=== PATIENT | male | born 1950 | race Caucasian/White ===

== ENCOUNTER 2019-09-15 09:39 | Inpatient (IN) | payer MEDICARE, OTHER, SELFPAY ==
[2019-05-25 14:38] VITALS: BMI 44.9
[2019-09-15 09:40] VITALS: BP 132/75; PULSE 90; RESP 16; TEMP 36.4; BMI 46.6
--- NOTE | 2019-09-15 10:01 | ED.DCSUM_ITS ---
History of Present Illness Chief Complaint: Lower Extremity Injury Informant: Patient Narrative: Reportedly the patient was sent from podiatry to be admitted into the hospital. Accompanying him is a note from the security specialist. The notes that he is a diabetic with coronary artery disease but no known peripheral vascular disease. He has a history of peripheral neuropathy. In May he was put on amoxicillin for infection of the second and third right toe. states it would form a ca llus get better get worse and due to COVID has not been wanting to be in the doctor's office. They were seen by primary care on Saturday and set up with an appointment today. Reportedly had x-rays in the office and the concern was for osteomyelitis of the second and third toe. Patient has not had any fevers. Past Medical History - Allergies and Home Meds Allergies/Adverse Reactions: Allergies acetaminophen [From Vicodin] Adverse Reaction (Severe, Verified 09/15/19 09:43) Hives hydrocodone [From Vicodin] Adverse Reaction (Severe, Verified 09/15/19 09:43) Hives ramipril [From Altace] Adverse Reaction (Severe, Verified 09/15/19 09:43) Fast HR valsartan [From Diovan] Adverse Reaction (Severe, Verified 09/15/19 09:43) Fast HR Jhrwxip-Qut-Zgh Reductase Inhibitor Adverse Reaction (Intermediate, Verified 09/15/19 09:43) Muscle aches Primary Care Physician: Krishna Reynolds MD [Primary Care Provider] - Smoking Status: Current every day smoker Review of Systems General: Denies: Chills, Fever, Sweats Eyes: Denies: Visual changes - bilaterally, Diplopia ENT: Denies: Rhinorrhea, Sore throat Cardiovascular: Denies: Chest pain, Palpitations Respiratory: Denies: Dyspnea, Cough, Dyspnea on exertion Gastrointestinal: Denies: Abdominal pain, Nausea, Vomiting, Diarrhea, Melena, Hematochezia Genitourinary: Denies: Dysuria, Hematuria, Frequency Musculoskeletal: Reports: Extremity Pain. Denies: Back pain Skin: Reports: Wounds. Denies: Rash Neurological: Denies: Headache, Weakness, Numbness Physical Exam Vital Signs/Narrative: Vital Signs Temp Pulse Resp BP 09/15/19 09:40 97.5 F L 90 16 132/75 H Inital Vital Signs reviewed: Yes General: Well nourished, Well developed, Obese, No Acute Distress Head: Normocephalic, Atraumatic Eyes: Perrl, EOMI ENT: Moist mucous membranes, No rhinorrhea Neck: Supple, Nontender Cardiovascular: Regular rate, No murmurs, Irregular Respiratory: No distress, CTA bilaterally, Chest nontender Abdomen: Soft, Nontender, Nondistended, Normal bowel sounds Back: Nontender, Normal Inspection Extremities: - - There is sparse leg hair of the lower extremities. The right second and third distal tips of the toes show recent debridement. (Betadine soaked gauze was reapplied) Skin: Normal color, No rash Neurological: Alert, Oriented x3, Cranial nerves II-XII grossly intact, Normal Strength, Normal Sensation Psychological: Normal affect, Normal Mood Diagnostic/Tx/Re-eval Laboratory Last Values WBC 5.1 K/mm3 (4.4-11.0) 09/15/19 10:13 RBC 4.75 M/mm3 (4.6-6.2) 09/15/19 10:13 Hgb 13.7 g/dL (13.0-16.5) 09/15/19 10:13 Hct 43.3 % (40-54) 09/15/19 10:13 MCV 91.2 fL (80-94) 09/15/19 10:13 MCH 28.8 pg (27.0-32.0) 09/15/19 10:13 MCHC 31.6 g/dL (32-36) L 09/15/19 10:13 RDW Std Deviation 44.2 fl (35.1-43.9) H 09/15/19 10:13 RDW Coeff of Rene 13.1 % (11.6-14.6) 09/15/19 10:13 Plt Count 264 K/mm3 (150-450) 09/15/19 10:13 MPV 9.4 fl (6.2-12.0) 09/15/19 10:13 Immature Gran % (Auto) 0.600 % (0.0-0.9) 09/15/19 10:13 Neut % (Auto) 60.3 % (47-70) 09/15/19 10:13 Lymph % (Auto) 26.4 % (19-41) 09/15/19 10:13 [place] % (Auto) 10.1 % (0-10) H 09/15/19 10:13 Eos % (Auto) 2.0 % (0-5) 09/15/19 10:13 Baso % (Auto) 0.6 % (0-1) 09/15/19 10:13 Absolute Neuts (auto) 3.1 X10^3/uL (2.0-7.7) 09/15/19 10:13 Absolute Lymphs (auto) 1.34 X10^3/uL (0.83-4.51) 09/15/19 10:13 Nucleated RBC % 0 % (0-5) 09/15/19 10:13 ESR 11 mm/hr (0-20) 09/15/19 10:13 PT 14.8 SECONDS (11.7-14.9) 09/15/19 10:13 INR 1.2 09/15/19 10:13 APTT 28.9 Seconds (24.1-36.2) 09/15/19 10:13 Sodium 139 mmol/L (136-145) 09/15/19 10:13 Potassium 4.1 mmol/L (3.5-5.1) 09/15/19 10:13 Chloride 102 mmol/L (98-107) 09/15/19 10:13 Carbon Dioxide 30.0 mmol/L (21.0-32.0) 09/15/19 10:13 Anion Gap 7 (5-15) 09/15/19 10:13 BUN 16 mg/dL (7-18) 09/15/19 10:13 Creatinine 0.85 mg/dL (0.70-1.30) 09/15/19 10:13 Estim Creat Clear Calc 74.02 ml/min 09/15/19 10:13 Est GFR (MDRD) Af Amer 114 mL/min (>60) 09/15/19 10:13 Est GFR (MDRD) Non-Af 95 mL/min (>60) 09/15/19 10:13 BUN/Creatinine Ratio 18.8 RATIO (10-20) 09/15/19 10:13 Glucose 74 mg/dL (74-106) 09/15/19 10:13 Hemoglobin A1c 6.0 % (3.8-5.6) H 09/15/19 10:13 Lactic Acid 1.7 mmol/L (0.4-1.9) 09/15/19 10:13 Calcium 9.7 mg/dL (8.5-10.1) 09/15/19 10:13 Total Bilirubin 0.50 mg/dL (0.20-1.00) 09/15/19 10:13 AST 23 U/L (15-37) 09/15/19 10:13 ALT 35 U/L (16-61) 09/15/19 10:13 Alkaline Phosphatase 62 U/L (45-117) 09/15/19 10:13 C-React Prot Ext Range 4.69 mg/L (0.0-3.0) H 09/15/19 10:13 Total Protein 7.6 g/dL (6.4-8.2) 09/15/19 10:13 Albumin 3.5 g/dL (3.2-5.0) 09/15/19 10:13 Globulin 4.1 g/dL (2.2-4.2) 09/15/19 10:13 Albumin/Globulin Ratio 0.9 RATIO (0.9-2.4) 09/15/19 10:13 Clinical Impression(s) from Imaging Studies Lower Extremity MRI 09/15/19 11:01 IMPRESSION: Bone edema of the second distal phalanx with corresponding decreased T1 bone marrow signal suggestive of osteomyelitis. Bone edema of the third distal phalanx without corresponding decreased T1 bone marrow signal, possibly representing early osteomyelitis. Muscle atrophy consistent with peripheral neuropathy. Electronically Signed: Tae Chavez MD at 13:27 EDT Tel , Service support , ED Disposition - Plan for ED Patient: Disposition: Acute Care Hospital [facility] Diagnosis: Osteomyelitis of third toe of right foot, Osteomyelitis of second toe of right foot, Type 2 diabetes mellitus Referrals: Krishna Reynolds MD [Primary Care Provider] -
[2019-09-15 10:29] LABS: Erythrocyte Sedimentation Rate 11 mm/hr (0-20)
[2019-09-15 10:31] LABS: Absolute Lymphocyte Count 1.34 X10^3/uL (0.83-4.51); Absolute Neutrophil Count 3.1 X10^3/uL (2.0-7.7); Basophil# 0.03 X10^3/uL; Basophil% 0.6 % (0-1); Hematocrit 43.3 % (40-54); Hemoglobin 13.7 g/dL (13.0-16.5); Lymphocyte # 1.34 X10^3/ul (4.0); Lymphocyte % 26.4 % (19-41); Mean Corp Hgb Conc 31.6 g/dL (32-36); Mean Corpuscular Hgb 28.8 pg (27.0-32.0); Mean Corpuscular Volume 91.2 fL (80-94); Mean Platelet Vol. 9.4 fl (6.2-12.0); Monocyte# 0.51 X10^3/uL; Monocyte% 10.1 % (0-10); NRBC Flagged by Analyzer 0 % (0-5); Neutrophil # 3.06 X10^3/uL (2.7-7.7); Neutrophil % 60.3 % (47-70); Platelet Count 264 K/mm3 (150-450); RBC Distribution Width CV 13.1 % (11.6-14.6); RBC Distribution Width SD 44.2 fl (35.1-43.9); Red Blood Count 4.75 M/mm3 (4.6-6.2); White Blood Count 5.1 K/mm3 (4.4-11.0)
[2019-09-15 10:37] LABS: International Normalized Ratio 1.2; Partial Thromboplast Time 28.9 Seconds (24.1-36.2); Prothrombin Time (Protime)PT. 14.8 SECONDS (11.7-14.9)
[2019-09-15 10:45] LABS: ALB/GLOB Ratio 0.9 RATIO (0.9-2.4); AST(SGOT) 23 U/L (15-37); Alanine Aminotransfer ALT/SGPT 35 U/L (16-61); Albumin, Serum 3.5 g/dL (3.2-5.0); Alkaline Phosphatase 62 U/L (45-117); Anion Gap 7 (5-15); BUN 16 mg/dL (7-18); BUN/Creat Ratio 18.8 RATIO (10-20); CRP 4.69 mg/L (0.0-3.0); Calcium,Total 9.7 mg/dL (8.5-10.1); Chloride 102 mmol/L (98-107); Creatinine, Serum 0.85 mg/dL (0.70-1.30); EST Glomerular Filtration Rate 95 mL/min (>60); Est Glom Filt Rate - Afr Amer 114 mL/min (>60); Estimated Creatinine Clearance 74.02 ml/min; Globulin 4.1 g/dL (2.2-4.2); Glucose 74 mg/dL (74-106); Lactic Acid 1.7 mmol/L (0.4-1.9); Potassium 4.1 mmol/L (3.5-5.1); Protein, Total 7.6 g/dL (6.4-8.2); Sodium Level 139 mmol/L (136-145)
--- NOTE | 2019-09-15 10:54 | NURSING ---
DR CROOKS FOR DR GUAMAN
--- NOTE | 2019-09-15 11:01 | MRI_ITS ---
STUDY: MRI RIGHT FOREFOOT WITHOUT CONTRAST REASON FOR EXAM: Open wounds for 3-4 months, evaluate for osteomyelitis of the second and third toes. TECHNIQUE: Standardized fat and water weighted pulse sequences were obtained in all 3 orthogonal planes. COMPARISON: None. FINDINGS: Normal metatarsophalangeal joint of the hallux. Normal tibial and fibular sesamoids, with normal sesamoids-first metatarsal articulations. Normal interphalangeal joint of the hallux. Normal proximal and distal phalanges of the great toe. Normal medial and lateral heads of the flexor hallucis brevis tendons. Normal flexor and extensor hallucis longus tendons. Normal second through fifth metatarsophalangeal (MTP) joints. Normal interphalangeal joints of the second through fifth toes. There is bone edema of the second distal phalanx (inversion recovery sagittal image 13) with decreased bone marrow signal (T1 sagittal image 13) suggestive of osteomyelitis. There is bone edema of the third distal phalanx (inversion recovery sagittal image 9) without decreased T1 bone marrow signal (T1 sagittal image 13), possibly representing early osteomyelitis. Normal phalanges of the fourth and fifth digits. There are hammertoe deformities of the lesser toes. Normal first through fourth intermetatarsal spaces. Normal flexor and extensor tendons of the second through fifth toes. Normal visualized metatarsi. There is fat replacement of the intrinsic muscles of the forefoot consistent with peripheral arthropathy. There is edema in the dorsal subcutis adipose space of the forefoot. There is no focal fluid collection to suggest soft tissue abscess. MRI/Lower Ext/No Jt/w/o IMPRESSION: Bone edema of the second distal phalanx with corresponding decreased T1 bone marrow signal suggestive of osteomyelitis. Bone edema of the third distal phalanx without corresponding decreased T1 bone marrow signal, possibly representing early osteomyelitis. Muscle atrophy consistent with peripheral neuropathy. Electronically Signed: Tae Chavez MD at 13:27 EDT Tel , Service support ,
[2019-09-15 11:23] VITALS: BP 123/82; PULSE 77; RESP 16; TEMP 37.1; O2SAT 97
--- NOTE | 2019-09-15 14:05 | NURSING ---
321 TERELETESKY OSTEOMYELITIS OF RT 2ND AND 3RD TOES
[2019-09-15 14:11] VITALS: BP 123/82; PULSE 77; RESP 16; TEMP 37.1; O2SAT 97
[2019-09-15 14:26] VITALS: BP 131/78; PULSE 92; RESP 18; TEMP 36.9; O2SAT 98; BMI 46.6
--- NOTE | 2019-09-15 15:47 | ART_ITS ---
Reason For Study: PVD Procedure A bilateral lower extremity continuous wave Doppler with analog waveform analysis,segmental pressures,and ankle brachial indexes without exercise. Left Segmental Pressures BOTTLE CLEANER and DPA are both noncompressible. Left brachial= 133mmHg. Left digit = 148 mmHg. The left dorsalis pedis waveforms are triphasic. The left posterior tibial artery waveforms are triphasic. Right Segmental Pressures BOTTLE CLEANER and DPA are both noncompressible. Right digit = 85. mmHg. The right dorsalis pedis waveforms are triphasic. The right posterior tibial artery waveforms are triphasic. Indices The right digital-brachial index is .64. The left digital-brachial index is 1.11. Interpretation Summary Non compressible bilateral posterior tibial and dorsalis pedis vessels making non-invasive interpretation less accurate. Doppler waveforms are triphasic bilaterally Volume pulse recordings are maintained bilaterally suggesting a more mild degree of large vessel occlusive disease Right digital waveforms are depressed consistent with small vessel disease--clinical correlation would be appropriate. Ordering Physician: Mikhail Hernandez Performed By: TOI GALEANA Radha
--- NOTE | 2019-09-15 15:58 | HP.PCM_ITS ---
Problem List (1) Osteomyelitis of third toe of right foot Status: Acute (2) Osteomyelitis of second toe of right foot Status: Acute (3) Pure hypercholesterolemia Status: Chronic (4) GERD (gastroesophageal reflux disease) Status: Chronic (5) Type 2 diabetes mellitus Status: Chronic (6) Essential hypertension Status: Chronic (7) Atherosclerotic heart disease of [place] coronary artery without angina pectoris Status: Chronic Qualifiers: [place] vs. 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 The patient is a 69 year old M who presents emergency room due to right second and third distal toe wounds. Patient states he initially noticed distal d iscoloration in April. He was referred to podiatry however due to COVID he was unable to have office visit with podiatry. His primary care provider placed him on oral antibiotics. He was seen today for his first podiatry appointment with Dr. Gary Chandler. Patient reports his toe wounds were debrided and he was then referred to the emergency room for further evaluation due to suspected osteomyelitis. He denies fever, chills. He has a history of neuropathy and denies any pain. He has a past medical history of CAD with history of PCI, hypertension, hyperlipidemia, paroxysmal atrial fibrillation, type 2 diabetes mellitus with peripheral neuropathy. Past Medical History Past Medical History (Chronic Problems): Chronic Problems (Last Reviewed 05/25/19 @ 14:43 by Brea Castañeda) Pure hypercholesterolemia (Chronic) GERD (gastroesophageal reflux disease) (Chronic) Type 2 diabetes mellitus (Chronic) Essential hypertension (Chronic) Atherosclerotic heart disease of [place] coronary artery without angina pectoris (Chronic) Presence of coronary angioplasty implant and graft (Chronic ~06/2007) PTCA with DILIA to CFX 2nd marginal 06/30 Presence of stent in coronary artery (Chronic ~06/2007) PTCA with DILIA to CFX 2nd marginal 06/30 Paroxysmal atrial fibrillation (Chronic) Left atrial enlargement (Chronic) Tachycardia (Chronic) 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) Medical History: Medical History (Last Reviewed 05/25/19 @ 14:43 by Brea Castañeda) Pure hypercholesterolemia (Chronic) E78.00 GERD (gastroesophageal reflux disease) (Chronic) K21.9 Type 2 diabetes mellitus (Chronic) E11.9 Essential hypertension (Chronic) I10 Atherosclerotic heart disease of [place] coronary artery without angina pectoris (Chronic) I25.10 Presence of stent in coronary artery (Chronic) Onset Date: ~06/2007 Z95.5 PTCA with DILIA to CFX 2nd marginal 06/30 Paroxysmal atrial fibrillation (Chronic) I48.0 Diabetes mellitus (Inactive) E11.9 Allergies acetaminophen [From Vicodin] Adverse Reaction (Severe, Verified 09/15/19 09:43) Hives hydrocodone [From Vicodin] Adverse Reaction (Severe, Verified 09/15/19 09:43) Hives ramipril [From Altace] Adverse Reaction (Severe, Verified 09/15/19 09:43) Fast HR valsartan [From Diovan] Adverse Reaction (Severe, Verified 09/15/19 09:43) Fast HR Jpeilfp-Gpa-Esq Reductase Inhibitor Adverse Reaction (Intermediate, Verified 09/15/19 09:43) Muscle aches Home Medications: Ambulatory Orders Medication Instructions Recorded ascorbic acid (vitamin C) 1,000 mg 1,000 mg PO DAILY tab 05/30/17 tablet aspirin 325 mg tablet 325 mg PO DAILY tab 05/30/17 glimepiride 4 mg tablet 4 mg PO BID tab 05/30/17 metformin 500 mg tablet 1,000 mg PO DAILY 05/30/17 nitroglycerin 0.4 mg sublingual 0.4 mg SUBLINGUAL Q5M PRN 05/30/17 tablet biotin 1 mg tablet 1 mg PO DAILY 05/25/19 insulin glargine 100 unit/mL (3 56 unit SC QHS ml 05/25/19 mL) subcutaneous pen omega-3 fatty acids 1,000 mg 3,000 mg PO DAILY cap 05/25/19 capsule Amlodipine Besylate [Norvasc] 5 mg PO DAILY 09/15/19 Doxazosin Mesylate 1 mg PO QHS 09/15/19 Lisinopril/Hydrochlorothiazide 1 tab PO BID 09/15/19 [Lisinopril-Hctz 20-12.5 mg Tab] Metformin HCl 1,500 mg PO DAILY 09/15/19 Metoprolol Tartrate [Lopressor 50 mg PO BID 09/15/19 (beta veronique)] Multivitamin with Minerals 1 tab PO DAILY 09/15/19 [Multiple Vitamin] Surgical History: Surgical History (Last Reviewed 09/15/19 @ 16:14 by DELANO Sterling) Presence of coronary angioplasty implant and graft (Chronic) Onset Date: ~06/2007 Z95.5 PTCA with DILIA to CFX 2nd marginal 06/30 History of tonsillectomy and adenoidectomy Z98.890 History of vasectomy Z98.52 Coronary angioplasty status (Inactive) Z98.61 PTCA with DILIA to CFX 2nd marginal paroxysmal atrial fib 06/30 Surgical History: - - Bilateral elbow surgery Psychiatric History: No pertinent psych hx Lives: Spouse/ Significant Other Smoking Status: Never smoker Tobacco Use: Chew Alcohol: Occasional Drugs: None - *Family History Maternal Family History: Family History (Last Reviewed 05/25/19 @ 14:43 by Brea Castañeda) Other Family history of CVA Family history of hyperlipidemia Family history of hypertension History Items: Heart Disease, Stroke Paternal Family History: Family History (Last Reviewed 05/25/19 @ 14:43 by Brea Castañeda) Other Family history of CVA Family history of hyperlipidemia Family history of hypertension History Items: Heart Disease Review of Systems Constitutional: Denies: Chills, Fever, Weight Change HEENT: Denies: Head Aches, Sinus Congestion, Sinus Drainage Cardiovascular: Denies: Chest Pain, Palpitations Respiratory: Denies: Cough, Shortness of breath at rest, Sputum production Gastrointestinal: Denies: Abdominal Pain, Nausea, Vomiting Genitourinary: Denies: Dysuria Musculoskeletal: Denies: Joint Pain, Joint Tenderness Skin: Reports: Wounds - Right second and third distal toes. Denies: Rash Neurological: Denies: Numbness, Tingling, Focal weakness Psychiatric: Denies: Anxiety, Depression, Homicidal Ideations, Suicidal Ideations Hematologic/ Lymphatic: Denies: Easy Bruising, Easy Bleeding VTE Information - Inpt Only VTE Present on Admission: No VTE Mechan Device Prophylaxis: None VTE Pharm Prophylaxis ordered?: Yes Patient Problems: Active and Suspected Problems (Last Reviewed 05/25/19 @ 14:43 by Brea Castañeda) Osteomyelitis of third toe of right foot (Acute) Osteomyelitis of second toe of right foot (Acute) - Physical Exam Vitals/I&O's: Vital Signs Temp Pulse Resp BP Pulse Ox 98.5 F 92 18 131/78 H 98 09/15/19 14:26 09/15/19 14:26 09/15/19 14:26 09/15/19 14:26 09/15/19 14:26 Oxygen Delivery Method Room Air Weight: 289 lb Body Mass Index (BMI) 46.6 Intake and Output for Last 24 Hours 09/13/19 09/14/19 09/15/19 23:59 23:59 23:59 Intake Total 640 / 640 Balance 640 / 640 General: Alert, Oriented x3, Cooperative HEENT: Atraumatic, PERRLA, EOMI, Normocephalic Neck: Supple, No JVD, Negative Carotid Bruits Lungs: Clear to auscultation, Diminished Cardiovascular: Regular rate, No murmurs Abdomen: Bowel Sounds Present, Soft, Non Tender, Non-Distended, Obese Extremities: No clubbing, No cyanosis, No edema, Capillary Refill Less than 3 Seconds Skin: No rashes, No breakdown, - - Right second and third toe wounds. Musculoskeletal: No Tenderness to Palpation of Joints or Extremities Neurological: Cranial nerves II-XII grossly intact, Neuro grossly intact Psych/Mental Status: Normal Affect, Appropriate Laboratory Results 09/15/19 10:13: WBC 5.1, RBC 4.75, Hgb 13.7, Hct 43.3, MCV 91.2, MCH 28.8, MCHC 31.6 L, RDW Std Deviation 44.2 H, RDW Coeff of Rene 13.1, Plt Count 264, MPV 9.4, Immature Gran % (Auto) 0.600, Neut % (Auto) 60.3, Lymph % (Auto) 26.4, [place] % (Auto) 10.1 H, Eos % (Auto) 2.0, Baso % (Auto) 0.6, Absolute Neuts (auto) 3.1, Absolute Lymphs (auto) 1.34, Nucleated RBC % 0, ESR 11 09/15/19 10:13: PT 14.8, INR 1.2, APTT 28.9 09/15/19 10:13: Sodium 139, Potassium 4.1, Chloride 102, Carbon Dioxide 30.0, Anion Gap 7, BUN 16, Creatinine 0.85, Estim Creat Clear Calc 74.02, Est GFR (MDRD) Af Amer 114, Est GFR (MDRD) Non-Af 95, BUN/Creatinine Ratio 18.8, Glucose 74, Calcium 9.7, Total Bilirubin 0.50, AST 23, ALT 35, Alkaline Phosphatase 62, C-React Prot Ext Range 4.69 H, Total Protein 7.6, Albumin 3.5, Globulin 4.1, Albumin/Globulin Ratio 0.9 09/15/19 10:13: Lactic Acid 1.7 09/15/19 10:13: Hemoglobin A1c 6.0 H Current Medications Acetaminophen (Tylenol) 650 mg PO Q6H PRN PRN PRN Reason: Pain Score 1-10/Temp > 100.7 F Amlodipine Besylate (Norvasc) 5 mg PO DAILY [facility] Ascorbic Acid (Vitamin C) 1,000 mg PO DAILY [facility] Aspirin (Aspirin) 325 mg PO DAILYCM [facility] Dextrose (D50w Syringe) 0 gm IV X1 PRN; Protocol PRN Reason: Hypoglycemia Doxazosin Mesylate (Cardura) 1 mg PO QHS [facility] Glimepiride (Amaryl) 4 mg PO BIDCM [facility] Glucagon () 1 mg IM .X1 PRN PRN Reason: Hypoglycemia Heparin Sodium (Porcine) (Heparin Na) 5,000 unit SC Q12 [facility] Hydrochlorothiazide () 12.5 mg PO DAILY [facility] Piperacillin Sod/Tazobactam (Sod 3.375 gm/ Sodium Chloride) 50 mls @ 12.5 mls/hr IV Q8 [facility] Vancomycin IV Pharmacy to Dose (1 ea/ Sodium Chloride) 500 mls @ 250 mls/hr IV X1 PRN; Protocol PRN Reason: Rx to Dose Insulin Human Lispro (Humalog Kwikpen (Bkc)) 0 unit SC ACHS [facility]; Protocol Lisinopril (Zestril) 20 mg PO DAILY [facility] Metformin HCl (Glucophage) 1,000 mg PO DAILYCM [facility] Metformin HCl (Glucophage) 1,500 mg PO DINNER [facility] Metoprolol Tartrate (Lopressor (Beta Veronique)) 50 mg PO BID [facility] Assessment/Plan All Active Problems (Last Reviewed 05/25/19 @ 14:43 by Brea Castañeda) Osteomyelitis of third toe of right foot (Acute) Osteomyelitis of second toe of right foot (Acute) 1. Osteomyelitis of second and third toe, right foot-Dr. Gary Chandler consulted with plan for partial amputation. Continue IV vancomycin and IV Zosyn. Wound and blood cultures pending. Afebrile, no leukocytosis. FELTON/lower extremity arterial exam ordered. ID consulted. Obtain pre-op EKG. 2. CAD with history of PCI-follows with Dr. Deluna. Continue aspirin. Refuses statin. Continue beta-veronique. Patient underwent echo and stress test 2016 which were unremarkable. EF per echo 60%. 3. Hypertension-stable, continue amlodipine, lisinopril, HCTZ, metoprolol regimen. 4. Hyperlipidemia-refuses statin. 5. Paroxysmal atrial fibrillation-has refused anticoagulation in the past. Continue aspirin 325 mg daily. Continue metoprolol. 6. Type 2 diabetes mellitus with peripheral neuropathy-hold oral regimen. Accu- Cheks with sliding scale insulin. 7. Suspected JAMES-patient reports he has refused sleep study in the past as he will not wear a mask. Encouraged sleep study as outpatient. 8. Obesity-encouraged diet lifestyle modifications. DVT prophylaxis- Heparin sc This patient was seen by DELANO Sterling under the supervision of Dr. Hernandez.
--- NOTE | 2019-09-15 16:08 | PCM.RX.CS ---
Consult Pharmacy has been consulted to manage selected antiobiotic: Vancomycin Type of Consult: New start Suspected Infection: Osteomyelitis Labs: Sodium 139 mmol/L (136-145) 09/15/19 10:13 Potassium 4.1 mmol/L (3.5-5.1) 09/15/19 10:13 Chloride 102 mmol/L (98-107) 09/15/19 10:13 Carbon Dioxide 30.0 mmol/L (21.0-32.0) 09/15/19 10:13 Anion Gap 7 (5-15) 09/15/19 10:13 BUN 16 mg/dL (7-18) 09/15/19 10:13 Creatinine 0.85 mg/dL (0.70-1.30) 09/15/19 10:13 Est GFR (MDRD) Af Amer 114 mL/min (>60) 09/15/19 10:13 Est GFR (MDRD) Non-Af 95 mL/min (>60) 09/15/19 10:13 BUN/Creatinine Ratio 18.8 RATIO (10-20) 09/15/19 10:13 Glucose 74 mg/dL (74-106) 09/15/19 10:13 Goal Trough: 15-20 mcg/mL Pharmacy Plan for Drug Dosing: NEW START IV VANCOMYCIN Consulting Physician: Mary Indication: Rule out osteomyelitis of the 2nd/3rd right toe Goal Trough: 15-20 SrCr: 0.85 CrCl: 105 mL/min (using AdjBW = 90.7kg) Comments: Vacnomycin 2g IV x1 dose administered in the ED 09/15/19 @1316 Vancomcyin Dose: 1500mg IV Q8hr to start 09/15/19 @2100 Pending Level: prior to 4th dose per protocol 09/16/19 @1230 Pharmacy Service will continue to monitor and adjust dosing as required.
--- NOTE | 2019-09-15 16:15 | PCM.CONS.GEN ---
Reason for Consult Date of Consultation: 09/15/19 Reason for Consultation: 1. Diabetes mellitus type 2 with polyneuropathy. 2. Diabetes mellitus type 2 with foot ulcer. 3. Nonpressure ulcer right second toe down to including level of bone with necrosis of bone. 4. Nonpressure ulcer right third toe toe down to including level of bone with necrosis of bone. 5. Peripheral neuropathy History of Present Illness: The patient is a 69 year old M with a past medical history significant of diabetes mellitus type 2 polyneuropathy, peripheral vascular disease, atrial fibrillation, and other comorbidities who presented to my office today, September 15, 2019 with complaints of pain and swelling of his right foot second and third toes. Patient presented with his , who was present at bedside during entire office visit. After verbal questioning, patient and patient's stated that the patient is a diabetic, and began to experience pain in his second and third toes of his right foot approximately 1 month ago. According to the patient's , there are wounds present on the second and third toe. There was drainage over this past month, and patient presented to his primary care physician, who prescribed him oral antibiotics. Patient's states that she has been performing local wound care. Due to the increased swelling and increased pain, they came in today for further evaluation. According to the patient, he did not want to come to the office any earlier because of coronavirus. Patient states that his right foot second and third toes are painful. After seeing the patient in the office and performing a debridement of the right foot second and third toe, the distal phalanx of each of the toes appeared exposed with evidence of necrosis. I discussed with them at that time that due to the wounds that are present and the suspicion of acute osteomyelitis, I recommended that they be sent to the emergency department for admission and work-up of osteomyelitis. They were agreeable at that time, and reported to the emergency department after the office visit. A wound culture was taken in the office, which they brought with them for evaluation. Laboratory analysis was performed while in the emergency department, revealing no signs of systemic infection. A MRI was performed of the right foot while at the emergency department, revealing osteomyelitis of the distal phalanges of the second and third toe of the right foot. Due to these findings, the patient was admitted for further evaluation. After verbal questioning, patient admits to improved pain of his right foot. Patient denies any other acute complaints at this time. Currently, patient denies fever, chills, nausea, vomiting, shortness of breath, chest pain. Patient denies right calf pain. [] Past Medical History Past Medical History (Chronic Problems): Chronic Problems (Last Reviewed 05/25/19 @ 14:43 by Brea Castañeda) Pure hypercholesterolemia (Chronic) GERD (gastroesophageal reflux disease) (Chronic) Type 2 diabetes mellitus (Chronic) Essential hypertension (Chronic) Atherosclerotic heart disease of [place] coronary artery without angina pectoris (Chronic) Presence of coronary angioplasty implant and graft (Chronic ~06/2007) PTCA with DILIA to CFX 2nd marginal 06/30 Presence of stent in coronary artery (Chronic ~06/2007) PTCA with DILIA to CFX marginal 06/30 Paroxysmal atrial fibrillation (Chronic) Left atrial enlargement (Chronic) Tachycardia (Chronic) Other long term acute care registered nurse (current) drug therapy (Chronic) Medical History: Medical History (Last Reviewed 05/25/19 @ 14:43 by Brea Castañeda) Pure hypercholesterolemia (Chronic) E78.00 GERD (gastroesophageal reflux disease) (Chronic) K21.9 Type 2 diabetes mellitus (Chronic) E11.9 Essential hypertension (Chronic) I10 Atherosclerotic heart disease of [place] coronary artery without angina pectoris (Chronic) I25.10 Presence of stent in coronary artery (Chronic) Onset Date: ~06/2007 Z95.5 PTCA with DILIA to CFX marginal 06/30 Paroxysmal atrial fibrillation (Chronic) I48.0 Diabetes mellitus (Inactive) E11.9 Allergies hydrocodone [From Vicodin] Adverse Reaction (Severe, Verified 09/15/19 09:43) Hives ramipril [From Altace] Adverse Reaction (Severe, Verified 09/15/19 09:43) Fast HR valsartan [From Diovan] Adverse Reaction (Severe, Verified 09/15/19 09:43) Fast HR Jnvpvfe-Umb-Rom Reductase Inhibitor Adverse Reaction (Intermediate, Verified 09/15/19 09:43) Muscle aches Home Medications: Ambulatory Orders Medication Instructions Recorded ascorbic acid (vitamin C) 1,000 mg 1,000 mg PO DAILY tab 05/30/17 tablet aspirin 325 mg tablet 325 mg PO DAILY tab 05/30/17 glimepiride 4 mg tablet 4 mg PO BID tab 05/30/17 metformin 500 mg tablet 1,000 mg PO DAILY 05/30/17 nitroglycerin 0.4 mg sublingual 0.4 mg SUBLINGUAL Q5M PRN 05/30/17 tablet biotin 1 mg tablet 1 mg PO DAILY 05/25/19 insulin glargine 100 unit/mL (3 56 unit SC QHS ml 05/25/19 mL) subcutaneous pen omega-3 fatty acids 1,000 mg 3,000 mg PO DAILY cap 05/25/19 capsule Amlodipine Besylate [Norvasc] 5 mg PO DAILY 09/15/19 Doxazosin Mesylate 1 mg PO QHS 09/15/19 Lisinopril/Hydrochlorothiazide 1 tab PO BID 09/15/19 [Lisinopril-Hctz 20-12.5 mg Tab] Metformin HCl 1,500 mg PO DAILY 09/15/19 Metoprolol Tartrate [Lopressor 50 mg PO BID 09/15/19 (beta veronique)] Multivitamin with Minerals 1 tab PO DAILY 09/15/19 [Multiple Vitamin] Surgical History: Surgical History (Last Reviewed 09/15/19 @ 16:14 by DELANO Sterling) Presence of coronary angioplasty implant and graft (Chronic) Onset Date: ~06/2007 Z95.5 PTCA with DILIA to CFX 2nd marginal 06/30 History of tonsillectomy and adenoidectomy Z98.890 History of vasectomy Z98.52 Coronary angioplasty status (Inactive) Z98.61 PTCA with DILIA to CFX 2nd marginal paroxysmal atrial fib 06/30 Surgical History: - - cardiac stent placement Psychiatric History: No pertinent psych hx Lives: Spouse/ Significant Other Smoking Status: Never smoker Tobacco Use: Chew Alcohol: Occasional Drugs: None Review of Systems Constitutional: Denies: Anorexia, Chills, Fever, Night Sweats Eyes: Denies: Blurred vision, Cataracts HEENT: Denies: Difficulty Hearing, Difficulty Swallowing, Dysphasia, Ear Pain, Eye Pain, Head Aches Cardiovascular: Denies: Chest Pain, Claudication, Chest Pressure, Chest Tightness, Edema Respiratory: Reports: Cough, Shortness of breath upon exertion Gastrointestinal: Denies: Abdominal Pain, Constipation, Diarrhea, Dyspepsia Genitourinary: Denies: Dysuria, Frequency Musculoskeletal: Reports: Foot Pain - right foot second and third toes Skin: Reports: Lesions - right foot second and third toe, Wounds - right foot second and third toe Neurological: Reports: Balance problems, Numbness - B/L peripheral neuropathy Psychiatric: Denies: Anxiety, Depression Endocrine: Reports: Polydipsia, Polyuria Patient Problems: Active and Suspected Problems (Last Reviewed 05/25/19 @ 14:43 by Brea Castañeda) Osteomyelitis of third toe of right foot (Acute) Osteomyelitis of second toe of right foot (Acute) Subjective: Patient seen at bedside resting comfortably. Patient presents with his , who is present at bedside. Patient denies any pain to his right second and third toes at this time. Patient states that since being admitted, has been started on IV antibiotics. Patient denies any other acute complaints at this time. Currently, patient denies fever, chills, nausea, vomiting, shortness of breath, chest pain. Patient denies right calf pain. Objective: Lower extremity physical exam: Vascular: Nonpalpable dorsalis pedis and posterior tibial pulse bilaterally. Capillary fill time is less than 5 seconds to all digits. Temperature gradient is within normal limits bilaterally. Minimal nonpitting edema surrounding the second and third digit of the right foot. No other areas of edema noted. Neurological: Gross and protective sensation are absent from the digits up to the ankle bilaterally and diminished from the ankle to the tibial tuberosity bilaterally. Musculoskeletal: Muscle strength is 5 out of 5 bilaterally of all crural compartments. 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 Right second toe: Ulceration noted on the plantar distal aspect of the second digit of the right foot. Ulceration has hyperkeratotic edges with a fibro-granular base. Of the ulceration, there is no fluctuance, no crepitus, but positive malodor. There is positive serosanguineous drainage. There is no purulence. There is edema and periwound erythema. There is positive probing to the distal phalanx. There is tunneling to the plantar aspect of the distal phalanx. There is no undermining and no tracking. Right third toe: Ulceration noted on the plantar distal aspect of the third digit of the right foot. Ulceration has hyperkeratotic edges with a fibro-granular base. Of the ulceration, there is no fluctuance, no crepitus, but positive malodor. There is positive serosanguineous drainage. There is no purulence. There is edema and periwound erythema. There is positive probing to the distal phalanx. There is tunneling to the plantar aspect of the distal phalanx. There is no undermining and no tracking. - Physical Exam Vitals/I&O's: Vital Signs Temp Pulse Resp BP Pulse Ox 98.5 F 92 18 131/78 H 98 09/15/19 14:26 09/15/19 14:26 09/15/19 14:26 09/15/19 14:26 09/15/19 14:26 Oxygen Delivery Method Room Air Weight: 131.088 kg Body Mass Index (BMI) 46.6 Intake and Output for Last 24 Hours 09/13/19 09/14/19 09/15/19 23:59 23:59 23:59 Intake Total 640 / 640 Balance 640 / 640 General: Alert, Oriented x3, Cooperative, No apparent distress HEENT: Atraumatic, PERRLA Oral: Moist Mucosa Neck: Supple Lungs: Clear to auscultation, Normal air movement, Rhonchi Cardiovascular: Irregular Rate Abdomen: Bowel Sounds Present, Soft, Obese Extremities: No Calf Tenderness, Diminished Peripheral Pulses Skin: Ulcer/ Wound - as described above Musculoskeletal: No Tenderness to Palpation of Joints or Extremities Neurological: Motor Exam 5/5 strength throughout, - - Sensation to B/L lower extremities absent to light touch and pain Psych/Mental Status: Alert and oriented to time, place, person, mood and affect Laboratory Results 09/15/19 10:13: WBC 5.1, RBC 4.75, Hgb 13.7, Hct 43.3, MCV 91.2, MCH 28.8, MCHC 31.6 L, RDW Std Deviation 44.2 H, RDW Coeff of Rene 13.1, Plt Count 264, MPV 9.4, Immature Gran % (Auto) 0.600, Neut % (Auto) 60.3, Lymph % (Auto) 26.4, [place] % (Auto) 10.1 H, Eos % (Auto) 2.0, Baso % (Auto) 0.6, Absolute Neuts (auto) 3.1, Absolute Lymphs (auto) 1.34, Nucleated RBC % 0, ESR 11 09/15/19 10:13: PT 14.8, INR 1.2, APTT 28.9 09/15/19 10:13: Sodium 139, Potassium 4.1, Chloride 102, Carbon Dioxide 30.0, Anion Gap 7, BUN 16, Creatinine 0.85, Estim Creat Clear Calc 74.02, Est GFR (MDRD) Af Amer 114, Est GFR (MDRD) Non-Af 95, BUN/Creatinine Ratio 18.8, Glucose 74, Calcium 9.7, Total Bilirubin 0.50, AST 23, ALT 35, Alkaline Phosphatase 62, C-React Prot Ext Range 4.69 H, Total Protein 7.6, Albumin 3.5, Globulin 4.1, Albumin/Globulin Ratio 0.9 09/15/19 10:13: Lactic Acid 1.7 09/15/19 10:13: Hemoglobin A1c 6.0 H STUDY: MRI RIGHT FOREFOOT WITHOUT CONTRAST taken on 09/15/2019 REASON FOR EXAM: Open wounds for 3-4 months, evaluate for osteomyelitis of the second and third toes. TECHNIQUE: Standardized fat and water weighted pulse sequences were obtained in all 3 orthogonal planes. COMPARISON: None. FINDINGS: Normal metatarsophalangeal joint of the hallux. Normal tibial and fibular sesamoids, with normal sesamoids-first metatarsal articulations. Normal interphalangeal joint of the hallux. Normal proximal and distal phalanges of the great toe. Normal medial and lateral heads of the flexor hallucis brevis tendons. Normal flexor and extensor hallucis longus tendons. Normal second through fifth metatarsophalangeal (MTP) joints. Normal interphalangeal joints of the second through fifth toes. There is bone edema of the second distal phalanx (inversion recovery sagittal image 13) with decreased bone marrow signal (T1 sagittal image 13) suggestive of osteomyelitis. There is bone edema of the third distal phalanx (inversion recovery sagittal image 9) without decreased T1 bone marrow signal (T1 sagittal image 13), possibly representing early osteomyelitis. Normal phalanges of the fourth and fifth digits. There are hammertoe deformities of the lesser toes. Normal first through fourth intermetatarsal spaces. Normal flexor and extensor tendons of the second through fifth toes. Normal visualized metatarsi. There is fat replacement of the intrinsic muscles of the forefoot consistent with peripheral arthropathy. There is edema in the dorsal subcutis adipose space of the forefoot. There is no focal fluid collection to suggest soft tissue abscess. MRI/Lower Ext/No Jt/w/o IMPRESSION: Bone edema of the second distal phalanx with corresponding decreased T1 bone marrow signal suggestive of osteomyelitis. Bone edema of the third distal phalanx without corresponding decreased T1 bone marrow signal, possibly representing early osteomyelitis. Muscle atrophy consistent with peripheral neuropathy. Electronically Signed: Tae Chavez MD at 13:27 EDT Tel , Service support , Current Medications Acetaminophen (Tylenol) 650 mg PO Q6H PRN PRN PRN Reason: Pain Score 1-10/Temp > 100.7 F Amlodipine Besylate (Norvasc) 5 mg PO DAILY [facility] Ascorbic Acid (Vitamin C) 1,000 mg PO DAILY [facility] Aspirin (Aspirin) 325 mg PO DAILYCM [facility] Dextrose (D50w Syringe) 0 gm IV X1 PRN; Protocol PRN Reason: Hypoglycemia Doxazosin Mesylate (Cardura) 1 mg PO QHS [facility] Glimepiride (Amaryl) 4 mg PO BIDCM [facility] Glucagon () 1 mg IM .X1 PRN PRN Reason: Hypoglycemia Heparin Sodium (Porcine) (Heparin Na) 5,000 unit SC Q12 [facility] Hydrochlorothiazide () 12.5 mg PO DAILY [facility] Piperacillin Sod/Tazobactam (Sod 3.375 gm/ Sodium Chloride) 50 mls @ 12.5 mls/hr IV Q8 [facility] Vancomycin IV Pharmacy to Dose (1 ea/ Sodium Chloride) 500 mls @ 250 mls/hr IV PRN PRN; Protocol PRN Reason: Rx to Dose Vancomycin HCl 1,500 mg/ (Sodium Chloride) 530 mls @ 250 mls/hr IV Q8H [facility] Insulin Human Lispro (Humalog Kwikpen (Bkc)) 0 unit SC ACHS [facility]; Protocol Lisinopril (Zestril) 20 mg PO DAILY [facility] Metformin HCl (Glucophage) 1,000 mg PO DAILYCM [facility] Metformin HCl (Glucophage) 1,500 mg PO DINNER [facility] Metoprolol Tartrate (Lopressor (Beta Veronique)) 50 mg PO BID [facility] Assessment/Plan All Active Problems (Last Reviewed 05/25/19 @ 14:43 by Brea Castañeda) Osteomyelitis of third toe of right foot (Acute) Osteomyelitis of second toe of right foot (Acute) This is a 69-year-old male with a past medical history significant of diabetes mellitus type 2 with polyneuropathy who was admitted to [facility] for acute osteomyelitis of the second and third toe of his right foot. Plan: Patient chart reviewed and patient evaluated. Full discussion had with the patient and the patient's about the patient's current clinical condition. MRI was reviewed with them in detail. I discussed with him that along with my clinical findings of evidence of bone present, MRI does show that there is osteomyelitis of the distal phalanx of the second and third digit of the right foot. I discussed with the patient and his the etiology of this along with the nature of the disease. I discussed with the patient and the that there are 2 options for this. #1 would be a long-term antibiotics and to treat his condition conservatively with local wound care. I discussed with them that this may not fully eradicate the bacteria that is present. Option #2 would be surgical intervention for a partial amputation of the second and third digits of the right foot. I discussed with both of them that the surgery, in essence, would remove the infected bone and decrease change of reoccurrence. I discussed the risks and benefits of both conservative and surgical interventions for the patient's condition. Due to the infection that is present, I recommended surgical intervention. Patient and patient's are agreeable to surgical intervention. Prior to surgical intervention, I would like noninvasive vascular studies performed of the bilateral lower extremities to assess potential healing postoperatively. I recommend the continuation of broad-spectrum IV antibiotics. A consultation was placed to Dr. Manning for further antibiotic management. At this time, we will likely perform surgery on September 16, pending noninvasive vascular evaluation. At this time, a dressing was placed on the right foot. Dressing is to be kept clean, dry, intact until further evaluation. At this time, I recommend the patient weight-bear as tolerated in the postoperative shoe at this time. Patient does have a postoperative shoe at bedside. We will await the laboratory as well as from the wound culture that was taken in the office as well. Patient and patient's displayed verbal understanding to all written and oral instructions at this time. They are agreeable to the current treatment plan at this time. All their questions were answered to their satisfaction and all their concerns were addressed. I will continue to follow patient closely and update accordingly, and will likely place preoperative orders tomorrow, September 15. Thank you very much for the consultation and allowing me to take part in the care of your patient. Office Visits / Consults: [id number] IP Consult L3
[2019-09-15 16:16] LABS: Bedside Glucose 107 mg/dL (70-110)
--- NOTE | 2019-09-15 17:43 | EKG12_ITS ---
Test Reason : PRE-OP Blood Pressure : / mmHG Vent. Rate : 082 BPM Atrial Rate : 055 BPM P-R Int : 000 ms QRS Dur : 100 ms QT Int : 344 ms P-R-T Axes : 000 034 014 degrees QTc Int : 401 ms Atrial fibrillation Abnormal ECG When compared with ECG of 26-NOV-2002 11:36, Atrial fibrillation has replaced Sinus rhythm Confirmed by MAGGI CORCORAN ([id number]), book editor MENA SCHMITZ ([id number]) on 09/22/2019 11:31:22 AM Referred By: VALERIY Confirmed By:MAGGI CORCORAN
[2019-09-15 17:50] VITALS: PULSE 92
[2019-09-15] MEDS: Glimepiride 4 MG Tablet PO (17:50)
[2019-09-15] MEDS: metFORMIN HCl 500 MG Tablet 1500 MG PO (17:50)
[2019-09-15] MEDS: Metoprolol Tartrate 50 MG Tablet PO (17:50)
[2019-09-15 19:55] VITALS: BP 121/71; PULSE 81; RESP 18; TEMP 36.8; O2SAT 96
[2019-09-15] MEDS: Acetaminophen 325 MG Tablet 650 MG PO (19:57)
[2019-09-15] MEDS: Doxazosin 1 MG Tablet PO (21:18)
[2019-09-15] MEDS: Heparin Injection (Vial) 5,000 UNIT/ML VIAL 5000 UNIT SC (21:24)
[2019-09-15 21:25] LABS: Bedside Glucose 99 mg/dL (70-110)
[2019-09-16] MEDS: Acetaminophen 325 MG Tablet 650 MG PO (02:16)
[2019-09-16 02:20] VITALS: BP 153/97; PULSE 97; RESP 16; TEMP 36.6; O2SAT 96
[2019-09-16 06:55] LABS: Bedside Glucose 114 mg/dL (70-110)
[2019-09-16] MEDS: Aspirin 325 MG Tablet PO (07:47)
[2019-09-16] MEDS: Glimepiride 4 MG Tablet PO ×2 (07:47→16:52)
[2019-09-16 07:48] VITALS: PULSE 100
[2019-09-16] MEDS: amLODIPine 5 MG Tablet PO (07:48)
[2019-09-16] MEDS: Heparin Injection (Vial) 5,000 UNIT/ML VIAL 5000 UNIT SC ×2 (07:48→22:43)
[2019-09-16] MEDS: Metoprolol Tartrate 50 MG Tablet PO ×2 (07:48→22:48)
[2019-09-16] MEDS: hydroCHLOROthiazide 12.5mg 12.5 MG PO (07:48)
[2019-09-16] MEDS: Ascorbic Acid 500 MG Tablet 1000 MG PO (07:49)
[2019-09-16] MEDS: Lisinopril 20 MG Tablet PO (07:49)
[2019-09-16 08:20] VITALS: BP 150/87; PULSE 100; RESP 18; TEMP 36.4; O2SAT 98
--- NOTE | 2019-09-16 11:05 | CASEMGMT ---
[facility] Face to Face with patient for initial transition planning/care coordination assessment. RN CM introduced self and role at [facility]. Patient sitting in chair, alert and oriented, at bedside. Patient willing to participate in assessment and is able to answer all questions appropriately. Care providers, pharmacy, and demographics verified. Patient wishes to discharge home, with possible HHC or SNF pending course of treatment. Patient states he has no further needs or concerns at this time. CM to follow for discharge planning needs that may arise. PCP: Rodolfo Specialists: Aruna Chanlder maple products maker; Regi dolly driver [facility]: yes Living Will/HPOA: yes, HPOA Jessica Uribe LNOK: Living Arrangements: Patient lives with in a condo with no steps to enter the home. Patient is independent at home Transportation: self/ DME/HHC: Patient has walker, cane, raised toilet, shower chair, lift chair, and grab bars. Patient denies previous HHC. Disposition Plan: TBD by course of treatment. HHC vs SNF Lindy OCHOA, RN, CM
[2019-09-16 11:30] LABS: Bedside Glucose 175 mg/dL (70-110)
[2019-09-16] MEDS: Insulin Lispro 100 UNIT/ML INSULN.PEN SC (11:32)
--- NOTE | 2019-09-16 12:47 | PCM.PROGNOTE ---
<Demi Leon - Last Filed: 09/16/19 12:47> Patient Problems: Active and Suspected Problems (Last Reviewed 05/25/19 @ 14:43 by Brea Castañeda) Osteomyelitis of third toe of right foot (Acute) Osteomyelitis of second toe of right foot (Acute) Subjective: Patient seen and examined. Complains of 2 episodes of diarrhea. States he is not getting his medications as he takes them at home. Discussed which medications he is concerned about and he states we are messing with his insulin. - Physical Exam Vitals/I&O's: Vital Signs Temp Pulse Resp BP Pulse Ox 97.5 F L 100 18 150/87 H 98 09/16/19 08:20 09/16/19 08:20 09/16/19 08:20 09/16/19 08:20 09/16/19 08:20 Oxygen Delivery Method Room Air Weight: 289 lb Body Mass Index (BMI) 46.6 Intake and Output for Last 24 Hours 09/14/19 09/15/19 09/16/19 23:59 23:59 23:59 Intake Total 1170 / 1490 1407.25 / 1407.25 Balance 1170 / 1490 1407.25 / 1407.25 General: Alert, Oriented x3, Cooperative HEENT: Atraumatic, PERRLA, EOMI, Normocephalic Neck: Supple, No JVD, Negative Carotid Bruits Lungs: Clear to auscultation, Normal air movement Cardiovascular: Regular rate, No murmurs Abdomen: Bowel Sounds Present, Soft, Non Tender, Non-Distended, Obese Extremities: No clubbing, No cyanosis, No edema, Capillary Refill Less than 3 Seconds Skin: No rashes, No breakdown, - - Right second and third toe wounds. Musculoskeletal: No Tenderness to Palpation of Joints or Extremities Neurological: Cranial nerves II-XII grossly intact, Neuro grossly intact Psych/Mental Status: Normal Affect, Appropriate Microbiology Past 72 Hours 09/15/19 09:00 Wound - Toe Gram Stain - Final 09/15/19 09:00 Wound - Toe Wound Culture - Preliminary Staphylococcus aureus Gram positive organism 09/15/19 10:20 Blood Culture (Wb) - Anticubital Left Blood Culture - Preliminary No growth in 48 hours. 09/15/19 10:13 Blood Culture (Wb) - Anticubital Right Blood Culture - Preliminary No growth in 48 hours. Laboratory Results 09/15/19 16:07: POC Glucose 107 09/15/19 21:12: POC Glucose 99 09/16/19 06:40: POC Glucose 114 H 09/16/19 11:21: POC Glucose 175 H Current Medications Acetaminophen (Tylenol) 650 mg PO Q6H PRN PRN PRN Reason: Pain Score 1-10/Temp > 100.7 F Last Admin: 09/16/19 02:16 Dose: 650 mg Documented by: Amlodipine Besylate (Norvasc) 5 mg PO DAILY [facility] Last Admin: 09/16/19 07:48 Dose: 5 mg Documented by: Ascorbic Acid (Vitamin C) 1,000 mg PO DAILY [facility] Last Admin: 09/16/19 07:49 Dose: 1,000 mg Documented by: [facility]) [facility] Last Admin: 09/16/19 07:47 Dose: 325 mg Documented by: Dextrose (D50w Syringe) 0 gm IV X1 PRN; Protocol PRN Reason: Hypoglycemia Doxazosin Mesylate (Cardura) 1 mg PO QHS [facility] Last Admin: 09/15/19 21:18 Dose: 1 mg Documented by: Glimepiride (Amaryl) [facility] Last Admin: 09/16/19 07:47 Dose: 4 mg Documented by: Glucagon () 1 mg IM .X1 PRN PRN Reason: Hypoglycemia Heparin Sodium (Porcine) (Heparin Na) 5,000 unit SC Q12 [facility] Last Admin: 09/16/19 07:48 Dose: 5,000 unit Documented by: Hydrochlorothiazide () 12.5 mg PO DAILY [facility] Last Admin: 09/16/19 07:48 Dose: 12.5 mg Documented by: Piperacillin Sod/Tazobactam (Sod 3.375 gm/ Sodium Chloride) 50 mls @ 12.5 mls/hr IV Q8 [facility] Last Infusion: 09/16/19 11:17 Dose: Infused Documented by: Vancomycin IV Pharmacy to Dose (1 ea/ Sodium Chloride) 500 mls @ 250 mls/hr IV PRN PRN; Protocol PRN Reason: Rx to Dose Vancomycin HCl 1,500 mg/ (Sodium Chloride) 530 mls @ 250 mls/hr IV Q8H [facility] Last Infusion: 09/16/19 06:39 Dose: Infused Documented by: Sodium Chloride () 250 mls @ 15 mls/hr IV .[id number] PRN PRN Reason: Saline Flush Sodium Chloride () 250 mls @ 15 mls/hr IV .[id number] PRN PRN Reason: Additional IVPB Infusion Last Infusion: 09/16/19 11:17 Dose: 15 mls/hr Documented by: Insulin Human Lispro (Humalog Kwikpen (Bkc)) 0 unit SC ACHS [facility]; Protocol Last Admin: 09/16/19 11:32 Dose: 2 u Documented by: Lisinopril (Zestril) 20 mg PO DAILY [facility] Last Admin: 09/16/19 07:49 Dose: 20 mg Documented by: Metformin HCl (Glucophage) 1,500 mg PO DINNER [facility] Last Admin: 09/15/19 17:50 Dose: 1,500 mg Documented by: Metoprolol Tartrate (Lopressor (Beta Veronique)) 50 mg PO BID [facility] Last Admin: 09/16/19 07:48 Dose: 50 mg Documented by: Medical Necessity - Tobacco Use Smoking Status: Never smoker Tobacco Use: Chew Assessment/Plan All Active Problems (Last Reviewed 05/25/19 @ 14:43 by Brea Castañeda) Osteomyelitis of third toe of right foot (Acute) Osteomyelitis of second toe of right foot (Acute) 1. Osteomyelitis of second and third toe, right foot-Dr. Gary Chandler consulted with plan for partial amputation. Continue IV vancomycin and IV Zosyn. Blood culture showing no growth. Wound culture pulmonary growing staph aureus and gram-positive organism. Afebrile, no leukocytosis. FELTON/lower extremity arterial exam ordered. ID consulted. Plan for surgery tomorrow. 2. CAD with history of PCI-follows with Dr. Deluna. Continue aspirin. Refuses statin. Continue beta-veronique. Patient underwent echo and stress test 2016 which were unremarkable. EF per echo 60%. 3. Hypertension-stable, continue amlodipine, lisinopril, HCTZ, metoprolol regimen. 4. Hyperlipidemia-refuses statin. 5. Paroxysmal atrial fibrillation-has refused anticoagulation in the past. Continue aspirin 325 mg daily. Continue metoprolol. 6. Type 2 diabetes mellitus with peripheral neuropathy-hold oral regimen. Accu-Cheks with sliding scale insulin. Continue home long-acting regimen. 7. Suspected JAMES-patient reports he has refused sleep study in the past as he will not wear a mask. Encouraged sleep study as outpatient. 8. Obesity-encouraged diet lifestyle modifications. DVT prophylaxis- Heparin sc This patient was seen by DELANO Sterling under the supervision of Dr. Moran. <Gucci Moran - Last Filed: 09/16/19 14:35> - Physical Exam Vitals/I&O's: Vital Signs Temp Pulse Resp BP Pulse Ox 36.4 C L 100 18 150/87 H 98 09/16/19 08:20 09/16/19 08:20 09/16/19 08:20 09/16/19 08:20 09/16/19 08:20 Oxygen Delivery Method Room Air Weight: 131.088 kg Body Mass Index (BMI) 46.6 Intake and Output for Last 24 Hours 09/14/19 09/15/19 09/16/19 23:59 23:59 23:59 Intake Total 1170 / 1490 1407.25 / 1407.25 Balance 1170 / 1490 1407.25 / 1407.25 General: Alert, Cooperative HEENT: Atraumatic, Normocephalic Lungs: Clear to auscultation, Normal air movement, No rhonchi, No wheeze Cardiovascular: Regular rate, No murmurs Abdomen: Bowel Sounds Present, Soft, Non Tender, Non-Distended, Obese Skin: - Microbiology Past 72 Hours 09/15/19 09:00 Wound - Toe Gram Stain - Final 09/15/19 09:00 Wound - Toe Wound Culture - Preliminary Staphylococcus aureus Gram positive organism 09/15/19 10:20 Blood Culture (Wb) - Anticubital Left Blood Culture - Preliminary No growth in 48 hours. 09/15/19 10:13 Blood Culture (Wb) - Anticubital Right Blood Culture - Preliminary No growth in 48 hours. Laboratory Results 09/15/19 16:07: POC Glucose 107 09/15/19 21:12: POC Glucose 99 09/16/19 06:40: POC Glucose 114 H 09/16/19 11:21: POC Glucose 175 H 09/16/19 12:45: Vancomycin Trough 17.0 H Current Medications Acetaminophen (Tylenol) 650 mg PO Q6H PRN PRN PRN Reason: Pain Score 1-10/Temp > 100.7 F Last Admin: 09/16/19 02:16 Dose: 650 mg Documented by: Amlodipine Besylate (Norvasc) 5 mg PO DAILY [facility] Last Admin: 09/16/19 07:48 Dose: 5 mg Documented by: Ascorbic Acid (Vitamin C) 1,000 mg PO DAILY [facility] Last Admin: 09/16/19 07:49 Dose: 1,000 mg Documented by: Aspirin ([facility]spirin) [facility] Last Admin: 09/16/19 07:47 Dose: 325 mg Documented by: Dextrose (D50w Syringe) 0 gm IV X1 PRN; Protocol PRN Reason: Hypoglycemia Doxazosin Mesylate (Cardura) 1 mg PO QHS [facility] Last Admin: 09/15/19 21:18 Dose: 1 mg Documented by: Glimepiride (Amaryl) [facility] Last Admin: 09/16/19 07:47 Dose: 4 mg Documented by: Glucagon () 1 mg IM .X1 PRN PRN Reason: Hypoglycemia Heparin Sodium (Porcine) (Heparin Na) 5,000 unit SC Q12 [facility] Last Admin: 09/16/19 07:48 Dose: 5,000 unit Documented by: Hydrochlorothiazide () 12.5 mg PO DAILY [facility] Last Admin: 09/16/19 07:48 Dose: 12.5 mg Documented by: Piperacillin Sod/Tazobactam (Sod 3.375 gm/ Sodium Chloride) 50 mls @ 12.5 mls/hr IV Q8 [facility] Last Infusion: 09/16/19 11:17 Dose: Infused Documented by: Vancomycin IV Pharmacy to Dose (1 ea/ Sodium Chloride) 500 mls @ 250 mls/hr IV PRN PRN; Protocol PRN Reason: Rx to Dose Vancomycin HCl 1,500 mg/ (Sodium Chloride) 530 mls @ 250 mls/hr IV Q8H [facility] Last Admin: 09/16/19 14:27 Dose: 250 mls/hr Documented by: Sodium Chloride () 250 mls @ 15 mls/hr IV .[id number] PRN PRN Reason: Saline Flush Sodium Chloride () 250 mls @ 15 mls/hr IV .[id number] PRN PRN Reason: Additional IVPB Infusion Last Infusion: 09/16/19 11:17 Dose: 15 mls/hr Documented by: Insulin Glargine (Lantus (Bkc)) 56 units SC QHS [facility] Insulin Human Lispro (Humalog Kwikpen ([facility])) 0 unit SC ACHS [facility]; Protocol Last Admin: 09/16/19 11:32 Dose: 2 u Documented by: Lisinopril (Zestril) 20 mg PO DAILY [facility] Last Admin: 09/16/19 07:49 Dose: 20 mg Documented by: Metformin HCl (Glucophage) 1,500 mg PO DINNER [facility] Last Admin: 09/15/19 17:50 Dose: 1,500 mg Documented by: Metoprolol Tartrate (Lopressor (Beta Veronique)) 50 mg PO BID [facility] Last Admin: 09/16/19 07:48 Dose: 50 mg Documented by: Assessment/Plan Patient seen and examined independently. Data reviewed. I agree with the above note by the nurse practitioner. 1. Osteomyelitis of the right second and third toe: Plan for amputation on 625. Continue with Pipracil and/tazobactam and vancomycin. Follow-up cultures. Inpatient E&M: 13519 Subs Hosp L2
--- NOTE | 2019-09-16 13:39 | PN.ORTHO_ITS ---
Patient Problems: Active and Suspected Problems (Last Reviewed 05/25/19 @ 14:43 by Brea Castañeda) Osteomyelitis of third toe of right foot (Acute) Osteomyelitis of second toe of right foot (Acute) Subjective: Patient seen at bedside resting comfortably. Patient's present at bedside. Patient admits to improved pain of right foot. Patient denies any acute overnight events. No acute overnight events reported by nursing staff. Patient denies any other acute complaints at this time. Currently, patient denies fever, chills, nausea, vomiting, shortness of breath, chest pain. Patient denies right calf pain. Objective: Lower extremity physical exam: Vascular: Nonpalpable dorsalis pedis and posterior tibial pulse bilaterally. Capillary fill time is less than 5 seconds to all digits. Temperature gradient is within normal limits bilaterally. Minimal nonpitting edema surrounding the second and third digit of the right foot. No other areas of edema noted. Neurological: Gross and protective sensation are absent from the digits up to the ankle bilaterally and diminished from the ankle to the tibial tuberosity bilaterally. Musculoskeletal: Muscle strength is 5 out of 5 bilaterally of all crural compartments. 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 Right second toe: Ulceration noted on the plantar distal aspect of the second digit of the right foot. Ulceration has hyperkeratotic edges with a fibro- granular base. Of the ulceration, there is no fluctuance, no crepitus, but positive malodor. There is positive serosanguineous drainage. There is no purulence. There is edema and periwound erythema. There is positive probing to the distal phalanx. There is tunneling to the plantar aspect of the distal phalanx. There is no undermining and no tracking. Right third toe: Ulceration noted on the plantar distal aspect of the third digit of the right foot. Ulceration has hyperkeratotic edges with a fibro- granular base. Of the ulceration, there is no fluctuance, no crepitus, but positive malodor. There is positive serosanguineous drainage. There is no purulence. There is edema and periwound erythema. There is positive probing to the distal phalanx. There is tunneling to the plantar aspect of the distal phalanx. There is no undermining and no tracking. - Physical Exam Vitals/I&O's: Vital Signs Temp Pulse Resp BP Pulse Ox 97.5 F L 100 18 150/87 H 98 09/16/19 08:20 09/16/19 08:20 09/16/19 08:20 09/16/19 08:20 09/16/19 08:20 Oxygen Delivery Method Room Air Weight: 131.088 kg Body Mass Index (BMI) 46.6 Intake and Output for Last 24 Hours 09/14/19 09/15/19 09/16/19 23:59 23:59 23:59 Intake Total 1170 / 1490 1407.25 / 1407.25 Balance 1170 / 1490 1407.25 / 1407.25 General: Alert, Oriented x3, Cooperative HEENT: Atraumatic Oral: Moist Mucosa Neck: Supple, No JVD Lungs: Normal air movement Cardiovascular: Irregular Rate Abdomen: Bowel Sounds Present, Soft, Non Tender, Obese Extremities: Diminished Peripheral Pulses Skin: Ulcer/ Wound - as described above Psych/Mental Status: Alert and oriented to time, place, person, mood and affect Microbiology Past 72 Hours 09/15/19 09:00 Wound - Toe Gram Stain - Final 09/15/19 09:00 Wound - Toe Wound Culture - Preliminary Staphylococcus aureus Gram positive organism 09/15/19 10:20 Blood Culture (Wb) - Anticubital Left Blood Culture - Preliminary No growth in 48 hours. 09/15/19 10:13 Blood Culture (Wb) - Anticubital Right Blood Culture - Preliminary No growth in 48 hours. Laboratory Results 09/15/19 16:07: POC Glucose 107 09/15/19 21:12: POC Glucose 99 09/16/19 06:40: POC Glucose 114 H 09/16/19 11:21: POC Glucose 175 H 09/16/19 12:45: Vancomycin Trough Pending Lower extremity FELTON/PVR: Pending Current Medications Acetaminophen (Tylenol) 650 mg PO Q6H PRN PRN PRN Reason: Pain Score 1-10/Temp > 100.7 F Last Admin: 09/16/19 02:16 Dose: 650 mg Documented by: Amlodipine Besylate (Norvasc) 5 mg PO DAILY [facility] Last Admin: 09/16/19 07:48 Dose: 5 mg Documented by: Ascorbic Acid (Vitamin C) 1,000 mg PO DAILY [facility] Last Admin: 09/16/19 07:49 Dose: 1,000 mg Documented by: [facility] Last Admin: 09/16/19 07:47 Dose: 325 mg Documented by: Dextrose (D50w Syringe) 0 gm IV X1 PRN; Protocol PRN Reason: Hypoglycemia Doxazosin Mesylate (Cardura) 1 mg PO QHS [facility] Last Admin: 09/15/19 21:18 Dose: 1 mg Documented by: Glimepir[facility] (Amaryl) [facility] Last Admin: 09/16/19 07:47 Dose: 4 mg Documented by: Glucagon () 1 mg IM .X1 PRN PRN Reason: Hypoglycemia Heparin Sodium (Porcine) (Heparin Na) 5,000 unit SC Q12 [facility] Last Admin: 09/16/19 07:48 Dose: 5,000 unit Documented by: Hydrochlorothiazide () 12.5 mg PO DAILY [facility] Last Admin: 09/16/19 07:48 Dose: 12.5 mg Documented by: Piperacillin Sod/Tazobactam (Sod 3.375 gm/ Sodium Chloride) 50 mls @ 12.5 mls/hr IV Q8 [facility] Last Infusion: 09/16/19 11:17 Dose: Infused Documented by: Vancomycin IV Pharmacy to Dose (1 ea/ Sodium Chloride) 500 mls @ 250 mls/hr IV PRN PRN; Protocol PRN Reason: Rx to Dose Vancomycin HCl 1,500 mg/ (Sodium Chloride) 530 mls @ 250 mls/hr IV Q8H [facility] Last Infusion: 09/16/19 06:39 Dose: Infused Documented by: Sodium Chloride () 250 mls @ 15 mls/hr IV .[id number] PRN PRN Reason: Saline Flush Sodium Chloride () 250 mls @ 15 mls/hr IV .[id number] PRN PRN Reason: Additional IVPB Infusion Last Infusion: 09/16/19 11:17 Dose: 15 mls/hr Documented by: Insulin Glargine (Lantus (Bk)) 56 units SC QHS [facility] Insulin Human Lispro (Humalog Kwikpen (Bk)) 0 unit SC ACHS [facility]; Protocol Last Admin: 09/16/19 11:32 Dose: 2 u Documented by: Lisinopril (Zestril) 20 mg PO DAILY [facility] Last Admin: 09/16/19 07:49 Dose: 20 mg Documented by: Metformin HCl (Glucophage) 1,500 mg PO DINNER [facility] Last Admin: 09/15/19 17:50 Dose: 1,500 mg Documented by: Metoprolol Tartrate (Lopressor (Beta Veronique)) 50 mg PO BID [facility] Last Admin: 09/16/19 07:48 Dose: 50 mg Documented by: Medical Necessity - Tobacco Use Smoking Status: Never smoker Tobacco Use: Chew Assessment/Plan All Active Problems (Last Reviewed 05/25/19 @ 14:43 by Brea Castañeda) Osteomyelitis of third toe of right foot (Acute) Osteomyelitis of second toe of right foot (Acute) Assessment: This is a 69-year-old male with nonhealing ulceration of his right foot second and third toes and osteomyelitis Plan: Patient chart reviewed and patient evaluated. Full discussion had with the patient and the patient's about the patient's current clinical condition. Wound culture results discussed with them in detail. I discussed with him that along with my clinical findings of evidence of bone present, MRI does show that there is osteomyelitis of the distal phalanx of the second and third digit of the right foot. I discussed with the patient and his the etiology of this along with the nature of the disease. I discussed the risks and benefits of both conservative and surgical interventions for the patient's condition once again. Due to the infection that is present, I recommended surgical intervention. Patient and patient's are agreeable to surgical intervention. I discussed with the patient that we are waiting for blood flow studies of the bilateral lower extremity. Pending these results, surgery may have to be delayed until vascular flow can be reestablished. Patient and patient's displayed verbal understanding. As of now, I have the patient scheduled for surgery tomorrow, September 17, 2019 at 1:15 PM for partial amputation of the second and third toe of the right foot. Once again, patient is agreeable to surgical intervention. I recommend the continuation of broad-spectrum IV antibiotics. A consultation was placed to Dr. Manning for further antibiotic management Dressing to right foot is to be kept clean, dry, intact until further evaluation. At this time, I recommend the patient weight-bear as tolerated in the postoperative shoe at this time. Patient does have a postoperative shoe at bedside. We will await the laboratory as well as from the wound culture that was taken in the office as well. Patient and patient's displayed verbal understanding to all written and oral instructions at this time. They are agreeable to the current treatment plan at this time. All their questions were answered to their satisfaction and all their concerns were addressed. I will continue to follow patient closely and update accordingly. Thank you very much for the consultation and allowing me to take part in the care of your patient. Inpatient E&M: 68987 Subs Hosp L2
--- NOTE | 2019-09-16 14:14 | PCM.RX.CS ---
Consult Pharmacy has been consulted to manage selected antiobiotic: Vancomycin Type of Consult: Follow-up Suspected Infection: Osteomyelitis Prior Doses of Antibiotics Received/Current Regimen: current dose is 1500mg IV q8h Labs: Sodium 139 mmol/L (136-145) 09/15/19 10:13 Potassium 4.1 mmol/L (3.5-5.1) 09/15/19 10:13 Chloride 102 mmol/L (98-107) 09/15/19 10:13 Carbon Dioxide 30.0 mmol/L (21.0-32.0) 09/15/19 10:13 Anion Gap 7 (5-15) 09/15/19 10:13 BUN 16 mg/dL (7-18) 09/15/19 10:13 Creatinine 0.85 mg/dL (0.70-1.30) 09/15/19 10:13 Est GFR (MDRD) Af Amer 114 mL/min (>60) 09/15/19 10:13 Est GFR (MDRD) Non-Af 95 mL/min (>60) 09/15/19 10:13 BUN/Creatinine Ratio 18.8 RATIO (10-20) 09/15/19 10:13 Glucose 74 mg/dL (74-106) 09/15/19 10:13 Vancomycin Trough 17.0 ug/mL (5.0-15.0) H 09/16/19 12:45 Microbiology: Microbiology 09/15/19 09:00 Wound - Toe Gram Stain - Final 09/15/19 09:00 Wound - Toe Wound Culture - Preliminary Staphylococcus aureus Gram positive organism 09/15/19 10:20 Blood Culture (Wb) - Anticubital Left Blood Culture - Preliminary No growth in 48 hours. 09/15/19 10:13 Blood Culture (Wb) - Anticubital Right Blood Culture - Preliminary No growth in 48 hours. Weight used for dosin kg Estimated Creatinine Clearance: >100ml/min Goal Trough: 15-20 mcg/mL Pharmacy Plan for Drug Dosing: The vancomycin trough level drawn before this afternoon's dose was 17.0 mg/L (drawn approx 8 hours after the previous dose). This is within goal range of 15-20 so will leave dosing the same. Will recheck the trough in just 2 days though since it may keep going up as the patient has not reached steady state yet. Pharmacy Service will continue to monitor and adjust dosing as required. Follow-Up Labs: Trough Vancomycin Labs to be done on [date and time ordered]: 09/17 12:30
[2019-09-16 14:20] VITALS: BP 119/76; PULSE 84; RESP 18; TEMP 36.9; O2SAT 98
--- NOTE | 2019-09-16 15:48 | CON.PCM_ITS ---
Problem List (1) Osteomyelitis of second toe of right foot Status: Acute Reason for Consult: osteo Consulted by: Dr. Hernandez History of Present Illness: The patient is a 69 year old M with well controlled DM, presented with 3 months of R 2nd and 3rd toe pain, swelling, drainage, mild odor. Sx started in May, saw PCP, given course of po abx (he thinks amoxicillin) with some improvement. Since then, monitoring his toes, slowly worsening. No fever, no redness. Referred to podiatry, saw Dr. Chandler, sent to hospital. On vanc.zainacharbel, MRI done, plan is for OR tomorrow. No sick contacts, no change in taste/smell. Full ROS performed and neg except as noted above. - Medical History Past Medical History (Chronic Problems): Chronic Problems (Last Reviewed 05/25/19 @ 14:43 by Brea Castañeda) Pure hypercholesterolemia (Chronic) GERD (gastroesophageal reflux disease) (Chronic) Type 2 diabetes mellitus (Chronic) Essential hypertension (Chronic) Atherosclerotic heart disease of [place] coronary artery without angina pectoris (Chronic) Presence of coronary angioplasty implant and graft (Chronic ~06/2007) PTCA with DILIA to CFX 2nd marginal 06/30 Presence of stent in coronary artery (Chronic ~06/2007) PTCA with DILIA to CFX 2nd marginal 06/30 Paroxysmal atrial fibrillation (Chronic) Left atrial enlargement (Chronic) Tachycardia (Chronic) Other mcfp (current) drug therapy (Chronic) Allergies/Adverse Reactions: Allergies hydrocodone [From Vicodin] Adverse Reaction (Severe, Verified 09/15/19 09:43) Hives ramipril [From Altace] Adverse Reaction (Severe, Verified 09/15/19 09:43) Fast HR valsartan [From Diovan] Adverse Reaction (Severe, Verified 09/15/19 09:43) Fast HR Tegjrya-Twb-Lda Reductase Inhibitor Adverse Reaction (Intermediate, Verified 09/15/19 09:43) Muscle aches Home Medications: Ambulatory Orders Medication Instructions Recorded ascorbic acid (vitamin C) 1,000 mg 1,000 mg PO DAILY tab 05/30/17 tablet aspirin 325 mg tablet 325 mg PO DAILY tab 05/30/17 glimepiride 4 mg tablet 4 mg PO BID tab 05/30/17 metformin 500 mg tablet 1,000 mg PO DAILY 05/30/17 nitroglycerin 0.4 mg sublingual 0.4 mg SUBLINGUAL Q5M PRN 05/30/17 tablet biotin 1 mg tablet 1 mg PO DAILY 05/25/19 insulin glargine 100 unit/mL (3 56 unit SC QHS ml 05/25/19 mL) subcutaneous pen omega-3 fatty acids 1,000 mg 3,000 mg PO DAILY cap 05/25/19 capsule Amlodipine Besylate [Norvasc] 5 mg PO DAILY 09/15/19 Doxazosin Mesylate 1 mg PO QHS 09/15/19 Lisinopril/Hydrochlorothiazide 1 tab PO BID 09/15/19 [Lisinopril-Hctz 20-12.5 mg Tab] Metformin HCl 1,500 mg PO DAILY 09/15/19 Metoprolol Tartrate [Lopressor 50 mg PO BID 09/15/19 (beta jones)] Multivitamin with Minerals 1 tab PO DAILY 09/15/19 [Multiple Vitamin] - Social History Tobacco Use: non-smoker Vital Signs Temp Pulse Resp BP Pulse Ox 98.4 F 84 18 119/76 98 09/16/19 14:20 09/16/19 14:20 09/16/19 14:20 09/16/19 14:20 09/16/19 14:20 Oxygen Delivery Method Room Air Weight: 131.088 kg Body Mass Index (BMI) 46.6 Microbiology Past 72 Hours 09/15/19 09:00 Gram Stain - Final Wound - Toe Wound Culture - Preliminary Staphylococcus aureus Gram positive organism 09/15/19 10:20 Blood Culture - Preliminary Blood Culture (Wb) - Anticubital Left No growth in 48 hours. 09/15/19 10:13 Blood Culture - Preliminary Blood Culture (Wb) - Anticubital Right No growth in 48 hours. Laboratory Tests Past 24 Hrs 09/16/19 12:45 Vancomycin Trough 17.0 H - Other Studies Radiology: [] reviewed Other Studies: [] Route of nutrition/ use of supplements: [] Nutritional Intake: [] IV Site: [] Taylor Catheter: [] - Physical Exam General: Alert, Oriented x3, Cooperative, No apparent distress HEENT: Atraumatic, PERRLA, EOMI Neck: Supple, No Nodes Lungs: Clear to auscultation, Normal air movement Cardiovascular: Regular rate, Regular Rhythm Abdomen: Soft, Non Tender, Non-Distended Extremities: No edema Skin: Ulcer/ Wound - R foot wrapped IV Site: Peripheral, without redness Musculoskeletal: No Tenderness to Palpation of Joints or Extremities Neurological: Cranial nerves II-XII grossly intact - Assessment/Plan Antibiotics: [] Assessment/Plan: [] Active and Suspected Problems (Last Reviewed 05/25/19 @ 14:43 by Brea Castañeda) Osteomyelitis of third toe of right foot (Acute) Osteomyelitis of second toe of right foot (Acute) OR planned for tomorrow with Dr. Chandler. Wound cx pending, so far showing staph aureus and gram pos org. No fever, normal wbc. Cont empiric vanc/zosyn for now. If surg margins are clear, plan for discharge will be short course of po abx. Will follow, thank you.
[2019-09-16] MEDS: metFORMIN HCl 500 MG Tablet 1500 MG PO (16:52)
[2019-09-16 17:00] LABS: Bedside Glucose 80 mg/dL (70-110)
[2019-09-16 17:27] LABS: Probe Check PASS; Specimen Processing Control PASS
[2019-09-16] MEDS: 0.9% Saline Lock 10 ML Syringe IV ×2 (19:40→20:48)
[2019-09-16 20:43] VITALS: BP 122/81; PULSE 83; RESP 20; TEMP 36.9; O2SAT 96
[2019-09-16 22:48] VITALS: BP 144/90; PULSE 80
[2019-09-16] MEDS: Doxazosin 1 MG Tablet PO (22:49)
[2019-09-16 22:56] LABS: Bedside Glucose 144 mg/dL (70-110)
[2019-09-17] VITALS (13 sets, daily range): BP systolic 113–155; BP diastolic 74–108; PULSE 70–98; RESP 16–20; TEMP 36.2–37.3; O2SAT 89–100; BMI 46.6
[2019-09-17 06:03] LABS: Hematocrit 39.9 % (40-54); Hemoglobin 12.6 g/dL (13.0-16.5); Mean Corp Hgb Conc 31.6 g/dL (32-36); Mean Corpuscular Hgb 28.7 pg (27.0-32.0); Mean Corpuscular Volume 90.9 fL (80-94); Mean Platelet Vol. 9.4 fl (6.2-12.0); Platelet Count 229 K/mm3 (150-450); RBC Distribution Width CV 13.3 % (11.6-14.6); RBC Distribution Width SD 44.6 fl (35.1-43.9); Red Blood Count 4.39 M/mm3 (4.6-6.2); White Blood Count 4.8 K/mm3 (4.4-11.0)
[2019-09-17 06:14] LABS: Partial Thromboplast Time 28.1 Seconds (24.1-36.2)
[2019-09-17 06:32] LABS: Anion Gap 7 (5-15); BUN 15 mg/dL (7-18); BUN/Creat Ratio 17.8 RATIO (10-20); Calcium,Total 8.9 mg/dL (8.5-10.1); Chloride 105 mmol/L (98-107); Creatinine, Serum 0.84 mg/dL (0.70-1.30); EST Glomerular Filtration Rate 96 mL/min (>60); Est Glom Filt Rate - Afr Amer 116 mL/min (>60); Glucose 127 mg/dL (74-106); Sodium Level 140 mmol/L (136-145)
[2019-09-17 06:51] LABS: Bedside Glucose 164 mg/dL (70-110)
--- NOTE | 2019-09-17 10:07 | PN.ID_ITS ---
Patient Problems: Active and Suspected Problems (Last Reviewed 05/25/19 @ 14:43 by Brea Castañeda) Osteomyelitis of third toe of right foot (Acute) Osteomyelitis of second toe of right foot (Acute) Subjective: Feeling ok, OR today, no fever, no n/v/d. - Physical Exam Vitals/I&O's: Vital Signs Temp Pulse Resp BP Pulse Ox 97.2 F L 95 20 H 150/89 H 93 09/17/19 08:15 09/17/19 08:15 09/17/19 08:15 09/17/19 08:15 09/17/19 08:15 Oxygen Delivery Method Room Air Weight: 131.088 kg Body Mass Index (BMI) 46.6 Intake and Output for Last 24 Hours 09/15/19 09/16/19 09/17/19 23:59 23:59 23:59 Intake Total 1170 / 1490 2925.00 / 2925.00 216.75 / 216.75 Balance 1170 / 1490 2925.00 / 2925.00 216.75 / 216.75 General: Alert, Cooperative, No apparent distress Lungs: Clear to auscultation, Normal air movement Cardiovascular: Regular rate, Regular Rhythm Abdomen: Soft, Non Tender, Non-Distended Skin: Ulcer/ Wound - foot wrapped Microbiology Past 72 Hours 09/15/19 09:00 Wound - Toe Gram Stain - Final 09/15/19 09:00 Wound - Toe Wound Culture - Preliminary Staphylococcus aureus Gram positive organism 09/15/19 10:20 Blood Culture (Wb) - Anticubital Left Blood Culture - Preliminary No growth in 48 hours. 09/15/19 10:13 Blood Culture (Wb) - Anticubital Right Blood Culture - Preliminary No growth in 48 hours. Laboratory Results 09/16/19 11:21: POC Glucose 175 H 09/16/19 12:45: Vancomycin Trough 17.0 H 09/16/19 16:00: COVID-19 (LILLI) Negative 09/16/19 16:50: POC Glucose 80 09/16/19 22:39: POC Glucose 144 H 09/17/19 05:25: WBC 4.8, RBC 4.39 L, Hgb 12.6 L, Hct 39.9 L, MCV 90.9, MCH 28.7, MCHC 31.6 L, RDW Std Deviation 44.6 H, RDW Coeff of Rene 13.3, Plt Count 229, MPV 9.4 09/17/19 05:25: Sodium 140, Potassium 4.0, Chloride 105, Carbon Dioxide 28.0, Anion Gap 7, BUN 15, Creatinine 0.84, Estim Creat Clear Calc 74.90, Est GFR (MDRD) Af Amer 116, Est GFR (MDRD) Non-Af 96, BUN/Creatinine Ratio 17.8, Glucose 127 H, Calcium 8.9 09/17/19 05:25: APTT 28.1 09/17/19 06:40: POC Glucose 164 H Current Medications Acetaminophen (Tylenol) 650 mg PO Q6H PRN PRN PRN Reason: Pain Score 1-10/Temp > 100.7 F Last Admin: 09/16/19 02:16 Dose: 650 mg Documented by: Amlodipine Besylate (Norvasc) 5 mg PO DAILY [facility] Last Admin: 09/16/19 07:48 Dose: 5 mg Documented by: Ascorbic Acid (Vitamin C) 1,000 mg PO DAILY [facility] Last Admin: 09/16/19 07:49 Dose: 1,000 mg Documented by: [facility]) [facility] Last Admin: 09/17/19 08:33 Dose: Not Given Documented by: Dextrose (D50w Syringe) 0 gm IV X1 PRN; Protocol PRN Reason: Hypoglycemia Doxazosin Mesylate (Cardura) 1 mg PO QHS [facility] Last Admin: 09/16/19 22:49 Dose: 1 mg Documented by: Glimepiride (Amaryl) [facility] Last Admin: 09/17/19 08:33 Dose: Not Given Documented by: Glucagon () 1 mg IM .X1 PRN PRN Reason: Hypoglycemia Heparin Sodium (Porcine) (Heparin Na) 5,000 unit SC Q12 [facility] Last Admin: 09/17/19 08:33 Dose: Not Given Documented by: Hydrochlorothiazide () 12.5 mg PO DAILY [facility] Last Admin: 09/16/19 07:48 Dose: 12.5 mg Documented by: Piperacillin Sod/Tazobactam (Sod 3.375 gm/ Sodium Chloride) 50 mls @ 12.5 mls/hr IV Q8 [facility] Last Admin: 09/17/19 06:25 Dose: 12.5 mls/hr Documented by: Vancomycin IV Pharmacy to Dose (1 ea/ Sodium Chloride) 500 mls @ 250 mls/hr IV PRN PRN; Protocol PRN Reason: Rx to Dose Vancomycin HCl 1,500 mg/ (Sodium Chloride) 530 mls @ 250 mls/hr IV Q8H [facility] Last Admin: 09/17/19 06:22 Dose: 250 mls/hr Documented by: Sodium Chloride () 250 mls @ 15 mls/hr IV .[id number] PRN PRN Reason: Saline Flush Last Infusion: 09/17/19 06:46 Dose: 0 mls/hr Documented by: Sodium Chloride () 250 mls @ 15 mls/hr IV .[id number] PRN PRN Reason: Additional IVPB Infusion Last Infusion: 09/17/19 06:46 Dose: 0 mls/hr Documented by: Insulin Glargine (Lantus ([facility])) 56 units SC QHS [facility] Last Admin: 09/16/19 22:47 Dose: Not Given Documented by: Insulin Human Lispro (Humalog Kwikpen ([facility])) 0 unit SC ACHS [facility]; Protocol Last Admin: 09/17/19 06:43 Dose: Not Given Documented by: Lisinopril (Zestril) 20 mg PO DAILY [facility] Last Admin: 09/16/19 07:49 Dose: 20 mg Documented by: Metformin HCl (Glucophage) 1,500 mg PO DINNER [facility] Last Admin: 09/16/19 16:52 Dose: 1,500 mg Documented by: Metoprolol Tartrate (Lopressor (Beta Veronique)) 50 mg PO BID [facility] Last Admin: 09/16/19 22:48 Dose: 50 mg Documented by: Sodium Chloride () 10 - 40 ml IV UD PRN PRN Reason: SALINE FLUSH Last Admin: 09/16/19 20:48 Dose: 10 ml Documented by: Medical Necessity - Tobacco Use Smoking Status: Never smoker Tobacco Use: Chew Route of nutrition/ use of supplements: [] Nutritional Intake: [] IV Site: [] Taylor Catheter: [] - Assessment/Plan Antibiotics: [] Assessment/Plan: [] Active and Suspected Problems (Last Reviewed 05/25/19 @ 14:43 by Brea Castañeda) Osteomyelitis of third toe of right foot (Acute) Osteomyelitis of second toe of right foot (Acute) OR planned for today with Dr. Chandler. Wound cx pending, so far showing staph aureus and gram pos org. No fever, normal wbc. Cont empiric vanc/zosyn for now. If surg margins are clear, plan for discharge will be short course of po abx. Will follow
[2019-09-17] MEDS: Metoprolol Tartrate 50 MG Tablet PO ×2 (10:53→22:16)
[2019-09-17 11:46] LABS: Bedside Glucose 113 mg/dL (70-110)
--- NOTE | 2019-09-17 11:59 | PCM.PN.HOSP ---
Patient Problems: Active and Suspected Problems (Last Reviewed 05/25/19 @ 14:43 by Brea Castañeda) Osteomyelitis of third toe of right foot (Acute) Osteomyelitis of second toe of right foot (Acute) Reason for Visit: OM Subjective: No new complaints. Awaiting on surgery. Vitals/I&O's: Vital Signs Temp Pulse Resp BP Pulse Ox 36.2 C L 95 20 H 150/89 H 93 09/17/19 08:15 09/17/19 10:53 09/17/19 08:15 09/17/19 10:53 09/17/19 08:15 Oxygen Delivery Method Room Air Weight: 131.088 kg Body Mass Index (BMI) 46.6 Intake and Output for Last 24 Hours 09/15/19 09/16/19 09/17/19 23:59 23:59 23:59 Intake Total 1170 / 1490 2925.00 / 2925.00 216.75 / 216.75 Balance 1170 / 1490 2925.00 / 2925.00 216.75 / 216.75 General: Alert, No apparent distress HEENT: Atraumatic, Normocephalic Abdomen: Obese Extremities: No edema, No Calf Tenderness Skin: No rashes, No breakdown Psych/Mental Status: Normal Affect, Appropriate Microbiology Past 72 Hours 09/15/19 09:00 Wound - Toe Gram Stain - Final 09/15/19 09:00 Wound - Toe Wound Culture - Preliminary Staphylococcus aureus Coag Negative Staph 09/15/19 10:20 Blood Culture (Wb) - Anticubital Left Blood Culture - Preliminary No growth in 48 hours. 09/15/19 10:13 Blood Culture (Wb) - Anticubital Right Blood Culture - Preliminary No growth in 48 hours. Laboratory Results 09/16/19 12:45: Vancomycin Trough 17.0 H 09/16/19 16:00: COVID-19 (LILLI) Negative 09/16/19 16:50: POC Glucose 80 09/16/19 22:39: POC Glucose 144 H 09/17/19 05:25: WBC 4.8, RBC 4.39 L, Hgb 12.6 L, Hct 39.9 L, MCV 90.9, MCH 28.7, MCHC 31.6 L, RDW Std Deviation 44.6 H, RDW Coeff of Rene 13.3, Plt Count 229, MPV 9.4 09/17/19 05:25: Sodium 140, Potassium 4.0, Chloride 105, Carbon Dioxide 28.0, Anion Gap 7, BUN 15, Creatinine 0.84, Estim Creat Clear Calc 74.90, Est GFR (MDRD) Af Amer 116, Est GFR (MDRD) Non-Af 96, BUN/Creatinine Ratio 17.8, Glucose 127 H, Calcium 8.9 09/17/19 05:25: APTT 28.1 09/17/19 06:40: POC Glucose 164 H 09/17/19 11:38: POC Glucose 113 H Current Medications Acetaminophen (Tylenol) 650 mg PO Q6H PRN PRN PRN Reason: Pain Score 1-10/Temp > 100.7 F Last Admin: 09/16/19 02:16 Dose: 650 mg Documented by: Amlodipine Besylate (Norvasc) 5 mg PO DAILY [facility] Last Admin: 09/17/19 10:54 Dose: Not Given Documented by: Ascorbic Acid (Vitamin C) 1,000 mg PO DAILY [facility] Last Admin: 09/17/19 10:54 Dose: Not Given Documented by: [facility] Last Admin: 09/17/19 08:33 Dose: Not Given Documented by: Dextrose (D50w Syringe) 0 gm IV X1 PRN; Protocol PRN Reason: Hypoglycemia Doxazosin Mesylate (Cardura) 1 mg PO QHS [facility] Last Admin: 09/16/19 22:49 Dose: 1 mg Documented by: Glimepir[facility] (Amaryl) [facility] Last Admin: 09/17/19 08:33 Dose: Not Given Documented by: Glucagon () 1 mg IM .X1 PRN PRN Reason: Hypoglycemia Heparin Sodium (Porcine) (Heparin Na) 5,000 unit SC Q12 [facility] Last Admin: 09/17/19 08:33 Dose: Not Given Documented by: Hydrochlorothiazide () 12.5 mg PO DAILY [facility] Last Admin: 09/17/19 10:54 Dose: Not Given Documented by: Piperacillin Sod/Tazobactam (Sod 3.375 gm/ Sodium Chloride) 50 mls @ 12.5 mls/hr IV Q8 [facility] Last Admin: 09/17/19 06:25 Dose: 12.5 mls/hr Documented by: Vancomycin IV Pharmacy to Dose (1 ea/ Sodium Chloride) 500 mls @ 250 mls/hr IV PRN PRN; Protocol PRN Reason: Rx to Dose Vancomycin HCl 1,500 mg/ (Sodium Chloride) 530 mls @ 250 mls/hr IV Q8H [facility] Last Admin: 09/17/19 06:22 Dose: 250 mls/hr Documented by: Sodium Chloride () 250 mls @ 15 mls/hr IV .[id number] PRN PRN Reason: Saline Flush Last Infusion: 09/17/19 06:46 Dose: 0 mls/hr Documented by: Sodium Chloride () 250 mls @ 15 mls/hr IV .[id number] PRN PRN Reason: Additional IVPB Infusion Last Infusion: 09/17/19 06:46 Dose: 0 mls/hr Documented by: Insulin Glargine (Lantus ([facility])) 56 units SC QHS [facility] Last Admin: 09/16/19 22:47 Dose: Not Given Documented by: Insulin Human Lispro (Humalog Kwikpen ([facility])) 0 unit SC ACHS [facility]; Protocol Last Admin: 09/17/19 06:43 Dose: Not Given Documented by: Lisinopril (Zestril) 20 mg PO DAILY [facility] Last Admin: 09/17/19 10:54 Dose: Not Given Documented by: Metformin HCl (Glucophage) 1,500 mg PO DINNER [facility] Last Admin: 09/16/19 16:52 Dose: 1,500 mg Documented by: Metoprolol Tartrate (Lopressor (Beta Veronique)) 50 mg PO BID [facility] Last Admin: 09/17/19 10:53 Dose: 50 mg Documented by: Sodium Chloride () 10 - 40 ml IV UD PRN PRN Reason: SALINE FLUSH Last Admin: 09/16/19 20:48 Dose: 10 ml Documented by: STROKE Vital Signs/Narrative: Vital Signs Temp Pulse Resp BP Pulse Ox 09/17/19 10:53 95 150/89 H 09/17/19 08:15 36.2 C L 95 20 H 150/89 H 93 Medical Necessity - Tobacco Use Smoking Status: Never smoker Tobacco Use: Chew Assessment/Plan All Active Problems (Last Reviewed 05/25/19 @ 14:43 by Brea Castañeda) Osteomyelitis of third toe of right foot (Acute) Osteomyelitis of second toe of right foot (Acute) 1. Osteomyelitis of the right second and third toe: Plan for amputation on 09/16. Continue with Pipracil and/tazobactam and vancomycin. Follow-up cultures. ID following. Cultures showing S. aureus and ANALOG IC DESIGN ARCHITECT 2. DM2 fair control continue Basal insulin, SSI, metformin, glyburide 3. pafib has not tolerated warfarin in past due to hematuria continue metoprolol resume ASA post operative 4. VTE prophylaxis: resume chemical prophylaxis post operative. Inpatient E&M: 98859 Subs Hosp L2
--- NOTE | 2019-09-17 13:15 | BON_PTH ---
PATIENT: MIGUELANGEL MOYA LOC: [facility] U#:[id number] AGE/SX: 69/M ROOM: NH321 RE09/15/[address]: Dr. Gucci Moran DO : 1950 BED: 1 DIS: 09/19/2019 SPEC #: [id number] RECD: 09/17/19 16:03 STATUS: PRIYA IJEOMA #: [id number] PATTY: 09/17/19 13:[address]: Gary Chandler DEPT: SURGICAL PATHOLOGY RECD BY: Arnav Monique ENTERED: 09/18/19 08:04 SP TYPE: Bone OTHR DR: DO Dr. Mikhail Grace DO Dr. Robert Leininger, MD Dr. Victor Velasquez, MD Tissues: A - Bone of foot, NOS B - Bone of foot, NOS Procedures: Decalcification bone/plaque Surgery Specimen Level IV HEADER OPERATION: Amputation second and third toes right foot PRE-OP DIAGNOSIS: Osteomyelitis right second and third toes TISSUE SUBMITTED: A - Right second toe, B - Right third toe MICROSCOPIC DIAGNOSIS A. Right second toe, amputation: Skin and soft tissue with ulceration, associated acute chronic inflammation and granulation. Hyperkeratosis. Bone with no evidence of osteomyelitis. B. Right third toe, amputation: Skin and soft tissue with ulceration, associated acute chronic inflammation and granulation. Hyperkeratosis. Bone with no evidence of osteomyelitis. AM:arina 09/24/19 MICROSCOPIC DESCRIPTION Slides are reviewed. GROSS DESCRIPTION A - Received in fixative is one container labeled with the patient's name and designated second toe right foot. The specimen consists of a portion of toe measuring 2.5 x 2 x 1 cm. The toe shows a focal area of ulceration measuring 1.5 X 1.2 cm. Flavor Room Worker sections are submitted in two cassettes as follows: 1??ulcerated area, 2??bone after decalcification. B - Received in fixative is one container labeled with the patient's name and designated third toe right foot. The specimen consists of a portion of toe measuring 2 x 2 x 1.5 cm. The toe shows a focal area of ulceration measuring 1.8 x 1.5 cm. Flavor Room Worker sections are submitted in two cassettes as follows: 1?- ulcerated area, 2??bone after decalcification. / SJ:arina 09/18/19 TC:2 CPT: 53283 x2, 77689 x2
--- NOTE | 2019-09-17 15:02 | PCM.OPRPT ---
Problem List (1) Osteomyelitis of third toe of right foot Status: Acute (2) Osteomyelitis of second toe of right foot Status: Acute Report of Operation Date of Procedure: 09/17/19 Pre-Operative Diagnosis: 1. Osteomyelitis, second toe right foot. 2. Osteomyelitis, third toe right foot. 3. Diabetes mellitus type 2 with polyneuropathy. 4. Diabetes mellitus type 2 with foot ulcer. 5. Nonpressure ulcer, right second toe, with necrosis of bone. 6. Nonpressure ulcer, right third toe, with necrosis of bone. Post-Operative Diagnosis: Same as preoperative Surgery/Procedure Performed:: 1. Right foot second digit partial amputation. 2. Right foot third digit partial amputation. 3. Right foot second and third toe washout Description of Surgical Findings:: Consistent with diagnosis. Remaining bone appeared hard, healthy, with active medullary bleeding and no evidence of osteonecrosis. Remaining soft tissue appeared healthy with no signs of necrosis. manager of creative services: Roxy Farrar Type of Anesthesia:: General/Regional - With 12 mL of 0.5% Marcaine plain distributed in a digital block fashion to the second and third digits of the right foot Anesthesiologist: Gucci Haney Specimen's removed: 1. Right foot second toe for pathology. 2. Foot third toe for pathology. 3. Right foot second toe bone, proximal clear margin. 4. Right foot third toe bone, proximal clear margin. 5. Right foot second digit wound culture status post washout. 6. Right foot third digit wound culture status post washout. Drains: none Estimated Blood Loss (mL): 10 Description of Procedure: Pathology: 1. Right foot second toe for pathology. 2. Foot third toe for pathology. 3. Right foot second toe bone, proximal clear margin. 4. Right foot third toe bone, proximal clear margin. 5. Right foot second digit wound culture status post washout Anesthesia: General with a digital block given to the right foot second and third digits consisting of total of 12 mL of 0.5% Marcaine plain. Hemostasis: Anatomic dissection estimated blood loss: 10mL Materials: #1. 3-0 Vicryl. 2. 3-0 nylon. Injectables: 10 mL of 0.5 the Marcaine plain Complications: None Condition: Stable Indications: Patient is a 69-year-old male with multiple medical problems who presented to my office on September 14, for evaluation of right foot second and third toe pain. Patient presented with his , who was present at bedside at that time. After verbal questioning, patient relates that he had sores on his second and third toe for approximately 3 months. There was increased pain, drainage, swelling. Due to the coronavirus, patient did not seek medical attention until his appointment with me. After debridement in the office, there was evidence of exposed distal phalanx of the second and third digit. At that time, I urged the patient to present to the emergency department at [facility] for further evaluation. Patient presented after the appointment with me, where an MRI was performed. MRI revealed osteomyelitis of the distal phalanx of the second and third toe of the right foot. Patient was started on broad-spectrum IV antibiotics and was admitted for further evaluation. After multiple discussions were had with the patient and the patient's , I discussed with him conservative and surgical intervention. Due to the infection that was present, I recommended surgical intervention for partial amputation of the second and third digit. Patient and patient's are agreeable to the procedure. Noninvasive vascular studies were performed, revealing mild large and small occlusive vessel disease of the right lower extremity. Results were then discussed with the patient. Due to the severity of the infection present, surgical intervention was opted to be performed, with a possible vascular evaluation at a later date. Operative report: Before the patient was brought to the operating room, the risks, benefits, possible outcomes, possible complications of the procedure were discussed with the patient. This included but not limited to delayed or nonhealing wounds, infection, DVT, decreased function of limb, loss of limb, loss of life. All the patient questions were answered to his satisfaction and all of his concerns were addressed. No guarantees were made as to the outcome of the procedure. Patient understood all aspects of the procedure, and consent was then signed by the patient. Patient was then brought to the operating room and placed on the operating table in a supine position. After timeout, under general anesthesia, a total of 12 mL of 0.5% Marcaine plain was distributed in a digital block fashion to the second third digits of the right foot. The right foot, ankle, leg were then scrubbed, prepped, draped in the usual sterile manner. Attention was then directed the distal aspect of the second toe of the right foot, with the ulceration was noted on the plantar distal aspect. At this time, a #15 blade was used to perform a fishmouth incision over the dorsal and plantar aspects of the midportion of the middle phalanx. This incision was made full-thickness. Sharp dissection was continued down deep to the level of the bone. Healthy active bleeding was noted of the digit at this time. At this time, the distal interphalangeal joint of the second digit of the right foot was identified. This was sharply disarticulated. The distal aspect of the second digit was then sharply freed of its soft tissue attachments and passed from the operative site to be sent for pathology. At this time, any remaining tendinous structures and necrotic tissue was sharply excised and removed from the operative site. Visual inspection was then performed of the remaining soft tissue and the remaining middle phalanx. The soft tissue was deemed healthy with no signs of necrosis. The middle phalanx was deemed hard, healthy, pearly white with no signs of osteonecrosis. Next, a bone rongeur was used to resect the head of the middle phalanx. This was sent for microbiology labeled clear margins, second toe of right foot. Any sharp edges were removed and resected via the bone rongeur. Attention was then directed the distal aspect of the third toe of the right foot, with the ulceration was noted on the plantar distal aspect. At this time, a #15 blade was used to perform a fishmouth incision over the dorsal and plantar aspects of the midportion of the middle phalanx. This incision was made full-thickness. Sharp dissection was continued down deep to the level of the bone. Healthy active bleeding was noted of the digit at this time. At this time, the distal interphalangeal joint of the third digit of the right foot was identified. This was sharply disarticulated. At the distal aspect of the third digit was then sharply freed of its soft tissue attachments and passed from the operative site to be sent for pathology. At this time, any remaining tendinous structures and necrotic tissue was sharply excised and removed from the operative site. Visual inspection was then performed of the remaining soft tissue and the remaining middle phalanx. The soft tissue was deemed healthy with no signs of necrosis. The middle phalanx was deemed hard, healthy, pearly white with no signs of osteonecrosis. Next, a bone rongeur was used to resect the head of the middle phalanx. This was sent for microbiology labeled clear margins, third toe of right foot. Any sharp edges were removed and resected via the bone rongeur. Next, 3 L of normal sterile saline was irrigated and a pulse lavage fashion into the second and third digits respectively, totaling 6 L. At this time, the gloves were changed, and the right foot and ankle were then reprepped and draped. At this time, a wound culture was taken of both the second and third toe for aerobic, anaerobic, acid-fast, and fungal organisms. Visual inspection was then performed of the remaining bone and soft tissue of the second and third toes. The remaining bones appeared hard, healthy, pearly white with active medullary canal bleeding and no signs of osteonecrosis. There were signs of necrosis noted within the remaining soft tissues. The subcutaneous tissues of each and surgical site were reapproximated and coapted utilizing 3-0 Vicryl. The skin of each surgical site was reapproximated coapted utilizing 3-0 nylon in a simple interrupted and horizontal mattress fashion. Neurovascular status was assessed at the end of the operation and deemed intact to the right lower extremity. Each surgical site was then dressed Betadine soaked gauze, and a dry sterile dressing consisting of 4 x 4 gauze wrapped with Kerlix. The right foot and ankle were then wrapped with an Samir bandage. Neurovascular status was assessed once again and deemed intact to the right lower extremity. The patient tolerated the anesthesia and the procedure well and was transported to the PACU with vital signs stable and neurovascular status intact to the right lower extremity. After period of postoperative monitoring, patient will be transferred back to the general medical floor. At this time, I recommend continuation of broad-spectrum IV antibiotics. I recommend to keep the dressing clean, dry, intact to the right lower extremity with reinforcement as needed. Patient is to remain nonweightbearing to the right foot at this time with bathroom privileges. I will continue to follow patient closely and update accordingly. - Complications None - Admit VTE Documentation VTE Present on Admission: No VTE Mechan Device Prophylaxis: SCD's VTE Pharm Prophylaxis ordered?: Yes
[2019-09-17] MEDS: Bupivacaine Mpf 0.5% 30 ML VIAL (15:08)
[2019-09-17 16:01] LABS: Bedside Glucose 118 mg/dL (70-110)
--- NOTE | 2019-09-17 16:02 | RAD_ITS ---
STUDY: X-RAY - RIGHT FOOT CLINICAL: Male, 69 years old. POST OP RIGHT FOOT 2ND AND 3RD TOES PARTIAL AMPUTATION TECHNIQUE: 3 view(s) of the foot. COMPARISON: None. FINDINGS: Normal talus, calcaneus, and tarsal bones. Normal visualized subtalar, talonavicular, calcaneocuboid, tarsal and tarsometatarsal articulations. Normal metatarsi. Normal metatarsophalangeal joint of the great toe. Normal tibial and fibular sesamoid bones. Normal interphalangeal joint of the great toe. Normal phalanges of the great toe. Normal second through fifth metatarsophalangeal joints. Normal interphalangeal joints. Postsurgical changes status post amputation of the second and third toes through the distal phalanges.. There is soft tissue swelling seen at the sites.. RAD/Foot min 3 Views IMPRESSION: Postsurgical changes status post amputation of the second and third toes through the distal phalanges Electronically Signed: Mitchel Castillo MD at 21:08 EDT , Service support ,
[2019-09-17] MEDS: metFORMIN HCl 500 MG Tablet 1500 MG PO (17:35)
[2019-09-17] MEDS: Glimepiride 4 MG Tablet PO (17:35)
[2019-09-17 17:41] LABS: Bedside Glucose 111 mg/dL (70-110)
[2019-09-17] MEDS: 0.9% Saline Lock 10 ML Syringe IV (21:30)
[2019-09-17] MEDS: Heparin Injection (Vial) 5,000 UNIT/ML VIAL 5000 UNIT SC (22:17)
[2019-09-17] MEDS: Doxazosin 1 MG Tablet PO (22:17)
[2019-09-17 23:21] LABS: Bedside Glucose 128 mg/dL (70-110)
[2019-09-18] VITALS (7 sets, daily range): BP systolic 129–152; BP diastolic 70–93; PULSE 75–92; RESP 18; TEMP 36.6–36.9; O2SAT 97–100; BMI 46.6
[2019-09-18 06:56] LABS: Bedside Glucose 157 mg/dL (70-110)
--- NOTE | 2019-09-18 07:33 | PCM.PN.ORT ---
Patient Problems: Active and Suspected Problems (Last Reviewed 05/25/19 @ 14:43 by Brea Castañeda) Osteomyelitis of third toe of right foot (Acute) Osteomyelitis of second toe of right foot (Acute) Subjective: Patient seen at bedside resting comfortably. Patient denies pain to right foot at this time. Patient admits that after the surgery he felt like he was in a dream state, and according to the nursing staff, was combative. Security was called. After time and observation, patient returned to his normal mental state. Patient states that he feels fine at this time, and denies any other complaints. No other acute events reported overnight by nursing staff since the incident postsurgical. Currently, patient denies fever, chills, nausea, vomiting, shortness of breath, chest pain. Patient denies right calf pain. Objective: Lower extremity physical exam: Dressing is clean, dry, intact to the right lower extremity. No evidence of strikethrough noted. No evidence of dishevelment noted. Capillary fill time is delayed to digits 1, 4, 5 of the right foot, but is intact. Gross and protective sensation are absent to the digits of the right foot. Toes are warm to the touch at this time and comparable to the contralateral lower extremity. Foot and ankle appear in a rectus position at this time. Patient was seen at bedside. Foot was not elevated at this time. - Physical Exam Vitals/I&O's: Vital Signs Temp Pulse Resp BP Pulse Ox 98.4 F 79 18 149/80 H 97 09/18/19 04:00 09/18/19 04:00 09/18/19 04:00 09/18/19 04:00 09/18/19 04:00 Oxygen Flow Rate (L/min) 2 Oxygen Delivery Method Room Air Weight: 131.065 kg Body Mass Index (BMI) 46.6 Finger Stick Blood Glucose 118 Intake and Output for Last 24 Hours 09/16/19 09/17/19 09/18/19 23:59 23:59 23:59 Intake Total 2925.00 / 2925.00 2880.00 / 2880.00 594 / 594 Balance 2925.00 / 2925.00 2880.00 / 2880.00 594 / 594 General: Alert, Oriented x3, Cooperative, No apparent distress HEENT: Atraumatic, PERRLA Oral: Moist Mucosa Neck: Supple, No JVD Lungs: Clear to auscultation Cardiovascular: Irregular Rate Abdomen: Bowel Sounds Present, Soft, Non Tender, Obese Extremities: Diminished Peripheral Pulses Musculoskeletal: No Tenderness to Palpation of Joints or Extremities Neurological: Motor Exam 5/5 strength throughout Psych/Mental Status: Alert and oriented to time, place, person, mood and affect Microbiology Past 72 Hours 09/15/19 09:00 Wound - Toe Gram Stain - Final 09/15/19 09:00 Wound - Toe Wound Culture - Preliminary Staphylococcus aureus Coag Negative Staph 09/15/19 10:20 Blood Culture (Wb) - Anticubital Left Blood Culture - Preliminary No growth in 48 hours. 09/15/19 10:13 Blood Culture (Wb) - Anticubital Right Blood Culture - Preliminary No growth in 48 hours. WOUND CULTURES/PATHOLOGY taken in operating room on 09/17/2019: PENDING Lower extremity arterial studies: Official report is in chart. Official report reviewed with the patient and in detail. Laboratory Results 09/17/19 11:38: POC Glucose 113 H 09/17/19 15:55: POC Glucose 118 H 09/17/19 16:41: POC Glucose 111 H 09/17/19 21:40: POC Glucose 128 H 09/18/19 06:45: POC Glucose 157 H STUDY: X-RAY - RIGHT FOOT CLINICAL: Male, 69 years old. POST OP RIGHT FOOT 2ND AND 3RD TOES PARTIAL AMPUTATION TECHNIQUE: 3 view(s) of the foot. COMPARISON: None. FINDINGS: Normal talus, calcaneus, and tarsal bones. Normal visualized subtalar, talonavicular, calcaneocuboid, tarsal and tarsometatarsal articulations. Normal metatarsi. Normal metatarsophalangeal joint of the great toe. Normal tibial and fibular sesamoid bones. Normal interphalangeal joint of the great toe. Normal phalanges of the great toe. Normal second through fifth metatarsophalangeal joints. Normal interphalangeal joints. Postsurgical changes status post amputation of the second and third toes through the distal phalanges.. There is soft tissue swelling seen at the sites.. RAD/Foot min 3 Views IMPRESSION: Postsurgical changes status post amputation of the second and third toes through the distal phalanges Electronically Signed: Mitchel Castillo MD at 21:08 EDT , Service support , Current Medications Acetaminophen (Tylenol) 650 mg PO Q6H PRN PRN PRN Reason: Pain Score 1-10/Temp > 100.7 F Last Admin: 09/16/19 02:16 Dose: 650 mg Documented by: Amlodipine Besylate (Norvasc) 5 mg PO DAILY [facility] Last Admin: 09/17/19 10:54 Dose: Not Given Documented by: Ascorbic Acid (Vitamin C) 1,000 mg PO DAILY [facility] Last Admin: 09/17/19 10:54 Dose: Not Given Documented by[facility] Last Admin: 09/17/19 08:33 Dose: Not Given Documented by: Dextrose (D50w Syringe) 0 gm IV X1 PRN; Protocol PRN Reason: Hypoglycemia Doxazosin Mesylate (Cardura) 1 mg PO QHS [facility] Last Admin: 09/17/19 22:17 Dose: 1 mg Documented by: Glimepiride (Amaryl) 4 mg PO BIDCM [facility] Last Admin: 09/17/19 17:35 Dose: 4 mg Documented by: Glucagon () 1 mg IM .X1 PRN PRN Reason: Hypoglycemia Haloperidol Lactate (Haldol) 2 mg IM Q3H PRN PRN PRN Reason: AGITATION Heparin Sodium (Porcine) (Heparin Na) 5,000 unit SC Q12 [facility] Last Admin: 09/17/19 22:17 Dose: 5,000 unit Documented by: Hydrochlorothiazide () 12.5 mg PO DAILY [facility] Last Admin: 09/17/19 10:54 Dose: Not Given Documented by: Piperacillin Sod/Tazobactam (Sod 3.375 gm/ Sodium Chloride) 50 mls @ 12.5 mls/hr IV Q8 [facility] Last Admin: 09/18/19 06:06 Dose: 12.5 mls/hr Documented by: Vancomycin IV Pharmacy to Dose (1 ea/ Sodium Chloride) 500 mls @ 250 mls/hr IV PRN PRN; Protocol PRN Reason: Rx to Dose Vancomycin HCl 1,500 mg/ (Sodium Chloride) 530 mls @ 250 mls/hr IV Q8H [facility]I Last Admin: 09/18/19 04:37 Dose: 250 mls/hr Documented by: Sodium Chloride () 250 mls @ 15 mls/hr IV .[id number] PRN PRN Reason: Saline Flush Last Infusion: 09/18/19 04:37 Dose: 0 mls/hr Documented by: Sodium Chloride () 250 mls @ 15 mls/hr IV .[id number] PRN PRN Reason: Additional IVPB Infusion Last Infusion: 09/18/19 06:07 Dose: 0 mls/hr Documented by: Insulin Glargine (Lantus ([facility])) 56 units SC QHS [facility]I Last Admin: 09/17/19 22:18 Dose: 50 u Documented by: Insulin Human Lispro (Humalog Kwikpen ([facility])) 0 unit SC ACHS [facility]I; Protocol Last Admin: 09/18/19 06:50 Dose: Not Given Documented by: Lisinopril (Zestril) 20 mg PO DAILY [facility] Last Admin: 09/17/19 10:54 Dose: Not Given Documented by: Metformin HCl (Glucophage) 1,500 mg PO DINNER [facility] Last Admin: 09/17/19 17:35 Dose: 1,500 mg Documented by: Metoprolol Tartrate (Lopressor (Beta Veronique)) 50 mg PO BID [facility] Last Admin: 09/17/19 22:16 Dose: 50 mg Documented by: Sodium Chloride () 10 - 40 ml IV UD PRN PRN Reason: SALINE FLUSH Last Admin: 09/17/19 21:30 Dose: 20 ml Documented by: Medical Necessity - Tobacco Use Smoking Status: Never smoker Tobacco Use: Chew Assessment/Plan All Active Problems (Last Reviewed 05/25/19 @ 14:43 by Brea Castañeda) Osteomyelitis of third toe of right foot (Acute) Osteomyelitis of second toe of right foot (Acute) Assessment: This is a 69-year-old male who is 1 day status post partial amputation of the second and third digits of the right foot secondary to osteomyelitis Plan: Patient chart reviewed and patient evaluated. Full discussion had with the patient about the patient's current clinical condition. At this time, I discussed with the patient that the remaining bone and soft tissue in the operating room appeared healthy with no signs of infection or necrosis. Furthermore, there was adequate bleeding noted. I did discuss with the patient the results of the arterial studies. He does have disease present. I discussed with the patient that he may need a vascular evaluation at a later date pending healing. Patient displayed verbal understanding to this. I discussed with the patient that we are still awaiting the cultures and pathology from the operating room. This may take some time. I discussed with the patient that would like him to keep the dressing clean, dry, intact to the right foot. He is to not get the dressing wet or remove dressing. Dressing is to be reinforced PRN. I discussed with the patient that would like him to elevate his right foot above the level of heart as often as possible. Him sitting with his foot down will increase in swelling, and can decrease the chances of healing. I discussed with the patient that would like him to remain nonweightbearing to the right foot at this time. I discussed with him that the more weight he put on his right foot, he may disturb the sutures that are in place and lead to nonhealing of the surgical sites. At this time, I recommend continuation of broad-spectrum IV antibiotics per Dr. Manning. Patient will follow up with either myself or the nurse practitioner in my office after discharge, likely Saturday or Saturday of next week. I will have my office contact the patient to schedule the appointment. At this time, there is no further intervention from my point of view. We will next to the patient on an outpatient basis. Follow up instructions in chart. Please do not hesitate to reach out to me if there are any questions or concerns. Thank you very much for allowing me to take part in the care of your patient.
--- NOTE | 2019-09-18 07:44 | DCINST_ITS ---
Discharge Activity: May Not Drive, May Not Shower, Use Walker, Use Crutches Weight Bearing Status: No weight bearing Keep extremity elevated above heart level: Right Leg Additional Activity Instructions:: 1. Keep dressing clean, dry, intact to the right foot. Do not get dressing wet. Do not remove dressing. If get dressing wet, call office for further instruction. 2. Elevate right foot above level of heart as often as possible. 3. Do not walk or stand on right foot. Use cru tches or walker for assistance. 4. Patient may perform movement of right ankle joint during periods of rest. Call your doctor if your incision/area has: Sudden Increased Bleeding, Increased Pain/ Swelling Call your doctor if you observe: Fever of 101 or Higher, Shortness of breath, Chest pain, Prolonged hiccoughing, Increased palpitations (irregular heartbeat), Calf discomfort Suture Line Care: Avoid Pulling/Pushing, Avoid Pinching/Bending Cleanse incision/area with: Keep Dressing Clean & Dry Allergies/Adverse Reactions: Allergies hydrocodone [From Vicodin] Adverse Reaction (Severe, Verified 09/15/19 09:43) Hives ramipril [From Altace] Adverse Reaction (Severe, Verified 09/15/19 09:43) Fast HR valsartan [From Diovan] Adverse Reaction (Severe, Verified 09/15/19 09:43) Fast HR Dzoqdtw-Our-Tde Reductase Inhibitor Adverse Reaction (Intermediate, Verified 09/15/19 09:43) Muscle aches Medications to take at Discharge ascorbic acid (vitamin C) 1,000 mg tablet 1,000 mg PO DAILY tab 05/30/17 aspirin 325 mg tablet 325 mg PO DAILY tab 05/30/17 glimepiride 4 mg tablet 4 mg PO BID tab 05/30/17 metformin 500 mg tablet 1,000 mg PO DAILY 05/30/17 nitroglycerin 0.4 mg sublingual tablet 0.4 mg SUBLINGUAL Q5M PRN 05/30/17 biotin 1 mg tablet 1 mg PO DAILY 05/25/19 insulin glargine 100 unit/mL (3 mL) subcutaneous pen 56 unit SC QHS ml 05/25/19 omega-3 fatty acids 1,000 mg capsule 3,000 mg PO DAILY cap 05/25/19 Amlodipine Besylate [Norvasc] 5 mg PO DAILY 09/15/19 Doxazosin Mesylate 1 mg PO QHS 09/15/19 Lisinopril/Hydrochlorothiazide [Lisinopril-Hctz 20-12.5 mg Tab] 1 tab PO BID 09/15/19 Metformin HCl 1,500 mg PO DAILY 09/15/19 Metoprolol Tartrate [Lopressor (beta jones)] 50 mg PO BID 09/15/19 Multivitamin with Minerals [Multiple Vitamin] 1 tab PO DAILY 09/15/19 Primary Care Physician: Krishna Reynolds MD [Primary Care Provider] - Test Results: Test results from this visit will be discussed in further detail at your follow- up appointment, if applicable. Please Follow Up With: Gary Chandler DPM When: During week of 09/20
[2019-09-18] MEDS: Glimepiride 4 MG Tablet PO ×2 (07:57→16:57)
[2019-09-18] MEDS: Ascorbic Acid 500 MG Tablet 1000 MG PO (07:57)
[2019-09-18] MEDS: Aspirin 325 MG Tablet PO (07:57)
[2019-09-18] MEDS: hydroCHLOROthiazide 12.5mg 12.5 MG PO (07:58)
[2019-09-18] MEDS: Lisinopril 20 MG Tablet PO (07:58)
[2019-09-18] MEDS: amLODIPine 5 MG Tablet PO (07:58)
[2019-09-18] MEDS: Metoprolol Tartrate 50 MG Tablet PO ×2 (07:58→21:29)
[2019-09-18] MEDS: Heparin Injection (Vial) 5,000 UNIT/ML VIAL 5000 UNIT SC ×2 (10:36→21:29)
[2019-09-18 11:45] LABS: Bedside Glucose 123 mg/dL (70-110)
--- NOTE | 2019-09-18 11:45 | PCM.PN.HOSP ---
Patient Problems: Active and Suspected Problems (Last Reviewed 05/25/19 @ 14:43 by Brea Castañeda) Osteomyelitis of third toe of right foot (Acute) Osteomyelitis of second toe of right foot (Acute) Reason for Visit: osteomyelitis Vitals/I&O's: Vital Signs Temp Pulse Resp BP Pulse Ox 36.7 C 88 18 152/93 H 100 09/18/19 07:56 09/18/19 07:58 09/18/19 07:56 09/18/19 07:56 09/18/19 07:56 Oxygen Flow Rate (L/min) 2 Oxygen Delivery Method Room Air Weight: 131.065 kg Body Mass Index (BMI) 46.6 Finger Stick Blood Glucose 118 Intake and Output for Last 24 Hours 09/16/19 09/17/19 09/18/19 23:59 23:59 23:59 Intake Total 2925.00 / 2925.00 2880.00 / 2880.00 1174 / 1174 Balance 2925.00 / 2925.00 2880.00 / 2880.00 1174 / 1174 General: Alert, No apparent distress HEENT: Atraumatic, Normocephalic Oral: Moist Mucosa, No Gingival or Mucosal Lesions/ Ulcerations Neck: No Nodes, Thyroid Normal Size and Texture Lungs: Clear to auscultation, Normal air movement, No rhonchi, No wheeze, No rales Cardiovascular: Regular rate, Regular Rhythm, Normal S1, Normal S2, No murmurs Abdomen: Bowel Sounds Present, Soft, Non Tender, Non-Distended, No Hepato-splenomegaly Extremities: No edema, No Calf Tenderness Psych/Mental Status: Normal Affect, Appropriate Microbiology Past 72 Hours 09/17/19 14:55 Wound - Toe Wound Culture - Preliminary No growth-Final to follow 09/17/19 14:51 Wound - Toe Wound Culture - Preliminary No growth-Final to follow 09/17/19 14:46 Tissue - Toe Wound Culture - Preliminary No growth-Final to follow 09/17/19 14:42 Tissue - Toe Wound Culture - Preliminary No growth-Final to follow 09/15/19 09:00 Wound - Toe Gram Stain - Final 09/15/19 09:00 Wound - Toe Wound Culture - Final Staphylococcus aureus Coag Negative Staph 09/15/19 10:20 Blood Culture (Wb) - Anticubital Left Blood Culture - Preliminary No growth in 48 hours. 09/15/19 10:13 Blood Culture (Wb) - Anticubital Right Blood Culture - Preliminary No growth in 48 hours. Laboratory Results 09/17/19 11:38: POC Glucose 113 H 09/17/19 15:55: POC Glucose 118 H 09/17/19 16:41: POC Glucose 111 H 09/17/19 21:40: POC Glucose 128 H 09/18/19 06:45: POC Glucose 157 H Current Medications Acetaminophen (Tylenol) 650 mg PO Q6H PRN PRN PRN Reason: Pain Score 1-10/Temp > 100.7 F Last Admin: 09/16/19 02:16 Dose: 650 mg Documented by: Amlodipine Besylate (Norvasc) 5 mg PO DAILY [facility] Last Admin: 09/18/19 07:58 Dose: 5 mg Documented by: Ascorbic Acid (Vitamin C) 1,000 mg PO DAILY [facility] Last Admin: 09/18/19 07:57 Dose: 1,000 mg Documented by: [facility] Admin: 09/18/19 07:57 Dose: 325 mg Documented by: Dextrose (D50w Syringe) 0 gm IV X1 PRN; Protocol PRN Reason: Hypoglycemia Doxazosin Mesylate (Cardura) 1 mg PO QHS [facility] Last Admin: 09/17/19 22:17 Dose: 1 mg Documented by: Glimepiride (Amaryl) 4 mg PO BIDCM [facility] Last Admin: 09/18/19 07:57 Dose: 4 mg Documented by: Glucagon () 1 mg IM .X1 PRN PRN Reason: Hypoglycemia Haloperidol Lactate (Haldol) 2 mg IM Q3H PRN PRN PRN Reason: AGITATION Heparin Sodium (Porcine) (Heparin Na) 5,000 unit SC Q12 [facility] Last Admin: 09/18/19 10:36 Dose: 5,000 unit Documented by: Hydrochlorothiazide () 12.5 mg PO DAILY [facility] Last Admin: 09/18/19 07:58 Dose: 12.5 mg Documented by: Piperacillin Sod/Tazobactam (Sod 3.375 gm/ Sodium Chloride) 50 mls @ 12.5 mls/hr IV Q8 [facility] Last Infusion: 09/18/19 10:06 Dose: Infused Documented by: Vancomycin IV Pharmacy to Dose (1 ea/ Sodium Chloride) 500 mls @ 250 mls/hr IV PRN PRN; Protocol PRN Reason: Rx to Dose Vancomycin HCl 1,500 mg/ (Sodium Chloride) 530 mls @ 250 mls/hr IV Q8H [facility] Last Infusion: 09/18/19 07:37 Dose: Infused Documented by: Sodium Chloride () 250 mls @ 15 mls/hr IV .[id number] PRN PRN Reason: Saline Flush Last Infusion: 09/18/19 07:37 Dose: 0 mls/hr Documented by: Sodium Chloride () 250 mls @ 15 mls/hr IV .[id number] PRN PRN Reason: Additional IVPB Infusion Last Infusion: 09/18/19 10:06 Dose: 15 mls/hr Documented by: Insulin Glargine (Lantus ([facility])) 56 units SC QHS [facility] Last Admin: 09/17/19 22:18 Dose: 50 u Documented by: Insulin Human Lispro (Humalog Kwikpen ([facility])) 0 unit SC ACHS [facility]; Protocol Last Admin: 09/18/19 06:50 Dose: Not Given Documented by: Lisinopril (Zestril) 20 mg PO DAILY [facility] Last Admin: 09/18/19 07:58 Dose: 20 mg Documented by: Metformin HCl (Glucophage) 1,500 mg PO DINNER [facility] Last Admin: 09/17/19 17:35 Dose: 1,500 mg Documented by: Metoprolol Tartrate (Lopressor (Beta Veronique)) 50 mg PO BID [facility] Last Admin: 09/18/19 07:58 Dose: 50 mg Documented by: Sodium Chloride () 10 - 40 ml IV UD PRN PRN Reason: SALINE FLUSH Last Admin: 09/17/19 21:30 Dose: 20 ml Documented by: STROKE Vital Signs/Narrative: Vital Signs Temp Pulse Resp BP Pulse Ox 09/18/19 07:58 88 09/18/19 07:56 36.7 C 88 18 152/93 H 100 Medical Necessity - Tobacco Use Smoking Status: Never smoker Tobacco Use: Chew Assessment/Plan All Active Problems (Last Reviewed 05/25/19 @ 14:43 by Brea Castañeda) Osteomyelitis of third toe of right foot (Acute) Osteomyelitis of second toe of right foot (Acute) 1. Osteomyelitis of the right second and third toe: Plan for amputation on 09/16. Continue with Pipracil and/tazobactam and vancomycin. Follow-up cultures. ID following. Cultures showing S. aureus and BARREL STRAIGHTENER 2. DM2 fair control continue Basal insulin, SSI, metformin, glyburide 3. pafib has not tolerated warfarin in past due to hematuria continue metoprolol resume ASA post operative 4. VTE prophylaxis: resume chemical prophylaxis post operative. Inpatient E&M: 86850 Subs Hosp L2
[2019-09-18 13:55] LABS: Vancomycin, Trough Level 43.6 ug/mL (5.0-15.0)
--- NOTE | 2019-09-18 14:45 | NURSING ---
1300 dose of Vanc stopped at this time after Luís from pharmacy called and made this RN aware of high vanc trough level from lab.
--- NOTE | 2019-09-18 14:54 | PCM.PN.ID ---
Patient Problems: Active and Suspected Problems (Last Reviewed 05/25/19 @ 14:43 by Brea Castañeda) Osteomyelitis of third toe of right foot (Acute) Osteomyelitis of second toe of right foot (Acute) Subjective: Feeling well, no fever, no n/v/d. - Physical Exam Vitals/I&O's: Vital Signs Temp Pulse Resp BP Pulse Ox 97.8 F 75 18 146/88 H 97 09/18/19 14:00 09/18/19 14:00 09/18/19 14:00 09/18/19 14:00 09/18/19 14:00 Oxygen Flow Rate (L/min) 2 Oxygen Delivery Method Room Air Weight: 131.065 kg Body Mass Index (BMI) 46.6 Finger Stick Blood Glucose 118 Intake and Output for Last 24 Hours 09/16/19 09/17/19 09/18/19 23:59 23:59 23:59 Intake Total 2925.00 / 2925.00 2880.00 / 2880.00 2067.67 / 2067.67 Balance 2925.00 / 2925.00 2880.00 / 2880.00 2067.67 / 2066.67 General: Alert, Cooperative, No apparent distress Lungs: Clear to auscultation, Normal air movement Cardiovascular: Regular rate, Regular Rhythm Abdomen: Soft, Non Tender, Non-Distended Skin: Ulcer/ Wound - foot wrapped Microbiology Past 72 Hours 09/17/19 14:55 Wound - Toe Gram Stain - Final 09/17/19 14:55 Wound - Toe Wound Culture - Preliminary No growth-Final to follow 09/17/19 14:51 Wound - Toe Gram Stain - Final 09/17/19 14:51 Wound - Toe Wound Culture - Preliminary No growth-Final to follow 09/17/19 14:46 Tissue - Toe Gram Stain - Final 09/17/19 14:46 Tissue - Toe Wound Culture - Preliminary No growth-Final to follow 09/17/19 14:42 Tissue - Toe Gram Stain - Final 09/17/19 14:42 Tissue - Toe Wound Culture - Preliminary No growth-Final to follow 09/15/19 09:00 Wound - Toe Gram Stain - Final 09/15/19 09:00 Wound - Toe Wound Culture - Final Staphylococcus aureus Coag Negative Staph 09/15/19 10:20 Blood Culture (Wb) - Anticubital Left Blood Culture - Preliminary No growth in 48 hours. 09/15/19 10:13 Blood Culture (Wb) - Anticubital Right Blood Culture - Preliminary No growth in 48 hours. Laboratory Results 09/17/19 15:55: POC Glucose 118 H 09/17/19 16:41: POC Glucose 111 H 09/17/19 21:40: POC Glucose 128 H 09/18/19 06:45: POC Glucose 157 H 09/18/19 11:37: POC Glucose 123 H 09/18/19 12:45: Vancomycin Trough 43.6 H Current Medications Acetaminophen (Tylenol) 650 mg PO Q6H PRN PRN PRN Reason: Pain Score 1-10/Temp > 100.7 F Last Admin: 09/16/19 02:16 Dose: 650 mg Documented by: Amlodipine Besylate (Norvasc) 5 mg PO DAILY [facility] Last Admin: 09/18/19 07:58 Dose: 5 mg Documented by: Ascorbic Acid (Vitamin C) 1,000 mg PO DAILY [facility] Last Admin: 09/18/19 07:57 Dose: 1,000 mg Documented by: [facility] Last Admin: 09/18/19 07:57 Dose: 325 mg Documented by: Dextrose (D50w Syringe) 0 gm IV X1 PRN; Protocol PRN Reason: Hypoglycemia Doxazosin Mesylate (Cardura) 1 mg PO QHS [facility] Last Admin: 09/17/19 22:17 Dose: 1 mg Documented by: [facility] ([facility]l) [facility] Last Admin: 09/18/19 07:57 Dose: 4 mg Documented by: Glucagon () 1 mg IM .X1 PRN PRN Reason: Hypoglycemia Haloperidol Lactate (Haldol) 2 mg IM Q3H PRN PRN PRN Reason: AGITATION Heparin Sodium (Porcine) (Heparin Na) 5,000 unit SC Q12 [facility] Last Admin: 09/18/19 10:36 Dose: 5,000 unit Documented by: Hydrochlorothiazide () 12.5 mg PO DAILY [facility] Last Admin: 09/18/19 07:58 Dose: 12.5 mg Documented by: Piperacillin Sod/Tazobactam (Sod 3.375 gm/ Sodium Chloride) 50 mls @ 12.5 mls/hr IV Q8 [facility] Last Admin: 09/18/19 14:24 Dose: 12.5 mls/hr Documented by: Vancomycin IV Pharmacy to Dose (1 ea/ Sodium Chloride) 500 mls @ 250 mls/hr IV PRN PRN; Protocol PRN Reason: Rx to Dose Vancomycin HCl 1,500 mg/ (Sodium Chloride) 530 mls @ 250 mls/hr IV Q8H [facility] Last Infusion: 09/18/19 14:44 Dose: Infused Documented by: Sodium Chloride () 250 mls @ 15 mls/hr IV .[id number] PRN PRN Reason: Saline Flush Last Infusion: 09/18/19 07:37 Dose: 0 mls/hr Documented by: Sodium Chloride () 250 mls @ 15 mls/hr IV .[id number] PRN PRN Reason: Additional IVPB Infusion Last Infusion: 09/18/19 14:24 Dose: 0 mls/hr Documented by: Insulin Glargine (Lantus (Bk)) 56 units SC QHS [facility] Last Admin: 09/17/19 22:18 Dose: 50 u Documented by: Insulin Human Lispro (Humalog Kwikpen ([facility])) 0 unit SC ACHS [facility]; Protocol Last Admin: 09/18/19 12:26 Dose: Not Given Documented by: Lisinopril (Zestril) 20 mg PO DAILY [facility] Last Admin: 09/18/19 07:58 Dose: 20 mg Documented by: Metformin HCl (Glucophage) 1,500 mg PO DINNER [facility] Last Admin: 09/17/19 17:35 Dose: 1,500 mg Documented by: Metoprolol Tartrate (Lopressor (Beta Veronique)) 50 mg PO BID [facility] Last Admin: 09/18/19 07:58 Dose: 50 mg Documented by: Sodium Chloride () 10 - 40 ml IV UD PRN PRN Reason: SALINE FLUSH Last Admin: 09/17/19 21:30 Dose: 20 ml Documented by: Medical Necessity - Tobacco Use Smoking Status: Never smoker Tobacco Use: Chew Route of nutrition/ use of supplements: [] Nutritional Intake: [] IV Site: [] Taylor Catheter: [] - Assessment/Plan Antibiotics: [] Assessment/Plan: [] Active and Suspected Problems (Last Reviewed 05/25/19 @ 14:43 by Brea Castañeda) Osteomyelitis of third toe of right foot (Acute) Osteomyelitis of second toe of right foot (Acute) OR 09/16 for amputation of 2nd and 3rd toes with Dr. Chandler. Wound cx showing MSSA and CoNS. No fever, normal wbc. Cont empiric vanc/zosyn for now. If surg margins are clear, plan for discharge tomorrow with short course of po abx. Will follow
--- NOTE | 2019-09-18 15:11 | PCM.RX.CS ---
Consult Pharmacy has been consulted to manage selected antiobiotic: Vancomycin Type of Consult: Follow-up Suspected Infection: Osteomyelitis Prior Doses of Antibiotics Received/Current Regimen: Vancomycin 1500mg IV Q8H - 09/17 @ 6017, @ 7812 Labs: Sodium 140 mmol/L (136-145) 09/17/19 05:25 Potassium 4.0 mmol/L (3.5-5.1) 09/17/19 05:25 Chloride 105 mmol/L (98-107) 09/17/19 05:25 Carbon Dioxide 28.0 mmol/L (21.0-32.0) 09/17/19 05:25 Anion Gap 7 (5-15) 09/17/19 05:25 BUN 15 mg/dL (7-18) 09/17/19 05:25 Creatinine 0.84 mg/dL (0.70-1.30) 09/17/19 05:25 Est GFR (MDRD) Af Amer 116 mL/min (>60) 09/17/19 05:25 Est GFR (MDRD) Non-Af 96 mL/min (>60) 09/17/19 05:25 BUN/Creatinine Ratio 17.8 RATIO (10-20) 09/17/19 05:25 Glucose 127 mg/dL (74-106) H 09/17/19 05:25 Vancomycin Trough 43.6 ug/mL (5.0-15.0) H 09/18/19 12:45 Microbiology: Microbiology 09/17/19 14:55 Wound - Toe Gram Stain - Final 09/17/19 14:55 Wound - Toe Wound Culture - Preliminary No growth-Final to follow 09/17/19 14:51 Wound - Toe Gram Stain - Final 09/17/19 14:51 Wound - Toe Wound Culture - Preliminary No growth-Final to follow 09/17/19 14:46 Tissue - Toe Gram Stain - Final 09/17/19 14:46 Tissue - Toe Wound Culture - Preliminary No growth-Final to follow 09/17/19 14:42 Tissue - Toe Gram Stain - Final 09/17/19 14:42 Tissue - Toe Wound Culture - Preliminary No growth-Final to follow 09/15/19 09:00 Wound - Toe Gram Stain - Final 09/15/19 09:00 Wound - Toe Wound Culture - Final Staphylococcus aureus Coag Negative Staph 09/15/19 10:20 Blood Culture (Wb) - Anticubital Left Blood Culture - Preliminary No growth in 48 hours. 09/15/19 10:13 Blood Culture (Wb) - Anticubital Right Blood Culture - Preliminary No growth in 48 hours. Weight used for dosin kg Estimated Creatinine Clearance: 75 Goal Trough: 15-20 mcg/mL Pharmacy Plan for Drug Dosin. 8 hour trough came back supratherapeutic at 43.6 mg/dL 2. Nurse has already hung bag (about 1/2 of the bag has infused). Another pharmacist called to ask nurse to stop infusion. 3. Vancomycin on hold. Will get a random level in 24 hours. Last SCr from 09/16. SCr ordered for tomorrow (at the same time as random level) to see if it has increased. 4. Pharmacy Service will continue to monitor and adjust dosing as required. Labs to be done on [date and time ordered]: 09/19/2019 @ 1973
[2019-09-18] MEDS: metFORMIN HCl 500 MG Tablet 1500 MG PO (16:57)
[2019-09-18 17:01] LABS: Bedside Glucose 78 mg/dL (70-110)
[2019-09-18] MEDS: Doxazosin 1 MG Tablet PO (21:28)
[2019-09-18 23:21] LABS: Bedside Glucose 85 mg/dL (70-110)
[2019-09-18 23:21] LABS: Bedside Glucose 57 mg/dL (70-110)
[2019-09-19] VITALS: PULSE 92; O2SAT 100; BMI 46.6
[2019-09-19 02:00] VITALS: BP 142/72; PULSE 83; RESP 16; TEMP 36.6; O2SAT 100
[2019-09-19 02:36] LABS: Bedside Glucose 70 mg/dL (70-110)
[2019-09-19 04:00] VITALS: BMI 46.6
[2019-09-19 06:41] LABS: Bedside Glucose 115 mg/dL (70-110)
[2019-09-19 08:00] VITALS: BMI 46.6
[2019-09-19 11:02] VITALS: BP 144/90; PULSE 68; RESP 18; TEMP 36.7; O2SAT 98
[2019-09-19] MEDS: Heparin Injection (Vial) 5,000 UNIT/ML VIAL 5000 UNIT SC (11:04)
[2019-09-19] MEDS: Aspirin 325 MG Tablet PO (11:04)
[2019-09-19] MEDS: Glimepiride 4 MG Tablet PO (11:04)
[2019-09-19 11:05] VITALS: PULSE 68
[2019-09-19] MEDS: Ascorbic Acid 500 MG Tablet 1000 MG PO (11:05)
[2019-09-19] MEDS: hydroCHLOROthiazide 12.5mg 12.5 MG PO (11:05)
[2019-09-19] MEDS: amLODIPine 5 MG Tablet PO (11:05)
[2019-09-19] MEDS: Lisinopril 20 MG Tablet PO (11:05)
[2019-09-19] MEDS: Metoprolol Tartrate 50 MG Tablet PO (11:05)
--- NOTE | 2019-09-19 11:27 | DCINST_ITS ---
- Discharge Diagnoses Current Active Problems: Current Active and Chronic Problems (Last Reviewed 05/25/19 @ 14:43 by Brea Castañeda) Osteomyelitis of third toe of right foot (Acute) Osteomyelitis of second toe of right foot (Acute) Type 2 diabetes mellitus (Chronic) You will use the following diet at home:: Calorie/Carbohydrate Controlled (specify 1200, 1400, etc) - 1800 Your food should be the consistency of: Regular Your liquids should be the consistency of: Regular/Thin Discharge Activity: May Not Drive, May Not Shower, Use Walker, Use Crutches Weight Bearing Status: No weight bearing Keep extremity elevated above heart level: Right Leg Additional Activity Instructions:: 1. Keep dressing clean, dry, intact to the right foot. Do not get dressing wet. Do not remove dressing. If get dressing wet, call office for further instruction. 2. Elevate right foot above level of heart as often as possible. 3. Do not walk or stand on right foot. Use crut ches or walker for assistance. 4. Patient may perform movement of right ankle joint during periods of rest. Call your doctor if your incision/area has: Sudden Increased Bleeding, Increased Pain/ Swelling Call your doctor if you observe: Fever of 101 or Higher, Shortness of breath, Chest pain, Prolonged hiccoughing, Increased palpitations (irregular heartbeat), Calf discomfort Suture Line Care: Avoid Pulling/Pushing, Avoid Pinching/Bending Cleanse incision/area with: Keep Dressing Clean & Dry Allergies/Adverse Reactions: Allergies hydrocodone [From Vicodin] Adverse Reaction (Severe, Verified 09/15/19 09:43) Hives ramipril [From Altace] Adverse Reaction (Severe, Verified 09/15/19 09:43) Fast HR valsartan [From Diovan] Adverse Reaction (Severe, Verified 09/15/19 09:43) Fast HR Szkkkfg-[id number]-Epd Reductase Inhibitor Adverse Reaction (Intermediate, Verified 09/15/19 09:43) Muscle aches Medications to take at Discharge ascorbic acid (vitamin C) 1,000 mg tablet 1,000 mg PO DAILY tab 05/30/17 aspirin 325 mg tablet 325 mg PO DAILY tab 05/30/17 glimepiride 4 mg tablet 4 mg PO BID tab 05/30/17 metformin 500 mg tablet 1,000 mg PO DAILY 05/30/17 nitroglycerin 0.4 mg sublingual tablet 0.4 mg SUBLINGUAL Q5M PRN 05/30/17 biotin 1 mg tablet 1 mg PO DAILY 05/25/19 insulin glargine 100 unit/mL (3 mL) subcutaneous pen 56 unit SC QHS ml 05/25/19 omega-3 fatty acids 1,000 mg capsule 3,000 mg PO DAILY cap 05/25/19 Amlodipine Besylate [Norvasc] 5 mg PO DAILY 09/15/19 Doxazosin Mesylate 1 mg PO QHS 09/15/19 Lisinopril/Hydrochlorothiazide [Lisinopril-Hctz 20-12.5 mg Tab] 1 tab PO BID 09/15/19 Metformin HCl 1,500 mg PO DAILY 09/15/19 Metoprolol Tartrate [Lopressor (beta jones)] 50 mg PO BID 09/15/19 Multivitamin with Minerals [Multiple Vitamin] 1 tab PO DAILY 09/15/19 Acetaminophen [Tylenol Tablet] 500 mg PO Q4H PRN tablet 09/19/19 Amoxicillin/Potassium Clav [Augmentin 875-125 Tablet] 1 ea PO BID #10 tab 09/19/19 Doxycycline 100 mg PO BID #10 cap 09/19/19 The following prescriptions were given: Amoxicillin/Potassium Clav [Augmentin 875-125 Tablet] 1 ea PO BID #10 tab Transmission Status: Pending to [facility] Doxycycline 100 mg PO BID #10 cap Transmission Status: Pending to [facility] Primary Care Physician: Krishna Reynolds MD [Primary Care Provider] - Within 2 Weeks Test Results: Test results from this visit will be discussed in further detail at your follow- up appointment, if applicable. Please Follow Up With: Gary Chandler DPM When: During week of 09/20 Please Follow Up With: Son Deluna MD When: 11/25/2019, already scheduled Proposed Discharge Date: 09/19/19
--- NOTE | 2019-09-19 11:30 | DS.PCM_ITS ---
Discharge Date and Diagnosis - Problem List Patient Problems: Active and Suspected Problems (Last Reviewed 05/25/19 @ 14:43 by Brea Castañeda) Osteomyelitis of third toe of right foot (Acute) Osteomyelitis of second toe of right foot (Acute) Date of Admission: 09/15/19 Date of Discharge: 09/19/19 - Primary Discharge Diagnosis Acute Problems: Active Problems (Last Reviewed 05/25/19 @ 14:43 by Brea Castañeda) Osteomyelitis of third toe of right foot (Acute) Osteomyelitis of second toe of right foot (Acute) - Secondary Discharge Diagnosis Chronic Problems: Chronic Problems (Last Reviewed 05/25/19 @ 14:43 by rBea Castañeda) Pure hypercholesterolemia (Chronic) GERD (gastroesophageal reflux disease) (Chronic) Type 2 diabetes mellitus (Chronic) Essential hypertension (Chronic) Atherosclerotic heart disease of [place] coronary artery without angina pectoris (Chronic) Presence of coronary angioplasty implant and graft (Chronic ~06/2007) PTCA with DILIA to CFX 2nd marginal 06/30 Presence of stent in coronary artery (Chronic ~06/2007) PTCA with DILIA to CFX 2nd marginal 06/30 Paroxysmal atrial fibrillation (Chronic) Left atrial enlargement (Chronic) Tachycardia (Chronic) 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 Bone edema of the third distal phalanx without corresponding decreased T1 bone marrow signal, possibly representing early osteomyelitis. Muscle atrophy consistent with peripheral neuropathy. Electronically Signed: Tae Chavez MD at 13:27 EDT Tel , Service support , Foot X-Ray 09/17/19 16:02 IMPRESSION: Postsurgical changes status post amputation of the second and third toes through the distal phalanges Electronically Signed: Mitchel Castillo MD at 21:08 EDT , Service support , [facility] Operations: - - 1. Right foot second digit partial amputation. 2. Right foot third digit partial amputation. 3. Right foot second and third toe washout Summary of Care Provided: The patient is a 69 year old M presents with right toe wounds of the right second and third toes. Has noted discoloration since April. Patient was unable to follow-up podiatry probably due to the COVID pandemic. Patient had tried antibiotics but did not respond with that. Patient was admitted and underwent an MRI that showed osteomyelitis involving the second and third toes. Dr. Cahndler a podiatry was consulted and patient underwent right foot second digit partial amputation, right foot third digit partial amputation and washout. Margins were clean. Cultures came back as staph aureus from the initial cultures on the but subsequent cultures were all negative. Patient was seen by infectious disease who advised to 5 more days of doxycycline and Augmentin. Patient be nonweightbearing. Patient has no skilled needs and will be discharged home in stable condition. Patient will follow-up with Dr. Chandler this week. Patient did have one episode after surgery where he was very confused. Patient came to shortly afterwards and felt that he was in a dreamlike state. No harm came of anyone though he did push 1 of the nurses but no injury was sustained. [] Patient Problems: Active and Suspected Problems (Last Reviewed 05/25/19 @ 14:43 by Brea Castañeda) Osteomyelitis of third toe of right foot (Acute) Osteomyelitis of second toe of right foot (Acute) - Physical Exam Vitals/I&O's: Vital Signs Temp Pulse Resp BP Pulse Ox 36.7 C 68 18 144/90 H 98 09/19/19 11:02 09/19/19 11:05 09/19/19 11:02 09/19/19 11:02 09/19/19 11:02 Oxygen Flow Rate (L/min) 2 Oxygen Delivery Method Room Air Weight: 131.065 kg Body Mass Index (BMI) 46.6 Finger Stick Blood Glucose 118 Intake and Output for Last 24 Hours 09/17/19 09/18/19 09/19/19 23:59 23:59 23:59 Intake Total 2880.00 / 2880.00 2117.67 / 2697.67 1240 / 1240 Balance 2880.00 / 2880.00 2117.67 / 2697.67 1240 / 1240 General: Alert, No apparent distress HEENT: Atraumatic, Normocephalic Oral: Moist Mucosa, No Gingival or Mucosal Lesions/ Ulcerations Neck: No Nodes, Thyroid Normal Size and Texture Lungs: Clear to auscultation, Normal air movement, No rhonchi, No wheeze, No rales Cardiovascular: Regular rate, Regular Rhythm, Normal S1, Normal S2, No murmurs Abdomen: Bowel Sounds Present, Soft, Non Tender, Non-Distended, No Hepato- splenomegaly Extremities: - - right foot bandaged--did not remove. Microbiology Past 72 Hours 09/17/19 14:55 Wound - Toe Gram Stain - Final 09/17/19 14:55 Wound - Toe Wound Culture - Preliminary No growth-Final to follow 09/17/19 14:51 Wound - Toe Gram Stain - Final 09/17/19 14:51 Wound - Toe Wound Culture - Preliminary No growth-Final to follow 09/17/19 14:46 Tissue - Toe Gram Stain - Final 09/17/19 14:46 Tissue - Toe Wound Culture - Preliminary No growth-Final to follow 09/17/19 14:42 Tissue - Toe Gram Stain - Final 09/17/19 14:42 Tissue - Toe Wound Culture - Preliminary No growth-Final to follow 09/15/19 09:00 Wound - Toe Gram Stain - Final 09/15/19 09:00 Wound - Toe Wound Culture - Final Staphylococcus aureus Coag Negative Staph Laboratory Results 09/18/19 11:37: POC Glucose 123 H 09/18/19 12:45: Vancomycin Trough 43.6 H 09/18/19 16:54: POC Glucose 78 09/18/19 21:23: POC Glucose 57 L 09/18/19 22:05: POC Glucose 85 09/19/19 02:25: POC Glucose 70 09/19/19 06:35: POC Glucose 115 H Current Medications Acetaminophen (Tylenol) 650 mg PO Q6H PRN PRN PRN Reason: Pain Score 1-10/Temp > 100.7 F Last Admin: 09/16/19 02:16 Dose: 650 mg Documented by: Amlodipine Besylate (Norvasc) 5 mg PO DAILY [facility] Last Admin: 09/19/19 11:05 Dose: 5 mg Documented by: Ascorbic Acid (Vitamin C) 1,000 mg PO DAILY [facility] Last Admin: 09/19/19 11:05 Dose: 1,000 mg Documented by: [facility] Admin: 09/19/19 11:04 Dose: 325 mg Documented by: Dextrose (D50w Syringe) 0 gm IV X1 PRN; Protocol PRN Reason: Hypoglycemia Doxazosin Mesylate (Cardura) 1 mg PO QHS [facility] Last Admin: 09/18/19 21:28 Dose: 1 mg Documented by: Glimepiride (Amaryl) 4 mg PO BIDCM [facility] Last Admin: 09/19/19 11:04 Dose: 4 mg Documented by: Glucagon () 1 mg IM .X1 PRN PRN Reason: Hypoglycemia Haloperidol Lactate (Haldol) 2 mg IM Q3H PRN PRN PRN Reason: AGITATION Heparin Sodium (Porcine) (Heparin Na) 5,000 unit SC Q12 [facility] Last Admin: 09/19/19 11:04 Dose: 5,000 unit Documented by: Hydrochlorothiazide () 12.5 mg PO DAILY [facility] Last Admin: 09/19/19 11:05 Dose: 12.5 mg Documented by: Piperacillin Sod/Tazobactam (Sod 3.375 gm/ Sodium Chloride) 50 mls @ 12.5 mls/hr IV Q8 [facility] Last Infusion: 09/19/19 10:00 Dose: Infused Documented by: Vancomycin IV Pharmacy to Dose (1 ea/ Sodium Chloride) 500 mls @ 250 mls/hr IV PRN PRN; Protocol PRN Reason: Rx to Dose Sodium Chloride () 250 mls @ 15 mls/hr IV .[id number] PRN PRN Reason: Saline Flush Last Infusion: 09/18/19 07:37 Dose: 0 mls/hr Documented by: Sodium Chloride () 250 mls @ 15 mls/hr IV .[id number] PRN PRN Reason: Additional IVPB Infusion Last Infusion: 09/18/19 18:24 Dose: 15 mls/hr Documented by: Insulin Glargine (Lantus (Bkc)) 56 units SC QHS [facility] Last Admin: 09/18/19 23:46 Dose: Not Given Documented by: Insulin Human Lispro (Humalog Kwikpen (Bkc)) 0 unit SC ACHS [facility]; Protocol Last Admin: 09/19/19 08:23 Dose: Not Given Documented by: Lisinopril (Zestril) 20 mg PO DAILY [facility] Last Admin: 09/19/19 11:05 Dose: 20 mg Documented by: Metformin HCl (Glucophage) 1,500 mg PO DINNER [facility] Last Admin: 09/18/19 16:57 Dose: 1,500 mg Documented by: Metoprolol Tartrate (Lopressor (Beta Veronique)) 50 mg PO BID [facility] Last Admin: 09/19/19 11:05 Dose: 50 mg Documented by: Sodium Chloride () 10 - 40 ml IV UD PRN PRN Reason: SALINE FLUSH Last Admin: 09/17/19 21:30 Dose: 20 ml Documented by: Discharge Diet: 1800 Calorie Control Diet Discharge Activity: May Not Drive, May Not Shower, Use Walker, Use Crutches Weight Bearing Status: No weight bearing Keep extremity elevated above heart level: Right Leg Additional Activity Instructions:: 1. Keep dressing clean, dry, intact to the right foot. Do not get dressing wet. Do not remove dressing. If get dressing wet, call office for further instruction. 2. Elevate right foot above level of heart as often as possible. 3. Do not walk or stand on right foot. Use crutches or walker for assistance. 4. Patient may perform movement of right ankle joint during periods of rest. Call your doctor if your incision/area has: Sudden Increased Bleeding, Increased Pain/ Swelling Call your doctor if you observe: Fever of 101 or Higher, Shortness of breath, Chest pain, Prolonged hiccoughing, Increased palpitations (irregular heartbeat), Calf discomfort Suture Line Care: Avoid Pulling/Pushing, Avoid Pinching/Bending Cleanse incision/area with: Keep Dressing Clean & Dry Home Medications: Medications to take at Discharge ascorbic acid (vitamin C) 1,000 mg tablet 1,000 mg PO DAILY tab 05/30/17 aspirin 325 mg tablet 325 mg PO DAILY tab 05/30/17 glimepiride 4 mg tablet 4 mg PO BID tab 05/30/17 metformin 500 mg tablet 1,000 mg PO DAILY 05/30/17 nitroglycerin 0.4 mg sublingual tablet 0.4 mg SUBLINGUAL Q5M PRN 05/30/17 biotin 1 mg tablet 1 mg PO DAILY 05/25/19 insulin glargine 100 unit/mL (3 mL) subcutaneous pen 56 unit SC QHS ml 05/25/19 omega-3 fatty acids 1,000 mg capsule 3,000 mg PO DAILY cap 05/25/19 Amlodipine Besylate [Norvasc] 5 mg PO DAILY 09/15/19 Doxazosin Mesylate 1 mg PO QHS 09/15/19 Lisinopril/Hydrochlorothiazide [Lisinopril-Hctz 20-12.5 mg Tab] 1 tab PO BID 09/15/19 Metformin HCl 1,500 mg PO DAILY 09/15/19 Metoprolol Tartrate [Lopressor (beta veronique)] 50 mg PO BID 09/15/19 Multivitamin with Minerals [Multiple Vitamin] 1 tab PO DAILY 09/15/19 Acetaminophen [Tylenol Tablet] 500 mg PO Q4H PRN tablet 09/19/19 Amoxicillin/Potassium Clav [Augmentin 875-125 Tablet] 1 ea PO BID #10 tab 09/19/19 Doxycycline 100 mg PO BID #10 cap 09/19/19 Following Prescrptions Were Given to Patient: Amoxicillin/Potassium Clav [Augmentin 875-125 Tablet] 1 ea PO BID #10 tab Transmission Status: Pending to [id number] Doxycycline 100 mg PO BID #10 cap Transmission Status: Pending to [id number] Primary Care Physician: Krishna Reynolds MD [Primary Care Provider] - Within 2 Weeks Please Follow Up With: Gary Chandler DPM When: During week of 09/20 Please Follow Up With: Son Deluna MD When: 11/25/2019, already scheduled Disposition: Home Minutes spent on discharge:: 35 Patient Condition:: Good Medical Necessity - Tobacco Use Smoking Status: Never smoker Tobacco Use: Chew Meaningful Use Info Meaningful Use Diagnoses (Choose all that apply): None applicable Inpatient E&M: 00309 Disch Hosp
[2019-09-19 11:35] LABS: Bedside Glucose 104 mg/dL (70-110)
== END 2019-09-19 13:09 | disposition home or self-care (01) | DRG 617 ==
LOC: ED 10:14 → MS3 14:16
PROVIDERS: Anesthesiology; Nurse Practitioner Family; Podiatrist Foot & Ankle Surgery; Admitting Provider Internal Medicine; Emergency Provider Emergency Medicine; PCP Internal Medicine
DX: E11.69 Type 2 diabetes mellitus with other specified complication (principal); M86.171 Other acute osteomyelitis, right ankle and foot; Z68.42 Body mass index [BMI] 45.0-49.9, adult; E11.621 Type 2 diabetes mellitus with foot ulcer; E11.42 Type 2 diabetes mellitus with diabetic polyneuropathy; E78.5 Hyperlipidemia, unspecified; K21.9 Gastro-esophageal reflux disease without esophagitis; I25.10 Atherosclerotic heart disease of native coronary artery without angina pectoris; I10 Essential (primary) hypertension; I48.0 Paroxysmal atrial fibrillation; F17.220 Nicotine dependence, chewing tobacco, uncomplicated; L97.514 Non-pressure chronic ulcer of other part of right foot with necrosis of bone; E66.9 Obesity, unspecified; B95.61 Methicillin susceptible Staphylococcus aureus infection as the cause of diseases classified elsewhere
CPT/HCPCS: 36415; 73630; 73718; 80048; 80053; 80202; 82962; 83036; 83605; 85025; 85027; 85610; 85652; 85730; 86140; 87015; 87040; 87070; 87075; 87077; 87102; 87116; 87186; 87205; 87206; 87635; 88304; 88305; 88311; 93005; 93923; 97162; 97166; 99284; G2023; J7040; J7050; A4216; U0003

== ENCOUNTER 2019-10-01 17:05 | Inpatient (IN) | payer MEDICARE, OTHER, SELFPAY ==
[2019-09-17 01:10] VITALS: BMI 46.6
[2019-10-01] VITALS (9 sets, daily range): BP systolic 137–148; BP diastolic 80–105; PULSE 81–104; RESP 16–20; TEMP 36.6–36.9; O2SAT 95–98; BMI 48.1; BMI 47.1
--- NOTE | 2019-10-01 17:27 | ED.DCSUM_ITS ---
History of Present Illness Chief Complaint: Abn Labs Detail of Chief Complaint: BLE edema, dyspnea on exertion Informant: Patient Onset: Today Context: Gradual Onset Timing: Continuous Current Severity: Moderate Maximum Severity: Moderate Worsened by: exertion (breathing) Relieved by: rest (breathing) Associated Symptoms: watery diarrhea, malaise Narrative: Patient was discharged from the hospital about 2 weeks ago after having had 2 toes amputated for osteomyelitis in his right foot. He finished antibiotics about 5 days after being discharged. He had edema in the hospital in both legs, that is gradually gotten worse, he has had dyspnea with exertion for longer than this, and it has gradually worsened although today is not as bad. Denies any chest pain. Labs 2 weeks ago looked pretty good, he had some repeated today at [facility] as an outpatient and they showed acute renal failure with hyperkalemia so he was sent to the ER emergently. He denies any palpitations or chest pain. He has a history of A. fib but is not anticoagulated due to urinary bleeding in the past with it. - Past Medical History (1) Atherosclerotic heart disease of [place] coronary artery without angina pectoris Status: Chronic (2) Essential hypertension Status: Chronic (3) GERD (gastroesophageal reflux disease) Status: Chronic (4) Paroxysmal atrial fibrillation Status: Chronic (5) Pure hypercholesterolemia Status: Chronic (6) Type 2 diabetes mellitus Status: Chronic Past Medical History - Allergies and Home Meds Allergies/Adverse Reactions: Allergies hydrocodone [From Vicodin] Adverse Reaction (Severe, Verified 10/01/19 17:10) Hives ramipril [From Altace] Adverse Reaction (Severe, Verified 10/01/19 17:10) Fast HR valsartan [From Diovan] Adverse Reaction (Severe, Verified 10/01/19 17:10) Fast HR Rpwvwav-Kdv-Gbh Reductase Inhibitor Adverse Reaction (Intermediate, Verified 10/01/19 17:10) Muscle aches Primary Care Physician: Krishna Reynolds MD [Primary Care Provider] - Surgical History: - - cardiac stent placement Lives: Spouse/ Significant Other Smoking Status: Never smoker - Family History Maternal Family History: Family History (Last Reviewed 05/25/19 @ 14:43 by Brea Castañeda) Other Family history of CVA Family history of hyperlipidemia Family history of hypertension Family History: Reports: Heart Disease, Stroke Paternal Family History: Family History (Last Reviewed 05/25/19 @ 14:43 by Brea Castañeda) Other Family history of CVA Family history of hyperlipidemia Family history of hypertension Family History: Reports: Heart Disease Review of Systems General: Reports: Malaise. Denies: Chills, Fever, Sweats Eyes: Denies: Visual changes - bilaterally, Diplopia ENT: Denies: Bilateral ear pain, Rhinorrhea, Sore throat Cardiovascular: Denies: Chest pain, Palpitations, Heart racing Respiratory: Reports: Dyspnea on exertion. Denies: Cough Gastrointestinal: Reports: Diarrhea. Denies: Abdominal pain, Nausea, Vomiting, Melena, Hematochezia Genitourinary: Denies: Dysuria, Hematuria, Frequency Musculoskeletal: Reports: Swelling. Denies: Neck pain, Back pain, Extremity Pain - Patient just had podiatry evaluate his postoperative right foot and said that it looked great, wrapped it up and I was told not to take it off. Skin: Reports: Wounds - Postoperative right foot. Denies: Rash Neurological: Denies: Headache, Weakness Physical Exam Vital Signs/Narrative: Vital Signs Temp Pulse Resp BP Pulse Ox 10/01/19 17:06 98 F 104 H 20 H 148/105 H 96 Inital Vital Signs reviewed: Yes General: Well nourished, Well developed, Obese, No Acute Distress Head: Normocephalic, Atraumatic Eyes: Perrl, EOMI ENT: Moist mucous membranes, No rhinorrhea Neck: Supple, Nontender, No lymphadenopathy, No JVD Cardiovascular: Regular rate, Regular rhythm, No murmurs Respiratory: No distress, CTA bilaterally, Chest nontender Abdomen: Soft, Nontender, Nondistended, Normal bowel sounds Back: Nontender, Normal Inspection Extremities: Nontender, Edema - 2-3+ BLE symmetric, no cellulitis, - - R foot wrapped in dry dressing, postop shoe Skin: Normal color, No rash, No Trauma Neurological: Alert, Oriented x3, Cranial nerves II-XII grossly intact, Normal Strength, Normal Sensation Psychological: Normal affect, Normal Mood Diagnostic/Tx/Re-eval Impressions Chest X-Ray 10/01/19 17:38 IMPRESSION: Normal x-ray examination of the chest. Electronically Signed: Zack Haile MD at 17:55 EDT , Service support , 10/01/19 17:38 Chest 1 View (Portable) [RAD] Stat Laboratory Results 10/01/19 10/01/19 10/01/19 17:31 18:00 18:00 WBC 7.1 RBC 4.01 L Hgb 11.4 L Hct 37.4 L MCV 93.3 MCH 28.4 MCHC 30.5 L RDW Std Deviation 47.2 H RDW Coeff of Rene 13.8 Plt Count 366 MPV 9.0 Immature Gran % (Auto) 1.300 H Neut % (Auto) 74.1 H Lymph % (Auto) 12.5 L Dillon % (Auto) 8.4 Eos % (Auto) 3.1 Baso % (Auto) 0.6 Absolute Neuts (auto) 5.3 Absolute Lymphs (auto) 0.89 Nucleated RBC % 0 Specimen Type pH Bicarbonate Actual POC Total CO2 Base Excess O2 Saturation ABG pCO2 ABG pO2 Sodium 141 Potassium 6.8 H* Chloride 111 H Carbon Dioxide 24.0 Anion Gap 6 BUN 63 H Creatinine 5.62 H Estim Creat Clear Calc 10.79 Est GFR (MDRD) Af Amer 13 L Est GFR (MDRD) Non-Af 11 L BUN/Creatinine Ratio 11.2 Glucose 81 Calcium 8.8 Troponin I < 0.015 B-Natriuretic Peptide POC Glucose 101 10/01/19 10/01/19 18:00 18:13 WBC RBC Hgb Hct MCV MCH MCHC RDW Std Deviation RDW Coeff of Rene Plt Count MPV Immature Gran % (Auto) Neut % (Auto) Lymph % (Auto) Dillon % (Auto) Eos % (Auto) Baso % (Auto) Absolute Neuts (auto) Absolute Lymphs (auto) Nucleated RBC % Specimen Type DEWAYNE pH 7.30 L Bicarbonate Actual 22.3 POC Total CO2 24 Base Excess -4 L O2 Saturation 40 L ABG pCO2 45.5 H ABG pO2 25 L* Sodium Potassium Chloride Carbon Dioxide Anion Gap BUN Creatinine Estim Creat Clear Calc Est GFR (MDRD) Af Amer Est GFR (MDRD) Non-Af BUN/Creatinine Ratio Glucose Calcium Troponin I B-Natriuretic Peptide 168.0 H POC Glucose - Rhythm Strip Rhythm Strip: A-fib Rate: 90 Ectopy: None - EKG Initial EKG Interpretation: No Acute Injury Pattern, Atrial Fibrillation Prior: Unchanged - Medical Decision Making Paperwork faxed from [facility] [place] shows a creatinine of 5.43, BUN 64, potassium 7.2. I repeated these to verify, which took some time, but prior to that after receiving a blood sugar of 101, the hyperkalemia treatment order set was placed, and he was treated. His EKG was obtained prior to that, and it does not show any peaked T waves, LA interval was not able to be measured since he is in A. fib, and his QRS is narrow as it was in August. His last BUN and creatinine were 2 weeks ago and they were normal. Chest x-ray shows no edema or other acute abnormality, he was treated with albuterol as part of the hyperkalemia treatment protocol, and is breathing well with stable vital signs. Patient is stable, and admitted to PCU. ED Disposition - Plan for ED Patient: Disposition: [facility] Diagnosis: Acute renal failure, Hyperkalemia, diminished renal excretion Referrals: Krishna Reynolds MD [Primary Care Provider] -
--- NOTE | 2019-10-01 17:36 | EKG12_ITS ---
Test Reason : AB LABS Blood Pressure : / mmHG Vent. Rate : 092 BPM Atrial Rate : 085 BPM P-R Int : 000 ms QRS Dur : 082 ms QT Int : 314 ms P-R-T Axes : 000 042 037 degrees QTc Int : 388 ms Atrial fibrillation Abnormal ECG Confirmed by KAIDEN KRUEGER, ALVARADO ([id number]), assignment desk editor MENA SCHMITZ ([id number]) on 10/05/2019 8:14:15 AM Referred By: Confirmed By:ALVARADO RICHEY MD
--- NOTE | 2019-10-01 17:38 | RAD_ITS ---
STUDY: X-RAY CHEST REASON FOR EXAM: Male, 69 years old. Renal failure. TECHNIQUE: Single AP portable view of the chest. COMPARISON: 02/06/2017. FINDINGS: The lungs are clear and expanded. There is no demonstrated pleural abnormality. Normal size heart. Normal mediastinum and sukh. Normal visualized pulmonary arteries. Normal visualized aortic arch and descending thoracic aorta. Normal visualized thoracic spine. Normal visualized ribs, clavicles, and shoulders. There is no demonstrated abnormality of the visualized soft tissue structures of the upper abdomen. RAD/Chest 1 View (Portable) IMPRESSION: Normal x-ray examination of the chest. Electronically Signed: Zack Haile MD at 17:55 EDT , Service support ,
[2019-10-01 17:41] LABS: Bedside Glucose 101 mg/dL (70-110)
[2019-10-01] MEDS: Albuterol 2.5 MG/3 ML VIAL.NEB. INHALATION (18:04)
[2019-10-01 18:09] LABS: Absolute Lymphocyte Count 0.89 X10^3/uL (0.83-4.51); Absolute Neutrophil Count 5.3 X10^3/uL (2.0-7.7); Basophil# 0.04 X10^3/uL; Basophil% 0.6 % (0-1); Eosinophil# 0.22 X10^3/uL; Eosinophils% 3.1 % (0-5); Hematocrit 37.4 % (40-54); Hemoglobin 11.4 g/dL (13.0-16.5); Lymphocyte # 0.89 X10^3/ul (4.0); Lymphocyte % 12.5 % (19-41); Mean Corp Hgb Conc 30.5 g/dL (32-36); Mean Corpuscular Hgb 28.4 pg (27.0-32.0); Mean Corpuscular Volume 93.3 fL (80-94); Monocyte% 8.4 % (0-10); NRBC Flagged by Analyzer 0 % (0-5); Neutrophil # 5.29 X10^3/uL (2.7-7.7); Neutrophil % 74.1 % (47-70); Platelet Count 366 K/mm3 (150-450); RBC Distribution Width CV 13.8 % (11.6-14.6); RBC Distribution Width SD 47.2 fl (35.1-43.9); Red Blood Count 4.01 M/mm3 (4.6-6.2); White Blood Count 7.1 K/mm3 (4.4-11.0)
[2019-10-01] MEDS: Dextrose 50%-Water 25 GM/50 ML DISP.SYRIN IV (18:09)
[2019-10-01] MEDS: Insulin Lispro 5 UNIT in Syringe 0 ML 3 UNIT IV (18:12)
[2019-10-01] MEDS: Calcium Gluconate 1 GM/10 ML Vial IV (18:13)
[2019-10-01 18:20] LABS: Base Excess -4 mmol/L (-2 to +2); Bicarbonate 22.3 mmol/L (22-26); PO2 25 mmHG (75-100); SO2 40 % (95-99); Total Carbon Dioxide 24 mmol/L; pCO2 45.5 mmHg (35-45)
[2019-10-01 18:25] LABS: Blood Gas Specimen Type VEN
[2019-10-01 18:49] LABS: Anion Gap 6 (5-15); BUN 63 mg/dL (7-18); BUN/Creat Ratio 11.2 RATIO (10-20); Calcium,Total 8.8 mg/dL (8.5-10.1); Chloride 111 mmol/L (98-107); Creatinine, Serum 5.62 mg/dL (0.70-1.30); EST Glomerular Filtration Rate 11 mL/min (>60); Est Glom Filt Rate - Afr Amer 13 mL/min (>60); Estimated Creatinine Clearance 10.79 ml/min; Glucose 81 mg/dL (74-106); Potassium 6.8 mmol/L (3.5-5.1); Sodium Level 141 mmol/L (136-145)
--- NOTE | 2019-10-01 18:49 | ED.RN ---
NOTIFIED OF K+ LEVEL OF 6.8.
--- NOTE | 2019-10-01 19:58 | HP.PCM_ITS ---
Problem List (1) DANIELA (acute kidney injury) Status: Acute (2) Osteomyelitis of third toe of right foot Status: Resolved (3) Osteomyelitis of second toe of right foot Status: Resolved (4) Hyperkalemia, diminished renal excretion Status: Acute (5) Pure hypercholesterolemia Status: Chronic (6) GERD (gastroesophageal reflux disease) Status: Chronic (7) Type 2 diabetes mellitus Status: Chronic (8) Essential hypertension Status: Chronic (9) Atherosclerotic heart disease of [place] coronary artery without angina pectoris Status: Chronic Qualifiers: [place] vs. 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 Patient underwent partial amputation of his foot. Since being at home, patient has been having diarrhea which has improved recently where he is having more solid stools. He has just been more short of breath and having increasing lower extremity edema. Patient was on antibiotics and completed the course. There was some concern that patient should have been on antibiotics longer according to the patient's the podiatry was concerned about. They conferred with infectious disease and stated that he had completed his course since there was a clean margin from the amputation. No sick contacts that he is aware of. Patient saw his primary care physician who ordered some labs and saw that his creatinine was elevated and patient was sent to the emergency room. Lab work in the emergency room conferred that the acute kidney injury. [] Past Medical History Past Medical History (Chronic Problems): Chronic Problems (Last Reviewed 10/01/19 @ 20:[address] 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 Gucci Moran, DO) Pure hypercholesterolemia (Chronic) E78.00 GERD (gastroesophageal reflux disease) (Chronic) K21.9 Type 2 diabetes mellitus (Chronic) E11.9 Essential hypertension (Chronic) I10 Atherosclerotic heart disease of [place] coronary artery without angina pectoris (Chronic) I25.10 Presence of stent in coronary artery (Chronic) Onset Date: ~06/2007 Z95.5 PTCA with DILIA to CFX 06/30 Paroxysmal atrial fibrillation (Chronic) I48.0 Diabetes mellitus (Inactive) E11.9 Allergies hydrocodone [From Vicodin] Adverse Reaction (Severe, Verified 10/01/19 17:10) Hives ramipril [From Altace] Adverse Reaction (Severe, Verified 10/01/19 17:10) Fast HR valsartan [From Diovan] Adverse Reaction (Severe, Verified 10/01/19 17:10) Fast HR Didmwhx-Ovy-Zzz Reductase Inhibitor Adverse Reaction (Intermediate, Verified 10/01/19 17:10) Muscle aches Home Medications: Ambulatory Orders Medication Instructions Recorded ascorbic acid (vitamin C) 1,000 mg 1,000 mg PO DAILY tab 05/30/17 tablet aspirin 325 mg tablet 325 mg PO DAILY tab 05/30/17 glimepiride 4 mg tablet 4 mg PO BID tab 05/30/17 metformin 500 mg tablet 1,000 mg PO DAILY 05/30/17 nitroglycerin 0.4 mg sublingual 0.4 mg SUBLINGUAL Q5M PRN 05/30/17 tablet biotin 1 mg tablet 1 mg PO DAILY 05/25/19 insulin glargine 100 unit/mL (3 56 unit SC QHS ml 05/25/19 mL) subcutaneous pen omega-3 fatty acids 1,000 mg 3,000 mg PO DAILY cap 05/25/19 capsule Amlodipine Besylate [Norvasc] 5 mg PO DAILY 09/15/19 Doxazosin Mesylate 1 mg PO QHS 09/15/19 Lisinopril/Hydrochlorothiazide 1 tab PO BID 09/15/19 [Lisinopril-Hctz 20-12.5 mg Tab] Metoprolol Tartrate [Lopressor 50 mg PO BID 09/15/19 (beta jones)] Multivitamin with Minerals 1 tab PO DAILY 09/15/19 [Multiple Vitamin] Acetaminophen [Tylenol Tablet] 500 mg PO Q4H PRN tab 09/19/19 Surgical History: Surgical History (Last Reviewed 10/01/19 @ 20:[address] Gucci Moran DO) Presence of coronary angioplasty implant and graft (Chronic) Onset Date: ~06/2007 Z95.5 PTCA with DILIA to CFX 2nd marginal 04 History of tonsillectomy and adenoidectomy Z98.890 History of vasectomy Z98.52 Coronary angioplasty status (Inactive) Z98.61 PTCA with DILIA to CFX 2nd marginal paroxysmal atrial fib 06/30 Surgical History: - - cardiac stent placement Psychiatric History: No pertinent psych hx Lives: Spouse/ Significant Other Smoking Status: Never smoker - *Family History Maternal Family History: Family History (Last Reviewed 10/01/19 @ 20:[address] Gucci Moran DO) Other Family history of CVA Family history of hyperlipidemia Family history of hypertension History Items: Heart Disease, Stroke Paternal Family History: Family History (Last Reviewed 10/01/19 @ 20:[address] Gucci Moran DO) Other Family history of CVA Family history of hyperlipidemia Family history of hypertension History Items: Heart Disease Review of Systems Constitutional: Denies: Anorexia, Chills, Fever Eyes: Denies: Blurred vision, Double vision HEENT: Denies: Head Aches, Sinus Congestion, Sinus Drainage Cardiovascular: Denies: Chest Pain, Palpitations Respiratory: Reports: Shortness of breath upon exertion. Denies: Cough Gastrointestinal: Reports: Diarrhea - Now resolved. Denies: Abdominal Pain, Nausea, Vomiting Genitourinary: Denies: Dysuria Skin: Denies: Rash, Wounds Psychiatric: Denies: Anxiety, Depression Hematologic/ Lymphatic: Reports: Easy Bleeding. Denies: Easy Bruising, Hx of blood clot Comment: All review of systems were negative except as mentioned above in the history of present illness and the other review of systems. VTE Information - Inpt Only VTE Present on Admission: No VTE Mechan Device Prophylaxis: None VTE Pharm Prophylaxis ordered?: Yes Patient Problems: Active and Suspected Problems (Last Reviewed 10/01/19 @ 20:[address] Gucci Moran, DO) Hyperkalemia, diminished renal excretion (Acute) DANIELA (acute kidney injury) (Acute) - Physical Exam Vitals/I&O's: Vital Signs Temp Pulse Resp BP Pulse Ox 36.9 C 97 20 H 148/95 H 95 10/01/19 19:37 10/01/19 19:37 10/01/19 19:37 10/01/19 19:37 10/01/19 19:37 Oxygen Delivery Method Room Air Weight: 131.088 kg Body Mass Index (BMI) 48.1 Finger Stick Blood Glucose 101 Intake and Output for Last 24 Hours 09/29/19 09/30/19 10/01/19 23:59 23:59 23:59 Intake Total 0.05 / 0.05 Balance 0.05 / 0.05 General: Alert, Cooperative, No apparent distress, - - Hard of hearing HEENT: Atraumatic, Normocephalic Oral: Moist Mucosa, No Gingival or Mucosal Lesions/ Ulcerations Neck: No Nodes, Thyroid Normal Size and Texture Lungs: Clear to auscultation, Normal air movement, No rhonchi, No wheeze, No ral es Cardiovascular: Regular rate, Regular Rhythm, Normal S1, Normal S2, No murmurs Abdomen: Bowel Sounds Present, Soft, Non Tender, Non-Distended, No Hepato- splenomegaly Extremities: No Calf Tenderness, Edema Skin: No rashes, No breakdown Musculoskeletal: No Tenderness to Palpation of Joints or Extremities, No Muscle Wasting, - - right foot wrapped--did not remove Neurological: Sensory exam intact to light touch and pain, Coordination normal Psych/Mental Status: Normal Affect, Appropriate Laboratory Results 10/01/19 17:31: POC Glucose 101 10/01/19 18:00: WBC 7.1, RBC 4.01 L, Hgb 11.4 L, Hct 37.4 L, MCV 93.3, MCH 28.4, MCHC 30.5 L, RDW Std Deviation 47.2 H, RDW Coeff of Rene 13.8, Plt Count 366, MPV 9.0, Immature Gran % (Auto) 1.300 H, Neut % (Auto) 74.1 H, Lymph % (Auto) 12.5 L , [place] % (Auto) 8.4, Eos % (Auto) 3.1, Baso % (Auto) 0.6, Absolute Neuts (auto) 5.3, Absolute Lymphs (auto) 0.89, Nucleated RBC % 0 10/01/19 18:00: Sodium 141, Potassium 6.8 H*, Chloride 111 H, Carbon Dioxide 24.0, Anion Gap 6, BUN 63 H, Creatinine 5.62 H, Estim Creat Clear Calc 10.79, Est GFR (MDRD) Af Amer 13 L, Est GFR (MDRD) Non-Af 11 L, BUN/Creatinine Ratio 11.2, Glucose 81, Calcium 8.8, Troponin I < 0.015 10/01/19 18:00: B-Natriuretic Peptide 168.0 H 10/01/19 18:13: Specimen Type DEWAYNE, pH 7.30 L, Bicarbonate Actual 22.3, POC Total CO2 24, Base Excess -4 L, O2 Saturation 40 L, ABG pCO2 45.5 H, ABG pO2 25 L* Chest x-ray personally reviewed and showed no acute process. Assessment/Plan All Active Problems (Last Reviewed 10/01/19 @ 20:[address] Gucci Moran, DO) Osteomyelitis of third toe of right foot (Resolved) Osteomyelitis of second toe of right foot (Resolved) Hyperkalemia, diminished renal excretion (Acute) DANIELA (acute kidney injury) (Acute) 1. Acute kidney injury: If anything, patient appears more volume overloaded at this time. Creatinine 5.62 and baseline was 0.84 from September 16. Hold nephrotoxic agents, including his lisinopril/HCTZ, metformin. We will give the patient a liter of IV fluids. Check urine studies including urinalysis, urine eosinophils, urine creatinine. If worsens, consider consultation to nephrology. Will check a renal ultrasound. 2. Edema: No clinical heart failure other than the lower extremity edema that he has. Patient is also having symptoms of shortness of breath. Patient appears volume overloaded but his weight really has not significantly changed from 2 weeks ago. Hold off on any diuretics at this time given the acute kidney injury. 3. Osteomyelitis of the's right second and third toes: Completed antibiotics. Wound care and nonweightbearing to the right lower extremity. 4. Diabetes mellitus type 2: Continue with insulin glargine and add sliding scale insulin. Hold metformin as well as glimepiride for now. A1c from September 14 was 6. 5. VTE prophylaxis: High risk. Subcu heparin. 6. Advanced care planning: Discussed with the patient. Patient wishes to be DNR Comfort Care arrest. Discussed with the patient's at bedside. Inpatient E&M: [id number] Init Hosp L3
--- NOTE | 2019-10-01 21:12 | US_ITS ---
STUDY: RENAL ULTRASOUND - COMPLETE REASON FOR EXAM: Male, 69 years old. DANIELA TECHNIQUE: Ultrasound evaluation of the kidneys was performed with real-time and static cantu-scale imaging. COMPARISON: None. FINDINGS: Limited by patient''s size and patient condition. RIGHT KIDNEY: Normal location of the right kidney, which is normal in size. The right kidney measures 13.1 x 6.8 x 7.3 cm. There is a normal cortex of the right kidney. The renal cortex measures 2.0 cm. There is no right renal mass or cyst. There are no right renal calculi. There is no right hydronephrosis. DISTAL RIGHT URETER: There is non-visualization of the distal right ureter. There is no demonstrated right ureterovesical junction calculus. There is no demonstrated right ureteral jet. LEFT KIDNEY: Normal location of the left kidney, which is normal in size. The left kidney measures 14.6 x 6.1 x 7.5 cm. There is a normal cortex of the left kidney. The renal cortex measures 2.9 cm. There is no left renal mass or cyst. There are no left renal calculi. There is no left hydronephrosis. DISTAL LEFT URETER: There is non-visualization of the distal left ureter. There is no demonstrated left ureterovesical junction calculus. There is no demonstrated left ureteral jet. BLADDER: The distended urinary bladder has a volume of 105 ml. There is a normal wall thickness of the distended urinary bladder. There is no demonstrated mass within the urinary bladder. There are no demonstrated bladder calculi. US/Kidney and Bladder IMPRESSION: No definite acute or significant abnormality seen. Electronically Signed: Zack Haile MD at 22:47 EDT , Service support ,
[2019-10-01] MEDS: 0.9% Normal Saline 1,000 ML 150 ML IV (22:56)
[2019-10-01] MEDS: Sodium Polystyrene Sulfonate 15 GM/60 ML UDC 30 GM PO (23:13)
[2019-10-01] MEDS: Heparin Injection (Vial) 5,000 UNIT/ML VIAL 5000 UNIT SC (23:16)
[2019-10-01] MEDS: Doxazosin 1 MG Tablet PO (23:16)
[2019-10-01 23:30] LABS: Bedside Glucose 54 mg/dL (70-110)
[2019-10-02] VITALS (11 sets, daily range): BP systolic 112–143; BP diastolic 53–78; PULSE 72–107; RESP 16–20; TEMP 36.6–37.2; O2SAT 94–95
[2019-10-02 00:10] LABS: Bedside Glucose 116 mg/dL (70-110)
[2019-10-02 01:15] LABS: Bacteria 0 SEEN /hpf (None Seen); Mucous, Urine 0 SEEN /hpf (<or=2+); Red Blood Cells-Urine 0 SEEN /hpf (0-5); Squamous Epithelial Cells - UA 0 SEEN /hpf (0-5); White Blood Cells 0 SEEN /hpf (0-5)
[2019-10-02 01:19] LABS: Color, Urine Yellow (Yellow); Glucose, Dipstick Normal (Normal); Ketone-Dipstick Negative (Negative); Leukocyte Esterase-Dipstick Negative /ul (Negative); Nitrite-Dipstick Negative (Negative); Occult Blood-Urine Negative /ul (Negative); Protein-Dipstick Negative (Negative); Urine Bilirubin Dipstick Negative (Negative); Urine Clarity Clear (Clear); Urine Urobilinogen Normal (Normal); Urine pH 6.5 (5.0 - 8.0)
[2019-10-02 01:27] LABS: Urea Nitrogen, Urine 246 mg/dL (NO RANGE EST.)
[2019-10-02 02:25] LABS: Anion Gap 6 (5-15); BUN 59 mg/dL (7-18); BUN/Creat Ratio 10.9 RATIO (10-20); Calcium,Total 8.6 mg/dL (8.5-10.1); Chloride 113 mmol/L (98-107); Creatinine, Serum 5.42 mg/dL (0.70-1.30); EST Glomerular Filtration Rate 11 mL/min (>60); Est Glom Filt Rate - Afr Amer 14 mL/min (>60); Estimated Creatinine Clearance 11.61 ml/min; Glucose 99 mg/dL (74-106); Sodium Level 138 mmol/L (136-145)
[2019-10-02 06:45] LABS: Absolute Lymphocyte Count 0.76 X10^3/uL (0.83-4.51); Absolute Neutrophil Count 4.2 X10^3/uL (2.0-7.7); Basophil# 0.06 X10^3/uL; Eosinophil# 0.18 X10^3/uL; Eosinophils% 3.1 % (0-5); Hematocrit 34.1 % (40-54); Hemoglobin 10.4 g/dL (13.0-16.5); Lymphocyte # 0.76 X10^3/ul (4.0); Lymphocyte % 12.9 % (19-41); Mean Corp Hgb Conc 30.5 g/dL (32-36); Mean Corpuscular Hgb 28.6 pg (27.0-32.0); Mean Corpuscular Volume 93.7 fL (80-94); Mean Platelet Vol. 9.2 fl (6.2-12.0); Monocyte# 0.64 X10^3/uL; Monocyte% 10.9 % (0-10); NRBC Flagged by Analyzer 0 % (0-5); Neutrophil % 71.3 % (47-70); Platelet Count 331 K/mm3 (150-450); RBC Distribution Width CV 14.1 % (11.6-14.6); RBC Distribution Width SD 47.8 fl (35.1-43.9); Red Blood Count 3.64 M/mm3 (4.6-6.2); White Blood Count 5.9 K/mm3 (4.4-11.0)
[2019-10-02 06:46] LABS: Bedside Glucose 68 mg/dL (70-110)
[2019-10-02 07:10] LABS: Anion Gap 9 (5-15); BUN 57 mg/dL (7-18); BUN/Creat Ratio 10.8 RATIO (10-20); Calcium,Total 8.3 mg/dL (8.5-10.1); Chloride 110 mmol/L (98-107); Creatinine, Serum 5.29 mg/dL (0.70-1.30); EST Glomerular Filtration Rate 12 mL/min (>60); Est Glom Filt Rate - Afr Amer 14 mL/min (>60); Estimated Creatinine Clearance 11.89 ml/min; Glucose 70 mg/dL (74-106); Potassium 6.2 mmol/L (3.5-5.1); Sodium Level 140 mmol/L (136-145)
[2019-10-02] MEDS: Ascorbic Acid 500 MG Tablet 1000 MG PO (10:01)
[2019-10-02] MEDS: Aspirin 325 MG Tablet PO (10:01)
[2019-10-02] MEDS: Multivitamins,Ther W-Minerals Tablet 1 TABLET PO (10:01)
[2019-10-02] MEDS: Omega-3 Acid Ethyl Esters 1 GM Capsule 3 GM PO (10:02)
[2019-10-02] MEDS: Heparin Injection (Vial) 5,000 UNIT/ML VIAL 5000 UNIT SC ×2 (10:03→21:31)
[2019-10-02] MEDS: amLODIPine 5 MG Tablet PO (10:03)
[2019-10-02] MEDS: Metoprolol Tartrate 50 MG Tablet PO ×2 (10:03→21:30)
[2019-10-02 12:05] LABS: Bedside Glucose 125 mg/dL (70-110)
--- NOTE | 2019-10-02 13:36 | CON.PCM_ITS ---
Problem List (1) DANIELA (acute kidney injury) Status: Acute Consultation - Renal 10/02/19 PCP/ Referring MD: Requesting physician: [] Primary care physician: Dr. Krishna Reynolds MD Reason for Consultation:: DANIELA - History of Present Illness History of Present Illness: The patient is a 69 year old M recently admitted with toe osteomyelitis. s/p amputation of 2 toes. was discharged home 10 days ago. routine blood work showed DANIELA and hence referred to hospital. asymptomatic. has moderate LE edema which has been present for a while. no breathing issues. - Allergies Allergies: Allergies hydrocodone [From Vicodin] Adverse Reaction (Severe, Verified 10/01/19 17:10) Hives ramipril [From Altace] Adverse Reaction (Severe, Verified 10/01/19 17:10) Fast HR valsartan [From Diovan] Adverse Reaction (Severe, Verified 10/01/19 17:10) Fast HR Rbyjfgl-Ewz-Xxk Reductase Inhibitor Adverse Reaction (Intermediate, Verified 10/01/19 17:10) Muscle aches - Current Medications Current Medications: Current Medications Acetaminophen (Tylenol) 500 mg PO Q4H PRN PRN PRN Reason: Pain Score 1-10/Temp > 100.7 F Ascorbic Acid (Vitamin C) 1,000 mg PO DAILY [facility] Last Admin: 10/02/19 10:01 Dose: 1,000 mg Documented by: Aspirin (Aspirin) 325 mg PO DAILYCM [facility] Last Admin: 10/02/19 10:01 Dose: 325 mg Documented by: Dextrose (D50w Syringe) 0 gm IV X1 PRN; Protocol PRN Reason: Hypoglycemia Doxazosin Mesylate (Cardura) 1 mg PO QHS [facility] Last Admin: 10/01/19 23:16 Dose: 1 mg Documented by: Glucagon () 1 mg IM .X1 PRN PRN Reason: Hypoglycemia Heparin Sodium (Porcine) (Heparin Na) 5,000 unit SC Q12 [facility] Last Admin: 10/02/19 10:03 Dose: 5,000 unit Documented by: Insulin Glargine (Lantus (Bkc)) 56 units SC QHS [facility] Last Admin: 10/01/19 23:24 Dose: Not Given Documented by: Insulin Human Lispro (Humalog Kwikpen (Bkc)) 0 unit SC TIDAC [facility]; Protocol Last Admin: 10/02/19 12:03 Dose: Not Given Documented by: Metoprolol Tartrate (Lopressor (Beta Veronique)) 50 mg PO BID [facility] Last Admin: 10/02/19 10:03 Dose: 50 mg Documented by: Multivitamins/Minerals (Multivitamin With Minerals (Bkc)) [facility] Last Admin: 10/02/19 10:01 Dose: 1 tablet Documented by: Nitroglycerin (Nitrostat) 0.4 mg SUBLINGUAL Q5M PRN PRN Reason: chest pain Vevwe-1-Ptfj Ethyl Esters (Lovaza) 3 gm PO DAILY [facility] Last Admin: 10/02/19 10:02 Dose: 3 gm Documented by: Oxycodone HCl (Oxyir) 5 mg PO Q4H PRN PRN PRN Reason: Pain Score 6-10/10 - Past Medical History Past Medical History (Chronic Problems): Chronic Problems (Last Reviewed 10/01/19 @ 20:[address] Gucci Moran DO) Pure hypercholesterolemia (Chronic) GERD (gastroesophageal reflux disease) (Chronic) Type 2 diabetes mellitus (Chronic) Essential hypertension (Chronic) Atherosclerotic heart disease of [place] coronary artery without angina pectoris (Chronic) Presence of coronary angioplasty implant and graft (Chronic ~06/2007) PTCA with DILIA to CFX 2nd marginal 06/30 Presence of stent in coronary artery (Chronic ~06/2007) PTCA with DILIA to CFX 2nd marginal 06/30 Paroxysmal atrial fibrillation (Chronic) Left atrial enlargement (Chronic) Tachycardia (Chronic) Other longterm (current) drug therapy (Chronic) - Past Surgical History Surgical History: - - cardiac stent placement - Social History Smoking Status: Never smoker - Family History Maternal Family History: Family History (Last Reviewed 10/01/19 @ 20:[address] Gucci Moran DO) Other Family history of CVA Family history of hyperlipidemia Family history of hypertension History Items: Heart Disease, Stroke Paternal Family History: Family History (Last Reviewed 10/01/19 @ 20:[address] Gucci Moran DO) Other Family history of CVA Family history of hyperlipidemia Family history of hypertension History Items: Heart Disease Review of Systems Constitutional: Denies: Chills, Fever, Weight Change HEENT: Denies: Head Aches, Sinus Congestion, Sinus Drainage Cardiovascular: Denies: Chest Pain, Palpitations Respiratory: Denies: Cough, Shortness of breath at rest, Sputum production Gastrointestinal: Denies: Abdominal Pain, Nausea, Vomiting Genitourinary: Denies: Dysuria Musculoskeletal: Denies: Joint Pain, Joint Tenderness Skin: Denies: Rash, Wounds Neurological: Denies: Numbness, Tingling, Focal weakness Psychiatric: Denies: Anxiety, Depression, Homicidal Ideations, Suicidal Ideations Hematologic/ Lymphatic: Denies: Easy Bruising, Easy Bleeding Patient Problems: Active and Suspected Problems (Last Reviewed 10/01/19 @ 20:[address] Gucci Moran, DO) Hyperkalemia, diminished renal excretion (Acute) DANIELA (acute kidney injury) (Acute) Acute renal failure (Acute) - Physical Exam Vitals/I&O's: Vital Signs Temp Pulse Resp BP Pulse Ox 99.0 F 107 H 16 126/78 H 94 10/02/19 08:43 10/02/19 10:03 10/02/19 08:43 10/02/19 08:43 10/02/19 08:43 Oxygen Delivery Method Room Air Weight: 132.5 kg Body Mass Index (BMI) 47.1 Finger Stick Blood Glucose 101 Intake and Output for Last 24 Hours 09/30/19 10/01/19 10/02/19 23:59 23:59 23:59 Intake Total 0.05 / 300.05 1300 / 1300 Output Total 200 / 200 Balance 0.05 / 100.05 1100 / 1100 General: Alert, Oriented x3, Cooperative HEENT: Atraumatic, PERRLA, EOMI, Normocephalic Neck: Supple, No JVD, Negative Carotid Bruits Lungs: Clear to auscultation, Normal air movement Cardiovascular: Regular rate, No murmurs Abdomen: Bowel Sounds Present, Soft, Non Tender Extremities: Capillary Refill Less than 3 Seconds, Edema Skin: No rashes, No breakdown Musculoskeletal: No Tenderness to Palpation of Joints or Extremities Neurological: Cranial nerves II-XII grossly intact Psych/Mental Status: Normal Affect, Appropriate Laboratory Results 10/01/19 17:31: POC Glucose 101 10/01/19 18:00: WBC 7.1, RBC 4.01 L, Hgb 11.4 L, Hct 37.4 L, MCV 93.3, MCH 28.4, MCHC 30.5 L, RDW Std Deviation 47.2 H, RDW Coeff of Rene 13.8, Plt Count 366, MPV 9.0, Immature Gran % (Auto) 1.300 H, Neut % (Auto) 74.1 H, Lymph % (Auto) 12.5 L , [place] % (Auto) 8.4, Eos % (Auto) 3.1, Baso % (Auto) 0.6, Absolute Neuts (auto) 5.3, Absolute Lymphs (auto) 0.89, Nucleated RBC % 0 10/01/19 18:00: Sodium 141, Potassium 6.8 H*, Chloride 111 H, Carbon Dioxide 24. 0, Anion Gap 6, BUN 63 H, Creatinine 5.62 H, Estim Creat Clear Calc 10.79, Est GFR (MDRD) Af Amer 13 L, Est GFR (MDRD) Non-Af 11 L, BUN/Creatinine Ratio 11.2, Glucose 81, Calcium 8.8, Troponin I < 0.015 10/01/19 18:00: B-Natriuretic Peptide 168.0 H 10/01/19 18:13: Specimen Type DEWAYNE, pH 7.30 L, Bicarbonate Actual 22.3, POC Total CO2 24, Base Excess -4 L, O2 Saturation 40 L, ABG pCO2 45.5 H, ABG pO2 25 L* 10/01/19 23:21: POC Glucose 54 L 10/01/19 23:35: Eos Smear Total Cells Pending 10/01/19 23:35: Urine Creatinine 39.00 10/01/19 23:35: Urine Urea Nitrogen 246 10/01/19 23:35: Urine Color Yellow, Urine Clarity Clear, Urine pH 6.5, Ur Specific [place] 1.010, Urine Protein Negative, Urine Glucose (UA) Normal, Urine Ketones Negative, Urine Occult Blood Negative, Urine Nitrite Negative, Urine Bilirubin Negative, Urine Urobilinogen Normal, Ur Leukocyte Esterase Negative, Urine RBC 0 SEEN, Urine WBC 0 SEEN, Ur Squamous Epith Cells 0 SEEN, Urine Bacteria 0 SEEN, Urine Mucus 0 SEEN 10/02/19 00:06: POC Glucose 116 H 10/02/19 01:30: Sodium 138, Potassium 6.0 H*, Chloride 113 H, Carbon Dioxide 19.0 L, Anion Gap 6, BUN 59 H, Creatinine 5.42 H, Estim Creat Clear Calc 11.61, Est GFR (MDRD) Af Amer 14 L, Est GFR (MDRD) Non-Af 11 L, BUN/Creatinine Ratio 10.9, Glucose 99, Calcium 8.6 10/02/19 06:05: POC Glucose 68 L 10/02/19 06:21: WBC 5.9, RBC 3.64 L, Hgb 10.4 L, Hct 34.1 L, MCV 93.7, MCH 28.6, MCHC 30.5 L, RDW Std Deviation 47.8 H, RDW Coeff of Rene 14.1, Plt Count 331, MPV 9.2, Immature Gran % (Auto) 0.800, Neut % (Auto) 71.3 H, Lymph % (Auto) 12.9 L, [place] % (Auto) 10.9 H, Eos % (Auto) 3.1, Baso % (Auto) 1.0, Absolute Neuts (auto) 4.2, Absolute Lymphs (auto) 0.76 L, Nucleated RBC % 0 10/02/19 06:21: Sodium 140, Potassium 6.2 H*, Chloride 110 H, Carbon Dioxide 21.0, Anion Gap 9, BUN 57 H, Creatinine 5.29 H, Estim Creat Clear Calc 11.89, Est GFR (MDRD) Af Amer 14 L, Est GFR (MDRD) Non-Af 12 L, BUN/Creatinine Ratio 10.8, Glucose 70 L, Calcium 8.3 L 10/02/19 12:00: POC Glucose 125 H Current Medications Acetaminophen (Tylenol) 500 mg PO Q4H PRN PRN PRN Reason: Pain Score 1-10/Temp > 100.7 F Ascorbic Acid (Vitamin C) 1,000 mg PO DAILY [facility] Last Admin: 10/02/19 10:01 Dose: 1,000 mg Documented by: Aspirin (Aspirin) 325 mg PO DAILYCM [facility] Last Admin: 10/02/19 10:01 Dose: 325 mg Documented by: Dextrose (D50w Syringe) 0 gm IV X1 PRN; Protocol PRN Reason: Hypoglycemia Doxazosin Mesylate (Cardura) 1 mg PO QHS [facility] Last Admin: 10/01/19 23:16 Dose: 1 mg Documented by: Glucagon () 1 mg IM .X1 PRN PRN Reason: Hypoglycemia Heparin Sodium (Porcine) (Heparin Na) 5,000 unit SC Q12 [facility] Last Admin: 10/02/19 10:03 Dose: 5,000 unit Documented by: Insulin Glargine (Lantus ([facility])) 56 units SC QHS [facility] Last Admin: 10/01/19 23:24 Dose: Not Given Documented by: Insulin Human Lispro (Humalog Kwikpen ([facility])) 0 unit SC TIDAC [facility]; Protocol Last Admin: 10/02/19 12:03 Dose: Not Given Documented by: Metoprolol Tartrate (Lopressor (Beta Veronique)) 50 mg PO BID [facility] Last Admin: 10/02/19 10:03 Dose: 50 mg Documented by: Multivitamins/Minerals (Multivitamin With Minerals ([facility])) [facility] Last Admin: 10/02/19 10:01 Dose: 1 tablet Documented by: Nitroglycerin (Nitrostat) 0.4 mg SUBLINGUAL Q5M PRN PRN Reason: chest pain Tqeyb-2-Zodb Ethyl Esters (Lovaza) 3 gm PO DAILY [facility] Last Admin: 10/02/19 10:02 Dose: 3 gm Documented by: Oxycodone HCl (Oxyir) 5 mg PO Q4H PRN PRN PRN Reason: Pain Score 6-10/10 Assessment/Plan All Active Problems (Last Reviewed 10/01/19 @ 20:[address] Gucci Moran, DO) Osteomyelitis of third toe of right foot (Resolved) Osteomyelitis of second toe of right foot (Resolved) Hyperkalemia, diminished renal excretion (Acute) DANIELA (acute kidney injury) (Acute) Acute renal failure (Acute) DANIELA. normal baseline as of last week of August. now 5.2, 5.6 yesterday. renal US is ok UA is completely benign urine eos pending but there is no serum eosinophilia abx - vanc zosyn while in hospital and augmentin at discharge. he is completed with abx now no new meds no NSAIDs no contrast studies DANIELA is likely ATN given benign findings otherwise clinically has 3+ edema. if cr stable or better tomorrow will add lasix dc amlodipine for now, BP is ok. plan to diurese him from tomorrow hyperkalemia. K is 6.2. repeat kayexalate today all questions answered
[2019-10-02 14:01] LABS: Urine Chloride 101 mmol/L (Not Establ.); Urine Sodium 92 mmol/L (Not Establ.)
--- NOTE | 2019-10-02 14:38 | CASEMGMT ---
[facility] CM Readmission Note Previous Admission: 09/14-09/19/2019 Diagnosis: osteomylitis R foot DC Disposition: Home with po antibiotics Patient's states she called for f/u appointment on dc, but appointment was a few weeks away. Pt did see surgeon, and called ID physician to discuss oral antibiotics. Patient had diarrhea on dc, and low blood sugars. Treated @ home with Immodium and Pepto Bismol with some relief. Metformin and glargine was dc'd. PCP ordered labs, and when results returned PCP had patient come to ER. Current Admission Presentation: DANIELA, BUN/Creat: 63/5.62, K 6.8. PCP had patient come to ER. IV NS @ 150 ml/hr, Kayexalate 30 gm po -Nephrology consult. 3+ edema, if creatinine stable, unger is to add lasix in am. Patient DC goals: Plan is to return home. DC PLAN: anticipate home on discharge. and patient do not feel they will have dc needs and is able to assist. CM will continue to follow and assist with dc planning for any needs that arise. Can ENRIQUEZN RN ACM
[2019-10-02] MEDS: Sodium Polystyrene Sulfonate 15 GM/60 ML UDC PO (14:40)
--- NOTE | 2019-10-02 14:58 | PCM.PN.HOSP ---
Patient Problems: Active and Suspected Problems (Last Reviewed 10/01/19 @ 20:[address] Gucci Moran, DO) Hyperkalemia, diminished renal excretion (Acute) DANIELA (acute kidney injury) (Acute) Acute renal failure (Acute) Subjective: States he feels fine, and if he did have his abnormal labs he would not of come into the hospital. He says that he is also been drinking very well and does not feel dehydrated despite the episodes of diarrhea. Vitals/I&O's: Vital Signs Temp Pulse Resp BP Pulse Ox 99.0 F 89 18 112/70 95 10/02/19 14:38 10/02/19 14:38 10/02/19 14:38 10/02/19 14:38 10/02/19 14:38 Oxygen Delivery Method Room Air Weight: 292 lb 1.8 oz Body Mass Index (BMI) 47.1 Finger Stick Blood Glucose 101 Intake and Output for Last 24 Hours 09/30/19 10/01/19 10/02/19 23:59 23:59 23:59 Intake Total 0.05 / 300.05 1300 / 1300 Output Total 200 / 200 Balance 0.05 / 100.05 1100 / 1100 General: Alert, Oriented x3, Cooperative, No apparent distress HEENT: Atraumatic, PERRLA, EOMI, Normocephalic Oral: Moist Mucosa Neck: Supple, No JVD Lungs: Clear to auscultation, Normal air movement, No rhonchi, No wheeze, No rales, Diminished Cardiovascular: Regular rate, Regular Rhythm, Normal S1, Normal S2, No murmurs Abdomen: Soft, Non Tender, Non-Distended, No Hepato-splenomegaly Extremities: Capillary Refill Less than 3 Seconds, Edema - 2-3+ pitting edema bilateral lower extremities Skin: No rashes, No breakdown, Incision - Dressing in the right lower extremity is wrapped, dressing intact Neurological: Neuro grossly intact, Sensory exam intact to light touch and pain Psych/Mental Status: Normal Affect, Appropriate Laboratory Results 10/01/19 17:31: POC Glucose 101 10/01/19 18:00: WBC 7.1, RBC 4.01 L, Hgb 11.4 L, Hct 37.4 L, MCV 93.3, MCH 28.4, MCHC 30.5 L, RDW Std Deviation 47.2 H, RDW Coeff of Rene 13.8, Plt Count 366, MPV 9.0, Immature Gran % (Auto) 1.300 H, Neut % (Auto) 74.1 H, Lymph % (Auto) 12.5 L, Towner % (Auto) 8.4, Eos % (Auto) 3.1, Baso % (Auto) 0.6, Absolute Neuts (auto) 5.3, Absolute Lymphs (auto) 0.89, Nucleated RBC % 0 10/01/19 18:00: Sodium 141, Potassium 6.8 H*, Chloride 111 H, Carbon Dioxide 24.0, Anion Gap 6, BUN 63 H, Creatinine 5.62 H, Estim Creat Clear Calc 10.79, Est GFR (MDRD) Af Amer 13 L, Est GFR (MDRD) Non-Af 11 L, BUN/Creatinine Ratio 11.2, Glucose 81, Calcium 8.8, Troponin I < 0.015 10/01/19 18:00: B-Natriuretic Peptide 168.0 H 10/01/19 18:13: Specimen Type DEWAYNE, pH 7.30 L, Bicarbonate Actual 22.3, POC Total CO2 24, Base Excess -4 L, O2 Saturation 40 L, ABG pCO2 45.5 H, ABG pO2 25 L* 10/01/19 23:21: POC Glucose 54 L 10/01/19 23:35: Eos Smear Total Cells Pending 10/01/19 23:35: Urine Creatinine 39.00 10/01/19 23:35: Urine Urea Nitrogen 246 10/01/19 23:35: Urine Color Yellow, Urine Clarity Clear, Urine pH 6.5, Ur Specific Bernice 1.010, Urine Protein Negative, Urine Glucose (UA) Normal, Urine Ketones Negative, Urine Occult Blood Negative, Urine Nitrite Negative, Urine Bilirubin Negative, Urine Urobilinogen Normal, Ur Leukocyte Esterase Negative, Urine RBC 0 SEEN, Urine WBC 0 SEEN, Ur Squamous Epith Cells 0 SEEN, Urine Bacteria 0 SEEN, Urine Mucus 0 SEEN 10/02/19 00:06: POC Glucose 116 H 10/02/19 01:30: Sodium 138, Potassium 6.0 H*, Chloride 113 H, Carbon Dioxide 19.0 L, Anion Gap 6, BUN 59 H, Creatinine 5.42 H, Estim Creat Clear Calc 11.61, Est GFR (MDRD) Af Amer 14 L, Est GFR (MDRD) Non-Af 11 L, BUN/Creatinine Ratio 10.9, Glucose 99, Calcium 8.6 10/02/19 06:05: POC Glucose 68 L 10/02/19 06:21: WBC 5.9, RBC 3.64 L, Hgb 10.4 L, Hct 34.1 L, MCV 93.7, MCH 28.6, MCHC 30.5 L, RDW Std Deviation 47.8 H, RDW Coeff of Rene 14.1, Plt Count 331, MPV 9.2, Immature Gran % (Auto) 0.800, Neut % (Auto) 71.3 H, Lymph % (Auto) 12.9 L, Towner % (Auto) 10.9 H, Eos % (Auto) 3.1, Baso % (Auto) 1.0, Absolute Neuts (auto) 4.2, Absolute Lymphs (auto) 0.76 L, Nucleated RBC % 0 10/02/19 06:21: Sodium 140, Potassium 6.2 H*, Chloride 110 H, Carbon Dioxide 21.0, Anion Gap 9, BUN 57 H, Creatinine 5.29 H, Estim Creat Clear Calc 11.89, Est GFR (MDRD) Af Amer 14 L, Est GFR (MDRD) Non-Af 12 L, BUN/Creatinine Ratio 10.8, Glucose 70 L, Calcium 8.3 L 10/02/19 12:00: POC Glucose 125 H 10/02/19 13:33: Ur Random Sodium 92, Urine Potassium 46.0, Urine Chloride 101 Current Medications Acetaminophen (Tylenol) 500 mg PO Q4H PRN PRN PRN Reason: Pain Score 1-10/Temp > 100.7 F Ascorbic Acid (Vitamin C) 1,000 mg PO DAILY [facility] Last Admin: 10/02/19 10:01 Dose: 1,000 mg Documented by: Aspirin (Aspirin) 325 mg PO DAILYCM [facility] Last Admin: 10/02/19 10:01 Dose: 325 mg Documented by: Dextrose (D50w Syringe) 0 gm IV X1 PRN; Protocol PRN Reason: Hypoglycemia Doxazosin Mesylate (Cardura) 1 mg PO QHS [facility] Last Admin: 10/01/19 23:16 Dose: 1 mg Documented by: Glucagon () 1 mg IM .X1 PRN PRN Reason: Hypoglycemia Heparin Sodium (Porcine) (Heparin Na) 5,000 unit SC Q12 [facility] Last Admin: 10/02/19 10:03 Dose: 5,000 unit Documented by: Insulin Glargine (Lantus ([facility])) 56 units SC QHS [facility] Last Admin: 10/01/19 23:24 Dose: Not Given Documented by: Insulin Human Lispro (Humalog Kwikpen ([facility])) 0 unit SC TIDAC [facility]; Protocol Last Admin: 10/02/19 12:03 Dose: Not Given Documented by: Metoprolol Tartrate (Lopressor (Beta Veronique)) 50 mg PO BID [facility] Last Admin: 10/02/19 10:03 Dose: 50 mg Documented by: Multivitamins/Minerals (Multivitamin With Minerals ([facility])) [facility] Last Admin: 10/02/19 10:01 Dose: 1 tablet Documented by: Nitroglycerin (Nitrostat) 0.4 mg SUBLINGUAL Q5M PRN PRN Reason: chest pain Papoz-0-Akrs Ethyl Esters (Lovaza) 3 gm PO DAILY [facility] Last Admin: 10/02/19 10:02 Dose: 3 gm Documented by: Oxycodone HCl (Oxyir) 5 mg PO Q4H PRN PRN PRN Reason: Pain Score 6-10/10 STROKE Vital Signs/Narrative: Vital Signs Temp Pulse Resp BP Pulse Ox 10/02/19 14:38 99.0 F 89 18 112/70 95 Medical Necessity - Tobacco Use Smoking Status: Never smoker Assessment/Plan All Active Problems (Last Reviewed 10/01/19 @ 20:[address] Gucci Moran, DO) Osteomyelitis of third toe of right foot (Resolved) Osteomyelitis of second toe of right foot (Resolved) Hyperkalemia, diminished renal excretion (Acute) DANIELA (acute kidney injury) (Acute) Acute renal failure (Acute) 1. DANIELA likely secondary to ATN with lower extremity edema with hyperkalemia -No systemic eosinophilia, appreciate nephrology's input -We will discontinue Norvasc and likely start Lasix in the morning -Repeat Kayexalate today -We will hold IV fluids -Renal ultrasound was unremarkable -No signs of CHF, despite the elevated creatinine will start diuresis in the morning as directed by nephrology 2. Osteomyelitis of right lower extremity -He had osteomyelitis of his second and third toes on the right, he has completed his course of antibiotics -Wound care is to not remove the dressing as it is specific to Dr. Chandler and he change the dressing once a week 3. DM 2 -We will hold his oral medication and continue with Lantus as well as sliding scale insulin -Accu-Cheks AC at bedtime 4. CAD status post stents/HTN/HLD/paroxysmal A. fib -We will continue with his metoprolol at his home dosing, blood pressure is stable -We will hold his lisinopril and hydrochlorothiazide secondary to his DANIELA -Hold Norvasc given the swelling DVT: Heparin Inpatient E&M: 77703 Subs Hosp L2
[2019-10-02 16:50] LABS: Bedside Glucose 121 mg/dL (70-110)
[2019-10-02] MEDS: Doxazosin 1 MG Tablet PO (21:30)
[2019-10-02 21:45] LABS: Bedside Glucose 155 mg/dL (70-110)
[2019-10-03] VITALS (11 sets, daily range): BP systolic 128–156; BP diastolic 77–91; PULSE 82–99; RESP 18–20; TEMP 36.2–37; O2SAT 95–99
[2019-10-03 06:41] LABS: Bedside Glucose 119 mg/dL (70-110)
[2019-10-03 06:44] LABS: Absolute Lymphocyte Count 0.87 X10^3/uL (0.83-4.51); Basophil# 0.05 X10^3/uL; Basophil% 0.9 % (0-1); Eosinophils% 3.5 % (0-5); Hematocrit 34.6 % (40-54); Hemoglobin 10.8 g/dL (13.0-16.5); Lymphocyte # 0.87 X10^3/ul (4.0); Lymphocyte % 15.1 % (19-41); Mean Corp Hgb Conc 31.2 g/dL (32-36); Mean Corpuscular Volume 92.8 fL (80-94); Mean Platelet Vol. 9.1 fl (6.2-12.0); Monocyte# 0.65 X10^3/uL; Monocyte% 11.2 % (0-10); NRBC Flagged by Analyzer 0 % (0-5); Neutrophil # 3.97 X10^3/uL (2.7-7.7); Neutrophil % 68.6 % (47-70); Platelet Count 320 K/mm3 (150-450); RBC Distribution Width SD 47.1 fl (35.1-43.9); Red Blood Count 3.73 M/mm3 (4.6-6.2); White Blood Count 5.8 K/mm3 (4.4-11.0)
[2019-10-03 08:13] LABS: Anion Gap 12 (5-15); BUN 53 mg/dL (7-18); BUN/Creat Ratio 10.1 RATIO (10-20); Calcium,Total 8.3 mg/dL (8.5-10.1); Chloride 105 mmol/L (98-107); Creatinine, Serum 5.27 mg/dL (0.70-1.30); EST Glomerular Filtration Rate 12 mL/min (>60); Est Glom Filt Rate - Afr Amer 14 mL/min (>60); Estimated Creatinine Clearance 11.94 ml/min; Glucose 124 mg/dL (74-106); Potassium 5.4 mmol/L (3.5-5.1); Sodium Level 139 mmol/L (136-145)
[2019-10-03] MEDS: Multivitamins,Ther W-Minerals Tablet 1 TABLET PO (08:33)
[2019-10-03] MEDS: Aspirin 325 MG Tablet PO (08:33)
--- NOTE | 2019-10-03 08:54 | PCM.PN.REN ---
Patient Problems: Active and Suspected Problems (Last Reviewed 10/01/19 @ 20:[address] Gucci Moran, DO) Hyperkalemia, diminished renal excretion (Acute) DANIELA (acute kidney injury) (Acute) Acute renal failure (Acute) Subjective: Following for DANIELA. Pt denies CP, nausea. Making urine. Has edema of LE. - Physical Exam Vitals/I&O's: Vital Signs Temp Pulse Resp BP Pulse Ox 97.2 F L 86 18 153/91 H 98 10/03/19 08:30 10/03/19 08:30 10/03/19 08:30 10/03/19 08:30 10/03/19 08:30 Oxygen Delivery Method Room Air Weight: 132.5 kg Body Mass Index (BMI) 47.1 Finger Stick Blood Glucose 101 Intake and Output for Last 24 Hours 10/01/19 10/02/19 10/03/19 23:59 23:59 23:59 Intake Total 0.05 / 300.05 1300 / 1300 Output Total 200 / 200 Balance 0.05 / 100.05 1100 / 1100 General: Alert, Oriented x3 HEENT: Atraumatic, EOMI Oral: Moist Mucosa Neck: Supple Lungs: Clear to auscultation - anteriorly Cardiovascular: Normal S1, Normal S2, No murmurs Abdomen: Bowel Sounds Present, Soft, Non Tender Extremities: Edema - 2+ Laboratory Results 10/02/19 12:00: POC Glucose 125 H 10/02/19 13:33: Ur Random Sodium 92, Urine Potassium 46.0, Urine Chloride 101 10/02/19 16:48: POC Glucose 121 H 10/02/19 21:29: POC Glucose 155 H 10/03/19 06:30: WBC 5.8, RBC 3.73 L, Hgb 10.8 L, Hct 34.6 L, MCV 92.8, MCH 29.0, MCHC 31.2 L, RDW Std Deviation 47.1 H, RDW Coeff of Rene 14.0, Plt Count 320, MPV 9.1, Immature Gran % (Auto) 0.700, Neut % (Auto) 68.6, Lymph % (Auto) 15.1 L, Braxton % (Auto) 11.2 H, Eos % (Auto) 3.5, Baso % (Auto) 0.9, Absolute Neuts (auto) 4.0, Absolute Lymphs (auto) 0.87, Nucleated RBC % 0 10/03/19 06:30: Sodium 139, Potassium 5.4 H, Chloride 105, Carbon Dioxide 22.0, Anion Gap 12, BUN 53 H, Creatinine 5.27 H, Estim Creat Clear Calc 11.94, Est GFR (MDRD) Af Amer 14 L, Est GFR (MDRD) Non-Af 12 L, BUN/Creatinine Ratio 10.1, Glucose 124 H, Calcium 8.3 L 10/03/19 06:33: POC Glucose 119 H Current Medications Acetaminophen (Tylenol) 500 mg PO Q4H PRN PRN PRN Reason: Pain Score 1-10/Temp > 100.7 F Ascorbic Acid (Vitamin C) 1,000 mg PO DAILY [facility] Last Admin: 10/02/19 10:01 Dose: 1,000 mg Documented by: Aspirin (Aspirin) 325 mg PO DAILYCM [facility] Last Admin: 10/03/19 08:33 Dose: 325 mg Documented by: Dextrose (D50w Syringe) 0 gm IV X1 PRN; Protocol PRN Reason: Hypoglycemia Doxazosin Mesylate (Cardura) 1 mg PO QHS [facility] Last Admin: 10/02/19 21:30 Dose: 1 mg Documented by: Glucagon () 1 mg IM .X1 PRN PRN Reason: Hypoglycemia Heparin Sodium (Porcine) (Heparin Na) 5,000 unit SC Q12 [facility] Last Admin: 10/02/19 21:31 Dose: 5,000 unit Documented by: Insulin Glargine (Lantus (Bk)) 56 units SC QHS [facility] Last Admin: 10/02/19 21:31 Dose: 56 units Documented by: Insulin Human Lispro (Humalog Kwikpen ([facility])) 0 unit SC TIDAC [facility]; Protocol Last Admin: 10/03/19 06:53 Dose: Not Given Documented by: Metoprolol Tartrate (Lopressor (Beta Veronique)) 50 mg PO BID [facility] Last Admin: 10/02/19 21:30 Dose: 50 mg Documented by: Multivitamins/Minerals (Multivitamin With Minerals (Bk)) 1 tablet PO DAILYCM [facility] Last Admin: 10/03/19 08:33 Dose: 1 tablet Documented by: Nitroglycerin (Nitrostat) 0.4 mg SUBLINGUAL Q5M PRN PRN Reason: chest pain Zaziv-4-Pxjo Ethyl Esters (Lovaza) 3 gm PO DAILY [facility] Last Admin: 10/02/19 10:02 Dose: 3 gm Documented by: Oxycodone HCl (Oxyir) 5 mg PO Q4H PRN PRN PRN Reason: Pain Score 6-10/10 Medical Necessity - Tobacco Use Smoking Status: Never smoker Assessment/Plan All Active Problems (Last Reviewed 10/01/19 @ 20:[address] Gucci Moran, DO) Osteomyelitis of third toe of right foot (Resolved) Osteomyelitis of second toe of right foot (Resolved) Hyperkalemia, diminished renal excretion (Acute) DANIELA (acute kidney injury) (Acute) Acute renal failure (Acute) 1. DANIELA. normal baseline as of last week of August. SCr 5.27 today which is stable. Nonoliguric. Renal US is ok, no obstruction. UA is completely benign. Urine eos pending but there is no serum eosinophilia, so doubt AIN. Suspect DANIELA is due to ATN which is likely due to vancomycin (pt has finished abx). Renal function is stable. No need for dialysis. Still hopeful that renal function will improve further. Recheck renal function in am. 2. Edema. Will give one dose of lasix today. Recheck renal function and electrolytes in am. 3. HTN. Amlodipine held by Dr. Kraus. Pt is still on doxazosin. Diuresis today should help with BP as well. If BP is still high tomorrow, can restart amlodipine. 4. Hyperkalemia. K is 5.4. Lasix should also help. Recheck K in am.
[2019-10-03] MEDS: Omega-3 Acid Ethyl Esters 1 GM Capsule 3 GM PO (10:31)
[2019-10-03] MEDS: Ascorbic Acid 500 MG Tablet 1000 MG PO (10:31)
[2019-10-03] MEDS: Metoprolol Tartrate 50 MG Tablet PO ×2 (10:32→21:49)
[2019-10-03] MEDS: Heparin Injection (Vial) 5,000 UNIT/ML VIAL 5000 UNIT SC ×2 (10:34→21:47)
[2019-10-03] MEDS: Furosemide 40 MG/4 ML Vial IV (10:37)
[2019-10-03] MEDS: 0.9% Saline Lock 10 ML Syringe IV (10:40)
[2019-10-03 11:55] LABS: Bedside Glucose 156 mg/dL (70-110)
[2019-10-03] MEDS: Insulin Lispro 100 UNIT/ML INSULN.PEN SC ×2 (11:56→16:34)
--- NOTE | 2019-10-03 12:51 | PN_ITS ---
Patient Problems: Active and Suspected Problems (Last Reviewed 10/01/19 @ 20:[address] Gucci Moran, DO) Hyperkalemia, diminished renal excretion (Acute) DANIELA (acute kidney injury) (Acute) Acute renal failure (Acute) Subjective: Doing well, no issues overnight. Swelling seems a little bit better. Vitals/I&O's: Vital Signs Temp Pulse Resp BP Pulse Ox 97.2 F L 83 18 153/91 H 98 10/03/19 08:30 10/03/19 11:00 10/03/19 08:30 10/03/19 10:32 10/03/19 08:30 Oxygen Delivery Method Room Air Weight: 292 lb 1.8 oz Body Mass Index (BMI) 47.1 Finger Stick Blood Glucose 101 Intake and Output for Last 24 Hours 10/01/19 10/02/19 10/03/19 23:59 23:59 23:59 Intake Total 0.05 / 300.05 1300 / 1300 Output Total 200 / 200 Balance 0.05 / 100.05 1100 / 1100 General: Alert, Oriented x3, Cooperative, No apparent distress HEENT: Atraumatic, PERRLA, EOMI, Normocephalic Oral: Moist Mucosa Neck: Supple, No JVD Lungs: Clear to auscultation, Normal air movement, No rhonchi, No wheeze, No rales, Diminished Cardiovascular: Regular rate, Regular Rhythm, Normal S1, Normal S2, No murmurs Abdomen: Soft, Non Tender, Non-Distended, No Hepato-splenomegaly Extremities: Capillary Refill Less than 3 Seconds, Edema - 2+ pitting edema bilateral lower extremities Skin: No rashes, No breakdown, Incision - Dressing in the right lower extremity is wrapped, dressing intact Neurological: Neuro grossly intact, Sensory exam intact to light touch and pain Psych/Mental Status: Normal Affect, Appropriate Laboratory Results 10/02/19 13:33: Ur Random Sodium 92, Urine Potassium 46.0, Urine Chloride 101 10/02/19 16:48: POC Glucose 121 H 10/02/19 21:29: POC Glucose 155 H 10/03/19 06:30: WBC 5.8, RBC 3.73 L, Hgb 10.8 L, Hct 34.6 L, MCV 92.8, MCH 29.0, MCHC 31.2 L, RDW Std Deviation 47.1 H, RDW Coeff of Rene 14.0, Plt Count 320, MPV 9.1, Immature Gran % (Auto) 0.700, Neut % (Auto) 68.6, Lymph % (Auto) 15.1 L, Elmore % (Auto) 11.2 H, Eos % (Auto) 3.5, Baso % (Auto) 0.9, Absolute Neuts (auto) 4.0, Absolute Lymphs (auto) 0.87, Nucleated RBC % 0 10/03/19 06:30: Sodium 139, Potassium 5.4 H, Chloride 105, Carbon Dioxide 22.0, Anion Gap 12, BUN 53 H, Creatinine 5.27 H, Estim Creat Clear Calc 11.94, Est GFR (MDRD) Af Amer 14 L, Est GFR (MDRD) Non-Af 12 L, BUN/Creatinine Ratio 10.1, Glucose 124 H, Calcium 8.3 L 10/03/19 06:33: POC Glucose 119 H 10/03/19 11:51: POC Glucose 156 H Current Medications Acetaminophen (Tylenol) 500 mg PO Q4H PRN PRN PRN Reason: Pain Score 1-10/Temp > 100.7 F Ascorbic Acid (Vitamin C) 1,000 mg PO DAILY [facility] Last Admin: 10/03/19 10:31 Dose: 1,000 mg Documented by: Aspirin (Aspirin) 325 mg PO DAILYCM [facility] Last Admin: 10/03/19 08:33 Dose: 325 mg Documented by: Dextrose (D50w Syringe) 0 gm IV X1 PRN; Protocol PRN Reason: Hypoglycemia Doxazosin Mesylate (Cardura) 1 mg PO QHS [facility] Last Admin: 10/02/19 21:30 Dose: 1 mg Documented by: Glucagon () 1 mg IM .X1 PRN PRN Reason: Hypoglycemia Heparin Sodium (Porcine) (Heparin Na) 5,000 unit SC Q12 [facility] Last Admin: 10/03/19 10:34 Dose: 5,000 unit Documented by: Insulin Glargine (Lantus (Bkc)) 56 units SC QHS [facility] Last Admin: 10/02/19 21:31 Dose: 56 units Documented by: Insulin Human Lispro (Humalog Kwikpen (Bk)) 0 unit SC TIDAC [facility]; Protocol Last Admin: 10/03/19 11:56 Dose: 1 u Documented by: Metoprolol Tartrate (Lopressor (Beta Veronique)) 50 mg PO BID [facility] Last Admin: 10/03/19 10:32 Dose: 50 mg Documented by: Multivitamins/Minerals ([facility]ivitamin With Minerals ([facility])) [facility] Last Admin: 10/03/19 08:33 Dose: 1 tablet Documented by: Nitroglycerin (Nitrostat) 0.4 mg SUBLINGUAL Q5M PRN PRN Reason: chest pain Ruqht-4-Ngkc Ethyl Esters (Lovaza) 3 gm PO DAILY [facility] Last Admin: 10/03/19 10:31 Dose: 3 gm Documented by: Oxycodone HCl (Oxyir) 5 mg PO Q4H PRN PRN PRN Reason: Pain Score 6-10/10 Sodium Chloride () 10 - 40 ml IV UD PRN PRN Reason: SALINE FLUSH Last Admin: 10/03/19 10:40 Dose: 10 ml Documented by: STROKE Vital Signs/Narrative: Vital Signs Pulse BP 10/03/19 11:00 83 10/03/19 10:32 86 153/91 H Medical Necessity - Tobacco Use Smoking Status: Never smoker Assessment/Plan All Active Problems (Last Reviewed 10/01/19 @ 20:[address] Gucci Moran, DO) Osteomyelitis of third toe of right foot (Resolved) Osteomyelitis of second toe of right foot (Resolved) Hyperkalemia, diminished renal excretion (Acute) DANIELA (acute kidney injury) (Acute) Acute renal failure (Acute) 1. DANIELA likely secondary to ATN with lower extremity edema with hyperkalemia -No systemic eosinophilia, appreciate nephrology's input -Continue with Lasix, and repeat BMP in the morning -Potassium is improving to 5.4 and kidney function is stable -We will hold IV fluids -Renal ultrasound was unremarkable -No signs of CHF 2. Osteomyelitis of right lower extremity -He had osteomyelitis of his second and third toes on the right, he has completed his course of antibiotics -Wound care is to not remove the dressing as it is specific to Dr. Chandler and he change the dressing once a week 3. DM 2 -We will hold his oral medication and continue with Lantus as well as sliding scale insulin -Accu-Cheks AC at bedtime 4. CAD status post stents/HTN/HLD/paroxysmal A. fib -We will continue with his metoprolol at his home dosing, blood pressure is stable -We will hold his lisinopril and hydrochlorothiazide secondary to his DANIELA -Hold Norvasc given the swelling DVT: Heparin Inpatient E&M: 76912 Subs Hosp L2
[2019-10-03 16:41] LABS: Bedside Glucose 194 mg/dL (70-110)
[2019-10-03] MEDS: Doxazosin 1 MG Tablet PO (21:47)
[2019-10-04] VITALS (13 sets, daily range): BP systolic 112–135; BP diastolic 68–81; PULSE 61–98; RESP 16–20; TEMP 36.4–37.1; O2SAT 95–97
[2019-10-04 00:01] LABS: Bedside Glucose 125 mg/dL (70-110)
[2019-10-04 06:36] LABS: Bedside Glucose 110 mg/dL (70-110)
[2019-10-04 07:13] LABS: Albumin, Serum 2.5 g/dL (3.2-5.0); BUN 54 mg/dL (7-18); BUN/Creat Ratio 10.3 RATIO (10-20); Calcium,Total 8.6 mg/dL (8.5-10.1); Chloride 105 mmol/L (98-107); Creatinine, Serum 5.23 mg/dL (0.70-1.30); EST Glomerular Filtration Rate 12 mL/min (>60); Est Glom Filt Rate - Afr Amer 14 mL/min (>60); Estimated Creatinine Clearance 12.03 ml/min; Glucose 115 mg/dL (74-106); Potassium 5.2 mmol/L (3.5-5.1); Sodium Level 138 mmol/L (136-145)
[2019-10-04] MEDS: Multivitamins,Ther W-Minerals Tablet 1 TABLET PO (07:28)
[2019-10-04] MEDS: Aspirin 325 MG Tablet PO (07:28)
[2019-10-04 08:36] LABS: Eosinophil Ct. Urine No Eosinophils Seen % (.)
--- NOTE | 2019-10-04 10:16 | PCM.PN.HOSP ---
Patient Problems: Active and Suspected Problems (Last Reviewed 10/01/19 @ 20:[address] Gucci Moran, DO) Hyperkalemia, diminished renal excretion (Acute) DANIELA (acute kidney injury) (Acute) Acute renal failure (Acute) Subjective: Feels okay, no change since admission. He does have some lower extremity edema but denies any shortness of breath and thinks it may have gotten a little bit better Vitals/I&O's: Vital Signs Temp Pulse Resp BP Pulse Ox 98.1 F 75 18 135/74 H 97 10/04/19 09:12 10/04/19 09:12 10/04/19 09:12 10/04/19 09:12 10/04/19 09:12 Oxygen Delivery Method Room Air Weight: 292 lb 1.8 oz Body Mass Index (BMI) 47.1 Finger Stick Blood Glucose 101 Intake and Output for Last 24 Hours 10/02/19 10/03/19 10/04/19 23:59 23:59 23:59 Intake Total 1300 / 1300 680 / 1180 700 / 700 Output Total 200 / 200 Balance 1100 / 1100 680 / 1180 700 / 700 General: Alert, Oriented x3, Cooperative, No apparent distress HEENT: Atraumatic, PERRLA, EOMI, Normocephalic Oral: Moist Mucosa Neck: Supple, No JVD Lungs: Clear to auscultation, Normal air movement, No rhonchi, No wheeze, No rales, Diminished Cardiovascular: Regular rate, Regular Rhythm, Normal S1, Normal S2, No murmurs Abdomen: Soft, Non Tender, Non-Distended, No Hepato-splenomegaly Extremities: Capillary Refill Less than 3 Seconds, Edema - 2+ pitting edema bilateral lower extremities Skin: No rashes, No breakdown, Incision - Dressing in the right lower extremity is wrapped, dressing intact Neurological: Neuro grossly intact, Sensory exam intact to light touch and pain Psych/Mental Status: Normal Affect, Appropriate Laboratory Results 10/01/19 23:35: Eos Smear Total Cells No Eosinophils Seen 10/03/19 11:51: POC Glucose 156 H 10/03/19 16:32: POC Glucose 194 H 10/03/19 21:45: POC Glucose 125 H 10/04/19 06:08: Sodium 138, Potassium 5.2 H, Chloride 105, Carbon Dioxide 23.0, BUN 54 H, Creatinine 5.23 H, Estim Creat Clear Calc 12.03, Est GFR (MDRD) Af Amer 14 L, Est GFR (MDRD) Non-Af 12 L, BUN/Creatinine Ratio 10.3, Glucose 115 H, Calcium 8.6, Phosphorus 6.0 H, Albumin 2.5 L 10/04/19 06:11: POC Glucose 110 Current Medications Acetaminophen (Tylenol) 500 mg PO Q4H PRN PRN PRN Reason: Pain Score 1-10/Temp > 100.7 F Ascorbic Acid (Vitamin C) 1,000 mg PO DAILY [facility] Last Admin: 10/03/19 10:31 Dose: 1,000 mg Documented by: [facility]) [facility] Admin: 10/04/19 07:28 Dose: 325 mg Documented by: Dextrose (D50w Syringe) 0 gm IV X1 PRN; Protocol PRN Reason: Hypoglycemia Doxazosin Mesylate (Cardura) 1 mg PO QHS [facility] Last Admin: 10/03/19 21:47 Dose: 1 mg Documented by: Glucagon () 1 mg IM .X1 PRN PRN Reason: Hypoglycemia Heparin Sodium (Porcine) (Heparin Na) 5,000 unit SC Q12 [facility] Last Admin: 10/03/19 21:47 Dose: 5,000 unit Documented by: Insulin Glargine (Lantus ([facility])) 56 units SC QHS [facility] Last Admin: 10/03/19 21:48 Dose: 56 units Documented by: Insulin Human Lispro (Humalog Kwikpen ([facility])) 0 unit SC TIDAC [facility]; Protocol Last Admin: 10/04/19 06:12 Dose: Not Given Documented by: Metoprolol Tartrate (Lopressor (Beta Veronique)) 50 mg PO BID [facility] Last Admin: 10/03/19 21:49 Dose: 50 mg Documented by: Multivitamins/Minerals (Multivitamin With Minerals ([facility])) [facility] Last Admin: 10/04/19 07:28 Dose: 1 tablet Documented by: Nitroglycerin (Nitrostat) 0.4 mg SUBLINGUAL Q5M PRN PRN Reason: chest pain [id number] Ethyl Esters (Lovaza) 3 gm PO DAILY [facility] Last Admin: 10/03/19 10:31 Dose: 3 gm Documented by: Oxycodone HCl (Oxyir) 5 mg PO Q4H PRN PRN PRN Reason: Pain Score 6-10/10 Sevelamer Carbonate (Renvela) 800 mg PO TIDCM DESI Sodium Chloride () 10 - 40 ml IV UD PRN PRN Reason: SALINE FLUSH Last Admin: 10/03/19 10:40 Dose: 10 ml Documented by: STROKE Vital Signs/Narrative: Vital Signs Temp Pulse Resp BP Pulse Ox 10/04/19 09:12 98.1 F 75 18 135/74 H 97 Medical Necessity - Tobacco Use Smoking Status: Never smoker Assessment/Plan All Active Problems (Last Reviewed 10/01/19 @ 20:[address] Gucci Moran, DO) Osteomyelitis of third toe of right foot (Resolved) Osteomyelitis of second toe of right foot (Resolved) Hyperkalemia, diminished renal excretion (Acute) DANIELA (acute kidney injury) (Acute) Acute renal failure (Acute) 1. DANIELA likely secondary to ATN with lower extremity edema with hyperkalemia -No systemic eosinophilia, appreciate nephrology's input -He received a dose of Lasix yesterday, his creatinine did improve a little bit -Potassium is improving to 5.2 -We will reevaluate his creatinine tomorrow, if still elevated may need to proceed with a renal biopsy per nephrology -We will hold IV fluids -Renal ultrasound was unremarkable -No signs of CHF 2. Osteomyelitis of right lower extremity-resolved -He had osteomyelitis of his second and third toes on the right, he has completed his course of antibiotics -Wound care is to not remove the dressing as it is specific to Dr. Chandler and he change the dressing once a week, he will have to be notified to come into the hospital to do the dressing tomorrow 3. DM 2 -We will hold his oral medication and continue with Lantus as well as sliding scale insulin -Accu-Cheks AC at bedtime 4. CAD status post stents/HTN/HLD/paroxysmal A. fib -We will continue with his metoprolol at his home dosing, blood pressure is stable -We will hold his lisinopril and hydrochlorothiazide secondary to his DANIELA -Hold Norvasc given the swelling DVT: Heparin Inpatient E&M: 38945 Subs Hosp L2
[2019-10-04] MEDS: Heparin Injection (Vial) 5,000 UNIT/ML VIAL 5000 UNIT SC ×2 (10:19→21:40)
[2019-10-04] MEDS: SEVELAMER CARBONATE 800 MG TABLET PO ×3 (10:19→16:15)
[2019-10-04] MEDS: Omega-3 Acid Ethyl Esters 1 GM Capsule 3 GM PO (10:19)
[2019-10-04] MEDS: Metoprolol Tartrate 50 MG Tablet PO ×2 (10:19→21:40)
[2019-10-04] MEDS: Ascorbic Acid 500 MG Tablet 1000 MG PO (10:19)
[2019-10-04] MEDS: Insulin Lispro 100 UNIT/ML INSULN.PEN SC (12:15)
[2019-10-04 13:15] LABS: Bedside Glucose 151 mg/dL (70-110)
[2019-10-04 16:21] LABS: Bedside Glucose 138 mg/dL (70-110)
[2019-10-04] MEDS: Doxazosin 1 MG Tablet PO (21:40)
[2019-10-04 22:05] LABS: Bedside Glucose 150 mg/dL (70-110)
[2019-10-05 03:00] VITALS: PULSE 83
[2019-10-05 03:30] VITALS: BP 103/66; PULSE 79; RESP 18; TEMP 36.9; O2SAT 94
[2019-10-05 06:50] LABS: Bedside Glucose 96 mg/dL (70-110)
[2019-10-05 07:00] VITALS: PULSE 78
[2019-10-05 07:03] LABS: Anion Gap 9 (5-15); BUN 51 mg/dL (7-18); Calcium,Total 8.6 mg/dL (8.5-10.1); Chloride 104 mmol/L (98-107); Creatinine, Serum 5.12 mg/dL (0.70-1.30); EST Glomerular Filtration Rate 12 mL/min (>60); Est Glom Filt Rate - Afr Amer 15 mL/min (>60); Estimated Creatinine Clearance 12.29 ml/min; Glucose 107 mg/dL (74-106); Potassium 4.9 mmol/L (3.5-5.1); Sodium Level 137 mmol/L (136-145)
--- NOTE | 2019-10-05 07:13 | PN.RENAL_ITS ---
Patient Problems: Active and Suspected Problems (Last Reviewed 10/01/19 @ 20:[address] Gucci Moran, DO) Hyperkalemia, diminished renal excretion (Acute) DANIELA (acute kidney injury) (Acute) Acute renal failure (Acute) Subjective: Following for DANIELA. Pt - Physical Exam Vitals/I&O's: Vital Signs Temp Pulse Resp BP Pulse Ox 98.5 F 79 18 103/66 94 10/05/19 03:30 10/05/19 03:30 10/05/19 03:30 10/05/19 03:30 10/05/19 03:30 Oxygen Delivery Method Room Air Weight: 132.5 kg Body Mass Index (BMI) 47.1 Finger Stick Blood Glucose 101 Intake and Output for Last 24 Hours 10/03/19 10/04/19 10/05/19 23:59 23:59 23:59 Intake Total 680 / 1180 1620 / 1620 450 / 450 Balance 680 / 1180 1620 / 1620 450 / 450 General: Alert, Oriented x3 HEENT: Atraumatic Oral: Moist Mucosa Neck: Supple Lungs: Clear to auscultation Cardiovascular: Normal S1, Normal S2, No murmurs Abdomen: Soft, Non Tender, Obese Extremities: Edema - 1+ Laboratory Results 10/01/19 23:35: Eos Smear Total Cells No Eosinophils Seen 10/04/19 06:08: Sodium 138, Potassium 5.2 H, Chloride 105, Carbon Dioxide 23.0, BUN 54 H, Creatinine 5.23 H, Estim Creat Clear Calc 12.03, Est GFR (MDRD) Af Amer 14 L, Est GFR (MDRD) Non-Af 12 L, BUN/Creatinine Ratio 10.3, Glucose 115 H, Calcium 8.6, Phosphorus 6.0 H, Albumin 2.5 L 10/04/19 12:13: POC Glucose 151 H 10/04/19 16:14: POC Glucose 138 H 10/04/19 21:36: POC Glucose 150 H 10/05/19 06:20: Sodium 137, Potassium 4.9, Chloride 104, Carbon Dioxide 24.0, Anion Gap 9, BUN 51 H, Creatinine 5.12 H, Estim Creat Clear Calc 12.29, Est GFR (MDRD) Af Amer 15 L, Est GFR (MDRD) Non-Af 12 L, BUN/Creatinine Ratio 10.0, Glucose 107 H, Calcium 8.6 10/05/19 06:43: POC Glucose 96 Current Medications Acetaminophen (Tylenol) 500 mg PO Q4H PRN PRN PRN Reason: Pain Score 1-10/Temp > 100.7 F Ascorbic Acid (Vitamin C) 1,000 mg PO DAILY [facility] Last Admin: 10/04/19 10:19 Dose: 1,000 mg Documented by: [facility] Admin: 10/04/19 07:28 Dose: 325 mg Documented by: Dextrose (D50w Syringe) 0 gm IV X1 PRN; Protocol PRN Reason: Hypoglycemia Doxazosin Mesylate (Cardura) 1 mg PO QHS [facility] Last Admin: 10/04/19 21:40 Dose: 1 mg Documented by: Glucagon () 1 mg IM .X1 PRN PRN Reason: Hypoglycemia Heparin Sodium (Porcine) (Heparin Na) 5,000 unit SC Q12 [facility] Last Admin: 10/04/19 21:40 Dose: 5,000 unit Documented by: Insulin Glargine (Lantus (Bk)) 56 units SC QHS [facility] Last Admin: 10/04/19 21:40 Dose: 56 units Documented by: Insulin Human Lispro (Humalog Kwikpen ([facility])) 0 unit SC TIDAC [facility]; Protocol Last Admin: 10/05/19 06:46 Dose: Not Given Documented by: Metoprolol Tartrate (Lopressor (Beta Veronique)) 50 mg PO BID [facility] Last Admin: 10/04/19 21:40 Dose: 50 mg Documented by: Multivitamins/Minerals (Multivitamin With Minerals ([facility])) [facility] Last Admin: 10/04/19 07:28 Dose: 1 tablet Documented by: Nitroglycerin (Nitrostat) 0.4 mg SUBLINGUAL Q5M PRN PRN Reason: chest pain Yyevl-2-Hvec Ethyl Esters (Lovaza) 3 gm PO DAILY [facility] Last Admin: 10/04/19 10:19 Dose: 3 gm Documented by: Oxycodone HCl (Oxyir) 5 mg PO Q4H PRN PRN PRN Reason: Pain Score 6-10/10 Sevelamer Carbonate (Renvela) 800 mg PO TIDCM [facility] Last Admin: 10/04/19 16:15 Dose: 800 mg Documented by: Sodium Chloride () 10 - 40 ml IV UD PRN PRN Reason: SALINE FLUSH Last Admin: 10/03/19 10:40 Dose: 10 ml Documented by: Medical Necessity - Tobacco Use Smoking Status: Never smoker Assessment/Plan All Active Problems (Last Reviewed 10/01/19 @ 20:[address] Gucci Moran, DO) Osteomyelitis of third toe of right foot (Resolved) Osteomyelitis of second toe of right foot (Resolved) Hyperkalemia, diminished renal excretion (Acute) DANIELA (acute kidney injury) (Acute) Acute renal failure (Acute) 1. DANIELA. normal baseline as of last week of August. SCr 5.12 today which is stable. Nonoliguric. Renal US is ok, no obstruction. UA is completely benign. Urine eos pending but there is no serum eosinophilia, so doubt AIN. Still suspect DANIELA is due to ATN which is likely due to vancomycin (pt has finished abx). Renal function is slightly better and hyperkalemia has resolved. No need for dialysis. Pt really wants to go home. Since there is no plan to change treatment at this time, I am OK with discharge. Recheck renal function as outpatient in 2 days. I will arrange for outpatient follow up for him within the week (my office will contact him). If renal function fails to improve further over the next week, I will arrange for a kidney biopsy. 2. Edema. Will give one dose of Lasix on 10/03/19. Edema is better. Pt tells me he is urinating. So, hold further diuresis. 3. HTN. Amlodipine held by Dr. Kraus, most likely due to LE edema. Pt is still on doxazosin. Diuresis on 10/03/19 helped with BP as well. BP is acceptable today. Will continue these medications. 4. Hyperkalemia. Resolved. K is 4.9. Recheck K as outpt.
[2019-10-05 08:01] VITALS: BP 150/86; PULSE 85; RESP 16; TEMP 36.7; O2SAT 96
[2019-10-05 08:05] VITALS: PULSE 85
[2019-10-05] MEDS: Ascorbic Acid 500 MG Tablet 1000 MG PO (08:05)
[2019-10-05] MEDS: Aspirin 325 MG Tablet PO (08:05)
[2019-10-05] MEDS: Metoprolol Tartrate 50 MG Tablet PO (08:05)
[2019-10-05] MEDS: Omega-3 Acid Ethyl Esters 1 GM Capsule 3 GM PO (08:05)
[2019-10-05] MEDS: SEVELAMER CARBONATE 800 MG TABLET PO (08:05)
[2019-10-05] MEDS: Multivitamins,Ther W-Minerals Tablet 1 TABLET PO (08:05)
[2019-10-05] MEDS: Heparin Injection (Vial) 5,000 UNIT/ML VIAL 5000 UNIT SC (08:06)
--- NOTE | 2019-10-05 11:10 | DCINST_ITS ---
- Discharge Diagnoses Current Active Problems: Current Active and Chronic Problems (Last Reviewed 10/01/19 @ 20:[address] Gucci Moran, DO) Hyperkalemia, diminished renal excretion (Acute) DANIELA (acute kidney injury) (Acute) Acute renal failure (Acute) You will use the following diet at home:: Calorie/Carbohydrate Controlled (specify 1200, 1400, etc) - 1800 corrine Your food should be the consistency of: Regular Your liquids should be the consistency of: Regular/Thin Discharge Activity: Return to Normal Activity Allergies/Adverse Reactions: Allergies hydrocodone [From Vicodin] Adverse Reaction (Severe, Verified 10/01/19 17:10) Hives ramipril [From Altace] Adverse Reaction (Severe, Verified 10/01/19 17:10) Fast HR valsartan [From Diovan] Adverse Reaction (Severe, Verified 10/01/19 17:10) Fast HR Mvrygqx-Eww-Vsu Reductase Inhibitor Adverse Reaction (Intermediate, Verified 10/01/19 17:10) Muscle aches Medications to take at Discharge ascorbic acid (vitamin C) 1,000 mg tablet 1,000 mg PO DAILY tab 05/30/17 aspirin 325 mg tablet 325 mg PO DAILY tab 05/30/17 nitroglycerin 0.4 mg sublingual tablet 0.4 mg SUBLINGUAL Q5M PRN 05/30/17 biotin 1 mg tablet 1 mg PO DAILY 05/25/19 insulin glargine 100 unit/mL (3 mL) subcutaneous pen 56 unit SC QHS ml 05/25/19 omega-3 fatty acids 1,000 mg capsule 3,000 mg PO DAILY cap 05/25/19 Doxazosin Mesylate 1 mg PO QHS 09/15/19 Metoprolol Tartrate [Lopressor (beta jones)] 50 mg PO BID 09/15/19 Multivitamin with Minerals [Multiple Vitamin] 1 tab PO DAILY 09/15/19 Acetaminophen [Tylenol Tablet] 500 mg PO Q4H PRN tab 09/19/19 Amlodipine Besylate [Norvasc] 5 mg PO DAILY #1 tab 10/05/19 The following prescriptions were given: Amlodipine Besylate [Norvasc] 5 mg PO DAILY #1 tab Primary Care Physician: Krishna Reynolds MD [Primary Care Provider] - Please follow up with your Primary Care Physician in: this week Test Results: Test results from this visit will be discussed in further detail at your follow- up appointment, if applicable. Please Follow Up With: Wood Kraus MD When: 7-10 days
--- NOTE | 2019-10-05 12:45 | PHA.DC.MR ---
Pharmacy Service has performed discharge medication reconciliation for this patient. The patient's discharge medication list was reviewed for discrepancies and discrepancies were resolved. Home Medications ascorbic acid (vitamin C) 1,000 mg tablet 1,000 mg PO DAILY tab 05/30/17 aspirin 325 mg tablet 325 mg PO DAILY tab 05/30/17 nitroglycerin 0.4 mg sublingual tablet 0.4 mg SUBLINGUAL Q5M PRN 05/30/17 biotin 1 mg tablet 1 mg PO DAILY 05/25/19 insulin glargine 100 unit/mL (3 mL) subcutaneous pen 56 unit SC QHS ml 05/25/19 omega-3 fatty acids 1,000 mg capsule 3,000 mg PO DAILY cap 05/25/19 Doxazosin Mesylate 1 mg PO QHS 09/15/19 Metoprolol Tartrate [Lopressor (beta jones)] 50 mg PO BID 09/15/19 Multivitamin with Minerals [Multiple Vitamin] 1 tab PO DAILY 09/15/19 Acetaminophen [Tylenol Tablet] 500 mg PO Q4H PRN tab 09/19/19 Amlodipine Besylate [Norvasc] 5 mg PO DAILY #1 tab 10/05/19
--- NOTE | 2019-10-05 17:56 | DS.PCM_ITS ---
Discharge Date and Diagnosis Date of Admission: 10/01/19 Date of Discharge: 10/05/19 - Primary Discharge Diagnosis Acute Problems: #1 acute kidney injury secondary to acute tubular necrosis #2 acute tubular necrosis #3 chronic atrial fibrillation #4 type 2 diabetes #5 hyperkalemia secondary to acute kidney injury #6 class III obesity - Secondary Discharge Diagnosis Chronic Problems: Chronic Problems (Last Reviewed 10/01/19 @ 20:[address] 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) Presence of coronary angioplasty implant and graft (Chronic ~06/2007) PTCA with DILIA to CFX 2nd marginal 06/30 Presence of stent in coronary artery (Chronic ~06/2007) PTCA with DILIA to CFX 2nd marginal 06/30 Paroxysmal atrial fibrillation (Chronic) Left atrial enlargement (Chronic) Tachycardia (Chronic) Other nursing home (current) drug therapy (Chronic) Hospital Course and Treatment Procedures: None Summary of Care Provided: The patient is a 69 year old M who was seen in the emergency room at [facility] after being instructed to go to the ER due to abnormal lab work obtained as an outpatient. Patient had finished a course of antibiotics for osteomyelitis in his right foot, labs were repeated which showed an elevated creatinine, BUN, and potassium. Labs obtained in the emergency room showed a normal white blood cell count, potassium was elevated at 6.8, BUN was elevated at 63, creatinine was elevated at 5.62. Patient was admitted to PCU, he was seen in consultation by nephrology who felt that the patient had acute kidney injury secondary to ATN. Patient's labs were monitored, his creatinine improved slightly during his hospitalization. On 10/05/2019, patient was seen and examined: On examination he appeared in good health and spirits. Vital signs as documented. Skin warm and dry and without overt rashes. Neck without JVD, neck was supple, trachea midline, thyroid was normal. Lungs clear bilaterally, normal air movement was noted. Heart exam notable for irregular rhythm, normal sounds and absence of murmurs, rubs or gallops. Abdomen unremarkable and without evidence of organomegaly, masses, or abdominal aortic enlargement. Bowel sounds are present, abdomen is not distended. Extremities-generalized edema was noted over both lower legs, no cyanosis was noted, no clubbing was noted. Neuro: Cranial nerves II through XII are grossly intact, no focal motor deficits were noted, sensation to light touch and pinprick intact, motor exam 5/5 throughout. Psych: Patient is alert and oriented x3, he does not appear anxious or depressed, he does not appear agitated. I talked at length with the patient and the patient's on 10/05/2019, I explained that several of his medications would have to be discontinued for now, he was instructed to follow-up with nephrology as an outpatient and his family physician this week for repeat labs and office visit. Patient appeared stable for discharge on 10/05/2019. - Physical Exam Vitals/I&O's: Vital Signs Temp Pulse Resp BP Pulse Ox 98.0 F 85 16 150/86 H 96 10/05/19 08:01 10/05/19 08:05 10/05/19 08:01 10/05/19 08:01 10/05/19 08:01 Oxygen Delivery Method Room Air Weight: 132.5 kg Body Mass Index (BMI) 47.1 Finger Stick Blood Glucose 101 Intake and Output for Last 24 Hours 10/03/19 10/04/19 10/05/19 23:59 23:59 23:59 Intake Total 680 / 1180 1620 / 1620 450 / 450 Balance 680 / 1180 1620 / 1620 450 / 450 Laboratory Results 10/04/19 21:36: POC Glucose 150 H 10/05/19 06:20: Sodium 137, Potassium 4.9, Chloride 104, Carbon Dioxide 24.0, Anion Gap 9, BUN 51 H, Creatinine 5.12 H, Estim Creat Clear Calc 12.29, Est GFR (MDRD) Af Amer 15 L, Est GFR (MDRD) Non-Af 12 L, BUN/Creatinine Ratio 10.0, Glucose 107 H, Calcium 8.6 10/05/19 06:43: POC Glucose 96 Discharge Activity: Return to Normal Activity Home Medications: Medications to take at Discharge ascorbic acid (vitamin C) 1,000 mg tablet 1,000 mg PO DAILY tab 05/30/17 aspirin 325 mg tablet 325 mg PO DAILY tab 05/30/17 nitroglycerin 0.4 mg sublingual tablet 0.4 mg SUBLINGUAL Q5M PRN 05/30/17 biotin 1 mg tablet 1 mg PO DAILY 05/25/19 insulin glargine 100 unit/mL (3 mL) subcutaneous pen 56 unit SC QHS ml 05/25/19 omega-3 fatty acids 1,000 mg capsule 3,000 mg PO DAILY cap 05/25/19 Doxazosin Mesylate 1 mg PO QHS 09/15/19 Metoprolol Tartrate [Lopressor (beta jones)] 50 mg PO BID 09/15/19 Multivitamin with Minerals [Multiple Vitamin] 1 tab PO DAILY 09/15/19 Acetaminophen [Tylenol Tablet] 500 mg PO Q4H PRN tab 09/19/19 Amlodipine Besylate [Norvasc] 5 mg PO DAILY #1 tab 10/05/19 Following Prescrptions Were Given to Patient: Amlodipine Besylate [Norvasc] 5 mg PO DAILY #1 tab Primary Care Physician: Krishna Reynolds MD [Primary Care Provider] - Please follow up with your Primary Care Physician in: this week Please Follow Up With: Wood Kraus MD When: 7-10 days Disposition: Home Minutes spent on discharge:: 32 Patient Condition:: Stable Medical Necessity - Tobacco Use Smoking Status: Never smoker Meaningful Use Info Meaningful Use Diagnoses (Choose all that apply): None applicable Inpatient E&M: 21340 Disch Hosp
== END 2019-10-05 11:56 | disposition home or self-care (01) | DRG 640 ==
LOC: ED 18:45 → PCU 20:45
PROVIDERS: Family Medicine; Internal Medicine Nephrology; Emergency Provider Emergency Medicine; PCP Internal Medicine; Visit Provider Internal Medicine
DX: E87.5 Hyperkalemia (principal); N17.0 Acute kidney failure with tubular necrosis; Z68.42 Body mass index [BMI] 45.0-49.9, adult; M86.9 Osteomyelitis, unspecified; E66.01 Morbid (severe) obesity due to excess calories; I48.0 Paroxysmal atrial fibrillation; K21.9 Gastro-esophageal reflux disease without esophagitis; I10 Essential (primary) hypertension; I25.10 Atherosclerotic heart disease of native coronary artery without angina pectoris; Z95.5 Presence of coronary angioplasty implant and graft; Z79.4 Long term (current) use of insulin; Z79.899 Other long term (current) drug therapy; Z79.82 Long term (current) use of aspirin; R60.0 Localized edema; Z66 Do not resuscitate; E11.69 Type 2 diabetes mellitus with other specified complication; N14.1 Nephropathy induced by other drugs, medicaments and biological substances; T36.8X5A Adverse effect of other systemic antibiotics, initial encounter
CPT/HCPCS: 36415; 71045; 76770; 80048; 80069; 81001; 82436; 82570; 82803; 82962; 83880; 84133; 84300; 84484; 84540; 85025; 87205; 93005; 94640; 97116; 97162; 97166; 97535; 97802; 99285; J7030; A4216; J0610; J1940

== ENCOUNTER → 2019-12-10 06:07 | Outpatient (CLI) | payer MEDICARE, OTHER, SELFPAY ==
[2019-11-25 11:11] VITALS: BMI 44.2
--- NOTE | 2019-12-10 06:09 | ECHOCS_ITS ---
Version 2 Reason For Study: CAD Procedure This was a 2D Doppler, Color Flow transthoracic echocardiogram. The study was technically difficult. Contrast injection was performed. Exam performed in department. Left Ventricle Based upon the 2D echocardiographic and contrast enhanced images obtained there appears to be grossly normal left ventricular size, wall motion, and systolic function. The estimated ejection fraction is 65 %. Unable to assess diastolic dysfunction. Right Ventricle Based upon the 2D echocardiographic and contrast enhanced images obtained there appears to be grossly normal right ventricular size and systolic function. Atria The left atrium is severely enlarged. Normal right atrium. No doppler evidence for ASD. Mitral Valve There is mild mitral annular calcification. Mitral valve not well visualized. Trivial mitral valve insufficiency. Tricuspid Valve The tricuspid valve is not well visualized. Trivial tricuspid valve insufficiency. Right ventricular systolic pressure estimated to be 40 mmHg. Aortic Valve Trisinus/trileaflet aortic valve. Mild diffuse aortic valve calcification. Mild aortic stenosis. Pulmonic Valve The pulmonic valve is not well visualized. Great Vessels The aortic root is not well visualized. Pericardium/Pleural No pericardial effusion. Medication Diluted definity 4.0ml given slow IV push to enhance endocardial definition. MMode/2D Measurements & Calculations LVIDd: 6.1 cm IVSd: 1.3 cm LVOT diam: 2.0 cm LVIDs: 4.9 cm LVPWd: 1.4 cm RVDd: 4.7 cm FS: 19.2 % LVOT area: 3.1 cm2 LAV(MOD-bp): 120.1 ml LVAd ap4: 29.9 cm2 SV(MOD-sp4): 47.4 ml LAV(MOD-bp) Indexed: 50.1 ml/m2 EDV(MOD-sp4): 88.9 ml LAV(MOD-sp2): 118.3 ml EDV(sp4-el): 92.3 ml LAV(MOD-sp4): 128.2 ml LVAs ap4: 18.7 cm2 ESV(MOD-sp4): 41.5 ml ESV(sp4-el): 41.4 ml EF(MOD-sp4): 53.3 % EF(sp4-el): 55.1 % SV(sp4-el): 50.9 ml LA A4 area: 34.3 cm2 LA dimension(2D): 5.7 cm RA A4 area: 21.5 cm2 Time Measurements MV dec time: 0.22 sec Doppler Measurements & Calculations MV E max dea: 98.7 cm/sec Ao V2 max: 223.0 cm/sec LV V1 max: 97.3 cm/sec Ao max P.0 mmHg LV V1 max P.8 mmHg Ao V2 mean: 175.5 cm/sec LV V1 mean P.2 mmHg Ao mean P.3 mmHg LV V1 mean: 71.8 cm/sec Ao V2 VTI: 43.1 cm LV V1 VTI: 18.4 cm JONI(I,D): 1.3 cm2 JONI(V,D): 1.4 cm2 SV(LVOT): 56.9 ml TR max dea: 302.5 cm/sec TR max P.8 mmHg Interpretation Summary The study was technically difficult. Contrast injection was performed. Based upon the 2D echocardiographic and contrast enhanced images obtained there appears to be grossly normal left ventricular size, wall motion, and systolic function. The estimated ejection fraction is 65 %. The left atrium is severely enlarged. There is mild mitral annular calcification. Trivial mitral valve insufficiency. Trivial tricuspid valve insufficiency. Mild aortic stenosis. Right ventricular systolic pressure estimated to be 40 mmHg. Unable to assess diastolic dysfunction. Ordering Physician: Son Deluna Referring Physician: SONIA JIMÉNEZ Performed By: Karla Mendoza, RDCS, RVT
--- NOTE | 2019-12-10 08:30 | STRESSREP ---
Stress Test Report Date: 12-10-2019 Procedure: Pharmacologic stress nuclear imaging study Indications: Shortness of breath/dyspnea on exertion; CAD; PCI Consent: Per the patient Procedure: The patient underwent pharmacologic (Regadenoson) evaluation with a peak heart rate of 127 beats per minute (84%predicted maximal heart rate) and a peak blood pressure of 154/84 mmHg. The baseline ECG demonstrated atrial fibrillation; nonspecific ST segment abnormality. The peak pharmacologic ECG demonstrated no obvious ECG changes. There was a rare PVC during recovery. There was no complaint of chest discomfort during pharmacologic infusion or recovery. The examination was discontinued secondary to completion of protocol. Impression: 1. Pharmacologic (Regadenoson) evaluation 2. Peak pharmacologic ECG with continued nonspecific ST segment changes. 3. There was a rare PVC during recovery. 4. Nuclear images pending Myocardial perfusion imaging study: Technique: The patient was injected with 14.7 millicuries of technetium 99m Cardiolite and subsequently rest SPECT Cardiolite nuclear imaging was obtained in the horizontal long, vertical long, and short axis views. The patient underwent pharmacologic (Regadenoson) evaluation with a peak heart rate of 127 beats per minute (84% percent predicted maximal heart rate) and a peak blood pressure of 154/84 mmHg. The patient was injected with 44.8 millicuries of technetium 99m Cardiolite and subsequently stress SPECT Cardiolite nuclear imaging was obtained in the horizontal long, vertical long, and short axis views. A gated Cardiolite study at peak stress was obtained. Interpretation: Rest and stress SPECT Cardiolite nuclear imaging status post realignment, normalization, and attenuation correction demonstrate the appearance of relative uniform tracer uptake at rest and status post stress an area of diminished tracer uptake in the distal inferior/inferoapical segments. There are similar type findings on the resting and stress polar map images. There is end systolic thickening and brightening. The gated Cardiolite study demonstrates myocardial thickening and inward wall motion. The reported LVEF is 59%. Impression: 1. Rest and stress SPECT her nuclear imaging demonstrate myocardial perfusion changes appearing compatible with an area of stress-induced myocardial ischemia in portions of the distal inferior/inferior apical segments. 2. The gated Cardiolite study reports an LVEF of 59%. This note was generated with [employer] software. It may contain incorrect words, spelling, and punctuation that were not noted in checking the note before signing.
== END ==
PROVIDERS: PCP Internal Medicine; Referring Provider Internal Medicine Cardiovascular Disease; Visit Provider Internal Medicine Cardiovascular Disease
DX: I25.10 Atherosclerotic heart disease of native coronary artery without angina pectoris (principal); R06.00 Dyspnea, unspecified; Z95.5 Presence of coronary angioplasty implant and graft
CPT/HCPCS: 78452; 93017; 93306; A9500; Q9957; A4216; C8929; J2785

== ENCOUNTER → 2019-12-15 06:16 | Outpatient (CLI) | payer MEDICARE, OTHER, SELFPAY ==
[2019-11-25 11:11] VITALS: BMI 44.2
[2019-12-15 07:33] LABS: Anion Gap 6 (5-15); BUN 14 mg/dL (7-18); BUN/Creat Ratio 13.3 RATIO (10-20); Calcium,Total 8.9 mg/dL (8.5-10.1); Chloride 106 mmol/L (98-107); Creatinine, Serum 1.05 mg/dL (0.70-1.30); EST Glomerular Filtration Rate 74 mL/min (>60); Est Glom Filt Rate - Afr Amer 90 mL/min (>60); Glucose 141 mg/dL (74-106); Potassium 4.1 mmol/L (3.5-5.1); Sodium Level 139 mmol/L (136-145)
== END ==
PROVIDERS: PCP Internal Medicine; Referring Provider Internal Medicine Cardiovascular Disease; Visit Provider Internal Medicine Cardiovascular Disease
DX: I25.10 Atherosclerotic heart disease of native coronary artery without angina pectoris (principal); I10 Essential (primary) hypertension; I48.0 Paroxysmal atrial fibrillation; Z95.5 Presence of coronary angioplasty implant and graft
CPT/HCPCS: 36415; 80048

== ENCOUNTER 2019-12-29 07:02 | Day surgery (SDC) | payer MEDICARE, OTHER, SELFPAY ==
[2019-11-25 11:11] VITALS: BMI 44.2
[2019-12-22 06:53] LABS: Hematocrit 38.1 % (40-54); Hemoglobin 11.7 g/dL (13.0-16.5); Mean Corp Hgb Conc 30.7 g/dL (32-36); Mean Corpuscular Hgb 27.9 pg (27.0-32.0); Mean Corpuscular Volume 90.9 fL (80-94); Mean Platelet Vol. 9.4 fl (6.2-12.0); Platelet Count 247 K/mm3 (150-450); RBC Distribution Width CV 13.6 % (11.6-14.6); RBC Distribution Width SD 45.2 fl (35.1-43.9); Red Blood Count 4.19 M/mm3 (4.6-6.2); White Blood Count 4.8 K/mm3 (4.4-11.0)
[2019-12-22 07:02] LABS: International Normalized Ratio 1.3; Partial Thromboplast Time 29.1 Seconds (24.1-36.2); Prothrombin Time (Protime)PT. 15.4 SECONDS (11.7-14.9)
[2019-12-22 07:14] LABS: Anion Gap 4 (5-15); BUN 14 mg/dL (7-18); BUN/Creat Ratio 12.2 RATIO (10-20); Calcium,Total 9.2 mg/dL (8.5-10.1); Chloride 108 mmol/L (98-107); Creatinine, Serum 1.15 mg/dL (0.70-1.30); EST Glomerular Filtration Rate 67 mL/min (>60); Est Glom Filt Rate - Afr Amer 81 mL/min (>60); Glucose 121 mg/dL (74-106); Sodium Level 141 mmol/L (136-145)
[2019-12-24 09:35] VITALS: BMI 44.2
[2019-12-28 10:15] VITALS: BMI 44.2
--- NOTE | 2019-12-29 07:58 | PCM.HP.BLA ---
Problem List (1) Abnormal stress test Status: Acute (2) CAD (coronary artery disease) Status: Chronic Qualifiers: Coronary Disease-Associated Artery/Lesion type: [place] artery [place] vs. transplanted heart: [place] heart (3) Presence of stent in coronary artery Status: Chronic Comment: PTCA with DILIA to CFX 2nd marginal 06/30 (4) Paroxysmal atrial fibrillation Status: Chronic (5) HLD (hyperlipidemia) Status: Chronic (6) Essential hypertension Status: Chronic (7) Type 2 diabetes mellitus Status: Chronic History and Physical Date of Admission: 12/29/19 [facility] [address] [place] [address] OFFICE VISIT Date of Service: 11/25/19 MR#: [id number] Acct: [id number] Name: MIGUELANGEL MOYA Rep #: [id number] : 1950 Provider: Dr. Son Deluna MD Age/Sex: 69/M Location: [facility] Status: Signed HPI HPI History of Present Illness Details: MIGUELANGEL MOYA, is a 69 year old white male who presents to the office today for cardiovascular follow up of his history of underlying atrial dysrhythmia, CAD, PCI, hyperlipidemia, hypertension. From a cardiac standpoint his main concerns are his shortness of breath and dyspnea. He has not had classic angina pectoris with respect to chest discomfort. He denies orthopnea or PND. Has chronic lower extremity peripheral pitting edema which is worsened. He was evaluated at [facility] in September 2019 for a variety of concerns which included acute renal insufficiency. He states his medications had to be readjusted. Over time his renal function is improving as noted by laboratory studies his brings with her today from 11-05-2019 stating his BUN is now down to 21 and his creatinine is down to 1.39 (from greater than 5) and his potassium was 4.4. He states there is still concerns about his renal function. He has future follow-up planned with nephrology next month. Intake Vital Signs 11/25/19 Height 5 ft 8 in 11/25/19 Weight: 291 lb 4 oz 11/25/19 BP 128/80 H 11/25/19 Blood Pressure Location Rt brachial 11/25/19 Position Sitting 11/25/19 Respiration 18 11/25/19 Pulse 76 11/25/19 Pulse Source Auscultation Intake Visit Reasons: 6 m fu Clinical Data Analyst Required: No Accompanied by: Allergies hydrocodone [From Vicodin] Adverse Reaction (Severe, Verified 11/25/19 11:15) Hives ramipril [From Altace] Adverse Reaction (Severe, Verified 11/25/19 11:15) Fast HR valsartan [From Diovan] Adverse Reaction (Severe, Verified 11/25/19 11:15) Fast HR Ludnwqc-Rst-Yxn Reductase Inhibitor Adverse Reaction (Intermediate, Verified 11/25/19 11:15) Muscle aches Medications ascorbic acid (vitamin C) 1,000 mg tablet 1,000 mg PO DAILY tab 05/30/17 [History Confirmed 11/25/19] aspirin 325 mg tablet 325 mg PO DAILY tab 05/30/17 [History Confirmed 11/25/19] nitroglycerin 0.4 mg sublingual tablet 0.4 mg SUBLINGUAL Q5M PRN 05/30/17 [History Confirmed 11/25/19] biotin 1 mg tablet 1 mg PO DAILY 05/25/19 [History Confirmed 11/25/19] insulin glargine 100 unit/mL (3 mL) subcutaneous pen 56 unit SC QHS ml 05/25/19 [History Confirmed 11/25/19] omega-3 fatty acids 1,000 mg capsule 3,000 mg PO DAILY cap 05/25/19 [History Confirmed 11/25/19] Doxazosin Mesylate 1 mg PO QHS 09/15/19 [History Confirmed 11/25/19] Metoprolol Tartrate [Lopressor (beta jones)] 50 mg PO BID 09/15/19 [History Confirmed 11/25/19] Multivitamin with Minerals [Multiple Vitamin] 1 tab PO DAILY 09/15/19 [History Confirmed 11/25/19] Acetaminophen [Tylenol Tablet] 500 mg PO Q4H PRN tab 09/19/19 [Rx Confirmed 11/25/19] amlodipine 10 mg tablet 10 mg PO DAILY #30 tab 11/16/19 [Rx Confirmed 11/25/19] glimepiride 4 mg tablet 2 mg PO DAILY tab 11/25/19 [History Confirmed 11/25/19] cuwuyfhve-mysfqahzg-biyvhtrl-scop 16.2 mg-0.1037 mg-0.0194 mg tablet 1 tab PO TID PRN 11/25/19 [History Confirmed 11/25/19] PFSH Family History Other Family history of CVA Family history of hyperlipidemia Family history of hypertension Social History (Updated 11/25/19 @ 14:[address] Son Deluna MD) Smoking Status: Never smoker alcohol intake: current details: whiskey,daily substance use type: does not use ROS Const Const: Positive for fatigue; negative for weakness, frequent falls, excessive sweating, weight gain or weight loss Eyes Eyes: Negative for transient loss of vision, blurry vision or change in vision ENT ENT: Positive for balance problems (ambulates with a cane); negative for dizziness Cardio Chest Pain: No Palpitations: No Edema: Right (LE +1-2), Left (LE +1) Muscle aches with walking: None Resp Respiratory: Positive for SOB with activity (increased); negative for SOB at rest GI GI: Negative vomiting or vomiting blood/hematemesis : Negative for hematuria Musc Musc: Positive for balance problems (ambulates with a cane); negative for muscle aches/ myalgia, muscle weakness or joint pain Skin Skin: Negative non-healing lesions or rash Neuro Neuro: Negative for dizziness, lightheadedness, orthostatic symptoms, frequent falls, weakness or blurry vision Ariel Hematologic/Lymphatic: Negative for easy bleeding Endo Endo: Positive for fatigue; negative for excessive sweating Psych Psych: Negative for anxiety or depression Allergy Allergy/Immunology: Negative for hives, Negative for rash Cardiology Exam Const Appearance: cooperative, healthy appearing, comfortable, no acute distress, well developed and well groomed Nutritional Appearance: obese Orientation: alert, awake and oriented x3 Head Head: normal to inspection, normocephalic and atraumatic Ears: hearing grossly normal bilaterally Nose: external nose normal Face and Sinus: face symmetric Eyes Eyelids: eyelids normal Conjunctivae: conjunctivae normal Pupils: PERRL EOM: EOM intact bilaterally Neck Neck: normal visual inspection, full ROM and no JVD Carotids: Negative bruit Neck Mass: Negative Neck mass Chest Chest inspection: normal inspection of the chest, symmetric chest movement and normal respiratory effort Auscultation: Bilateral: Clear to Auscultation Cardio Palpation: normal PMI Rate: regular rate Rhythm: irregular rhythm Heart sounds: S1 normal and S2 normal; negative rub, gallop or murmur GI GI: normal to inspection, soft, bowel sounds present and obese Neuro General: alert, awake, oriented x3 and moves all extremities Skin Skin: no rashes or lesions noted Extremities Pulses: Normal: Right Posterior Tibial Pulse, Left Posterior Tibial Pulse, Right Radial Pulse, Left Radial Pulse Lower Extremity Edema: +2: Bilateral Psych Psychological: normal affect Assessment & Plan 1. Atherosclerosis of [place] coronary artery of [place] heart without angina pectoris I25.10 Plan At the present time he is continuing medical management with adjustment based upon his clinical status, his renal function, etc. It is unclear whether his shortness of breath and dyspnea is related to a combination of his age, body habitus, diminished functional status, or any component of changing underlying cardiovascular disease. Thus he will undergo further evaluation with a follow-up transthoracic echocardiogram to reassess his left ventricular wall motion and systolic function and a pharmacologic stress nuclear imaging study to look for any obvious progression of myocardial ischemia that would warrant further evaluation with cardiac catheterization. It is noted with cardiac catheterization the patient states he would have to consider whether he would want to proceed with that type of procedure, even if his renal function allowed, versus continued conservative medical management. Orders Orders: Echo Complete Today 2. Presence of stent in coronary artery Z95.5 PTCA with DILIA to CFX 2nd marginal 06/30 Plan He will continue evaluation care as noted above Orders Orders: Nuclear Stress Test - Chemical Today 3. PAF (paroxysmal atrial fibrillation) I48.0 Plan He remains in atrial fibrillation. As before he has declined any reattempted anticoagulant therapy based on previous hemorrhagic issues, etc. 4. Pure hypercholesterolemia E78.00 Plan He has declined medical management for hyperlipidemia the past based on concerns of gastrointestinal side effects. 5. Essential hypertension I10 Plan His blood pressure is waxed and waned. However his states overall, based upon the number she presents, it is come under much better control since his amlodipine was adjusted. She states at the same time she does not believe he has had any adverse events from being on amlodipine therapy. Plan Detail Additional Comments Thank you for allowing me to participate in the care of your patient. Please don't hesitate to call if any issues arise. This note was generated using a voice recognition system and there may be incorrect words, spelling or punctuation that were not noted when reviewing the office note prior to saving. Follow Up 6 Months (with PFM) Coding Level of Care Code Off vis,est,level 4 Diagnoses Atherosclerosis of [place] coronary artery of [place] heart without angina pectoris I25.10 ??[place] vs. transplanted heart: [place] heart Presence of stent in coronary artery Z95.5 PAF (paroxysmal atrial fibrillation) I48.0 Pure hypercholesterolemia E78.00 Essential hypertension I10 Coding Level of Care Code Off vis,est,level 4 Diagnoses Atherosclerosis of [place] coronary artery of [place] heart without angina pectoris I25.10 ??[place] vs. transplanted heart: [place] heart Presence of stent in coronary artery Z95.5 PAF (paroxysmal atrial fibrillation) I48.0 Pure hypercholesterolemia E78.00 Essential hypertension I10 Supplemental Info Supplemental Information Transthoracic echocardiogram: 02/21/2017 The study was technically difficult. Contrast injection was performed. Left ventricular systolic function is normal. The estimated ejection fraction is 60 %. The left atrium is moderately enlarged. There is mild to moderate mitral annular calcification. Extension of the mitral annular calcification onto the posterior mitral valve leaflet. Trivial mitral valve insufficiency. Trivial tricuspid valve insufficiency. Mild aortic stenosis. Calcified aortic root. Right ventricular systolic pressure estimated to be 21 mmHg. Stress test: 02/21/2017 Procedure: Pharmacologic stress nuclear imaging study Indications: Shortness of breath/dyspnea; atrial fibrillation; CAD; PCI Consent: Per the patient Procedure: The patient underwent pharmacologic (Regadenoson) evaluation with a peak heart rate of 109 bpm (70% predicted maximal heart rate (with a peak blood pressure 122/86 mmHg. The baseline ECG demonstrated atrial fibrillation. The peak pharmacologic ECG demonstrated no obvious ECG changes. There was occasional PVC pretest, during infusion, and recovery. There was no report of chest discomfort during pharmacologic infusion or recovery. The examination was discontinued secondary to completion of protocol. Impression: 1. Pharmacologic (Regadenoson) evaluation 2. Peak pharmacologic ECG with no obvious ECG changes 3. Occasional PVC pretest, during infusion, and recovery 4. Nuclear images pending Myocardial perfusion imaging study: Technique: The patient was injected with 14.4 mCi of technetium 99m Cardiolite and subsequently rest SPECT cardiac nuclear imaging was obtained in the horizontal long, vertical long, and short axis views. The patient underwent pharmacologic (Regadenoson) evaluation with a peak heart rate of 109 bpm (70% predicted maximal heart rate (with a peak blood pressure 122/86 mmHg with the patient was injected with 44.9 mCi of technetium 99m Cardiolite and subsequently stress SPECT Cardiolite nuclear imaging was obtained in the horizontal long, vertical long, and short axis views. A gated Cardiolite study at peak stress was obtained. Interpretation: Rest and stress SPECT cardiac nuclear imaging status post realignment, normalization, and attenuation correction, demonstrates the appearance of cardiac/gastrointestinal tracer uptake near the inferior segments and otherwise relative uniform tracer uptake. There is end systolic thickening and brightening. The gated Cardiolite study demonstrates myocardial thickening and inward wall motion. The reported LVEF is 64%. Impression: 1. Rest and stress SPECT current nuclear imaging demonstrates the appearance of extracardiac/gastrointestinal tracer uptake and otherwise relative uniform tracer uptake with no myocardial perfusion changes consider diagnostic for associated stress-induced myocardial ischemia or previous myocardial injury/infarction. 2. The gated Cardiolite study reports an LVEF of 64%. Labs LDL Cholesterol 171 mg/dL (0-130) H 08/06/13 HDL Cholesterol 36 mg/dL (40-) L 08/06/13 Triglycerides 204 mg/dL (0-199) H 08/06/13 VLDL Cholesterol 41 mg/dL (5-40) H 08/06/13 Diagnostics Electrocardiogram 10/01/19 Stress Test Nuclear Medicine 02/21/17 Stress Test 02/21/17 Chest X-Ray 10/01/19 11/25/19 0637 <Electronically signed by Son Deluna MD> Date Son Deluna MD Cosigner Signature: Date (if applicable) CC: Dr. Krishna Reynolds MD ~ I have examined the patient the following changes are noted: The patient has undergone evaluation with transthoracic echocardiogram. The results are noted below. Interpretation Summary The study was technically difficult. Contrast injection was performed. Based upon the 2D echocardiographic and contrast enhanced images obtained there appears to be grossly normal left ventricular size, wall motion, and systolic function. The estimated ejection fraction is 65 %. The left atrium is severely enlarged. There is mild mitral annular calcification. Trivial mitral valve insufficiency. Trivial tricuspid valve insufficiency. Mild aortic stenosis. Right ventricular systolic pressure estimated to be 40 mmHg. Unable to assess diastolic dysfunction. The patient underwent evaluation with a pharmacologic stress nuclear imaging study. The results are noted below. Stress Test Report Date: 12-10-2019 Procedure: Pharmacologic stress nuclear imaging study Indications: Shortness of breath/dyspnea on exertion; CAD; PCI Consent: Per the patient Procedure: The patient underwent pharmacologic (Regadenoson) evaluation with a peak heart rate of 127 beats per minute (84%predicted maximal heart rate) and a peak blood pressure of 154/84 mmHg. The baseline ECG demonstrated atrial fibrillation; nonspecific ST segment abnormality. The peak pharmacologic ECG demonstrated no obvious ECG changes. There was a rare PVC during recovery. There was no complaint of chest discomfort during pharmacologic infusion or recovery. The examination was discontinued secondary to completion of protocol. Impression: 1. Pharmacologic (Regadenoson) evaluation 2. Peak pharmacologic ECG with continued nonspecific ST segment changes. 3. There was a rare PVC during recovery. 4. Nuclear images pending Myocardial perfusion imaging study: Technique: The patient was injected with 14.7 millicuries of technetium 99m Cardiolite and subsequently rest SPECT Cardiolite nuclear imaging was obtained in the horizontal long, vertical long, and short axis views. The patient underwent pharmacologic (Regadenoson) evaluation with a peak heart rate of 127 beats per minute (84% percent predicted maximal heart rate) and a peak blood pressure of 154/84 mmHg. The patient was injected with 44.8 millicuries of technetium 99m Cardiolite and subsequently stress SPECT Cardiolite nuclear imaging was obtained in the horizontal long, vertical long, and short axis views. A gated Cardiolite study at peak stress was obtained. Interpretation: Rest and stress SPECT Cardiolite nuclear imaging status post realignment, normalization, and attenuation correction demonstrate the appearance of relative uniform tracer uptake at rest and status post stress an area of diminished tracer uptake in the distal inferior/inferoapical segments. There are similar type findings on the resting and stress polar map images. There is end systolic thickening and brightening. The gated Cardiolite study demonstrates myocardial thickening and inward wall motion. The reported LVEF is 59%. Impression: 1. Rest and stress SPECT her nuclear imaging demonstrate myocardial perfusion changes appearing compatible with an area of stress-induced myocardial ischemia in portions of the distal inferior/inferior apical segments. 2. The gated Cardiolite study reports an LVEF of 59%. The recommendation was made for further evaluation with diagnostic cardiac catheterization. The procedure and risks were discussed with the patient. He was agreeable to this approach. Procedure Criteria Procedure Type: Elective COVID Risk Discussion: The surgeon/proceduralist and patient have discussed in detail the risk of exposure to and/or potential harm posed by the COVID-19 virus with having a surgery/procedure at this time versus the risk of delaying the surgery/procedure. It is not possible to know either the risk of delaying the surgery or procedure or chance of getting an infection with perfect accuracy, but a joint decision was made between the patient and the surgeon/proceduralist to proceed at this time with the scheduled surgery/procedure as indicated on the consent form.
--- NOTE | 2019-12-29 08:15 | PCM.HP.BLA ---
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 He has a history of underlying atrial dysrhythmia, CAD, PCI, hyperlipidemia, hypertension. From a cardiac standpoint his main concerns are his shortness of breath and dyspnea, which continues today. He has not had classic angina pectoris with respect to chest discomfort. He denies orthopnea or PND. Has chronic lower extremity peripheral pitting edema which is worsened. He was evaluated at [facility] in September 2019 for a variety of concerns which included acute renal insufficiency. He states his medications had to be readjusted. Over time his renal function is improving as noted by laboratory studies his brings with her today from 11-05-2019 stating his BUN is now down to 21 and his creatinine is down to 1.39 (from greater than 5) and his potassium was 4.4. He states there is still concerns about his renal function. He has future follow-up planned with nephrology later this month. Intake Vital Signs: See EMR Intake Visit Reasons: [facility] Sql Report Analyst Required: No Accompanied by: Allergies hydrocodone [From Vicodin] Adverse Reaction (Severe, Verified 11/25/19 11:15) Hives ramipril [From Altace] Adverse Reaction (Severe, Verified 11/25/19 11:15) Fast HR valsartan [From Diovan] Adverse Reaction (Severe, Verified 11/25/19 11:15) Fast HR Xjtxqlr-Nfa-Rbm Reductase Inhibitor Adverse Reaction (Intermediate, Verified 11/25/19 11:15) Muscle aches Medications See EMR [facility] Family History Other Family history of CVA Family history of hyperlipidemia Family history of hypertension Social History (Updated 11/25/19 @ 14:[address] Son Deluna MD) Smoking Status: Never smoker alcohol intake: current details: whiskey,daily substance use type: does not use ROS Const Const: Positive for fatigue; negative for weakness, frequent falls, excessive sweating, weight gain or weight loss Eyes Eyes: Negative for transient loss of vision, blurry vision or change in vision ENT ENT: Positive for balance problems (ambulates with a cane); negative for dizziness Cardio Chest Pain: No Palpitations: No Edema: Right (LE +2), Left (LE +2) Muscle aches with walking: None Resp Respiratory: Positive for SOB with activity (increased); negative for SOB at rest GI GI: Negative vomiting or vomiting blood/hematemesis : Negative for hematuria Musc Musc: Positive for balance problems (ambulates with a cane); negative for muscle aches/ myalgia, muscle weakness or joint pain Skin Skin: Negative non-healing lesions or rash Neuro Neuro: Negative for dizziness, lightheadedness, orthostatic symptoms, frequent falls, weakness or blurry vision Ariel Hematologic/Lymphatic: Negative for easy bleeding Endo Endo: Positive for fatigue; negative for excessive sweating Psych Psych: Negative for anxiety or depression Allergy Allergy/Immunology: Negative for hives, Negative for rash Cardiology Exam Const Appearance: cooperative, healthy appearing, comfortable, no acute distress, well developed and well groomed Nutritional Appearance: obese Orientation: alert, awake and oriented x3 Head Head: normal to inspection, normocephalic and atraumatic Ears: hearing grossly normal bilaterally Nose: external nose normal Face and Sinus: face symmetric Eyes Eyelids: eyelids normal Conjunctivae: conjunctivae normal Pupils: PERRL EOM: EOM intact bilaterally Neck Neck: normal visual inspection, full ROM and no JVD Carotids: Negative bruit Neck Mass: Negative Neck mass Chest Chest inspection: normal inspection of the chest, symmetric chest movement and normal respiratory effort Auscultation: Bilateral: Clear to Auscultation Cardio Palpation: normal PMI Rate: regular rate Rhythm: irregular rhythm Heart sounds: S1 normal and S2 normal; negative rub, gallop or murmur GI GI: normal to inspection, soft, bowel sounds present and obese Neuro General: alert, awake, oriented x3 and moves all extremities Skin Skin: no rashes or lesions noted Extremities Pulses: Normal: Right Posterior Tibial Pulse, Left Posterior Tibial Pulse, Right Radial Pulse, Left Radial Pulse Lower Extremity Edema: +2: Bilateral Psych Psychological: normal affect Assessment & Plan 1. Atherosclerosis of douglas coronary artery of douglas heart without angina pectoris I25.10 Plan Patient went a stress test on 12/10/2019 that was considered to be abnormal in which it showed an area of stress-induced myocardial ischemia in portions of the distal inferior/inferior apical segments. Due to abnormal stress test and ongoing symptoms, he will proceed with left heart catheterization. Based on results, further recommendation be made. His echocardiogram on 12/10/2019 showed an ejection fraction of 65%. 2. Presence of stent in coronary artery Z95.5 PTCA with DILIA to CFX 2nd marginal 06/30 Plan He will continue evaluation care as noted above 3. PAF (paroxysmal atrial fibrillation) I48.0 Plan He remains in atrial fibrillation. As before he has declined any reattempted anticoagulant therapy based on previous hemorrhagic issues, etc. 4. Pure hypercholesterolemia E78.00 Plan He has declined medical management for hyperlipidemia the past based on concerns of gastrointestinal side effects. 5. Essential hypertension I10 Plan His blood pressure is waxed and waned. However his states overall, based upon the number she presents, it is come under much better control since his amlodipine was adjusted. She states at the same time she does not believe he has had any adverse events from being on amlodipine therapy. Plan Detail Additional Comments Thank you for allowing me to participate in the care of your patient. Please don't hesitate to call if any issues arise. This note was generated using a voice recognition system and there may be incorrect words, spelling or punctuation that were not noted when reviewing the office note prior to saving. Supplemental Info Supplemental Information Transthoracic echocardiogram: 12/10/2019 Interpretation Summary The study was technically difficult. Contrast injection was performed. Based upon the 2D echocardiographic and contrast enhanced images obtained there appears to be grossly normal left ventricular size, wall motion, and systolic function. The estimated ejection fraction is 65 %. The left atrium is severely enlarged. There is mild mitral annular calcification. Trivial mitral valve insufficiency. Trivial tricuspid valve insufficiency. Mild aortic stenosis. Right ventricular systolic pressure estimated to be 40 mmHg. Unable to assess diastolic dysfunction. Stress Test Report Date: 12-10-2019 Procedure: Pharmacologic stress nuclear imaging study Indications: Shortness of breath/dyspnea on exertion; CAD; PCI Consent: Per the patient Procedure: The patient underwent pharmacologic (Regadenoson) evaluation with a peak heart rate of 127 beats per minute (84%predicted maximal heart rate) and a peak blood pressure of 154/84 mmHg. The baseline ECG demonstrated atrial fibrillation; nonspecific ST segment abnormality. The peak pharmacologic ECG demonstrated no obvious ECG changes. There was a rare PVC during recovery. There was no complaint of chest discomfort during pharmacologic infusion or recovery. The examination was discontinued secondary to completion of protocol. Impression: 1. Pharmacologic (Regadenoson) evaluation 2. Peak pharmacologic ECG with continued nonspecific ST segment changes. 3. There was a rare PVC during recovery. 4. Nuclear images pending Myocardial perfusion imaging study: Technique: The patient was injected with 14.7 millicuries of technetium 99m Cardiolite and subsequently rest SPECT Cardiolite nuclear imaging was obtained in the horizontal long, vertical long, and short axis views. The patient underwent pharmacologic (Regadenoson) evaluation with a peak heart rate of 127 beats per minute (84% percent predicted maximal heart rate) and a peak blood pressure of 154/84 mmHg. The patient was injected with 44.8 millicuries of technetium 99m Cardiolite and subsequently stress SPECT Cardiolite nuclear imaging was obtained in the horizontal long, vertical long, and short axis views. A gated Cardiolite study at peak stress was obtained. Interpretation: Rest and stress SPECT Cardiolite nuclear imaging status post realignment, normalization, and attenuation correction demonstrate the appearance of relative uniform tracer uptake at rest and status post stress an area of diminished tracer uptake in the distal inferior/inferoapical segments. There are similar type findings on the resting and stress polar map images. There is end systolic thickening and brightening. The gated Cardiolite study demonstrates myocardial thickening and inward wall motion. The reported LVEF is 59%. Impression: 1. Rest and stress SPECT her nuclear imaging demonstrate myocardial perfusion changes appearing compatible with an area of stress-induced myocardial ischemia in portions of the distal inferior/inferior apical segments. 2. The gated Cardiolite study reports an LVEF of 59%. Procedure Criteria Procedure Type: Elective COVID Risk Discussion: The surgeon/proceduralist and patient have discussed in detail the risk of exposure to and/or potential harm posed by the COVID-19 virus with having a surgery/procedure at this time versus the risk of delaying the surgery/procedure. It is not possible to know either the risk of delaying the surgery or procedure or chance of getting an infection with perfect accuracy, but a joint decision was made between the patient and the surgeon/proceduralist to proceed at this time with the scheduled surgery/procedure as indicated on the consent form.
[2019-12-29 10:16] LABS: ACT Activated Clotting Time 147 sec (74-137)
--- NOTE | 2019-12-29 11:34 | CL.D_ITS ---
Patient Name: MIGUELANGEL MOYA Study Date: 12/29/2019 Performing: Son Deluna MD Ht: 68.11 inches 173 cm : 1950 Wt: 291.01 lbs 132 kg Age: 69 Gender: male BSA: 2.4 PROCEDURE(S) PERFORMED [id number], CORONARY OR GRAFT, INITIAL VESSEL CLINICAL PROFILE AND INDICATIONS Indications: Suspected CAD, Other Heart Failure: None Stress/Imaging Date: 11/25/2019Stress Test with SPECT MPI: Positive Angina Classification Anginal Classification w/in 2 Weeks: Anginal Equivalent Dyspnea CAD Presentations: Other: dyspnea on exertion CONCLUSIONS Crow Multivessel CAD RECOMMENDATIONS Risk factor modification Medical therapy Staged for IVUS Surgery consult for coronary revascularization DESCRIPTION OF PROCEDURE The patient arrived to the procedure lab. The risks and benefits of the procedure as well as a full d escription of our services here and current unavailability of surgical backup were fully explained to the patient and/or their significant other prior to the catheterization. The Timeout was completed, verifying the correct patient and procedure. The patient's procedural site was prepped and draped in the usual fashion. Local anesthetic was given subcutaneously to right radial region with Lidocaine 2% . Using a modified Seldinger technique, arterial access was obtained via the right radial artery, a 6 Fr sheath was inserted. Right Coronary Artery selective angiography was then performed in multiple v iews using a 5 Fr. 4.0 [place] catheter. Left Coronary Artery selective angiography was performed in mu ltiple views using a 5 Fr. 4.0 [place] catheter.The arterial sheath was pulled and a TR Band was applie d for hemostasis w/ 13ml air CORONARY ANGIOGRAPHY DOMINANCE: Right Dominant LEFT HEART ASSESSMENT Left Ventricular Ejection Fraction: Not assessed LEFT MAIN: proximal: eccentric: 50 % Stenosis LEFT ANTERIOR DESCENDING ARTERY: Mild calcification PROX LAD: eccentric: 85 % Stenosis CIRCUMFLEX ARTERY: PROX CIRC: Mild calcification, 25 % Stenosis MID CIRC: Previously placed stent is patent DISTAL CIRC: eccentric: 25 % Stenosis OM 1: Proximal - Mild luminal irregularities RIGHT CORONARY ARTERY: Severe calcification OSTIAL RCA: is occluded COLLATERAL FLOW: Collateral flow from Left to Right COMPLICATIONS No Complications PROCEDURE MEDICATIONS Versed 1 mg IV Fentanyl 50 mcg IV Versed 1 mg IV Fentanyl 50 mcg IV Oxygen: 100 % FiO2 via nasal cannula-pt states my nose is stuffed up, I can't breathe. NRB placed f or comfort Heparin diluted in 23cc Heparinized saline. Patient given 10cc IA of this solution. 12/29/2019 08:59: 24 Heparin 5000 unit(s) IV 12/29/2019 09:27:19 Verapamil 2.5mg, Ntg 100mcgs, 2000 units of Heparin diluted in 23cc Heparinized saline. Patient give n 10cc IA of this solution. 12/29/2019 08:59:24 IV Fluids: .9 NaCl IV started @ 75 ml/hr 12/29/2019 09:40:57 SUMMARY OF HEMODYNAMIC DATA Time AIR REST ECG 07:22:03 AO 92/63 (77) SA 09:02:22 AO 136/72 (94) 09:19:47 Signed By Son Deluna MD On 12/29/2019 11:33:14 AM Son Deluna MD
--- NOTE | 2019-12-29 12:35 | CL.I_ITS ---
Patient Name: MIGUELANGEL MOYA Study Date: 12/29/2019 Performing: Amie Ames MD Ht: 68 inches 173 cm : 1950 Wt: 291.4 lbs 132 kg Age: 69 Gender: male BSA: 2.4 PROCEDURE(S) PERFORMED [id number], CORONARY OR GRAFT, INITIAL VESSEL CLINICAL PROFILE AND CO-MORBIDITIES Indications: Suspected CAD, Other Heart Failure: None Stress/Imaging Date: 11/25/2019 Stress Test with SPECT MPI: Positive Angina Classification Anginal Classification w/in 2 Weeks: Anginal Equivalent Dyspnea CAD Presentations: Other: dyspnea on exertion CONCLUSIONS Patient has significant stenosis of the mid LAD, patent OM 1 stent, FILE 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 IVUS significant for ostial left main/proximal RECOMMENDATIONS Evaluation by CV surgeon and viability study for the RCA. DESCRIPTION OF PROCEDURE The patient arrived to the procedure lab. The risks and benefits of the procedure as well as a full d escription of our services here and current unavailability of surgical backup were fully explained to the patient and/or their significant other prior to the catheterization. The Timeout was completed, verifying the correct patient and procedure. The patient's procedural site was prepped and draped in the usual fashion. Local anesthetic was given subcutaneously to right radial region with Lidocaine 2% Using a modified Seldinger technique,arterial access was obtained via the right radial artery, a 6Fr sheath was inserted. Right Coronary Artery selective angiography was then performed in multiple view s using a 5 Fr. 4.0 [place] catheter. Left Coronary Artery selective angiography was performed in multi ple views using a 5 Fr. 4.0 [place] catheter. EBU 3.5 Guide catheter was inserted and engaged into the LCA. 6fr JL 4 Guide catheter was inserte d and engaged into the LCA. Runthrough Guide wire was advanced to the Left main. IVUS pullback record ing was performed on the Left Main for pre- intervention / lesion assessment. The arterial sheath w as pulled and a TR Band was applied for hemostasis w/ 13ml air INTERVENTION INFORMATION LESION SITE: Left Main (Ostial) PROCEDURE: IVUS for pre PCI assessment of vessel Intermediate ostial/proximal Left Main lesion evaluated by IVUS revealed significant stenosis. MLA m easuring 4.7-5.0 mm2. Lesion Devices: IGT Devices ( Former[place]) Coronary IVUS Catheter Terumo .014 Runthrough Extra Floppy 180cm straight Medtronic 6 Fr JL4.0 100cm Guide Catheter COMPLICATIONS No Complications PROCEDURE MEDICATIONS Versed 1 mg IV Fentanyl 50 mcg IV Versed 1 mg IV Fentanyl 50 mcg IV Oxygen: 100 % FiO2 via nasal cannula-pt states my nose is stuffed up, I can't breathe. NRB placed f or comfort Heparin diluted in 23cc Heparinized saline. Patient given 10cc IA of this solution. 12/29/2019 08:59: 24 Heparin 5000 unit(s) IV 12/29/2019 09:27:19 Verapamil 2.5mg, Ntg 100mcgs, 2000 units of Heparin diluted in 23cc Heparinized saline. Patient give n 10cc IA of this solution. 12/29/2019 08:59:24 IV Fluids: .9 NaCl IV started @ 75 ml/hr 12/29/2019 09:40:57 SUMMARY OF HEMODYNAMIC DATA Time AIR REST ECG 07:22:03 AO 92/63 (77) SA 09:02:22 AO 136/72 (94) 09:19:47 RM AIR REST 11:33:16 Signed By Amie Ames MD On 12/29/2019 12:34:19 PM Amie Ames MD
== END 2019-12-29 12:05 | disposition home or self-care (01) ==
LOC: CLSP 07:04
PROVIDERS: PCP Internal Medicine; Referring Provider Internal Medicine Cardiovascular Disease; Visit Provider Internal Medicine Cardiovascular Disease
DX: R94.39 Abnormal result of other cardiovascular function study (principal); I25.10 Atherosclerotic heart disease of native coronary artery without angina pectoris; E78.5 Hyperlipidemia, unspecified; I10 Essential (primary) hypertension; E11.9 Type 2 diabetes mellitus without complications; I48.0 Paroxysmal atrial fibrillation; Z95.5 Presence of coronary angioplasty implant and graft; Z79.899 Other long term (current) drug therapy; Z79.4 Long term (current) use of insulin; Z79.82 Long term (current) use of aspirin; Z79.02 Long term (current) use of antithrombotics/antiplatelets
CPT/HCPCS: 36415; 80048; 85027; 85347; 85610; 85730; 92978; 93454; 99152; 99153; J7040; Q9967; C1753; C1769; C1887; C1894

== ENCOUNTER → 2020-01-01 06:17 | Outpatient (CLI) | payer MEDICARE, OTHER, SELFPAY ==
[2019-12-28 10:15] VITALS: BMI 44.2
[2020-01-01 07:08] LABS: Color, Urine Yellow (Yellow); Glucose, Dipstick Normal (Normal); Ketone-Dipstick Negative (Negative); Leukocyte Esterase-Dipstick Negative /ul (Negative); Nitrite-Dipstick Negative (Negative); Occult Blood-Urine Negative /ul (Negative); Protein-Dipstick Negative (Negative); Specific Gravity, Urine 1.015 (1.002-1.030); Urine Bilirubin Dipstick Negative (Negative); Urine Clarity Clear (Clear); Urine Urobilinogen Normal (Normal)
[2020-01-01 07:20] LABS: Protein, Urine (Random) 8.3 mg/dL (<11.9); Protein:Creat Ratio 114 mg/g CRE (0-200)
[2020-01-01 07:34] LABS: Anion Gap 5 (5-15); BUN 17 mg/dL (7-18); BUN/Creat Ratio 14.7 RATIO (10-20); Calcium,Total 9.1 mg/dL (8.5-10.1); Chloride 104 mmol/L (98-107); Creatinine, Serum 1.16 mg/dL (0.70-1.30); EST Glomerular Filtration Rate 66 mL/min (>60); Est Glom Filt Rate - Afr Amer 80 mL/min (>60); Glucose 142 mg/dL (74-106); Potassium 4.2 mmol/L (3.5-5.1); Sodium Level 137 mmol/L (136-145)
== END ==
PROVIDERS: PCP Internal Medicine; Referring Provider Internal Medicine; Visit Provider Internal Medicine
DX: I10 Essential (primary) hypertension (principal); E87.5 Hyperkalemia
CPT/HCPCS: 80048; 81002; 82570; 84156

== ENCOUNTER → 2020-01-14 06:03 | Outpatient (CLI) | payer MEDICARE, OTHER, SELFPAY ==
[2019-12-28 10:15] VITALS: BMI 44.2
[2020-01-14 06:10] LABS: Bacteria 0 SEEN /hpf (None Seen); Mucous, Urine 0 SEEN /hpf (<or=2+); Red Blood Cells-Urine 0 SEEN /hpf (0-5); Squamous Epithelial Cells - UA 0 SEEN /hpf (0-5)
[2020-01-14 07:29] LABS: Color, Urine Yellow (Yellow); Glucose, Dipstick Normal (Normal); Ketone-Dipstick Negative (Negative); Leukocyte Esterase-Dipstick Negative /ul (Negative); Nitrite-Dipstick Negative (Negative); Occult Blood-Urine Negative /ul (Negative); Protein-Dipstick 30 mg/dl (Negative); Specific Gravity, Urine 1.025 (1.002-1.030); Urine Bilirubin Dipstick Negative (Negative); Urine Clarity Clear (Clear); Urine Urobilinogen Normal (Normal)
[2020-01-14 07:38] LABS: Protein, Urine (Random) 33.5 mg/dL (<11.9); Protein:Creat Ratio 167 mg/g CRE (0-200)
[2020-01-14 07:39] LABS: Anion Gap 7 (5-15); BUN 19 mg/dL (7-18); BUN/Creat Ratio 13.9 RATIO (10-20); Calcium,Total 8.8 mg/dL (8.5-10.1); Chloride 100 mmol/L (98-107); Creatinine, Serum 1.37 mg/dL (0.70-1.30); EST Glomerular Filtration Rate 55 mL/min (>60); Est Glom Filt Rate - Afr Amer 66 mL/min (>60); Glucose 184 mg/dL (74-106); Phosphorus 3.6 mg/dL (2.5-4.9); Potassium 3.7 mmol/L (3.5-5.1); Sodium Level 138 mmol/L (136-145)
[2020-01-14 07:40] LABS: Hyaline Cast 0-5 SEEN /lpf (0-5); White Blood Cells 0-5 SEEN /hpf (0-5)
[2020-01-14 08:01] LABS: PTHIN 171.3 pg/mL (18.4-80.1)
[2020-01-14 08:10] LABS: Vitamin D,25 Hydroxy 28.7 ng/mL
== END ==
PROVIDERS: Internal Medicine Cardiovascular Disease; PCP Internal Medicine; Referring Provider Internal Medicine; Visit Provider Internal Medicine
DX: N17.9 Acute kidney failure, unspecified (principal); E21.3 Hyperparathyroidism, unspecified; I10 Essential (primary) hypertension; I25.10 Atherosclerotic heart disease of native coronary artery without angina pectoris; I48.0 Paroxysmal atrial fibrillation; Z95.5 Presence of coronary angioplasty implant and graft
CPT/HCPCS: 36415; 80048; 81001; 82306; 82570; 83970; 84100; 84156

== ENCOUNTER → 2020-01-29 06:46 | Outpatient (CLI) | payer MEDICARE, OTHER, SELFPAY ==
[2019-12-28 10:15] VITALS: BMI 44.2
[2020-01-29 08:16] LABS: Anion Gap 8 (5-15); BUN 16 mg/dL (7-18); BUN/Creat Ratio 13.3 RATIO (10-20); Calcium,Total 9.3 mg/dL (8.5-10.1); Chloride 101 mmol/L (98-107); EST Glomerular Filtration Rate 64 mL/min (>60); Est Glom Filt Rate - Afr Amer 77 mL/min (>60); Glucose 133 mg/dL (74-106); Potassium 3.6 mmol/L (3.5-5.1); Sodium Level 138 mmol/L (136-145)
== END ==
PROVIDERS: PCP Internal Medicine; Referring Provider Internal Medicine Cardiovascular Disease; Visit Provider Internal Medicine Cardiovascular Disease
DX: E78.5 Hyperlipidemia, unspecified (principal); I10 Essential (primary) hypertension; E11.9 Type 2 diabetes mellitus without complications; N17.9 Acute kidney failure, unspecified
CPT/HCPCS: 36415; 80048

== ENCOUNTER → 2020-03-22 20:13 | Outpatient (CLI) | payer MEDICARE, OTHER, SELFPAY ==
[2020-03-10 12:48] VITALS: BMI 45.8
== END ==
PROVIDERS: PCP Internal Medicine; Referring Provider Internal Medicine Critical Care Medicine; Visit Provider Internal Medicine Critical Care Medicine
DX: G47.33 Obstructive sleep apnea (adult) (pediatric) (principal)
CPT/HCPCS: 95810

== ENCOUNTER → 2020-04-06 07:31 | Outpatient (CLI) | payer MEDICARE, OTHER, SELFPAY ==
[2020-03-10 12:48] VITALS: BMI 45.8
[2020-04-06 08:38] LABS: Protein:Creat Ratio 289 mg/g CRE (0-200)
[2020-04-06 08:39] LABS: Color, Urine Yellow (Yellow); Glucose, Dipstick Normal (Normal); Ketone-Dipstick 5 mg/dl (Negative); Leukocyte Esterase-Dipstick Negative /ul (Negative); Nitrite-Dipstick Negative (Negative); Occult Blood-Urine Negative /ul (Negative); Protein-Dipstick 100 mg/dl (Negative); Specific Gravity, Urine 1.025 (1.002-1.030); Urine Bilirubin Dipstick Negative (Negative); Urine Clarity Sl. Cloudy (Clear); Urine Urobilinogen Normal (Normal)
[2020-04-06 09:03] LABS: Anion Gap 5 (5-15); BUN 15 mg/dL (7-18); BUN/Creat Ratio 13.8 RATIO (10-20); Calcium,Total 9.1 mg/dL (8.5-10.1); Chloride 104 mmol/L (98-107); Creatinine, Serum 1.09 mg/dL (0.70-1.30); EST Glomerular Filtration Rate 71 mL/min (>60); Est Glom Filt Rate - Afr Amer 86 mL/min (>60); Glucose 218 mg/dL (74-106); Sodium Level 137 mmol/L (136-145)
[2020-04-06 09:04] LABS: PTHIN 167.4 pg/mL (18.4-80.1)
== END ==
PROVIDERS: PCP Internal Medicine; Referring Provider Internal Medicine; Visit Provider Internal Medicine
DX: I10 Essential (primary) hypertension (principal); E78.5 Hyperlipidemia, unspecified; E21.3 Hyperparathyroidism, unspecified
CPT/HCPCS: 36415; 80048; 81002; 82570; 83970; 84156

== ENCOUNTER 2020-05-25 09:02 | Emergency (ER) | payer MEDICARE, OTHER, SELFPAY ==
[2020-04-21 08:12] VITALS: BMI 46.5
[2020-05-25 09:03] VITALS: BP 140/75; PULSE 94; RESP 18; TEMP 36.7; O2SAT 96; BMI 46.5
[2020-05-25 09:26] VITALS: BP 140/75; PULSE 94; RESP 18; TEMP 36.7; O2SAT 96
--- NOTE | 2020-05-25 09:33 | ED.VIS.GEN ---
History of Present Illness Chief Complaint: Wound Informant: Patient, Family Narrative: Patient is a 69-year-old male with a past medical history of diabetes who presents to the emergency department for left second toe wound. He has a history of osteomyelitis requiring amputation of toes on the right side. He did strike his toe at the beginning of April. He had this evaluated by his orthopedic doctor at that time. The toe was healing until yesterday the noticed that there was a wound starting with fluid underneath the skin. She tried to push this fluid out and thought it was serosanguineous in appearance. Patient has neuropathy and denies any significant pain. He denies any fevers or chills. No nausea/vomiting. The feels like the toe has started to improve in its appearance but was concerned about infection. There has not been streaking up the foot or leg. They state his blood sugars have been in the high 100s to low 200s lately. Past Medical History - Allergies and Home Meds Allergies/Adverse Reactions: Allergies propofol Allergy (Verified 05/25/20 09:06) Other i went crazy hydrocodone [From Vicodin] Adverse Reaction (Severe, Verified 03/10/20 12:49) Hives ramipril [From Altace] Adverse Reaction (Severe, Verified 03/10/20 12:49) Fast HR valsartan [From Diovan] Adverse Reaction (Severe, Verified 03/10/20 12:49) Fast HR Iyhcgba-Btb-Xjf Reductase Inhibitor Adverse Reaction (Intermediate, Verified 03/10/20 12:49) Muscle aches Primary Care Physician: Krishna Reynolds MD [Primary Care Provider] - 2 Days for wound check Prior records reviewed: Yes Surgical History: - - cardiac stent placement Smoking Status: Former smoker - Family History Maternal Family History: Family History (Last Reviewed 04/21/20 @ 08:19 by Judith Lo NP, [employer] MANAGER-C) Other Family history of CVA Family history of hyperlipidemia Family history of hypertension Family History: Reports: Heart Disease, Stroke Paternal Family History: Family History (Last Reviewed 04/21/20 @ 08:19 by Judith Lo NP, [employer] MANAGER-C) Other Family history of CVA Family history of hyperlipidemia Family history of hypertension Family History: Reports: Heart Disease Review of Systems All systems negative except as indicated General: Denies: Chills, Fever, Sweats Eyes: Denies: Visual changes - bilaterally, Diplopia ENT: Denies: Rhinorrhea, Sore throat Cardiovascular: Denies: Chest pain, Palpitations Respiratory: Denies: Dyspnea, Cough, Dyspnea on exertion Gastrointestinal: Denies: Abdominal pain, Nausea, Vomiting, Diarrhea Genitourinary: Denies: Dysuria, Hematuria, Frequency Musculoskeletal: Denies: Back pain, Extremity Pain Skin: Reports: Wounds. Denies: Rash Neurological: Denies: Headache, Weakness, Numbness Physical Exam Vital Signs/Narrative: Vital Signs Temp Pulse Resp BP Pulse Ox 05/25/20 09:26 98.1 F 94 18 140/75 H 96 05/25/20 09:03 98.1 F 94 18 140/75 H 96 Inital Vital Signs reviewed: Yes - Afebrile General: Well nourished, Obese, No Acute Distress Head: Normocephalic, Atraumatic Eyes: Perrl, EOMI ENT: Moist mucous membranes, No rhinorrhea Neck: Supple, Nontender Cardiovascular: Regular rate, Regular rhythm, No murmurs Respiratory: No distress, CTA bilaterally, Chest nontender Abdomen: Soft, Nontender, Nondistended, Umbilical hernia Back: Nontender Extremities: Nontender, No edema Skin: Normal color, No rash, - - Wound at the tip of left second toe. There is bruising with a serosanguineous discharge coming from around the nail base. The toe is mildly warm. Good range of motion. There is some erythema surrounding the toe but does not extend up the foot. Neurological: Alert, Oriented x3, Normal Strength, Normal Sensation Psychological: Normal affect, Normal Mood Diagnostic/Tx/Re-eval X-ray of the toes interpreted by myself. It does not reveal any obvious bony destruction. There is soft tissue swelling present. No gas present. - Medical Decision Making Patient presents to the emergency department for suspected toe infection. They are concerned as he has had osteomyelitis before in the past requiring toe amputation with his history of diabetes. Upon arrival to the emergency department his vital signs within normal limits and he is in no apparent distress. There does appear to be a superficial infection. Will evaluate for osteomyelitis with x-ray and inflammatory markers. Basic lab work obtained. Patient CRP is mildly elevated but he does not have a white blood cell count elevation. X-ray does not show any obvious evidence of osteomyelitis. The understand the MRI would be the best test of choice this can be done as an outpatient if he continues to have any persistent symptoms. He is in no distress. I believe he is a candidate for oral antibiotics. Given first dose here of Keflex and Bactrim. We will write a prescription for outpatient management. He is going to follow-up with his orthopedic doctor this week. Return precautions are reviewed including any streaking up the leg, worsening of the wound or develop any systemic symptoms. They are agreeable with this plan. Discharged home in stable condition. All questions were answered. ED Disposition - Plan for ED Patient: Disposition: Home or Assisted Living Diagnosis: Toe infection Instructions: ED Wound Check (Infection) Prescriptions: Smz/Tmp Ds [Bactrim Ds] 2 tab PO BID #28 tab Transmission Status: Received by [id number] Cephalexin [Keflex] 500 mg PO Q6 7 Days #28 cap Transmission Status: Received by [id number] Referrals: Krishna Reynolds MD [Primary Care Provider] - 2 Days for wound check
[2020-05-25 10:08] LABS: Anion Gap 6 (5-15); BUN 16 mg/dL (7-18); BUN/Creat Ratio 13.6 RATIO (10-20); Calcium,Total 9.1 mg/dL (8.5-10.1); Chloride 101 mmol/L (98-107); Creatinine, Serum 1.18 mg/dL (0.70-1.30); EST Glomerular Filtration Rate 65 mL/min (>60); Est Glom Filt Rate - Afr Amer 79 mL/min (>60); Estimated Creatinine Clearance 55.24 ml/min; Glucose 213 mg/dL (74-106); Potassium 4.2 mmol/L (3.5-5.1); Sodium Level 137 mmol/L (136-145)
--- NOTE | 2020-05-25 10:10 | RAD_ITS ---
STUDY: X-RAY LEFT FOOT, GREAT TOE REASON FOR EXAM: Male, 69 years old. Eval for osteomyelitis -- Toe wound, diabetic hx TECHNIQUE: 3 view(s) of the toe were obtained. COMPARISON: None. FINDINGS: Normal visualized metatarsus. Normal metatarsophalangeal (M.T.P) joint. Normal interphalangeal joints. Normal phalanges and interphalangeal joints. Soft tissue swelling. RAD/Toe(s) Min 2 Views IMPRESSION: Soft tissue swelling. No bony abnormalities seen. Electronically Signed: Shmuel Abdalla MD at 10:36 EST , Service support ,
[2020-05-25 10:14] LABS: Absolute Lymphocyte Count 0.88 X10^3/uL (0.83-4.51); Absolute Neutrophil Count 2.9 X10^3/uL (2.0-7.7); Basophil# 0.04 X10^3/uL; Basophil% 0.9 % (0-1); Eosinophil# 0.11 X10^3/uL; Eosinophils% 2.5 % (0-5); Hematocrit 42.4 % (40-54); Hemoglobin 13.2 g/dL (13.0-16.5); Lymphocyte # 0.88 X10^3/ul (4.0); Lymphocyte % 19.7 % (19-41); Mean Corp Hgb Conc 31.1 g/dL (32-36); Mean Corpuscular Hgb 28.1 pg (27.0-32.0); Mean Corpuscular Volume 90.2 fL (80-94); Mean Platelet Vol. 9.7 fl (6.2-12.0); Monocyte# 0.52 X10^3/uL; Monocyte% 11.7 % (0-10); NRBC Flagged by Analyzer 0 % (0-5); Neutrophil # 2.88 X10^3/uL (2.7-7.7); Neutrophil % 64.5 % (47-70); Platelet Count 241 K/mm3 (150-450); RBC Distribution Width CV 14.1 % (11.6-14.6); RBC Distribution Width SD 46.2 fl (35.1-43.9); White Blood Count 4.5 K/mm3 (4.4-11.0)
[2020-05-25 10:24] LABS: Erythrocyte Sedimentation Rate 21 mm/hr (0-20)
[2020-05-25] MEDS: Cephalexin 250 MG Capsule 500 MG PO (10:57)
[2020-05-25] MEDS: Smz/Tmp Ds Tablet 1 TABLET PO (10:57)
== END 2020-05-25 10:57 | disposition home or self-care (01) ==
PROVIDERS: Emergency Provider Emergency Medicine; PCP Internal Medicine
DX: L08.9 Local infection of the skin and subcutaneous tissue, unspecified (principal); E66.9 Obesity, unspecified; E11.9 Type 2 diabetes mellitus without complications; Z87.891 Personal history of nicotine dependence; Z95.5 Presence of coronary angioplasty implant and graft; Z79.4 Long term (current) use of insulin; Z79.82 Long term (current) use of aspirin
CPT/HCPCS: 73660; 80048; 85025; 85652; 86140; 99284; A4216

== ENCOUNTER 2020-05-26 14:47 | Outpatient (RCR) | payer MEDICARE, OTHER, SELFPAY ==
[2020-04-21 08:12] VITALS: BMI 46.5
[2020-05-25 09:03] VITALS: BMI 46.5
[2020-05-26] MEDS: COVID-19 VACC, MRNA(PFIZER)/PF 30 MCG/0.3 ML SYRINGE IM (07:22)
[2020-06-16] MEDS: COVID-19 VACC, MRNA(PFIZER)/PF 30 MCG/0.3 ML SYRINGE IM (07:13)
== END 2020-05-26 23:59 ==
LOC: IMMUN 14:47
PROVIDERS: PCP Internal Medicine; Visit Provider Family Medicine
DX: Z23 Encounter for immunization (principal)
CPT/HCPCS: 0001A; 0002A

== ENCOUNTER → 2020-06-27 13:25 | Outpatient (CLI) | payer MEDICARE, OTHER, SELFPAY ==
[2020-06-27 08:09] LABS: Absolute Lymphocyte Count 0.97 X10^3/uL (0.83-4.51); Absolute Neutrophil Count 2.7 X10^3/uL (2.0-7.7); Basophil# 0.05 X10^3/uL; Basophil% 1.1 % (0-1); Eosinophil# 0.14 X10^3/uL; Eosinophils% 3.2 % (0-5); Hematocrit 40.2 % (40-54); Hemoglobin 13.1 g/dL (13.0-16.5); Lymphocyte # 0.97 X10^3/ul (4.0); Lymphocyte % 22.2 % (19-41); Mean Corp Hgb Conc 32.6 g/dL (32-36); Mean Corpuscular Hgb 29.5 pg (27.0-32.0); Mean Corpuscular Volume 90.5 fL (80-94); Mean Platelet Vol. 8.9 fl (6.2-12.0); Monocyte# 0.51 X10^3/uL; Monocyte% 11.7 % (0-10); NRBC Flagged by Analyzer 0 % (0-5); Neutrophil # 2.65 X10^3/uL (2.7-7.7); Neutrophil % 60.9 % (47-70); Platelet Count 255 K/mm3 (150-450); RBC Distribution Width CV 13.9 % (11.6-14.6); RBC Distribution Width SD 44.7 fl (35.1-43.9); Red Blood Count 4.44 M/mm3 (4.6-6.2); White Blood Count 4.4 K/mm3 (4.4-11.0)
[2020-06-27 08:27] LABS: Hemoglobin A1c 8.3 % (3.8-5.6)
[2020-06-27 08:31] LABS: International Normalized Ratio 1.3; Prothrombin Time (Protime)PT. 15.5 SECONDS (11.7-14.9)
[2020-06-27 08:32] LABS: Partial Thromboplast Time 27.5 Seconds (24.1-36.2)
[2020-06-27 08:42] LABS: Anion Gap 8 (5-15); BUN 19 mg/dL (7-18); BUN/Creat Ratio 12.8 RATIO (10-20); Calcium,Total 9.3 mg/dL (8.5-10.1); Chloride 97 mmol/L (98-107); Creatinine, Serum 1.48 mg/dL (0.70-1.30); EST Glomerular Filtration Rate 50 mL/min (>60); Est Glom Filt Rate - Afr Amer 60 mL/min (>60); Glucose 134 mg/dL (74-106); Potassium 4.5 mmol/L (3.5-5.1); Sodium Level 133 mmol/L (136-145)
== END ==
PROVIDERS: PCP Internal Medicine; Referring Provider Podiatrist Foot & Ankle Surgery; Visit Provider Podiatrist Foot & Ankle Surgery
DX: Z01.812 Encounter for preprocedural laboratory examination (principal); Z20.828 Contact with and (suspected) exposure to other viral communicable diseases; R52 Pain, unspecified; Z01.818 Encounter for other preprocedural examination
CPT/HCPCS: 36415; 80048; 83036; 85025; 85610; 85730; 87426; C9803

== ENCOUNTER → 2020-07-21 06:43 | Outpatient (CLI) | payer MEDICARE, OTHER, SELFPAY ==
[2020-07-21 07:15] LABS: Color, Urine Yellow (Yellow); Glucose, Dipstick Normal (Normal); Ketone-Dipstick Negative (Negative); Leukocyte Esterase-Dipstick Negative /ul (Negative); Nitrite-Dipstick Negative (Negative); Occult Blood-Urine Negative /ul (Negative); Protein-Dipstick Negative (Negative); Specific Gravity, Urine 1.015 (1.002-1.030); Urine Bilirubin Dipstick Negative (Negative); Urine Clarity Clear (Clear); Urine Urobilinogen Normal (Normal)
[2020-07-21 07:28] LABS: Protein:Creat Ratio 111 mg/g CRE (0-200)
[2020-07-21 07:36] LABS: Anion Gap 6 (5-15); BUN 19 mg/dL (7-18); BUN/Creat Ratio 15.6 RATIO (10-20); Chloride 100 mmol/L (98-107); Creatinine, Serum 1.22 mg/dL (0.70-1.30); EST Glomerular Filtration Rate 62 mL/min (>60); Est Glom Filt Rate - Afr Amer 76 mL/min (>60); Glucose 236 mg/dL (74-106); Phosphorus 4.1 mg/dL (2.5-4.9); Potassium 3.7 mmol/L (3.5-5.1); Sodium Level 136 mmol/L (136-145)
[2020-07-21 08:10] LABS: PTHIN 158.4 pg/mL (18.4-80.1)
[2020-07-21 08:12] LABS: Vitamin D,25 Hydroxy 23.3 ng/mL
== END ==
PROVIDERS: PCP Internal Medicine; Referring Provider Internal Medicine; Visit Provider Internal Medicine
DX: N17.9 Acute kidney failure, unspecified (principal); I10 Essential (primary) hypertension; E55.9 Vitamin D deficiency, unspecified
CPT/HCPCS: 36415; 80048; 81002; 82306; 82570; 83970; 84100; 84156

== ENCOUNTER → 2020-08-04 09:29 | Outpatient (CLI) | payer MEDICARE, OTHER, SELFPAY ==
--- NOTE | 2020-08-04 09:38 | PCM.CR.ITP ---
Diagnosis - General Information Admitting Diagnosis: PCI w/coronary stenting, PTCA Personal Learning Style:: Audio/Visual, Written Barriers to Learning: Vision Impairment Stage of change r/t lifestyle modifications:: Action Gave educational material for:: Treating Heart Disease, Emotions & Heart Disease, Stress Management & Relaxation, Sleep Disorders & Heart Disease, How The Heart Works, What it means to have Heart Disease, How Coronary Artery Disease is Diagnosed, Heart Procedures, What Heart Medications Do, Risk Factors & Modifications, Living an Active Life, Nutrition - Education/Goals Individual Counseling: Initial Assessment: Abnormal Cholesterol Levels, High Blood Pressure, Overweight/Obesity, Diabetes, A. Fasting Blood Sugar >100 - 236, C. High Triglycerides >150 - 204, Hypertension, Low HDL <40/Males or <50/Females - 36, Sedentary Lifestyle Cardiac Rehabilitation Goals: 1. Maintain the individual as the primary focus of care. 2. To improve the patient's quality of life. 3. Identification of cardiac risk factors and provide cardiac risk factor management. 4. Enhance the psychosocial status of the patient. 5. Reconditioning enough to allow the patient to resume customary activities. 6. Control symptoms of cardiac disease Personal Goals: Initial Assessment: Improve energy level, Get back to work, or to resume activities faster, Improve knowledge of cardiac disease, Improve muscle strength and endurance, Improve diet and eating habits (eat healthier), Control risk factors (learn risk factor modification) Scale for measuring improvement of personal goals: Enter appropriate number in Comments. 2 = Unchanged. 3 = Slightly Better. 4 = Moderate Improvement. 5 = Met my Goal - Diagnosis & Disease Process Outcomes/Goals: Pt IDs own risk factors & lifestyle modifications by Session 10, Verbalizes symptoms of angina & response by session 3., Pt independently manages Plan/Interventions: Assist Pt to ID & engage in lifestyle modification to reduce CVD risk, Instruct on individual risk factors, Review symptoms of angina & emergency actions, Review secondary diagnosis & identify educational needs. - Safety Referral to Physical Therapy: No Referral to [facility] Case Management: No Fall Risk Assessed:: Yes Assistive Devices:: Cane Exercise - Initial Assessment - Visit Date of Eval: 08/04/20 Session #:: 0 - pre-cardiac rehab Mets: Pre-: >5 METS for 30 minutes by discharge - Physician Prescribed Exercise Modalities: Treadmill - Questionable due to ambulating with cane., Airdyne, NuStep, SciFit Frequency: 3x/week for 12 weeks [36 sessions] Intensity: 60-80% of age predicted maximum heart rate reserve Current METSs:: 3.0 Target Heart Rate:: 98-128 Resting Blood Pressure: 92/61 EKG Type: Atrial fibrillation w/rapid ventricular response - Outcomes & Goals Goals:: Verbalizes understanding of THR, RPE & goal METS by session 6, Documents in home exercise log/reports 30 min aerobic 5 day/wk by DC, Demonstrates accurate pulse taking by DC - Intervention & Plan Exercise Program Goals: Instruct on personal THR & RPE, Instruct on MET level & personal MET goal, Show patient to take own pulse /validate performance until accurate, Instruct on home exercise - Physical Activity Home Exercise Physical Activity - Home Exercise: Safe Exercise, Warm-up, Self-monitoring, Cool-Down, Home Exercise > 30 min Daily, Sitting Time <3 hours/daily - Outcomes & Goals Outcomes/Goals: Demonstrates correct Warm-up/exercise Cool-Down (S3) if = 2.5 METs, Verbalizes symptoms of exercise intolerance by Session 3 (S3), Demonstrate safe equipment use (S3) & follows exercise prescrition (6) - Intervention & Plan Plan/Intervention: Instruct warm-up & cool-down if exercising at > 2 METs, Instruct on symptoms of exercise intolerance & actions to take, Instruct & monitor on saf, Assess intial functional capacity & safety risk Nutrition - Initial Assessment - Program Goals Nutrition Program Goals: LDL <100 optimal. 100 - 129 Near optimal. 130 - 159 Borderline High. 160 - 189 High. Total Cholesterol <200 desirable. 200 - 239 Borderline High. >/= 240 High. HDL < 40 Low >/=60 High. Triglycerides <150 desirable. <199 optimal. VlDL 5 - 40. HgbA1C <7%. BMI <25 Patient has diagnosis of Hyperlipidemia (ICD E78)?: Yes - Visit Date of Assessment:: 08/04/20 Session #:: 0 - pre-cardiac rehab - Cholesterol/Lipids Triglycerides (mg/dL): 204 - 08/05/2013 Total Cholesterol (mg/dL): 248 LDL Cholesterol (mg/dL): 171 HDL Cholesterol (mg/dL): 36 Determine presence & major risk factors that modify LDL goal: Hypertension or hypertensive medication, Low HDL cholesterol <40 mg/dL*, Family history of premature CHD in Male < 55 years: female <65 yearsFa, Age men > 45 years; women >/= 55 years Outcomes/Goals: Pt IDs own risk factors & lifestyle modifications by Session 10, Verbalizes symptoms of angina & response by session 3., Pt independently manages Intervention/Plan: Instruct on personal lipid levels & lipid goals/NCEP guidelines, Instruct on cholesterol Referral to dietitian:: Yes - Diabetes (Other Core Measures) Diabetes Type: Diagnosis Type II ICD-10 E11 Fasting blood glucose:: 236 Hgb A1C (4.2 - 6.3): 8.3 Insulin dependent injection/pump?: Yes Non-Insulin Dependent?: Yes Do you monitor your blood sugar at home?: Yes Referral to Diabetic Clinic:: Yes Outcomes/Goals:: Able to state symptoms of, Able to state, Able to state Intervention/Plan:: Instruct on, Refer to, Instruct on - Weight Mgt (Other Care) Not Applicable: No Height: 5 ft 7 in Weight:: 297 lb BMI: 46.5 Diagnosis Overweight/Obesity BMI> 30% ICD-10 E66: Yes Diagnosis High BMI/Morbid Obesity BMI> 35% ICD-10 Z68: Yes Outcomes/Goals: Pt sets, maintains & shows weight loss goal & trend during rehab Intervention/Plan: Instruct on ideal BMI & set weight loss goal w/patient, Assist pt to ID & incorporate diet changes for weight loss by S9, Refer to Structured Weight Loss program as appropriate, Encourage goal of using 250-300dcal per session for weight loss - Healthy Eating Habits Will attend diet classes:: Yes Outcomes/Goals:: Consume diet rich in vegs,fruits,whole grain/high fiber,fish,lean meat, Limit sat/trans fats,cholesterol & added salts & sugars Intervention/Plan:: Assess current eating habits - Education Gave educational materials for:: Signs & symptoms of hypoglycemia, Signs & symptoms of hyperglycemia, Relate diabetes to coronary artery disease, Healthy eating Nutrition - 30-Day Assessment Nutrition - 60-Day Assessment Nutrition - 90-Day Assessment Nutrition - Final Assessment Medical - Initial Assessment - Visit Date of Eval: 08/04/20 Session #:: 0 - pre-cardiac rehab - Medication Compliance Preventative Medication(s):: Aspirin, Clopidogrel/P2Y12 inhibit, Statin/lipid, Beta jones H/O mental health issues: depression, anxiety, or addiction?: No Doesn?t believe in the benefits of treatment?: No Believes medications are unnecessary or harmful?: No Has a concern about medication side effects?: No Expresses concern over the cost of medications?: No Outcomes/Goals: Verbalizes medications,desired effect & common side effects @ DC, Pt self-reports following medication regimen, Keeps card in wallet w/medications listed by DC Interventions/plans: Instruct on medication effects & side effects, Review medication list w/patient every two weeks, Instruct importance of taking meds as ordered & assist problem solving - Tobacco Use Tobacco Use: Non-smoker - Hypertension Hypertension Diagnosis:: Hypertension ICD-10 I10 Resting Blood Pressure:: 92/61 [place] [employer] Hypertension Guidelines: [place] [employer] Hypertension Guidelines. Normal BP Less than 120/80. Elevated BP 120/80. Hypertension Stage 1: BP 130-139/80-89. Hypertesnion Stage 2: BP 140 or higher/90 or higher. Hypertension Crisis: BP higher than 180/120 Outcomes/Goals: Able to verbalize/achieve optimal blood pressure <130/80, Incorporates diet changes & exercise for blood pressure control by DC Interventions/plan: Instruct on optimal blood pressure, hypertension & medications, Instruct on effects of sodium, alcohol, stress, exercise &hypertension - Tobacco Cessation Referral Smoking Cessation Referral:: No Individual Education/Counseling:: No Education Schedule Given:: Yes Medical- 30-Day Assessment Medical- 60-Day Assessment Medical- 90-Day Assessment Medical - Final Assessment Psychosocial - Initial Assess - VIsit Date of Eval: 08/04/20 Session #:: 0 - pre-cardiac rehab Not Applicable: Yes History of previous Mental disease:: No - Psychosocial Test Tool Used:: [employer] Expan QOL Cardiac, PHQ-9 Questionnaire phq-9 Severity: Severity. 1-4 Minimal Depression. 5-9 Mild Depression. 10-14 Moderate Depression. 15-19 Moderately Sever Depression. 20-27 Severe Depression. Rule: - Referral to Behavioral Health PS - Interventions: Yes Referral to Physician if PHQ-9 if score is 5-9: - Reference to PCP PHQ-9 score , Yes Attend Stress Management Classes, No Referral to Behavioral Health if PHQ-9 score >9: - Outcomes/Goals: See list Psychosocial Outcomes/Goals:: ID's personal stressors & 2 strategies to manage stress by discharge - Intervention/Plan: See List Interventions/Plan:: Assess stressors,coping strategies & signs of derpression on admission, Instruct/assist pt to develop coping & personal stress Mgt strategies, Instruct patient to recognize signs & symptoms of depression, Instruct patient to recog Psychosocial - 30-Day Assess Psychosocial - 60-Day Assess Psychosocial - 90-Day Assess Psychosocial - Final Assessmen Patient Health Questionnaire Initial Assessment 1. Little interest or pleasure in doing things: Not at all 2. Feeling down, depressed, or hopeless: Not at all 3. Trouble falling or staying asleep, or sleeping too much: Not at all 4. Feeling tired or having little energy: Nearly every day 5. Poor appetite or overeating: Not at all 6. Feeling bad about yourself -- or that you are a failure or have let yourself or your family down: Not at all 7. Trouble concentrating on things, such as reading the newspaper or watching television: Not at all 8. Moving or speaking so slowly that other people could have noticed. Or the opposite - being so fidgety or restless that you have been moving around a lot more than usual: Nearly every day 9. Thoughts that you would be better off , or of hurting yourself in some way: Not at all How difficult have these problems made it for you to do your work, take care of things at home, or get along with other people?: Somewhat difficult Total Score: 6 TED-Q SV Test - Statements CAD is a disease of the arteries in the heart: False Examples of risk factors for heart disease: True Angina is chest pain or discomfort: True The benefits of resistance training include: True Eating more meat and dairy products: False Anti-platelet medications such as aspirin are important: True The only effective way to manage stress: False An exercise warm-up slowly increases heart rate: True Prepared, processed foods usually have high sodium: True Depression is common after a heart attack: True The statin medications lower cholesterol: True To control blood pressure, lower the amount of sodium: True If someone gets chest discomfort during walking: False Transfats are partially hydrogenated vegetable oils: True Sleep apnea that is not treated increases the risk: False To control cholesterol, one should become a vegetarian: False Someone knows if he/she is exercising at the right level: True Diabetes cannot be prevented with exercise & health eating: False Stress is a large risk for heart attack: True A diet that can help lower blood pressure is rich in: True - Total Score Total Correct Responses: 20 Self-Efficacy Initial Assessment We would like to know how confident you are in doing certain activities. Please select your confidence level for:: Select your confidence level for the following using the scale 1-10 where 1 is not at all confident and 10 is totally confident. Your score is the average of all 6 responses. Fatigue: How confident are you that you can keep the fatigue caused by your disease from interfering with the things you want to do? Select Number: 1 Physical Discomfort or Pain: How confident are you that you can keep the physical discomfort or pain of your disease from interfering with the things you want to do? Select Number: 1 Emotional Distress: How confident are you that you can keep the emotional distress caused by your disease from interfering with the things you want to do? Select Number: 9 Other Symptoms or Health Problems: How confident are you that you can keep other symptoms or health problems from interfering with the things you want to do? Select Number: 3 Different Tasks and Activities: How confident are you that you can do the different tasks and activities needed to manage your health condition so as to reduce your need to see a doctor? Select Number: 3 Medication: How confident are you that you can do things other than just taking medication to reduce how much your illness affects your everyday life? Select Number: 5 Total Score:: 3 Nutrition Survey - Nutrition Survey Initial Have you lost >10 lbs over the past 2 months without trying?: No Are you following a special diet at home for diabetes, low fat, or low salt?: Yes Are you interested in meeting with a dietitian for help understanding your diet?: Yes Do you eat less than 3 meals a day?: No Do you eat fatty meats (schulte, sausage, ribs, etc), fried foods, desserts, large amounts of salad dressings, margarine, butter, or cheese most days?: Yes Do you have food allergies? [Enter types in comment field]: No Do you eat in restaurants more than 3 times a week?: No Do you season food with salt, seasoning salt, or garlic salt?: No Do you used canned, boxed, frozen meals, or soups, seasoning packets?: Yes - DM Type II, Obesity w/ BMI 46.52 Total Score:: 4
--- NOTE | 2020-08-04 09:39 | CR.HP_ITS ---
CR - History & Physical - General Arrival date:: 08/04/20 Arrival time:: 09:39 Date of Referral:: 07/20/20 Date of CR Evaluation:: 08/04/20 Referring Physician: Dr. Gabriel Gupta Primary Diagnosis: PTCA PCI W/coronary stenting - History of Present Cardiac Event Onset Date: Enter Onset Date of cardiac illnesses in Comment field below PTCA or coronary stenting:: Yes - 07/01/20202007 Type of Symptoms:: very short of breath Interventions with present event:: heart cath then intervention PTCA and Coronary stenting @ [facility] Were there any complications?: none - Sleep Disorder Evaluation Hx of Sleep Apnea: Yes Do you snore loudly (louder than talking or can be heard through closed doors)?: Yes - Patient has diagnosis of JAMES w/home CPAP Do you often feel tired/ fatigued/ sleepy during daytime?: No Has anyone observed you stop breathing during sleep?: Yes History of Hypertension (for STOP score): Yes STOP Results: Positive - Medications Home Medications: Ambulatory Orders Medication Instructions Recorded ascorbic acid (vitamin C) 1,000 mg 1,000 mg PO DAILY tab 05/30/17 tablet aspirin 325 mg tablet 325 mg PO DAILY tab 05/30/17 nitroglycerin 0.4 mg sublingual 0.4 mg SUBLINGUAL Q5M PRN 05/30/17 tablet biotin 1 mg tablet 1 mg PO DAILY 05/25/19 insulin glargine 100 unit/mL (3 56 unit SC QHS ml 05/25/19 mL) subcutaneous pen omega-3 fatty acids 1,000 mg 3,000 mg PO BID cap 05/25/19 capsule doxazosin 1 mg PO QHS 09/15/19 metoprolol tartrate 50 mg PO BID 09/15/19 multivitamin with minerals 1 tab PO BID 09/15/19 acetaminophen 500 mg PO Q4H PRN tab 09/19/19 glimepiride 4 mg tablet 4 mg PO BID tab 11/25/19 jyzypkvbw-usicsiljc-fiwspdzt-scop 1 tab PO TID PRN 11/25/19 16.2 mg-0.1037 mg-0.0194 mg tablet clopidogrel 75 mg tablet 75 mg PO DAILY #90 tab 12/29/19 furosemide 40 mg tablet 40 mg PO BID #180 tab 01/15/20 sulfamethoxazole-trimethoprim 2 tab PO BID #28 tab 05/25/20 amlodipine 5 mg PO DAILY 06/24/20 cephalexin 500 mg PO Q6 06/24/20 cholecalciferol (vitamin D3) 2,000 unit PO DAILY 06/24/20 elderberry fruit and flower 1 each PO DAILY 06/24/20 cephalexin [Keflex] 500 mg PO Q8H 08/04/20 clopidogrel [Plavix] 75 mg PO DAILY 08/04/20 - Allergies Allergies/Adverse Reactions: Allergies propofol Allergy (Verified 06/24/20 08:12) Other i went crazy hydrocodone [From Vicodin] Adverse Reaction (Severe, Verified 06/24/20 08:12) Hives ramipril [From Altace] Adverse Reaction (Severe, Verified 06/24/20 08:12) Fast HR valsartan [From Diovan] Adverse Reaction (Severe, Verified 06/24/20 08:12) Fast HR Umpnzcb-Bsw-Wvp Reductase Inhibitor Adverse Reaction (Intermediate, Verified 06/24/20 08:12) Muscle aches Advanced Directives - Advanced Directives 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 Living Will: Yes Advance Directives Information Provided: No Advance Directives on File: Yes DNR Order?:: No - MOLST See MOLST form: No Past Medical History - Covid-19 Screening Fever: No Unexplained muscle aches: No Current respiratory symptoms: No Upper respiratory infections symptoms: Yes - GERD history Gastro-intestinal symptoms: Yes - GERD history Has tested positive for COVID-19 in last 30 days: No Date of testin06/16/20 - PFIZER two step vaccination received Had contact w/person w/symptoms or Covid-19 (+) last 14 days: No Has High Risk Exposures ID'd by Health dept/Inf Control team: No 65 years or older:: Yes Lives in Assisted Living facility:: No Has a chronic lung disease or moderate to severe asthma:: No Has a serious heart condition:: Yes Immunocompromised:: No Severely obese (Body Mass Index of 40 or higher):: Yes Diabetic:: Yes Has chronic kidney disease undergoing dialysis:: Yes Has liver disease:: No - Past Medical Illness Medical History: Past Medical History (Last Updated 07/01/20 @ 15:59 by Brea Castañeda) Atherosclerotic heart disease of [place] coronary artery without angina pectoris I25.10 Chronic diastolic heart failure I50.32 Diabetes mellitus E11.9 Essential hypertension I10 GERD (gastroesophageal reflux disease) K21.9 Paroxysmal atrial fibrillation I48.0 Presence of stent in coronary artery Onset Date: ~07/01/20 Z95.5 PCI/stent to the LM and LAD per Dr. Gupta @[facility] 07/01/20; PTCA with DILIA to CFX 2nd marginal 06/30 Pure hypercholesterolemia E78.00 Type 2 diabetes mellitus E11.9 - Past Surgical History Surgical History: Past Surgical History (Last Reviewed 04/21/20 @ 08:19 by Judith Lo ACCOUNTING/FINANCE TUTOR, ACCOUNTING/FINANCE TUTOR-C) Coronary angioplasty status Z98.61 PTCA with DILIA to CFX 2nd marginal paroxysmal atrial fib 06/30 History of left heart catheterization (LHC) Onset Date: ~12/29/19 Z98.890 LEFT MAIN: proximal: eccentric: 50 % Stenosis; LEFT ANTERIOR DESCENDING ARTERY: Mild calcification PROX LAD: eccentric: 85 % Stenosis; CIRCUMFLEX ARTERY:PROX CIRC: Mild calcification, 25 % Stenosis, MID CIRC: Previously placed stent is patent, DISTAL CIRC: eccentric: 25 % Stenosis, OM 1: Proximal - Mild luminal irregularities; RIGHT CORONARY ARTERY: Severe calcification, OSTIAL RCA: is occluded, COLLATERAL FLOW: Collateral flow from Left to Right;RECOMMENDATIONS: Risk factor modification; Medical therapy; Staged for IVUS; Surgery consult for coronary revascularization per cath 12/29/19 History of tonsillectomy and adenoidectomy Z98.890 History of vasectomy Z98.52 Presence of coronary angioplasty implant and graft Onset Date: ~06/2007 Z95.5 PTCA with DILIA to CFX 2nd marginal 06/30 Surgical History: - - cardiac stent placement - Family History Summary Family History: Family History (Last Reviewed 04/21/20 @ 08:19 by Judith Lo ACCOUNTING/FINANCE TUTOR, ACCOUNTING/FINANCE TUTOR-C) Other Family history of CVA Family history of hyperlipidemia Family history of hypertension Social History - Smoking History Smoking Status: Never smoker Hx Tobacco Use: No Hx Smoking Exposure: No - Alcohol Use Alcohol Usage: No - Substance Abuse Hx Substance Use: No - Occupation Occupation (List type of work in comments):: Retired - Hobbies, Recreation, Social Activities Hobbies: Other - like eating, Hot Wheel legal collector. Social Environment - Status Marital Status: - Current Living Arrangements Living Environment:: Spouse - Children How many children do you have?: 2 - 2 Do any of your children live nearby?: Yes - [place] - Safety Do you feel safe in your surroundings?: Yes - Assistance Do you need any assistance at home?: helps wash lower part of body in showe r. Review of Systems - Review of Systems Hints: Right click = Denies ([place]). Left click = Reports ([place]) Review of Present Symptoms: Reports: Shortness of Breath with Exertion, Dizziness/Lightheadedness - some instability when walking, just not wuite stable on my feet so use either a cane or walker as needed., Heart Arrhythmia/Irregularities - atrial fibrillation with rapid ventricular response, Appetite - Normal, Appetite - Special Diet - Low Fat low sodium diet. Denies: Angina, Sleep - Normal, Sexual Changes - no change, just not important anymore - Pain Is Patient Pain Free?: Yes Pain Location: none, back, upper extremity, lower extremity - severe arthritis, when weather bad really flare-up hurt all over, legs are the worst. Risk Factor Assessment - Vital Signs Temperature: 97.5 F Respiratory Rate: 18 Pulse Ox: 96 Blood Pressure: 92/61 - Pulse Pulse Rate: 89 Pulse Rhythm: Regular - Hypertension Blood Pressure Sitting - Left Arm: 92/61 - Stress Stress: Long-standing - Blood Cholesterol/Lipids Total Cholesterol (mg/dL) Goal = less than 200 mg/dL: 248 HDL Cholesterol (mg/dL) Goal = less than 40 mg/dL: 36 LDL Cholesterol (mg/dL) Goal = less than 70 mg/dL: 171 Triglycerides (mg/dL) Goal = less than 150 mg/dL: 204 - Diabetes Diabetic History: Type II, Medication Dependent, Insulin Dependent Nutrition Referral for Diabetes: Yes - Obesity Height: 5 ft 7 in Weight:: 297 lb Weight in Pounds: 297.0 lbs Weight Source: Standing Scale Body Mass Index (BMI): 46.5 Nutritional Referral for Obesity: Yes - Physical Inactivity Physical Inactivity: None - Risk Stratification Risk Guidelines: Lowest Risk: Risk Factor for Hypertension - 92/61, Moderate Risk: Risk Factor for Dyslipidemia, Risk Factor for Diabetes - 236, 8.3, Risk Factor for Depression - 6 on PHQ-9 score, Highest Risk: Risk Factor for Obesity, Risk Factor for Sedentary Lifestyle - Family History Family History: Family History (Last Reviewed 04/21/20 @ 08:19 by Judith Lo ACCOUNTING/FINANCE TUTOR, ACCOUNTING/FINANCE TUTOR-C) Other Family history of CVA Family history of hyperlipidemia Family history of hypertension Motivation - Motivation to Participate On a scale of 1 to 10, how prepared are you to commit to attending program?: 6 - will give it a try What do you see as barriers to successfully being able to complete the program?: shortness of breath What do you see as the benefits of succesfully completing the program? In other words, what do you hope to get out of participating in the program?: minimize shortnes of breath, dizziness, stability Are there issues you are dealing with that will interfere with completing the program?: none Do you have a spouse or signficant other, family or friends who will help support you to complete the program?: yes
[2020-08-04 10:04] VITALS: BP 92/61; BMI 46.5
[2020-08-04 10:33] VITALS: BP 92/61; PULSE 89; RESP 18; TEMP 36.4; O2SAT 96; BMI 46.5
== END ==
PROVIDERS: PCP Internal Medicine; Referring Provider Internal Medicine Interventional Cardiology; Visit Provider Internal Medicine Interventional Cardiology
DX: Z95.5 Presence of coronary angioplasty implant and graft (principal)

== ENCOUNTER 2020-08-10 08:00 | Outpatient (RCR) | payer MEDICARE, OTHER, SELFPAY ==
[2020-08-04 10:04] VITALS: BMI 46.5
[2020-08-04 10:33] VITALS: BMI 46.5
== END 2020-08-22 23:59 ==
LOC: CR 08:00
PROVIDERS: PCP Internal Medicine; Referring Provider Internal Medicine Interventional Cardiology; Visit Provider Internal Medicine Interventional Cardiology
DX: Z95.5 Presence of coronary angioplasty implant and graft (principal)
CPT/HCPCS: 93798

== ENCOUNTER 2020-09-21 09:53 | Outpatient (RCR) | payer MEDICARE, OTHER, SELFPAY ==
[2020-08-04 10:04] VITALS: BMI 46.5
[2020-08-04 10:33] VITALS: BMI 46.5
--- NOTE | 2020-09-05 07:08 | PCM.CR.ITP ---
Diagnosis Exercise - 30-day Assessment - Visit Date of Eval: 09/05/20 Session #:: 2 Comments:: Patient has only attended 2 sessions of cardiac rehab. His last scheduled visit was on 08/10/2020. Patient required further toe amputations and has not been released by his surgeon to return to cardiac rehab. Nutrition - Initial Assessment Nutrition - 30-Day Assessment Nutrition - 60-Day Assessment Nutrition - 90-Day Assessment Nutrition - Final Assessment Medical - Initial Assessment Medical- 30-Day Assessment Medical- 60-Day Assessment Medical- 90-Day Assessment Medical - Final Assessment Psychosocial - Initial Assess Psychosocial - 30-Day Assess Psychosocial - 60-Day Assess Psychosocial - 90-Day Assess Psychosocial - Final Assessmen Nutrition Survey
== END 2020-09-21 23:59 ==
LOC: CR 09:53
PROVIDERS: PCP Internal Medicine; Referring Provider Internal Medicine Interventional Cardiology; Visit Provider Internal Medicine Interventional Cardiology
DX: Z95.5 Presence of coronary angioplasty implant and graft (principal)
CPT/HCPCS: 93798

== ENCOUNTER → 2020-10-12 07:16 | Outpatient (CLI) | payer MEDICARE, OTHER, SELFPAY ==
[2020-08-04 10:33] VITALS: BMI 46.5
[2020-10-03 07:29] VITALS: BMI 47.1
[2020-10-12 08:04] LABS: Color, Urine Yellow (Yellow); Glucose, Dipstick Normal (Normal); Ketone-Dipstick Negative (Negative); Leukocyte Esterase-Dipstick Negative /ul (Negative); Nitrite-Dipstick Negative (Negative); Occult Blood-Urine Negative /ul (Negative); Protein-Dipstick Negative (Negative); Urine Bilirubin Dipstick Negative (Negative); Urine Clarity Clear (Clear); Urine Urobilinogen Normal (Normal)
[2020-10-12 08:12] LABS: Protein, Urine (Random) 9.1 mg/dL (<11.9); Protein:Creat Ratio 132 mg/g CRE (0-200)
[2020-10-12 08:20] LABS: Anion Gap 8 (5-15); BUN 19 mg/dL (7-18); BUN/Creat Ratio 17.6 RATIO (10-20); Calcium,Total 8.7 mg/dL (8.5-10.1); Chloride 99 mmol/L (98-107); Creatinine, Serum 1.08 mg/dL (0.70-1.30); EST Glomerular Filtration Rate 72 mL/min (>60); Est Glom Filt Rate - Afr Amer 87 mL/min (>60); Glucose 169 mg/dL (74-106); Phosphorus 3.6 mg/dL (2.5-4.9); Potassium 3.6 mmol/L (3.5-5.1); Sodium Level 138 mmol/L (136-145)
[2020-10-12 08:29] LABS: PTHIN 130.3 pg/mL (18.4-80.1)
== END ==
PROVIDERS: PCP Internal Medicine; Referring Provider Internal Medicine; Visit Provider Internal Medicine
DX: E55.9 Vitamin D deficiency, unspecified (principal); N17.9 Acute kidney failure, unspecified; I10 Essential (primary) hypertension
CPT/HCPCS: 36415; 80048; 81002; 82306; 82570; 83970; 84100; 84156

== ENCOUNTER 2020-10-12 09:15 | Outpatient (RCR) | payer MEDICARE, OTHER, SELFPAY ==
[2020-08-04 10:04] VITALS: BMI 46.5
[2020-08-04 10:33] VITALS: BMI 46.5
== END 2020-10-22 23:59 ==
LOC: DC 09:15
PROVIDERS: PCP Internal Medicine
DX: E11.9 Type 2 diabetes mellitus without complications (principal); K21.9 Gastro-esophageal reflux disease without esophagitis; E66.01 Morbid (severe) obesity due to excess calories; E78.00 Pure hypercholesterolemia, unspecified; N17.9 Acute kidney failure, unspecified; I11.0 Hypertensive heart disease with heart failure; I50.32 Chronic diastolic (congestive) heart failure
CPT/HCPCS: 97802; G0108

== ENCOUNTER 2020-10-21 08:00 | Outpatient (RCR) | payer MEDICARE, OTHER, SELFPAY ==
[2020-08-04 10:04] VITALS: BMI 46.5
[2020-08-04 10:33] VITALS: BMI 46.5
--- NOTE | 2020-10-03 07:19 | CR.ITP_ITS ---
Diagnosis Exercise - 30-day Assessment - Visit Date of Eval: 10/03/20 Session #:: 6 Comments:: Patient started CR on 08/08/2020 then required amputation of toes and was on medical hold until 09/21/2020. He has resumed CR at this time. - Physician Prescribed Exercise Modalities: NuStep, SciFit Frequency: 3x/week for 12 weeks [36 sessions] Intensity: 60-80% of age predicted maximum heart rate reserve Current METSs:: 2.0 Target Heart Rate:: 98-128 Current RPE:: 13 Maximum Excercise HR:: 105 Resting Blood Pressure: 128/80 Maximum Exercise Blood Pressure: 140/72 EKG Type: Persistent atrial fibrillation with occasional rapid ventricular response. - Outcomes & Goals Goals:: Verbalizes understanding of THR, RPE & goal METS by session 6, Documents in home exercise log/reports 30 min aerobic 5 day/wk by DC, Demonstrates accurate pulse taking by DC - Intervention & Plan Exercise Program Goals: Instruct on personal THR & RPE, Instruct on MET level & personal MET goal, Show patient to take own pulse /validate performance until accurate, Instruct on home exercise - 30-day Reassessments 30 day Reassessments:: Progressing - Physical Activity Home Exercise Physical Activity - Home Exercise: Safe Exercise, Warm-up, Self-monitoring, Cool-Down, Home Exercise > 30 min Daily, Sitting Time <3 hours/daily - Outcomes & Goals Outcomes/Goals: Demonstrates correct Warm-up/exercise Cool-Down (S3) if = 2.5 METs, Verbalizes symptoms of exercise intolerance by Session 3 (S3), Demonstrate safe equipment use (S3) & follows exercise prescrition (6) - Intervention & Plan Plan/Intervention: Instruct warm-up & cool-down if exercising at > 2 METs, Instruct on symptoms of exercise intolerance & actions to take, Instruct & monitor on saf, Assess intial functional capacity & safety risk - 30-day Reassessments 30 day Reassessments:: Progressing Nutrition - Initial Assessment Nutrition - 30-Day Assessment - Program Goals Nutrition Program Goals: LDL <100 optimal. 100 - 129 Near optimal. 130 - 159 Borderline High. 160 - 189 High. Total Cholesterol <200 desirable. 200 - 239 Borderline High. >/= 240 High. HDL < 40 Low >/=60 High. Triglycerides <150 desirable. <199 optimal. VlDL 5 - 40. HgbA1C <7%. BMI <25 Patient has diagnosis of Hyperlipidemia (ICD E78)?: Yes - Visit Date of Assessment:: 10/03/20 Session #:: 6 - Cholesterol/Lipids Triglycerides (mg/dL): 204 Total Cholesterol (mg/dL): 248 LDL Cholesterol (mg/dL): 171 HDL Cholesterol (mg/dL): 36 Determine presence & major risk factors that modify LDL goal: Hypertension or hypertensive medication, Low HDL cholesterol <40 mg/dL*, Family history of premature CHD in Male < 55 years: female <65 yearsFa, Age men > 45 years; women >/= 55 years Outcomes/Goals: Pt IDs own risk factors & lifestyle modifications by Session 10, Verbalizes symptoms of angina & response by session 3., Pt independently manages Intervention/Plan: Instruct on personal lipid levels & lipid goals/NCEP guidelines, Instruct on cholesterol Referral to dietitian:: Yes 30-day Reassessments:: Progressing - Diabetes (Other Core Measures) Diabetes Type: Diagnosis Type II ICD-10 E11 Fasting blood glucose:: 236 Hgb A1C (4.2 -6.3): 8.3 Insulin dependent injection/pump?: Yes Non-Insulin Dependent?: Yes Do you monitor your blood sugar at home?: Yes Referral to Diabetic Clinic:: Yes Outcomes/Goals:: Able to state symptoms of, Able to state, Able to state Intervention/Plan:: Instruct on, Refer to, Instruct on 30-day Reassessments:: Progressing - Weight Mgt (Other Care) Not Applicable: No Height: 5 ft 7 in Weight:: 301 lb BMI: 47.1 Diagnosis Overweight/Obesity BMI> 30% ICD-10 E66: Yes Diagnosis High BMI/Morbid Obesity BMI> 35% ICD-10 Z68: Yes Outcomes/Goals: Pt sets, maintains & shows weight loss goal & trend during rehab Intervention/Plan: Instruct on ideal BMI & set weight loss goal w/patient, Assist pt to ID & incorporate diet changes for weight loss by S9, Refer to Structured Weight Loss program as appropriate, Encourage goal of using 250- 300dcal per session for weight loss 30 day Reassessments:: Progressing - Healthy Eating Habits Will attend diet classes:: Yes Outcomes/Goals:: Consume diet rich in vegs,fruits,whole grain/high fiber,fish,lean meat, Limit sat/trans fats,cholesterol & added salts & sugars Intervention/Plan:: Assess current eating habits 30-day Reassessments:: Progressing - Education Gave educational materials for:: Signs & symptoms of hypoglycemia, Signs & sym ptoms of hyperglycemia, Relate diabetes to coronary artery disease, Healthy eating Nutrition - 60-Day Assessment Nutrition - 90-Day Assessment Nutrition - Final Assessment Medical - Initial Assessment Medical- 30-Day Assessment - Visit Date of Eval: 10/03/20 Session #:: 6 - Medication Compliance Preventative Medication(s):: Aspirin, Clopidogrel/P2Y12 inhibit, Statin/lipid, Beta jones H/O mental health issues: depression, anxiety, or addiction?: No Doesn?t believe in the benefits of treatment?: No Believes medications are unnecessary or harmful?: No Has a concern about medication side effects?: No Expresses concern over the cost of medications?: No Outcomes/Goals: Verbalizes medications,desired effect & common side effects @ DC, Pt self-reports following medication regimen, Keeps card in wallet w/med ications listed by DC Interventions/plans: Instruct on medication effects & side effects, Review medication list w/patient every two weeks, Instruct importance of taking meds as ordered & assist problem solving 30-day Reassessments:: Progressing - Tobacco Use Tobacco Use: Chew Do you use smokeless tobacco?: Yes Outcomes/Goals: Smoking cessation achieved or maintained by discharge, Identify aids/strategies for achieving smoking cessation by session 6 Interventions/plan: Instruct on effects of smoking & provide smoking cessation resource, Assist pt to set quit date & provide encouragement, Assist pt to develop strategies to achieve/maintain quit date, Assist pt w/nicotine replacement & medication for cessation success 30-day Reassessments:: Progressing - Hypertension Hypertension Diagnosis:: Hypertension ICD-10 I10 Resting Blood Pressure:: 128/80 [place] [employer] Hypertension Guidelines: [place] [employer] Hypertension Guidelines. Normal BP Less than 120/80 Peak Exercise Blood Pressure:: 140/72 Outcomes/Goals: Able to verbalize/achieve optimal blood pressure <130/80, Incorporates diet changes & exercise for blood pressure control by DC Interventions/plan: Instruct on optimal blood pressure, hypertension & medic ations, Instruct on effects of sodium, alcohol, stress, exercise &hypertension 30 day Reassessments:: Progressing - Tobacco Cessation Referral Smoking Cessation Referral:: Yes Individual Education/Counseling:: No Education Schedule Given:: Yes Medical- 60-Day Assessment Medical- 90-Day Assessment Medical - Final Assessment Psychosocial - Initial Assess Psychosocial - 30-Day Assess - VIsit Date of Eval: 10/03/20 Session #:: 6 Not Applicable: Yes History of previous Mental disease:: No - Psychosocial Test Tool Used:: PHQ-9 Questionnaire phq-9 Severity: Severity. 1-4 Minimal Depression. 5-9 Mild Depression. 10-14 Moderate Depression. 15-19 Moderately Sever Depression. 20-27 Severe Depression. Rule: - Referral to Behavioral Health PS - Interventions: Yes Attend Stress Management Classes, No Referral to Behavioral Health if PHQ-9 score >9:, No Referral to [facility], No Referral to Physician if PHQ-9 if score is 5-9: - Outcomes/Goals: See list Psychosocial Outcomes/Goals:: ID's personal stressors & 2 strategies to manage stress by discharge - Intervention/Plan: See List Interventions/Plan:: Assess stressors,coping strategies & signs of derpression on admission, Instruct/assist pt to develop coping & personal stress Mgt strategies, Instruct patient to recognize signs & symptoms of depression, Instruct patient to recog - 30-day Reassessments: 30 day Reassessments:: Progressing Psychosocial - 60-Day Assess Psychosocial - 90-Day Assess Psychosocial - Final Assessmen Patient Health Questionnaire 30-Day Re-eval Assessment 1. Little interest or pleasure in doing things: Not at all 2. Feeling down, depressed, or hopeless: Not at all 3. Trouble falling or staying asleep, or sleeping too much: Not at all 4. Feeling tired or having little energy: Nearly every day 5. Poor appetite or overeating: Not at all 6. Feeling bad about yourself -- or that you are a failure or have let yourself or your family down: Not at all 7. Trouble concentrating on things, such as reading the newspaper or watching television: Not at all 8. Moving or speaking so slowly that other people could have noticed. Or the opposite - being so fidgety or restless that you have been moving around a lot more than usual: Nearly every day 9. Thoughts that you would be better off , or of hurting yourself in some way: Not at all How difficult have these problems made it for you to do your work, take care of things at home, or get along with other people?: Somewhat difficult Total Score: 6 Self-Efficacy 30-Day Re-eval Assessment We would like to know how confident you are in doing certain activities. Please select your confidence level for:: Select your confidence level for the following using the scale 1-10 where 1 is not at all confident and 10 is totally confident. Your score is the average of all 6 responses. Fatigue: How confident are you that you can keep the fatigue caused by your disease from interfering with the things you want to do? Select Number: 1 Physical Discomfort or Pain: How confident are you that you can keep the physical discomfort or pain of your disease from interfering with the things you want to do? Select Number: 1 Emotional Distress: How confident are you that you can keep the emotional distre ss caused by your disease from interfering with the things you want to do? Select Number: 9 Other Symptoms or Health Problems: How confident are you that you can keep other symptoms or health problems from interfering with the things you want to do? Select Number: 3 Different Tasks and Activities: How confident are you that you can do the different tasks and activities needed to manage your health condition so as to reduce your need to see a doctor? Select Number: 4 Medication: How confident are you that you can do things other than just taking medication to reduce how much your illness affects your everyday life? Select Number: 5 Total Score:: 3 Nutrition Survey
[2020-10-03 07:29] VITALS: BP 128/80; BP 140/72; BMI 47.1
== END 2020-10-22 23:59 ==
LOC: CR 08:00
PROVIDERS: PCP Internal Medicine; Referring Provider Internal Medicine Interventional Cardiology; Visit Provider Internal Medicine Interventional Cardiology
DX: Z95.5 Presence of coronary angioplasty implant and graft (principal)
CPT/HCPCS: 93798

== ENCOUNTER 2020-11-16 10:23 | Outpatient (RCR) | payer MEDICARE, OTHER, SELFPAY ==
[2020-08-04 10:33] VITALS: BMI 46.5
[2020-10-03 07:29] VITALS: BMI 47.1
[2020-11-02 09:24] VITALS: BMI 47.1
== END 2020-11-22 23:59 ==
LOC: DC 10:23
PROVIDERS: PCP Internal Medicine
DX: E11.9 Type 2 diabetes mellitus without complications (principal); K21.9 Gastro-esophageal reflux disease without esophagitis; E66.01 Morbid (severe) obesity due to excess calories; E78.00 Pure hypercholesterolemia, unspecified; N17.9 Acute kidney failure, unspecified; I11.0 Hypertensive heart disease with heart failure; I50.32 Chronic diastolic (congestive) heart failure
CPT/HCPCS: 97803

== ENCOUNTER 2020-11-21 08:00 | Outpatient (RCR) | payer MEDICARE, OTHER, SELFPAY ==
[2020-08-04 10:33] VITALS: BMI 46.5
[2020-10-03 07:29] VITALS: BMI 47.1
[2020-10-23 00:30] VITALS: BP 128/80; BP 140/72
--- NOTE | 2020-11-02 09:12 | PCM.CR.ITP ---
Diagnosis - General Information Admitting Diagnosis: PCI with coronary stent Exercise - 90-day Assessment - Visit Date of Eval: 11/02/20 Session #:: 18 - Physician Prescribed Exercise Modalities: SciFit Frequency: 3x/week for 12 weeks [36 sessions] Intensity: 60-80% of age predicted maximum heart rate reserve Current METSs:: 2.5 Target Heart Rate:: 98-128 Current RPE:: 14 Maximum Excercise HR:: 103 Resting Blood Pressure: 128/82 Maximum Exercise Blood Pressure: 140/78 EKG Type: A-fib with rare PVC - Outcomes & Goals Goals:: Verbalizes understanding of THR, RPE & goal METS by session 6, Documents in home exercise log/reports 30 min aerobic 5 day/wk by DC, Demonstrates accurate pulse taking by DC, Other additional outcome/goals: see below - Intervention & Plan Exercise Program Goals: Instruct on personal THR & RPE, Instruct on MET level & personal MET goal, Show patient to take own pulse /validate performance until accurate, Instruct on home exercise, Other additional plan/int - 30-day Reassessments 30 day Reassessments:: Progressing - Physical Activity Home Exercise Physical Activity - Home Exercise: Safe Exercise, Warm-up, Self-monitoring, Cool-Down, Home Exercise > 30 min Daily, Sitting Time <3 hours/daily - Outcomes & Goals Outcomes/Goals: Demonstrates correct Warm-up/exercise Cool-Down (S3) if = 2.5 METs, Verbalizes symptoms of exercise intolerance by Session 3 (S3), Demonstrate safe equipment use (S3) & follows exercise prescrition (6), Other: See below - Intervention & Plan Plan/Intervention: Instruct warm-up & cool-down if exercising at > 2 METs, Instruct on symptoms of exercise intolerance & actions to take, Instruct & monitor on saf, Assess intial functional capacity & safety risk, Other See below Nutrition - Initial Assessment Nutrition - 30-Day Assessment Nutrition - 60-Day Assessment Nutrition - 90-Day Assessment - Program Goals Nutrition Program Goals: LDL <100 optimal. 100 - 129 Near optimal. 130 - 159 Borderline High. 160 - 189 High. Total Cholesterol <200 desirable. 200 - 239 Borderline High. >/= 240 High. HDL < 40 Low >/=60 High. Triglycerides <150 desirable. <199 optimal. VlDL 5 - 40. HgbA1C <7%. BMI <25 Patient has diagnosis of Hyperlipidemia (ICD E78)?: Yes - Visit Date of Assessment:: 11/02/20 Session #:: 18 - Cholesterol/Lipids Determine presence & major risk factors that modify LDL goal: Hypertension or hypertensive medication, Low HDL cholesterol <40 mg/dL*, Family history of premature CHD in Male < 55 years: female <65 yearsFa, Age men > 45 years; women >/= 55 years Outcomes/Goals: Pt IDs own risk factors & lifestyle modifications by Session 10, Verbalizes symptoms of angina & response by session 3., Pt independently manages, Other Additional Outcomes/Goals: Intervention/Plan: Advocate for lipid panel cholesterol medication if applicable, Instruct on personal lipid levels & lipid goals/NCEP guidelines, Instruct on cholesterol, Other additional plan/int Referral to dietitian:: Yes 30-day Reassessments:: Progressing - Diabetes (Other Core Measures) Diabetes Type: Diagnosis Type II ICD-10 E11 Fasting blood glucose:: 154 Insulin dependent injection/pump?: Yes Non-Insulin Dependent?: Yes Do you monitor your blood sugar at home?: Yes Referral to Diabetic Clinic:: Yes Outcomes/Goals:: Able to state symptoms of, Able to state, Able to state, Other additional Intervention/Plan:: Instruct on, Refer to, Instruct on, Other 30-day Reassessments:: Progressing - Weight Mgt (Other Care) Height: 5 ft 7 in Weight:: 136.531 kg BMI: 47.1 Diagnosis High BMI/Morbid Obesity BMI> 35% ICD-10 Z68: Yes Outcomes/Goals: Pt sets, maintains & shows weight loss goal & trend during rehab, Other additional outcomes/goals Intervention/Plan: Instruct on ideal BMI & set weight loss goal w/patient, Assist pt to ID & incorporate diet changes for weight loss by S9, Refer to Structured Weight Loss program as appropriate, Encourage goal of using 250-300dcal per session for weight loss, Other additional plan/interventions 30 day Reassessments:: Progressing - Healthy Eating Habits Will attend diet classes:: Yes 30-day Reassessments:: Progressing - Education Gave educational materials for:: Signs & symptoms of hypoglycemia, Signs & symptoms of hyperglycemia, Relate diabetes to coronary artery disease, Healthy eating Nutrition - Final Assessment Medical - Initial Assessment Medical- 30-Day Assessment Medical- 60-Day Assessment Medical- 90-Day Assessment - Visit Date of Eval: 11/02/20 Session #:: 18 - Medication Compliance Preventative Medication(s):: Clopidogrel/P2Y12 inhibit, Ticagrelor/P2Y12 inhibitor, Statin/lipid, Beta jones H/O mental health issues: depression, anxiety, or addiction?: No Doesn?t believe in the benefits of treatment?: No Believes medications are unnecessary or harmful?: No Has a concern about medication side effects?: No Expresses concern over the cost of medications?: No Outcomes/Goals: Verbalizes medications,desired effect & common side effects @ DC, Pt self-reports following medication regimen, Keeps card in wallet w/medications listed by DC, Other additional outcome/goals: Interventions/plans: Instruct on medication effects & side effects, Review medication list w/patient every two weeks, Instruct importance of taking meds as ordered & assist problem solving, Other additional 30-day Reassessments:: Progressing - Tobacco Use Tobacco Use: Chew Do you use smokeless tobacco?: Yes Outcomes/Goals: Smoking cessation achieved or maintained by discharge, Identify aids/strategies for achieving smoking cessation by session 6, Other additional outcome/goals Interventions/plan: Instruct on effects of smoking & provide smoking cessation resource, Assist pt to set quit date & provide encouragement, Assist pt to develop strategies to achieve/maintain quit date, Assist pt w/nicotine replacement & medication for cessation success, Other additional plan/interventions 30-day Reassessments:: Progressing - Hypertension Hypertension Diagnosis:: Hypertension ICD-10 I10 Resting Blood Pressure:: 128/82 [place] [employer] Hypertension Guidelines: [place] [employer] Hypertension Guidelines. Normal BP Less than 120/80. Elevated BP 120/80. Hypertension Stage 1: BP 130-139/80-89. Hypertesnion Stage 2: BP 140 or higher/90 or higher. Hypertension Crisis: BP higher than 180/120 Peak Exercise Blood Pressure:: 140/78 Outcomes/Goals: Able to verbalize/achieve optimal blood pressure <130/80, Incorporates diet changes & exercise for blood pressure control by DC, Other additional outcomes/goals Interventions/plan: Instruct on optimal blood pressure, hypertension & medications, Instruct on effects of sodium, alcohol, stress, exercise &hypertension, Other additional plan/interventions 30 day Reassessments:: Progressing - Tobacco Cessation Referral Smoking Cessation Referral:: Yes Individual Education/Counseling:: No Education Schedule Given:: Yes Medical - Final Assessment Psychosocial - Initial Assess Psychosocial - 30-Day Assess Psychosocial - 60-Day Assess Psychosocial - 90-Day Assess - VIsit Date of Eval: 11/02/20 Session #:: 18 Not Applicable: Yes History of previous Mental disease:: No - Outcomes/Goals: See list Psychosocial Outcomes/Goals:: ID's personal stressors & 2 strategies to manage stress by discharge, Other Additional outcome/goals: - Intervention/Plan: See List Interventions/Plan:: Assess stressors,coping strategies & signs of derpression on admission, Instruct/assist pt to develop coping & personal stress Mgt strategies, Refer to Behavioral Health if appropriate, Refer to Physician if appropriate, Instruct patient to recognize signs & symptoms of depression, Instruct patient to recog, Other additional plan/intervention - 30-day Reassessments: 30 day Reassessments:: Progressing Psychosocial - Final Assessmen Patient Health Questionnaire 90-Day Re-eval Assessment 1. Little interest or pleasure in doing things: Not at all 2. Feeling down, depressed, or hopeless: Not at all 3. Trouble falling or staying asleep, or sleeping too much: Not at all 4. Feeling tired or having little energy: Nearly every day 5. Poor appetite or overeating: Not at all 6. Feeling bad about yourself -- or that you are a failure or have let yourself or your family down: Not at all 7. Trouble concentrating on things, such as reading the newspaper or watching television: Not at all 8. Moving or speaking so slowly that other people could have noticed. Or the opposite - being so fidgety or restless that you have been moving around a lot more than usual: Nearly every day 9. Thoughts that you would be better off , or of hurting yourself in some way: Not at all How difficult have these problems made it for you to do your work, take care of things at home, or get along with other people?: Somewhat difficult Total Score: 6 Self-Efficacy 90-Day Re-eval Assessment We would like to know how confident you are in doing certain activities. Please select your confidence level for:: Select your confidence level for the following using the scale 1-10 where 1 is not at all confident and 10 is totally confident. Your score is the average of all 6 responses. Fatigue: How confident are you that you can keep the fatigue caused by your disease from interfering with the things you want to do? Select Number: 1 Physical Discomfort or Pain: How confident are you that you can keep the physical discomfort or pain of your disease from interfering with the things you want to do? Select Number: 1 Emotional Distress: How confident are you that you can keep the emotional distress caused by your disease from interfering with the things you want to do? Select Number: 9 Other Symptoms or Health Problems: How confident are you that you can keep other symptoms or health problems from interfering with the things you want to do? Select Number: 3 Different Tasks and Activities: How confident are you that you can do the different tasks and activities needed to manage your health condition so as to reduce your need to see a doctor? Select Number: 4 Medication: How confident are you that you can do things other than just taking medication to reduce how much your illness affects your everyday life? Select Number: 5 Total Score:: 3 Nutrition Survey
[2020-11-02 09:24] VITALS: BP 128/82; BP 140/78; BMI 47.1
== END 2020-11-22 23:59 ==
LOC: CR 08:00
PROVIDERS: PCP Internal Medicine; Referring Provider Internal Medicine Interventional Cardiology; Visit Provider Internal Medicine Interventional Cardiology
DX: Z95.5 Presence of coronary angioplasty implant and graft (principal); E11.9 Type 2 diabetes mellitus without complications; K21.9 Gastro-esophageal reflux disease without esophagitis; E66.01 Morbid (severe) obesity due to excess calories; E78.00 Pure hypercholesterolemia, unspecified; N17.9 Acute kidney failure, unspecified; I11.0 Hypertensive heart disease with heart failure; I50.32 Chronic diastolic (congestive) heart failure
CPT/HCPCS: 93798; 97803

== ENCOUNTER 2020-12-14 09:19 | Outpatient (RCR) | payer MEDICARE, OTHER, SELFPAY ==
[2020-11-02 09:24] VITALS: BMI 47.1
[2020-11-23 00:19] VITALS: BMI 46.5
[2020-12-01 05:55] VITALS: BMI 45.8
== END 2020-12-22 23:59 ==
LOC: DC 09:19
PROVIDERS: PCP Internal Medicine
DX: E11.9 Type 2 diabetes mellitus without complications (principal); I11.0 Hypertensive heart disease with heart failure; I50.32 Chronic diastolic (congestive) heart failure; N17.9 Acute kidney failure, unspecified; E78.00 Pure hypercholesterolemia, unspecified; K21.9 Gastro-esophageal reflux disease without esophagitis; E66.01 Morbid (severe) obesity due to excess calories
CPT/HCPCS: 97803

== ENCOUNTER 2020-12-16 08:00 | Outpatient (RCR) | payer MEDICARE, OTHER, SELFPAY ==
[2020-11-02 09:24] VITALS: BMI 47.1
[2020-11-23 00:34] VITALS: BP 128/82; BP 140/78; BMI 46.5
--- NOTE | 2020-12-01 05:45 | CR.ITP_ITS ---
Diagnosis Exercise - 90-day Assessment - Visit Date of Eval: 12/01/20 Session #:: 29 - patient has missed 5 scheduled sessions to date. # were due to a surgical procedure done in July 2020. - Physician Prescribed Exercise Modalities: NuStep, SciFit Frequency: 3x/week for 12 weeks [36 sessions] Intensity: 60-80% of age predicted maximum heart rate reserve Current METSs:: 2.5 limited by his knees Target Heart Rate:: 98-128 Current RPE:: 12-13 Maximum Excercise HR:: 104 Resting Blood Pressure: 112/78 Maximum Exercise Blood Pressure: 124/76 EKG Type: Persistent atrial fib with rare PVC. - Outcomes & Goals Goals:: Verbalizes understanding of THR, RPE & goal METS by session 6, Documents in home exercise log/reports 30 min aerobic 5 day/wk by DC, Demonstrates ac curate pulse taking by DC - Intervention & Plan Exercise Program Goals: Instruct on personal THR & RPE, Instruct on MET level & personal MET goal, Show patient to take own pulse /validate performance until accurate, Instruct on home exercise - 30-day Reassessments 30 day Reassessments:: Progressing - Physical Activity Home Exercise Physical Activity - Home Exercise: Safe Exercise, Warm-up, Self-monitoring, Cool-Down, Home Exercise > 30 min Daily, Sitting Time <3 hours/daily - Outcomes & Goals Outcomes/Goals: Demonstrates correct Warm-up/exercise Cool-Down (S3) if = 2.5 METs, Verbalizes symptoms of exercise intolerance by Session 3 (S3), Demonstrate safe equipment use (S3) & follows exercise prescrition (6) - Intervention & Plan Plan/Intervention: Instruct warm-up & cool-down if exercising at > 2 METs, Instruct on symptoms of exercise intolerance & actions to take, Instruct & monitor on saf, Assess intial functional capacity & safety risk - 30-day Reassessments 30 day Reassessments:: Progressing Nutrition - Initial Assessment Nutrition - 30-Day Assessment Nutrition - 60-Day Assessment Nutrition - 90-Day Assessment - Program Goals Nutrition Program Goals: LDL <100 optimal. 100 - 129 Near optimal. 130 - 159 Borderline High. 160 - 189 High. Total Cholesterol <200 desirable. 200 - 239 Borderline High. >/= 240 High. HDL < 40 Low >/=60 High. Triglycerides <150 desirable. <199 optimal. VlDL 5 - 40. HgbA1C <7%. BMI <25 Patient has diagnosis of Hyperlipidemia (ICD E78)?: Yes - Visit Date of Assessment:: 12/01/20 Session #:: 24 - Cholesterol/Lipids Triglycerides (mg/dL): 204 - 08/06/2013 Total Cholesterol (mg/dL): 248 LDL Cholesterol (mg/dL): 171 HDL Cholesterol (mg/dL): 36 Determine presence & major risk factors that modify LDL goal: Hypertension or hypertensive medication, Low HDL cholesterol <40 mg/dL*, Family history of premature CHD in Male < 55 years: female <65 yearsFa, Age men > 45 years; women >/= 55 years Outcomes/Goals: Pt IDs own risk factors & lifestyle modifications by Session 10, Verbalizes symptoms of angina & response by session 3., Pt independently manages Intervention/Plan: Instruct on personal lipid levels & lipid goals/NCEP guidelines, Instruct on cholesterol Referral to dietitian:: Yes - Medical Nutrition Therapy - Diabetes (Other Core Measures) Diabetes Type: Diagnosis Type II ICD-10 E11 Fasting blood glucose:: 236 Hgb A1C (4.2 - 6.3): 8.3 Insulin dependent injection/pump?: Yes Non-Insulin Dependent?: Yes Do you monitor your blood sugar at home?: Yes Referral to Diabetic Clinic:: Yes - Initial DSMT & MNT Outcomes/Goals:: Able to state symptoms of, Able to state, Able to state Intervention/Plan:: Instruct on, Refer to, Instruct on 30-day Reassessments:: Progressing - Weight Mgt (Other Care) Not Applicable: No Height: 5 ft 7 in Weight:: 293 lb BMI: 45.8 Diagnosis Overweight/Obesity BMI> 30% ICD-10 E66: Yes Diagnosis High BMI/Morbid Obesity BMI> 35% ICD-10 Z68: Yes Outcomes/Goals: Pt sets, maintains & shows weight loss goal & trend during rehab Intervention/Plan: Instruct on ideal BMI & set weight loss goal w/patient, Assist pt to ID & incorporate diet changes for weight loss by S9, Refer to Structured Weight Loss program as appropriate, Encourage goal of using 250- 300dcal per session for weight loss 30 day Reassessments:: Not Met - 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 - Healthy Eating Habits Will attend diet classes:: Yes Outcomes/Goals:: Consume diet rich in vegs,fruits,whole grain/high fiber,fish,lean meat, Limit sat/trans fats,cholesterol & added salts & sugars Intervention/Plan:: Assess current eating habits 30-day Reassessments:: Progressing - Education Gave educational materials for:: Signs & symptoms of hypoglycemia, Signs & symptoms of hyperglycemia, Relate diabetes to coronary artery disease, Healthy eating Nutrition - Final Assessment Medical - Initial Assessment Medical- 30-Day Assessment Medical- 60-Day Assessment Medical- 90-Day Assessment - Visit Date of Eval: 12/01/20 Session #:: 24 - Medication Compliance Preventative Medication(s):: Aspirin, Clopidogrel/P2Y12 inhibit, Statin/lipid, Beta jones H/O mental health issues: depression, anxiety, or addiction?: Yes Doesn?t believe in the benefits of treatment?: No Believes medications are unnecessary or harmful?: No Has a concern about medication side effects?: No Expresses concern over the cost of medications?: No Outcomes/Goals: Verbalizes medications,desired effect & common side effects @ DC, Pt self-reports following medication regimen, Keeps card in wallet w/medications listed by DC Interventions/plans: Instruct on medication effects & side effects, Review medication list w/patient every two weeks, Instruct importance of taking meds as ordered & assist problem solving 30-day Reassessments:: Progressing - Tobacco Use Tobacco Use: Non-smoker - Hypertension Hypertension Diagnosis:: Hypertension ICD-10 I10 Resting Blood Pressure:: 112/78 [place] [employer] Hypertension Guidelines: [place] [employer] Hypertension Guidelines. Normal BP Less than 120/80. Elevated BP 120/80. Hypertension Stage 1: BP 130-139/80-89. Hypertesnion Stage 2: BP 140 or higher/90 or higher. Hypertension Crisis: BP higher than 180/120 Peak Exercise Blood Pressure:: 124/76 Outcomes/Goals: Able to verbalize/achieve optimal blood pressure <130/80, Incorporates diet changes & exercise for blood pressure control by DC Interventions/plan: Instruct on optimal blood pressure, hypertension & medications, Instruct on effects of sodium, alcohol, stress, exercise &hypertension 30 day Reassessments:: Progressing - Tobacco Cessation Referral Smoking Cessation Referral:: No Individual Education/Counseling:: No Education Schedule Given:: Yes - [employer] & [employer] education - workbook Medical - Final Assessment Psychosocial - Initial Assess Psychosocial - 30-Day Assess Psychosocial - 60-Day Assess Psychosocial - 90-Day Assess - VIsit Date of Eval: 12/01/20 Session #:: 24 Not Applicable: No History of previous Mental disease:: Yes History of Emotional Disorders: Depression - Psychosocial Test Tool Used:: PHQ-9 Questionnaire phq-9 Severity: Severity. 1-4 Minimal Depression. 5-9 Mild Depression. 10-14 Moderate Depression. 15-19 Moderately Sever Depression. 20-27 Severe Depression. Rule: - Referral to Behavioral Health PS - Interventions: Yes Attend Stress Management Classes, No Referral to Behavioral Health if PHQ-9 score >9:, No Referral to [facility], No Referral to Physician if PHQ-9 if score is 5-9: - Outcomes/Goals: See list Psychosocial Outcomes/Goals:: ID's personal stressors & 2 strategies to manage stress by discharge - Intervention/Plan: See List Interventions/Plan:: Assess stressors,coping strategies & signs of derpression on admission, Instruct/assist pt to develop coping & personal stress Mgt strategies, Instruct patient to recognize signs & symptoms of depression, Instruct patient to recog - 30-day Reassessments: 30 day Reassessments:: Progressing Psychosocial - Final Assessmen Patient Health Questionnaire 60-Day Re-eval Assessment 1. Little interest or pleasure in doing things: Not at all 2. Feeling down, depressed, or hopeless: Not at all 3. Trouble falling or staying asleep, or sleeping too much: Not at all 4. Feeling tired or having little energy: Several days 5. Poor appetite or overeating: Not at all 6. Feeling bad about yourself -- or that you are a failure or have let yourself or your family down: Not at all 7. Trouble concentrating on things, such as reading the newspaper or watching television: Not at all 8. Moving or speaking so slowly that other people could have noticed. Or the opposite - being so fidgety or restless that you have been moving around a lot more than usual: Several days 9. Thoughts that you would be better off , or of hurting yourself in some way: Not at all How difficult have these problems made it for you to do your work, take care of things at home, or get along with other people?: Somewhat difficult Total Score: 2 Self-Efficacy 60-Day Re-eval Assessment We would like to know how confident you are in doing certain activities. Please select your confidence level for:: Select your confidence level for the following using the scale 1-10 where 1 is not at all confident and 10 is totally confident. Your score is the average of all 6 responses. Fatigue: How confident are you that you can keep the fatigue caused by your disease from interfering with the things you want to do? Select Number: 3 Physical Discomfort or Pain: How confident are you that you can keep the physical discomfort or pain of your disease from interfering with the things you want to do? Select Number: 3 Emotional Distress: How confident are you that you can keep the emotional distress caused by your disease from interfering with the things you want to do? Select Number: 4 Other Symptoms or Health Problems: How confident are you that you can keep other symptoms or health problems from interfering with the things you want to do? Select Number: 5 Different Tasks and Activities: How confident are you that you can do the different tasks and activities needed to manage your health condition so as to reduce your need to see a doctor? Select Number: 4 Medication: How confident are you that you can do things other than just taking medication to reduce how much your illness affects your everyday life? Select Number: 5 Total Score:: 4 Nutrition Survey
[2020-12-01 05:55] VITALS: BP 112/78; BP 124/76; BMI 45.8
== END 2020-12-22 23:59 ==
LOC: CR 08:00
PROVIDERS: PCP Internal Medicine; Referring Provider Internal Medicine Interventional Cardiology; Visit Provider Internal Medicine Interventional Cardiology
DX: Z95.5 Presence of coronary angioplasty implant and graft (principal)
CPT/HCPCS: 93798

== ENCOUNTER 2021-01-19 08:00 | Outpatient (RCR) | payer SELFPAY ==
[2020-12-01 05:55] VITALS: BMI 45.8
[2020-12-23 00:14] VITALS: BMI 46.5
== END 2021-01-22 23:59 ==
LOC: CR 08:00
PROVIDERS: PCP Internal Medicine
DX: Z00.00 Encounter for general adult medical examination without abnormal findings (principal)

== ENCOUNTER → 2021-02-14 07:40 | Outpatient (CLI) | payer MEDICARE, OTHER, SELFPAY ==
[2020-12-01 05:55] VITALS: BMI 45.8
[2021-02-14 08:39] LABS: Hematocrit 41.5 % (40-54); Mean Corp Hgb Conc 33.7 g/dL (32-36); Mean Corpuscular Hgb 30.4 pg (27.0-32.0); Mean Platelet Vol. 9.5 fl (6.2-12.0); Platelet Count 234 K/mm3 (150-450); RBC Distribution Width CV 13.2 % (11.6-14.6); RBC Distribution Width SD 43.1 fl (35.1-43.9); Red Blood Count 4.61 M/mm3 (4.6-6.2); White Blood Count 3.8 K/mm3 (4.4-11.0)
[2021-02-14 08:51] LABS: Protein, Urine (Random) 41.5 mg/dL (<11.9); Protein:Creat Ratio 247 mg/g CRE (0-200)
[2021-02-14 09:00] LABS: BUN 18 mg/dL (7-18); BUN/Creat Ratio 15.8 RATIO (10-20); Chloride 100 mmol/L (98-107); Creatinine, Serum 1.14 mg/dL (0.70-1.30); EST Glomerular Filtration Rate 67 mL/min (>60); Est Glom Filt Rate - Afr Amer 82 mL/min (>60); Glucose 168 mg/dL (74-106); Phosphorus 3.3 mg/dL (2.5-4.9); Potassium 3.9 mmol/L (3.5-5.1); Sodium Level 136 mmol/L (136-145)
[2021-02-14 09:01] LABS: PTHIN 116.7 pg/mL (18.4-80.1)
[2021-02-14 09:05] LABS: Vitamin D,25 Hydroxy 27.3 ng/mL
== END ==
PROVIDERS: PCP Internal Medicine; Referring Provider Internal Medicine Nephrology; Visit Provider Internal Medicine Nephrology
DX: E87.5 Hyperkalemia (principal); E21.3 Hyperparathyroidism, unspecified; I10 Essential (primary) hypertension
CPT/HCPCS: 36415; 80069; 82306; 82570; 83970; 84156; 85027

== ENCOUNTER 2021-02-21 08:00 | Outpatient (RCR) | payer SELFPAY ==
[2020-12-01 05:55] VITALS: BMI 45.8
[2021-01-23 00:10] VITALS: BMI 46.5
== END 2021-02-21 23:59 ==
LOC: CR 08:00
PROVIDERS: PCP Internal Medicine
DX: I11.0 Hypertensive heart disease with heart failure (principal); E11.9 Type 2 diabetes mellitus without complications; K21.9 Gastro-esophageal reflux disease without esophagitis; E66.01 Morbid (severe) obesity due to excess calories; E78.00 Pure hypercholesterolemia, unspecified; N17.9 Acute kidney failure, unspecified; I50.32 Chronic diastolic (congestive) heart failure

== ENCOUNTER 2021-03-23 08:00 | Outpatient (RCR) | payer SELFPAY ==
[2020-12-01 05:55] VITALS: BMI 45.8
[2021-02-22 00:16] VITALS: BMI 46.5
== END 2021-03-24 23:59 ==
LOC: CR 08:00
PROVIDERS: PCP Internal Medicine; Referring Provider Internal Medicine; Visit Provider Internal Medicine
DX: E11.9 Type 2 diabetes mellitus without complications (principal); K21.9 Gastro-esophageal reflux disease without esophagitis; E66.01 Morbid (severe) obesity due to excess calories; E78.00 Pure hypercholesterolemia, unspecified; N17.9 Acute kidney failure, unspecified; I11.0 Hypertensive heart disease with heart failure; I50.32 Chronic diastolic (congestive) heart failure

== ENCOUNTER 2021-04-20 08:00 | Outpatient (RCR) | payer SELFPAY ==
[2020-12-01 05:55] VITALS: BMI 45.8
== END 2021-04-24 23:59 ==
LOC: CR 08:00
PROVIDERS: PCP Internal Medicine; Referring Provider Internal Medicine; Visit Provider Internal Medicine
DX: Z00.00 Encounter for general adult medical examination without abnormal findings (principal)

== ENCOUNTER 2021-05-16 08:00 | Outpatient (RCR) | payer SELFPAY ==
[2020-12-01 05:55] VITALS: BMI 45.8
== END 2021-05-22 23:59 ==
LOC: CR 08:00
PROVIDERS: PCP Internal Medicine; Referring Provider Internal Medicine; Visit Provider Internal Medicine
DX: Z00.00 Encounter for general adult medical examination without abnormal findings (principal)

== ENCOUNTER 2021-05-18 06:02 | Outpatient (CLI) | payer MEDICARE, OTHER, SELFPAY ==
[2020-12-01 05:55] VITALS: BMI 45.8
[2021-05-18 07:59] LABS: Cholesterol 264 mg/dL (200); High Density Lipoprotein 43 mg/dL; Triglycerides 275 mg/dL; Very Low Density Lipoprotein 55 mg/dL (5-40)
[2021-05-18 08:06] LABS: Hemoglobin A1c 8.1 % (3.8-5.6)
== END 2021-05-18 23:59 | disposition home or self-care (01) ==
PROVIDERS: PCP Internal Medicine; Referring Provider Internal Medicine Interventional Cardiology; Visit Provider Internal Medicine Interventional Cardiology
DX: E78.49 Other hyperlipidemia (principal); Z79.4 Long term (current) use of insulin
CPT/HCPCS: 36415; 80061; 83036

== ENCOUNTER 2021-06-22 08:00 | Outpatient (RCR) | payer SELFPAY ==
[2020-12-01 05:55] VITALS: BMI 45.8
== END 2021-06-22 23:59 | disposition home or self-care (01) ==
LOC: CR 08:00
PROVIDERS: PCP Internal Medicine; Referring Provider Internal Medicine; Visit Provider Internal Medicine
DX: Z00.00 Encounter for general adult medical examination without abnormal findings (principal)

== ENCOUNTER 2021-07-20 08:00 | Outpatient (RCR) | payer SELFPAY ==
[2020-12-01 05:55] VITALS: BMI 45.8
== END 2021-07-22 23:59 ==
LOC: CR 08:00
PROVIDERS: PCP Internal Medicine; Referring Provider Internal Medicine; Visit Provider Internal Medicine
DX: Z00.00 Encounter for general adult medical examination without abnormal findings (principal)

== ENCOUNTER 2021-08-22 08:00 | Outpatient (RCR) | payer SELFPAY ==
[2020-12-01 05:55] VITALS: BMI 45.8
== END 2021-08-22 23:59 ==
LOC: CR 08:00
PROVIDERS: PCP Internal Medicine; Referring Provider Internal Medicine; Visit Provider Internal Medicine
DX: Z00.00 Encounter for general adult medical examination without abnormal findings (principal)

== ENCOUNTER → 2021-08-22 | Outpatient (CLI) | payer MEDICARE, OTHER, SELFPAY ==
[2020-12-01 05:55] VITALS: BMI 45.8
[2021-08-22 08:37] LABS: Protein, Urine (Random) < 6.0 mg/dL (<11.9)
[2021-08-22 08:42] LABS: Anion Gap 7 (5-15); BUN 30 mg/dL (7-18); BUN/Creat Ratio 22.7 RATIO (10-20); Chloride 101 mmol/L (98-107); Creatinine, Serum 1.32 mg/dL (0.70-1.30); EST Glomerular Filtration Rate 57 mL/min (>60); Est Glom Filt Rate - Afr Amer 69 mL/min (>60); Glucose 174 mg/dL (74-106); Potassium 4.6 mmol/L (3.5-5.1); Sodium Level 135 mmol/L (136-145)
== END | disposition home or self-care (01) ==
PROVIDERS: PCP Internal Medicine; Referring Provider Internal Medicine Nephrology; Visit Provider Internal Medicine Nephrology
DX: I10 Essential (primary) hypertension (principal)
CPT/HCPCS: 36415; 80048; 82570; 84156

== ENCOUNTER → 2021-08-23 | Outpatient (CLI) | payer MEDICARE, OTHER, SELFPAY ==
[2020-12-01 05:55] VITALS: BMI 45.8
[2021-08-23 08:51] LABS: Anion Gap 7 (5-15); BUN 31 mg/dL (7-18); BUN/Creat Ratio 26.3 RATIO (10-20); Calcium,Total 9.3 mg/dL (8.5-10.1); Chloride 102 mmol/L (98-107); Cholesterol 282 mg/dL (200); Creatinine, Serum 1.18 mg/dL (0.70-1.30); EST Glomerular Filtration Rate 65 mL/min (>60); Est Glom Filt Rate - Afr Amer 78 mL/min (>60); Glucose 145 mg/dL (74-106); High Density Lipoprotein 43 mg/dL; Potassium 4.3 mmol/L (3.5-5.1); Sodium Level 137 mmol/L (136-145); Triglycerides 181 mg/dL; Very Low Density Lipoprotein 36 mg/dL (5-40)
[2021-08-23 10:57] LABS: Hemoglobin A1c 6.5 % (3.8-5.6)
== END | disposition home or self-care (01) ==
PROVIDERS: PCP Internal Medicine; Referring Provider Internal Medicine; Visit Provider Internal Medicine
DX: E11.40 Type 2 diabetes mellitus with diabetic neuropathy, unspecified (principal); Z79.4 Long term (current) use of insulin
CPT/HCPCS: 36415; 80048; 80061; 83036

== ENCOUNTER 2021-09-21 08:00 | Outpatient (RCR) | payer SELFPAY ==
[2020-12-01 05:55] VITALS: BMI 45.8
== END 2021-09-21 23:59 ==
LOC: CR 08:00
PROVIDERS: PCP Internal Medicine; Referring Provider Internal Medicine; Visit Provider Internal Medicine
DX: Z00.00 Encounter for general adult medical examination without abnormal findings (principal)

== ENCOUNTER 2021-10-19 08:00 | Outpatient (RCR) | payer SELFPAY ==
[2020-12-01 05:55] VITALS: BMI 45.8
== END 2021-10-22 23:59 ==
LOC: CR 08:00
PROVIDERS: PCP Internal Medicine; Referring Provider Internal Medicine; Visit Provider Internal Medicine
DX: Z00.00 Encounter for general adult medical examination without abnormal findings (principal)

== ENCOUNTER 2021-11-21 08:00 | Outpatient (RCR) | payer SELFPAY ==
[2020-12-01 05:55] VITALS: BMI 45.8
== END 2021-11-22 23:59 ==
LOC: CR 08:00
PROVIDERS: PCP Internal Medicine; Referring Provider Internal Medicine; Visit Provider Internal Medicine
DX: Z00.00 Encounter for general adult medical examination without abnormal findings (principal)

== ENCOUNTER 2021-12-21 08:00 | Outpatient (RCR) | payer SELFPAY ==
[2020-12-01 05:55] VITALS: BMI 45.8
== END 2021-12-22 23:59 ==
LOC: CR 08:00
PROVIDERS: PCP Internal Medicine; Referring Provider Internal Medicine; Visit Provider Internal Medicine
DX: Z00.00 Encounter for general adult medical examination without abnormal findings (principal)

== ENCOUNTER → 2022-01-12 | Outpatient (CLI) | payer MEDICARE, OTHER, SELFPAY ==
[2020-12-01 05:55] VITALS: BMI 45.8
[2022-01-12 08:05] LABS: Hemoglobin A1c 6.3 % (3.8-5.6)
[2022-01-12 08:10] LABS: Anion Gap 4 (5-15); BUN 21 mg/dL (7-18); BUN/Creat Ratio 17.5 RATIO (10-20); Calcium,Total 9.2 mg/dL (8.5-10.1); Chloride 102 mmol/L (98-107); EST Glomerular Filtration Rate 63 mL/min (>60); Est Glom Filt Rate - Afr Amer 77 mL/min (>60); Glucose 81 mg/dL (74-106); Potassium 4.3 mmol/L (3.5-5.1); Sodium Level 138 mmol/L (136-145)
== END | disposition home or self-care (01) ==
PROVIDERS: PCP Internal Medicine; Referring Provider Internal Medicine; Visit Provider Internal Medicine
DX: E11.40 Type 2 diabetes mellitus with diabetic neuropathy, unspecified (principal); Z79.4 Long term (current) use of insulin
CPT/HCPCS: 36415; 80048; 83036

== ENCOUNTER 2022-01-18 08:00 | Outpatient (RCR) | payer SELFPAY ==
[2020-12-01 05:55] VITALS: BMI 45.8
== END 2022-01-22 23:59 ==
LOC: CR 08:00
PROVIDERS: PCP Internal Medicine; Referring Provider Internal Medicine; Visit Provider Internal Medicine
DX: Z00.00 Encounter for general adult medical examination without abnormal findings (principal)

== ENCOUNTER 2022-02-20 08:00 | Outpatient (RCR) | payer SELFPAY ==
[2020-12-01 05:55] VITALS: BMI 45.8
== END 2022-02-21 23:59 | disposition home or self-care (01) ==
LOC: CR 08:00
PROVIDERS: PCP Internal Medicine; Referring Provider Internal Medicine; Visit Provider Internal Medicine
DX: Z00.00 Encounter for general adult medical examination without abnormal findings (principal)

== ENCOUNTER → 2022-02-20 | Outpatient (CLI) | payer MEDICARE, OTHER, SELFPAY ==
[2020-12-01 05:55] VITALS: BMI 45.8
[2022-02-20 08:29] LABS: Protein, Urine (Random) 8.5 mg/dL (<11.9); Protein:Creat Ratio 125 mg/g CRE (0-200)
[2022-02-20 08:58] LABS: Anion Gap 7 (5-15); BUN 19 mg/dL (7-18); BUN/Creat Ratio 16.5 RATIO (10-20); Calcium,Total 8.6 mg/dL (8.5-10.1); Chloride 100 mmol/L (98-107); Creatinine, Serum 1.15 mg/dL (0.70-1.30); EST Glomerular Filtration Rate 67 mL/min (>60); Est Glom Filt Rate - Afr Amer 81 mL/min (>60); Glucose 78 mg/dL (74-106); Potassium 4.1 mmol/L (3.5-5.1); Sodium Level 138 mmol/L (136-145)
== END | disposition home or self-care (01) ==
LOC: LAB 07:20
PROVIDERS: PCP Internal Medicine; Referring Provider Internal Medicine Nephrology; Visit Provider Internal Medicine Nephrology
DX: N17.9 Acute kidney failure, unspecified (principal)
CPT/HCPCS: 36415; 80048; 82570; 84156

== ENCOUNTER 2022-03-22 08:00 | Outpatient (RCR) | payer SELFPAY ==
[2020-12-01 05:55] VITALS: BMI 45.8
== END 2022-03-24 23:59 ==
LOC: CR 08:00
PROVIDERS: PCP Internal Medicine; Referring Provider Internal Medicine; Visit Provider Internal Medicine
DX: Z00.00 Encounter for general adult medical examination without abnormal findings (principal)

== ENCOUNTER 2022-04-24 08:00 | Outpatient (RCR) | payer SELFPAY ==
[2020-12-01 05:55] VITALS: BMI 45.8
== END 2022-04-24 23:59 ==
LOC: CR 08:00
PROVIDERS: PCP Internal Medicine; Visit Provider Internal Medicine
DX: Z00.00 Encounter for general adult medical examination without abnormal findings (principal)

== ENCOUNTER 2022-05-22 08:00 | Outpatient (RCR) | payer SELFPAY ==
[2020-12-01 05:55] VITALS: BMI 45.8
== END 2022-05-22 23:59 ==
LOC: CR 08:00
PROVIDERS: PCP Internal Medicine; Referring Provider Internal Medicine; Visit Provider Internal Medicine
DX: Z00.00 Encounter for general adult medical examination without abnormal findings (principal)

== ENCOUNTER → 2022-05-25 | Outpatient (CLI) | payer MEDICARE, OTHER, SELFPAY ==
[2020-12-01 05:55] VITALS: BMI 45.8
[2022-05-25 06:57] LABS: Hemoglobin 14.7 g/dL (13.0-16.5); Mean Corp Hgb Conc 32.7 g/dL (32-36); Mean Corpuscular Hgb 29.9 pg (27.0-32.0); Mean Corpuscular Volume 91.6 fL (80-94); Mean Platelet Vol. 9.2 fl (6.2-12.0); Platelet Count 235 K/mm3 (150-450); RBC Distribution Width CV 13.1 % (11.6-14.6); RBC Distribution Width SD 43.6 fl (35.1-43.9); Red Blood Count 4.91 M/mm3 (4.6-6.2); White Blood Count 5.2 K/mm3 (4.4-11.0)
[2022-05-25 07:34] LABS: ALB/GLOB Ratio 0.9 RATIO (0.9-2.4); AST(SGOT) 37 U/L (15-37); Alanine Aminotransfer ALT/SGPT 24 U/L (16-61); Albumin, Serum 3.4 g/dL (3.2-5.0); Alkaline Phosphatase 74 U/L (45-117); Anion Gap 7 (5-15); BUN 17 mg/dL (7-18); BUN/Creat Ratio 15.2 RATIO (10-20); Calcium,Total 9.6 mg/dL (8.5-10.1); Chloride 100 mmol/L (98-107); Cholesterol 251 mg/dL (200); Creatinine, Serum 1.12 mg/dL (0.70-1.30); EST Glomerular Filtration Rate 69 mL/min (>60); Est Glom Filt Rate - Afr Amer 83 mL/min (>60); Globulin 3.9 g/dL (2.2-4.2); Glucose 82 mg/dL (74-106); High Density Lipoprotein 42 mg/dL; Potassium 4.3 mmol/L (3.5-5.1); Protein, Total 7.3 g/dL (6.4-8.2); Sodium Level 138 mmol/L (136-145); Triglycerides 145 mg/dL; Very Low Density Lipoprotein 29 mg/dL (5-40)
[2022-05-25 08:01] LABS: Hemoglobin A1c 5.8 % (3.8-5.6)
[2022-05-25 08:08] LABS: Microalbumin:Creatinine Ratio 21.5 mg/g CRE (<30 mg/g CRE)
== END | disposition home or self-care (01) ==
PROVIDERS: PCP Internal Medicine; Referring Provider Nurse Practitioner; Visit Provider Nurse Practitioner
DX: E11.40 Type 2 diabetes mellitus with diabetic neuropathy, unspecified (principal); Z79.4 Long term (current) use of insulin; I10 Essential (primary) hypertension; E78.49 Other hyperlipidemia
CPT/HCPCS: 36415; 80053; 80061; 82043; 82570; 83036; 85027

== ENCOUNTER 2022-06-21 08:00 | Outpatient (RCR) | payer SELFPAY ==
[2020-12-01 05:55] VITALS: BMI 45.8
== END 2022-06-22 23:59 ==
LOC: CR 08:00
PROVIDERS: PCP Internal Medicine; Referring Provider Internal Medicine; Visit Provider Internal Medicine
DX: Z00.00 Encounter for general adult medical examination without abnormal findings (principal)

== ENCOUNTER 2022-07-19 08:00 | Outpatient (RCR) | payer SELFPAY ==
[2020-12-01 05:55] VITALS: BMI 45.8
== END 2022-07-22 23:59 ==
LOC: CR 08:00
PROVIDERS: PCP Internal Medicine; Referring Provider Internal Medicine; Visit Provider Internal Medicine
DX: Z00.00 Encounter for general adult medical examination without abnormal findings (principal)

== ENCOUNTER → 2022-08-17 | Outpatient (CLI) | payer MEDICARE, OTHER, SELFPAY ==
[2020-12-01 05:55] VITALS: BMI 45.8
[2022-08-17 07:14] LABS: Hematocrit 46.9 % (40-54); Hemoglobin 15.2 g/dL (13.0-16.5); Mean Corp Hgb Conc 32.4 g/dL (32-36); Mean Corpuscular Hgb 29.9 pg (27.0-32.0); Mean Corpuscular Volume 92.1 fL (80-94); Mean Platelet Vol. 9.3 fl (6.2-12.0); Platelet Count 250 K/mm3 (150-450); RBC Distribution Width CV 13.4 % (11.6-14.6); RBC Distribution Width SD 45.6 fl (35.1-43.9); Red Blood Count 5.09 M/mm3 (4.6-6.2); White Blood Count 5.5 K/mm3 (4.4-11.0)
[2022-08-17 07:20] LABS: Protein, Urine (Random) 8.1 mg/dL (<11.9); Protein:Creat Ratio 148 mg/g CRE (0-200)
[2022-08-17 07:27] LABS: Albumin, Serum 3.3 g/dL (3.2-5.0); BUN 20 mg/dL (7-18); BUN/Creat Ratio 15.3 RATIO (10-20); Calcium,Total 8.9 mg/dL (8.5-10.1); Chloride 103 mmol/L (98-107); Creatinine, Serum 1.31 mg/dL (0.70-1.30); EST Glomerular Filtration Rate 57 mL/min (>60); Est Glom Filt Rate - Afr Amer 69 mL/min (>60); Glucose 97 mg/dL (74-106); Phosphorus 3.8 mg/dL (2.5-4.9); Potassium 4.1 mmol/L (3.5-5.1); Sodium Level 139 mmol/L (136-145)
[2022-08-17 07:45] LABS: PTHIN 206.5 pg/mL (18.4-80.1)
[2022-08-17 07:47] LABS: Vitamin D,25 Hydroxy 39.2 ng/mL
== END | disposition home or self-care (01) ==
LOC: LAB 06:22
PROVIDERS: PCP Internal Medicine; Visit Provider Internal Medicine Nephrology
DX: N18.31 Chronic kidney disease, stage 3a (principal); E21.3 Hyperparathyroidism, unspecified
CPT/HCPCS: 36415; 80069; 82306; 82570; 83970; 84156; 85027

== ENCOUNTER 2022-08-21 08:00 | Outpatient (RCR) | payer SELFPAY ==
[2020-12-01 05:55] VITALS: BMI 45.8
== END 2022-08-22 23:59 ==
LOC: CR 08:00
PROVIDERS: PCP Internal Medicine; Referring Provider Internal Medicine; Visit Provider Internal Medicine
DX: Z00.00 Encounter for general adult medical examination without abnormal findings (principal)

== ENCOUNTER 2022-09-20 08:00 | Outpatient (RCR) | payer SELFPAY ==
[2020-12-01 05:55] VITALS: BMI 45.8
== END 2022-09-21 23:59 ==
LOC: CR 08:00
PROVIDERS: PCP Internal Medicine; Referring Provider Internal Medicine; Visit Provider Internal Medicine
DX: Z00.00 Encounter for general adult medical examination without abnormal findings (principal)

== ENCOUNTER 2022-10-18 08:00 | Outpatient (RCR) | payer SELFPAY ==
[2020-12-01 05:55] VITALS: BMI 45.8
== END 2022-10-22 23:59 ==
LOC: CR 08:00
PROVIDERS: PCP Internal Medicine; Referring Provider Internal Medicine; Visit Provider Internal Medicine
DX: Z00.00 Encounter for general adult medical examination without abnormal findings (principal)

== ENCOUNTER 2022-11-22 08:00 | Outpatient (RCR) | payer SELFPAY ==
[2020-12-01 05:55] VITALS: BMI 45.8
[2022-11-15 13:28] VITALS: BP 127/75; PULSE 78; RESP 16; TEMP 36.1
== END 2022-11-22 23:59 ==
LOC: CR 08:00
PROVIDERS: PCP Internal Medicine; Referring Provider Internal Medicine; Visit Provider Internal Medicine
DX: Z00.00 Encounter for general adult medical examination without abnormal findings (principal)

== ENCOUNTER 2022-11-22 13:45 | Outpatient (RCR) | payer MEDICARE, OTHER, SELFPAY ==
[2020-12-01 05:55] VITALS: BMI 45.8
[2022-11-02 10:00] VITALS: BP 129/85; PULSE 81; RESP 16; TEMP 35.6; BMI 46.0
--- NOTE | 2022-11-02 16:11 | PCM.WC.HP ---
History of Present Illness Date of Service: 11/02/22 Chief Complaint: RLE wound History of Wound: Patient presents today for evaluation of RLE wound. He is accompanied to this appt by his who is a retired nurse. This wound has been present for 4-5 weeks, no obvious provocation/trauma to the area. It started as a blister. His states she has been doing her best to care for it at home with wet to dry dressings, but she reports he does not tolerate dressing changes very well. He has taken doxycycline and keflex in the past few weeks to address possible infection. Currently, no significant redness, focal swelling, foul odor, N/V, F/C. She notes there is mild-moderate serous drainage. He has had multiple recurrent wounds which similarly started as blisters on his bilateral shins/calves. They tend to heal up with care at home in a couple weeks but this one seems more persistent. 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 He had arterial studies performed in 2019 which showed only small vessel disease. He has not had any venous studies. He does have bilateral lower extremity edema, he wears nonmeasured compression stockings. He has diabetes, reportedly under decent control at this time (A1c in May 5.8). [facility] Medical History (Updated 11/06/22 @ 17:22 by ULISES Cui) Atherosclerotic heart disease of [place] coronary artery without angina pectoris Chronic diastolic heart failure Diabetes mellitus Essential hypertension GERD (gastroesophageal reflux disease) Paroxysmal atrial fibrillation Presence of stent in coronary artery (~07/01/20) Pure hypercholesterolemia Type 2 diabetes mellitus Home Medications ascorbic acid (vitamin C) 1,000 mg tablet 1,000 mg PO DAILY SUPPLEMENT 05/30/17 [History Last Taken 09/15/19] aspirin 325 mg tablet 325 mg PO DAILY HEART HEALTH 05/30/17 [History Last Taken 12/29/19] nitroglycerin 0.4 mg sublingual tablet (Nitrostat) 0.4 mg SUBLINGUAL Q5M PRN chest pain 05/30/17 [History Last Taken Unknown] biotin 1 mg tablet 1 mg PO DAILY SUPPLEMENT 05/25/19 [History Last Taken 09/15/19] insulin glargine 100 unit/mL (3 mL) subcutaneous pen (Basaglar KwikPen U-100 Insulin) 56 unit subcut QHS DM 05/25/19 [History Last Taken 09/14/19] omega-3 fatty acids 1,000 mg capsule (Fish Oil Concentrate) 3,000 mg PO BID SUPPLEMENT 05/25/19 [History Last Taken 09/15/19] metoprolol tartrate 50 mg tablet 50 mg PO BID HEART 09/15/19 [History Last Taken 12/29/19] multivitamin with minerals 1 tab PO BID SUPPLEMENT 09/15/19 [History Last Taken 09/15/19] acetaminophen 325 mg tablet 500 mg (1.5385 x 325 mg) PO Q4H PRN Pain Score 1-10/Temp > 100.7 F 09/19/19 [Rx Last Taken Unknown] amlodipine 10 mg tablet 5 mg PO DAILY 06/24/20 [History Last Taken Unknown] cholecalciferol (vitamin D3) 50 mcg (2,000 unit) capsule 2,000 unit PO DAILY 06/24/20 [History Last Taken Unknown] clopidogrel 75 mg tablet (Plavix) 75 mg PO DAILY 08/04/20 [History Last Taken Unknown] doxazosin 1 mg tablet (Cardura) 1 mg PO QHS 11/02/22 [History Last Taken Unknown] furosemide 80 mg tablet 80 mg PO BID 11/02/22 [History Last Taken Unknown] insulin aspart U-100 100 unit/mL subcutaneous cartridge 25 unit subcut TID 11/02/22 [History Last Taken Unknown] metolazone 2.5 mg tablet 2.5 mg PO DAILY 11/02/22 [History Last Taken Unknown] metoprolol tartrate 50 mg tablet (Lopressor) 50 mg PO BID 11/02/22 [History Last Taken Unknown] Allergy/AdvReac Type Severity Reaction Status Date / Time propofol Allergy Other Verified 06/24/20 08:12 hydrocodone [From Vicodin] AdvReac Severe Hives Verified 06/24/20 08:12 ramipril [From Altace] AdvReac Severe Fast HR Verified 06/24/20 08:12 valsartan [From Diovan] AdvReac Severe Fast HR Verified 06/24/20 08:12 Mlgiktj-IKF-GdL Reductase AdvReac Intermediate Muscle Verified 06/24/20 08:12 Inhibitor aches [Nlbzkeh-Fmd-Poc Reductase Inhibitor] Family History (Reviewed 04/21/20 @ 08:19 by Judith Lo TECHNICAL HEALTHCARE CONSULTANT, TECHNICAL HEALTHCARE CONSULTANT-C) Other Family history of CVA Family history of hyperlipidemia Family history of hypertension Surgical History (Updated 05/25/20 @ 09:[address] Curt Barton DO) Coronary angioplasty status History of left heart catheterization (LHC) (~12/29/19) History of tonsillectomy and adenoidectomy History of vasectomy Presence of coronary angioplasty implant and graft (~06/2007) Social History (Updated 04/21/20 @ 09:24 by Judith Lo TECHNICAL HEALTHCARE CONSULTANT, TECHNICAL HEALTHCARE CONSULTANT-C) Smoking Status: Never smoker alcohol intake: current details: whiskey,daily substance use type: does not use Vital Signs Vital Signs Vital Signs: 11/02/22 10:00 Temperature 96.0 F L Temperature Source Temporal Pulse Rate 81 Respiratory Rate 16 Blood Pressure 129/85 H Blood Pressure Mean 99 Blood Pressure Source Manual Blood Pressure Position Semi-Fowlers Blood Pressure Location Left Arm Weight Weight: 294 lb Body Mass Index (BMI) 46.0 Physical Exam Const alert, oriented x3 and no apparent distress General Appearance: cooperative Nutritional Appearance: obese centrally obese HEENT normocephalic, head/scalp atraumatic, hearing grossly normal bilaterally, external ears normal and external nose normal Head and Scalp: normal to inspection, normocephalic and atraumatic Eyes EOMs intact bilaterally General Eye: normal appearance of both eyes Neck General: normal visual inspection and trachea midline Resp normal respiratory effort, normal air movement, no retractions and no use of accessory muscles Cardio regular rate and regular rhythm Extremity Extremity Narrative: Bilateral lower extremity edema; appropriate warmth, DP/PT pulses diminished to palpation bilaterally Skin Wounds: wounds noted Wound Narrative: R medial mckee/calf wound with significant adherent slough and devitalized tissue. No significant erythema, focal swelling, purulent drainage, warmth. Scattered scars from prior wounds visible bilateral lower legs. Hemosiderin deposition/lipodermatosclerosis noted bilateral lower legs. Scattered, small fluid blisters noted bilaterally. Neuro oriented x3, CN's II-XII intact bilaterally, moves all extremities and no sensory deficits noted Speech: speech normal Psych mental status grossly normal Appearance: grossly normal Attitude: calm Activity / Motor Behavior: appropriate eye contact Debridement Note Debridement Note Wound debrided: R lower leg Laterality: Right Type of Debridement: Excisional debridement Anesthesia Used: 5% Lidocaine Gel Depth: Down to and including healthy tissue Percentage of wound debrided: 100 Instrument Used: 5mm curette Tissue Removed: slough, devitalized tissue Amount of bleeding with debridement: Mild Bleeding Controlled with: Pressure Patient tolerated procedure: Patient tolerated procedure well Post-Debridement Measurements and Additional Note: Post-Debridement Measurements/Treatment - Nurse 1 - General Ulcer Assessment Start: 11/02/22 10:00 Freq: Status: Active Protocol: VERONICA.LOWEXRadha Activity Type Activity Date Activity User E-sign Co-sign Detail Recorded Client Recorded Date Recorded By Document 11/02/22 10:00 APOLLO [id number] 11/02/22 10:11 APOLLO 11/02/22 10:00 - Today's Visit Information Type of service Initial Visit Arrival Mode Ambulatory,Cane Patient Identification Verified (Name & Yes ) Patient Requires Transmission-Based No Precautions Height and Weight Height 5 ft 7 in Weight 294 lb Weight in Pounds 294.0 lbs Weight Measurement Method Estimated by Patient Body Mass Index (BMI) 46.0 BMI Classification Obese BSA - Gladis 2.38 Vital Signs Temperature (97.8 F-99.1 F) 96.0 F L Temperature Source Temporal Pulse Rate (60-100) 81 Pulse Location Monitor Respiratory Rate (12-18) 16 Respiratory rate source Observation Blood Pressure (90/60-120/80) 129/85 H Blood Pressure Mean 99 Source Manual Position Semi-Fowlers Blood Pressure Location Left Arm History Since Last Visit- (Skip if this is Patient's initial visit) Left Footwear Regular Shoe Right Footwear Regular Shoe Pain Scale: 0-10 Numeric Is Patient Pain Free? Yes Lower Extremity Assessment/ Foot Assessment/ Toe Nail Assessment Right -Posterior Tibial Palpable Yes -Posterior Tibial Doppler Monophasic -Dorsalis Pedis Palpable Yes -Dorsalis Pedis Doppler Monophasic -Extremity Color Hyperpigmented -Hair Growth on Legs Yes -Hair Growth on Toes No -Temperature of Extremity Warm -Capillary Refill Less than 3 Seconds -Dependent Rubor Yes -Other Deformity No -Prior Foot Ulcer No -Charcot Joint No -Prior Amputation No -Thick Yes -Discolored Yes -Deformed Yes -Improper Length & Hygeine No Left -Posterior Tibial Palpable Yes -Posterior Tibial Doppler Monophasic -Dorsalis Pedis Palpable Yes -Dorsalis Pedis Doppler Monophasic -Other Deformity No -Prior Foot Ulcer No -Charcot Joint No -Prior Amputation No -Thick No -Discolored Yes -Deformed Yes -Improper Length & Hygeine No Neuropathy Assessment Feet - Top Side and Bottom <Entered> (a) Communication Assessment Preferred language Czech Bead Stringer Required No Able to Read Yes Able to Write Yes Communication Tools None Caregiver Communication Skills No Impairment Impairment Right Hearing Abillity Normal Left Hearing Abillity Normal Visual Assistive Devices Glasses Teaching Assessment Preferences Verbal,Written, Audio/Visual, Demonstration Barriers to Learning None Readiness To Learn Good Willingness to Engage in Self Management Med Activies Readiness to Engage in Self Management Med Activities Anxiety Level Calm Cooperation Cooperative Perception Coherent Interest in Health Problem Asks Questions Education Importance Acknowledges Need Does Patient Smoke tobacco or other No substances Is Patient Diabetic Yes Functional Assessment Recent Decline in Ability to Perform Ambulation Assistive Device With Patient Yes List Device(s) with Patient cane Culture/Confucianist/Program Supervisor Cultural/Confucianist Needs that may affect No Treatment Plan Would you allow our [facility] wheat inspector to No meet you for the purpose of spiritual/ emotional support? Program Supervisor to contact place of uatsdin No Teaching: Wound Center [facility] Orientation/ Contacting Physician -Person Taught Patient,Family -Teaching Method Discussion, Demonstration -Response to teaching Return demonstration, Verbalize understanding (a) 1 - positive 2 - positive 3 - positive 4 - positive - Nurse 1 - General Ulcer Measurement Start: 11/02/22 10:00 Freq: Status: Active Protocol: Activity Type Activity Date Activity User E-sign Co-sign Detail Recorded Client Recorded Date Recorded By Document 11/02/22 10:00 APOLLO [id number] 11/02/22 10:11 APOLLO 11/02/22 10:00 Wound Center Nurse 1 1-right medial leg -Combined with other wound No -Current Size (cm) - Length 2.5 -Current Size (cm) - Width 1.0 -Current Size (cm) - Depth 0.1 -Total Square Cm 2.50 -Photo Taken Yes -Epithelialization Small 1-33% -Tunneling No -Undermining/Tunneling No -Circular Undermining No -Classification - Jackson Grading ( Grade 2 Diabetic Ulcer) -Exudate Amt None Present -Wound Margin Flat & Intact -Granulation Amt None Present (0 %) -Slough/Fibrin Yes -Necrosis Amt Large (67-100%) -Necrotic Tissue Type Adherent Slough -Structure Exposed N/A -Texture (Aileen-wound Skin Appearance) Assessed, Localized Edema -Moisture (Aileen-wound Skin Appearance) Assessed -Color (Aileen-wound Skin Appearance) Assessed, Hemosiderin Staining -Temperature (Aileen-wound Skin No Abnormality Appearance) (Pt Warm) -Tenderness on Palpation (Aileen-wound No Skin Appearance) -Ulcer Cleansing Wound Cleanser -Foul Odor after Cleansing No -Anesthetic Used 5% Lidocaine Gel Lower Limb Edema Present Yes Right Calf (cm) 44.6 Right Ankle (cm) 25.0 Left Calf (cm) 45.0 Left Ankle (cm) 24.2 - Nurse 3 - General Ulcer D/C NN Start: 11/02/22 10:00 Freq: Status: Active Protocol: Activity Type Activity Date Activity User E-sign Co-sign Detail Recorded Client Recorded Date Recorded By Document 11/02/22 10:57 MW [id number] 11/02/22 10:59 MW Edit Result 11/02/22 10:57 MW (1) [id number] 11/02/22 11:01 MW (1) 1-right medial leg - Mepilex Border 1 => 2 11/02/22 10:57 Wound Care Center Nurse 3 1-right medial leg -Ulcer Cleansing Rinsed/ Irrigated with Saline -Foul Odor after Cleansing No -Negative Pressure Wound Therapy N/A -Primary Dressing Applied Mepilex Border, NonAdherent Contact Layer, Promogran -Mepilex Border 2 -Promogran 1 Right -Tubular Bandage Single Layer -Size of Tubigrip Used Size E -Size E ($) 2 Left -Lotion applied to leg before No compression wrap -Tubular Bandage Single Layer -Size of Tubigrip Used Size E -Size E ($) 2 Treatment Response Procedure Tolerated Well Pain Scale: 0-10 Numeric Is Patient Pain Free? Yes WC - Visit Discharge Discharge Condition Stable Ambulatory Status Ambulatory,Cane Transportation Private Auto Accompanied by Medication Reconcilliation completed & Yes provided to patient/care provider Clinical Summary of Care Provided Yes Charges/Coding Visit Charges Office Visits / Consults: 57985 OV L3 New Procedures Integumentary 111xxx-113xx: [id number] Lenore subq tissue 20 sq cm/< Assessment/Plan Assessment/Plan (1) Ulcer of right lower extremity: CODE(S): L97.919 - Non-pressure chronic ulcer of unspecified part of right lower leg with unspecified severity (2) Type 2 diabetes mellitus: CODE(S): E11.9 - Type 2 diabetes mellitus without complications (3) Lower extremity edema: CODE(S): R60.0 - Localized edema PLAN: Plan Patient has chronic right lower extremity ulceration complicated by lower extremity edema and diabetes. Will apply slightly moistened pomogran to the wound bed, cover with adaptic, then foam dressing. Change dressings daily or more often as needed to keep clean and dry. With dressing changes, gently wash the area with antibacterial soap, rinse with water/sterile saline, and pat to dry. Will utilize tubigrips for compression. Patient was instructed to elevate his legs when resting/sleeping and avoid prolonged idle sitting/standing with legs dependent. Will obtain venous and arterial studies. More likely venous disease contributing to his presentation. We discussed the importance of good glycemic control to support wound healing. He will return to clinic in 2 weeks as I am out next week.
--- NOTE | 2022-11-15 12:23 | PN.PCM_ITS ---
History of Present Illness Date of Service: 11/15/22 Chief Complaint: RLE wound History of Wound: Patient presents today for evaluation of RLE wound. He is accompanied to this appt by his who is a retired nurse. This wound has been present for 4-5 weeks, no obvious provocation/trauma to the area. It started as a blister. His states she has been doing her best to care for it at home with wet to dry dressings, but she reports he does not tolerate dressing changes very well. He has taken doxycycline and keflex in the past few weeks to address possible infection. Currently, no significant redness, focal swelling, foul odor, N/V, F/C. She notes there is mild-moderate serous drainage. He has had multiple recurrent wounds which similarly started as blisters on his bilateral shins/calves. They tend to heal up with care at home in a couple weeks but this one seems more persistent. 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 He had arterial studies performed in 2019 which showed only small vessel disease. He has not had any venous studies. He does have bilateral lower extremity edema, he wears nonmeasured compression stockings. He has diabetes, reportedly under decent control at this time (A1c in May 5.8). Subjective Subjective Wound is improving. His is doing his dressings changes and reports no difficulties. She does note a new blister formed at the lateral aspect of R calf, she states there has been some drainage from that and wonders what to do if it fully ruptures. No new or worsening pain, redness, drainage, swelling. No N/V, F/C. He initially wore the tubigrips provided, but found that they rolled up under his foot which was very uncomfortable so stopped wearing them. He is scheduled for vascular studies 11/16. Objective Data Objective Data Vital Signs: Vital Signs Temp Pulse Resp BP 96.0 F L 81 16 129/85 H 11/02/22 10:00 11/02/22 10:00 11/02/22 10:11/02/22 10:00 Weight: 294 lb Body Mass Index (BMI) 46.0 Charges/Coding Procedures Integumentary 111xxx-113xx: 15922 Lenore subq tissue 20 sq cm/< Physical Exam Const alert, oriented x3 and no apparent distress General Appearance: cooperative Nutritional Appearance: obese centrally obese Resp normal respiratory effort, no retractions and no use of accessory muscles Extremity Extremity Narrative: Bilateral lower extremity edema; appropriate warmth, DP/PT pulses diminished to palpation bilaterally Skin Wounds: wounds noted Wound Narrative: R medial mckee/calf wound with significant adherent slough and devitalized tissue. No significant erythema, focal swelling, purulent drainage, warmth. Scattered scars from prior wounds visible bilateral lower legs. Hemosiderin deposition/lipodermatosclerosis noted bilateral lower legs. Scattered, small fluid blisters noted bilaterally. Psych mental status grossly normal Appearance: grossly normal Attitude: calm Activity / Motor Behavior: appropriate eye contact Debridement Note Debridement Note Wound debrided: R lower leg Laterality: Right Type of Debridement: Excisional debridement Anesthesia Used: 5% Lidocaine Gel Depth: Down to and including healthy tissue Percentage of wound debrided: 100 Instrument Used: 5mm curette Tissue Removed: slough, devitalized tissue Amount of bleeding with debridement: Mild Bleeding Controlled with: Pressure Patient tolerated procedure: Patient tolerated procedure well Post-Debridement Measurements and Additional Note: Post-Debridement Measurements/Treatment - Nurse 1 - General Ulcer Assessment Start: 11/02/22 10:00 Freq: Status: Active Protocol: VERONICA.REID Activity Type Activity Date Activity User E-sign Co-sign Detail Recorded Client Recorded Date Recorded By Document 11/02/22 10:00 APOLLO [id number] 11/02/22 10:11 APOLLO 11/02/22 10:00 - Today's Visit Information Type of service Initial Visit Arrival Mode Ambulatory,Cane Patient Identification Verified (Name & Yes ) Patient Requires Transmission-Based No Precautions Height and Weight Height 5 ft 7 in Weight 294 lb Weight in Pounds 294.0 lbs Weight Measurement Method Estimated by Patient Body Mass Index (BMI) 46.0 BMI Classification Obese BSA - Gladis 2.38 Vital Signs Temperature (97.8 F-99.1 F) 96.0 F L Temperature Source Temporal Pulse Rate (60-100) 81 Pulse Location Monitor Respiratory Rate (12-18) 16 Respiratory rate source Observation Blood Pressure (90/60-120/80) 129/85 H Blood Pressure Mean (mm Hg) 99 Source Manual Position Semi-Fowlers Blood Pressure Location Left Arm History Since Last Visit- (Skip if this is Patient's initial visit) Left Footwear Regular Shoe Right Footwear Regular Shoe Pain Scale: 0-10 Numeric Is Patient Pain Free? Yes Lower Extremity Assessment/ Foot Assessment/ Toe Nail Assessment Right -Posterior Tibial Palpable Yes -Posterior Tibial Doppler Monophasic -Dorsalis Pedis Palpable Yes -Dorsalis Pedis Doppler Monophasic -Extremity Color Hyperpigmented -Hair Growth on Legs Yes -Hair Growth on Toes No -Temperature of Extremity Warm -Capillary Refill Less than 3 Seconds -Dependent Rubor Yes -Other Deformity No -Prior Foot Ulcer No -Charcot Joint No -Prior Amputation No -Thick Yes -Discolored Yes -Deformed Yes -Improper Length & Hygeine No Left -Posterior Tibial Palpable Yes -Posterior Tibial Doppler Monophasic -Dorsalis Pedis Palpable Yes -Dorsalis Pedis Doppler Monophasic -Other Deformity No -Prior Foot Ulcer No -Charcot Joint No -Prior Amputation No -Thick No -Discolored Yes -Deformed Yes -Improper Length & Hygeine No Neuropathy Assessment Feet - Top Side and Bottom <Entered> (a) Communication Assessment Preferred language Kyr[place]z Special Needs Nanny Required No Able to Read Yes Able to Write Yes Communication Tools None Caregiver Communication Skills No Impairment Impairment Right Hearing Abillity Normal Left Hearing Abillity Normal Visual Assistive Devices Glasses Teaching Assessment Preferences Verbal,Written, Audio/Visual, Demonstration Barriers to Learning None Readiness To Learn Good Willingness to Engage in Self Management Med Activies Readiness to Engage in Self Management Med Activities Anxiety Level Calm Cooperation Cooperative Perception Coherent Interest in Health Problem Asks Questions Education Importance Acknowledges Need Does Patient Smoke tobacco or other No substances Is Patient Diabetic Yes Functional Assessment Recent Decline in Ability to Perform Ambulation Assistive Device With Patient Yes List Device(s) with Patient cane Culture/Temple/Classroom Technology Technician Cultural/Temple Needs that may affect No Treatment Plan Would you allow our hospital graphics artist to No meet you for the purpose of spiritual/ emotional support? Classroom Technology Technician to contact place of bahai No Teaching: Wound Center [facility] Orientation/ Contacting Physician -Person Taught Patient,Family -Teaching Method Discussion, Demonstration -Response to teaching Return demonstration, Verbalize understanding (a) 1 - positive 2 - positive 3 - positive 4 - positive - Nurse 1 - General Ulcer Measurement Start: 11/02/22 10:00 Freq: Status: Active Protocol: Activity Type Activity Date Activity User E-sign Co-sign Detail Recorded Client Recorded Date Recorded By Document 11/02/22 10:00 APOLLO [id number] 11/02/22 10:11 APOLLO 11/02/22 10:00 Wound Center Nurse 1 1-right medial leg -Combined with other wound No -Current Size (cm) - Length 2.5 -Current Size (cm) - Width 1.0 -Current Size (cm) - Depth 0.1 -Total Square Cm 2.50 -Photo Taken Yes -Epithelialization Small 1-33% -Tunneling No -Undermining/Tunneling No -Circular Undermining No -Classification - Jackson Grading ( Grade 2 Diabetic Ulcer) -Exudate Amt None Present -Wound Margin Flat & Intact -Granulation Amt None Present (0 %) -Slough/Fibrin Yes -Necrosis Amt Large (67-100%) -Necrotic Tissue Type Adherent Slough -Structure Exposed N/A -Texture (Aileen-wound Skin Appearance) Assessed, Localized Edema -Moisture (Aileen-wound Skin Appearance) Assessed -Color (Aileen-wound Skin Appearance) Assessed, Hemosiderin Staining -Temperature (Aileen-wound Skin No Abnormality Appearance) (Pt Warm) -Tenderness on Palpation (Aileen-wound No Skin Appearance) -Ulcer Cleansing Wound Cleanser -Foul Odor after Cleansing No -Anesthetic Used 5% Lidocaine Gel Lower Limb Edema Present Yes Right Calf (cm) 44.6 Right Ankle (cm) 25.0 Left Calf (cm) 45.0 Left Ankle (cm) 24.2 WC - Nurse 2 - General Ulcer CM Notes Start: 11/02/22 10:00 Freq: Status: Active Protocol: Activity Type Activity Date Activity User E-sign Co-sign Detail Recorded Client Recorded Date Recorded By Document 11/02/22 16:28 ANTOINETTE [id number] 11/02/22 16:29 ANTOINETTE 11/02/22 16:28 Wound Center Nurse 2 1-right medial leg -Time 10:30 -Correct Patient Yes -Correct Side, Site, Position Yes -Correct Procedure Yes -Procedure Performed Yes -Type of Procedure Debridement -Clinical Debridement Subcutaneous -Tissue Removed Subcutaneous -Post Debridement (cm) - Length 1.2 -Post Debridement (cm) - Width 1.1 -Post Debridement (cm) - Depth 0.2 -Total Square (Post) (cm) 1.32 -Area of Debridement (cm) - Length 1.2 -Area of Debridement (cm) - Width 1.1 -Total Square (Area) (cm) 1.32 -Tunneling No -Undermining/Tunneling No -Circular Undermining No -Wound/Ulcer Outcome Not Healed -Ulcer Cleansing Rinsed/ Irrigated with Saline -Foul Odor after Cleansing No -Bioengineered Tissue No -Bleeding Controlled with Pressure -Treatment Response Procedure Tolerated Well -Debridement - Subq, 1st 20sq cm Yes Pain Scale: 0-10 Numeric Is Patient Pain Free? Yes WC - Nurse 3 - General Ulcer D/C NN Start: 11/02/22 10:00 Freq: Status: Active Protocol: Activity Type Activity Date Activity User E-sign Co-sign Detail Recorded Client Recorded Date Recorded By Document 11/02/22 10:57 MW [id number] 11/02/22 10:59 MW Edit Result 11/02/22 10:57 MW (1) [id number] 11/02/22 11:01 MW (1) 1-right medial leg - Mepilex Border 1 => 2 11/02/22 10:57 Wound Care Center Nurse 3 1-right medial leg -Ulcer Cleansing Rinsed/ Irrigated with Saline -Foul Odor after Cleansing No -Negative Pressure Wound Therapy N/A -Primary Dressing Applied Mepilex Border, NonAdherent Contact Layer, Promogran -Mepilex Border 2 -Promogran 1 Right -Tubular Bandage Single Layer -Size of Tubigrip Used Size E -Size E ($) 2 Left -Lotion applied to leg before No compression wrap -Tubular Bandage Single Layer -Size of Tubigrip Used Size E -Size E ($) 2 Treatment Response Procedure Tolerated Well Pain Scale: 0-10 Numeric Is Patient Pain Free? Yes - Visit Discharge Discharge Condition Stable Ambulatory Status Ambulatory,Cane Transportation Private Auto Accompanied by Medication Reconcilliation completed & Yes provided to patient/care provider Clinical Summary of Care Provided Yes Assessment/Plan Assessment/Plan (1) Ulcer of right lower extremity: CODE(S): L97.919 - Non-pressure chronic ulcer of unspecified part of right lower leg with unspecified severity (2) Type 2 diabetes mellitus: CODE(S): E11.9 - Type 2 diabetes mellitus without complications (3) Lower extremity edema: CODE(S): R60.0 - Localized edema PLAN: Plan Patient has chronic right lower extremity ulceration complicated by lower extremity edema and diabetes. Continue to apply slightly moistened pomogran to the wound bed, cover with adaptic, then foam dressing. Change dressings daily or more often as needed to keep clean and dry. With dressing changes, gently wash the area with antibacterial soap, rinse with water/sterile saline, and pat to dry. Regarding the unruptured blister, provided with some fibracol to apply in case it does rupture. Dry dressing while unruptured. Will switch to measured compression stockings instead, prescription provided. Tubigrips as tolerated until stockings are obtained. Continue to elevate legs at all resting times. Arterial and venous studies scheduled for 11/16/22, will discuss results next week. Emphasized the importance of good glycemic control to support wound healing. He will return to clinic in 1 week.
--- NOTE | 2022-11-16 09:41 | ART_ITS ---
Reason For Study: Wound Procedure A bilateral lower extremity continuous wave Doppler with analog waveform analysis,segmental pressures,and ankle brachial indexes without exercise. Took arm BP's multiple times; >15mmHg difference. Left Segmental Pressures Left brachial= 114mmHg. Left posterior tibial artery = 171mmHg. Left dorsalis pedis artery = 195mmHg. Left digit = 110 mmHg. Right Segmental Pressures Right brachial= 141mmHg. Right posterior tibial artery = 157mmHg. Right dorsalis pedis artery = 158mmHg. Right digit = 87 mmHg. Indices The right ankle brachial index by the posterior tibial artery is 1.11. The right ankle brachial index by the dorsalis pedis is 1.12. The right digital-brachial index is 0.62. The left ankle brachial index by the posterior tibial artery is 1.21. The left ankle brachial index by the dorsalis pedis is 1.38. The left digital-brachial index is 0.78. VL/Lower Ext Art Exam w/o Exercis Interpretation Summary Right FELTON 1.12, normal. Doppler/PVR waveforms of the right leg normal at rest. TBI diminished, pedal/digit disease vs spasm Left FELTON 1.38, normal. TBI and Doppler/PVR waveforms of the left leg normal at rest. Ordering Physician: Dalia Lazo Referring Physician: Krishna Reynolds Performed By: Alyson Jacobsen RDCS/RVT
--- NOTE | 2022-11-16 09:41 | VDLE_ITS ---
Reason For Study: Wound, Pain RIGHT LEFT CFV is compressible, spontaneous, phasic, GSV is normal. competent and demonstrates normal CFV is compressible, spontaneous, phasic, augmentation. competent, and demonstrates normal FV is compressible, spontaneous, phasic, augmentation. competent and demonstrates normal FV is compressible, spontaneous, phasic, augmentation. competent and demonstrates normal POP V is compressible, spontaneous, phasic, augmentation. competent and demonstrates normal POP V is compressible, spontaneous, phasic, augmentation. competent and demonstrates normal T/P Trunk is compressible. augmentation. PTV is compressible. T/P Trunk is compressible. RT PerV is compressible. PTV is compressible. SFJ is competent and measures 0.88cm x 0.82 LT PerV is compressible. cm. SFJ is competent and measures 0.60cm x 0.62 GSV proximal thigh measures 0.55cm x 0.63 cm. cm. GSV at knee measures 0.39cm x 0.37 cm. GSV proximal thigh measures 0.44cm x 0.41 cm. GSV INCOMPETENT throughout for greater than GSV at knee measures 0.35cm x 0.37 cm. 0.5 seconds. GSV is competent throughout. SSV proximal calf is INCOMPETENT for greater SSV at junction is competent and measures than 0.5 seconds and measures 0.19cm x 0.17 0.19cm x 0.19 cm. cm. Procedure This is a venous duplex using B-mode, color flow and spectral Doppler. Exam performed in department. A preliminary report was called and/or faxed to Dalia MONTGOMERY. VL/Venous Duplex US - Marquez Extrem Interpretation Summary Deep veins of the bilateral lower extremities are patent and compressible segme ntally. There is no evidence of bilateral lower extremity deep vein thrombosis. The bilateral great saphenous veins appear patent and compressible segmentally. Positive for reflux in the right great saphenous vein throughout, right small s aphenous vein Ordering Physician: Dalia Lazo Referring Physician: Krishna Reynolds Performed By: Alyson Jacobsen, SHIRLEY, RVT
[2022-11-22 13:44] VITALS: BP 111/69; PULSE 79; RESP 22; TEMP 36.4; BMI 46.0
--- NOTE | 2022-11-23 00:19 | PCM.WC.PN ---
History of Present Illness Date of Service: 11/23/22 Chief Complaint: RLE wound History of Wound: Patient presents today for evaluation of RLE wound. He is accompanied to this appt by his who is a retired nurse. This wound has been present for 4-5 weeks, no obvious provocation/trauma to the area. It started as a blister. His states she has been doing her best to care for it at home with wet to dry dressings, but she reports he does not tolerate dressing changes very well. He has taken doxycycline and keflex in the past few weeks to address possible infection. Currently, no significant redness, focal swelling, foul odor, N/V, F/C. She notes there is mild-moderate serous drainage. He has had multiple recurrent wounds which similarly started as blisters on his bilateral shins/calves. They tend to heal up with care at home in a couple weeks but this one seems more persistent. 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 He had arterial studies performed in 2019 which showed only small vessel disease. He has not had any venous studies. He does have bilateral lower extremity edema, he wears nonmeasured compression stockings. He has diabetes, reportedly under decent control at this time (A1c in May 5.8). Subjective Subjective Wound is significantly improved, very nearly healed this week. Lower extremity edema is also significantly improved with compression. No new wounds, new or worsening drainage, erythema, N/V, F/C. Objective Data Objective Data Vital Signs: Vital Signs Temp Pulse Resp BP 97.5 F L 79 22 H 111/69 11/22/22 13:44 11/22/22 13:44 11/22/22 13:44 11/22/22 13:44 Weight: 294 lb Body Mass Index (BMI) 46.0 Charges/Coding Visit Charges Office Visits / Consults: 33311 OV L3 New Physical Exam Const alert, oriented x3 and no apparent distress General Appearance: cooperative Nutritional Appearance: obese centrally obese Resp normal respiratory effort, no retractions and no use of accessory muscles Extremity Extremity Narrative: Bilateral lower extremity edema significantly improved from last week, trace edema at most this week Skin Wounds: wounds noted Wound Narrative: R medial mckee/calf wound is very small today, nearly healed. Scattered scars from prior wounds visible bilateral lower legs. Hemosiderin deposition/lipodermatosclerosis noted bilateral lower legs. Only 1 remaining fluid-filled blister and this is resolving. Psych mental status grossly normal Appearance: grossly normal Attitude: calm Activity / Motor Behavior: appropriate eye contact Debridement Note Debridement Note No debridement was completed: No debridement was completed today Post-Debridement Measurements and Additional Note: Post-Debridement Measurements/Treatment VERONICA - Nurse 1 - General Ulcer Assessment Start: 11/02/22 10:00 Freq: Status: Active Protocol: KAYLEIGH Activity Type Activity Date Activity User E-sign Co-sign Detail Recorded Client Recorded Date Recorded By Document 11/02/22 10:00 JF [id number] 11/02/22 10:11 JF Document 11/22/22 13:44 DL [id number] 11/22/22 13:48 DL 11/02/22 11/22/22 10:00 13:44 - Today's Visit Information Type of service Initial Visit Follow-up Visit (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/DIRECTOR MED[employer] SCIENCE ) Arrival Mode Ambulatory,Cane Ambulatory, Walker Transfer Assistance None Patient Identification Verified (Name & Yes Yes ) Patient Requires Transmission-Based No No Precautions Finger Stick Blood Sugar(mg/dl) (if 103 indicated): Blood Sugar Stated by Patient Height and Weight Height 5 ft 7 in Weight 294 lb Weight in Pounds 294.0 lbs Weight Measurement Method Estimated by Patient Body Mass Index (BMI) 46.0 46.0 BMI Classification Obese Obese BSA - Gladis 2.38 Vital Signs Temperature (97.8 F-99.1 F) 96.0 F L 97.5 F L Temperature Source Temporal Temporal Pulse Rate (60-100) 81 79 Pulse Location Monitor Monitor Respiratory Rate (12-18) 16 22 H Respiratory rate source Observation Observation Blood Pressure (90/60-120/80) 129/85 H 111/69 Blood Pressure Mean (mm Hg) 99 83 Source Manual Position Semi-Fowlers Blood Pressure Location Left Arm History Since Last Visit- (Skip if this is Patient's initial visit) Have you changed medications since your No last visit? Any new allergies or adverse reactions No Had a fall/change in ADL's that may No increase risk of falls Signs or symptoms of abuse and/or No neglect since last visit Have you been in the hospital since your No last visit? Has dressing in place as prescribed Yes Has compression in place as prescribed Yes Has offloadiing in place as prescribed N/A Experienced any changes in pain level or No management Left Footwear Regular Shoe Right Footwear Regular Shoe Pain Scale: 0-10 Numeric Is Patient Pain Free? Yes Yes Lower Extremity Assessment/ Foot Assessment/ Toe Nail Assessment Right -Posterior Tibial Palpable Yes -Posterior Tibial Doppler Monophasic -Dorsalis Pedis Palpable Yes -Dorsalis Pedis Doppler Monophasic -Extremity Color Hyperpigmented -Hair Growth on Legs Yes -Hair Growth on Toes No -Temperature of Extremity Warm -Capillary Refill Less than 3 Seconds -Dependent Rubor Yes -Other Deformity No -Prior Foot Ulcer No -Charcot Joint No -Prior Amputation No -Thick Yes -Discolored Yes -Deformed Yes -Improper Length & Hygeine No Left -Posterior Tibial Palpable Yes -Posterior Tibial Doppler Monophasic -Dorsalis Pedis Palpable Yes -Dorsalis Pedis Doppler Monophasic -Other Deformity No -Prior Foot Ulcer No -Charcot Joint No -Prior Amputation No -Thick No -Discolored Yes -Deformed Yes -Improper Length & Hygeine No Neuropathy Assessment Feet - Top Side and Bottom <Entered> (a) Communication Assessment Preferred language [place] Application Development Liaison Required No Able to Read Yes Able to Write Yes Communication Tools None Caregiver Communication Skills No Impairment Impairment Right Hearing Abillity Normal Left Hearing Abillity Normal Visual Assistive Devices Glasses Teaching Assessment Preferences Verbal,Written, Audio/Visual, Demonstration Barriers to Learning None Readiness To Learn Good Willingness to Engage in Self Management Med Activies Readiness to Engage in Self Management Med Activities Anxiety Level Calm Cooperation Cooperative Perception Coherent Interest in Health Problem Asks Questions Education Importance Acknowledges Need Does Patient Smoke tobacco or other No substances Is Patient Diabetic Yes Functional Assessment Recent Decline in Ability to Perform Ambulation Assistive Device With Patient Yes List Device(s) with Patient cane Culture/Jewish/Visual Basic Developer Cultural/Jewish Needs that may affect No Treatment Plan Would you allow our hospital guest services to No meet you for the purpose of spiritual/ emotional support? Visual Basic Developer to contact place of protestant No Teaching: Wound Center [facility] Orientation/ Contacting Physician -Person Taught Patient,Family -Teaching Method Discussion, Demonstration -Response to teaching Return demonstration, Verbalize understanding (a) 1 - positive 2 - positive 3 - positive 4 - positive - Nurse 1 - General Ulcer Measurement Start: 11/02/22 10:00 Freq: Status: Active Protocol: Activity Type Activity Date Activity User E-sign Co-sign Detail Recorded Client Recorded Date Recorded By Document 11/02/22 10:00 JF [id number] 11/02/22 10:11 JF Document 11/22/22 13:44 DL [id number] 11/22/22 13:48 DL 11/02/22 11/22/22 10:00 13:44 Wound Center Nurse 1 1-right medial leg -Combined with other wound No -Current Size (cm) - Length 2.5 0.1 -Current Size (cm) - Width 1.0 0.1 -Current Size (cm) - Depth 0.1 0.1 -Total Square Cm 2.50 0.01 -Photo Taken Yes -Epithelialization Small 1-33% -Tunneling No -Undermining/Tunneling No -Circular Undermining No -Classification - Jackson Grading ( Grade 2 Diabetic Ulcer) -Exudate Amt None Present Small -Exudate Type Serosanguineous -Wound Margin Flat & Intact Flat & Intact -Granulation Amt None Present (0 Large (67-100%) %) -Granulation Quality [place] -Slough/Fibrin Yes -Necrosis Amt Large (67-100%) None Present (0 %) -Necrotic Tissue Type Adherent Slough -Structure Exposed N/A N/A -Texture (Aileen-wound Skin Appearance) Assessed, Scarring Localized Edema -Moisture (Aileen-wound Skin Appearance) Assessed No Abnormality -Color (Aileen-wound Skin Appearance) Assessed, Hemosiderin Hemosiderin Staining Staining -Temperature (Aileen-wound Skin No Abnormality No Abnormality Appearance) (Pt Warm) (Pt Warm) -Tenderness on Palpation (Aileen-wound No No Skin Appearance) -Ulcer Cleansing Wound Cleanser Rinsed/ Irrigated with Saline -Foul Odor after Cleansing No No -Anesthetic Used 5% Lidocaine Gel Lower Limb Edema Present Yes Right Calf (cm) 44.6 43 Right Ankle (cm) 25.0 24.3 Left Calf (cm) 45.0 43 Left Ankle (cm) 24.2 23.9 WC - Nurse 2 - General Ulcer CM Notes Start: 11/02/22 10:00 Freq: Status: Active Protocol: Activity Type Activity Date Activity User E-sign Co-sign Detail Recorded Client Recorded Date Recorded By Document 11/02/22 16:28 PL [id number] 08/11/23 16:29 PL Document 11/15/22 17:27 PL [id number] 11/15/22 17:28 PL 11/02/22 11/15/22 16:28 17:27 Wound Center Nurse 2 1-right medial leg -Time 10:30 13:56 -Correct Patient Yes Yes -Correct Side, Site, Position Yes Yes -Correct Procedure Yes Yes -Procedure Performed Yes Yes -Type of Procedure Debridement Debridement -Clinical Debridement Subcutaneous Subcutaneous -Tissue Removed Subcutaneous Subcutaneous -Post Debridement (cm) - Length 1.2 0.9 -Post Debridement (cm) - Width 1.1 0.5 -Post Debridement (cm) - Depth 0.2 0.1 -Total Square (Post) (cm) 1.32 0.45 -Area of Debridement (cm) - Length 1.2 0.9 -Area of Debridement (cm) - Width 1.1 0.5 -Total Square (Area) (cm) 1.32 0.45 -Tunneling No No -Undermining/Tunneling No No -Circular Undermining No No -Wound/Ulcer Outcome Not Healed Not Healed -Ulcer Cleansing Rinsed/ Rinsed/ Irrigated with Irrigated with Saline Saline -Foul Odor after Cleansing No No -Bioengineered Tissue No No -Bleeding Controlled with Pressure Pressure -Treatment Response Procedure Procedure Tolerated Well Tolerated Well -Debridement - Subq, 1st 20sq cm Yes Yes Pain Scale: 0-10 Numeric Is Patient Pain Free? Yes Yes WC - Nurse 3 - General Ulcer D/C NN Start: 11/02/22 10:00 Freq: Status: Active Protocol: Activity Type Activity Date Activity User E-sign Co-sign Detail Recorded Client Recorded Date Recorded By Document 11/02/22 10:57 MW [id number] 11/02/22 10:59 MW Edit Result 11/02/22 10:57 MW (1) [id number] 11/02/22 11:01 MW Document 11/15/22 14:14 MW [id number] 11/15/22 14:16 MW Document 11/22/22 14:14 BMF [id number] 11/22/22 14:15 BMF (1) 1-right medial leg - Mepilex Border 1 => 2 11/02/22 11/15/22 11/22/22 10:57 14:14 14:14 Wound Care Center Nurse 3 1-right medial leg -Ulcer Cleansing Rinsed/ Rinsed/ Rinsed/ Irrigated with Irrigated with Irrigated with Saline Saline Saline -Foul Odor after Cleansing No No No -Negative Pressure Wound Therapy N/A -Primary Dressing Applied Mepilex Border, Mepilex Border, C Hydrogel ($), NonAdherent Promogran Mepilex Border Contact Layer, Promogran -Other Covering FIBRICOL TO OTHER AREAS -Mepilex Border 2 1 1 -Promogran 1 1 BLE -Tubular Bandage Single Layer -Size of Tubigrip Used Size D -Size D ($) 2 Right -Tubular Bandage Single Layer Single Layer -Size of Tubigrip Used Size E Size D -Size D ($) 1 -Size E ($) 2 Left -Lotion applied to leg before No compression wrap -Tubular Bandage Single Layer Single Layer -Size of Tubigrip Used Size E Size D -Size D ($) 1 -Size E ($) 2 Treatment Response Procedure Procedure Procedure Tolerated Well Tolerated Well Tolerated Well Pain Scale: 0-10 Numeric Is Patient Pain Free? Yes Yes Yes WC - Visit Discharge Discharge Condition Stable Stable Stable Ambulatory Status Ambulatory,Cane Wheelchair Ambulatory, Walker Transportation Private Auto Private Auto Private Auto Accompanied by Medication Reconcilliation completed & Yes provided to patient/care provider Clinical Summary of Care Provided Yes Assessment/Plan Assessment/Plan (1) Ulcer of right lower extremity: CODE(S): L97.919 - Non-pressure chronic ulcer of unspecified part of right lower leg with unspecified severity (2) Type 2 diabetes mellitus: CODE(S): E11.9 - Type 2 diabetes mellitus without complications (3) Lower extremity edema: CODE(S): R60.0 - Localized edema PLAN: Plan Wound is nearly healed. No debridement was performed today. Apply collagen hydrogel to the area of the wound and continue to cover to pad/protect for another week. The blister is resolving, may continue to apply fibracol if preferred or may continue to cover with dry gauze to pad/protect. Continue with tubigrips for compression. I encourage them to get measured for compression stockings as prescribed. We discussed the results of the arterial and venous studies. Arterial studies were essentially normal, mildly decreased R TBI secondary to his history of diabetes. 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 I recommend continued conservative treatment with compression, should wound recur then may consider ablation. He will return to clinic in 1 week, I anticipate wound will be healed at that time if this trajectory continues.
== END 2022-11-22 23:59 | disposition home or self-care (01) ==
LOC: WC 13:45
PROVIDERS: PCP Internal Medicine; Referring Provider Internal Medicine; Visit Provider Physician Assistant
DX: E11.622 Type 2 diabetes mellitus with other skin ulcer (principal); Z89.421 Acquired absence of other right toe(s); Z89.422 Acquired absence of other left toe(s); L97.919 Non-pressure chronic ulcer of unspecified part of right lower leg with unspecified severity; I11.0 Hypertensive heart disease with heart failure; I50.32 Chronic diastolic (congestive) heart failure; I48.0 Paroxysmal atrial fibrillation; Z79.4 Long term (current) use of insulin; Z79.82 Long term (current) use of aspirin; E78.00 Pure hypercholesterolemia, unspecified; I25.10 Atherosclerotic heart disease of native coronary artery without angina pectoris; Z79.02 Long term (current) use of antithrombotics/antiplatelets; K21.9 Gastro-esophageal reflux disease without esophagitis; Z79.899 Other long term (current) drug therapy; R60.0 Localized edema; S80.821A Blister (nonthermal), right lower leg, initial encounter; X58.XXXA Exposure to other specified factors, initial encounter; R93.89 Abnormal findings on diagnostic imaging of other specified body structures; M79.661 Pain in right lower leg; M79.662 Pain in left lower leg; R09.89 Other specified symptoms and signs involving the circulatory and respiratory systems
CPT/HCPCS: 11042; 93923; 93970; 99213; G0463

== ENCOUNTER 2022-11-29 13:25 | Outpatient (RCR) | payer MEDICARE, OTHER, SELFPAY ==
[2020-12-01 05:55] VITALS: BMI 45.8
[2022-11-23 00:21] VITALS: BP 111/69; PULSE 79; RESP 22; TEMP 36.4; BMI 46.0
--- NOTE | 2022-11-29 08:43 | PCM.WC.PN ---
History of Present Illness Date of Service: 11/29/22 Chief Complaint: RLE wound History of Wound: Patient presents today for evaluation of RLE wound. He is accompanied to this appt by his who is a retired nurse. This wound has been present for 4-5 weeks, no obvious provocation/trauma to the area. It started as a blister. His states she has been doing her best to care for it at home with wet to dry dressings, but she reports he does not tolerate dressing changes very well. He has taken doxycycline and keflex in the past few weeks to address possible infection. Currently, no significant redness, focal swelling, foul odor, N/V, F/C. She notes there is mild-moderate serous drainage. He has had multiple recurrent wounds which similarly started as blisters on his bilateral shins/calves. They tend to heal up with care at home in a couple weeks but this one seems more persistent. 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 He had arterial studies performed in 2019 which showed only small vessel disease. He has not had any venous studies. He does have bilateral lower extremity edema, he wears nonmeasured compression stockings. He has diabetes, reportedly under decent control at this time (A1c in May 5.8). Subjective Subjective His wound is healed this week. Lower extremity edema remains resolved with adequate compression. No new wounds or areas of skin breakdown/blistering. Objective Data Objective Data Vital Signs: Vital Signs Temp Pulse Resp BP 97.5 F L 79 22 H 111/69 11/23/22 00:21 11/23/22 00:21 11/23/22 00:21 11/23/22 00:21 Weight: 294 lb Body Mass Index (BMI) 46.0 Charges/Coding Visit Charges Office Visits / Consults: 30827 OV L3 Est Physical Exam Const alert, oriented x3 and no apparent distress General Appearance: cooperative Nutritional Appearance: obese centrally obese Resp normal respiratory effort, no retractions and no use of accessory muscles Extremity Extremity Narrative: Bilateral lower extremity edema resolved with compression. Skin Wounds: wounds noted Wound Narrative: R medial mckee/calf wound is healed today. Scattered scars from prior wounds visible bilateral lower legs. Hemosiderin deposition/lipodermatosclerosis noted bilateral lower legs. Psych mental status grossly normal Appearance: grossly normal Attitude: calm Activity / Motor Behavior: appropriate eye contact Debridement Note Debridement Note No debridement was completed: No debridement was completed today Assessment/Plan Assessment/Plan (1) Ulcer of right lower extremity: CODE(S): L97.919 - Non-pressure chronic ulcer of unspecified part of right lower leg with unspecified severity (2) Type 2 diabetes mellitus: CODE(S): E11.9 - Type 2 diabetes mellitus without complications (3) Lower extremity edema: CODE(S): R60.0 - Localized edema PLAN: Plan RLE wound is healed today. He has been measured for compression stockings and they are on order, but do not anticipate receiving them for possibly 2 more weeks. We will provide extra tubigrips today for him to wear until he receives the stockings. I strongly encourage continued daily compression to manage his edema and prevent wound recurrence. He will follow-up with me regarding his venous insufficiency in the vascular office in 2 months to ensure continued adequate resolution of symptoms with compression. He will return to the wound clinic as needed.
[2022-11-29 13:29] VITALS: BP 128/70; PULSE 77; RESP 16; TEMP 35.8; BMI 46.0
== END 2022-11-29 16:54 | disposition home or self-care (01) ==
LOC: WC 13:25
PROVIDERS: PCP Internal Medicine; Referring Provider Internal Medicine; Visit Provider Physician Assistant
DX: Z09 Encounter for follow-up examination after completed treatment for conditions other than malignant neoplasm (principal); E11.9 Type 2 diabetes mellitus without complications; R60.0 Localized edema
CPT/HCPCS: 99213; G0463

== ENCOUNTER → 2022-11-30 | Outpatient (CLI) | payer MEDICARE, OTHER, SELFPAY ==
[2020-12-01 05:55] VITALS: BMI 45.8
[2022-11-30 08:46] LABS: Anion Gap 5 (5-15); BUN 17 mg/dL (7-18); BUN/Creat Ratio 15.2 RATIO (10-20); Chloride 104 mmol/L (98-107); Cholesterol 225 mg/dL (200); Creatinine, Serum 1.12 mg/dL (0.70-1.30); EST Glomerular Filtration Rate 68 mL/min (>60); Est Glom Filt Rate - Afr Amer 83 mL/min (>60); Glucose 107 mg/dL (74-106); High Density Lipoprotein 42 mg/dL; Potassium 4.4 mmol/L (3.5-5.1); Sodium Level 138 mmol/L (136-145); Triglycerides 144 mg/dL; Very Low Density Lipoprotein 29 mg/dL (5-40)
[2022-11-30 09:10] LABS: Hemoglobin A1c 5.9 % (3.8-5.6)
== END | disposition home or self-care (01) ==
PROVIDERS: PCP Internal Medicine; Referring Provider Internal Medicine; Visit Provider Internal Medicine
DX: E78.49 Other hyperlipidemia (principal); E11.40 Type 2 diabetes mellitus with diabetic neuropathy, unspecified; Z79.4 Long term (current) use of insulin
CPT/HCPCS: 36415; 80048; 80061; 83036

== ENCOUNTER 2022-12-20 08:00 | Outpatient (RCR) | payer SELFPAY ==
[2020-12-01 05:55] VITALS: BMI 45.8
[2022-11-23 00:28] VITALS: BP 127/75; PULSE 78; RESP 16; TEMP 36.1
== END 2022-12-22 23:59 ==
LOC: CR 08:00
PROVIDERS: PCP Internal Medicine; Referring Provider Internal Medicine; Visit Provider Internal Medicine
DX: Z00.00 Encounter for general adult medical examination without abnormal findings (principal)

== ENCOUNTER 2023-01-22 08:00 | Outpatient (RCR) | payer SELFPAY ==
[2020-12-01 05:55] VITALS: BMI 45.8
[2022-12-23 00:20] VITALS: BP 127/75; PULSE 78; RESP 16; TEMP 36.1
== END 2023-01-22 23:59 ==
LOC: CR 08:00
PROVIDERS: PCP Internal Medicine; Referring Provider Internal Medicine; Visit Provider Internal Medicine
DX: Z00.00 Encounter for general adult medical examination without abnormal findings (principal)

== ENCOUNTER → 2023-02-15 | Outpatient (CLI) | payer MEDICARE, OTHER, SELFPAY ==
[2020-12-01 05:55] VITALS: BMI 45.8
[2023-02-15 08:07] LABS: Hematocrit 47.7 % (40-54); Hemoglobin 15.6 g/dL (13.0-16.5); Mean Corp Hgb Conc 32.7 g/dL (32-36); Mean Corpuscular Hgb 30.2 pg (27.0-32.0); Mean Corpuscular Volume 92.3 fL (80-94); Mean Platelet Vol. 8.6 fl (6.2-12.0); Platelet Count 245 K/mm3 (150-450); RBC Distribution Width CV 13.5 % (11.6-14.6); RBC Distribution Width SD 46.6 fl (35.1-43.9); Red Blood Count 5.17 M/mm3 (4.6-6.2); White Blood Count 5.8 K/mm3 (4.4-11.0)
[2023-02-15 08:40] LABS: Albumin, Serum 3.2 g/dL (3.2-5.0); BUN 17 mg/dL (7-18); BUN/Creat Ratio 14.4 RATIO (10-20); Calcium,Total 8.9 mg/dL (8.5-10.1); Chloride 105 mmol/L (98-107); Creatinine, Serum 1.18 mg/dL (0.70-1.30); EST Glomerular Filtration Rate 64 mL/min (>60); Est Glom Filt Rate - Afr Amer 78 mL/min (>60); Glucose 75 mg/dL (74-106); Phosphorus 3.6 mg/dL (2.5-4.9); Potassium 4.2 mmol/L (3.5-5.1); Sodium Level 138 mmol/L (136-145)
[2023-02-15 09:16] LABS: PTHIN 152.6 pg/mL (18.4-80.1)
[2023-02-15 09:21] LABS: Vitamin D,25 Hydroxy 42.6 ng/mL
[2023-02-15 10:33] LABS: Protein, Urine (Random) < 6.0 mg/dL (<11.9)
== END | disposition home or self-care (01) ==
LOC: LAB 07:12
PROVIDERS: PCP Internal Medicine; Referring Provider Internal Medicine Nephrology; Visit Provider Internal Medicine Nephrology
DX: E21.3 Hyperparathyroidism, unspecified (principal); N18.31 Chronic kidney disease, stage 3a
CPT/HCPCS: 36415; 80069; 82306; 82570; 83970; 84156; 85027

== ENCOUNTER 2023-02-21 08:00 | Outpatient (RCR) | payer SELFPAY ==
[2020-12-01 05:55] VITALS: BMI 45.8
[2023-01-23 00:15] VITALS: BP 127/75; PULSE 78; RESP 16; TEMP 36.1
== END 2023-02-21 23:59 ==
LOC: CR 08:00
PROVIDERS: PCP Internal Medicine; Referring Provider Internal Medicine; Visit Provider Internal Medicine
DX: Z00.00 Encounter for general adult medical examination without abnormal findings (principal)

== ENCOUNTER 2023-03-19 09:54 | Outpatient (RCR) | payer MEDICARE, OTHER, SELFPAY ==
[2020-12-01 05:55] VITALS: BMI 45.8
[2023-03-19 10:04] VITALS: BP 123/69; PULSE 79; TEMP 35.8; BMI 46.2
--- NOTE | 2023-03-19 10:47 | HP.PCM_ITS ---
History of Present Illness Date of Service: 03/19/23 Chief Complaint: Right lower extremity venous stasis ulceration History of Wound: The patient appears today for evaluation relative to the ulceration on the right medial calf. [facility], having previously been treated several months ago for another wound in his right leg. He has a history of multiple recurrent ulcerations in both lower extremities, which occur spontaneously. His current ulceration has been present since . He is accompanied by his , who is a retired nurse. He has been applying Promogran and gauze topically on a daily basis. The patient is an active. He sits a great deal of each day. Ambulatory capacity is limited, due to balance disturbance. He uses a walker for assistance. He sleeps in a recliner, due to multiple episodes of nocturia. He has recently finished a 7?day course of doxycycline, as prescribed by his primary care physician. He experiences swelling in his lower extremities, which is present virtually all the time . He denies a history of thrombophlebitis. He has graduated compression stockings of 15 to 20 mmHg compression in his possession, and has been wearing on a daily basis. Vascular studies were performed on November 16, 2022. A noninvasive lower extremity arterial study revealed ankle-brachial indices bilaterally. A venous duplex examination revealed incompetence of the right great and small saphenous veins. The patient has multiple pre-existing medical problems, which include coronary artery disease, congestive heart failure, diabetes mellitus, hypertension, atrial fibrillation, gastroesophageal reflux disease, hypercholesterolemia, and obesity. [facility] Medical History (Updated 03/19/23 @ 11:[address] Ronak Lucio MD) Atherosclerotic heart disease of [place] coronary artery without angina pectoris Balance disorder Chronic diastolic heart failure Chronic venous insufficiency Diabetes mellitus Edema of right lower leg Essential hypertension GERD (gastroesophageal reflux disease) Paroxysmal atrial fibrillation Presence of stent in coronary artery (~07/01/20) Pure hypercholesterolemia Right leg swelling Tobacco abuse Tobacco abuse counseling Type 2 diabetes mellitus Varicose veins of both lower extremities with inflammation Varicose veins of right lower extremity with inflammation, with ulcer of ankle with fat layer exposed Varicose veins of right lower extremity with inflammation, with ulcer of calf with fat layer exposed Venous stasis ulcer of right lower leg with edema of right lower leg Home Medications ascorbic acid (vitamin C) 1,000 mg tablet 1,000 mg PO DAILY SUPPLEMENT 05/30/17 [History Last Taken 09/15/19] aspirin 325 mg tablet 325 mg PO DAILY HEART HEALTH 05/30/17 [History Last Taken 12/29/19] nitroglycerin 0.4 mg sublingual tablet (Nitrostat) 0.4 mg sublingual Q5M PRN chest pain 05/30/17 [History Last Taken Unknown] biotin 1 mg tablet 1 mg PO DAILY SUPPLEMENT 05/25/19 [History Last Taken 09/15/19] omega-3 fatty acids 1,000 mg capsule (Fish Oil Concentrate) 3,000 mg PO BID SUPPLEMENT 05/25/19 [History Last Taken 09/15/19] metoprolol tartrate 50 mg tablet 50 mg PO BID HEART 09/15/19 [History Last Taken 12/29/19] multivitamin with minerals 1 tablet PO BID SUPPLEMENT 09/15/19 [History Last Taken 09/15/19] acetaminophen 325 mg tablet 500 mg (1.5385 x 325 mg) PO Q4H PRN Pain Score 1-10 /Temp > 100.7 F 09/19/19 [Rx Last Taken Unknown] cholecalciferol (vitamin D3) 50 mcg (2,000 unit) capsule 2,000 unit PO DAILY 06/24/20 [History Last Taken Unknown] clopidogrel 75 mg tablet (Plavix) 75 mg PO DAILY 08/04/20 [History Last Taken Unknown] furosemide 80 mg tablet 80 mg PO BID 11/02/22 [History Last Taken Unknown] insulin aspart U-100 100 unit/mL subcutaneous cartridge 25 unit subcut TID 11/02/22 [History Last Taken Unknown] metoprolol tartrate 50 mg tablet (Lopressor) 50 mg PO BID 11/02/22 [History Last Taken Unknown] amlodipine 10 mg tablet 5 mg PO DAILY 01/29/23 [History Last Taken Unknown] insulin degludec 100 unit/mL (3 mL) subcutaneous pen (Tresiba FlexTouch U-100 insulin) 114 unit subcut QHS 01/29/23 [History Last Taken Unknown] Allergy/AdvReac Type Severity Reaction Status Date / Time propofol Allergy Other Verified 01/29/23 09:22 hydrocodone [From Vicodin] AdvReac Severe Hives Verified 01/29/23 09:22 ramipril [From Altace] AdvReac Severe Fast HR Verified 01/29/23 09:22 valsartan [From Diovan] AdvReac Severe Fast HR Verified 01/29/23 09:22 Hbnzokg-[id number]-KfQ Reductase AdvReac Intermediate Muscle Verified 01/29/23 09:22 Inhibitor aches [Tpchjfa-Dsf-Wgw Reductase Inhibitor] Family History Other Family history of CVA Family history of hyperlipidemia Family history of hypertension Surgical History Coronary angioplasty status History of coronary artery stent placement History of decompression of ulnar nerve History of left heart catheterization (LHC) (~12/29/19) History of tonsillectomy History of tonsillectomy and adenoidectomy History of vasectomy Presence of coronary angioplasty implant and graft (~06/2007) Social History Smoking Status: Never smoker alcohol intake: current details: whiskey,daily substance use type: does not use Vital Signs Vital Signs Vital Signs: 03/19/23 10:04 Temperature 96.5 F L Temperature Source Temporal Pulse Rate 79 Blood Pressure 123/69 H Blood Pressure Mean 87 Blood Pressure Source Monitor Blood Pressure Position Semi-Fowlers Blood Pressure Location Left Arm Oxygen Delivery Method Room Air Weight Weight: 295 lb Body Mass Index (BMI) 46.2 Physical Exam Const alert, oriented x3, no apparent distress and well nourished Constitutional Narrative: The patient is morbidly obese with a BMI of 46.2. General Appearance: cooperative, comfortable, well kempt and well developed Orientation / Consciousness: awake, oriented to person, oriented to place and oriented to time Exam Limitations: no limitations HEENT normocephalic, head/scalp atraumatic and hearing grossly normal bilaterally Head and Scalp: normal to inspection, normocephalic and atraumatic External Ear: external ears normal Eyes PERRL and EOMs intact bilaterally General Eye: normal appearance of both eyes Resp normal respiratory effort, normal air movement, no retractions and no use of accessory muscles Effort and Inspection: able to speak in complete sentences and symmetric chest movement Extremity no calf tenderness General Extremity: Negative for clubbing or cyanosis Skin Wound Narrative: Mild swelling and edema are noted in the patient's right lower extremity. Membreno phlebectatica is noted near the right medial malleolus. Scattered varicosities are noted in the right lower extremity. A small ulceration is noted on the distal right medial calf. Dimensions are documented elsewhere. There is no sign of infection or cellulitis. Mild hyperpigmentation is noted in the right gaiter area. Neuro oriented x3, CN's II-XII intact bilaterally and moves all extremities Sensorium / Orientation: awake, alert, oriented to person, oriented to place and oriented to time Psych Appearance: grossly normal and appropriate Attitude: calm Activity / Motor Behavior: appropriate eye contact Speech: normal speech Mood & Affect: euthymic mood Thought Process: normal thought process Thought Content: normal thought content Attention / Concentration: attention grossly intact Debridement Note Debridement Note No debridement was completed: No debridement was completed today Post-Debridement Measurements and Additional Note: Post-Debridement Measurements/Treatment - Nurse 1 - General Ulcer Assessment Start: 03/19/23 10:04 Freq: Status: Active Protocol: .LOWESTEFANI Activity Type Activity Date Activity User E-sign Co-sign Detail Recorded Client Recorded Date Recorded By Document 03/19/23 10:04 Desktop 03/19/23 10:14 03/19/23 10:04 - Today's Visit Information Type of service Initial Visit Arrival Mode Ambulatory, Walker Transfer Assistance None Accompanied by Patient Identification Verified (Name & Yes ) Patient Requires Transmission-Based No Precautions Height and Weight Height 5 ft 7 in Weight 295 lb Weight in Pounds 295.0 lbs Weight Measurement Method Estimated by Patient Body Mass Index (BMI) 46.2 BMI Classification Obese BSA - Gladis 2.39 Vital Signs Temperature (97.8 F-99.1 F) 96.5 F L Temperature Source Temporal Pulse Rate (60-100) 79 Pulse Location Monitor Oxygen Delivery Method Room Air Blood Pressure (90/60-120/80) 123/69 H Blood Pressure Mean 87 Source Monitor Position Semi-Fowlers Blood Pressure Location Left Arm History Since Last Visit- (Skip if this is Patient's initial visit) Left Footwear Regular Shoe Right Footwear Regular Shoe Pain Scale: 0-10 Numeric Is Patient Pain Free? Yes Lower Extremity Assessment/ Foot Assessment/ Toe Nail Assessment Right -Claudication Assessment Intermittent -Extremity Color Hemosiderin -Hair Growth on Legs No -Hair Growth on Toes No -Temperature of Extremity Warm -Capillary Refill Less than 3 Seconds -Dependent Rubor Yes -Other Deformity No -Prior Foot Ulcer No -Charcot Joint No -Prior Amputation No -Thick Yes -Discolored No -Deformed Yes -Improper Length & Hygeine Yes Communication Assessment Preferred language Colombian Guitar Teacher Required No Right Hearing Abillity Normal Left Hearing Abillity Normal Visual Assistive Devices Glasses Teaching Assessment Preferences Verbal,Written Barriers to Learning None Readiness To Learn Excellent Willingness to Engage in Self Management High Activies Readiness to Engage in Self Management High Activities Anxiety Level Calm Cooperation Cooperative Perception Coherent Interest in Health Problem Asks Questions Education Importance Acknowledges Need Functional Assessment Recent Decline in Ability to Perform Denies Any Declines Assistive Device With Patient Yes List Device(s) with Patient walker Culture/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 instructional support technician to No meet you for the purpose of spiritual/ emotional support? Feather Curling Machine Operator to contact place of nondenominational No WC - Nurse 1 - General Ulcer Measurement Start: 03/19/23 10:04 Freq: Status: Active Protocol: Activity Type Activity Date Activity User E-sign Co-sign Detail Recorded Client Recorded Date Recorded By Document 03/19/23 10:04 Desktop 03/19/23 10:14 03/19/23 10:04 [facility] Nurse 1 #1- RLE -Current Size (cm) - Length 0.2 -Current Size (cm) - Width 0.3 -Current Size (cm) - Depth 0.1 -Total Square Cm 0.06 -Epithelialization Small 1-33% -Tunneling No -Undermining/Tunneling No -Circular Undermining No -Exudate Amt Small -Exudate Type Serosanguineous -Wound Margin Distinct, Outline Attached -Granulation Amt Small (1-33%) -Granulation Quality Red -Necrosis Amt Small (1-33%) -Necrotic Tissue Type Adherent Slough -Texture (Aileen-wound Skin Appearance) Assessed -Moisture (Aileen-wound Skin Appearance) Maceration -Color (Aileen-wound Skin Appearance) Assessed -Temperature (Aileen-wound Skin No Abnormality Appearance) (Pt Warm) -Tenderness on Palpation (Aileen-wound No Skin Appearance) -Ulcer Cleansing Soap and Water -Foul Odor after Cleansing No -Anesthetic Used 5% Lidocaine Gel Right Calf (cm) 41 Right Ankle (cm) 24 WC - Nurse 3 - General Ulcer D/C NN Start: 03/19/23 10:04 Freq: Status: Active Protocol: Activity Type Activity Date Activity User E-sign Co-sign Detail Recorded Client Recorded Date Recorded By Document 03/19/23 10:42 KW Desktop 03/19/23 10:43 KW 03/19/23 10:42 [facility] Nurse 3 #1- RLE -Ulcer Cleansing Rinsed/ Irrigated with Saline -Primary Dressing Applied C Hydrogel ($) -Primary Dressing Covered/Secured with Dry Gauze & Roll Gauze, Secured with Tape Right -Tubular Bandage Double Layer -Size of Tubigrip Used Size E -Size E ($) 2 Pain Scale: 0-10 Numeric Is Patient Pain Free? Yes WC - Visit Discharge Discharge Condition Stable Ambulatory Status Walker Transportation Private Auto Medication Reconcilliation completed & No provided to patient/care provider Clinical Summary of Care Provided Yes Assessment/Plan Assessment/Plan (1) Venous stasis ulcer of right lower leg with edema of right lower leg: CODE(S): I83.019 - Varicose veins of right lower extremity with ulcer of unspecified site; I83.891 - Varicose veins of right lower extremity with other complications; L97.919 - Non-pressure chronic ulcer of unspecified part of right lower leg with unspecified severity; R60.0 - Localized edema (2) Varicose veins of right lower extremity with inflammation, with ulcer of calf with fat layer exposed: CODE(S): I83.212 - Varicose veins of right lower extremity with both ulcer of calf and inflammation; L97.212 - Non-pressure chronic ulcer of right calf with fat layer exposed (3) Chronic venous insufficiency: CODE(S): I87.2 - Venous insufficiency (chronic) (peripheral) (4) Varicose veins of both lower extremities with inflammation: CODE(S): I83.11 - Varicose veins of right lower extremity with inflammation; I83.12 - Varicose veins of left lower extremity with inflammation (5) Right leg swelling: CODE(S): M79.89 - Other specified soft tissue disorders (6) Edema of right lower leg: CODE(S): R60.0 - Localized edema (7) Morbid obesity due to excess calories: CODE(S): E66.01 - Morbid (severe) obesity due to excess calories (8) Balance disorder: CODE(S): R26.89 - Other abnormalities of gait and mobility (9) JAMES (obstructive sleep apnea): CODE(S): G47.33 - Obstructive sleep apnea (adult) (pediatric) (10) CAD (coronary artery disease): CODE(S): I25.10 - Atherosclerotic heart disease of [place] coronary artery without angina pectoris QUALIFIERS: Coronary Disease-Associated Artery/Lesion type: [place] artery [place] vs. transplanted heart: [place] heart (11) HLD (hyperlipidemia): CODE(S): E78.5 - Hyperlipidemia, unspecified (12) GERD (gastroesophageal reflux disease): CODE(S): K21.9 - Gastro-esophageal reflux disease without esophagitis (13) Type 2 diabetes mellitus: CODE(S): E11.9 - Type 2 diabetes mellitus without complications (14) Essential hypertension: CODE(S): I10 - Essential (primary) hypertension (15) Atherosclerotic heart disease of [place] coronary artery without angina pectoris: CODE(S): I25.10 - Atherosclerotic heart disease of [place] coronary artery without angina pectoris QUALIFIERS: [place] vs. transplanted heart: [place] heart Qualified Code(s): I25.10 - Atherosclerotic heart disease of [place] coronary artery without angina pectoris (16) Paroxysmal atrial fibrillation: CODE(S): I48.0 - Paroxysmal atrial fibrillation (17) Left atrial enlargement: CODE(S): I51.7 - Cardiomegaly (18) Presence of stent in coronary artery: CODE(S): Z95.5 - Presence of coronary angioplasty implant and graft (19) Pure hypercholesterolemia: CODE(S): E78.00 - Pure hypercholesterolemia, unspecified (20) History of coronary artery stent placement: CODE(S): Z95.5 - Presence of coronary angioplasty implant and graft (21) History of tonsillectomy: CODE(S): Z90.89 - Acquired absence of other organs (22) History of decompression of ulnar nerve: CODE(S): Z98.890 - Other specified postprocedural states (23) Tobacco abuse: CODE(S): Z72.0 - Tobacco use (24) Tobacco abuse counseling: CODE(S): Z71.6 - Tobacco abuse counseling PLAN: Plan This is a 72-year-old morbidly obese male with multiple pre-existing medical problems. He presented with a small ulceration on the right distal medial calf, which has been present for approximately 1 month. He has a history of known chronic venous insufficiency, and has been treated in the past for venous stasis ulcerations in the right lower extremity. Venous duplex examination performed on November 16, 2022, revealed incompetence of the right great and small saphenous veins. A lengthy discussion has been undertaken with the patient and his , who is at the bedside, and is a retired nurse. Patient has been advised to sleep on a flat surface at night, with his legs level with or higher than his heart. Leg elevation has been encouraged during daytime hours as well. Prolonged idle sitting has been discouraged. Activity has been encouraged. However, the patient's balance disturbance will likely preclude him from e nhancing his activity to any significant degree. Weight loss has also been recommended. The patient is currently wearing graduated compression stockings of 15 to 20 mmHg compression. We are to increase this to 20 to 30 mmHg compression. A prior noninvasive lower extremity arterial study revealed no evidence of significant arterial occlusive disease at ankle level bilaterally. To facilitate the increased degree of compression, the patient has been advised to obtain graduated compression stockings of 10 to 15 mmHg compression, and to wear 2 pairs on each lower extremity. The patient has been provided a prescription for such. The patient's , who is a nurse, appears to be well aware of the measures needed to manage and prevent issues related to the patient's chronic venous disease. However, it appears evident that the patient is noncompliant. The patient is to return in 1 week for reevaluation. He may also benefit from a superficial venous ablation procedure in the right lower extremity at a future date. Total time: 50 minutes
== END 2023-03-24 23:59 | disposition home or self-care (01) ==
LOC: WC 09:54
PROVIDERS: PCP Internal Medicine; Referring Provider Internal Medicine; Visit Provider Surgery
DX: E11.51 Type 2 diabetes mellitus with diabetic peripheral angiopathy without gangrene (principal); L97.212 Non-pressure chronic ulcer of right calf with fat layer exposed; I11.0 Hypertensive heart disease with heart failure; I50.32 Chronic diastolic (congestive) heart failure; I48.0 Paroxysmal atrial fibrillation; E66.01 Morbid (severe) obesity due to excess calories; Z68.42 Body mass index [BMI] 45.0-49.9, adult; Z79.4 Long term (current) use of insulin; Z79.82 Long term (current) use of aspirin; E78.00 Pure hypercholesterolemia, unspecified; Z79.02 Long term (current) use of antithrombotics/antiplatelets; I25.10 Atherosclerotic heart disease of native coronary artery without angina pectoris; K21.9 Gastro-esophageal reflux disease without esophagitis; Z79.899 Other long term (current) drug therapy
CPT/HCPCS: 99213; G0463

== ENCOUNTER 2023-03-21 08:00 | Outpatient (RCR) | payer SELFPAY ==
[2020-12-01 05:55] VITALS: BMI 45.8
[2023-02-22 00:11] VITALS: BP 127/75; PULSE 78; RESP 16; TEMP 36.1
== END 2023-03-24 23:59 ==
LOC: CR 08:00
PROVIDERS: PCP Internal Medicine; Referring Provider Internal Medicine; Visit Provider Internal Medicine
DX: Z00.00 Encounter for general adult medical examination without abnormal findings (principal)

== ENCOUNTER 2023-03-26 09:55 | Outpatient (RCR) | payer MEDICARE, OTHER, SELFPAY ==
[2020-12-01 05:55] VITALS: BMI 45.8
[2023-03-25 00:27] VITALS: BP 123/69; PULSE 79; TEMP 35.8; BMI 46.2
[2023-03-26 10:07] VITALS: BP 137/77; PULSE 96; RESP 18; TEMP 35.4; BMI 46.2
--- NOTE | 2023-03-26 10:37 | HP.PCM_ITS ---
History of Present Illness Date of Service: 03/26/23 Chief Complaint: Right lower extremity venous stasis ulceration History of Wound: The patient appears today for evaluation relative to the ulceration on the right medial calf. [facility], having previously been treated several months ago for another wound in his right leg. He has a history of multiple recurrent ulcerations in both lower extremities, which occur spontaneously. His current ulceration has been present since . He is accompanied by his , who is a retired nurse. He has been applying Promogran and gauze topically on a daily basis. The patient is an active. He sits a great deal of each day. Ambulatory capacity is limited, due to balance disturbance. He uses a walker for assistance. He sleeps in a recliner, due to multiple episodes of nocturia. He has recently finished a 7?day course of doxycycline, as prescribed by his primary care physician. He experiences swelling in his lower extremities, which is present virtually all the time . He denies a history of thrombophlebitis. He has graduated compression stockings of 15 to 20 mmHg compression in his possession, and has been wearing on a daily basis. Vascular studies were performed on November 16, 2022. A noninvasive lower extremity arterial study revealed ankle-brachial indices bilaterally. A venous duplex examination revealed incompetence of the right great and small saphenous veins. The patient has multiple pre-existing medical problems, which include coronary artery disease, congestive heart failure, diabetes mellitus, hypertension, atrial fibrillation, gastroesophageal reflux disease, hypercholesterolemia, and obesity. [facility] Medical History Atherosclerotic heart disease of [place] coronary artery without angina pectoris Balance disorder Chronic diastolic heart failure Chronic venous insufficiency Diabetes mellitus Edema of right lower leg Essential hypertension GERD (gastroesophageal reflux disease) Paroxysmal atrial fibrillation Presence of stent in coronary artery (~07/01/20) Pure hypercholesterolemia Right leg swelling Tobacco abuse Tobacco abuse counseling Type 2 diabetes mellitus Varicose veins of both lower extremities with inflammation Varicose veins of right lower extremity with inflammation, with ulcer of ankle with fat layer exposed Varicose veins of right lower extremity with inflammation, with ulcer of calf with fat layer exposed Venous stasis ulcer of right lower leg with edema of right lower leg Home Medications ascorbic acid (vitamin C) 1,000 mg tablet 1,000 mg PO DAILY SUPPLEMENT 05/30/17 [History Last Taken 09/15/19] aspirin 325 mg tablet 325 mg PO DAILY HEART HEALTH 05/30/17 [History Last Taken 12/29/19] nitroglycerin 0.4 mg sublingual tablet (Nitrostat) 0.4 mg sublingual Q5M PRN chest pain 05/30/17 [History Last Taken Unknown] biotin 1 mg tablet 1 mg PO DAILY SUPPLEMENT 05/25/19 [History Last Taken 09/15/19] omega-3 fatty acids 1,000 mg capsule (Fish Oil Concentrate) 3,000 mg PO BID SUPPLEMENT 05/25/19 [History Last Taken 09/15/19] metoprolol tartrate 50 mg tablet 50 mg PO BID HEART 09/15/19 [History Last Taken 12/29/19] multivitamin with minerals 1 tablet PO BID SUPPLEMENT 09/15/19 [History Last Taken 09/15/19] acetaminophen 325 mg tablet 500 mg (1.5385 x 325 mg) PO Q4H PRN Pain Score 1-1 0/Temp > 100.7 F 09/19/19 [Rx Last Taken Unknown] cholecalciferol (vitamin D3) 50 mcg (2,000 unit) capsule 2,000 unit PO DAILY 06/24/20 [History Last Taken Unknown] clopidogrel 75 mg tablet (Plavix) 75 mg PO DAILY 08/04/20 [History Last Taken Unknown] furosemide 80 mg tablet 80 mg PO BID 11/02/22 [History Last Taken Unknown] insulin aspart U-100 100 unit/mL subcutaneous cartridge 25 unit subcut TID 11/02/22 [History Last Taken Unknown] metoprolol tartrate 50 mg tablet (Lopressor) 50 mg PO BID 11/02/22 [History Last Taken Unknown] amlodipine 10 mg tablet 5 mg PO DAILY 01/29/23 [History Last Taken Unknown] insulin degludec 100 unit/mL (3 mL) subcutaneous pen (Tresiba FlexTouch U-100 insulin) 114 unit subcut QHS 01/29/23 [History Last Taken Unknown] Allergy/AdvReac Type Severity Reaction Status Date / Time propofol Allergy Other Verified 01/29/23 09:22 hydrocodone [From Vicodin] AdvReac Severe Hives Verified 01/29/23 09:22 ramipril [From Altace] AdvReac Severe Fast HR Verified 01/29/23 09:22 valsartan [From Diovan] AdvReac Severe Fast HR Verified 01/29/23 09:22 Lejagrl-KKH-CrJ Reductase AdvReac Intermediate Muscle Verified 01/29/23 09:22 Inhibitor aches [Iyqjurr-Wor-Qjh Reductase Inhibitor] Family History Other Family history of CVA Family history of hyperlipidemia Family history of hypertension Surgical History Coronary angioplasty status History of coronary artery stent placement History of decompression of ulnar nerve History of left heart catheterization (LHC) (~12/29/19) History of tonsillectomy History of tonsillectomy and adenoidectomy History of vasectomy Presence of coronary angioplasty implant and graft (~06/2007) Social History Smoking Status: Never smoker alcohol intake: current details: whiskey,daily substance use type: does not use Vital Signs Vital Signs Vital Signs: 03/26/23 10:07 Temperature 95.8 F L Temperature Source Temporal Pulse Rate 96 Respiratory Rate 18 Blood Pressure 137/77 H Blood Pressure Mean 97 Blood Pressure Source Monitor Blood Pressure Position Semi-Fowlers Blood Pressure Location Left Arm Oxygen Delivery Method Room Air Weight Weight: 295 lb Body Mass Index (BMI) 46.2 Physical Exam Const alert, oriented x3, no apparent distress and well nourished Constitutional Narrative: The patient is morbidly obese with a BMI of 46.2. General Appearance: cooperative, comfortable, well kempt and well developed Orientation / Consciousness: awake, oriented to person, oriented to place and oriented to time Exam Limitations: no limitations HEENT normocephalic, head/scalp atraumatic and hearing grossly normal bilaterally Head and Scalp: normal to inspection, normocephalic and atraumatic External Ear: external ears normal Eyes PERRL and EOMs intact bilaterally General Eye: normal appearance of both eyes Resp normal respiratory effort, normal air movement, no retractions and no use of accessory muscles Effort and Inspection: able to speak in complete sentences and symmetric chest movement Extremity no calf tenderness General Extremity: Negative for clubbing or cyanosis Skin Wound Narrative: Mild swelling and edema are noted in the patient's right lower extremity. Membreno phlebectatica is noted near the right medial malleolus. Scattered varicosities are noted in the right lower extremity. The ulceration on the right medial calf is now completely healed and epithelialized. There is no sign of infection or cellulitis. Mild to moderate lipodermatosclerosis and hyperpigmentation are noted in the right gaiter area. Neuro oriented x3, CN's II-XII intact bilaterally, moves all extremities and no focal motor deficits Sensorium / Orientation: awake, alert, oriented to person, oriented to place and oriented to time Psych Appearance: grossly normal and appropriate Attitude: calm Activity / Motor Behavior: appropriate eye contact Speech: normal speech Mood & Affect: euthymic mood Thought Process: normal thought process Thought Content: normal thought content Attention / Concentration: attention grossly intact Debridement Note Debridement Note No debridement was completed: No debridement was completed today (There are no open wounds or ulcerations.) Post-Debridement Measurements and Additional Note: Post-Debridement Measurements/Treatment VERONICA - Nurse 1 - General Ulcer Assessment Start: 03/26/23 10:07 Freq: Status: Active Protocol: KAYLEIGH Activity Type Activity Date Activity User E-sign Co-sign Detail Recorded Client Recorded Date Recorded By Document 03/26/23 10:07 KW Desktop 03/26/23 10:17 KW 03/26/23 10:07 - Today's Visit Information Type of service Follow-up Visit (Physician/[employer]CHO[employer]INCIPAL ) Arrival Mode Ambulatory, Walker Patient Identification Verified (Name & Yes ) Finger Stick Blood Sugar(mg/dl) (if 117 indicated): Blood Sugar Stated by Patient Height and Weight Body Mass Index (BMI) 46.2 BMI Classification Obese Vital Signs Temperature (97.8 F-99.1 F) 95.8 F L Temperature Source Temporal Pulse Rate (60-100) 96 Pulse Location Monitor Respiratory Rate (12-18) 18 Respiratory rate source Observation Oxygen Delivery Method Room Air Blood Pressure (90/60-120/80) 137/77 H Blood Pressure Mean 97 Source Monitor Position Semi-Fowlers Blood Pressure Location Left Arm History Since Last Visit- (Skip if this is Patient's initial visit) Have you changed medications since your No last visit? Any new allergies or adverse reactions No Had a fall/change in ADL's that may No increase risk of falls Signs or symptoms of abuse and/or No neglect since last visit Have you been in the hospital since your No last visit? Has dressing in place as prescribed No Has compression in place as prescribed Yes Has offloadiing in place as prescribed No Experienced any changes in pain level or No management Left Footwear Diabetic Shoe Right Footwear Diabetic Shoe Pain Scale: 0-10 Numeric Is Patient Pain Free? Yes - Nurse 1 - General Ulcer Measurement Start: 03/26/23 10:07 Freq: Status: Active Protocol: Activity Type Activity Date Activity User E-sign Co-sign Detail Recorded Client Recorded Date Recorded By Document 03/26/23 10:07 [employer] 03/26/23 10:17 KW 03/26/23 10:07 [facility] Nurse 1 #1- RLE -Current Size (cm) - Length 0 -Current Size (cm) - Width 0 -Current Size (cm) - Depth 0 -Total Square Cm 0 1-right medial leg -Current Size (cm) - Length 0 -Current Size (cm) - Width 0 -Current Size (cm) - Depth 0 -Total Square Cm 0 Right Calf (cm) 41 Right Ankle (cm) 24 - Nurse 3 - General Ulcer D/C NN Start: 03/26/23 10:07 Freq: Status: Active Protocol: Activity Type Activity Date Activity User E-sign Co-sign Detail Recorded Client Recorded Date Recorded By Document 03/26/23 10:31 [employer] 03/26/23 10:32 KW 03/26/23 10:31 [facility] Nurse 3 #1- RLE -Primary Dressing Covered/Secured with Dry Gauze & Roll Gauze, Secured with Tape 1-right medial leg -Primary Dressing Covered/Secured with Dry Gauze & Roll Gauze, Secured with Tape Pain Scale: 0-10 Numeric Is Patient Pain Free? Yes WC - Visit Discharge Discharge Condition Stable Ambulatory Status Ambulatory Transportation Private Auto Medication Reconcilliation completed & No provided to patient/care provider Clinical Summary of Care Provided Yes Assessment/Plan Assessment/Plan (1) Venous stasis ulcer of right lower leg with edema of right lower leg: CODE(S): I83.019 - Varicose veins of right lower extremity with ulcer of unspecified site; I83.891 - Varicose veins of right lower extremity with other complications; L97.919 - Non-pressure chronic ulcer of unspecified part of right lower leg with unspecified severity; R60.0 - Localized edema (2) Varicose veins of right lower extremity with inflammation, with ulcer of calf with fat layer exposed: CODE(S): I83.212 - Varicose veins of right lower extremity with both ulcer of calf and inflammation; L97.212 - Non-pressure chronic ulcer of right calf with fat layer exposed (3) Chronic venous insufficiency: CODE(S): I87.2 - Venous insufficiency (chronic) (peripheral) (4) Varicose veins of both lower extremities with inflammation: CODE(S): I83.11 - Varicose veins of right lower extremity with inflammation; I83.12 - Varicose veins of left lower extremity with inflammation (5) Right leg swelling: CODE(S): M79.89 - Other specified soft tissue disorders (6) Edema of right lower leg: CODE(S): R60.0 - Localized edema (7) Morbid obesity due to excess calories: CODE(S): E66.01 - Morbid (severe) obesity due to excess calories (8) Balance disorder: CODE(S): R26.89 - Other abnormalities of gait and mobility (9) JAMES (obstructive sleep apnea): CODE(S): G47.33 - Obstructive sleep apnea (adult) (pediatric) (10) CAD (coronary artery disease): CODE(S): I25.10 - Atherosclerotic heart disease of [place] coronary artery without angina pectoris QUALIFIERS: Coronary Disease-Associated Artery/Lesion type: [place] artery [place] vs. transplanted heart: [place] heart (11) HLD (hyperlipidemia): CODE(S): E78.5 - Hyperlipidemia, unspecified (12) GERD (gastroesophageal reflux disease): CODE(S): K21.9 - Gastro-esophageal reflux disease without esophagitis (13) Type 2 diabetes mellitus: CODE(S): E11.9 - Type 2 diabetes mellitus without complications (14) Essential hypertension: CODE(S): I10 - Essential (primary) hypertension (15) Atherosclerotic heart disease of [place] coronary artery without angina pectoris: CODE(S): I25.10 - Atherosclerotic heart disease of [place] coronary artery without angina pectoris QUALIFIERS: [place] vs. transplanted heart: [place] heart Qualified Code(s): I25.10 - Atherosclerotic heart disease of [place] coronary artery without angina pectoris (16) Paroxysmal atrial fibrillation: CODE(S): I48.0 - Paroxysmal atrial fibrillation (17) Left atrial enlargement: CODE(S): I51.7 - Cardiomegaly (18) Presence of stent in coronary artery: CODE(S): Z95.5 - Presence of coronary angioplasty implant and graft (19) Pure hypercholesterolemia: CODE(S): E78.00 - Pure hypercholesterolemia, unspecified (20) History of coronary artery stent placement: CODE(S): Z95.5 - Presence of coronary angioplasty implant and graft (21) History of tonsillectomy: CODE(S): Z90.89 - Acquired absence of other organs (22) History of decompression of ulnar nerve: CODE(S): Z98.890 - Other specified postprocedural states (23) Tobacco abuse: CODE(S): Z72.0 - Tobacco use (24) Tobacco abuse counseling: CODE(S): Z71.6 - Tobacco abuse counseling PLAN: Plan This is a 72-year-old morbidly obese male with multiple pre-existing medical problems. He presented with a small ulceration on the right distal medial calf, which had been present for approximately 1 month. He has a history of known chronic venous insufficiency, and has been treated in the past for venous stasis ulcerations in the right lower extremity. Venous duplex examination performed on November 16, 2022, revealed incompetence of the right great and small saphenous veins. A lengthy discussion has been undertaken with the patient at the bedside. Patient has been advised to sleep on a flat surface at night, with his legs level with or higher than his heart. Leg elevation has been encouraged during daytime hours as well. Prolonged idle sitting has been discouraged. Activity has been encouraged. However, the patient's balance disturbance will likely preclude him from enhancing his activity to any significant degree. Weight loss has also been recommended. The patient had been wearing graduated compression stockings of 15 to 20 mmHg compression. We are to increase this to 20 to 30 mmHg compression. A prescription for graduated compression stockings of 20 to 30 mmHg compression has been provided. A prior noninvasive lower extremity arterial study revealed no evidence of significant arterial occlusive disease at ankle level bilaterally. The patient is now healed and completely epithelialized. He has been encouraged to continue with the conservative treatment measures which have been implemented, and will follow-up henceforth on an as-needed basis. Total time: 26 minutes
== END 2023-03-26 16:00 | disposition home or self-care (01) ==
LOC: WC 09:55
PROVIDERS: PCP Internal Medicine; Referring Provider Internal Medicine; Visit Provider Surgery
DX: E11.59 Type 2 diabetes mellitus with other circulatory complications (principal); I11.0 Hypertensive heart disease with heart failure; I50.32 Chronic diastolic (congestive) heart failure; I48.0 Paroxysmal atrial fibrillation; Z68.42 Body mass index [BMI] 45.0-49.9, adult; E66.01 Morbid (severe) obesity due to excess calories; I83.93 Asymptomatic varicose veins of bilateral lower extremities; Z79.02 Long term (current) use of antithrombotics/antiplatelets; K21.9 Gastro-esophageal reflux disease without esophagitis; Z79.82 Long term (current) use of aspirin; E78.00 Pure hypercholesterolemia, unspecified; Z95.5 Presence of coronary angioplasty implant and graft; G47.33 Obstructive sleep apnea (adult) (pediatric); I25.10 Atherosclerotic heart disease of native coronary artery without angina pectoris; R26.9 Unspecified abnormalities of gait and mobility; I87.2 Venous insufficiency (chronic) (peripheral)
CPT/HCPCS: 99213; G0463

== ENCOUNTER 2023-04-23 08:00 | Outpatient (RCR) | payer SELFPAY ==
[2020-12-01 05:55] VITALS: BMI 45.8
== END 2023-04-24 23:59 ==
LOC: CR 08:00
PROVIDERS: PCP Internal Medicine; Referring Provider Internal Medicine; Visit Provider Internal Medicine
DX: Z00.00 Encounter for general adult medical examination without abnormal findings (principal)

== ENCOUNTER 2023-05-23 08:00 | Outpatient (RCR) | payer SELFPAY ==
[2020-12-01 05:55] VITALS: BMI 45.8
== END 2023-05-23 23:59 ==
LOC: CR 08:00
PROVIDERS: PCP Internal Medicine; Referring Provider Internal Medicine; Visit Provider Internal Medicine
DX: Z00.00 Encounter for general adult medical examination without abnormal findings (principal)

== ENCOUNTER → 2023-05-31 | Outpatient (CLI) | payer MEDICARE, OTHER, SELFPAY ==
[2020-12-01 05:55] VITALS: BMI 45.8
--- OUTSIDE RECORDS SUMMARY | 2023-05-31 06:02 | XMS RPT_ITS | CCD ---
Author Name Unknown Address [address] [place] [address] Organization [facility] Care Team Providers Care Science Liaison Name Role Phone Maddy LAST, Brea Romero Unavailable Regi KRUEGER, Son Lomax Unavailable Marva Rodriguez Unavailable Unavailable Marva Rodriguez Unavailable Unavailable Mojgan Obando RN Unavailable Unavailable [facility] Nurse Unavailable Unavailable Krishna Reynolds MD Primary Care Provider Son Deluna Unavailable Fabrice Wadsworth MD Unavailable Mitchel Aleman Unavailable Ramesh INFANTE, Gary Estrada Unavailable Krishna Reynolds MD Primary Care Provider Son Deluna F Unavailable Fabrice Wadsworth MD Unavailable Mitchel Aleman Unavailable Ramesh INFANTE, Gary J Unavailable Son Deluna F Unavailable Fabrice Wadsworth MD Unavailable Mitchel Aleman Unavailable Ramesh INFANTE, Gary Estrada Unavailable Krishna Reynolds MD Primary Care Provider Regi Son F Unavailable Fabrice Wadsworth MD Unavailable Mitchel Aleman Unavailable Ramesh INFANTE, Gary Estrada Unavailable Mitchel Aleman MD Unavailable [phone] Son Deluna MD Unavailable [phone] REGULO STOVER Referring Unavailable REYNOLDS, SOPHIE Primary Care Unavailable REGULO STOVER Attending Unavailable REGULO STOVER Referring Unavailable REYNOLDS, SOPHIE Primary Care Unavailable REYNOLDS, SOPHIE Primary Care Unavailable REYNOLDS, SOPHIE Attending Unavailable CHIUNDA, ARABELLA Attending Unavailable CHIUNDA, ARABELLA Referring Unavailable REYNOLDS, SOPHIE Primary Care Unavailable REGULO STOVER Referring Unavailable REYNOLDS, SOPHIE Primary Care Unavailable REGULO STOVER Attending Unavailable JOLANTAREGULO Referring Unavailable REYNOLDS, SOPHIE Primary Care Unavailable ROSAURA, LEILA M Attending Unavailable REYNOLDS, SOPHIE Primary Care Unavailable ROSAURA LEILA M Attending Unavailable CHIUNDA, ARABELLA Attending Unavailable CHIUNDA, ARABELLA Referring Unavailable REYNOLDS, SOPHIE Primary Care Unavailable REYNOLDS, SOPHIE Primary Care Unavailable REYNOLDS, SOPHIE Attending Unavailable Allergies Allergy Classification Reported Allergen(s) Allergy Type Date of Onset Reaction(s) Facility (6 sources) acetaminophen / HYDROcodone Drug Allergy 12-20-19 13 Hives [facility] Work Phone: [phone] (18 sources) Contrast media; Translations: [RED DYE] food allergy 12-26-19 13 [facility] Work Phone: [phone] (6 sources) Hmg-Coa Reductase Inhibitors (Statins) drug allergy 12-20-19 13 muscle aches [facility] Work Phone: [phone] (12 sources) ramipril Drug Allergy 12-20-19 13 [facility] Work Phone: [phone] (12 sources) valsartan Drug Allergy 12-20-19 13 [facility] Work Phone: [phone] (7 sources) HMG-CoA reductase inhibitor; Translations: [SGSREWP-NTD-UEU REDUCTASE INHIBITORS] Drug Intolerance 06-18-19 12 Other: See Comments [facility] Work Phone: (20 sources) Propofol; Translations: [PROPOFOL] Drug Allergy 02-10-20 20 Other: See Comments [facility] (20 sources) Ramipril; Translations: [RAMIPRIL] Drug Allergy 12-30-19 05 Intolerance [facility] Work Phone: (20 sources) Seasonal allergy; Translations: [SEASONAL ALLERGIES] Allergy to substance 08-05-19 13 Other: See Comments [facility] (20 sources) Sulfamethoxazole / Trimethoprim; Translations: [SULFAMETHOXAZOLE-T RIMETHOPRIM] Drug Allergy 08-16-19 21 Hives [facility] (20 sources) valsartan; Translations: [VALSARTAN] Drug Allergy 12-30-19 05 [facility] Work Phone: (20 sources) HMG-CoA reductase inhibitor Drug Intolerance 06-18-19 12 Other: See Comments [facility] Work Phone: (20 sources) metOLazone; Translations: [METOLAZONE] Drug Allergy 01-16-20 22 Rash [facility] Medications Current Medications Medication Drug Class(es) Dates Sig (Normalized) Sig (Original) bempedoic acid 180 mg / ezetimibe 10 mg oral tablet (14 sources) Dietary Cholesterol Absorption Inhibitor Start: 06-01-2022 End: 12-07-2022 take 1 tablet by mouth once daily bempedoic acid-ezetimibe (NEXLIZET) 180-10 mg tablet Indications: Other hyperlipidemia Take 1 tablet by mouth once daily. 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 6 mL 3 03/14/2023 Active Problems Active Problems Problem Classification Problem Date Documented Date Episodic/Chronic Cardiac and circulatory congenital anomalies (6 sources) Left atrial abnormality; Translations: [Cardiomegaly] Onset: 01-06-2013 01-06-2013 Chronic Cardiac dysrhythmias (20 sources) Atrial fibrillation; Translations: [Paroxysmal atrial fibrillation] Onset: 10-07-2007 Resolved: 05-25-2015 09-21-2013 Chronic Chronic ulcer of skin (2 sources) Superficial skin ulcer of lower limb; Translations: [Non-pressure chronic ulcer of unspecified part of right lower leg limited to breakdown of skin] 10-01-2022 Chronic Congestive heart failure; nonhypertensive (20 sources) Chronic diastolic heart failure; Translations: [Chronic diastolic (congestive) heart failure] Onset: 03-31-2020 07-02-2020 Chronic Coronary atherosclerosis and other heart disease (20 sources) Coronary atherosclerosis; Translations: [Atherosclerotic heart disease of alutiiq coronary artery with other forms of angina pectoris] Onset: 10-07-2007 07-02-2020 Chronic Diabetes mellitus with complications (20 sources) Type 2 diabetes mellitus; Translations: [Type 2 diabetes mellitus with diabetic neuropathy, unspecified] Chronic Diabetes mellitus without complication (20 sources) Diabetes mellitus; Translations: [Uncontrolled diabetes mellitus] Onset: 12-19-2012 12-19-2012 Chronic Disorders of lipid metabolism (20 sources) Hyperlipidemia; Translations: [Other hyperlipidemia] Onset: 12-19-2012 12-19-2012 Chronic Esophageal disorders (20 sources) Gastroesophageal reflux disease; Translations: [Gastro-esophageal reflux disease without esophagitis] 08-18-2020 Chronic Essential hypertension (20 sources) Hypertensive disorder; Translations: [Essential hypertension] Onset: 12-19-2012 12-19-2012 Chronic Hyperplasia of prostate (20 sources) Benign prostatic hyperplasia; Translations: [Benign prostatic hyperplasia without lower urinary tract symptoms] Onset: 05-31-2014 05-31-2014 Chronic Hypertension with complications and secondary hypertension (18 sources) Hypertensive heart disease with congestive heart failure; Translations: [Hypertensive heart disease with heart failure] Onset: 05-30-2022 05-30-2022 Chronic Immunizations and screening for infectious disease (3 sources) Vaccination needed; Translations: [Encounter for immunization] Episodic Osteoarthritis (20 sources) Degenerative joint disease involving multiple joints; Translations: [Polyosteoarthritis, unspecified] 01-23-2010 Chronic Other diseases of veins and lymphatics (20 sources) Peripheral venous insufficiency; Translations: [Venous insufficiency (chronic) (peripheral)] 10-17-2016 Episodic Other nervous system disorders (1 source) Impairment of balance; Translations: [Other abnormalities of gait and mobility] Episodic Other nervous system disorders (1 source) Abnormal gait; Translations: [Unspecified abnormalities of gait and mobility] Episodic Other nutritional; endocrine; and metabolic disorders (20 sources) Severe obesity; Translations: [Morbid (severe) obesity due to excess calories] 03-15-2021 Chronic Other screening for suspected conditions (not mental disorders or infectious disease) (2 sources) Patient encounter status; Translations: [Encounter for screening for cardiovascular disorders] Episodic Other skin disorders (2 sources) Callosity; Translations: [Corns and callosities] Episodic Other upper respiratory disease (20 sources) Allergic rhinitis; Translations: [Other allergic rhinitis] Onset: 11-30-2020 11-30-2020 Chronic Aileen-; endo-; and myocarditis; cardiomyopathy (except that caused by tuberculosis or sexually transmitted disease) (20 sources) Heart valve disorder; Translations: [Endocarditis, valve unspecified] Onset: 08-18-2020 08-18-2020 Chronic Peripheral and visceral atherosclerosis (3 sources) Atherosclerosis of aorta; Translations: [Atherosclerosis of aorta] Onset: 03-11-2023 03-13-2023 Chronic Unclassified (20 sources) Body mass index (BMI) 37.0-37.9, adult; Translations: [Body mass index (BMI) 40.0-44.9, adult] Onset: 12-25-2012 11-16-2014 Chronic Unclassified (6 sources) Long-term drug therapy; Translations: [Other residential (current) drug therapy] Onset: 05-25-2015 05-25-2015 Unclassified (6 sources) Percutaneous transluminal coronary angioplasty ; Translations: [Coronary angioplasty status] Onset: 12-19-2012 12-19-2012 Unclassified (1 source) Other persistent atrial fibrillation; Translations: [Persistent atrial fibrillation (HCC)] Onset: 03-31-2020 Past or Other Problems Problem Classification Problem Date Documented Da te Episodic/Chronic Cardiac dysrhythmias (6 sources) Tachycardia; Translations: [Tachycardia, unspecified] Onset: 05-27-2013 05-27-2013 Episodic Other bone disease and musculoskeletal deformities (15 sources) History of partial amputation of right toe; Translations: [Acquired absence of other right toe(s)] Onset: 09-17-2019 09-29-2019 Episodic Other circulatory disease (12 sources) Elevated blood-pressure reading without diagnosis of hypertension; Translations: [Elevated blood-pressure reading, without diagnosis of hypertension] Onset: 05-27-2013 Resolved: 11-16-2014 05-27-2013 Episodic Other lower respiratory disease (6 sources) Dyspnea; Translations: [Shortness of breath] Onset: 02-06-2017 02-06-2017 Episodic Other lower respiratory disease (20 sources) Dyspnea on exertion; Translations: [Dyspnea, unspecified] Onset: 11-06-2019 11-06-2019 Episodic Other lower respiratory disease (1 source) Other forms of dyspnea; Translations: [ROBIN (dyspnea on exertion)] Onset: 08-13-2022 Episodic Residual codes; unclassified (20 sources) Memory impairment; Translations: [Other amnesia] Onset: 08-13-2013 08-13-2013 Episodic Residual codes; unclassified (20 sources) Other specified health status; Translations: [Other drug allergy] Onset: 03-31-2020 03-31-2020 Episodic Unclassified (20 sources) Body mass index (BMI) 27.0-27.9, adult; Translations: [Family history of stroke] Onset: 12-25-2012 Resolved: 11-16-2014 11-16-2014 Episodic Results Test Name Value Interpretation Reference Range Facil ity Vital Signs Date Time Vital Sign Value Performing Clinician Jasmin escalera 12-07-2022 07:01-0400 Body weight 131.09 kg Leila Older [employer] Work Phone: [facility] 12-07-2022 07:01-0400 Diastolic blood pressure 68 mm[Hg] Leila Older [employer] Work Phone: [facility] 12-07-2022 07:01-0400 Heart rate 87 /min Leila Older [employer] Work Phone: [facility] 12-07-2022 07:01-0400 Respiratory rate 20 /min Leila Older [employer]INS[employer] Work Phone: [facility] 12-07-2022 07:01-0400 SaO2% (BldA) [Mass fraction] 97 % Leila Older [employer]INS[employer] Work Phone: [facility] 12-07-2022 07:01-0400 Systolic blood pressure 112 mm[Hg] Leila Older [employer] Work Phone: [facility] 10-01-2022 14:47-0400 Body weight 133.36 kg Krishna Reynolds MD Work Phone: [facility] 10-01-2022 14:47-0400 Diastolic blood pressure 68 mm[Hg] Krishna Reynolds MD Work Phone: [facility] 10-01-2022 14:47-0400 Heart rate 72 /min Krishna Reynolds MD Work Phone: [facility] 10-01-2022 14:47-0400 Respiratory rate 18 /min Krishna Reynolds MD Work Phone: [facility] 10-01-2022 14:47-0400 Systolic blood pressure 130 mm[Hg] Krishna Reynolds MD Work Phone: [facility] 01-26-2022 08:07-0400 Body height 169.5 cm Leila Older [employer] Work Phone: [facility] 01-26-2022 08:07-0400 Body weight 134.72 kg Leila Older [employer] Work Phone: [facility] 01-26-2022 08:07-0400 Diastolic blood pressure 62 mm[Hg] Leila Older [employer] Work Phone: [facility] 01-26-2022 08:07-0400 Heart rate 76 /min Leila Older [employer] Work Phone: [facility] 01-26-2022 08:07-0400 Respiratory rate 20 /min Leila Older [employer].INS[employer] Work Phone: [facility] 01-26-2022 08:07-0400 Systolic blood pressure 103 mm[Hg] Leila Older [employer]INS[employer] Work Phone: [facility] 01-15-2022 15:27-0400 Body weight 134.72 kg Regulo Stover MD Work Phone: [facility] 01-15-2022 15:27-0400 Diastolic blood pressure 68 mm[Hg] Regulo Stover MD Work Phone: [facility] 01-15-2022 15:27-0400 Heart rate 91 /min Regulo Stover MD Work Phone: [facility] 01-15-2022 15:27-0400 SaO2% (BldA) [Mass fraction] 96 % Regulo Stover MD Work Phone: [facility] 01-15-2022 15:27-0400 Systolic blood pressure 118 mm[Hg] Regulo Stover MD Work Phone: [facility] 09-08-2021 10:12-0400 Diastolic blood pressure 68 mm[Hg] Krishna Reynolds MD Work Phone: [facility] 09-08-2021 10:12-0400 Systolic blood pressure 110 mm[Hg] Krishna Reynolds MD Work Phone: [facility] 09-08-2021 09:39-0400 Body height 170.2 cm Krishna Reynolds MD Work Phone: [facility] 09-08-2021 09:39-0400 Body temperature 96.1 [degF] Krishna Reynolds MD Work Phone: [facility] 09-08-2021 09:39-0400 Body weight 135.63 kg Krishna Reyonlds MD Work Phone: [facility] 09-08-2021 09:39-0400 Heart rate 79 /min Krishna Reynolds MD Work Phone: [facility] 09-08-2021 09:39-0400 Respiratory rate 18 /min Krishna Reynolds MD Work Phone: [facility] 09-08-2021 09:39-0400 SaO2% (BldA) [Mass fraction] 96 % Krishna Reynolds MD Work Phone: [facility] 02-06-2017 10:34-0500 BMI (Body Mass Index) 41.96 kg/m2 Marva [facility] [employer] Work Phone: 02-06-2017 10:34-0500 BP Diastolic 62 mm[Hg] [facility] Work Phone: 02-06-2017 10:34-0500 BP Systolic 134 mm[Hg] [facility] Work Phone: 02-06-2017 10:34-0500 Height 172.72 cm Marva [facility] Work Phone: 02-06-2017 10:34-0500 Pulse (Heart Rate) 100 /min [facility] Work Phone: 02-06-2017 10:34-0500 Respiratory Rate 16 /min [facility] Work Phone: 02-06-2017 10:34-0500 Weight 125.19 kg Marva [facility] Work Phone: 12-03-2016 09:28-0400 BMI (Body Mass Index) 41.2 kg/m2 Mojgan Sher[facility] [employer] [facility] Work Phone: 12-03-2016 09:28-0400 BP Diastolic 80 mm[Hg] Mojgan [facility] Work Phone: 12-03-2016 09:28-0400 BP Systolic 164 mm[Hg] Mojgan [facility] Work Phone: 12-03-2016 09:28-0400 Height 172.72 cm Mojgan [facility] Work Phone: 12-03-2016 09:28-0400 Pulse (Heart Rate) 84 /min Mojgan [facility] Work Phone: 12-03-2016 09:28-0400 Respiratory Rate 18 /min Mojgan [facility] Work Phone: 12-03-2016 09:28-0400 Weight 122.93 kg Mojgan Obando RN [facility] Work Phone: 12-03-2016 09:28-0400 Weight 122.92 kg Mojgan Obando RN [facility] Work Phone: 02-03-2016 09:18-0500 BSA (Body Surface Area) 2.35 m2 Mojgan Obando RN [facility] Work Phone: 12-25-2012 13:18-0400 Height 172.72 cm Mojgan Obando RN [facility] Work Phone: Encounters Encounter Date Encounter Type Care Provider Facility Start: 05-22-2023 Telephone encounter Krishna abernathy MD Work Phone: [facility] Start: 03-13-2023 Refill Regulo ríos MD Work Phone: [facility] Home Delivery Procedures Date Procedure Procedure Detail Performing Clinician Start: 12-07-2022 INFLUENZA VACCINE, PRSV FREE, AGE 65+ YR, HIGH DOSE, QUADRIVALENT (FLUZONE HIGH-DOSE) Leila Older [employer].INSPECTOR [employer] Work Phone: Start: 11-30-2022 Hemoglobin A1c/Hemoglobin.total in Blood [facility] Provider Start: 10-01-2022 [employer] COVID-19 BIVALENT VACCINE, AGE 12+ YR Krishna Reynolds MD Work Phone: Start: 08-27-2022 Echo tthrc r-t 2d w/wom-mode compl spec&colr d Regulo Stover MD Work Phone: Start: 08-27-2022 LVEF TRANSTHORACIC ECHO Regulo pierce MD Work Phone: Start: 11-30-2020 Adult depression screening assessment Krishna Reynolds MD Work Phone: Start: 09-17-2019 History of amputation of foot History of partial amputation of toe Regulo Lamas RN Work Phone: Start: 02-06-2017 End: 02-07-2017 *CBC with Differential Son Deluna MD Start: 02-06-2017 End: 02-06-2017 Ecg routine ecg w/least 12 lds w/i&r Son Deluna MD Start: 02-06-2017 End: 02-07-2017 Thyrotropin [Units/volume] in Serum or Plasma Son Deluna MD Start: 02-06-2017 End: 02-07-2017 Thyroxine (T4) [Mass/volume] in Serum or Plasma Son Deluna MD Start: 12-03-2016 End: 12-24-2016 *BMP Son Deluna MD Start: 12-03-2016 End: 12-03-2016 Follow Up Appt 6 months Son Deluna MD Start: 12-03-2016 End: 12-03-2016 MMM Son Deluna MD Start: 02-03-2016 End: 02-03-2016 Follow Up Appt 9 months Son Deluna MD Start: 02-03-2016 End: 02-03-2016 PFM Son Deluna MD Start: 05-25-2015 End: 06-15-2016 *Hepatic Function Panel Son Deluna MD Start: 05-25-2015 End: 06-15-2016 Lipid 1996 panel - Serum or Plasma Son Deluna MD Start: 05-23-2015 End: 02-06-2017 Follow Up Appt 6 months Son Deluna MD Start: 05-23-2015 End: 02-06-2017 Follow Up Appt Other Son Deluna MD Start: 05-23-2015 End: 02-06-2017 MMM Son Deluna MD Start: 11-16-2014 End: 11-17-2014 Documentation of current medications Brea Sanders PA-C Work Phone: Start: 11-16-2014 End: 02-06-2017 Follow Up Appt 6 months Brea gorman PA-C Work Phone: Start: 11-16-2014 End: 05-23-2015 Follow Up Appt Other Brea romero PA-C Work Phone: Start: 11-16-2014 End: 02-06-2017 PFM Brea Sanders PA-C Work Phone: Start: 08-25-2014 End: 08-26-2014 Documentation of current medications Son Deluna MD Start: 08-25-2014 End: 11-09-2014 Follow Up Appt Other Son Deluna MD Start: 05-21-2014 End: 05-22-2014 Documentation of current medications Son Deluna MD Start: 05-21-2014 End: 05-21-2014 Ecg routine ecg w/least 12 lds w/i&r Son Deluna MD Start: 05-21-2014 End: 05-21-2014 Follow Up Appt 6 months Son Deluna MD Start: 05-21-2014 End: 05-21-2014 MMM Son Deluna MD Start: 01-06-2014 End: 02-22-2014 INR in Platelet poor plasma by Coagulation assay Son Deluna MD Start: 09-21-2013 End: 02-22-2014 *Hepatic Function Panel Brea gorman PA-C Work Phone: Start: 09-21-2013 End: 09-21-2013 Follow Up Appt 6 months Brea gorman PA-C Work Phone: Start: 09-21-2013 End: 02-22-2014 Lipid 1996 panel - Serum or Plasma Brea Sanders PA-C Work Phone: Start: 09-21-2013 End: 09-21-2013 PFM rBea Sanders PA-C Work Phone: Start: 05-28-2013 End: 05-28-2013 Ecg routine ecg w/least 12 lds w/i&r Son Deluna MD Start: 05-27-2013 End: 09-01-2013 Ambulatory BP Monitor 24 HR Son fowler MD Start: 05-11-2013 End: 05-11-2013 Ecg routine ecg w/least 12 lds w/i&r Son Deluna MD Start: 05-11-2013 End: 05-11-2013 Follow Up Appt Other Son Deluna MD Start: 02-27-2013 End: 02-27-2013 Ecg routine ecg w/least 12 lds w/i&r Brea Sanders PA-C Work Phone: Start: 02-27-2013 End: 11-09-2014 Follow Up Appt Other Brea romero PA-C Work Phone: Start: 02-13-2013 End: 08-06-2013 *Hepatic Function Panel Son Deluna MD Start: 02-13-2013 End: 02-13-2013 Follow Up Appt 6 months Son Deluna MD Start: 02-13-2013 End: 08-06-2013 Lipid 1996 panel - Serum or Plasma Son Deluna MD Start: 02-13-2013 End: 02-13-2013 MMM Son Deluna MD Start: 01-07-2013 End: 09-01-2013 INR in Platelet poor plasma by Coagulation assay Son Deluna MD Start: 12-25-2012 End: 01-07-2013 Chest x-ray Son Deluna MD Start: 12-25-2012 End: 01-07-2013 Ecg routine ecg w/least 12 lds w/i&r Son Deluna MD Start: 12-25-2012 End: 01-07-2013 Echocardiography Son Deluna MD Start: 12-25-2012 End: 02-27-2013 Follow Up Appt 6 weeks Son Deluna MD Start: 12-25-2012 End: 11-09-2014 Follow Up Appt Other Son Deluna MD Start: 12-25-2012 End: 01-07-2013 INR in Platelet poor plasma by Coagulation assay Son Deluna MD Start: 12-25-2012 End: 02-27-2013 PFM Son Deluna MD Plan of Treatment Date Care Activity Detail Author Start: 12-18-2025 Cologuard (FIT-DNA) Cologuard (FIT-DNA) [facility] Start: 12-18-2025 Colorectal Cancer Screening Colorectal Cancer Screening [facility] Start: 12-18-2025 Screening for malignant neoplasm of colon [facility] Start: 05-07-2024 Glaucoma screening Dilated Retinal Exam [facility] Start: 03-11-2024 Annual PCP Team Chronic Disease Visit Annual PCP Team Chronic Disease Visit [facility] Start: 03-11-2024 BP Controlled (<130/80) BP Controlled (<130/80) [facility] Start: 02-16-2024 Hepatitis B screening Urine Albumin:Creatinine Ratio [facility] Start: 02-16-2024 Urine microalbumin profile [facility] Start: 12-08-2023 Annual PCP Team Chronic Disease Visit Annual PCP Team Chronic Disease Visit [facility] Start: 12-08-2023 BP Controlled (<130/80) BP Controlled (<130/80) [facility] Start: 10-02-2023 ANNUAL PCP TEAM CHRONIC DISEASE VISIT ANNUAL PCP TEAM CHRONIC DISEASE VISIT [facility] Start: 08-14-2023 BP CONTROLLED (<130/80) BP CONTROLLED (<130/80) [facility] in Start: 06-02-2023 3 comp foot exam completed DIABETIC FOOT EXAM [facility] Start: 06-02-2023 ANNUAL PCP TEAM CHRONIC DISEASE VISIT ANNUAL PCP TEAM CHRONIC DISEASE VISIT [facility] Start: 06-02-2023 BP CONTROLLED (<130/80) BP CONTROLLED (<130/80) [facility] in Start: 06-02-2023 Diabetic foot examination Diabetic Foot Exam [facility] Start: 05-31-2023 Hemoglobin A1c measurement HbA1C [facility] Start: 05-31-2023 Hemoglobin A1c/Hemoglobin.total in Blood HbA1C [facility] Start: 05-26-2023 Hepatitis B screening URINE ALBUMIN:CREATININE RATIO [facility] Start: 05-26-2023 Hepatitis B surface antibody level LDL CHOLESTEROL [facility] Start: 05-24-2023 End: 08-23-2023 Comprehensive metabolic 2000 panel - Serum or Plasma COMP METABOLIC PANEL Lab Routine Type 2 diabetes mellitus with diabetic neuropathy, with long-term current use of insulin (HCC) Expected: 05/24/2023, Expires: 08/23/2023 [facility] Work Phone: Immunizations Immunization Date Immunization Notes Care Provider Kimmy castañeda 01-13-2023 COVID-19 vaccine, ag e 12+ yr, season (MODERNA) Nhung Hou MA [facility] 12-07-2022 influenza (HD-IIV4) vaccine, age 65+ yr, high dose, quadrivalent, PF (FLUZONE HIGH-DOSE) Leila Older [employer].INSPECTOR [employer] Work Phone: [facility] 12-06-2022 respiratory syncytia l virus (RSV) vaccine, bivalent (ABRYSVO) Leila Older [employer].INSPECTOR [employer] Work Phone: [facility] 10-01-2022 COVID-19 vaccine, ag e 12+ yr, bivalent (PFIZER-BIONTMister Spex) Krishna Reynolds MD Work Phone: [facility] Work Phone: 12-06-2021 COVID-19 booster vaccine, age 12+ yr, bivalent (PFIZER-BIONTECH) Regulo Stover MD Work Phone: [facility] Work Phone: 11-10-2021 influenza (aIIV4) vaccine, age 65+ yr, quadrivalent, PF (FLUAD QUAD) Krishna Reynolds MD Work Phone: [facility] Work Phone: 11-10-2021 influenza virus vaccine, unspecified formulation Krishna Reynolds MD Work Phone: [facility] 09-08-2021 pneumococcal (PCV20) vaccine, 20 valent (PREVNAR 20) Krishna Reynolds MD Work Phone: [facility] Work Phone: 09-08-2021 pneumococcal Conjuga te, unspecified formulation Krishna Reynolds MD Work Phone: [facility] Work Phone: 11-08-2020 COVID-19 vaccine, ag e 12+ yr (PFIZER-BIONTECH - PURPLE TOP) Krishna Reynolds MD Work Phone: [facility] Work Phone: 11-08-2020 influenza, high dose seasonal, preservative-free Krishna Reynolds MD Work Phone: [facility] Work Phone: 06-16-2020 COVID-19 vaccine, ag e 12+ yr (PFIZER-BIONTECH - PURPLE TOP) Krishna Reynolds MD Work Phone: [facility] Work Phone: 05-26-2020 COVID-19 vaccine, ag e 12+ yr (PFIZER-BIONTECH - PURPLE TOP) Krishna Reynolds MD Work Phone: [facility] Work Phone: 02-08-2020 zoster vaccine recombinant Krishna Reynolds MD Work Phone: [facility] Work Phone: 12-08-2019 influenza, high dose seasonal, preservative-free Krishna Reynolds MD Work Phone: [facility] Work Phone: 12-08-2019 zoster vaccine recombinant Krishna Reynolds MD Work Phone: [facility] Work Phone: 11-03-2018 influenza, high dose seasonal, preservative-free Krishna Reynolds MD Work Phone: [facility] Work Phone: 12-26-2016 influenza, seasonal, injectable Krishna Reynolds MD Work Phone: [facility] Work Phone: 10-17-2016 pneumococcal polysaccharide vaccine, 23 valent Krishna Reynolds MD Work Phone: [facility] 11-16-2015 influenza, high dose seasonal, preservative-free Krishna Reynolds MD Work Phone: [facility] 09-06-2015 pneumococcal conjuga te vaccine, 13 valent Krishna Reynolds MD Work Phone: [facility] 12-14-2014 influenza, seasonal, injectable Krishna Reynolds MD Work Phone: [facility] 02-15-2014 tetanus toxoid, redu glenroy diphtheria toxoid, and acellular pertussis vaccine, adsorbed Krishna Reynolds MD Work Phone: [facility] 12-14-2013 influenza virus vaccine, whole virus Krishna Reynolds MD Work Phone: [facility] Work Phone: 11-17-2012 influenza virus vaccine, unspecified formulation Krishna Reynolds MD Work Phone: [facility] 01-30-2012 zoster vaccine, live Krishna Reynolds MD Work Phone: [facility] Work Phone: 11-27-2011 influenza virus vaccine, whole virus Krishna Reynolds MD Work Phone: [facility] Work Phone: 02-23-2004 pneumococcal polysaccharide vaccine, 23 valent Krishna Reynolds MD Work Phone: [facility] Work Phone: 02-23-2004 tetanus and diphther ia toxoids, not adsorbed, for adult use Krishna Reynolds MD Work Phone: [facility] Work Phone: NEGATED: Highlighted row has not occurred!01-30-2012 influenza virus vaccine, unspecified formulation Krishna Reynolds MD Work Phone: [facility] Work Phone: Payers Date Payer Category Payer [facility] Insurance [facility] AARP SUPPLEMENT [id number] 2015-Present [phone] [address] [place] [address] Indemnity [id number] 2015 [facility] Insurance [facility] AARP SUPPLEMENT [id number] 2015-Present [phone] [address] [place] [address] Indemnity [id number] 2015 Unknown [id number] 2011 Medicare MEDICARE MEDICAR E A AND B [id number] 2011-Present [phone] [place] [address] Medicare [id number] 2011 Medicare MEDICARE MEDICAR E A AND B [id number] 2011-Present [phone] [place] [address] Medicare [id number] 2011 Medicare [id number] Social History Date Type Detail Facility Start: 03-31-2020 End: 01-26-2022 Tobacco smoking status NHIS Never smoked tobacco [facility] Start: 03-31-2020 End: 01-26-2022 Tobacco use and exposure User of smokeless tobacco [facility] Start: 05-26-2021 End: 03-11-2023 Alcohol intake Current drinker of alcohol (finding) [facility] Start: 02-27-2010 History SDOH Alcohol Comment Rare [facility] Start: 1950 Sex Assigned At Not on file [facility] Start: 08-29-2021 End: 01-15-2022 Exposure to SARS-CoV-2 (event) Not sure [facility] Work Phone: History of tobacco use Cigarette Smoker [facility] Start: 08-13-2022 End: 10-01-2022 History of Social function [facility] Work Phone: Start: 08-13-2022 End: 10-01-2022 Tobacco use panel [facility] Work Phone: Adult Depression Screening Assessment 1 [facility] Work Phone: Medical Equipment Procedure Code Equipment Code Equipment Origin al Text Equipment Identifier Dates Start: 07-03-2011 End: 06-01-2022 Clinical Notes 02-10-2020 to 05-22-2023 Telephone Encounter - Roxanna Dennis LPN - 05/22/2023 2:49 PM ESTTelephone Encounter - Krishna Reynolds MD - 05/22/2023 1:15 PM Nhung Schwartz MA - 01/14/2023 11:44 AM EDT Note Date & Type Note Facility 05-22-2023 Miscellaneous Notes Orders faxed to [facility] Lab, notified. Roxanna Dennis LPN Fasting CMP, Lipids, A1C orders printed. Pt reports his appt with pcp is 06-07-23 and he would like pcp to order labs and send orders to [facility] lab for him to complete. He plans to get them done on 05-29 or . Reports he needs pcp to order cholesterol lab because Dr. Stover has him on a cholesterol injection, Praluent. Asking pcp to send order for that and whatever else you think he needs. Please notify pt when these are sent to [facility] lab. documented in this encounter [facility] 03-13-2023 Miscellaneous Notes Please resend Praluent order to [facility]. We originally received an order from you on 03/11/23. Then PCP provider d/c'd the order and resent to [facility] on 03/12/23 which they then called to discontinue. So We spoke to patient and patient is requesting to fill with [facility] as we have a adelina on file to help pay for medication. Thank you kindly, Natalie Mena, Pharmacist [facility] [phone] (phone) [phone] (fax) documented in this encounter [facility] 03-11-2023 Note HNO ID: [id number] Author: Regulo Stover MD Service: ? Author Type: Physician Type: Progress Notes Filed: 03/11/2023 11:20 AM Note Text: [facility]IOLOGY [facility] [address] [facility] [address] OUTPATIENT VISIT DATE 03/11/2023 PRIMARY CARE PHYSICIAN: Krishna Reynolds [address] [place] [address] HISTORY OF PRESENT ILLNESS: Mr. Moya is a 72 year old morbidly obese gentleman with a history of coronary artery disease and prior high risk coronary intervention, diabetes (insulin requiring), chronic diastolic congestive heart failure, hypertension, obstructive sleep apnea (noncompliant with CPAP) and dyslipidemia who presents for routine follow-up. Patient has baseline shortness of breath on exertion. He still continues to exercise on a daily basis. He has not had symptoms concerning for CHF including PND, orthopnea,. He has had some lower extremity edema and is recently been seen for possible venous stasis ulcer. He has not had symptoms of palpitations, heart racing, lightheadedness, or dizziness. PAST MEDICAL HISTORY Diagnosis Date Acute kidney injury (DANIELA) with acute tubular necrosis (ATN) (HCC) 11/06/2019 CAD (coronary artery disease) 10/07/2007 70% stenosis circumflex 2nd marginal branch. Drug eluting stent done. Diabetic ulcer of toe of left foot associated with type 2 diabetes mellitus (HCC) 06/21/2020 Esophageal reflux Generalized osteoarthrosis, unspecified site Nephrolithiasis 10/17/2016 NEUROPATHY IN DIABETES 01/30/2006 Nonspecific abnormal results of liver function study Obesity, unspecified JAMES (obstructive sleep apnea) 08/13/2013 declined tx Osteomyelitis of second toe of right foot (HCC) 09/17/2019 Osteomyelitis of third toe of right foot (HCC) 09/17/2019 Other and unspecified hyperlipidemia Paroxysmal atrial fibrillation (HCC) 10/07/2007 Personal history of contact with and (suspected) exposure to asbestos Type II or unspecified type diabetes mellitus without mention of complication, not stated as uncontrolled Unspecified essential hypertension Unspecified venous (peripheral) insufficiency PAST SURGICAL HISTORY Procedure Laterality Date ADENOIDECTOMY PRIMARY Adenoidectomy AMPUTATION TOE INTERPHALANGEAL JOINT Right 09/17/2019 2nd, 3rd toes, right foot AMPUTATION TOE,MT-P JT Left 08/19/2020 distal Symes 2nd AND 3rd toe, Left CC CORONARY STENT 07/01/2020 left main, proximal to mild LAD CYSTOSCOPY 06/23/2014 LEFT HEART CATH,PERCUTANEOUS 10/07/2007 Cardiac cath, L heart LEFT HEART CATH,PERCUTANEOUS 12/29/2019 [facility] TONSILLECTOMY PRIMARY/SECONDARY Tonsillectomy TRANSCATH STENT INIT VESSEL,PERCUT 11/10/2007 Transcath stent init vessel percut, DILIA VASECTOMY UNI/BI SPX W/POSTOP SEMEN EXAMS 1977 SOCIAL HISTORY Social History Tobacco Use Smoking status: Never Smokeless tobacco: Current Types: Chew Vaping Use Vaping Use: Never used Substance Use Topics Alcohol use: Yes Comment: Rare Drug use: Never FAMILY HISTORY Problem Relation Age of Onset Heart Father Hypertension Mother Stroke Mother Lipids Mother Thyroid Sister Cancer Brother bladder and kidney ALLERGIES: ALLERGIES Allergen Reactions Metolazone Rash Altace [Ramipril] Intolerance Bactrim [Sulfametho* Hives Diovan [Valsartan] Propofol Other: See Comments agitation Ramipril Seasonal Allergies Other: See Comments Inzxlfy-Dkw-Tqf Red* Other: See Comments Muscle aches MEDICATIONS: doxycycline monohydrate 100 mg tabletTake 1 tablet by mouth two times a day for 7 days.Disp: 14 tabletRfl: 0 spironolactone (ALDACTONE) 25 mg tabletTake 1 tablet by mouth once daily.Disp: 90 tabletRfl: 3 furosemide (LASIX) 80 mg tabletTake 1 tablet by mouth twice daily. Three times per day as directed PRNDisp: 225 tabletRfl: 3 insulin degludec (TRESIBA FLEXTOUCH U-200) 200 unit/mL (3 mL) injectionInject 120 Units subcutaneously daily at bedtime.Disp: 20 EachRfl: 3 amLODIPine (NORVASC) 2.5 mg tabletTake 1 tablet by mouth once daily.Disp: 90 tabletRfl: 3 metoprolol tartrate, short acting, (LOPRESSOR) 50 mg tabletTake 1 tablet by mouth three times daily.Disp: Rfl: nitroglycerin sublingual (NITROQUICK) 0.4 mg SL tabletDissolve 1 tablet under the tongue every 5 minutes as needed for chest pain. IF NO PAIN RELIEF WITH 2ND DOSE, CALL 911Disp: 25 tabletRfl: 2 clopidogrel (PLAVIX) 75 mg tabletTake 1 tablet by mouth once daily.Disp: 90 tabletRfl: 3 insulin aspart U-100 (NOVOLOG FLEXPEN U-100 INSULIN) 100 unit/mL (3 mL)Inject 25 units 3 times a day with meals PLUS Sliding scale as based on pre meal blood sugar as directed (~ 68 units daily)Disp: 25 EachRfl: 3 pen needle, diabetic (UNIFINE PENTIPS PLUS) 33 gauge x 5/32 ndleUse with insulin four times daily. E11.40, Z79.4Disp: 400 Ea (more content not included)... [facility] 03-11-2023 Note HNO ID: [id number] Author: Leila Suárez, PEREZ.INSPECTOR FIBROUS WALLBOARD Service: ? Author Type: Nurse Practitioner Type: Progress Notes Filed: 03/11/2023 8:48 AM Note Text: CC: Patient presents with: right leg infection HPI Miguelangel Moya is a 72 year old male who presents today for above. Patient reports small open wound on the left inner calf that developed purulent drainage, redness and swelling this a few days ago. Area is painful. Denies red streaking or fever. has been dressing the wound. He has frequent ulcers on his legs, treated previously at [facility] wound center. Review of Systems See HPI PAST MEDICAL HISTORY Diagnosis Date Acute kidney injury (DANIELA) with acute tubular necrosis (ATN) (HCC) 11/06/2019 CAD (coronary artery disease) 10/07/2007 70% stenosis circumflex 2nd marginal branch. Drug eluting stent done. Diabetic ulcer of toe of left foot associated with type 2 diabetes mellitus (HCC) 06/21/2020 Esophageal reflux Generalized osteoarthrosis, unspecified site Nephrolithiasis 10/17/2016 NEUROPATHY IN DIABETES 01/30/2006 Nonspecific abnormal results of liver function study Obesity, unspecified JAMES (obstructive sleep apnea) 08/13/2013 declined tx Osteomyelitis of second toe of right foot (HCC) 09/17/2019 Osteomyelitis of third toe of right foot (HCC) 09/17/2019 Other and unspecified hyperlipidemia Paroxysmal atrial fibrillation (HCC) 10/07/2007 Personal history of contact with and (suspected) exposure to asbestos Type II or unspecified type diabetes mellitus without mention of complication, not stated as uncontrolled Unspecified essential hypertension Unspecified venous (peripheral) insufficiency PAST SURGICAL HISTORY Procedure Laterality Date ADENOIDECTOMY PRIMARY Adenoidectomy AMPUTATION TOE INTERPHALANGEAL JOINT Right 09/17/2019 2nd, 3rd toes, right foot AMPUTATION TOE,MT-P JT Left 08/19/2020 distal Symes 2nd AND 3rd toe, Left CC CORONARY STENT 07/01/2020 left main, proximal to mild LAD CYSTOSCOPY 06/23/2014 LEFT HEART CATH,PERCUTANEOUS 10/07/2007 Cardiac cath, L heart LEFT HEART CATH,PERCUTANEOUS 12/29/2019 [facility] TONSILLECTOMY PRIMARY/SECONDARY Tonsillectomy TRANSCATH STENT INIT VESSEL,PERCUT 11/10/2007 Transcath stent init vessel percut, DILIA VASECTOMY UNI/BI SPX W/POSTOP SEMEN EXAMS 1977 ALLERGIES Metolazone, Altace [Ramipril], Bactrim [Sulfamethoxazole-Trimethoprim] , Diovan [Valsartan], Propofol, Ramipril, Seasonal Allergies, and Sspdryx-Kla-Zoo Reductase Inhibitors MEDICATIONS spironolactone (ALDACTONE) 25 mg tabletTake 1 tablet by mouth once daily.Disp: 90 tabletRfl: 3 furosemide (LASIX) 80 mg tabletTake 1 tablet by mouth twice daily. Three times per day as directed PRNDisp: 225 tabletRfl: 3 insulin degludec (TRESIBA FLEXTOUCH U-200) 200 unit/mL (3 mL) injectionInject 120 Units subcutaneously daily at bedtime.Disp: 20 EachRfl: 3 amLODIPine (NORVASC) 2.5 mg tabletTake 1 tablet by mouth once daily.Disp: 90 tabletRfl: 3 metoprolol tartrate, short acting, (LOPRESSOR) 50 mg tabletTake 1 tablet by mouth three times daily.Disp: Rfl: nitroglycerin sublingual (NITROQUICK) 0.4 mg SL tabletDissolve 1 tablet under the tongue every 5 minutes as needed for chest pain. IF NO PAIN RELIEF WITH 2ND DOSE, CALL 911Disp: 25 tabletRfl: 2 clopidogrel (PLAVIX) 75 mg tabletTake 1 tablet by mouth once daily.Disp: 90 tabletRfl: 3 insulin aspart U-100 (NOVOLOG FLEXPEN U-100 INSULIN) 100 unit/mL (3 mL)Inject 25 units 3 times a day with meals PLUS Sliding scale as based on pre meal blood sugar as directed (~ 68 units daily)Disp: 25 EachRfl: 3 pen needle, diabetic (UNIFINE PENTIPS PLUS) 33 gauge x 5/32 ndleUse with insulin four times daily. E11.40, Z79.4Disp: 400 EachRfl: 2 flash glucose scanning reader (FREESTYLE MERCY 2 READER)Test blood sugar(s) 4-5 times daily Dx: Type 2 DM - Uncontrolled Insulin: YesDisp: 1 EachRfl: 5 flash glucose sensor (FREESTYLE MERCY 2 SENSOR) kitTest blood sugar(s) 4-5 times daily Dx: Type 2 DM - Uncontrolled Insulin: YesDisp: 1 EachRfl: 2 blood sugar diagnostic (BLOOD GLUCOSE TEST) test stripTest blood sugar(s) 4-5 times daily Dx: Type 2 DM - Uncontrolled E11.65 Insulin: YesDisp: 200 StripRfl: 3 BIOTIN ORALTake 1 tablet by mouth once daily.Disp: Rfl: Fish Oil-Ensign-3 Fatty Acids (FISH OIL OMEGA 3-6-9) 300-1,000 mg CpDRTake 3000 mg daily.Disp: Rfl: 0 Lancets (ONE TOUCH ULTRASOFT LANCETS) Misc lancetstwice daily. Use as instructed ( may dispense Deuca brand)Disp: 100 EachRfl: 11 aspirin, enteric coated (ASPIRIN, ENTERIC COATED) 325 mg EC tabletTake 1 tablet by mouth once daily.Disp: Rfl: 0 MULTIVITAMIN TABTake one(1) tablet daily.Disp: Rfl: 0 VITAMIN C 1,000 MG TABTake one(1) tablet daily.Disp: Rfl: 0 FAMILY HISTORY Problem Relation Age of Onset Heart Father Hypertension Mother Stroke Mother Lipids Mother Thyroid Sister Cancer Brother bladder and kidne (more content not included)... [facility] 01-14-2023 Note Patient Outreach (NE TNAV) MIGUELANGEL MOYA ([id number]) 1950 M Date Time Provider Department 01/14/23 [facility] During your visit today, we recorded the following information about you: Nhung Hou MA 01/14/2023 11:52 AM Signed POPULATION HEALTH NAVIGATION OUTREACH Action/FYI Updated HgbA1C 5.9 on 11-30-22 Patient Identified by Name and : NO Outreach Outcome/Action Unable to reach patient: updated HgbA1c Did you use a PCP flex slot to schedule this appointment? No Reason for Outreach Care Gap or Scheduling/Wellness visits Payer: Payor: MEDICARE / Plan: MEDICARE A AND B / Product Type: Medicare / Care Gap Reviewed:: N/A Reminder: Reminder note to check Health Maintenance for items below Health Maintenance items due: Hepatitis B Vaccine(1 of 3 - Risk 3-dose series) Never done HbA1C due on 11/15/2021 Navigation Signature: Nhung Hou MA January 14, 2023 11:44 AM Allergies As of Date: 01/14/2023 Noted Allergy Reaction METOLAZONE 01/15/2022 2 - Rash ALTACE (RAMIPRIL) 12/29/2004 5 - Intolerance BACTRIM (SULFAMETHOXAZOLE-TRIMETH*08/15 4 - Hives DIOVAN (VALSARTAN) 12/29/2004 PROPOFOL 02/10/2020 14 - Other: See Comments Comments: agitation RAMIPRIL 11/05/2007 SEASONAL ALLERGIES 08/04/2012 14 - Other: See Comments [id number] REDUCTASE INHIBIT*06/18/2011 14 - Other: See Comments Comments: Muscle aches Date Reviewed: 12/07/2022 Reviewed by: Leila Russell APRN.INSPECTOR FIBROUS WALLBOARD - Fully Assessed Reason for Visit: Population Health Navigation Outreach [3910] Cmt: ACO CARE GAP Order(s):HGB A1C [LETFJ6N] Order #: [id number] Prescriptions as of 01/14/2023 - spironolactone (ALDACTONE) 25 mg tablet Take 1 tablet by mouth once daily. - furosemide (LASIX) 80 mg tablet Take 1 tablet by mouth twice daily. Three times per day as directed PRN - insulin degludec (TRESIBA FLEXTOUCH U-200) 200 unit/mL (3 mL) injection Inject 120 Units subcutaneously daily at bedtime. - amLODIPine (NORVASC) 2.5 mg tablet Take 1 tablet by mouth once daily. - metoprolol tartrate, short acting, (LOPRESSOR) 50 mg tablet Take 1 tablet by mouth three times daily. - nitroglycerin sublingual (NITROQUICK) 0.4 mg SL tablet Dissolve 1 tablet under the tongue every 5 minutes as needed for chest pain. IF NO PAIN RELIEF WITH 2ND DOSE, CALL 911 - clopidogrel (PLAVIX) 75 mg tablet Take 1 tablet by mouth once daily. - insulin aspart U-100 (NOVOLOG FLEXPEN U-100 INSULIN) 100 unit/mL (3 mL) Inject 25 units 3 times a day with meals PLUS Sliding scale as based on pre meal blood sugar as directed (~ 68 units daily) - pen needle, diabetic (UNIFINE PENTIPS PLUS) 33 gauge x 5/32 ndle Use with insulin four times daily. E11.40, Z79.4 - flash glucose scanning reader (FREESTYLE MERCY 2 READER) Test blood sugar(s) 4-5 times daily Dx: Type 2 DM - Uncontrolled Insulin: Yes - flash glucose sensor (FREESTYLE MERCY 2 SENSOR) kit Test blood sugar(s) 4-5 times daily Dx: Type 2 DM - Uncontrolled Insulin: Yes - blood sugar diagnostic (BLOOD GLUCOSE TEST) test strip Test blood sugar(s) 4-5 times daily Dx: Type 2 DM - Uncontrolled Insulin: Yes - BIOTIN ORAL Take 1 tablet by mouth once daily. - Fish Oil-Ensign-3 Fatty Acids (FISH OIL OMEGA 3-6-9) 300-1,000 mg CpDR Take 3000 mg daily. - Lancets (ONE TOUCH ULTRASOFT LANCETS) Misc lancets twice daily. Use as instructed ( may dispense Deuca brand) - aspirin, enteric coated (ASPIRIN, ENTERIC COATED) 325 mg EC tablet Take 1 tablet by mouth once daily. - MULTIVITAMIN TAB Take one(1) tablet daily. - VITAMIN C 1,000 MG TAB Take one(1) tablet daily. Facility-Administered Medications as of 01/14/2023 - perflutren lipid microspheres 1.3 mL in NaCl (PF) 0.9% 10 mL injection (DEFINITY) - sodium chloride 0.9 % (flush) 10 mL (BD POSIFLUSH) Problem List As Of Date 01/14/2023 Noted Resolved GENERAL OSTEOARTHROSIS [M15.9] ESOPHAGEAL REFLUX [K21.9] Venous (peripheral) insufficiency [I87.2] Personal history of contact with and (suspected* 08/19/2014 Type 2 diabetes mellitus with diabetic neuropat* Class 3 severe obesity with body mass index (BM* Nonspecific abnormal results of liver function * 08/19/2014 Other hyperlipidemia [E78.49] Essential hypertension [I10] Diabetic polyneuropathy (HCC) [E11.42] 01/30/2006 04/24/2018 Coronary artery disease of alutiiq artery of thai*10/07/2007 Persistent atrial fibrillation (HCC) [I48.19] 10/07/2007 JAMES (obstructive sleep apnea) [G47.33] 08/13/2013 08/19/2014 Memory disturbance [R41.3] 08/13/2013 Hematuria [R31.9] 05/31/2014 08/19/2014 BPH (benign prostatic hyperplasia) [N40.0] 05/31/2014 Chronic anticoagulation [Z79.01] 05/31/2014 08/19/2014 History of smoking [Z87.891] 05/31/2014 08/19/2014 Nephrolithiasis [N20.0] 10/17/2016 04/24/2018 Skin ulcer of toe of right foot, limite (more content not included)... [facility] 01-14-2023 Note HNO ID: [id number] Author: Nhung Hou MA Service: ? Author Type: Pie Topper Type: Progress Notes Filed: 01/14/2023 11:52 AM Note Text: POPULATION HEALTH NAVIGATION OUTREACH Action/FYI Updated HgbA1C 5.9 on 11-30-22 Patient Identified by Name and : NO Outreach Outcome/Action Unable to reach patient: updated HgbA1c Did you use a PCP flex slot to schedule this appointment? No Reason for Outreach Care Gap or Scheduling/Wellness visits Payer: Payor: MEDICARE / Plan: MEDICARE A AND B / Product Type: Medicare / Care Gap Reviewed:: N/A Reminder: Reminder note to check Health Maintenance for items below Health Maintenance items due: Hepatitis B Vaccine(1 of 3 - Risk 3-dose series) Never done HbA1C due on 11/15/2021 Navigation Signature: Nhung Hou MA January 14, 2023 11:44 AM [facility] 01-14-2023 History of Presen t illness Narrative POPULATION HEALTH NAVIGATION OUTREACH Action/FYI Updated HgbA1C 5.9 on 11-30-22 Patient Identified by Name and : NO Outreach Outcome/Action Unable to reach patient: updated HgbA1c Did you use a PCP flex slot to schedule this appointment? No Reason for Outreach Care Gap or Scheduling/Wellness visits Payer: Payor: MEDICARE / Plan: MEDICARE A AND B / Product Type: Medicare / Care Gap Reviewed:: N/A Reminder: Reminder note to check Health Maintenance for items below Health Maintenance items due: Hepatitis B Vaccine(1 of 3 - Risk 3-dose series) Never done HbA1C due on 11/15/2021 Navigation Signature: Nhung Hou MA January 14, 2023 11:44 AM documented in this encounter [facility] 01-14-2023 Miscellaneous Notes called to see if we received results for the Cologuard test . Results given negative. Josefina Qureshi LPN documented in this encounter [facility] 12-07-2022 Note HNO ID: [id number] Author: Leila Russell APRN.INSPECTOR FIBROUS WALLBOARD Service: ? Author Type: Nurse Practitioner Type: Progress Notes Filed: 12/07/2022 8:29 AM Note Text: CC: Patient presents with: F/U 6 months HPI Miguelangel Moya is a 72 year old male who presents today for above. Denies any concerns or issues today. Feeling well overall. Taking all medications as prescribed, denies side effects. BLE venous insufficiency wounds and edema managed by [facility] wound center, wounds are healed and edema controlled with compression socks. Blood sugars have been averaging around 100 and weight is decreasing, he is watching portion sizes and carb intake. REVIEW OF SYSTEMS GENERAL: Negative for malaise, significant weight loss and fever RESPIRATORY: Negative for cough, wheezing and shortness of breath CARDIOVASCULAR: Negative for chest pain, leg swelling and palpitations PAST MEDICAL HISTORY Diagnosis Date Acute kidney injury (DANIELA) with acute tubular necrosis (ATN) (HCC) 11/06/2019 CAD (coronary artery disease) 10/07/2007 70% stenosis circumflex 2nd marginal branch. Drug eluting stent done. Diabetic ulcer of toe of left foot associated with type 2 diabetes mellitus (HCC) 06/21/2020 Esophageal reflux Generalized osteoarthrosis, unspecified site Nephrolithiasis 10/17/2016 NEUROPATHY IN DIABETES 01/30/2006 Nonspecific abnormal results of liver function study Obesity, unspecified JAMES (obstructive sleep apnea) 08/13/2013 declined tx Osteomyelitis of second toe of right foot (HCC) 09/17/2019 Osteomyelitis of third toe of right foot (HCC) 09/17/2019 Other and unspecified hyperlipidemia Paroxysmal atrial fibrillation (HCC) 10/07/2007 Personal history of contact with and (suspected) exposure to asbestos Type II or unspecified type diabetes mellitus without mention of complication, not stated as uncontrolled Unspecified essential hypertension Unspecified venous (peripheral) insufficiency PAST SURGICAL HISTORY Procedure Laterality Date ADENOIDECTOMY PRIMARY Adenoidectomy AMPUTATION TOE INTERPHALANGEAL JOINT Right 09/17/2019 2nd, 3rd toes, right foot AMPUTATION TOE,MT-P JT Left 08/19/2020 distal Symes 2nd AND 3rd toe, Left CC CORONARY STENT 07/01/2020 left main, proximal to mild LAD CYSTOSCOPY 06/23/2014 LEFT HEART CATH,PERCUTANEOUS 10/07/2007 Cardiac cath, L heart LEFT HEART CATH,PERCUTANEOUS 12/29/2019 [facility] TONSILLECTOMY PRIMARY/SECONDARY Tonsillectomy TRANSCATH STENT INIT VESSEL,PERCUT 11/10/2007 Transcath stent init vessel percut, DILIA VASECTOMY UNI/BI SPX W/POSTOP SEMEN EXAMS 1978 ALLERGIES Metolazone, Altace [Ramipril], Bactrim [Sulfamethoxazole-Trimethoprim] , Diovan [Valsartan], Propofol, Ramipril, Seasonal Allergies, and [place]axfyth-Nsm-Mkg Reductase Inhibitors MEDICATIONS insulin degludec (TRESIBA FLEXTOUCH U-200) 200 unit/mL (3 mL) injectionInject 120 Units subcutaneously daily at bedtime.Disp: 20 EachRfl: 3 amLODIPine (NORVASC) 2.5 mg tabletTake 1 tablet by mouth once daily.Disp: 90 tabletRfl: 3 metoprolol tartrate, short acting, (LOPRESSOR) 50 mg tabletTake 1 tablet by mouth three times daily.Disp: Rfl: nitroglycerin sublingual (NITROQUICK) 0.4 mg SL tabletDissolve 1 tablet under the tongue every 5 minutes as needed for chest pain. IF NO PAIN RELIEF WITH 2ND DOSE, CALL 911Disp: 25 tabletRfl: 2 clopidogrel (PLAVIX) 75 mg tabletTake 1 tablet by mouth once daily.Disp: 90 tabletRfl: 3 spironolactone (ALDACTONE) 25 mg tabletTake 1 tablet by mouth once daily.Disp: 90 tabletRfl: 3 insulin aspart U-100 (NOVOLOG FLEXPEN U-100 INSULIN) 100 unit/mL (3 mL)Inject 25 units 3 times a day with meals PLUS Sliding scale as based on pre meal blood sugar as directed (~ 68 units daily)Disp: 25 EachRfl: 3 pen needle, diabetic (UNIFINE PENTIPS PLUS) 33 gauge x 5/32 ndleUse with insulin four times daily. E11.40, Z79.4Disp: 400 EachRfl: 2 bempedoic acid-ezetimibe (NEXLIZET) 180-10 mg tabletTake 1 tablet by mouth once daily.Disp: 30 tabletRfl: 5 (Patient not taking: Reported on 11/19/2022) flash glucose scanning reader (FREESTYLE MERCY 2 READER)Test blood sugar(s) 4-5 times daily Dx: Type 2 DM - Uncontrolled Insulin: YesDisp: 1 EachRfl: 5 flash glucose sensor (FREESTYLE MERCY 2 SENSOR) kitTest blood sugar(s) 4-5 times daily Dx: Type 2 DM - Uncontrolled Insulin: YesDisp: 1 EachRfl: 2 furosemide (LASIX) 80 mg tabletTake 1 tablet by mouth twice daily. Three times per day as directed PRNDisp: 225 tabletRfl: 3 blood sugar diagnostic (BLOOD GLUCOSE TEST) test stripTest blood sugar(s) 4-5 times daily Dx: Type 2 DM - Uncontrolled Insulin: YesDisp: 200 StripRfl: 3 BIOTIN ORALTake 1 tablet by mouth once daily.Disp: Rfl: Fish Oil-Ensign-3 Fatty Acids (FISH OIL OMEGA 3-6-9) 300-1,000 mg CpDRTake 3000 mg daily.Disp: Rfl: 0 Lancets (ONE TOUCH ULTRASOFT LANCETS) [facility] lancetstwice daily. Use as instructed ( may dispense Deuca brand)Disp: 100 EachRfl: 11 (more content not included)... [facility] 12-07-2022 History of Presen t illness Narrative CC: Patient presents with: F/U 6 months HPI Miguelangel Moya is a 72 year old male who presents today for above. Denies any concerns or issues today. Feeling well overall. Taking all medications as prescribed, denies side effects. BLE venous insufficiency wounds and edema managed by [facility] wound center, wounds are healed and edema controlled with compression socks. Blood sugars have been averaging around 100 and weight is decreasing, he is watching portion sizes and carb intake. REVIEW OF SYSTEMS GENERAL: Negative for malaise, significant weight loss and fever RESPIRATORY: Negative for cough, wheezing and shortness of breath CARDIOVASCULAR: Negative for chest pain, leg swelling and palpitations PAST MEDICAL HISTORY Diagnosis Date Acute kidney injury (DANIELA) with acute tubular necrosis (ATN) ([facility]) 11/06/2019 CAD (coronary artery disease) 10/07/2007 70% stenosis circumflex 2nd marginal branch. Drug eluting stent done. Diabetic ulcer of toe of left foot associated with type 2 diabetes mellitus (HCC) 06/21/2020 Esophageal reflux Generalized osteoarthrosis, unspecified site Nephrolithiasis 10/17/2016 NEUROPATHY IN DIABETES 01/30/2006 Nonspecific abnormal results of liver function study Obesity, unspecified JAMES (obstructive sleep apnea) 08/13/2013 declined tx Osteomyelitis of second toe of right foot (HCC) 09/17/2019 Osteomyelitis of third toe of right foot (HCC) 09/17/2019 Other and unspecified hyperlipidemia Paroxysmal atrial fibrillation (HCC) 10/07/2007 Personal history of contact with and (suspected) exposure to asbestos Type II or unspecified type diabetes mellitus without mention of complication, not stated as uncontrolled Unspecified essential hypertension Unspecified venous (peripheral) insufficiency PAST SURGICAL HISTORY Procedure Laterality Date ADENOIDECTOMY PRIMARY <AGE 12 1961 Adenoidectomy AMPUTATION TOE INTERPHALANGEAL JOINT Right 09/17/2019 2nd, 3rd toes, right foot AMPUTATION TOE,MT-P JT Left 08/19/2020 distal Symes 2nd & 3rd toe, Left CC CORONARY STENT 07/01/2020 left main, proximal to mild LAD CYSTOSCOPY 06/23/2014 LEFT HEART CATH,PERCUTANEOUS 10/07/2007 Cardiac cath, L heart LEFT HEART CATH,PERCUTANEOUS 12/29/2019 [facility] TONSILLECTOMY PRIMARY/SECONDARY <AGE [age] Tonsillectomy TRANSCATH STENT INIT VESSEL,PERCUT 11/10/2007 Transcath stent init vessel korin, DILIA VASECTOMY UNI/BI SPX W/POSTOP SEMEN EXAMS 1977 ALLERGIES Metolazone, Altace [Ramipril], Bactrim [Sulfamethoxazole-Trimethoprim] , Diovan [Valsartan], Propofol, Ramipril, Seasonal Allergies, and Fbveqlr-Equ-Cfo Reductase Inhibitors MEDICATIONS insulin degludec (TRESIBA FLEXTOUCH U-200) 200 unit/mL (3 mL) injection^Inject 120 Units subcutaneously daily at bedtime.^Disp: 20 Each^Rfl: 3 amLODIPine (NORVASC) 2.5 mg tablet^Take 1 tablet by mouth once daily.^Disp: 90 tablet^Rfl: 3 metoprolol tartrate, short acting, (LOPRESSOR) 50 mg tablet^Take 1 tablet by mouth three times daily.^Disp: ^Rfl: nitroglycerin sublingual (NITROQUICK) 0.4 mg SL tablet^Dissolve 1 tablet under the tongue every 5 minutes as needed for chest pain. IF NO PAIN RELIEF WITH 2ND DOSE, CALL 911^Disp: 25 tablet^Rfl: 2 clopidogrel (PLAVIX) 75 mg tablet^Take 1 tablet by mouth once daily.^Disp: 90 tablet^Rfl: 3 spironolactone (ALDACTONE) 25 mg tablet^Take 1 tablet by mouth once daily.^Disp: 90 tablet^Rfl: 3 insulin aspart U-100 (NOVOLOG FLEXPEN U-100 INSULIN) 100 unit/mL (3 mL)^Inject 25 units 3 times a day with meals PLUS Sliding scale as based on pre meal blood sugar as directed (~ 68 units daily)^Disp: 25 Each^Rfl: 3 pen needle, diabetic (UNIFINE PENTIPS PLUS) 33 gauge x 5/32 ndle^Use with insulin four times daily. E11.40, Z79.4^Disp: 400 Each^Rfl: 2 bempedoic acid-ezetimibe (NEXLIZET) 180-10 mg tablet^Take 1 tablet by mouth once daily.^Disp: 30 tablet^Rfl: 5 (Patient not taking: Reported on 11/19/2022) flash glucose scanning reader (FREESTYLE MERCY 2 READER)^Test blood sugar(s) 4-5 times daily Dx: Type 2 DM - Uncontrolled E11 Insulin: Yes^Disp: 1 Each^Rfl: 5 flash glucose sensor (FREESTYLE MERCY 2 SENSOR) kit^Test blood sugar(s) 4-5 times daily Dx: Type 2 DM - Uncontrolled E11.65 Insulin: Yes^Disp: 1 Each^Rfl: 2 furosemide (LASIX) 80 mg tablet^Take 1 tablet by mouth twice daily. Three times per day as directed PRN^Disp: 225 tablet^Rfl: 3 blood sugar diagnostic (BLOOD GLUCOSE TEST) test strip^Test blood sugar(s) 4-5 times daily Dx: Type 2 DM - Uncontrolled E11.65 Insulin: Yes^Disp: 200 Strip^Rfl: 3 BIOTIN ORAL^Take 1 tablet by mouth once daily.^Disp: ^Rfl: Fish Oil-Ensign-3 Fatty Acids (FISH OIL OMEGA 3-6-9) 300-1,000 mg CpDR^Take 3000 mg daily.^Disp: ^Rfl: 0 Lancets (ONE TOUCH ULTRASOFT LANCETS) Misc lancets^twice daily. Use as instructed ( may dispense Deuca brand)^Disp: 100 Each^Rfl: 11 aspirin, enteric coated (ASPIRIN, ENTERIC COATED) 325 mg EC tablet^Take 1 tablet by mouth once daily.^Disp: ^Rfl: 0 MULTIVITAMIN TAB^Take one(1) tablet daily.^Disp: ^Rfl: 0 VITAMIN C 1,000 MG TAB^Take one(1) tablet daily.^Disp: ^Rfl: 0 FAMILY HISTORY Problem Relation Age of Onset Heart Father Hypertension Mother Stroke Mother Lipids Mother Thyroid Sister Cancer Brother bladder and kidney Social History Tobacco Use Smoking status: Never Smokeless tobacco: Current Types: Chew Vaping Use Vaping Use: Never used Substance Use Topics Alcohol use: Yes Comment: Rare Drug use: Never PHYSICAL EXAM BP 112/68 Pulse 87 Resp 20 Wt 131.1 kg (289 lb) SpO2 97% BMI 45.60 kg/m General Appearance: well appearing, in no acute distress, alert Pysch: mood and affect broad and appropriate Health maintenance reviewed with patient: HbA1C due on 11/15/2021 Advance Directive Discussion due on 03/25/2022 Colorectal Cancer Screening due on 11/15/2022 Influenza Vaccine(1) due on 11/23/2022 Dilated Retinal Exam due on 04/23/2023 Urine Albumin:Creatinine Ratio due on 05/26/2023 LDL Cholesterol due on 05/26/2023 Diabetic Foot Exam due on 06/02/2023 Annual PCP Team Chronic Disease Visit due on 12/08/2023 BP Controlled (<130/80) due on 12/08/2023 DTaP,Tdap,Td Vaccine(2 - Td or Tdap) due on 02/16/2024 Abdominal Aortic Aneurysm Screening Completed Depression Assessment Completed Hepatitis C Screening Completed Shingrix Vaccine Completed Covid-19 Vaccine Completed Pneumococcal Vaccine: 65+ Completed DATA REVIEWED: Most recent labs done at [facility] ASSESSMENT/PLAN: 1. Type 2 diabetes mellitus with diabetic neuropathy, with long-term current use of insulin (HCC) - ICD9: 250.60, 357.2, V58.67, ICD10: E11.40, Z79.4 (primary diagnosis) - Controlled - Continue current medications 2. Essential hypertension - ICD9: 401.9, ICD10: I10 - Controlled - Continue current medications - Recommend home blood pressure monitoring, to bring results to next visit - Encouraged sodium restriction, DASH or Mediterranean diet 3. Other hyperlipidemia - ICD9: 272.4, ICD10: E78.49 Controlled 4. Venous (peripheral) insufficiency - ICD9: 459.81, ICD10: I87.2 Stable 5. Chronic diastolic congestive heart failure (HCC) - ICD9: 428.32, 428.0, ICD10: I50.32 Stable - SPIRONOLACTONE 25 MG TABLET - FUROSEMIDE 80 MG TABLET 6. Class 3 severe obesity due to excess calories with serious comorbidity and body mass index (BMI) of 45.0 to 49.9 in adult (HCC) - ICD9: 278.01, V85.42, ICD10: E66.01, Z68.42 Weight decreasing 7. Screening for colon cancer - ICD9: V76.51, ICD10: Z12.11 - COLOGUARD 8. Encounter for immunization - ICD9: V03.89, ICD10: Z23 - INFLUENZA VACCINE, PRSV FREE, AGE 65+ YR, HIGH DOSE, QUADRIVALENT (FLUZONE HIGH-DOSE) Prescription instructions reviewed with patient as applicable. Potential red flag symptoms discussed with the patient. Reviewed appropriate action plan to take if red flag symptoms occur. Patient agreeable to treatment plan. 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 No need to notify patient. Patient phones requesting refills as follows: Requested Prescriptions Pending Prescriptions Disp Refills insulin degludec (TRESIBA FLEXTOUCH U-200) 200 unit/mL (3 mL) injection 20 Each 3 Sig: Inject 120 Units subcutaneously daily at bedtime. Please review and advise. Ivy Allen documented in this encounter [facility] 11-19-2022 Note HNO ID: [id number] Author: Arabella Heredia DPM Service: ? Author Type: Physician Type: Progress Notes Filed: 11/19/2022 3:50 PM Note Text: This 71 year old male presents for painful calluses bilateral feet. SMBGs are better. no other pedal complaints PAIN EVALUATION 11/19/2022 1012 Pain Level: -- 1-10 Pain Location: -- bilateral feet Description: Sharp Duration Units: Years Frequency: Intermittent PAST MEDICAL HISTORY Diagnosis Date Acute kidney injury (DANIELA) with acute tubular necrosis (ATN) (HCC) 11/06/2019 CAD (coronary artery disease) 10/07/2007 70% stenosis circumflex 2nd marginal branch. Drug eluting stent done. Diabetic ulcer of toe of left foot associated with type 2 diabetes mellitus (HCC) 06/21/2020 Esophageal reflux Generalized osteoarthrosis, unspecified site Nephrolithiasis 10/17/2016 NEUROPATHY IN DIABETES 01/30/2006 Nonspecific abnormal results of liver function study Obesity, unspecified JAMES (obstructive sleep apnea) 08/13/2013 declined tx Osteomyelitis of second toe of right foot (HCC) 09/17/2019 Osteomyelitis of third toe of right foot (HCC) 09/17/2019 Other and unspecified hyperlipidemia Paroxysmal atrial fibrillation (HCC) 10/07/2007 Personal history of contact with and (suspected) exposure to asbestos Type II or unspecified type diabetes mellitus without mention of complication, not stated as uncontrolled Unspecified essential hypertension Unspecified venous (peripheral) insufficiency Current Outpatient Medications Medication Sig amLODIPine (NORVASC) 2.5 mg tablet Take 1 tablet by mouth once daily. metoprolol tartrate, short acting, (LOPRESSOR) 50 mg tablet Take 1 tablet by mouth three times daily. nitroglycerin sublingual (NITROQUICK) 0.4 mg SL tablet Dissolve 1 tablet under the tongue every 5 minutes as needed for chest pain. IF NO PAIN RELIEF WITH 2ND DOSE, CALL 911 clopidogrel (PLAVIX) 75 mg tablet Take 1 tablet by mouth once daily. spironolactone (ALDACTONE) 25 mg tablet Take 1 tablet by mouth once daily. insulin aspart U-100 (NOVOLOG FLEXPEN U-100 INSULIN) 100 unit/mL (3 mL) Inject 25 units 3 times a day with meals PLUS Sliding scale as based on pre meal blood sugar as directed (~ 68 units daily) insulin degludec (TRESIBA FLEXTOUCH U-200) 200 unit/mL (3 mL) injection Inject 120 Units subcutaneously daily at bedtime. pen needle, diabetic (UNIFINE PENTIPS PLUS) 33 gauge x ndle Use with insulin four times daily. E11.40, Z79.4 furosemide (LASIX) 80 mg tablet Take 1 tablet by mouth twice daily. Three times per day as directed PRN blood sugar diagnostic (BLOOD GLUCOSE TEST) test strip Test blood sugar(s) 4-5 times daily Dx: Type 2 DM - Uncontrolled E11.65 Insulin: Yes BIOTIN ORAL Take 1 tablet by mouth once daily. Fish Oil-Ensign-3 Fatty Acids (FISH OIL OMEGA 3-6-9) 300-1,000 mg CpDR Take 3000 mg daily. Lancets (ONE TOUCH ULTRASOFT LANCETS) Misc lancets twice daily. Use as instructed ( may dispense Deuca brand) aspirin, enteric coated (ASPIRIN, ENTERIC COATED) 325 mg EC tablet Take 1 tablet by mouth once daily. MULTIVITAMIN TAB Take one(1) tablet daily. VITAMIN C 1,000 MG TAB Take one(1) tablet daily. bempedoic acid-ezetimibe (NEXLIZET) 180-10 mg tablet Take 1 tablet by mouth once daily. (Patient not taking: Reported on 11/19/2022) flash glucose scanning reader (FREESTYLE MERCY 2 READER) Test blood sugar(s) 4-5 times daily Dx: Type 2 DM - Uncontrolled E11.65 Insulin: Yes flash glucose sensor (FREESTYLE MERCY 2 SENSOR) kit Test blood sugar(s) 4-5 times daily Dx: Type 2 DM - Uncontrolled E11.65 Insulin: Yes Current Facility-Administered Medications Medication Dose Route Frequency perflutren lipid microspheres 1.3 mL in NaCl (PF) 0.9% 10 mL injection (DEFINITY) INTRAVENOUS DIRECTED PRN sodium chloride 0.9 % (flush) 10 mL (BD POSIFLUSH) 10 mL INTRAVENOUS DIRECTED PRN ALLERGIES Allergen Reactions Metolazone Rash Altace [Ramipril] Intolerance Bactrim [Sulfametho* Hives Diovan [Valsartan] Propofol Other: See Comments agitation Ramipril Seasonal Allergies Other: See Comments Cxodmzm-Zcy-Yfo Red* Other: See Comments Muscle aches OBJECTIVE: Patient presents WB with regular shoe gear Neurovascular status is grossly unchanged. Absent vibratory sensation at the hallux IPJ. Intact protective sensation hyperkeratotic tissue noted subfifth MTP joint left. Hyperkeratotic tissue also noted to the medial aspect of the left distal 3rd toe Hemoglobin A1C (%) Date Value 11/26/2020 9.1 08/15/2020 8.6 02/13/2020 7.6 10/01/2019 6.1 04/08/2019 6.0 HGBA1C (%) Date Value 01/12/2022 6.3 Assessment: B/L callosities (3 total) Better controlled type 2 diabetes with multiple tylomas PLAN: Treatment today consisted of -Exam -Debrided calluses x 3 Continue follow up with endo Continue with diabetic shoes Follow-up in 3 months or sooner prcharbel Heredia DPM [facility] 11-19-2022 History of Presen t illness Narrative Images from the original note were not included. This 71 year old male presents for painful calluses bilateral feet. SMBGs are better. no other pedal complaints PAIN EVALUATION 11/19/2022 1012 Pain Level: -- 1-10 Pain Location: -- bilateral feet Description: Sharp Duration Units: Years Frequency: Intermittent PAST MEDICAL HISTORY Diagnosis Date Acute kidney injury (DANIELA) with acute tubular necrosis (ATN) (HCC) 11/06/2019 CAD (coronary artery disease) 10/07/2007 70% stenosis circumflex 2nd marginal branch. Drug eluting stent done. Diabetic ulcer of toe of left foot associated with type 2 diabetes mellitus (HCC) 06/21/2020 Esophageal reflux Generalized osteoarthrosis, unspecified site Nephrolithiasis 10/17/2016 NEUROPATHY IN DIABETES 01/30/2006 Nonspecific abnormal results of liver function study Obesity, unspecified JAMES (obstructive sleep apnea) 08/13/2013 declined tx Osteomyelitis of second toe of right foot (HCC) 09/17/2019 Osteomyelitis of third toe of right foot (HCC) 09/17/2019 Other and unspecified hyperlipidemia Paroxysmal atrial fibrillation (HCC) 10/07/2007 Personal history of contact with and (suspected) exposure to asbestos Type II or unspecified type diabetes mellitus without mention of complication, not stated as uncontrolled Unspecified essential hypertension Unspecified venous (peripheral) insufficiency Current Outpatient Medications Medication Sig amLODIPine (NORVASC) 2.5 mg tablet Take 1 tablet by mouth once daily. metoprolol tartrate, short acting, (LOPRESSOR) 50 mg tablet Take 1 tablet by mouth three times daily. nitroglycerin sublingual (NITROQUICK) 0.4 mg SL tablet Dissolve 1 tablet under the tongue every 5 minutes as needed for chest pain. IF NO PAIN RELIEF WITH 2ND DOSE, CALL 911 clopidogrel (PLAVIX) 75 mg tablet Take 1 tablet by mouth once daily. spironolactone (ALDACTONE) 25 mg tablet Take 1 tablet by mouth once daily. insulin aspart U-100 (NOVOLOG FLEXPEN U-100 INSULIN) 100 unit/mL (3 mL) Inject 25 units 3 times a day with meals PLUS Sliding scale as based on pre meal blood sugar as directed (~ 68 units daily) insulin degludec (TRESIBA FLEXTOUCH U-200) 200 unit/mL (3 mL) injection Inject 120 Units subcutaneously daily at bedtime. pen needle, diabetic (UNIFINE PENTIPS PLUS) 33 gauge x 5/32 ndle Use with insulin four times daily. E11.40, Z79.4 furosemide (LASIX) 80 mg tablet Take 1 tablet by mouth twice daily. Three times per day as directed PRN blood sugar diagnostic (BLOOD GLUCOSE TEST) test strip Test blood sugar(s) 4-5 times daily Dx: Type 2 DM - Uncontrolled E11.65 Insulin: Yes BIOTIN ORAL Take 1 tablet by mouth once daily. Fish Oil-Ensign-3 Fatty Acids (FISH OIL OMEGA 3-6-9) 300-1,000 mg CpDR Take 3000 mg daily. Lancets (ONE TOUCH ULTRASOFT LANCETS) Misc lancets twice daily. Use as instructed ( may dispense Deuca brand) aspirin, enteric coated (ASPIRIN, ENTERIC COATED) 325 mg EC tablet Take 1 tablet by mouth once daily. MULTIVITAMIN TAB Take one(1) tablet daily. VITAMIN C 1,000 MG TAB Take one(1) tablet daily. bempedoic acid-ezetimibe (NEXLIZET) 180-10 mg tablet Take 1 tablet by mouth once daily. (Patient not taking: Reported on 11/19/2022) flash glucose scanning reader (FREESTYLE MERCY 2 READER) Test blood sugar(s) 4-5 times daily Dx: Type 2 DM - Uncontrolled E11.65 Insulin: Yes flash glucose sensor (FREESTYLE MERCY 2 SENSOR) kit Test blood sugar(s) 4-5 times daily Dx: Type 2 DM - Uncontrolled E11.65 Insulin: Yes Current Facility-Administered Medications Medication Dose Route Frequency perflutren lipid microspheres 1.3 mL in NaCl (PF) 0.9% 10 mL injection (DEFINITY) INTRAVENOUS DIRECTED PRN sodium chloride 0.9 % (flush) 10 mL (BD POSIFLUSH) 10 mL INTRAVENOUS DIRECTED PRN ALLERGIES Allergen Reactions Metolazone Rash Altace [Ramipril] Intolerance Bactrim [Sulfametho* Hives Diovan [Valsartan] Propofol Other: See Comments agitation Ramipril Seasonal Allergies Other: See Comments Ayxjuwp-Ihd-Cle Red* Other: See Comments Muscle aches OBJECTIVE: Patient presents WB with regular shoe gear Neurovascular status is grossly unchanged. Absent vibratory sensation at the hallux IPJ. Intact protective sensation hyperkeratotic tissue noted subfifth MTP joint left. Hyperkeratotic tissue also noted to the medial aspect of the left distal 3rd toe Hemoglobin A1C (%) Date Value 11/26/2020 9.1 08/15/2020 8.6 02/13/2020 7.6 10/01/2019 6.1 04/08/2019 6.0 HGBA1C (%) Date Value 01/12/2022 6.3 Assessment: B/L callosities (3 total) Better controlled type 2 diabetes with multiple tylomas PLAN: Treatment today consisted of -Exam -Debrided calluses x 3 Continue follow up with endo Continue with diabetic shoes Follow-up in 3 months or sooner prn Arabella Heredia DPM documented in this encounter [facility] 10-25-2022 Miscellaneous Notes No signuture needed. This info was faxed to number given and form(wound form completed) Natalie from Wound center calls and states that they received call from patient about wound care without a referral or office note. Natalie asking for referral, office note, and demographics to be sent to [phone]. Faxed office notes and demographics as requested. Please place referral and fax referral. Erika Garcia RN documented in this encounter [facility] 10-25-2022 Miscellaneous Notes Spouse (Jessica) calls and provider recommendation reviewed. Jessica verbalizes understanding. Asked if needed a referral and Jessica reports no. Carlene Goldberg RN I recommend [facility]. reports patient completed 2 AB's: doxycycline first, then keflex was complete on 10-18, for leg wound. Reports wound is looking good, but on Saturday she noted purulent drainage from the wound, and again today. Reports today wound has a scab and is tender to touch. No reddness, no fever, no swelling aside from his usual swelling, pt wears compression socks. states she cleans the wound daily. Asking if pcp thinks patient should take another round of AB's? Please advise . documented in this encounter [facility] 10-19-2022 Miscellaneous Notes Completed and faxed to number on the form. Pt's spouse brought in FMLA for their son to be off work for appt with pt to drive pt to his appts. This was completed last year. To pcp to review. Fax to number on [employer] business card which is [phone] attn Otilia Odonnell. documented in this encounter [facility] 10-11-2022 Miscellaneous Notes Left message on . Roxanna Dennis LPN Patient's request for medication is as follows Requested Prescriptions Signed Prescriptions Disp Refills cephALEXin (KEFLEX) 500 mg capsule 21 capsule 0 Sig: Take 1 capsule by mouth three times daily for 7 days. Authorizing Provider: KRISHNA REYNOLDS Order entered - please phone pharmacy and notify patient. Krishna Reynolds MD reports patient will finish doxycycline bid tomorrow for wound on right leg. Reports leg has improved, but still has some reddness around the wound b/c he has diabetes. No warmth. No fever. Reports she noted some purulent drainage today when pushing around the wound. Reports she is cleaning it daily. thinks patient would benefit from another round of AB or a different AB. Asking pcp to please advise . Leo Sherwood. documented in this encounter [facility] 10-01-2022 Note HNO ID: [id number] Author: Krishna Reynolds MD Service: ? Author Type: Physician Type: Progress Notes Filed: 10/01/2022 3:47 PM Note Text: This note was created using [employer]riter. Subjective Miguelangel Moya is a 72 year old male. Jessica had been doing wound care to a blister of the right calf that stared 3 weeks ago, and she drained this 2 weeks ago. This had delayed healing and was finally forming a scab. They were concerned as this is the 2nd consecutive ulcer, the previous one that was healed with self management was on the left leg. Edema was a factor, despite extra doses of furosemide. Question was does he need Wound Center care. DM was controlled. Review of Systems Constitutional: Negative for chills and fever. Respiratory: Negative for shortness of breath. Cardiovascular: Positive for leg swelling. Negative for chest pain. Gastrointestinal: Negative. ACTIVE PROBLEM LIST Generalized Osteoarthrosis, Unspecified Site Esophageal Reflux Venous (Peripheral) Insufficiency Type 2 Diabetes Mellitus With Diabetic Neuropathy, With Long-Term Current Use of Insulin ([facility]) Class 3 Severe Obesity With Body Mass Index (Bmi) of 45.0 to 49.9 in Adult ([facility]) Other Hyperlipidemia Essential Hypertension Coronary Artery Disease of [place] Artery of [place] Heart With Stable Angina Pectoris ([facility]) Persistent Atrial Fibrillation ([facility]) Memory Disturbance Bph (Benign Prostatic Hyperplasia) History of Partial Amputation of Toe ([facility]) Robin (Dyspnea On Exertion) Statin Intolerance Chronic Diastolic Congestive Heart Failure ([facility]) Valvular Heart Disease Non-Seasonal Allergic Rhinitis Uncontrolled Diabetes Mellitus Hypertensive Heart Disease With Chronic Diastolic Congestive Heart Failure ([facility]) Current Outpatient Medications Medication Sig nitroglycerin sublingual (NITROQUICK) 0.4 mg SL tablet Dissolve 1 tablet under the tongue every 5 minutes as needed for chest pain. IF NO PAIN RELIEF WITH 2ND DOSE, CALL 911 clopidogrel (PLAVIX) 75 mg tablet Take 1 tablet by mouth once daily. spironolactone (ALDACTONE) 25 mg tablet Take 1 tablet by mouth once daily. insulin aspart U-100 (NOVOLOG FLEXPEN U-100 INSULIN) 100 unit/mL (3 mL) Inject 25 units 3 times a day with meals PLUS Sliding scale as based on pre meal blood sugar as directed (~ 68 units daily) insulin degludec (TRESIBA FLEXTOUCH U-200) 200 unit/mL (3 mL) injection Inject 120 Units subcutaneously daily at bedtime. pen needle, diabetic (UNIFINE PENTIPS PLUS) 33 gauge x 5/32 ndle Use with insulin four times daily. E11.40, Z79.4 bempedoic acid-ezetimibe (NEXLIZET) 180-10 mg tablet Take 1 tablet by mouth once daily. flash glucose scanning reader (FREESTYLE MERCY 2 READER) Test blood sugar(s) 4-5 times daily Dx: Type 2 DM - Uncontrolled E11.65 Insulin: Yes flash glucose sensor (FREESTYLE MERCY 2 SENSOR) kit Test blood sugar(s) 4-5 times daily Dx: Type 2 DM - Uncontrolled E11.65 Insulin: Yes furosemide (LASIX) 80 mg tablet Take 1 tablet by mouth twice daily. Three times per day as directed PRN blood sugar diagnostic (BLOOD GLUCOSE TEST) test strip Test blood sugar(s) 4-5 times daily Dx: Type 2 DM - Uncontrolled E11.65 Insulin: Yes BIOTIN ORAL Take 1 tablet by mouth once daily. Fish Oil-Ensign-3 Fatty Acids (FISH OIL OMEGA 3-6-9) 300-1,000 mg CpDR Take 3000 mg daily. Lancets (ONE TOUCH ULTRASOFT LANCETS) Misc lancets twice daily. Use as instructed ( may dispense Deuca brand) aspirin, enteric coated (ASPIRIN, ENTERIC COATED) 325 mg EC tablet Take 1 tablet by mouth once daily. MULTIVITAMIN TAB Take one(1) tablet daily. VITAMIN C 1,000 MG TAB Take one(1) tablet daily. metoprolol tartrate, short acting, (LOPRESSOR) 50 mg tablet Take 1 tablet by mouth three times daily. amLODIPine (NORVASC) 5 mg tablet Take 0.5 tablets by mouth once daily. doxycycline (VIBRA-TABS) 100 mg tablet Take 1 tablet by mouth twice daily for 10 days. Current Facility-Administered Medications Medication Dose Route Frequency perflutren lipid microspheres 1.3 mL in NaCl (PF) 0.9% 10 mL injection (DEFINITY) INTRAVENOUS DIRECTED PRN sodium chloride 0.9 % (flush) 10 mL (BD POSIFLUSH) 10 mL INTRAVENOUS DIRECTED PRN Objective BP 130/68 (BP Site: Left Arm, BP Position: Sitting, BP Cuff Size: Large Adult) Pulse 72 Resp 18 Wt 133.4 kg (294 lb) BMI 46.39 kg/m? Physical Exam Constitutional: General: He is not in acute distress. Cardiovascular: Rate and Rhythm: Normal rate and regular rhythm. Heart sounds: No murmur heard. No gallop. Pulmonary: Breath sounds: Normal breath sounds. Musculoskeletal: Right lower le+ Pitting Edema present. Left lower le+ Pitting Edema present. Skin: Comments: Stasis changes, small blisters in both distal legs. Right calf with 2 cm x 1.5 cm dried stage 2 ulcer with surrounding erythema, scan purulent drainage. No tenderness. Neurological: Mental Status: He is alert. Asses (more content not included)... [facility] 10-01-2022 Miscellaneous Notes called and she tried to cut in half pt's Amlodipine and is not able to. asking for a new rx to be sent to the pharmacy for 2.5 mg. Josefina AUSTIN Patient has been identified by name and date of : Yes, Provider Dr. Reynolds Date 10/01/22 Time 4:32 pm Spouse phones for refill(s): Requested Prescriptions Pending Prescriptions Disp Refills amLODIPine (NORVASC) 2.5 mg tablet 90 tablet 3 Sig: Take 1 tablet by mouth once daily. Date of last office visit in primary care: 10/01/22 next 12/07 Last 2 Encounter Wt Readings: Date: Wt: 10/01/2022 133.4 kg (294 lb) 08/13/2022 133.7 kg (294 lb 12.8 oz) Previous labs/tests for medication: Blood Pressure: BUN (mg/dL) Date Value 11/26/2020 19 Sodium (mmol/L) Date Value 11/26/2020 138 Last 1 Encounter BP Readings: Date: BP: 10/01/2022 130/68 Thank you. Josefina AUSTIN documented in this encounter [facility] 10-01-2022 History of Presen t illness Narrative This note was created using [employer]. Subjective Miguelangel Moya is a 72 year old male. Jessica had been doing wound care to a blister of the right calf that stared 3 weeks ago, and she drained this 2 weeks ago. This had delayed healing and was finally forming a scab. They were concerned as this is the 2nd consecutive ulcer, the previous one that was healed with self management was on the left leg. Edema was a factor, despite extra doses of furosemide. Question was does he need Wound Center care. DM was controlled. Review of Systems Constitutional: Negative for chills and fever. Respiratory: Negative for shortness of breath. Cardiovascular: Positive for leg swelling. Negative for chest pain. Gastrointestinal: Negative. ACTIVE PROBLEM LIST Generalized Osteoarthrosis, Unspecified Site Esophageal Reflux Venous (Peripheral) Insufficiency Type 2 Diabetes Mellitus With Diabetic Neuropathy, With Long-Term Current Use of Insulin ([facility]) Class 3 Severe Obesity With Body Mass Index (Bmi) of 45.0 to 49.9 in Adult ([facility]) Other Hyperlipidemia Essential Hypertension Coronary Artery Disease of [place] Artery of [place] Heart With Stable Angina Pectoris ([facility]) Persistent Atrial Fibrillation ([facility]) Memory Disturbance Bph (Benign Prostatic Hyperplasia) History of Partial Amputation of Toe ([facility]) Robin (Dyspnea On Exertion) Statin Intolerance Chronic Diastolic Congestive Heart Failure ([facility]) Valvular Heart Disease Non-Seasonal Allergic Rhinitis Uncontrolled Diabetes Mellitus Hypertensive Heart Disease With Chronic Diastolic Congestive Heart Failure ([facility]) Current Outpatient Medications Medication Sig nitroglycerin sublingual (NITROQUICK) 0.4 mg SL tablet Dissolve 1 tablet under the tongue every 5 minutes as needed for chest pain. IF NO PAIN RELIEF WITH 2ND DOSE, CALL 911 clopidogrel (PLAVIX) 75 mg tablet Take 1 tablet by mouth once daily. spironolactone (ALDACTONE) 25 mg tablet Take 1 tablet by mouth once daily. insulin aspart U-100 (NOVOLOG FLEXPEN U-100 INSULIN) 100 unit/mL (3 mL) Inject 25 units 3 times a day with meals PLUS Sliding scale as based on pre meal blood sugar as directed (~ 68 units daily) insulin degludec (TRESIBA FLEXTOUCH U-200) 200 unit/mL (3 mL) injection Inject 120 Units subcutaneously daily at bedtime. pen needle, diabetic (UNIFINE PENTIPS PLUS) 33 gauge x 5/32 ndle Use with insulin four times daily. E11.40, Z79.4 bempedoic acid-ezetimibe (NEXLIZET) 180-10 mg tablet Take 1 tablet by mouth once daily. flash glucose scanning reader (i.TVSTYLE MERCY 2 READER) Test blood sugar(s) 4-5 times daily Dx: Type 2 DM - Uncontrolled E11.65 Insulin: Yes flash glucose sensor (FREESTYLE MERCY 2 SENSOR) kit Test blood sugar(s) 4-5 times daily Dx: Type 2 DM - Uncontrolled E11.65 Insulin: Yes furosemide (LASIX) 80 mg tablet Take 1 tablet by mouth twice daily. Three times per day as directed PRN blood sugar diagnostic (BLOOD GLUCOSE TEST) test strip Test blood sugar(s) 4-5 times daily Dx: Type 2 DM - Uncontrolled E11.65 Insulin: Yes BIOTIN ORAL Take 1 tablet by mouth once daily. Fish Oil-Ensign-3 Fatty Acids (FISH OIL OMEGA 3-6-9) 300-1,000 mg CpDR Take 3000 mg daily. Lancets (ONE TOUCH ULTRASOFT LANCETS) Misc lancets twice daily. Use as instructed ( may dispense Deuca brand) aspirin, enteric coated (ASPIRIN, ENTERIC COATED) 325 mg EC tablet Take 1 tablet by mouth once daily. MULTIVITAMIN TAB Take one(1) tablet daily. VITAMIN C 1,000 MG TAB Take one(1) tablet daily. metoprolol tartrate, short acting, (LOPRESSOR) 50 mg tablet Take 1 tablet by mouth three times daily. amLODIPine (NORVASC) 5 mg tablet Take 0.5 tablets by mouth once daily. doxycycline (VIBRA-TABS) 100 mg tablet Take 1 tablet by mouth twice daily for 10 days. Current Facility-Administered Medications Medication Dose Route Frequency perflutren lipid microspheres 1.3 mL in NaCl (PF) 0.9% 10 mL injection (DEFINITY) INTRAVENOUS DIRECTED PRN sodium chloride 0.9 % (flush) 10 mL (BD POSIFLUSH) 10 mL INTRAVENOUS DIRECTED PRN Objective BP 130/68 (BP Site: Left Arm, BP Position: Sitting, BP Cuff Size: Large Adult) Pulse 72 Resp 18 Wt 133.4 kg (294 lb) BMI 46.39 kg/m Physical Exam Constitutional: General: He is not in acute distress. Cardiovascular: Rate and Rhythm: Normal rate and regular rhythm. Heart sounds: No murmur heard. No gallop. Pulmonary: Breath sounds: Normal breath sounds. Musculoskeletal: Right lower le+ Pitting Edema present. Left lower le+ Pitting Edema present. Skin: Comments: Stasis changes, small blisters in both distal legs. Right calf with 2 cm x 1.5 cm dried stage 2 ulcer with surrounding erythema, scan purulent drainage. No tenderness. Neurological: Mental Status: He is alert. Assessment and Plan 1. Ulcer of right leg, limited to breakdown of skin (HCC) - ICD9: 707.10, ICD10: L97.911 (primary diagnosis) - Use compression wrapping. If ulcer does not heal or recurs, call for Wound Center referral. - DOXYCYCLINE HYCLATE 100 MG TABLET 2. Venous (peripheral) insufficiency - ICD9: 459.81, ICD10: I87.2 See below. 3. Chronic diastolic congestive heart failure (HCC) - ICD9: 428.32, 428.0, ICD10: I50.32 Increase dose to 50 mg TID. - METOPROLOL TARTRATE 50 MG TABLET 4. Type 2 diabetes mellitus with diabetic neuropathy, with long-term current use of insulin (HCC) - ICD9: 250.60, 357.2, V58.67, ICD10: E11.40, Z79.4 - Controlled 5. Need for COVID-19 vaccine - ICD9: V04.89, ICD10: Z23 - PFIZER-BIONTMister Spex COVID-19 BIVALENT VACCINE, AGE 12+ YR 6. Essential hypertension - ICD9: 401.9, ICD10: I10 - Controlled - Decrease amlodipine to 1/2 tablet daily due to edema. - METOPROLOL TARTRATE 50 MG TABLET - AMLODIPINE 5 MG TABLET Krishna Reynolds MD documented in this encounter [facility] 10-01-2022 Instructions Krishna Reynolds MD - 10/01/2022 3:09 PM EDT SEE MEDICATION LIST FOR CHANGES. CALL FOR REFILLS WHEN NEEDED. documented in this encounter [facility] 09-12-2022 Miscellaneous Notes [facility], Patient has active RX for Plavix with refills remaining. Pharmacy will get ready for Patient to pickup. Roxanna Dennis LPN Patient has been identified by name and date of : Yes Requested Prescriptions Pending Prescriptions Disp Refills clopidogrel (PLAVIX) 75 mg tablet 90 tablet 3 Sig: Take 1 tablet by mouth once daily. RX INSTRUCTIONS: Patient aware RX will be sent to pharmacy. No need to notify patient. [facility] 08-27-2022 Note HNO ID: [id number] Author: Flavia Tadeo RN Service: ? Author Type: Registered Nurse Type: Progress Notes Filed: 08/27/2022 10:48 AM Note Text: 22 ga angio started to right a/c. Good blood return. Flushed easily with NSS. Dressing applied. Definity (Lot # [id number] exp 07/24/23 ) mixed per protocol. 2 cc administered throughout procedure. 8cc discarded. Pt tolerated procedure well. No C/o's, Hep lock D/c'd and dressing applied. Patient discharged ambulatory with Tie Bucker. Flavia Tadeo RN [facility] 08-27-2022 History of Presen t illness Narrative 22 ga angio started to right a/c. Good blood return. Flushed easily with NSS. Dressing applied. Definity (Lot # [id number] exp 07/24/23 ) mixed per protocol. 2 cc administered throughout procedure. 8cc discarded. Pt tolerated procedure well. No C/o's, Hep lock D/c'd and dressing applied. Patient discharged ambulatory with Tie Bucker. Flavia Tadeo RN documented in this encounter [facility] 08-13-2022 Note HNO ID: [id number] Author: Regulo Stover MD Service: ? Author Type: Physician Type: Progress Notes Filed: 08/13/2022 4:53 PM Note Text: [facility] Cardiology ([address]) [address] [facility] [id number] OUTPATIENT VISIT DATE 08/13/2022 PRIMARY CARE PHYSICIAN: Krishna Reynolds [address] [place] [address] HISTORY OF PRESENT ILLNESS: Mr. Moya is a 72 year old morbidly obese gentleman with a history of coronary artery disease and prior high risk coronary intervention, diabetes (insulin requiring), chronic diastolic congestive heart failure, hypertension, obstructive sleep apnea (noncompliant with CPAP) and dyslipidemia who presents for routine follow-up. Patient reporting worsening shortness of breath on exertion. He is compliant with low-sodium diet and denies symptoms concerning for PND orthopnea. He is also not had any significant lower extremity edema. He has not had palpitations, heart racing, lightheadedness, dizziness, or syncope. PAST MEDICAL HISTORY Diagnosis Date Acute kidney injury (DANIELA) with acute tubular necrosis (ATN) ([facility] 11/06/2019 CAD (coronary artery disease) 10/07/2007 70% stenosis circumflex 2nd marginal branch. Drug eluting stent done. Diabetic ulcer of toe of left foot associated with type 2 diabetes mellitus (HCC) 06/21/2020 Esophageal reflux Generalized osteoarthrosis, unspecified site Nephrolithiasis 10/17/2016 NEUROPATHY IN DIABETES 01/30/2006 Nonspecific abnormal results of liver function study Obesity, unspecified JAMES (obstructive sleep apnea) 08/13/2013 declined tx Osteomyelitis of second toe of right foot (HCC) 09/17/2019 Osteomyelitis of third toe of right foot (HCC) 09/17/2019 Other and unspecified hyperlipidemia Paroxysmal atrial fibrillation (HCC) 10/07/2007 Personal history of contact with and (suspected) exposure to asbestos Type II or unspecified type diabetes mellitus without mention of complication, not stated as uncontrolled Unspecified essential hypertension Unspecified venous (peripheral) insufficiency PAST SURGICAL HISTORY Procedure Laterality Date ADENOIDECTOMY PRIMARY Adenoidectomy AMPUTATION TOE INTERPHALANGEAL JOINT Right 09/17/2019 2nd, 3rd toes, right foot AMPUTATION TOE,MT-P JT Left 08/19/2020 distal Symes 2nd AND 3rd toe, Left CC CORONARY STENT 07/01/2020 left main, proximal to mild LAD CYSTOSCOPY 06/23/2014 LEFT HEART CATH,PERCUTANEOUS 10/07/2007 Cardiac cath, L heart LEFT HEART CATH,PERCUTANEOUS 12/29/2019 [facility] TONSILLECTOMY PRIMARY/SECONDARY Tonsillectomy TRANSCATH STENT INIT VESSEL,PERCUT 11/10/2007 Transcath stent init vessel percut, DILIA VASECTOMY UNI/BI SPX W/POSTOP SEMEN EXAMS 1977 SOCIAL HISTORY Social History Tobacco Use Smoking status: Never Smokeless tobacco: Current Types: Chew Vaping Use Vaping Use: Never used Substance Use Topics Alcohol use: Yes Comment: Rare Drug use: Never FAMILY HISTORY Problem Relation Age of Onset Heart Father Hypertension Mother Stroke Mother Lipids Mother Thyroid Sister Cancer Brother bladder and kidney ALLERGIES: ALLERGIES Allergen Reactions Metolazone Rash Altace [Ramipril] Intolerance Bactrim [Sulfametho* Hives Diovan [Valsartan] Propofol Other: See Comments agitation Ramipril Seasonal Allergies Other: See Comments Asehwwt-Odu-Ijp Red* Other: See Comments Muscle aches MEDICATIONS: nitroglycerin sublingual (NITROQUICK) 0.4 mg SL tablet Dissolve 1 tablet under the tongue every 5 minutes as needed for chest pain. IF NO PAIN RELIEF WITH 2ND DOSE, CALL 911 clopidogrel (PLAVIX) 75 mg tablet Take 1 tablet by mouth once daily. metoprolol tartrate, short acting, (LOPRESSOR) 50 mg tablet Take 1 tablet by mouth twice daily. amLODIPine (NORVASC) 5 mg tablet Take 1 tablet by mouth once daily. spironolactone (ALDACTONE) 25 mg tablet Take 1 tablet by mouth once daily. insulin aspart U-100 (NOVOLOG FLEXPEN U-100 INSULIN) 100 unit/mL (3 mL) Inject 25 units 3 times a day with meals PLUS Sliding scale as based on pre meal blood sugar as directed (~ 68 units daily) insulin degludec (TRESIBA FLEXTOUCH U-200) 200 unit/mL (3 mL) injection Inject 120 Units subcutaneously daily at bedtime. pen needle, diabetic (UNIFINE PENTIPS PLUS) 33 gauge x 5/32 ndle Use with insulin four times daily. E11.40, Z79.4 bempedoic acid-ezetimibe (NEXLIZET) 180-10 mg tablet Take 1 tablet by mouth once daily. flash glucose scanning reader (FREESTYLE MERCY 2 READER) Test blood sugar(s) 4-5 times daily Dx: Type 2 DM - Uncontrolled Insulin: Yes flash glucose sensor (FREESTYLE MERCY 2 SENSOR) kit Test blood sugar(s) 4-5 times daily Dx: Type 2 DM - Uncontrolled Insulin: Yes furosemide (LASIX) 80 mg tablet Take 1 tablet by mouth twice daily. Three times per (more content not included)... [facility] 08-06-2022 Miscellaneous Notes YAMILETH: 06/01/2022 Last refill: 01/12/2021 QTY: 25 Refills: 2 Patient has been identified by name and date of : Yes Last office visit in this department: Visit date not found RX INSTRUCTIONS: Patient aware RX will be sent to pharmacy. No need to notify patient. Patient phones requesting refills as follows: Requested Prescriptions No prescriptions requested or ordered in this encounter Please review and advise. Jess Xavier documented in this encounter [facility] 07-24-2022 Miscellaneous Notes Faxed as requested - detailed messaged left advising patient. Pt called in to get an excuse from Jury duty. Pt reports he has a long list of problems. Pt reports he is DM with neuropathy, not able to sit long periods of time and has to stand up every 20 minutes, has to urinate frequently due to water pills, heart issues and there are more listed on his problem list. Please fax note to: FAX: [phone] Att[address] Kate. Please advise pt when this has been done. Pt asking to have a message left on his phone. Josefina Qureshi LPN documented in this encounter [facility] 06-01-2022 Note HNO ID: [id number] Author: Krishna Reynolds MD Service: ? Author Type: Physician Type: Progress Notes Filed: 06/01/2022 10:01 AM Note Text: This note was created using [employer]. Subjective Miguelangel Moya is a 71 year old male. He was doing well. Doxazosin was held at times due to low blood pressure. Zaroxyln was stopped due to rash. Diabetes was controlled. He was interested in a new medication for statin intolerant patients. Review of Systems Constitutional: Negative. Respiratory: Negative. Cardiovascular: Negative. Gastrointestinal: Negative. Skin: Negative for wound. Neurological: Positive for numbness. Psychiatric/Behavioral: Negative. ACTIVE PROBLEM LIST Generalized Osteoarthrosis, Unspecified Site Esophageal Reflux Venous (Peripheral) Insufficiency Type 2 Diabetes Mellitus With Diabetic Neuropathy, With Long-Term Current Use of Insulin ([facility]) Class 3 Severe Obesity With Body Mass Index (Bmi) of 45.0 to 49.9 in Adult ([facility]) Other Hyperlipidemia Essential Hypertension Coronary Artery Disease of [place] Artery of [place] Heart With Stable Angina Pectoris ([facility]) Persistent Atrial Fibrillation ([facility]) Memory Disturbance Bph (Benign Prostatic Hyperplasia) History of Partial Amputation of Toe ([facility]) Dyspnea On Exertion Statin Intolerance Chronic Diastolic Congestive Heart Failure ([facility]) Valvular Heart Disease Non-Seasonal Allergic Rhinitis Uncontrolled Diabetes Mellitus Hypertensive Heart Disease With Chronic Diastolic Congestive Heart Failure ([facility]) Social History Tobacco Use Smoking status: Never Smokeless tobacco: Current Types: Chew Vaping Use Vaping Use: Never used Substance Use Topics Alcohol use: Yes Comment: Rare Drug use: Never Current Outpatient Medications Medication Sig flash glucose scanning reader (FREESTYLE MERCY 2 READER) Test blood sugar(s) 4-5 times daily Dx: Type 2 DM - Uncontrolled E11. Insulin: Yes flash glucose sensor (FREESTYLE MERCY 2 SENSOR) kit Test blood sugar(s) 4-5 times daily Dx: Type 2 DM - Uncontrolled E11. Insulin: Yes spironolactone (ALDACTONE) 25 mg tablet Take 1 tablet by mouth once daily. furosemide (LASIX) 80 mg tablet Take 1 tablet by mouth twice daily. Three times per day as directed PRN doxazosin (CARDURA) 1 mg tablet TAKE ONE TABLET BY MOUTH EVERY DAY AT BEDTIME metOLazone (ZAROXOLYN) 2.5 mg tablet Take 1 tablet by mouth once daily. insulin degludec (TRESIBA FLEXTOUCH U-200) 200 unit/mL (3 mL) injection Inject 120 Units subcutaneously daily at bedtime. blood sugar diagnostic (BLOOD GLUCOSE TEST) test strip Test blood sugar(s) 4-5 times daily Dx: Type 2 DM - Uncontrolled E11.65 Insulin: Yes metoprolol tartrate, short acting, (LOPRESSOR) 50 mg tablet TAKE ONE TABLET BY MOUTH TWICE A DAY . MAY TAKE ADDITIONAL 25MG (1/2 TABLET) PER DAY FOR FAST HEART RATE DIRECTED clopidogrel (PLAVIX) 75 mg tablet TAKE ONE TABLET BY MOUTH EVERY DAY insulin aspart U-100 (NOVOLOG FLEXPEN U-100 INSULIN) 100 unit/mL (3 mL) Inject 25 units 3 times a day with meals PLUS Sliding scale as based on pre meal blood sugar as directed (~ 68 units daily) amLODIPine (NORVASC) 5 mg tablet Take 1 tablet by mouth once daily. nitroglycerin sublingual (NITROQUICK) 0.4 mg SL tablet Dissolve 1 tablet under the tongue every 5 minutes as needed for chest pain. IF NO PAIN RELIEF WITH 2ND DOSE, CALL 911 pen needle, diabetic (UNIFINE PENTIPS PLUS) 33 gauge x 5/32 ndle Use with insulin four times daily. E11.40, Z79.4 BIOTIN ORAL Take 1 tablet by mouth once daily. Fish Oil-Ensign-3 Fatty Acids (FISH OIL OMEGA 3-6-9) 300-1,000 mg CpDR Take 3000 mg daily. Lancets (ONE TOUCH ULTRASOFT LANCETS) Misc lancets twice daily. Use as instructed ( may dispense Deuca brand) aspirin, enteric coated (ASPIRIN, ENTERIC COATED) 325 mg EC tablet Take 1 tablet by mouth once daily. MULTIVITAMIN TAB Take one(1) tablet daily. VITAMIN C 1,000 MG TAB Take one(1) tablet daily. No current facility-administered medications for this visit. Objective BP (P) 122/72 (BP Site: Left Arm, BP Position: Sitting, BP Cuff Size: Large Adult) Pulse (P) 78 Wt (P) 134.7 kg (297 lb) BMI (P) 46.87 kg/m? Physical Exam Constitutional: General: He is not in acute distress. Cardiovascular: Rate and Rhythm: Normal rate and regular rhythm. Heart sounds: No murmur heard. No gallop. Pulmonary: Breath sounds: Normal breath sounds. Musculoskeletal: Right lower le+ Pitting Edema present. Left lower le+ Pitting Edema present. Neurological: Mental Status: He is alert. Feet:Shoes and socks removed, No deformities, ulcers, calluses, abnormal pulses Decreased bilaterally, and not sensitive to monofilament. Postsurgical toe changes. Test results pertinent to today's visit were reviewed and discussed with the patient. Depression Screening 10/22/2017 11/30/2020 01/26/2022 06/01/2022 PHQ-2 Score 0 0 0 1 PHQ-9 Score - 2 - - LORAINE-2 (more content not included)... [facility] 06-01-2022 History of Presen t illness Narrative This note was created using Sidewalk. Subjective Miguelangel Moya is a 71 year old male. He was doing well. Doxazosin was held at times due to low blood pressure. Zaroxyln was stopped due to rash. Diabetes was controlled. He was interested in a new medication for statin intolerant patients. Review of Systems Constitutional: Negative. Respiratory: Negative. Cardiovascular: Negative. Gastrointestinal: Negative. Skin: Negative for wound. Neurological: Positive for numbness. Psychiatric/Behavioral: Negative. ACTIVE PROBLEM LIST Generalized Osteoarthrosis, Unspecified Site Esophageal Reflux Venous (Peripheral) Insufficiency Type 2 Diabetes Mellitus With Diabetic Neuropathy, With Long-Term Current Use of Insulin ([facility]) Class 3 Severe Obesity With Body Mass Index (Bmi) of 45.0 to 49.9 in Adult ([facility]) Other Hyperlipidemia Essential Hypertension Coronary Artery Disease of [place] Artery of [place] Heart With Stable Angina Pectoris ([facility]) Persistent Atrial Fibrillation ([facility]) Memory Disturbance Bph (Benign Prostatic Hyperplasia) History of Partial Amputation of Toe ([facility]) Dyspnea On Exertion Statin Intolerance Chronic Diastolic Congestive Heart Failure (Hcc) Valvular Heart Disease Non-Seasonal Allergic Rhinitis Uncontrolled Diabetes Mellitus Hypertensive Heart Disease With Chronic Diastolic Congestive Heart Failure ([facility]) Social History Tobacco Use Smoking status: Never Smokeless tobacco: Current Types: Chew Vaping Use Vaping Use: Never used Substance Use Topics Alcohol use: Yes Comment: Rare Drug use: Never Current Outpatient Medications Medication Sig flash glucose scanning reader (FREESTYLE MERCY 2 READER) Test blood sugar(s) 4-5 times daily Dx: Type 2 DM - Uncontrolled E11.65 Insulin: Yes flash glucose sensor (FREESTYLE MERCY 2 SENSOR) kit Test blood sugar(s) 4-5 times daily Dx: Type 2 DM - Uncontrolled E11.65 Insulin: Yes spironolactone (ALDACTONE) 25 mg tablet Take 1 tablet by mouth once daily. furosemide (LASIX) 80 mg tablet Take 1 tablet by mouth twice daily. Three times per day as directed PRN doxazosin (CARDURA) 1 mg tablet TAKE ONE TABLET BY MOUTH EVERY DAY AT BEDTIME metOLazone (ZAROXOLYN) 2.5 mg tablet Take 1 tablet by mouth once daily. insulin degludec (TRESIBA FLEXTOUCH U-200) 200 unit/mL (3 mL) injection Inject 120 Units subcutaneously daily at bedtime. blood sugar diagnostic (BLOOD GLUCOSE TEST) test strip Test blood sugar(s) 4-5 times daily Dx: Type 2 DM - Uncontrolled E11.65 Insulin: Yes metoprolol tartrate, short acting, (LOPRESSOR) 50 mg tablet TAKE ONE TABLET BY MOUTH TWICE A DAY . MAY TAKE ADDITIONAL 25MG (1/2 TABLET) PER DAY FOR FAST HEART RATE DIRECTED clopidogrel (PLAVIX) 75 mg tablet TAKE ONE TABLET BY MOUTH EVERY DAY insulin aspart U-100 (NOVOLOG FLEXPEN U-100 INSULIN) 100 unit/mL (3 mL) Inject 25 units 3 times a day with meals PLUS Sliding scale as based on pre meal blood sugar as directed (~ 68 units daily) amLODIPine (NORVASC) 5 mg tablet Take 1 tablet by mouth once daily. nitroglycerin sublingual (NITROQUICK) 0.4 mg SL tablet Dissolve 1 tablet under the tongue every 5 minutes as needed for chest pain. IF NO PAIN RELIEF WITH 2ND DOSE, CALL 911 pen needle, diabetic (UNIFINE PENTIPS PLUS) 33 gauge x 5/32 ndle Use with insulin four times daily. E11.40, Z79.4 BIOTIN ORAL Take 1 tablet by mouth once daily. Fish Oil-Ensign-3 Fatty Acids (FISH OIL OMEGA 3-6-9) 300-1,000 mg CpDR Take 3000 mg daily. Lancets (ONE TOUCH ULTRASOFT LANCETS) [facility] lancets twice daily. Use as instructed ( may dispense Deuca brand) aspirin, enteric coated (ASPIRIN, ENTERIC COATED) 325 mg EC tablet Take 1 tablet by mouth once daily. MULTIVITAMIN TAB Take one(1) tablet daily. VITAMIN C 1,000 MG TAB Take one(1) tablet daily. No current facility-administered medications for this visit. Objective BP (P) 122/72 (BP Site: Left Arm, BP Position: Sitting, BP Cuff Size: Large Adult) Pulse (P) 78 Wt (P) 134.7 kg (297 lb) BMI (P) 46.87 kg/m Physical Exam Constitutional: General: He is not in acute distress. Cardiovascular: Rate and Rhythm: Normal rate and regular rhythm. Heart sounds: No murmur heard. No gallop. Pulmonary: Breath sounds: Normal breath sounds. Musculoskeletal: Right lower le+ Pitting Edema present. Left lower le+ Pitting Edema present. Neurological: Mental Status: He is alert. Feet:Shoes and socks removed, No deformities, ulcers, calluses, abnormal pulses Decreased bilaterally, and not sensitive to monofilament. Postsurgical toe changes. Test results pertinent to today's visit were reviewed and discussed with the patient. Depression Screening 10/22/2017 11/30/2020 01/26/2022 06/01/2022 PHQ-2 Score 0 0 0 1 PHQ-9 Score - 2 - - LORAINE-2 Total Score - - - - Depression screening tool completed and reviewed. Based on score and interview, patient is not at risk for depression. Screening tool discussed with patient, and I recommended no further intervention at this time. Assessment and Plan 1. Statin intolerance - ICD9: 995.27, ICD10: Z78.9 (primary diagnosis) See below. 2. Type 2 diabetes mellitus with diabetic neuropathy, with long-term current use of insulin (HCC) - ICD9: 250.60, 357.2, V58.67, ICD10: E11.40, Z79.4 - Controlled - Continue current medications - AMLODIPINE 5 MG TABLET - INSULIN ASPART (U-100) 100 UNIT/ML (3 ML) SUBCUTANEOUS PEN - INSULIN DEGLUDEC (U-200) 200 UNIT/ML (3 ML) SUBCUTANEOUS PEN - PEN NEEDLE, DIABETIC 33 GAUGE X - BASIC METABOLIC PNL - HGB A1C 3. Chronic diastolic congestive heart failure (HCC) - ICD9: 428.32, 428.0, ICD10: I50.32 Controlled. - METOPROLOL TARTRATE 50 MG TABLET - SPIRONOLACTONE 25 MG TABLET 4. Essential hypertension - ICD9: 401.9, ICD10: I10 - good control - Discontinue DOXAZOSIN. 5. Coronary artery disease of [place] artery of [place] heart with stable angina pectoris (HCC) - ICD9: 414.01, 413.9, ICD10: I25.118 Stable. - CLOPIDOGREL 75 MG TABLET 6. Other hyperlipidemia - ICD9: 272.4, ICD10: E78.49 Discussed medication dosage, usage, goals of therapy, and side effects. Printed RX. He will check pricing and coverage. - NEXLIZET 180 MG-10 MG TABLET - LIPID PANEL BASIC Krishna Reynolds MD documented in this encounter [facility] 05-14-2022 Note HNO ID: [id number] Author: Arabella Heredia DPM Service: ? Author Type: Physician Type: Progress Notes Filed: 05/14/2022 10:37 AM Note Text: This 71 year old male presents for painful calluses bilateral feet. SMBGs are better. no other pedal complaints PAIN EVALUATION 05/14/2022 0943 Pain Level: -- 2-9 Pain Location: -- bilateral plantar foot Description: Tingling;Numbness;Shooting;Adriano p Duration Units: Years Frequency: Intermittent Comments: callous debridement PAST MEDICAL HISTORY Diagnosis Date Acute kidney injury ([facility]) with acute tubular necrosis (ATN) (HCC) 11/06/2019 CAD (coronary artery disease) 10/07/2007 70% stenosis circumflex 2nd marginal branch. Drug eluting stent done. Diabetic ulcer of toe of left foot associated with type 2 diabetes mellitus (HCC) 06/21/2020 Esophageal reflux Generalized osteoarthrosis, unspecified site Nephrolithiasis 10/17/2016 NEUROPATHY IN DIABETES 01/30/2006 Nonspecific abnormal results of liver function study Obesity, unspecified JAMES (obstructive sleep apnea) 08/13/2013 declined tx Osteomyelitis of second toe of right foot (HCC) 09/17/2019 Osteomyelitis of third toe of right foot (HCC) 09/17/2019 Other and unspecified hyperlipidemia Paroxysmal atrial fibrillation (HCC) 10/07/2007 Personal history of contact with and (suspected) exposure to asbestos Type II or unspecified type diabetes mellitus without mention of complication, not stated as uncontrolled Unspecified essential hypertension Unspecified venous (peripheral) insufficiency Current Outpatient Medications Medication Sig spironolactone (ALDACTONE) 25 mg tablet Take 1 tablet by mouth once daily. furosemide (LASIX) 80 mg tablet Take 1 tablet by mouth twice daily. Three times per day as directed PRN doxazosin (CARDURA) 1 mg tablet TAKE ONE TABLET BY MOUTH EVERY DAY AT BEDTIME insulin degludec (TRESIBA FLEXTOUCH U-200) 200 unit/mL (3 mL) injection Inject 120 Units subcutaneously daily at bedtime. blood sugar diagnostic (BLOOD GLUCOSE TEST) test strip Test blood sugar(s) 4-5 times daily Dx: Type 2 DM - Uncontrolled 65 Insulin: Yes metoprolol tartrate, short acting, (LOPRESSOR) 50 mg tablet TAKE ONE TABLET BY MOUTH TWICE A DAY . MAY TAKE ADDITIONAL 25MG (1/2 TABLET) PER DAY FOR FAST HEART RATE DIRECTED clopidogrel (PLAVIX) 75 mg tablet TAKE ONE TABLET BY MOUTH EVERY DAY insulin aspart U-100 (NOVOLOG FLEXPEN U-100 INSULIN) 100 unit/mL (3 mL) Inject 25 units 3 times a day with meals PLUS Sliding scale as based on pre meal blood sugar as directed (~ 68 units daily) amLODIPine (NORVASC) 5 mg tablet Take 1 tablet by mouth once daily. nitroglycerin sublingual (NITROQUICK) 0.4 mg SL tablet Dissolve 1 tablet under the tongue every 5 minutes as needed for chest pain. IF NO PAIN RELIEF WITH 2ND DOSE, CALL 911 pen needle, diabetic (UNIFINE PENTIPS PLUS) 33 gauge x 5/32 ndle Use with insulin four times daily. E11.40, Z79.4 BIOTIN ORAL Take 1 tablet by mouth once daily. Fish Oil-Ensign-3 Fatty Acids (FISH OIL OMEGA 3-6-9) 300-1,000 mg CpDR Take 3000 mg daily. aspirin, enteric coated (ASPIRIN, ENTERIC COATED) 325 mg EC tablet Take 1 tablet by mouth once daily. MULTIVITAMIN TAB Take one(1) tablet daily. flash glucose scanning reader (FREESTYLE MERCY 2 READER) Test blood sugar(s) 4-5 times daily Dx: Type 2 DM - Uncontrolled Insulin: Yes (Patient not taking: Reported on 05/14/2022) flash glucose sensor (FREESTYLE MERCY 2 SENSOR) kit Test blood sugar(s) 4-5 times daily Dx: Type 2 DM - Uncontrolled .65 Insulin: Yes (Patient not taking: Reported on 05/14/2022) metOLazone (ZAROXOLYN) 2.5 mg tablet Take 1 tablet by mouth once daily. (Patient not taking: Reported on 05/14/2022) Lancets (ONE TOUCH ULTRASOFT LANCETS) Misc lancets twice daily. Use as instructed ( may dispense Deuca brand) VITAMIN C 1,000 MG TAB Take one(1) tablet daily. (Patient not taking: Reported on 05/14/2022) No current facility-administered medications for this visit. ALLERGIES Allergen Reactions Altace [Ramipril] Intolerance Bactrim [Sulfametho* Hives Diovan [Valsartan] Metolazone Rash Propofol Other: See Comments agitation Ramipril Seasonal Allergies Other: See Comments Jehtuew-Afc-Eiw Red* Other: See Comments Muscle aches OBJECTIVE: Patient presents WB with regular shoe gear Neurovascular status is grossly unchanged. Absent vibratory sensation at the hallux IPJ. Intact protective sensation hyperkeratotic tissue noted subfifth MTP joint left. Hyperkeratotic tissue also noted to the medial aspect of the left distal hallux. Hemoglobin A1C (%) Date Value 11/26/2020 9.1 08/15/2020 8.6 02/13/2020 7.6 10/01/2019 6.1 04/08/2019 6.0 HGBA1C (%) Date Value 01/12/2022 6.3 Assessment: B/L callosities (3 total) Better controlled type 2 diabetes with multiple tylomas PLAN: Treatment today consisted of -Exam -Debrided calluses x 3 Continue f (more content not included)... [facility] 04-16-2022 Note HNO ID: [id number] Author: Nhung Hou MA Service: ? Author Type: Pie Topper Type: Progress Notes Filed: 04/16/2022 4:27 PM Note Text: POPULATION HEALTH NAVIGATION OUTREACH Action/FYI Patient need consult at the Diabetic education Navigation Signature: Nhung Hou MA April 16, 2022 4:20 PM [facility] 04-10-2022 Note Patient Outreach (LORETO BRONSONAV) MIGUELANGEL MOYA ([id number]) 1950 M Date Time Provider Department 04/10/22 NHUNG HOUV During your visit today, we recorded the following information about you: Nhung Hou MA 04/10/2022 2:18 PM Signed POPULATION HEALTH NAVIGATION OUTREACH Action/FYI Spoke with Manuel. CHRISTINE is scheduled for the end of this month. HGBA1C was done 01-12-22 6.3 Health Maintenance items due: URINE ALBUMIN:CREATININE RATIO due on 02/14/2022 ADVANCE DIRECTIVE DISCUSSION due on 03/25/2022 DILATED RETINAL EXAM due on 04/14/2022 Pt identified by name and : YES, via phone Outreach Outcome/Action Spoke to patient / parent / legal guardian: No action required (information or reminder only) Did you use a PCP flex slot to schedule this appointment? N/A Reason for Outreach Care Gap or Scheduling/Wellness visits Payer: Payor: MEDICARE / Plan: MEDICARE A AND B / Product Type: Medicare / Care Gap Reviewed:: Diabetic Eye Exam HBA1C Nephropathy (Albumin/Creatinine) Urine Reminder: Reminder note to check Health Maintenance for items below Health Maintenance items due: HBA1C due on 08/15/2021 URINE ALBUMIN:CREATININE RATIO due on 02/14/2022 ADVANCE DIRECTIVE DISCUSSION due on 03/25/2022 DEPRESSION ASSESSMENT due on 03/25/2022 DILATED RETINAL EXAM due on 04/14/2022 DIABETIC FOOT EXAM due on 05/01/2022 Navigation Signature: Nhung Hou MA April 10, 2022 7:35 AM Nhung Hou MA 04/16/2022 4:27 PM Signed POPULATION HEALTH NAVIGATION OUTREACH Action/FYI Patient need consult at the Diabetic education Navigation Signature: Nhung Hou MA April 16, 2022 4:20 PM Nhung oHu MA 04/16/2022 4:28 PM Signed Addended by: NHUNG HOU on: 04/16/2022 04:28 PM Modules accepted: Orders Leila Russell APRN.CNP 04/18/2022 7:35 AM Signed Addended by: LEILA RUSSELL on: 04/18/2022 07:35 AM Modules accepted: Orders Allergies As of Date: 04/10/2022 Noted Allergy Reaction ALTACE (RAMIPRIL) 12/29/2004 5 - Intolerance BACTRIM (SULFAMETHOXAZOLE-TRIMETH*05/24 /2021 4 - Hives DIOVAN (VALSARTAN) 12/29/2004 METOLAZONE 01/15/2022 2 - Rash PROPOFOL 02/10/2020 14 - Other: See Comments Comments: agitation RAMIPRIL 11/05/2007 SEASONAL ALLERGIES 08/04/2012 14 - Other: See Comments [id number] REDUCTASE INHIBIT*06/18/2011 14 - Other: See Comments Comments: Muscle aches Date Reviewed: 01/26/2022 Reviewed by: Leila Russell APRN.INSPECTOR FIBROUS WALLBOARD - Fully Assessed Reason for Visit: Population Health Navigation Outreach [3140] Cmt: SCOUT CARRASCOA Primary Visit Diagnosis:Type 2 diabetes mellitus with diabetic neuropathy, with long-term current use of insulin (HCC) [E11.40, Z79.4] Order(s):CONSULT TO [facility] [[id number]] Order #: [id number]: 1 Prescriptions as of 04/18/2022 - flash glucose scanning reader (i.TVSTYLE MERCY 2 READER) Test blood sugar(s) 4-5 times daily Dx: Type 2 DM - Uncontrolled .65 Insulin: Yes - flash glucose sensor (FREESTYLE MERCY 2 SENSOR) kit Test blood sugar(s) 4-5 times daily Dx: Type 2 DM - Uncontrolled E11.65 Insulin: Yes - spironolactone (ALDACTONE) 25 mg tablet Take 1 tablet by mouth once daily. - furosemide (LASIX) 80 mg tablet Take 1 tablet by mouth twice daily. Three times per day as directed PRN - doxazosin (CARDURA) 1 mg tablet TAKE ONE TABLET BY MOUTH EVERY DAY AT BEDTIME - metOLazone (ZAROXOLYN) 2.5 mg tablet Take 1 tablet by mouth once daily. - insulin degludec (TRESIBA FLEXTOUCH U-200) 200 unit/mL (3 mL) injection Inject 120 Units subcutaneously daily at bedtime. - blood sugar diagnostic (BLOOD GLUCOSE TEST) test strip Test blood sugar(s) 4-5 times daily Dx: Type 2 DM - Uncontrolled .65 Insulin: Yes - metoprolol tartrate, short acting, (LOPRESSOR) 50 mg tablet TAKE ONE TABLET BY MOUTH TWICE A DAY . MAY TAKE ADDITIONAL 25MG (1/2 TABLET) PER DAY FOR FAST HEART RATE DIRECTED - clopidogrel (PLAVIX) 75 mg tablet TAKE ONE TABLET BY MOUTH EVERY DAY - insulin aspart U-100 (NOVOLOG FLEXPEN U-100 INSULIN) 100 unit/mL (3 mL) Inject 25 units 3 times a day with meals PLUS Sliding scale as based on pre meal blood sugar as directed (~ 68 units daily) - amLODIPine (NORVASC) 5 mg tablet Take 1 tablet by mouth once daily. - nitroglycerin sublingual (NITROQUICK) 0.4 mg SL tablet Dissolve 1 tablet under the tongue every 5 minutes as needed for chest pain. IF NO PAIN RELIEF WITH 2ND DOSE, CALL 911 - pen needle, diabetic (UNIFINE PENTIPS PLUS) 33 gauge x 5/32 ndle Use with insulin four times daily. E11.40, Z79.4 - BIOTIN ORAL Take 1 tablet by mouth once daily. - Fish Oil-Ensign-3 Fatty Acids (FISH OIL OMEGA 3-6-9) 300-1,000 mg CpDR Take 3000 mg daily. - Lancets (ONE TOUCH ULTRASOFT LANCETS) Misc lancets twice daily. Use as instructed ( may dispense Deuca brand) - aspirin, enteric coated (ASPIRIN, EN (more content not included)... [facility] 04-10-2022 Note HNO ID: [id number] Author: Nhung Hou MA Service: ? Author Type: Pie Topper Type: Progress Notes Filed: 04/10/2022 2:18 PM Note Text: POPULATION HEALTH NAVIGATION OUTREACH Action/FYI Spoke with Manuel. CHRISTINE is scheduled for the end of this month. HGBA1C was done 01-12-22 6.3 Health Maintenance items due: URINE ALBUMIN:CREATININE RATIO due on 02/14/2022 ADVANCE DIRECTIVE DISCUSSION due on 03/25/2022 DILATED RETINAL EXAM due on 04/14/2022 Pt identified by name and : YES, via phone Outreach Outcome/Action Spoke to patient / parent / legal guardian: No action required (information or reminder only) Did you use a PCP flex slot to schedule this appointment? N/A Reason for Outreach Care Gap or Scheduling/Wellness visits Payer: Payor: MEDICARE / Plan: MEDICARE A AND B / Product Type: Medicare / Care Gap Reviewed:: Diabetic Eye Exam HBA1C Nephropathy (Albumin/Creatinine) Urine Reminder: Reminder note to check Health Maintenance for items below Health Maintenance items due: HBA1C due on 08/15/2021 URINE ALBUMIN:CREATININE RATIO due on 02/14/2022 ADVANCE DIRECTIVE DISCUSSION due on 03/25/2022 DEPRESSION ASSESSMENT due on 03/25/2022 DILATED RETINAL EXAM due on 04/14/2022 DIABETIC FOOT EXAM due on 05/01/2022 Navigation Signature: Nhung Hou MA April 10, 2022 7:35 AM [facility] 04-10-2022 History of Presen t illness Narrative POPULATION HEALTH NAVIGATION OUTREACH Action/FYI Spoke with Manuel. CHRISTINE is scheduled for the end of this month. HGBA1C was done 01-12-22 6.3 Health Maintenance items due: URINE ALBUMIN:CREATININE RATIO due on 02/14/2022 ADVANCE DIRECTIVE DISCUSSION due on 03/25/2022 DILATED RETINAL EXAM due on 04/14/2022 Pt identified by name and : YES, via phone Outreach Outcome/Action Spoke to patient / parent / legal guardian: No action required (information or reminder only) Did you use a PCP flex slot to schedule this appointment? N/A Reason for Outreach Care Gap or Scheduling/Wellness visits Payer: Payor: MEDICARE / Plan: MEDICARE A AND B / Product Type: Medicare / Care Gap Reviewed:: Diabetic Eye Exam HBA1C Nephropathy (Albumin/Creatinine) Urine Reminder: Reminder note to check Health Maintenance for items below Health Maintenance items due: HBA1C due on 08/15/2021 URINE ALBUMIN:CREATININE RATIO due on 02/14/2022 ADVANCE DIRECTIVE DISCUSSION due on 03/25/2022 DEPRESSION ASSESSMENT due on 03/25/2022 DILATED RETINAL EXAM due on 04/14/2022 DIABETIC FOOT EXAM due on 05/01/2022 Navigation Signature: Nhung Hou MA April 10, 2022 7:35 AM documented in this encounter [facility] 03-15-2022 History of Presen t illness Narrative DIABETES SELF-MANAGEMENT EDUCATION AND SUPPORT Location: [place] Type of visit: In person individual Types of DSMES: Initial/Comprehensive (add to or update ADA spreadsheet) PATIENT'S MAIN CONCERN TODAY: Samson Bonds Support person present for education today: spouse Cognitive ability: Alert and oriented Motivation to learn: Interested Learning barriers identified by educator: none Method of instruction: written, verbal, and demonstration INTERVENTIONS/TOPICS COVERED: -Diabetes Pathophysiology: insulin resistance, relationship of glucose and insulin in the body, and hepatic glucose release -Monitoring: BG targets, using a home glucose monitor, CGM type: Freestyle Libre2, CGM basics & daily use, and CGM insertion steps -Healthy Eating: foods with carbs and portion sizes -Medications: medication safety/timing, medication side effects, insulin storage, site selection/rotation, pen injection instruction, and injectable insulin discussed: aspart (Novolog) and degludec (Tresiba) -Physical Activity: benefits of exercise and impact of exercise on BG -Acute Complications: hypoglycemia s/sx/tx, hyperglycemia s/sx/tx, sick day rules, and pattern management -Chronic Complications: importance of annual eye exams, LT complications, and importance of BG control to reduce risks -Healthy Coping and Support: impact of stress on BG DIABETES ASSESSMENT: Referring Physician: Previous Diabetes Education? Yes, if so when? asked/not answered What are you hoping to gain from this visit? Learn this [facility] things In your words, what is diabetes? asked/not answered What concerns you about having diabetes? asked/not answered Diabetes History: Type of Diabetes: Type 2 What year were you diagnosed? 2006 Does anyone in your family have diabetes? no How do you learn best? 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 rarely How often does someone help you read your pill bottles? rarely How often does someone have to help you take care of your diabetes? rarely Major stressors:asked/not answered How do you manage stress? asked/not answered Do any of the following things get in the way of managing your diabetes? Other health problems Health History: Most recent eye exam: several times per year Most recent dental exam: no teeth at this time Most recent foot exam: 11/13/21 How often do you inspect your feet at home? Daily Do you use tobacco? Chewing tobacco only Do you use alcohol? No In the past 12 months have you had any: Hospital Admissions: No ER Visits: No Primary Care Visits: Yes, Number of Times? 4 What are your general feelings about you overall health? Fair Medical Issues/Complications: PAST MEDICAL HISTORY Diagnosis Date Acute kidney injury ([facility]) with acute tubular necrosis (ATN) ([facility]) 11/06/2019 CAD (coronary artery disease) 10/07/2007 70% stenosis circumflex 2nd marginal branch. Drug eluting stent done. Diabetic ulcer of toe of left foot associated with type 2 diabetes mellitus (HCC) 06/21/2020 Esophageal reflux Generalized osteoarthrosis, unspecified site Nephrolithiasis 10/17/2016 NEUROPATHY IN DIABETES 01/30/2006 Nonspecific abnormal results of liver function study Obesity, unspecified JAMES (obstructive sleep apnea) 08/13/2013 declined tx Osteomyelitis of second toe of right foot ([facility]) 09/17/2019 Osteomyelitis of third toe of right foot (HCC) 09/17/2019 Other and unspecified hyperlipidemia Paroxysmal atrial fibrillation ([facility]) 10/07/2007 Personal history of contact with and (suspected) exposure to asbestos Type II or unspecified type diabetes mellitus without mention of complication, not stated as uncontrolled Unspecified essential hypertension Unspecified venous (peripheral) insufficiency Most recent A1C Lab Results Component Value Date HBA1C 9.1 11/26/2020 HBA1C 8.6 08/15/2020 HBA1C 7.6 02/13/2020 Physical Activity: Do you do a regular exercise? Yes; how many days per week 1-2 How long each day? Less than 30 min Type of Exercise: Sick Days: How do you manage your diabetes when you are sick? Asked/not answered Sleep: Do you get at least 7 hrs of sleep most nights? asked/not answered Current Outpatient Medications Medication Sig flash glucose scanning reader (FREESTYLE MERCY 2 READER) Test blood sugar(s) 4-5 times daily Dx: Type 2 DM - Uncontrolled E11.65 Insulin: Yes flash glucose sensor (FREESTYLE MERCY 2 SENSOR) kit Test blood sugar(s) 4-5 times daily Dx: Type 2 DM - Uncontrolled E11.65 Insulin: Yes spironolactone (ALDACTONE) 25 mg tablet Take 1 tablet by mouth once daily. furosemide (LASIX) 80 mg tablet Take 1 tablet by mouth twice daily. Three times per day as directed PRN doxazosin (CARDURA) 1 mg tablet TAKE ONE TABLET BY MOUTH EVERY DAY AT BEDTIME metOLazone (ZAROXOLYN) 2.5 mg tablet Take 1 tablet by mouth once daily. insulin degludec (TRESIBA FLEXTOUCH U-200) 200 unit/mL (3 mL) injection Inject 120 Units subcutaneously daily at bedtime. blood sugar diagnostic (BLOOD GLUCOSE TEST) test strip Test blood sugar(s) 4-5 times daily Dx: Type 2 DM - Uncontrolled E11.65 Insulin: Yes metoprolol tartrate, short acting, (LOPRESSOR) 50 mg tablet TAKE ONE TABLET BY MOUTH TWICE A DAY . MAY TAKE ADDITIONAL 25MG (1/2 TABLET) PER DAY FOR FAST HEART RATE DIRECTED clopidogrel (PLAVIX) 75 mg tablet TAKE ONE TABLET BY MOUTH EVERY DAY insulin aspart U-100 (NOVOLOG FLEXPEN U-100 INSULIN) 100 unit/mL (3 mL) Inject 25 units 3 times a day with meals PLUS Sliding scale as based on pre meal blood sugar as directed (~ 68 units daily) amLODIPine (NORVASC) 5 mg tablet Take 1 tablet by mouth once daily. nitroglycerin sublingual (NITROQUICK) 0.4 mg SL tablet Dissolve 1 tablet under the tongue every 5 minutes as needed for chest pain. IF NO PAIN RELIEF WITH 2ND DOSE, CALL 911 pen needle, diabetic (UNIFINE PENTIPS PLUS) 33 gauge x 5/32 ndle Use with insulin four times daily. E11.40, Z79.4 BIOTIN ORAL Take 1 tablet by mouth once daily. Fish Oil-Ensign-3 Fatty Acids (FISH OIL OMEGA 3-6-9) 300-1,000 mg CpDR Take 3000 mg daily. Lancets (ONE TOUCH ULTRASOFT LANCETS) [facility] lancets twice daily. Use as instructed ( may dispense Deuca brand) aspirin, enteric coated (ASPIRIN, ENTERIC COATED) 325 mg EC tablet Take 1 tablet by mouth once daily. MULTIVITAMIN TAB Take one(1) tablet daily. VITAMIN C 1,000 MG TAB Take one(1) tablet daily. No current facility-administered medications for this visit. Injections Technique: Do you take insulin or a medication you inject for your diabetes? Yes;then if so answer the following questions: How do you inject your medicine Pen Where are your injections done? Thigh and Back of upper arm Who prepares your syringes, pen, or pump infusion set? Other spouse Who gives you injections or changes your pump sites? Me Where do you throw away your needles? Asked/not answered Blood Sugar Monitoring: Do you have a blood sugar monitor? Yes; How often do you check? 2-4x When you check? Before breakfast and Before all/most meals. Do you log your blood sugars? Ask/Not answered. Where do you throw away your lancets? Asked/not answered Management of Low Blood Sugar: What has been your lowest blood sugar in the last month? 53 What are your symptoms of lows?Shaky and Sweaty How do you treat lows? Glucose tabs Do you drive? asked/not answered Management of High Blood Sugar: What has been you highest blood sugar in the last month? asked/not answered What are your symptoms of highs? Thirsty and Tired How do you treat your highs? asked/not answered Meal Planning: Are you currently following any meal plan? None Who does the cooking in your house? Spouse Who does the grocery shopping? Asked/not answered How often do you eat out? asked/not answered How many meals do you eat per day? Three Which meals do you tend to skip? Asked/not answered Beverages: asked/not answered Reproductive Status (Females): Have you reached menopause? N/A (male patient) EDUCATION HANDOUTS: Healthy You: Survival Skills and Healthy You: Planning Healthy Meals LEARNING RESPONSE: Diabetes pathophysiology: Not assessed at the visit Healthy eating: Demonstrated understanding/competency today or at previous visit Being active: Demonstrated understanding/competency today or at previous visit Taking medications: Demonstrated understanding/competency today or at previous visit Monitoring glucose: Demonstrated understanding/competency today or at previous visit Acute complications: Demonstrated understanding/competency today or at previous visit Chronic complications: Not assessed at the visit Healthy coping: Demonstrated understanding/competency today or at previous visit Diabetes distress and support: Not assessed at the visit PATIENT SELECTED THE FOLLOWING GOALS: -Monitoring goal: begin following sugars with Libre2 3: I have a plan to start POSSIBLE FUTURE TOPICS: 1. The following topics were not assessed due to time limitations, but should be assessed at the next visit: . 2. The following topics should be taught or reinforced at the next visit: . DIABETES EDUCATION PLAN: Individual follow-up Time Spent (Minutes): 30 This visit note will be communicated to the healthcare provider via access to shared medical record. SIGNATURE: Regulo Lamas RN PATIENT NAME: Miguelangel Moya DATE: March 15, 2022 TIME: 3:47 PM PAGER: documented in this encounter [facility] 02-05-2022 Miscellaneous Notes Miguelangel Moya is calling Krishna Reynolds MD today to request an order for diabetic foot wear from [employer], in [place]. Please advise patient when order has been faxed. Patient has been identified by name and birthdate. Duration of symptoms: N/A Person calling: self Call patient at: on wifes cell [phone] (cell) Was an appointment scheduled: No Closing statement: Symptom Call: Thank you for calling [facility], your call is very important. A nurse will call in approximately 2-4 hours during business hours. If this is an emergency, please contact 911. Guillermina Love [facility] Electronically signed by Guillermina Love [facility] at 02/05/2022 10:54 AM EST documented in this encounter [facility] 01-29-2022 Miscellaneous Notes Mailed Labs ordered, please print and mail to patient. Also print and mail urine test ordered on 01/26 Leila Russell APRN.CNP Patient is asking for any lab work that would be ordered for his appointment with Dr. Reynolds on 06/01 be mailed to him as he takes them to [facility]. Please advise and mail lab orders. Thank you. documented in this encounter [facility] 01-26-2022 History of Presen t illness Narrative Medicare Yearly Visit Medical B eligibilty date 2010 Date of last exam 11/30/20 PAST MEDICAL HISTORY Diagnosis Date Acute kidney injury (DANIELA) with acute tubular necrosis (ATN) (HCC) 11/06/2019 CAD (coronary artery disease) 10/07/2007 70% stenosis circumflex 2nd marginal branch. Drug eluting stent done. Diabetic ulcer of toe of left foot associated with type 2 diabetes mellitus (HCC) 06/21/2020 Esophageal reflux Generalized osteoarthrosis, unspecified site Nephrolithiasis 10/17/2016 NEUROPATHY IN DIABETES 01/30/2006 Nonspecific abnormal results of liver function study Obesity, unspecified JAMES (obstructive sleep apnea) 08/13/2013 declined tx Osteomyelitis of second toe of right foot (HCC) 09/17/2019 Osteomyelitis of third toe of right foot (HCC) 09/17/2019 Other and unspecified hyperlipidemia Paroxysmal atrial fibrillation (HCC) 10/07/2007 Personal history of contact with and (suspected) exposure to asbestos Type II or unspecified type diabetes mellitus without mention of complication, not stated as uncontrolled Unspecified essential hypertension Unspecified venous (peripheral) insufficiency PAST SURGICAL HISTORY Procedure Laterality Date ADENOIDECTOMY PRIMARY <AGE 12 1961 Adenoidectomy AMPUTATION TOE INTERPHALANGEAL JOINT Right 09/17/2019 2nd, 3rd toes, right foot AMPUTATION TOE,MT-P JT Left 08/19/2020 distal Symes 2nd & 3rd toe, Left CC CORONARY STENT 07/01/2020 left main, proximal to mild LAD CYSTOSCOPY 06/23/2014 LEFT HEART CATH,PERCUTANEOUS 10/07/2007 Cardiac cath, L heart LEFT HEART CATH,PERCUTANEOUS 12/29/2019 [facility] TONSILLECTOMY PRIMARY/SECONDARY <AGE 12 1958 Tonsillectomy TRANSCATH STENT INIT VESSEL,PERCUT 11/10/2007 Transcath stent init vessel percmiquel, DILIA VASECTOMY UNI/BI SPX W/POSTOP SEMEN EXAMS 1977 ALLERGIES: Altace [Ramipril], Bactrim [Sulfamethoxazole-Trimethoprim] , Diovan [Valsartan], Metolazone, Propofol, Ramipril, Seasonal Allergies, and Ejfefgt-Lmr-Mkn Reductase Inhibitors Medications reviewed: Yes FAMILY HISTORY Problem Relation Age of Onset Heart Father Hypertension Mother Stroke Mother Lipids Mother Thyroid Sister Cancer Brother bladder and kidney SOCIAL HISTORY: Social History Tobacco Use Smoking status: Never Smokeless tobacco: Current Types: Chew Vaping Use Vaping Use: Never used Substance Use Topics Alcohol use: Yes Comment: Rare Drug use: Never Miguelangel likes to exercise by going to [employer] two times a week. He watches his diet for sodium, low fat and low cholesterol most of the time. List of current specialists seen: Sorter Pricer- Dr. Stover Pilling Machine Operator- Dr. Aleman Renal- Dr. Hebert Podiatry-[facility] (Dr. Heredia) End of Live Planning discussed including patients advanced directive wishes: Yes I am willing to follow Miguelangel's advanced directives. Evidence of Cognitive Impairment: No What tool was used to assess the patients cognitive status? MiniCog 5/5. PHQ-2 / Depression screen He in the past two weeks denies having felt down, depressed, hopeless, or with little interest or pleasure in doing things. Functional Ability/Safety Screen 1. Was the patient's timed Up and Go test unsteady or longer than 30 seconds? No 2. Does the patient need help with the phone, transportation, shopping,preparing meals, housework, laundry, medications or managing money? No except helps with showers and medications 3. Does your home have rugs in the hallway, lack of grab bars in the bathroom, lack of handrails on the stairs or have poor lighting? No Hearing Evaluation: normal PHYSICAL EXAM BP 103/62 Pulse 76 Resp 20 Ht 169.5 cm (5' 6.75 ) Wt 134.7 kg (297 lb) BMI 46.87 kg/m Alert and oriented X 3: YES Body mass index is 46.87 kg/m . ASSESSMENT/PLAN: 1. Medicare annual wellness visit, subsequent - ICD9: V70.0, ICD10: Z00.00 (primary diagnosis) - Counseled on healthy diet and regular exercise - Discussed need for and benefit of weight loss. BMI 46.87 kg/(m^2) - Depression screening tool completed and reviewed with patient. Based on score and interview, patient is not at risk for depression and recommended no further intervention at this time. 2. Type 2 diabetes mellitus with diabetic neuropathy, with long-term current use of insulin (HCC) - ICD9: 250.60, 357.2, V58.67, ICD10: E11.40, Z79.4 Patient requesting CGM, poking his fingers 4-5 times a day and getting very sore. Orders sent. Schedule with diabetes nurse for CGM education - CONSULT TO DIABETES EDUCATION - ALBUMIN/CREAT RATIO RND UR 3. Balance problem - ICD9: 781.99, ICD10: R26.89 - CONSULT TO PHYSICAL THERAPY 4. Gait abnormality - ICD9: 781.2, ICD10: R26.9 - CONSULT TO PHYSICAL THERAPY 5. Chronic diastolic congestive heart failure (HCC) - ICD9: 428.32, 428.0, ICD10: I50.32 - SPIRONOLACTONE 25 MG TABLET Leila Russell APRN.DANA documented in this encounter [facility] 01-25-2022 Miscellaneous Notes Spoke to Samantha, Pharm D. at [facility] to clarify order. She will fill rx for pt. Flavia Tadeo RN After reviewing office visit notes from 01/15/[address] Stover, it looks like pt. is taking Lasix 80 mg BID, and takes a third pill occasionally PRN for leg swelling. Please advise and send new order to [facility]. Thank you. Flavia Tadeo, RN Marcia with [facility] called regarding order for Lasix. They need clarification on the order: 1 tablet by mouth twice daily. Three times per day as directed PRN. New order can be sent. Brittney Bass LPN documented in this encounter [facility] 01-15-2022 History of Presen t illness Narrative Images from the original note were not included. [facility] Cardiology ([address]) [address] [facility] [id number] OUTPATIENT VISIT DATE 01/15/2022 PRIMARY CARE PHYSICIAN: Krishna Reynolds [address] [place] [address] HISTORY OF PRESENT ILLNESS: Mr. Moya is a 71 year old morbidly obese gentleman with a history of coronary artery disease and prior high risk coronary intervention, diabetes (insulin requiring), chronic diastolic congestive heart failure, hypertension, obstructive sleep apnea (noncompliant with CPAP) and dyslipidemia who presents for routine follow-up. Since his last visit, he tells me he has been doing about the same. He has shortness of breath on exertion and instability secondary to neuropathy. He denies symptoms of chest pain or pressure. He has occasional episodes of lower extremity edema which get worse. His usually increases his Lasix 220 mg a.m. continues 80 mg p.m. for 2 to 3 days until his lower extremity edema improved. Denies symptoms of palpitations, heart racing, lightheadedness, dizziness, or syncope PAST MEDICAL HISTORY Diagnosis Date Acute kidney injury (DANIELA) with acute tubular necrosis (ATN) ([facility] 11/06/2019 CAD (coronary artery disease) 10/07/2007 70% stenosis circumflex 2nd marginal branch. Drug eluting stent done. Diabetic ulcer of toe of left foot associated with type 2 diabetes mellitus (HCC) 06/21/2020 Esophageal reflux Generalized osteoarthrosis, unspecified site Nephrolithiasis 10/17/2016 NEUROPATHY IN DIABETES 01/30/2006 Nonspecific abnormal results of liver function study Obesity, unspecified JAMES (obstructive sleep apnea) 08/13/2013 declined tx Osteomyelitis of second toe of right foot (HCC) 09/17/2019 Osteomyelitis of third toe of right foot (HCC) 09/17/2019 Other and unspecified hyperlipidemia Paroxysmal atrial fibrillation (HCC) 10/07/2007 Personal history of contact with and (suspected) exposure to asbestos Type II or unspecified type diabetes mellitus without mention of complication, not stated as uncontrolled Unspecified essential hypertension Unspecified venous (peripheral) insufficiency PAST SURGICAL HISTORY Procedure Laterality Date ADENOIDECTOMY PRIMARY <AGE 12 [birth year] Adenoidectomy AMPUTATION TOE INTERPHALANGEAL JOINT Right 09/17/2019 2nd, 3rd toes, right foot AMPUTATION TOE,MT-P JT Left 08/19/2020 distal Symes 2nd & 3rd toe, Left CC CORONARY STENT 07/01/2020 left main, proximal to mild LAD CYSTOSCOPY 06/23/2014 LEFT HEART CATH,PERCUTANEOUS 10/07/2007 Cardiac cath, L heart LEFT HEART CATH,PERCUTANEOUS 12/29/2019 [facility] TONSILLECTOMY PRIMARY/SECONDARY <AGE 12 1957 Tonsillectomy TRANSCATH STENT INIT VESSEL,PERCUT 11/10/2007 Transcath stent init vessel percut, DILIA VASECTOMY UNI/BI SPX W/POSTOP SEMEN EXAMS 1977 SOCIAL HISTORY Social History Tobacco Use Smoking status: Never Smokeless tobacco: Current Types: Chew Vaping Use Vaping Use: Never used Substance Use Topics Alcohol use: Yes Comment: Rare Drug use: Never FAMILY HISTORY Problem Relation Age of Onset Heart Father Hypertension Mother Stroke Mother Lipids Mother Thyroid Sister Cancer Brother bladder and kidney ALLERGIES: ALLERGIES Allergen Reactions Altace [Ramipril] Intolerance Bactrim [Sulfametho* Hives Diovan [Valsartan] Metolazone Rash Propofol Other: See Comments agitation Ramipril Seasonal Allergies Other: See Comments Cqimaza-Vfg-Csu Red* Other: See Comments Muscle aches MEDICATIONS: spironolactone (ALDACTONE) 25 mg tablet Take 1 tablet by mouth once daily. doxazosin (CARDURA) 1 mg tablet TAKE ONE TABLET BY MOUTH EVERY DAY AT BEDTIME insulin degludec (TRESIBA FLEXTOUCH U-200) 200 unit/mL (3 mL) injection Inject 120 Units subcutaneously daily at bedtime. metoprolol tartrate, short acting, (LOPRESSOR) 50 mg tablet TAKE ONE TABLET BY MOUTH TWICE A DAY . MAY TAKE ADDITIONAL 25MG (1/2 TABLET) PER DAY FOR FAST HEART RATE DIRECTED clopidogrel (PLAVIX) 75 mg tablet TAKE ONE TABLET BY MOUTH EVERY DAY insulin aspart U-100 (NOVOLOG FLEXPEN U-100 INSULIN) 100 unit/mL (3 mL) Inject 25 units 3 times a day with meals PLUS Sliding scale as based on pre meal blood sugar as directed (~ 68 units daily) amLODIPine (NORVASC) 5 mg tablet Take 1 tablet by mouth once daily. furosemide (LASIX) 80 mg tablet TAKE ONE TABLET BY MOUTH TWICE A DAY nitroglycerin sublingual (NITROQUICK) 0.4 mg SL tablet Dissolve 1 tablet under the tongue every 5 minutes as needed for chest pain. IF NO PAIN RELIEF WITH 2ND DOSE, CALL 911 BIOTIN ORAL Take 1 tablet by mouth once daily. Fish Oil-Ensign-3 Fatty Acids (FISH OIL OMEGA 3-6-9) 300-1,000 mg CpDR Take 3000 mg daily. aspirin, enteric coated (ASPIRIN, ENTERIC COATED) 325 mg EC tablet Take 1 tablet by mouth once daily. MULTIVITAMIN TAB Take one(1) tablet daily. VITAMIN C 1,000 MG TAB Take one(1) tablet daily. metOLazone (ZAROXOLYN) 2.5 mg tablet Take 1 tablet by mouth once daily. (Patient not taking: Reported on 11/13/2021) blood sugar diagnostic (BLOOD GLUCOSE TEST) test strip Test blood sugar(s) 4-5 times daily Dx: Type 2 DM - Uncontrolled E11.65 Insulin: Yes pen needle, diabetic (UNIFINE PENTIPS PLUS) 33 gauge x 5/32 ndle Use with insulin four times daily. E11.40, Z79.4 Lancets (ONE TOUCH ULTRASOFT LANCETS) Misc lancets twice daily. Use as instructed ( may dispense Deuca brand) REVIEW OF SYSTEMS: Review of Systems Constitutional: Negative for chills, fever, malaise/fatigue and weight loss. HENT: Negative for hearing loss and sore throat. Eyes: Negative for blurred vision and double vision. Respiratory: Positive for shortness of breath. Cardiovascular: Positive for leg swelling. Negative for chest pain. Gastrointestinal: Negative. Genitourinary: Negative for dysuria, frequency, hematuria and urgency. Musculoskeletal: Negative. Skin: Negative. Neurological: Negative for dizziness, seizures, loss of consciousness, weakness and headaches. Endo/Heme/Allergies: Negative for environmental allergies. Does not bruise/bleed easily. Psychiatric/Behavioral: Negative for depression. PHYSICAL EXAMINATION: BP 118/68 (BP Site: Right Arm, BP Position: Sitting, BP Cuff Size: Large Adult) Pulse 91 Wt 134.7 kg (297 lb) SpO2 96% BMI 46.52 kg/m General: Obese gentleman sitting comfortable no apparent distress. He is alert and oriented x3. HEENT: Carotid upstrokes are brisk bilaterally. No JVD appreciated although examination difficult due to body habitus. Pulmonary: Lungs are clear no rales, wheezes, rhonchi Cardiovascular: Normal S1, S2 with regular rate and rhythm. No murmurs, rubs, or gallops Extremities: Warm, well-perfused. There is 1-2+ lower extremity pretibial edema. Dorsalis pedis posterior tibial pulses are diminished and difficult to palpate. Skin changes consistent with venous stasis. CARDIOVASCULAR MEDICINE TESTING: ECG in the office January 15, 2022: Atrial fibrillation with controlled ventricular response. Q waves noted in inferior leads. No other significant ST or T wave changes Percutaneous coronary intervention 07/01/20 Left Main: The ostial and proximal left main coronary artery was treated by placement of a 5.0 x 12 mm Synergy stent using intravascular ultrasound guidance. The stent was postdilated to 6 mm with a good angiographic result. Left Anterior Descending: The LAD was heavily calcified from the proximal to mid vessel. Lesions were pretreated with balloon angioplasty and cutting balloon angioplasty. Using intravascular ultrasound guidance a 3.0 by the 48 mm Synergy stent was deployed and postdilated to 4.2 mm proximally and 3.6 mm on the distal edge. The mid to distal and distal LAD have mild diffuse disease. Echocardiogram 12/10/2019 [place]: Technically difficult study Grossly normal LV function and size. Estimated ejection fraction 65%. The left atrium is severely enlarged. There is mild mitral annular calcification Trivial mitral valve insufficiency Trivial tricuspid valve insufficiency Mild aortic stenosis. Right ventricular systolic pressure estimated to be [address] Amaro 12/29/19: RCA: Flush ostial occlusion with severe calcification from the proximal to mid distal vessel. The distal vessel is collateralized from the left system. LM: Large caliber vessel. Ostial 50% stenosis. The mid to mid distal vessel has mild disease. LAD: Large caliber vessel with moderate to severe calcification in the proximal to mid vessel. The ostial to proximal vessel has mild diffuse disease. The vessel has an eccentric 80 to 90% stenosis. The mid to mid distal vessel has mild to moderate diffuse calcified disease. LCx: Large caliber vessel with a patent stent in mid distal AV groove circumflex. 2 obtuse marginal branches with mild to moderate diffuse disease. I have personally reviewed the Cardiac Catheterization/Percutaneous Coronary Intervention (PCI). IMPRESSION: Mr. Moya is a 71 year old morbidly obese gentleman with a history of coronary artery disease prior stenting of left circumflex and high risk coronary intervention with stents to the proximal to mid LAD and ostial to proximal left main coronary arteries July 01, 2020, hypertension, dyslipidemia, diabetes (insulin requiring), and chronic diastolic congestive heart failure who presents for routine follow-up. PLAN AND RECOMMENDATIONS: 1. 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 He is difficult to evaluate for symptoms due to chronic shortness of breath. No significant changes in functional capacity. Continue current medical therapy and risk factor modification 2. Persistent atrial fibrillation (HCC) - ICD9: 427.31, ICD10: I48.19 Heart rates adequately controlled on current regimen. Patient has refused consideration of anticoagulation therapy 3. Chronic diastolic congestive heart failure (HCC) - ICD9: 428.32, 428.0, ICD10: I50.32 Adequate with well-controlled on current regimen. Encourage patients to take his weight daily. Also discussed dietary restrictions. - FUROSEMIDE 80 MG TABLET 4. Essential hypertension - ICD9: 401.9, ICD10: I10 Well-controlled on current regimen 5. Other hyperlipidemia - ICD9: 272.4, ICD10: E78.49 Very difficult to control due to statin intolerance. 6. Statin intolerance - ICD9: 995.27, ICD10: Z78.9 7. Class 3 severe obesity due to excess calories with serious comorbidity and body mass index (BMI) of 45.0 to 49.9 in adult ([facility]) - ICD9: 278.01, V85.42, ICD10: E66.01, Z68.42 8. Dyspnea on exertion - ICD9: 786.09, ICD10: R06.09 9. Screening for ischemic heart disease - ICD9: V81.0, ICD10: Z13.6 - ECG COMPLETE Regulo Stover MD documented in this encounter [facility] 11-13-2021 History of Presen t illness Narrative Images from the original note were not included. This 70 year old male presents for painful calluses bilateral feet. SMBG's are better. no other pedal complaints PAIN EVALUATION 11/13/2021 0905 Pain Level: -- 3-10 Pain Location: -- bilateral foot Description: Sharp Duration Units: Years Frequency: Continuous PAST MEDICAL HISTORY Diagnosis Date Acute kidney injury (DANIELA) with acute tubular necrosis (ATN) ([facility]) 11/06/2019 CAD (coronary artery disease) 10/07/2007 70% stenosis circumflex 2nd marginal branch. Drug eluting stent done. Diabetic ulcer of toe of left foot associated with type 2 diabetes mellitus ([facility]) 06/21/2020 Esophageal reflux Generalized osteoarthrosis, unspecified site Nephrolithiasis 10/17/2016 NEUROPATHY IN DIABETES 01/30/2006 Nonspecific abnormal results of liver function study Obesity, unspecified JAMES (obstructive sleep apnea) 08/13/2013 declined tx Osteomyelitis of second toe of right foot ([facility] 09/17/2019 Osteomyelitis of third toe of right foot ([facility]) 09/17/2019 Other and unspecified hyperlipidemia Paroxysmal atrial fibrillation ([facility]) 10/07/2007 Personal history of contact with and (suspected) exposure to asbestos Type II or unspecified type diabetes mellitus without mention of complication, not stated as uncontrolled Unspecified essential hypertension Unspecified venous (peripheral) insufficiency Current Outpatient Medications Medication Sig doxazosin (CARDURA) 1 mg tablet TAKE ONE TABLET BY MOUTH EVERY DAY AT BEDTIME insulin degludec (TRESIBA FLEXTOUCH U-200) 200 unit/mL (3 mL) injection Inject 120 Units subcutaneously daily at bedtime. blood sugar diagnostic (BLOOD GLUCOSE TEST) test strip Test blood sugar(s) 4-5 times daily Dx: Type 2 DM - Uncontrolled E11.65 Insulin: Yes metoprolol tartrate, short acting, (LOPRESSOR) 50 mg tablet TAKE ONE TABLET BY MOUTH TWICE A DAY . MAY TAKE ADDITIONAL 25MG (1/2 TABLET) PER DAY FOR FAST HEART RATE DIRECTED clopidogrel (PLAVIX) 75 mg tablet TAKE ONE TABLET BY MOUTH EVERY DAY insulin aspart U-100 (NOVOLOG FLEXPEN U-100 INSULIN) 100 unit/mL (3 mL) Inject 25 units 3 times a day with meals PLUS Sliding scale as based on pre meal blood sugar as directed (~ 68 units daily) amLODIPine (NORVASC) 5 mg tablet Take 1 tablet by mouth once daily. furosemide (LASIX) 80 mg tablet TAKE ONE TABLET BY MOUTH TWICE A DAY nitroglycerin sublingual (NITROQUICK) 0.4 mg SL tablet Dissolve 1 tablet under the tongue every 5 minutes as needed for chest pain. IF NO PAIN RELIEF WITH 2ND DOSE, CALL 911 pen needle, diabetic (UNIFINE PENTIPS PLUS) 33 gauge x 5/32 ndle Use with insulin four times daily. E11.40, Z79.4 spironolactone (ALDACTONE) 25 mg tablet Take 1 tablet by mouth once daily. BIOTIN ORAL Take 1 tablet by mouth once daily. Fish Oil-Ensign-3 Fatty Acids (FISH OIL OMEGA 3-6-9) 300-1,000 mg CpDR Take 3000 mg daily. Lancets (ONE TOUCH ULTRASOFT LANCETS) Misc lancets twice daily. Use as instructed ( may dispense Deuca brand) aspirin, enteric coated (ASPIRIN, ENTERIC COATED) 325 mg EC tablet Take 1 tablet by mouth once daily. MULTIVITAMIN TAB Take one(1) tablet daily. VITAMIN C 1,000 MG TAB Take one(1) tablet daily. metOLazone (ZAROXOLYN) 2.5 mg tablet Take 1 tablet by mouth once daily. (Patient not taking: Reported on 11/13/2021) No current facility-administered medications for this visit. ALLERGIES Allergen Reactions Altace [Ramipril] Intolerance Bactrim [Sulfametho* Hives Diovan [Valsartan] Propofol Other: See Comments agitation Ramipril Seasonal Allergies Other: See Comments Imqfttj-Dkg-Tse Red* Other: See Comments Muscle aches OBJECTIVE: Patient presents WB with regular shoe gear Neurovascular status is grossly unchanged. Absent vibratory sensation at the hallux IPJ. Intact protective sensation hyperkeratotic tissue noted subfifth MTP joint left. Hyperkeratotic tissue also noted to the medial aspect of the left distal hallux. Minimal HKT noted right hallux HgA1C 6.5% Assessment: B/L callosities (3 total) Better controlled type 2 diabetes with multiple tylomas PLAN: Treatment today consisted of -Exam -Debrided calluses x 3 Continue follow up with endo Continue with diabetic shoes Follow-up in 3 months or sooner prn Arabella Heredia DPM documented in this encounter [facility] 10-18-2021 Miscellaneous Notes Patient's request for medication is as follows: Pending Prescriptions Disp Refills DOXAZOSIN 1 MG TABLET 90 tablet 3 Sig: TAKE ONE TABLET BY MOUTH EVERY DAY AT BEDTIME TINA: Yes Last seen 02/27/2021. Next visit 01/15/2022. Prescription(s) as above. Please process accordingly. Ivy Morse LPN documented in this encounter [facility] 10-17-2021 Miscellaneous Notes Mailed original and copied for scan documents. (Jessica) calls in to request that original [facility] paperwork be mailed to home address at: [id number] [phone]. Carlene Goldberg RN Faxed to number on the [employer] card that was sent with the form. Fax number is [phone]. Message left to pts spouse. This will be in pts medical records in scanned documents. Done. Pt's spouse brought in [facility] for pts son to be completed. He transports pt to [facility] out of town when needed. This has bee completed previously 09/22/2020. documented in this encounter [facility] 10-11-2021 Miscellaneous Notes Received form [facility] request for Akil Gore, copied last OV and placed in providers in box for review and signature. Once signed will fax to them. Nhung Bradley MA documented in this encounter [facility] 09-08-2021 History of Presen t illness Narrative This note was created using [employer]riter. Subjective Miguelangel Moya is a 71 year old male. Tresiba was up titrated a few weeks ago due to glucose elevation and this past week's readings were better. He felt well, and was here to discuss his lab results. Lipids were still elevated, and pravastatin was again not tolerated due to constipation. Review of Systems Constitutional: Negative. Respiratory: Negative. Cardiovascular: Negative. Gastrointestinal: Negative. Neurological: Negative. ACTIVE PROBLEM LIST Generalized Osteoarthrosis, Unspecified Site Esophageal Reflux Venous (Peripheral) Insufficiency Type 2 Diabetes Mellitus With Diabetic Neuropathy, With Long-Term Current Use of Insulin ([facility]) Class 3 Severe Obesity With Body Mass Index (Bmi) of 45.0 to 49.9 in Adult ([facility]) Other Hyperlipidemia Essential Hypertension Coronary Artery Disease of [place] Artery of [place] Heart With Stable Angina Pectoris ([facility]) Persistent Atrial Fibrillation ([facility]) Memory Disturbance Bph (Benign Prostatic Hyperplasia) 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 metoprolol tartrate, short acting, (LOPRESSOR) 50 mg tablet TAKE ONE TABLET BY MOUTH TWICE A DAY . MAY TAKE ADDITIONAL 25MG (1/2 TABLET) PER DAY FOR FAST HEART RATE DIRECTED clopidogrel (PLAVIX) 75 mg tablet TAKE ONE TABLET BY MOUTH EVERY DAY insulin aspart U-100 (NOVOLOG FLEXPEN U-100 INSULIN) 100 unit/mL (3 mL) Inject 25 units 3 times a day with meals PLUS Sliding scale as based on pre meal blood sugar as directed (~ 68 units daily) insulin degludec (TRESIBA FLEXTOUCH U-200) 200 unit/mL (3 mL) injection Inject 105 Units subcutaneously daily at bedtime. amLODIPine (NORVASC) 5 mg tablet Take 1 tablet by mouth once daily. pravastatin (PRAVACHOL) 20 mg tablet Take 1 tablet by mouth daily at bedtime. furosemide (LASIX) 80 mg tablet TAKE ONE TABLET BY MOUTH TWICE A DAY nitroglycerin sublingual (NITROQUICK) 0.4 mg SL tablet Dissolve 1 tablet under the tongue every 5 minutes as needed for chest pain. IF NO PAIN RELIEF WITH 2ND DOSE, CALL 911 pen needle, diabetic (UNIFINE PENTIPS PLUS) 33 gauge x 5/32 ndle Use with insulin four times daily. E11.40, Z79.4 spironolactone (ALDACTONE) 25 mg tablet Take 1 tablet by mouth once daily. doxazosin (CARDURA) 1 mg tablet Take 1 tablet by mouth daily at bedtime. BIOTIN ORAL Take 1 tablet by mouth once daily. blood sugar diagnostic (ONE TOUCH ULTRA TEST) test strip TEST BLOOD SUGAR 2 TIMES PER DAY. DX: 250.00. INSULIN DEP: NO. (Patient taking differently: TEST BLOOD SUGAR 2 TIMES PER DAY. DX: 250.00. INSULIN DEP: NO. Patient testing blood sugar(s) 4-5x daily ) Fish Oil-Ensign-3 Fatty Acids (FISH OIL OMEGA 3-6-9) 300-1,000 mg CpDR Take 3000 mg daily. Lancets (ONE TOUCH ULTRASOFT LANCETS) Misc lancets twice daily. Use as instructed ( may dispense Deuca brand) aspirin, enteric coated (ECOTRIN) 325 mg ORAL EC tablet Take 1 tablet by mouth once daily. MULTIVITAMIN TAB Take one(1) tablet daily. VITAMIN C 1,000 MG TAB Take one(1) tablet daily. No current facility-administered medications for this visit. Objective BP 110/68 (BP Site: Left Arm, BP Position: Sitting) Pulse 79 Temp (!) 35.6 C (96.1 F) Resp 18 Ht 170.2 cm (5' 7 ) Wt 135.6 kg (299 lb) SpO2 96% BMI 46.83 kg/m Physical Exam Constitutional: Appearance: He is not ill-appearing. Cardiovascular: Rate and Rhythm: Normal rate and regular rhythm. Heart sounds: No murmur heard. No gallop. Pulmonary: Breath sounds: Normal breath sounds. Musculoskeletal: Right lower leg: No edema. Left lower leg: No edema. Neurological: General: No focal deficit present. Mental Status: He is alert. Test results pertinent to today's visit were reviewed and discussed with the patient. Glucose meter data or log was reviewed for the past month. Range: 95-214. Average: n/a. Patient was testing TID to QID. Higher frequency of testing needed: yes. Reason: medication adjustment, uncontrolled DM, labile blood sugars. . Assessment and Plan 1. Type 2 diabetes mellitus with diabetic neuropathy, with long-term current use of insulin (HCC) - ICD9: 250.60, 357.2, V58.67, ICD10: E11.40, Z79.4 (primary diagnosis) improved control - Continue current medications - BLOOD GLUCOSE TEST STRIPS - BASIC METABOLIC PNL - HGB A1C 2. Essential hypertension - ICD9: 401.9, ICD10: I10 - fair control 3. Chronic diastolic congestive heart failure (HCC) - ICD9: 428.32, 428.0, ICD10: I50.32 Stable. - METOLAZONE 2.5 MG TABLET 4. Coronary artery disease of [place] artery of [place] heart with stable angina pectoris (HCC) - ICD9: 414.01, 413.9, ICD10: I25.118 Stable. 5. Persistent atrial fibrillation (HCC) - ICD9: 427.31, ICD10: I48.19 Stable. 6. Need for vaccination - ICD9: V05.9, ICD10: Z23 - PNEUMOCOCCAL VACCINE (PREVNAR 20) Krishna Reynolds MD documented in this encounter [facility] 08-07-2021 Miscellaneous Notes Patient's pharmacy requesting new refill. Pending Prescriptions Disp Refills CLOPIDOGREL 75 MG TABLET 90 tablet 3 Sig: TAKE ONE TABLET BY MOUTH EVERY DAY TINA: Yes He will see Dr Stover on 01-15-2022. Talya Juarez LPN documented in this encounter [facility] 08-07-2021 Miscellaneous Notes Patient's pharmacy requesting new refill. Pending Prescriptions Disp Refills METOPROLOL TARTRATE 50 MG TABLET 200 tablet 3 Sig: TAKE ONE TABLET BY MOUTH TWICE A DAY . MAY TAKE ADDITIONAL 25MG (1/2 TABLET) PER DAY FOR FAST HEART RATE DIRECTED TINA: Yes He will see Dr Stover on 01-13-2022. Talya Juarez LPN documented in this encounter [facility] 07-20-2021 Miscellaneous Notes Patient has been identified by name and date of : Yes Spouse phones for refill(s): Pending Prescriptions Disp Refills INSULIN ASPART (U-100) 100 UNIT/ML (3 ML) SUBCUTANEOUS PEN 25 Pen 3 Sig: Inject 25 units 3 times a day with meals PLUS Sliding scale as based on pre meal blood sugar as directed (~ 68 units daily) TINA: No Date of last office visit in primary care: 05/26/2021, has appt 09/03/2021 Last 2 Encounter Wt Readings: Date: Wt: 05/26/2021 132.9 kg (293 lb) 04/06/2021 133.8 kg (295 lb) Previous labs/tests for medication: Diabetes: Hemoglobin A1C (%) Date Value 11/26/2020 9.1 08/15/2020 8.6 Please advise. Thank you. Elsa Marin LPN Patient dose changed and needs new rx sent to pharmacy. documented in this encounter [facility] 07-10-2021 Miscellaneous Notes Spoke with Marcia and information listed below given. Josefina Qureshi LPN Dose is correct and was being titrated up. Marcia with [facility] calls and states she is calling to clarify the dose on Tresiba to inject 105 units SQ daily at bedtime. Large increase from last refill. Please advise. Josefina Qureshi LPN documented in this encounter [facility] 07-10-2021 Miscellaneous Notes Insulin doses updated. Patient's request for medication is as follows Signed Prescriptions Disp Refills insulin degludec (TRESIBA FLEXTOUCH U-200) 200 unit/mL (3 mL) injection 20 Pen 3 Sig: Inject 105 Units subcutaneously daily at bedtime. TINA: No Authorizing Provider: KRISHNA REYNOLDS insulin aspart U-100 (NOVOLOG FLEXPEN U-100 INSULIN) 100 unit/mL (3 mL) 25 Pen 3 Sig: Inject 25 units 3 times a day with meals PLUS Sliding scale as based on pre meal blood sugar as directed (~ 68 units daily) TINA: No Authorizing Provider: KRISHNA REYNOLDS MD documented in this encounter [facility] documented as of this encounter (statuses as of 07/10/2021) [facility] History of Past illness Narrative* Problem Noted Date Resolved Date Venous stasis ulcer of right calf limited to breakdown of skin without varicose veins 10/06/2020 11/30/[address] percutaneous transluminal coronary angioplasty (PTCA) 07/02/2020 07/02/2020 Diabetic ulcer of toe of lef t foot associated with type 2 diabetes mellitus 06/21/2020 10/06/2020 Acute kidney injury (DANIELA) with acute tubular nec rosis (ATN) 11/06/2019 06/21/2020 Osteomyelitis of second toe of right foot 201906/21/2020 Osteomyelitis of third toe of right foot 020 06/21/2020 Skin ulcer of toe of right f oot, limited to breakdown of skin 04/24/2018 07/24/2018 Nephrolithiasis 10/17/2016 04/24/2018 Hematuria 05/31/2014 08/19/2014 Chronic anticoagulation 05/31/2014 08/20/19 15 History of smoking 05/31/2014 08/19/2014 JAMES (obstructive sleep apnea) 08/13/2013 Diabetic polyneuropathy 01/30/2006 04/24/19 19 Personal history of contact with and (suspected) exposure to asbestos 08/19/2014 Nonspecific abnormal results of liver function s tudy 08/19/2014 documented as of this encounter (statuses as of 07/10/2021) [facility] History of Past illness Narrative* Problem Noted Date Resolved Date Venous stasis ulcer of right calf limited to breakdown of skin without varicose veins 10/06/2020 11/30/[address] percutaneous transluminal coronary angioplasty (PTCA) 07/02/2020 07/02/2020 Diabetic ulcer of toe of lef t foot associated with type 2 diabetes mellitus 06/21/2020 10/06/2020 Acute kidney injury (DANIELA) with acute tubular nec rosis (ATN) 11/06/2019 06/21/2020 Osteomyelitis of second toe of right foot 201906/21/2020 Osteomyelitis of third toe of right foot 020 06/21/2020 Skin ulcer of toe of right f oot, limited to breakdown of skin 04/24/2018 07/24/2018 Nephrolithiasis 10/17/2016 04/24/2018 Hematuria 05/31/2014 08/19/2014 Chronic anticoagulation 05/31/2014 08/20/19 15 History of smoking 05/31/2014 08/19/2014 JAMES (obstructive sleep apnea) 08/13/2013 Diabetic polyneuropathy 01/30/2006 04/24/19 19 Personal history of contact with and (suspected) exposure to asbestos 08/19/2014 Nonspecific abnormal results of liver function s tudy 08/19/2014 documented as of this encounter (statuses as of 07/21/2021) [facility] History of Past illness Narrative* Problem Noted Date Resolved Date Venous stasis ulcer of right calf limited to breakdown of skin without varicose veins 10/06/2020 11/30/[address] percutaneous transluminal coronary angioplasty (PTCA) 07/02/2020 07/02/2020 Diabetic ulcer of toe of lef t foot associated with type 2 diabetes mellitus 06/21/2020 10/06/2020 Acute kidney injury (DANIELA) with acute tubular nec rosis (ATN) 11/06/2019 06/21/2020 Osteomyelitis of second toe of right foot 201906/21/2020 Osteomyelitis of third toe of right foot 020 06/21/2020 Skin ulcer of toe of right f oot, limited to breakdown of skin 04/24/2018 07/24/2018 Nephrolithiasis 10/17/2016 04/24/2018 Hematuria 05/31/2014 08/19/2014 Chronic anticoagulation 05/31/2014 08/20/19 15 History of smoking 05/31/2014 08/19/2014 JAMES (obstructive sleep apnea) 08/13/2013 Diabetic polyneuropathy 01/30/2006 04/24/19 19 Personal history of contact with and (suspected) exposure to asbestos 08/19/2014 Nonspecific abnormal results of liver function s dy 08/19/2014 documented as of this encounter (statuses as of 08/07/2021) [facility] History of Past illness Narrative* Problem Noted Date Resolved Date Venous stasis ulcer of right calf limited to breakdown of skin without varicose veins 10/06/2020 11/30/[address] percutaneous transluminal coronary angioplasty (PTCA) 07/02/2020 07/02/2020 Diabetic ulcer of toe of lef t foot associated with type 2 diabetes mellitus 06/21/2020 10/06/2020 Acute kidney injury (DANIELA) with acute tubular nec rosis (ATN) 11/06/2019 06/21/2020 Osteomyelitis of second toe of right foot 201906/21/2020 Osteomyelitis of third toe of right foot 020 06/21/2020 Skin ulcer of toe of right f oot, limited to breakdown of skin 04/24/2018 07/24/2018 Nephrolithiasis 10/17/2016 04/24/2018 Hematuria 05/31/2014 08/19/2014 Chronic anticoagulation 05/31/2014 08/20/19 15 History of smoking 05/31/2014 08/19/2014 JAMES (obstructive sleep apnea) 08/13/2013 Diabetic polyneuropathy 01/30/2006 04/24/19 19 Personal history of contact with and (suspected) exposure to asbestos 08/19/2014 Nonspecific abnormal results of liver function s markus 08/19/2014 documented as of this encounter (statuses as of 08/07/2021) [facility] History of Past illness Narrative* Problem Noted Date Resolved Date Venous stasis ulcer of right calf limited to breakdown of skin without varicose veins 10/06/2020 11/30/[address] percutaneous transluminal coronary angioplasty (PTCA) 07/02/2020 07/02/2020 Diabetic ulcer of toe of lef t foot associated with type 2 diabetes mellitus 06/21/2020 10/06/2020 Acute kidney injury (DANIELA) with acute tubular nec rosis (ATN) 11/06/2019 06/21/2020 Osteomyelitis of second toe of right foot 201906/21/2020 Osteomyelitis of third toe of right foot 020 06/21/2020 Skin ulcer of toe of right f oot, limited to breakdown of skin 04/24/2018 07/24/2018 Nephrolithiasis 10/17/2016 04/24/2018 Hematuria 05/31/2014 08/19/2014 Chronic anticoagulation 05/31/2014 08/20/19 15 History of smoking 05/31/2014 08/19/2014 JMAES (obstructive sleep apnea) 08/13/2013 Diabetic polyneuropathy 01/30/2006 04/24/19 19 Personal history of contact with and (suspected) exposure to asbestos 08/19/2014 Nonspecific abnormal results of liver function s artur 08/19/2014 documented as of this encounter (statuses as of 09/09/2021) [facility] History of Past illness Narrative* Problem Noted Date Resolved Date Venous stasis ulcer of right calf limited to breakdown of skin without varicose veins 10/06/2020 11/30/[address] percutaneous transluminal coronary angioplasty (PTCA) 07/02/2020 07/02/2020 Diabetic ulcer of toe of lef t foot associated with type 2 diabetes mellitus 06/21/2020 10/06/2020 Acute kidney injury (DANIELA) with acute tubular nec rosis (ATN) 11/06/2019 06/21/2020 Osteomyelitis of second toe of right foot 201906/21/2020 Osteomyelitis of third toe of right foot 020 06/21/2020 Skin ulcer of toe of right f oot, limited to breakdown of skin 04/24/2018 07/24/2018 Nephrolithiasis 10/17/2016 04/24/2018 Hematuria 05/31/2014 08/19/2014 Chronic anticoagulation 05/31/2014 08/20/19 15 History of smoking 05/31/2014 08/19/2014 JAMES (obstructive sleep apnea) 08/13/2013 Diabetic polyneuropathy 01/30/2006 04/24/19 19 Personal history of contact with and (suspected) exposure to asbestos 08/19/2014 Nonspecific abnormal results of liver function s artur 08/19/2014 documented as of this encounter (statuses as of 10/11/2021) [facility] History of Past illness Narrative* Problem Noted Date Resolved Date Venous stasis ulcer of right calf limited to breakdown of skin without varicose veins 10/06/2020 11/30/[address] percutaneous transluminal coronary angioplasty (PTCA) 07/02/2020 07/02/2020 Diabetic ulcer of toe of lef t foot associated with type 2 diabetes mellitus 06/21/2020 10/06/2020 Acute kidney injury (DANIELA) with acute tubular nec rosis (ATN) 11/06/2019 06/21/2020 Osteomyelitis of second toe of right foot 201906/21/2020 Osteomyelitis of third toe of right foot 020 06/21/2020 Skin ulcer of toe of right f oot, limited to breakdown of skin 04/24/2018 07/24/2018 Nephrolithiasis 10/17/2016 04/24/2018 Hematuria 05/31/2014 08/19/2014 Chronic anticoagulation 05/31/2014 08/20/19 15 History of smoking 05/31/2014 08/19/2014 JAMES (obstructive sleep apnea) 08/13/2013 Diabetic polyneuropathy 01/30/2006 04/24/19 19 Personal history of contact with and (suspected) exposure to asbestos 08/19/2014 Nonspecific abnormal results of liver function s markus 08/19/2014 documented as of this encounter (statuses as of 10/17/2021) [facility] of Past illness Narrative* Problem Noted Date Resolved Date Venous stasis ulcer of right calf limited to breakdown of skin without varicose veins 10/06/2020 11/30/[address] percutaneous transluminal coronary angioplasty (PTCA) 07/02/2020 07/02/2020 Diabetic ulcer of toe of lef t foot associated with type 2 diabetes mellitus 06/21/2020 10/06/2020 Acute kidney injury (DANIELA) with acute tubular nec rosis (ATN) 11/06/2019 06/21/2020 Osteomyelitis of second toe of right foot 201906/21/2020 Osteomyelitis of third toe of right foot 020 06/21/2020 Skin ulcer of toe of right f oot, limited to breakdown of skin 04/24/2018 07/24/2018 Nephrolithiasis 10/17/2016 04/24/2018 Hematuria 05/31/2014 08/19/2014 Chronic anticoagulation 05/31/2014 08/20/19 15 History of smoking 05/31/2014 08/19/2014 JAMES (obstructive sleep apnea) 08/13/2013 Diabetic polyneuropathy 01/30/2006 04/24/19 19 Personal history of contact with and (suspected) exposure to asbestos 08/19/2014 Nonspecific abnormal results of liver function s tudy 08/19/2014 documented as of this encounter (statuses as of 10/18/2021) [facility] of Past illness Narrative* Problem Noted Date Resolved Date Venous stasis ulcer of right calf limited to breakdown of skin without varicose veins 10/06/2020 11/30/[address] percutaneous transluminal coronary angioplasty (PTCA) 07/02/2020 07/02/2020 Diabetic ulcer of toe of lef t foot associated with type 2 diabetes mellitus 06/21/2020 10/06/2020 Acute kidney injury (DANIELA) with acute tubular nec rosis (ATN) 11/06/2019 06/21/2020 Osteomyelitis of second toe of right foot 201906/21/2020 Osteomyelitis of third toe of right foot 020 06/21/2020 Skin ulcer of toe of right f oot, limited to breakdown of skin 04/24/2018 07/24/2018 Nephrolithiasis 10/17/2016 04/24/2018 Hematuria 05/31/2014 08/19/2014 Chronic anticoagulation 05/31/2014 08/20/19 15 History of smoking 05/31/2014 08/19/2014 JAMES (obstructive sleep apnea) 08/13/2013 Diabetic polyneuropathy 01/30/2006 04/24/19 19 Personal history of contact with and (suspected) exposure to asbestos 08/19/2014 Nonspecific abnormal results of liver function s artur 08/19/2014 documented as of this encounter (statuses as of 11/13/2021) [facility] History of Past illness Narrative* Problem Noted Date Resolved Date Venous stasis ulcer of right calf limited to breakdown of skin without varicose veins 10/06/2020 11/30/[address] percutaneous transluminal coronary angioplasty (PTCA) 07/02/2020 07/02/2020 Diabetic ulcer of toe of lef t foot associated with type 2 diabetes mellitus 06/21/2020 10/06/2020 Acute kidney injury (DANIELA) with acute tubular nec rosis (ATN) 11/06/2019 06/21/2020 Osteomyelitis of second toe of right foot 201906/21/2020 Osteomyelitis of third toe of right foot 020 06/21/2020 Skin ulcer of toe of right f oot, limited to breakdown of skin 04/24/2018 07/24/2018 Nephrolithiasis 10/17/2016 04/24/2018 Hematuria 05/31/2014 08/19/2014 Chronic anticoagulation 05/31/2014 08/20/19 15 History of smoking 05/31/2014 08/19/2014 JAMES (obstructive sleep apnea) 08/13/2013 Diabetic polyneuropathy 01/30/2006 04/24/19 19 Personal history of contact with and (suspected) exposure to asbestos 08/19/2014 Nonspecific abnormal results of liver function s markus 08/19/2014 documented as of this encounter (statuses as of 01/15/2022) [facility]21 History of Past illness Narrative* Problem Noted Date Resolved Date Venous stasis ulcer of right calf limited to breakdown of skin without varicose veins 10/06/2020 11/30/[address] percutaneous transluminal coronary angioplasty (PTCA) 07/02/2020 07/02/2020 Diabetic ulcer of toe of lef t foot associated with type 2 diabetes mellitus 06/21/2020 10/06/2020 Acute kidney injury (DANIELA) with acute tubular nec rosis (ATN) 11/06/2019 06/21/2020 Osteomyelitis of second toe of right foot 201906/21/2020 Osteomyelitis of third toe of right foot 020 06/21/2020 Skin ulcer of toe of right f oot, limited to breakdown of skin 04/24/2018 07/24/2018 Nephrolithiasis 10/17/2016 04/24/2018 Hematuria 05/31/2014 08/19/2014 Chronic anticoagulation 05/31/2014 08/20/19 15 History of smoking 05/31/2014 08/19/2014 JAMES (obstructive sleep apnea) 08/13/2013 Diabetic polyneuropathy 01/30/2006 04/24/19 19 Personal history of contact with and (suspected) exposure to asbestos 08/19/2014 Nonspecific abnormal results of liver function s artur 08/19/2014 documented as of this encounter (statuses as of 01/25/2022) [facility] History of Past illness Narrative* Problem Noted Date Resolved Date Venous stasis ulcer of right calf limited to breakdown of skin without varicose veins 10/06/2020 11/30/[address] percutaneous transluminal coronary angioplasty (PTCA) 07/02/2020 07/02/2020 Diabetic ulcer of toe of lef t foot associated with type 2 diabetes mellitus 06/21/2020 10/06/2020 Acute kidney injury (DANIELA) with acute tubular nec rosis (ATN) 11/06/2019 06/21/2020 Osteomyelitis of second toe of right foot 201906/21/2020 Osteomyelitis of third toe of right foot 020 06/21/2020 Skin ulcer of toe of right f oot, limited to breakdown of skin 04/24/2018 07/24/2018 Nephrolithiasis 10/17/2016 04/24/2018 Hematuria 05/31/2014 08/19/2014 Chronic anticoagulation 05/31/2014 08/20/19 15 History of smoking 05/31/2014 08/19/2014 JAMES (obstructive sleep apnea) 08/13/2013 Diabetic polyneuropathy 01/30/2006 04/24/19 19 Personal history of contact with and (suspected) exposure to asbestos 08/19/2014 Nonspecific abnormal results of liver function s artur 08/19/2014 documented as of this encounter (statuses as of 01/26/2022) [facility] History of Past illness Narrative* Problem Noted Date Resolved Date Venous stasis ulcer of right calf limited to breakdown of skin without varicose veins 10/06/2020 11/30/[address] percutaneous transluminal coronary angioplasty (PTCA) 07/02/2020 07/02/2020 Diabetic ulcer of toe of lef t foot associated with type 2 diabetes mellitus 06/21/2020 10/06/2020 Acute kidney injury (DANIELA) with acute tubular nec rosis (ATN) 11/06/2019 06/21/2020 Osteomyelitis of second toe of right foot 201906/21/2020 Osteomyelitis of third toe of right foot 020 06/21/2020 Skin ulcer of toe of right f oot, limited to breakdown of skin 04/24/2018 07/24/2018 Nephrolithiasis 10/17/2016 04/24/2018 Hematuria 05/31/2014 08/19/2014 Chronic anticoagulation 05/31/2014 08/20/19 15 History of smoking 05/31/2014 08/19/2014 JAMES (obstructive sleep apnea) 08/13/2013 Diabetic polyneuropathy 01/30/2006 04/24/19 19 Personal history of contact with and (suspected) exposure to asbestos 08/19/2014 Nonspecific abnormal results of liver function s tudy 08/19/2014 documented as of this encounter (statuses as of 01/29/2022) [facility] History of Past illness Narrative* Problem Noted Date Resolved Date Venous stasis ulcer of right calf limited to breakdown of skin without varicose veins 10/06/2020 11/30/[address] percutaneous transluminal coronary angioplasty (PTCA) 07/02/2020 07/02/2020 Diabetic ulcer of toe of lef t foot associated with type 2 diabetes mellitus 06/21/2020 10/06/2020 Acute kidney injury (DANIELA) with acute tubular nec rosis (ATN) 11/06/2019 06/21/2020 Osteomyelitis of second toe of right foot 201906/21/2020 Osteomyelitis of third toe of right foot 020 06/21/2020 Skin ulcer of toe of right f oot, limited to breakdown of skin 04/24/2018 07/24/2018 Nephrolithiasis 10/17/2016 04/24/2018 Hematuria 05/31/2014 08/19/2014 Chronic anticoagulation 05/31/2014 08/20/19 15 History of smoking 05/31/2014 08/19/2014 JAMES (obstructive sleep apnea) 08/13/2013 Diabetic polyneuropathy 01/30/2006 04/24/19 19 Personal history of contact with and (suspected) exposure to asbestos 08/19/2014 Nonspecific abnormal results of liver function s markus 08/19/2014 documented as of this encounter (statuses as of 02/06/2022) [facility] History of Past illness Narrative* Problem Noted Date Resolved Date Venous stasis ulcer of right calf limited to breakdown of skin without varicose veins 10/06/2020 11/30/[address] percutaneous transluminal coronary angioplasty (PTCA) 07/02/2020 07/02/2020 Diabetic ulcer of toe of lef t foot associated with type 2 diabetes mellitus 06/21/2020 10/06/2020 Acute kidney injury (DANIELA) with acute tubular nec rosis (ATN) 11/06/2019 06/21/2020 Osteomyelitis of second toe of right foot 201906/21/2020 Osteomyelitis of third toe of right foot 020 06/21/2020 Skin ulcer of toe of right f oot, limited to breakdown of skin 04/24/2018 07/24/2018 Nephrolithiasis 10/17/2016 04/24/2018 Hematuria 05/31/2014 08/19/2014 Chronic anticoagulation 05/31/2014 08/20/19 15 History of smoking 05/31/2014 08/19/2014 JAMES (obstructive sleep apnea) 08/13/2013 Diabetic polyneuropathy 01/30/2006 04/24/19 19 Personal history of contact with and (suspected) exposure to asbestos 08/19/2014 Nonspecific abnormal results of liver function s markus 08/19/2014 documented as of this encounter (statuses as of 03/16/2022) [facility] History of Past illness Narrative* Problem Noted Date Resolved Date Venous stasis ulcer of right calf limited to breakdown of skin without varicose veins 10/06/2020 11/30/[address] percutaneous transluminal coronary angioplasty (PTCA) 07/02/2020 07/02/2020 Diabetic ulcer of toe of lef t foot associated with type 2 diabetes mellitus 06/21/2020 10/06/2020 Acute kidney injury (DANIELA) with acute tubular nec rosis (ATN) 11/06/2019 06/21/2020 Osteomyelitis of second toe of right foot 201906/21/2020 Osteomyelitis of third toe of right foot 020 06/21/2020 Skin ulcer of toe of right f oot, limited to breakdown of skin 04/24/2018 07/24/2018 Nephrolithiasis 10/17/2016 04/24/2018 Hematuria 05/31/2014 08/19/2014 Chronic anticoagulation 05/31/2014 08/20/19 15 History of smoking 05/31/2014 08/19/2014 JAMES (obstructive sleep apnea) 08/13/2013 Diabetic polyneuropathy 01/30/2006 04/24/19 19 Personal history of contact with and (suspected) exposure to asbestos 08/19/2014 Nonspecific abnormal results of liver function s artur 08/19/2014 documented as of this encounter (statuses as of 04/10/2022) [facility] History of Past illness Narrative* Problem Noted Date Resolved Date Venous stasis ulcer of right calf limited to breakdown of skin without varicose veins 10/06/2020 11/30/[address] percutaneous transluminal coronary angioplasty (PTCA) 07/02/2020 07/02/2020 Diabetic ulcer of toe of lef t foot associated with type 2 diabetes mellitus 06/21/2020 10/06/2020 Acute kidney injury (DANIELA) with acute tubular nec rosis (ATN) 11/06/2019 06/21/2020 Osteomyelitis of second toe of right foot 201906/21/2020 Osteomyelitis of third toe of right foot 020 06/21/2020 Skin ulcer of toe of right f oot, limited to breakdown of skin 04/24/2018 07/24/2018 Nephrolithiasis 10/17/2016 04/24/2018 Hematuria 05/31/2014 08/19/2014 Chronic anticoagulation 05/31/2014 08/20/19 15 History of smoking 05/31/2014 08/19/2014 JAMES (obstructive sleep apnea) 08/13/2013 Diabetic polyneuropathy 01/30/2006 04/24/19 19 Personal history of contact with and (suspected) exposure to asbestos 08/19/2014 Nonspecific abnormal results of liver function s markus 08/19/2014 documented as of this encounter (statuses as of 06/01/2022) [facility] History of Past illness Narrative* Problem Noted Date Resolved Date Venous stasis ulcer of right calf limited to breakdown of skin without varicose veins 10/06/2020 11/30/[address] percutaneous transluminal coronary angioplasty (PTCA) 07/02/2020 07/02/2020 Diabetic ulcer of toe of lef t foot associated with type 2 diabetes mellitus 06/21/2020 10/06/2020 Acute kidney injury (DANIELA) with acute tubular nec rosis (ATN) 11/06/2019 06/21/2020 Osteomyelitis of second toe of right foot 201906/21/2020 Osteomyelitis of third toe of right foot 020 06/21/2020 Skin ulcer of toe of right f oot, limited to breakdown of skin 04/24/2018 07/24/2018 Nephrolithiasis 10/17/2016 04/24/2018 Hematuria 05/31/2014 08/19/2014 Chronic anticoagulation 05/31/2014 08/20/19 15 History of smoking 05/31/2014 08/19/2014 JAMES (obstructive sleep apnea) 08/13/2013 Diabetic polyneuropathy 01/30/2006 04/24/19 19 Personal history of contact with and (suspected) exposure to asbestos 08/19/2014 Nonspecific abnormal results of liver function s markus 08/19/2014 documented as of this encounter (statuses as of 07/24/2022) [facility] History of Past illness Narrative* Problem Noted Date Resolved Date Venous stasis ulcer of right calf limited to breakdown of skin without varicose veins 10/06/2020 11/30/[address] percutaneous transluminal coronary angioplasty (PTCA) 07/02/2020 07/02/2020 Diabetic ulcer of toe of lef t foot associated with type 2 diabetes mellitus 06/21/2020 10/06/2020 Acute kidney injury (DANIELA) with acute tubular nec rosis (ATN) 11/06/2019 06/21/2020 Osteomyelitis of second toe of right foot 201906/21/2020 Osteomyelitis of third toe of right foot 020 06/21/2020 Skin ulcer of toe of right f oot, limited to breakdown of skin 04/24/2018 07/24/2018 Nephrolithiasis 10/17/2016 04/24/2018 Hematuria 05/31/2014 08/19/2014 Chronic anticoagulation 05/31/2014 08/20/19 15 History of smoking 05/31/2014 08/19/2014 JAMES (obstructive sleep apnea) 08/13/2013 Diabetic polyneuropathy 01/30/2006 04/24/19 19 Personal history of contact with and (suspected) exposure to asbestos 08/19/2014 Nonspecific abnormal results of liver function s tudy 08/19/2014 documented as of this encounter (statuses as of 08/07/2022) [facility] History of Past illness Narrative* Problem Noted Date Resolved Date Venous stasis ulcer of right calf limited to breakdown of skin without varicose veins 10/06/2020 11/30/[address] percutaneous transluminal coronary angioplasty (PTCA) 07/02/2020 07/02/2020 Diabetic ulcer of toe of lef t foot associated with type 2 diabetes mellitus 06/21/2020 10/06/2020 Acute kidney injury (DANIELA) with acute tubular nec rosis (ATN) 11/06/2019 06/21/2020 Osteomyelitis of second toe of right foot 201906/21/2020 Osteomyelitis of third toe of right foot 020 06/21/2020 Skin ulcer of toe of right f oot, limited to breakdown of skin 04/24/2018 07/24/2018 Nephrolithiasis 10/17/2016 04/24/2018 Hematuria 05/31/2014 08/19/2014 Chronic anticoagulation 05/31/2014 08/20/19 15 History of smoking 05/31/2014 08/19/2014 JAMES (obstructive sleep apnea) 08/13/2013 Diabetic polyneuropathy 01/30/2006 04/24/19 19 Personal history of contact with and (suspected) exposure to asbestos 08/19/2014 Nonspecific abnormal results of liver function s markus 08/19/2014 documented as of this encounter (statuses as of 08/27/2022) [facility] History of Past illness Narrative* Problem Noted Date Resolved Date Venous stasis ulcer of right calf limited to breakdown of skin without varicose veins 10/06/2020 11/30/[address] percutaneous transluminal coronary angioplasty (PTCA) 07/02/2020 07/02/2020 Diabetic ulcer of toe of lef t foot associated with type 2 diabetes mellitus 06/21/2020 10/06/2020 Acute kidney injury (DANIELA) with acute tubular nec rosis (ATN) 11/06/2019 06/21/2020 Osteomyelitis of second toe of right foot 201906/21/2020 Osteomyelitis of third toe of right foot 020 06/21/2020 Skin ulcer of toe of right f oot, limited to breakdown of skin 04/24/2018 07/24/2018 Nephrolithiasis 10/17/2016 04/24/2018 Hematuria 05/31/2014 08/19/2014 Chronic anticoagulation 05/31/2014 08/20/19 15 History of smoking 05/31/2014 08/19/2014 JAMES (obstructive sleep apnea) 08/13/2013 Diabetic polyneuropathy 01/30/2006 04/24/19 19 Personal history of contact with and (suspected) exposure to asbestos 08/19/2014 Nonspecific abnormal results of liver function s markus 08/19/2014 documented as of this encounter (statuses as of 09/12/2022) [facility] History of Past illness Narrative* Problem Noted Date Diagnosed Date Resolved Date Venous stasis ulcer of right calf limited to breakdown of skin without varicose veins 10/06/2020 11/30/[address] percutaneous transluminal coronary angioplasty (PTCA) 07/02/2020 07/02/2020 Diabetic ulcer of toe of lef t foot associated with type 2 diabetes mellitus 06/21/2020 10/06/2020 Acute kidney injury (DANIELA) wi th acute tubular necrosis (ATN) 11/06/2019 06/21/2020 Osteomyelitis of second toe of right foot 09/17/2019 06/21/2020 Osteomyelitis of third toe of right foot 09/17/2019 06/21/2020 Skin ulcer of toe of right f oot, limited to breakdown of skin 04/24/2018 07/24/2018 Nephrolithiasis 10/17/2016 04/24/2018 Hematuria 05/31/2014 08/19/2014 Chronic anticoagulation 05/31/201407/24 History of smoking 05/31/2014 5 JAMES (obstructive sleep apnea) 08/13/2013 08/19/2014 Diabetic polyneuropathy 01/30/200603/27 Personal history of contact with and (suspected) exposure to asbestos 015 Nonspecific abnormal results of liver function study 08/19/2014 documented as of this encounter (statuses as of 10/02/2022) [facility] History of Past illness Narrative* Problem Noted Date Diagnosed Date Resolved Date Venous stasis ulcer of right calf limited to breakdown of skin without varicose veins 10/06/2020 11/30/[address] percutaneous transluminal coronary angioplasty (PTCA) 07/02/2020 07/02/2020 Diabetic ulcer of toe of lef t foot associated with type 2 diabetes mellitus 06/21/2020 10/06/2020 Acute kidney injury (DANIELA) wi th acute tubular necrosis (ATN) 11/06/2019 06/21/2020 Osteomyelitis of second toe of right foot 09/17/2019 06/21/2020 Osteomyelitis of third toe of right foot 09/17/2019 06/21/2020 Skin ulcer of toe of right f oot, limited to breakdown of skin 04/24/2018 07/24/2018 Nephrolithiasis 10/17/2016 04/24/2018 Hematuria 05/31/2014 08/19/2014 Chronic anticoagulation 05/31/201407/24 History of smoking 05/31/2014 5 JAMES (obstructive sleep apnea) 08/13/2013 08/19/2014 Diabetic polyneuropathy 01/30/200603/27 Personal history of contact with and (suspected) exposure to asbestos 015 Nonspecific abnormal results of liver function study 08/19/2014 documented as of this encounter (statuses as of 10/03/2022) [facility] History of Past illness Narrative* Problem Noted Date Diagnosed Date Resolved Date Venous stasis ulcer of right calf limited to breakdown of skin without varicose veins 10/06/2020 11/30/[address] percutaneous transluminal coronary angioplasty (PTCA) 07/02/2020 07/02/2020 Diabetic ulcer of toe of lef t foot associated with type 2 diabetes mellitus 06/21/2020 10/06/2020 Acute kidney injury (DANIELA) wi th acute tubular necrosis (ATN) 11/06/2019 06/21/2020 Osteomyelitis of second toe of right foot 09/17/2019 06/21/2020 Osteomyelitis of third toe of right foot 09/17/2019 06/21/2020 Skin ulcer of toe of right f oot, limited to breakdown of skin 04/24/2018 07/24/2018 Nephrolithiasis 10/17/2016 04/24/2018 Hematuria 05/31/2014 08/19/2014 Chronic anticoagulation 05/31/201407/24 History of smoking 05/31/2014 5 JAMES (obstructive sleep apnea) 08/13/2013 08/19/2014 Diabetic polyneuropathy 01/30/200603/27 Personal history of contact with and (suspected) exposure to asbestos 015 Nonspecific abnormal results of liver function study 08/19/2014 documented as of this encounter (statuses as of 10/11/2022) [facility] History of Past illness Narrative* Problem Noted Date Diagnosed Date Resolved Date Venous stasis ulcer of right calf limited to breakdown of skin without varicose veins 10/06/2020 11/30/[address] percutaneous transluminal coronary angioplasty (PTCA) 07/02/2020 07/02/2020 Diabetic ulcer of toe of lef t foot associated with type 2 diabetes mellitus 06/21/2020 10/06/2020 Acute kidney injury (DANIELA) wi th acute tubular necrosis (ATN) 11/06/2019 06/21/2020 Osteomyelitis of second toe of right foot 09/17/2019 06/21/2020 Osteomyelitis of third toe of right foot 09/17/2019 06/21/2020 Skin ulcer of toe of right f oot, limited to breakdown of skin 04/24/2018 07/24/2018 Nephrolithiasis 10/17/2016 04/24/2018 Hematuria 05/31/2014 08/19/2014 Chronic anticoagulation 05/31/201407/24 History of smoking 05/31/2014 5 JAMES (obstructive sleep apnea) 08/13/2013 08/19/2014 Diabetic polyneuropathy 01/30/200603/27 Personal history of contact with and (suspected) exposure to asbestos 015 Nonspecific abnormal results of liver function study 08/19/2014 documented as of this encounter (statuses as of 10/19/2022) [facility] History of Past illness Narrative* Problem Noted Date Diagnosed Date Resolved Date Venous stasis ulcer of right calf limited to breakdown of skin without varicose veins 10/06/2020 11/30/[address] percutaneous transluminal coronary angioplasty (PTCA) 07/02/2020 07/02/2020 Diabetic ulcer of toe of lef t foot associated with type 2 diabetes mellitus 06/21/2020 10/06/2020 Acute kidney injury (DANIELA) wi th acute tubular necrosis (ATN) 11/06/2019 06/21/2020 Osteomyelitis of second toe of right foot 09/17/2019 06/21/2020 Osteomyelitis of third toe of right foot 09/17/2019 06/21/2020 Skin ulcer of toe of right f oot, limited to breakdown of skin 04/24/2018 07/24/2018 Nephrolithiasis 10/17/2016 04/24/2018 Hematuria 05/31/2014 08/19/2014 Chronic anticoagulation 05/31/201407/24 History of smoking 05/31/2014 5 JAMES (obstructive sleep apnea) 08/13/2013 08/19/2014 Diabetic polyneuropathy 01/30/200603/27 Personal history of contact with and (suspected) exposure to asbestos 015 Nonspecific abnormal results of liver function study 08/19/2014 documented as of this encounter (statuses as of 10/25/2022) [facility] History of Past illness Narrative* Problem Noted Date Diagnosed Date Resolved Date Venous stasis ulcer of right calf limited to breakdown of skin without varicose veins 10/06/2020 11/30/[address] percutaneous transluminal coronary angioplasty (PTCA) 07/02/2020 07/02/2020 Diabetic ulcer of toe of lef t foot associated with type 2 diabetes mellitus 06/21/2020 10/06/2020 Acute kidney injury (DANIELA) wi th acute tubular necrosis (ATN) 11/06/2019 06/21/2020 Osteomyelitis of second toe of right foot 09/17/2019 06/21/2020 Osteomyelitis of third toe of right foot 09/17/2019 06/21/2020 Skin ulcer of toe of right f oot, limited to breakdown of skin 04/24/2018 07/24/2018 Nephrolithiasis 10/17/2016 04/24/2018 Hematuria 05/31/2014 08/19/2014 Chronic anticoagulation 05/31/201407/24 History of smoking 05/31/2014 5 JAMES (obstructive sleep apnea) 08/13/2013 08/19/2014 Diabetic polyneuropathy 01/30/200603/27 Personal history of contact with and (suspected) exposure to asbestos 015 Nonspecific abnormal results of liver function study 08/19/2014 documented as of this encounter (statuses as of 10/26/2022) [facility] History of Past illness Narrative* Problem Noted Date Diagnosed Date Resolved Date Venous stasis ulcer of right calf limited to breakdown of skin without varicose veins 10/06/2020 11/30/[address] percutaneous transluminal coronary angioplasty (PTCA) 07/02/2020 07/02/2020 Diabetic ulcer of toe of lef t foot associated with type 2 diabetes mellitus 06/21/2020 10/06/2020 Acute kidney injury (DANIELA) wi th acute tubular necrosis (ATN) 11/06/2019 06/21/2020 Osteomyelitis of second toe of right foot 09/17/2019 06/21/2020 Osteomyelitis of third toe of right foot 09/17/2019 06/21/2020 Skin ulcer of toe of right f oot, limited to breakdown of skin 04/24/2018 07/24/2018 Nephrolithiasis 10/17/2016 04/24/2018 Hematuria 05/31/2014 08/19/2014 Chronic anticoagulation 05/31/201407/24 History of smoking 05/31/2014 5 JAMES (obstructive sleep apnea) 08/13/2013 08/19/2014 Diabetic polyneuropathy 01/30/200603/27 Personal history of contact with and (suspected) exposure to asbestos 015 Nonspecific abnormal results of liver function study 08/19/2014 documented as of this encounter (statuses as of 11/20/2022) [facility] History of Past illness Narrative* Problem Noted Date Diagnosed Date Resolved Date Venous stasis ulcer of right calf limited to breakdown of skin without varicose veins 10/06/2020 11/30/[address] percutaneous transluminal coronary angioplasty (PTCA) 07/02/2020 07/02/2020 Diabetic ulcer of toe of lef t foot associated with type 2 diabetes mellitus 06/21/2020 10/06/2020 Acute kidney injury (DANIELA) wi th acute tubular necrosis (ATN) 11/06/2019 06/21/2020 Osteomyelitis of second toe of right foot 09/17/2019 06/21/2020 Osteomyelitis of third toe of right foot 09/17/2019 06/21/2020 Skin ulcer of toe of right f oot, limited to breakdown of skin 04/24/2018 07/24/2018 Nephrolithiasis 10/17/2016 04/24/2018 Hematuria 05/31/2014 08/19/2014 Chronic anticoagulation 05/31/201407/24 History of smoking 05/31/2014 5 JAMES (obstructive sleep apnea) 08/13/2013 08/19/2014 Diabetic polyneuropathy 01/30/200603/27 Personal history of contact with and (suspected) exposure to asbestos 015 Nonspecific abnormal results of liver function study 08/19/2014 documented as of this encounter (statuses as of 12/06/2022) [facility] History of Past illness Narrative* Problem Noted Date Diagnosed Date Resolved Date Venous stasis ulcer of right calf limited to breakdown of skin without varicose veins 10/06/2020 11/30/[address] percutaneous transluminal coronary angioplasty (PTCA) 07/02/2020 07/02/2020 Diabetic ulcer of toe of lef t foot associated with type 2 diabetes mellitus 06/21/2020 10/06/2020 Acute kidney injury (DANIELA) wi th acute tubular necrosis (ATN) 11/06/2019 06/21/2020 Osteomyelitis of second toe of right foot 09/17/2019 06/21/2020 Osteomyelitis of third toe of right foot 09/17/2019 06/21/2020 Skin ulcer of toe of right f oot, limited to breakdown of skin 04/24/2018 07/24/2018 Nephrolithiasis 10/17/2016 04/24/2018 Hematuria 05/31/2014 08/19/2014 Chronic anticoagulation 05/31/201407/24 History of smoking 05/31/2014 5 JAMES (obstructive sleep apnea) 08/13/2013 08/19/2014 Diabetic polyneuropathy 01/30/200603/27 Personal history of contact with and (suspected) exposure to asbestos 015 Nonspecific abnormal results of liver function study 08/19/2014 documented as of this encounter (statuses as of 12/07/2022) [facility] History of Past illness Narrative* Problem Noted Date Diagnosed Date Resolved Date Venous stasis ulcer of right calf limited to breakdown of skin without varicose veins 10/06/2020 11/30/2020 Coronary arteriosclerosis af ter percutaneous transluminal coronary angioplasty (PTCA) 07/02/2020 07/02/2020 Diabetic ulcer of toe of lef t foot associated with type 2 diabetes mellitus 06/21/2020 10/06/2020 Acute kidney injury (DANIELA) wi th acute tubular necrosis (ATN) 11/06/2019 06/21/2020 Osteomyelitis of second toe of right foot 09/17/2019 06/21/2020 Osteomyelitis of third toe of right foot 09/17/2019 06/21/2020 Skin ulcer of toe of right f oot, limited to breakdown of skin 04/24/2018 07/24/2018 Nephrolithiasis 10/17/2016 04/24/2018 Hematuria 05/31/2014 08/19/2014 Chronic anticoagulation 05/31/201407/24 History of smoking 05/31/2014 5 JAMES (obstructive sleep apnea) 08/13/2013 08/19/2014 Diabetic polyneuropathy 01/30/200603/27 Personal history of contact with and (suspected) exposure to asbestos 015 Nonspecific abnormal results of liver function study 08/19/2014 documented as of this encounter (statuses as of 01/14/2023) [facility]07-15-[facility]21 History of Past illness Narrative* Problem Noted Date Diagnosed Date Resolved Date Venous stasis ulcer of right calf limited to breakdown of skin without varicose veins 10/06/2020 11/30/[address] percutaneous transluminal coronary angioplasty (PTCA) 07/02/2020 07/02/2020 Diabetic ulcer of toe of lef t foot associated with type 2 diabetes mellitus 06/21/2020 10/06/2020 Acute kidney injury (DANIELA) wi th acute tubular necrosis (ATN) 11/06/2019 06/21/2020 Osteomyelitis of second toe of right foot 09/17/2019 06/21/2020 Osteomyelitis of third toe of right foot 09/17/2019 06/21/2020 Skin ulcer of toe of right f oot, limited to breakdown of skin 04/24/2018 07/24/2018 Nephrolithiasis 10/17/2016 04/24/2018 Hematuria 05/31/2014 08/19/2014 Chronic anticoagulation 05/31/201407/24 History of smoking 05/31/2014 5 JAMES (obstructive sleep apnea) 08/13/2013 08/19/2014 Diabetic polyneuropathy 01/30/200603/27 Personal history of contact with and (suspected) exposure to asbestos 015 Nonspecific abnormal results of liver function study 08/19/2014 documented as of this encounter (statuses as of 01/16/2023) [facility] History of Past illness Narrative* Problem Noted Date Diagnosed Date Resolved Date Venous stasis ulcer of right calf limited to breakdown of skin without varicose veins 10/06/2020 11/30/[address] percutaneous transluminal coronary angioplasty (PTCA) 07/02/2020 07/02/2020 Diabetic ulcer of toe of lef t foot associated with type 2 diabetes mellitus 06/21/2020 10/06/2020 Acute kidney injury (DANIELA) wi th acute tubular necrosis (ATN) 11/06/2019 06/21/2020 Osteomyelitis of second toe of right foot 09/17/2019 06/21/2020 Osteomyelitis of third toe of right foot 09/17/2019 06/21/2020 Skin ulcer of toe of right f oot, limited to breakdown of skin 04/24/2018 07/24/2018 Nephrolithiasis 10/17/2016 04/24/2018 Hematuria 05/31/2014 08/19/2014 Chronic anticoagulation 05/31/201407/24 History of smoking 05/31/2014 5 JAMES (obstructive sleep apnea) 08/13/2013 08/19/2014 Diabetic polyneuropathy 01/30/200603/27 Personal history of contact with and (suspected) exposure to asbestos 015 Nonspecific abnormal results of liver function study 08/19/2014 documented as of this encounter (statuses as of 03/15/2023) [facility] History of Past illness Narrative* Problem Noted Date Diagnosed Date Resolved Date Venous stasis ulcer of right calf limited to breakdown of skin without varicose veins 10/06/2020 11/30/[address] percutaneous transluminal coronary angioplasty (PTCA) 07/02/2020 07/02/2020 Diabetic ulcer of toe of lef t foot associated with type 2 diabetes mellitus 06/21/2020 10/06/2020 Acute kidney injury (DANIELA) wi th acute tubular necrosis (ATN) 11/06/2019 06/21/2020 Osteomyelitis of second toe of right foot 09/17/2019 06/21/2020 Osteomyelitis of third toe of right foot 09/17/2019 06/21/2020 Skin ulcer of toe of right f oot, limited to breakdown of skin 04/24/2018 07/24/2018 Nephrolithiasis 10/17/2016 04/24/2018 Hematuria 05/31/2014 08/19/2014 Chronic anticoagulation 05/31/201407/24 History of smoking 05/31/2014 5 JAMES (obstructive sleep apnea) 08/13/2013 08/19/2014 Diabetic polyneuropathy 01/30/200603/27 Personal history of contact with and (suspected) exposure to asbestos 015 Nonspecific abnormal results of liver function study 08/19/2014 documented as of this encounter (statuses as of 05/23/2023) [facility]04-09-2021 NoteHNO ID: [id number] Author: Michelle Carver (Rn) SHALA Mulligan Service: Care Management Author Type: Registered Nurse Type: Care Mgt Initial Assessment Filed: 07/01/2020 7:31 PM Note Text: CARE MANAGEMENT: ASSESSMENT AND DISCHARGE PLAN SERVICE DATE: July 01, 2020 SERVICE TIME: 7:00 PRIMARY CARE PHYSICIAN: Krishna Reynolds MD ADMISSION STATUS: Ambulatory Surgery Needs Prior to Discharge: Ready for Discharge MEDICAL: MEDICARE A AND B 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 Last discharge within 30 days: No Advance Directive: Current Advance Directive: Health Care Power of Veneer Department Manager;Living Will In Chart: Yes Up To Date and Valid: Yes Health LiteracyHow often do you need to have someone help you when you read instructions, pamphlets, or other written material from your doctor or pharmacy? : 1 - Never How confident are you filling out medical forms by yourself?: 1 - Extremely If Patient scores > 3 on either question, the following interventions were put into place:: Patient did not score > 3 on either question. Baseline Mental Status Prior to this Illness what was the patient's Baseline Mental Status?: Alert AND Oriented Prior to this illness, has anyone described the patient having any of the following behaviors?: Not Applicable Relationship of the informant to the patient:: Self Functional Status: Independent Does Patient Currently Receive Any Community Services or Home Care?: None Equipment Prior to Admission: Walker;Wheelchair;Other: See Comment (have but do not use) Has the Patient Been in a Custodial Facility in the Past 30 days?: No SOCIAL: Living Arrangements: Home Lives With: Spouse Financial Resources: Retired Primary Contact: Extended Emergency Contact Information Primary Emergency Contact: Jessica Moya Address: [address] [place] [address] Mobile Relation: Spouse Supportive Patient Contact:: Yes Contact Resources: Family Family Name/Phone: Jessica Moya (Spouse) [phone] (Home Phone) Caregiver AssessmentCaregiver is ready, willing and able to meet the patient's needs as recommended by the inter-professional team:: Yes Does the patient have an acute stroke diagnosis, or has the patient had a stroke during this admission?: No Patient's perception of need for this admission: angioplasty Medication Adherance I am convinced of the importance of my prescription medication: 0 - Agree Completely I worry that my prescription medication will do more harm than good to me : 0 - Disagree Mostly I feel financially burdened by my [id number] expenses for my prescription medication:: 0 - Disagree Mostly Risk Score: 0 Patient is categorized as: Low risk < 2 Are you interested in bedside delivery of your medications? No Is Patient Psychosocially Complex?: No ASSESSMENT AND PLAN: Medical Needs: Medical Needs: Two or more chronic diseases;Diabetes Psychosocial Needs: Psychosocial Needs: None FREEDOM OF CHOICE EXPLAINED: [place] of Choice Given: No Reason Not Given: No placements necessary POTENTIAL TRANSITION PLANS Home Patient in [facility] after cardiac catherization. He lives with his a RN. 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 He has problems with cost of medicine when in [facility]. Insulin cost 300.00. He has walkers and wheelchair but does not need them. + PCP Anticipate d/c weekend no needs. SIGNATURE: Michelle Mulligan RN PATIENT NAME: Miguelangel Moya DATE: July 01, 2020 TIME: 7:28 PM PAGER/CONTACT #: [phone] NoteHNO ID: [id number] Author: Regulo Stover Service: ? Author Type: Physician Type: Progress Notes Filed: 06/28/2020 7:33 PM Note Text: I spoke to the patient and his regarding cardiac catheterization. They are frustrated due to his persistent symptoms of shortness of breath on minimal exertion. His surgery on his foot had to be canceled due to his cardiac risk. I discussed the possibility of proceeding with cardiac catheterization without hemodynamic support. Patient is at high risk for placement of a support system due to his severe peripheral vascular disease. I had a lengthy discussion with the patient and his regarding revascularization. The risks were reviewed in detail. I will discuss his case further with interventional cardiology and cardiothoracic surgery. Tried a plan for high risk percutaneous coronary intervention in the next 1 to 2 weeks.[facility]01-26-2021 NoteHNO ID: [id number] Author: Kerrie VelozRtNash Kasper Service: Radiology Author Type: Telehealth Director Type: Progress Notes Filed: 04/19/2020 2:10 PM Note Text: Radiology Service Progress Note DATE OF SERVICE: April 19, 2020 TIME: 2:09 PM PATIENT IDENTITY VERIFICATION COMPLETED USING TWO (2) STANDARD IDENTIFIERS: Name and Date of confirmed by patient verbally and Name and Date of confirmed by identification band. FALL SCREENING: Has the patient had 2 falls in the last year or 1 fall with injury or currently using an Ambulatory Assistive Device (Walker, Cane, Wheelchair, Crutches, etc.)? No PATIENT GENDER DATA: Male PATIENT RELEVANT IMPLANT DATA REVIEWED: Not Applicable ALLERGIES: Reviewed and unchanged CONTRAST ALLERGY: NO. EXAM: CT -CONTRAST INDUCED NEPHROPATHY RISK FACTORS: Patient age > 60 years CREATININE: Creatinine Date Value Ref Range Status 10/29/2019 1.39 (H) 0.73 - 1.22 mg/dL Final 10/22/2019 1.73 (H) 0.73 - 1.22 mg/dL Final 10/15/2019 2.51 (H) 0.73 - 1.22 mg/dL Final eGFR-All Other Races Date Value Ref Range Status 10/29/2019 51 . Final Comment: eGFR (Estimated GFR) Units of measure: mL/min/1.73 meters squared eGFR is derived from the reexpressed MDRD Study equation using the following parameters: serum creatinine, age, gender and race. The creatinine assay has been calibrated to be traceable to IDMS. An eGFR <60 mL/min/1.73m2 for >3 months is consistent with chronic kidney disease. Refer to KDOQI guidelines for clinical interpretation. In patients with unstable renal function, e.g. those with acute kidney injury, the eGFR may not accurately reflect actual GFR. eGFR- Date Value Ref Range Status 10/29/2019 >60 Final P.O.C.T. RESULTS: N/A April 19, 2020 TREATMENT: N/A and IV Hydration: Normal Saline solution DONE IN POD ml over DONE IN POD hours. PERIPHERAL IV DATA: Inpatient - refer to LDA documentation RADIOLOGY DEPARTMENT: CT; Exam(s) Completed: CTA Abdomen Pelvis and GATED CTA CHEST SIGNATURE: RT Mack PATIENT NAME: Miguelangel Moya DATE: April 19, 2020 TIME: 2:09 [facility]01-07-2021 NoteHNO ID: [id number] Author: Regulo Stover Service: ? Author Type: Physician Type: Progress Notes Filed: 03/31/2020 9:37 AM Note Text: [facility] SECTION OF [facility] Cardiology [place] ([facility] ([facility] [address] [facility] [id number] OUTPATIENT VISIT DATE 03/26/2020 PRIMARY CARE PHYSICIAN: Krishna Reynolds MD [address] [place] [address] CHIEF COMPLAINT: Patient with complex coronary artery disease referred for evaluation of possible high risk PCI HISTORY OF PRESENT ILLNESS: Mr. Moya is a 69 year old with extensive medical problems including morbid obesity, diabetes insulin requiring, chronic diastolic heart failure, chronic kidney disease and coronary artery disease who is referred for evaluation. Patient was sent to Dr. Dobbs for consideration already bypass grafting. After extensive discussion regarding his medical condition the decision was made not to proceed with coronary bypass grafting referred for possible high risk percutaneous coronary intervention. He has severe shortness of breath on minimal exertion. He has never had chest pain or pressure. He has chronic lower extremity edema which has been better with dietary restriction of sodium. He is currently on Lasix 40 mg twice daily. He denies symptoms consistent with PND orthopnea. He denies any feelings of palpitations, lightheadedness, dizziness or syncope. He has a history of paroxysmal atrial fibrillation which on recent evaluation seems to be persistent. He had been on Coumadin therapy in the past but developed severe hematuria. He refuses consideration for coagulation therapy. He is currently on dual antiplatelet therapy. He tells me he has difficulty affording medications. We discussed the possibility of considering alternate pharmacotherapy including PCSK9 inhibitor. From OV with Dr Dobbs 02/10/20 HPI: This is a 69 year old man referred for evaluation of symptomatic severe multivessel coronary disease in the setting of chronic atrial fibrillation and for consideration for bypass surgery versus PCI. He has a history of coronary artery disease. He underwent PCI and stenting to a second obtuse marginal branch in 2007 with good result. At that time, he had not suffered an acute event. He has a fairly long history of exertional dyspnea. However, more recently, and has become much more severe and exertion limiting. He denies chest pressure, burning, or heaviness. He denies orthopnea. His chronic lower extremity edema. Stress testing revealed inducible ischemia in the distal inferior and inferoapical segments with ejection fraction 59%. On this basis, left heart catheterization was performed revealing severe multivessel coronary disease including a proximal eccentric 50% left main stenosis; 85% eccentric proximal LAD stenosis; mild disease in the circumflex artery; intact stent in the circumflex artery; and occluded RCA with collateral filling via [id number] collaterals. 2D echo shows ejection fraction of 65%; severely enlarged left atrium; mild diffuse aortic valve calcification with mild aortic stenosis; trivial mitral insufficiency. ? Risk factors for coronary disease include diabetes mellitus, hyperlipidemia, hypertension, morbid obesity, and sedentary lifestyle. ? He has atrial fibrillation which appears to be chronic, perhaps permanent. He has been anticoagulant in the past with Coumadin but had problems with hematuria. At this point he refuses to take Coumadin. He tells me he is on dual antiplatelet therapy without bleeding. ? He is non-smoker. He likely has obstructive sleep apnea but has refused evaluation. His does note heavy snoring periods of apnea. His dyspnea has been felt to be multifactorial with elements of obesity, probable restrictive lung disease and obstructive sleep apnea, and coronary disease playing a role. ? There is a history of renal insufficiency. In September of this past year, while undergoing IV antibiotic therapy for diabetic toe problems, he had acute renal insufficiency with a creatinine of over 5. This may have been due to the antibiotic therapy itself. More recently his creatinine has dropped to 1.39. ? He does not have a history of stroke. He does not have a history of lower extremity vascular disease although he has had diabetic toe problems. PAST MEDICAL HISTORY Diagnosis Date - CAD (coronary artery disease) 10/07/2007 70% stenosis circumflex 2nd marginal branch. Drug eluting stent done. - Esophageal reflux - Generalized osteoarthrosis, unspecified site - Nephrolithiasis 10/17/2016 - NEUROPATHY IN DIABETES 01/30/2006 - Nonspecific abnormal results of liver function study - Obesity, unspecified - JAMES (obstructive sleep apnea) 08/13/2013 declined tx - Osteomyelitis of second toe of right foot (HCC) (more content not included)...[facility]11-24-2020 NoteHNO ID: [id number] Author: Saida ([employer] Dana) DANA Phan Service: ? Author Type: Nurse Practitioner Type: Progress Notes Filed: 02/16/2020 9:52 AM Note Text: MULTI DISCIPLINARY HIGH RISK AVR CARDIAC TEAM Members present: Dr. Dobbs, Dr. Renee, Dr. Allen, Dr. Stover, Dr. Elizabeth, Dr. Barclay, Jennifer Lee TIGHT COOPER, INSPECTOR FIBROUS WALLBOARD, Gretchen TIGHT COOPER, INSPECTOR FIBROUS WALLBOARD, Eileen Rueda TIGHT COOPER, INSPECTOR FIBROUS WALLBOARD. Presenting Physician: PATIENT NAME: Miguelangel Moya DATE: February 16, 2020 Outcome: Miguelangel Moya 's history and imaging were reviewed by the physicians in attendance. This is a patient with progressive CAD who has severe exertional dyspnea with some anginal element in play, he was found to have severe MV CAD with well preserved LV function. Concerns including post-op rehab given his immobility related to morbid obesity, chronic dyspnea possible restrictive lung disease, and CKD that patient might not tolerate CABG. Additionally, patient is very reluctant to undergo CABG. The collaborative recommendation would be that patient does have PCI option. He will be referred to Dr. Stover for PCI eval and discussion. REFERRAL PLACED. Saida Phan APRN.[facility]11-18-2020 NoteHNO ID: [id number] Author: Curt Dobbs Service: ? Author Type: Physician Type: Progress Notes Filed: 02/10/2020 5:46 PM Note Text: CARDIOTHORACIC SURGERY CONSULT / HANDP SERVICE DATE: 02/10/2020 SERVICE TIME: 5:26 PM Subjective PRIMARY SERVICE: Cardiothoracic Surgery CHIEF COMPLAINT: Severe multivessel coronary disease; chronic atrial fibrillation HPI: This is a 69 year old man referred for evaluation of symptomatic severe multivessel coronary disease in the setting of chronic atrial fibrillation and for consideration for bypass surgery versus PCI. He has a history of coronary artery disease. He underwent PCI and stenting to a second obtuse marginal branch in 2007 with good result. At that time, he had not suffered an acute event. He has a fairly long history of exertional dyspnea. However, more recently, and has become much more severe and exertion limiting. He denies chest pressure, burning, or heaviness. He denies orthopnea. His chronic lower extremity edema. Stress testing revealed inducible ischemia in the distal inferior and inferoapical segments with ejection fraction 59%. On this basis, left heart catheterization was performed revealing severe multivessel coronary disease including a proximal eccentric 50% left main stenosis; 85% eccentric proximal LAD stenosis; mild disease in the circumflex artery; intact stent in the circumflex artery; and occluded RCA with collateral filling via [id number] collaterals. 2D echo shows ejection fraction of 65%; severely enlarged left atrium; mild diffuse aortic valve calcification with mild aortic stenosis; trivial mitral insufficiency. Risk factors for coronary disease include diabetes mellitus, hyperlipidemia, hypertension, morbid obesity, and sedentary lifestyle. He has atrial fibrillation which appears to be chronic, perhaps permanent. He has been anticoagulant in the past with Coumadin but had problems with hematuria. At this point he refuses to take Coumadin. He tells me he is on dual antiplatelet therapy without bleeding. He is non-smoker. He likely has obstructive sleep apnea but has refused evaluation. His does note heavy snoring periods of apnea. His dyspnea has been felt to be multifactorial with elements of obesity, probable restrictive lung disease and obstructive sleep apnea, and coronary disease playing a role. There is a history of renal insufficiency. In September of this past year, while undergoing IV antibiotic therapy for diabetic toe problems, he had acute renal insufficiency with a creatinine of over 5. This may have been due to the antibiotic therapy itself. More recently his creatinine has dropped to 1.39. He does not have a history of stroke. He does not have a history of lower extremity vascular disease although he has had diabetic toe problems. PAST MEDICAL HISTORY Diagnosis Date - CAD (coronary artery disease) 10/07/2007 70% stenosis circumflex 2nd marginal branch. Drug eluting stent done. - Esophageal reflux - Generalized osteoarthrosis, unspecified site - Nephrolithiasis 10/17/2016 - NEUROPATHY IN DIABETES 01/30/2006 - Nonspecific abnormal results of liver function study - Obesity, unspecified - JAMES (obstructive sleep apnea) 08/13/2013 declined tx - Osteomyelitis of second toe of right foot (HCC) 09/17/2019 - Osteomyelitis of third toe of right foot (HCC) 09/17/2019 - Other and unspecified hyperlipidemia - Paroxysmal atrial fibrillation (HCC) 10/07/2007 - Personal history of contact with and (suspected) exposure to asbestos - Type II or unspecified type diabetes mellitus without mention of complication, not stated as uncontrolled - Unspecified essential hypertension - Unspecified venous (peripheral) insufficiency PAST SURGICAL HISTORY Procedure Laterality Date - AMPUTATION TOE,I-P JT Right 09/17/2019 2nd, 3rd toes, right foot - CYSTOSCOPY 06/23/2014 - LEFT HEART CATH,PERCUTANEOUS 10/07/2007 Cardiac cath, L heart - LEFT HEART CATH,PERCUTANEOUS 12/29/2019 [facility] - REMOVAL ADENOIDS,PRIMARY,<12 Y/O 1960 Adenoidectomy - REMOVAL OF TONSILS,<12 Y/O 1957 Tonsillectomy - TRANSCATH STENT INIT VESSEL,PERCUT Transcath stent init vessel percut, DILIA - VASECTOMY 1977 FAMILY HISTORY Problem Relation Age of Onset - Heart Father - Hypertension Mother - Stroke Mother - Lipids Mother - Thyroid Sister - Cancer Brother bladder and kidney Social History Tobacco Use - Smoking status: Former Smoker Years: 30.00 - Smokeless tobacco: Current User Types: Chew Substance Use Topics - Alcohol use: Yes Comment: Rare - Drug use: Not on file (Not in a hospital admission) clopidogrel (PLAVIX) 75 mg tablet, Take 75 mg by mouth once daily. furosemide (LASIX) 40 mg tablet, Take 40 mg by mouth twice daily. glimepiride (AMARYL) 4 mg tablet, Take 0.5 tablets by mouth twice daily with meals. BIOTIN ORAL, Take 1 tablet by mouth once antoine (more content not included)... [facility]11-18-2020 NoteHNO ID: [id number] Author: Saida (Truck [employer] Dana) DANA Phan Service: ? Author Type: Nurse Practitioner Type: Progress Notes Filed: 02/10/2020 5:46 PM Note Text: [facility] Adult Cardiac Surgery Database Version 4.20 RISK SCORES Procedure: Isolated CAB CALCULATE Risk of Mortality: 1.988% Renal Failure: 6.516% Permanent Stroke: 1.011% Prolonged Ventilation: 12.330% DSW Infection: 1.180% Reoperation: 2.029% Morbidity or Mortality: 19.300% Short Length of Stay: 21.858% Long Length of Stay: 13.101% Saida Phan APRN.[facility]* Diagnosis Type 2 diabetes mellitus with diabetic neuropathy, with long-term current use of insulin (HCC) [facility] Diagnosis Type 2 diabetes mellitus with diabetic neuropathy, with long-term current use of insulin (HCC) [facility] Diagnosis Coronary artery disease involving alutiiq coronary artery of alutiiq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 (HCC) [facility] Diagnosis Type 2 diabetes mellitus with diabetic neuropathy, with long-term current use of insulin (HCC)- Primary Essential hypertension Unspecified essential hypertension Chronic diastolic congestive heart failure (HCC) Chronic diastolic heart failure Coronary artery disease of alutiiq artery of alutiiq heart with stable angina pectoris (HCC) Persistent atrial fibrillation (HCC) Atrial fibrillation Need for vaccination Need for prophylactic vaccination and inoculation against unspecified single disease [facility] Diagnosis Essential hypertension Unspecified essential hypertension [facility] Diagnosis Corns and callosities- Primary DM (diabetes mellitus), type 2 with neurological complications (HCC) Type II or unspecified type diabetes mellitus with neurological manifestations, not stated as uncontrolled [facility] Diagnosis Coronary artery disease of alutiiq artery of alutiiq heart with stable angina pectoris (HCC)- Primary Persistent atrial fibrillation (HCC) Atrial fibrillation Chronic diastolic congestive heart failure (HCC) Chronic diastolic heart failure Essential hypertension Unspecified essential hypertension Other hyperlipidemia Statin intolerance Other drug allergy Class 3 severe obesity due to excess calories with serious comorbidity and body mass index (BMI) of 45.0 to 49.9 in adult (HCC) Dyspnea on exertion Other dyspnea and respiratory abnormality Screening for ischemic heart disease [facility] Diagnosis Medicare annual wellness visit, subsequent- Primary Routine general medical examination at a [facility] care facility Type 2 diabetes mellitus with diabetic neuropathy, with long-term current use of insulin (HCC) Balance problem Other symptoms involving nervous and musculoskeletal systems Gait abnormality Abnormality of gait Chronic diastolic congestive heart failure (HCC) Chronic diastolic heart failure [facility] Diagnosis Type 2 diabetes mellitus with diabetic neuropathy, with long-term current use of insulin (HCC)- Primary Other hyperlipidemia Essential hypertension Unspecified essential hypertension [facility] Diagnosis Type 2 diabetes mellitus with diabetic neuropathy, with long-term current use of insulin (HCC)- Primary [facility] Statin intolerance- Primary Other drug allergy Type 2 diabetes mellitus with diabetic neuropathy, with long-term current use of insulin ([facility]) Chronic diastolic congestive heart failure (HCC) Chronic diastolic heart failure Essential hypertension Unspecified essential hypertension Coronary artery disease of alutiiq artery of alutiiq heart with stable angina pectoris ([facility]) Other hyperlipidemia [facility] Diagnosis Coronary artery disease involving alutiiq heart without angina pectoris, unspecified vessel or lesion type [facility] Diagnosis Chronic diastolic congestive heart failure (HCC) Chronic diastolic heart failure ROBIN (dyspnea on exertion) Other dyspnea and respiratory abnormality [facility] Diagnosis Coronary artery disease of alutiiq artery of alutiiq heart with stable angina pectoris ([facility]) [facility]* Diagnosis Ulcer of right leg, limited to breakdown of skin ([facility])- Primary Venous (peripheral) insufficiency Unspecified venous (peripheral) insufficiency Chronic diastolic congestive heart failure ([facility]) Chronic diastolic heart failure Type 2 diabetes mellitus with diabetic neuropathy, with long-term current use of insulin ([facility]) Need for COVID-19 vaccine Essential hypertension Unspecified essential hypertension [facility] Diagnosis Ulcer of right leg, limited to breakdown of skin ([facility])- Primary [facility]* Diagnosis Corns and callosities- Primary DM (diabetes mellitus), type 2 with neurological complications ([facility]) Type II or unspecified type diabetes mellitus with neurological manifestations, not stated as uncontrolled [facility]* Diagnosis Type 2 diabetes mellitus with diabetic neuropathy, with long-term current use of insulin ([facility]) [facility] Diagnosis Type 2 diabetes mellitus with diabetic neuropathy, with long-term current use of insulin ([facility])- Primary Essential hypertension Unspecified essential hypertension Other hyperlipidemia Venous (peripheral) insufficiency Unspecified venous (peripheral) insufficiency Chronic diastolic congestive heart failure (HCC) Chronic diastolic heart failure Class 3 severe obesity due to excess calories with serious comorbidity and body mass index (BMI) of 45.0 to 49.9 in adult ([facility]) Screening for colon cancer Special screening for malignant neoplasms, colon Encounter for immunization Need for other specified prophylactic vaccination against single bacterial disease [facility] Diagnosis Coronary artery disease of alutiiq artery of alutiiq heart with stable angina pectoris (HCC) Other hyperlipidemia Statin intolerance Other drug allergy Atherosclerosis of aorta (HCC) Atherosclerosis of aorta [facility] Diagnosis Type 2 diabetes mellitus with diabetic neuropathy, with long-term current use of insulin (HCC)- Primary Other hyperlipidemia documented in this encounter [facility] for referral (narrative)* Outpatient Procedure (Routine) - Closed Specialty Diagnoses / Procedures Referred By Contac t Referred To [facility] Diagnoses Screening for ischemic heart disease Procedures ECG COMPLETE ECG ROUTINE ECG W/LEAST 12 LDS W/I&R Regulo Stover MD [address] [place] [address] [facility] [address] [place] [address] Referral ID Status Reason Start Date Expiration Date V isits Requested Visits Authorized [id number] Closed Auto-Generate d Referral 01/09/2022 01/09/2023 1 1 [facility] for visit Narrative* Outpatient Procedure (Routine) - Closed Specialty Diagnoses / Procedures Referred By Contac t Referred To Contact [facility] [place] Diagnoses Chronic diastolic congestive heart failure (HCC) ROBIN (dyspnea on exertion) Procedures ECHO ECHO TTHRC R-T 2D W/WOM-MODE COMPL SPEC&COLR D Regulo Stover MD [address] [place] [address] [facility] [address] [address] Referral ID Status Reason Start Date Expiration Date V isits Requested Visits Authorized [id number] Closed Auto-Generate d Referral 08/13/2022 08/13/2023 1 1 [facility] Summary Purpose Family History No Family History Records FoundNo Family History Records FoundNo Family History Records Found Advance Directives Documents on File Type Date Recorded Patient Paper Cone Grader Expl anation Advance Directive(s) 2020 2:35 PM Advance Directive(s) 04/19/2020 11:53 AM Advance Directive(s) 06/04/2013 2:29 PM Documents on File Type Date Recorded Patient Paper Cone Grader Expl anation Advance Directive(s) 06/04/2013 2:29 PM Documents on File Type Date Recorded Patient Paper Cone Grader Expl anation Advance Directive(s) 06/04/2013 2:29 PM Reason for Referral Specialty Diagnoses / Procedures Referred By Aranza escobar Referred To Contact [facility] Diagnoses Balance problem Gait abnormality Procedures CONSULT TO PHYSICAL THERAPY PHYSICAL THERAPY EVALUATION HIGH COMPLEX 45 MINS Older, Leila, TIGHT COOPER.INSPECTOR FIBROUS WALLBOARD [address] [place] [address] [facility] [address] [place] [address] Referral ID Status Reason Start Date Expiration Date Visits Requested Visits Authorized [id number] Authorized PCP Requested Referral Auto-Generate d Referral 01/26/2022 01/26/2023 99 99 Specialty Diagnoses / Procedures Referred By Aranza escobar Referred To Contact Diagnoses Type 2 diabetes mellitus with diabetic neuropathy, with long-term current use of insulin (HCC) Procedures CONSULT TO DIABETES EDUCATION OFFICE/OUTPATIENT [facility] MDM 60-74 MINUTES Older, Leila, TIGHT COOPER.INSPECTOR FIBROUS WALLBOARD [address] [place] [address] Referral ID Status Reason Start Date Expiration Date Visits Requested Visits Authorized [id number] Authorized PCP Requested Referral 01/26/2022 01/26/2023 1 1 Additional Source Comments (unrecognized sect ion and content) No Status Records FoundNo Status Records FoundNo Status Records Found INFORMATION SOURCE (unrecogn ized section and content) DATE CREATED AUTHOR AUTHOR'S ORGANIZ ATION 09/04/2020 [facility] DATE CREATED AUTHOR AUTHOR'S ORGANIZ ATION 03/29/2023 [facility] Source Comments (unrecognize d section and content) In the event this informatio n is protected by the Federal Confidentiality of Alcohol and Drug Abuse Patient Records regulations: The Federal rules restrict any use of the information to criminally investigate or prosecute any alcohol or drug abuse patient.[facility] event this information is protected by the Federal Confidentiality of Alcohol and Drug Abuse Patient Records regulations: The Federal rules restrict any use of the information to criminally investigate or prosecute any alcohol or drug abuse patient.[facility] the event this information is protected by the Federal Confidentiality of Alcohol and Drug Abuse Patient Records regulations: The Federal rules restrict any use of the information to criminally investigate or prosecute any alcohol or drug abuse patient.[facility] the event this information is protected by the Federal Confidentiality of Alcohol and Drug Abuse Patient Records regulations: The Federal rules restrict any use of the information to criminally investigate or prosecute any alcohol or drug abuse patient.[facility] the event this information is protected by the Federal Confidentiality of Alcohol and Drug Abuse Patient Records regulations: The Federal rules restrict any use of the information to criminally investigate or prosecute any alcohol or drug abuse patient.[facility] the event this information is protected by the Federal Confidentiality of Alcohol and Drug Abuse Patient Records regulations: The Federal rules restrict any use of the information to criminally investigate or prosecute any alcohol or drug abuse patient.[facility] the event this information is protected by the Federal Confidentiality of Alcohol and Drug Abuse Patient Records regulations: The Federal rules restrict any use of the information to criminally investigate or prosecute any alcohol or drug abuse patient.[facility] the event this information is protected by the Federal Confidentiality of Alcohol and Drug Abuse Patient Records regulations: The Federal rules restrict any use of the information to criminally investigate or prosecute any alcohol or drug abuse patient.[facility] the event this information is protected by the Federal Confidentiality of Alcohol and Drug Abuse Patient Records regulations: The Federal rules restrict any use of the information to criminally investigate or prosecute any alcohol or drug abuse patient.[facility] the event this information is protected by the Federal Confidentiality of Alcohol and Drug Abuse Patient Records regulations: The Federal rules restrict any use of the information to criminally investigate or prosecute any alcohol or drug abuse patient.[facility] the event this information is protected by the Federal Confidentiality of Alcohol and Drug Abuse Patient Records regulations: The Federal rules restrict any use of the information to criminally investigate or prosecute any alcohol or drug abuse patient.[facility] the event this information is protected by the Federal Confidentiality of Alcohol and Drug Abuse Patient Records regulations: The Federal rules restrict any use of the information to criminally investigate or prosecute any alcohol or drug abuse patient.[facility] the event this information is protected by the Federal Confidentiality of Alcohol and Drug Abuse Patient Records regulations: The Federal rules restrict any use of the information to criminally investigate or prosecute any alcohol or drug abuse patient.[facility] the event this information is protected by the Federal Confidentiality of Alcohol and Drug Abuse Patient Records regulations: The Federal rules restrict any use of the information to criminally investigate or prosecute any alcohol or drug abuse patient.[facility] the event this information is protected by the Federal Confidentiality of Alcohol and Drug Abuse Patient Records regulations: The Federal rules restrict any use of the information to criminally investigate or prosecute any alcohol or drug abuse patient.[facility] the event this information is protected by the Federal Confidentiality of Alcohol and Drug Abuse Patient Records regulations: The Federal rules restrict any use of the information to criminally investigate or prosecute any alcohol or drug abuse patient.[facility] the event this information is protected by the Federal Confidentiality of Alcohol and Drug Abuse Patient Records regulations: The Federal rules restrict any use of the information to criminally investigate or prosecute any alcohol or drug abuse patient.[facility] the event this information is protected by the Federal Confidentiality of Alcohol and Drug Abuse Patient Records regulations: The Federal rules restrict any use of the information to criminally investigate or prosecute any alcohol or drug abuse patient.[facility] the event this information is protected by the Federal Confidentiality of Alcohol and Drug Abuse Patient Records regulations: The Federal rules restrict any use of the information to criminally investigate or prosecute any alcohol or drug abuse patient.[facility] the event this information is protected by the Federal Confidentiality of Alcohol and Drug Abuse Patient Records regulations: The Federal rules restrict any use of the information to criminally investigate or prosecute any alcohol or drug abuse patient.[facility] the event this information is protected by the Federal Confidentiality of Alcohol and Drug Abuse Patient Records regulations: The Federal rules restrict any use of the information to criminally investigate or prosecute any alcohol or drug abuse patient.[facility] the event this information is protected by the Federal Confidentiality of Alcohol and Drug Abuse Patient Records regulations: The Federal rules restrict any use of the information to criminally investigate or prosecute any alcohol or drug abuse patient.[facility] the event this information is protected by the Federal Confidentiality of Alcohol and Drug Abuse Patient Records regulations: The Federal rules restrict any use of the information to criminally investigate or prosecute any alcohol or drug abuse patient.[facility] the event this information is protected by the Federal Confidentiality of Alcohol and Drug Abuse Patient Records regulations: The Federal rules restrict any use of the information to criminally investigate or prosecute any alcohol or drug abuse patient.[facility] the event this information is protected by the Federal Confidentiality of Alcohol and Drug Abuse Patient Records regulations: The Federal rules restrict any use of the information to criminally investigate or prosecute any alcohol or drug abuse patient.[facility] the event this information is protected by the Federal Confidentiality of Alcohol and Drug Abuse Patient Records regulations: The Federal rules restrict any use of the information to criminally investigate or prosecute any alcohol or drug abuse patient.[facility] the event this information is protected by the Federal Confidentiality of Alcohol and Drug Abuse Patient Records regulations: The Federal rules restrict any use of the information to criminally investigate or prosecute any alcohol or drug abuse patient.[facility] the event this information is protected by the Federal Confidentiality of Alcohol and Drug Abuse Patient Records regulations: The Federal rules restrict any use of the information to criminally investigate or prosecute any alcohol or drug abuse patient.[facility] the event this information is protected by the Federal Confidentiality of Alcohol and Drug Abuse Patient Records regulations: The Federal rules restrict any use of the information to criminally investigate or prosecute any alcohol or drug abuse patient.[facility] the event this information is protected by the Federal Confidentiality of Alcohol and Drug Abuse Patient Records regulations: The Federal rules restrict any use of the information to criminally investigate or prosecute any alcohol or drug abuse patient.[facility] the event this information is protected by the Federal Confidentiality of Alcohol and Drug Abuse Patient Records regulations: The Federal rules restrict any use of the information to criminally investigate or prosecute any alcohol or drug abuse patient.[facility] the event this information is protected by the Federal Confidentiality of Alcohol and Drug Abuse Patient Records regulations: The Federal rules restrict any use of the information to criminally investigate or prosecute any alcohol or drug abuse patient.[facility]In the event this information is protected by the Federal Confidentiality of Alcohol and Drug Abuse Patient Records regulations: The Federal rules restrict any use of the information to criminally investigate or prosecute any alcohol or drug abuse patient.[facility]In the event this information is protected by the Federal Confidentiality of Alcohol and Drug Abuse Patient Records regulations: The Federal rules restrict any use of the information to criminally investigate or prosecute any alcohol or drug abuse patient.[facility] the event this information is protected by the Federal Confidentiality of Alcohol and Drug Abuse Patient Records regulations: The Federal rules restrict any use of the information to criminally investigate or prosecute any alcohol or drug abuse patient.[facility] Reason for Visit (unrecogniz ed section and content) Reason Comments medication clarification Reason Onset Date Comments Refill Request 07/20/2021 Reason Comments Refill Request Reason Comments Established Patient 3 month follow up- l abs Reason Comments Connor Wong Refill Reason Comments FMLA Paperwork Reason Comments Follow Up Reason Comments Established Patient Reason Comments Medication Problem Reason Comments Medicare Wellness Exam Reason Comments Orders Reason Onset Date Comments Population Health Navigation Outreach 04/10/2022 O KAELA PCSA Reason Comments Recheck 4 month follow up Reason Comments letter to be excused Jury duty Reason Onset Date Comments Refill Request 08/06/2022 Reason Comments Derm Problem Reason Onset Date Comments Refill Request 10/01/2022 Reason Comments Patient Question Reason Comments Referral Request Reason Comments Established Patient Callous pain Pain Callous pain Reason Comments F/U 6 months Reason Onset Date Comments Population Health Navigation Outreach 01/14/2023 [facility] G[facility] Reason Comments Results Reason Onset Date Comments Refill Request 03/13/2023 Care Teams (unrecognized sec tion and content) Science Liaison Relationship Specialty Start Date End Date Krishna Reynolds MD [address] [place], [place] [id number] PCP - General 08/25/09 Son Deluna [address] [facility] [address] [place] [phone] Cardiology 02/08/20 Fabrice Wadsworth MD [address] [place], [place] [id number] Nephrology 02/10/20 Mitchel Aleman [address] [place] [address] Physician Ophthalmology 03/30/20 Gary Chandler DPM [address] [facility] [place] [phone] Referring Podiatry 08/01/20 Science Liaison Relationship Specialty Start Date End Date Krishna Reynolds MD [address] [place], [place] [id number] PCP - General 08/25/09 Son Deluna [address] [facility] [address] [place] [phone] Cardiology 02/08/20 Fabrice Wadsworth MD [address] [place] [address] Nephrology 02/10/20 Mitchel Aleman [facility] [place], [place] [address] Physician Ophthalmology 03/30/20 Gary Chandler, ARELIS [address] [place] [phone] Referring Podiatry 08/01/20 Science Liaison Relationship Specialty Start Date End Date Krishna Reynolds MD [address] [place], [place] [address] [id number] PCP - General 08/25/09 Son Deluna [address] [place] [address] Cardiology 02/08/20 Fabrice Wadsworth MD [address] [place], [place] [phone] Nephrology 02/10/20 Mitchel Aleman [facility] [place], [place] [id number] Physician Ophthalmology 03/30/20 Gary Chandler, ARELIS [address] [place] [phone] Referring Podiatry 08/01/20 Science Liaison Relationship Specialty Start Date End Date Krishna Reynolds MD [address] [place] [address] PCP - General 08/25/09 Son Deluna [address] [place] [address] Cardiology 02/08/20 Fabrice Wadsworth MD [address] [place] [address] Nephrology 02/10/20 Mitchel Aleman [address] [place], [place] [address] Physician Ophthalmology 03/30/20 Gary Chandler, ARELIS [address] [place] [phone] Referring Podiatry 08/01/20 Science Liaison Relationship Specialty Start Date End Date Krishna Reynolds MD [address] [place], [place] [id number] PCP - General 08/25/09 Son Deluna [address] [place] [address] Cardiology 02/08/20 Fabrice Wadsworth MD [address] [place] [address] Nephrology 02/10/20 Mitchel Aleman [address] [place], [place] [id number] Physician Ophthalmology 03/30/20 Gary Chandler DPM [address] [place] [phone] Referring Podiatry 08/01/20 Science Liaison Relationship Specialty Start Date End Date Krishna Reynolds MD [address] [place] [address] PCP - General 08/25/09 Son Deluna [address] [place] [address] Cardiology 02/08/20 Fabrice Wadsworth MD [address] [place] [address] Nephrology 02/10/20 Mitchel Aleman [address] [place] [address] Physician Ophthalmology 03/30/20 Gary Chandler, ARELIS [address] [place] [phone] Referring Podiatry 08/01/20 Science Liaison Relationship Specialty Start Date End Date Krishna Reynolds MD [address] [place] [address] PCP - General 08/25/09 Son Deluna [address] [place] [address] Cardiology 02/08/20 Fabrice Wadsworth MD [address] [place] [address] Nephrology 02/10/20 Mitchel Aleman [address] [place], [place] [address] Physician Ophthalmology 03/30/20 Gary Chandler DPM [address] [place] [phone] Referring Podiatry 08/01/20 Science Liaison Relationship Specialty Start Date End Date Krishna Reynolds MD [address] [place] [address] PCP - General 08/25/09 Son Deluna [address] [place] [address] Cardiology 02/08/20 Fabrice Wadsworth MD [address] [place] [address] Nephrology 02/10/20 Mitchel Aleman [address] [place], [place] [address] Physician Ophthalmology 03/30/20 Gary Chandler DPM [address] [place] [phone] Referring Podiatry 08/01/20 Science Liaison Relationship Specialty Start Date End Date Krishna Reynolds MD [address] [place] [address] PCP - General 08/25/09 Son Deluna [address] [address] [place] [address] Cardiology 02/08/20 Fabrice Wadsworth MD [address] [place] [address] Nephrology 02/10/20 Mitchel Aleman [address] [place], [place] [id number] Physician Ophthalmology 03/30/20 Gary Chandler DPM [address] [place] [phone] Referring Podiatry 08/01/20 Science Liaison Relationship Specialty Start Date End Date Krishna Reynolds MD [address] [place] [address] PCP - General 08/25/09 Son Deluna [address] [place] [address] Cardiology 02/08/20 Fabrice Wadsworth MD [address] [place] [address] Nephrology 02/10/20 Mitchel Aleman [address] [place], [place] 155081 Physician Ophthalmology 03/30/20 Gary Chandler DPM [address] [place] [phone] Referring Podiatry 08/01/20 Science Liaison Relationship Specialty Start Date End Date Krishna Reynolds MD [address] [place] [address] PCP - General 08/25/09 Son Deluna [address] [place] [address] Cardiology 02/08/20 Fabrice Wadsworth MD [address] [place], [place] [phone] Nephrology 02/10/20 Mitchel Aleman [address] [place], [place] [address]271 Physician Ophthalmology 03/30/20 Gary Chandler DPM [address] [place] [phone] Referring Podiatry 08/01/20 Science Liaison Relationship Specialty Start Date End Date Krishna Reynolds MD [address] [place] [address] PCP - General 08/25/09 Son Deluna [address] [place] [address] Cardiology 02/08/20 Fabrice Wadsworth MD [address] [place], [place] [id number] [phone] Nephrology 02/10/20 Mitchel Aleman [address] [place], [place] [address] Physician Ophthalmology 03/30/20 Gary Chandler DPM [address] [place] [phone] Referring Podiatry 08/01/20 Science Liaison Relationship Specialty Start Date End Date Krishna Reynolds MD [address] [place] [address] PCP - General 08/25/09 Son Deluna [address] [facility] [address] [facility] [address] [place] [address] Cardiology 02/08/20 Fabrice Wadsworth MD [address] [place], [place] [id number] [phone] Nephrology 02/10/20 Mitchel Aleman [facility] [place], [place] [phone] Physician Ophthalmology 03/30/20 Gary Chandler DPM [address] [place] [phone] Referring Podiatry 08/01/20 Science Liaison Relationship Specialty Start Date End Date Krishna Reynolds MD [address] [place] [address] PCP - General 08/25/09 Son Deluna [address] [facility] [address] [place] [phone] Cardiology 02/08/20 Fabrice Wadsworth MD [address] [place], [place] [phone]- Nephrology 02/10/20 Mitchel Aleman [address] [place] [address] Physician Ophthalmology 03/30/20 Gary Chandler DPM [address] [place] [phone] Referring Podiatry 08/01/20 Science Liaison Relationship Specialty Start Date End Date Krishna Reynolds MD [address] [place] [address] PCP - General 08/25/09 Son Deluna [address] [facility] [facility] [place] [address] Cardiology 02/08/20 Fabrice Wadsworth MD [facility] [address] [place], [place] [phone] Nephrology 02/10/20 Mitchel Aleman [address] [place] [address] Physician Ophthalmology 03/30/20 Gary Chandler DPM [address] [place] [phone] Referring Podiatry 08/01/20 Science Liaison Relationship Specialty Start Date End Date Krishna Reynolds MD [address] [facility] [place] [address] PCP - General 08/25/09 [facility] [address] [facility] [address] [place] [address] Cardiology 02/08/20 Fabrice Wadsworth MD [address] [place], [place] [phone] Nephrology 02/10/20 Mitchel Aleman [address] [place] [address] Physician Ophthalmology 03/30/20 Gary Chandler DPM [address] [facility] [address] [place] [phone] Referring Podiatry 08/01/20 Science Liaison Relationship Specialty Start Date End Date Krishna Reynolds MD [address] [facility] [place] [address] PCP - General 08/25/09 Son Deluna [address] [address] Cardiology 02/08/20 Fabrice Wadsworth MD [address] [place], [place] [phone] Nephrology 02/10/20 Mitchel Aleman [address] [place] [address] Physician Ophthalmology 03/30/20 Gary Chandler DPM [address] [place] [phone] Referring Podiatry 08/01/20 Science Liaison Relationship Specialty Start Date End Date Krishna Reynolds MD [address] [place], [place] [address]91 PCP - General 08/25/09 Son Deluna [address] [place] [phone] Cardiology 02/08/20 Fabrice Wadsworth MD [address] [place], [place] [phone] Nephrology 02/10/20 Mitchel Aleman [address] [place] [address] Physician Ophthalmology 03/30/20 Gary Chandler DPM [address] [facility] [address] [place] [phone] Referring Podiatry 08/01/20 Science Liaison Relationship Specialty Start Date End Date Krishna Reynolds MD [address] [facility] [place] [address] PCP - General 08/25/09 Son Deluna [address] [address] Cardiology 02/08/20 Fabrice Wadsworth MD [address] [place], [place] [phone] Nephrology 02/10/20 Mitchel Aleman [address] [place], [place] [address] Physician Ophthalmology 03/30/20 Gary Chandler DPM [address] [place] [phone] Referring Podiatry 08/01/20 Science Liaison Relationship Specialty Start Date End Date Krishna Reynolds MD [address] [place] [address] PCP - General 08/25/09 Son Deluna [address] [facility] [address] [place] [phone] Cardiology 02/08/20 Fabrice Wadsworth MD [address] [place], [place] [phone] Nephrology 02/10/20 Mitchel Aleman MD [address] [place], [place] [address] Physician Ophthalmology 03/30/20 Gary Chandler DPM [address] [place] [phone] Referring Podiatry 08/01/20 Science Liaison Relationship Specialty Start Date End Date Krishna Reynolds MD [address] [place] [address] PCP - General 08/25/09 Son Deluna MD [address] [place] [address] Cardiology 02/08/20 Fabrice Wadsworth MD [address] [place] [address] Nephrology 02/10/20 Mitchel Aleman MD [address] [place] [address] Physician Ophthalmology 03/30/20 Gary Chandler DPM [address] [place] [phone] Referring Podiatry 08/01/20 Science Liaison Relationship Specialty Start Date End Date Krishna Reynolds MD [address] [facility] [place] [address] PCP - General 08/25/09 Son Deluna MD [address] [place] [address] Cardiology 02/08/20 Fabrice Wadsworth MD [address] [place] [address] Nephrology 02/10/20 Mitchel Aleman MD [address] [facility], [place] 43[address] Physician Ophthalmology 03/30/20 Gary Chandler DPM [address] [place] [phone] (work) Referring Podiatry 08/01/20 FOR RECORDS PERTAINING TO PATIENTS WHO ARE OR HAVE BEEN ENROLLED IN A CHEMICAL DEPENDENCY/SUBSTANCEABUSE PROGRAM, SOME INFORMATION MAY BE OMITTED. This clinical summary was aggregated from multiple sources. Caution should be exercised in using it in the provision of clinical care. This summary normalizes information from multiple sources, and as a consequence, information in this document may materially change the coding, format and clinical context of patient data. In addition, data may be omitted in some cases. CLINICAL DECISIONS SHOULD BE BASED ON THE PRIMARY CLINICAL RECORDS. [employer] [facility]. provides no warranty or guarantee of the accuracy or completeness of information in this document.
[2023-05-31 07:33] LABS: Hemoglobin A1c 5.7 % (3.8-5.6)
[2023-05-31 07:47] LABS: ALB/GLOB Ratio 0.8 RATIO (0.9-2.4); AST(SGOT) 28 U/L (15-37); Alanine Aminotransfer ALT/SGPT 27 U/L (16-61); Albumin, Serum 3.3 g/dL (3.2-5.0); Alkaline Phosphatase 85 U/L (45-117); Anion Gap 9 (5-15); BUN 15 mg/dL (7-18); BUN/Creat Ratio 14.4 RATIO (10-20); Calcium,Total 9.7 mg/dL (8.5-10.1); Chloride 106 mmol/L (98-107); Cholesterol 182 mg/dL (200); Creatinine, Serum 1.04 mg/dL (0.70-1.30); EST Glomerular Filtration Rate 74 mL/min (>60); Est Glom Filt Rate - Afr Amer 90 mL/min (>60); Globulin 3.9 g/dL (2.2-4.2); Glucose 115 mg/dL (74-106); High Density Lipoprotein 43 mg/dL; Potassium 4.2 mmol/L (3.5-5.1); Protein, Total 7.2 g/dL (6.4-8.2); Sodium Level 139 mmol/L (136-145); Triglycerides 149 mg/dL; Very Low Density Lipoprotein 30 mg/dL (5-40)
== END | disposition home or self-care (01) ==
LOC: LAB 05:59
PROVIDERS: PCP Internal Medicine; Visit Provider Internal Medicine
DX: E78.49 Other hyperlipidemia (principal); E11.40 Type 2 diabetes mellitus with diabetic neuropathy, unspecified; Z79.4 Long term (current) use of insulin
CPT/HCPCS: 36415; 80053; 80061; 83036

== ENCOUNTER 2023-06-20 08:00 | Outpatient (RCR) | payer SELFPAY ==
[2020-12-01 05:55] VITALS: BMI 45.8
== END 2023-06-23 23:59 ==
LOC: CR 08:00
PROVIDERS: PCP Internal Medicine; Referring Provider Internal Medicine; Visit Provider Internal Medicine
DX: Z00.00 Encounter for general adult medical examination without abnormal findings (principal)

== ENCOUNTER 2023-07-23 08:00 | Outpatient (RCR) | payer SELFPAY ==
[2020-12-01 05:55] VITALS: BMI 45.8
== END 2023-07-23 23:59 ==
LOC: CR 08:00
PROVIDERS: PCP Internal Medicine; Referring Provider Internal Medicine; Visit Provider Internal Medicine
DX: Z00.00 Encounter for general adult medical examination without abnormal findings (principal)

== ENCOUNTER → 2023-08-16 | Outpatient (CLI) | payer MEDICARE, OTHER, SELFPAY ==
[2020-12-01 05:55] VITALS: BMI 45.8
[2023-08-16 07:17] LABS: Hematocrit 44.9 % (40-54); Hemoglobin 14.9 g/dL (13.0-16.5); Mean Corp Hgb Conc 33.2 g/dL (32-36); Mean Corpuscular Volume 90.3 fL (80-94); Mean Platelet Vol. 9.1 fl (6.2-12.0); Platelet Count 249 K/mm3 (150-450); RBC Distribution Width CV 13.2 % (11.6-14.6); RBC Distribution Width SD 43.1 fl (35.1-43.9); Red Blood Count 4.97 M/mm3 (4.6-6.2); White Blood Count 4.4 K/mm3 (4.4-11.0)
[2023-08-16 07:47] LABS: Protein, Urine (Random) < 6.0 mg/dL (<11.9)
[2023-08-16 07:49] LABS: Albumin, Serum 3.2 g/dL (3.2-5.0); BUN 16 mg/dL (7-18); BUN/Creat Ratio 15.2 RATIO (10-20); Calcium,Total 9.4 mg/dL (8.5-10.1); Chloride 102 mmol/L (98-107); Creatinine, Serum 1.05 mg/dL (0.70-1.30); EST Glomerular Filtration Rate 74 mL/min (>60); Est Glom Filt Rate - Afr Amer 89 mL/min (>60); Glucose 80 mg/dL (74-106); Phosphorus 3.2 mg/dL (2.5-4.9); Potassium 3.5 mmol/L (3.5-5.1); Sodium Level 136 mmol/L (136-145)
== END | disposition home or self-care (01) ==
LOC: LAB 06:19
PROVIDERS: PCP Internal Medicine; Referring Provider Internal Medicine Nephrology; Visit Provider Internal Medicine Nephrology
DX: N18.31 Chronic kidney disease, stage 3a (principal)
CPT/HCPCS: 36415; 80069; 82570; 84156; 85027

== ENCOUNTER 2023-08-22 08:00 | Outpatient (RCR) | payer SELFPAY ==
[2020-12-01 05:55] VITALS: BMI 45.8
== END 2023-08-23 23:59 ==
LOC: CR 08:00
PROVIDERS: PCP Internal Medicine; Referring Provider Internal Medicine; Visit Provider Internal Medicine
DX: Z00.00 Encounter for general adult medical examination without abnormal findings (principal)

== ENCOUNTER 2023-09-12 08:00 | Outpatient (RCR) | payer SELFPAY ==
[2020-12-01 05:55] VITALS: BMI 45.8
== END 2023-09-22 23:59 ==
LOC: CR 08:00
PROVIDERS: PCP Internal Medicine; Referring Provider Internal Medicine; Visit Provider Internal Medicine
DX: Z00.00 Encounter for general adult medical examination without abnormal findings (principal)

== ENCOUNTER 2023-10-22 08:00 | Outpatient (RCR) | payer SELFPAY ==
[2020-12-01 05:55] VITALS: BMI 45.8
== END 2023-10-23 23:59 ==
LOC: CR 08:00
PROVIDERS: PCP Internal Medicine; Referring Provider Internal Medicine; Visit Provider Internal Medicine
DX: Z00.00 Encounter for general adult medical examination without abnormal findings (principal)

== ENCOUNTER 2023-11-21 08:00 | Outpatient (RCR) | payer SELFPAY ==
[2020-12-01 05:55] VITALS: BMI 45.8
== END 2023-11-23 23:59 ==
LOC: CR 08:00
PROVIDERS: PCP Internal Medicine; Referring Provider Internal Medicine; Visit Provider Internal Medicine
DX: Z00.00 Encounter for general adult medical examination without abnormal findings (principal)

== ENCOUNTER → 2023-12-04 | Outpatient (CLI) | payer MEDICARE, OTHER, SELFPAY ==
[2020-12-01 05:55] VITALS: BMI 45.8
[2023-12-04 07:11] LABS: Anion Gap 4 (5-15); BUN 16 mg/dL (7-18); BUN/Creat Ratio 16.4 RATIO (10-20); Calcium,Total 9.3 mg/dL (8.5-10.1); Chloride 104 mmol/L (98-107); Cholesterol 152 mg/dL (200); Creatinine, Serum 0.98 mg/dL (0.70-1.30); EST Glomerular Filtration Rate 80 mL/min (>60); Est Glom Filt Rate - Afr Amer 97 mL/min (>60); Glucose 79 mg/dL (74-106); High Density Lipoprotein 42 mg/dL; Sodium Level 135 mmol/L (136-145); Triglycerides 126 mg/dL; Very Low Density Lipoprotein 25 mg/dL (5-40)
[2023-12-04 07:42] LABS: Hemoglobin A1c 5.6 % (3.8-5.6)
== END | disposition home or self-care (01) ==
LOC: LAB 05:54
PROVIDERS: PCP Internal Medicine; Referring Provider Internal Medicine; Visit Provider Internal Medicine
DX: E11.40 Type 2 diabetes mellitus with diabetic neuropathy, unspecified (principal); Z79.4 Long term (current) use of insulin; E78.49 Other hyperlipidemia
CPT/HCPCS: 36415; 80048; 80061; 83036

== ENCOUNTER 2023-12-19 08:00 | Outpatient (RCR) | payer SELFPAY ==
[2020-12-01 05:55] VITALS: BMI 45.8
== END 2023-12-23 23:59 ==
LOC: CR 08:00
PROVIDERS: PCP Internal Medicine; Referring Provider Internal Medicine; Visit Provider Internal Medicine
DX: Z00.00 Encounter for general adult medical examination without abnormal findings (principal)

== ENCOUNTER 2024-01-23 08:00 | Outpatient (RCR) | payer SELFPAY ==
[2020-12-01 05:55] VITALS: BMI 45.8
== END 2024-01-23 23:59 ==
LOC: CR 08:00
PROVIDERS: PCP Internal Medicine; Referring Provider Internal Medicine; Visit Provider Internal Medicine
DX: Z00.00 Encounter for general adult medical examination without abnormal findings (principal)

== ENCOUNTER 2024-02-18 08:00 | Outpatient (RCR) | payer SELFPAY ==
[2020-12-01 05:55] VITALS: BMI 45.8
== END 2024-02-22 23:59 ==
LOC: CR 08:00
PROVIDERS: PCP Internal Medicine; Referring Provider Internal Medicine; Visit Provider Internal Medicine
DX: Z00.00 Encounter for general adult medical examination without abnormal findings (principal)

== ENCOUNTER 2024-03-24 08:00 | Outpatient (RCR) | payer SELFPAY ==
[2020-12-01 05:55] VITALS: BMI 45.8
== END 2024-03-24 23:59 ==
LOC: CR 08:00
PROVIDERS: PCP Internal Medicine; Referring Provider Internal Medicine; Visit Provider Internal Medicine
DX: Z00.00 Encounter for general adult medical examination without abnormal findings (principal)

== ENCOUNTER 2024-04-23 08:00 | Outpatient (RCR) | payer SELFPAY ==
[2020-12-01 05:55] VITALS: BMI 45.8
== END 2024-04-24 23:59 ==
LOC: CR 08:00
PROVIDERS: PCP Internal Medicine; Referring Provider Internal Medicine; Visit Provider Internal Medicine
DX: Z00.00 Encounter for general adult medical examination without abnormal findings (principal)

== ENCOUNTER 2024-05-21 08:00 | Outpatient (RCR) | payer SELFPAY ==
[2020-12-01 05:55] VITALS: BMI 45.8
== END 2024-05-22 23:59 ==
LOC: CR 08:00
PROVIDERS: PCP Internal Medicine; Referring Provider Internal Medicine; Visit Provider Internal Medicine
DX: Z00.00 Encounter for general adult medical examination without abnormal findings (principal)

== ENCOUNTER → 2024-06-03 | Outpatient (CLI) | payer MEDICARE, OTHER, SELFPAY ==
[2020-12-01 05:55] VITALS: BMI 45.8
[2024-06-03 08:19] LABS: Hemoglobin A1c 6.1 % (<=5.6)
[2024-06-03 08:23] LABS: ALB/GLOB Ratio 1.3 RATIO (0.9-2.4); AST(SGOT) 29 U/L (<=37); Alanine Aminotransfer ALT/SGPT 19 U/L (<=46); Albumin, Serum 3.9 g/dL (3.4-4.8); Alkaline Phosphatase 74 U/L (40-129); Anion Gap 12 (5-15); BUN 15 mg/dL (4-19); BUN/Creat Ratio 16.3 RATIO (10-20); Calcium,Total 9.1 mg/dL (7.6-11.0); Carbon Dioxide 24.3 mmol/L (21.0-32.0); Chloride 102 mmol/L (98-108); Cholesterol 171 mg/dL (<=200); Creatinine, Serum 0.94 mg/dL (0.70-1.20); EST Glomerular Filtration Rate 85 (>60); Globulin 2.9 g/dL (2.2-4.2); Glucose 80 mg/dL (70-99); High Density Lipoprotein 43 mg/dL; Low Density Lipoprotein Calc. 96 mg/dL; Protein, Total 6.8 g/dL (5.9-8.4); Sodium Level 139 mmol/L (133-145); Total Bilirubin 0.83 mg/dL (0.00-1.30); Triglycerides 161 mg/dL; Very Low Density Lipoprotein 32 mg/dL (5-40)
[2024-06-03 14:18] LABS: Microalbumin:Creatinine Ratio 732.1 mg/g CRE
== END | disposition home or self-care (01) ==
LOC: LAB 06:01
PROVIDERS: PCP Internal Medicine; Referring Provider Internal Medicine; Visit Provider Internal Medicine
DX: E11.40 Type 2 diabetes mellitus with diabetic neuropathy, unspecified (principal); Z79.4 Long term (current) use of insulin
CPT/HCPCS: 36415; 80053; 80061; 82043; 82570; 83036

== ENCOUNTER 2024-06-18 08:00 | Outpatient (RCR) | payer SELFPAY ==
[2020-12-01 05:55] VITALS: BMI 45.8
== END 2024-06-22 23:59 ==
LOC: CR 08:00
PROVIDERS: PCP Internal Medicine; Referring Provider Internal Medicine; Visit Provider Internal Medicine
DX: Z00.00 Encounter for general adult medical examination without abnormal findings (principal)

== ENCOUNTER 2024-07-21 08:00 | Outpatient (RCR) | payer SELFPAY ==
[2020-12-01 05:55] VITALS: BMI 45.8
== END 2024-07-22 23:59 ==
LOC: CR 08:00
PROVIDERS: PCP Internal Medicine; Referring Provider Internal Medicine; Visit Provider Internal Medicine
DX: Z00.00 Encounter for general adult medical examination without abnormal findings (principal)

== ENCOUNTER → 2024-08-12 | Outpatient (CLI) | payer MEDICARE, OTHER, SELFPAY ==
[2020-12-01 05:55] VITALS: BMI 45.8
[2024-08-12 07:38] LABS: Hematocrit 44.9 % (40-54); Hemoglobin 15.1 g/dL (13.0-16.5); Mean Corp Hgb Conc 33.6 g/dL (32-36); Mean Corpuscular Hgb 30.6 pg (27.0-32.0); Mean Corpuscular Volume 91.1 fL (80-94); Mean Platelet Vol. 9.1 fl (6.2-12.0); Platelet Count 261 K/mm3 (150-450); RBC Distribution Width SD 43.3 fl (35.1-43.9); Red Blood Count 4.93 M/mm3 (4.6-6.2); White Blood Count 5.4 K/mm3 (4.4-11.0)
[2024-08-12 08:01] LABS: Protein, Urine (Random) < 6.0 mg/dL (0.0-12.0); Protein:Creat Ratio UNABLE TO CALCULATE mg/g CRE (0-200)
[2024-08-12 08:10] LABS: Albumin, Serum 3.8 g/dL (3.4-4.8); Anion Gap 12 (5-15); BUN 21 mg/dL (4-19); BUN/Creat Ratio 20.7 RATIO (10-20); Calcium,Total 9.3 mg/dL (7.6-11.0); Carbon Dioxide 23.6 mmol/L (21.0-32.0); Chloride 99 mmol/L (98-108); Creatinine, Serum 1.02 mg/dL (0.70-1.20); EST Glomerular Filtration Rate 77 (>60); Glucose 140 mg/dL (70-99); Phosphorus 2.9 mg/dL (2.7-4.5); Potassium 4.4 mmol/L (3.3-5.1); Sodium Level 135 mmol/L (133-145)
== END | disposition home or self-care (01) ==
LOC: LAB 06:20
PROVIDERS: PCP Internal Medicine; Referring Provider Internal Medicine Nephrology; Visit Provider Internal Medicine Nephrology
DX: N18.31 Chronic kidney disease, stage 3a (principal)
CPT/HCPCS: 36415; 80069; 82570; 84156; 85027

== ENCOUNTER 2024-08-20 08:00 | Outpatient (RCR) | payer SELFPAY ==
[2020-12-01 05:55] VITALS: BMI 45.8
== END 2024-08-22 23:59 ==
LOC: CR 08:00
PROVIDERS: PCP Internal Medicine; Referring Provider Internal Medicine; Visit Provider Internal Medicine
DX: Z00.00 Encounter for general adult medical examination without abnormal findings (principal)

== ENCOUNTER 2024-09-17 08:00 | Outpatient (RCR) | payer SELFPAY ==
[2020-12-01 05:55] VITALS: BMI 45.8
== END 2024-09-21 23:59 ==
LOC: CR 08:00
PROVIDERS: PCP Internal Medicine; Referring Provider Internal Medicine; Visit Provider Internal Medicine
DX: Z00.00 Encounter for general adult medical examination without abnormal findings (principal)

== ENCOUNTER 2024-10-22 08:00 | Outpatient (RCR) | payer SELFPAY ==
[2020-12-01 05:55] VITALS: BMI 45.8
== END 2024-10-22 23:59 ==
LOC: CR 08:00
PROVIDERS: PCP Internal Medicine; Referring Provider Internal Medicine; Visit Provider Internal Medicine
DX: Z00.00 Encounter for general adult medical examination without abnormal findings (principal)

== ENCOUNTER 2024-11-19 08:00 | Outpatient (RCR) | payer SELFPAY ==
[2020-12-01 05:55] VITALS: BMI 45.8
== END 2024-11-22 23:59 ==
LOC: CR 08:00
PROVIDERS: PCP Internal Medicine; Referring Provider Internal Medicine; Visit Provider Internal Medicine
DX: Z00.00 Encounter for general adult medical examination without abnormal findings (principal)

== ENCOUNTER → 2024-12-02 | Outpatient (CLI) | payer MEDICARE, OTHER, SELFPAY ==
[2020-12-01 05:55] VITALS: BMI 45.8
--- OUTSIDE RECORDS SUMMARY | 2024-12-02 05:58 | XMS RPT_ITS | CCD ---
Author Organization [facility] Care Team Providers Care Collar Padder Blindstitch Name Role Phone Maddy LAST, Brea Savage Unavailable Regi KRUEGER, Son Lomax Unavailable Marva Rodriguez Unavailable Unavailable Marva Rodriguez Unavailable Unavailable Gisella LAST, Mojgan George Unavailable Unavailable [facility] Nurse Unavailable Unavailable Krishna Reynolds MD Primary Care Provider Son Deluna Unavailable Fabrice Wadsworth MD Unavailable Mitchel Aleman Unavailable Chandler DPM, Gary J Unavailable Krishna Reynolds MD Primary Care Provider Son Deluna Unavailable Fabrice Wadsworth MD Unavailable Mitchel Aleman Unavailable Chandler DPM, Gary J Unavailable Son Deluna Unavailable Fabrice Wadsworth MD Unavailable Mitchel Aleman Unavailable Chandler DPM, Gary J Unavailable Krishna Reynolds MD Primary Care Provider Son Deluna Unavailable Fabrice Wadsworth MD Unavailable Mitchel Aleman Unavailable Chandler DPM, Gary J Unavailable Dr. Krishna Reynolds Primary Care Provider Dr. Krishna Reynolds Referring Provider Biedenharn, PA Dalia Attending Provider Biedenharn, PA Dalia Other Provider [phone] Dr. Gucci Sanabria Attending Provider [phone] [place], PA Dalia Attending Provider [phone] Beach, PA Dalia Other Provider Beach, PA Dalia Referring Provider [phone] Love KRUEGER, Mitchel Ball Unavailable Dr. Krishna Reynolds Primary Care Provider Dr. Krishna Reynolds Referring Provider Beach, PA Dalia Attending Provider [phone] [place], PA Dalia Other Provider Dr. Gucci Sanabria Attending Provider [phone] [place], PA Dalia Referring Provider [phone] Regi KRUEGER, Son Lomax Unavailable Dr. Krishna Reynolds Primary Care Provider Dr. Krishna Reynolds Referring Provider Beach, PA Dalia Attending Provider [phone] Yong, ULISES Gómez Other Provider Dr. Krishna Reynolds Primary Care Provider Dr. Krishna Reynolds Referring Provider [place], PA Dalia Attending Provider [phone] Krishna Reynolds MD Primary Care Provider Mitchel Aleman MD Unavailable Gary Chandler DPM Unavailable [facility] 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, Leila M Unavailable Dr. Krishna Reynolds MD Primary Care Provider Rodolfo KRUEGER, Dr. Keller Attending Provider Rodolfo KRUEGER, Dr. Keller Referring Provider Rodolfo KRUEGER, Dr. Keller Primary Care Provider Rodolfo KRUEGER, Dr. Keller Attending Provider Rodolfo KRUEGER, Dr. Keller Referring Provider Rodolfo KRUEGER, Dr. Keller Primary Care Provider Rodolfo KRUEGER, Dr. Keller Attending Provider Rodolfo KRUEGER, Dr. Keller Referring Provider Nayana KRUEGER, Dr. Muir Attending Provider Nayana KRUEGER, Dr. Muir Referring Provider Rodolfo KRUEGER, Dr. Keller Primary Care Provider Rodolfo KRUEGER, Dr. Keller Attending Provider Rodolfo KRUEGER, Dr. Keller Referring Provider Rodolfo KRUEGER, Dr. Keller Primary Care Provider Rodolfo KRUEGER, Dr. Keller Attending Provider Rodolfo KRUEGER, Dr. Keller Referring Provider Rodolfo KRUEGER, Dr. Keller Primary Care Provider Rodolfo KRUEGER, Dr. Keller Attending Provider Rodolfo KRUEGER, Dr. Keller Referring Provider Rodolfo KRUEGER, Dr. Keller Primary Care Provider Rodolfo KRUEGER, Dr. Keller Attending Provider Rodolfo KRUEGER, Dr. Keller Referring Provider Krishna Reynolds Attending Unavailable Krishna Reynolds Referring Unavailable Krishna Reynolds Primary Care Unavailable Krishna Reynolds Attending Unavailable Krishna Reynolds Referring Unavailable Reynolds, Krishna Primary Care Unavailable Reynolds, Krishna Attending Unavailable Reynolds, Krishna Referring Unavailable Reynolds, Krishna Primary Care Unavailable Reynolds, Krishna Attending Unavailable Reynolds, Krishna Primary Care Unavailable Reynolds, Krishna Referring Unavailable Reynolds, Krishna Referring Unavailable Reynolds, Krishna Primary Care Unavailable Reynolds, Krishna Attending Unavailable Reynolds, Krishna Referring Unavailable Reynolds, Krishna Primary Care Unavailable Reynolds, Krishna Attending Unavailable Reynolds, Krishna Referring Unavailable Reynolds, Krishna Primary Care Unavailable Reynolds, Krishna Attending Unavailable Reynolds, Krishna Referring Unavailable Reynolds, Krishna Attending Unavailable Reynolds, Krishna Primary Care Unavailable Reynolds, Krishna Referring Unavailable Reynolds, Krishna Attending Unavailable Reynolds, Krishna Primary Care Unavailable Reynolds, Krishna Attending Unavailable Reynolds, Krishna Referring Unavailable Reynolds, Krishna Primary Care Unavailable Reynolds, Krishna Referring Unavailable Reynolds, Krishna Attending Unavailable Reynolds, Krishna Primary Care Unavailable Reynolds, Krishna Attending Unavailable Reynolds, Krishna Referring Unavailable Reynolds, Krishna Primary Care Unavailable Reynolds, Krishna Referring Unavailable Reynolds, Krishna Attending Unavailable Reynolds, Krishna Primary Care Unavailable Reynolds, Krishna Attending Unavailable Reynolds, Krishna Referring Unavailable Reynolds, Krishna Primary Care Unavailable Reynolds, Krishna Referring Unavailable Reynolds, Krishna Attending Unavailable Reynolds, Krishna Primary Care Unavailable Nayana, Jayaprakas Referring Unavailable Nayana, Babatundeprajasvir Attending Unavailable Reynolds, Krishna Primary Care Unavailable Reynolds, Krishna Attending Unavailable Reynolds, Krishna Referring Unavailable Regulo Stover Consulting Unavailable Reynolds, Krishna Primary Care Unavailable Nayana, Dilipyaprakas Consulting Unavailable REYNOLDS, SOPHIE Primary Care Unavailable REGULO STOVER Referring Unavailable REGULO STOVER Attending Unavailable REYNOLDS, SOPHIE Attending Unavailable REYNOLDS, SOPHIE Primary Care Unavailable REYNOLDS, SOPHIE Primary Care Unavailable CHIUNDARABELLA George Attending Unavailable REYNOLDS, SOPHIE Attending Unavailable REYNOLDS, SOPHIE Primary Care Unavailable REYNOLDS, SOPHIE Attending Unavailable REYNOLDS, SOPHIE Primary Care Unavailable CHIUNDAARABELLA Attending Unavailable REYNOLDS, SOPHIE Primary Care Unavailable KRISHNA REYNOLDS Primary Care Unavailable REGULO STOVER Referring Unavailable KRISHNA REYNOLDS Primary Care Unavailable REGULO STOVER Referring Unavailable Allergies Allergy Classification Reported Allergen(s) Allergy Type Date of Onset Reaction(s) Facility Angiotensin 2 Receptor Blockers (ARB) (1 source) valsartan Drug Allergy 12-30-19 05 [facility] Angiotensin Converting Enzyme (ITA) Inhibitors (2 sources) Ramipril Drug Allergy 12-30-19 05 Intolerance [facility] Work Phone: metOLazone (1 source) metOLazone Drug Allergy 01-16-20 22 Rash [facility] Propofol (1 source) Propofol Drug Allergy 02-10-20 20 Other: See Comments [facility] Sulfamethoxazole / Trimethoprim (1 source) Sulfamethoxazole / Trimethoprim Drug Allergy 08-16-19 21 Hives [facility] (6 sources) acetaminophen / HYDROcodone Drug Allergy 12-20-19 13 Hives [facility] Work Phone: (18 sources) Contrast media; Translations: [RED DYE] food allergy 12-26-19 13 [facility] Work Phone: (6 sources) Hmg-Coa Reductase Inhibitors (Statins) drug allergy 12-20-19 13 muscle aches [facility] Work Phone: (12 sources) ramipril Drug Allergy 12-20-19 13 Fast HR [facility] Work Phone: (12 sources) valsartan Drug Allergy 12-20-19 13 Fast HR [facility] Work Phone: (7 sources) HMG-CoA reductase inhibitor; Translations: [LLGDINM-GDD-PSH REDUCTASE INHIBITORS] Drug Intolerance 06-18-19 12 Other: See Comments [facility] Work Phone: [phone] (20 sources) Propofol; Translations: [PROPOFOL] Drug Allergy 02-10-20 20 Other: See Comments [facility] Comment on above: i went crazy (20 sources) Ramipril; Translations: [RAMIPRIL] Drug Allergy 12-30-19 05 Intolerance [facility] Work Phone: (20 sources) Seasonal allergy; Translations: [SEASONAL ALLERGIES] Allergy to substance 08-05-19 13 Other: See Comments [facility] (20 sources) Sulfamethoxazole / Trimethoprim; Translations: [SULFAMETHOXAZOLE-T RIMETHOPRIM] Drug Allergy 08-16-19 21 [facility] (20 sources) valsartan; Translations: [VALSARTAN] Drug Allergy 12-30-19 05 Fast HR [facility] Work Phone: (20 sources) HYDROcodone Drug Allergy 06-25-19 21 [facility] (20 sources) Vuqyvan-Eed-Yqa Reductase Inhibitor; Translations: [Ihqiobz-Vhd-Jfi Reductase Inhibitor] Propensity to adverse reactions 06-25-19 21 Muscle aches [facility] (20 sources) HMG-CoA reductase inhibitor Drug Intolerance 06-18-19 12 Other: See Comments [facility] Work Phone: (20 sources) metOLazone; Translations: [METOLAZONE] Drug Allergy 01-16-20 22 Rash [facility] (1 source) HYDROcodone Drug Allergy 01-30-20 23 [facility] (1 source) Propofol Drug Allergy 01-30-20 23 [facility] (1 source) Ramipril Drug Allergy 01-30-20 23 [facility] (1 source) valsartan Drug Allergy 01-30-20 23 [facility] Medications Current Medications Medication Drug Class(es) Dates Sig (Normalized) Sig (Original) acetaminophen 325 mg oral tablet (20 sources) Start: 09-19-2019 Acetaminophen 325 MG tablet Active 500 mg PO Q4H as needed for Pain Score 1-10/Temp > 100.7 F 0 September 19, 2019 12:00am Start: 09-19-2019 take 500 mg by mouth every four hours Acetaminophen Active 500 MG PO Q4H September 19, 2019 12:00am 1 ml alirocumab 75 mg/ml auto-injector (20 sources) PCSK9 Inhibitor Start: 01-24-2024 End: 08-10-2025 inject 1 mL by subcutaneous injection every other week alirocumab (PRALUENT PEN) 75 mg/mL pen Indications: Coronary artery disease of [place] artery of [place] heart with stable angina pectoris , Atherosclerosis of aorta , Other hyperlipidemia , Statin intolerance Inject 1 mL subcutaneously every other week. 6 mL 3 08/10/2024 08/10/2025 Active Start: 11-18-2023 inject 1 mL by subcu taneous injection every other week alirocumab (PRALUENT PEN) 150 mg/mL pen Indications: Coronary artery disease of [place] artery of [place] heart with stable angina pectoris (HCC) , Other hyperlipidemia , Statin intolerance Inject 1 mL subcutaneously every other week. 6 mL 3 11/18/2023 Active Start: 03-12-2023 End: 11-18-2023 inject 1 mL by subcutaneous injection every other week alirocumab (PRALUENT PEN) 75 mg/mL pen Indications: Coronary artery disease of [place] artery of [place] heart with stable angina pectoris (HCC) , Other hyperlipidemia , Statin intolerance , Atherosclerosis of aorta (HCC) Inject 1 mL under the skin every other week. 6 mL 3 03/14/2023 11/18/2023 Discontinued Comment on above: Inject 1 mL under th e skin every other week. Inject 1 mL subcutan eously every other week. amLODIPine 2.5 mg oral tablet (20 sources) Dihydropyridine Calcium Channel Veronique Start: 01-30-20 take 0.5 tablet by mouth once daily, then take 5 mg by mouth once daily Amlodipine 10 mg tablet Discontinued 5 mg PO DAILY January 29, 2023 10:10am half of 5mg tab= 2.5mg daily Start: 01-29-2023 take 0.5 tablet by m outh once daily, then take 1 tablet by mouth once daily Amlodipine Active 5 MG PO DAILY January 29, 2023 10:10am half of 5mg tab= 2.5mg daily Start: 10-02-2022 End: 08-24-2024 take 1 tablet by mouth once daily amLODIPine (NORVASC) 2.5 mg tablet Indications: Essential hypertension Take 1 tablet by mouth once daily. 90 tablet 3 08/24/2024 Active Start: 10-01-2022 End: 10-01-2022 take 0.5 tablet by mouth once daily amLODIPine (NORVASC) 5 mg tablet Indications: Essential hypertension Take 0.5 tablets by mouth once daily. 90 tablet 3 10/01/2022 10/01/2022 Discontinued (Course of therapy completed) Start: 06-24-2020 End: 11-07-2023 take 5 mg by mouth once daily Amlodipine 10 MG tablet Discontinued 5 mg PO DAILY June 24, 2020 8:21am January 29, 2023 10:14am Start: 06-24-2020 End: 01-29-2023 take 5 mg by mouth once daily Amlodipine Discontinued 5 MG PO DAILY June 24, 2020 8:21am January 29, 2023 10:14am Start: 11-16-2019 End: 06-24-2020 take 1 tablet by mouth once daily Amlodipine 10 mg tablet Discontinued 10 mg PO DAILY 21 02November 16, 2019 12:00am June 24, 2020 8:22am Start: 02-06-2017 End: 10-01-2022 take 1 tablet by mouth once daily Amlodipine 5 mg tablet Discontinued 5 mg PO daily May 25, 2019 5:29pm September 15, 2019 1:28pm Comment on above: Take 1 tablet by marisa th once daily. Take 0.5 tablets by mouth once daily. ascorbic acid 1000 mg oral tablet (20 sources) Start: 05-02-2005 VITAMIN C 1,000 MG TAB Take one(1) tablet daily. 0 05/02/2005 Active Comment on above: Take one(1) tablet d aily. aspirin 81 mg delayed release oral tablet (20 sources) Nonsteroidal Anti-inflammatory Drug Start: 12-11-2023 take 1 tablet by mouth once daily aspirin, enteric coated (ASPIRIN, ENTERIC COATED) 81 mg EC tablet Indications: Coronary artery disease involving [place] heart without angina pectoris, unspecified vessel or lesion type Take 1 tablet by mouth once daily. 12/11/2023 Active Start: 12-02-2023 End: 12-11-2023 aspirin, enteric coated (ASP IRIN, ENTERIC COATED) 325 mg EC tablet Indications: CAD (coronary artery disease) Take 81 mg by mouth once daily. 0 12/02/2023 12/11/2023 Discontinued Start: 05-30-2017 take 1 tablet by marisa th once daily Aspirin 325 mg tablet Active 325 mg PO DAILY May 30, 2017 1:00am [facility] Start: 12-19-2012 take 1 tablet by marisa th once daily ASPIRIN 325 MG TABS One tablet by mouth daily ASPIRIN [id number] Elisabeth Veliz RN Start: 11-16-2010 take 1 tablet by marisa th once daily aspirin, enteric coated (ASPIRIN, ENTERIC COATED) 325 mg EC tablet Indications: CAD (coronary artery disease) Take 1 tablet by mouth once daily. 0 11/16/2010 Active Comment on above: Take 1 tablet by marisa once daily. bempedoic acid 180 mg / ezetimibe 10 mg oral tablet (14 sources) Dietary Cholesterol Absorption Inhibitor Start: 3 End: 3 take 1 tablet by mouth once daily bempedoic acid-ezetimibe (NEXLIZET) 180-10 mg tablet Indications: Other hyperlipidemia Take 1 tablet by mouth once daily. 30 tablet 5 06/01/2022 12/07/2022 Discontinued (Discontinued by Patient) Comment on above: Take 1 tablet by marisa once daily. biotin 1 mg oral tablet (20 sources) Start: 0 take 1 tablet by mouth once daily Biotin 1 mg tablet Active 1 mg PO DAILY May 25, 2019 1:00am SUPPLEMENT take 1 tablet by mouth once antoine y BIOTIN ORAL Take 1 tablet by mouth once daily. Active take 1 tablet by mouth once antoine y BIOTIN ORAL Take 1 tablet by mouth once daily. 0 Active Comment on above: Take 1 tablet by marisa once daily. cephalexin 500 mg oral capsule (20 sources) Cephalosporin Antibacterial Start: 3 End: 3 take 1 capsule by mouth three times daily cephALEXin (KEFLEX) 500 mg capsule Take 1 capsule by mouth three times daily for 7 days. 21 capsule 0 10/11/2022 10/18/2022 Active Start: 08-04-2020 End: 09-07-2020 take 1 capsule by mouth every eight hours Cephalexin (Keflex) 500 mg Capsule Discontinued 500 mg PO Q8H August 04, 2020 12:00am September 07, 2020 2:51pm Start: 06-24-2020 End: 11-02-2022 take 1 capsule by mouth every six hours Cephalexin 500 MG capsule Discontinued 500 mg PO EVERY 6 HOURS June 24, 2020 12:00am November 02, 2022 11:59am Start: 05-25-2020 End: 06-01-2020 take 1 capsule by mouth every six hours Cephalexin 500 MG capsule Discontinued 500 mg PO EVERY 6 HOURS 28 7 0 May 25, 2020 1:00am May 31, 2020 1:00am June 01, 2020 1:02am End: 07-28-2020 take 1 capsule by mouth four times daily cephALEXin (KEFLEX) 500 mg capsule Take 500 mg by mouth four times daily. 07/28/2020 Discontinued Comment on above: Take 1 capsule by mo [facility] three times daily for 7 days. cholecalciferol 0.05 mg oral capsule (20 sources) Vitamin D Start: 06-25-19 take 1 capsule by mouth once daily Cholecalciferol (Vitamin D3) 2,000 UNIT capsule Active 2000 U PO DAILY June 24, 2020 12:00am On Hold: Order Completed clopidogrel 75 mg oral tablet (20 sources) [id number] Platelet Inhibitor Start: 12-16-19 End: 05-29-19 take 1 tablet by mouth once daily clopidogrel (PLAVIX) 75 mg tablet Indications: Coronary artery disease of [place] artery of [place] heart with stable angina pectoris Take 1 tablet by mouth once daily. 90 tablet 3 05/28/2024 Active Comment on above: Take 1 tablet by marisa once daily. TAKE ONE TABLET BY M [facility] EVERY DAY doxycycline monohydrate 100 mg oral tablet (4 sources) Tetracycline-clas s Drug Start: 03-11-20 End: 03-18-20 take 1 tablet by mouth twice daily doxycycline monohydrate 100 mg tablet Take 1 tablet by mouth two times a day for 7 days. 14 tablet 0 03/11/2023 03/18/2023 Active Start: 10-01-2022 End: 10-11-2022 take 1 tablet by mouth twice daily doxycycline (VIBRA-TABS) 100 mg tablet Indications: Ulcer of right leg, limited to breakdown of skin (HCC) Take 1 tablet by mouth twice daily for 10 days. 20 tablet 0 10/01/2022 10/11/2022 Active Comment on above: Take 1 tablet by marisa th twice daily for 10 days. Take 1 tablet by marisa th two times a day for 7 days. Fish Oil-Jackson-3 Fatty Acids (FISH OIL OMEGA 3-6-9) 300-1,000 mg CpDR (20 sources) Start: 09-17-2011 Fish Oil-Jackson-3 Fatty Acids (FISH OIL OMEGA 3-6-9) 300-1,000 mg CpDR Indications: Other and unspecified hyperlipidemia Take 3000 mg daily. 0 09/17/2011 Active Comment on above: Take 3000 mg daily. furosemide 80 mg oral tablet (20 sources) Loop Diuretic Start: 08-30-2020 End: 12-11-2023 furosemide (LASIX) 80 mg tablet Indications: Chronic diastolic congestive heart failure (HCC) Take 1 tablet by mouth two times a day. Three times per day as directed PRN 225 tablet 3 12/11/2023 Active Start: 01-07-2020 End: 09-07-2020 take 1 tablet by mouth twice daily Furosemide 40 mg tablet Discontinued 40 mg PO TWICE A DAY 180 January 15, 2020 10:08am September 07, 2020 2:49pm Start: 12-29-2019 End: 01-07-2020 take 1 tablet by mouth once daily Furosemide 40 mg tablet Discontinued 40 mg PO DAILY 90 December 29, 2019 3:33pm January 07, 2020 3:32pm Start: 12-16-2019 End: 12-29-2019 take 1 tablet by mouth once daily Furosemide 20 mg tablet Discontinued 20 mg PO DAILY 30 December 16, 2019 9:28am December 29, 2019 12:07pm Comment on above: TAKE ONE TABLET BY M OUTH TWICE A DAY Take 1 tablet by marisa th twice daily. Three times per day as directed PRN gabapentin 100 mg oral capsule (20 sources) Anti-epileptic Agent Start: 02-10-20 End: 04-25-19 26 take 1 capsule by mouth three times daily gabapentin (NEURONTIN) 100 mg capsule Indications: Type 2 diabetes mellitus with diabetic neuropathy, with long-term current use of insulin ([facility]) Take 1 capsule by mouth three times a day for 360 days. 270 capsule 3 04/30/2024 04/25/2025 Active 3 ml insulin aspart, human 100 unt/ml pen injector (20 sources) Insulin Analog Start: 06-11-19 25 End: 11-05-19 25 inject 25 [IU] by subcutaneous injection three times daily before mealtime, then inject 80 [IU] by subcutaneous injection three times daily insulin aspart U-100 (NOVOLOG FLEXPEN U-100 INSULIN) 100 unit/mL (3 mL) pen Indications: Type 2 diabetes mellitus with diabetic neuropathy, with long-term current use of insulin ([facility]) Inject 25 Units subcutaneously three times a day before meals. Sliding scale 3 times daily. (80 units daily max) 25 each 3 11/04/2024 Active Start: 03-09-2024 End: 06-10-2024 insulin aspart, niacinamide, (FIASP FLEXTOUCH U-100 INSULIN) 100 unit/mL (3 mL) pen Inject 25 units 3 times a day with meals PLUS Sliding scale as based on pre meal blood sugar as directed (~ 68 units daily) 25 Each 3 03/09/2024 06/10/2024 Discontinued (Changing Therapy/Dosage Form) Start: 03-28-2023 End: 03-07-2024 insulin aspart, niacinamide, (FIASP FLEXTOUCH U-100 INSULIN) 100 unit/mL (3 mL) pen Inject 25 units 3 times a day with meals PLUS Sliding scale as based on pre meal blood sugar as directed (~ 68 units daily) 25 Each 3 03/28/2023 03/07/2024 Discontinued Start: 11-02-2022 Insulin Aspart U-100 100 unit/mL cartridge Active 25 U SC THREE TIMES A DAY November 02, 2022 12:00am Start: 07-10-2021 End: 06-01-2022 insulin aspart U-100 (NOVOLO G FLEXPEN U-100 INSULIN) 100 unit/mL (3 mL) Indications: Type 2 diabetes mellitus with diabetic neuropathy, with long-term current use of insulin (HCC) Inject 25 units 3 times a day with meals PLUS Sliding scale as based on pre meal blood sugar as directed (~ 68 units daily) 25 Each 3 06/01/2022 Active Start: 05-26-2021 End: 07-10-2021 insulin aspart U-100 (NOVOLO G FLEXPEN U-100 INSULIN) 100 unit/mL (3 mL) Indications: Type 2 diabetes mellitus with diabetic neuropathy, with long-term current use of insulin (HCC) Inject 20 units 3 times a day with meals PLUS Sliding scale as based on pre meal blood sugar as directed (~ 68 units daily) 25 Pen 3 05/26/2021 07/10/2021 Discontinued Comment on above: Inject 20 units 3 ti mes a day with meals PLUS Sliding scale as based on pre meal blood sugar as directed (~ 68 units daily) Inject 25 units 3 ti mes a day with meals PLUS Sliding scale as based on pre meal blood sugar as directed (~ 68 units daily) 3 ml insulin degludec 200 unt/ml pen injector (20 sources) Insulin Analog Start: 09-08-2021 End: 11-04-2024 insulin degludec (TRESIBA FLEXTOUCH U-200) 200 unit/mL (3 mL) injection Indications: Type 2 diabetes mellitus with diabetic neuropathy, with long-term current use of insulin (HCC) Inject 120 Units subcutaneously daily at bedtime. 20 each 3 11/04/2024 Active Start: 07-10-2021 End: 09-08-2021 insulin degludec (TRESIBA FL EXTOUCH U-200) 200 unit/mL (3 mL) injection Indications: Type 2 diabetes mellitus with diabetic neuropathy, with long-term current use of insulin (HCC) Inject 105 Units subcutaneously daily at bedtime. 20 Pen 3 07/10/2021 09/08/2021 Discontinued Start: 06-02-2021 End: 07-10-2021 insulin degludec (TRESIBA FL EXTOUCH U-200) 200 unit/mL (3 mL) injection Indications: Type 2 diabetes mellitus with diabetic neuropathy, with long-term current use of insulin (HCC) Inject 75 Units subcutaneously daily at bedtime. 3 06/02/2021 07/10/2021 Discontinued Comment on above: Inject 75 Units subc utaneously daily at bedtime. Inject 105 Units sub cutaneously daily at bedtime. Inject 120 Units sub cutaneously daily at bedtime. metoprolol tartrate 50 mg oral tablet (20 sources) beta-Adrenergic Veronique Start: take 1 tablet by mouth twice daily Metoprolol Tartrate (Lopressor) 50 mg tablet Active 50 mg PO TWICE A DAY November 02, 2022 12:00am Start: 10-01-2022 End: 05-28-2024 take 1 tablet by mouth three times daily metoprolol tartrate, short acting, (LOPRESSOR) 50 mg tablet Indications: Chronic diastolic congestive heart failure (HCC) , Essential hypertension Take 1 tablet by mouth three times a day. 270 tablet 3 05/28/2024 Active Start: 09-02-2020 End: 10-01-2022 take 1 tablet by mouth twice daily metoprolol tartrate, short acting, (LOPRESSOR) 50 mg tablet Take 1 tablet by mouth twice daily. Additional dose of 25 mg may be taken by patient per day for fast heart rate. 200 tablet 3 09/02/2020 08/07/2021 Discontinued Start: 06-04-2017 End: 09-15-2019 Metoprolol Tartrate 50 mg ta blet Discontinued 50 mg PO TWICE A DAY 200 3 May 25, 2019 5:29pm September 15, 2019 1:30pm May use one half tablet if needed for a fast HR Start: 06-04-2017 End: 06-04-2017 take 50 mg by mouth twice daily Metoprolol Tartrate Di scontinued 50 MG PO TWICE A DAY June 04, 2017 10:17am June 04, 2017 10:20am Start: 05-30-2017 End: 06-04-2017 take 1 tablet by mouth twice daily Metoprolol Tartrate Discontinued 0 PO TWICE A DAY May 30, 2017 1:00am June 04, 2017 10:18am 2MG, 2 tablets PO BID Start: 04-19-2017 End: 08-29-2020 take 2 tablets by mouth twice daily Metoprolol Tartrate 25 mg tablet Discontinued 50 mg PO TWICE A DAY June 04, 2017 10:17am June 04, 2017 10:20am Start: 02-23-2013 take 2 tablets by mo [facility] twice daily METOPROLOL TARTRATE 25 MG TABS Two tablets by mouth twice daily METOPROLOL TARTRATE [id number] Son Deluna MD Start: 02-23-2013 take 1 tablet by marisa twice daily as needed, then take 1 tablet by mouth once daily as needed METOPROLOL TARTRATE 25 MG TABS One tablet by mouth twice daily and one extra daily as needed METOPROLOL TARTRATE [id number] Son Deluna MD Comment on above: Take 1 tablet by marisa twice daily. Additional dose of 25 mg may be taken by patient per day for fast heart rate. TAKE ONE TABLET BY M [facility] TWICE A DAY . MAY TAKE ADDITIONAL 25MG (1/2 TABLET) PER DAY FOR FAST HEART RATE DIRECTED Take 1 tablet by marisa twice daily. Take 1 tablet by marisa three times daily. Take 1 tablet by marisa three times a day. MULTIVITAMIN TAB (20 sources) Start: 6 MULTIVITAMIN TAB Take one(1) tablet daily. 0 05/02/2005 Active Comment on above: Take one(1) tablet d aily. Multivitamin With Minerals (20 sources) Start: 0 take 1 tablet by mouth twice daily Multivitamin With Minerals Active 1 TAB PO TWICE A DAY September 15, 2019 1:20pm Start: 09-15-2019 take 1 tablet by marisa th twice daily Multivitamin With Minerals Active 1 TAB PO TWICE A DAY September 14, 2019 11:00pm Start: 09-15-2019 take 1 tablet by marisa th twice daily Multivitamin With Minerals Active 1 TAB PO TWICE A DAY September 15, 2019 12:00am Multivitamin With Minerals 1 EACH tablet (7 sources) Start: 09-15-2019 take 1 tablet by mouth twice daily Multivitamin With Minerals 1 EACH tablet Active 1 NMA PO TWICE A DAY September 15, 2019 12:00am SUPPLEMENT Start: 09-15-2019 take 1 tablet by marisa th twice daily Multivitamin With Minerals 1 EACH tablet Active 1 NMA PO TWICE A DAY September 15, 2019 12:00am nitroglycerin 0.4 mg sublingual tablet (20 sources) Nitrate Vasodilator Start: 05-30-2017 End: 12-11-2023 nitroglycerin sublingual (NITROQUICK) 0.4 mg SL tablet Indications: Coronary artery disease involving [place] heart without angina pectoris, unspecified vessel or lesion type Dissolve 1 tablet under the tongue every 5 minutes as needed for chest pain. IF NO PAIN RELIEF WITH 2ND DOSE, CALL 911 25 tablet 2 12/11/2023 Active Start: 05-30-2017 Nitroglycerin (Nitrostat) 0.4 mg tablet, sublingual Active 0.4 MG SL Q5M May 30, 2017 1:00am Start: 12-19-2012 NITROSTAT 0.4 MG SUBL 1 tablet under tongue every 5 min up to 3 X NITROGLYCERIN [id number] Son Deluna MD Comment on above: Dissolve 1 tablet un chidi the tongue every 5 minutes as needed for chest pain. IF NO PAIN RELIEF WITH 2ND DOSE, CALL 911 Jackson-3 Fatty Acids (Fish Oil Concentrate) 1,000 mg capsule (20 sources) Start: 05-25-2019 Jackson-3 Fatty Acids (Fish Oil Concentrate) 1,000 mg capsule Active 3000 MG PO TWICE A DAY May 25, 2019 3:40pm Start: 05-25-2019 Jackson-3 Fatty Acids (Fish Oil Concentrate) 1,000 mg capsule Active 3000 mg PO TWICE A DAY May 25, 2019 1:00am SUPPLEMENT Start: 05-25-2019 Jackson-3 Fatty Acids (Fish Oil Concentrate) 1,000 mg capsule Active 3000 mg PO TWICE A DAY May 25, 2019 1:00am Start: 05-25-2019 Jackson-3 Fatty Acids (Fish Oil Concentrate) 1,000 mg capsule Active 3000 MG PO TWICE A DAY May 25, 2019 12:00am Start: 05-25-2019 Jackson-3 Fatty Acids (Fish Oil Concentrate) 1,000 mg capsule Active 3000 MG PO TWICE A DAY May 25, 2019 1:00am spironolactone 25 mg oral tablet (20 sources) Aldosterone Antagonist Start: 12-06-2021 End: 12-11-2023 take 1 tablet by mouth once daily spironolactone (ALDACTONE) 25 mg tablet Indications: Chronic diastolic congestive heart failure (HCC) Take 1 tablet by mouth once daily. 90 tablet 3 12/11/2023 Active Start: 11-30-2020 take 1 tablet by marisa th once daily spironolactone (ALDACTONE) 25 mg tablet Indications: Chronic diastolic congestive heart failure (HCC) Take 1 tablet by mouth once daily. 90 tablet 3 11/30/2020 Active Comment on above: Take 1 tablet by marisa th once daily. torsemide 20 mg oral tablet (19 sources) Loop Diuretic Start: 09-07-2020 take 20 mg by mouth twice daily Torsemide Active 20 MG PO TWICE A DAY September 07, 2020 12:00am Completed/Discontinued Medications Medication Drug Class(es) Dates Sig (Normalized) Sig (Original) amiodarone hydrochloride 400 mg oral tablet (20 sources) Antiarrhythmic Start: 12-25-2012 take 1 tablet by mouth three times daily, then take 1 tablet by mouth twice daily, then take 1 tablet by mouth once daily AMIODARONE HCL 200 MG TABS One tablet by mouth three times daily for two weeks then One tablet by mouth twice daily for two weeks then One tablet by mouth daily AMIODARONE HCL [id number] Son Deluna MD Start: 12-25-2012 End: 01-21-2013 AMIODARONE HCL 400 MG TABS 1 /2 tablet tid for 2 weeks then bid for 2 weeks then daily (the 200 mg tablets are red and pt is allergic to red dye) AMIODARONE HCL [id number] Mojgan Obando RN Start: 12-25-2012 AMIODARONE HCL 400 MG TABS 1/2 tablet daily (the 200 mg tablets are red and pt is allergic to red dye) AMIODARONE HCL [id number] Mojgan Obando RN atropine sulfate 0.0194 mg / hyoscyamine sulfate 0.1037 mg / PHENobarbital 16.2 mg / scopolamine hydrobromide 0.0065 mg oral tablet (20 sources) Anticholinergic, Cholinergic Muscarinic Antagonist Start: 11-25-2019 End: 09-07-2020 Giawqrkpy-Jhgvss-Zkagzfnr-Sc op () 16.2-0.1037 -0.0194 mg tablet Discontinued 1 {tbl} PO THREE TIMES A DAY as needed for Abdominal Pain November 25, 2019 12:00am September 07, 2020 2:52pm administer 30 minutes before meals Start: 12-19-2012 End: 02-13-2013 take 1 tablet by mouth three times daily as needed 16.2 MG TABS One tablet by mouth three times daily as needed BELLADONNA ALK-PHENOBARBITAL [id number] Elisabeth Veliz RN BELLADONNA ALK-PHENOBARBITAL TABS (6 sources) Start: 05-21-2014 BELLADONNA ALK-PHENOBARBITAL TABS as needed for heartburn BELLADONNA ALK-PHENOBARBITAL TABS Son Deluna MD 24 hr dilTIAZem hydrochloride 120 mg extended release oral capsule (12 sources) Calcium Channel Veronique Start: 12-19-2012 End: 02-13-2013 take 1 tablet by mouth once daily DILTIAZEM HCL ER 120 MG [id number] One tablet by mouth daily DILTIAZEM HCL [id number] Son Deluna MD doxazosin 1 mg oral tablet (20 sources) alpha-Adrener gic Veronique Start: 11-02-2022 End: 01-29-2023 take 1 tablet by mouth at bedtime Doxazosin (Cardura) 1 mg tablet Discontinued 1 mg PO AT BEDTIME November 02, 2022 12:00am January 29, 2023 10:11am Start: 01-14-2017 End: 06-01-2022 take 1 tablet by mouth at bedtime Doxazosin 1 mg tablet Discontinued 1 mg PO AT BEDTIME 90 3 May 25, 2019 5:29pm September 15, 2019 1:30pm Comment on above: Take 1 tablet by marisa th daily at bedtime. TAKE ONE TABLET BY M OUTH EVERY DAY AT BEDTIME Elderberry Fruit And Flower (20 sources) Start: 06-24-2020 End: 09-07-2020 Elderberry Fruit And Flower Discontinued 1 EACH PO DAILY June 24, 2020 8:12am September 07, 2020 2:50pm Start: 06-24-2020 End: 09-07-2020 Elderberry Fruit And Flower Discontinued 1 EACH PO DAILY June 23, 2020 11:00pm September 07, 2020 1:50pm Start: 06-24-2020 End: 09-07-2020 Elderberry Fruit And Flower Discontinued 1 EACH PO DAILY June 24, 2020 12:00am September 07, 2020 2:50pm Elderberry Fruit And Flower 1 EACH capsule (7 sources) Start: 06-24-2020 End: 09-07-2020 take 1 capsule by mouth once daily Elderberry Fruit And Flower 1 EACH capsule Discontinued 1 NMA PO DAILY June 24, 2020 12:00am September 07, 2020 2:50pm fish oil (12 sources) Start: 12-19-2012 take 1 capsule by mouth three times daily FISH OIL CAPS One capsule by mouth three times daily OMEGA-3 FATTY ACIDS CAPS [id number] Son Deluna MD Start: 12-19-2012 take 1 tablet by marisa th once daily FISH OIL CAPS One tablet by mouth daily OMEGA-3 FATTY ACIDS CAPS [id number] Elisabeth Veliz RN flash glucose scanning reade r (FREESTYLE MERCY 2 READER) (20 sources) Start: 01-26-2022 End: 02-10-2024 flash glucose scanning reade r (FREESTYLE MERCY 2 READER) Test blood sugar(s) 4-5 times daily Dx: Type 2 DM - Uncontrolled E11.65 Insulin: Yes 1 Each 5 01/26/2022 02/10/2024 Discontinued Start: 01-26-2022 flash glucose scanning reader (FREESTYLE MERCY 2 READER) Test blood sugar(s) 4-5 times daily Dx: Type 2 DM - Uncontrolled E11.65 Insulin: Yes 1 Each 5 01/26/2022 Active Comment on above: Test blood sugar(s) 4-5 times daily Dx: Type 2 DM - Uncontrolled E11.65 Insulin: Yes flash glucose sensor (FREESTYLE MERCY 2 SENSOR) kit (20 sources) Start: 01-26-2022 End: 02-10-2024 flash glucose sensor (FREESTYLE MERCY 2 SENSOR) kit Test blood sugar(s) 4-5 times daily Dx: Type 2 DM - Uncontrolled E11.65 Insulin: Yes 1 Each 2 01/26/2022 02/10/2024 Discontinued Start: 01-26-2022 flash glucose sensor (FREESTYLE MERCY 2 SENSOR) kit Test blood sugar(s) 4-5 times daily Dx: Type 2 DM - Uncontrolled E11.65 Insulin: Yes 1 Each 2 01/26/2022 Active Comment on above: Test blood sugar(s) 4-5 times daily Dx: Type 2 DM - Uncontrolled E11.65 Insulin: Yes glimepiride 4 mg oral tablet (20 sources) Sulfonylurea Start: End: take 1 tablet by mouth once daily in the morning, then take 1 tablet by mouth in the evening Glimepiride 4 mg tablet Discontinued 4 mg PO .COMPLEX September 07, 2020 2:48pm November 02, 2022 12:01pm 4 mg PO 1 tab PO daily in am and one half tab in the pm; Start: 08-29-2020 End: 09-05-2020 take 1 tablet by mouth once daily at breakfast, then take 1 tablet by mouth once daily before dinner glimepiride (AMARYL) 4 mg tablet Indications: Type 2 diabetes mellitus with diabetic neuropathy, with long-term current use of insulin ([facility]) Take 1 tablet by mouth daily with breakfast AND 1 tablet daily before dinner. 180 tablet 2 08/29/2020 09/05/2020 Discontinued Start: 02-15-2020 End: 07-28-2020 take 1 tablet by mouth once daily at breakfast, then take 0.5 tablet by mouth once daily before dinner glimepiride (AMARYL) 4 mg tablet Indications: Type 2 diabetes mellitus with diabetic neuropathy, with long-term current use of insulin ([facility]) Take 1 tablet by mouth daily with breakfast AND 0.5 tablets daily before dinner. 02/15/2020 07/28/2020 Discontinued Start: 11-25-2019 End: 09-07-2020 take 1 tablet by mouth twice daily Glimepiride 4 mg tablet Discontinued 4 mg PO TWICE A DAY November 25, 2019 12:00am September 07, 2020 2:51pm Start: 05-30-2017 End: 10-05-2019 take 1 tablet by mouth twice daily Glimepiride 4 mg tablet Discontinued 4 mg PO TWICE A DAY May 30, 2017 1:00am October 05, 2019 11:04am DM Start: 12-25-2012 take 1 tablet by mairsa th twice daily GLIMEPIRIDE 4 MG TABS One tablet by mouth twice daily GLIMEPIRIDE [id number] Son Deluna MD hydroCHLOROthiazide 12.5 mg / lisinopril 20 mg oral tablet (20 sources) Thiazide Diuretic, Angiotensin Converting Enzyme Inhibitor Start: 08-06-2017 End: 10-05-2019 Lisinopril-Hydrochlorothiazi de 20-12.5 mg tablet Discontinued 1 {tbl} PO TWICE A DAY 180 3 May 25, 2019 5:29pm September 15, 2019 1:30pm Start: 08-06-2017 End: 10-05-2019 take 1 tablet by mouth twice daily Lisinopril-Hydrochlorothiazide Discontin ued 1 TABLET PO TWICE A DAY 180 May 25, 2019 5:29pm September 15, 2019 1:30pm Start: 03-14-2017 End: 08-06-2017 Lisinopril-Hydrochlorothiazi de 20-12.5 mg tablet Discontinued 1 {tbl} PO daily 90 March 14, 2017 7:23pm June 04, 2017 10:33am Start: 03-14-2017 End: 08-06-2017 take 1 tablet by mouth once daily Lisinopril-Hydrochlorothiazide Discontin ued 1 TABLET PO daily March 14, 2017 7:23pm June 04, 2017 10:33am Start: 12-19-2012 take 1 tablet by marisa th twice daily LISINOPRIL-HYDROCHLOROTHIAZIDE 20-12.5 M G TABS One tablet by mouth twice daily LISINOPRIL-HYDROCHLOROTHIAZIDE [id number] Son Deluna MD Start: 12-19-2012 take 0.5 tablet by mouth once daily LISINOPRIL-HYDROCHLOROTHIAZIDE 20-12.5 M G TABS One-half tablet by mouth daily LISINOPRIL-HYDROCHLOROTHIAZIDE [id number] Son Deluna MD Insulin Degludec (Tresiba Flextouch U-100) 100 unit/mL (3 mL) insulin pen (15 sources) Start: 01-29-2023 Insulin Deglud ec (Tresiba Flextouch U-100) 100 unit/mL (3 mL) insulin pen Discontinued 114 U SC AT BEDTIME January 29, 2023 1:00am Start: 01-29-2023 Insulin Deglud ec (Tresiba Flextouch U-100) 100 unit/mL (3 mL) insulin pen Active 114 UNIT SC AT BEDTIME January 29, 2023 1:00am Start: 01-29-2023 Insulin Deglud ec (Tresiba Flextouch U-100) 100 unit/mL (3 mL) insulin pen Active 114 UNIT SC AT BEDTIME January 29, 2023 12:00am 3 ml insulin glargine 100 unt/ml pen injector (20 sources) Insulin Analogue Start: 05-25-2019 End: 01-29-2023 Insulin Glargine (Basaglar Kwikpen U-100 Insulin) 100 unit/mL (3 mL) insulin pen Discontinued 56 U SC AT BEDTIME May 25, 2019 1:00am January 29, 2023 10:12am DM Start: 04-15-2019 End: 09-05-2020 insulin glargine (BASAGLAR K CHARLYKPEN U-100 INSULIN) 100 unit/mL (3 mL) inpn Indications: diabetes mellitus Inject 56 Units subcutaneously daily at bedtime. Use as directed. 20 pens/3 months. 20 Pen 3 04/15/2019 09/05/2020 Discontinued Start: 12-19-2012 LANTUS 100 UNI T/ML SOLN take as directed INSULIN GLARGINE [id number] Elisabeth Veliz RN metFORMIN hydrochloride 500 mg oral tablet (20 sources) Biguanide Start: 05-30-2017 End: 10-05-2019 take 3 tablets by mouth once daily in the evening Metformin 500 mg tablet Discontinued 1000 mg PO DAILY May 30, 2017 1:00am October 05, 2019 11:05am DM 500MG, 2 tablets in AM, 3 tablets in PM PO Start: 05-30-2017 End: 10-05-2019 take 3 tablets by mouth once daily in the evening Metformin Discontinued 1000 MG PO DAILY May 30, 2017 1:00am October 05, 2019 11:05am 500MG, 2 tablets in AM, 3 tablets in PM PO Start: 12-19-2012 take 2 tablets by mo [facility] in the morning, then take 3 tablets by mouth in the evening METFORMIN HCL 500 MG TABS Two tablets by mouth in am, Three tablets by mouth in pm METFORMIN HCL [id number] Elisabeth Veliz RN metOLazone 2.5 mg oral tablet (20 sources) Thiazide-like Diuretic Start: 11-02-2022 End: 01-29-2023 take 1 tablet by mouth once daily Metolazone 2.5 mg tablet Discontinued 2.5 mg PO DAILY November 02, 2022 12:00am January 29, 2023 10:11am Start: 09-08-2021 End: 06-01-2022 take 1 tablet by mouth once daily metOLazone (ZAROXOLYN) 2.5 mg tablet Indications: Chronic diastolic congestive heart failure (HCC) Take 1 tablet by mouth once daily. 0 09/08/2021 06/01/2022 Discontinued (Allergic response) Comment on above: Take 1 tablet by [facility] once daily. MULTIPLE VITAMIN (6 sources) Start: 12-19-2012 take 1 tablet by mouth once daily MULTIVITAMINS TABS One tablet by mouth daily MULTIPLE VITAMIN Elisabeth Veliz RN perflutren lipid microspheres 1.3 mL in NaCl (PF) 0.9% 10 mL injection (DEFINITY) (16 sources) Start: 08-13-2022 End: 06-07-2023 perflutren lipid microspheres 1.3 mL in NaCl (PF) 0.9% 10 mL injection (DEFINITY) Start: 08-13-2022 End: 11-12-2023 perflutren lipid microsphere s 1.3 mL in NaCl (PF) 0.9% 10 mL injection (DEFINITY) pravastatin sodium 20 mg oral tablet (6 sources) HMG-CoA Reductase Inhibitor Start: 06-15-2021 End: 09-08-2021 take 1 tablet by mouth once daily at bedtime pravastatin (PRAVACHOL) 20 mg tablet Indications: Other hyperlipidemia Take 1 tablet by mouth daily at bedtime. 30 tablet 5 06/15/2021 09/08/2021 Discontinued (Side Effects) Comment on above: Take 1 tablet by marisa th daily at bedtime. promethazine hydrochloride 12.5 mg oral tablet (1 source) Phenothiazine Start: 07-28-2020 End: 09-05-2020 take 1 tablet by mouth every eight hours as needed for nausea promethazine (PHENERGAN) 12.5 mg tablet Indications: Hammertoe of left foot , Ulcer of toe of left foot, limited to breakdown of skin (HCC) Take 1 tablet by mouth every 8 hours as needed for Nausea/Vomiting. 21 tablet 07/28/2020 09/05/2020 Discontinued regadenoson 0.4 mg injection (LEXISCAN) (2 sources) Start: 10-19-2024 End: 10-19-2024 regadenoson 0.4 mg injection (LEXISCAN) Start: 10-19-2024 End: 10-19-2024 0.4 mg, INTRAVENOUS, DIRE CTED NEEDED, 1 dose, Starting on Sat10/19/24 at 1053, Until Sat10/19/24 at 1025, Per-Protocol - for use during STRESS TEST procedure only, Give 0.4 mg (5 mL) over ~10 seconds, followed immediately by a 5 mL saline flush. Wait 10-20 seconds, then administer the radionuclide myocardial perfusion imaging agent., Cardiac Procedure Med Orders 125 ml sodium chloride 9 mg/ml prefilled syringe (16 sources) Start: 08-13-2022 End: 11-12-2023 sodium chloride 0.9 % (flush) 10 mL (BD POSIFLUSH) sotalol (18 sources) Antiarrhythmic Start: 12-25-2012 End: 01-21-2013 take 1 tablet by mouth twice daily SOTALOL HCL (AF) 80 MG TABS One tablet by mouth twice daily (STOP) SOTALOL HCL AF [id number] Mojgan Obando RN Start: 12-25-2012 take 1 tablet by marisa th twice daily SOTALOL HCL (AF) 80 MG TABS One tablet by mouth twice daily (STOP) SOTALOL HCL AF [id number] Son Deluna MD Start: 12-19-2012 take 1 tablet by marisa th twice daily SOTALOL HCL (AF) 80 MG TABS One tablet by mouth twice daily SOTALOL HCL AF [id number] Reshma Jose Alfredo RN sulfamethoxazole 800 mg / trimethoprim 160 mg oral tablet (20 sources) Dihydrofolate Reductase Inhibitor Antibacterial, Sulfonamide Antimicrobial Start: 05-25-2020 End: 11-02-2022 Sulfamethoxazole-Trimethopri m 1 TABLET tablet Discontinued 2 NMA PO TWICE A DAY May 25, 2020 1:00am November 02, 2022 12:02pm Start: 05-25-2020 End: 11-02-2022 take 2 tablets by mouth twice daily Sulfamethoxazole-Trimethoprim Discontinu ed 2 TAB PO TWICE A DAY May 25, 2020 1:00am November 02, 2022 12:02pm traMADol hydrochloride 50 mg oral tablet (12 sources) Opioid Agonist Start: 12-19-2012 End: 02-13-2013 take 1 tablet by mouth twice daily as needed TRAMADOL HCL 50 MG TABS One tablet by mouth twice daily as needed TRAMADOL HCL [id number] Son Deluna MD verapamil hydrochloride 180 mg oral capsule (20 sources) Calcium Channel Veronique Start: 05-28-2013 take 1 tablet by mouth twice daily VERAPAMIL HCL ER 180 MG CR-TABS One tablet by mouth twice daily (on HOLD) VERAPAMIL HCL [id number] Son Deluna MD Start: 05-11-2013 take 1 tablet by marisa th twice daily VERAPAMIL HCL 120 MG TABS One tablet by mouth twice daily VERAPAMIL HCL [id number] Son Deluna MD Start: 02-13-2013 take 1 tablet by marisa th once daily VERAPAMIL HCL 120 MG TABS One tablet by mouth daily VERAPAMIL HCL [id number] Son Deluna MD warfarin sodium 5 mg oral tablet (20 sources) Vitamin K Antagonist Start: 08-25-2014 End: 09-28-2014 COUMADIN 5 MG TABS Two tablets by mouth on Sat / Sun WARFARIN SODIUM [id number] Son Deluna MD Start: 12-19-2012 End: 09-28-2014 COUMADIN 5 MG TABS One and 1 /2 tablet by mouth M-F WARFARIN SODIUM [id number] Fatimah Nguyen RN Problems Active Problems Problem Classification Problem Date Documented Date Episodic/Chronic Administrative/social admission (20 sources) Counseling procedure with explicit context; Translations: [Tobacco abuse counseling] 03-19-2023 Episodic Cardiac and circulatory congenital anomalies (6 sources) Left atrial abnormality; Translations: [Cardiomegaly] Onset: 01-06-2013 01-06-2013 Chronic Cardiac dysrhythmias (20 sources) Atrial fibrillation; Translations: [Paroxysmal atrial fibrillation] Onset: 10-07-2007 Resolved: 05-25-2015 09-21-2013 Chronic Cardiac dysrhythmias (20 sources) Tachycardia; Translations: [Tachycardia, unspecified] Onset: 05-27-2013 05-27-2013 Episodic Chronic kidney disease (1 source) Chronic kidney disease; Translations: [Chronic kidney disease, stage 3a] Onset: 08-18-2024 Congestive heart failure; nonhypertensive (20 sources) Chronic diastolic heart failure; Translations: [Chronic diastolic (congestive) heart failure] Onset: 03-31-2020 07-02-2020 Chronic Coronary atherosclerosis and other heart disease (20 sources) Coronary atherosclerosis; Translations: [Atherosclerotic heart disease of [place] coronary artery with other forms of angina pectoris] Onset: 10-07-2007 Resolved: 07-02-2020 07-02-2020 Chronic Coronary atherosclerosis and other heart disease (20 sources) Stented coronary artery; Translations: [Presence of coronary angioplasty implant and graft] Onset: 06-23-2020 07-01-2020 Episodic Comment on above: PCI/stent to the LM and LAD per Dr. Stover @[facility] 07/01/20; PTCA with DILIA to CFX 2nd marginal 06/30 PTCA with DILIA to CFX 2nd marginal paroxysmal atrial fib 06/30 Diabetes mellitus with complications (20 sources) Type 2 diabetes mellitus; Translations: [Type 2 diabetes mellitus with diabetic neuropathy, unspecified] Onset: 01-30-2006 Resolved: 10-06-2020 Chronic Disorders of lipid metabolism (20 sources) Hyperlipidemia; Translations: [Other hyperlipidemia] Onset: 12-19-2012 12-19-2012 Chronic Esophageal disorders (20 sources) Gastroesophageal reflux disease; Translations: [Gastro-esophageal reflux disease without esophagitis] 08-18-2020 Chronic Essential hypertension (20 sources) Hypertensive disorder; Translations: [Essential hypertension] Onset: 12-19-2012 12-19-2012 Chronic Fluid and electrolyte disorders (20 sources) Hyperkalemia, diminished renal excretion; Translations: [Hyperkalemia] 10-01-2019 Episodic Hyperplasia of prostate (20 sources) Benign prostatic hyperplasia; Translations: [Benign prostatic hyperplasia without lower urinary tract symptoms] Onset: 05-31-2014 05-31-2014 Chronic Hypertension with complications and secondary hypertension (20 sources) Hypertensive heart disease with congestive heart failure; Translations: [Hypertensive heart disease with heart failure] Onset: 05-30-2022 05-30-2022 Chronic Immunizations and screening for infectious disease (4 sources) Vaccination needed; Translations: [Encounter for immunization] Episodic Osteoarthritis (20 sources) Degenerative joint disease involving multiple joints; Translations: [Polyosteoarthritis, unspecified] 01-23-2010 Chronic Other aftercare (20 sources) Long-term current use of drug therapy; Translations: [Other halfway (current) drug therapy] 05-30-2017 Episodic Other and ill-defined heart disease (20 sources) Left atrial enlargement; Translations: [Cardiomegaly] 05-30-2017 Chronic Other and ill-defined heart disease (10 sources) Cardiomegaly; Translations: [Cardiomegaly] 03-19-2023 Chronic Other connective tissue disease (13 sources) Swelling of right lower limb; Translations: [Other specified soft tissue disorders] 03-19-2023 Episodic Other connective tissue disease (10 sources) Other specified soft tissue disorders; Translations: [Swelling of limb] 03-19-2023 Episodic Other diseases of veins and lymphatics (20 sources) Peripheral venous insufficiency; Translations: [Venous insufficiency (chronic) (peripheral)] 10-17-2016 Episodic Other nervous system disorders (14 sources) Impairment of balance; Translations: [Other abnormalities of gait and mobility] Episodic Other nervous system disorders (1 source) Abnormal gait; Translations: [Unspecified abnormalities of gait and mobility] Episodic Other nervous system disorders (10 sources) Other abnormalities of gait and mobility; Translations: [Other symptoms involving nervous and musculoskeletal systems] 03-19-2023 Episodic Other non-traumatic joint disorders (2 sources) Pain in elbow; Translations: [Pain in right elbow] 09-11-2023 Episodic Other nutritional; endocrine; and metabolic disorders (20 sources) Severe obesity; Translations: [Morbid (severe) obesity due to excess calories] 03-15-2021 Chronic Other nutritional; endocrine; and metabolic disorders (20 sources) Morbid obesity; Translations: [Morbid (severe) obesity due to excess calories] 03-10-2020 Chronic Other nutritional; endocrine; and metabolic disorders (10 sources) Morbid (severe) obesity due to excess calories; Translations: [Morbid obesity] 03-19-2023 Chronic Other skin disorders (5 sources) Callosity; Translations: [Corns and callosities] Episodic Other skin disorders (2 sources) Localized swelling, mass and lump, right upper limb; Translations: [Other symptoms referable to joint, upper arm] 09-10-2023 Episodic Other upper respiratory disease (20 sources) Allergic rhinitis; Translations: [Other allergic rhinitis] Onset: 11-30-2020 11-30-2020 Chronic Aileen-; endo-; and myocarditis; cardiomyopathy (except that caused by tuberculosis or sexually transmitted disease) (20 sources) Heart valve disorder; Translations: [Endocarditis, valve unspecified] Onset: 08-18-2020 08-18-2020 Chronic Peripheral and visceral atherosclerosis (20 sources) Atherosclerosis of aorta; Translations: [Atherosclerosis of aorta] Onset: 03-11-2023 03-13-2023 Chronic Residual codes; unclassified (10 sources) Obstructive sleep apnea (adult) (pediatric); Translations: [Obstructive sleep apnea (adult)(pediatric)] 03-19-2023 Chronic Residual codes; unclassified (20 sources) Edema of lower extremity; Translations: [Localized edema] 11-06-2022 Episodic Residual codes; unclassified (20 sources) Localized edema; Translations: [Edema] 11-22-2022 Episodic Residual codes; unclassified (13 sources) Edema of right lower leg; Translations: [Localized edema] 03-19-2023 Episodic Residual codes; unclassified (13 sources) Tobacco user; Translations: [Tobacco use] 03-19-2023 Episodic Residual codes; unclassified (13 sources) History of decompression of ulnar nerve; Translations: [Other specified postprocedural states] 03-19-2023 Episodic Residual codes; unclassified (10 sources) Other specified postprocedural states; Translations: [Other postprocedural status] 03-19-2023 Episodic Residual codes; unclassified (10 sources) Acquired absence of other organs; Translations: [Other postprocedural status] 03-19-2023 Episodic Residual codes; unclassified (10 sources) Tobacco use; Translations: [Tobacco use disorder] 03-19-2023 Episodic Residual codes; unclassified (1 source) Pain; Translations: [Pain, unspecified] 09-05-2020 Episodic Skin and subcutaneous tissue infections (20 sources) Infection of toe ; Translations: [Local infection of the skin and subcutaneous tissue, unspecified] 05-26-2020 Episodic Unclassified (20 sources) Body mass index (BMI) 37.0-37.9, adult; Translations: [Body mass index (BMI) 40.0-44.9, adult] Onset: 12-25-2012 11-16-2014 Chronic Unclassified (6 sources) Long-term drug therapy; Translations: [Other termite treater (current) drug therapy] Onset: 05-25-2015 05-25-2015 Unclassified (6 sources) Percutaneous transluminal coronary angioplasty ; Translations: [Coronary angioplasty status] Onset: 12-19-2012 12-19-2012 Unclassified (1 source) Established Patient Onset: 11-30-2024 Unclassified (1 source) Other persistent atrial fibrillation; Translations: [Persistent atrial fibrillation (HCC)] Onset: 03-31-2020 Varicose veins of lower extremity (20 sources) Venous stasis ulcer with edema of right lower leg; Translations: [Varicose veins of right lower extremity with ulcer of unspecified site] 03-19-2023 Episodic Past or Other Problems Problem Classification Problem Date Documented Da te Episodic/Chronic Acute and unspecified renal failure (20 sources) Injury of kidney; Translations: [Acute kidney failure, unspecified] Onset: 11-06-2019 Resolved: 06-21-2020 12-29-2019 Episodic Calculus of urinary tract (20 sources) Kidney stone; Translations: [Calculus of kidney] Onset: 10-17-2016 Resolved: 04-24-2018 04-24-2018 Episodic Chronic ulcer of skin (20 sources) Superficial skin ulcer of lower limb; Translations: [Non-pressure chronic ulcer of unspecified part of right lower leg limited to breakdown of skin] Onset: 04-24-2018 Resolved: 07-24-2018 10-01-2022 Chronic Diabetes mellitus without complication (20 sources) Diabetes mellitus; Translations: [Uncontrolled diabetes mellitus] Onset: 12-19-2012 Resolved: 06-07-2023 12-19-2012 Chronic Genitourinary symptoms and ill-defined conditions (20 sources) Blood in urine; Translations: [Hematuria, unspecified] Onset: 05-31-2014 Resolved: 08-19-2014 08-19-2014 Episodic Infective arthritis and osteomyelitis (except that caused by tuberculosis or sexually transmitted disease) (20 sources) Osteomyelitis of forefoot; Translations: [Osteomyelitis, unspecified] Onset: 09-17-2019 Resolved: 06-21-2020 10-01-2019 Chronic Other aftercare (20 sources) Long-term current use of anticoagulant; Translations: [emt intermediate (current) use of anticoagulants] Onset: 05-31-2014 Resolved: 08-19-2014 08-19-2014 Episodic Other bone disease and musculoskeletal deformities (15 sources) History of partial amputation of right toe; Translations: [Acquired absence of other right toe(s)] Onset: 09-17-2019 09-29-2019 Episodic Other circulatory disease (12 sources) Elevated blood-pressure reading without diagnosis of hypertension; Translations: [Elevated blood-pressure reading, without diagnosis of hypertension] Onset: 05-27-2013 Resolved: 11-16-2014 05-27-2013 Episodic Other diseases of veins and lymphatics (20 sources) Venous insufficiency (chronic) (peripheral); Translations: [Venous (peripheral) insufficiency, unspecified] Onset: 10-06-2020 Resolved: 11-30-2020 03-19-2023 Episodic Other lower respiratory disease (6 sources) Dyspnea; Translations: [Shortness of breath] Onset: 02-06-2017 02-06-2017 Episodic Other lower respiratory disease (20 sources) Dyspnea on exertion; Translations: [Dyspnea, unspecified] Onset: 11-06-2019 11-06-2019 Episodic Other lower respiratory disease (1 source) Other forms of dyspnea; Translations: [ROBIN (dyspnea on exertion)] Onset: 08-13-2022 Episodic Other male genital disorders (20 sources) Acquired hydrocele; Translations: [Hydrocele, unspecified] Onset: 07-04-2023 Resolved: 12-11-2023 07-04-2023 Episodic Other male genital disorders (20 sources) Cyst of testis; Translations: [Benign cyst of testis] Onset: 07-26-2023 Resolved: 12-11-2023 07-26-2023 Episodic Other screening for suspected conditions (not mental disorders or infectious disease) (20 sources) Cardiovascular stress test abnormal; Translations: [Abnormal result of other cardiovascular function study] Resolved: 08-19-2014 Episodic Residual codes; unclassified (20 sources) Obstructive sleep apnea syndrome; Translations: [Obstructive sleep apnea (adult) (pediatric)] Onset: 08-13-2013 Resolved: 08-19-2014 03-10-2020 Chronic Residual codes; unclassified (20 sources) Memory impairment; Translations: [Other amnesia] Onset: 08-13-2013 08-13-2013 Episodic Residual codes; unclassified (20 sources) Other specified health status; Translations: [Other drug allergy] Onset: 03-31-2020 03-31-2020 Episodic Residual codes; unclassified (20 sources) Suspected clinical finding; Translations: [Contact with and (suspected) exposure to asbestos] Resolved: 08-19-2014 08-19-2014 Episodic Screening and history of mental health and substance abuse codes (20 sources) Tobacco use and exposure - finding; Translations: [Personal history of nicotine dependence] Onset: 05-31-2014 Resolved: 08-19-2014 08-19-2014 Episodic Unclassified (20 sources) Body mass index (BMI) 27.0-27.9, adult; Translations: [Family history of stroke] Onset: 12-25-2012 Resolved: 11-16-2014 11-16-2014 Episodic Results Test Name Value Interpretation Reference Range Facility [facility] 11-30-2024 CNOV Office Visit (PODIST) MIGUELANGEL MOYA ([id number]) 1950 M Date Time Provider Department 11/30/24 10:00 AM ARABELLA HEREDIA PODIST During your visit today, we recorded the following information about you: Arabella Heredia DPM 11/30/2024 7:23 PM Signed This 74 year old male presents for painful calluses bilateral feet. Prior partial toe amputation left. Diabetic. No other pedal complaints PAIN EVALUATION 11/30/2024 0958 Pain Level: -- 8-right heel, 10- bilateral callous regions, 8 right dorsal foot lump Pain Location: -- bilateral sub 5th MTPJ region, right heel, right dorsal foot Description: Sharp sharp to all regions Duration Units: Years months for heel and dorsal foot Frequency: Intermittent PAST MEDICAL HISTORY Diagnosis Date Acute kidney injury (DANIELA) with acute tubular necrosis (ATN) 11/06/2019 CAD (coronary artery disease) 10/07/2007 70% stenosis circumflex 2nd marginal branch. Drug eluting stent done. Diabetic ulcer of toe of left foot associated with type 2 diabetes mellitus (HCC) 06/21/2020 Esophageal reflux Generalized osteoarthrosis, unspecified site Hydrocele, acquired 07/04/2023 Nephrolithiasis 10/17/2016 NEUROPATHY IN DIABETES 01/30/2006 Nonspecific abnormal results of liver function study Obesity, unspecified JAMES (obstructive sleep apnea) 08/13/2013 declined tx Osteomyelitis of second toe of right foot (HCC) 09/17/2019 Osteomyelitis of third toe of right foot (HCC) 09/17/2019 Other and unspecified hyperlipidemia Paroxysmal atrial fibrillation (HCC) 10/07/2007 Personal history of contact with and (suspected) exposure to asbestos Testicular cyst 07/26/2023 Type II or unspecified type diabetes mellitus without mention of complication, not stated as uncontrolled Unspecified essential hypertension Unspecified venous (peripheral) insufficiency Current Outpatient Medications Medication Sig insulin degludec (TRESIBA FLEXTOUCH U-200) 200 unit/mL (3 mL) injection Inject 120 Units subcutaneously daily at bedtime. insulin aspart U-100 (NOVOLOG FLEXPEN U-100 INSULIN) 100 unit/mL (3 mL) pen Inject 25 Units subcutaneously three times a day before meals. Sliding scale 3 times daily. (80 units daily max) amLODIPine (NORVASC) 2.5 mg tablet Take 1 tablet by mouth once daily. alirocumab (PRALUENT PEN) 75 mg/mL pen Inject 1 mL subcutaneously every other week. metoprolol tartrate, short acting, (LOPRESSOR) 50 mg tablet Take 1 tablet by mouth three times a day. clopidogrel (PLAVIX) 75 mg tablet Take 1 tablet by mouth once daily. gabapentin (NEURONTIN) 100 mg capsule Take 1 capsule by mouth three times a day for 360 days. nitroglycerin sublingual (NITROQUICK) 0.4 mg SL tablet Dissolve 1 tablet under the tongue every 5 minutes as needed for chest pain. IF NO PAIN RELIEF WITH 2ND DOSE, CALL 911 spironolactone (ALDACTONE) 25 mg tablet Take 1 tablet by mouth once daily. furosemide (LASIX) 80 mg tablet Take 1 tablet by mouth two times a day. Three times per day as directed PRN aspirin, enteric coated (ASPIRIN, ENTERIC COATED) 81 mg EC tablet Take 1 tablet by mouth once daily. BIOTIN ORAL Take 1 tablet by mouth once daily. Fish Oil-Jackson-3 Fatty Acids (FISH OIL OMEGA 3-6-9) 300-1,000 mg CpDR Take 3000 mg daily. Lancets (ONE TOUCH ULTRASOFT LANCETS) [facility] [place] twice daily. Use as instructed ( may dispense Deuca brand) VITAMIN C 1,000 MG TAB Take one(1) tablet daily. Insulin Spruce, Disposable, 32 gauge x Use with insulin 4 times a day. Dx: E11.40; Z79.4 blood sugar diagnostic (BLOOD GLUCOSE TEST) test strip Test blood sugar(s) 4-5 times daily Dx: Type 2 DM - Uncontrolled E11.65 Insulin: Yes MULTIVITAMIN TAB Take one(1) tablet daily. No current facility-administere d medications for this visit. ALLERGIES Allergen Reactions Metolazone Rash Altace [Ramipril] Intolerance Bactrim [Sulfametho* Hives Diovan [Valsartan] Propofol Other: See Comments agitation Ramipril Seasonal Allergies Other: See Comments Kacdsvw-Mkn-Fkh Red* Other: See Comments Muscle aches OBJECTIVE: Patient presents WB with regular shoe gear Neurovascular status is grossly unchanged. Absent vibratory sensation at the hallux IPJ. Intact protective sensation hyperkeratotic tissue noted subfifth MTP joint bilateral, plantar lateral heel x 2 bilateral. Hemoglobin A1C (%) Date Value 06/03/2024 6.1 11/26/2020 9.1 08/15/2020 8.6 02/13/2020 7.6 10/01/2019 6.1 04/08/2019 6.0 HGBA1C (%) Date Value 11/30/2022 5.9 01/12/2022 6.3 ASSESSMENT/PLAN: 1. DM (diabetes mellitus), type 2 with neurological complications (HCC) - ICD9: 250.60, ICD10: E11.49 (primary diagnosis) 2. [place] or callus - ICD9: 700, ICD10: L84 PLAN: Treatment today consisted of -Exam -Debrided calluses x 4 with #15 blade Continue follow up with endo Continue with diabetic shoes Follow-up (more content not included)... Normal [facility] CNNURSEon 10-19-2024 CNNURSE Nurse Visit (CARDWS) MIGUELANGEL MOYA ([id number]) 1950 M Date Time Provider Department 10/19/24 9:45 AM NURSE CARD WSTR CARDWS During your visit today, we recorded the following information about you: Referring Provider: REGULO STOVER [[id number]] Allergies As of Date: 10/19/2024 Noted Allergy Reaction METOLAZONE 01/15/2022 2 - Rash ALTACE (RAMIPRIL) 12/29/2004 5 - Intolerance BACTRIM (SULFAMETHOXAZOLE-TR IMETH*08/15/2020 4 - Hives DIOVAN (VALSARTAN) 12/29/2004 PROPOFOL 02/10/2020 14 - Other: See Comments Comments: agitation RAMIPRIL 11/05/2007 SEASONAL ALLERGIES 08/04/2012 14 - Other: See Comments UGDCCAA-KJY-PCH REDUCTASE INHIBIT*06/18/2011 14 - Other: See Comments Comments: Muscle aches Date Reviewed: 10/16/2024 Reviewed by: Leila Suárez, 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 - Fully Assessed Visit Diagnoses:Coronary artery disease of [place] artery of [place] heart with stable angina pectoris [I25.118] ROBIN (dyspnea on exertion) [R06.09] Order(s):[] regadenoson 0.4 mg injection (LEXISCAN)Disp: Rfl: Prescriptions as of 10/19/2024 - amLODIPine (NORVASC) 2.5 mg tablet Take 1 tablet by mouth once daily. - alirocumab (PRALUENT PEN) 75 mg/mL pen Inject 1 mL subcutaneously every other week. - insulin aspart U-100 (NOVOLOG FLEXPEN U-100 INSULIN) 100 unit/mL (3 mL) Inject 25 Units subcutaneously three times a day before meals. Sliding scale 3 times daily. (80 units daily max) - metoprolol tartrate, short acting, (LOPRESSOR) 50 mg tablet Take 1 tablet by mouth three times a day. - clopidogrel (PLAVIX) 75 mg tablet Take 1 tablet by mouth once daily. - gabapentin (NEURONTIN) 100 mg capsule Take 1 capsule by mouth three times a day for 360 days. - nitroglycerin sublingual (NITROQUICK) 0.4 mg SL tablet Dissolve 1 tablet under the tongue every 5 minutes as needed for chest pain. IF NO PAIN RELIEF WITH 2ND DOSE, CALL 911 - spironolactone (ALDACTONE) 25 mg tablet Take 1 tablet by mouth once daily. - furosemide (LASIX) 80 mg tablet Take 1 tablet by mouth two times a day. Three times per day as directed PRN - aspirin, enteric coated (ASPIRIN, ENTERIC COATED) 81 mg EC tablet Take 1 tablet by mouth once daily. - insulin degludec (TRESIBA FLEXTOUCH U-200) 200 unit/mL (3 mL) injection Inject 120 Units subcutaneously daily at bedtime. - Insulin Spruce, Disposable, 32 gauge x 5/32 Use with insulin 4 times a day. Dx: E11.40; Z79.4 - blood sugar diagnostic (BLOOD GLUCOSE TEST) test strip Test blood sugar(s) 4-5 times daily Dx: Type 2 DM - Uncontrolled E11.65 Insulin: Yes - BIOTIN ORAL Take 1 tablet by mouth once daily. - Fish Oil-Jackson-3 Fatty Acids (FISH OIL OMEGA 3-6-9) 300-1,000 mg CpDR Take 3000 mg daily. - Lancets (ONE TOUCH ULTRASOFT LANCETS) Misc lancets twice daily. Use as instructed ( may dispense Deuca brand) - MULTIVITAMIN TAB Take one(1) tablet daily. - VITAMIN C 1,000 MG TAB Take one(1) tablet daily. Problem List As Of Date 10/19/2024 Noted Resolved GENERAL OSTEOARTHROSIS [M15.9] ESOPHAGEAL REFLUX [K21.9] Venous (peripheral) insufficiency [I87.2] Personal history of contact with and (suspected* 08/19/2014 Type 2 diabetes mellitus with diabetic neuropat* Class 3 severe obesity with body mass index (BM* Nonspecific abnormal results of liver function * 08/19/2014 Other hyperlipidemia [E78.49] Essential hypertension [I10] Diabetic polyneuropathy (HCC) [E11.42] 01/30/2006 04/24/2018 Coronary artery disease of [place] artery of [place]*10/07/2007 Persistent atrial fibrillation (HCC) [I48.19] 10/07/2007 JAMES (obstructive sleep apnea) [G47.33] 08/13/2013 08/19/2014 Memory disturbance [R41.3] 08/13/2013 Hematuria [R31.9] 05/31/2014 08/19/2014 BPH (benign prostatic hyperplasia) [N40.0] 05/31/2014 Chronic anticoagulation [Z79.01] 05/31/2014 08/19/2014 History of smoking [Z87.891] 05/31/2014 08/19/2014 Nephrolithiasis [N20.0] 10/17/2016 04/24/2018 Skin ulcer of toe of right foot, limited to catie*04/24/2018 07/24/2018 Osteomyelitis of second toe of right foot (HCC)*09/17/2019 06/21/2020 Osteomyelitis of third toe of right foot (HCC) *09/17/2019 06/21/2020 History of partial amputation of toe (HCC) [Z89*09/17/2019 Acute kidney injury (DANIELA) with acute tubular ne*11/06/2019 06/21/2020 ROBIN (dyspnea on exertion) [R06.09] 11/06/2019 Statin intolerance [Z78.9] 03/31/2020 Chronic diastolic congestive heart failure (HCC*03/31/2020 Diabetic ulcer of toe of left foot associated w*06/21/2020 10/06/2020 Coronary arteriosclerosis after percutaneous tr*07/02/2020 07/02/2020 Valvular heart disease [I38] 08/18/2020 Venous stasis ulcer of right calf limited to br*10/06/2020 11/30/2020 Non-seasonal allergic rhinitis [J30.89] 11/30/2020 Uncontrolled diabetes mellitus [IXY6273] 03/15/2021 06/07/2023 Hypertensive heart disease with chronic diastol*05/30/2022 Atherosclerosis of aorta (HCC) [I70.0] (more content not included)... Normal [facility] Microalb:Creat Ratio,Random URon 10-19-2024 MALB:CREAT 73.2 mg/g CRE High <30 mg/g CRE [facility] Comment on above: Result Comment: AMENDED REPORT 10/19/242119 MALB:CREAT previously reported as: 732.1 mg/g CRE Performed By: #### L [phone] #### [facility] [place], [address] NM CARDIAC PERF STRESS/PHARM on 10-19-2024 NM CARDIAC PERF STRESS/PHARM * * *Final Report* * * DATE OF EXAM: Oct 19 2024 11:30AM WON 0006 - NM CARDIAC PERF STRESS/PHARM / PROCEDURE REASON: multiple diagnoses * * * * Physician Interpretation * * * * Stress Magnaflux Operator Report: [facility] Date of service: 10/19/2024 6:57:04 AM Supervising physician: Regulo Stover MD PATIENT: Name: MR. MIGUELANGEL MOYA Age: 74 years Gender: M The supervising physician was in the department and immediately available. * * * Final * * * PATIENT: Name: MR. MIGUELANGEL MOYA Age: 74 years Gender: M CONCLUSIONS: 1. SPECT Perfusion Study: Normal. 2. There is no scintigraphic evidence for inducible ischemia. 3. No evidence of scarred myocardium. 4. Left ventricle is small. The left ventricle systolic function is hyperdynamic. 5. Right ventricle is normal in size. The right ventricle systolic function is normal. 6. This is a low risk scan. Gated Stress FBP LVEF % 78 Prior Study Comparison Prior nuclear cardiology exam was performed on 11/04/12. Nuclear Med Report:1-Day Gated SPECT Myocardial Perfusion with Regadenoson Stress: Myocardial perfusion imaging was performed at rest 30 minutes following the IV injection of the radiotracer. The patient received 0.4 mg of regadenoson, via rapid IV push, immediately followed by radiotracer IV. Gated post stress tomographic imaging was performed 30 to 60 minutes later. See administered radiotracer and doses below. [facility] Date of service: 10/19/2024 6:57:04 AM Ordering Physician: REGULO STOVER. Requesting Physician: REGULO STOVER Indication: CP - ECG uninterpretable OR unable to exercise and Dyspnea Interpreting physician: Emma Salazar MD Height: 170.18 cm BSA: 2.48 m? Weight: 130.18 kg BMI: 45.0 kg/m? Exam Type: Rest Stress Radiopharm: Tc-99m Tetrofosmin Tc-99m Tetrofosmin Dosage(mCi): 17.1 51.4 Stress Agent: Regadenoson 0.4mg Supply provided from [facility] Image Quality The overall study imaging quality was deemed to be good. FINDINGS: Stress IR:3D Gated Stress FBP LVEF: 78 % ED Volume: 92 ml ES Volume: 20 ml TID: 0.90 Perfusion Findings Stress IR:3D - Summed Score=1 There is a mild perfusion defect in the basal inferior segment. All remaining scored segments show normal perfusion. Rest IR:3D - Summed Score=0 All segments demonstrate normal perfusion. Stress IR:3D Rest IR:3D Summed Score=1 Summed Score=0 LEFT VENTRICLE The left ventricle is small. Left ventricular systolic function is hyperdynamic. Right Ventricle The right ventricle is normal in size. Right ventricle systolic function is normal. Stress Test Findings: There is no scintigraphic evidence for inducible ischemia. There is no evidence of scarring. * * * Final * * * Stress ECG Report: [facility] Date of service: 10/19/2024 6:57:04 AM Ordering physician: REGULO STOVER digital advertising specialist: Yoselin Hilario RN Interpreting physician: Regulo Stover MD Patient name: MR. MIGUELANGEL MOYA Age: 74 years Gender: M Height: 170.18 cm BSA: 2.48 m? Weight: 130.18 kg BMI: 45.0 kg/m? Indication: Atherosclerotic heart disease NOS and Dyspnea on exertion Stress ECG Conclusion: Conclusion: Normal with exception due to borderline ST changes Stress ECG Summary: The patient's resting heart rate was 90 bpm and blood pressure was 132/82 mmHg. The test was terminated due to end of protocol. No symptoms provoked during stress. The maximum heart rate was 101 bpm, which is 69% of the predicted heart rate for age. Peak blood pressure was 130/78 mmHg. The double product achieved was 81017. Previous cardiovascular interventions: PCI (2007) PCI (2019) PCI (2020) Medications: Last Used AMLODIPINE 2 Days LASIX 1 Days METOPROLOL 2 Days NITROGLYCERIN PRN SPIRONOLACTONE 1 Days Resting ECG: Atrial Fib/Flutter and Rare PVCs (<3/Min) Symptoms at rest: No symptoms Pharamcologic Protocol: Regadenoson Stress Exercise Table: +-----+---+---+---+ Stage HR SYS MARCY +-----+---+---+---+ 1 93 +-----+---+---+---+ 2 113 130 76 +-----+---+---+---+ 3 102 130 76 +-----+---+---+---+ 4 101 130 78 +-----+---+---+---+ +-----+---+---+---+ HR SYS MARCY +-----+---+---+---+ Final 101 130 78 +-----+---+---+---+ +------+ ---------+ ---------+ Stage ST: [place], [place], MM Arrhythmias +------+ ---------+ ---------+ 1 Rare PVC (<3/min) +------+ ---------+ ---------+ (more content not included)... Normal [facility] Heart Perfusion W stress and W radionuclide Azam 10-19-2024 * * *Final Report* * * DATE OF EXAM: Oct 19 2024 11:30AM [address] CARDIAC PERF STRESS/PHARM / PROCEDURE REASON: multiple diagnoses * * * * Physician Interpretation * * * * Stress Magnaflux Operator Report: [facility] Date of service: 10/19/2024 6:57:04 AM Supervising physician: Regulo Stover MD PATIENT: Name: MR. MIGUELANGEL MOYA Age: 74 years Gender: M The supervising physician was in the department and immediately available. * * * Final * * * PATIENT: Name: MR. MIGUELANGEL MOYA Age: 74 years Gender: M CONCLUSIONS: 1. SPECT Perfusion Study: Normal. 2. There is no scintigraphic evidence for inducible ischemia. 3. No evidence of scarred myocardium. 4. Left ventricle is small. The left ventricle systolic function is hyperdynamic. 5. Right ventricle is normal in size. The right ventricle systolic function is normal. 6. This is a low risk scan. Gated Stress FBP LVEF % 78 Prior Study Comparison Prior nuclear cardiology exam was performed on 11/04/12. Nuclear Med Report:1-Day Gated SPECT Myocardial Perfusion with Regadenoson Stress: Myocardial perfusion imaging was performed at rest 30 minutes following the IV injection of the radiotracer. The patient received 0.4 mg of regadenoson, via rapid IV push, immediately followed by radiotracer IV. Gated post stress tomographic imaging was performed 30 to 60 minutes later. See administered radiotracer and doses below. [facility] Date of service: 10/19/2024 6:57:04 AM Ordering Physician: REGULO STOVER. Requesting Physician: REGULO STOVER Indication: CP - ECG uninterpretable OR unable to exercise and Dyspnea Interpreting physician: Emma Salazar MD Height: 170.18 cm BSA: 2.48 m Weight: 130.18 kg BMI: 45.0 kg/m Exam Type: Rest Stress Radiopharm: Tc-99m Tetrofosmin Tc-99m Tetrofosmin Dosage(mCi): 17.1 51.4 Stress Agent: Regadenoson 0.4mg Supply provided from [facility] Image Quality The overall study imaging quality was deemed to be good. FINDINGS: Stress IR:3D Gated Stress FBP LVEF: 78 % ED Volume: 92 ml ES Volume: 20 ml TID: 0.90 Perfusion Findings Stress IR:3D - Summed Score=1 There is a mild perfusion defect in the basal inferior segment. All remaining scored segments show normal perfusion. Rest IR:3D - Summed Score=0 All segments demonstrate normal perfusion. Stress IR:3D Rest IR:3D Summed Score=1 Summed Score=0 LEFT VENTRICLE The left ventricle is small. Left ventricular systolic function is hyperdynamic. Right Ventricle The right ventricle is normal in size. Right ventricle systolic function is normal. Stress Test Findings: There is no scintigraphic evidence for inducible ischemia. There is no evidence of scarring. * * * Final * * * Stress ECG Report: [facility] Date of service: 10/19/2024 6:57:04 AM Ordering physician: REGULO STOVER digital advertising specialist: Yoselin Hilario RN Interpreting physician: Regulo Stover MD Patient name: MR. MIGUELANGEL MOYA Age: 74 years Gender: M Height: 170.18 cm BSA: 2.48 m Weight: 130.18 kg BMI: 45.0 kg/m Indication: Atherosclerotic heart disease NOS and Dyspnea on exertion Stress ECG Conclusion: Conclusion: Normal with exception due to borderline ST changes Stress ECG Summary: The patient's resting heart rate was 90 bpm and blood pressure was 132/82 mmHg. The test was terminated due to end of protocol. No symptoms provoked during stress. The maximum heart rate was 101 bpm, which is 69% of the predicted heart rate for age. Peak blood pressure was 130/78 mmHg. The double product achieved was 00399. Previous cardiovascular interventions: PCI (2007) PCI (2019) PCI (2020) Medications: Last Used AMLODIPINE 2 Days LASIX 1 Days METOPROLOL 2 Days NITROGLYCERIN PRN SPIRONOLACTONE 1 Days Resting ECG: Atrial Fib/Flutter and Rare PVCs (<3/Min) Symptoms at rest: No symptoms Pharamcologic Protocol: Regadenoson Stress Exercise Table: +-----+---+---+---+ Stage HR SYS MARCY +-----+---+---+---+ 1 93 +-----+---+---+---+ 2 113 130 76 +-----+---+---+---+ 3 102 13 (more content not included)... DIVISION OF RADIOLOGY Provider, [facility] [place] - 10/19/2024 * * *Final Report* * * DATE OF EXAM: Oct 19 2024 11:30AM CASSANDRA 0006 - [place] CARDIAC PERF STRESS/PHARM / PROCEDURE REASON: multiple diagnoses * * * * Physician Interpretation * * * * Stress Magnaflux Operator Report: [facility] Date of service: 10/19/2024 6:57:04 AM Supervising physician: Regulo Stover MD PATIENT: Name: MR. MIGUELANGEL MOYA Age: 74 years Gender: M The supervising physician was in the department and immediately available. * * * Final * * * PATIENT: Name: MR. MIGUELANGEL MOYA Age: 74 years Gender: M CONCLUSIONS: 1. SPECT Perfusion Study: Normal. 2. There is no scintigraphic evidence for inducible ischemia. 3. No evidence of scarred myocardium. 4. Left ventricle is small. The left ventricle systolic function is hyperdynamic. 5. Right ventricle is normal in size. The right ventricle systolic function is normal. 6. This is a low risk scan. Gated Stress FBP LVEF % 78 Prior Study Comparison Prior nuclear cardiology exam was performed on 11/04/12. Nuclear Med Report:1-Day Gated SPECT Myocardial Perfusion with Regadenoson Stress: Myocardial perfusion imaging was performed at rest 30 minutes following the IV injection of the radiotracer. The patient received 0.4 mg of regadenoson, via rapid IV push, immediately followed by radiotracer IV. Gated post stress tomographic imaging was performed 30 to 60 minutes later. See administered radiotracer and doses below. [facility] Date of service: 10/19/2024 6:57:04 AM Ordering Physician: REGULO STOVER. Requesting Physician: REGULO STOVER Indication: CP - ECG uninterpretable OR unable to exercise and Dyspnea Interpreting physician: Emma Salazar MD Height: 170.18 cm BSA: 2.48 m Weight: 130.18 kg BMI: 45.0 kg/m Exam Type: Rest Stress Radiopharm: Tc-99m Tetrofosmin Tc-99m Tetrofosmin Dosage(mCi): 17.1 51.4 Stress Agent: Regadenoson 0.4mg Supply provided [facility] Image Quality The overall study imaging quality was deemed to be good. FINDINGS: Stress IR:3D Gated Stress FBP LVEF: 78 % ED Volume: 92 ml ES Volume: 20 ml TID: 0.90 Perfusion Findings Stress IR:3D - Summed Score=1 There is a mild perfusion defect in the basal inferior segment. All remaining scored segments show normal perfusion. Rest IR:3D - Summed Score=0 All segments demonstrate normal perfusion. Stress IR:3D Rest IR:3D Summed Score=1 Summed Score=0 LEFT VENTRICLE The left ventricle is small. Left ventricular systolic function is hyperdynamic. Right Ventricle The right ventricle is normal in size. Right ventricle systolic function is normal. Stress Test Findings: There is no scintigraphic evidence for inducible ischemia. There is no evidence of scarring. * * * Final * * * Stress ECG Report: [facility] Date of service: 10/19/2024 6:57:04 AM Ordering physician: REGULO STOVER digital advertising specialist: Yoselin Hilario RN Interpreting physician: Regulo Stover MD Patient name: MR. MIGUELANGEL MOYA Age: 74 years Gender: M Height: 170.18 cm BSA: 2.48 m Weight: 130.18 kg BMI: 45.0 kg/m Indication: Atherosclerotic heart disease NOS and Dyspnea on exertion Stress ECG Conclusion: Conclusion: Normal with exception due to borderline ST changes Stress ECG Summary: The patient's resting heart rate was 90 bpm and blood pressure was 132/82 mmHg. The test was terminated due to end of protocol. No symptoms provoked during stress. The maximum heart rate was 101 bpm, which is 69% of the predicted heart rate for age. Peak blood pressure was 130/78 mmHg. The double product achieved was 51503. Previous cardiovascular interventions: PCI (2007) PCI (2019) PCI (2020) Medications: Last Used AMLODIPINE 2 Days LASIX 1 Days METOPROLOL 2 Days NITROGLYCERIN PRN SPIRONOLACTONE 1 Days Resting ECG: Atrial Fib/Flutter and Rare PVCs (<3/Min) Symptoms at rest: No symptoms Pharamcologic Protocol: Regadenoson Stress Exercise Table: +-----+---+---+---+ Stage HR SYS MARCY +-----+---+---+---+ 1 93 +-----+---+---+---+ 2 113 130 76 +-----+---+---+---+ 3 102 130 76 +-----+---+---+---+ 4 101 130 78 +-----+---+---+---+ +-----+---+---+---+ HR SYS MARCY +-----+---+---+---+ Final 101 130 78 +-----+---+---+---+ +------+ ---------+ ---------+ Stage ST: Lead, S (more content not included)... [facility] Radiology Study observation (narrative) Jane valdez [facility] Heart Perfusion W stress and W radionuclide IVOrdered By: [facility] Provider on 10-19-2024 [facility] Jennifer 10-15-2024 PATRICIAN Telephone (INTMWS) MIGUELANGEL MOYA ([id number]) 1950 M Date Time Provider Department 10/15/24 KRISHNA REYNOLDS During your visit today, we recorded the following information about you: Christina Pedro RN 10/15/2024 12:11 PM Signed reports pt is having a nuclear stress test on Saturday morning at 8:30 am and they were instructed to check with pcp to ask if pt should take his Novolog 25 units that morning? Also has novolog sliding scale that morning but states he probably won't need that. Please advise and phone pt with reply. Leila Suárez APRN.CNP 10/16/2024 6:54 AM Signed Typically the scheduled dose of Novolong should be held and patient should take sliding scale insulin only. What are the sliding scale doses? Leila Suárez APRN.Christina Farris RN 10/16/2024 8:24 AM Signed Phoned pt and spoke with . Given provider's message. 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 Pt is required to fast 4 hours before procedure except for water. Reports if she uses sliding scale, it's in increments of 50: >150 add 1 unit to routine dose >200 add 2 units to routine dose >250 add 3 units to routine dose >300 add 4, and so on... Reports pt's BS is usually not over 150, it stays below 100. Please advise , Jessica. Leila Suárez APRN.CNP 10/16/2024 9:02 AM Signed The standard protocol is to hold scheduled insulin and give sliding scale if indicated by the blood sugar to avoid the blood sugar spiking since he is not getting the scheduled insulin that morning. Check blood fasting blood sugar the day of procedure and give indicated amount of Novolog per sliding scale DEEP Howard Amanda, RN 10/16/2024 9:48 AM Signed Pt's called and is notified of providers message and instructions. She voices understanding. Vernell Lopez RN Allergies As of Date: 10/15/2024 Noted Allergy Reaction METOLAZONE 01/15/2022 2 - Rash ALTACE (RAMIPRIL) 12/29/2004 5 - Intolerance BACTRIM (SULFAMETHOXAZOLE-TR IMETH*08/15/2020 4 - Hives DIOVAN (VALSARTAN) 12/29/2004 PROPOFOL 02/10/2020 14 - Other: See Comments Comments: agitation RAMIPRIL 11/05/2007 SEASONAL ALLERGIES 08/04/2012 14 - Other: See Comments [id number] REDUCTASE INHIBIT*06/18/2011 14 - Other: See Comments Comments: Muscle aches Date Reviewed: 08/10/2024 Reviewed by: Jamaica Hernandez LPN - Fully Assessed Reason for Visit: Patient Question regarding insulin [Other] Prescriptions as of 10/16/2024 - amLODIPine (NORVASC) 2.5 mg tablet Take 1 tablet by mouth once daily. - alirocumab (PRALUENT PEN) 75 mg/mL pen Inject 1 mL subcutaneously every other week. - insulin aspart U-100 (NOVOLOG FLEXPEN U-100 INSULIN) 100 unit/mL (3 mL) Inject 25 Units subcutaneously three times a day before meals. Sliding scale 3 times daily. (80 units daily max) - metoprolol tartrate, short acting, (LOPRESSOR) 50 mg tablet Take 1 tablet by mouth three times a day. - clopidogrel (PLAVIX) 75 mg tablet Take 1 tablet by mouth once daily. - gabapentin (NEURONTIN) 100 mg capsule Take 1 capsule by mouth three times a day for 360 days. - nitroglycerin sublingual (NITROQUICK) 0.4 mg SL tablet Dissolve 1 tablet under the tongue every 5 minutes as needed for chest pain. IF NO PAIN RELIEF WITH 2ND DOSE, CALL 911 - spironolactone (ALDACTONE) 25 mg tablet Take 1 tablet by mouth once daily. - furosemide (LASIX) 80 mg tablet Take 1 tablet by mouth two times a day. Three times per day as directed PRN - aspirin, enteric coated (ASPIRIN, ENTERIC COATED) 81 mg EC tablet Take 1 tablet by mouth once daily. - insulin degludec (TRESIBA FLEXTOUCH U-200) 200 unit/mL (3 mL) injection Inject 120 Units subcutaneously daily at bedtime. - Insulin Spruce, Disposable, 32 gauge x 5/32 Use with insulin 4 times a day. Dx: E11.40; Z79.4 - blood sugar diagnostic (BLOOD GLUCOSE TEST) test strip Test blood sugar(s) 4-5 times daily Dx: Type 2 DM - Uncontrolled E11.65 Insulin: Yes - BIOTIN ORAL Take 1 tablet by mouth once daily. - Fish Oil-Jackson-3 Fatty Acids (FISH OIL OMEGA 3-6-9) 300-1,000 mg CpDR Take 3000 mg daily. - Lancets (ONE TOUCH ULTRASOFT LANCETS) Misc lancets twice daily. Use as instructed ( may dispense Deuca brand) - MULTIVITAMIN TAB Take one(1) tablet daily. - VITAMIN C 1,000 MG TAB Take one(1) tablet daily. Problem List As Of Date 10/15/2024 Noted Resolved GENERAL OSTEOARTHROSIS [M15.9] ESOPHAGEAL REFLUX [K21.9] Venous (peripheral) insufficiency [I87.2] Personal history of contact with and (suspected* 08/19/2014 Type 2 diabetes mellitus with diabetic neuropat* Class 3 severe obesity with body mass index (BM* Nonspecific abnormal results of liver function * 08/19/2014 Other hyperli (more content not included)... [facility]IGU[facility] ([id number]) 1950 M Date Time Provider Department 10/15/24 NURSE CARD TERESA ESQUIVEL During your visit today, we recorded the following information about you: Yoselin Hilario RN 10/15/2024 1:55 PM Signed Called and reviewed the below instructions with patient and his retired RN . Yoselin Hilario RN You are scheduled for a stress test on 10/19/24 at 8:30am. This stress test will appear as 3 appointments on your schedule. You may get multiple reminder calls, but please arrive at the earliest scheduled appointment. Please follow below instructions: *NOTHING BY MOUTH 4 HOURS prior to this test. (you may have sips of water) *NO CAFFEINE FOR 24 HOURS PRIOR TO TESTING (including TEA even decaf, COFFEE- even decaf, CHOCOLATE, ROLAND- even decaf) *Do NOT take MEDICATIONS CONTAINING CAFFEINE/XANTHINE for 24 HOURS prior to testing: Theophylline, Trental, Excedrin, Anacin, Goody Powders, No Doz, Vivarin, Midol, Diurex, Fiorinal, Fioricet, Esgic (butalbital) *Do NOT take Calcium Channel Blockers 24 HOURS prior to test. *Do NOT take Beta blockers 24 HOURS prior to test UNLESS your doctor tells you otherwise. *Do NOT use the following medications 48 HOURS prior to this test: Viagra(Sildenafil citrate), Cialis(Tadalafil), Vardenafil (Levitra, Stanyx), Avanfil (Stendra). *Do not take any of these meds prior to test unless provider directs you otherwise; Nitroglycerine (ex:Deponit, Nitrostat) Isosorbide (ex:Isordil, Sorbitrate,Imdur,Ism o). Medications on your list you should hold for 24 HOURS: amlodipine AND metoprolol *All other medications may be taken as you normally would. *Guidelines for Diabetics: If you take insulin to control your blood sugar, ask you physician what amount you should take the day of the test. If you take pills to control blood sugar, on the day of the test, do NOT take them until AFTER the test. *FAILURE TO FOLLOW THESE INSTRUCTIONS WILL RESULT IN HAVING TO RESCHEDULE THE TEST. *If you use an inhaler, bring it along with you just in case *THIS TEST MAY TAKE UP TO 3 HOURS TO COMPLETE. Please check in on the first floor at Radiology: [address]; [place] [address] * If you need to cancel or reschedule this test or have any questions regarding this test, please call [phone]. Allergies As of Date: 10/15/2024 Noted Allergy Reaction METOLAZONE 01/15/2022 2 - Rash ALTACE (RAMIPRIL) 12/29/2004 5 - Intolerance BACTRIM (SULFAMETHOXAZOLE-TR IMETH*08/15/2020 4 - Hives DIOVAN (VALSARTAN) 12/29/2004 PROPOFOL 02/10/2020 14 - Other: See Comments Comments: agitation RAMIPRIL 11/05/2007 SEASONAL ALLERGIES 08/04/2012 14 - Other: See Comments [id number] REDUCTASE INHIBIT*06/18/2011 14 - Other: See Comments Comments: Muscle aches Date Reviewed: 08/10/2024 Reviewed by: Jamaica Hernandez LPN - Fully Assessed Reason for Visit: Stress Test Instructions for 10/19/24 [Other] Prescriptions as of 10/15/2024 - amLODIPine (NORVASC) 2.5 mg tablet Take 1 tablet by mouth once daily. - alirocumab (PRALUENT PEN) 75 mg/mL pen Inject 1 mL subcutaneously every other week. - insulin aspart U-100 (NOVOLOG FLEXPEN U-100 INSULIN) 100 unit/mL (3 mL) Inject 25 Units subcutaneously three times a day before meals. Sliding scale 3 times daily. (80 units daily max) - metoprolol tartrate, short acting, (LOPRESSOR) 50 mg tablet Take 1 tablet by mouth three times a day. - clopidogrel (PLAVIX) 75 mg tablet Take 1 tablet by mouth once daily. - gabapentin (NEURONTIN) 100 mg capsule Take 1 capsule by mouth three times a day for 360 days. - nitroglycerin sublingual (NITROQUICK) 0.4 mg SL tablet Dissolve 1 tablet under the tongue every 5 minutes as needed for chest pain. IF NO PAIN RELIEF WITH 2ND DOSE, CALL 911 - spironolactone (ALDACTONE) 25 mg tablet Take 1 tablet by mouth once daily. - furosemide (LASIX) 80 mg tablet Take 1 tablet by mouth two times a day. Three times per day as directed PRN - aspirin, enteric coated (ASPIRIN, ENTERIC COATED) 81 mg EC tablet Take 1 tablet by mouth once daily. - insulin degludec (TRESIBA FLEXTOUCH U-200) 200 unit/mL (3 mL) injection Inject 120 Units subcutaneously daily at bedtime. - Insulin Spruce, Disposable, 32 gauge x 5/32 Use with insulin 4 times a day. Dx: E11.40; Z79.4 - blood sugar diagnostic (BLOOD GLUCOSE TEST) test strip Test blood sugar(s) 4-5 times daily Dx: Type 2 DM - Uncontrolled E11.65 Insulin: Yes - BIOTIN ORAL Take 1 tablet by mouth once daily. - Fish Oil-Jackson-3 Fatty Acids (FISH OIL OMEGA 3-6-9) 300-1,000 mg CpDR Take 3000 mg daily. - Lancets (ONE TOUCH ULTRASOFT LANCETS) Mis lancets twice daily. Use as instructed ( may dispense Deuca brand) - MULTIVITAMIN TAB Take one(1) tablet daily. - VITAMIN C 1,000 MG TAB Take one(1) tablet daily. Problem List As Of Date 10/15/2024 No (more content not included)... Normal [facility] Anion gap in Serum or Plasma Ordered By: Wood Kraus on 08-12-2024 Anion gap [Moles/Vol] 12 mmol/L 08-06 [facility] BUN/creatinine ratioOrdered By: Wood Kraus on 08-12-2024 Urea nitrogen/Creatinine [Mass ratio] 20.7 mg/mg High 01-11 [facility] CBC-Complete Blood Cnt No Di ffon 08-12-2024 Erythrocyte distribution width (RBC) [Ratio] 13.0 % Normal 11.6-14.6 [facility] Comment on above: Performed By: #### L 100.0500, L501.0900, L500.3600 #### [facility] [address] [place], [address] Hematocrit (Bld) [Volume fraction] 44.9 % Normal 40-54 [facility] Comment on above: Performed By: #### L 100.0500, L501.0900, L500.3600 #### [facility] [address] [place], [address] Hemoglobin (Bld) [Mass/Vol] 15.1 g/dL Normal 13.0-16.5 [facility] Comment on above: Performed By: #### L 100.0500, L501.0900, L500.3600 #### [facility] [address] [place], [address] MCH (RBC) [Entitic mass] 30.6 pg Normal 27.0-32.0 [facility] Comment on above: Performed By: #### L 100.0500, L501.0900, L500.3600 #### [facility] [address] [place], [address] MCHC (RBC) [Mass/Vol] 33.6 g/dL Normal 32-36 [facility] Comment on above: Performed By: #### L 100.0500, L501.0900, L500.3600 #### [facility] [address] [place], [address] MCV (RBC) [Entitic vol] 91.1 fL Normal 80-94 [facility] Comment on above: Performed By: #### L 100.0500, L501.0900, L500.3600 #### [facility] [address] [place], [address] Platelet mean volume (Bld) [Entitic vol] 9.1 fL Normal 6.2-12.0 [facility] Comment on above: Performed By: #### L 100.0500, L501.0900, L500.3600 #### [facility] [address] [place], [address] Platelets (Bld) [#/Vol] 261 10*3/uL Normal 150-450 [facility] Comment on above: Performed By: #### L 100.0500, L501.0900, L500.3600 #### [facility] [address] [place], [address] RBC (Bld) [#/Vol] 4.93 10*6/uL Normal 4.6-6.2 [facility] Comment on above: Performed By: #### L 100.0500, L501.0900, L500.3600 #### [facility] [address] [place], [address] RDW SD 43.3 fl Normal 35.1-43.9 [facility] Comment on above: Performed By: #### L 100.0500, L501.0900, L500.3600 #### [facility] [address] [place], [address] WBC (Bld) [#/Vol] 5.4 10*3/uL Normal 4.4-11.0 [facility] Comment on above: Performed By: #### L 100.0500, L501.0900, L500.3600 #### [facility] [address] [facility] [place], [address] Carbon dioxide, total [Moles /volume] in Central venous bloodOrdered By: Wood Kraus on 08-12-2024 CO2 [Moles/Vol] 23.6 mmol/L 21.0-32.0 [facility] Chloride assayOrdered By: Dilip Kraus on 08-12-2024 Chloride [Moles/Vol] 99 mmol/L 98-108 [facility] Erythrocyte distribution wid th ratioOrdered By: Wood Kraus on 08-12-2024 Erythrocyte distribution width (RBC) [Ratio] 13.0 % 11.6-14.6 [facility] Erythrocyte distribution wid th standard deviationOrdered By: Wood Kraus on 08-12-2024 Erythrocyte distribution width (RBC) [Ratio] 43.3 fl 35.1-43.9 [facility] Glomerular filtration rate ( GFR) estimation/1.73 sq m using serum, plasma, or whole bOrdered By: Wood Kraus on 08-12-2024 GFR/1.73 sq M.predicted among non-blacks MDRD (S/P/Bld) [Vol rate/Area] 77 mL/min/{1.73_m2} >60 [facility] Comment on above: mL/min/1.73m2 CKD-EP I Creatinine Equation (2020) Hematocrit Auto (Bld) [Volum e fraction]Ordered By: Wood Kraus on 08-12-2024 Hematocrit (Bld) [Volume fraction] 44.9 % 40-54 [facility] Hemoglobin measurementOrdere d By: Wood Kraus on 08-12-2024 Hemoglobin (Bld) [Mass/Vol] 15.1 g/dL 13.0-16.5 [facility] MCV (mean corpuscular volume ) determinationOrdered By: Wood Kraus on 08-12-2024 MCV (RBC) [Entitic vol] 91.1 fL 80-94 [facility] Mean corpuscular hemoglobin (MCH) determinationOrdered By: Wood Kraus on 08-12-2024 MCH (RBC) [Entitic mass] 30.6 pg 27.0-32.0 [facility] Mean corpuscular hemoglobin concentration (MCHC) determinationOrdered By: Wood Kraus on 08-12-2024 MCHC (RBC) [Mass/Vol] 33.6 g/dL 32-36 [facility] Mean platelet volume determi nationOrdered By: Wood Kraus on 08-12-2024 Platelet mean volume (Bld) [Entitic vol] 9.1 fL 6.2-12.0 [facility] Platelet countOrdered By: Dilip Kraus on 08-12-2024 Platelets (Bld) [#/Vol] 261 10*3/uL 150-450 [facility] Potassium measurement (mass/ volume)Ordered By: Wood Kraus on 08-12-2024 Potassium (Unsp spec) [Mass/Vol] 4.4 mmol/L 3.3-5.1 [facility] Comment on above: Hemolysis present, R esults could be affected. Protein+Creatinine Ratio,Uri neon 08-12-2024 PROT:CRE RATIO UNABLE TO CALCULATE Normal 0-200 [facility] Comment on above: Performed By: #### L 100.0500, L501.0900, L500.3600 #### [facility] [address] [place], [address] PROTEIN,UR.RAN. < 6.0 Normal 0.0-12.0 [facility] Comment on above: Performed By: #### L 100.0500, L501.0900, L500.3600 #### [facility] [address] [place], [address] UR CREAT 46.80 mg/dL Normal 39.00-259.00 [facility] Comment on above: Performed By: #### L 100.0500, L501.0900, L500.3600 #### [facility] [address] [place], [address] RBC Auto (Bld) [#/Vol]Ordere d By: Wood Kraus on 08-12-2024 RBC (Bld) [#/Vol] 4.93 10*6/uL 4.6-6.2 [facility] Random urine creatinine monroe urement (mass/volume)Ordered By: Wood Kraus on 08-12-2024 Creatinine Unsp time (U) [Mass/Vol] 46.80 mg/dL 39.00-259.00 [facility] Renal Profileon 08-12-2024 Albumin [Mass/Vol] 3.8 g/dL Normal 3.4-4.8 [facility] Comment on above: Order Comment: CBC Performed By: #### L 500.4100, L501.9985, L502.0250, L500.4050 #### [facility] [address] [place], [address] BUN/CRE 20.7 RATIO High 10-20 [facility] Comment on above: Order Comment: CBC Performed By: #### L 500.4100, L501.9985, L502.0250, L500.4050 #### [facility] [address] [place], [address] Calcium [Mass/Vol] 9.3 mg/dL Normal 7.6-11.0 [facility] Comment on above: Order Comment: CBC Performed By: #### L 500.4100, L501.9985, L502.0250, L500.4050 #### [facility] [address] [place], [address] Chloride [Moles/Vol] 99 mmol/L Normal 98-108 [facility] Comment on above: Order Comment: CBC Performed By: #### L 500.4100, L501.9985, L502.0250, L500.4050 #### [facility] [address] [place], [address] CO2 [Moles/Vol] 23.6 mmol/L Normal 21.0-32.0 [facility] Comment on above: Order Comment: CBC Performed By: #### L 500.4100, L501.9985, L502.0250, L500.4050 #### [facility] [address] [place], [address] Creatinine [Mass/Vol] 1.02 mg/dL Normal 0.70-1.20 [facility] Comment on above: Order Comment: CBC Performed By: #### L 500.4100, L501.9985, L502.0250, L500.4050 #### [facility] [address] [place], [address] GAP 12 Normal 5-15 [facility] Comment on above: Order Comment: CBC Performed By: #### L 500.4100, L501.9985, L502.0250, L500.4050 #### [facility] [address] [place], [address] GFR/1.73 sq M.predicted among non-blacks MDRD (S/P/Bld) [Vol rate/Area] 77 mL/min/{1.73_m2} Normal >60 [facility] Comment on above: Order Comment: CBC Result Comment: mL/m in/1.73m2 CKD-EPI Creatinine Equation (2020) Performed By: #### L 500.4100, L501.9985, L502.0250, L500.4050 #### [facility] [address] [place], [address] Glucose [Mass/Vol] 140 mg/dL High 70-99 [facility] Comment on above: Order Comment: CBC Performed By: #### L 500.4100, L501.9985, L502.0250, L500.4050 #### [facility] [address] [place], [address] Potassium [Moles/Vol] 4.4 mmol/L Normal 3.3-5.1 [facility] Comment on above: Order Comment: CBC Result Comment: Hemo lysis present, Results??could be affected. ?? Performed By: #### L 500.4100, L501.9985, L502.0250, L500.4050 #### [facility] [address] [place], [address] Sodium [Moles/Vol] 135 mmol/L Normal 133-145 [facility] Comment on above: Order Comment: CBC Performed By: #### L 500.4100, L501.9985, L502.0250, L500.4050 #### [facility] [address] [place], [address] Urea nitrogen [Mass/Vol] 21 mg/dL High 4-19 [facility] Comment on above: Order Comment: CBC Performed By: #### L 500.4100, L501.9985, L502.0250, L500.4050 #### [facility] [address] [place], [address] Serum creatinine measurement (mass/volume)Ordered By: Wood Kraus on 08-12-2024 Creatinine [Mass/Vol] 1.02 mg/dL 0.70-1.20 [facility] Serum glucose measurement (m ass/volume)Ordered By: Wood Kraus on 08-12-2024 Glucose [Mass/Vol] 140 mg/dL High 70-99 [facility] Serum or plasma albumin monroe urement (mass/volume)Ordered By: Wood Kraus on 08-12-2024 Albumin [Mass/Vol] 3.8 g/dL 3.4-4.8 [facility] Serum or plasma calcium [place] urement (mass/volume)Ordered By: Wood Kraus on 08-12-2024 Calcium [Mass/Vol] 9.3 mg/dL 7.6-11.0 [facility] Serum or plasma urea nitroge n measurement (mass/volume)Ordered By: Wood Kraus on 08-12-2024 Urea nitrogen [Mass/Vol] 21 mg/dL High 4-19 [facility] Sodium levelOrdered By: Babatunde Kraus on 08-12-2024 Sodium [Moles/Vol] 135 mmol/L 133-145 [facility] Urine protein measurement (m ass/volume)Ordered By: Wood Kraus on 08-12-2024 Protein (U) [Mass/Vol] mg/dL 0.0-12.0 [facility] Urine protein/creatinine mas s ratioOrdered By: Wood Kraus on 08-12-2024 Protein/Creatinine (U) [Mass ratio] UNABLE TO CALCULATE mg/g CRE 0-200 [facility] White blood cell (WBC) count Ordered By: Wood Kraus on 08-12-2024 WBC (Bld) [#/Vol] 5.4 10*3/uL 4.4-11.0 [facility] CNOVon 08-10-2024 CNOV Office Visit (ALVIN) MIGUELANGEL MOYA ([id number]) 1950 M Date Time Provider Department 08/10/24 8:40 AM REGULO STOVER During your visit today, we recorded the following information about you: Pulse Respiration Blood pressure Weight 80/minute 16/minute 126/64 130.4 kg Height 1.702 m Regulo Stover MD 08/10/2024 8:53 AM Signed [facility] Cardiology ([place] Liliane Smith) [address] [facility] [id number] OUTPATIENT VISIT DATE 08/10/2024 PRIMARY CARE PHYSICIAN: Krishna Reynolds [address] [place] [address] HISTORY OF PRESENT ILLNESS: Mr. Moya is a 74 year old morbidly obese gentleman with a history of coronary artery disease and prior high risk coronary intervention, diabetes (insulin requiring), chronic diastolic congestive heart failure, hypertension, obstructive sleep apnea (noncompliant with CPAP) and dyslipidemia who presents for routine follow-up. Patient continues to have shortness of breath on exertion. Patient feels like his symptoms are slightly worse than baseline. He has not had symptoms consistent with PND orthopnea. He has trace lower extremity swelling and is compliant with low-sodium diet and compression stockings. He denies palpitations, lightheadedness, dizziness, or syncope. PAST MEDICAL HISTORY Diagnosis Date Acute kidney injury (DANIELA) with acute tubular necrosis (ATN) 11/06/2019 CAD (coronary artery disease) 10/07/2007 70% stenosis circumflex 2nd marginal branch. Drug eluting stent done. Diabetic ulcer of toe of left foot associated with type 2 diabetes mellitus (HCC) 06/21/2020 Esophageal reflux Generalized osteoarthrosis, unspecified site Hydrocele, acquired 07/04/2023 Nephrolithiasis 10/17/2016 NEUROPATHY IN DIABETES 01/30/2006 Nonspecific abnormal results of liver function study Obesity, unspecified JAMES (obstructive sleep apnea) 08/13/2013 declined tx Osteomyelitis of second toe of right foot (HCC) 09/17/2019 Osteomyelitis of third toe of right foot (HCC) 09/17/2019 Other and unspecified hyperlipidemia Paroxysmal atrial fibrillation (HCC) 10/07/2007 Personal history of contact with and (suspected) exposure to asbestos Testicular cyst 07/26/2023 Type II or unspecified type diabetes mellitus [...] cath, L heart LEFT HEART CATH,PERCUTANEOUS 12/29/2019 [facility] TONSILLECTOMY PRIMARY/SECONDARY Tonsillectomy TRANSCATH STENT INIT VESSEL,PERCUT 11/10/2007 Transcath stent init vessel percut, DILIA VASECTOMY UNI/BI SPX W/POSTOP SEMEN EXAMS 1977 SOCIAL HISTORY Social History Tobacco Use Smoking status: Never Smokeless tobacco: Current Types: Chew Vaping Use Vaping status: Never Used Substance Use Topics Alcohol use: Yes Comment: Rare Drug use: Never FAMILY HISTORY Problem Relation Age of Onset Hypertension Mother Stroke Mother Lipids Mother Heart Father Thyroid Sister Cancer Brother 48 bladder and kidney ALLERGIES: ALLERGIES Allergen Reactions Metolazone Rash Altace [Ramipril] Intolerance Bactrim [Sulfametho* Hives Diovan [Valsartan] Propofol Other: See Comments agitation Ramipril Seasonal Allergies Other: See Comments Ksgqwsb-Ngy-Khi Red* Other: See Comments Muscle aches MEDICATIONS: insulin aspart U-100 (NOVOLOG FLEXPEN U-100 INSULIN) 100 unit/mL (3 mL) Inject 25 Units subcutaneously three times a day before meals. Sliding scale 3 times daily. (80 units daily max) metoprolol tartrate, short acting, (LOPRESSOR) 50 mg tablet Take 1 tablet by mouth three times a day. clopidogrel (PLAVIX) 75 mg tablet Take 1 tablet by mouth once daily. gabapentin (NEURONTIN) 100 mg capsule Take 1 capsule by mouth three times a day for 360 days. alirocumab (PRALUENT PEN) 75 mg/mL pen Inject 1 mL subcutaneously every other week. nitroglycerin sublingual (NITROQUICK) 0.4 mg SL tablet Dissolve 1 tablet under the tongue every 5 minutes as needed for chest pain. IF NO PAIN RELIEF WITH 2ND DOSE, CALL 911 spironolactone (ALDACTONE) 25 mg tablet Take 1 tablet by mouth once daily. furosemide (LASIX) 80 mg tablet Take 1 tablet by mouth two times a day. Three times per day as directed PRN aspirin, enteric coated (ASPIRIN, ENTERIC COATED) 81 mg EC tablet (more content not included)... Normal [facility] MIGUELANGEL [facility] ([id number]) 1950 M Date Time Provider Department 08/10/24 REGULO STOVER During your visit today, we recorded the following information about you: Kimber Mendez RN 08/10/2024 1:51 PM Signed Call received from Pt's , Jessica. Verified Pt's name AND . Pt had OV with Dr. Stover this morning. Jessica is requesting the Praluent Rx be printed and mailed to Pt's home address. She received confirmation of a patient assistance program but needs to have the paper Rx in hand when she goes to the pharmacy. Verified address on file is correct. Kimber Mendez RN August 10, 2024 1:50 PM Jamaica Hernandez LPN 08/10/2024 4:53 PM Signed Printed and mailed to patient per request. Jamaica Hernandez LPN Allergies As of Date: 08/10/2024 Noted Allergy Reaction METOLAZONE 01/15/2022 2 - Rash ALTACE (RAMIPRIL) 12/29/2004 5 - Intolerance BACTRIM (SULFAMETHOXAZOLE-TR IMETH*08/15/2020 4 - Hives DIOVAN (VALSARTAN) 12/29/2004 PROPOFOL 02/10/2020 14 - Other: See Comments Comments: agitation RAMIPRIL 11/05/2007 SEASONAL ALLERGIES 08/04/2012 14 - Other: See Comments [id number] REDUCTASE INHIBIT*06/18/2011 14 - Other: See Comments Comments: Muscle aches Date Reviewed: 08/10/2024 Reviewed by: Jamaica Hernandez LPN - Fully Assessed Reason for Visit: Prescription Request [Other] Prescriptions as of 08/10/2024 - alirocumab (PRALUENT PEN) 75 mg/mL pen Inject 1 mL subcutaneously every other week. - insulin aspart U-100 (NOVOLOG FLEXPEN U-100 INSULIN) 100 unit/mL (3 mL) Inject 25 Units subcutaneously three times a day before meals. Sliding scale 3 times daily. (80 units daily max) - metoprolol tartrate, short acting, (LOPRESSOR) 50 mg tablet Take 1 tablet by mouth three times a day. - clopidogrel (PLAVIX) 75 mg tablet Take 1 tablet by mouth once daily. - gabapentin (NEURONTIN) 100 mg capsule Take 1 capsule by mouth three times a day for 360 days. - nitroglycerin sublingual (NITROQUICK) 0.4 mg SL tablet Dissolve 1 tablet under the tongue every 5 minutes as needed for chest pain. IF NO PAIN RELIEF WITH 2ND DOSE, CALL 911 - spironolactone (ALDACTONE) 25 mg tablet Take 1 tablet by mouth once daily. - furosemide (LASIX) 80 mg tablet Take 1 tablet by mouth two times a day. Three times per day as directed PRN - aspirin, enteric coated (ASPIRIN, ENTERIC COATED) 81 mg EC tablet Take 1 tablet by mouth once daily. - insulin degludec (TRESIBA FLEXTOUCH U-200) 200 unit/mL (3 mL) injection Inject 120 Units subcutaneously daily at bedtime. - amLODIPine (NORVASC) 2.5 mg tablet Take 1 tablet by mouth once daily. - Insulin Spruce, Disposable, 32 gauge x 5/32 Use with insulin 4 times a day. Dx: E11.40; Z79.4 - blood sugar diagnostic (BLOOD GLUCOSE TEST) test strip Test blood sugar(s) 4-5 times daily Dx: Type 2 DM - Uncontrolled E11.65 Insulin: Yes - BIOTIN ORAL Take 1 tablet by mouth once daily. - Fish Oil-Jackson-3 Fatty Acids (FISH OIL OMEGA 3-6-9) 300-1,000 mg CpDR Take 3000 mg daily. - Lancets (ONE TOUCH ULTRASOFT LANCETS) Mis lancets twice daily. Use as instructed ( may dispense Deuca brand) - MULTIVITAMIN TAB Take one(1) tablet daily. - VITAMIN C 1,000 MG TAB Take one(1) tablet daily. Problem List As Of Date 08/10/2024 Noted Resolved GENERAL OSTEOARTHROSIS [M15.9] ESOPHAGEAL REFLUX [K21.9] Venous (peripheral) insufficiency [I87.2] Personal history of contact with and (suspected* 08/19/2014 Type 2 diabetes mellitus with diabetic neuropat* Class 3 severe obesity with body mass index (BM* Nonspecific abnormal results of liver function * 08/19/2014 Other hyperlipidemia [E78.49] Essential hypertension [I10] Diabetic polyneuropathy (HCC) [E11.42] 01/30/2006 04/24/2018 Coronary artery disease of [place] artery of [place]ai*10/07/2007 Persistent atrial fibrillation (HCC) [I48.19] 10/07/2007 JAMES (obstructive sleep apnea) [G47.33] 08/13/2013 08/19/2014 Memory disturbance [R41.3] 08/13/2013 Hematuria [R31.9] 05/31/2014 08/19/2014 BPH (benign prostatic hyperplasia) [N40.0] 05/31/2014 Chronic anticoagulation [Z79.01] 05/31/2014 08/19/2014 History of smoking [Z87.891] 05/31/2014 08/19/2014 Nephrolithiasis [N20.0] 10/17/2016 04/24/2018 Skin ulcer of toe of right foot, limited to catie*04/24/2018 07/24/2018 Osteomyelitis of second toe of right foot (HCC)*09/17/2019 06/21/2020 Osteomyelitis of third toe of right foot (HCC) *09/17/2019 06/21/2020 History of partial amputation of toe (HCC) [Z89*09/17/2019 Acute kidney injury (DANIELA) with acute tubular ne*11/06/2019 06/21/2020 ROBIN (dyspnea on exertion) [R06.09] 11/06/2019 Statin intolerance [Z78.9] 03/31/2020 Chronic diastolic congestive heart failure (HCC*03/31/2020 Diabetic ulcer of toe of left foot associated w*06/21/2020 10/06/2020 Coronary arteriosclerosis after percutaneous tr*07/02/2020 07/02/2020 Valvula (more content not included)... [facility] (INTMWS[facility] MIGUELANGEL MOYA ([id number]) 1950 M Date Time Provider Department 08/04/24 KRISHNA REYNOLDS During your visit today, we recorded the following information about you: Agnieszka Khanna LPN 08/04/2024 9:44 AM Signed Per pharmacy PA is needed for the brand name tresiba pt's formulary is the generic but pharmacy says this is not available per manufacture(on back order). Pharmacy says she called the insurance and they would not allow an override code. PA was needed. This was completed on covermymed. MIGUELANGEL MOYA (Armijo: [id number]) - [id number] Tresiba FlexTouch (insulin degludec injection) 200 Units/mL solution status: PA Request Created: August 02, 2024 [id number] Sent: August 04, 2024 Agnieszka Khanna LPN 08/04/2024 9:52 AM Signed MIGUELANGEL MOYA (Armijo: [id number]) Rx #: [id number] Tresiba FlexTouch (insulin degludec injection) 200 Units/mL solution Form [employer] Electronic Prior Authorization Request Form (2016 NCPDP) Created 2 days ago Sent to Plan 2 days ago Plan Response 2 days ago Submit Clinical Questions 5 minutes ago Determination Favorable 3 minutes ago Message from Plan Approved. This drug has been approved under the Member's Medicare Part D benefit. Approved quantity: 54 units per 90 day(s). You may fill up to a 90 day supply except for those on Specialty Tier 5, which can be filled up to a 30 day supply. Please call the pharmacy to process the prescription claim.. Authorization Expiration Date: March 24, 2099. Agnieszka Khanna LPN 08/04/2024 9:52 AM Signed Pharmacy notified. They will order this for pt to picker and sorter load and unload. Pharmacy will notified pts spouse. Allergies As of Date: 08/04/2024 Noted Allergy Reaction METOLAZONE 01/15/2022 2 - Rash ALTACE (RAMIPRIL) 12/29/2004 5 - Intolerance BACTRIM (SULFAMETHOXAZOLE-TR IMETH*08/15/2020 4 - Hives DIOVAN (VALSARTAN) 12/29/2004 PROPOFOL 02/10/2020 14 - Other: See Comments Comments: agitation RAMIPRIL 11/05/2007 SEASONAL ALLERGIES 08/04/2012 14 - Other: See Comments [id number] REDUCTASE INHIBIT*06/18/2011 14 - Other: See Comments Comments: Muscle aches Date Reviewed: 06/10/2024 Reviewed by: Roxanna Dennis LPN - Fully Assessed Reason for Visit: Insurance Authorization [[id number]] Prescriptions as of 08/04/2024 - insulin aspart U-100 (NOVOLOG FLEXPEN U-100 INSULIN) 100 unit/mL (3 mL) Inject 25 Units subcutaneously three times a day before meals. Sliding scale 3 times daily. (80 units daily max) - metoprolol tartrate, short acting, (LOPRESSOR) 50 mg tablet Take 1 tablet by mouth three times a day. - clopidogrel (PLAVIX) 75 mg tablet Take 1 tablet by mouth once daily. - gabapentin (NEURONTIN) 100 mg capsule Take 1 capsule by mouth three times a day for 360 days. - alirocumab (PRALUENT PEN) 75 mg/mL pen Inject 1 mL subcutaneously every other week. - nitroglycerin sublingual (NITROQUICK) 0.4 mg SL tablet Dissolve 1 tablet under the tongue every 5 minutes as needed for chest pain. IF NO PAIN RELIEF WITH 2ND DOSE, CALL 911 - spironolactone (ALDACTONE) 25 mg tablet Take 1 tablet by mouth once daily. - furosemide (LASIX) 80 mg tablet Take 1 tablet by mouth two times a day. Three times per day as directed PRN - aspirin, enteric coated (ASPIRIN, ENTERIC COATED) 81 mg EC tablet Take 1 tablet by mouth once daily. - insulin degludec (TRESIBA FLEXTOUCH U-200) 200 unit/mL (3 mL) injection Inject 120 Units subcutaneously daily at bedtime. - amLODIPine (NORVASC) 2.5 mg tablet Take 1 tablet by mouth once daily. - Insulin Spruce, Disposable, 32 gauge x 5/32 Use with insulin 4 times a day. Dx: E11.40; Z79.4 - blood sugar diagnostic (BLOOD GLUCOSE TEST) test strip Test blood sugar(s) 4-5 times daily Dx: Type 2 DM - Uncontrolled E11.65 Insulin: Yes - BIOTIN ORAL Take 1 tablet by mouth once daily. - Fish Oil-Jackson-3 Fatty Acids (FISH OIL OMEGA 3-6-9) 300-1,000 mg CpDR Take 3000 mg daily. - Lancets (ONE TOUCH ULTRASOFT LANCETS) Misc lancets twice daily. Use as instructed ( may dispense Deuca brand) - MULTIVITAMIN TAB Take one(1) tablet daily. - VITAMIN C 1,000 MG TAB Take one(1) tablet daily. Problem List As Of Date 08/04/2024 Noted Resolved GENERAL OSTEOARTHROSIS [M15.9] ESOPHAGEAL REFLUX [K21.9] Venous (peripheral) insufficiency [I87.2] Personal history of contact with and (suspected* 08/19/2014 Type 2 diabetes mellitus with diabetic neuropat* Class 3 severe obesity with body mass index (BM* Nonspecific abnormal results of liver function * 08/19/2014 Other hyperlipidemia [E78.49] Essential hypertension [I10] Diabetic polyneuropathy (HCC) [E11.42] 01/30/2006 04/24/2018 Coronary artery disease of [place] artery of thai*10/07/2007 Persistent atrial fibrillation (HCC) [I48.19] 10/07/2007 JAMES (obstructive sleep apnea) [G47.33] 08/13/2013 08/19/2014 Memory disturbance [ (more content not included)... Normal [facility] CNOVon 06-10-2024 CNOV Office Visit (INTMWS) MIGUELANGEL MOYA ([id number]) 1950 M Date Time Provider Department 06/10/24 8:40 AM KRISHNA REYNOLDS INTMWS During your visit today, we recorded the following information about you: Temperature Pulse Respiration Blood pressure 97.9 degrees 64/minute 18/minute 118/60 Weight Height 129.1 kg 1.708 m Krishna Reynolds MD 06/10/2024 9:54 AM Signed Miguelangel George Jojo is a 73 year old male here for a Medicare wellness visit. Medicare Health Risk Assessment General Health Fair Exercise: Minutes/Day 30 min Exercise: Days/Week 2 days Alcohol: Daily Use Never Alcohol: Drinks/Day Patient does not drink Alcohol: 6 or more drinks Never Feel off balance Yes Concerns: Teeth/Dentures No Concerns: Sexual function No Troubled by feelings None of the above Frequency: Eating healthy diet ADLs requiring help Housework; Bathing; Walking Safety precautions in home/vehicle Yes Smoke, vape, chews tobacco Yes, but I'm not ready to quit Difficulty hearing No Difficulty seeing No Current Providers Specialists: I have reviewed specialist-related care of the patient in the medical record. Current care team: Patient Care Team: Krishna Reynolds MD as PCP - General Leila Suárez, PEREZ.CAR CHECKER as Type Bar And Segment Assembler (Internal Medicine) Regulo Stover MD (Cardiology) Arabella Heredia DPM as Referring (Podiatry) Outside Specialists: Gaby Kraus MD (Inactive) (Nephrology) Mitchel Aleman MD as Physician (Ophthalmology) Medical/Family history review Reviewed and updated problem list, medical/surgical/fam haseeb/social history, medications, and allergies. Opioid use review Opioid Medications (last 90 days) No data to display Anxiety/Depression screening Recommendation: no further intervention at this time Cognitive screening Mini Cog Score: 5 Cognitive screening reviewed and No further action needed (score 3-5). Functional Observation Was the patient's Timed Up AND Go test unsteady or >= 12 seconds? No Advance Care Planning Surrogate decision maker and/or advance care plan documented Measurements BP 118/60 (BP Site: Left Arm, BP Position: Sitting, BP Cuff Size: Large Adult) Pulse 64 Temp 36.6 ?C (97.9 ?F) (Temporal) Resp 18 Ht 170.8 cm (5' 7.25) Wt 129.1 kg (284 lb 9.8 oz) BMI 44.25 kg/m? Vision Screening: Follows with optometry/ophthalmol ogy Aakash visual acuity screen Assessment/Plan Medicare annual wellness visit, subsequent (Z00.00) - Counseled on healthy diet and regular exercise - Fall avoidance information provided - Personalized prevention plan provided - Discussed need for and benefit of weight loss. BMI 44.25 kg/(m2) - Covid vaccine. Krishna Reynolds MD 06/10/2024 9:54 AM Signed This note was created using Golf121ter. Subjective Miguelangel Moya is a 73 year old male. His diabetes mellitus and lipids were controlled. We reviewed his labs. His insulin Fiasp will need changed to insulin aspart flexpen, and Tresiba will need changed to insulin degludec? This was stated in a letter from their insurance. Review of Systems Constitutional: Negative for fatigue, fever and unexpected weight change. Respiratory: Negative for cough and shortness of breath. Cardiovascular: Negative for chest pain, palpitations and leg swelling. Gastrointestinal: Negative for abdominal pain, constipation and diarrhea. Genitourinary: Negative for difficulty urinating. Skin: Negative for wound. Neurological: Positive for numbness. Negative for dizziness and light-headedness. ACTIVE PROBLEM LIST Generalized Osteoarthrosis, Unspecified Site Esophageal Reflux Venous (Peripheral) Insufficiency Type 2 Diabetes Mellitus With Diabetic Neuropathy, With Long-Term Current Use of Insulin ([facility]) Class 3 Severe Obesity With Body Mass Index (Bmi) of 45.0 to 49.9 in Adult ([facility]) Other Hyperlipidemia Essential Hypertension Coronary Artery Disease of [place] Artery of [place] Heart With Stable Angina Pectoris ([facility]) Persistent Atrial Fibrillation ([facility]) Memory Disturbance Bph (Benign Prostatic Hyperplasia) History of Partial Amputation of Toe ([facility]) Robin (Dyspnea On Exertion) Statin Intolerance Chronic Diastolic Congestive Heart Failure ([facility]) Valvular Heart Disease Non-Seasonal Allergic Rhinitis Hypertensive Heart Disease With Chronic Diastolic Congestive Heart Failure ([facility]) Atherosclerosis of Aorta ([facility]) Social History Tobacco Use Smoking status: Never Smokeless tobacco: Current Types: Chew Vaping Use Vaping status: Never Used Substance Use Topics Alcohol use: Yes Comment: Rare Drug use: Never Current Outpatient Medications Medication Sig metoprolol tartrate, short acting, (LOPRESSOR) 50 mg tablet Take 1 tablet by mouth three times a day. clopidogrel (PLAVIX) 75 mg tablet Take 1 tablet by mouth once daily. alexis (more content not included)... Normal [facility] Albumin DL <= 20 mg/L (U) [M ass/Vol]Ordered By: Krishna Reynolds on 06-03-2024 Urine Random Microalbumin 123.0 mg/L NO RANGE EST. [facility] Anion gap in Serum or Plasma Ordered By: Krishna Reynolds on 06-03-2024 Anion gap [Moles/Vol] 12 mmol/L 5-[address] [facility] BUN/creatinine ratioOrdered By: Krishna Reynolds on 06-03-2024 Urea nitrogen/Creatinine [Mass ratio] 16.3 mg/mg 10-20 [facility] Bilirubin, totalOrdered By: Krishna Reynolds on 06-03-2024 Bilirubin [Mass/Vol] 0.83 mg/dL 0.00-1.30 [facility] Calculated very low density lipoprotein (VLDL) cholesterol measurementOrdered By: Krishna Reynolds on 06-03-2024 Calculated very low density lipoprotein (VLDL) cholesterol measurement 32 mg/dL - [facility] VLDL Cholesterol 32 mg/dL - [facility] Carbon dioxide, total [Moles /volume] in Central venous bloodOrdered By: Krishna Reynolds on 06-03-2024 CO2 [Moles/Vol] 24.3 mmol/L 21.0-32.0 [facility] Chloride assayOrdered By: Jennifer Reynolds on 06-03-2024 Chloride [Moles/Vol] 102 mmol/L 98-108 [facility] Comprehensive Metabolic Prof ilon 06-03-2024 Albumin [Mass/Vol] 3.9 g/dL Normal 3.4-4.8 [facility] Comment on above: Performed By: #### L 500.4100, L501.9985, L502.0250, L500.4050 #### [facility] [address] [place], [address] Albumin/Globulin [Mass ratio] 1.3 {ratio} Normal 0.9-2.4 [facility] Comment on above: Performed By: #### L 500.4100, L501.9985, L502.0250, L500.4050 #### [facility] [address] [place], [address] ALK PHOS 74 U/L Normal 40-129 [facility] Comment on above: Performed By: #### L 500.4100, L501.9985, L502.0250, L500.4050 #### [facility] [address] [place], [address] ALT [Catalytic activity/Vol] 19 U/L Normal <=46 [facility] Comment on above: Performed By: #### L 500.4100, L501.9985, L502.0250, L500.4050 #### [facility] [address] [place], [address] AST [Catalytic activity/Vol] 29 U/L Normal <=37 [facility] Comment on above: Performed By: #### L 500.4100, L501.9985, L502.0250, L500.4050 #### [facility] [address] [place], [address] Bilirubin [Mass/Vol] 0.83 mg/dL Normal 0.00-1.30 [facility] Comment on above: Performed By: #### L 500.4100, L501.9985, L502.0250, L500.4050 #### [facility] [address] [place], [address] BUN/CRE 16.3 RATIO Normal 10-20 [facility] Comment on above: Performed By: #### L 500.4100, L501.9985, L502.0250, L500.4050 #### [facility] [address] [place], [address] Calcium [Mass/Vol] 9.1 mg/dL Normal 7.6-11.0 [facility] Comment on above: Performed By: #### L 500.4100, L501.9985, L502.0250, L500.4050 #### [facility] [address] [place], [address] Chloride [Moles/Vol] 102 mmol/L Normal 98-108 [facility] Comment on above: Performed By: #### L 500.4100, L501.9985, L502.0250, L500.4050 #### [facility] [facility] [address] [place], [address] CO2 [Moles/Vol] 24.3 mmol/L Normal 21.0-32.0 [facility] Comment on above: Performed By: #### L 500.4100, L501.9985, L502.0250, L500.4050 #### [facility] [address] [place], [address] Creatinine [Mass/Vol] 0.94 mg/dL Normal 0.70-1.20 [facility] Comment on above: Performed By: #### L 500.4100, L501.9985, L502.0250, L500.4050 #### [facility] [address] [place], [address] GAP 12 Normal 5-15 [facility] Comment on above: Performed By: #### L 500.4100, L501.9985, L502.0250, L500.4050 #### [facility] [address] [place], [address] GFR/1.73 sq M.predicted among non-blacks MDRD (S/P/Bld) [Vol rate/Area] 85 mL/min/{1.73_m2} Normal >60 [facility] Comment on above: Result Comment: mL/m in/1.73m2 CKD-EPI Creatinine Equation (2020) Performed By: #### L 500.4100, L501.9985, L502.0250, L500.4050 #### [facility] [address] [place], [address] Globulin (S) [Mass/Vol] 2.9 g/dL Normal 2.2-4.2 [facility] Comment on above: Performed By: #### L 500.4100, L501.9985, L502.0250, L500.4050 #### [facility] [address] [place], [address] Glucose [Mass/Vol] 80 mg/dL Normal 70-99 [facility] Comment on above: Performed By: #### L 500.4100, L501.9985, L502.0250, L500.4050 #### [facility] [address] [place], [address] Potassium [Moles/Vol] 4.0 mmol/L Normal 3.3-5.1 [facility] [place] Comment on above: Performed By: #### L 500.4100, L501.9985, L502.0250, L500.4050 #### [facility] [address] [place], [address] Sodium [Moles/Vol] 139 mmol/L Normal 133-145 [facility] Comment on above: Performed By: #### L 500.4100, L501.9985, L502.0250, L500.4050 #### [facility] [address] [place], [address] T PROT 6.8 g/dL Normal 5.9-8.4 [facility] Comment on above: Performed By: #### L 500.4100, L501.9985, L502.0250, L500.4050 #### [facility] [address] [place], [address] Urea nitrogen [Mass/Vol] 15 mg/dL Normal 4-19 [facility] Comment on above: Performed By: #### L 500.4100, L501.9985, L502.0250, L500.4050 #### [facility] [address] [place], [address] Creatinine Unsp time (U) [Ma ss/Vol]Ordered By: Krishna Reynolds on 06-03-2024 Creatinine (U) [Mass/Vol] 168.00 mg/dL 39-259 [facility] GFR/1.73 sq M.predicted umesh g non-blacks MDRD (S/P/Bld) [Vol rate/Area]Ordered By: Krishna Reynolds on 06-03-2024 Estimated GFR (MDRD) Non-Af Amer 85 >60 [facility] Comment on above: mL/min/1.73m2 CKD-EP I Creatinine Equation (2020) Glomerular filtration rate ( GFR) estimation/1.73 sq m using serum, plasma, or whole bOrdered By: Krishna Reynolds on 06-03-2024 GFR/1.73 sq M.predicted among non-blacks MDRD (S/P/Bld) [Vol rate/Area] 85 mL/min/{1.73_m2} >60 [facility] Comment on above: mL/min/1.73m2 CKD-EP I Creatinine Equation (2020) Hemoglobin A1con 06-03-2024 HbA1c (Bld) [Mass fraction] 6.1 % Normal <=5.6 [facility] Comment on above: Performed By: #### L 500.4100, L501.9985, L502.0250, L500.4050 #### [facility] [address] [place], [place], [address] Hemoglobin A1c percentageOrd ered By: Krishna Reynolds on 06-03-2024 HbA1c (Bld) [Mass fraction] 6.1 % >5.7 [facility] LDL calc ser/plasOrdered By: Krishna Reynolds on 06-03-2024 Cholesterol in LDL [Mass/Vol] 96 mg/dL [facility] Comment on above: Uwvitwxitm=164-341 m g/dL & Higher Ppkf=243 mg/dL or greater LDL Cholesterol, Calculated 96 mg/dL [facility] Comment on above: Pevpmznryo=308-394 m g/dL & Higher Meta=929 mg/dL or greater Laboratory - Chemistry and C hemistry - challengeOrdered By: Krishna Reynolds on 06-03-2024 AST [Catalytic activity/Vol] 29 U/L <38 [facility] Lipid Profileon 06-03-2024 CHOL:HDL 4.00 Normal [facility] Comment on above: Performed By: #### L 500.4100, L501.9985, L502.0250, L500.4050 #### [facility] [address] [place], [address] Cholesterol [Mass/Vol] 171 mg/dL Normal <=200 [facility] Comment on above: Result Comment: Chol esterol level, Desirable <200 mg/dL Borderline high cholesterol 200-239 mg/dL High cholesterol >=240 mg/dL Recommendations of the NCEP Adult Treatment Panel for the following risk-cutoff thresholds for the [place] population. Performed By: #### L 500.4100, L501.9985, L502.0250, L500.4050 #### [facility] [address] [place], [address] Cholesterol in HDL [Mass/Vol] 43 mg/dL Normal [facility] Comment on above: Result Comment: [facility] Cholesterol Education Program (NCEP) guidelines: <40 mg/dL: Low HDL-cholesterol (major risk factor for CHD) >= 60 mg/dL: High HDL-cholesterol (negative risk factor for CHD) HDL-cholesterol is affected by a number of factors, e.g. smoking, exercise, hormones, sex and age. Performed By: #### L 500.4100, L501.9985, L502.0250, L500.4050 #### [facility] [address] [place], [address] Cholesterol in LDL [Mass/Vol] 96 mg/dL Normal [facility] Comment on above: Result Comment: Bord lraaxc=868-554 mg/dL Higher Hmiw=670 mg/dL or greater Performed By: #### L 500.4100, L501.9985, L502.0250, L500.4050 #### [facility] [address] [place], [address] Cholesterol in VLDL [Mass/Vol] 32 mg/dL Normal 5-40 [facility] Comment on above: Performed By: #### L 500.4100, L501.9985, L502.0250, L500.4050 #### [facility] [address] [place], [address] Triglyceride [Mass/Vol] 161 mg/dL Normal [facility] Comment on above: Result Comment: The drugs N-Acetylcysteine and Metamizole may falsely depress this assay. Normal range: <150 mg/dL Borderline High: 150-199 mg/dL High: 200-499 mg/dL Very High: >500 mg/dL Performed By: #### L 500.4100, L501.9985, L502.0250, L500.4050 #### [facility] [address] [place], [address] Microalb:Creat Ratio,Random URon 06-03-2024 MALB:CREAT Normal [facility] Comment on above: Result Comment: WILL REORDER Performed By: #### L 500.4100, L501.9985, L502.0250, L500.4050 #### [facility] [address] [place], [address] MICROALBUMIN,UR Normal NO RANGE EST. [facility] Comment on above: Result Comment: WILL REORDER Performed By: #### L 500.4100, L501.9985, L502.0250, L500.4050 #### [facility] [address] [place], [address] UR CREAT Normal 39-259 [facility] Comment on above: Result Comment: WILL REORDER Performed By: #### L 500.4100, L501.9985, L502.0250, L500.4050 #### [facility] [address] [place], [address] Microalbumin/creat ratio urO rdered By: Krishna Reynolds on 06-03-2024 Urine Microalbumin/Creatinine Ratio 732.1 mg/g CRE [facility] Potassium (Unsp spec) [Mass/ Vol]Ordered By: Krishna Reynolds on 06-03-2024 Potassium [Moles/Vol] 4.0 mmol/L 3.3-5.1 [facility] Potassium measurement (mass/ volume)Ordered By: Krishna Reynolds on 06-03-2024 Potassium (Unsp spec) [Mass/Vol] 4.0 mmol/L 3.3-5.1 [facility] Random urine creatinine monroe urement (mass/volume)Ordered By: Krishna Reynolds on 06-03-2024 Creatinine Unsp time (U) [Mass/Vol] 168.00 mg/dL 39-259 [facility] Screening total cholesterol/ high density lipoprotein (HDL) cholesterol ratioOrdered By: Krishna Reynolds on 06-03-2024 Cholesterol.total/Choles terol in HDL [Mass ratio] 4.00 {ratio} [facility] Serum creatinine measurement (mass/volume)Ordered By: Krishna Reynolds on 06-03-2024 Creatinine [Mass/Vol] 0.94 mg/dL 0.70-1.20 [facility] Serum globulin measurementOr dered By: Krishna Reynolds on 06-03-2024 Globulin (S) [Mass/Vol] 2.9 g/dL 2.2-4.2 [facility] Serum glucose measurement (m ass/volume)Ordered By: Krishna Reynolds on 06-03-2024 Glucose [Mass/Vol] 80 mg/dL 70-99 [facility] Serum or plasma alanine lopez otransferase (ALT) measurementOrdered By: Krishna Reynolds on 06-03-2024 ALT [Catalytic activity/Vol] 19 U/L <47 [facility] Serum or plasma albumin monroe urement (mass/volume)Ordered By: Krishna Reynolds on 06-03-2024 Albumin [Mass/Vol] 3.9 g/dL 3.4-4.8 [facility] Serum or plasma albumin/glob ulin mass ratioOrdered By: Krishna Reynolds on 06-03-2024 Albumin/Globulin [Mass ratio] 1.3 {ratio} 0.9-2.4 [facility] Serum or plasma alkaline neetu sphatase measurementOrdered By: Krishna Reynolds on 06-03-2024 ALP [Catalytic activity/Vol] 74 U/L 40-129 [facility] Serum or plasma calcium monroe urement (mass/volume)Ordered By: Krishna Reynolds on 06-03-2024 Calcium [Mass/Vol] 9.1 mg/dL 7.6-11.0 [facility] Serum or plasma cholesterol in HDL measurement (mass/volume)Ordered By: Krishna Reynolds on 06-03-2024 Cholesterol in HDL [Mass/Vol] 43 mg/dL >40 [facility] Comment on above: National Cholesterol Education Program (NCEP) guidelines:<40 mg/dL: Low HDL-cholesterol (major risk factor for CHD)>= 60 mg/dL: High HDL-cholesterol (negative risk factor for CHD)HDL-cholesterol is affected by a number of factors, e.g. smoking, exercise, hormones, sex and age. Serum or plasma cholesterol measurement (mass/volume)Ordered By: Krishna Reynolds on 06-03-2024 Cholesterol [Mass/Vol] 171 mg/dL <201 [facility] Comment on above: Cholesterol level, D esirable <200 mg/dLBorderline high cholesterol 200-239 mg/dLHigh cholesterol >=240 mg/dLRecommendations of the NCEP Adult Treatment Panel for the following risk-cutoff thresholds for the [place] population. Serum or plasma urea nitroge n measurement (mass/volume)Ordered By: Krishna Reynolds on 06-03-2024 Urea nitrogen [Mass/Vol] 15 mg/dL 4-19 [facility] Sodium levelOrdered By: Justin Reynolds on 06-03-2024 Sodium [Moles/Vol] 139 mmol/L 133-145 [facility] Total proteinOrdered By: Philippe Reynolds on 06-03-2024 Protein [Mass/Vol] 6.8 g/dL 5.9-8.4 [facility] Triglycerides measurementOrd ered By: Krishna Reynolds on 06-03-2024 Triglyceride [Mass/Vol] 161 mg/dL <199 [facility] Comment on above: The drugs N-Acetylcy steine and Metamizole may falsely depress this assay. Normal range: <150 mg/dLBorderline High: 150-199 mg/dLHigh: 200-499 mg/dLVery High: >500 mg/dL Urine albumin measurement wi detection limit of 20 mg/L or less (mass/volume)Ordered By: Krishna Reynolds on 06-03-2024 Albumin DL <= 20 mg/L (U) [Mass/Vol] 123.0 mg/L NO [facility] EST[facility] MIGUELANGEL MOYA ([id number]) 1950 M Date Time Provider Department 05/25/24 10:00 AM ARABELLA HEREDIA PODIST During your visit today, we recorded the following information about you: Arabella Heredia DPM 05/30/2024 6:44 PM Signed This 73 year old male presents for painful calluses bilateral feet. Prior partial toe amputation left. SMBGs are better. No other pedal complaints PAIN EVALUATION 05/25/2024 1004 Pain Level: 9 Pain Location: -- bilateral foot Description: Burning;Tingling;Num bness Duration Units: Years Frequency: Continuous PAST MEDICAL HISTORY Diagnosis Date Acute kidney injury (DANIELA) with acute tubular necrosis (ATN) ([facility]) 11/06/2019 CAD (coronary artery disease) 10/07/2007 70% stenosis circumflex 2nd marginal branch. Drug eluting stent done. Diabetic ulcer of toe of left foot associated with type 2 diabetes mellitus (HCC) 06/21/2020 Esophageal reflux Generalized osteoarthrosis, unspecified site Hydrocele, acquired 07/04/2023 Nephrolithiasis 10/17/2016 NEUROPATHY IN DIABETES 01/30/2006 Nonspecific abnormal results of liver function study Obesity, unspecified JAMES (obstructive sleep apnea) 08/13/2013 declined tx Osteomyelitis of second toe of right foot ([facility]) 09/17/2019 Osteomyelitis of third toe of right foot ([facility]) 09/17/2019 Other and unspecified hyperlipidemia Paroxysmal atrial fibrillation (HCC) 10/07/2007 Personal history of contact with and (suspected) exposure to asbestos Testicular cyst 07/26/2023 Type II or unspecified type diabetes mellitus without mention of complication, not stated as uncontrolled Unspecified essential hypertension Unspecified venous (peripheral) insufficiency Current Outpatient Medications Medication Sig gabapentin (NEURONTIN) 100 mg capsule Take 1 capsule by mouth three times a day for 360 days. insulin aspart, niacinamide, (FIASP FLEXTOUCH U-100 INSULIN) 100 unit/mL (3 mL) pen Inject 25 units 3 times a day with meals PLUS Sliding scale as based on pre meal blood sugar as directed (~ 68 units daily) nitroglycerin sublingual (NITROQUICK) 0.4 mg SL tablet Dissolve 1 tablet under the tongue every 5 minutes as needed for chest pain. IF NO PAIN RELIEF WITH 2ND DOSE, CALL 911 spironolactone (ALDACTONE) 25 mg tablet Take 1 tablet by mouth once daily. furosemide (LASIX) 80 mg tablet Take 1 tablet by mouth two times a day. Three times per day as directed PRN aspirin, enteric coated (ASPIRIN, ENTERIC COATED) 81 mg EC tablet Take 1 tablet by mouth once daily. insulin degludec (TRESIBA FLEXTOUCH U-200) 200 unit/mL (3 mL) injection Inject 120 Units subcutaneously daily at bedtime. amLODIPine (NORVASC) 2.5 mg tablet Take 1 tablet by mouth once daily. Insulin Spruce, Disposable, 32 gauge x 5/32 Use with insulin 4 times a day. Dx: E11.40; Z79.4 clopidogrel (PLAVIX) 75 mg tablet Take 1 tablet by mouth once daily. metoprolol tartrate, short acting, (LOPRESSOR) 50 mg tablet Take 1 tablet by mouth three times a day. blood sugar diagnostic (BLOOD GLUCOSE TEST) test strip Test blood sugar(s) 4-5 times daily Dx: Type 2 DM - Uncontrolled E11.65 Insulin: Yes BIOTIN ORAL Take 1 tablet by mouth once daily. Fish Oil-Jackson-3 Fatty Acids (FISH OIL OMEGA 3-6-9) 300-1,000 mg CpDR Take 3000 mg daily. Lancets (ONE TOUCH ULTRASOFT LANCETS) Misc lancets twice daily. Use as instructed ( may dispense Deuca brand) MULTIVITAMIN TAB Take one(1) tablet daily. VITAMIN C 1,000 MG TAB Take one(1) tablet daily. alirocumab (PRALUENT PEN) 75 mg/mL pen Inject 1 mL subcutaneously every other week. No current facility-administere d medications for this visit. ALLERGIES Allergen Reactions Metolazone Rash Altace [Ramipril] Intolerance Bactrim [Sulfametho* Hives Diovan [Valsartan] Propofol Other: See Comments agitation Ramipril Seasonal Allergies Other: See Comments Ttcbxfy-Yvw-Oxh Red* Other: See Comments Muscle aches OBJECTIVE: Patient presents WB with regular shoe gear Neurovascular status is grossly unchanged. Absent vibratory sensation at the hallux IPJ. Intact protective sensation hyperkeratotic tissue noted subfifth MTP joint left. Hyperkeratotic tissue also noted to the medial aspect of the to the plantar lateral foot x 2, left posterior heel. Hemoglobin A1C (%) Date Value 11/26/2020 9.1 08/15/2020 8.6 02/13/2020 7.6 10/01/2019 6.1 04/08/2019 6.0 HGBA1C (%) Date Value 11/30/2022 5.9 01/12/2022 6.3 Assessment: B/L callosities Better controlled type 2 diabetes PLAN: Treatment today consisted of -Exam -Debrided calluses x 3 Continue follow up with endo Continue with diabetic shoes Follow-up in 3 months or sooner prn Arabella Heredia DPM Allergies As of Date: 05/25/2024 Noted Allergy Reaction METOLAZONE 01/15/2022 2 - Rash ALTACE (RAMIPRIL) 12/29/2004 5 - Intolerance BACTRIM (SULFA (more content not included)... Normal [facility] CNCOon 04-14-2024 CNCO Letter Text Normal [facility] CNPNon 04-14-2024 CNPN Telephone (INTMWS) MIGUELANGEL MOYA ([id number]) 1950 M Date Time Provider Department 04/14/24 KRISHNA REYNOLDS INTMWS During your visit today, we recorded the following information about you: Agnieszka Khanna LPN 04/14/2024 1:29 PM Signed Pt brought in handicap parking request. Pcp completed letter. 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 Allergies As of Date: 04/14/2024 Noted Allergy Reaction METOLAZONE 01/15/2022 2 - Rash ALTACE (RAMIPRIL) 12/29/2004 5 - Intolerance BACTRIM (SULFAMETHOXAZOLE-TR IMETH*08/15/2020 4 - Hives DIOVAN (VALSARTAN) 12/29/2004 PROPOFOL 02/10/2020 14 - Other: See Comments Comments: agitation RAMIPRIL 11/05/2007 SEASONAL ALLERGIES 08/04/2012 14 - Other: See Comments [id number] REDUCTASE INHIBIT*06/18/2011 14 - Other: See Comments Comments: Muscle aches Date Reviewed: 02/10/2024 Reviewed by: Roxanna Dennis LPN - Fully Assessed Reason for Visit: Letter [[id number]] Prescriptions as of 04/14/2024 - insulin aspart, niacinamide, (FIASP FLEXTOUCH U-100 INSULIN) 100 unit/mL (3 mL) pen Inject 25 units 3 times a day with meals PLUS Sliding scale as based on pre meal blood sugar as directed (~ 68 units daily) - gabapentin (NEURONTIN) 100 mg capsule Take 1 capsule by mouth three times a day for 90 days. - alirocumab (PRALUENT PEN) 75 mg/mL pen Inject 1 mL subcutaneously every other week. - nitroglycerin sublingual (NITROQUICK) 0.4 mg SL tablet Dissolve 1 tablet under the tongue every 5 minutes as needed for chest pain. IF NO PAIN RELIEF WITH 2ND DOSE, CALL 911 - spironolactone (ALDACTONE) 25 mg tablet Take 1 tablet by mouth once daily. - furosemide (LASIX) 80 mg tablet Take 1 tablet by mouth two times a day. Three times per day as directed PRN - aspirin, enteric coated (ASPIRIN, ENTERIC COATED) 81 mg EC tablet Take 1 tablet by mouth once daily. - insulin degludec (TRESIBA FLEXTOUCH U-200) 200 unit/mL (3 mL) injection Inject 120 Units subcutaneously daily at bedtime. - amLODIPine (NORVASC) 2.5 mg tablet Take 1 tablet by mouth once daily. - Insulin Spruce, Disposable, 32 gauge x 5/32 Use with insulin 4 times a day. Dx: E11.40; Z79.4 - clopidogrel (PLAVIX) 75 mg tablet Take 1 tablet by mouth once daily. - metoprolol tartrate, short acting, (LOPRESSOR) 50 mg tablet Take 1 tablet by mouth three times a day. - blood sugar diagnostic (BLOOD GLUCOSE TEST) test strip Test blood sugar(s) 4-5 times daily Dx: Type 2 DM - Uncontrolled E11.65 Insulin: Yes - BIOTIN ORAL Take 1 tablet by mouth once daily. - Fish Oil-Jackson-3 Fatty Acids (FISH OIL OMEGA 3-6-9) 300-1,000 mg CpDR Take 3000 mg daily. - Lancets (ONE TOUCH ULTRASOFT LANCETS) Misc lancets twice daily. Use as instructed ( may dispense Deuca brand) - MULTIVITAMIN TAB Take one(1) tablet daily. - VITAMIN C 1,000 MG TAB Take one(1) tablet daily. Problem List As Of Date 04/14/2024 Noted Resolved GENERAL OSTEOARTHROSIS [M15.9] ESOPHAGEAL REFLUX [K21.9] Venous (peripheral) insufficiency [I87.2] Personal history of contact with and (suspected* 08/19/2014 Type 2 diabetes mellitus with diabetic neuropat* Class 3 severe obesity with body mass index (BM* Nonspecific abnormal results of liver function * 08/19/2014 Other hyperlipidemia [E78.49] Essential hypertension [I10] Diabetic polyneuropathy (HCC) [E11.42] 01/30/2006 04/24/2018 Coronary artery disease of [place] artery of [place]*10/07/2007 Persistent atrial fibrillation (HCC) [I48.19] 10/07/2007 JAMES (obstructive sleep apnea) [G47.33] 08/13/2013 08/19/2014 Memory disturbance [R41.3] 08/13/2013 Hematuria [R31.9] 05/31/2014 08/19/2014 BPH (benign prostatic hyperplasia) [N40.0] 05/31/2014 Chronic anticoagulation [Z79.01] 05/31/2014 08/19/2014 History of smoking [Z87.891] 05/31/2014 08/19/2014 Nephrolithiasis [N20.0] 10/17/2016 04/24/2018 Skin ulcer of toe of right foot, limited to catie*04/24/2018 07/24/2018 Osteomyelitis of second toe of right foot (HCC)*09/17/2019 06/21/2020 Osteomyelitis of third toe of right foot (HCC) *09/17/2019 06/21/2020 History of partial amputation of toe (HCC) [Z89*09/17/2019 Acute kidney injury (DANIELA) with acute tubular ne*11/06/2019 06/21/2020 ROBIN (dyspnea on exertion) [R06.09] 11/06/2019 Statin intolerance [Z78.9] 03/31/2020 Chronic diastolic congestive heart failure (HCC*03/31/2020 Diabetic ulcer of toe of left foot associated w*06/21/2020 10/06/2020 Coronary arteriosclerosis after percutaneous tr*07/02/2020 07/02/2020 Valvular heart disease [I38] 08/18/2020 Venous stasis ulcer of right calf limited to br*10/06/2020 11/30/2020 Non-seasonal allergic rhinitis [J30.89] 11/30/2020 Uncontrolled diabetes mellitus [DSS9219] 03/15/2021 06/07/2023 Hypertensive heart disease with chronic diastol*05/30/2022 Atherosclerosis of aorta (HCC) [I70.0] 03/11/2023 Hydrocele, acquired [N43.3] 07/04/2023 12/11/19 (more content not included)... Normal [facility] CNOVon 02-10-2024 CNOV Office Visit (INTMWS) MIGUELANGEL MOYA ([id number]) 1950 M Date Time Provider Department 02/10/24 6:00 PM KRISHNA REYNOLDS INTMWS During your visit today, we recorded the following information about you: Temperature Pulse Respiration Blood pressure 96.9 degrees 80/minute 18/minute 122/68 Weight 125.4 kg Krishna Reynolds MD 02/10/2024 6:47 PM Signed This note was created using [employer]af[employer]. Subjective Patient presents with: Pain Miguelangel Moya is a 73 year old male was here with Jessica. He developed progressive bilateral leg pain the past 1-2 month, from the knees down to his feet. His feet felt hot. Tylenol and leg compressions were not longer helping and he was now having insomnia. His diabetes mellitus was controlled, and he had no foot ulcer. He had known neuropathy with mild pain for years. Review of Systems Constitutional: Negative for fatigue and fever. Respiratory: Negative. Cardiovascular: Negative. Skin: Negative for rash and wound. Neurological: Negative for weakness and numbness. ACTIVE PROBLEM LIST Generalized Osteoarthrosis, Unspecified Site Esophageal Reflux Venous (Peripheral) Insufficiency Type 2 Diabetes Mellitus With Diabetic Neuropathy, With Long-Term Current Use of Insulin ([facility]) Class 3 Severe Obesity With Body Mass Index (Bmi) of 45.0 to 49.9 in Adult ([facility]) Other Hyperlipidemia Essential Hypertension Coronary Artery Disease of [place] Artery of [place] Heart With Stable Angina Pectoris ([facility]) Persistent Atrial Fibrillation ([facility]) Memory Disturbance Bph (Benign Prostatic Hyperplasia) History of Partial Amputation of Toe ([facility]) Robin (Dyspnea On Exertion) Statin Intolerance Chronic Diastolic Congestive Heart Failure ([facility]) Valvular Heart Disease Non-Seasonal Allergic Rhinitis Hypertensive Heart Disease With Chronic Diastolic Congestive Heart Failure ([facility]) Atherosclerosis of Aorta ([facility]) Social History Tobacco Use Smoking status: Never Smokeless tobacco: Current Types: Chew Vaping Use Vaping status: Never Used Substance Use Topics Alcohol use: Yes Comment: Rare Drug use: Never Current Outpatient Medications Medication Sig alirocumab (PRALUENT PEN) 75 mg/mL pen Inject 1 mL subcutaneously every other week. nitroglycerin sublingual (NITROQUICK) 0.4 mg SL tablet Dissolve 1 tablet under the tongue every 5 minutes as needed for chest pain. IF NO PAIN RELIEF WITH 2ND DOSE, CALL 911 spironolactone (ALDACTONE) 25 mg tablet Take 1 tablet by mouth once daily. furosemide (LASIX) 80 mg tablet Take 1 tablet by mouth two times a day. Three times per day as directed PRN aspirin, enteric coated (ASPIRIN, ENTERIC COATED) 81 mg EC tablet Take 1 tablet by mouth once daily. insulin degludec (TRESIBA FLEXTOUCH U-200) 200 unit/mL (3 mL) injection Inject 120 Units subcutaneously daily at bedtime. amLODIPine (NORVASC) 2.5 mg tablet Take 1 tablet by mouth once daily. Insulin Spruce, Disposable, 32 gauge x 5/32 Use with insulin 4 times a day. Dx: E11.40; Z79.4 clopidogrel (PLAVIX) 75 mg tablet Take 1 tablet by mouth once daily. metoprolol tartrate, short acting, (LOPRESSOR) 50 mg tablet Take 1 tablet by mouth three times a day. insulin aspart, niacinamide, (FIASP FLEXTOUCH U-100 INSULIN) 100 unit/mL (3 mL) pen Inject 25 units 3 times a day with meals PLUS Sliding scale as based on pre meal blood sugar as directed (~ 68 units daily) blood sugar diagnostic (BLOOD GLUCOSE TEST) test strip Test blood sugar(s) 4-5 times daily Dx: Type 2 DM - Uncontrolled Insulin: Yes BIOTIN ORAL Take 1 tablet by mouth once daily. Fish Oil-Jackson-3 Fatty Acids (FISH OIL OMEGA 3-6-9) 300-1,000 mg CpDR Take 3000 mg daily. Lancets (ONE TOUCH ULTRASOFT LANCETS) [facility] [place]ancets twice daily. Use as instructed ( may dispense Deuca brand) MULTIVITAMIN TAB Take one(1) tablet daily. VITAMIN C 1,000 MG TAB Take one(1) tablet daily. flash glucose scanning reader (FREESTYLE MERCY 2 READER) Test blood sugar(s) 4-5 times daily Dx: Type 2 DM - Uncontrolled Insulin: Yes (Patient not taking: Reported on 02/10/2024) flash glucose sensor (FREESTYLE MERCY 2 SENSOR) kit Test blood sugar(s) 4-5 times daily Dx: Type 2 DM - Uncontrolled Insulin: Yes (Patient not taking: Reported on 11/18/2023) No current facility-administere d medications for this visit. Objective BP 122/68 (BP Site: Left Arm, BP Position: Sitting, BP Cuff Size: Large Adult) Pulse 80 Temp 36.1 ?C (96.9 ?F) (Temporal) Resp 18 Wt 125.4 kg (276 lb 7.3 oz) BMI 43.30 kg/m? Physical Exam Constitutional: General: He is not in acute distress. Appearance: He is not ill-appearing. Pulmonary: Effort: Pulmonary effort is normal. Musculoskeletal: General: No tenderness. Right lower leg: No edema. Left lower leg: No edema. Neurological: General: No focal deficit present. Mental Sta (more content not included)... Normal [facility] MIGUELANGEL MOYA ([id number]) 1950 M Date Time Provider Department 01/06/24 REGULO STOVER 4CQ During your visit today, we recorded the following information about you: Jordana Mohr 01/06/2024 8:41 AM Signed Pt is having trouble with bowel movement, believes that he needs to change the Parluent medication. Wants to switch back to 75. Please advise. Thank you. Josefina Ballard MA 01/22/2024 3:12 PM Signed Regulo Stover MD We can decrease the Praluent if he believes this is really leading to his constipation. However, he has to realize that his cholesterol is still fairly poorly controlled on the 75 mg every other week dose. Yoselin Patel RN 01/23/2024 12:17 PM Signed Patient states that he is ok with taking the 75mg every other week. He states that he was having constipation issues on the 150mg dose. Patient aware that his cholesterol is poorly controlled. SHALA Singh David Paul, MD 01/24/2024 2:39 PM Signed 75mg dose ordered from F home delivery Regulo Stover MD 01/24/2024 2:39 PM Signed Addended by: REGULO STOVER on: 01/24/2024 02:39 PM Modules accepted: Orders Allergies As of Date: 01/06/2024 Noted Allergy Reaction METOLAZONE 01/15/2022 2 - Rash ALTACE (RAMIPRIL) 12/29/2004 5 - Intolerance BACTRIM (SULFAMETHOXAZOLE-TR IMETH*08/15/2020 4 - Hives DIOVAN (VALSARTAN) 12/29/2004 PROPOFOL 02/10/2020 14 - Other: See Comments Comments: agitation RAMIPRIL 11/05/2007 SEASONAL ALLERGIES 08/04/2012 14 - Other: See Comments CMDPDCF-OSI-QCM REDUCTASE INHIBIT*06/18/2011 14 - Other: See Comments Comments: Muscle aches Date Reviewed: 12/11/2023 Reviewed by: Roxanna Dennis LPN - Fully Assessed Reason for Visit: Patient Question [1477] Medication Problem [65] Visit Diagnoses:Coronary artery disease of [place] artery of [place] heart with stable angina pectoris (HCC) [I25.118] Other hyperlipidemia [E78.49] Statin intolerance [Z78.9] Atherosclerosis of aorta (HCC) [I70.0] Order(s):alirocumab (PRALUENT PEN) 75 mg/mL penInject 1 mL subcutaneously every other week.Disp: 6 mLRfl: 3 Prescriptions as of 01/24/2024 - alirocumab (PRALUENT PEN) 75 mg/mL pen Inject 1 mL subcutaneously every other week. - nitroglycerin sublingual (NITROQUICK) 0.4 mg SL tablet Dissolve 1 tablet under the tongue every 5 minutes as needed for chest pain. IF NO PAIN RELIEF WITH 2ND DOSE, CALL 911 - spironolactone (ALDACTONE) 25 mg tablet Take 1 tablet by mouth once daily. - furosemide (LASIX) 80 mg tablet Take 1 tablet by mouth two times a day. Three times per day as directed PRN - aspirin, enteric coated (ASPIRIN, ENTERIC COATED) 81 mg EC tablet Take 1 tablet by mouth once daily. - insulin degludec (TRESIBA FLEXTOUCH U-200) 200 unit/mL (3 mL) injection Inject 120 Units subcutaneously daily at bedtime. - amLODIPine (NORVASC) 2.5 mg tablet Take 1 tablet by mouth once daily. - Insulin Spruce, Disposable, 32 gauge x 5/32 Use with insulin 4 times a day. Dx: E11.40; Z79.4 - clopidogrel (PLAVIX) 75 mg tablet Take 1 tablet by mouth once daily. - metoprolol tartrate, short acting, (LOPRESSOR) 50 mg tablet Take 1 tablet by mouth three times a day. - insulin aspart, niacinamide, (FIASP FLEXTOUCH U-100 INSULIN) 100 unit/mL (3 mL) pen Inject 25 units 3 times a day with meals PLUS Sliding scale as based on pre meal blood sugar as directed (~ 68 units daily) - flash glucose scanning reader (FREESTYLE MERCY [...] tablet by mouth once daily. - Fish Oil-Jackson-3 Fatty Acids (FISH OIL OMEGA 3-6-9) 300-1,000 mg CpDR Take 3000 mg daily. - Lancets (ONE TOUCH ULTRASOFT LANCETS) Misc lancets twice daily. Use as instructed ( may dispense Deuca brand) - MULTIVITAMIN TAB Take one(1) tablet daily. - VITAMIN C 1,000 MG TAB Take one(1) tablet daily. Problem List As Of Date 01/06/2024 Noted Resolved GENERAL OSTEOARTHROSIS [M15.9] ESOPHAGEAL REFLUX [K21.9] Venous (peripheral) insufficiency [I87.2] Personal history of contact with and (suspected* 08/19/2014 Type 2 diabetes mellitus with diabetic neuropat* Class 3 severe obesity with body mass index (BM* Nonspecific abnormal results of liver function * 08/19/2014 Other hyperlipidemia [E78.49] Essential hypertension [I10] Diabetic polyneuropathy (HCC) [E11.42] 01/30/2006 04/24/2018 Coronary artery disease of [place] artery of thai*10/07/2007 Persistent atrial fibrillation (HCC) [I48.19] 10/07/2007 JAMES (obstruc (more content not included)... Normal [facility] Jennifer 12-12-2023 [facility]ENN[facility] Telephone (INTMWS) MIGUELANGEL MOYA ([id number]) 1950 M Date Time Provider Department 12/12/23 KRISHNA REYNOLDS INTChristinaWS During your visit today, we recorded the following information about you: Agnieszka Khanna LPN 12/12/2023 8:33 AM Signed Pt brought in annual FMLA for pcp to complete for pt's son's work. Myra takes pt to appts. Pt reports no change from last year. This has been completed by pcp and faxed back to son's work. Allergies As of Date: 12/12/2023 Noted Allergy Reaction METOLAZONE 01/15/2022 2 - Rash ALTACE (RAMIPRIL) 12/29/2004 5 - Intolerance BACTRIM (SULFAMETHOXAZOLE-TR IMETH*08/15/2020 4 - Hives DIOVAN (VALSARTAN) 12/29/2004 PROPOFOL 02/10/2020 14 - Other: See Comments Comments: agitation RAMIPRIL 11/05/2007 SEASONAL ALLERGIES 08/04/2012 14 - Other: See Comments [id number] REDUCTASE INHIBIT*06/18/2011 14 - Other: See Comments Comments: Muscle aches Date Reviewed: 12/11/2023 Reviewed by: Roxanna Dennis LPN - Fully Assessed Reason for Visit: [facility] Paperwork [5472] Prescriptions as of 12/12/2023 - nitroglycerin sublingual (NITROQUICK) 0.4 mg SL tablet Dissolve 1 tablet under the tongue every 5 minutes as needed for chest pain. IF NO PAIN RELIEF WITH 2ND DOSE, CALL 911 - spironolactone (ALDACTONE) 25 mg tablet Take 1 tablet by mouth once daily. - furosemide (LASIX) 80 mg tablet Take 1 tablet by mouth two times a day. Three times per day as directed PRN - aspirin, enteric coated (ASPIRIN, ENTERIC COATED) 81 mg EC tablet Take 1 tablet by mouth once daily. - insulin degludec (TRESIBA FLEXTOUCH U-200) 200 unit/mL (3 mL) injection Inject 120 Units subcutaneously daily at bedtime. - alirocumab (PRALUENT PEN) 150 mg/mL pen Inject 1 mL subcutaneously every other week. - amLODIPine (NORVASC) 2.5 mg tablet Take 1 tablet by mouth once daily. - Insulin Spruce, Disposable, 32 gauge x 5/32 Use with insulin 4 times a day. Dx: E11.40; Z79.4 - clopidogrel (PLAVIX) 75 mg tablet Take 1 tablet by mouth once daily. - metoprolol tartrate, short acting, (LOPRESSOR) 50 mg tablet Take 1 tablet by mouth three times a day. - insulin aspart, niacinamide, (FIASP FLEXTOUCH U-100 INSULIN) 100 unit/mL (3 mL) pen Inject 25 units 3 times a day with meals PLUS Sliding scale as based on pre meal blood sugar as directed (~ 68 units daily) - flash glucose scanning reader (Tablelist IncSTYLE MERCY 2 READER) Test blood sugar(s) 4-5 times daily Dx: Type 2 DM - Uncontrolled 65 Insulin: Yes - flash glucose sensor (FREESTYLE MERCY 2 SENSOR) kit Test blood sugar(s) 4-5 times daily Dx: Type 2 DM - Uncontrolled Insulin: Yes - blood sugar diagnostic (BLOOD GLUCOSE TEST) test strip Test blood sugar(s) 4-5 times daily Dx: Type 2 DM - Uncontrolled 65 Insulin: Yes - BIOTIN ORAL Take 1 tablet by mouth once daily. - Fish Oil-Jackson-3 Fatty Acids (FISH OIL OMEGA 3-6-9) 300-1,000 mg CpDR Take 3000 mg daily. - Lancets (ONE TOUCH ULTRASOFT LANCETS) Misc lancets twice daily. Use as instructed ( may dispense Deuca brand) - MULTIVITAMIN TAB Take one(1) tablet daily. - VITAMIN C 1,000 MG TAB Take one(1) tablet daily. Problem List As Of Date 12/12/2023 Noted Resolved GENERAL OSTEOARTHROSIS [M15.9] ESOPHAGEAL REFLUX [K21.9] Venous (peripheral) insufficiency [I87.2] Personal history of contact with and (suspected* 08/19/2014 Type 2 diabetes mellitus with diabetic neuropat* Class 3 severe obesity with body mass index (BM* Nonspecific abnormal results of liver function * 08/19/2014 Other hyperlipidemia [E78.49] Essential hypertension [I10] Diabetic polyneuropathy (HCC) [E11.42] 01/30/2006 04/24/2018 Coronary artery disease of [place] artery of [place]ai*10/07/2007 Persistent atrial fibrillation (HCC) [I48.19] 10/07/2007 JAMES (obstructive sleep apnea) [G47.33] 08/13/2013 08/19/2014 Memory disturbance [R41.3] 08/13/2013 Hematuria [R31.9] 05/31/2014 08/19/2014 BPH (benign prostatic hyperplasia) [N40.0] 05/31/2014 Chronic anticoagulation [Z79.01] 05/31/2014 08/19/2014 History of smoking [Z87.891] 05/31/2014 08/19/2014 Nephrolithiasis [N20.0] 10/17/2016 04/24/2018 Skin ulcer of toe of right foot, limited to catie*04/24/2018 07/24/2018 Osteomyelitis of second toe of right foot (HCC)*09/17/2019 06/21/2020 Osteomyelitis of third toe of right foot (HCC) *09/17/2019 06/21/2020 History of partial amputation of toe (HCC) [Z89*09/17/2019 Acute kidney injury (DANIEAL) with acute tubular ne*11/06/2019 06/21/2020 ROBIN (dyspnea on exertion) [R06.09] 11/06/2019 Statin intolerance [Z78.9] 03/31/2020 Chronic diastolic congestive heart failure (HCC*03/31/2020 Diabetic ulcer of toe of left foot associated w*06/21/2020 10/06/2020 Coronary arteriosclerosis after percutaneous tr*07/02/2020 07/02/2020 Valvular heart disease [I38] 08/18/2020 Venous stasis ulcer of right calf limited to br*10/06/2020 (more content not included)... Normal [facility] CNOVon 12-11-2023 CNOV Office Visit (INTMWS) MIGUELANGEL MOYA ([id number]) 1950 M Date Time Provider Department 12/11/23 9:20 AM KRISHNA REYNOLDS INTMWS During your visit today, we recorded the following information about you: Temperature Pulse Respiration Blood pressure 97.8 degrees 80/minute 16/minute 116/70 Weight 125.5 kg Krishna Reynolds MD 12/11/2023 10:19 AM Signed This note was created using Nafham. Subjective Miguelangel Moya is a 73 year old male. He was doing well and had no new concerns. We reviewed his lab results. He just saw cardiology and Praluent was increased and aspirin decreased. He continued on DAPT with no adverse effects. His kidney function improved, and nephrology follow up was now annually. Review of Systems Constitutional: Negative. Respiratory: Negative for chest tightness and shortness of breath. Cardiovascular: Negative for chest pain, palpitations and leg swelling. ACTIVE PROBLEM LIST Generalized Osteoarthrosis, Unspecified Site Esophageal Reflux Venous (Peripheral) Insufficiency Type 2 Diabetes Mellitus With Diabetic Neuropathy, With Long-Term Current Use of Insulin ([facility]) Class 3 Severe Obesity With Body Mass Index (Bmi) of 45.0 to 49.9 in Adult ([facility]) Other Hyperlipidemia Essential Hypertension Coronary Artery Disease of [place] Artery of [place] Heart With Stable Angina Pectoris ([facility]) Persistent Atrial Fibrillation ([facility]) Memory Disturbance Bph (Benign Prostatic Hyperplasia) History of Partial Amputation of Toe ([facility]) Robin (Dyspnea On Exertion) Statin Intolerance Chronic Diastolic Congestive Heart Failure ([facility]) Valvular Heart Disease Non-Seasonal Allergic Rhinitis Hypertensive Heart Disease With Chronic Diastolic Congestive Heart Failure ([facility]) Atherosclerosis of Aorta ([facility]) Social History Tobacco Use Smoking status: Never Smokeless tobacco: Current Types: Chew Vaping Use Vaping status: Never Used Substance Use Topics Alcohol use: Yes Comment: Rare Drug use: Never Current Outpatient Medications Medication Sig insulin degludec (TRESIBA FLEXTOUCH U-200) 200 unit/mL (3 mL) injection Inject 120 Units subcutaneously daily at bedtime. alirocumab (PRALUENT PEN) 150 mg/mL pen Inject 1 mL subcutaneously every other week. amLODIPine (NORVASC) 2.5 mg tablet Take 1 tablet by mouth once daily. Insulin Spruce, Disposable, 32 gauge x 5/32 Use with insulin 4 times a day. Dx: E11.40; Z79.4 clopidogrel (PLAVIX) 75 mg tablet Take 1 tablet by mouth once daily. metoprolol tartrate, short acting, (LOPRESSOR) 50 mg tablet Take 1 tablet by mouth three times a day. insulin aspart, niacinamide, (FIASP FLEXTOUCH U-100 INSULIN) 100 unit/mL (3 mL) pen Inject 25 units 3 times a day with meals PLUS Sliding scale as based on pre meal blood sugar as directed (~ 68 units daily) spironolactone (ALDACTONE) 25 mg tablet Take 1 tablet by mouth once daily. furosemide (LASIX) 80 mg tablet Take 1 tablet by mouth twice daily. Three times per day as directed PRN nitroglycerin sublingual (NITROQUICK) 0.4 mg SL tablet Dissolve 1 tablet under the tongue every 5 minutes as needed for chest pain. IF NO PAIN RELIEF WITH 2ND DOSE, CALL 911 blood sugar diagnostic (BLOOD GLUCOSE TEST) test strip Test blood sugar(s) 4-5 times daily Dx: Type 2 DM - Uncontrolled E11.65 Insulin: Yes BIOTIN ORAL Take 1 tablet by mouth once daily. Fish Oil-Jackson-3 Fatty Acids (FISH OIL OMEGA 3-6-9) 300-1,000 mg CpDR Take 3000 mg daily. Lancets (ONE TOUCH ULTRASOFT LANCETS) Mis lancets twice daily. Use as instructed ( may dispense Deuca brand) aspirin, enteric coated (ASPIRIN, ENTERIC COATED) 325 mg EC tablet Take 81 mg by mouth once daily. MULTIVITAMIN TAB Take one(1) tablet daily. VITAMIN C 1,000 MG TAB Take one(1) tablet daily. flash glucose scanning reader (FREESTYLE MERCY 2 READER) Test blood sugar(s) 4-5 times daily Dx: Type 2 DM - Uncontrolled E11.65 Insulin: Yes (Patient not taking: Reported on 12/11/2023) flash glucose sensor (FREESTYLE MERCY 2 SENSOR) kit Test blood sugar(s) 4-5 times daily Dx: Type 2 DM - Uncontrolled E11.65 Insulin: Yes (Patient not taking: Reported on 11/18/2023) No current facility-administere d medications for this visit. Objective BP 116/70 (BP Site: Left Arm, BP Position: Sitting, BP Cuff Size: Large Adult) Pulse 80 Temp 36.6 ?C (97.8 ?F) (Temporal) Resp 16 Wt 125.5 kg (276 lb 10.8 oz) BMI 43.33 kg/m? Physical Exam Constitutional: General: He is not in acute distress. HENT: Head: Normocephalic. Cardiovascular: Rate and Rhythm: Normal rate and regular rhythm. Heart sounds: No murmur heard. No gallop. Pulmonary: Effort: No respiratory distress. Breath sounds: No wheezing or rales. Musculoskeletal: Right lower leg: No edema. Left lower leg: No edema. Neurological: General: No focal deficit present. Mental Status: He is al (more content not included)... Normal [facility] Basic Metabolic Profile (BMP )on 12-04-2023 BUN/CRE 16.4 RATIO Normal 10-20 [facility] Comment on above: Performed By: #### L 500.4100, L501.9985, L500.2500 #### [facility] [address] [place], [address] CA,Total 9.3 mg/dL Normal 8.5-10.1 [facility] Comment on above: Performed By: #### L 500.4100, [id number], L500.2500 #### [facility] [address] [place], [address] Chloride [Moles/Vol] 104 mmol/L Normal 98-107 [facility] Comment on above: Performed By: #### L 500.4100, [id number], L500.2500 #### [facility] [address] [place], [address] CO2 [Moles/Vol] 27.0 mmol/L Normal 21.0-32.0 [facility] Comment on above: Performed By: #### L 500.4100, [id number], L500.2500 #### [facility] [address] [place], [address] Creatinine [Mass/Vol] 0.98 mg/dL Normal 0.70-1.30 [facility] Comment on above: Result Comment: The validity of the calculated GFR GFRAA in patients over 70 years has not been determined. Clinical correlation is essential. Performed By: #### L 500.4100, L501.9985, L500.2500 #### [facility] [address] [place], [address] EST GFR - AA 97 mL/min Normal >60 [facility] Comment on above: Result Comment: Afri can Citizen Of [place] GFR Calc Performed By: #### L 500.4100, [id number], L500.2500 #### [facility] [address] [place], [address] GAP 4 Low 5-15 [facility] Comment on above: Performed By: #### L 500.4100, [id number], L500.2500 #### [facility] [address] [place], [address] GFR/1.73 sq M.predicted among non-blacks MDRD (S/P/Bld) [Vol rate/Area] 80 mL/min/{1.73_m2} Normal >60 [facility] Comment on above: Result Comment: Non- GFR Calc Performed By: #### L 500.4100, L501.9985, L500.2500 #### [facility] [address] [place], [address] Glucose [Mass/Vol] 79 mg/dL Normal 74-106 [facility] Comment on above: Performed By: #### L 500.4100, [id number], L500.2500 #### [facility] [address] [place], [address] Potassium [Moles/Vol] 4.0 mmol/L Normal 3.5-5.1 [facility] Comment on above: Performed By: #### L 500.4100, [id number], L500.2500 #### [facility] [address] [place], [address] Sodium [Moles/Vol] 135 mmol/L Low 136-145 [facility] Comment on above: Performed By: #### L 500.4100, [id number], L500.2500 #### [facility] [address] [place], [address] Urea nitrogen [Mass/Vol] 16 mg/dL Normal 7-18 [facility] Comment on above: Performed By: #### L 500.4100, [id number], L500.2500 #### [facility] [address] [place], [address] Hemoglobin A1con 12-04-2023 HbA1c (Bld) [Mass fraction] 5.6 % Normal 3.8-5.6 [facility] Comment on above: Result Comment: Norm al < 5.7 % Prediabetic 5.7 - 6.4 % Diabetic >or= 6.5 % Please note range changes. Performed By: #### L 500.4100, [id number], L500.2500 #### [facility] [address] [place], [address] Lipid Profileon 12-04-2023 Cholesterol [Mass/Vol] 152 mg/dL Normal 200 [facility] Comment on above: Result Comment: <200 mg/dL Desirable 200-240 mg/dL Borderline >240 mg/dL High Risk Performed By: #### L 500.4100, [id number], L500.2500 #### [facility] [address] [place], [address] Cholesterol in HDL [Mass/Vol] 42 mg/dL Normal [facility] Comment on above: Result Comment: The drugs N-Acetylcysteine and Metamizole may falsely depress this assay. Reference Range HDL <40 mg/dL Low HDL Cholesterol HDL >or= 60 mg/dL High HDL Cholesterol Performed By: #### L 500.4100, [id number], L500.2500 #### [facility] [address] [place], [address] Cholesterol in LDL [Mass/Vol] 85 mg/dL Normal 0-130 [facility] Comment on above: Performed By: #### L 500.4100, [id number], L500.2500 #### [facility] [address] [place], [address] Cholesterol in VLDL [Mass/Vol] 25 mg/dL Normal 5-40 [facility] Comment on above: Performed By: #### L 500.4100, [id number], L500.2500 #### [facility] [address] [place], [address] Triglyceride [Mass/Vol] 126 mg/dL Normal [facility] Comment on above: Result Comment: The drugs N-Acetylcysteine and Metamizole may falsely depress this assay. Serum Triglycerides Reference Interval Normal <150 mg/dL Borderline high 150 - 199 mg/dL High 200 - 499 mg/dL Very High > or = 500 mg/dL Performed By: #### L 500.4100, [id number], L500.2500 #### [facility] [address] [place], [address] Basophil percentageOrdered B y: Krishna Reynolds on 05-31-2023 Bilirubin [Mass/Vol] 0.70 mg/dL 0.20-1.00 [facility] Comment on above: For patients on eltr ombopag therapy, use of [employer] [place] TBIL is not recommended. Chloride [Moles/Vol] 106 mmol/L 98-107 [facility] Cholesterol [Mass/Vol] 182 mg/dL <200 [facility] Comment on above: <200 mg/dL Desirable 200-240 mg/dL Borderline >240 mg/dL High Risk Glucose [Mass/Vol] 115 mg/dL 74-106 [facility] Comment on above: Fasting Glucose resu lt from 100 to 125 mg/dL suggests IMPAIRED HOMEOSTASIS per A.D.A. criteria. Potassium [Moles/Vol] 4.2 mmol/L 3.5-5.1 [facility] Comment on above: Slight Hemolysis, Re sult may be falsely increased. Protein [Mass/Vol] 7.2 g/dL 6.4-8.2 [facility] Sodium [Moles/Vol] 139 mmol/L 136-145 [facility] Triglyceride [Mass/Vol] 149 mg/dL <199 [facility] Comment on above: The drugs N-Acetylcy steine and Metamizole may falsely depress this assay.Serum Triglycerides Reference Interval Normal <150 mg/dL Borderline high 150 - 199 mg/dL High 200 - 499 mg/dL Very High > or = 500 mg/dL Laboratory - Chemistry and C hemistry - challengeOrdered By: Krishna Reynolds on 05-31-2023 Albumin/Globulin [Mass ratio] 0.8 {ratio} 0.9-2.4 [facility] ALP [Catalytic activity/Vol] 85 U/L 45-117 [facility] ALT [Catalytic activity/Vol] 27 U/L 16-61 [facility] Cholesterol in HDL [Mass/Vol] 43 mg/dL >40 [facility] Comment on above: The drugs N-Acetylcy steine and Metamizole may falsely depress this assay. Reference Range HDL <40 mg/dL Low HDL Cholesterol HDL >or= 60 mg/dL High HDL Cholesterol Cholesterol in LDL [Mass/Vol] 109 mg/dL 0-130 [facility] CO2 [Moles/Vol] 24.0 mmol/L 21.0-32.0 [facility] Globulin (S) [Mass/Vol] 3.9 g/dL 2.2-4.2 [facility] Urea nitrogen/Creatinine [Mass ratio] 14.4 mg/mg 10-20 [facility] No Panel InformationOrdered By: Krishna Reynolds on 05-31-2023 Estimated GFR (MDRD) Amer 90 mL/min >60 [facility] Comment on above: GFR Calc Estimated GFR (MDRD) Non-Af Amer 74 mL/min >60 [facility] Comment on above: Non- GFR Calc VLDL Cholesterol 30 mg/dL 5-40 [facility] Serum or plasma calcium [place] urement (mass/volume)Ordered By: Krishna Reynolds on 05-31-2023 Calcium [Mass/Vol] 9.7 mg/dL 8.5-10.1 [facility] Serum or plasma creatinine m easurement (mass/volume)Ordered By: Krishna Reynolds on 05-31-2023 Creatinine [Mass/Vol] 1.04 mg/dL 0.70-1.30 [facility] [place] Comment on above: The validity of the calculated GFR & GFRAA in patients over 70 years has not been determined. Clinical correlation is essential. Serum or plasma urea nitroge n measurement (mass/volume)Ordered By: Krishna Reynolds on 05-31-2023 Urea nitrogen [Mass/Vol] 15 mg/dL 7-18 [facility] Thin prep Papanicolaou smear with manual screeningOrdered By: Krishna Reynolds on 05-31-2023 Thin prep Papanicolaou smear with manual screening 3.3 g/dL 3.2-5.0 [facility] Thin prep Papanicolaou smear with manual screening 28 U/L 15-37 [facility] Comment on above: Slight Hemolysis, Re sult may be falsely increased. Thin prep Papanicolaou smear with manual screening 9 5-15 [facility] Whole blood hemoglobin A1c/t otal hemoglobin ratio (mass fraction)Ordered By: Krishna Reynolds on 05-31-2023 HbA1c (Bld) [Mass fraction] 5.7 % 3.8-5.6 [facility] Comment on above: Normal < 5.7 % Predi abetic 5.7 - 6.4 % Diabetic >or= 6.5 % Please note range changes. Basophil percentageOrdered B y: Wood Kraus on 02-15-2023 Basophil percentage 3.6 mg/dL 2.5-4.9 [facility] Chloride [Moles/Vol] 105 mmol/L 98-107 [facility] Glucose [Mass/Vol] 75 mg/dL 74-106 [facility] Potassium [Moles/Vol] 4.2 mmol/L 3.5-5.1 [facility] [place] Sodium [Moles/Vol] 138 mmol/L 136-145 [facility] WBC (Bld) [#/Vol] 5.8 10*3/uL 4.4-11.0 [facility] Blood erythrocytes count (nu mber/volume)Ordered By: Wood Kraus on 02-15-2023 RBC (Bld) [#/Vol] 5.17 10*6/uL 4.6-6.2 [facility] Blood hemoglobin measurement (mass/volume)Ordered By: Wood Kraus on 02-15-2023 Hemoglobin (Bld) [Mass/Vol] 15.6 g/dL 13.0-16.5 [facility] Blood platelet mean volumeOr dered By: Wood Kraus on 02-15-2023 Platelet mean volume (Bld) [Entitic vol] 8.6 fL 6.2-12.0 [facility] Determination of erythrocyte mean corpuscular volume (MCV)Ordered By: Wood Kraus on 02-15-2023 MCV (RBC) [Entitic vol] 92.3 fL 80-94 [facility] Hematocrit Auto (Bld) [Volum e fraction]Ordered By: Wood Kraus on 02-15-2023 Hematocrit (Bld) [Volume fraction] 47.7 % 40-54 [facility] Laboratory - Chemistry and C hemistry - challengeOrdered By: Wood Kraus on 02-15-2023 CO2 [Moles/Vol] 27.0 mmol/L 21.0-32.0 [facility] Urea nitrogen/Creatinine [Mass ratio] 14.4 mg/mg 10-20 [facility] Laboratory - Hematology and Cell countsOrdered By: Wood Kraus on 02-15-2023 Erythrocyte distribution width (RBC) [Entitic vol] 46.6 fL 35.1-43.9 [facility] Erythrocyte distribution width (RBC) [Ratio] 13.5 % 11.6-14.6 [facility] MCH (RBC) [Entitic mass] 30.2 pg 27.0-32.0 [facility] MCHC Auto (RBC) [Mass/Vol]Or dered By: Wood Kraus on 02-15-2023 MCHC (RBC) [Mass/Vol] 32.7 g/dL 32-36 [facility] [place] No Panel InformationOrdered By: Wood Kraus on 02-15-2023 Estimated GFR (MDRD) Amer 78 mL/min >60 [facility] Comment on above: GFR Calc Estimated GFR (MDRD) Non-Af Amer 64 mL/min >60 [facility] Comment on above: Non- GFR Calc Parathyroid Hormone (Intact) 152.6 pg/mL 18.4-80.1 [facility] Vitamin D 25-Hydroxy 42.6 ng/mL [facility] Comment on above: Vitamin D 25(OH) Sta tus Range Deficiency <20 ng/mL (50nmol/L) Insufficiency 20 - 30 ng/mL (50 - 75 nmol/L) Sufficiency 30 - 100 ng/mL (75 - 250 nmol/L) Toxicity >100 ng/mL (>250 nmol/L) Platelets bldOrdered By: Gabriel Kraus on 02-15-2023 Platelets (Bld) [#/Vol] 245 10*3/uL 150-450 [facility] Serum or plasma albumin monroe urement (mass/volume)Ordered By: Wood Kraus on 02-15-2023 Albumin [Mass/Vol] 3.2 g/dL 3.2-5.0 [facility] Serum or plasma calcium monroe urement (mass/volume)Ordered By: Wood Kraus on 02-15-2023 Calcium [Mass/Vol] 8.9 mg/dL 8.5-10.1 [facility] Serum or plasma creatinine m easurement (mass/volume)Ordered By: Wood Kraus on 02-15-2023 Creatinine [Mass/Vol] 1.18 mg/dL 0.70-1.30 [facility] [place] Comment on above: The validity of the calculated GFR & GFRAA in patients over 70 years has not been determined. Clinical correlation is essential. Serum or plasma urea nitroge n measurement (mass/volume)Ordered By: Wood Kraus on 02-15-2023 Urea nitrogen [Mass/Vol] 17 mg/dL 7-18 [facility] Urine creatinine measurement (mass/volume)Ordered By: Wood Kraus on 02-15-2023 Creatinine (U) [Mass/Vol] 38.90 mg/dL NO RANGE EST. [facility] Urine protein measurement (m ass/volume)Ordered By: Wood Kraus on 02-15-2023 Protein (U) [Mass/Vol] mg/dL 0.0-11.8 [facility] Urine protein/creatinine mas s ratioOrdered By: Wood Kraus on 02-15-2023 Protein/Creatinine (U) [Mass ratio] TNP [facility] Comment on above: Test not performed Basophil percentageOrdered B y: Krishna Reynolds on 11-30-2022 Chloride [Moles/Vol] 104 mmol/L 98-107 [facility] Cholesterol [Mass/Vol] 225 mg/dL <200 [facility] Comment on above: <200 mg/dL Desirable 200-240 mg/dL Borderline >240 mg/dL High Risk Glucose [Mass/Vol] 107 mg/dL 74-106 [facility] Comment on above: Fasting Glucose resu lt from 100 to 125 mg/dL suggests IMPAIRED HOMEOSTASIS per A.D.A. criteria. Potassium [Moles/Vol] 4.4 mmol/L 3.5-5.1 [facility] [place] Comment on above: Slight Hemolysis, Re sult may be falsely increased. Sodium [Moles/Vol] 138 mmol/L 136-145 [facility] Triglyceride [Mass/Vol] 144 mg/dL <199 [facility] Comment on above: The drugs N-Acetylcy steine and Metamizole may falsely depress this assay.Serum Triglycerides Reference Interval Normal <150 mg/dL Borderline high 150 - 199 mg/dL High 200 - 499 mg/dL Very High > or = 500 mg/dL Laboratory - Chemistry and C hemistry - challengeOrdered By: Krishna Reynolds on 11-30-2022 CO2 [Moles/Vol] 29.0 mmol/L 21.0-32.0 [facility] Urea nitrogen/Creatinine [Mass ratio] 15.2 mg/mg 10-20 [facility] No Panel InformationOrdered By: Krishna Reynolds on 11-30-2022 Estimated GFR (MDRD) Amer 83 mL/min >60 [facility] Comment on above: GFR Calc Estimated GFR (MDRD) Non-Af Amer 68 mL/min >60 [facility] Comment on above: Non- GFR Calc Serum or plasma calcium monroe urement (mass/volume)Ordered By: Krishna Reynolds on 11-30-2022 Calcium [Mass/Vol] 9.0 mg/dL 8.5-10.1 [facility] Serum or plasma cholesterol in HDL measurement (mass/volume)Ordered By: Krishna Reynolds on 11-30-2022 Cholesterol in HDL [Mass/Vol] 42 mg/dL >40 [facility] Comment on above: The drugs N-Acetylcy steine and Metamizole may falsely depress this assay. Reference Range HDL <40 mg/dL Low HDL Cholesterol HDL >or= 60 mg/dL High HDL Cholesterol Serum or plasma cholesterol in VLDL measurement (mass/volume)Ordered By: Krishna Reynolds on 11-30-2022 Cholesterol in VLDL [Mass/Vol] 29 mg/dL 5-40 [facility] Serum or plasma creatinine m easurement (mass/volume)Ordered By: Krishna Reynolds on 11-30-2022 Creatinine [Mass/Vol] 1.12 mg/dL 0.70-1.30 [facility] [place] Comment on above: The validity of the calculated GFR & GFRAA in patients over 70 years has not been determined. Clinical correlation is essential. Serum or plasma low density lipoprotein (LDL) cholesterol measurement (mass/volume)Ordered By: Krishna Reynolds on 11-30-2022 Cholesterol in LDL [Mass/Vol] 154 mg/dL 0-130 [facility] Serum or plasma urea nitroge n measurement (mass/volume)Ordered By: Krishna Reynolds on 11-30-2022 Urea nitrogen [Mass/Vol] 17 mg/dL 7-18 [facility] Thin prep Papanicolaou smear with manual screeningOrdered By: Krishna Reynolds on 11-30-2022 Thin prep Papanicolaou smear with manual screening 5 5-15 [facility] Whole blood hemoglobin A1c/t otal hemoglobin ratio (mass fraction)Ordered By: Krishna Reynolds on 11-30-2022 HbA1c (Bld) [Mass fraction] 5.9 % 3.8-5.6 [facility] Comment on above: Normal < 5.7 % Predi abetic 5.7 - 6.4 % Diabetic >or= 6.5 % Please note range changes. ECHOon 08-27-2022 [facility] LVEF TRANSTHORACIC ECHOon LV Ejection Fraction 61 % [facility] Basophil percentageOrdered B y: Dr. Kraus on 08-17-2022 Basophil percentage 3.8 mg/dL 2.5-4.9 [facility] Chloride [Moles/Vol] 103 mmol/L 98-107 [facility] Glucose [Mass/Vol] 97 mg/dL 74-106 [facility] Potassium [Moles/Vol] 4.1 mmol/L 3.5-5.1 [facility] [place] Sodium [Moles/Vol] 139 mmol/L 136-145 [facility] WBC (Bld) [#/Vol] 5.5 10*3/uL 4.4-11.0 [facility] Blood erythrocytes count (nu mber/volume)Ordered By: Dr. Kraus on 08-17-2022 RBC (Bld) [#/Vol] 5.09 10*6/uL 4.6-6.2 [facility] Blood hemoglobin measurement (mass/volume)Ordered By: Dr. Kraus on 08-17-2022 Hemoglobin (Bld) [Mass/Vol] 15.2 g/dL 13.0-16.5 [facility] Blood platelet mean volumeOr dered By: Dr. Kraus on 08-17-2022 Platelet mean volume (Bld) [Entitic vol] 9.3 fL 6.2-12.0 [facility] Determination of erythrocyte mean corpuscular volume (MCV)Ordered By: Dr. Kraus on 08-17-2022 MCV (RBC) [Entitic vol] 92.1 fL 80-94 [facility] Hematocrit Auto (Bld) [Volum e fraction]Ordered By: Dr. Kraus on 08-17-2022 Hematocrit (Bld) [Volume fraction] 46.9 % 40-54 [facility] Laboratory - Chemistry and C hemistry - challengeOrdered By: Dr. Kraus on 08-17-2022 CO2 [Moles/Vol] 31.0 mmol/L 21.0-32.0 [facility] Urea nitrogen/Creatinine [Mass ratio] 15.3 mg/mg 10-20 [facility] Laboratory - Hematology and Cell countsOrdered By: Dr. Kraus on 08-17-2022 Erythrocyte distribution width (RBC) [Entitic vol] 45.6 fL 35.1-43.9 [facility] Erythrocyte distribution width (RBC) [Ratio] 13.4 % 11.6-14.6 [facility] MCH (RBC) [Entitic mass] 29.9 pg 27.0-32.0 [facility] Auto (RBC) [Mass/Vol]Or dered By: Dr. Kraus on 08-17-2022 MCHC (RBC) [Mass/Vol] 32.4 g/dL 32-36 [facility] [place] No Panel InformationOrdered By: Dr. Kraus on 08-17-2022 Estimated GFR (MDRD) Amer 69 mL/min >60 [facility] Comment on above: GFR Calc Estimated GFR (MDRD) Non-Af Amer 57 mL/min >60 [facility] Comment on above: Non- GFR Calc Parathyroid Hormone (Intact) 206.5 pg/mL 18.4-80.1 [facility] Vitamin D 25-Hydroxy 39.2 ng/mL [facility] Comment on above: Vitamin D 25(OH) Sta tus Range Deficiency <20 ng/mL (50nmol/L) Insufficiency 20 - 30 ng/mL (50 - 75 nmol/L) Sufficiency 30 - 100 ng/mL (75 - 250 nmol/L) Toxicity >100 ng/mL (>250 nmol/L) Platelets bldOrdered By: Dr. Kraus on 08-17-2022 Platelets (Bld) [#/Vol] 250 10*3/uL 150-450 [facility] Serum or plasma albumin monroe urement (mass/volume)Ordered By: Dr. Kraus on 08-17-2022 Albumin [Mass/Vol] 3.3 g/dL 3.2-5.0 [facility] Serum or plasma calcium monroe urement (mass/volume)Ordered By: Dr. Kraus on 08-17-2022 Calcium [Mass/Vol] 8.9 mg/dL 8.5-10.1 [facility] Serum or plasma creatinine m easurement (mass/volume)Ordered By: Dr. Kraus on 08-17-2022 Creatinine [Mass/Vol] 1.31 mg/dL 0.70-1.30 [facility] [place] Comment on above: The validity of the calculated GFR & GFRAA in patients over 70 years has not been determined. Clinical correlation is essential. Serum or plasma urea nitroge n measurement (mass/volume)Ordered By: Dr. Kraus on 08-17-2022 Urea nitrogen [Mass/Vol] 20 mg/dL 7-18 [facility] Urine creatinine measurement (mass/volume)Ordered By: Dr. Kraus on 08-17-2022 Creatinine (U) [Mass/Vol] 54.90 mg/dL NO RANGE EST. [facility] Urine protein measurement (m ass/volume)Ordered By: Dr. Kraus on 08-17-2022 Protein (U) [Mass/Vol] 8.1 mg/dL 0.0-11.8 [facility] Urine protein/creatinine mas s ratioOrdered By: Dr. Kraus on 08-17-2022 Protein/Creatinine (U) [Mass ratio] 148 mg/g CRE 0-200 [facility] Basophil percentageOrdered B y: Leila Older on 05-25-2022 Bilirubin [Mass/Vol] 0.90 mg/dL 0.20-1.00 [facility] Comment on above: For patients on eltr ombopag therapy, use of [employer] [place] TBIL is not recommended. Chloride [Moles/Vol] 100 mmol/L 98-107 [facility] Cholesterol [Mass/Vol] 251 mg/dL <200 [facility] Comment on above: <200 mg/dL Desirable 200-240 mg/dL Borderline >240 mg/dL High Risk Glucose [Mass/Vol] 82 mg/dL 74-106 [facility] Potassium [Moles/Vol] 4.3 mmol/L 3.5-5.1 [facility] [place] Comment on above: Moderate Hemolysis, Result may be falsely increased. Protein [Mass/Vol] 7.3 g/dL 6.4-8.2 [facility] Sodium [Moles/Vol] 138 mmol/L 136-145 [facility] Triglyceride [Mass/Vol] 145 mg/dL <199 [facility] Comment on above: The drugs N-Acetylcy steine and Metamizole may falsely depress this assay.Serum Triglycerides Reference Interval Normal <150 mg/dL Borderline high 150 - 199 mg/dL High 200 - 499 mg/dL Very High > or = 500 mg/dL WBC (Bld) [#/Vol] 5.2 10*3/uL 4.4-11.0 [facility] Blood erythrocytes count (nu mber/volume)Ordered By: Leila Russell on 05-25-2022 RBC (Bld) [#/Vol] 4.91 10*6/uL 4.6-6.2 [facility] Blood hemoglobin measurement (mass/volume)Ordered By: [facility] Older on 05-25-2022 Hemoglobin (Bld) [Mass/Vol] 14.7 g/dL 13.0-16.5 [facility] Blood platelet mean volumeOr dered By: [facility] Older on 05-25-2022 Platelet mean volume (Bld) [Entitic vol] 9.2 fL 6.2-12.0 [facility] Determination of erythrocyte mean corpuscular volume (MCV)Ordered By: [facility] on 05-25-2022 MCV (RBC) [Entitic vol] 91.6 fL 80-94 [facility] Hematocrit Auto (Bld) [Volum e fraction]Ordered By: [facility] on 05-25-2022 Hematocrit (Bld) [Volume fraction] 45.0 % 40-54 [facility] Laboratory - Chemistry and C hemistry - challengeOrdered By: [facility] on 05-25-2022 ALP [Catalytic activity/Vol] 74 U/L 45-117 [facility] ALT [Catalytic activity/Vol] 24 U/L 16-61 [facility] CO2 [Moles/Vol] 31.0 mmol/L 21.0-32.0 [facility] Globulin (S) [Mass/Vol] 3.9 g/dL 2.2-4.2 [facility] Urea nitrogen/Creatinine [Mass ratio] 15.2 mg/mg 10-20 [facility] Laboratory - Hematology and Cell countsOrdered By: [facility] on 05-25-2022 Erythrocyte distribution width (RBC) [Entitic vol] 43.6 fL 35.1-43.9 [facility] Erythrocyte distribution width (RBC) [Ratio] 13.1 % 11.6-14.6 [facility] MCH (RBC) [Entitic mass] 29.9 pg 27.0-32.0 [facility] MCHC Auto (RBC) [Mass/Vol]Or dered By: [facility] on 05-25-2022 MCHC (RBC) [Mass/Vol] 32.7 g/dL 32-36 [facility] [place] No Panel InformationOrdered By: Leila Older on 05-25-2022 Estimated GFR (MDRD) Amer 83 mL/min >60 [facility] Comment on above: GFR Calc Estimated GFR (MDRD) Non-Af Amer 69 mL/min >60 [facility] Comment on above: Non- GFR Calc Urine Microalbumin/Creatinine Ratio 21.5 mg/g CRE <30 [facility] Platelets bldOrdered By: Leila Russell on 05-25-2022 Platelets (Bld) [#/Vol] 235 10*3/uL 150-450 [facility] Serum or plasma albumin monroe urement (mass/volume)Ordered By: Leila [facility] on 05-25-2022 Albumin [Mass/Vol] 3.4 g/dL 3.2-5.0 [facility] Serum or plasma albumin/glob ulin mass ratioOrdered By: [facility] on 05-25-2022 Albumin/Globulin [Mass ratio] 0.9 {ratio} 0.9-2.4 [facility] Serum or plasma calcium monroe urement (mass/volume)Ordered By: Leila Russell on 05-25-2022 Calcium [Mass/Vol] 9.6 mg/dL 8.5-10.1 [facility] Serum or plasma cholesterol in HDL measurement (mass/volume)Ordered By: Leila Russell on 05-25-2022 Cholesterol in HDL [Mass/Vol] 42 mg/dL >40 [facility] Comment on above: The drugs N-Acetylcy steine and Metamizole may falsely depress this assay. Reference Range HDL <40 mg/dL Low HDL Cholesterol HDL >or= 60 mg/dL High HDL Cholesterol Serum or plasma cholesterol in VLDL measurement (mass/volume)Ordered By: Leila [facility] on 05-25-2022 Cholesterol in VLDL [Mass/Vol] 29 mg/dL 5-40 [facility] Serum or plasma creatinine m easurement (mass/volume)Ordered By: Leila Russell on 05-25-2022 Creatinine [Mass/Vol] 1.12 mg/dL 0.70-1.30 [facility] [place] Comment on above: The validity of the calculated GFR & GFRAA in patients over 70 years has not been determined. Clinical correlation is essential. Serum or plasma low density lipoprotein (LDL) cholesterol measurement (mass/volume)Ordered By: Leila Russell on 05-25-2022 Cholesterol in LDL [Mass/Vol] 180 mg/dL 0-130 [facility] Serum or plasma urea nitroge n measurement (mass/volume)Ordered By: Leila Russell on 05-25-2022 Urea nitrogen [Mass/Vol] 17 mg/dL 7-18 [facility] Thin prep Papanicolaou smear with manual screeningOrdered By: [facility] on 05-25-2022 Thin prep Papanicolaou smear with manual screening 37 U/L 15-37 [facility] Comment on above: Moderate Hemolysis, Result may be falsely increased. Thin prep Papanicolaou smear with manual screening 7 5-15 [facility] Thin prep Papanicolaou smear with manual screening 32.0 mg/L NO RANGE EST. [facility] Urine creatinine measurement (mass/volume)Ordered By: Leila Drew on 05-25-2022 Creatinine (U) [Mass/Vol] 149.00 mg/dL NO RANGE EST. [facility] Whole blood hemoglobin A1c/t otal hemoglobin ratio (mass fraction)Ordered By: Leila Russell on 05-25-2022 HbA1c (Bld) [Mass fraction] 5.8 % 3.8-5.6 [facility] Comment on above: Normal < 5.7 % Predi abetic 5.7 - 6.4 % Diabetic >or= 6.5 % Please note range changes. Basophil percentageOrdered B y: Dr. Kraus on 02-20-2022 Chloride [Moles/Vol] 100 mmol/L 98-107 [facility] Glucose [Mass/Vol] 78 mg/dL 74-106 [facility] Potassium [Moles/Vol] 4.1 mmol/L 3.5-5.1 [facility] [place] Sodium [Moles/Vol] 138 mmol/L 136-145 [facility] Laboratory - Chemistry and C hemistry - challengeOrdered By: Dr. Kraus on 02-20-2022 CO2 [Moles/Vol] 31.0 mmol/L 21.0-32.0 [facility] Urea nitrogen/Creatinine [Mass ratio] 16.5 mg/mg 10-20 [facility] No Panel InformationOrdered By: Dr. Kraus on 02-20-2022 Estimated GFR (MDRD) Amer 81 mL/min >60 [facility] Comment on above: GFR Calc Estimated GFR (MDRD) Non-Af Amer 67 mL/min >60 [facility] Comment on above: Non- GFR Calc Serum or plasma calcium monroe urement (mass/volume)Ordered By: Dr. Kraus on 02-20-2022 Calcium [Mass/Vol] 8.6 mg/dL 8.5-10.1 [facility] Serum or plasma creatinine m easurement (mass/volume)Ordered By: Dr. Kraus on 02-20-2022 Creatinine [Mass/Vol] 1.15 mg/dL 0.70-1.30 [facility] [place] Comment on above: The validity of the calculated GFR & GFRAA in patients over 70 years has not been determined. Clinical correlation is essential. Serum or plasma urea nitroge n measurement (mass/volume)Ordered By: Dr. Kraus on 02-20-2022 Urea nitrogen [Mass/Vol] 19 mg/dL 7-18 [facility] Thin prep Papanicolaou smear with manual screeningOrdered By: Dr. Kraus on 02-20-2022 Thin prep Papanicolaou smear with manual screening 7 5-15 [facility] Urine creatinine measurement (mass/volume)Ordered By: Dr. Kraus on 02-20-2022 Creatinine (U) [Mass/Vol] 68.10 mg/dL NO RANGE EST. [facility] Urine protein measurement (m ass/volume)Ordered By: Dr. Kraus on 02-20-2022 Protein (U) [Mass/Vol] 8.5 mg/dL 0.0-11.8 [facility] Urine protein/creatinine mas s ratioOrdered By: Dr. Kraus on 02-20-2022 Protein/Creatinine (U) [Mass ratio] 125 mg/g CRE 0-200 [facility] Basophil percentageon 2021 Chloride [Moles/Vol] 102 mmol/L 98-107 [facility] Work Phone: Glucose [Mass/Vol] 81 mg/dL 74-106 [facility] Work Phone: Potassium [Moles/Vol] 4.3 mmol/L 3.5-5.1 [facility] [place] Work Phone: Sodium [Moles/Vol] 138 mmol/L 136-145 [facility] Work Phone: Laboratory - Chemistry and C hemistry - challengeon 01-12-2022 CO2 [Moles/Vol] 32.0 mmol/L 21.0-32.0 [facility] Work Phone: Urea nitrogen/Creatinine [Mass ratio] 17.5 mg/mg 10-20 [facility] Work Phone: No Panel Informationon 01-12 Estimated GFR (MDRD) Amer 77 mL/min >60 [facility] Work Phone: Comment on above: GFR Calc Estimated GFR (MDRD) Non-Af Amer 63 mL/min >60 [facility] Work Phone: Comment on above: Non- GFR Calc Serum or plasma calcium monroe urement (mass/volume)on 01-12-2022 Calcium [Mass/Vol] 9.2 mg/dL 8.5-10.1 [facility] Work Phone: Serum or plasma creatinine m easurement (mass/volume)on 01-12-2022 Creatinine [Mass/Vol] 1.20 mg/dL 0.70-1.30 [facility] [place] Work Phone: Comment on above: The validity of the calculated GFR & GFRAA in patients over 70 years has not been determined. Clinical correlation is essential. Serum or plasma urea nitroge n measurement (mass/volume)on 01-12-2022 Urea nitrogen [Mass/Vol] 21 mg/dL 7-18 [facility] Work Phone: [phone] Thin prep Papanicolaou smear with manual screeningon 01-12-2022 Thin prep Papanicolaou smear with manual screening 4 5-15 [facility] Work Phone: [phone] Whole blood hemoglobin A1c/t otal hemoglobin ratio (mass fraction)on 01-12-2022 HbA1c (Bld) [Mass fraction] 6.3 % 3.8-5.6 [facility] Work Phone: Comment on above: Normal < 5.7 % Predi abetic 5.7 - 6.4 % Diabetic >or= 6.5 % Please note range changes. Basophil percentageon 2021 Chloride [Moles/Vol] 102 mmol/L 98-107 [facility] Work Phone: [phone] Cholesterol [Mass/Vol] 282 mg/dL <200 [facility] Work Phone: Comment on above: <200 mg/dL Desirable 200-240 mg/dL Borderline >240 mg/dL High Risk Glucose [Mass/Vol] 145 mg/dL 74-106 [facility] Work Phone: Comment on above: Fasting Glucose resu lt greater than or equal to 126 mg/dL suggests DIABETES MELLITUS per A.D.A. criteria. Potassium [Moles/Vol] 4.3 mmol/L 3.5-5.1 [facility] [place] Work Phone: Sodium [Moles/Vol] 137 mmol/L 136-145 [facility] Work Phone: [phone] Triglyceride [Mass/Vol] 181 mg/dL <199 [facility] Work Phone: Comment on above: The drugs N-Acetylcy steine and Metamizole may falsely depress this assay.Serum Triglycerides Reference Interval Normal <150 mg/dL Borderline high 150 - 199 mg/dL High 200 - 499 mg/dL Very High > or = 500 mg/dL Laboratory - Chemistry and C hemistry - challengeon 08-23-2021 CO2 [Moles/Vol] 28.0 mmol/L 21.0-32.0 [facility] Work Phone: [phone] Urea nitrogen/Creatinine [Mass ratio] 26.3 mg/mg 10-20 [facility] Work Phone: [phone] No Panel Informationon 08-23 Estimated GFR (MDRD) Amer 78 mL/min >60 [facility] Work Phone: Comment on above: GFR Calc Estimated GFR (MDRD) Non-Af Amer 65 mL/min >60 [facility] Work Phone: Comment on above: Non- GFR Calc Serum or plasma calcium monroe urement (mass/volume)on 08-23-2021 Calcium [Mass/Vol] 9.3 mg/dL 8.5-10.1 [facility] Work Phone: Serum or plasma cholesterol in HDL measurement (mass/volume)on 08-23-2021 Cholesterol in HDL [Mass/Vol] 43 mg/dL >40 [facility] Work Phone: Comment on above: The drugs N-Acetylcy steine and Metamizole may falsely depress this assay. Reference Range HDL <40 mg/dL Low HDL Cholesterol HDL >or= 60 mg/dL High HDL Cholesterol Serum or plasma cholesterol in VLDL measurement (mass/volume)on 08-23-2021 Cholesterol in VLDL [Mass/Vol] 36 mg/dL 5-40 [facility] Work Phone: Serum or plasma creatinine m easurement (mass/volume)on 08-23-2021 Creatinine [Mass/Vol] 1.18 mg/dL 0.70-1.30 [facility] [place] Work Phone: Comment on above: The validity of the calculated GFR & GFRAA in patients over 70 years has not been determined. Clinical correlation is essential. Serum or plasma low density lipoprotein (LDL) cholesterol measurement (mass/volume)on 08-23-2021 Cholesterol in LDL [Mass/Vol] 203 mg/dL 0-130 [facility] Work Phone: Serum or plasma urea nitroge n measurement (mass/volume)on 08-23-2021 Urea nitrogen [Mass/Vol] 31 mg/dL 7-18 [facility] Work Phone: Thin prep Papanicolaou smear with manual screeningon 08-23-2021 Thin prep Papanicolaou smear with manual screening 7 5-15 [facility] Work Phone: Whole blood hemoglobin A1c/t otal hemoglobin ratio (mass fraction)on 08-23-2021 HbA1c (Bld) [Mass fraction] 6.5 % 3.8-5.6 [facility] Work Phone: Comment on above: Normal < 5.7 % Predi abetic 5.7 - 6.4 % Diabetic >or= 6.5 % Please note range changes. Basophil percentageon 2021 Chloride [Moles/Vol] 101 mmol/L 98-107 [facility] Work Phone: Glucose [Mass/Vol] 174 mg/dL 74-106 [facility] Work Phone: Comment on above: Fasting Glucose resu lt greater than or equal to 126 mg/dL suggests DIABETES MELLITUS per A.D.A. criteria. Potassium [Moles/Vol] 4.6 mmol/L 3.5-5.1 [facility] [place] Work Phone: [phone] Sodium [Moles/Vol] 135 mmol/L 136-145 [facility] Work Phone: Laboratory - Chemistry and C hemistry - challengeon 08-22-2021 CO2 [Moles/Vol] 27.0 mmol/L 21.0-32.0 [facility] Work Phone: [phone] Urea nitrogen/Creatinine [Mass ratio] 22.7 mg/mg 10-20 [facility] Work Phone: No Panel Informationon 08-22 Estimated GFR (MDRD) Amer 69 mL/min >60 [facility] Work Phone: Comment on above: GFR Calc Estimated GFR (MDRD) Non-Af Amer 57 mL/min >60 [facility] Work Phone: Comment on above: Non- GFR Calc Serum or plasma calcium monroe urement (mass/volume)on 08-22-2021 Calcium [Mass/Vol] 9.0 mg/dL 8.5-10.1 [facility] Work Phone: [phone] Serum or plasma creatinine m easurement (mass/volume)on 08-22-2021 Creatinine [Mass/Vol] 1.32 mg/dL 0.70-1.30 [facility] [place] Work Phone: [phone] Comment on above: The validity of the calculated GFR & GFRAA in patients over 70 years has not been determined. Clinical correlation is essential. Serum or plasma urea nitroge n measurement (mass/volume)on 08-22-2021 Urea nitrogen [Mass/Vol] 30 mg/dL 7-18 [facility] Work Phone: Thin prep Papanicolaou smear with manual screeningon 08-22-2021 Thin prep Papanicolaou smear with manual screening 7 5-15 [facility] Work Phone: [phone] Urine creatinine measurement (mass/volume)on 08-22-2021 Creatinine (U) [Mass/Vol] 46.70 mg/dL NO RANGE EST. [facility] Work Phone: Urine protein measurement (m ass/volume)on 08-22-2021 Protein (U) [Mass/Vol] mg/dL 0.0-11.8 [facility] Work Phone: Urine protein/creatinine mas s ratioon 08-22-2021 Protein/Creatinine (U) [Mass ratio] TNP [facility] Work Phone: [phone] Comment on above: Test not performed Basophil percentageon 2021 Cholesterol [Mass/Vol] 264 mg/dL <200 [facility] Work Phone: Comment on above: <200 mg/dL Desirable 200-240 mg/dL Borderline >240 mg/dL High Risk Triglyceride [Mass/Vol] 275 mg/dL [facility] Work Phone: Comment on above: The drugs N-Acetylcy steine and Metamizole may falsely depress this assay.Serum Triglycerides Reference Interval Normal <150 mg/dL Borderline high 150 - 199 mg/dL High 200 - 499 mg/dL Very High > or = 500 mg/dL Serum or plasma cholesterol in HDL measurement (mass/volume)on 05-18-2021 Cholesterol in HDL [Mass/Vol] 43 mg/dL [facility] Work Phone: [phone] Comment on above: The drugs N-Acetylcy steine and Metamizole may falsely depress this assay. Reference Range HDL <40 mg/dL Low HDL Cholesterol HDL >or= 60 mg/dL High HDL Cholesterol Serum or plasma cholesterol in VLDL measurement (mass/volume)on 05-18-2021 Cholesterol in VLDL [Mass/Vol] 55 mg/dL 5-40 [facility] Work Phone: Serum or plasma low density lipoprotein (LDL) cholesterol measurement (mass/volume)on 05-18-2021 Cholesterol in LDL [Mass/Vol] 166 mg/dL 0-130 [facility] Work Phone: Whole blood hemoglobin A1c/t otal hemoglobin ratio (mass fraction)on 05-18-2021 HbA1c (Bld) [Mass fraction] 8.1 % 3.8-5.6 [facility] Work Phone: Comment on above: Normal < 5.7 % Predi abetic 5.7 - 6.4 % Diabetic >or= 6.5 % Please note range changes. XR Foot - left AP and Latera l and obliqueon 09-05-2020 IMPRESSION: Stable postsurgical changes as described Memorial Designer: ASHUTOSH Transcribe Date/Time: Sep 05 2020 3:09P Dictated by : TIM RUTHERFORD MD This examination was interpreted and the report reviewed and electronically signed by: TIM RUTHERFORD MD on Sep 05 2020 3:10PM [facility] DIVISION OF RADIOLOGY * * *Final Report* * * DATE OF EXAM: Sep 05 2020 1:39PM STX 5336 - XR FOOT 3V AP/LAT/OBL LT / PROCEDURE REASON: Pain * * * * Physician Interpretation * * * * CLINICAL INDICATION: Foot pain TECHNIQUE: 3 view radiographic study of the left foot COMPARISON: Radiograph dated August 19, 2020 FINDINGS: Stable postsurgical changes from amputation of the distal phalanges of the second and third toe. No acute fracture or dislocation. Plantar calcaneal enthesophyte. Atherosclerotic calcification of the vasculature. DIVISION OF RADIOLOGY Provider, [facility] [place] - 09/05/2020 * * *Final Report* * * DATE OF EXAM: Sep 05 2020 1:39PM STX 5336 - XR FOOT 3V AP/LAT/OBL LT / PROCEDURE REASON: Pain * * * * Physician Interpretation * * * * CLINICAL INDICATION: Foot pain TECHNIQUE: 3 view radiographic study of the left foot COMPARISON: Radiograph dated August 19, 2020 FINDINGS: Stable postsurgical changes from amputation of the distal phalanges of the second and third toe. No acute fracture or dislocation. Plantar calcaneal enthesophyte. Atherosclerotic calcification of the vasculature. IMPRESSION IMPRESSION: Stable postsurgical changes as described Memorial Designer: ASHUTOSH Transcribe Date/Time: Sep 05 2020 3:09P Dictated by : TIM RUTHERFORD MD This examination was interpreted and the report reviewed and electronically signed by: TIM RUTHERFORD MD on Sep 05 2020 3:10PM EST [facility] Radiology Study observation (narrative) [facility] XR Foot - left AP and Latera l and obliqueOrdered By: Ccf Provider on 09-05-2020 [facility] CNPNon 08-31-2020 CNPN Telephone (AGCARDPOB) MIGUELANGEL MOYA ([id number]) 1950 M Date Time Provider Department 08/31/20 RHONDA BARCLAYPOMehul During your visit today, we recorded the following information about you: Farrukh Arevalo RN 08/31/2020 9:11 AM Signed Samantha from [facility] [place] calls to request clarification for metoprolol tartrate rx written 08/30/20. Is he to take 50mg BID and he may add 25mg if needed to equal 75mg BID? SHALA Mueller RN 09/02/2020 1:54 PM Signed Patient's request for medication is as follows: Signed Prescriptions Disp Refills metoprolol tartrate, short acting, (LOPRESSOR) 50 mg tablet 200 tablet 3 Sig: Take 1 tablet by mouth twice daily. Additional dose of 25 mg may be taken by patient per day for fast heart rate. Authorizing Provider: RHONDA BARCLAY Ordering User: MERRICK GRANT Prescription(s) as above. Please process accordingly. 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 Additional dose of 25 mg may be taken by patient per day for fast heart rate.Disp: 200 tabletRfl: 3 Prescriptions as of 08/31/2020 Sig: METOPROLOL TARTRATE 50 MG TAB* Take 1 tablet by mouth twice * CLOPIDOGREL 75 MG TABLET Take 1 tablet by mouth once d* FUROSEMIDE 80 MG TABLET Take 1 tablet by mouth twice * GLIMEPIRIDE 4 MG TABLET Take 1 tablet by mouth daily * AMLODIPINE 5 MG TABLET Take 1 tablet by mouth once d* PEN NEEDLE, DIABETIC 33 GAUGE* Use with insulin once daily. * PROMETHAZINE 12.5 MG TABLET Take 1 tablet by mouth every * BIOTIN ORAL Take 1 tablet by mouth once d* BASAGLAR KWALEXPEN U-100 INSULI* Inject 56 Units subcutaneousl* NITROGLYCERIN 0.4 MG SUBLINGU* Dissolve 1 tablet under the t* DOXAZOSIN 1 MG TABLET Take 1 mg by mouth daily at b* * BLOOD SUGAR DIAGNOSTIC STRIPS TEST BLOOD SUGAR 2 TIMES PER * * OMEGA-3 FATTY ACIDS-FISH OIL * Take 3000 mg daily. * LANCETS twice daily. Use as instructe* * ASPIRIN 325 MG TABLET,DELAYED* Take 1 tablet by mouth once d* * MULTIVITAMIN TABLET Take one(1) tablet daily. * VITAMIN C 1,000 MG TABLET Take one(1) tablet daily. Problem List As Of Date 08/31/2020 Noted Resolved GENERAL OSTEOARTHROSIS [M15.9] ESOPHAGEAL REFLUX [K21.9] Venous (peripheral) insufficiency [I87.2] Personal history of contact with and (suspected* 08/19/2014 Type 2 diabetes mellitus with diabetic neuropat* Obesity, Class III, BMI 40-49.9 (morbid obesity* Nonspecific abnormal results of liver function * 08/19/2014 Other hyperlipidemia [E78.49] Essential hypertension [I10] Diabetic polyneuropathy (HCC) [E11.42] 01/30/2006 04/24/2018 Coronary artery disease of reno-sparks artery of thai*10/07/2007 Persistent atrial fibrillation (HCC) [I48.19] 10/07/2007 JAMES (obstructive sleep apnea) [G47.33] 08/13/2013 08/19/2014 Memory disturbance [R41.3] 08/13/2013 Hematuria [R31.9] 05/31/2014 08/19/2014 BPH (benign prostatic hyperplasia) [N40.0] 05/31/2014 Chronic anticoagulation [Z79.01] 05/31/2014 08/19/2014 History of smoking [Z87.891] 05/31/2014 08/19/2014 Nephrolithiasis [N20.0] 10/17/2016 04/24/2018 Skin ulcer of toe of right foot, limited to catie*04/24/2018 07/24/2018 Osteomyelitis of second toe of right foot (HCC)*09/17/2019 06/21/2020 Osteomyelitis of third toe of right foot (HCC) *09/17/2019 06/21/2020 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 Additional dose of 25 mg may be taken by patient per day for fast heart rate. Cosign required by RHONDA BARCLAY[[id number]] Medications Disconti (more content not included)... Normal [facility] MIGUELANGEL MOYA ([id number]) 1950 M Date Time Provider Department 08/29/20 REGULO STOVER AGCARDPOB During your visit today, we recorded the following information about you: Merrick Grant RN 08/29/2020 1:15 PM Signed Received a call from spouse to let you know that patient switched from Demadex to Furosemide due to constipation. Furosemide 80 mg orally bid orally. Patient is requesting a refill for the furosemide. Patient's request for medication is as follows: Pending Prescriptions Disp Refills CLOPIDOGREL 75 MG TABLET 90 tablet 3 Sig: Take 1 tablet by mouth once daily. TINA: No FUROSEMIDE 80 MG TABLET 180 tablet 2 Sig: Take 1 tablet by mouth twice daily. METOPROLOL TARTRATE 25 MG TABLET 200 tablet 3 Sig: Take 2 tablets by mouth twice daily. Patient may take additional 25 mg (1/2 tablet) for fast heart rate as needed with twice daily dosing. TINA: No Last OV dated 07/18/[address] Stover, Next OV dated 10/24/[address] Stover. Prescription(s) as above. Please process accordingly. Merrick Grant RN Allergies As of Date: 08/29/2020 Noted Allergy Reaction ALTACE (RAMIPRIL) 12/29/2004 5 - Intolerance BACTRIM (SULFAMETHOXAZOLE-TR IMETH*08/15/2020 4 - Hives DIOVAN (VALSARTAN) 12/29/2004 PROPOFOL 02/10/2020 14 - Other: See Comments Comments: agitation RAMIPRIL 11/05/2007 SEASONAL ALLERGIES 08/04/2012 14 - Other: See Comments [id number] REDUCTASE INHIBIT*06/18/2011 14 - Other: See Comments Comments: Muscle aches Date Reviewed: 08/19/2020 Reviewed by: Tami Will RN - Fully Assessed Reason for Visit: Patient Update [1234] Visit Diagnoses:Sleep apnea, unspecified type [G47.30] Encounter for surgical aftercare following surgery on the circulatory system [Z48.812] Coronary artery disease involving reno-sparks coronary artery of re[place]-sparks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 (HCC) [I25.110] Permanent atrial fibrillation (HCC) [I48.21] Preop testing [Z01.818] Dyspnea on exertion [R06.00] Atrial fibrillation, unspecified type (HCC) [I48.91] Order(s):clopidogrel (PLAVIX) 75 mg tabletTake 1 tablet by mouth once daily.Disp: 90 tabletRfl: 3 furosemide (LASIX) 80 mg tabletTake 1 tablet by mouth twice daily.Disp: 180 tabletRfl: 2 metoprolol tartrate, short acting, (LOPRESSOR) 25 mg tabletTake 2 tablets by mouth twice daily. Patient may take additional 25 mg (1/2 tablet) for fast heart rate as needed with twice daily dosing.Disp: 200 tabletRfl: 3 Prescriptions as of 08/29/2020 Sig: CLOPIDOGREL 75 MG TABLET Take 1 tablet by mouth once d* FUROSEMIDE 80 MG TABLET Take 1 tablet by mouth twice * METOPROLOL TARTRATE 25 MG TAB* Take 2 tablets by mouth twice* AMLODIPINE 5 MG TABLET Take 1 tablet by mouth once d* PEN NEEDLE, DIABETIC 33 GAUGE* Use with insulin once daily. * PROMETHAZINE 12.5 MG TABLET Take 1 tablet by mouth every * X GLIMEPIRIDE 4 MG TABLET Take 1 tablet by mouth daily * BIOTIN ORAL Take 1 tablet by mouth once d* JENNAGLADITHYA LUCIA U-100 INSULI* Inject 56 Units subcutaneousl* NITROGLYCERIN 0.4 MG SUBLINGU* Dissolve 1 tablet under the t* DOXAZOSIN 1 MG TABLET Take 1 mg by mouth daily at b* * BLOOD SUGAR DIAGNOSTIC STRIPS TEST BLOOD SUGAR 2 TIMES PER * * OMEGA-3 FATTY ACIDS-FISH OIL * Take 3000 mg daily. * LANCETS twice daily. Use as instructe* * ASPIRIN 325 MG TABLET,DELAYED* Take 1 tablet by mouth once d* * MULTIVITAMIN TABLET Take one(1) tablet daily. * VITAMIN C 1,000 MG TABLET Take one(1) tablet daily. Problem List As Of Date 08/29/2020 Noted Resolved GENERAL OSTEOARTHROSIS [M15.9] ESOPHAGEAL REFLUX [K21.9] Venous (peripheral) insufficiency [I87.2] Personal history of contact with and (suspected* 08/19/2014 Type 2 diabetes mellitus with diabetic neuropat* Obesity, Class III, BMI 40-49.9 (morbid obesity* Nonspecific abnormal results of liver function * 08/19/2014 Other hyperlipidemia [E78.49] Essential hypertension [I10] Diabetic polyneuropathy (HCC) [E11.42] 01/30/2006 04/24/2018 Coronary artery disease of re[place]-sp[place] artery of thai*10/07/2007 Persistent atrial fibrillation (HCC) [I48.19] 10/07/2007 JAMES (obstructive sleep apnea) [G47.33] 08/13/2013 08/19/2014 Memory disturbance [R41.3] 08/13/2013 Hematuria [R31.9] 05/31/2014 08/19/2014 BPH (benign prostatic hyperplasia) [N40.0] 05/31/2014 Chronic anticoagulation [Z79.01] 05/31/2014 08/19/2014 History of smoking [Z87.891] 05/31/2014 08/19/2014 Nephrolithiasis [N20.0] 10/17/2016 04/24/2018 Skin ulcer of toe of right foot, limited to catie*04/24/2018 07/24/2018 Osteomyelitis of second toe of right foot (HCC)*09/17/2019 06/21/2020 Osteomyelitis of third toe of right foot (HCC) *09/17/2019 06/21/2020 History of partial amputation of toe of right f*09/17/2019 Acute kidney injury (DANIELA) with acute tubular ne*11/06/2019 06/21/2020 Dyspnea on exertion [R06.00] (more content not included)... Normal [facility] CNPJackelyn 2020 PATRICIAN Telephone (AGCARDPOB) MIGUELANGEL MOYA ([id number]) 1950 M Date Time Provider Department 07/22/20 REGULO STOVER During your visit today, we recorded the following information about you: Merrick Grant RN 2020 9:03 AM Signed Received a call from spouse who stated patient is going to have an partial amputation of his 2nd toe under local anesthesia next Saturday. Patient is currently on Plavix (stented 07/01/20). Discussed with spouse the need for patient to remain on plavix but she wanted me to check with you. Merrick Grant RN Allergies As of Date: 2020 Noted Allergy Reaction ALTACE (RAMIPRIL) 12/29/2004 5 - Intolerance DIOVAN (VALSARTAN) 12/29/2004 PROPOFOL 02/10/2020 14 - Other: See Comments Comments: agitation RAMIPRIL 11/05/2007 SEASONAL ALLERGIES 08/04/2012 14 - Other: See Comments [id number] REDUCTASE INHIBIT*06/18/2011 14 - Other: See Comments Comments: Muscle aches Date Reviewed: 07/20/2020 Reviewed by: Danielle Bergman RN - Fully Assessed Reason for Visit: Patient Question [8400] Prescriptions as of 2020 Sig: TORSEMIDE 20 MG TABLET Take 2 tablets by mouth twice* Patient taking differently: Take 40 mg by mouth. Take 2 t* X SULFAMETHOXAZOLE 800 MG-TRIME* Take 2 tablets by mouth twice* Patient not taking: Reported on 07/28/2020 X CEPHALEXIN 500 MG CAPSULE Take 500 mg by mouth four riki* Patient not taking: Reported on 07/28/2020 X GLIMEPIRIDE 4 MG TABLET Take 1 tablet by mouth daily * Patient taking differently: Take 1 tablet by mouth daily * CLOPIDOGREL 75 MG TABLET Take 75 mg by mouth once antoine* BIOTIN ORAL Take 1 tablet by mouth once d* SARAH LUCIA U-100 INSULI* Inject 56 Units subcutaneousl* X PEN NEEDLE, DIABETIC 29 GAUGE* Use one needle for each dose.* NITROGLYCERIN 0.4 MG SUBLINGU* Dissolve 1 tablet under the t* DOXAZOSIN 1 MG TABLET Take 1 mg by mouth daily at b* METOPROLOL TARTRATE 25 MG TAB* Take 2 tablets by mouth twice* X AMLODIPINE 5 MG TABLET Take 5 mg by mouth once daily. * BLOOD SUGAR DIAGNOSTIC STRIPS TEST BLOOD SUGAR 2 TIMES PER * * OMEGA-3 FATTY ACIDS-FISH OIL * Take 3000 mg daily. * LANCETS twice daily. Use as instructe* * ASPIRIN 325 MG TABLET,DELAYED* Take 1 tablet by mouth once d* * MULTIVITAMIN TABLET Take one(1) tablet daily. * VITAMIN C 1,000 MG TABLET Take one(1) tablet daily. Problem List As Of Date 2020 Noted Resolved GENERAL OSTEOARTHROSIS [M15.9] ESOPHAGEAL REFLUX [K21.9] Venous (peripheral) insufficiency [I87.2] Personal history of contact with and (suspected* 08/19/2014 Type 2 diabetes mellitus with diabetic neuropat* Obesity, Class III, BMI 40-49.9 (morbid obesity* Nonspecific abnormal results of liver function * 08/19/2014 Other hyperlipidemia [E78.49] Essential hypertension [I10] Diabetic polyneuropathy (HCC) [E11.42] 01/30/2006 04/24/2018 Coronary artery disease of [place] artery of thai*10/07/2007 Persistent atrial fibrillation (HCC) [I48.19] 10/07/2007 JAMES (obstructive sleep apnea) [G47.33] 08/13/2013 08/19/2014 Memory disturbance [R41.3] 08/13/2013 Hematuria [R31.9] 05/31/2014 08/19/2014 BPH (benign prostatic hyperplasia) [N40.0] 05/31/2014 Chronic anticoagulation [Z79.01] 05/31/2014 08/19/2014 History of smoking [Z87.891] 05/31/2014 08/19/2014 Nephrolithiasis [N20.0] 10/17/2016 04/24/2018 Skin ulcer of toe of right foot, limited to catie*04/24/2018 07/24/2018 Osteomyelitis of second toe of right foot (HCC)*09/17/2019 06/21/2020 Osteomyelitis of third toe of right foot (HCC) *09/17/2019 06/21/2020 History of partial amputation of toe of right f*09/17/2019 Acute kidney injury (DANIELA) with acute tubular ne*11/06/2019 06/21/2020 Dyspnea on exertion [R06.00] 11/06/2019 Statin intolerance [Z78.9] 03/31/2020 Chronic diastolic congestive heart failure (HCC*03/31/2020 Diabetic ulcer of toe of left foot associated w*06/21/2020 Coronary arteriosclerosis after percutaneous tr*07/02/2020 07/02/2020 Encounter Status:Closed by MERRICK GRANT on 08/05/20 Normal [facility] CNPNon 07-11-2020 CNPN Telephone ([facility]) MIGUELANGEL MOYA ([id number]) 1950 M Date Time Provider Department 07/11/20 ERIKA RUIZ (RN) [facility] During your visit today, we recorded the following information about you: Erika Ruiz 07/11/2020 1:02 PM Signed Received referral for Cardiac Rehab. Left message for patient to call back to schedule. Erika Ruiz RN Specialist Cardiopulmonary Rehab, Allergies As of Date: 07/11/2020 Noted Allergy Reaction ALTACE (RAMIPRIL) 12/29/2004 5 - Intolerance DIOVAN (VALSARTAN) 12/29/2004 PROPOFOL 02/10/2020 14 - Other: See Comments Comments: agitation RAMIPRIL 11/05/2007 SEASONAL ALLERGIES 08/04/2012 14 - Other: See Comments [id number] REDUCTASE INHIBIT*06/18/2011 14 - Other: See Comments Comments: Muscle aches Date Reviewed: 07/06/2020 Reviewed by: Anne Marie Mckinnon Ma - Fully Assessed Reason for Visit: Cardiac Rehab [3551] Prescriptions as of 07/11/2020 Sig: SULFAMETHOXAZOLE 800 MG-TRIME* Take 2 tablets by mouth twice* CEPHALEXIN 500 MG CAPSULE Take 500 mg by mouth four riki* GLIMEPIRIDE 4 MG TABLET Take 1 tablet by mouth daily * Patient taking differently: Take 1 tablet by mouth daily * CLOPIDOGREL 75 MG TABLET Take 75 mg by mouth once antoine* FUROSEMIDE 40 MG TABLET Take 40 mg by mouth twice fabio* BIOTIN ORAL Take 1 tablet by mouth once d* PEN NEEDLE, DIABETIC 29 GAUGE* Use one needle for each dose.* BASAGLAR KWIKPEN U-100 INSULI* Inject 56 Units subcutaneousl* NITROGLYCERIN 0.4 MG SUBLINGU* Dissolve 1 tablet under the t* AMLODIPINE 5 MG TABLET Take 5 mg by mouth once daily. DOXAZOSIN 1 MG TABLET Take 1 mg by mouth daily at b* METOPROLOL TARTRATE 25 MG TAB* Take 2 tablets by mouth twice* * BLOOD SUGAR DIAGNOSTIC STRIPS TEST BLOOD SUGAR 2 TIMES PER * * OMEGA-3 FATTY ACIDS-FISH OIL * Take 3000 mg daily. * LANCETS twice daily. Use as instructe* * ASPIRIN 325 MG TABLET,DELAYED* Take 1 tablet by mouth once d* * MULTIVITAMIN TABLET Take one(1) tablet daily. * VITAMIN C 1,000 MG TABLET Take one(1) tablet daily. Problem List As Of Date 07/11/2020 Noted Resolved GENERAL OSTEOARTHROSIS [M15.9] ESOPHAGEAL REFLUX [K21.9] Venous (peripheral) insufficiency [I87.2] Personal history of contact with and (suspected* 08/19/2014 Type 2 diabetes mellitus with diabetic neuropat* Obesity, Class III, BMI 40-49.9 (morbid obesity* Nonspecific abnormal results of liver function * 08/19/2014 Other hyperlipidemia [E78.49] Essential hypertension [I10] Diabetic polyneuropathy (HCC) [E11.42] 01/30/2006 04/24/2018 Coronary artery disease of [place] artery of thai*10/07/2007 Persistent atrial fibrillation (HCC) [I48.19] 10/07/2007 JAMES (obstructive sleep apnea) [G47.33] 08/13/2013 08/19/2014 Memory disturbance [R41.3] 08/13/2013 Hematuria [R31.9] 05/31/2014 08/19/2014 BPH (benign prostatic hyperplasia) [N40.0] 05/31/2014 Chronic anticoagulation [Z79.01] 05/31/2014 08/19/2014 History of smoking [Z87.891] 05/31/2014 08/19/2014 Nephrolithiasis [N20.0] 10/17/2016 04/24/2018 Skin ulcer of toe of right foot, limited to catie*04/24/2018 07/24/2018 Osteomyelitis of second toe of right foot (HCC)*09/17/2019 06/21/2020 Osteomyelitis of third toe of right foot (HCC) *09/17/2019 06/21/2020 History of partial amputation of toe of right f*09/17/2019 Acute kidney injury (DANIELA) with acute tubular ne*11/06/2019 06/21/2020 Dyspnea on exertion [R06.00] 11/06/2019 Statin intolerance [Z78.9] 03/31/2020 Chronic diastolic congestive heart failure (HCC*03/31/2020 Diabetic ulcer of toe of left foot associated w*06/21/2020 Coronary arteriosclerosis after percutaneous tr*07/02/2020 07/02/2020 Encounter Status:Closed by ERIKA RUIZ on 07/11/20 [facility] CNPJackelyn 07-08-2020 CNPN Telephone (AGPOB1) MIGUELANGEL MOYA ([id number]) 1950 M Date Time Provider Department 07/08/20 MIA SESAY AGPOB1 During your visit today, we recorded the following information about you: Nancy [place] Estate Attorney Ppg 07/08/2020 5:05 PM Signed ----- Message from Elisabeth Silva sent at 07/08/2020 1:20 PM EDT ----- Regarding: Orthopedics / Open Foot: RFV Not Found / RFV Not Found in Schd Tool Subject Line Format: Orthopedics / [Provider Name or Open AND Body Part] / [Issue] Patient has been identified by name and Date of (Y/N): Yes Patient: Miguelangel Moya Date of : 1950 Previous Provider Seen: N/a Body Part(s) Identified: Left 2nd and 3rd toes Diagnosis/Reason For Visit: Per , patient needs partial amputation of second left toe, and a tendon release of the 3rd toe, but was told that patient needed surgery to be done at a Level 1 Trauma center. Patient was seeing Dr. Ceron at [facility] for this issue, but he could only do the surgery at [facility], and patient would prefer to come to [place] instead of [facility] to have this procedure done. Reason for the call/escalation: RFV Not Found If reason for call/escalation is discharge from ED/ER or Hospital, which facility was the patient seen at: n/a Was an appointment scheduled (Y/N): No Person calling if other than patient: Jessica Albert Return call to if other than patient: Jessica Best contact number: [phone] Elisabeth Silva July 08, 2020 1:21 PM Nancy Simi Estate Attorney Ppg 07/08/2020 5:05 PM Signed Information sent to Dr Sesay for review Nancy [place] [employer] Attorney Ppg [place] [employer] Ppg 07/13/2020 2:49 PM Signed Appointment was [facility] with [facility] Allergies As of Date: 07/08/2020 Noted Allergy Reaction ALTACE (RAMIPRIL) 12/29/2004 5 - Intolerance DIOVAN (VALSARTAN) 12/29/2004 PROPOFOL 02/10/2020 14 - Other: See Comments Comments: agitation RAMIPRIL 11/05/2007 SEASONAL ALLERGIES 08/04/2012 14 - Other: See Comments [id number] REDUCTASE INHIBIT*06/18/2011 14 - Other: See Comments Comments: Muscle aches Date Reviewed: 07/06/2020 Reviewed by: Anne Marie Mckinnon Ma - Fully Assessed Reason for Visit: Appointment [186] Prescriptions as of 07/08/2020 Sig: SULFAMETHOXAZOLE 800 MG-TRIME* Take 2 tablets by mouth twice* CEPHALEXIN 500 MG CAPSULE Take 500 mg by mouth four riki* GLIMEPIRIDE 4 MG TABLET Take 1 tablet by mouth daily * Patient taking differently: Take 1 tablet by mouth daily * CLOPIDOGREL 75 MG TABLET Take 75 mg by mouth once antoine* FUROSEMIDE 40 MG TABLET Take 40 mg by mouth twice fabio* BIOTIN ORAL Take 1 tablet by mouth once d* PEN NEEDLE, DIABETIC 29 GAUGE* Use one needle for each dose.* BASAGLAR KWIKPEN U-100 INSULI* Inject 56 Units subcutaneousl* NITROGLYCERIN 0.4 MG SUBLINGU* Dissolve 1 tablet under the t* AMLODIPINE 5 MG TABLET Take 5 mg by mouth once daily. DOXAZOSIN 1 MG TABLET Take 1 mg by mouth daily at b* METOPROLOL TARTRATE 25 MG TAB* Take 2 tablets by mouth twice* * BLOOD SUGAR DIAGNOSTIC STRIPS TEST BLOOD SUGAR 2 TIMES PER * * OMEGA-3 FATTY ACIDS-FISH OIL * Take 3000 mg daily. * LANCETS twice daily. Use as instructe* * ASPIRIN 325 MG TABLET,DELAYED* Take 1 tablet by mouth once d* * MULTIVITAMIN TABLET Take one(1) tablet daily. * VITAMIN C 1,000 MG TABLET Take one(1) tablet daily. Problem List As Of Date 07/08/2020 Noted Resolved GENERAL OSTEOARTHROSIS [M15.9] ESOPHAGEAL REFLUX [K21.9] Venous (peripheral) insufficiency [I87.2] Personal history of contact with and (suspected* 08/19/2014 Type 2 diabetes mellitus with diabetic neuropat* Obesity, Class III, BMI 40-49.9 (morbid obesity* Nonspecific abnormal results of liver function * 08/19/2014 Other hyperlipidemia [E78.49] Essential hypertension [I10] Diabetic polyneuropathy (HCC) [E11.42] 01/30/2006 04/24/2018 Coronary artery disease of [place] artery of thai*10/07/2007 Persistent atrial fibrillation (HCC) [I48.19] 10/07/2007 JAMES (obstructive sleep apnea) [G47.33] 08/13/2013 08/19/2014 Memory disturbance [R41.3] 08/13/2013 Hematuria [R31.9] 05/31/2014 08/19/2014 BPH (benign prostatic hyperplasia) [N40.0] 05/31/2014 Chronic anticoagulation [Z79.01] 05/31/2014 08/19/2014 History of smoking [Z87.891] 05/31/2014 08/19/2014 Nephrolithiasis [N20.0] 10/17/2016 04/24/2018 Skin ulcer of toe of right foot, limited to catie*04/24/2018 07/24/2018 Osteomyelitis of second toe of right foot (HCC)*09/17/2019 06/21/2020 Osteomyelitis of third toe of right foot (HCC) *09/17/2019 06/21/2020 History of partial amputation of toe of right f*09/17/2019 Acute kidney injury (DANIELA) with acute tubular ne*11/06/2019 06/21/2020 Dyspnea on exertion [R06.00] 11/06/2019 Statin intolerance [Z78.9] 03/31/2020 Chronic diastolic congestive heart failure (HCC*03/31/19 (more content not included)... Normal [facility] CNDSon 07-02-2020 [facility] HNO ID: [id number] Author: Shruti Jamison Service: Interventional Cardiology Author Type: Physician Type: Discharge Summary Filed: 07/02/2020 8:53 AM Note Text: DISCHARGE NOTE (Patient Admitted Less than 48 Hours) SERVICE DATE: 07/02/2020 SERVICE TIME: 8:52 ADMISSION DATE: 07/01/2020 DISCHARGE DISPOSITION: Home/Self Care Discharge Physical Exam: VITAL SIGNS: BP 92/61 Pulse 89 Temp 36.4 ?C (97.5 ?F) (Temporal) Resp 18 Ht 170.2 cm (5' 7) Wt 134.7 kg (297 lb) SpO2 96% BMI 46.52 kg/m? GENERAL: Alert, no distress, cooperative NECK: No jugulovenous distention, No carotid bruits, Carotid pulse normal contour, Supple LUNGS: Lungs clear to auscultation, Good diaphragmatic excursion DIET: Regular ACTIVITY AFTER DISCHARGE: Resume pre-hospital activity FOLLOW UP CARE REQUIRED: Dr Stover DISCHARGE MEDICATIONS (ONLY ACTIVATE WHEN READY TO DISCHARGE): Current Discharge Medication List CONTINUE these medications which have NOT CHANGED cephALEXin (KEFLEX) 500 mg Take 500 mg by mouth four times daily. glimepiride (AMARYL) 4 mg tablet Take 1 tablet by mouth daily with breakfast AND 0.5 tablets daily before dinner. Associated Diagnoses:Type 2 diabetes mellitus with diabetic neuropathy, with long-term current use of insulin (HCC) clopidogrel (PLAVIX) 75 mg Take 75 mg by mouth once daily. Associated Diagnoses:Sleep apnea, unspecified type; Encounter for surgical aftercare following surgery on the circulatory system; Coronary artery disease involving [place] coronary artery of [place]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 ([facility]); Permanent atrial fibrillation ([facility]); Preop testing; Dyspnea on exertion furosemide (LASIX) 40 mg Take 40 mg by mouth twice daily. BIOTIN ORAL 1 tablet Take 1 tablet by mouth once daily. BASAGLAR KWIKPEN U-100 INSULIN 56 Units Inject 56 Units subcutaneously daily at bedtime. Use as directed. 20 pens/3 months. Qty: 20 Pen Refills: 3 Associated Diagnoses:Type 2 diabetes mellitus with diabetic neuropathy, with long-term current use of insulin ([facility]) amLODIPine (NORVASC) 5 mg Take 5 mg by mouth once daily. Associated Diagnoses:Type 2 diabetes mellitus with diabetic neuropathy, with long-term current use of insulin ([facility]) doxazosin (CARDURA) 1 mg Take 1 mg by mouth daily at bedtime. Associated Diagnoses:Type 2 diabetes mellitus with diabetic neuropathy, with long-term current use of insulin ([facility]) metoprolol tartrate (short acting) (LOPRESSOR) 50 mg Take 50 mg by mouth twice daily. Associated Diagnoses:Atrial fibrillation, unspecified type ([facility]) Fish Oil-Jackson-3 Fatty Acids (FISH OIL OMEGA 3-6-9) 300-1,000 mg CpDR Take 3000 mg daily. Refills: 0 Associated Diagnoses:Other and unspecified hyperlipidemia aspirin, enteric coated (ASPIRIN, ENTERIC COATED) 325 mg Take 325 mg by mouth once daily. Refills: 0 Associated Diagnoses:CAD (coronary artery disease) MULTIVITAMIN TAB Take one(1) tablet daily. Refills: 0 VITAMIN C 1,000 MG TAB Take one(1) tablet daily. Refills: 0 sulfamethoxazole-tri methoprim (BACTRIM DS,SEPTRA DS) 2 tablets Take 2 tablets by mouth twice daily. Insulin Spruce, Disposable, (BD INSULIN PEN NEEDLE UF) 29 gauge x 1/2 ndle Use one needle for each dose. One/day. Dx: Type II diabetes mellitus - ICD9: 250.00, ICD10: E11.9. On insulin daily. Qty: 100 Each Refills: 3 Associated Diagnoses:Type 2 diabetes mellitus with diabetic neuropathy, with long-term current use of insulin ([facility]) nitroglycerin sublingual (NITROQUICK) 0.4 mg Dissolve 0.4 mg under the tongue every 5 minutes as needed for Chest Pain. IF NO PAIN RELIEF WITH 2ND DOSE, CALL 911 Qty: 25 tablet Refills: 2 Associated Diagnoses:Coronary artery disease involving [place] heart without angina pectoris, unspecified vessel or lesion type blood sugar diagnostic (ONE TOUCH ULTRA TEST) test strip TEST BLOOD SUGAR 2 TIMES PER DAY. DX: 250.00. INSULIN DEP: NO. Qty: 100 Strip Refills: 11 Associated Diagnoses:Diabetes mellitus type 2, insulin dependent (HCC) Lancets (ONE TOUCH ULTRASOFT LANCETS) Misc lancets twice daily. Use as instructed ( may dispense Deuca brand) Qty: 100 Each Refills: 11 Associated Diagnoses:Diabetes mellitus type 2, insulin dependent (HCC) FINAL DIAGNOSIS: PTCA LAD and Left main with DILIA SIGNATURE: Shruti Jamison MD PATIENT NAME: Miguelangel Moya DATE: July 02, 2020 TIME: 8:51 AM Normal [facility] BRIEF OP NOTon 07-01-2020 BRIEF OP NOT HNO ID: [id number] Author: Regulo Stover Service: Interventional Cardiology Author Type: Physician Type: Brief Op Note Filed: 07/01/2020 2:12 PM Note Text: CARDIAC CATHETERIZATION REPORT PATIENT NAME: Miguelangel Moya SERVICE DATE: 07/01/2020 SERVICE TIME: 2:03 PM Bottling Line Attendant: Dr Son Amaro Attending: Regulo Stover / Beto Porter RECOMMENDATIONS: DAPT for one year, continued medical therapy and risk factor modification Pre-Procedure Diagnosis: 69-year-old gentleman with multiple medical problems known coronary artery disease referred for high risk PCI of the proximal to mid LAD and left main coronary arteries. Post- Procedure Diagnosis: Successful angioplasty and drug-eluting stent placement from the proximal to mid LAD as well as the ostial left main Procedure: Percutaneous coronary intervention of the proximal to mid LAD, ostial left main with intravascular ultrasound guidance Access: Right Radial Artery Under Local anesthesia the Right Radial Artery was entered by Modified Seldinger's technique using a micro puncture needle. A 6F sheath was introduced into the Right Radial Artery. An exchange wire was advanced into the ascending aorta. Sheath was removed and a power backup 6.5 [place] guiding catheter was seated into the left main coronary artery. Patient was administered heparin for an ACT greater than 250 seconds. He has been maintained on chronic Plavix therapy. A [place] Blue wire was advanced into the distal LAD. Initial balloon inflations were completed in the mid LAD using a 3.0 x 15 mm NC Emerge balloon. Next, intravascular ultrasound images were obtained of the LAD and left main coronary arteries for lesion complexity and sizing. A [place] 3.0 x 15 mm cutting balloon was deployed in the mid LAD. Inflations were completed to 16 nishant. A 3.0 x 48 mm Synergy stent was deployed from the proximal LAD to the mid LAD. The stent was postdilated using a 3.5 x 20 mm NC Emerge distally inflated to 18 nishant. The proximal segment of the stent was postdilated using a 4.0 x 15 mm NC Emerge balloon. Inflations were completed to 22 nishant. A 5.0 x 12 mm Synergy stent was positioned and deployed in the ostium of the left main coronary artery. It was postdilated using a 6.0 x 12 mm NC balloon. Inflations were completed to 12 nishant. All catheters and wires were removed intact. The sheath was removed and hemostatsis was established using TR band. There was no bleeding at the end of the procedure. The pt was returned to the recovery room in a stable condition. Percutaneous coronary intervention Left Main: The ostial and proximal left [...] and distal LAD have mild diffuse disease. Complications: None SIGNATURE: Regulo Stover MD DATE: July 01, 2020 TIME: 2:03 PM Normal [facility] HISTORY PHYSICALon HISTORY PHYSICAL HNO ID: [id number] Author: Regulo Stover Service: Interventional Cardiology Author Type: Physician Type: HANDP Filed: 07/01/2020 11:42 AM Note Text: UPDATED HANDP PRE-CARDIAC CATHETERIZATION SERVICE DATE: 07/01/2020 SERVICE TIME: 09:00 PHYSICAL EXAM MUST BE COMPLETED ON ADMISSION History of present illness Is a 69-year-old gentleman with extensive medical problems including morbid obesity, diabetes which is insulin requiring and poorly controlled, chronic diastolic heart failure, chronic kidney disease who is referred for evaluation of coronary artery disease. Patient was initially seen by Dr. Gardner due to left main and lady stenosis found on prior catheterization. Patient was reviewed in the heart team meeting. He was felt to be at high risk for coronary bypass grafting. He was referred for possible high risk coronary intervention. He had undergone extensive out patient testing and was scheduled for his initial procedure. Unfortunately, he developed lower extremity wound infection which delayed his planned percutaneous core and intervention. He is here today for high risk percutaneous core and intervention. Physical exam Vital signs reviewed General: Morbidly obese gentleman sitting appears comfortable mildly dyspneic with speech no apparent distress. HEENT: There is no corneal arcus senilis or periorbital xanthelasma. Carotid upstrokes are brisk bilaterally. No appreciable JVD. Pulmonary: Lungs are clear no rales, wheezes, rhonchi Cardiovascular: Normal S1-S2 with regular rate and rhythm. No murmurs, rubs, or gallops appreciated. Abdomen: Markedly obese nontender, nondistended with normal bowel sounds. Extremities: Radial artery pulses are 1-2+ and symmetric bilaterally. Femoral pulses are difficult to palpate due to large pannus. Lower extremity dorsalis pedis and posterior tibial pulses are palpable but diminished. PAST MEDICAL HISTORY Diagnosis Date - CAD (coronary artery disease) 10/07/2007 ? 70% stenosis circumflex 2nd marginal branch. Drug eluting stent done. - Esophageal reflux ? - Generalized osteoarthrosis, unspecified site ? - Nephrolithiasis 10/17/2016 - NEUROPATHY IN DIABETES 01/30/2006 - Nonspecific abnormal results of liver function study ? - Obesity, unspecified ? - JAMES (obstructive sleep apnea) 08/13/2013 ? declined tx - Osteomyelitis of second toe of right foot (HCC) 09/17/2019 - Osteomyelitis of third toe of right foot (HCC) 09/17/2019 - Other and unspecified hyperlipidemia ? - Paroxysmal atrial fibrillation (HCC) 10/07/2007 - Personal history of contact with and (suspected) exposure to asbestos ? - Type II or unspecified type diabetes mellitus without mention of complication, not stated as uncontrolled ? - Unspecified essential hypertension ? - Unspecified venous (peripheral) insufficiency ? ? ? PAST SURGICAL HISTORY[]Expand by Default PAST SURGICAL HISTORY Procedure Laterality Date - AMPUTATION TOE,I-P JT Right 09/17/2019 ? 2nd, 3rd toes, right foot - CYSTOSCOPY ? 06/23/2014 - LEFT HEART CATH,PERCUTANEOUS ? 10/07/2007 ? Cardiac cath, L heart - LEFT HEART CATH,PERCUTANEOUS ? 12/29/2019 ? [facility] - REMOVAL ADENOIDS,PRIMARY,<12 Y/O ? 1960 ? Adenoidectomy - REMOVAL OF TONSILS,<12 Y/O ? 1957 ? Tonsillectomy - TRANSCATH STENT INIT VESSEL,PERCUT ? ? Transcath stent init vessel percut, DILIA - VASECTOMY ? 1977 ? ? SOCIAL HISTORY SOCIAL HISTORY[]Expand by Default Social History ? Tobacco Use - Smoking status: Former Smoker ? ? Years: 30.00 - Smokeless tobacco: Current User ? ? Types: Chew Substance Use Topics - Alcohol use: Yes ? ? Comment: Rare - Drug use: Not on file ? ? FAMILY HISTORY FAMILY HISTORY Problem Relation Age of Onset - Heart Father ? - Hypertension Mother ? - Stroke Mother ? - Lipids Mother ? - Thyroid Sister ? - Cancer Brother ? ? bladder and kidney ? ? ALLERGIES: ALLERGIES ALLERGIES Allergen Reactions - Altace [Ramipril] Intolerance - Diovan [Valsartan] ? - Propofol Other: See Comments ? ? agitation - Ramipril ? - Seasonal Allergies Other: See Comments - Zllslya-Akz-Glm Red* Other: See Comments ? ? Muscle aches ? No current facility-administere d medications on file prior to encounter. Current Outpatient Medications on File Prior to Encounter Medication Sig - glimepiride (AMARYL) 4 mg tablet Take 1 tablet by mouth daily with breakfast AND 0.5 tablets daily before dinner. (Patient taking differently: Take 1 tablet by mouth daily with breakfast AND 1 tablet daily before dinner.) - clopidogrel (PLAVIX) 75 mg tablet Take 75 mg by mouth once daily. - furosemide (LASIX) 40 mg tablet Take 40 mg by mouth twice daily. - BIOTIN ORAL Take 1 tablet by mouth once daily. - insulin glargine (BASAGLAR KWIKPEN U-100 INSULIN) 100 unit/mL (3 mL) inpn Inject 56 Units subcutaneously daily at bedtime. Use as directed. 20 pens/3 (more content not included)... Normal [facility] CNPNon 06-28-2020 [facility] Telephone (AGCARDPOB) MIGUELANGEL MOYA ([id number]) 1950 M Date Time Provider Department 06/28/20 REGULO STOVER AGCARDPOB During your visit today, we recorded the following information about you: Merrick Grant RN 06/28/2020 10:17 AM Signed Received a call from spouse who would like to speak to you regarding Miguelangel's cardiac situation and his need for foot surgery. Spouse not available until after 1 pm. SHALA Gilbert LPN 06/29/2020 9:43 AM Signed Jessica called in and states she missed the call from . She states she can be reached at [phone]. Demi Santa LPN Allergies As of Date: 06/28/2020 Noted Allergy Reaction ALTACE (RAMIPRIL) 12/29/2004 5 - Intolerance DIOVAN (VALSARTAN) 12/29/2004 PROPOFOL 02/10/2020 14 - Other: See Comments Comments: agitation RAMIPRIL 11/05/2007 SEASONAL ALLERGIES 08/04/2012 14 - Other: See Comments NEDIMFU-OIT-IQO REDUCTASE INHIBIT*06/18/2011 14 - Other: See Comments Comments: Muscle aches Date Reviewed: 06/21/2020 Reviewed by: Roxanna Dennis LPN - Fully Assessed Reason for Visit: Patient Question [4087] Prescriptions as of 06/28/2020 Sig: SULFAMETHOXAZOLE 800 MG-TRIME* Take 2 tablets by mouth twice* CEPHALEXIN 500 MG CAPSULE Take 500 mg by mouth four riki* GLIMEPIRIDE 4 MG TABLET Take 1 tablet by mouth daily * Patient taking differently: Take 1 tablet by mouth daily * CLOPIDOGREL 75 MG TABLET Take 75 mg by mouth once antoine* FUROSEMIDE 40 MG TABLET Take 40 mg by mouth twice fabio* BIOTIN ORAL Take 1 tablet by mouth once d* PEN NEEDLE, DIABETIC 29 GAUGE* Use one needle for each dose.* BASAGLAR KWIKPEN U-100 INSULI* Inject 56 Units subcutaneousl* NITROGLYCERIN 0.4 MG SUBLINGU* Dissolve 1 tablet under the t* AMLODIPINE 5 MG TABLET Take 5 mg by mouth once daily. DOXAZOSIN 1 MG TABLET Take 1 mg by mouth daily at b* METOPROLOL TARTRATE 25 MG TAB* Take 2 tablets by mouth twice* * BLOOD SUGAR DIAGNOSTIC STRIPS TEST BLOOD SUGAR 2 TIMES PER * * OMEGA-3 FATTY ACIDS-FISH OIL * Take 3000 mg daily. * LANCETS twice daily. Use as instructe* * ASPIRIN 325 MG TABLET,DELAYED* Take 1 tablet by mouth once d* * MULTIVITAMIN TABLET Take one(1) tablet daily. * VITAMIN C 1,000 MG TABLET Take one(1) tablet daily. Problem List As Of Date 06/28/2020 Noted Resolved GENERAL OSTEOARTHROSIS [M15.9] ESOPHAGEAL REFLUX [K21.9] Venous (peripheral) insufficiency [I87.2] Personal history of contact with and (suspected* 08/19/2014 Type 2 diabetes mellitus with diabetic neuropat* Obesity, Class III, BMI 40-49.9 (morbid obesity* Nonspecific abnormal results of liver function * 08/19/2014 Other hyperlipidemia [E78.49] Essential hypertension [I10] Diabetic polyneuropathy (HCC) [E11.42] 01/30/2006 04/24/2018 Coronary artery disease of [place] artery of thai*10/07/2007 Persistent atrial fibrillation (HCC) [I48.19] 10/07/2007 JAMES (obstructive sleep apnea) [G47.33] 08/13/2013 08/19/2014 Memory disturbance [R41.3] 08/13/2013 Hematuria [R31.9] 05/31/2014 08/19/2014 BPH (benign prostatic hyperplasia) [N40.0] 05/31/2014 Chronic anticoagulation [Z79.01] 05/31/2014 08/19/2014 History of smoking [Z87.891] 05/31/2014 08/19/2014 Nephrolithiasis [N20.0] 10/17/2016 04/24/2018 Skin ulcer of toe of right foot, limited to catie*04/24/2018 07/24/2018 Osteomyelitis of second toe of right foot (HCC)*09/17/2019 06/21/2020 Osteomyelitis of third toe of right foot (HCC) *09/17/2019 06/21/2020 History of partial amputation of toe of right f*09/17/2019 Acute kidney injury (DANIELA) with acute tubular ne*11/06/2019 06/21/2020 Dyspnea on exertion [R06.00] 11/06/2019 Statin intolerance [Z78.9] 03/31/2020 Chronic diastolic congestive heart failure (HCC*03/31/2020 Diabetic ulcer of toe of left foot associated w*06/21/2020 Encounter Status:Closed by MERRICK GRANT RN on 06/28/20 [facility] 06-23-2020 CNPN Telephone (AGCARDPOB) MIGUELANGEL MOYA ([id number]) 1950 M Date Time Provider Department 06/23/20 REGULO STOVER AGCSUSU During your visit today, we recorded the following information about you: Farrukh Arevalo RN 06/23/2020 11:58 AM Signed Clearance form received from Dr Chandler (ortho). Form placed in Dr. Stover's door box. Farrukh Arevalo RN Allergies As of Date: 06/23/2020 Noted Allergy Reaction ALTACE (RAMIPRIL) 12/29/2004 5 - Intolerance DIOVAN (VALSARTAN) 12/29/2004 PROPOFOL 02/10/2020 14 - Other: See Comments Comments: agitation RAMIPRIL 11/05/2007 SEASONAL ALLERGIES 08/04/2012 14 - Other: See Comments [id number] REDUCTASE INHIBIT*06/18/2011 14 - Other: See Comments Comments: Muscle aches Date Reviewed: 06/21/2020 Reviewed by: Roxanna Dennis LPN - Fully Assessed Reason for Visit: Cardiac Clearance [4105] Prescriptions as of 06/23/2020 Sig: SULFAMETHOXAZOLE 800 MG-TRIME* Take 2 tablets by mouth twice* CEPHALEXIN 500 MG CAPSULE Take 500 mg by mouth four riki* GLIMEPIRIDE 4 MG TABLET Take 1 tablet by mouth daily * Patient taking differently: Take 1 tablet by mouth daily * CLOPIDOGREL 75 MG TABLET Take 75 mg by mouth once antoine* FUROSEMIDE 40 MG TABLET Take 40 mg by mouth twice fabio* BIOTIN ORAL Take 1 tablet by mouth once d* PEN NEEDLE, DIABETIC 29 GAUGE* Use one needle for each dose.* BASAGLAR KWIKPEN U-100 INSULI* Inject 56 Units subcutaneousl* NITROGLYCERIN 0.4 MG SUBLINGU* Dissolve 1 tablet under the t* AMLODIPINE 5 MG TABLET Take 5 mg by mouth once daily. DOXAZOSIN 1 MG TABLET Take 1 mg by mouth daily at b* METOPROLOL TARTRATE 25 MG TAB* Take 2 tablets by mouth twice* * BLOOD SUGAR DIAGNOSTIC STRIPS TEST BLOOD SUGAR 2 TIMES PER * * OMEGA-3 FATTY ACIDS-FISH OIL * Take 3000 mg daily. * LANCETS twice daily. Use as instructe* * ASPIRIN 325 MG TABLET,DELAYED* Take 1 tablet by mouth once d* * MULTIVITAMIN TABLET Take one(1) tablet daily. * VITAMIN C 1,000 MG TABLET Take one(1) tablet daily. Problem List As Of Date 06/23/2020 Noted Resolved GENERAL OSTEOARTHROSIS [M15.9] ESOPHAGEAL REFLUX [K21.9] Venous (peripheral) insufficiency [I87.2] Personal history of contact with and (suspected* 08/19/2014 Type 2 diabetes mellitus with diabetic neuropat* Obesity, Class III, BMI 40-49.9 (morbid obesity* Nonspecific abnormal results of liver function * 08/19/2014 Other hyperlipidemia [E78.49] Essential hypertension [I10] Diabetic polyneuropathy (HCC) [E11.42] 01/30/2006 04/24/2018 Coronary artery disease of [place] artery of thai*10/07/2007 Persistent atrial fibrillation (HCC) [I48.19] 10/07/2007 JAMES (obstructive sleep apnea) [G47.33] 08/13/2013 08/19/2014 Memory disturbance [R41.3] 08/13/2013 Hematuria [R31.9] 05/31/2014 08/19/2014 BPH (benign prostatic hyperplasia) [N40.0] 05/31/2014 Chronic anticoagulation [Z79.01] 05/31/2014 08/19/2014 History of smoking [Z87.891] 05/31/2014 08/19/2014 Nephrolithiasis [N20.0] 10/17/2016 04/24/2018 Skin ulcer of toe of right foot, limited to catie*04/24/2018 07/24/2018 Osteomyelitis of second toe of right foot (HCC)*09/17/2019 06/21/2020 Osteomyelitis of third toe of right foot (HCC) *09/17/2019 06/21/2020 History of partial amputation of toe of right f*09/17/2019 Acute kidney injury (DANIELA) with acute tubular ne*11/06/2019 06/21/2020 Dyspnea on exertion [R06.00] 11/06/2019 Statin intolerance [Z78.9] 03/31/2020 Chronic diastolic congestive heart failure (HCC*03/31/2020 Diabetic ulcer of toe of left foot associated w*06/21/2020 Encounter Status:Closed by FARRUKH AREVALO on 06/23/20 Normal [facility] XR Chest PA and Lateralon IMPRESSION: No acute radiographic abnormality. Cardiomegaly Memorial Designer: ASHUTOSH Transcribe Date/Time: Jun 21 2020 1:05P Dictated by : HUMZA PEREZ MD This examination was interpreted and the report reviewed and electronically signed by: HUMZA PEREZ MD on Jun 21 2020 1:08PM [facility] DIVISION OF RADIOLOGY * * *Final Report* * * DATE OF EXAM: Jun 21 2020 1:00PM WOX [id number] - XR CHEST 2V FRONTAL/LAT / PROCEDURE REASON: Chronic diastolic congestive heart failure (HCC) * * * * Physician Interpretation * * * * EXAMINATION: CHEST RADIOGRAPH (2 VIEW FRONTAL & LATERAL) CLINICAL HISTORY: Chronic diastolic congestive heart failure (HCC) MQ: XC2_6 EXAM DATE/TIME: 06/21/2020 1:00 PM COMPARISON: CT chest dated 02/22/2020 RESULT: Lines, tubes, and devices: None. Lungs and pleura: No consolidation. No lung mass. No pleural effusion. No pneumothorax. Cardiomediastinal silhouette: Mildly enlarged cardiomediastinal silhouette. Bones and soft tissues: Multilevel degenerative change and osteophytosis. Compression fracture of the superior endplate of L2 is unchanged. Mild chronic compression of T12 as well Dextroscoliosis in the mid thoracic region. DIVISION OF RADIOLOGY Provider, [facility] [place] - 06/21/2020 * * *Final Report* * * DATE OF EXAM: Jun 21 2020 1:00PM WOX [id number] - XR CHEST 2V FRONTAL/LAT / PROCEDURE REASON: Chronic diastolic congestive heart failure (HCC) * * * * Physician Interpretation * * * * EXAMINATION: CHEST RADIOGRAPH (2 VIEW FRONTAL & LATERAL) CLINICAL HISTORY: Chronic diastolic congestive heart failure (HCC) MQ: XC2_6 EXAM DATE/TIME: 06/21/2020 1:00 PM COMPARISON: CT chest dated 02/22/2020 RESULT: Lines, tubes, and devices: None. Lungs and pleura: No consolidation. No lung mass. No pleural effusion. No pneumothorax. Cardiomediastinal silhouette: Mildly enlarged cardiomediastinal silhouette. Bones and soft tissues: Multilevel degenerative change and osteophytosis. Compression fracture of the superior endplate of L2 is unchanged. Mild chronic compression of T12 as well Dextroscoliosis in the mid thoracic region. IMPRESSION IMPRESSION: No acute radiographic abnormality. Cardiomegaly Memorial Designer: ASHUTOSH Transcribe Date/Time: Jun 21 2020 1:05P Dictated by : HUMZA PEREZ MD This examination was interpreted and the report reviewed and electronically signed by: HUMZA PEREZ MD on Jun 21 2020 1:08PM [facility] Radiology Study observation (narrative) Jane valdez [facility] XR Chest PA and LateralOrder ed By: [facility] Provider on 06-21-2020 [facility] Jennifer 05-30-2020 CNPN Telephone (AGCARDPOB) MIGUELANGEL MOYA ([id number]) 1950 M Date Time Provider Department 05/30/20 REGULO STOVER AGCARDPOB During your visit today, we recorded the following information about you: Merrick Grant RN 05/30/2020 10:32 AM Signed Received a call from spouse who wanted to provide an update regarding the orthopedic infection on Miguelangel. Pt saw Orthopedic MD today and remains on two antibiotics, no osteomyelitis noted per MD. Remains on two antibiotics and will follow up with Orthopedic MD in 7 days. SHALA Gilbert RN 06/06/2020 8:59 AM Signed Spoke with spouse, who stated that patient is afebrile, no toe drainage. Pt will be off antibiotics on 06/08/20 and would like you to consider rescheduling him for the cardiac catheterization with intervention. Merrick Grant RN Allergies As of Date: 05/30/2020 Noted Allergy Reaction ALTACE (RAMIPRIL) 12/29/2004 5 - Intolerance DIOVAN (VALSARTAN) 12/29/2004 PROPOFOL 02/10/2020 14 - Other: See Comments Comments: agitation RAMIPRIL 11/05/2007 SEASONAL ALLERGIES 08/04/2012 14 - Other: See Comments [id number] REDUCTASE INHIBIT*06/18/2011 14 - Other: See Comments Comments: Muscle aches Date Reviewed: 03/31/2020 Reviewed by: Regulo Stover - Fully Assessed Reason for Visit: Patient Update [1234] Prescriptions as of 05/30/2020 Sig: SODIUM CHLORIDE 0.9 % IV BOLUS Pre- CT hydration: 200 ml hr * GLIMEPIRIDE 4 MG TABLET Take 1 tablet by mouth daily * Patient taking differently: Take 1 tablet by mouth daily * CLOPIDOGREL 75 MG TABLET Take 75 mg by mouth once antoine* FUROSEMIDE 40 MG TABLET Take 40 mg by mouth twice fabio* BIOTIN ORAL Take 1 tablet by mouth once d* PEN NEEDLE, DIABETIC 29 GAUGE* Use one needle for each dose.* BASAGLAR KWIKPEN U-100 INSULI* Inject 56 Units subcutaneousl* NITROGLYCERIN 0.4 MG SUBLINGU* Dissolve 1 tablet under the t* AMLODIPINE 5 MG TABLET Take 5 mg by mouth once daily. DOXAZOSIN 1 MG TABLET Take 1 mg by mouth daily at b* METOPROLOL TARTRATE 25 MG TAB* Take 2 tablets by mouth twice* * BLOOD SUGAR DIAGNOSTIC STRIPS TEST BLOOD SUGAR 2 TIMES PER * * OMEGA-3 FATTY ACIDS-FISH OIL * Take 3000 mg daily. * LANCETS twice daily. Use as instructe* * ASPIRIN 325 MG TABLET,DELAYED* Take 1 tablet by mouth once d* * MULTIVITAMIN TABLET Take one(1) tablet daily. * VITAMIN C 1,000 MG TABLET Take one(1) tablet daily. Problem List As Of Date 05/30/2020 Noted Resolved GENERAL OSTEOARTHROSIS [M15.9] ESOPHAGEAL REFLUX [K21.9] Venous (peripheral) insufficiency [I87.2] Personal history of contact with and (suspected* 08/19/2014 Type 2 diabetes mellitus with diabetic neuropat* Obesity, Class III, BMI 40-49.9 (morbid obesity* Nonspecific abnormal results of liver function * 08/19/2014 Other hyperlipidemia [E78.49] Essential hypertension [I10] Diabetic polyneuropathy (HCC) [E11.42] 01/30/2006 04/24/2018 Coronary artery disease of [place] artery of thai*10/07/2007 Persistent atrial fibrillation (HCC) [I48.19] 10/07/2007 JAMES (obstructive sleep apnea) [G47.33] 08/13/2013 08/19/2014 Memory disturbance [R41.3] 08/13/2013 Hematuria [R31.9] 05/31/2014 08/19/2014 BPH (benign prostatic hyperplasia) [N40.0] 05/31/2014 Chronic anticoagulation [Z79.01] 05/31/2014 08/19/2014 History of smoking [Z87.891] 05/31/2014 08/19/2014 Nephrolithiasis [N20.0] 10/17/2016 04/24/2018 Skin ulcer of toe of right foot, limited to catie*04/24/2018 07/24/2018 Osteomyelitis of second toe of right foot (HCC)*09/17/2019 Osteomyelitis of third toe of right foot (HCC) *09/17/2019 History of partial amputation of toe of right f*09/17/2019 Acute kidney injury (DANIELA) with acute tubular ne*11/06/2019 Dyspnea on exertion [R06.00] 11/06/2019 Statin intolerance [Z78.9] 03/31/2020 Chronic diastolic congestive heart failure (HCC*03/31/2020 Encounter Status:Closed by MERRICK GRANT RN on 06/15/20 [facility] CNPNon [facility]-06-2020 [facility] MIGUELANGEL MOYA ([id number]) 1950 M Date Time Provider Department 05/06/20 [facility] During your visit today, we recorded the following information about you: Jayne Mondragon [employer] 05/06/2020 11:01 AM Signed Schedule Direct PCI for 05/27/[address] Alonso Arevalo RN 05/06/2020 11:21 AM Signed Left message on [employer] requesting pt return call for cath date and instructions. Office phone number provided. SHALA Mueller RN 05/06/2020 12:07 PM Signed Patient scheduled for left heart cath/PCI, radial, with Dr Stover on Fr 05/27/20. Instructions reviewed. Questions answered. Patient verbalized understanding. Instructions were as follows: -Arrive to [facility] Entrance 05/27/20 at time assigned by [facility] blender laborer staff in phone call 05/26/20 PM.. -Pt to increase po water intake day prior to heart cath. Pt may eat a light meal and drink clear liquids until 3 hours prior to procedure. -With a sip of water on 05/27/20 morning take: Aspirin 325mg (pt reports this is his prescribed ASA dose with Plavix)along with usual BP meds- Plavix, metoprolol and amlodipine. -Pt is to contact Dr Reynolds about insulin adjustment. -Labs to be done no later than 05/25/20. -Pt notified of mandatory COVID 19 testing prior to procedure. Pt voices understanding that our staff will contact him/her with date, time and location of testing. - You must have someone drive you home from your procedure. -blender laborer policy is pt not be alone first evening Office phone number provided for questions or concerns. SHALA Mueller RN 05/06/2020 12:07 PM Signed Please arrange COVID testing 05/25/20 for 05/27/20 heart cath. TY Farrukh Arevalo RN Frederick Reza 05/12/2020 4:11 PM Signed Scheduled. Frederick Reza May 12, 2020 4:10 PM Farrukh Arevalo RN 05/25/2020 8:18 AM Signed Mrs calls to report pt has had 2 toes amputated within the last year. She reports she discovered on of his toes is red, swollen and draining serous fluid. She has a call to pt's MD to inquire into ABX or appt. Mrs asks if pt should proceed with cath/PCI Fr 05/27/20. SHALA Mueller APRN.PATRICIA GOMEZ 05/25/2020 10:52 AM Signed Did the patient mention when he would be completed with this course of antibiotics? I will defer to Dr. Stover on whether he wants to proceed this Saturday or not. Thanks! Demi Power APRN.PATRICIA Arevalo RN 05/25/2020 11:16 AM Addendum Spoke with . She took pt to ER. Xray confirms no osteomyelitis. He was started on Keflex and Bactrim. He will start those today. He was prescribed a 7 day course of both. SHALA Mueller RN 05/26/2020 8:[address] Stover: Postpone heart cath for now. Mrs notified and voices understanding. Jayne notified. SHALA Mueller [facility] 06/29/2020 9:06 AM Addendum Reschedule Direct PCI on 07/01/[address] Alonso Arevalo RN 06/29/2020 9:21 AM Signed Left message on voicemail requesting pt return call for heart cath date and instructions. Office phone number provided. SHALA Mueller RN 06/29/2020 11:48 AM Addendum Patient scheduled for left heart cath/PCI, radial, with Dr Stover on Fr 07/01/20. Instructions reviewed. Questions answered. Patient verbalized understanding. Instructions were as follows: -Arrive to [facility] Entrance 07/01/20 at time assigned by [facility] blender laborer staff in phone call 06/30/20 PM.. -Pt to increase po water intake day prior to heart cath. Pt may eat a light meal and drink clear liquids until 3 hours prior to procedure. -With a sip of water on 07/01/20 morning take: Aspirin 325mg (pt reports this is his usual daily dose) along with usual BP meds- plavix, metoprolol and amlodipine. -Labs done 06/27/20 @ [facility] scanned into Spro[employer]. -Pt notified of mandatory COVID 19 testing prior to procedure. Pt voices understanding that our staff will contact him/her with date, time and location of testing. - You must have someone drive you home from your procedure. -blender laborer policy is pt not be alone first evening Office phone number provided for questions or concerns. SHALA Mueller RN 06/29/2020 11:47 AM Addendum Please arrange COVID testing 06/29/20 for 07/01/20 heart cath. TY SHALA Mueller RN 06/29/2020 10:23 AM Signed Addended by: FARRUKH AREVALO on: 06/29/2020 10:23 AM Modules accepted: Orders Farrukh Arevalo RN 06/29/2020 11:47 AM Signed Addended by: FARRUKH AREVALO on: 06/29/2020 11:47 AM Modules accepted: Orders Frederick Cobb 06/29/2020 2:31 PM Signed Patient scheduled for Covid test by Gabrielle Mckee. Frederick Cobb June 29, 2020 2:31 PM Allergies As of Date: 05/06/2020 Noted Allergy Reaction ALTACE (RAMIPRIL) 12/29/2004 5 - Intolerance DIOVAN (VALSARTAN) 12/29/2004 PROPOFOL 02/10/2020 14 - Other (more content not included)... Normal [facility] CNPJackelyn 04-29-2020 [facility] Telephone (AGCARDPOB) MIGUELANGEL MOYA ([id number]) 1950 M Date Time Provider Department 04/29/20 REGULO STOVER AGCARDPOMehul During your visit today, we recorded the following information about you: Farrukh Arevalo RN 04/29/2020 2:06 PM Signed Mrs asks for recommendation based on CTA results. SHALA Mueller MD 05/05/2020 6:15 PM Signed I reviewed the CAT scan results with the patient. Patient was reviewed in meeting. Consider percutaneous core intervention without hemodynamic support to the LAD and possibly the ostial left main. Patient will be reviewed again after his CAT scan results are fully reviewed. I discussed these findings with the patient. He is willing to proceed with high risk percutaneous core intervention. Farrukh Arevalo RN 05/06/2020 8:36 AM Signed Regulo Stover [facility] [place] 14 hours ago (6:15 PM) Please schedule patient for PCI Routing comment Allergies As of Date: 04/29/2020 Noted Allergy Reaction ALTACE (RAMIPRIL) 12/29/2004 5 - Intolerance DIOVAN (VALSARTAN) 12/29/2004 PROPOFOL 02/10/2020 14 - Other: See Comments Comments: agitation RAMIPRIL 11/05/2007 SEASONAL ALLERGIES 08/04/2012 14 - Other: See Comments [id number] REDUCTASE INHIBIT*06/18/2011 14 - Other: See Comments Comments: Muscle aches Date Reviewed: 03/31/2020 Reviewed by: Regulo Stover - Fully Assessed Reason for Visit: Preparations For Procedures [899] Results [95] Reason For Visit History Recorded Primary Visit Diagnosis:Coronary artery disease of [place] artery of [place] heart with stable angina pectoris (HCC) [I25.118] Other Visit Diagnosis:Stable angina pectoris (HCC) [I20.8] Order(s):CARDIAC CHEMISTRY TECHNOLOGIST ORDER [[id number]] Order #: [id number]: 1 Prescriptions as of 04/29/2020 Sig: SODIUM CHLORIDE 0.9 % IV BOLUS Pre- CT hydration: 200 ml hr * GLIMEPIRIDE 4 MG TABLET Take 1 tablet by mouth daily * Patient taking differently: Take 1 tablet by mouth daily * CLOPIDOGREL 75 MG TABLET Take 75 mg by mouth once antoine* FUROSEMIDE 40 MG TABLET Take 40 mg by mouth twice fabio* BIOTIN ORAL Take 1 tablet by mouth once d* PEN NEEDLE, DIABETIC 29 GAUGE* Use one needle for each dose.* BASAGLAR KWIKPEN U-100 INSULI* Inject 56 Units subcutaneousl* NITROGLYCERIN 0.4 MG SUBLINGU* Dissolve 1 tablet under the t* AMLODIPINE 5 MG TABLET Take 5 mg by mouth once daily. DOXAZOSIN 1 MG TABLET Take 1 mg by mouth daily at b* METOPROLOL TARTRATE 25 MG TAB* Take 2 tablets by mouth twice* * BLOOD SUGAR DIAGNOSTIC STRIPS TEST BLOOD SUGAR 2 TIMES PER * * OMEGA-3 FATTY ACIDS-FISH OIL * Take 3000 mg daily. * LANCETS twice daily. Use as instructe* * ASPIRIN 325 MG TABLET,DELAYED* Take 1 tablet by mouth once d* * MULTIVITAMIN TABLET Take one(1) tablet daily. * VITAMIN C 1,000 MG TABLET Take one(1) tablet daily. Problem List As Of Date 04/29/2020 Noted Resolved GENERAL OSTEOARTHROSIS [M15.9] ESOPHAGEAL REFLUX [K21.9] Venous (peripheral) insufficiency [I87.2] Personal history of contact with and (suspected* 08/19/2014 Type 2 diabetes mellitus with diabetic neuropat* Obesity, Class III, BMI 40-49.9 (morbid obesity* Nonspecific abnormal results of liver function * 08/19/2014 Other hyperlipidemia [E78.49] Essential hypertension [I10] Diabetic polyneuropathy (HCC) [E11.42] 01/30/2006 04/24/2018 Coronary artery disease of [place] artery of thai*10/07/2007 More... Persistent atrial fibrillation (HCC) [I48.19] 10/07/2007 JAMES (obstructive sleep apnea) [G47.33] 08/13/2013 08/19/2014 Memory disturbance [R41.3] 08/13/2013 Hematuria [R31.9] 05/31/2014 08/19/2014 BPH (benign prostatic hyperplasia) [N40.0] 05/31/2014 Chronic anticoagulation [Z79.01] 05/31/2014 08/19/2014 History of smoking [Z87.891] 05/31/2014 08/19/2014 Nephrolithiasis [N20.0] 10/17/2016 04/24/2018 Skin ulcer of toe of right foot, limited to catie*04/24/2018 07/24/2018 Osteomyelitis of second toe of right foot (HCC)*09/17/2019 Osteomyelitis of third toe of right foot (HCC) *09/17/2019 History of partial amputation of toe of right f*09/17/2019 Acute kidney injury (DANIELA) with acute tubular ne*11/06/2019 Dyspnea on exertion [R06.00] 11/06/2019 Statin intolerance [Z78.9] 03/31/2020 Chronic diastolic congestive heart failure (HCC*03/31/2020 Encounter Status:Closed by REGULO STOVER on 05/05/20 [facility] CTA ABD/PELV W IVCONon 04-19 CTA ABD/PELV W IVCON Final Report DATE OF EXAM: Apr 19 2020 2:08PM [facility] 0311 - CTA ABD/PELV W IVCON / PROCEDURE REASON: multiple diagnoses Physician Interpretation CT ANGIOGRAPHY OF THE CHEST, ABDOMEN AND PELVIS DATE: INDICATION: ... TECHNIQUE: Standard CT examination of the chest was performed without contrast. Following this, gated angiographic CT imaging of the chest was performed, followed by nongated angiographic examination abdomen and pelvis. Axial scans were obtained in the angiographic phase at 0.6 mm from the level of the apices to the level of the proximal femurs. Axial reconstructed images were obtained at 3 mm for the chest and 1 mm for the abdomen and pelvis. COMPARISON: CT examination of the abdomen and pelvis with contrast dated 07/28/2018. CT examination of the chest without contrast dated 02/22/2020. CONTRAST: 150 cc of Omnipaque 350 was injected intravenously. Oral contrast was not administered. CT Dose-Length Product: [address] Dose Reduction Employed: 2. Automated exposure control (AEC) and/or iterative reconstruction was used. ENCOUNTER: Not applicable FINDINGS: The most anterior aspect of the abdomen as well as the lateral aspect of the right abdomen and upper pelvis are excluded from examination. AORTA: Calcified atherosclerotic disease involving the thoracic aorta as well as the visualized portions of the great vessels. No significant aneurysmal dilation, luminal filling defect or stenosis. There is common origin of the innominate and left common carotid artery. There is mild fusiform dilation of the proximal aspect ending thoracic aorta, measuring up to 4.2 x 4.1 cm. Aortic measurements: Aortic annulus: 2.5 x 2.5 cm Sinuses of Valsalva (sinus to commissure): 3.5 x 3.4 x 3.3 cm Sinotubular junction: 3.2 x 3.2 cm Proximal ascending aorta: 4.2 x 4.1 cm Mid ascending aorta: 3.8 x 3.8 cm Distal ascending aorta: 3.1 x 3.0 cm Isthmus: 2.9 x 2.9 cm Proximal descending aorta: 2.9 x 2.7 cm Mid descending aorta: 2.6 x 2.6 cm Distal descending aorta: 2.8 x 2.7 cm The thoracic aorta demonstrates a mildly tortuous course. Calcified atherosclerotic disease of the abdominal aorta and its branch vessels. No significant aneurysmal dilation, luminal filling defect or stenosis. There are calcifications involving the branch vessels of the abdominal aorta. The celiac artery and its branch vessels demonstrate mild calcified atherosclerotic disease without suspicious filling defect, aneurysmal dilation or stenosis. Calcified atherosclerotic disease results in up to 50% stenosis at the origin of the superior mesenteric artery. The superior mesenteric artery and its branch vessels appear to be otherwise patent. There are 2 separate right and 2 separate left renal arteries. There is calcified atherosclerotic disease involving the renal arteries and their branch vessels without discrete focal suspicious filling defect, stenosis or aneurysmal dilation. Branch vessels appear to be unremarkable. The inferior mesenteric artery and its branch vessels appear to be patent. Calcified atherosclerotic disease involving the bilateral common, internal and external iliac arteries. Short segment [id number] stenosis involving the proximal left common iliac artery due to calcified atherosclerotic plaque. Otherwise the common and external iliac arteries are patent. No aneurysmal dilation. Calcified atherosclerotic disease results in short segment severe stenosis at the origin the left internal iliac artery. There is associated poststenotic dilation with the internal iliac artery measuring up to 1.2 cm. The internal iliac artery and its branch vessels are otherwise patent. The right internal iliac artery and its branch vessels appear to be patent. The right external iliac artery measures up to 1.0 cm. Left external iliac artery measures up to 1.2 cm. The bilateral common femoral arteries demonstrate calcified atherosclerotic disease without significant focal stenosis, luminal filling defect or aneurysmal dilation. The visualized portions of the bilateral superficial and deep femoral arteries appear to be patent and otherwise unremarkable. The left inferior epigastric artery arises from the left deep femoral artery. There is early branching of the left common femoral artery bifurcation at the level of the inguinal ligament. CARDIOVASCULAR SYSTEM: No cardiomegaly, pericardial thickening or effusion. Prominent calcifications associated with the coronary arteries. Mild amount of calcifications noted involving the aortic valve. The opacified portions of the pulmonary arteries and their branch vessels demonstrate no suspicious filling defects. LYMPHATIC SYSTEM: No middle mediastinal, hilar or axillary adenopathy. PULMONARY SYSTEM: No noncalcified pulmonary nodule, parenchymal consolidation or foci of cavitation. Proximal tracheobronchial (more content not included)... Normal [facility] CTA CHEST (GATED) WO/W IVCON on 04-19-2020 CTA CHEST (GATED) WO/W IVCON Final Report DATE OF EXAM: Apr 19 2020 2:08PM [facility] 0126 - CTA CHEST (GATED) WO/W IVCON / PROCEDURE REASON: multiple diagnoses Physician Interpretation CT ANGIOGRAPHY OF THE CHEST, ABDOMEN AND PELVIS DATE: INDICATION: ... TECHNIQUE: Standard CT examination of the chest was performed without contrast. Following this, gated angiographic CT imaging of the chest was performed, followed by nongated angiographic examination abdomen and pelvis. Axial scans were obtained in the angiographic phase at 0.6 mm from the level of the apices to the level of the proximal femurs. Axial reconstructed images were obtained at 3 mm for the chest and 1 mm for the abdomen and pelvis. COMPARISON: CT examination of the abdomen and pelvis with contrast dated 07/28/2018. CT examination of the chest without contrast dated 02/22/2020. CONTRAST: 150 cc of Omnipaque 350 was injected intravenously. Oral contrast was not administered. CT Dose-Length Product: [address] Dose Reduction Employed: 2. Automated exposure control (AEC) and/or iterative reconstruction was used. ENCOUNTER: Not applicable FINDINGS: The most anterior aspect of the abdomen as well as the lateral aspect of the right abdomen and upper pelvis are excluded from examination. AORTA: Calcified atherosclerotic disease involving the thoracic aorta as well as the visualized portions of the great vessels. No significant aneurysmal dilation, luminal filling defect or stenosis. There is common origin of the innominate and left common carotid artery. There is mild fusiform dilation of the proximal aspect ending thoracic aorta, measuring up to 4.2 x 4.1 cm. Aortic measurements: Aortic annulus: 2.5 x 2.5 cm Sinuses of Valsalva (sinus to commissure): 3.5 x 3.4 x 3.3 cm Sinotubular junction: 3.2 x 3.2 cm Proximal ascending aorta: 4.2 x 4.1 cm Mid ascending aorta: 3.8 x 3.8 cm Distal ascending aorta: 3.1 x 3.0 cm Isthmus: 2.9 x 2.9 cm Proximal descending aorta: 2.9 x 2.7 cm Mid descending aorta: 2.6 x 2.6 cm Distal descending aorta: 2.8 x 2.7 cm The thoracic aorta demonstrates a mildly tortuous course. Calcified atherosclerotic disease of the abdominal aorta and its branch vessels. No significant aneurysmal dilation, luminal filling defect or stenosis. There are calcifications involving the branch vessels of the abdominal aorta. The celiac artery and its branch vessels demonstrate mild calcified atherosclerotic disease without suspicious filling defect, aneurysmal dilation or stenosis. Calcified atherosclerotic disease results in up to 50% stenosis at the origin of the superior mesenteric artery. The superior mesenteric artery and its branch vessels appear to be otherwise patent. There are 2 separate right and 2 separate left renal arteries. There is calcified atherosclerotic disease involving the renal arteries and their branch vessels without discrete focal suspicious filling defect, stenosis or aneurysmal dilation. Branch vessels appear to be unremarkable. The inferior mesenteric artery and its branch vessels appear to be patent. Calcified atherosclerotic disease involving the bilateral common, internal and external iliac arteries. Short segment dgwj-lc-bsqnfkoi stenosis involving the proximal left common iliac artery due to calcified atherosclerotic plaque. Otherwise the common and external iliac arteries are patent. No aneurysmal dilation. Calcified atherosclerotic disease results in short segment severe stenosis at the origin the left internal iliac artery. There is associated poststenotic dilation with the internal iliac artery measuring up to 1.2 cm. The internal iliac artery and its branch vessels are otherwise patent. The right internal iliac artery and its branch vessels appear to be patent. The right external iliac artery measures up to 1.0 cm. Left external iliac artery measures up to 1.2 cm. The bilateral common femoral arteries demonstrate calcified atherosclerotic disease without significant focal stenosis, luminal filling defect or aneurysmal dilation. The visualized portions of the bilateral superficial and deep femoral arteries appear to be patent and otherwise unremarkable. The left inferior epigastric artery arises from the left deep femoral artery. There is early branching of the left common femoral artery bifurcation at the level of the inguinal ligament. CARDIOVASCULAR SYSTEM: No cardiomegaly, pericardial thickening or effusion. Prominent calcifications associated with the coronary arteries. Mild amount of calcifications noted involving the aortic valve. The opacified portions of the pulmonary arteries and their branch vessels demonstrate no suspicious filling defects. LYMPHATIC SYSTEM: No middle mediastinal, hilar or axillary adenopathy. PULMONARY SYSTEM: No noncalcified pulmonary nodule, parenchymal consolidation or foci of cavitation. Proximal tracheobr (more content not included)... Normal [facility] HOSPon 04-10-2020 HOSP Patient:Mt Moya MRN: Height:5' 7(1.702 m) Weight:297 lb (134.718 kg) Outpatient Medications as of 04/19/20: 0.9 % sodium chloride (NACL 0.9% IV BOLUS) solp glimepiride (AMARYL) 4 mg tablet clopidogrel (PLAVIX) 75 mg tablet furosemide (LASIX) 40 mg tablet BIOTIN ORAL Insulin Spruce, Disposable, (BD INSULIN PEN NEEDLE UF) 29 gauge x 1/2 ndle insulin glargine (BASAGLAR KWIKPEN U-100 INSULIN) 100 unit/mL (3 mL) inpn nitroglycerin sublingual (NITROQUICK) 0.4 mg SL tablet amLODIPine (NORVASC) 5 mg tablet doxazosin (CARDURA) 1 mg tablet metoprolol tartrate, short acting, (LOPRESSOR) 25 mg tablet blood sugar diagnostic (ONE TOUCH ULTRA TEST) test strip Fish Oil-Jackson-3 Fatty Acids (FISH OIL OMEGA 3-6-9) 300-1,000 mg CpDR Lancets (ONE TOUCH ULTRASOFT LANCETS) Misc lancets aspirin, enteric coated (ECOTRIN) 325 mg ORAL EC tablet MULTIVITAMIN TAB VITAMIN C 1,000 MG TAB Admission/Clinic Administered Medications as of 04/19/20: sodium chloride 0.9 % (flush) 2-10 mL (BD POSIFLUSH) NaCl 0.9% 500 mL iv bolus Problem List: Generalized osteoarthrosis, unspecified site [M15.9] Esophageal reflux [K21.9] Venous (peripheral) insufficiency [I87.2] Type 2 diabetes mellitus with diabetic neuropathy (HCC) [E11.40] Obesity, Class III, BMI 40-49.9 (morbid obesity) (HCC) [E66.01] Other hyperlipidemia [E78.49] Essential hypertension [I10] Coronary artery disease of [place] artery of re[place]sparks heart with stable angina pectoris (HCC) [I25.118] Persistent atrial fibrillation (HCC) [I48.19] Memory disturbance [R41.3] BPH (benign prostatic hyperplasia) [N40.0] Osteomyelitis of second toe of right foot (HCC) [M86.9] Osteomyelitis of third toe of right foot (HCC) [M86.9] 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 Regulo Stover MD 03/31/2020 9:37 AM Signed [facility]Y [facility] Cardiology [place] ([facility] ([facility])) [address] [id number] OUTPATIENT VISIT DATE 03/26/2020 PRIMARY CARE PHYSICIAN: Krishna Reynolds MD [address] [place] [address] CHIEF COMPLAINT: Patient with complex coronary artery disease referred for evaluation of possible high risk PCI HISTORY OF PRESENT ILLNESS: Mr. Moya is a 69 year old with extensive medical problems including morbid obesity, diabetes insulin requiring, chronic diastolic heart failure, chronic kidney disease and coronary artery disease who is referred for evaluation. Patient was sent to Dr. Gardner for consideration already bypass grafting. After extensive [...] including PCSK9 inhibitor. From OV with Dr Gardner 02/10/20 HPI: This is a 69 year [...] inducible ischemia in the distal inferior and in (more content not included)... Normal [facility] CNOVon 03-31-2020 CNOV Office Visit (AGCARDPOB) MIGUELANGEL MOYA ([id number]) 1950 M Date Time Provider Department 03/31/20 8:30 AM REGULO STOVER AGCARDPOB During your visit today, we recorded the following information about you: Pulse Respiration Blood pressure Weight 98/minute 20/minute 134/80 134.7 kg Height 1.702 m Dassia Lito, MA, BRANDAN 03/31/2020 8:22 AM Signed Patient has no cardiac complaints today. Regulo Stover MD 03/31/2020 9:37 AM Signed [facility] Cardiology [place] ([facility] ([facility])) [address] [facility] [address] OUTPATIENT VISIT DATE 03/26/2020 PRIMARY CARE PHYSICIAN: Krishna Reynolds MD [address] [place] [address] CHIEF COMPLAINT: Patient with complex coronary artery disease referred for evaluation of possible high risk PCI HISTORY OF PRESENT ILLNESS: Mr. Moya is a 69 year old with extensive medical problems including morbid obesity, diabetes insulin requiring, chronic diastolic heart failure, chronic kidney disease and coronary artery disease who is referred for evaluation. Patient was sent to Dr. Gardner for consideration already bypass grafting. After extensive [...] including PCSK9 inhibitor. From OV with Dr Gardner 02/10/20 HPI: This is a 69 year [...] and occluded RCA with collateral filling via xphz-lq-ndxiq collaterals. 2D echo shows ejection fraction of [...] CAD (coronary artery disease) 10/07/2007 70% stenosis ci (more content not included)... Normal [facility] Jennifer 03-30-2020 JENNIFER Telephone (AGVASACC) MIGUELANGEL MOYA ([id number]) 1950 M Date Time Provider Department 03/30/20 CURT GARDNER During your visit today, we recorded the following information about you: Ava Corea 03/30/2020 1:[address] Verma 03/10/20 office encounter, which was scanned into [employer]. Allergies As of Date: 03/30/2020 Noted Allergy Reaction ALTACE (RAMIPRIL) 12/29/2004 5 - Intolerance DIOVAN (VALSARTAN) 12/29/2004 PROPOFOL 02/10/2020 14 - Other: See Comments Comments: agitation RAMIPRIL 11/05/2007 SEASONAL ALLERGIES 08/04/2012 14 - Other: See Comments EGAPHLT-PAJ-KQB REDUCTASE INHIBIT*06/18/2011 14 - Other: See Comments Comments: Muscle aches Date Reviewed: 02/22/2020 Reviewed by: Teresita (Lath Tier) ANDRES Ndiaye - Fully Assessed Reason for Visit: Received Outside Medical Records [[id number]] Prescriptions as of 03/30/2020 Sig: GLIMEPIRIDE 4 MG TABLET Take 1 tablet by mouth daily * Patient taking differently: Take 1 tablet by mouth daily * CLOPIDOGREL 75 MG TABLET Take 75 mg by mouth once antoine* FUROSEMIDE 40 MG TABLET Take 40 mg by mouth twice fabio* BIOTIN ORAL Take 1 tablet by mouth once d* PEN NEEDLE, DIABETIC 29 GAUGE* Use one needle for each dose.* BASAGLAR KWIKPEN U-100 INSULI* Inject 56 Units subcutaneousl* NITROGLYCERIN 0.4 MG SUBLINGU* Dissolve 1 tablet under the t* AMLODIPINE 5 MG TABLET Take 5 mg by mouth once daily. DOXAZOSIN 1 MG TABLET Take 1 mg by mouth daily at b* METOPROLOL TARTRATE 25 MG TAB* Take 2 tablets by mouth twice* * BLOOD SUGAR DIAGNOSTIC STRIPS TEST BLOOD SUGAR 2 TIMES PER * * OMEGA-3 FATTY ACIDS-FISH OIL * Take 3000 mg daily. * LANCETS twice daily. Use as instructe* * ASPIRIN 325 MG TABLET,DELAYED* Take 1 tablet by mouth once d* * MULTIVITAMIN TABLET Take one(1) tablet daily. * VITAMIN C 1,000 MG TABLET Take one(1) tablet daily. Problem List As Of Date 03/30/2020 Noted Resolved GENERAL OSTEOARTHROSIS [M15.9] ESOPHAGEAL REFLUX [K21.9] Venous (peripheral) insufficiency [I87.2] Personal history of contact with and (suspected* 08/19/2014 Type 2 diabetes mellitus with diabetic neuropat* Obesity, Class III, BMI 40-49.9 (morbid obesity* Nonspecific abnormal results of liver function * 08/19/2014 Other hyperlipidemia [E78.49] Essential hypertension [I10] Diabetic polyneuropathy (HCC) [E11.42] 01/30/2006 04/24/2018 CAD (Coronary Artery Disease) [I25.10] 10/07/2007 More... Paroxysmal Atrial Fibrillation [I48.0] 10/07/2007 JAMES (obstructive sleep apnea) [G47.33] 08/13/2013 08/19/2014 Memory disturbance [R41.3] 08/13/2013 Hematuria [R31.9] 05/31/2014 08/19/2014 BPH (benign prostatic hyperplasia) [N40.0] 05/31/2014 Chronic anticoagulation [Z79.01] 05/31/2014 08/19/2014 History of smoking [Z87.891] 05/31/2014 08/19/2014 Nephrolithiasis [N20.0] 10/17/2016 04/24/2018 Skin ulcer of toe of right foot, limited to catie*04/24/2018 07/24/2018 Osteomyelitis of second toe of right foot (HCC)*09/17/2019 Osteomyelitis of third toe of right foot (HCC) *09/17/2019 History of partial amputation of toe of right f*09/17/2019 Acute kidney injury (DANIELA) with acute tubular ne*11/06/2019 Dyspnea on exertion [R06.00] 11/06/2019 Encounter Status:Closed by AVA COREA on 03/31/20 [facility] Jennifer 02-23-2020 PATRICIAN Telephone (AGCARDPOB) MIGUELANGEL MOYA ([id number]) 1950 M Date Time Provider Department 02/23/20 REGULO STOVER AGCARDPOB During your visit today, we recorded the following information about you: Gabrielle Mckee 02/23/2020 2:26 PM Signed LVM for patient to call the office. Patient's appointment with Dr. Stover in [place] in 05/15 was moved to B to be seen sooner. Patient is scheduled on 03/31/20 @ 8:30 am in the POB. Farrukh Arevalo RN 02/23/2020 2:40 PM Signed Mrs calls and confirms understanding new appt info. Farrukh Arevalo RN Allergies As of Date: 02/23/2020 Noted Allergy Reaction ALTACE (RAMIPRIL) 12/29/2004 5 - Intolerance DIOVAN (VALSARTAN) 12/29/2004 PROPOFOL 02/10/2020 14 - Other: See Comments Comments: agitation RAMIPRIL 11/05/2007 SEASONAL ALLERGIES 08/04/2012 14 - Other: See Comments [id number]-[id number] REDUCTASE INHIBIT*06/18/2011 14 - Other: See Comments Comments: Muscle aches Date Reviewed: 02/22/2020 Reviewed by: Teresita (Lath Tier) ANDRES Ndiaye - Fully Assessed Reason for Visit: Appointment [186] Prescriptions as of 02/23/2020 Sig: GLIMEPIRIDE 4 MG TABLET Take 1 tablet by mouth daily * CLOPIDOGREL 75 MG TABLET Take 75 mg by mouth once antoine* FUROSEMIDE 40 MG TABLET Take 40 mg by mouth twice fabio* BIOTIN ORAL Take 1 tablet by mouth once d* PEN NEEDLE, DIABETIC 29 GAUGE* Use one needle for each dose.* BASAGLAR KWIKPEN U-100 INSULI* Inject 56 Units subcutaneousl* NITROGLYCERIN 0.4 MG SUBLINGU* Dissolve 1 tablet under the t* AMLODIPINE 5 MG TABLET Take 5 mg by mouth once daily. DOXAZOSIN 1 MG TABLET Take 1 mg by mouth daily at b* METOPROLOL TARTRATE 25 MG TAB* Take 2 tablets by mouth twice* * BLOOD SUGAR DIAGNOSTIC STRIPS TEST BLOOD SUGAR 2 TIMES PER * * OMEGA-3 FATTY ACIDS-FISH OIL * Take 3000 mg daily. * LANCETS twice daily. Use as instructe* * ASPIRIN 325 MG TABLET,DELAYED* Take 1 tablet by mouth once d* * MULTIVITAMIN TABLET Take one(1) tablet daily. * VITAMIN C 1,000 MG TABLET Take one(1) tablet daily. Problem List As Of Date 02/23/2020 Noted Resolved GENERAL OSTEOARTHROSIS [M15.9] ESOPHAGEAL REFLUX [K21.9] Venous (peripheral) insufficiency [I87.2] Personal history of contact with and (suspected* 08/19/2014 Type 2 diabetes mellitus with diabetic neuropat* Obesity, Class III, BMI 40-49.9 (morbid obesity* Nonspecific abnormal results of liver function * 08/19/2014 Other hyperlipidemia [E78.49] Essential hypertension [I10] Diabetic polyneuropathy (HCC) [E11.42] 01/30/2006 04/24/2018 CAD (Coronary Artery Disease) [I25.10] 10/07/2007 More... Paroxysmal Atrial Fibrillation [I48.0] 10/07/2007 JAMES (obstructive sleep apnea) [G47.33] 08/13/2013 08/19/2014 Memory disturbance [R41.3] 08/13/2013 Hematuria [R31.9] 05/31/2014 08/19/2014 BPH (benign prostatic hyperplasia) [N40.0] 05/31/2014 Chronic anticoagulation [Z79.01] 05/31/2014 08/19/2014 History of smoking [Z87.891] 05/31/2014 08/19/2014 Nephrolithiasis [N20.0] 10/17/2016 04/24/2018 Skin ulcer of toe of right foot, limited to catie*04/24/2018 07/24/2018 Osteomyelitis of second toe of right foot (HCC)*09/17/2019 Osteomyelitis of third toe of right foot (HCC) *09/17/2019 History of partial amputation of toe of right f*09/17/2019 Acute kidney injury (DANIELA) with acute tubular ne*11/06/2019 Dyspnea on exertion [R06.00] 11/06/2019 Encounter Status:Closed by GABRIELLE MCKEE on 02/23/20 [facility] Jennifer 02-16-2020 PATRICIAN Telephone (AGCARDPOB) MIGUELANGEL MOYA ([id number]) 1950 M Date Time Provider Department 02/16/20 REGULO STOVER AGCARDPOMehul During your visit today, we recorded the following information about you: Farrukh Arevalo RN 02/16/2020 10:04 AM Signed Ryan (Steel Molder Hogshead Hand) PATRICIA Akins P Ag Card Clinical Pool ? Elliot, Armando, Please process the referral to Dr. Stover for PCI evaluation as patient was presented this am at heart team. Dr. Stover agreed to see this pt outpatient for PCI eval. P.S: this patient lives in [place], so maybe would be good to schedule him there. Thanks. Cassie Yañez 02/16/2020 11:37 AM Signed I called and gave patient the number for scheduling at the [place] office for Dr. Stovre. Allergies As of Date: 02/16/2020 Noted Allergy Reaction ALTACE (RAMIPRIL) 12/29/2004 5 - Intolerance DIOVAN (VALSARTAN) 12/29/2004 PROPOFOL 02/10/2020 14 - Other: See Comments Comments: agitation RAMIPRIL 11/05/2007 SEASONAL ALLERGIES 08/04/2012 14 - Other: See Comments [id number]-[id number] REDUCTASE INHIBIT*06/18/2011 14 - Other: See Comments Comments: Muscle aches Date Reviewed: 02/15/2020 Reviewed by: Roxanna Dennis LPN - Fully Assessed Reason for Visit: Appointment [186] Prescriptions as of 02/16/2020 Sig: GLIMEPIRIDE 4 MG TABLET Take 1 tablet by mouth daily * CLOPIDOGREL 75 MG TABLET Take 75 mg by mouth once antoine* FUROSEMIDE 40 MG TABLET Take 40 mg by mouth twice fabio* BIOTIN ORAL Take 1 tablet by mouth once d* PEN NEEDLE, DIABETIC 29 GAUGE* Use one needle for each dose.* BASAGLAR KWIKPEN U-100 INSULI* Inject 56 Units subcutaneousl* NITROGLYCERIN 0.4 MG SUBLINGU* Dissolve 1 tablet under the t* AMLODIPINE 5 MG TABLET Take 5 mg by mouth once daily. DOXAZOSIN 1 MG TABLET Take 1 mg by mouth daily at b* METOPROLOL TARTRATE 25 MG TAB* Take 2 tablets by mouth twice* * BLOOD SUGAR DIAGNOSTIC STRIPS TEST BLOOD SUGAR 2 TIMES PER * * OMEGA-3 FATTY ACIDS-FISH OIL * Take 3000 mg daily. * LANCETS twice daily. Use as instructe* * ASPIRIN 325 MG TABLET,DELAYED* Take 1 tablet by mouth once d* * MULTIVITAMIN TABLET Take one(1) tablet daily. * VITAMIN C 1,000 MG TABLET Take one(1) tablet daily. Problem List As Of Date 02/16/2020 Noted Resolved GENERAL OSTEOARTHROSIS [M15.9] ESOPHAGEAL REFLUX [K21.9] Venous (peripheral) insufficiency [I87.2] Personal history of contact with and (suspected* 08/19/2014 Type 2 diabetes mellitus with diabetic neuropat* Obesity, Class III, BMI 40-49.9 (morbid obesity* Nonspecific abnormal results of liver function * 08/19/2014 Other hyperlipidemia [E78.49] Essential hypertension [I10] Diabetic polyneuropathy (HCC) [E11.42] 01/30/2006 04/24/2018 CAD (Coronary Artery Disease) [I25.10] 10/07/2007 More... Paroxysmal Atrial Fibrillation [I48.0] 10/07/2007 JAMES (obstructive sleep apnea) [G47.33] 08/13/2013 08/19/2014 Memory disturbance [R41.3] 08/13/2013 Hematuria [R31.9] 05/31/2014 08/19/2014 BPH (benign prostatic hyperplasia) [N40.0] 05/31/2014 Chronic anticoagulation [Z79.01] 05/31/2014 08/19/2014 History of smoking [Z87.891] 05/31/2014 08/19/2014 Nephrolithiasis [N20.0] 10/17/2016 04/24/2018 Skin ulcer of toe of right foot, limited to catie*04/24/2018 07/24/2018 Osteomyelitis of second toe of right foot (HCC)*09/17/2019 Osteomyelitis of third toe of right foot (HCC) *09/17/2019 History of partial amputation of toe of right f*09/17/2019 Acute kidney injury (DANIELA) with acute tubular ne*11/06/2019 Dyspnea on exertion [R06.00] 11/06/2019 Encounter Status:Closed by ANJUM YAÑEZ on 02/16/20 [facility] CNTRTMon 02-16-2020 [facility] (AG[facility]ASACC[facility] MIGUELANGEL MOYA ([id number]) 1950 M Date Time Provider Department 02/16/20 RYAN AKINS (DELIVERY TECH, CAR CHECKER) JENAE During your visit today, we recorded the following information about you: Ryan Akins APRN.PATRICIA, CAR CHECKER 02/16/2020 9:52 AM Signed MULTI DISCIPLINARY HIGH RISK AVR CARDIAC TEAM Members present: Dr. Gardner, Dr. Renee, Dr. Allen, Dr. Stover, Dr. Elizabeth, Dr. Barclay, Jennifer Lee DELIVERY TECH, CAR CHECKER, Gretchen DELIVERY TECH, CAR CHECKER, Eileen Rueda DELIVERY TECH, CAR CHECKER. Presenting Physician: PATIENT NAME: Miguelangel Moya DATE: [...] for PCI eval and discussion. REFERRAL PLACED. Ryan Akins APRN.CNP Allergies As of Date: 02/16/2020 Noted Allergy Reaction ALTACE (RAMIPRIL) 12/29/2004 5 - Intolerance DIOVAN (VALSARTAN) 12/29/2004 PROPOFOL 02/10/2020 14 - Other: See Comments Comments: agitation RAMIPRIL 11/05/2007 SEASONAL ALLERGIES 08/04/2012 14 - Other: See Comments [id number]-[id number] REDUCTASE INHIBIT*06/18/2011 14 - Other: See Comments Comments: Muscle aches Date Reviewed: 02/15/2020 Reviewed by: Roxanna Dennis LPN - Fully Assessed Primary Visit Diagnosis:Coronary artery disease involving re[place]-sparks coronary artery of re[place]sp[place] heart, angina presence unspecified [I25.10] Order(s):CONSULT TO CARDIOLOGY [9004] Order #: [id number]: 1 FUTURE Prescriptions as of 02/16/2020 Sig: GLIMEPIRIDE 4 MG TABLET Take 1 tablet by mouth daily * CLOPIDOGREL 75 MG TABLET Take 75 mg by mouth once antoine* FUROSEMIDE 40 MG TABLET Take 40 mg by mouth twice fabio* BIOTIN ORAL Take 1 tablet by mouth once d* PEN NEEDLE, DIABETIC 29 GAUGE* Use one needle for each dose.* BASAGLAR KWIKPEN U-100 INSULI* Inject 56 Units subcutaneousl* NITROGLYCERIN 0.4 MG SUBLINGU* Dissolve 1 tablet under the t* AMLODIPINE 5 MG TABLET Take 5 mg by mouth once daily. DOXAZOSIN 1 MG TABLET Take 1 mg by mouth daily at b* METOPROLOL TARTRATE 25 MG TAB* Take 2 tablets by mouth twice* * BLOOD SUGAR DIAGNOSTIC STRIPS TEST BLOOD SUGAR 2 TIMES PER * * OMEGA-3 FATTY ACIDS-FISH OIL * Take 3000 mg daily. * LANCETS twice daily. Use as instructe* * ASPIRIN 325 MG TABLET,DELAYED* Take 1 tablet by mouth once d* * MULTIVITAMIN TABLET Take one(1) tablet daily. * VITAMIN C 1,000 MG TABLET Take one(1) tablet daily. Problem List As Of Date 02/16/2020 Noted Resolved GENERAL OSTEOARTHROSIS [M15.9] ESOPHAGEAL REFLUX [K21.9] Venous (peripheral) insufficiency [I87.2] Personal history of contact with and (suspected* 08/19/2014 Type 2 diabetes mellitus with diabetic neuropat* Obesity, Class III, BMI 40-49.9 (morbid obesity* Nonspecific abnormal results of liver function * 08/19/2014 Other hyperlipidemia [E78.49] Essential hypertension [I10] Diabetic polyneuropathy (HCC) [E11.42] 01/30/2006 04/24/2018 CAD (Coronary Artery Disease) [I25.10] 10/07/2007 More... Paroxysmal Atrial Fibrillation [I48.0] 10/07/2007 JAMES (obstructive sleep apnea) [G47.33] 08/13/2013 08/19/2014 Memory disturbance [R41.3] 08/13/2013 Hematuria [R31.9] 05/31/2014 08/19/2014 BPH (benign prostatic hyperplasia) [N40.0] 05/31/2014 Chronic anticoagulation [Z79.01] 05/31/2014 08/19/2014 History of smoking [Z87.891] 05/31/2014 08/19/2014 Nephrolithiasis [N20.0] 10/17/2016 04/24/2018 Skin ulcer of toe of right foot, limited to catie*04/24/2018 07/24/2018 Osteomyelitis of second toe of right foot (HCC)*09/17/2019 Osteomyelitis of third toe of right foot (HCC) *09/17/2019 History of partial amputation of toe of right f*09/17/2019 Acute kidney injury (DANIELA) with acute tubular ne*11/06/2019 Dyspnea on exertion [R06.00] 11/06/2019 Encounter Status:Closed by RYAN AKINS CNP on 02/16/20 [facility] Jennifer 02-12-2020 CNPN Telephone (Haptik) MIGUELANGEL MOYA ([id number]) 1950 M Date Time Provider Department 02/12/20 [facility] During your visit today, we recorded the following information about you: Ava Corea 02/12/2020 11:12 AM Signed Spoke with Mrs. Moya regarding future appts for Mr. Moya. [facility] [address]: 02/22/20 11:40 CT Chest, 2pm PFT, 3:30 carotid ultrasound. No special prep required. Referral to Dr. Cruz first available not until 04/2020. Referral request to [facility] [place] [phone]. Spoke with office they are going to review with [employer] and call back with appt information. Records faxed to [phone]. Ava Corea 02/12/2020 4:12 PM Signed Pt schedule to see lambskin trimmer Dr. Verma 03/10/20 Allergies As of Date: 02/12/2020 Noted Allergy Reaction ALTITA (RAMIPRIL) 12/29/2004 5 - Intolerance DIOVAN (VALSARTAN) 12/29/2004 PROPOFOL 02/10/2020 14 - Other: See Comments Comments: agitation RAMIPRIL 11/05/2007 SEASONAL ALLERGIES 08/04/2012 14 - Other: See Comments ZLREIPZ-YZZ-TUZ REDUCTASE INHIBIT*06/18/2011 14 - Other: See Comments Comments: Muscle aches Date Reviewed: 02/10/2020 Reviewed by: Merrick Falcon LPN - Fully Assessed Reason for Visit: Future Appointment [256] Prescriptions as of 02/12/2020 Sig: CLOPIDOGREL 75 MG TABLET Take 75 mg by mouth once antoine* FUROSEMIDE 40 MG TABLET Take 40 mg by mouth twice fabio* GLIMEPIRIDE 4 MG TABLET Take 0.5 tablets by mouth twi* BIOTIN ORAL Take 1 tablet by mouth once d* PEN NEEDLE, DIABETIC 29 GAUGE* Use one needle for each dose.* BASAGLAR KWIKPEN U-100 INSULI* Inject 56 Units subcutaneousl* NITROGLYCERIN 0.4 MG SUBLINGU* Dissolve 1 tablet under the t* AMLODIPINE 5 MG TABLET Take 5 mg by mouth once daily. DOXAZOSIN 1 MG TABLET Take 1 mg by mouth daily at b* METOPROLOL TARTRATE 25 MG TAB* Take 2 tablets by mouth twice* PHENOBARB-HYOSCYAMN- ATROPINE-* Take 1 tablet by mouth every * Patient not taking: Reported on 02/10/2020 * BLOOD SUGAR DIAGNOSTIC STRIPS TEST BLOOD SUGAR 2 TIMES PER * * OMEGA-3 FATTY ACIDS-FISH OIL * Take 3000 mg daily. * LANCETS twice daily. Use as instructe* * ASPIRIN 325 MG TABLET,DELAYED* Take 1 tablet by mouth once d* * MULTIVITAMIN TABLET Take one(1) tablet daily. * VITAMIN C 1,000 MG TABLET Take one(1) tablet daily. Problem List As Of Date 02/12/2020 Noted Resolved GENERAL OSTEOARTHROSIS [M15.9] ESOPHAGEAL REFLUX [K21.9] Venous (peripheral) insufficiency [I87.2] Personal history of contact with and (suspected* 08/19/2014 Type 2 diabetes mellitus with diabetic neuropat* Obesity, Class III, BMI 40-49.9 (morbid obesity* Nonspecific abnormal results of liver function * 08/19/2014 Other hyperlipidemia [E78.49] Essential hypertension [I10] Diabetic polyneuropathy (HCC) [E11.42] 01/30/2006 04/24/2018 CAD (Coronary Artery Disease) [I25.10] 10/07/2007 More... Paroxysmal Atrial Fibrillation [I48.0] 10/07/2007 JAEMS (obstructive sleep apnea) [G47.33] 08/13/2013 08/19/2014 Memory disturbance [R41.3] 08/13/2013 Hematuria [R31.9] 05/31/2014 08/19/2014 BPH (benign prostatic hyperplasia) [N40.0] 05/31/2014 Chronic anticoagulation [Z79.01] 05/31/2014 08/19/2014 History of smoking [Z87.891] 05/31/2014 08/19/2014 Nephrolithiasis [N20.0] 10/17/2016 04/24/2018 Skin ulcer of toe of right foot, limited to catie*04/24/2018 07/24/2018 Osteomyelitis of second toe of right foot (HCC)*09/17/2019 Osteomyelitis of third toe of right foot (HCC) *09/17/2019 History of partial amputation of toe of right f*09/17/2019 Acute kidney injury (DANIELA) with acute tubular ne*11/06/2019 Dyspnea on exertion [R06.00] 11/06/2019 Encounter Status:Closed by [facility] (AGVASACC[facility] MIGUELANGEL MOYA ([id number]) 1950 M Date Time Provider Department 02/10/20 2:00 PM CURT GARDNER During your visit today, we recorded the following information about you: Pulse Respiration Blood pressure Weight 80/minute 20/minute 130/80 131.5 kg Height 1.702 m Merrick Ezekiel KESSLER 02/10/2020 3:07 PM Signed CARDI[facility]HAB 5 METER WALK TEST SERVICE DATE: 02/10/2020 SERVICE TIME: 1435 ASSESSMENT: Walked pushing wheelchair states gets short of breath AND dizzy when wearing mask. Usually walks with walker which he did not bring with him. 1. 11.35 sec 2. 11.20 sec 3. 11.221 sec SIGNATURE: Merrick Falcon VICTORIA PATIENT NAME: Miguelangel Moya DATE: February 10, 2020 TIME: 3:04 PM PAGER/CONTACT #: [id number] Ryan Akins APRN.CNP, CNP 02/10/2020 5:46 PM Signed [facility] Adult Cardiac Surgery Database Version 4.20 RISK SCORES Procedure: Isolated CAB CALCULATE Risk of Mortality: 1.988% Renal Failure: 6.516% Permanent Stroke: 1.011% Prolonged Ventilation: 12.330% DSW Infection: 1.180% Reoperation: 2.029% Morbidity or Mortality: 19.300% Short Length of Stay: 21.858% Long Length of Stay: 13.101% DEEP Ventura APRN.CNP, CNP 02/10/2020 3:30 PM Addendum You came in to see Dr. Gardner at request of Dr. Deluna for surgical evaluation for coronary artery disease. By reviewing your images, he feels you would be beneficial to have bypass graft surgery ideally. In preporation of surgery, you would need: ? Carotid ultrasound ? CT Chest scan ? LUNG function tests with lambskin trimmer-Dr. Zhang in [place] referral ? After all tests completed, we would like to review your data with our heart team regarding Coronary artery disease management options. Thanks for coming in to see us today. Please call us if you have any concerns/questions: [phone] DEEP Ventura MD 02/10/2020 5:46 PM Signed CARDIOTHORACIC SURGERY CONSULT / HANDP SERVICE DATE: [...] and occluded RCA with collateral filling via [id number] collaterals. 2D echo shows ejection fraction of [...] - Esophageal reflux - Generalized osteoarthrosis, unspecified si (more content not included)... Normal [facility] Lab Report: CBC W/Diff, Auto matedon 02-06-2017 Absolute Neut 3.1 X10 3/UL Invalid Interpretation Code 2.0-7.7 [employer] Work Phone: [phone] Basophils/100 WBC Auto (Bld) 0.4 % Invalid Interpretation Code 0-1 [employer] Work Phone: [phone] Eosinophils/100 leukocytes 1.6 % Invalid Interpretation Code 0-5 [employer] Work Phone: [phone] Erythrocyte distribution width Auto Ratio (RBC) 13.7 % Invalid Interpretation Code 11.6-14.6 [employer] Work Phone: [phone] Erythrocytes (RBC) 4.84 10*6/uL Invalid Interpretation Code 4.6-6.2 [employer] Work Phone: [phone] Hematocrit (HCT) 43.4 % Invalid Interpretation Code 40-54 [employer] Work Phone: [phone] Hemoglobin mass conc (Bld) 13.9 g/dL Invalid Interpretation Code 13.0-16.5 [employer] Work Phone: [phone] Immature granulocytes/100 WBC (Bld) 0.400 % Invalid Interpretation Code 0.0-0.9 [employer] Work Phone: [phone] Lymphocytes 1.81 X10 3/UL Invalid Interpretation Code 0.83-4.51 [employer] Work Phone: [phone] Lymphocytes/100 leukocytes 32.4 % Invalid Interpretation Code 19-41 [employer] Work Phone: [phone] MCH 28.7 pg Invalid Interpretation Code 27.0-32.0 [employer] Work Phone: [phone] MCHC mass conc (RBC) 32.0 G/GL Invalid Interpretation Code 32-36 [employer] Work Phone: [phone] MCV 89.7 fL Invalid Interpretation Code 80-94 [employer] Work Phone: [phone] Monocytes/100 leukocytes 10.4 % High 0-10 [employer] Work Phone: [phone] Neutrophils/100 WBC Auto (Bld) 54.8 % Invalid Interpretation Code 47-70 [employer] Work Phone: [phone] 10*3/mm3 Invalid Interpretation Code 150-450 [employer] Phone: [phone] PMV by Willie 9.8 fL Invalid Interpretation Code 6.2-12.0 [employer] Work Phone: [phone] RDW SD 44.7 fL High 35.1-43.9 [employer] Work Phone: [phone] WBC (Leukocytes) 5.6 10*3/uL Invalid Interpretation Code 4.4-11.0 [employer] Work Phone: [phone] Lab Report: T4 Total, Thyrox inon 02-06-2017 Thyroxine (T4) 11.1 ug/dL Invalid Interpretation Code 4.5-12.1 [employer] Work Phone: [phone] Lab Report: Thyroid Stim Hor thomas (TSH)on 02-06-2017 Thyroid stimulating hormone (TSH) 1.63 u[iU]/mL Invalid Interpretation Code 0.358-3.74 [employer] Phone: [phone] Office Visiton 02-06-2017 Dietary management education, guidance, and counseling (procedure) yes Invalid Interpretation Code [employer] Phone: [phone] Documentation of current medications (procedure) Done Invalid Interpretation Code [employer] Phone: [phone] Fall risk assessment No Invalid Interpretation Code [employer] Phone: [phone] Smoking cessation education (procedure) yes Invalid Interpretation Code [employer] Phone: [phone] Tobacco use [facility] Current every day smoker Invalid Interpretation Code [employer] Phone: [phone] Replaced Document: Bharatmark E CG Observationson 02-06-2017 EKG QRS axis 24 deg Invalid Interpretation Code [employer] Phone: [phone] Interpretation Atrial fibrillation ABNORMAL RHYTHM Invalid Interpretation Code [employer] Phone: [phone] P [place] 1 deg Invalid Interpretation Code [employer] Phone: [phone] [place] Interval 0 ms Invalid Interpretation Code [employer] Phone: [phone] Pulse (Heart Rate) 101 /min Invalid Interpretation Code [employer] Work Phone: [phone] QRS Duration 102 ms Invalid Interpretation Code [facility] Work Phone: [phone] QT Interval new path ms Invalid Interpretation Code [facility] [employer] Work Phone: [phone] QTc [place] 413 ms Invalid Interpretation Code [facility] [employer] Work Phone: [phone] T [place] -1 deg Invalid Interpretation Code [facility] [employer] Work Phone: [phone] Replaced Document: Basic Met abolic Profile (BMP)on 12-17-2016 Anion gap 15 mmol/L Invalid Interpretation Code 5-15 [place] [employer] Work Phone: [phone] BUN/Creatinine Ratio 23.2 RATIO High 10-20 [employer] [facility] Work Phone: [phone] Calcium 9.0 mg/dL Invalid Interpretation Code 8.5-10.1 [place] [employer] Work Phone: [phone] Chloride 100 mmol/L Invalid Interpretation Code 98-107 [facility] [employer] Work Phone: [phone] CO2 22.0 mmol/L Invalid Interpretation Code 21.0-32.0 [facility] [employer] Work Phone: [phone] Creatinine 0.99 mg/dL Invalid Interpretation Code 0.70-1.30 [employer] Phone: [phone] eGFR (non-black) 80 mL/min/{1.73_m2} Invalid Interpretation Code >60 [facility] [employer] Work Phone: [phone] eGFR (non-black) 97 mL/min/{1.73_m2} Invalid Interpretation Code >60 [place] [employer] Work Phone: [phone] Glucose mass conc 169 mg/dL High 70-110 [place] [employer] Work Phone: [phone] Potassium molar conc 4.6 mmol/L Invalid Interpretation Code 3.5-5.1 [employer] Work Phone: [phone] Sodium 137 mmol/L Invalid Interpretation Code 136-145 [place] [employer] Work Phone: [phone] Urea nitrogen 23 mg/dL High 7-18 [facility] [employer] Phone: [phone] Office Visiton 12-03-2016 Dietary management education, guidance, and counseling (procedure) yes Invalid Interpretation Code [employer] Work Phone: [phone] Documentation of current medications (procedure) Done Invalid Interpretation Code [employer] Work Phone: [phone] Fall risk assessment No Invalid Interpretation Code [employer] Work Phone: [phone] Clinical Lists Update: 10-10-2016 Alanine aminotransferase (ALT) 48 U/L Invalid Interpretation Code [employer] Work Phone: [phone] Albumin 4.0 g/dL Invalid Interpretation Code [employer] Work Phone: [phone] Alkaline phosphatase (ALP) 54 U/L Invalid Interpretation Code [employer] Work Phone: [phone] Aspartate aminotransferase (AST) 44 U/L High [employer] Work Phone: [phone] Bilirubin (total) 1.1 mg/dL Invalid Interpretation Code [employer] Work Phone: [phone] Cholesterol 245 mg/dL High [employer] Work Phone: [phone] Cholesterol to HDL Ratio 6.28 {ratio} High [employer] Work Phone: [phone] HDL Cholesterol 39 mg/dL Low [employer] Work Phone: [phone] Hemoglobin A1c/Hemoglobin.total mass fraction (Bld) 5.8 % High [employer] Work Phone: [phone] LDL Cholesterol 171 mg/dL High [employer] Work Phone: [phone] LDL to HDL Ratio 4.38 High [employer] Work Phone: [phone] Protein 7.2 g/dL Invalid Interpretation Code [employer] Work Phone: [phone] Triglyceride 173 mg/dL High [employer] Work Phone: [phone] very low density lipoproteins 35 mg/dL Invalid Interpretation Code [employer] Work Phone: [phone]) Clinical Lists Update: [facility] 06-08-2016 Erythrocyte distribution width Auto Ratio (RBC) 13.4 % Invalid Interpretation Code [employer] Work Phone: [phone] Erythrocytes (RBC) 5.00 10*6/uL Invalid Interpretation Code [employer] Work Phone: [phone] Hematocrit (HCT) 43.8 % Invalid Interpretation Code [employer] Work Phone: [phone] Hemoglobin mass conc (Bld) 14.5 g/dL Invalid Interpretation Code [employer] Work Phone: [phone] MCH 29.0 pg Invalid Interpretation Code [employer] Work Phone: [phone] MCHC mass conc (RBC) 33.1 g/dL Invalid Interpretation Code [employer] Work Phone: [phone] MCV 87.6 fL Invalid Interpretation Code [employer] Work Phone: [phone] Platelets 260 10*3/mm3 Invalid Interpretation Code [employer] Work Phone: [phone] PMV by Willie 10.4 fL Invalid Interpretation Code [employer] Work Phone: [phone] WBC (Leukocytes) 5.64 10*3/uL Invalid Interpretation Code [employer] Work Phone: [phone]) Clinical Lists Update: [employer] 01-27-2016 Left ventricular Ejection fraction 65 % Invalid Interpretation Code [employer] Work Phone: [phone]) Office Visiton 05-23-2015 Tobacco use [facility] Never smoker Invalid Interpretation Code [employer] Work Phone: [phone] Lab Report: Prothrombin Time Fingerstickon 08-31-2014 Prothrombin time (PT) Coag time (PPP) 29.3 s High 11.9-14.4 [employer] Work Phone: [phone]) Office Visit: Warfarin [facility] n 08-31-2014 INR Coag RelTime (Bld) 2 to 3 Invalid Interpretation Code [employer] Work Phone: [phone] INR Coag RelTime (Bld) Hospital lab Invalid Interpretation Code [employer] Work Phone: [phone] INR Coag RelTime (PPP) 2.6 {INR} Invalid Interpretation Code [employer] Work Phone: [phone] Prothrombin time (PT) Coag time (PPP) 29.3 s Invalid Interpretation Code [employer] Work Phone: [phone] Office Visiton 08-25-2014 Tobacco smoking status NHIS Current Invalid Interpretation Code [facility] Work Phone: [phone] Office Visiton 05-21-2014 cardiac risk group C Invalid Interpretation Code [facility] Work Phone: [phone] General cardiovascular disease 10Y risk [#] Widener.José Miguel'Ju N/A Invalid Interpretation Code [facility] Work Phone: [phone] Replaced Document: [employer] Observationson 05-21-2014 EKG QRS axis 13 deg Invalid Interpretation Code [facility] Work Phone: [phone] Interpretation Atrial fibrillation -Old inferior infarct. ABNORMAL Invalid Interpretation Code [facility] Work Phone: [phone] P De [place] 1 deg Invalid Interpretation Code [facility] Work Phone: [phone] [place] Interval 0 ms Invalid Interpretation Code [facility] Work Phone: [phone] Pulse (Heart Rate) 77 /min Invalid Interpretation Code [facility] Work Phone: [phone] QRS Duration 100 ms Invalid Interpretation Code [facility] Work Phone: [phone] QT Interval new path ms Invalid Interpretation Code [facility] Work Phone: [phone] QTc [place] 393 ms Invalid Interpretation Code [facility] Work Phone: [phone] T De [place] 29 deg Invalid Interpretation Code [facility] Work Phone: [phone] Office Visit: [facility] 09-22-19 14 Smoking cessation education (procedure) yes Invalid Interpretation Code [facility] Work Phone: [phone] Lab Report: LIVERon 08-07-19 14 Bilirubin (direct) 0.11 mg/dL Normal 0.00-0.30 [facility] Work Phone: [phone] Replaced Document: [employer] Observationson 05-28-2013 Pulse (Heart Rate) 413 ms Invalid Interpretation Code [facility] Work Phone: [phone] Lab Report: PTon 01-05-2013 PTP 33.0 SECONDS Invalid Interpretation Code 11.9-14.4 [facility] Work Phone: [phone] Office Visiton 12-25-2012 Alcoholism counseling (procedure) no Invalid Interpretation Code [facility] Work Phone: Clinical Lists Update: [employer] 10-27-2012 Magnesium 1.8 mg/dL Invalid Interpretation Code [facility] Work Phone: [phone] Thyroid stimulating hormone (TSH) 2.29 u[iU]/mL Invalid Interpretation Code [facility] Work Phone: [phone] Vital Signs Date Time Vital Sign Value Performing Clinician Facility 08-10-2024 08:30-0400 Body height 170.2 cm Regulo Stover MD Work Phone: [facility] 08-10-2024 08:30-0400 Body mass index (BMI) [Ratio] 45.01 kg/m2 Regulo Stover MD Work Phone: [facility] 08-10-2024 08:30-0400 Body weight 130.36 kg Regulo Stover MD Work Phone: [facility] 08-10-2024 08:30-0400 Diastolic blood pressure 64 mm[Hg] Regulo Stover MD Work Phone: [facility] 08-10-2024 08:30-0400 Heart rate 80 /min Regulo Stover MD Work Phone: [facility] 08-10-2024 08:30-0400 Respiratory rate 16 /min Regulo Stover MD Work Phone: [facility] 08-10-2024 08:30-0400 SaO2% (BldA) [Mass fraction] 98 % Regulo Stover MD Work Phone: [facility] 08-10-2024 08:30-0400 Systolic blood pressure 126 mm[Hg] Regulo Stover MD Work Phone: [facility] 06-10-2024 08:38-0400 Body height 170.8 cm Krishna Reynolds MD Work Phone: [facility] 06-10-2024 08:38-0400 Body mass index (BMI) [Ratio] 44.25 kg/m2 Krishna Reynolds MD Work Phone: [facility] 06-10-2024 08:38-0400 Body temperature 97.9 [degF] Krishna Reynolds MD Work Phone: [facility] 06-10-2024 08:38-0400 Body weight 129.1 kg Krishna Reynolds MD Work Phone: [facility] 06-10-2024 08:38-0400 Diastolic blood pressure 60 mm[Hg] Krishna Reynolds MD Work Phone: [facility] 06-10-2024 08:38-0400 Heart rate 64 /min Krishna Reynolds MD Work Phone: [facility] 06-10-2024 08:38-0400 Respiratory rate 18 /min Krishna Reynolds MD Work Phone: [facility] 06-10-2024 08:38-0400 Systolic blood pressure 118 mm[Hg] Krishna Reynolds MD Work Phone: [facility] 02-10-2024 18:01-0500 Body mass index (BMI) [Ratio] 43.3 kg/m2 Krishna Reynolds MD Work Phone: [facility] 02-10-2024 18:01-0500 Body temperature 96.91 [degF] Krishna Reynolds MD Work Phone: [facility] 02-10-2024 18:01-0500 Body weight 125.4 kg Krishna Reynolds MD Work Phone: [facility] 02-10-2024 18:01-0500 Diastolic blood pressure 68 mm[Hg] Krishna Reynolds MD Work Phone: [facility] 02-10-2024 18:01-0500 Heart rate 80 /min Krishna Reynolds MD Work Phone: [facility] 02-10-2024 18:01-0500 Respiratory rate 18 /min Krishna Reynolds MD Work Phone: [facility] 02-10-2024 18:01-0500 Systolic blood pressure 122 mm[Hg] Kirshna Reynolds MD Work Phone: [facility] 12-11-2023 09:17-0400 Body mass index (BMI) [Ratio] 43.33 kg/m2 Krishna Reynolds MD Work Phone: [facility] 12-11-2023 09:17-0400 Body temperature 97.81 [degF] Krishna Reynolds MD Work Phone: [facility] 12-11-2023 09:17-0400 Body weight 125.5 kg Krishna Reynolds MD Work Phone: [facility] 12-11-2023 09:17-0400 Diastolic blood pressure 70 mm[Hg] Krishna Reynolds MD Work Phone: [facility] 12-11-2023 09:17-0400 Heart rate 80 /min Krishna Reynolds MD Work Phone: [facility] 12-11-2023 09:17-0400 Respiratory rate 16 /min Krishna Reynolds MD Work Phone: [facility] 12-11-2023 09:17-0400 Systolic blood pressure 116 mm[Hg] Krishna Reynolds MD Work Phone: [facility] 11-18-2023 08:34-0400 Body mass index (BMI) [Ratio] 44.01 kg/m2 Regulo Stover MD Work Phone: [facility] 11-18-2023 08:34-0400 Body weight 127.46 kg Regulo Stover MD Work Phone: [facility] 11-18-2023 08:34-0400 Diastolic blood pressure 64 mm[Hg] Regulo Stover MD Work Phone: [facility] 11-18-2023 08:34-0400 Heart rate 81 /min Regulo Stover MD Work Phone: [facility] 11-18-2023 08:34-0400 Respiratory rate 16 /min Regulo Stover MD Work Phone: [facility] 11-18-2023 08:34-0400 SaO2% (BldA) [Mass fraction] 97 % Reuglo Stover MD Work Phone: [facility] 11-18-2023 08:34-0400 Systolic blood pressure 118 mm[Hg] Regulo Stover MD Work Phone: [facility] 09-10-2023 11:42-0400 Body mass index (BMI) [Ratio] 44.01 kg/m2 Krishna Reynolds MD Work Phone: [facility] 09-10-2023 11:42-0400 Body temperature 97.2 [degF] Krishna Reynolds MD Work Phone: [facility] 09-10-2023 11:42-0400 Body weight 127.46 kg Krishna Reynolds MD Work Phone: [facility] 09-10-2023 11:42-0400 Diastolic blood pressure 74 mm[Hg] Krishna Reynolds MD Work Phone: [facility] 09-10-2023 11:42-0400 Heart rate 80 /min Krishna Reynolds MD Work Phone: [facility] 09-10-2023 11:42-0400 Respiratory rate 16 /min Krishna Reynolds MD Work Phone: [facility] 09-10-2023 11:42-0400 Systolic blood pressure 116 mm[Hg] Krishna Reynolds MD Work Phone: [facility] 07-04-2023 15:48-0400 Body weight 129.41 kg Krishna Reynolds MD Work Phone: [facility] 07-04-2023 15:48-0400 Diastolic blood pressure 74 mm[Hg] Krishna Reynolds MD Work Phone: [facility] 07-04-2023 15:48-0400 Heart rate 72 /min Krishna Reynolds MD Work Phone: [facility] 07-04-2023 15:48-0400 Respiratory rate 16 /min Krishna Reynolds MD Work Phone: [facility] 07-04-2023 15:48-0400 Systolic blood pressure 120 mm[Hg] Krishna Reynolds MD Work Phone: [facility] 06-07-2023 08:16-0400 Body height 170.2 cm Krishna Reynolds MD Work Phone: [facility] 06-07-2023 08:16-0400 Body weight 129.46 kg Krishna Reynolds MD Work Phone: [facility] 06-07-2023 08:16-0400 Diastolic blood pressure 82 mm[Hg] Krishna Reynolds MD Work Phone: [facility] 06-07-2023 08:16-0400 Heart rate 64 /min Krishna Reynolds MD Work Phone: [facility] 06-07-2023 08:16-0400 Respiratory rate 18 /min Krishna Reynolds MD Work Phone: [facility] 06-07-2023 08:16-0400 Systolic blood pressure 128 mm[Hg] Krishna Reynolds MD Work Phone: [facility] 03-26-2023 10:07-0500 Body mass index (BMI) [Ratio] 46.2 kg/m2 Dr. Krishna Reynolds Work Phone: [facility] 03-26-2023 10:07-0500 Body temperature 95.8 [degF] Dr. Krishna Reynolds Work Phone: [facility] 03-26-2023 10:07-0500 Diastolic blood pressure 77 mm[Hg] Dr. Krishna Reynolds Work Phone: [facility] 03-26-2023 10:07-0500 Heart rate 96 /min Dr. Krishna Reynolds Work Phone: [facility] 03-26-2023 10:07-0500 Respiratory rate 18 /min Dr. Krishna Reynolds Work Phone: [facility] 03-26-2023 10:07-0500 Systolic blood pressure 137 mm[Hg] Dr. Krishna Reynolds Work Phone: [facility] 03-25-2023 00:27-0500 Body weight 133.[address] Krishna Reynolds Work Phone: 2(398)706-090992 [place] [address] 03-19-2023 10:04-0500 Body height 170.[address] Krishna Reynolds Work Phone: 9(902)963-986792 [place] [address] 03-19-2023 10:04-0500 Body mass index (BMI) [Ratio] 46.2 kg/m2 Dr. Krishna Reynolds Work Phone: 9(761)144-212992 [place] [address] 03-19-2023 10:04-0500 Body temperature 96.5 [degF] Dr. Krishna Reynolds Work Phone: 9(435)811-125792 [place] [address] 03-19-2023 10:04-0500 Body weight 133.[address] Krishna Reynolds Work Phone: 0(337)182-914192 [place] [address] 03-19-2023 10:04-0500 Diastolic blood pressure 69 mm[Hg] Dr. Krishna Reynolds Work Phone: 3(665)071-814492 [place] [address] 03-19-2023 10:04-0500 Heart rate 79 /min Dr. Krishna Reynolds Work Phone: 5(786)302-175292 [place] [address] 03-19-2023 10:04-0500 Systolic blood pressure 123 mm[Hg] Dr. Krishna Reynolds Work Phone: 6(124)381-095792 [place] [address] 02-22-2023 00:11-0500 Body temperature 97 [degF] Dr. Krishna Reynolds Work Phone: 9(005)930-470292 [place] [address] 02-22-2023 00:11-0500 Diastolic blood pressure 75 mm[Hg] Dr. Krishna Reynolds Work Phone: 8(575)134-082092 [place] [address] 02-22-2023 00:11-0500 Heart rate 78 /min Dr. Krishna Reynolds Work Phone: 1(927)203-773192 [place] [address] 02-22-2023 00:11-0500 Respiratory rate 16 /min Dr. Krishna Reynolds Work Phone: 4(990)781-625992 [place] [address] 02-22-2023 00:11-0500 Systolic blood pressure 127 mm[Hg] Dr. Krishna Reynolds Work Phone: 7(610)878-814692 [place] [address] 01-29-2023 09:20-0500 Body temperature 98 [degF] Dr. Krishna Reynolds Work Phone: 4(560)981-382392 [place] [address] 01-29-2023 09:20-0500 Body weight 131.[address] Krishna Reynolds Work Phone: 4(376)[phone] [facility] [place] [address] 01-29-2023 09:20-0500 Diastolic blood pressure 71 mm[Hg] Dr. Krishna Reynolds Work Phone: 1(902)954-302892 [place] [address] 01-29-2023 09:20-0500 Heart rate 80 /min Dr. Krishna Reynolds Work Phone: 2(590)364-442492 [place] [address] 01-29-2023 09:20-0500 Respiratory rate 18 /min Dr. Krishna Reynolds Work Phone: 0(082)595-722692 [place] [address] 01-29-2023 09:20-0500 SaO2% (BldA) [Mass fraction] 95 % Dr. Krishna Reynolds Work Phone: 9(226)350-569092 [place] [address] 01-29-2023 09:20-0500 Systolic blood pressure 121 mm[Hg] Dr. Krishna Reynolds Work Phone: 8(040)813-293192 [place] [address] 01-23-2023 00:15-0400 Body temperature 97 [degF] Dr. Krishna Reynolds Work Phone: 3(193)456-978592 [place] [address] 01-23-2023 00:15-0400 Diastolic blood pressure 75 mm[Hg] Dr. Krishna Reynolds Work Phone: 4(798)807-690192 [place] [address] 01-23-2023 00:15-0400 Heart rate 78 /min Dr. Krishna Reynolds Work Phone: 3(918)525-775692 [place] [address] 01-23-2023 00:15-0400 Respiratory rate 16 /min Dr. Krishna Reynolds Work Phone: 4(386)048-063392 [place] [address] 01-23-2023 00:15-0400 Systolic blood pressure 127 mm[Hg] Dr. Krishna Reynolds Work Phone: [facility] 12-23-2022 00:20-0400 Body temperature 97 [degF] Dr. Krishna Reynolds Work Phone: [facility] 12-23-2022 00:20-0400 Diastolic blood pressure 75 mm[Hg] Dr. Krishna Reynolds Work Phone: [facility] 12-23-2022 00:20-0400 Heart rate 78 /min Dr. Krishna Reynolds Work Phone: [facility] 12-23-2022 00:20-0400 Respiratory rate 16 /min Dr. Krishna Reynolds Work Phone: [facility] 12-23-2022 00:20-0400 Systolic blood pressure 127 mm[Hg] Dr. Krishna Reynolds Work Phone: [facility] 12-07-2022 07:01-0400 Body weight 131.09 kg 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 Work Phone: [facility] 12-07-2022 07:01-0400 Diastolic blood pressure 68 mm[Hg] 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 Work Phone: [facility] 12-07-2022 07:01-0400 Heart rate 87 /min 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 Work Phone: [facility] 12-07-2022 07:01-0400 Respiratory rate 20 /min 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 Work Phone: [facility] 12-07-2022 07:01-0400 SaO2% (BldA) [Mass fraction] 97 % 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 Work Phone: [facility] 12-07-2022 07:01-0400 Systolic blood pressure 112 mm[Hg] 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 Work Phone: [facility] 11-29-2022 13:29-0400 Body mass index (BMI) [Ratio] 46 kg/m2 Dr. Krishna Reynolds Work Phone: 7(419)220-706258 [place] [address] 11-29-2022 13:29-0400 Body temperature 96.5 [degF] Dr. Krishna Reynolds Work Phone: 9(304)606-297792 [place] [address] 11-29-2022 13:29-0400 Diastolic blood pressure 70 mm[Hg] Dr. Krishna Reynolds Work Phone: 4(058)769-030192 [place] [address] 11-29-2022 13:29-0400 Heart rate 77 /min Dr. Krishna Reynolds Work Phone: 4(569)345-449392 [place] [address] 11-29-2022 13:29-0400 Respiratory rate 16 /min Dr. Krishna Reynolds Work Phone: 8(559)785-384992 [place] [address] 11-29-2022 13:29-0400 Systolic blood pressure 128 mm[Hg] Dr. Krishna Reynolds Work Phone: 0(487)897-476092 [place] [address] 11-23-2022 00:28-0400 Body temperature 97 [degF] Dr. Krishna Reynolds Work Phone: 7(896)346-980992 [place] [address] 11-23-2022 00:28-0400 Diastolic blood pressure 75 mm[Hg] Dr. Krishna Reynolds Work Phone: 1(021)107-462592 [place] [address] 11-23-2022 00:28-0400 Heart rate 78 /min Dr. Krishna Reynolds Work Phone: 9(135)662-970992 [place] [address] 11-23-2022 00:28-0400 Respiratory rate 16 /min Dr. Krishna Reynolds Work Phone: 4(569)208-980692 [place] [address] 11-23-2022 00:28-0400 Systolic blood pressure 127 mm[Hg] Dr. Krishna Reynolds Work Phone: 2(361)009-285192 [place] [address] 11-23-2022 00:21-0400 Body weight 133.[address] Krishna Reynolds Work Phone: 9(911)580-817592 [place] [address] 11-22-2022 13:44-0400 Body mass index (BMI) [Ratio] 46 kg/m2 Dr. Krishna Reynolds Work Phone: 0(508)708-221692 [place] [address] 11-22-2022 13:44-0400 Body temperature 97.5 [degF] Dr. Krishna Reynolds Work Phone: 0(665)390-096792 [place] [address] 11-22-2022 13:44-0400 Diastolic blood pressure 69 mm[Hg] Dr. Krishna Reynolds Work Phone: 6(489)839-064892 [place] [address] 11-22-2022 13:44-0400 Heart rate 79 /min Dr. Krishna Reynolds Work Phone: 4(648)746-415392 [place] [address] 11-22-2022 13:44-0400 Respiratory rate 22 /min Dr. Krishna Reynolds Work Phone: 3(409)090-805792 [place] [address] 11-22-2022 13:44-0400 Systolic blood pressure 111 mm[Hg] Dr. Krishna Reynolds Work Phone: 5(508)582-782092 [place] [address] 11-15-2022 13:28-0400 Body temperature 97 [degF] Dr. Krishna Reynolds Work Phone: 4(095)317-706192 [place] [address] 11-15-2022 13:28-0400 Diastolic blood pressure 75 mm[Hg] Dr. Krishna Reynodls Work Phone: 0(805)405-497692 [place] [address] 11-15-2022 13:28-0400 Heart rate 78 /min Dr. Krishna Reynolds Work Phone: 9(482)413-040992 [place] [address] 11-15-2022 13:28-0400 Respiratory rate 16 /min Dr. Krishna Reynolds Work Phone: 2(964)406-067792 [place] [address] 11-15-2022 13:28-0400 Systolic blood pressure 127 mm[Hg] Dr. Krishna Reynolds Work Phone: 1(911)534-247192 [place] [address] 11-02-2022 10:00-0400 Body height 170.[address] Krishna Reynolds Work Phone: 5(930)095-503292 [place] [address] 11-02-2022 10:00-0400 Body weight 133.[address] Krishna Reynolds Work Phone: 1(598)402-623092 [place] [address] 10-01-2022 14:47-0400 Body weight 133.36 kg Krishna Reynolds MD Work Phone: [facility] 10-01-2022 14:47-0400 Diastolic blood pressure 68 mm[Hg] Krishna Reynolds MD Work Phone: [facility] 10-01-2022 14:47-0400 Heart rate 72 /min Krishna Reynolds MD Work Phone: [facility] 10-01-2022 14:47-0400 Respiratory rate 18 /min Krishna Reynolds MD Work Phone: [facility] 10-01-2022 14:47-0400 Systolic blood pressure 130 mm[Hg] Krishna Reynolds MD Work Phone: [facility] 01-26-2022 08:07-0400 Body height 169.5 cm 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 Work Phone: [facility] 01-26-2022 08:07-0400 Body weight 134.72 kg 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 Work Phone: [facility] 01-26-2022 08:07-0400 Diastolic blood pressure 62 mm[Hg] 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 Work Phone: [facility] 01-26-2022 08:07-0400 Heart rate 76 /min 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 Work Phone: [facility] 01-26-2022 08:07-0400 Respiratory rate 20 /min 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 Work Phone: [facility] 01-26-2022 08:07-0400 Systolic blood pressure 103 mm[Hg] 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 Work Phone: [facility] 01-15-2022 15:27-0400 Body weight 134.72 kg Regulo Stover MD Work Phone: [facility] 01-15-2022 15:27-0400 Diastolic blood pressure 68 mm[Hg] Regulo Stover MD Work Phone: [facility] 01-15-2022 15:27-0400 Heart rate 91 /min Regulo Stover MD Work Phone: [facility] 01-15-2022 15:27-0400 SaO2% (BldA) [Mass fraction] 96 % Regulo Stover MD Work Phone: [facility] 01-15-2022 15:27-0400 Systolic blood pressure 118 mm[Hg] Regulo Stover MD Work Phone: [facility] 09-08-2021 10:12-0400 Diastolic blood pressure 68 mm[Hg] Krishna Reynolds MD Work Phone: [facility] 09-08-2021 10:12-0400 Systolic blood pressure 110 mm[Hg] Krishna Reynolds MD Work Phone: [facility] 09-08-2021 09:39-0400 Body height 170.2 cm Krishna Reynolds MD Work Phone: [facility] 09-08-2021 09:39-0400 Body temperature 96.1 [degF] Krishna Reynolds MD Work Phone: [facility] 09-08-2021 09:39-0400 Body weight 135.63 kg Krishna Reynolds MD Work Phone: [facility] 09-08-2021 09:39-0400 Heart rate 79 /min Krishna Reynolds MD Work Phone: [facility] 09-08-2021 09:39-0400 Respiratory rate 18 /min Krishna Reynolds MD Work Phone: [facility] 09-08-2021 09:39-0400 SaO2% (BldA) [Mass fraction] 96 % Krishna Reynolds MD Work Phone: [facility] 02-06-2017 10:34-0500 BMI (Body Mass Index) 41.96 kg/m2 [facility] Work Phone: 02-06-2017 10:34-0500 BP [...] BMI (Body Mass Index) 41.2 kg/m2 [facility] Work Phone: 12-03-2016 09:28-0400 BP Diastolic 80 mm[Hg] Mojgan Obando RN [facility] Work Phone: 12-03-2016 09:28-0400 BP Systolic 164 mm[Hg] Mojgan Obando RN [facility] Work Phone: 12-03-2016 09:28-0400 Height 172.72 cm [facility] Work Phone: 12-03-2016 09:28-0400 Pulse (Heart Rate) 84 /min [facility] Work Phone: 12-03-2016 09:28-0400 Respiratory Rate 18 /min [facility] Work Phone: 12-03-2016 09:28-0400 Weight 122.93 kg Mojgan Obando RN [facility] Work Phone: 12-03-2016 09:28-0400 Weight 122.92 kg Mojgan Obando RN [facility] Work Phone: 02-03-2016 09:18-0500 BSA (Body Surface Area) 2.35 m2 Mojgan Obando RN [facility] Work Phone: 12-25-2012 13:18-0400 Height 172.72 cm Mojgan Obando RN [facility] Work Phone: Encounters Encounter Date Encounter Type Care Provider Facility Start: 11-30-2024 End: 11-30-2024 Patient encounter procedure Arabella Heredia DPM Work Phone: Podiatry Comment on above: DM (diabetes mellitu s), 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 Krishna Reynolds MD Work Phone: -Cardiac Rehab Start: 11-19-2024 End: 11-22-[address] Krishna Reynolds MD -Cardiac Rehab Work Phone: Start: 11-04-2024 End: 11-04-2024 Refill Krishna Reynolds MD Work Phone: Internal [facility] [place] Comment on above: Refill Request Start: 10-22-2024 End: 10-22-2024 Follow-up encounter Regulo Stover MD Work Phone: [facility] Cardiology [place] Comment on above: Results Start: 10-22-2024 End: 10-22-[address] Krishna Reynolds MD Work Phone: -Cardiac Rehab Start: 10-22-2024 End: 10-22-[address] 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 Krishna Reynolds MD Work Phone: -Cardiac Rehab Start: 09-17-2024 End: 09-21-[address] Krishna Reynolds MD -Cardiac Rehab Work Phone: Start: 08-24-2024 End: 08-24-2024 Refill Krishna Reynolds MD Work Phone: Family [facility] Comment on above: Refill Request Start: 08-20-2024 End: 08-22-[address] Krishna Reynolds MD Work Phone: [facility] Work Phone: Start: 08-20-2024 End: 08-22-[address] Krishna Reynolds MD -Cardiac Rehab Work Phone: Start: 08-18-[address] Krishna smith MD -Cardiac Rehab Work Phone: Start: 08-12-2024 End: 08-12-[address] Krishna Reynolds MD Work Phone: [facility] Work Phone: Start: 08-12-2024 End: 08-12-[address] 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 (Primary Dx); Chronic diastolic congestive heart failure (HCC); Atherosclerosis of aorta; Persistent atrial fibrillation (HCC); Essential hypertension; Other hyperlipidemia; Statin intolerance; ROBIN (dyspnea on exertion) Start: 08-10-2024 End: 08-10-2024 ambulatory KRISHNA REYNOLDS Facility:[facility] Start: 08-04-2024 End: 08-04-2024 Telephone encounter Krishna Reynolds MD Work Phone: Internal Medicine [place] Comment on above: Insurance Authorizat ion Start: 07-21-2024 End: 2024 ambulatory Krishna Reynolds Facility:[facility] Start: 07-21-2024 End: [address] Krishna Reynolds MD -Cardiac Rehab Work Phone: Start: 06-18-2024 End: 06-22-[address] Krishna Reynolds MD Work Phone: [facility] Work Phone: Start: 06-18-2024 End: 06-22-[address] Krishna Reynolds MD -Cardiac Rehab Work Phone: Start: 06-11-[address] Krishna smith MD -Cardiac Rehab Work Phone: Start: 06-10-2024 End: 06-10-2024 ambulatory KRISHNA REYNOLDS Facility:[facility] Start: 06-10-2024 End: 06-10-2024 Patient encounter procedure Krishna Reynolds MD Work Phone: Internal [facility] [place] Comment on above: Medicare annual well ness visit, subsequent (Primary Dx); Encounter for immunization; Chronic diastolic congestive heart failure (HCC); Atrial fibrillation, unspecified type (HCC); Class 3 severe obesity due to excess calories with serious comorbidity and body mass index (BMI) of 45.0 to 49.9 in adult (HCC); Type 2 diabetes mellitus with diabetic neuropathy, with long-term current use of insulin (HCC); Essential hypertension; Coronary artery disease of [place] artery of [place] heart with stable angina pectoris (HCC); Persistent atrial fibrillation (HCC); Venous (peripheral) insufficiency; Other hyperlipidemia Start: 06-03-2024 End: 06-03-[address] Krishna Reynolds MD Work Phone: [facility] Work Phone: Start: 06-03-2024 End: 06-03-[address] 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 Krishna Reynolds MD -Cardiac Rehab Work Phone: Start: 04-30-2024 End: 04-30-2024 Refill Krishna Reynolds MD Work Phone: [facility] [place] Start: 04-23-2024 End: 04-24-2024 ambulatory Krishna Reynolds Facility:[facility] Start: 04-23-2024 End: 04-24-[address] Krishna Reynolds MD -Cardiac Rehab Work Phone: Start: 04-14-2024 End: 04-14-2024 Telephone encounter Krishna Reynolds MD Work Phone: Internal [facility] [place] Comment on above: Letter Start: 04-04-2024 ambulatory Krishna Reynodls Facili ty:[facility] Start: 03-24-2024 End: 03-24-2024 ambulatory Krishna Reynolds Facility:[facility] Start: 03-24-2024 End: 03-24-[address] Krishna Reynolds MD -Cardiac Rehab Work Phone: Start: 03-07-2024 End: 03-09-2024 Refill Krishna Reynolds MD Work Phone: Family [facility] Comment on above: Refill Request Start: 02-18-2024 End: 02-22-2024 ambulatory Krishna Reynolds Facility:[facility] Start: 02-18-2024 End: 02-22-[address] Krishna Reynolds MD -Cardiac Rehab Work Phone: Start: 02-10-2024 End: 02-10-2024 ambulatory KRISHNA REYNOLDS Facility:[facility] Start: 02-10-2024 End: 02-10-2024 Office outpatient visit 15 minutes Krishna Reynolds MD Work Phone: Internal [facility] [place] Comment on above: Type 2 diabetes cheyanne itus with diabetic neuropathy, with long- term current use of insulin (HCC) (Primary Dx) Start: 01-23-2024 End: 01-23-2024 ambulatory Krishna Reynolds Facility:[facility] Start: 01-06-2024 End: 01-23-2024 Telephone encounter Regulo Stover MD Work Phone: [address] [place] [address] Comment on above: Patient Question; Me dication Problem Start: 12-19-2023 End: 12-23-2023 ambulatory Krishna Reynolds Facility:[facility] Start: 12-16-2023 End: 12-16-2023 Patient encounter procedure [facility] Provider [facility] Start: 12-12-2023 End: 12-12-2023 Telephone encounter Krishna Reynolds MD Work Phone: Internal Medicine [place] Comment on above: FMLA Paperwork Start: 12-11-2023 End: 12-11-2023 ambulatory KRISHNA REYNOLDS Facility:[facility] Start: 12-11-2023 End: 12-11-2023 Office outpatient visit 25 minutes Krishna Reynolds MD Work Phone: Internal [facility] [place] Comment on above: Type 2 diabetes cheyanne itus with diabetic neuropathy, with long- term current use of insulin (HCC) (Primary Dx); Coronary artery disease involving [place] heart without angina pectoris, unspecified vessel or lesion type; Chronic diastolic congestive heart failure (HCC); Essential hypertension; Screening for depression; Encounter for screening examination for other mental health and behavioral disorders Start: 12-04-2023 End: 12-04-2023 ambulatory Krishna Reynolds Facility:[facility] Start: 12-02-2023 End: 12-03-2023 Telephone encounter Regulo Stover MD Work Phone: Cardiology Comment on above: Patient Update Start: 11-20-2023 End: 11-20-2023 Refill Krishna Reynolds MD Work Phone: Internal [facility] [place] Comment on above: Refill Request Start: 11-18-2023 End: 11-18-2023 Office outpatient visit 15 minutes Arabella Heredia DPM Work Phone: Podiatry Comment on above: DM (diabetes mellitu s), 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); [place] and callosities Start: 11-18-2023 End: 11-18-2023 Patient encounter procedure Regulo Stover MD Work Phone: Cardiology Comment on above: 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) (Primary Dx); Chronic diastolic congestive heart failure (HCC); Persistent atrial fibrillation (HCC); Essential hypertension; Other hyperlipidemia; Class 3 severe obesity due to excess calories with serious comorbidity and body mass index (BMI) of 45.0 to 49.9 in adult (HCC); Statin intolerance; Atherosclerosis of aorta (HCC) Start: 09-16-2023 End: 09-16-2023 Patient encounter procedure Kaila Jimenez PA-C Work Phone: Orthopaedics Comment on above: Elbow mass, right Start: 09-16-2023 End: 09-16-2023 Subsequent hospital visit by physician [facility] Work Phone: Radiology Comment on above: Right elbow pain [M2 5.521] Start: 09-11-2023 Orders Only Kaila wilson PA-C Work Phone: Orthopaedics Comment on above: Right elbow pain (Pr imary Dx) Start: 09-10-2023 End: 09-10-2023 Patient encounter procedure Krishna Reynolds MD Work Phone: Internal [facility] [place] Comment on above: Elbow mass, right (P rimary Dx); Essential hypertension Start: 07-29-2023 Telephone encounter Krishna abernathy MD Work Phone: Internal [facility] [place] Comment on above: Appointment Start: 07-25-2023 Telephone encounter Krishna abernathy MD Work Phone: Internal [facility] [place] Start: 07-23-2023 End: 07-23-2023 ambulatory [facility] Work Phone: Start: 07-23-2023 End: 07-23-2023 Discharged Recurring [facility]-Cardiac Rehab Work Phone: Start: 2023 End: 2023 Subsequent hospital visit by physician [facility] Work Phone: Radiology Comment on above: Hydrocele, acquired [N43.3] Start: 07-04-2023 End: 07-04-2023 Patient encounter procedure Krishna Reynolds MD Work Phone: Internal [facility] Comment on above: Hydrocele, acquired (Primary Dx); Other hyperlipidemia Start: 06-26-2023 Telephone encounter Krishna abernathy MD Work Phone: Internal [facility] Comment on above: Orders Start: 06-20-2023 End: 06-23-2023 ambulatory [facility] Work Phone: Start: 06-20-2023 End: 06-23-2023 Discharged Recurring [facility]-Cardiac Rehab Work Phone: Start: 06-13-2023 Refill Krishna ivy MD Work Phone: Internal [facility] Comment on above: Refill Request Start: 06-07-2023 End: 06-07-2023 Patient encounter procedure Krishna Reynolds MD Work Phone: Internal [facility] Comment on above: Medicare annual well [facility] visit, subsequent (Primary Dx); Coronary artery disease of [place] artery of [place] heart with stable angina pectoris (HCC); Other hyperlipidemia; Statin intolerance; Atherosclerosis of aorta (HCC); Essential hypertension; Type 2 diabetes mellitus with diabetic neuropathy, with long-term current use of insulin (HCC); Chronic diastolic congestive heart failure (HCC); Persistent atrial fibrillation (HCC) Start: 06-04-2023 Registered Recurring [facility]-Cardiac Rehab Work Phone: Start: 05-31-2023 End: 05-31-2023 ambulatory [facility] Work Phone: Start: 05-31-2023 End: 05-31-2023 Patient encounter procedure [facility]-Laboratory Work Phone: Start: 05-23-2023 End: 05-23-[address] Krishna Reynolds Work Phone: [facility] Work Phone: Start: 05-23-2023 End: 05-23-[address] Krishna Reynolds Work Phone: [facility]-Cardiac Rehab Work Phone: Start: 05-22-2023 Telephone encounter Krishna abernathy MD Work Phone: [facility] [place] Start: 04-23-2023 End: 04-24-[address] Krishna Reynolds Work Phone: [facility]-Cardiac Rehab Work Phone: Start: 03-26-2023 End: 03-26-[address] Krishna Reynolds Work Phone: [facility] Work Phone: Start: 03-26-2023 End: 03-26-[address] Krishna Reynolds Work Phone: [facility] Work Phone: Start: 03-26-[address] Tres Reynolds Work Phone: [facility]-Cardiac Rehab Work Phone: Start: 03-21-2023 End: 03-24-[address] Krishna Reynolds Work Phone: [facility] Work Phone: Start: 03-21-2023 End: 03-24-[address] Krishna Reynolds Work Phone: [facility]-Cardiac Rehab Work Phone: Start: 03-19-2023 End: 03-24-2023 Discharged Recurring Dr. rKishna Reynolds Work Phone: [facility] Work Phone: Start: 03-19-[address] Tres Reynolds Work Phone: [facility] Work Phone: Start: 03-13-2023 Refill Regulo ríos MD Work Phone: [facility] Home Delivery Comment on above: Refill Request Start: 02-21-2023 End: 02-21-[address] Krishna Reynolds Work Phone: [facility] Work Phone: Start: 02-21-2023 End: 02-21-[address] Krishna Reynolds Work Phone: [facility] Work Phone: Start: 02-19-[address] Tres Reynolds Work Phone: [facility] Work Phone: Start: 02-15-2023 End: 02-15-[address] Krishna Reynolds Work Phone: [facility] Work Phone: Start: 02-15-2023 End: 02-15-[address] Krishna Reynolds Work Phone: [facility] Work Phone: Start: 01-29-2023 End: 01-29-[address] Krishna Reynolds Work Phone: [facility] Work Phone: Start: 01-22-2023 End: 01-22-[address] Krishna Reynolds Work Phone: [facility] Work Phone: Start: 01-22-2023 End: 01-22-[address] Krishna Reynolds Work Phone: [facility] Work Phone: Start: 01-14-2023 ambulatory Nhung Longo [facility] [place] Comment on above: Population Health [facility] ([employer]) Start: 01-14-2023 Telephone encounter Krishna abernathy MD Work Phone: [facility] [place] Comment on above: Results Start: 12-20-2022 End: 12-22-[address] Krishna Reynolds Work Phone: [facility] Work Phone: Start: 12-20-2022 End: 12-22-[address] Krishna Reynolds Work Phone: [facility] Work Phone: Start: 12-07-2022 End: 12-07-2022 Patient encounter procedure 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 Work Phone: [facility] [place] Comment on above: Type 2 diabetes cheyanne itus with diabetic neuropathy, with long- term current use of insulin ([facility]) (Primary Dx); Essential hypertension; Other hyperlipidemia; Venous (peripheral) insufficiency; Chronic diastolic congestive heart failure ([facility]); Class 3 severe obesity due to excess calories with serious comorbidity and body mass index (BMI) of 45.0 to 49.9 in adult ([facility]); Screening for colon cancer; Encounter for immunization Start: 12-06-2022 Refill Krishna ivy MD Work Phone: [facility] [place] Comment on above: Refill Request Start: 12-04-[address] Tres Reynolds Work Phone: [facility] Work Phone: Start: 11-30-2022 End: 11-30-[address] Krishna Reynolds Work Phone: [facility] Work Phone: Start: 11-30-2022 End: 11-30-[address] Krishna Reynolds Work Phone: [facility] Work Phone: Start: 11-29-2022 End: 11-29-[address] Krishna Reynolds Work Phone: [facility] Work Phone: Start: 11-29-2022 Non-patient / Non-visit Dr. Jennifer Reynolds Work Phone: [facility] Start: 11-23-2022 Non-patient / Non-visit Dr. Jennifer Reynolds Work Phone: [facility] Start: 11-22-2022 End: 11-22-[address] Krishna Reynolds Work Phone: [facility] Work Phone: Start: 11-22-2022 End: 11-22-[address] Krishna Reynolds Work Phone: [facility] Work Phone: Start: 11-19-2022 End: 11-19-2022 Patient encounter procedure Arabella Heredia DPM Work Phone: Podiatry Comment on above: Corns and callositie s (Primary Dx); DM (diabetes mellitus), type 2 with neurological complications (HCC) Start: 11-16-2022 Non-patient / Non-visit Dr. Jennifer Reynolds Work Phone: [facility] Start: 11-15-2022 Non-patient / Non-visit Dr. Jennifer Reynolds Work Phone: [facility] Start: 11-02-2022 Non-patient / Non-visit Dr. Jennifer Reynolds Work Phone: [facility] Start: 10-25-2022 Telephone encounter Krishna abernathy MD Work Phone: [facility] [place] Comment on above: Referral Request Start: 10-23-2022 Telephone encounter Krishna abernathy MD Work Phone: [facility] [place] Comment on above: Patient Question Start: 10-18-2022 Telephone encounter Krishna abernathy MD Work Phone: [facility] [place] Comment on above: FMLA Paperwork Start: 10-18-2022 End: 10-22-2022 [facility] Work Phone: Start: 10-18-2022 End: 10-22-2022 Discharged Recurring [facility] Work Phone: Start: 10-10-2022 Telephone encounter Krishna abernathy MD Work Phone: [facility] [place] Comment on above: Patient Question Start: 10-01-2022 End: 10-01-2022 Patient encounter procedure Krishna Reynolds MD Work Phone: [facility] [place] Comment on above: Ulcer of right leg, limited to breakdown of skin (HCC) (Primary Dx); Venous (peripheral) insufficiency; Chronic diastolic congestive heart failure (HCC); Type 2 diabetes mellitus with diabetic neuropathy, with long-term current use of insulin (HCC); Need for COVID-19 vaccine; Essential hypertension Refill Request Start: 09-20-2022 End: 09-21-2022 [facility] Work Phone: Start: 09-20-2022 End: 09-21-2022 Discharged Recurring [facility] Work Phone: Start: 09-12-2022 Refill Krishna ivy MD Work Phone: [facility] Comment on above: Refill Request Start: 09-06-2022 Registered Recurring [facility] Start: 08-27-2022 End: 08-27-2022 Patient encounter procedure Echocardiogram Wstr Work Phone: Cardiology Comment on above: Chronic diastolic co ngestive heart failure (HCC); ROBIN (dyspnea on exertion) Start: 08-21-2022 End: 08-22-2022 [facility] Work Phone: Start: 08-21-2022 End: 08-22-2022 Discharged Recurring [facility] Start: 08-17-2022 End: 08-17-2022 ambulatory [facility] Work Phone: Start: 08-17-2022 End: 08-17-2022 Patient encounter procedure [facility] Start: 08-06-2022 Refill Krishna ivy MD Work Phone: [facility] [place] Comment on above: Refill Request Start: 07-23-2022 Telephone encounter Krishna abernathy MD Work Phone: [facility] [place] Comment on above: letter to be excused (Jury duty) Start: 07-19-2022 End: 2022 Discharged Recurring [facility] Start: 06-21-2022 End: 06-22-2022 ambulatory [facility] Work Phone: Start: 06-21-2022 End: 06-22-2022 Discharged Recurring [facility] Start: 06-01-2022 End: 06-01-2022 Patient encounter procedure Krishna Reynolds MD Work Phone: Internal [facility] Comment on above: Statin intolerance ( Primary Dx); Type 2 diabetes mellitus with diabetic neuropathy, with long-term current use of insulin (HCC); Chronic diastolic congestive heart failure (HCC); Essential hypertension; Coronary artery disease of [place] artery of [place] heart with stable angina pectoris (HCC); Other hyperlipidemia Start: 05-29-2022 Registered Recurring [facility] Start: 05-25-2022 End: 05-25-2022 ambulatory [facility] Work Phone: Start: 05-25-2022 End: 05-25-2022 Patient encounter procedure [facility] Start: 05-22-2022 End: 05-22-2022 ambulatory [facility] Work Phone: Start: 05-22-2022 End: 05-22-2022 Discharged Recurring [facility] Start: 04-24-2022 End: 04-24-2022 Discharged Recurring [facility] Start: 04-10-2022 ambulatory N[facility] Longo [facility] [place] Comment on above: Population Health Na vigation Outreach ([facility] [place] [facility]) Start: 03-22-2022 End: 03-24-2022 ambulatory [facility] Work Phone: Start: 03-22-2022 End: 03-24-2022 Discharged Recurring [facility] Start: 03-15-2022 End: 03-15-2022 Nursing evaluation of patient and report Regulo Lamas RN Work Phone: Endocrinology Comment on above: Type 2 diabetes cheyanne itus with diabetic neuropathy, with long- term current use of insulin (HCC) (Primary Dx) Start: 03-01-2022 Registered Recurring [facility] Start: 02-20-2022 End: 02-21-2022 Discharged Recurring [facility] Start: 02-20-2022 End: 02-21-2022 ambulatory [facility] Work Phone: Start: 02-20-2022 End: 02-20-2022 Patient encounter procedure [facility] Start: 02-05-2022 Telephone encounter Krishna abernathy MD Work Phone: [facility] Comment on above: Orders Start: 01-29-2022 Telephone encounter Krishna abernathy MD Work Phone: [facility] [place] Comment on above: Orders Start: 01-26-2022 End: 01-26-2022 Patient encounter procedure 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 Work Phone: [facility] [place] Comment on above: Medicare annual well ness visit, subsequent (Primary Dx); Type 2 diabetes mellitus with diabetic neuropathy, with long-term current use of insulin (HCC); Balance problem; Gait abnormality; Chronic diastolic congestive heart failure (HCC) Start: 01-22-2022 Telephone encounter Regulo Stover MD Work Phone: Cardiology Comment on above: Medication Problem Start: 01-18-2022 End: 01-22-2022 ambulatory [facility] Work Phone: Start: 01-18-2022 End: 01-22-2022 Discharged Recurring [facility] Start: 01-16-2022 Registered Recurring [facility] Start: 01-15-2022 End: 01-15-2022 Patient encounter procedure Regulo Stover MD Work Phone: Cardiology Comment on above: 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) (Primary Dx); Persistent atrial fibrillation (HCC); Chronic diastolic congestive heart failure (HCC); Essential hypertension; Other hyperlipidemia; Statin intolerance; Class 3 severe obesity due to excess calories with serious comorbidity and body mass index (BMI) of 45.0 to 49.9 in adult (HCC); Dyspnea on exertion; Screening for ischemic heart disease Start: 01-12-2022 End: 01-12-2022 ambulatory [facility] Work Phone: Start: 01-12-2022 End: 01-12-2022 Patient encounter procedure [facility] Start: 12-21-2021 End: 12-22-2021 [facility] Work Phone: Start: 12-21-2021 End: 12-22-2021 Discharged Recurring [facility] Start: 11-21-2021 End: 11-22-2021 ambulatory [facility] Work Phone: Start: 11-21-2021 End: 11-22-2021 Discharged Recurring [facility] Start: 11-13-2021 End: 11-13-2021 Patient encounter procedure Arabella Heredia DPChristina Work Phone: Podiatry Comment on above: Corns and callositie s (Primary Dx); DM (diabetes mellitus), type 2 with neurological complications (HCC) Start: 10-19-2021 End: 10-22-2021 Discharged Recurring [facility] Start: 10-18-2021 Refill Regulo ríos MD Work Phone: Cardiology Comment on above: Refill Request Start: 10-12-2021 Telephone encounter Krishna abernathy MD Work Phone: [facility] [place] Comment on above: FMLA Paperwork Start: 10-11-2021 Telephone encounter Deandra angulo APRN.CAR CHECKER Work Phone: Endocrinology Comment on above: Connor Marvin (Refil l) Start: 09-21-2021 End: 09-21-2021 Discharged Recurring [facility] Start: 09-08-2021 End: 09-08-2021 Patient encounter procedure Krishna Reynolds MD Work Phone: [facility] [place] Comment on above: Type 2 diabetes cheyanne itus with diabetic neuropathy, with long- term current use of insulin (HCC) (Primary Dx); Essential hypertension; Chronic diastolic congestive heart failure (HCC); Coronary artery disease of [place] artery of [place] heart with stable angina pectoris (HCC); Persistent atrial fibrillation (HCC); Need for vaccination Start: 08-24-2021 Registered Recurring [facility] Start: 08-23-2021 End: 08-23-2021 Patient encounter procedure [facility] Start: 08-22-2021 End: 08-22-2021 Discharged Recurring [facility] Start: 08-22-2021 End: 08-22-2021 Patient encounter procedure [facility] Start: 08-05-2021 Refill Regulo ríos MD Work Phone: Cardiology Comment on above: Refill Request Start: 07-20-2021 Refill Leila BishopCAR CHECKER Work Phone: [facility] [place] Comment on above: Refill Request Start: 07-20-2021 End: 2021 Discharged Recurring [facility] Start: 07-10-2021 Refill Krishna ivy MD Work Phone: [facility] [place] Comment on above: Refill Request medication clarifica tion Start: 06-22-2021 End: 06-22-2021 Discharged Recurring [facility] Start: 05-18-2021 End: 05-18-2021 Patient encounter procedure [facility] Start: 05-16-2021 End: 05-22-2021 Discharged Recurring [facility] Start: 04-20-2021 End: 04-24-2021 Discharged Recurring [place] [facility] Start: 09-05-2020 End: 09-05-2020 Subsequent hospital visit by physician Xr [facility] Work Phone: Radiology Comment on above: Pain [R52] Start: 06-21-2020 End: 06-21-2020 [facility]: [facility] Comment on above: Chronic diastolic co ngestive heart failure (HCC) [I50.32] Procedures Date Procedure Procedure Detail Performing Clinician Start: 10-19-2024 Myocardial spect multiple studies Regulo Stover MD Work Phone: Start: 08-12-[address] inorganic phosphate measurement [address] Krishna Reynolds MD Work Phone: Start: 06-10-2024 PFIZER-BIONTECH COVID-19 VACCINE AGE 12+ YR (COMIRNATY) Krishna Reynolds MD Work Phone: Start: 06-03-2024 Urine microalbumin/creatinine ratio measurement Dr. Krishna Reynolds MD Work Phone: Start: 12-11-2023 Adult depression screening assessment Krishna Reynolds MD Work Phone: Start: 12-07-2022 INFLUENZA VACCINE, PRSV FREE, AGE 65+ YR, HIGH DOSE, QUADRIVALENT (FLUZONE HIGH-DOSE) 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 Work Phone: Start: 11-30-2022 Hemoglobin A1c/Hemoglobin.total in Blood [facility] Provider Start: 10-01-2022 PFIZER-BIONTECH COVID-19 BIVALENT VACCINE, AGE 12+ YR Krishna Reynolds MD Work Phone: Start: 08-27-2022 Echo tthrc r-t 2d w/wom-mode compl spec&colr d Regulo Stover MD Work Phone: Start: 08-27-2022 LVEF TRANSTHORACIC ECHO Regulo pierce MD Work Phone: Start: 11-30-2020 Adult depression screening assessment Krishna Reynolds MD Work Phone: Start: 09-05-2020 Radex foot complete minimum 3 views Arabella Heredia DPM Work Phone: Start: 06-21-2020 Radiologic exam chest 2 views Krishna Reynolds MD Work Phone: Start: 09-17-2019 [...] MD Start: 12-03-2016 End: 12-24-2016 *BMP Son eDluna MD Start: 12-03-2016 End: 12-03-2016 Follow Up [...] Son Deluna MD Start: 05-23-2015 End: 02-06-2017 SINCEREM Son Deluna MD Start: 11-16-2014 End: 11-17-2014 Documentation of current medications Brea Sanders PA-C Work Phone: Start: 11-16-2014 End: 02-06-2017 Follow Up Appt 6 months Brea Sanders PA-C Work Phone: Start: 11-16-2014 End: 05-23-2015 Follow Up Appt Other Brea Sanders PA-C Work Phone: Start: 11-16-2014 [...] MD Start: 05-21-2014 End: 05-21-2014 MMM Son Dleuna MD Start: 01-06-2014 End: 02-22-2014 INR in Platelet poor plasma by Coagulation assay Son Deluna MD Start: 09-21-2013 End: 02-22-2014 *Hepatic Function Panel Brea Sanders PA-C Work Phone: Start: 09-21-2013 End: 09-21-2013 Follow Up Appt 6 months Brea Sanders PA-C Work Phone: Start: 09-21-2013 End: 02-22-2014 Lipid 1996 panel - Serum or Plasma Brea Sanders PA-C Work Phone: Start: 09-21-2013 End: 09-21-2013 PFM Brea Sanders PA-C Work Phone: Start: 05-28-2013 End: [...] End: 11-09-2014 Follow Up Appt Other Brea Sanders PA-C Work Phone: Start: 02-13-2013 End: 08-06-2013 [...] 12-25-2012 End: 02-27-2013 PFM Son Deluna MD History of placement of stent for coronary artery disease History of coronary artery stent placement Dr. Krishna Reynolds Work Phone: History of tonsillectomy History of tonsillectomy Dr. Krishna Reynolds Work Phone: Plan of Treatment Date Care Activity Detail Author Start: 06-11-2034 Urine microalbumin profile DTaP,Tdap,Td Vaccine (3 - Td or Tdap) [facility] Start: 12-18-2025 Cologuard (FIT-DNA) Cologuard (FIT-DNA) [facility] Start: 12-18-2025 Colorectal Cancer Screening Colorectal Cancer Screening [facility] Start: 12-18-2025 Screening for malignant neoplasm of colon [facility] Start: 08-10-2025 BP Controlled (<130/80) BP Controlled (<130/80) [facility] Start: 06-10-2025 Annual PCP Team Chronic Disease Visit Annual PCP Team Chronic Disease Visit [facility] Start: 06-10-2025 BP Controlled (<130/80) BP Controlled (<130/80) [facility] Start: 06-10-2025 Diabetic foot examination Diabetic Foot Exam [facility] Start: 06-10-2025 Medicare Annual Wellness Visit Medicare Annual Wellness Visit [facility] Start: 06-03-2025 Hepatitis B screening Urine Albumin:Creatinine Ratio [facility] Start: 06-03-2025 Hepatitis B surface antibody level LDL Cholesterol [facility] Start: 05-31-2025 End: 05-31-2025 Patient encounter procedure 05/31/2025 10:00 AM EDT Office Visit Podiatry [address] [place] [address] Arabella Heredia DPM [address] [facility] [address] [place] [address] Follow Up Podiatry Comment on above: Follow Up Start: 05-11-2025 Glaucoma screening Dilated Retinal Exam [facility] Start: 03-22-2025 End: 03-22-2025 Patient encounter procedure 03/22/2025 11:40 AM EST Office Visit Cardiology [address] [place] [address] Regulo Stover MD [address] [address] 6 month follow up after NST Cardiology Comment on above: 6 month follow up after NST Start: 02-09-2025 Annual PCP Team Chronic Disease Visit Annual PCP Team Chronic Disease Visit [facility] Start: 02-09-2025 BP Controlled (<130/80) BP Controlled (<130/80) [facility] Start: 12-11-2024 End: 12-11-2024 Patient encounter procedure [facility] [place] Comment on above: 6 month follow-up Start: 12-10-2024 Annual PCP Team Chronic Disease Visit Annual PCP Team Chronic Disease Visit [facility] Start: 12-10-2024 Anxiety Screening Anxiety Screening [facility] Start: 12-10-2024 BP Controlled (<130/80) BP Controlled (<130/80) [facility] Start: 12-10-2024 Depression Screening Depression Screening [facility] Start: 12-04-2024 Hemoglobin A1c measurement HbA1C [facility] Start: 11-30-2024 End: 11-30-2024 Patient encounter procedure 11/30/2024 10:00 AM EDT Office Visit Podiatry [address] [place] [address] Arabella Heredia DPM [address] [place] [address] 6mo follow up Podiatry Comment on above: 6mo follow up Start: 11-23-2024 End: 02-22-2025 Basic metabolic 2000 panel - Serum or Plasma BASIC METABOLIC PANEL Lab Routine Type 2 diabetes mellitus with diabetic neuropathy, with long-term current use of insulin (HCC) Expected: 11/23/2024, Expires: 02/22/2025 [facility] Work Phone: Comment on above: Expected: 11/23/2024, Expires: Start: 11-23-2024 End: 02-22-2025 Hemoglobin A1c in Blood HEMOGLOBIN A1C Lab Routine Type 2 diabetes mellitus with diabetic neuropathy, with long-term current use of insulin (HCC) Expected: 11/23/2024, Expires: 02/22/2025 [facility] Comment on above: Expected: 11/23/2024, Expires: Start: 11-23-2024 [facility] Start: 11-23-2024 End: 02-22-2025 Lipid 1996 panel - Serum or Plasma LIPID PANEL, FASTING Lab Routine Other hyperlipidemia Expected: 11/23/2024, Expires: 02/22/2025 [facility] Comment on above: Expected: 11/23/2024, Expires: Start: 11-17-2024 BP Controlled (<130/80) BP Controlled (<130/80) [facility] Start: 10-19-2024 End: 10-19-2024 Nursing evaluation of patient and report Cardiology Comment on above: Coronary artery disease of [place] artery of [place] heart with stable angina pect... Start: 10-19-2024 End: 10-19-2024 Patient encounter procedure Nuclear Medicine Comment on above: Coronary artery disease of [place] artery of [place] heart with stable angina pect... Start: 09-09-2024 Annual PCP Team Chronic Disease Visit Annual PCP Team Chronic Disease Visit [facility] Start: 09-09-2024 BP Controlled (<130/80) BP Controlled (<130/80) [facility] Start: 08-10-2024 End: 08-10-2024 Patient encounter procedure Cardiology Comment on above: 8 month follow up Start: 07-03-2024 Annual PCP Team Chronic Disease Visit Annual PCP Team Chronic Disease Visit [facility] Start: 07-03-2024 BP Controlled (<130/80) BP Controlled (<130/80) [facility] Start: 06-10-2024 End: 06-10-2024 Patient encounter procedure 06/10/2024 8:40 AM EDT Office Visit Internal Medicine [place] [address] [facility] [place] [address] Krishna Reynolds MD [address] [place] [address] Annual Medicare/6 month follow-up [facility] [place] Comment on above: Annual Medicare/6 month follow-up Start: 06-09-2024 End: 09-08-2024 Comprehensive metabolic 2000 panel - Serum or Plasma COMPREHENSIVE METABOLIC PANEL Lab Routine Type 2 diabetes mellitus with diabetic neuropathy, with long-term current use of insulin (HCC) Expected: 06/09/2024, Expires: 09/08/2024 [facility] Work Phone: Comment on above: Expected: 06/09/2024, Expires: Start: 06-09-2024 End: 09-08-2024 Hemoglobin A1c in Blood HEMOGLOBIN A1C Lab Routine Type 2 diabetes mellitus with diabetic neuropathy, with long-term current use of insulin (HCC) Expected: 06/09/2024, Expires: 09/08/2024 [facility] Comment on above: Expected: 06/09/2024, Expires: Start: 06-09-2024 End: 09-08-2024 Lipid 1996 panel - Serum or Plasma LIPID PANEL BASIC Lab Routine Type 2 diabetes mellitus with diabetic neuropathy, with long-term current use of insulin (HCC) Expected: 06/09/2024, Expires: 09/08/2024 [facility] Comment on above: Expected: 06/09/2024, Expires: Start: 06-09-2024 End: 09-08-2024 Microalbumin/Creatinine [Mass Ratio] in Urine ALBUMIN/CREATININE RATIO, URINE Lab Routine Type 2 diabetes mellitus with diabetic neuropathy, with long-term current use of insulin (HCC) Expected: 06/09/2024, Expires: 09/08/2024 [facility] Comment on above: Expected: 06/09/2024, Expires: Start: 06-06-2024 Annual PCP Team Chronic Disease Visit Annual PCP Team Chronic Disease Visit [facility] Start: 05-26-2024 Covid-19 Vaccine ( season) Covid-19 Vaccine () [facility] Start: 05-25-2024 End: 05-25-2024 Patient encounter procedure 05/25/2024 10:00 AM EST Office Visit Podiatry [address] [place] [address] Arabella Heredia, ARELIS [address] [place] [address] 6 month follow up cuts callouses Podiatry Comment on above: 6 month follow up cuts callouses Start: 05-20-2024 Diabetic foot examination Diabetic Foot Exam [facility] Start: 05-07-2024 Glaucoma screening Dilated Retinal Exam [facility] Start: 03-25-2024 Advance Directive Discussion Advance Directive Discussion [facility] Start: 03-11-2024 Annual PCP Team Chronic Disease Visit Annual PCP Team Chronic Disease Visit [facility] Start: 03-11-2024 BP Controlled (<130/80) BP Controlled (<130/80) [facility] Start: 02-16-2024 Hepatitis B screening Urine Albumin:Creatinine Ratio [facility] Start: 02-16-2024 Urine microalbumin profile [facility] Start: 12-11-2023 End: 12-11-2023 Patient encounter procedure 12/11/2023 9:20 AM EDT Office Visit Internal Medicine [facility] [address] [place] [address] Krishna Reynolds MD [address] [place], [place] [id number] 6 mo f/u [facility] Comment on above: 6 mo f/u Start: 12-08-2023 Annual PCP Team Chronic Disease Visit Annual PCP Team Chronic Disease Visit [facility] Start: 12-08-2023 End: 03-08-2024 Basic metabolic 2000 panel - Serum or Plasma BASIC METABOLIC PNL Lab Routine Type 2 diabetes mellitus with diabetic neuropathy, with long-term current use of insulin (HCC) Expected: 12/08/2023, Expires: 03/08/2024 [facility] Work Phone: Comment on above: Expected: 12/08/2023, Expires: Start: 12-08-2023 BP Controlled (<130/80) BP Controlled (<130/80) [facility] Start: 12-08-2023 End: 03-08-2024 Hemoglobin A1c in Blood HGB A1C Lab Routine Type 2 diabetes mellitus with diabetic neuropathy, with long-term current use of insulin (HCC) Expected: 12/08/2023, Expires: 03/08/2024 [facility] Work Phone: Comment on above: Expected: 12/08/2023, Expires: Start: 12-08-2023 End: 03-08-2024 Lipid 1996 panel - Serum or Plasma LIPID PANEL BASIC Lab Routine Other hyperlipidemia Expected: 12/08/2023, Expires: 03/08/2024 [facility] Work Phone: Comment on above: Expected: 12/08/2023, Expires: Start: 11-24-2023 Influenza vaccination Influenza Vaccine (#1) Niranjan hong Start: 11-18-2023 End: 11-18-2023 Patient encounter procedure 11/18/2023 1:45 PM EDT Office Visit Podiatry [address] [place] [address] Arabella Heredia DPM [address] [place] [address] 6mo follow up - prefer mornings only Podiatry Comment on above: 6mo follow up - prefer mornings only Start: 11-18-2023 End: 11-18-2023 Patient encounter procedure 11/18/2023 8:40 AM EDT Office Visit Cardiology [address] [place] [id number] Regulo Stover MD [address] [address] 6 month follow up Cardiology Comment on above: 6 month follow up Start: 10-02-2023 ANNUAL PCP TEAM CHRONIC DISEASE VISIT ANNUAL PCP TEAM CHRONIC DISEASE VISIT [facility] Start: 09-16-2023 End: 09-16-2023 Patient encounter procedure 09/16/2023 11:00 AM EDT Office Visit Orthopaedics [address] [place] [address] Kaila Jimenez PA-C [address] [place], [place] [id number] Elbow mass, right [R22.31] Orthopaedics Comment on above: Elbow mass, right [R22.31] Start: 08-14-2023 BP CONTROLLED (<130/80) BP CONTROLLED (<130/80) [facility] Start: 06-02-2023 3 comp foot exam completed DIABETIC FOOT EXAM [facility] Start: 06-02-2023 ANNUAL PCP TEAM CHRONIC DISEASE VISIT ANNUAL PCP TEAM CHRONIC DISEASE VISIT [facility] Start: 06-02-2023 BP CONTROLLED (<130/80) BP CONTROLLED (<130/80) [facility] Start: 06-02-2023 Diabetic foot examination Diabetic Foot Exam [facility] Start: 05-31-2023 Hemoglobin A1c measurement HbA1C [facility] Start: 05-31-2023 Hemoglobin A1c/Hemoglobin.total in Blood HbA1C [facility] Start: 05-26-2023 Hepatitis B screening URINE ALBUMIN:CREATININE RATIO [facility] Start: 05-26-2023 Hepatitis B surface antibody level LDL CHOLESTEROL [facility] Start: 05-24-2023 End: 08-23-2023 Comprehensive metabolic 2000 panel - Serum or Plasma COMP METABOLIC PANEL Lab Routine Type 2 diabetes mellitus with diabetic neuropathy, with long-term current use of insulin (HCC) Expected: 05/24/2023, Expires: 08/23/2023 [facility] Work Phone: Comment on above: Expected: 05/24/2023, Expires: 4 Start: 05-24-2023 End: 08-23-2023 Hemoglobin A1c in Blood HGB A1C Lab Routine Type 2 diabetes mellitus with diabetic neuropathy, with long-term current use of insulin (HCC) Expected: 05/24/2023, Expires: 08/23/2023 [facility] Work Phone: Comment on above: Expected: 05/24/2023, Expires: 4 Start: 05-24-2023 End: 08-23-2023 Lipid 1996 panel - Serum or Plasma LIPID PANEL BASIC Lab Routine Other hyperlipidemia Expected: 05/24/2023, Expires: 08/23/2023 [facility] Work Phone: Comment on above: Expected: 05/24/2023, Expires: Start: 05-16-2023 Covid-19 Vaccine () Covid-19 Vaccine () [facility] Start: 04-23-2023 Glaucoma screening Dilated Retinal Exam [facility] Start: 04-23-2023 Hepatitis C antibody, confirmatory test DILATED RETINAL EXAM [facility] Start: 03-25-2023 Advance Directive Discussion Advance Directive Discussion [facility] Start: 03-25-2023 Behavioral Health Screening Behavioral Health Screening [facility] Start: 03-25-2023 Depression Assessment Depression Assessment [facility] Start: 01-26-2023 ANNUAL PCP TEAM CHRONIC DISEASE VISIT ANNUAL PCP TEAM CHRONIC DISEASE VISIT [facility] Start: 01-26-2023 BP CONTROLLED (<130/80) BP CONTROLLED (<130/80) [facility] Start: 01-15-2023 BP CONTROLLED (<130/80) BP CONTROLLED (<130/80) [facility] Start: 12-02-2022 End: 02-01-2023 Basic metabolic 2000 panel - Serum or Plasma BASIC METABOLIC PNL Lab Routine Type 2 diabetes mellitus with diabetic neuropathy, with long-term current use of insulin (HCC) Expected: 12/02/2022, Expires: 02/01/2023 [facility] Work Phone: Comment on above: Expected: 12/02/2022, Expires: 3 Start: 12-02-2022 End: 02-01-2023 Hemoglobin A1c in Blood HGB A1C Lab Routine Type 2 diabetes mellitus with diabetic neuropathy, with long-term current use of insulin (HCC) Expected: 12/02/2022, Expires: 02/01/2023 [facility] Work Phone: Comment on above: Expected: 12/02/2022, Expires: 3 Start: 12-02-2022 End: 02-01-2023 Lipid 1996 panel - Serum or Plasma LIPID PANEL BASIC Lab Routine Other hyperlipidemia Expected: 12/02/2022, Expires: 02/01/2023 [facility] Work Phone: Comment on above: Expected: 12/02/2022, Expires: 3 Start: 11-23-2022 Influenza vaccination [facility] Start: 11-15-2022 COLOGUARD (FIT-DNA) COLOGUARD (FIT-DNA) [facility] Start: 11-15-2022 COLORECTAL CANCER SCREENING COLORECTAL CANCER SCREENING [facility] Start: 09-08-2022 ANNUAL PCP TEAM CHRONIC DISEASE VISIT ANNUAL PCP TEAM CHRONIC DISEASE VISIT [facility] Start: 09-08-2022 BP CONTROLLED (<130/80) BP CONTROLLED (<130/80) [facility] Start: 08-23-2022 Hepatitis B surface antibody level LDL CHOLESTEROL [facility] Start: 05-26-2022 ANNUAL PCP TEAM CHRONIC DISEASE VISIT ANNUAL PCP TEAM CHRONIC DISEASE VISIT [facility] Start: 05-26-2022 BP CONTROLLED (<130/80) BP CONTROLLED (<130/80) [facility] Start: 05-01-2022 3 comp foot exam completed DIABETIC FOOT EXAM [facility] Start: 04-14-2022 Hepatitis C antibody, confirmatory test DILATED RETINAL EXAM [facility] Start: 03-25-2022 ADVANCE DIRECTIVE DISCUSSION ADVANCE DIRECTIVE DISCUSSION [facility] Start: 03-25-2022 DEPRESSION ASSESSMENT DEPRESSION ASSESSMENT [facility] Start: 02-14-2022 Hepatitis B screening URINE ALBUMIN:CREATININE RATIO [facility] Start: 01-29-2022 End: 03-31-2022 CBC panel - Blood by Automated count CBC Lab Routine Essential hypertension Expected: 01/29/2022, Expires: 03/31/2022 [facility] Work Phone: Comment on above: Expected: 01/29/2022, Expires: 3 Start: 01-29-2022 End: 03-31-2022 Comprehensive metabolic 2000 panel - Serum or Plasma COMP METABOLIC PANEL Lab Routine Other hyperlipidemia Expected: 01/29/2022, Expires: 03/31/2022 [facility] Work Phone: Comment on above: Expected: 01/29/2022, Expires: 3 Start: 01-29-2022 End: 03-31-2022 Hemoglobin A1c in Blood HGB A1C Lab Routine Type 2 diabetes mellitus with diabetic neuropathy, with long-term current use of insulin (HCC) Expected: 01/29/2022, Expires: 03/31/2022 [facility] Work Phone: Comment on above: Expected: 01/29/2022, Expires: 3 Start: 01-29-2022 End: 03-31-2022 Lipid 1996 panel - Serum or Plasma LIPID PANEL BASIC Lab Routine Other hyperlipidemia Expected: 01/29/2022, Expires: 03/31/2022 [facility] Work Phone: Comment on above: Expected: 01/29/2022, Expires: 3 Start: 01-26-2022 End: 03-28-2022 ALBUMIN/CREAT RATIO RND UR ALBUMIN/CREAT RATIO RND UR Lab Routine Type 2 diabetes mellitus with diabetic neuropathy, with long-term current use of insulin (HCC) Expected: 01/26/2022, Expires: 03/28/2022 [facility] Work Phone: Comment on above: Expected: 01/26/2022, Expires: 3 Start: 12-09-2021 End: 02-08-2022 Basic metabolic 2000 panel - Serum or Plasma BASIC METABOLIC PNL Lab Routine Type 2 diabetes mellitus with diabetic neuropathy, with long-term current use of insulin (HCC) Expected: 12/09/2021, Expires: 02/08/2022 [facility] Work Phone: Comment on above: Expected: 12/09/2021, Expires: 2 Start: 12-09-2021 End: 02-08-2022 Hemoglobin A1c in Blood HGB A1C Lab Routine Type 2 diabetes mellitus with diabetic neuropathy, with long-term current use of insulin (HCC) Expected: 12/09/2021, Expires: 02/08/2022 [facility] Work Phone: Comment on above: Expected: 12/09/2021, Expires: 2 Start: 11-30-2021 Adult depression screening assessment DEPRESSION SCREENING [facility] Start: 11-23-2021 Influenza vaccination INFLUENZA (#1) [facility] Start: 11-15-2021 Hemoglobin A1c/Hemoglobin.total in Blood HBA1C [facility] Start: 08-15-2021 Hemoglobin A1c/Hemoglobin.total in Blood HBA1C [facility] Start: 07-28-2021 BP CONTROLLED (<130/80) BP CONTROLLED (<130/80) [facility] Start: 03-25-2021 ADVANCE DIRECTIVE DISCUSSION ADVANCE DIRECTIVE DISCUSSION [facility] Start: 03-25-2021 DEPRESSION ASSESSMENT DEPRESSION ASSESSMENT [facility] Start: 03-10-2021 COVID-19 VACCINE (4 - Booster for Pfizer series) COVID-19 VACCINE (4 - Booster for Pfizer series) [facility] Start: 02-12-2021 Hepatitis B screening URINE ALBUMIN:CREATININE RATIO [facility] Start: 02-12-2021 Hepatitis B surface antibody level LDL CHOLESTEROL [facility] Start: 10-15-2019 FECAL OCCULT BLOOD FECAL OCCULT BLOOD [facility] Start: 10-15-2019 Screening for malignant neoplasm of colon Fecal Occult Blood [facility] Start: 06-04-2017 End: 06-04-2017 Appointment Appointment [facility] Work Phone: Start: 02-06-2017 End: 02-07-2017 *CBC with Differential *CBC with Differential [facility] Work Phone: Start: 02-06-2017 End: 02-06-2017 Chest x-ray X-Ray, Chest, PA & Lateral [facility] Work Phone: Start: 02-06-2017 End: 02-06-2017 Echocardiography Echocardiogram (complete) [facility] Work Phone: Start: 02-06-2017 End: 02-06-2017 Follow Up Appt Other Follow Up Appt Other [facility] Work Phone: Start: 02-06-2017 End: 02-06-2017 Nuclear stress test -Lexiscan Nuclear stress test -Lexiscan [facility] Work Phone: Start: 02-06-2017 End: 02-06-2017 PFM PFM [facility] Work Phone: Start: 02-06-2017 End: 02-07-2017 Thyroid stimulating hormone (TSH) *TSH [facility] Work Phone: Start: 02-06-2017 End: 02-07-2017 Thyroxine (T4) *T4 (Total) [facility] Work Phone: Start: 02-06-2017 End: 02-06-2017 Appointment Appointment [facility] Work Phone: Start: 12-03-2016 End: 12-17-2016 *BMP *BMP [facility] Work Phone: Start: 12-03-2016 End: 12-03-2016 Follow Up Appt 6 months Follow Up Appt 6 months [facility] Work Phone: Start: 12-03-2016 End: 12-03-2016 MMM MMM [facility] Work Phone: Start: 02-03-2016 End: 02-03-2016 Follow Up Appt 9 months Follow Up Appt 9 months [facility] Work Phone: Start: 02-03-2016 End: 02-03-2016 PFM PFM [facility] Work Phone: Start: 05-25-2015 End: 06-15-2016 *Hepatic Function Panel *Hepatic Function Panel [facility] Work Phone: Start: 05-25-2015 End: 06-15-2016 Lipid panel [AGGREGATE] *Lipid Profile CC [facility] Work Phone: Start: 05-23-2015 End: 02-06-2017 Follow Up Appt 6 months Follow Up Appt 6 months [facility] Work Phone: Start: 05-23-2015 End: 02-06-2017 Follow Up Appt Other Follow Up Appt Other [facility] Work Phone: Start: 05-23-2015 End: 02-06-2017 MM MM [facility] Work Phone: Start: 11-16-2014 End: 02-06-2017 Follow Up Appt 6 months Follow Up Appt 6 months [facility] Work Phone: Start: 11-16-2014 End: 05-23-2015 Follow Up Appt Other Follow Up Appt Other [facility] Work Phone: Start: 11-16-2014 End: 02-06-2017 PFM PFM [facility] Work Phone: Start: 08-25-2014 End: 11-09-2014 Follow Up Appt Other Follow Up Appt Other [facility] Work Phone: Start: 05-21-2014 End: 05-21-2014 Ecg routine ecg w/least 12 lds w/i&r EKG (In office) [employer] Phone: Start: 05-21-2014 End: 05-21-2014 Follow Up Appt 6 months Follow Up Appt 6 months [facility] Work Phone: Start: 05-21-2014 End: 05-21-2014 MMM MMM [employer] Work Phone: Start: 01-06-2014 End: 02-22-2014 INR Coag RelTime (PPP) *PT/INR - Standing Order [employer] Work Phone: Start: 09-21-2013 End: 02-22-2014 *Hepatic Function Panel *Hepatic Function Panel [facility] Work Phone: Start: 09-21-2013 End: 09-21-2013 Follow Up Appt 6 months Follow Up Appt 6 months [facility] Work Phone: Start: 09-21-2013 End: 02-22-2014 Lipid panel [AGGREGATE] *Lipid Profile CC PCP [employer] Work Phone: Start: 09-21-2013 End: 09-21-2013 PFM PFM [employer] Work Phone: Start: 05-28-2013 End: 05-28-2013 Ecg routine ecg w/least 12 lds w/i&r EKG (In office) [employer] Work Phone: Start: 05-27-2013 End: 05-28-2013 Ambulatory BP Monitor 24 HR Ambulatory BP Monitor 24 HR [employer] Work Phone: Start: 05-11-2013 End: 05-11-2013 Ecg routine ecg w/least 12 lds w/i&r EKG (In office) [employer] Work Phone: Start: 05-11-2013 End: 05-11-2013 Follow Up Appt Other Follow Up Appt Other [facility] Work Phone: Start: 02-27-2013 End: 02-27-2013 Ecg routine ecg w/least 12 lds w/i&r EKG (In office) [employer] Work Phone: Start: 02-27-2013 End: 11-09-2014 Follow Up Appt Other Follow Up Appt Other [employer] Work Phone: Start: 02-13-2013 End: 08-06-2013 *Hepatic Function Panel *Hepatic Function Panel [facility] Work Phone: Start: 02-13-2013 End: 02-13-2013 Follow Up Appt 6 months Follow Up Appt 6 months [facility] Work Phone: Start: 02-13-2013 End: 08-06-2013 Lipid panel [AGGREGATE] *Lipid Profile CC PCP [employer] Work Phone: Start: 02-13-2013 End: 02-13-2013 MMM MMM [employer] Work Phone: Start: 01-07-2013 End: 09-01-2013 INR Coag RelTime (PPP) *PT/INR - Standing Order [employer] Work Phone: Start: 12-25-2012 End: 01-07-2013 Chest x-ray X-Ray, Chest, PA & Lateral [employer] Work Phone: Start: 12-25-2012 End: 01-07-2013 Ecg routine ecg w/least 12 lds w/i&r EKG (In office) [employer] Work Phone: Start: 12-25-2012 End: 12-25-2012 Echocardiography Echocardiogram (complete) [employer] Work Phone: Start: 12-25-2012 End: 02-27-2013 Follow Up Appt 6 weeks Follow Up Appt 6 weeks [employer] Work Phone: Start: 12-25-2012 End: 11-09-2014 Follow Up Appt Other Follow Up Appt Other [employer] Work Phone: Start: 12-25-2012 End: 01-07-2013 INR Coag RelTime (PPP) *PT/INR [facility] Work Phone: Start: 12-25-2012 End: 02-27-2013 PFM PFM [facility] Work Phone: Start: 2010 Hepatitis B Vaccine (1 of 3 - Risk 3-dose series) Hepatitis B Vaccine (1 of 3 - Risk 3-dose series) [facility] Start: 07-23-1995 Colonoscopy COLONOSCOPY [facility] Start: 07-23-[address] COLONOGRAPHY [facility] Start: 07-23-1995 Screening for malignant neoplasm of colon [facility] Start: 07-23-1995 SIGMOIDOSCOPY SIGMOIDOSCOPY [facility] Start: 1968 Anxiety Screening Anxiety Screening [facility] Start: 1968 Depression Screening Depression Screening [facility] COLOGUARD COLOGUARD Lab Ro utine Screening for colon cancer Ordered: 12/07/2022 [facility] Work Phone: Comment on above: Ordered: 12/07/2022 End: 01-09-2023 ECG COMPLETE ECG COMPLETE ECG Routine Screening for ischemic heart disease 1 Occurrences starting 01/09/2022 until 01/09/2023 [facility] Work Phone: Comment on above: 1 Occurrences starting 01/09/2022 until 01/09/2023 End: 09-09-2025 NM Heart Perfusion W stress and W radionuclide IV NM CARDIAC PERF STRESS/PHARM Radiology Routine Coronary artery disease of [place] artery of [place] heart with stable angina pectoris ROBIN (dyspnea on exertion) 1 Occurrences starting 08/10/2024 until 09/09/2025 [facility] Work Phone: Comment on above: 1 Occurrences starting 08/10/2024 until 09/09/2025 Patient Education HYPERLIPIDEMIA [facility] Work Phone: End: 08-02-2024 US.doppler Scrotum and testicle US SCROTUM AND CONTENTS Radiology Routine Hydrocele, acquired 1 Occurrences starting 07/04/2023 until 08/02/2024 [facility] Work Phone: Comment on above: 1 Occurrences starting 07/04/2023 until 08/02/2024 US.doppler Scrotum a nd testicle US SCROTUM AND CONTENTS Radiology Routine Hydrocele, acquired 2023 10:50 AM EDT [facility] Work Phone: End: 10-10-2024 XR Elbow - right AP and Lateral XR ELBOW GENERAL 2V AP/LAT RIGHT Radiology Routine Right elbow pain 1 Occurrences starting 09/11/2023 until 10/10/2024 [facility] Work Phone: Comment on above: 1 Occurrences starting 09/11/2023 until 10/10/2024 XR Elbow - right AP and Lateral XR ELBOW GENERAL 2V AP/LAT RIGHT Radiology Routine Right elbow pain 09/16/2023 10:47 AM EDT [facility] Work Phone: [facility] Immunizations Immunization Date Immunization Notes Care Provider [facility] 06-10-2024 COVID-19 vaccine, ag e 12+ yr (PFIZER-BIONTCardioGenics [facility]) Krishna Reynolds MD Work Phone: [facility] 11-27-2023 influenza virus vaccine, unspecified formulation Nurse Sherwood Work Phone: [facility] 01-13-2023 COVID-19 vaccine, ag e 12+ yr, season (MODERNA) Nhung Longo MA [facility] 12-07-2022 influenza (HD-IIV4) vaccine, age 65+ yr, high dose, quadrivalent, PF (FLUZONE HIGH-DOSE) 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 Work Phone: [facility] 12-07-2022 influenza virus vaccine, unspecified formulation Kaila Jimenez PA-C Work Phone: [facility] 12-06-2022 respiratory syncytia l virus (RSV) vaccine, bivalent (ABRYSVO) Leila Russell APRN.CAR CHECKER Work Phone: [facility] 10-01-2022 COVID-19 vaccine, ag e 12+ yr, bivalent (PFIZER-BIONTECH) Krishna Reynolds MD Work Phone: [facility] Work Phone: 12-06-2021 COVID-19 booster vaccine, age 12+ yr, bivalent (PFIZER-BIONTECH) Regulo Stover MD Work Phone: [facility] Work Phone: 11-10-2021 influenza (aIIV4) vaccine, age 65+ yr, quadrivalent, PF (FLUAD QUAD) Krishna Reynolds MD Work Phone: [facility] Work Phone: 11-10-2021 influenza virus vaccine, unspecified formulation Krishna Reynolds MD Work Phone: [facility] 09-08-2021 pneumococcal (PCV20) vaccine, 20 valent (PREVNAR 20) Krishna Reynolds MD Work Phone: [facility] Work Phone: 09-08-2021 pneumococcal Conjuga te, unspecified formulation Krishna Reynolds MD Work Phone: [facility] Work Phone: 11-08-2020 COVID-19 vaccine, ag e 12+ yr (PFIZER-BIONTECH - PURPLE TOP) Krishna Reynolds MD Work Phone: [facility] Work Phone: 11-08-2020 influenza, high dose seasonal, preservative-free Krishna Reynolds MD Work Phone: [facility] Work Phone: 06-16-2020 COVID-19 vaccine, ag e 12+ yr (PFIZER-BIONTECH - PURPLE TOP) Krishna Reynolds MD Work Phone: [facility] Work Phone: 05-26-2020 COVID-19 vaccine, ag e 12+ yr (Personal [employer] - PURPLE TOP) Krishna Reynolds MD Work Phone: [facility] Work Phone: 02-08-2020 zoster vaccine recombinant Krishna Reynolds MD Work Phone: [facility] Work Phone: 12-08-2019 influenza, high dose seasonal, preservative-free Krishna Reynolds MD Work Phone: [facility] Work Phone: 12-08-2019 zoster vaccine recombinant Krishna Reynolds MD Work Phone: [facility] Work Phone: 11-03-2018 influenza, high dose seasonal, preservative-free Krishna Reynolds MD Work Phone: [facility] Work Phone: 12-26-2016 influenza, seasonal, injectable Krishna Reynolds MD Work Phone: [facility] Work Phone: 10-17-2016 pneumococcal polysaccharide vaccine, 23 valent Krishna Reynolds MD Work Phone: [facility] 11-16-2015 influenza, high dose seasonal, preservative-free Krishna Reynolds MD Work Phone: [facility] 09-06-2015 pneumococcal conjuga te vaccine, 13 valent Krishna Reynolds MD Work Phone: [facility] 12-14-2014 influenza, seasonal, injectable Krishna Reynolds MD Work Phone: [facility] 02-15-2014 tetanus toxoid, redu glenroy diphtheria toxoid, and acellular pertussis vaccine, adsorbed Krishna Reynolds MD Work Phone: [facility] 12-14-2013 influenza virus vaccine, whole virus Krishna Reynolds MD Work Phone: [facility] Work Phone: 11-17-2012 influenza virus vaccine, unspecified formulation Krishna Reynolds MD Work Phone: [facility] 01-30-2012 zoster vaccine, live Krishna Reynolds MD Work Phone: [facility] Work Phone: 11-27-2011 influenza virus vaccine, whole virus Krishna Reynolds MD Work Phone: [facility] Work Phone: 02-23-2004 pneumococcal polysaccharide vaccine, 23 valent Krishna Reynolds MD Work Phone: [facility] Work Phone: 02-23-2004 tetanus and diphther ia toxoids, not adsorbed, for adult use Krishna Reynolds MD Work Phone: [facility] Work Phone: NEGATED: Highlighted row has not occurred!01-30-2012 influenza virus vaccine, unspecified formulation Krishna Reynolds MD Work Phone: [facility] Work Phone: Payers Date Payer Category Payer Self-pay [id number] 2015 Private Health Insurance [facility] AAR SUPPLEMENT [id number] 2015-Present [phone] [address] [place] [address] Indemnity [id number] 2015 Private Health Insurance [id number] 2015 Unknown [id number] 2011 Medicare MEDICARE MEDICAR E A AND B [id number] 2011-Present [phone] [address] [address] [place] [address] Medicare [id number] 2011 Medicare [id number] 2011 Medicare [id number] Unknown [id number] [id number] .462 Unknown [id number] 2.16840.1.515610.3.579.2 .462 Unknown [id number] 2.16.840.1.443733.3.579.2 .462 Unknown [id number] 2.16.840.1.839327.3.579.2 .462 Unknown [id number] 2.16840.1.296059.3.579.2 .462 Unknown [id number] 2.16840.1.810886.3.579.2 .462 Unknown [id number] 2.16840.1.035861.3.579.2 .462 Unknown [id number] 2.16840.1.775790.3.579.2 .462 Unknown [id number] 2.16840.1.155392.3.579.2 .462 Unknown [id number] 2.16840.1.838522.3.579.2 .462 Unknown [id number] 2.16.840.1.448634.3.579.2 .462 Unknown [id number] 2.16840.1.251543.3.579.2 .462 Unknown [id number] 2.16.840.1.282923.3.579.2 .462 Unknown [id number] 2.16.840.1.656022.3.579.2 .462 Unknown [id number] 2.16.840.1.162719.3.579.2 .462 Unknown [id number] 2.16.840.1.116133.3.579.2 .462 Unknown [id number] 2.16.840.1.200728.3.579.2 .462 Social History Date Type Detail Facility Start: 03-31-2020 End: 11-18-2023 Tobacco smoking status NHIS Never smoked tobacco [facility] Start: 03-31-2020 End: 11-18-2023 Tobacco use and exposure User of smokeless tobacco [facility] History of tobacco use [facility] Start: 05-26-2021 End: 10-16-2024 Alcohol intake Current drinker of alcohol (finding) [facility] Start: 02-27-2010 History SDOH Alcohol Comment Rare [facility] Start: 1950 Sex Assigned At Not on file [facility] Start: 08-04-2020 End: 01-29-2023 Tobacco smoking status NHIS Unknown if ever smoked [facility] Start: 09-15-2019 Occasional [facility] Start: 09-15-2019 None [facility] Start: 10-01-2019 Spouse/ Signif icant Other [facility] Start: 06-24-2020 Chew [facility] Start: 1950 Sex Assigned At Male [facility] Start: 05-22-2020 End: 01-15-2022 Exposure to SARS-CoV-2 (event) Not sure [facility] Work Phone: History of tobacco use Cigarette Smoker [facility] Start: 08-13-2022 End: 10-01-2022 History of Social function [facility] Work Phone: Start: 08-13-2022 End: 10-01-2022 Tobacco use panel [facility] Work Phone: Start: 02-24-2012 Adult Depression Screening Assessment 1 [facility] Work Phone: How often to you hav e a drink containing alcohol? Never [facility] Start: 06-13-2024 End: 06-23-2024 Sex Male (finding) [facility] Medical Equipment Procedure Code Equipment Code Equipment Original Text Equipment Identifier Dates [id number], [id number], [id number], [id number], [id number] Start: 07-03-2011 End: 06-26-2023 Comment on above: TEST BLOOD SUGAR 2 T IMES PER DAY. DX: 250.00. INSULIN DEP: NO. twice daily. Use as instructed ( may dispense Deuca brand) Use with insulin fou r times daily. E11.40, Z79.4 Test blood sugar(s) 4-5 times daily Dx: Type 2 DM - Uncontrolled E11.65 Insulin: Yes Use with insulin 4 t imes a day. Dx: E11.40; Z79.4 Goals Date Patient Goal Desired Activity /State Personal health goal Functional Status Date Assessment Result Facility 06-10-2024 Total score [AUDIT-C] 0 06/11/19 25 8:59 AM Krishna Darling MD [facility] 07-02-2020 Are you deaf, or do you have serious difficulty hearing No 07/02/2020 9:27 AM Eber Blank RN No [facility] 07-02-2020 Are you blind, or do you have serious difficulty seeing, even when wearing glasses No 07/02/2020 9:27 AM Eber Blank RN No [facility] 07-02-2020 Do you have serious difficulty walking or climbing stairs No 07/02/2020 9:27 AM Eber Blank RN No [facility] 07-02-2020 Do you have difficul ty dressing or bathing No 07/02/2020 9:27 AM Eber Blank RN No [facility] 07-02-2020 Because of a physica l, mental, or emotional condition, do you have difficulty doing errands alone such as visiting a physician's office or shopping No 07/02/2020 9:27 AM Eber Blank RN No [facility] Mental Status Date Assessment Result Facility 07-02-2020 Because of a physica l, mental, or emotional condition, do you have serious difficulty concentrating, remembering, or making decisions No 07/02/2020 9:27 AM Eber Blank RN No [facility] Clinical Notes 02-10-2020 to 11-30-2024 Arabella Heredia DPM - 11/30/2024 7:21 PM EDTTelephone Encounter - Elsa Marin LPN - 11/04/2024 8:41 AM EDTTelephone Encounter - Elsa Marin LPN - 11/04/2024 8:41 AM EDT Note Date & Type Note Facility 11-30-2024 Note HNO ID: [id number] Author: ARABELLA HEREDIA DPM Service: ? Author Type: Physician Type: Progress Notes Filed: 11/30/2024 19:23 Note Text: This 74 year old male presents for painful calluses bilateral feet. Prior partial toe amputation left. Diabetic. No other pedal complaints PAIN EVALUATION 11/30/2024 0958 Pain Level: -- 8-right heel, 10- bilateral callous regions, 8 right dorsal foot lump Pain Location: -- bilateral sub 5th MTPJ region, right heel, right dorsal foot Description: Sharp sharp to all regions Duration Units: Years months for heel and dorsal foot Frequency: Intermittent PAST MEDICAL HISTORY Diagnosis Date Acute kidney injury (DANIELA) with acute tubular necrosis (ATN) 11/06/2019 CAD (coronary artery disease) 10/07/2007 70% stenosis circumflex 2nd marginal branch. Drug eluting stent done. Diabetic ulcer of toe of left foot associated with type 2 diabetes mellitus (HCC) 06/21/2020 Esophageal reflux Generalized osteoarthrosis, unspecified site Hydrocele, acquired 07/04/2023 Nephrolithiasis 10/17/2016 NEUROPATHY IN DIABETES 01/30/2006 Nonspecific abnormal results of liver function study Obesity, unspecified JAMES (obstructive sleep apnea) 08/13/2013 declined tx Osteomyelitis of second toe of right foot (HCC) 09/17/2019 Osteomyelitis of third toe of right foot (HCC) 09/17/2019 Other and unspecified hyperlipidemia Paroxysmal atrial fibrillation (HCC) 10/07/2007 Personal history of contact with and (suspected) exposure to asbestos Testicular cyst 07/26/2023 Type II or unspecified type diabetes mellitus without mention of complication, not stated as uncontrolled Unspecified essential hypertension Unspecified venous (peripheral) insufficiency Current Outpatient Medications Medication Sig insulin degludec (TRESIBA FLEXTOUCH U-200) 200 unit/mL (3 mL) injection Inject 120 Units subcutaneously daily at bedtime. insulin aspart U-100 (NOVOLOG FLEXPEN U-100 INSULIN) 100 unit/mL (3 mL) pen Inject 25 Units subcutaneously three times a day before meals. Sliding scale 3 times daily. (80 units daily max) amLODIPine (NORVASC) 2.5 mg tablet Take 1 tablet by mouth once daily. alirocumab (PRALUENT PEN) 75 mg/mL pen Inject 1 mL subcutaneously every other week. metoprolol tartrate, short acting, (LOPRESSOR) 50 mg tablet Take 1 tablet by mouth three times a day. clopidogrel (PLAVIX) 75 mg tablet Take 1 tablet by mouth once daily. gabapentin (NEURONTIN) 100 mg capsule Take 1 capsule by mouth three times a day for 360 days. nitroglycerin sublingual (NITROQUICK) 0.4 mg SL tablet Dissolve 1 tablet under the tongue every 5 minutes as needed for chest pain. IF NO PAIN RELIEF WITH 2ND DOSE, CALL 911 spironolactone (ALDACTONE) 25 mg tablet Take 1 tablet by mouth once daily. furosemide (LASIX) 80 mg tablet Take 1 tablet by mouth two times a day. Three times per day as directed PRN aspirin, enteric coated (ASPIRIN, ENTERIC COATED) 81 mg EC tablet Take 1 tablet by mouth once daily. BIOTIN ORAL Take 1 tablet by mouth once daily. Fish Oil-Jackson-3 Fatty Acids (FISH OIL OMEGA 3-6-9) 300-1,000 mg CpDR Take 3000 mg daily. Lancets (ONE TOUCH ULTRASOFT LANCETS) Misc lancets twice daily. Use as instructed ( may dispense Deuca brand) VITAMIN C 1,000 MG TAB Take one(1) tablet daily. Insulin Spruce, Disposable, 32 gauge x 5/32 Use with insulin 4 times a day. Dx: E11.40; Z79.4 blood sugar diagnostic (BLOOD GLUCOSE TEST) test strip Test blood sugar(s) 4-5 times daily Dx: Type 2 DM - Uncontrolled E11.65 Insulin: Yes MULTIVITAMIN TAB Take one(1) tablet daily. No current facility-administered medications for this visit. ALLERGIES Allergen Reactions Metolazone Rash Altace [Ramipril] Intolerance Bactrim [Sulfametho* Hives Diovan [Valsartan] Propofol Other: See Comments agitation Ramipril Seasonal Allergies Other: See Comments Egqcahd-Bkq-Awm Red* Other: See Comments Muscle aches OBJECTIVE: Patient presents WB with regular shoe gear Neurovascular status is grossly unchanged. Absent vibratory sensation at the hallux IPJ. Intact protective sensation hyperkeratotic tissue noted subfifth MTP joint bilateral, plantar lateral heel x 2 bilateral. Hemoglobin A1C (%) Date Value 06/03/2024 6.1 11/26/2020 9.1 08/15/2020 8.6 02/13/2020 7.6 10/01/2019 6.1 04/08/2019 6.0 HGBA1C (%) Date Value 11/30/2022 5.9 01/12/2022 6.3 ASSESSMENT/PLAN: 1. DM (diabetes mellitus), type 2 with neurological complications (HCC) - ICD9: 250.60, ICD10: E11.49 (primary diagnosis) 2. [place] or callus - ICD9: 700, ICD10: L84 PLAN: Treatment today consisted of -Exam -Debrided calluses x 4 with #15 blade Continue follow up with endo Continue with diabetic shoes Follow-up in 4 months or sooner corine Heredia DPM [facility] 11-30-2024 History of Presen t illness Narrative Images from the original note were not included. This 74 year old male presents for painful calluses bilateral feet. Prior partial toe amputation left. Diabetic. No other pedal complaints PAIN EVALUATION 11/30/2024 0958 Pain Level: -- 8-right heel, 10- bilateral callous regions, 8 right dorsal foot lump Pain Location: -- bilateral sub 5th MTPJ region, right heel, right dorsal foot Description: Sharp sharp to all regions Duration Units: Years months for heel and dorsal foot Frequency: Intermittent PAST MEDICAL HISTORY Diagnosis Date Acute kidney injury (DANIELA) with acute tubular necrosis (ATN) 11/06/2019 CAD (coronary artery disease) 10/07/2007 70% stenosis circumflex 2nd marginal branch. Drug eluting stent done. Diabetic ulcer of toe of left foot associated with type 2 diabetes mellitus (HCC) 06/21/2020 Esophageal reflux Generalized osteoarthrosis, unspecified site Hydrocele, acquired 07/04/2023 Nephrolithiasis 10/17/2016 NEUROPATHY IN DIABETES 01/30/2006 Nonspecific abnormal results of liver function study Obesity, unspecified JAMES (obstructive sleep apnea) 08/13/2013 declined tx Osteomyelitis of second toe of right foot (HCC) 09/17/2019 Osteomyelitis of third toe of right foot (HCC) 09/17/2019 Other and unspecified hyperlipidemia Paroxysmal atrial fibrillation (HCC) 10/07/2007 Personal history of contact with and (suspected) exposure to asbestos Testicular cyst 07/26/2023 Type II or unspecified type diabetes mellitus without mention of complication, not stated as uncontrolled Unspecified essential hypertension Unspecified venous (peripheral) insufficiency Current Outpatient Medications Medication Sig insulin degludec (TRESIBA FLEXTOUCH U-200) 200 unit/mL (3 mL) injection Inject 120 Units subcutaneously daily at bedtime. insulin aspart U-100 (NOVOLOG FLEXPEN U-100 INSULIN) 100 unit/mL (3 mL) pen Inject 25 Units subcutaneously three times a day before meals. Sliding scale 3 times daily. (80 units daily max) amLODIPine (NORVASC) 2.5 mg tablet Take 1 tablet by mouth once daily. alirocumab (PRALUENT PEN) 75 mg/mL pen Inject 1 mL subcutaneously every other week. metoprolol tartrate, short acting, (LOPRESSOR) 50 mg tablet Take 1 tablet by mouth three times a day. clopidogrel (PLAVIX) 75 mg tablet Take 1 tablet by mouth once daily. gabapentin (NEURONTIN) 100 mg capsule Take 1 capsule by mouth three times a day for 360 days. nitroglycerin sublingual (NITROQUICK) 0.4 mg SL tablet Dissolve 1 tablet under the tongue every 5 minutes as needed for chest pain. IF NO PAIN RELIEF WITH 2ND DOSE, CALL 911 spironolactone (ALDACTONE) 25 mg tablet Take 1 tablet by mouth once daily. furosemide (LASIX) 80 mg tablet Take 1 tablet by mouth two times a day. Three times per day as directed PRN aspirin, enteric coated (ASPIRIN, ENTERIC COATED) 81 mg EC tablet Take 1 tablet by mouth once daily. BIOTIN ORAL Take 1 tablet by mouth once daily. Fish Oil-Jackson-3 Fatty Acids (FISH OIL OMEGA 3-6-9) 300-1,000 mg CpDR Take 3000 mg daily. Lancets (ONE TOUCH ULTRASOFT LANCETS) [facility] twice daily. Use as instructed ( may dispense Deuca brand) VITAMIN C 1,000 MG TAB Take one(1) tablet daily. Insulin Spruce, Disposable, 32 gauge x / Use with insulin 4 times a day. Dx: E11.40; Z79.4 blood sugar diagnostic (BLOOD GLUCOSE TEST) test strip Test blood sugar(s) 4-5 times daily Dx: Type 2 DM - Uncontrolled E11.65 Insulin: Yes MULTIVITAMIN TAB Take one(1) tablet daily. No current facility-administered medications for this visit. ALLERGIES Allergen Reactions Metolazone Rash Altace [Ramipril] Intolerance Bactrim [Sulfametho* Hives Diovan [Valsartan] Propofol Other: See Comments agitation Ramipril Seasonal Allergies Other: See Comments Vhmfeio-Hbr-Qda Red* Other: See Comments Muscle aches OBJECTIVE: Patient presents WB with regular shoe gear Neurovascular status is grossly unchanged. Absent vibratory sensation at the hallux IPJ. Intact protective sensation hyperkeratotic tissue noted subfifth MTP joint bilateral, plantar lateral heel x 2 bilateral. Hemoglobin A1C (%) Date Value 06/03/2024 6.1 11/26/2020 9.1 08/15/2020 8.6 02/13/2020 7.6 10/01/2019 6.1 04/08/2019 6.0 HGBA1C (%) Date Value 11/30/2022 5.9 01/12/2022 6.3 ASSESSMENT/PLAN: 1. DM (diabetes mellitus), type 2 with neurological complications (HCC) - ICD9: 250.60, ICD10: E11.49 (primary diagnosis) 2. [place] or callus - ICD9: 700, ICD10: L84 PLAN: Treatment today consisted of -Exam -Debrided calluses x 4 with #15 blade Continue follow up with endo Continue with diabetic shoes Follow-up in 4 months or sooner corine Heredia DPM documented in this encounter [facility] 11-04-2024 Telephone encounter Note The patient has been identified by name and date of : Yes Caregiver verified no other encounters exist for this prescription request: Yes Caregiver confirmed with patient/requestor that no other refills are due, in the near future, with this provider at this time: Yes The last office visit in the department: 06/10/2024 Does the patient have a future office visit with this provider/department: Yes 12/11/2024 Requested Prescriptions Pending Prescriptions Disp Refills insulin degludec (TRESIBA FLEXTOUCH U-200) 200 unit/mL (3 mL) injection 20 each 3 Sig: Inject 120 Units subcutaneously daily at bedtime. insulin aspart U-100 (NOVOLOG FLEXPEN U-100 INSULIN) 100 unit/mL (3 mL) pen 25 each 3 Sig: Inject 25 Units subcutaneously three times a day before meals. Sliding scale 3 times daily. (80 units daily max) Elsa Marin LPN November 04, 2024 8:49 AM [facility] 11-04-2024 Miscellaneous Notes The patient has been identified by name and date of : Yes Caregiver verified no other encounters exist for this prescription request: Yes Caregiver confirmed with patient/requestor that no other refills are due, in the near future, with this provider at this time: Yes The last office visit in the department: 06/10/2024 Does the patient have a future office visit with this provider/department: Yes 12/11/2024 Requested Prescriptions Pending Prescriptions Disp Refills insulin degludec (TRESIBA FLEXTOUCH U-200) 200 unit/mL (3 mL) injection 20 each 3 Sig: Inject 120 Units subcutaneously daily at bedtime. insulin aspart U-100 (NOVOLOG FLEXPEN U-100 INSULIN) 100 unit/mL (3 mL) pen 25 each 3 Sig: Inject 25 Units subcutaneously three times a day before meals. Sliding scale 3 times daily. (80 units daily max) Elsa Marin LPN November 04, 2024 8:49 AM documented in this encounter [facility] 10-22-2024 Telephone encounter Note Spoke with patient about test results. Patient verbalizes understanding. Ivy Morse LPN [facility] 10-22-2024 Miscellaneous Notes Spoke with patient about test results. Patient verbalizes understanding. Ivy Morse LPN ----- Message from Regulo Stover MD sent at 10/22/2024 4:58 PM EDT ----- Please call the patient to let him know that his stress test was normal. Heart pumping function is good. I will review the results in more detail at his next's office visit Thank you Hung Stover documented in this encounter [facility] 10-22-2024 Telephone encounter Note ----- Message from Regulo Stover MD sent at 10/22/2024 4:58 PM EDT ----- Please call the patient to let him know that his stress test was normal. Heart pumping function is good. I will review the results in more detail at his next's office visit Thank you Hung Stover [facility] 10-19-2024 History of Presen t illness Narrative RADIOLOGY SERVICE PROGRESS NOTE SERVICE DATE: 10/19/2024 SERVICE TIME: 08:45 AM PATIENT IDENTITY VERIFICATION COMPLETED USING TWO (2) STANDARD IDENTIFIERS: Name and Date of confirmed by patient verbally FALL SCREENING: Has the patient had 2 falls in the last year or 1 fall with injury or currently using an Ambulatory Assistive Device (Walker, Cane, Wheelchair, Crutches, etc.)? Yes, Patient High Risk for Falls What interventions were put in place to prevent falls during this visit? Instructed Patient to Call for Help if Needed, Offered Assistance with Transfers/Clothing, Instructed Patient to Remain Seated (Not on Exam Table) Until Exam, Increased Observations by Caregivers, and Escorted to/from Restroom PATIENT GENDER DATA: .male ALLERGIES: Reviewed and unchanged MEDICATIONS REVIEWED: No PATIENT RELEVANT IMPLANT DATA REVIEWED: Not Applicable PATIENT PRESENTS WITH AN IMPLANTABLE OR ATTACHED FIELD INSTALLATION TECHNICIAN: n/a CREATININE: Creatinine Date Value Ref Range Status 06/03/2024 0.94 0.6 - 1.3 MG/DL Final 11/26/2020 1.09 0.73 - 1.22 mg/dL Final 08/17/2020 1.00 0.73 - 1.22 mg/dL Final eGFR-All Other Races Date Value Ref Range Status 11/26/2020 >60 . Final Comment: eGFR (Estimated GFR) Units [...] GFR. eGFR- Date Value Ref Range Status 11/26/2020 >60 Final P.O.C.T. RESULTS: N/A October 19, [address] PERFORMED: No IV SITE: Ambulatory: A peripheral IV was started in the Left antecubital site with a Angio cath: 24 gauge. POST EXAM PIV STATUS: Discontinued PROCEDURE TYPE: NM Stress: 17.1mCi [id number] was administered IV for Rest Imaging at 08:55 by Gilda Castle. 51.4 mCi Ti20n-Skzumzu was administered IV for Stress Imaging at 10:25 by Gilda Castle. PATIENT DISCHARGED TO: Ambulatory patient, left [place] department area. Is this a therapy: No A Diagnostic radioactive procedure has taken place, with no further precautions necessary other than routine body substance precautions. More information regarding radiation safety can be found using this link: [email or web address]%[email or web address] uclear%[email or web address] df SIGNATURE: RT Judith(Isabel) PATIENT NAME: Miguelangel Moya DATE: October 19, 2024 TIME: 11:30 AM PAGER/CONTACT #: documented in this encounter [facility] 10-19-2024 Note HNO ID: [id number] Author: GILDA CASTLE RT(R) Service: Nuclear Medicine Author Type: Technologist Type: Progress Notes Filed: 10/19/2024 13:50 Note Text: RADIOLOGY SERVICE PROGRESS NOTE SERVICE DATE: 10/19/2024 SERVICE TIME: 08:45 AM PATIENT IDENTITY VERIFICATION COMPLETED USING TWO (2) STANDARD IDENTIFIERS: Name and Date of confirmed by patient verbally FALL SCREENING: Has the patient had 2 falls in the last year or 1 fall with injury or currently using an Ambulatory Assistive Device (Walker, Cane, Wheelchair, Crutches, etc.)? Yes, Patient High Risk for Falls What interventions were put in place to prevent falls during this visit? Instructed Patient to Call for Help if Needed, Offered Assistance with Transfers/Clothing, Instructed Patient to Remain Seated (Not on Exam Table) Until Exam, Increased Observations by Caregivers, and Escorted to/from Restroom PATIENT GENDER DATA: .male ALLERGIES: Reviewed and unchanged MEDICATIONS REVIEWED: No PATIENT RELEVANT IMPLANT DATA REVIEWED: Not Applicable PATIENT PRESENTS WITH AN IMPLANTABLE OR ATTACHED FIELD INSTALLATION TECHNICIAN: n/a CREATININE: Creatinine Date Value Ref Range Status 06/03/2024 0.94 0.6 - 1.3 MG/DL Final 11/26/2020 1.09 0.73 - 1.22 mg/dL Final 08/17/2020 1.00 0.73 - 1.22 mg/dL Final eGFR-All Other Races Date Value Ref Range Status 11/26/2020 >60 . Final Comment: eGFR (Estimated GFR) Units [...] GFR. eGFR- Date Value Ref Range Status 11/26/2020 >60 Final P.O.C.T. RESULTS: N/A October 19, [address] PERFORMED: No IV SITE: Ambulatory: A peripheral IV was started in the Left antecubital site with a Angio cath: 24 gauge. POST EXAM PIV STATUS: Discontinued PROCEDURE TYPE: NM Stress: 17.1mCi Dr64q-Lueoavn was administered IV for Rest Imaging at 08:55 by Gilda Castle. 51.4 mCi Xn75y-Jawislm was administered IV for Stress Imaging at 10:25 by Gilda Castle. PATIENT DISCHARGED TO: Ambulatory patient, left [place] department area. Is this a therapy: No A Diagnostic radioactive procedure has taken place, with no further precautions necessary other than routine body substance precautions. More information regarding radiation safety can be found using this link: [email or web address] 20Diagnostic%20Nuclear%20Medicin [email or web address] SIGNATURE: RT Judith(R) PATIENT NAME: Miguelangel Moya DATE: October 19, 2024 TIME: 11:30 AM PAGER/CONTACT #: [facility] 10-16-2024 Telephone encounter Note Pt's called and is notified of providers message and instructions. She voices understanding. Vernell Lopez RN [facility] 10-16-2024 Miscellaneous Notes Pt's called and is notified of providers message and instructions. She voices understanding. Vernell Lopez RN The standard protocol is to hold scheduled insulin and give sliding scale if indicated by the blood sugar to avoid the blood sugar spiking since he is not getting the scheduled insulin that morning. Check blood fasting blood sugar the day of procedure and give indicated amount of Novolog per sliding scale Leila Suárez APRN.CNP Phoned pt and spoke with . Given provider's message. 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 Pt is required to fast 4 hours before procedure except for water. Reports if she uses sliding scale, it's in increments of 50: >150 add 1 unit to routine dose >200 add 2 units to routine dose >250 add 3 units to routine dose >300 add 4, and so on... Reports pt's BS is usually not over 150, it stays below 100. Please advise , Jessica. Typically the scheduled dose of Novolong should be held and patient should take sliding scale insulin only. What are the sliding scale doses? Leila Suárez APRN.CNP reports pt is having a nuclear stress test on Saturday morning at 8:30 am and they were instructed to check with pcp to ask if pt should take his Novolog 25 units that morning? Also has novolog sliding scale that morning but states he probably won't need that. Please advise and phone pt with reply. documented in this encounter [facility] 10-16-2024 Telephone encounter Note The standard protocol is to hold scheduled insulin and give sliding scale if indicated by the blood sugar to avoid the blood sugar spiking since he is not getting the scheduled insulin that morning. Check blood fasting blood sugar the day of procedure and give indicated amount of Novolog per sliding scale Leila Suárez APRN.PATRICIA [facility] 10-16-2024 Telephone encounter Note Phoned pt and spoke with . Given provider's message. 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 Pt is required to fast 4 hours before procedure except for water. Reports if she uses sliding scale, it's in increments of 50: >150 add 1 unit to routine dose >200 add 2 units to routine dose >250 add 3 units to routine dose >300 add 4, and so on... Reports pt's BS is usually not over 150, it stays below 100. Please advise , Jessica. [facility] 10-16-2024 Telephone encounter Note Typically the scheduled dose of Novolong should be held and patient should take sliding scale insulin only. What are the sliding scale doses? Leila Suárez APRN.CAR CHECKER [facility] 10-15-2024 Telephone encounter Note Called and reviewed the below instructions with patient and his retired RN . Yoselin Hilario RN You are scheduled for a stress test on 10/19/24 at 8:30am. This stress test will appear as 3 appointments on your schedule. You may get multiple reminder calls, but please arrive at the earliest scheduled appointment. Please follow below instructions: *NOTHING BY MOUTH 4 HOURS prior to this test. (you may have sips of water) *NO CAFFEINE FOR 24 HOURS PRIOR TO TESTING (including TEA even decaf, COFFEE- even decaf, CHOCOLATE, ROLAND- even decaf) *Do NOT take MEDICATIONS CONTAINING CAFFEINE/XANTHINE for 24 HOURS prior to testing: Theophylline, Trental, Excedrin, Anacin, Goody Powders, No Doz, Vivarin, Midol, Diurex, Fiorinal, Fioricet, Esgic (butalbital) *Do NOT take Calcium Channel Blockers 24 HOURS prior to test. *Do NOT take Beta blockers 24 HOURS prior to test UNLESS your doctor tells you otherwise. *Do NOT use the following medications 48 HOURS prior to this test: Viagra(Sildenafil citrate), Cialis(Tadalafil), Vardenafil (Levitra, Stanyx), Avanfil (Stendra). *Do not take any of these meds prior to test unless provider directs you otherwise; Nitroglycerine (ex:Deponit, Nitrostat) Isosorbide (ex:Isordil, Sorbitrate,Imdur,Ismo). Medications on your list you should hold for 24 HOURS: amlodipine & metoprolol *All other medications may be taken as you normally would. *Guidelines for Diabetics: If you take insulin to control your blood sugar, ask you physician what amount you should take the day of the test. If you take pills to control blood sugar, on the day of the test, do NOT take them until AFTER the test. *FAILURE TO FOLLOW THESE INSTRUCTIONS WILL RESULT IN HAVING TO RESCHEDULE THE TEST. *If you use an inhaler, bring it along with you just in case *THIS TEST MAY TAKE UP TO 3 HOURS TO COMPLETE. Please check in on the first floor at Radiology: [address]; [place] [address] * If you need to cancel or reschedule this test or have any questions regarding this test, please call [phone]. [facility] 10-15-2024 Miscellaneous Notes Called and reviewed the below instructions with patient and his retired RN . Yoselin Hilario RN You are scheduled for a stress test on 10/19/24 at 8:30am. This stress test will appear as 3 appointments on your schedule. You may get multiple reminder calls, but please arrive at the earliest scheduled appointment. Please follow below instructions: *NOTHING BY MOUTH 4 HOURS prior to this test. (you may have sips of water) *NO CAFFEINE FOR 24 HOURS PRIOR TO TESTING (including TEA even decaf, COFFEE- even decaf, CHOCOLATE, ROLAND- even decaf) *Do NOT take MEDICATIONS CONTAINING CAFFEINE/XANTHINE for 24 HOURS prior to testing: Theophylline, Trental, Excedrin, Anacin, Goody Powders, No Doz, Vivarin, Midol, Diurex, Fiorinal, Fioricet, Esgic (butalbital) *Do NOT take Calcium Channel Blockers 24 HOURS prior to test. *Do NOT take Beta blockers 24 HOURS prior to test UNLESS your doctor tells you otherwise. *Do NOT use the following medications 48 HOURS prior to this test: Viagra(Sildenafil citrate), Cialis(Tadalafil), Vardenafil (Levitra, Stanyx), Avanfil (Stendra). *Do not take any of these meds prior to test unless provider directs you otherwise; Nitroglycerine (ex:Deponit, Nitrostat) Isosorbide (ex:Isordil, Sorbitrate,Imdur,Ismo). Medications on your list you should hold for 24 HOURS: amlodipine & metoprolol *All other medications may be taken as you normally would. *Guidelines for Diabetics: If you take insulin to control your blood sugar, ask you physician what amount you should take the day of the test. If you take pills to control blood sugar, on the day of the test, do NOT take them until AFTER the test. *FAILURE TO FOLLOW THESE INSTRUCTIONS WILL RESULT IN HAVING TO RESCHEDULE THE TEST. *If you use an inhaler, bring it along with you just in case *THIS TEST MAY TAKE UP TO 3 HOURS TO COMPLETE. Please check in on the first floor at Radiology: [address]; [place] [address] * If you need to cancel or reschedule this test or have any questions regarding this test, please call [phone]. documented in this encounter [facility] 10-15-2024 Telephone encounter Note reports pt is having a nuclear stress test on Saturday morning at 8:30 am and they were instructed to check with pcp to ask if pt should take his Novolog 25 units that morning? Also has novolog sliding scale that morning but states he probably won't need that. Please advise and phone pt with reply. [facility] 08-24-2024 Telephone encounter Note Prescription Refill Information The patient has been identified by name and date of : Yes Caregiver verified no other encounters exist for this prescription request: Yes Caregiver confirmed with patient/requestor that no other refills are due, in the near future, with this provider at this time: Yes The last office visit in the department: 06/10/2024 Does the patient have a future office visit with this provider/department: Yes Requested Prescriptions Pending Prescriptions Disp Refills amLODIPine (NORVASC) 2.5 mg tablet 90 tablet 3 Sig: Take 1 tablet by mouth once daily. Guillermina Pires August 24, 2024 9:00 AM [facility] 08-24-2024 Miscellaneous Notes Prescription Refill Information The patient has been identified by name and date of : Yes Caregiver verified no other encounters exist for this prescription request: Yes Caregiver confirmed with patient/requestor that no other refills are due, in the near future, with this provider at this time: Yes The last office visit in the department: 06/10/2024 Does the patient have a future office visit with this provider/department: Yes Requested Prescriptions Pending Prescriptions Disp Refills amLODIPine (NORVASC) 2.5 mg tablet 90 tablet 3 Sig: Take 1 tablet by mouth once daily. Guillermina Pires August 24, 2024 9:00 AM documented in this encounter [facility] 08-10-2024 Telephone encounter Note Printed and mailed to patient per request. Jamaica Hernandez LPN [facility] 08-10-2024 Miscellaneous Notes Printed and mailed to patient per request. Jamaica Hernandez LPN Call received from Pt's , Jessica. Verified Pt's name & . Pt had OV with Dr. Stover this morning. Jessica is requesting the Praluent Rx be printed and mailed to Pt's home address. She received confirmation of a patient assistance program but needs to have the paper Rx in hand when she goes to the pharmacy. Verified address on file is correct. Kimber Mendez RN August 10, 2024 1:50 PM documented in this encounter [facility] 08-10-2024 Telephone encounter Note Call received from Pt's , Jessica. Verified Pt's name & . Pt had OV with Dr. Stover this morning. Jessica is requesting the Praluent Rx be printed and mailed to Pt's home address. She received confirmation of a patient assistance program but needs to have the paper Rx in hand when she goes to the pharmacy. Verified address on file is correct. Kimber Mendez RN August 10, 2024 1:50 PM [facility] 08-10-2024 Instructions Regulo Stover MD - 08/10/2024 8:43 AM EDT We are ordering a stress test No caffeine for 36 hours prior to the stress Do not take the metoprolol the day of the stress documented in this encounter [facility] 08-10-2024 History of Presen t illness Narrative Images from the original note were not included. [facility] CARDIOLOGY Cardiology ([address]) [address] [facility] [id number] OUTPATIENT VISIT DATE 08/10/2024 PRIMARY CARE PHYSICIAN: Krishna Reynolds [address] [place] [address] HISTORY OF PRESENT ILLNESS: Mr. Moya is a 74 year old morbidly obese gentleman with a history of coronary artery disease and prior high risk coronary intervention, diabetes (insulin requiring), chronic diastolic congestive heart failure, hypertension, obstructive sleep apnea (noncompliant with CPAP) and dyslipidemia who presents for routine follow-up. Patient continues to have shortness of breath on exertion. Patient feels like his symptoms are slightly worse than baseline. He has not had symptoms consistent with PND orthopnea. He has trace lower extremity swelling and is compliant with low-sodium diet and compression stockings. He denies palpitations, lightheadedness, dizziness, or syncope. PAST MEDICAL HISTORY Diagnosis Date Acute kidney injury (DANIELA) with acute tubular necrosis (ATN) 11/06/2019 CAD (coronary artery disease) 10/07/2007 70% stenosis circumflex 2nd marginal branch. Drug eluting stent done. Diabetic ulcer of toe of left foot associated with type 2 diabetes mellitus (HCC) 06/21/2020 Esophageal reflux Generalized osteoarthrosis, unspecified site Hydrocele, acquired 07/04/2023 Nephrolithiasis 10/17/2016 NEUROPATHY IN DIABETES 01/30/2006 Nonspecific abnormal results of liver function study Obesity, unspecified JAMES (obstructive sleep apnea) 08/13/2013 declined tx Osteomyelitis of second toe of right foot (HCC) 09/17/2019 Osteomyelitis of third toe of right foot (HCC) 09/17/2019 Other and unspecified hyperlipidemia Paroxysmal atrial fibrillation (HCC) 10/07/2007 Personal history of contact with and (suspected) exposure to asbestos Testicular cyst 07/26/2023 Type II or unspecified type diabetes mellitus [...] cath, L heart LEFT HEART CATH,PERCUTANEOUS 12/29/2019 [facility] TONSILLECTOMY PRIMARY/SECONDARY <AGE 12 1957 Tonsillectomy TRANSCATH STENT INIT VESSEL,PERCUT 11/10/2007 Transcath stent init vessel percut, DILIA VASECTOMY UNI/BI SPX W/POSTOP SEMEN EXAMS 1977 SOCIAL HISTORY Social History Tobacco Use Smoking status: Never Smokeless tobacco: Current Types: Chew Vaping Use Vaping status: Never Used Substance Use Topics Alcohol use: Yes Comment: Rare Drug use: Never FAMILY HISTORY Problem Relation Age of Onset Hypertension Mother Stroke Mother Lipids Mother Heart Father Thyroid Sister Cancer Brother 48 bladder and kidney ALLERGIES: ALLERGIES Allergen Reactions Metolazone Rash Altace [Ramipril] Intolerance Bactrim [Sulfametho* Hives Diovan [Valsartan] Propofol Other: See Comments agitation Ramipril Seasonal Allergies Other: See Comments Ziahtwc-Dow-Mqw Red* Other: See Comments Muscle aches MEDICATIONS: insulin aspart U-100 (NOVOLOG FLEXPEN U-100 INSULIN) 100 unit/mL (3 mL) Inject 25 Units subcutaneously three times a day before meals. Sliding scale 3 times daily. (80 units daily max) metoprolol tartrate, short acting, (LOPRESSOR) 50 mg tablet Take 1 tablet by mouth three times a day. clopidogrel (PLAVIX) 75 mg tablet Take 1 tablet by mouth once daily. gabapentin (NEURONTIN) 100 mg capsule Take 1 capsule by mouth three times a day for 360 days. alirocumab (PRALUENT PEN) 75 mg/mL pen Inject 1 mL subcutaneously every other week. nitroglycerin sublingual (NITROQUICK) 0.4 mg SL tablet Dissolve 1 tablet under the tongue every 5 minutes as needed for chest pain. IF NO PAIN RELIEF WITH 2ND DOSE, CALL 911 spironolactone (ALDACTONE) 25 mg tablet Take 1 tablet by mouth once daily. furosemide (LASIX) 80 mg tablet Take 1 tablet by mouth two times a day. Three times per day as directed PRN aspirin, enteric coated (ASPIRIN, ENTERIC COATED) 81 mg EC tablet Take 1 tablet by mouth once daily. insulin degludec (TRESIBA FLEXTOUCH U-200) 200 unit/mL (3 mL) injection Inject 120 Units subcutaneously daily at bedtime. amLODIPine (NORVASC) 2.5 mg tablet Take 1 tablet by mouth once daily. Insulin Spruce, Disposable, 32 gauge x 5/32 Use with insulin 4 times a day. Dx: E11.40; Z79.4 blood sugar diagnostic (BLOOD GLUCOSE TEST) test strip Test blood sugar(s) 4-5 times daily Dx: Type 2 DM - Uncontrolled E11.65 Insulin: Yes BIOTIN ORAL Take 1 tablet by mouth once daily. Fish Oil-Jackson-3 Fatty Acids (FISH OIL OMEGA 3-6-9) 300-1,000 mg CpDR Take 3000 mg daily. Lancets (ONE TOUCH ULTRASOFT LANCETS) Misc lancets twice daily. Use as instructed ( may dispense Deuca brand) MULTIVITAMIN TAB Take one(1) tablet daily. VITAMIN C 1,000 MG TAB Take one(1) tablet daily. REVIEW OF SYSTEMS: Review of Systems Constitutional: Negative for chills, fever, malaise/fatigue and weight loss. HENT: Negative for hearing loss and sore throat. Eyes: Negative for blurred vision and double vision. Respiratory: Positive for shortness of breath. Cardiovascular: Negative for chest pain and leg swelling. Gastrointestinal: Negative. Genitourinary: Negative for dysuria, frequency, hematuria and urgency. Musculoskeletal: Negative. Skin: Negative. Neurological: Negative for dizziness, seizures, loss of consciousness, weakness and headaches. Endo/Heme/Allergies: Negative for environmental allergies. Does not bruise/bleed easily. Psychiatric/Behavioral: Negative for depression. PHYSICAL EXAMINATION: BP 126/64 (BP Site: Right Arm, BP Position: Sitting, BP Cuff Size: Large Adult) Pulse 80 Resp 16 Ht 170.2 cm (5' 7) Wt 130.4 kg (287 lb 6.4 oz) SpO2 98% BMI 45.01 kg/m General: Obese gentleman sitting comfortable no [...] angioplasty. Using intravascular ultrasound guidance a 3.0 x 48 mm Synergy stent was deployed and postdilated to 4.2 mm proximally and 3.6 mm on the distal edge. The mid to distal and distal LAD have mild diffuse disease. Cardiac catheterization Dr. Amaro 12/29/19: RCA: Flush [...] branches with mild to moderate diffuse disease. Echocardiogram 08/27/2022: - The left ventricle is normal in size. Left ventricular systolic function is normal. EF = 61 5% (2D biplane) Definity contrast used for endocardial border detection. Left ventricular diastolic function was not evaluated due to AF. - The right ventricle is normal in size. Right ventricular systolic function is normal. - The left atrial cavity is mildly dilated. - The visualized aorta is borderline dilated with a maximal dimension of 3.8 cm. - There are no significant valvular abnormalities. Echocardiogram 12/10/2019 [facility]: Technically difficult study Grossly normal LV function and size. Estimated ejection fraction 65%. The left atrium is severely enlarged. There is mild mitral annular calcification Trivial mitral valve insufficiency Trivial tricuspid valve insufficiency Mild aortic stenosis. Right ventricular systolic pressure estimated to be 40 mmHg. I have personally reviewed the Cardiac Catheterization/Percutaneous Coronary Intervention (PCI). IMPRESSION: Mr. Moya is a 74 year old morbidly obese gentleman with a [...] AND RECOMMENDATIONS: 1. Coronary artery disease of [place] artery of [place] heart with stable angina pectoris - ICD9: 414.01, 413.9, ICD10: I25.118 (primary diagnosis) Patient has not had recent restratification. I will schedule him for pharmacological stress test. - NM CARDIAC PERF STRESS/PHARM - REGADENOSON 0.4 MG/5 ML INTRAVENOUS SYRINGE - AMINOPHYLLINE 250 MG/10 ML INTRAVENOUS SOLUTION - METOPROLOL TARTRATE 5 MG/5 ML INTRAVENOUS SOLUTION 2. Chronic diastolic congestive heart failure (HCC) - ICD9: 428.32, 428.0, ICD10: I50.32 Adequate control on current diuretic therapy 3. Atherosclerosis of aorta - ICD9: 440.0, ICD10: I70.0 4. Persistent atrial fibrillation (HCC) - ICD9: 427.31, ICD10: I48.19 Heart rates adequate controlled on current dose of metoprolol. Patient has refused anticoagulation therapy 5. Essential hypertension - ICD9: 401.9, ICD10: I10 Well-controlled on current regimen. 6. Other hyperlipidemia - ICD9: 272.4, ICD10: E78.49 Patient has done very well on Praluent. Most recent fasting lipid panel was reviewed. LDL cholesterol 32 mg/dL. He was notified by his insurance company that he may not be eligible for continuing therapy with Praluent. Have asked him to contact her insurance company in regards to Praluent versus Repatha. 7. Statin intolerance - ICD9: 995.27, ICD10: Z78.9 8. ROBIN (dyspnea on exertion) - ICD9: 786.09, ICD10: R06.09 - NM CARDIAC PERF STRESS/PHARM - REGADENOSON 0.4 MG/5 ML INTRAVENOUS SYRINGE - AMINOPHYLLINE 250 MG/10 ML INTRAVENOUS SOLUTION - METOPROLOL TARTRATE 5 MG/5 ML INTRAVENOUS SOLUTION Regulo Stover MD documented in this encounter [facility] 08-10-2024 Note HNO ID: [id number] Author: REGULO STOVER MD Service: ? Author Type: Physician Type: Progress Notes Filed: 08/10/2024 08:53 Note Text: [facility] CARDIOLOGY Cardiology ([address]) [address] [facility] [id number] OUTPATIENT VISIT DATE 08/10/2024 PRIMARY CARE PHYSICIAN: Krishna Reynolds [address] [place] [address] HISTORY OF PRESENT ILLNESS: Mr. Moya is a 74 year old morbidly obese gentleman with a history of coronary artery disease and prior high risk coronary intervention, diabetes (insulin requiring), chronic diastolic congestive heart failure, hypertension, obstructive sleep apnea (noncompliant with CPAP) and dyslipidemia who presents for routine follow-up. Patient continues to have shortness of breath on exertion. Patient feels like his symptoms are slightly worse than baseline. He has not had symptoms consistent with PND orthopnea. He has trace lower extremity swelling and is compliant with low-sodium diet and compression stockings. He denies palpitations, lightheadedness, dizziness, or syncope. PAST MEDICAL HISTORY Diagnosis Date Acute kidney injury (DANIELA) with acute tubular necrosis (ATN) 11/06/2019 CAD (coronary artery disease) 10/07/2007 70% stenosis circumflex 2nd marginal branch. Drug eluting stent done. Diabetic ulcer of toe of left foot associated with type 2 diabetes mellitus (HCC) 06/21/2020 Esophageal reflux Generalized osteoarthrosis, unspecified site Hydrocele, acquired 07/04/2023 Nephrolithiasis 10/17/2016 NEUROPATHY IN DIABETES 01/30/2006 Nonspecific abnormal results of liver function study Obesity, unspecified JAMES (obstructive sleep apnea) 08/13/2013 declined tx Osteomyelitis of second toe of right foot (HCC) 09/17/2019 Osteomyelitis of third toe of right foot (HCC) 09/17/2019 Other and unspecified hyperlipidemia Paroxysmal atrial fibrillation (HCC) 10/07/2007 Personal history of contact with and (suspected) exposure to asbestos Testicular cyst 07/26/2023 Type II or unspecified type diabetes mellitus [...] cath, L heart LEFT HEART CATH,PERCUTANEOUS 12/29/2019 [facility] TONSILLECTOMY PRIMARY/SECONDARY Tonsillectomy TRANSCATH STENT INIT VESSEL,PERCUT 11/10/2007 Transcath stent init vessel percut, DILIA VASECTOMY UNI/BI SPX W/POSTOP SEMEN EXAMS 1977 SOCIAL HISTORY Social History Tobacco Use Smoking status: Never Smokeless tobacco: Current Types: Chew Vaping Use Vaping status: Never Used Substance Use Topics Alcohol use: Yes Comment: Rare Drug use: Never FAMILY HISTORY Problem Relation Age of Onset Hypertension Mother Stroke Mother Lipids Mother Heart Father Thyroid Sister Cancer Brother 48 bladder and kidney ALLERGIES: ALLERGIES Allergen Reactions Metolazone Rash Altace [Ramipril] Intolerance Bactrim [Sulfametho* Hives Diovan [Valsartan] Propofol Other: See Comments agitation Ramipril Seasonal Allergies Other: See Comments Pvtpxin-Gpf-Pfg Red* Other: See Comments Muscle aches MEDICATIONS: insulin aspart U-100 (NOVOLOG FLEXPEN U-100 INSULIN) 100 unit/mL (3 mL) Inject 25 Units subcutaneously three times a day before meals. Sliding scale 3 times daily. (80 units daily max) metoprolol tartrate, short acting, (LOPRESSOR) 50 mg tablet Take 1 tablet by mouth three times a day. clopidogrel (PLAVIX) 75 mg tablet Take 1 tablet by mouth once daily. gabapentin (NEURONTIN) 100 mg capsule Take 1 capsule by mouth three times a day for 360 days. alirocumab (PRALUENT PEN) 75 mg/mL pen Inject 1 mL subcutaneously every other week. nitroglycerin sublingual (NITROQUICK) 0.4 mg SL tablet Dissolve 1 tablet under the tongue every 5 minutes as needed for chest pain. IF NO PAIN RELIEF WITH 2ND DOSE, CALL 911 spironolactone (ALDACTONE) 25 mg tablet Take 1 tablet by mouth once daily. furosemide (LASIX) 80 mg tablet Take 1 tablet by mouth two times a day. Three times per day as directed PRN aspirin, enteric coated (ASPIRIN, ENTERIC COATED) 81 mg EC tablet Take 1 tablet by mouth once daily. insulin degludec (TRESIBA FLEXTOUCH U-200) 200 unit/mL (3 mL) injection Inject 120 Units subcutaneously daily at bedtime. amLODIPine (NORVASC) 2.5 mg tablet Take 1 tablet by mouth once daily. Insulin Spruce, Disposable, 32 gauge x 5/32 Use with insulin 4 (more content not included)... [facility] 08-04-2024 Telephone encounter Note Pharmacy notified. They will order this for pt to picker and sorter load and unload. Pharmacy will notified pts spouse. [facility] 08-04-2024 Miscellaneous Notes Pharmacy notified. They will order this for pt to picker and sorter load and unload. Pharmacy will notified pts spouse. MIGUELANGEL MOYA (Armijo: [id number]) Rx #: [id number] Tresiba FlexTouch (insulin degludec injection) 200 Units/mL solution Form [employer] Electronic Prior Authorization Request Form (2016 NCPDP) Created 2 days ago Sent to Plan 2 days ago Plan Response 2 days ago Submit Clinical Questions 5 minutes ago Determination Favorable 3 minutes ago Message from Plan Approved. This drug has been approved under the Member's Medicare Part D benefit. Approved quantity: 54 units per 90 day(s). You may fill up to a 90 day supply except for those on Specialty Tier 5, which can be filled up to a 30 day supply. Please call the pharmacy to process the prescription claim.. Authorization Expiration Date: March 24, 2099. Per pharmacy PA is needed for the brand name tresiba pt's formulary is the generic but pharmacy says this is not available per manufacture(on back order). Pharmacy says she called the insurance and they would not allow an override code. PA was needed. This was completed on covermymed. MIGUELANGEL MOYA (Armijo: [id number]) - [id number] Tresiba FlexTouch (insulin degludec injection) 200 Units/mL solution status: PA Request Created: August 02, 2024 [id number] Sent: August 04, 2024 documented in this encounter [facility] 08-04-2024 Telephone encounter Note MIGUELANGEL MOYA (Armijo: [id number]) Rx #: [id number] Tresiba FlexTouch (insulin degludec injection) 200 Units/mL solution Form [employer] Electronic Prior Authorization Request Form (2016 NCPDP) Created 2 days ago Sent to Plan 2 days ago Plan Response 2 days ago Submit Clinical Questions 5 minutes ago Determination Favorable 3 minutes ago Message from Plan Approved. This drug has been approved under the Member's Medicare Part D benefit. Approved quantity: 54 units per 90 day(s). You may fill up to a 90 day supply except for those on Specialty Tier 5, which can be filled up to a 30 day supply. Please call the pharmacy to process the prescription claim.. Authorization Expiration Date: March 24, 2099. [facility] 08-04-2024 Telephone encounter Note Per pharmacy PA is needed for the brand name tresiba pt's formulary is the generic but pharmacy says this is not available per manufacture(on back order). Pharmacy says she called the insurance and they would not allow an override code. PA was needed. This was completed on covermymed. MIGUELANGEL MOYA (Armijo: [id number]) - [id number] Tresiba FlexTouch (insulin degludec injection) 200 Units/mL solution status: PA Request Created: August 02, 2024 [id number] Sent: August 04, 2024 [facility] 06-10-2024 Instructions Krishna Reynolds MD - 06/10/2024 9:23 AM EDT Screening schedule The following prevention plan is recommended: LDL Cholesterol due on 05/26/2023 DTaP,Tdap,Td Vaccine(2 - Td or Tdap) due on 02/16/2024 Urine Albumin:Creatinine Ratio due on 02/16/2024 Advance Directive Discussion due on 03/25/2024 Covid-19 Vaccine() due on 05/26/2024 Diabetic Foot Exam due on 05/20/2024 WHAT YOU CAN DO TO PREVENT FALLS Many falls can be prevented. By making some changes, you can lower your chances of falling. Four things YOU can do to prevent falls for you* and your caregiver 1. Begin a regular exercise program Exercise is one of the most important ways to lower your chances of falling. It makes you stronger and helps you feel better. Exercises that improve balance and coordination (like Aj Chi) are the most helpful. Lack of exercise leads to weakness and increases your chances of falling. Ask your doctor or health care provider about the best type of exercise program for you. 2. Have your health care provider review your medicines Have your doctor or pharmacist review all the medicines you take, even [id number] medicines. As you get older, the way medicines work in your body can change. Some medicines, or combinations of medicines, can make you sleepy or dizzy and can cause you to fall. 3. Have your vision checked Have your eyes checked by an eye doctor at least once a year. You may be wearing the wrong glasses or have a condition like glaucoma or cataracts that limits your vision. Poor vision can increase your chances of falling. 4. Make your home safer About half of all falls happen at home. To make your home safer: Remove things you can trip over (like papers, books, clothes, and shoes) from stairs and places where you walk. Remove small throw rugs or use double-sided tape to keep the rugs from slipping. Keep items you use often in cabinets you can reach easily without using a step stool. Have grab bars put in next to your toilet and in the tub or shower. Use non-slip mats in the bathtub and on shower floors. Improve the lighting in your home. As you get older, you need brighter lights to see well. Hang light-weight curtains or shades to reduce glare. Have handrails and lights put in on all staircases. Wear shoes both inside and outside the house. Avoid going barefoot or wearing slippers. For more information, contact: Centers for Disease Control and Prevention www.cdc.gov/injury * This information may not apply if you have certain medical conditions. documented in this encounter [facility] 06-10-2024 Note HNO ID: [id number] Author: KRISHNA REYNOLDS MD Service: ? Author Type: Physician Type: Progress Notes Filed: 06/10/2024 09:54 Note Text: This note was created using [employer]af[employer]. Subjective Miguelangel Moya is a 73 year old male. His diabetes mellitus and lipids were controlled. We reviewed his labs. His insulin Fiasp will need changed to insulin aspart flexpen, and Tresiba will need changed to insulin degludec? This was stated in a letter from their insurance. Review of Systems Constitutional: Negative for fatigue, fever and unexpected weight change. Respiratory: Negative for cough and shortness of breath. Cardiovascular: Negative for chest pain, palpitations and leg swelling. Gastrointestinal: Negative for abdominal pain, constipation and diarrhea. Genitourinary: Negative for difficulty urinating. Skin: Negative for wound. Neurological: Positive for numbness. Negative for dizziness and light-headedness. ACTIVE PROBLEM LIST Generalized Osteoarthrosis, Unspecified Site Esophageal Reflux Venous (Peripheral) Insufficiency Type 2 Diabetes Mellitus With Diabetic Neuropathy, With Long-Term Current Use of Insulin (Formerly [facility]) Class 3 Severe Obesity With Body Mass Index (Bmi) of 45.0 to 49.9 in Adult (Formerly [facility]) Other Hyperlipidemia Essential Hypertension Coronary Artery Disease of [place] Artery of [place] Heart With Stable Angina Pectoris ([facility]ly [facility]) Persistent Atrial Fibrillation (Formerly [facility]) Memory Disturbance Bph (Benign Prostatic Hyperplasia) History of Partial Amputation of Toe (Formerly [facility]) Robin (Dyspnea On Exertion) Statin Intolerance Chronic Diastolic Congestive Heart Failure (Hcc) Valvular Heart Disease Non-Seasonal Allergic Rhinitis Hypertensive Heart Disease With Chronic Diastolic Congestive Heart Failure ([facility]) Atherosclerosis of Aorta (Hcc) Social History Tobacco Use Smoking status: Never Smokeless tobacco: Current Types: Chew Vaping Use Vaping status: Never Used Substance Use Topics Alcohol use: Yes Comment: Rare Drug use: Never Current Outpatient Medications Medication Sig metoprolol tartrate, short acting, (LOPRESSOR) 50 mg tablet Take 1 tablet by mouth three times a day. clopidogrel (PLAVIX) 75 mg tablet Take 1 tablet by mouth once daily. gabapentin (NEURONTIN) 100 mg capsule Take 1 capsule by mouth three times a day for 360 days. insulin aspart, niacinamide, (FIASP FLEXTOUCH U-100 INSULIN) 100 unit/mL (3 mL) pen Inject 25 units 3 times a day with meals PLUS Sliding scale as based on pre meal blood sugar as directed (~ 68 units daily) alirocumab (PRALUENT PEN) 75 mg/mL pen Inject 1 mL subcutaneously every other week. nitroglycerin sublingual (NITROQUICK) 0.4 mg SL tablet Dissolve 1 tablet under the tongue every 5 minutes as needed for chest pain. IF NO PAIN RELIEF WITH 2ND DOSE, CALL 911 spironolactone (ALDACTONE) 25 mg tablet Take 1 tablet by mouth once daily. furosemide (LASIX) 80 mg tablet Take 1 tablet by mouth two times a day. Three times per day as directed PRN aspirin, enteric coated (ASPIRIN, ENTERIC COATED) 81 mg EC tablet Take 1 tablet by mouth once daily. insulin degludec (TRESIBA FLEXTOUCH U-200) 200 unit/mL (3 mL) injection Inject 120 Units subcutaneously daily at bedtime. amLODIPine (NORVASC) 2.5 mg tablet Take 1 tablet by mouth once daily. Insulin Spruce, Disposable, 32 gauge x 5/32 Use with insulin 4 times a day. Dx: E11.40; Z79.4 blood sugar diagnostic (BLOOD GLUCOSE TEST) test strip Test blood sugar(s) 4-5 times daily Dx: Type 2 DM - Uncontrolled E11.65 Insulin: Yes BIOTIN ORAL Take 1 tablet by mouth once daily. Fish Oil-Jackson-3 Fatty Acids (FISH OIL OMEGA 3-6-9) 300-1,000 mg CpDR Take 3000 mg daily. Lancets (ONE TOUCH ULTRASOFT LANCETS) Misc lancets twice daily. Use as instructed ( may dispense Deuca brand) MULTIVITAMIN TAB Take one(1) tablet daily. VITAMIN C 1,000 MG TAB Take one(1) tablet daily. No current facility-administered medications for this visit. Objective BP 118/60 (BP Site: Left Arm, BP Position: Sitting, BP Cuff Size: Large Adult) Pulse 64 Temp 36.6 ?C (97.9 ?F) (Temporal) Resp 18 Ht 170.8 cm (5' 7.25) Wt 129.1 kg (284 lb 9.8 oz) BMI 44.25 kg/m? Physical Exam Constitutional: General: He is not in acute distress. Appearance: He is not ill-appearing. HENT: Nose: No congestion or rhinorrhea. Cardiovascular: Rate and Rhythm: Normal rate. Rhythm irregular. Pulses: Decreased pulses. Heart sounds: S1 normal and S2 normal. Murmur heard. Systolic murmur is present with a grade of 1/6. Musculoskeletal: Right lower leg: No edema. Left lower leg: No edema. Neurological: General: No focal deficit present. Mental Status: He is alert. Comments: Ambulatory with cane. Feet:Shoes and socks removed, No ulcers, calluses, and abnormal pulses Decreased bilaterally. Feet:not sensitive to monofilament both feet and nails notable for Deformed, Hypertrophic, or Yellowish. Multiple toes (more content not included)... [facility] 06-10-2024 History of Presen t illness Narrative This note was created using [employer]. Subjective Miguelangel Moya is a 73 year old male. His diabetes mellitus and lipids were controlled. We reviewed his labs. His insulin Fiasp will need changed to insulin aspart flexpen, and Tresiba will need changed to insulin degludec? This was stated in a letter from their insurance. Review of Systems Constitutional: Negative for fatigue, fever and unexpected weight change. Respiratory: Negative for cough and shortness of breath. Cardiovascular: Negative for chest pain, palpitations and leg swelling. Gastrointestinal: Negative for abdominal pain, constipation and diarrhea. Genitourinary: Negative for difficulty urinating. Skin: Negative for wound. Neurological: Positive for numbness. Negative for dizziness and light-headedness. ACTIVE PROBLEM LIST Generalized Osteoarthrosis, Unspecified Site Esophageal Reflux Venous (Peripheral) Insufficiency Type 2 Diabetes Mellitus With Diabetic Neuropathy, With Long-Term Current Use of Insulin (Former[facility]) Class 3 Severe Obesity With Body Mass Index (Bmi) of 45.0 to 49.9 in Adult (Hcc) Other Hyperlipidemia Essential Hypertension Coronary Artery Disease of [place] Artery of [place] Heart With Stable Angina Pectoris (Hcc) Persistent Atrial Fibrillation (Hcc) Memory Disturbance Bph (Benign Prostatic Hyperplasia) History of Partial Amputation of Toe (Hcc) Robin (Dyspnea On Exertion) Statin Intolerance Chronic Diastolic Congestive Heart Failure (Hcc) Valvular Heart Disease Non-Seasonal Allergic Rhinitis Hypertensive Heart Disease With Chronic Diastolic Congestive Heart Failure (Hcc) Atherosclerosis of Aorta (Hcc) Social History Tobacco Use Smoking status: Never Smokeless tobacco: Current Types: Chew Vaping Use Vaping status: Never Used Substance Use Topics Alcohol use: Yes Comment: Rare Drug use: Never Current Outpatient Medications Medication Sig metoprolol tartrate, short acting, (LOPRESSOR) 50 mg tablet Take 1 tablet by mouth three times a day. clopidogrel (PLAVIX) 75 mg tablet Take 1 tablet by mouth once daily. gabapentin (NEURONTIN) 100 mg capsule Take 1 capsule by mouth three times a day for 360 days. insulin aspart, niacinamide, (FIASP FLEXTOUCH U-100 INSULIN) 100 unit/mL (3 mL) pen Inject 25 units 3 times a day with meals PLUS Sliding scale as based on pre meal blood sugar as directed (~ 68 units daily) alirocumab (PRALUENT PEN) 75 mg/mL pen Inject 1 mL subcutaneously every other week. nitroglycerin sublingual (NITROQUICK) 0.4 mg SL tablet Dissolve 1 tablet under the tongue every 5 minutes as needed for chest pain. IF NO PAIN RELIEF WITH 2ND DOSE, CALL 911 spironolactone (ALDACTONE) 25 mg tablet Take 1 tablet by mouth once daily. furosemide (LASIX) 80 mg tablet Take 1 tablet by mouth two times a day. Three times per day as directed PRN aspirin, enteric coated (ASPIRIN, ENTERIC COATED) 81 mg EC tablet Take 1 tablet by mouth once daily. insulin degludec (TRESIBA FLEXTOUCH U-200) 200 unit/mL (3 mL) injection Inject 120 Units subcutaneously daily at bedtime. amLODIPine (NORVASC) 2.5 mg tablet Take 1 tablet by mouth once daily. Insulin Spruce, Disposable, 32 gauge x 5/32 Use with insulin 4 times a day. Dx: E11.40; Z79.4 blood sugar diagnostic (BLOOD GLUCOSE TEST) test strip Test blood sugar(s) 4-5 times daily Dx: Type 2 DM - Uncontrolled E11.65 Insulin: Yes BIOTIN ORAL Take 1 tablet by mouth once daily. Fish Oil-Jackson-3 Fatty Acids (FISH OIL OMEGA 3-6-9) 300-1,000 mg CpDR Take 3000 mg daily. Lancets (ONE TOUCH ULTRASOFT LANCETS) Misc lancets twice daily. Use as instructed ( may dispense Deuca brand) MULTIVITAMIN TAB Take one(1) tablet daily. VITAMIN C 1,000 MG TAB Take one(1) tablet daily. No current facility-administered medications for this visit. Objective BP 118/60 (BP Site: Left Arm, BP Position: Sitting, BP Cuff Size: Large Adult) Pulse 64 Temp 36.6 C (97.9 F) (Temporal) Resp 18 Ht 170.8 cm (5' 7.25) Wt 129.1 kg (284 lb 9.8 oz) BMI 44.25 kg/m Physical Exam Constitutional: General: He is not in acute distress. Appearance: He is not ill-appearing. HENT: Nose: No congestion or rhinorrhea. Cardiovascular: Rate and Rhythm: Normal rate. Rhythm irregular. Pulses: Decreased pulses. Heart sounds: S1 normal and S2 normal. Murmur heard. Systolic murmur is present with a grade of 1/6. Musculoskeletal: Right lower leg: No edema. Left lower leg: No edema. Neurological: General: No focal deficit present. Mental Status: He is alert. Comments: Ambulatory with cane. Feet:Shoes and socks removed, No ulcers, calluses, and abnormal pulses Decreased bilaterally. Feet:not sensitive to monofilament both feet and nails notable for Deformed, Hypertrophic, or Yellowish. Multiple toes with no nails or partial amputation. Test results pertinent to today's visit were reviewed and discussed with the patient. Assessment and Plan 1. Medicare annual wellness visit, subsequent - ICD9: V70.0, ICD10: Z00.00 (primary diagnosis) - See wellness visit. - ADVANCE CARE PLAN DISCUSSION 2. Encounter for immunization - ICD9: V03.89, ICD10: Z23 - [employer] COVID-19 VACCINE AGE 12+ YR ([place]Y) 3. Chronic diastolic congestive heart failure (HCC) - ICD9: 428.32, 428.0, ICD10: I50.32 - Stable. - Continue current medications 4. Atrial fibrillation, unspecified type (HCC) - ICD9: 427.31, ICD10: I48.91 - Controlled. Not anticoagulated due to history of bleeding. 5. Class 3 severe obesity due to excess calories with serious comorbidity and body mass index (BMI) of 45.0 to 49.9 in adult (HCC) - ICD9: 278.01, V85.42, ICD10: E66.813, Z68.42, E66.01 Stable - Behavioral intervention 6. Type 2 diabetes mellitus with diabetic neuropathy, with long-term current use of insulin (HCC) - ICD9: 250.60, 357.2, V58.67, ICD10: E11.40, Z79.4 - Controlled - I changed insulin to Novolog. Insulin degludec is still Tresiba so this formulary change will need clarification. - INSULIN ASPART (U-100) 100 UNIT/ML (3 ML) SUBCUTANEOUS PEN - BASIC METABOLIC PANEL - HEMOGLOBIN A1C - BASIC METABOLIC PANEL - HEMOGLOBIN A1C 7. Essential hypertension - ICD9: 401.9, ICD10: I10 - Controlled - Continue current medications 8. Coronary artery disease of [place] artery of [place] heart with stable angina pectoris (HCC) - ICD9: 414.01, 413.9, ICD10: I25.118 - Stable. He will see cardiology. 9. Persistent atrial fibrillation (HCC) - ICD9: 427.31, ICD10: I48.19 - Rate controlled. 10. Venous (peripheral) insufficiency - ICD9: 459.81, ICD10: I87.2 - Controlled. 11. Other hyperlipidemia - ICD9: 272.4, ICD10: E78.49 - His assistance program for PRALUENT may need revision or change. He will talk to cardiology. - LIPID PANEL, FASTING - LIPID PANEL, FASTING Krishna Reynolds MD Images from the original note were not included. Miguelangel Moya is a 73 year old male here for a Medicare wellness visit. Medicare Health Risk Assessment General Health Fair Exercise: Minutes/Day 30 min Exercise: Days/Week 2 days Alcohol: Daily Use Never Alcohol: Drinks/Day Patient does not drink Alcohol: 6 or more drinks Never Feel off balance Yes Concerns: Teeth/Dentures No Concerns: Sexual function No Troubled by feelings None of the above Frequency: Eating healthy diet ADLs requiring help Housework; Bathing; Walking Safety precautions in home/vehicle Yes Smoke, vape, chews tobacco Yes, but I'm not ready to quit Difficulty hearing No Difficulty seeing No Current Providers Specialists: I have reviewed specialist-related care of the patient in the medical record. Current care team: Patient Care Team: Krishna Reynolds MD as PCP - General Leila Suárez, PEREZ.CAR CHECKER as Type Bar And Segment Assembler (Internal Medicine) Regulo Stover MD (Cardiology) Arabella Heredia DPM as Referring (Podiatry) Outside Specialists: Gaby Kraus MD (Inactive) (Nephrology) Mitchel Aleman MD as Physician (Ophthalmology) Medical/Family history review Reviewed and updated problem list, medical/surgical/family/social history, medications, and allergies. Opioid use review Opioid Medications (last 90 days) No data to display Anxiety/Depression screening Recommendation: no further intervention at this time Cognitive screening Mini Cog Score: 5 Cognitive screening reviewed and No further action needed (score 3-5). Functional Observation Was the patient's Timed Up & Go test unsteady or >= 12 seconds? No Advance Care Planning Surrogate decision maker and/or advance care plan documented Measurements BP 118/60 (BP Site: Left Arm, BP Position: Sitting, BP Cuff Size: Large Adult) Pulse 64 Temp 36.6 C (97.9 F) (Temporal) Resp 18 Ht 170.8 cm (5' 7.25) Wt 129.1 kg (284 lb 9.8 oz) BMI 44.25 kg/m Vision Screening: Follows with optometry/ophthalmology Declines visual acuity screen Assessment/Plan Medicare annual wellness visit, subsequent (Z00.00) - Counseled on healthy diet and regular exercise - Fall avoidance information provided - Personalized prevention plan provided - Discussed need for and benefit of weight loss. BMI 44.25 kg/(m^2) - Covid vaccine. documented in this encounter [facility] 06-10-2024 Note HNO ID: [id number] Author: KRISHNA REYNOLDS MD Service: ? Author Type: Physician Type: Progress Notes Filed: 06/10/2024 09:54 Note Text: Miguelangel Moya is a 73 year old male here for a Medicare wellness visit. Medicare Health Risk Assessment General Health Fair Exercise: Minutes/Day 30 min Exercise: Days/Week 2 days Alcohol: Daily Use Never Alcohol: Drinks/Day Patient does not drink Alcohol: 6 or more drinks Never Feel off balance Yes Concerns: Teeth/Dentures No Concerns: Sexual function No Troubled by feelings None of the above Frequency: Eating healthy diet ADLs requiring help Housework; Bathing; Walking Safety precautions in home/vehicle Yes Smoke, vape, chews tobacco Yes, but I'm not ready to quit Difficulty hearing No Difficulty seeing No Current Providers Specialists: I have reviewed specialist-related care of the patient in the medical record. Current care team: Patient Care Team: Krishna Reynolds MD as PCP - General Leila Suárez, 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 as Type Bar And Segment Assembler (Internal Medicine) Regulo Stover MD (Cardiology) Arabella Heredia DPM as Referring (Podiatry) Outside Specialists: Gaby Kraus MD (Inactive) (Nephrology) Mitchel Aleman MD as Physician (Ophthalmology) Medical/Family history review Reviewed and updated problem list, medical/surgical/family/social history, medications, and allergies. Opioid use review Opioid Medications (last 90 days) No data to display Anxiety/Depression screening Recommendation: no further intervention at this time Cognitive screening Mini Cog Score: 5 Cognitive screening reviewed and No further action needed (score 3-5). Functional Observation Was the patient's Timed Up AND Go test unsteady or >= 12 seconds? No Advance Care Planning Surrogate decision maker and/or advance care plan documented Measurements BP 118/60 (BP Site: Left Arm, BP Position: Sitting, BP Cuff Size: Large Adult) Pulse 64 Temp 36.6 ?C (97.9 ?F) (Temporal) Resp 18 Ht 170.8 cm (5' 7.25) Wt 129.1 kg (284 lb 9.8 oz) BMI 44.25 kg/m? Vision Screening: Follows with optometry/ophthalmology Declines visual acuity screen Assessment/Plan Medicare annual wellness visit, subsequent (Z00.00) - Counseled on healthy diet and regular exercise - Fall avoidance information provided - Personalized prevention plan provided - Discussed need for and benefit of weight loss. BMI 44.25 kg/(m2) - Covid vaccine. [facility] 05-28-2024 Telephone encounter Note Prescription Refill Information The patient has been identified by name and date of : Yes Caregiver verified no other encounters exist for this prescription request: Yes Caregiver confirmed with patient/requestor that no other refills are due, in the near future, with this provider at this time: Yes The last office visit in the department: 02/10/2024 Does the patient have a future office visit with this provider/department: Yes Requested Prescriptions Pending Prescriptions Disp Refills metoprolol tartrate, short acting, (LOPRESSOR) 50 mg tablet 270 tablet 3 Sig: Take 1 tablet by mouth three times a day. clopidogrel (PLAVIX) 75 mg tablet 90 tablet 3 Sig: Take 1 tablet by mouth once daily. Guillermina Pires May 28, 2024 9:09 AM [facility] 05-28-2024 Miscellaneous Notes Prescription Refill Information The patient has been identified by name and date of : Yes Caregiver verified no other encounters exist for this prescription request: Yes Caregiver confirmed with patient/requestor that no other refills are due, in the near future, with this provider at this time: Yes The last office visit in the department: 02/10/2024 Does the patient have a future office visit with this provider/department: Yes Requested Prescriptions Pending Prescriptions Disp Refills metoprolol tartrate, short acting, (LOPRESSOR) 50 mg tablet 270 tablet 3 Sig: Take 1 tablet by mouth three times a day. clopidogrel (PLAVIX) 75 mg tablet 90 tablet 3 Sig: Take 1 tablet by mouth once daily. Guillermina Pires May 28, 2024 9:09 AM documented in this encounter [facility] 05-25-2024 Note HNO ID: [id number] Author: ARABELLA HEREDIA DPM Service: ? Author Type: Physician Type: Progress Notes Filed: 05/30/2024 18:44 Note Text: This 73 year old male presents for painful calluses bilateral feet. Prior partial toe amputation left. SMBGs are better. No other pedal complaints PAIN EVALUATION 05/25/2024 1004 Pain Level: 9 Pain Location: -- bilateral foot Description: Burning;Tingling;Numbness Duration Units: Years Frequency: Continuous PAST MEDICAL HISTORY Diagnosis Date Acute kidney injury (DANIELA) with acute tubular necrosis (ATN) ([facility]) 11/06/2019 CAD (coronary artery disease) 10/07/2007 70% stenosis circumflex 2nd marginal branch. Drug eluting stent done. Diabetic ulcer of toe of left foot associated with type 2 diabetes mellitus (HCC) 06/21/2020 Esophageal reflux Generalized osteoarthrosis, unspecified site Hydrocele, acquired 07/04/2023 Nephrolithiasis 10/17/2016 NEUROPATHY IN DIABETES 01/30/2006 Nonspecific abnormal results of liver function study Obesity, unspecified JAMES (obstructive sleep apnea) 08/13/2013 declined tx Osteomyelitis of second toe of right foot (HCC) 09/17/2019 Osteomyelitis of third toe of right foot (HCC) 09/17/2019 Other and unspecified hyperlipidemia Paroxysmal atrial fibrillation ([facility]) 10/07/2007 Personal history of contact with and (suspected) exposure to asbestos Testicular cyst 07/26/2023 Type II or unspecified type diabetes mellitus without mention of complication, not stated as uncontrolled Unspecified essential hypertension Unspecified venous (peripheral) insufficiency Current Outpatient Medications Medication Sig gabapentin (NEURONTIN) 100 mg capsule Take 1 capsule by mouth three times a day for 360 days. insulin aspart, niacinamide, (FIASP FLEXTOUCH U-100 INSULIN) 100 unit/mL (3 mL) pen Inject 25 units 3 times a day with meals PLUS Sliding scale as based on pre meal blood sugar as directed (~ 68 units daily) nitroglycerin sublingual (NITROQUICK) 0.4 mg SL tablet Dissolve 1 tablet under the tongue every 5 minutes as needed for chest pain. IF NO PAIN RELIEF WITH 2ND DOSE, CALL 911 spironolactone (ALDACTONE) 25 mg tablet Take 1 tablet by mouth once daily. furosemide (LASIX) 80 mg tablet Take 1 tablet by mouth two times a day. Three times per day as directed PRN aspirin, enteric coated (ASPIRIN, ENTERIC COATED) 81 mg EC tablet Take 1 tablet by mouth once daily. insulin degludec (TRESIBA FLEXTOUCH U-200) 200 unit/mL (3 mL) injection Inject 120 Units subcutaneously daily at bedtime. amLODIPine (NORVASC) 2.5 mg tablet Take 1 tablet by mouth once daily. Insulin Spruce, Disposable, 32 gauge x Use with insulin 4 times a day. Dx: E11.40; Z79.4 clopidogrel (PLAVIX) 75 mg tablet Take 1 tablet by mouth once daily. metoprolol tartrate, short acting, (LOPRESSOR) 50 mg tablet Take 1 tablet by mouth three times a day. blood sugar diagnostic (BLOOD GLUCOSE TEST) test strip Test blood sugar(s) 4-5 times daily Dx: Type 2 DM - Uncontrolled E11.65 Insulin: Yes BIOTIN ORAL Take 1 tablet by mouth once daily. Fish Oil-Jackson-3 Fatty Acids (FISH OIL OMEGA 3-6-9) 300-1,000 mg CpDR Take 3000 mg daily. Lancets (ONE TOUCH ULTRASOFT LANCETS) Misc lancets twice daily. Use as instructed ( may dispense Deuca brand) MULTIVITAMIN TAB Take one(1) tablet daily. VITAMIN C 1,000 MG TAB Take one(1) tablet daily. alirocumab (PRALUENT PEN) 75 mg/mL pen Inject 1 mL subcutaneously every other week. No current facility-administered medications for this visit. ALLERGIES Allergen Reactions Metolazone Rash Altace [Ramipril] Intolerance Bactrim [Sulfametho* Hives Diovan [Valsartan] Propofol Other: See Comments agitation Ramipril Seasonal Allergies Other: See Comments Ogllhyg-Qej-Bkv Red* Other: See Comments Muscle aches OBJECTIVE: Patient presents WB with regular shoe gear Neurovascular status is grossly unchanged. Absent vibratory sensation at the hallux IPJ. Intact protective sensation hyperkeratotic tissue noted subfifth MTP joint left. Hyperkeratotic tissue also noted to the medial aspect of the to the plantar lateral foot x 2, left posterior heel. Hemoglobin A1C (%) Date Value 11/26/2020 9.1 08/15/2020 8.6 02/13/2020 7.6 10/01/2019 6.1 04/08/2019 6.0 HGBA1C (%) Date Value 11/30/2022 5.9 01/12/2022 6.3 Assessment: B/L callosities Better controlled type 2 diabetes PLAN: Treatment today consisted of -Exam -Debrided calluses x 3 Continue follow up with endo Continue with diabetic shoes Follow-up in 3 months or sooner corine Heredia DPM [facility] 05-25-2024 History of Presen t illness Narrative Images from the original note were not included. This 73 year old male presents for painful calluses bilateral feet. Prior partial toe amputation left. SMBGs are better. No other pedal complaints PAIN EVALUATION 05/25/2024 1004 Pain Level: 9 Pain Location: -- bilateral foot Description: Burning;Tingling;Numbness Duration Units: Years Frequency: Continuous PAST MEDICAL HISTORY Diagnosis Date Acute kidney injury (DANIELA) with acute tubular necrosis (ATN) ([facility]) 11/06/2019 CAD (coronary artery disease) 10/07/2007 70% stenosis circumflex 2nd marginal branch. Drug eluting stent done. Diabetic ulcer of toe of left foot associated with type 2 diabetes mellitus (HCC) 06/21/2020 Esophageal reflux Generalized osteoarthrosis, unspecified site Hydrocele, acquired 07/04/2023 Nephrolithiasis 10/17/2016 NEUROPATHY IN DIABETES 01/30/2006 Nonspecific abnormal results of liver function study Obesity, unspecified JAMES (obstructive sleep apnea) 08/13/2013 declined tx Osteomyelitis of second toe of right foot (HCC) 09/17/2019 Osteomyelitis of third toe of right foot (HCC) 09/17/2019 Other and unspecified hyperlipidemia Paroxysmal atrial fibrillation (HCC) 10/07/2007 Personal history of contact with and (suspected) exposure to asbestos Testicular cyst 07/26/2023 Type II or unspecified type diabetes mellitus without mention of complication, not stated as uncontrolled Unspecified essential hypertension Unspecified venous (peripheral) insufficiency Current Outpatient Medications Medication Sig gabapentin (NEURONTIN) 100 mg capsule Take 1 capsule by mouth three times a day for 360 days. insulin aspart, niacinamide, (FIASP FLEXTOUCH U-100 INSULIN) 100 unit/mL (3 mL) pen Inject 25 units 3 times a day with meals PLUS Sliding scale as based on pre meal blood sugar as directed (~ 68 units daily) nitroglycerin sublingual (NITROQUICK) 0.4 mg SL tablet Dissolve 1 tablet under the tongue every 5 minutes as needed for chest pain. IF NO PAIN RELIEF WITH 2ND DOSE, CALL 911 spironolactone (ALDACTONE) 25 mg tablet Take 1 tablet by mouth once daily. furosemide (LASIX) 80 mg tablet Take 1 tablet by mouth two times a day. Three times per day as directed PRN aspirin, enteric coated (ASPIRIN, ENTERIC COATED) 81 mg EC tablet Take 1 tablet by mouth once daily. insulin degludec (TRESIBA FLEXTOUCH U-200) 200 unit/mL (3 mL) injection Inject 120 Units subcutaneously daily at bedtime. amLODIPine (NORVASC) 2.5 mg tablet Take 1 tablet by mouth once daily. Insulin Spruce, Disposable, 32 gauge x Use with insulin 4 times a day. Dx: E11.40; Z79.4 clopidogrel (PLAVIX) 75 mg tablet Take 1 tablet by mouth once daily. metoprolol tartrate, short acting, (LOPRESSOR) 50 mg tablet Take 1 tablet by mouth three times a day. blood sugar diagnostic (BLOOD GLUCOSE TEST) test strip Test blood sugar(s) 4-5 times daily Dx: Type 2 DM - Uncontrolled E11.65 Insulin: Yes BIOTIN ORAL Take 1 tablet by mouth once daily. Fish Oil-Jackson-3 Fatty Acids (FISH OIL OMEGA 3-6-9) 300-1,000 mg CpDR Take 3000 mg daily. Lancets (ONE TOUCH ULTRASOFT LANCETS) Misc lancets twice daily. Use as instructed ( may dispense Deuca brand) MULTIVITAMIN TAB Take one(1) tablet daily. VITAMIN C 1,000 MG TAB Take one(1) tablet daily. alirocumab (PRALUENT PEN) 75 mg/mL pen Inject 1 mL subcutaneously every other week. No current facility-administered medications for this visit. ALLERGIES Allergen Reactions Metolazone Rash Altace [Ramipril] Intolerance Bactrim [Sulfametho* Hives Diovan [Valsartan] Propofol Other: See Comments agitation Ramipril Seasonal Allergies Other: See Comments Nrygdnp-Daq-Ebq Red* Other: See Comments Muscle aches OBJECTIVE: Patient presents WB with regular shoe gear Neurovascular status is grossly unchanged. Absent vibratory sensation at the hallux IPJ. Intact protective sensation hyperkeratotic tissue noted subfifth MTP joint left. Hyperkeratotic tissue also noted to the medial aspect of the to the plantar lateral foot x 2, left posterior heel. Hemoglobin A1C (%) Date Value 11/26/2020 9.1 08/15/2020 8.6 02/13/2020 7.6 10/01/2019 6.1 04/08/2019 6.0 HGBA1C (%) Date Value 11/30/2022 5.9 01/12/2022 6.3 Assessment: B/L callosities Better controlled type 2 diabetes PLAN: Treatment today consisted of -Exam -Debrided calluses x 3 Continue follow up with endo Continue with diabetic shoes Follow-up in 3 months or sooner soyn Arabella Heredia DPM documented in this encounter [facility] 04-30-2024 Telephone encounter Note Prescription Refill Information The patient has been identified by name and date of : Yes Caregiver verified no other encounters exist for this prescription request: Yes Caregiver confirmed with patient/requestor that no other refills are due, in the near future, with this provider at this time: Yes The last office visit in the department: 02/10/24 Does the patient have a future office visit with this provider/department: Yes Requested Prescriptions Pending Prescriptions Disp Refills gabapentin (NEURONTIN) 100 mg capsule 270 capsule 3 Sig: Take 1 capsule by mouth three times a day for 90 days. Patient's requested 90 days with 3 refills. Kalyani Serrato April 30, 2024 2:48 PM [facility] 04-30-2024 Miscellaneous Notes Prescription Refill Information The patient has been identified by name and date of : Yes Caregiver verified no other encounters exist for this prescription request: Yes Caregiver confirmed with patient/requestor that no other refills are due, in the near future, with this provider at this time: Yes The last office visit in the department: 02/10/24 Does the patient have a future office visit with this provider/department: Yes Requested Prescriptions Pending Prescriptions Disp Refills gabapentin (NEURONTIN) 100 mg capsule 270 capsule 3 Sig: Take 1 capsule by mouth three times a day for 90 days. Patient's requested 90 days with 3 refills. Kalyani Serrato April 30, 2024 2:48 PM documented in this encounter [facility] 04-14-2024 Telephone encounter Note Pt brought in handicap parking request. Pcp completed letter. 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 [facility] 04-14-2024 Miscellaneous Notes Pt brought in handicap parking request. Pcp completed letter. 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 documented in this encounter [facility] 03-07-2024 Telephone encounter Note Prescription Refill Information The patient has been identified by name and date of : Yes Caregiver verified no other encounters exist for this prescription request: Yes Caregiver confirmed with patient/requestor that no other refills are due, in the near future, with this provider at this time: Yes The last office visit in the department: 02/10/2024 Does the patient have a future office visit with this provider/department: Yes Requested Prescriptions Pending Prescriptions Disp Refills insulin aspart, niacinamide, (FIASP FLEXTOUCH U-100 INSULIN) 100 unit/mL (3 mL) pen 25 Each 3 Sig: Inject 25 units 3 times a day with meals PLUS Sliding scale as based on pre meal blood sugar as directed (~ 68 units daily) Guillermina Pires March 07, 2024 9:52 AM [facility] 03-07-2024 Miscellaneous Notes Prescription Refill Information The patient has been identified by name and date of : Yes Caregiver verified no other encounters exist for this prescription request: Yes Caregiver confirmed with patient/requestor that no other refills are due, in the near future, with this provider at this time: Yes The last office visit in the department: 02/10/2024 Does the patient have a future office visit with this provider/department: Yes Requested Prescriptions Pending Prescriptions Disp Refills insulin aspart, niacinamide, (FIASP FLEXTOUCH U-100 INSULIN) 100 unit/mL (3 mL) pen 25 Each 3 Sig: Inject 25 units 3 times a day with meals PLUS Sliding scale as based on pre meal blood sugar as directed (~ 68 units daily) Guillermina Pires March 07, 2024 9:52 AM documented in this encounter [facility] 02-10-2024 Note HNO ID: [id number] Author: KRISHNA REYNOLDS MD Service: ? Author Type: Physician Type: Progress Notes Filed: 02/10/2024 18:47 Note Text: This note was created using [employer]. Subjective Patient presents with: Pain Miguelangel Moya is a 73 year old male was here with Jessica. He developed progressive bilateral leg pain the past 1-2 month, from the knees down to his feet. His feet felt hot. Tylenol and leg compressions were not longer helping and he was now having insomnia. His diabetes mellitus was controlled, and he had no foot ulcer. He had known neuropathy with mild pain for years. Review of Systems Constitutional: Negative for fatigue and fever. Respiratory: Negative. Cardiovascular: Negative. Skin: Negative for rash and wound. Neurological: Negative for weakness and numbness. ACTIVE PROBLEM LIST Generalized Osteoarthrosis, Unspecified Site Esophageal Reflux Venous (Peripheral) Insufficiency Type 2 Diabetes Mellitus With Diabetic Neuropathy, With Long-Term Current Use of Insulin ([facility]) Class 3 Severe Obesity With Body Mass Index (Bmi) of 45.0 to 49.9 in Adult ([facility]) Other Hyperlipidemia Essential Hypertension Coronary Artery Disease of [place] Artery of [place] Heart With Stable Angina Pectoris ([facility]) Persistent Atrial Fibrillation ([facility]) Memory Disturbance Bph (Benign Prostatic Hyperplasia) History of Partial Amputation of Toe ([facility]) Robin (Dyspnea On Exertion) Statin Intolerance Chronic Diastolic Congestive Heart Failure (Hcc) Valvular Heart Disease Non-Seasonal Allergic Rhinitis Hypertensive Heart Disease With Chronic Diastolic Congestive Heart Failure ([facility]) Atherosclerosis of Aorta ([facility]) Social History Tobacco Use Smoking status: Never Smokeless tobacco: Current Types: Chew Vaping Use Vaping status: Never Used Substance Use Topics Alcohol use: Yes Comment: Rare Drug use: Never Current Outpatient Medications Medication Sig alirocumab (PRALUENT PEN) 75 mg/mL pen Inject 1 mL subcutaneously every other week. nitroglycerin sublingual (NITROQUICK) 0.4 mg SL tablet Dissolve 1 tablet under the tongue every 5 minutes as needed for chest pain. IF NO PAIN RELIEF WITH 2ND DOSE, CALL 911 spironolactone (ALDACTONE) 25 mg tablet Take 1 tablet by mouth once daily. furosemide (LASIX) 80 mg tablet Take 1 tablet by mouth two times a day. Three times per day as directed PRN aspirin, enteric coated (ASPIRIN, ENTERIC COATED) 81 mg EC tablet Take 1 tablet by mouth once daily. insulin degludec (TRESIBA FLEXTOUCH U-200) 200 unit/mL (3 mL) injection Inject 120 Units subcutaneously daily at bedtime. amLODIPine (NORVASC) 2.5 mg tablet Take 1 tablet by mouth once daily. Insulin Spruce, Disposable, 32 gauge x 5/32 Use with insulin 4 times a day. Dx: E11.40; Z79.4 clopidogrel (PLAVIX) 75 mg tablet Take 1 tablet by mouth once daily. metoprolol tartrate, short acting, (LOPRESSOR) 50 mg tablet Take 1 tablet by mouth three times a day. insulin aspart, niacinamide, (FIASP FLEXTOUCH U-100 INSULIN) 100 unit/mL (3 mL) pen Inject 25 units 3 times a day with meals PLUS Sliding scale as based on pre meal blood sugar as directed (~ 68 units daily) blood sugar diagnostic (BLOOD GLUCOSE TEST) test strip Test blood sugar(s) 4-5 times daily Dx: Type 2 DM - Uncontrolled E11.65 Insulin: Yes BIOTIN ORAL Take 1 tablet by mouth once daily. Fish Oil-Jackson-3 Fatty Acids (FISH OIL OMEGA 3-6-9) 300-1,000 mg CpDR Take 3000 mg daily. Lancets (ONE TOUCH ULTRASOFT LANCETS) Misc lancets twice daily. Use as instructed ( may dispense Deuca brand) MULTIVITAMIN TAB Take one(1) tablet daily. VITAMIN C 1,000 MG TAB Take one(1) tablet daily. flash glucose scanning reader (Tablelist IncSTFastFig MERCY 2 READER) Test blood sugar(s) 4-5 times daily Dx: Type 2 DM - Uncontrolled E11.65 Insulin: Yes (Patient not taking: Reported on 02/10/2024) flash glucose sensor (FREESTYLE MERCY 2 SENSOR) kit Test blood sugar(s) 4-5 times daily Dx: Type 2 DM - Uncontrolled E11.65 Insulin: Yes (Patient not taking: Reported on 11/18/2023) No current facility-administered medications for this visit. Objective BP 122/68 (BP Site: Left Arm, BP Position: Sitting, BP Cuff Size: Large Adult) Pulse 80 Temp 36.1 ?C (96.9 ?F) (Temporal) Resp 18 Wt 125.4 kg (276 lb 7.3 oz) BMI 43.30 kg/m? Physical Exam Constitutional: General: He is not in acute distress. Appearance: He is not ill-appearing. Pulmonary: Effort: Pulmonary effort is normal. Musculoskeletal: General: No tenderness. Right lower leg: No edema. Left lower leg: No edema. Neurological: General: No focal deficit present. Mental Status: He is alert. Comments: Ambulatory with cane. Assessment and Plan 1. Type 2 diabetes mellitus with diabetic neuropathy, with long-term current use of insulin ([facility]) - ICD9: 250.60, 357.2, V58.67, ICD10: E11.40, Z79.4 - Worsening control Shared Medical Decision Making was done: Medication: gabap (more content not included)... [facility] 02-10-2024 History of Presen t illness Narrative This note was created using [employer]. Subjective Patient presents with: Pain Miguelangel Moya is a 73 year old male was here with Jessica. He developed progressive bilateral leg pain the past 1-2 month, from the knees down to his feet. His feet felt hot. Tylenol and leg compressions were not longer helping and he was now having insomnia. His diabetes mellitus was controlled, and he had no foot ulcer. He had known neuropathy with mild pain for years. Review of Systems Constitutional: Negative for fatigue and fever. Respiratory: Negative. Cardiovascular: Negative. Skin: Negative for rash and wound. Neurological: Negative for weakness and numbness. ACTIVE PROBLEM LIST Generalized Osteoarthrosis, Unspecified Site Esophageal Reflux Venous (Peripheral) Insufficiency Type 2 Diabetes Mellitus With Diabetic Neuropathy, With Long-Term Current Use of Insulin ([facility]) Class 3 Severe Obesity With Body Mass Index (Bmi) of 45.0 to 49.9 in Adult ([facility]) Other Hyperlipidemia Essential Hypertension Coronary Artery Disease of [place] Artery of [place] Heart With Stable Angina Pectoris (Hcc) Persistent Atrial Fibrillation ([facility]) Memory Disturbance Bph (Benign Prostatic Hyperplasia) History of Partial Amputation of Toe ([facility]) Robin (Dyspnea On Exertion) Statin Intolerance Chronic Diastolic Congestive Heart Failure (Hcc) Valvular Heart Disease Non-Seasonal Allergic Rhinitis Hypertensive Heart Disease With Chronic Diastolic Congestive Heart Failure ([facility]) Atherosclerosis of Aorta ([facility]) Social History Tobacco Use Smoking status: Never Smokeless tobacco: Current Types: Chew Vaping Use Vaping status: Never Used Substance Use Topics Alcohol use: Yes Comment: Rare Drug use: Never Current Outpatient Medications Medication Sig alirocumab (PRALUENT PEN) 75 mg/mL pen Inject 1 mL subcutaneously every other week. nitroglycerin sublingual (NITROQUICK) 0.4 mg SL tablet Dissolve 1 tablet under the tongue every 5 minutes as needed for chest pain. IF NO PAIN RELIEF WITH 2ND DOSE, CALL 911 spironolactone (ALDACTONE) 25 mg tablet Take 1 tablet by mouth once daily. furosemide (LASIX) 80 mg tablet Take 1 tablet by mouth two times a day. Three times per day as directed PRN aspirin, enteric coated (ASPIRIN, ENTERIC COATED) 81 mg EC tablet Take 1 tablet by mouth once daily. insulin degludec (TRESIBA FLEXTOUCH U-200) 200 unit/mL (3 mL) injection Inject 120 Units subcutaneously daily at bedtime. amLODIPine (NORVASC) 2.5 mg tablet Take 1 tablet by mouth once daily. Insulin Spruce, Disposable, 32 gauge x 5/32 Use with insulin 4 times a day. Dx: E11.40; Z79.4 clopidogrel (PLAVIX) 75 mg tablet Take 1 tablet by mouth once daily. metoprolol tartrate, short acting, (LOPRESSOR) 50 mg tablet Take 1 tablet by mouth three times a day. insulin aspart, niacinamide, (FIASP FLEXTOUCH U-100 INSULIN) 100 unit/mL (3 mL) pen Inject 25 units 3 times a day with meals PLUS Sliding scale as based on pre meal blood sugar as directed (~ 68 units daily) blood sugar diagnostic (BLOOD GLUCOSE TEST) test strip Test blood sugar(s) 4-5 times daily Dx: Type 2 DM - Uncontrolled E11.65 Insulin: Yes BIOTIN ORAL Take 1 tablet by mouth once daily. Fish Oil-Jackson-3 Fatty Acids (FISH OIL OMEGA 3-6-9) 300-1,000 mg CpDR Take 3000 mg daily. Lancets (ONE TOUCH ULTRASOFT LANCETS) Misc lancets twice daily. Use as instructed ( may dispense Deuca brand) MULTIVITAMIN TAB Take one(1) tablet daily. VITAMIN C 1,000 MG TAB Take one(1) tablet daily. flash glucose scanning reader (FREESTYLE MERCY 2 READER) Test blood sugar(s) 4-5 times daily Dx: Type 2 DM - Uncontrolled Insulin: Yes (Patient not taking: Reported on 02/10/2024) flash glucose sensor (FREESTYLE MERCY 2 SENSOR) kit Test blood sugar(s) 4-5 times daily Dx: Type 2 DM - Uncontrolled Insulin: Yes (Patient not taking: Reported on 11/18/2023) No current facility-administered medications for this visit. Objective BP 122/68 (BP Site: Left Arm, BP Position: Sitting, BP Cuff Size: Large Adult) Pulse 80 Temp 36.1 C (96.9 F) (Temporal) Resp 18 Wt 125.4 kg (276 lb 7.3 oz) BMI 43.30 kg/m Physical Exam Constitutional: General: He is not in acute distress. Appearance: He is not ill-appearing. Pulmonary: Effort: Pulmonary effort is normal. Musculoskeletal: General: No tenderness. Right lower leg: No edema. Left lower leg: No edema. Neurological: General: No focal deficit present. Mental Status: He is alert. Comments: Ambulatory with cane. Assessment and Plan 1. Type 2 diabetes mellitus with diabetic neuropathy, with long-term current use of insulin ([facility]) - ICD9: 250.60, 357.2, V58.67, ICD10: E11.40, Z79.4 - Worsening control Shared Medical Decision Making was done: Medication: gabapentin. Benefits: Medication may help neuropathy symptoms. Risks: Possible side effects were discussed including sedation, confusion. Possible interactions: n/a. Approved use or off label use: off label. Options: duloxetine. Cost: low. - GABAPENTIN 100 MG CAPSULE. One capsule TID. Krishna Reynolds MD documented in this encounter [facility] 01-23-2024 Telephone encounter Note Patient states that he is ok with taking the 75mg every other week. He states that he was having constipation issues on the 150mg dose. Patient aware that his cholesterol is poorly controlled. Yoselin Hilario RN [facility] 01-23-2024 Miscellaneous Notes Patient states that he is ok with taking the 75mg every other week. He states that he was having constipation issues on the 150mg dose. Patient aware that his cholesterol is poorly controlled. Yoselin Hilario RN Images from the original note were not included. Regulo Stover MD We can decrease the Praluent if he believes this is really leading to his constipation. However, he has to realize that his cholesterol is still fairly poorly controlled on the 75 mg every other week dose. Hung Pt is having trouble with bowel movement, believes that he needs to change the Parluent medication. Wants to switch back to 75. Please advise. Thank you. documented in this encounter [facility] 01-22-2024 Telephone encounter Note Images from the original note were not included. Regulo Stover MD We can decrease the Praluent if he believes this is really leading to his constipation. However, he has to realize that his cholesterol is still fairly poorly controlled on the 75 mg every other week dose. Hung [facility] 01-06-2024 Telephone encounter Note Pt is having trouble with bowel movement, believes that he needs to change the Parluent medication. Wants to switch back to 75. Please advise. Thank you. [facility] 12-12-2023 Telephone encounter Note Pt brought in annual FMLA for pcp to complete for pt's son's work. Sondavid takes pt to appts. Pt reports no change from last year. This has been completed by pcp and faxed back to son's work. [facility] 12-12-2023 Miscellaneous Notes Pt brought in annual FMLA for pcp to complete for pt's son's work. Sondavid takes pt to appts. Pt reports no change from last year. This has been completed by pcp and faxed back to son's work. documented in this encounter [facility] 12-11-2023 Note HNO ID: [id number] Author: KRISHNA REYNOLDS MD Service: ? Author Type: Physician Type: Progress Notes Filed: 12/11/2023 10:19 Note Text: This note was created using [employer]. Subjective Miguelangel Moya is a 73 year old male. He was doing well and had no new concerns. We reviewed his lab results. He just saw cardiology and Praluent was increased and aspirin decreased. He continued on DAPT with no adverse effects. His kidney function improved, and nephrology follow up was now annually. Review of Systems Constitutional: Negative. Respiratory: Negative for chest tightness and shortness of breath. Cardiovascular: Negative for chest pain, palpitations and leg swelling. ACTIVE PROBLEM LIST Generalized Osteoarthrosis, Unspecified Site Esophageal Reflux Venous (Peripheral) Insufficiency Type 2 Diabetes Mellitus With Diabetic Neuropathy, With Long-Term Current Use of Insulin ([facility]) Class 3 Severe Obesity With Body Mass Index (Bmi) of 45.0 to 49.9 in Adult ([facility]) Other Hyperlipidemia Essential Hypertension Coronary Artery Disease of [place] Artery of [place] Heart With Stable Angina Pectoris (Hcc) Persistent Atrial Fibrillation (Hcc) Memory Disturbance Bph (Benign Prostatic Hyperplasia) History of Partial Amputation of Toe (Hcc) Robin (Dyspnea On Exertion) Statin Intolerance Chronic Diastolic Congestive Heart Failure (Hcc) Valvular Heart Disease Non-Seasonal Allergic Rhinitis Hypertensive Heart Disease With Chronic Diastolic Congestive Heart Failure (Hcc) Atherosclerosis of Aorta (Hcc) Social History Tobacco Use Smoking status: Never Smokeless tobacco: Current Types: Chew Vaping Use Vaping status: Never Used Substance Use Topics Alcohol use: Yes Comment: Rare Drug use: Never Current Outpatient Medications Medication Sig insulin degludec (TRESIBA FLEXTOUCH U-200) 200 unit/mL (3 mL) injection Inject 120 Units subcutaneously daily at bedtime. alirocumab (PRALUENT PEN) 150 mg/mL pen Inject 1 mL subcutaneously every other week. amLODIPine (NORVASC) 2.5 mg tablet Take 1 tablet by mouth once daily. Insulin Spruce, Disposable, 32 gauge x 5/32 Use with insulin 4 times a day. Dx: E11.40; Z79.4 clopidogrel (PLAVIX) 75 mg tablet Take 1 tablet by mouth once daily. metoprolol tartrate, short acting, (LOPRESSOR) 50 mg tablet Take 1 tablet by mouth three times a day. insulin aspart, niacinamide, (FIASP FLEXTOUCH U-100 INSULIN) 100 unit/mL (3 mL) pen Inject 25 units 3 times a day with meals PLUS Sliding scale as based on pre meal blood sugar as directed (~ 68 units daily) spironolactone (ALDACTONE) 25 mg tablet Take 1 tablet by mouth once daily. furosemide (LASIX) 80 mg tablet Take 1 tablet by mouth twice daily. Three times per day as directed PRN nitroglycerin sublingual (NITROQUICK) 0.4 mg SL tablet Dissolve 1 tablet under the tongue every 5 minutes as needed for chest pain. IF NO PAIN RELIEF WITH 2ND DOSE, CALL 911 blood sugar diagnostic (BLOOD GLUCOSE TEST) test strip Test blood sugar(s) 4-5 times daily Dx: Type 2 DM - Uncontrolled E11.65 Insulin: Yes BIOTIN ORAL Take 1 tablet by mouth once daily. Fish Oil-Jackson-3 Fatty Acids (FISH OIL OMEGA 3-6-9) 300-1,000 mg CpDR Take 3000 mg daily. Lancets (ONE TOUCH ULTRASOFT LANCETS) Misc lancets twice daily. Use as instructed ( may dispense Deuca brand) aspirin, enteric coated (ASPIRIN, ENTERIC COATED) 325 mg EC tablet Take 81 mg by mouth once daily. MULTIVITAMIN TAB Take one(1) tablet daily. VITAMIN C 1,000 MG TAB Take one(1) tablet daily. flash glucose scanning reader (FREESTYLE MERCY 2 READER) Test blood sugar(s) 4-5 times daily Dx: Type 2 DM - Uncontrolled E11.65 Insulin: Yes (Patient not taking: Reported on 12/11/2023) flash glucose sensor (FREESTYLE MERCY 2 SENSOR) kit Test blood sugar(s) 4-5 times daily Dx: Type 2 DM - Uncontrolled E11.65 Insulin: Yes (Patient not taking: Reported on 11/18/2023) No current facility-administered medications for this visit. Objective BP 116/70 (BP Site: Left Arm, BP Position: Sitting, BP Cuff Size: Large Adult) Pulse 80 Temp 36.6 ?C (97.8 ?F) (Temporal) Resp 16 Wt 125.5 kg (276 lb 10.8 oz) BMI 43.33 kg/m? Physical Exam Constitutional: General: He is not in acute distress. HENT: Head: Normocephalic. Cardiovascular: Rate and Rhythm: Normal rate and regular rhythm. Heart sounds: No murmur heard. No gallop. Pulmonary: Effort: No respiratory distress. Breath sounds: No wheezing or rales. Musculoskeletal: Right lower leg: No edema. Left lower leg: No edema. Neurological: General: No focal deficit present. Mental Status: He is alert. Comments: Ambulatory with cane. Test results pertinent to today's visit were reviewed and discussed with the patient. Assessment and Plan 1. Type 2 diabetes mellitus with diabetic neuropathy, with long-term current use of insulin ([facility]) - ICD9: 250.60, 357.2, V58.67, ICD10: E11.40, Z79.4 (prima (more content not included)... [facility] 12-11-2023 History of Presen t illness Narrative This note was created using [employer]. Subjective Miguelangel Moya is a 73 year old male. He was doing well and had no new concerns. We reviewed his lab results. He just saw cardiology and Praluent was increased and aspirin decreased. He continued on DAPT with no adverse effects. His kidney function improved, and nephrology follow up was now annually. Review of Systems Constitutional: Negative. Respiratory: Negative for chest tightness and shortness of breath. Cardiovascular: Negative for chest pain, palpitations and leg swelling. ACTIVE PROBLEM LIST Generalized Osteoarthrosis, Unspecified Site Esophageal Reflux Venous (Peripheral) Insufficiency Type 2 Diabetes Mellitus With Diabetic Neuropathy, With Long-Term Current Use of Insulin ([facility]) Class 3 Severe Obesity With Body Mass Index (Bmi) of 45.0 to 49.9 in Adult ([facility]) Other Hyperlipidemia Essential Hypertension Coronary Artery Disease of [place] Artery of [place] Heart With Stable Angina Pectoris ([facility]) Persistent Atrial Fibrillation ([facility]) Memory Disturbance Bph (Benign Prostatic Hyperplasia) History of Partial Amputation of Toe ([facility]) Robin (Dyspnea On Exertion) Statin Intolerance Chronic Diastolic Congestive Heart Failure ([facility]) Valvular Heart Disease Non-Seasonal Allergic Rhinitis Hypertensive Heart Disease With Chronic Diastolic Congestive Heart Failure ([facility]) Atherosclerosis of Aorta ([facility]) Social History Tobacco Use Smoking status: Never Smokeless tobacco: Current Types: Chew Vaping Use Vaping status: Never Used Substance Use Topics Alcohol use: Yes Comment: Rare Drug use: Never Current Outpatient Medications Medication Sig insulin degludec (TRESIBA FLEXTOUCH U-200) 200 unit/mL (3 mL) injection Inject 120 Units subcutaneously daily at bedtime. alirocumab (PRALUENT PEN) 150 mg/mL pen Inject 1 mL subcutaneously every other week. amLODIPine (NORVASC) 2.5 mg tablet Take 1 tablet by mouth once daily. Insulin Spruce, Disposable, 32 gauge x 5/32 Use with insulin 4 times a day. Dx: E11.40; Z79.4 clopidogrel (PLAVIX) 75 mg tablet Take 1 tablet by mouth once daily. metoprolol tartrate, short acting, (LOPRESSOR) 50 mg tablet Take 1 tablet by mouth three times a day. insulin aspart, niacinamide, (FIASP FLEXTOUCH U-100 INSULIN) 100 unit/mL (3 mL) pen Inject 25 units 3 times a day with meals PLUS Sliding scale as based on pre meal blood sugar as directed (~ 68 units daily) spironolactone (ALDACTONE) 25 mg tablet Take 1 tablet by mouth once daily. furosemide (LASIX) 80 mg tablet Take 1 tablet by mouth twice daily. Three times per day as directed PRN nitroglycerin sublingual (NITROQUICK) 0.4 mg SL tablet Dissolve 1 tablet under the tongue every 5 minutes as needed for chest pain. IF NO PAIN RELIEF WITH 2ND DOSE, CALL 911 blood sugar diagnostic (BLOOD GLUCOSE TEST) test strip Test blood sugar(s) 4-5 times daily Dx: Type 2 DM - Uncontrolled E11.65 Insulin: Yes BIOTIN ORAL Take 1 tablet by mouth once daily. Fish Oil-Jackson-3 Fatty Acids (FISH OIL OMEGA 3-6-9) 300-1,000 mg CpDR Take 3000 mg daily. Lancets (ONE TOUCH ULTRASOFT LANCETS) Misc lancets twice daily. Use as instructed ( may dispense Deuca brand) aspirin, enteric coated (ASPIRIN, ENTERIC COATED) 325 mg EC tablet Take 81 mg by mouth once daily. MULTIVITAMIN TAB Take one(1) tablet daily. VITAMIN C 1,000 MG TAB Take one(1) tablet daily. flash glucose scanning reader (FREESTYLE MERCY 2 READER) Test blood sugar(s) 4-5 times daily Dx: Type 2 DM - Uncontrolled Insulin: Yes (Patient not taking: Reported on 12/11/2023) flash glucose sensor (FREESTYLE MERCY 2 SENSOR) kit Test blood sugar(s) 4-5 times daily Dx: Type 2 DM - Uncontrolled . Insulin: Yes (Patient not taking: Reported on 11/18/2023) No current facility-administered medications for this visit. Objective BP 116/70 (BP Site: Left Arm, BP Position: Sitting, BP Cuff Size: Large Adult) Pulse 80 Temp 36.6 C (97.8 F) (Temporal) Resp 16 Wt 125.5 kg (276 lb 10.8 oz) BMI 43.33 kg/m Physical Exam Constitutional: General: He is not in acute distress. HENT: Head: Normocephalic. Cardiovascular: Rate and Rhythm: Normal rate and regular rhythm. Heart sounds: No murmur heard. No gallop. Pulmonary: Effort: No respiratory distress. Breath sounds: No wheezing or rales. Musculoskeletal: Right lower leg: No edema. Left lower leg: No edema. Neurological: General: No focal deficit present. Mental Status: He is alert. Comments: Ambulatory with cane. Test results pertinent to today's visit were reviewed and discussed with the patient. Assessment and Plan 1. Type 2 diabetes mellitus with diabetic neuropathy, with long-term current use of insulin ([facility]) - ICD9: 250.60, 357.2, V58.67, ICD10: E11.40, Z79.4 (primary diagnosis) - Controlled - Continue current medications - COMPREHENSIVE METABOLIC PANEL - LIPID PANEL BASIC - HEMOGLOBIN A1C - ALBUMIN/CREATININE RATIO, URINE 2. Coronary artery disease involving [place] heart without angina pectoris, unspecified vessel or lesion type - ICD9: 414.01, ICD10: I25.10 Stable. - NITROGLYCERIN 0.4 MG SUBLINGUAL TABLET - ASPIRIN 81 MG TABLET,DELAYED RELEASE - Patient continues on dual anti platelet therapy post stenting in 2020. 3. Chronic diastolic congestive heart failure (HCC) - ICD9: 428.32, 428.0, ICD10: I50.32 - HFpEF 50+ - Continue current medications - SPIRONOLACTONE 25 MG TABLET - FUROSEMIDE 80 MG TABLET 4. Essential hypertension - ICD9: 401.9, ICD10: I10 - Controlled - Continue current medications 5. Screening for depression - ICD9: V79.0, ICD10: Z13.31 - DEPRESSION SCREENING 6. Encounter for screening examination for other mental health and behavioral disorders - ICD9: V79.8, ICD10: Z13.39 - ANXIETY SCREENING Krishna Reynolds MD documented in this encounter [facility] 12-03-2023 Telephone encounter Note Updated med list. Josefina Ballard MA [facility] 12-03-2023 Miscellaneous Notes Updated med list. Josefina Ballard MA Spouse calling to let office know that patient did decide to change ASA from 325mg to 81mg. Yolie Bernard LPN documented in this encounter [facility] 12-02-2023 Telephone encounter Note Spouse calling to let office know that patient did decide to change ASA from 325mg to 81mg. Yolie Bernard LPN [facility] 11-20-2023 Telephone encounter Note Prescription Refill Information The patient has been identified by name and date of : Yes Caregiver verified no other encounters exist for this prescription request: Yes Caregiver confirmed with patient/requestor that no other refills are due, in the near future, with this provider at this time: Yes The last office visit in the department: 09-10-23 Does the patient have a future office visit with this provider/department: Yes Requested Prescriptions Pending Prescriptions Disp Refills insulin degludec (TRESIBA FLEXTOUCH U-200) 200 unit/mL (3 mL) injection 20 Each 3 Sig: Inject 120 Units subcutaneously daily at bedtime. Natasha Serrato November 20, 2023 9:12 AM [facility] 11-20-2023 Miscellaneous Notes Prescription Refill Information The patient has been identified by name and date of : Yes Caregiver verified no other encounters exist for this prescription request: Yes Caregiver confirmed with patient/requestor that no other refills are due, in the near future, with this provider at this time: Yes The last office visit in the department: 09-10-23 Does the patient have a future office visit with this provider/department: Yes Requested Prescriptions Pending Prescriptions Disp Refills insulin degludec (TRESIBA FLEXTOUCH U-200) 200 unit/mL (3 mL) injection 20 Each 3 Sig: Inject 120 Units subcutaneously daily at bedtime. Natasha Serrato November 20, 2023 9:12 AM documented in this encounter [facility] 11-18-2023 History of Presen t illness Narrative Images from the original note were not included. This 73 year old male presents for painful calluses bilateral feet. SMBGs are better. no other pedal complaints PAIN EVALUATION 11/18/2023 1351 Pain Level: -- 0-8 Pain Location: -- bilateral feet Description: Shooting;Stabbing Duration Units: Years Frequency: Intermittent PAST MEDICAL HISTORY 11/06/2019: Acute kidney injury (DANIELA) with acute tubular necrosis (ATN) ([facility]) 10/07/2007: CAD (coronary artery disease) Comment: 70% stenosis circumflex 2nd marginal branch. Drug eluting stent done. 06/21/2020: Diabetic ulcer of toe of left foot associated with type 2 diabetes mellitus (HCC) No date: Esophageal reflux No date: Generalized osteoarthrosis, unspecified site 10/17/2016: Nephrolithiasis 01/30/2006: NEUROPATHY IN DIABETES No date: Nonspecific abnormal results of liver function study No date: Obesity, unspecified 08/13/2013: JAMES (obstructive sleep apnea) Comment: declined tx 09/17/2019: Osteomyelitis of second toe of right foot (HCC) 09/17/2019: Osteomyelitis of third toe of right foot ([facility]) No date: Other and unspecified hyperlipidemia 10/07/2007: Paroxysmal atrial fibrillation ([facility]) No date: Personal history of contact with and (suspected) exposure to asbestos No date: Type II or unspecified type diabetes mellitus without mention of complication, not stated as uncontrolled No date: Unspecified essential hypertension No date: Unspecified venous (peripheral) insufficiency Current Outpatient Medications Medication Sig alirocumab (PRALUENT PEN) 150 mg/mL pen Inject 1 mL subcutaneously every other week. amLODIPine (NORVASC) 2.5 mg tablet Take 1 tablet by mouth once daily. Insulin Spruce, Disposable, 32 gauge x 5/32 Use with insulin 4 times a day. Dx: E11.40; Z79.4 clopidogrel (PLAVIX) 75 mg tablet Take 1 tablet by mouth once daily. metoprolol tartrate, short acting, (LOPRESSOR) 50 mg tablet Take 1 tablet by mouth three times a day. insulin aspart, niacinamide, (FIASP FLEXTOUCH U-100 INSULIN) 100 unit/mL (3 mL) pen Inject 25 units 3 times a day with meals PLUS Sliding scale as based on pre meal blood sugar as directed (~ 68 units daily) spironolactone (ALDACTONE) 25 mg tablet Take 1 tablet by mouth once daily. furosemide (LASIX) 80 mg tablet Take 1 tablet by mouth twice daily. Three times per day as directed PRN nitroglycerin sublingual (NITROQUICK) 0.4 mg SL tablet Dissolve 1 tablet under the tongue every 5 minutes as needed for chest pain. IF NO PAIN RELIEF WITH 2ND DOSE, CALL 911 blood sugar diagnostic (BLOOD GLUCOSE TEST) test strip Test blood sugar(s) 4-5 times daily Dx: Type 2 DM - Uncontrolled E11.65 Insulin: Yes BIOTIN ORAL Take 1 tablet by mouth once daily. Fish Oil-Jackson-3 Fatty Acids (FISH OIL OMEGA 3-6-9) 300-1,000 mg CpDR Take 3000 mg daily. Lancets (ONE TOUCH ULTRASOFT LANCETS) Misc lancets twice daily. Use as instructed ( may dispense Deuca brand) aspirin, enteric coated (ASPIRIN, ENTERIC COATED) 325 mg EC tablet Take 1 tablet by mouth once daily. MULTIVITAMIN TAB Take one(1) tablet daily. VITAMIN C 1,000 MG TAB Take one(1) tablet daily. insulin degludec (TRESIBA FLEXTOUCH U-200) 200 unit/mL (3 mL) injection Inject 120 Units subcutaneously daily at bedtime. flash glucose scanning reader (FREESTYLE MERCY 2 READER) Test blood sugar(s) 4-5 times daily Dx: Type 2 DM - Uncontrolled E11.65 Insulin: Yes (Patient not taking: Reported on 07/04/2023) flash glucose sensor (FREESTYLE MERCY 2 SENSOR) kit Test blood sugar(s) 4-5 times daily Dx: Type 2 DM - Uncontrolled E11.65 Insulin: Yes (Patient not taking: Reported on 11/18/2023) No current facility-administered medications for this visit. ALLERGIES Allergen Reactions Metolazone Rash Altace [Ramipril] Intolerance Bactrim [Sulfametho* Hives Diovan [Valsartan] Propofol Other: See Comments agitation Ramipril Seasonal Allergies Other: See Comments Mkvqxwx-Gdi-Epf Red* Other: See Comments Muscle aches OBJECTIVE: Patient presents WB with regular shoe gear Neurovascular status is grossly unchanged. Absent vibratory sensation at the hallux IPJ. Intact protective sensation hyperkeratotic tissue noted subfifth MTP joint left. Hyperkeratotic tissue also noted to the medial aspect of the to the plantar lateral foot x 2, left posterior heel. Hemoglobin A1C (%) Date Value 11/26/2020 9.1 08/15/2020 8.6 02/13/2020 7.6 10/01/2019 6.1 04/08/2019 6.0 HGBA1C (%) Date Value 11/30/2022 5.9 01/12/2022 6.3 Assessment: B/L callosities Better controlled type 2 diabetes PLAN: Treatment today consisted of -Exam -Debrided calluses x 3 Continue follow up with endo Continue with diabetic shoes Follow-up in 3 months or sooner prn Arabella Heredia DPM documented in this encounter [facility] 11-18-2023 Instructions Regulo Stover MD - 11/18/2023 8:56 AM EDT We are goint to increase the Praluent to 150 mg per 2 weeks Repeat fasting blood work in 3-4 months documented in this encounter [facility] 11-18-2023 History of Presen t illness Narrative Images from the original note were not included. [facility]ARDIOLOGY Cardiology ([facility]) [address] [facility] [id number] OUTPATIENT VISIT DATE 11/18/2023 PRIMARY CARE PHYSICIAN: Krishna Reynolds [address] [place] [address] HISTORY OF PRESENT ILLNESS: Mr. Moya is a 73 year old morbidly obese gentleman with a history of coronary artery disease and prior high risk coronary intervention, diabetes (insulin requiring), chronic diastolic congestive heart failure, hypertension, obstructive sleep apnea (noncompliant with CPAP) and dyslipidemia who presents for routine follow-up. Patient has been doing well from a functional standpoint. He has shortness of breath on exertion which is unchanged from prior. He has been very diligent about following a low-sodium diet with compliant with diuretic therapy. He has not had symptoms concerning for congestive heart failure including PND, orthopnea, or lower extremity edema. He has not had symptoms concerning for angina. He denies palpitations, lightheadedness, dizziness, or syncope. PAST MEDICAL HISTORY 11/06/2019: Acute kidney injury (DANIELA) with acute tubular necrosis (ATN) ([facility]) 10/07/2007: CAD (coronary artery disease) Comment: 70% stenosis circumflex 2nd marginal branch. Drug eluting stent done. 06/21/2020: Diabetic ulcer of toe of left foot associated with type 2 diabetes mellitus (HCC) No date: Esophageal reflux No date: Generalized osteoarthrosis, unspecified site 10/17/2016: Nephrolithiasis 01/30/2006: NEUROPATHY IN DIABETES No date: Nonspecific abnormal results of liver function study No date: Obesity, unspecified 08/13/2013: JAMES (obstructive sleep apnea) Comment: declined tx 09/17/2019: Osteomyelitis of second toe of right foot (HCC) 09/17/2019: Osteomyelitis of third toe of right foot (HCC) No date: Other and unspecified hyperlipidemia 10/07/2007: Paroxysmal atrial fibrillation ([facility]) No date: Personal history of contact with and (suspected) exposure to asbestos No date: Type II or unspecified type diabetes mellitus without mention of complication, not stated as uncontrolled No date: Unspecified essential hypertension No date: Unspecified venous (peripheral) insufficiency PAST SURGICAL HISTORY 1960: ADENOIDECTOMY PRIMARY <AGE 12 Comment: Adenoidectomy 09/17/2019: AMPUTATION TOE INTERPHALANGEAL JOINT; Right Comment: 2nd, 3rd toes, right foot 08/19/2020: AMPUTATION TOE,MT-P JT; Left Comment: distal Symes 2nd & 3rd toe, Left 07/01/2020: CC CORONARY STENT Comment: left main, proximal to mild LAD 06/23/2014: CYSTOSCOPY 10/07/2007: LEFT HEART CATH,PERCUTANEOUS Comment: Cardiac cath, L heart 12/29/2019: LEFT HEART CATH,PERCUTANEOUS Comment: [facility] 1957: TONSILLECTOMY PRIMARY/SECONDARY <AGE 12 Comment: Tonsillectomy 11/10/2007: TRANSCATH STENT INIT VESSEL,CESAR Comment: Transcath stent init vessel DILIA langley 1977: VASECTOMY UNI/BI SPX W/POSTOP SEMEN EXAMS SOCIAL HISTORY Social History Tobacco Use Smoking status: Never Smokeless tobacco: Current Types: Chew Vaping Use Vaping status: Never Used Substance Use Topics Alcohol use: Yes Comment: Rare Drug use: Never FAMILY HISTORY Problem Relation Age of Onset Hypertension Mother Stroke Mother Lipids Mother Heart Father Thyroid Sister Cancer Brother 48 bladder and kidney ALLERGIES: ALLERGIES Allergen Reactions Metolazone Rash Altace [Ramipril] Intolerance Bactrim [Sulfametho* Hives Diovan [Valsartan] Propofol Other: See Comments agitation Ramipril Seasonal Allergies Other: See Comments Kvdmerq-Sls-Vjn Red* Other: See Comments Muscle aches MEDICATIONS: amLODIPine (NORVASC) 2.5 mg tablet Take 1 tablet by mouth once daily. Insulin Spruce, Disposable, 32 gauge x /32 Use with insulin 4 times a day. Dx: E11.40; Z79.4 clopidogrel (PLAVIX) 75 mg tablet Take 1 tablet by mouth once daily. metoprolol tartrate, short acting, (LOPRESSOR) 50 mg tablet Take 1 tablet by mouth three times a day. insulin aspart, niacinamide, (FIASP FLEXTOUCH U-100 INSULIN) 100 unit/mL (3 mL) pen Inject 25 units 3 times a day with meals PLUS Sliding scale as based on pre meal blood sugar as directed (~ 68 units daily) alirocumab (PRALUENT PEN) 75 mg/mL pen Inject 1 mL under the skin every other week. spironolactone (ALDACTONE) 25 mg tablet Take 1 tablet by mouth once daily. furosemide (LASIX) 80 mg tablet Take 1 tablet by mouth twice daily. Three times per day as directed PRN insulin degludec (TRESIBA FLEXTOUCH U-200) 200 unit/mL (3 mL) injection Inject 120 Units subcutaneously daily at bedtime. nitroglycerin sublingual (NITROQUICK) 0.4 mg SL tablet Dissolve 1 tablet under the tongue every 5 minutes as needed for chest pain. IF NO PAIN RELIEF WITH 2ND DOSE, CALL 911 flash glucose scanning reader (FREESTYLE MERCY 2 READER) Test blood sugar(s) 4-5 times daily Dx: Type 2 DM - Uncontrolled Insulin: Yes (Patient not taking: Reported on 07/04/2023) flash glucose sensor (FREESTYLE MERCY 2 SENSOR) kit Test blood sugar(s) 4-5 times daily Dx: Type 2 DM - Uncontrolled Insulin: Yes blood sugar diagnostic (BLOOD GLUCOSE TEST) test strip Test blood sugar(s) 4-5 times daily Dx: Type 2 DM - Uncontrolled E11.65 Insulin: Yes BIOTIN ORAL Take 1 tablet by mouth once daily. Fish Oil-Jackson-3 Fatty Acids (FISH OIL OMEGA 3-6-9) 300-1,000 mg CpDR Take 3000 mg daily. Lancets (ONE TOUCH ULTRASOFT LANCETS) Misc lancets twice daily. Use as instructed ( may dispense Deuca brand) aspirin, enteric coated (ASPIRIN, ENTERIC COATED) 325 mg EC tablet Take 1 tablet by mouth once daily. MULTIVITAMIN TAB Take one(1) tablet daily. VITAMIN C 1,000 MG TAB Take one(1) tablet daily. REVIEW OF SYSTEMS: Review of Systems Constitutional: Negative for chills, fever, malaise/fatigue and weight loss. HENT: Negative for hearing loss and sore throat. Eyes: Negative for blurred vision and double vision. Respiratory: Positive for shortness of breath. Cardiovascular: Negative for chest pain and leg swelling. Gastrointestinal: Negative. Genitourinary: Negative for dysuria, frequency, hematuria and urgency. Musculoskeletal: Negative. Skin: Negative. Neurological: Negative for dizziness, seizures, loss of consciousness, weakness and headaches. Endo/Heme/Allergies: Negative for environmental allergies. Does not bruise/bleed easily. Psychiatric/Behavioral: Negative for depression. PHYSICAL EXAMINATION: BP 118/64 Pulse 81 Resp 16 Wt 127.5 kg (281 lb) SpO2 97% BMI 44.01 kg/m General: Obese gentleman sitting comfortable no [...] angioplasty. Using intravascular ultrasound guidance a 3.0 x 48 mm Synergy stent was deployed and postdilated to 4.2 mm proximally and 3.6 mm on the distal edge. The mid to distal and distal LAD have mild diffuse disease. Cardiac catheterization Dr. Amaro 12/29/19: RCA: Flush [...] branches with mild to moderate diffuse disease. Echocardiogram 08/27/2022: - The left ventricle is normal in size. Left ventricular systolic function is normal. EF = 61 5% (2D biplane) Definity contrast used for endocardial border detection. Left ventricular diastolic function was not evaluated due to AF. - The right ventricle is normal in size. Right ventricular systolic function is normal. - The left atrial cavity is mildly dilated. - The visualized aorta is borderline dilated with a maximal dimension of 3.8 cm. - There are no significant valvular abnormalities. Echocardiogram 12/10/2019 Benjamin: Technically difficult study Grossly normal LV function and size. Estimated ejection fraction 65%. The left atrium is severely enlarged. There is mild mitral annular calcification Trivial mitral valve insufficiency Trivial tricuspid valve insufficiency Mild aortic stenosis. Right ventricular systolic pressure estimated to be 40 mmHg. I have personally reviewed the Cardiac Catheterization/Percutaneous Coronary Intervention (PCI). IMPRESSION: Mr. Moya is a 73 year old morbidly obese gentleman with a [...] AND RECOMMENDATIONS: 1. Coronary artery disease of [place] artery of [place] heart with stable angina pectoris (HCC) - ICD9: 414.01, 413.9, ICD10: I25.118 (primary diagnosis) Patient doing well without symptoms concerning for angina. He has been maintained on long-term Plavix therapy - ECG COMPLETE - PRALUENT PEN 150 MG/ML SUBCUTANEOUS PEN INJECTOR 2. Chronic diastolic congestive heart failure (HCC) - ICD9: 428.32, 428.0, ICD10: I50.32 Well-controlled on current diuretic therapy and low-sodium diet - ECG COMPLETE 3. Persistent atrial fibrillation (HCC) - ICD9: 427.31, ICD10: I48.19 Heart rates are at a controlled on current regimen. Patient is adamantly refused anticoagulation therapy. I discussed decreasing aspirin to 81 mg daily. He wants to continue his current regimen. Risk benefits were reviewed with the patient and his in detail - ECG COMPLETE 4. Essential hypertension - ICD9: 401.9, ICD10: I10 Well-controlled on current regimen. - ECG COMPLETE 5. Other hyperlipidemia - ICD9: 272.4, ICD10: E78.49 Recent fasting blood work May 2023 was reviewed. LDL cholesterol 109 mg/dL. Will increase Praluent to 150 mg every 2 weeks. Repeat fasting blood work in 3 to 4 months - ECG COMPLETE - PRALUENT PEN 150 MG/ML SUBCUTANEOUS PEN INJECTOR 6. Class 3 severe obesity due to excess calories with serious comorbidity and body mass index (BMI) of 45.0 to 49.9 in adult (HCC) - ICD9: 278.01, V85.42, ICD10: E66.01, Z68.42 7. Statin intolerance - ICD9: 995.27, ICD10: Z78.9 - PRALUENT PEN 150 MG/ML SUBCUTANEOUS PEN INJECTOR 8. Atherosclerosis of aorta (HCC) - ICD9: 440.0, ICD10: I70.0 Regulo Stover MD documented in this encounter [facility] 09-16-2023 History of Presen t illness Narrative Kaila Jimenez PA-C Department of Orthopaedics Orthopaedics [address] [place] [address] Dept: [phone] Dept September 16, [address] Krishna Reynolds for an opinion regarding elbow mass. My final recommendations will be communicated back to the requesting physician by way of shared Medical record or letter to requesting physician via US mail. CHIEF COMPLAINT: New and Swelling of the Right Elbow Mr. Miguelangel Moya is a 73 year old male who presents with a mass on his right elbow which has been present for about the past 2 months. Really no pain but he does note discomfort when he is lifting his arm or laying in certain positions. He is able to find a comfortable position if he use a small pillow or repositions the arm. He has right hand dominant. He has had a previous right ulnar nerve decompression at the cubital tunnel with transposition. He wonders if this has anything to do with the mass. Patient is anticoagulated, he has a personal history of coronary artery stenting and has atrial fibrillation. He is a diabetic, his most recent hemoglobin A1c was 5.7. He has had to have some amputations of some of his toes secondary to circulation issues. He also reports a adverse reaction to propofol, he was very agitated. ASSESSMENT: R22.31 Elbow mass, right PLAN: Mass appears relatively benign, does not seem to be bothering the patient at this time. We discussed that diagnosis cannot be made without removing the mass. Since it is not bothering him at this time I see no reason to remove it. He is also had some poor experiences with anesthesia in the past and has some medical conditions that may make healing a bit of an issue. Certainly if something changes, the mass becomes painful or continues to enlarge happy [facility]. Mr. Miguelangel Moya was advised as to contrast therapies and/or to take analgesics/anti-inflammatories as needed and all contraindications were reviewed. OBJECTIVE: Mr. Miguelangel Moya is a pleasant 73 year old in no apparent distress. Gen:There were no vitals taken for this visit. nl development, obese, no deformities ENT: Normocephalic, normal hearing, moist mucosa CV: Pulses:Radial= 2+ and symmetric, capillary refill < 2 secs, no peripheral edema/varicosities Skin: no rash, bruising or lesions. Good turgor. Psych: cooperative and appropriate, alert and oriented x 3, good mood and affect. Musculoskeletal: A well-defined mobile palpable mass over the olecranon just distal to the olecranon bursal area. Mass is nontender to the touch. Patient is able to functionally flex and extend the elbow as well as pronate and supinate the wrist without any discomfort in the elbow or near the mass. Overlying skin is intact, there is no erythema, no drainage, no edema. Imaging: * * *Final Report* * * DATE OF EXAM: Sep 16 2023 10:47AM [id number] - XR ELBOW 2V AP/LAT RT / PROCEDURE REASON: Right elbow pain * * * * Physician Interpretation * * * * EXAMINATION / TECHNIQUE: XR ELBOW 2V AP/LAT RT HISTORY: Worsening painful lump in right elbow. Hx of bilateral ulnar nerve removal surgery. Right elbow pain COMPARISON: None. RESULT: See impression. IMPRESSION IMPRESSION: No acute fracture or osseous malalignment is identified. The joint spaces are preserved. There is a cluster of nonspecific rounded foci of mineralization in the subcutaneous soft tissues over the dorsal aspect of the proximal forearm. The location appears distinct from the olecranon bursa making gout less likely. Dystrophic calcification or possibly calcinosis cutis are differential considerations. Memorial Designer: ASHUTOSH Transcribe Date/Time: Sep 19 2023 9:33P Dictated by : AUGUSTO BANERJEE MD This examination was interpreted and the report reviewed and electronically signed by: AUGUSTO BANERJEE MD on Sep 19 2023 9:39PM EST Supporting Subjective Information Below: Past Surgical History: PAST SURGICAL HISTORY Procedure Laterality Date ADENOIDECTOMY PRIMARY <AGE 12 1961 Adenoidectomy AMPUTATION TOE INTERPHALANGEAL JOINT Right 09/17/2019 2nd, 3rd toes, right foot AMPUTATION TOE,MT-P JT Left 08/19/2020 distal Symes 2nd & 3rd toe, Left CC CORONARY STENT 07/01/2020 left main, proximal to mild LAD CYSTOSCOPY 06/23/2014 LEFT HEART CATH,PERCUTANEOUS 10/07/2007 Cardiac cath, L heart LEFT HEART CATH,PERCUTANEOUS 12/29/2019 [facility] TONSILLECTOMY PRIMARY/SECONDARY <AGE 12 1957 Tonsillectomy TRANSCATH STENT INIT VESSEL,PERCUT 11/10/2007 Transcath stent init vessel percut, DILIA VASECTOMY UNI/BI SPX W/POSTOP SEMEN EXAMS 1977 Medications: Current Outpatient Medications Medication Sig amLODIPine (NORVASC) 2.5 mg tablet Take 1 tablet by mouth once daily. clopidogrel (PLAVIX) 75 mg tablet Take 1 tablet by mouth once daily. metoprolol tartrate, short acting, (LOPRESSOR) 50 mg tablet Take 1 tablet by mouth three times a day. insulin aspart, niacinamide, (FIASP FLEXTOUCH U-100 INSULIN) 100 unit/mL (3 mL) pen Inject 25 units 3 times a day with meals PLUS Sliding scale as based on pre meal blood sugar as directed (~ 68 units daily) alirocumab (PRALUENT PEN) 75 mg/mL pen Inject 1 mL under the skin every other week. spironolactone (ALDACTONE) 25 mg tablet Take 1 tablet by mouth once daily. furosemide (LASIX) 80 mg tablet Take 1 tablet by mouth twice daily. Three times per day as directed PRN insulin degludec (TRESIBA FLEXTOUCH U-200) 200 unit/mL (3 mL) injection Inject 120 Units subcutaneously daily at bedtime. BIOTIN ORAL Take 1 tablet by mouth once daily. Fish Oil-Jackson-3 Fatty Acids (FISH OIL OMEGA 3-6-9) 300-1,000 mg CpDR Take 3000 mg daily. aspirin, enteric coated (ASPIRIN, ENTERIC COATED) 325 mg EC tablet Take 1 tablet by mouth once daily. MULTIVITAMIN TAB Take one(1) tablet daily. VITAMIN C 1,000 MG TAB Take one(1) tablet daily. Insulin Spruce, Disposable, 32 gauge x 5/32 Use with insulin 4 times a day. Dx: E11.40; Z79.4 nitroglycerin sublingual (NITROQUICK) 0.4 mg SL tablet Dissolve 1 tablet under the tongue every 5 minutes as needed for chest pain. IF NO PAIN RELIEF WITH 2ND DOSE, CALL 911 flash glucose scanning reader (Tablelist IncSTYLE MERCY 2 READER) Test blood sugar(s) 4-5 times daily Dx: Type 2 DM - Uncontrolled Insulin: Yes (Patient not taking: Reported on 07/04/2023) flash glucose sensor (FREESTYLE MERCY 2 SENSOR) kit Test blood sugar(s) 4-5 times daily Dx: Type 2 DM - Uncontrolled Insulin: Yes blood sugar diagnostic (BLOOD GLUCOSE TEST) test strip Test blood sugar(s) 4-5 times daily Dx: Type 2 DM - Uncontrolled E11.65 Insulin: Yes Lancets (ONE TOUCH ULTRASOFT LANCETS) [facility] [place]ancets twice daily. Use as instructed ( may dispense Deuca brand) No current facility-administered medications for this visit. Allergies: Metolazone, Altace [Ramipril], Bactrim [Sulfamethoxazole-Trimethoprim], Diovan [Valsartan], Propofol, Ramipril, Seasonal Allergies, and Fzophns-Mya-Uon Reductase Inhibitors ROS: General (negative for fatigue, malaise, weight loss/gain) HEENT (negative for headache, earache, recent vision changes, sinus pain, sore throat) Respiratory (no recent shortness of breath, hemoptysis) CV (negative for chest tightness, palpitations) Musculoskeletal (see HPI) Psych (no depression, anxiety) This note was partially generated using [employer] voice recognition system, and there may be some incorrect words, spellings, and punctuation that were not noted in checking the note before saving. Kaila Jimenez PA-C AMB ROOMING INTAKE FLOWSHEET DATA Pain Pain Level: 3 Pain Location: Elbow-Right Description: Sharp Duration Amount of Time: 2 Duration Units: Months Frequency: Continuous Intervention/Comfort measure: Reposition Patient here today for right elbow mass. reports it does seem to be getting bigger. Patient does give history of ulnar nerve being moved in the distant past. He sleeps in a recliner. Left hand dominant. documented in this encounter [facility] 09-16-2023 History of Presen t illness Narrative Radiology Service Progress Note PATIENT NAME: Miguelangel Moya DATE OF SERVICE: September 16, 2023 TIME: 10:45 AM PATIENT IDENTITY VERIFICATION COMPLETED USING TWO (2) IDENTIFIERS: Name and Date of confirmed by patient verbally. FALL SCREENING: Has the patient had 2 falls in the last year or 1 fall with injury or currently using an Ambulatory Assistive Device (Walker, Cane, Wheelchair, Crutches, etc.)? Yes, Patient High Risk for Falls What interventions were put in place to prevent falls during this visit? Offered Assistance with Transfers/Clothing, Instructed Patient to Remain Seated (Not on Exam Table) Until Exam, and Increased Observations by Caregivers PATIENT GENDER DATA: Male PATIENT RELEVANT IMPLANT DATA REVIEWED: Yes PATIENT PRESENTS WITH AN IMPLANTABLE OR ATTACHED FIELD INSTALLATION TECHNICIAN: No RADIOLOGY DEPARTMENT: General X-ray: Exam(s) Completed: Upper Extremity X-Ray(s): Elbow, right PERIPHERAL IV DATA: Not applicable SIGNED BY: Pamela Torre RT(R) September 16, 2023 10:45 AM documented in this encounter [facility] 09-10-2023 History of Presen t illness Narrative This note was created using [employer]. Subjective Patient presents with: Thad Moya is a 73 year old male here with Jessica for a lump on his right elbow. This has been noted for maybe 2 years but had been gradually increasing in size, and was noted to be painful for the past 3 months or so. There was no recent trauma or injury. Pressure on the lump causes sharp pain to radiate up higher in the posterior upper arm. His hypertension was controlled, and amlodipine refill was needed. He saw Dr. Godinez for his left hydrocele, and recommendation was observation only. Review of Systems Constitutional: Negative for fever. Musculoskeletal: Positive for arthralgias. Negative for joint swelling. ACTIVE PROBLEM LIST Generalized Osteoarthrosis, Unspecified Site Esophageal Reflux Venous (Peripheral) Insufficiency Type 2 Diabetes Mellitus With Diabetic Neuropathy, With Long-Term Current Use of Insulin ([facility]) Class 3 Severe Obesity With Body Mass Index (Bmi) of 45.0 to 49.9 in Adult ([facility]) Other Hyperlipidemia Essential Hypertension Coronary Artery Disease of [place] Artery of [place] Heart With Stable Angina Pectoris ([facility]) Persistent Atrial Fibrillation ([facility]) Memory Disturbance Bph (Benign Prostatic Hyperplasia) History of Partial Amputation of Toe ([facility]) Robin (Dyspnea On Exertion) Statin Intolerance Chronic Diastolic Congestive Heart Failure (Hcc) Valvular Heart Disease Non-Seasonal Allergic Rhinitis Hypertensive Heart Disease With Chronic Diastolic Congestive Heart Failure (Hcc) Atherosclerosis of Aorta (Hcc) Hydrocele, Acquired Testicular Cyst Objective BP 116/74 (BP Site: Left Arm, BP Position: Sitting, BP Cuff Size: Large Adult) Pulse 80 Temp 36.2 C (97.2 F) (Temporal) Resp 16 Wt 127.5 kg (281 lb) BMI 44.01 kg/m Physical Exam Constitutional: Appearance: He is not ill-appearing. Musculoskeletal: Right elbow: Deformity present. No swelling or effusion. Normal range of motion. Tenderness present. Comments: 4 x 3.5 cm soft mass, mildly tender, non inflamed just distal to olecranon process. Neurological: Mental Status: He is alert. Assessment and Plan 1. Elbow mass, right - ICD9: 719.62, ICD10: R22.31 (primary diagnosis) Probably tophaceous deposit or cyst. Shared medical decision making was done, and he was interested in excision. - CONSULT TO ORTHOPAEDICS 2. Essential hypertension - ICD9: 401.9, ICD10: I10 - Controlled - AMLODIPINE 2.5 MG TABLET Krishna Reynolds MD documented in this encounter [facility] 07-29-2023 Telephone encounter Note Pts wanted to let provider know that she had Pt scheduled with Dr Godinez on 09/02/23. [facility] 07-29-2023 Miscellaneous Notes Pts wanted to let provider know that she had Pt scheduled with Dr Godinez on 09/02/23. documented in this encounter [facility] 07-27-2023 Telephone encounter Note Patient's notified, verbalized understanding. Referral faxed to Dr. Godinez's office. US results mailed to pts home as requested. Chaz Alfaro MA [facility] 07-27-2023 Miscellaneous Notes Patient's notified, verbalized understanding. Referral faxed to Dr. Godinez's office. US results mailed to pts home as requested. Chaz Alfaro MA Left testicular septated (complicated cyst) epididymal cyst versus encysted hydrocele. Short term follow up ultrasound recommended. I recommend consult with Dr. Godinez. ASSESSMENT/PLAN: 1. Hydrocele, acquired - ICD9: 603.9, ICD10: N43.3 (primary diagnosis) - CONSULT TO UROLOGY 2. Testicular cyst - ICD9: 608.89, ICD10: N44.2 - CONSULT TO UROLOGY Krishna Reynolds MD Patient calling wanting results of ultrasound. Please review and advise. [place] Iraheta LPN documented in this encounter [facility] 07-26-2023 Telephone encounter Note Left testicular septated (complicated cyst) epididymal cyst versus encysted hydrocele. Short term follow up ultrasound recommended. I recommend consult with Dr. Godinez. ASSESSMENT/PLAN: 1. Hydrocele, acquired - ICD9: 603.9, ICD10: N43.3 (primary diagnosis) - CONSULT TO UROLOGY 2. Testicular cyst - ICD9: 608.89, ICD10: N44.2 - CONSULT TO UROLOGY Krishna Reynolds MD [facility] 07-25-2023 Telephone encounter Note Patient calling wanting results of ultrasound. Please review and advise. Jamaica Iraheta LPN [facility] 2023 History of Presen t illness Narrative Radiology Service Progress Note PATIENT NAME: Miguelangel Moya DATE OF SERVICE: 2023 TIME: 11:48 AM PATIENT IDENTITY VERIFICATION COMPLETED USING TWO (2) IDENTIFIERS: Name and Date of confirmed by patient verbally. FALL SCREENING: Has the patient had 2 falls in the last year or 1 fall with injury or currently using an Ambulatory Assistive Device (Walker, Cane, Wheelchair, Crutches, etc.)? No PATIENT GENDER DATA: Male PATIENT RELEVANT IMPLANT DATA REVIEWED: Not Applicable PATIENT PRESENTS WITH AN IMPLANTABLE OR ATTACHED FIELD INSTALLATION TECHNICIAN: No RADIOLOGY DEPARTMENT: Ultrasound PERIPHERAL IV DATA: Not applicable SIGNED BY: Demi Nova RDMS RVT 2023 11:48 AM documented in this encounter [facility] 07-04-2023 History of Presen t illness Narrative This note was created using [employer]. Subjective Miguelangel Moya is a 72 year old male. He's had scrotal enlargement for years, but lately this has grown to the point of occasional discomfort. We reviewed his recent lipids again. He declined Zetia. Review of Systems Constitutional: Negative for fever and unexpected weight change. Gastrointestinal: Negative for abdominal pain. Genitourinary: Positive for testicular pain. Negative for dysuria. ACTIVE PROBLEM LIST Generalized Osteoarthrosis, Unspecified Site Esophageal Reflux Venous (Peripheral) Insufficiency Type 2 Diabetes Mellitus With Diabetic Neuropathy, With Long-Term Current Use of Insulin ([facility]) Class 3 Severe Obesity With Body Mass Index (Bmi) of 45.0 to 49.9 in Adult ([facility]) Other Hyperlipidemia Essential Hypertension Coronary Artery Disease of [place] Artery of [place] Heart With Stable Angina Pectoris ([facility]) Persistent Atrial Fibrillation ([facility]) Memory Disturbance Bph (Benign Prostatic Hyperplasia) History of Partial Amputation of Toe ([facility]) Robin (Dyspnea On Exertion) Statin Intolerance Chronic Diastolic Congestive Heart Failure ([facility]) Valvular Heart Disease Non-Seasonal Allergic Rhinitis Hypertensive Heart Disease With Chronic Diastolic Congestive Heart Failure ([facility]) Atherosclerosis of Aorta ([facility]) Current Outpatient Medications Medication Sig Insulin Spruce, Disposable, 32 gauge x /32 Use with insulin 4 times a day. Dx: E11.40; Z79.4 clopidogrel (PLAVIX) 75 mg tablet Take 1 tablet by mouth once daily. metoprolol tartrate, short acting, (LOPRESSOR) 50 mg tablet Take 1 tablet by mouth three times a day. insulin aspart, niacinamide, (FIASP FLEXTOUCH U-100 INSULIN) 100 unit/mL (3 mL) pen Inject 25 units 3 times a day with meals PLUS Sliding scale as based on pre meal blood sugar as directed (~ 68 units daily) alirocumab (PRALUENT PEN) 75 mg/mL pen Inject 1 mL under the skin every other week. spironolactone (ALDACTONE) 25 mg tablet Take 1 tablet by mouth once daily. furosemide (LASIX) 80 mg tablet Take 1 tablet by mouth twice daily. Three times per day as directed PRN insulin degludec (TRESIBA FLEXTOUCH U-200) 200 unit/mL (3 mL) injection Inject 120 Units subcutaneously daily at bedtime. amLODIPine (NORVASC) 2.5 mg tablet Take 1 tablet by mouth once daily. nitroglycerin sublingual (NITROQUICK) 0.4 mg SL tablet Dissolve 1 tablet under the tongue every 5 minutes as needed for chest pain. IF NO PAIN RELIEF WITH 2ND DOSE, CALL 911 flash glucose sensor (FREESTYLE MERCY 2 SENSOR) kit Test blood sugar(s) 4-5 times daily Dx: Type 2 DM - Uncontrolled E11.65 Insulin: Yes blood sugar diagnostic (BLOOD GLUCOSE TEST) test strip Test blood sugar(s) 4-5 times daily Dx: Type 2 DM - Uncontrolled E11.65 Insulin: Yes BIOTIN ORAL Take 1 tablet by mouth once daily. Fish Oil-Jackson-3 Fatty Acids (FISH OIL OMEGA 3-6-9) 300-1,000 mg CpDR Take 3000 mg daily. Lancets (ONE TOUCH ULTRASOFT LANCETS) [facility] lancets twice daily. Use as instructed ( may dispense Deuca brand) aspirin, enteric coated (ASPIRIN, ENTERIC COATED) 325 mg EC tablet Take 1 tablet by mouth once daily. MULTIVITAMIN TAB Take one(1) tablet daily. VITAMIN C 1,000 MG TAB Take one(1) tablet daily. flash glucose scanning reader (FREESTYLE MERCY 2 READER) Test blood sugar(s) 4-5 times daily Dx: Type 2 DM - Uncontrolled E11.65 Insulin: Yes (Patient not taking: Reported on 07/04/2023) No current facility-administered medications for this visit. Objective Blood Pressure 120/74 (BP Site: Left Arm, BP Position: Sitting, BP Cuff Size: Large Adult) Pulse 72 Respiration 16 Weight 129.4 kg (285 lb 4.8 oz) Body Mass Index 44.68 kg/m Physical Exam Constitutional: Appearance: He is not ill-appearing. Abdominal: Hernia: There is no hernia in the left inguinal area or right inguinal area. Genitourinary: Testes: Right: Mass or testicular hydrocele not present. Left: Testicular hydrocele present. Mass or tenderness not present. Lymphadenopathy: Lower Body: Right inguinal adenopathy present. No left inguinal adenopathy. Assessment and Plan 1. Hydrocele, acquired - ICD9: 603.9, ICD10: N43.3 (primary diagnosis) - We agreed to observe for now, unless US has findings of concern. If with increased symptoms, he will be referred to the local non [facility] urologist. - US SCROTUM AND CONTENTS 2. Other hyperlipidemia - ICD9: 272.4, ICD10: E78.49 Improved. Krishna Reynolds MD documented in this encounter [facility] 06-26-2023 Miscellaneous Notes Patient's request for medication is as follows Requested Prescriptions Signed Prescriptions Disp Refills Insulin Spruce, Disposable, 32 gauge x 5/32 400 Each 3 Sig: Use with insulin 4 times a day. Dx: E11.40; Z79.4 Authorizing Provider: KRISHNA REYNOLDS MD Patient's Jessica calling and states patient's pen needles that he currently uses for his Tresiba and Fiaso pens has tripled in cost and would like alternative ordered. Spoke with [facility]'s Pharmacist who states BD pen needles (32 guage, 4mm, QTY: 400 with 90 day supply) will be most cost-effective for patient. aware and agreeable. Script pended for review by PCP. Please send order to [facility]. Thank you. documented in this encounter [facility] 06-13-2023 Miscellaneous Notes Patient has been identified by name and date of : Yes, Provider Rodolfo Spouse phones for refill(s): Requested Prescriptions Pending Prescriptions Disp Refills clopidogrel (PLAVIX) 75 mg tablet 90 tablet 3 Sig: Take 1 tablet by mouth once daily. metoprolol tartrate, short acting, (LOPRESSOR) 50 mg tablet Sig: Take 1 tablet by mouth three times a day. Date of last office visit in primary care: 06/07/2023 Date of next office visit in primary care: 12/11/2023 Please advise. Thank you. Merrick Serrato. documented in this encounter [facility] 06-07-2023 Instructions Krishna Reynolds MD - 06/07/2023 8:42 AM EDT CONSIDER ADDING EZETIMIBE (ZETIA) 10 MG 1 TABLET DAILY TO HELP LOWER CHOLESTEROL. THIS IS NOT A STATIN MEDICATION. documented in this encounter [facility] 06-07-2023 History of Presen t illness Narrative This note was created using [employer]. Subjective Miguelangel Moya is a 72 year old male. He was doing well, and had no concerns. We reviewed his lab results and he requested copies of his labs as well. Review of Systems Constitutional: Negative for fatigue and fever. HENT: Negative for congestion. Eyes: Negative for visual disturbance. Respiratory: Negative for cough, chest tightness and shortness of breath. Cardiovascular: Positive for leg swelling. Negative for chest pain and palpitations. Gastrointestinal: Negative for abdominal pain, constipation and diarrhea. Genitourinary: Negative for difficulty urinating and dysuria. Musculoskeletal: Negative. Neurological: Negative for dizziness and headaches. ACTIVE PROBLEM LIST Generalized Osteoarthrosis, Unspecified Site Esophageal Reflux Venous (Peripheral) Insufficiency Type 2 Diabetes Mellitus With Diabetic Neuropathy, With Long-Term Current Use of Insulin ([facility]) Class 3 Severe Obesity With Body Mass Index (Bmi) of 45.0 to 49.9 in Adult ([facility]) Other Hyperlipidemia Essential Hypertension Coronary Artery Disease of [place] Artery of [place] Heart With Stable Angina Pectoris ([facility]) Persistent Atrial Fibrillation ([facility]) Memory Disturbance Bph (Benign Prostatic Hyperplasia) History of Partial Amputation of Toe ([facility]) Robin (Dyspnea On Exertion) Statin Intolerance Chronic Diastolic Congestive Heart Failure (Formerly [facility]) Valvular Heart Disease Non-Seasonal Allergic Rhinitis Hypertensive Heart Disease With Chronic Diastolic Congestive Heart Failure (Formerly [facility]) Atherosclerosis of Aorta (Formerly [facility]) Current Outpatient Medications Medication Sig insulin aspart, niacinamide, (FIASP FLEXTOUCH U-100 INSULIN) 100 unit/mL (3 mL) pen Inject 25 units 3 times a day with meals PLUS Sliding scale as based on pre meal blood sugar as directed (~ 68 units daily) pen needle, diabetic (UNIFINE PENTIPS PLUS) 33 gauge x 5/32 ndle Use with insulin four times daily. E11.40, Z79.4 alirocumab (PRALUENT PEN) 75 mg/mL pen Inject 1 mL under the skin every other week. spironolactone (ALDACTONE) 25 mg tablet Take 1 tablet by mouth once daily. furosemide (LASIX) 80 mg tablet Take 1 tablet by mouth twice daily. Three times per day as directed PRN insulin degludec (TRESIBA FLEXTOUCH U-200) 200 unit/mL (3 mL) injection Inject 120 Units subcutaneously daily at bedtime. amLODIPine (NORVASC) 2.5 mg tablet Take 1 [...] mouth once daily. flash glucose scanning reader (Tablelist IncSTFastFig MRECY 2 READER) Test blood sugar(s) 4-5 times daily Dx: Type 2 DM - Uncontrolled E11.65 Insulin: Yes blood sugar diagnostic (BLOOD GLUCOSE TEST) test strip Test blood sugar(s) 4-5 times daily Dx: Type 2 DM - Uncontrolled E11.65 Insulin: Yes BIOTIN ORAL Take 1 tablet by mouth once daily. Fish Oil-Jackson-3 Fatty Acids (FISH OIL OMEGA 3-6-9) 300-1,000 mg CpDR Take 3000 mg daily. Lancets (ONE TOUCH ULTRASOFT LANCETS) Misc lancets twice daily. Use as instructed ( may dispense Deuca brand) aspirin, enteric coated (ASPIRIN, ENTERIC COATED) 325 mg EC tablet Take 1 tablet by mouth once daily. MULTIVITAMIN TAB Take one(1) tablet daily. VITAMIN C 1,000 MG TAB Take one(1) tablet daily. flash glucose sensor (FREESTYLE MERCY 2 SENSOR) kit Test blood sugar(s) 4-5 times daily Dx: Type 2 DM - Uncontrolled E11.65 Insulin: Yes No current facility-administered medications for this visit. Objective BP 128/82 (BP Site: Left Arm, BP Position: Sitting, BP Cuff Size: Regular Adult) Pulse 64 Resp 18 Ht 170.2 cm (5' 7) Wt 129.5 kg (285 lb 6.4 oz) BMI 44.70 kg/m Physical Exam Constitutional: General: He is not in acute distress. HENT: Head: Normocephalic. Cardiovascular: Rate and Rhythm: Normal rate and regular rhythm. Heart sounds: No murmur heard. No gallop. Pulmonary: Effort: No respiratory distress. Breath sounds: No wheezing or rales. Abdominal: Tenderness: There is no abdominal tenderness. Musculoskeletal: Right lower leg: No edema. Left lower leg: No edema. Skin: Findings: Bruising present. Neurological: General: No focal deficit present. Mental Status: He is alert. Test results pertinent to today's visit were reviewed and discussed with the patient. Assessment and Plan 1. Medicare annual wellness visit, subsequent - ICD9: V70.0, ICD10: Z00.00 (primary diagnosis) See wellness note. 2. Coronary artery disease of [place] artery of [place] heart with stable angina pectoris (HCC) - ICD9: 414.01, 413.9, ICD10: I25.118 Stable. 3. Other hyperlipidemia - ICD9: 272.4, ICD10: E78.49 Improved. - LIPID PANEL BASIC 4. Statin intolerance - ICD9: 995.27, ICD10: Z78.9 - Consider ZETIA. Patient hesitant. 5. Atherosclerosis of aorta (HCC) - ICD9: 440.0, ICD10: I70.0 Risk factor modification. 6. Essential hypertension - ICD9: 401.9, ICD10: I10 - Controlled 7. Type 2 diabetes mellitus with diabetic neuropathy, with long-term current use of insulin (HCC) - ICD9: 250.60, 357.2, V58.67, ICD10: E11.40, Z79.4 - Controlled - Continue current medications - BASIC METABOLIC PNL - HGB A1C 8. Chronic diastolic congestive heart failure (HCC) - ICD9: 428.32, 428.0, ICD10: I50.32 - Compensated 9. Persistent atrial fibrillation (HCC) - ICD9: 427.31, ICD10: I48.19 Plavix and aspirin. Anticoagulation discontinued in the past due to bleeding. Krishna Reynolds MD Images from the original note were not included. Miguelangel Moya is a 72 year old male here for a Medicare wellness visit. Medicare Health Risk Assessment General Health Good Exercise: Minutes/Day 60 min Exercise: Days/Week 4 days Alcohol: Daily Use Never Alcohol: Drinks/Day Patient does not drink Alcohol: 6 or more drinks Never Feel off balance Yes Concerns: Teeth/Dentures No Concerns: Sexual function No Troubled by feelings None of the above Frequency: Eating healthy diet Nearly every day ADLs requiring help Bathing; Dressing Safety precautions in home/vehicle Yes Smoke, vape, chews tobacco Yes, but I'm not ready to quit Difficulty hearing No Difficulty seeing No Current Providers Specialists: I have reviewed specialist-related care of the patient in the medical record. Current care team: Patient Care Team: Krishna Reynolds MD as PCP - General Regulo Stover MD (Cardiology) Gaby Kraus MD (Inactive) (Nephrology) Mitchel Aleman MD as Physician (Ophthalmology) Arabella Heredia DPM as Referring (Podiatry) Gucci Sanabria MD, Vascular surgery. Medical/Family history review Reviewed and updated problem list, medical/surgical/family/social history, medications, and allergies. Opioid use review Opioid Medications (last 90 days) No data to display Depression screening Depression Screening PHQ-2 Score 06/07/2023 0 Depression screening tool completed and reviewed. Based on score and interview, patient is not at risk for depression. Screening tool discussed with patient, and I recommended no further intervention at this time. Cognitive screening Mini Cog Score: 5 Cognitive screening reviewed and no further action needed (score 3-5) Functional Observation Was the patient's Timed Up & Go test unsteady or ? 12 seconds? No Advance Care Planning Surrogate decision maker and/or advance care plan documented Measurements BP 128/82 Pulse 64 Resp 18 Ht 5' 7 (1.70m) Wt 285 lb 6.4 oz (129.5kg) BMI 44.69 kg/(m^2). Additional screenings: No results found. Assessment/Plan Medicare annual wellness visit, subsequent (Z00.00) - Counseled on healthy diet and regular exercise - Fall avoidance information provided - Personalized prevention plan provided - Discussed need for and benefit of weight loss. BMI 44.70 kg/(m^2) - Tobacco chew cessation encouraged; discussed risks to health and quitting strategies. Patient is not ready to quit Duplicate deleted. documented in this encounter [facility] 05-22-2023 Miscellaneous Notes Orders faxed to [facility], notified. Roxanna Dennis LPN Fasting CMP, Lipids, A1C orders printed. Pt reports his appt with pcp is 06-07-23 and he would like pcp to order labs and send orders to [facility] lab for him to complete. He plans to get them done on 05-29 or . Reports he needs pcp to order cholesterol lab because Dr. Stover has him on a cholesterol injection, Praluent. Asking pcp to send order for that and whatever else you think he needs. Please notify pt when these are sent to [facility] lab. documented in this encounter [facility] 03-26-2023 History and physi corrine note Note Date/Time March 26, 2023 10:43am [facility] [address] [place] [address] H&P Exam - Wound Care 03/26/23 1037 MR#: [id number] Acct: [id number] Name: MIGUELANGEL MOYA Rep #:[id number] : 1950 72 From: Ronak Valdez PCP: Dr. Krishna Reynolds MD Status:R EG RCR Location: History of Present Illness Date of Service: 03/26/23 Chief Complaint: Right lower extremity venous stasis ulceration History of Wound: The patient appears today for evaluation relative to the ulceration on the right medial calf. He is a [facility], having previously been treated several months ago for another wound in his right leg. He has a history of multiple recurrent ulcerations in both lower extremities, which occur spontaneously. His current ulceration has been present since . He is accompanied by his , who is a retired nurse. He has been applying Promogran and gauze topically on a daily basis. The patient is an active. He sits a great deal of each day. Ambulatorycapacity is limited, due to balance disturbance. He uses a walker for assistance. He sleeps in a recliner, due to multiple episodes of nocturia. He has recently finished a 7?day course of doxycycline, as prescribed by his primary care physician. He experiences swelling in his lower extremities, whichis present virtually all the time. He denies a history of thrombophlebitis. He has graduated compression stockings of 15 to 20 mmHg compression in his possession, and has been wearing on a daily basis. Vascular studies were performed on November 16, 2022. A noninvasive lower extremity arterial study revealed ankle-brachial indices bilaterally. A venous duplex examination revealed incompetence of the right great and small saphenous veins. The patienthas multiple pre-existing medical problems, which include coronary artery disease, congestive heart failure, diabetes mellitus, hypertension, atrial fibrillation, gastroesophageal reflux disease, hypercholesterolemia, and obesity. [facility] Medical History Atherosclerotic heart disease of [place] coronary artery without angina pectoris Balance disorder Chronic diastolic heart failure Chronic venous insufficiency Diabetes mellitus Edema of right lower leg Essential hypertension GERD (gastroesophageal reflux disease) Paroxysmal atrial fibrillation Presence of stent in coronary artery (~07/01/20) Pure hypercholesterolemia Right leg swelling Tobacco abuse Tobacco abuse counseling Type 2 diabetes mellitus Varicose veins of both lower extremities with inflammation Varicose veins of right lower extremity with inflammation, with ulcer of ankle with fat layer exposed Varicose veins of right lower extremity with inflammation, with ulcer of calf with fat layer exposed Venous stasis ulcer of right lower leg with edema of right lower leg Home Medications ascorbic acid (vitamin C) 1,000 mg tablet 1,000 mg PO DAILY SUPPLEMENT 05/30/17 [History Last Taken 09/15/19] aspirin 325 mg tablet 325 mg PO DAILY [facility] 05/30/17 [History Last Taken 12/29/19] nitroglycerin 0.4 mg sublingual tablet (Nitrostat) 0.4 mg sublingual Q5M PRN chest pain 05/30/17 [History Last Taken Unknown] biotin 1 mg tablet 1 mg PO DAILY SUPPLEMENT 05/25/19 [History Last Taken 09/15/19] omega-3 fatty acids 1,000 mg capsule (Fish Oil Concentrate) 3,000 mg PO BID SUPPLEMENT 05/25/19 [History Last Taken 09/15/19] metoprolol tartrate 50 mg tablet 50 mg PO BID HEART 09/15/19 [History Last Taken 12/29/19] multivitamin with minerals 1 tablet PO BID SUPPLEMENT 09/15/19 [History Last Taken 09/15/19] acetaminophen 325 mg tablet 500 mg (1.5385 x 325 mg) PO Q4H PRN Pain Score 1-10/Temp > 100.7 F 09/19/19 [Rx Last Taken Unknown] cholecalciferol (vitamin D3) 50 mcg (2,000 unit) capsule 2,000 unit PO DAILY 06/24/20 [History Last Taken Unknown] clopidogrel 75 mg tablet (Plavix) 75 mg PO DAILY 08/04/20 [History Last Taken Unknown] furosemide 80 mg tablet 80 mg PO BID 11/02/22 [History Last Taken Unknown] insulin aspart U-100 100 unit/mL subcutaneous cartridge 25 unit subcut TID 11/02/22 [History Last Taken Unknown] metoprolol tartrate 50 mg tablet (Lopressor) 50 mg PO BID 11/02/22 [History Last Taken Unknown] amlodipine 10 mg tablet 5 mg PO DAILY 01/29/23 [History Last Taken Unknown] insulin degludec 100 unit/mL (3 mL) subcutaneous pen (Tresiba FlexTouch U-100 insulin) 114 unit subcut QHS 01/29/23 [History Last Taken Unknown] Allergy/AdvReac Type Severity Reaction Status Date / Time propofol Allergy Other Verified 01/29/23 09:22 hydrocodone [From Vicodin] AdvReac Severe Hives Verified 01/29/23 09:22 ramipril [From Altace] AdvReac Severe Fast HR Verified 01/29/23 09:22 valsartan [From Diovan] AdvReac Severe Fast HR Verified 01/29/23 09:22 Koapmyi-CTN-KiQ Reductase AdvReac Intermediate Muscle Verified 01/29/23 09:22 Inhibitor aches [Jzlhvnz-Pgq-Fqj Reductase Inhibitor] Family History Other Family history of CVA Family history of hyperlipidemia Family history of hypertension Surgical History Coronary angioplasty status History of coronary artery stent placement History of decompression of ulnar nerve History of left heart catheterization (LHC) (~12/29/19) History of tonsillectomy History of tonsillectomy and adenoidectomy History of vasectomy Presence of coronary angioplasty implant and graft (~06/2007) Social History Smoking Status: Never smoker alcohol intake: current details: whiskey,daily substance use type: does not use Vital Signs Vital Signs Vital Signs: 03/26/23 10:07 Temperature 95.8 F L Temperature Source Temporal Pulse Rate 96 Respiratory Rate 18 Blood Pressure 137/77 H Blood Pressure Mean 97 Blood Pressure Source Monitor Blood Pressure Position Semi-Fowlers Blood Pressure Location Left Arm Oxygen Delivery Method Room Air Weight Weight: 295 lb Body Mass Index (BMI) 46.2 Physical Exam Const alert, oriented x3, no apparent distress and well nourished Constitutional Narrative: The patient is morbidly obese with a BMI of 46.2. General Appearance: cooperative, comfortable, well kempt and well developed Orientation / Consciousness: awake, oriented to person, oriented to place and oriented to time Exam Limitations: no limitations HEENT normocephalic, head/scalp atraumatic and hearing grossly normal bilaterally Head and Scalp: normal to inspection, normocephalic and atraumatic External Ear: external ears normal Eyes PERRL and EOMs intact bilaterally General Eye: normal appearance of both eyes Resp normal respiratory effort, normal air movement, no retractions and no use of accessory muscles Effort and Inspection: able to speak in complete sentences and symmetric chest movement Extremity no calf tenderness General Extremity: Negative for clubbing or cyanosis Skin Wound Narrative: Mild swelling and edema are noted in the patient's right lower extremity. Membreno phlebectatica is noted near the right medial malleolus. Scattered varicosities are noted in the right lower extremity. The ulceration on the right medial calf is now completely healed and epithelialized. There is no signof infection or cellulitis. Mild to moderate lipodermatosclerosis and hyperpigmentation are noted in the right gaiter area. Neuro oriented x3, CN's II-XII intact bilaterally, moves all extremities and no focal motor deficits Sensorium / Orientation: awake, alert, oriented to person, oriented to place andoriented to time Psych Appearance: grossly normal and appropriate Attitude: calm Activity / Motor Behavior: appropriate eye contact Speech: normal speech Mood & Affect: euthymic mood Thought Process: normal thought process Thought Content: normal thought content Attention / Concentration: attention grossly intact Debridement Note Debridement Note No debridement was completed: No debridement was completed today (There are no open wounds or ulcerations.) Post-Debridement Measurements and Additional Note: Post-Debridement Measurements/Treatment VERONICA - Nurse 1 - General Ulcer Assessment Start: 03/26/23 10:07 Freq: Status: Active Protocol: KAYLEIGH Activity Type Activity Date Activity User E-sign Co-sign Detail Recorded Client Recorded Date Recorded By Document 03/26/23 10:07 KW Desktop 03/26/23 10:17 KW 03/26/23 10:07 - Today's Visit Information Type of service Follow-up Visit (Physician/CAR CHECKER ) Arrival Mode Ambulatory, Walker Patient Identification Verified (Name & Yes ) Finger Stick Blood Sugar(mg/dl) (if 117 indicated): Blood Sugar Stated by Patient Height and Weight Body Mass Index (BMI) 46.2 BMI Classification Obese Vital Signs Temperature (97.8 F-99.1 F) 95.8 F L Temperature Source Temporal Pulse Rate (60-100) 96 Pulse Location Monitor Respiratory Rate (12-18) 18 Respiratory rate source Observation Oxygen Delivery Method Room Air Blood Pressure (90/60-120/80) 137/77 H Blood Pressure Mean 97 Source Monitor Position Semi-Fowlers Blood Pressure Location Left Arm History Since Last Visit- (Skip if this is Patient's initial visit) Have you changed medications since your No last visit? Any new allergies or adverse reactions No Had a fall/change in ADL's that may No increase risk of falls Signs or symptoms of abuse and/or No neglect since last visit Have you been in the hospital since your No last visit? Has dressing in place as prescribed No Has compression in place as prescribed Yes Has offloadiing in place as prescribed No Experienced any changes in pain level or No management Left Footwear Diabetic Shoe Right Footwear Diabetic Shoe Pain Scale: 0-10 Numeric Is Patient Pain Free? Yes - Nurse 1 - General Ulcer Measurement Start: 03/26/23 10:07 Freq: Status: Active Protocol: Activity Type Activity Date Activity User E-sign Co-sign Detail Recorded Client Recorded Date Recorded By Document 03/26/23 10:07 Desktop 03/26/23 10:17 KW 03/26/23 10:07 Wound Center Nurse 1 #1- RLE -Current Size (cm) - Length 0 -Current Size (cm) - Width 0 -Current Size (cm) - Depth 0 -Total Square Cm 0 1-right medial leg -Current Size (cm) - Length 0 -Current Size (cm) - Width 0 -Current Size (cm) - Depth 0 -Total Square Cm 0 Right Calf (cm) 41 Right Ankle (cm) 24 - Nurse 3 - General Ulcer D/C NN Start: 03/26/23 10:07 Freq: Status: Active Protocol: Activity Type Activity Date Activity User E-sign Co-sign Detail Recorded Client Recorded Date Recorded By Document 03/26/23 10:31 KW Desktop 03/26/23 10:32 KW 03/26/23 10:31 Wound Care Center Nurse 3 #1- RLE -Primary Dressing Covered/Secured with Dry Gauze & Roll Gauze, Secured with Tape 1-right medial leg -Primary Dressing Covered/Secured with Dry Gauze & Roll Gauze, Secured with Tape Pain Scale: 0-10 Numeric Is Patient Pain Free? Yes WC - Visit Discharge Discharge Condition Stable Ambulatory Status Ambulatory Transportation Private Auto Medication Reconcilliation completed & No provided to patient/care provider Clinical Summary of Care Provided Yes Assessment/Plan Assessment/Plan (1) Venous stasis ulcer of right lower leg with edema of right lower leg: CODE(S): I83.019 - Varicose veins of right lower extremity with ulcer of unspecified site; I83.891 - Varicose veins of right lower extremity with other complications; L97.919 - Non-pressure chronic ulcer of unspecified part of rightlower leg with unspecified severity; R60.0 - Localized edema (2) Varicose veins of right lower extremity with inflammation, with ulcer of calf with fat layer exposed: CODE(S): I83.212 - Varicose veins of right lower extremity with both ulcerof calf and inflammation; L97.212 - Non-pressure chronic ulcer of right calf with fat layer exposed (3) Chronic venous insufficiency: CODE(S): I87.2 - Venous insufficiency (chronic) (peripheral) (4) Varicose veins of both lower extremities with inflammation: CODE(S): I83.11 - Varicose veins of right lower extremity with inflammation; I83.12 - Varicose veins of left lower extremity with inflammation (5) Right leg swelling: CODE(S): M79.89 - Other specified soft tissue disorders (6) Edema of right lower leg: CODE(S): R60.0 - Localized edema (7) Morbid obesity due to excess calories: CODE(S): E66.01 - Morbid (severe) obesity due to excess calories (8) Balance disorder: CODE(S): R26.89 - Other abnormalities of gait and mobility (9) JAMES (obstructive sleep apnea): CODE(S): G47.33 - Obstructive sleep apnea (adult) (pediatric) (10) CAD (coronary artery disease): CODE(S): I25.10 - Atherosclerotic heart disease of [place] coronary artery without angina pectoris QUALIFIERS: Coronary Disease-Associated Artery/Lesion type: nativeartery [place] vs. transplanted heart: [place] heart (11) HLD (hyperlipidemia): CODE(S): E78.5 - Hyperlipidemia, unspecified (12) GERD (gastroesophageal reflux disease): CODE(S): K21.9 - Gastro-esophageal reflux disease without esophagitis (13) Type 2 diabetes mellitus: CODE(S): E11.9 - Type 2 diabetes mellitus without complications (14) Essential hypertension: CODE(S): I10 - Essential (primary) hypertension (15) Atherosclerotic heart disease of [place] coronary artery without angina pectoris: CODE(S): I25.10 - Atherosclerotic heart disease of [place] coronary artery without angina pectoris QUALIFIERS: [place] vs. transplanted heart: [place] heart QualifiedCode(s): I25.10 - Atherosclerotic heart disease of [place] coronary artery without angina pectoris (16) Paroxysmal atrial fibrillation: CODE(S): I48.0 - Paroxysmal atrial fibrillation (17) Left atrial enlargement: CODE(S): I51.7 - Cardiomegaly (18) Presence of stent in coronary artery: CODE(S): Z95.5 - Presence of coronary angioplasty implant and graft (19) Pure hypercholesterolemia: CODE(S): E78.00 - Pure hypercholesterolemia, unspecified (20) History of coronary artery stent placement: CODE(S): Z95.5 - Presence of coronary angioplasty implant and graft (21) History of tonsillectomy: CODE(S): Z90.89 - Acquired absence of other organs (22) History of decompression of ulnar nerve: CODE(S): Z98.890 - Other specified postprocedural states (23) Tobacco abuse: CODE(S): Z72.0 - Tobacco use (24) Tobacco abuse counseling: CODE(S): Z71.6 - Tobacco abuse counseling PLAN: Plan This is a 72-year-old morbidly obese male with multiple pre-existing medical problems. He presented with a small ulceration on the right distal medial calf,which had been present for approximately 1 month. He has a history of known chronic venous insufficiency, and has been treated in the past for venous stasisulcerations in the right lower extremity. Venous duplex examination performed on November 16, 2022, revealed incompetence of the right great and small saphenousveins. A lengthy discussion has been undertaken with the patient at the bedside. Patient has been advised to sleep on a flat surface at night, with hislegs level with or higher than his heart. Leg elevation has been encouraged during daytime hours as well. Prolonged idle sitting has been discouraged. Activity has been encouraged. However, the patient's balance disturbance will likely preclude him from enhancing his activity to any significant degree. Weight loss has also been recommended. The patient had been wearing graduated compression stockings of 15 to 20 mmHg compression. We are to increase this to 20 to 30 mmHg compression. A prescription for graduated compression stockings of 20 to 30 mmHg compression has been provided. A prior noninvasive lower extremity arterial study revealed no evidence of significant arterial occlusive disease at ankle level bilaterally. The patient is now healed and completely epithelialized. He has been encouraged to continue with the conservative treatment measures which have been implemented, and will follow-up henceforth sabina as-needed basis. Total time: 26 minutes 03/26/23 1043 <Electronically signed by Ronak Lucio MD> Cosigner Signature (if applicable): CC: ~ Signed [facility] Work Phone: [phone]) 562-774012-20-2023 Miscellaneous Notes* Telephone Encounter - Natalie Mena RPh - 03/13/2023 9:33 AM EST Please resend Praluent order to [facility]. We originally received an order from you on 03/11/23. Then PCP provider d/c'd the order and resent to [facility] on 03/12/23 which they then called to discontinue. So We spoke to patient and patient is requesting to fill with [facility] as we have a adelina on file to help pay for medication. Thank you kindly, Natalie Mena, Pharmacist [facility] [phone] (phone) [phone] (fax) [facility] History of Present illness Narrative* Nhung Longo MA - 01/14/2023 11:44 AM EDT POPULATION HEALTH NAVIGATION OUTREACH Action/FYI Updated HgbA1C [...] HbA1C due on 11/15/2021 Navigation Signature: Nhung Longo MA January 14, 2023 11:44 AM [facility] Miscellaneous Notes* Telephone Encounter - Josefina Qureshi LPN - 01/14/2023 10:27 AM EDT called to see if we received results for the Cologuard test . Results given negative. Josefina Qureshi LPN documented in this encounterTr[facility]23 History of Present illness Narrative* Older, PEREZ Dee.PATRICIA - 12/07/2022 7:07 AM EDT CC: Patient presents with: F/U 6 months HPI Miguelangel Moya is a 72 year old male who presents today for above. Denies any concerns or issues today. Feeling well overall. Taking all medications as prescribed, denies side effects. BLE venous insufficiency wounds and edema managed by [facility] wound center, wounds are healed and edema [...] cath, L heart LEFT HEART CATH,PERCUTANEOUS 12/29/2019 [facility] TONSILLECTOMY PRIMARY/SECONDARY <AGE 12 1958 Tonsillectomy TRANSCATH STENT INIT VESSEL,PERCUT 11/10/2007 Transcath stent init vessel percut, DILIA VASECTOMY UNI/BI SPX W/POSTOP SEMEN EXAMS 1977 ALLERGIES Metolazone, Altace [Ramipril], Bactrim [Sulfamethoxazole- Trimethoprim], Diovan [Valsartan], Propofol, Ramipril, Seasonal Allergies, and Qccvbio-Qzi-Sna Reductase Inhibitors MEDICATIONS insulin degludec (TRESIBA FLEXTOUCH [...] Dx: Type 2 DM - Uncontrolled Insulin: Yes^Disp: 1 Each^Rfl: 5 flash glucose sensor (FREESTYLE MERCY 2 SENSOR) kit^Test blood sugar(s) 4-5 times daily Dx: Type 2 DM - Uncontrolled Insulin: Yes^Disp: 1 Each^Rfl: 2 furosemide (LASIX) 80 mg tablet^Take 1 tablet by mouth twice daily. Three times per day as directedPRN^Disp: 225 tablet^Rfl: 3 blood sugar diagnostic (BLOOD GLUCOSE TEST) test strip^Test blood sugar(s) 4-5 times daily Dx: Type2 DM - Uncontrolled Insulin: Yes^Disp: 200 Strip^Rfl: 3 BIOTIN ORAL^Take 1 tablet by mouth once daily.^Disp: ^Rfl: Fish Oil-Jackson-3 Fatty Acids (FISH OIL OMEGA 3-6-9) 300-1,000 [...] DATA REVIEWED: Most recent labs done at [facility] ASSESSMENT/PLAN: 1. Type 2 diabetes mellitus with diabetic neuropathy, with long-term current use of insulin (HCC) -ICD9: 250.60, 357.2, V58.67, ICD10: E11.40, Z79.4 (primary [...] with serious comorbidity and body mass index (BMI)of 45.0 to 49.9 in adult (HCC) - [...] Patient agreeable to treatment plan. Leila Russell APRN.PATRICIA documented in this encounterTr[facility]09-14-2023 Miscellaneous Notes* Telephone Encounter - Agnieszka Khanna LPN - 12/06/2022 10:34 AM EDT Pt has appt 12/07/22 with [facility] * Telephone Encounter - Ivy Allen - 12/06/2022 9:17 AM EDT Patient has been identified by name and [...] and advise. Ivy Allen documented in this encounterTr[facility]08-28-2023 History of Present illness Narrative* Arabella Heredia DPM - 11/19/2022 3:48 PM EDT Images from the original note were not [...] twice daily. Three times per day as directedPRN blood sugar diagnostic (BLOOD GLUCOSE TEST) test strip Test blood sugar(s) 4-5 times daily Dx: Type2 DM - Uncontrolled E11.65 Insulin: Yes BIOTIN ORAL Take 1 tablet by mouth once daily. Fish Oil-Jackson-3 Fatty Acids (FISH OIL OMEGA 3-6-9) 300-1,000 [...] agitation Ramipril Seasonal Allergies Other: See Comments Zipxqnq-Tmu-Jjb Red* Other: See Comments Muscle aches OBJECTIVE: [...] prn Arabella Heredia DPM documented in this encounterTr[facility]08-25-2023 Progress note Author Dalia Lazo [facility] November 16, 2022 11:57am Note Date/Time November 15, 2022 12 :24pm [facility] [address] [place] [address] Progress Note - Wound Care 11/15/22 1223 MR#: [id number] Acct: [id number] Name: MIGUELANGEL MOYA Ariel Rep #:[id number] : 1950 72 From: Dalia MONTGOMERY PCP: Dr. Krishna Reynolds MD Status:R EG RCR Location: [facility] History of Present Illness Date of Service: 11/15/22 Chief Complaint: RLE wound History of Wound: Patient presents today for evaluation of RLE wound. He is accompanied to this appt by his who is a retired nurse. This wound has been present for 4-5 weeks, no obvious provocation/trauma to the area. It started as a blister. His states she has been doing her best to care for it at home with wet to dry dressings, but she reports he does not tolerate dressing changes very well. He has taken doxycycline and keflex in the past few weeks to address possible infection. Currently, no significant redness,focal swelling, foul odor, N/V, F/C. She notes there is mild-moderate serous drainage. He has had multiple recurrent wounds which similarly started as blisters on hisbilateral shins/calves. They tend to heal up with care at home in a couple weeksbut this one seems more persistent. 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 He had arterial studies performed in 2019 which showed only small vessel disease. He has not had any venous studies. He does have bilateral lower extremity edema, he wears nonmeasured compression stockings. He has diabetes, reportedly under decent control at this time (A1c in May 5.8). Subjective Subjective Wound is improving. His is doing his dressings changes and reports no difficulties. She does note a new blister formed at the lateral aspect of R calf, she states there has been some drainage from that and wonders what to do if it fully ruptures. No new or worsening pain, redness, drainage, swelling. No N/V, F/C. He initially wore the tubigrips provided, but found that they rolled up under his foot which was very uncomfortable so stopped wearing them. He is scheduled for vascular studies 11/16. Objective Data Objective Data Vital Signs: Vital Signs Temp Pulse Resp BP 96.0 F L 81 16 129/85 H 11/02/22 10:11/02/22 10:00 11/02/22 10:11/02/22 10:00 Weight: 294 lb Body Mass Index (BMI) 46.0 Charges/Coding Procedures Integumentary 111xxx-113xx: [id number] Lenore subq tissue 20 sq cm/< Physical Exam Const alert, oriented x3 and no apparent distress General Appearance: cooperative Nutritional Appearance: obese centrally obese Resp normal respiratory effort, no retractions and no use of accessory muscles Extremity Extremity Narrative: Bilateral lower extremity edema; appropriate warmth, DP/PT pulses diminished to palpation bilaterally Skin Wounds: wounds noted Wound Narrative: R medial mckee/calf wound with significant adherent slough and devitalized tissue. No significant erythema, focal swelling, purulent drainage, warmth. Scattered scars from prior wounds visible bilateral lower legs. Hemosiderin deposition/lipodermatosclerosis noted bilateral lower legs. Scattered, small fluid blisters noted bilaterally. Psych mental status grossly normal Appearance: grossly normal Attitude: calm Activity / Motor Behavior: appropriate eye contact Debridement Note Debridement Note Wound debrided: R lower leg Laterality: Right Type of Debridement: Excisional debridement Anesthesia Used: 5% Lidocaine Gel Depth: Down to and including healthy tissue Percentage of wound debrided: 100 Instrument Used: 5mm curette Tissue Removed: slough, devitalized tissue Amount of bleeding with debridement: Mild Bleeding Controlled with: Pressure Patient tolerated procedure: Patient tolerated procedure well Post-Debridement Measurements and Additional Note: Post-Debridement Measurements/Treatment - Nurse 1 - General Ulcer Assessment Start: 11/02/22 10:00 Freq: Status: Active Protocol: KAYLEIGH Activity Type Activity Date Activity User E-sign Co-sign Detail Recorded Client Recorded Date Recorded By Document 11/02/22 10:00 APOLLO [id number] 11/02/22 10:11 APOLLO 11/02/22 10:00 - Today's Visit Information Type of service Initial Visit Arrival Mode Ambulatory,Cane Patient Identification Verified (Name & Yes ) Patient Requires Transmission-Based No Precautions Height and Weight Height 5 ft 7 in Weight 294 lb Weight in Pounds 294.0 lbs Weight Measurement Method Estimated by Patient Body Mass Index (BMI) 46.0 BMI Classification Obese BSA - Gladis 2.38 Vital Signs Temperature (97.8 F-99.1 F) 96.0 F L Temperature Source Temporal Pulse Rate (60-100) 81 Pulse Location Monitor Respiratory Rate (12-18) 16 Respiratory rate source Observation Blood Pressure (90/60-120/80) 129/85 H Blood Pressure Mean (mm Hg) 99 Source Manual Position Semi-Fowlers Blood Pressure Location Left Arm History Since Last Visit- (Skip if this is Patient's initial visit) Left Footwear Regular Shoe Right Footwear Regular Shoe Pain Scale: 0-10 Numeric Is Patient Pain Free? Yes Lower Extremity Assessment/ Foot Assessment/ Toe Nail Assessment Right -Posterior Tibial Palpable Yes -Posterior Tibial Doppler Monophasic -Dorsalis Pedis Palpable Yes -Dorsalis Pedis Doppler Monophasic -Extremity Color Hyperpigmented -Hair Growth on Legs Yes -Hair Growth on Toes No -Temperature of Extremity Warm -Capillary Refill Less than 3 Seconds -Dependent Rubor Yes -Other Deformity No -Prior Foot Ulcer No -Charcot Joint No -Prior Amputation No -Thick Yes -Discolored Yes -Deformed Yes -Improper Length & Hygeine No Left -Posterior Tibial Palpable Yes -Posterior Tibial Doppler Monophasic -Dorsalis Pedis Palpable Yes -Dorsalis Pedis Doppler Monophasic -Other Deformity No -Prior Foot Ulcer No -Charcot Joint No -Prior Amputation No -Thick No -Discolored Yes -Deformed Yes -Improper Length & Hygeine No Neuropathy Assessment Feet - Top Side and Bottom <Entered> (a) Communication Assessment Preferred language Citizen [place] [employer] Required No Able to Read Yes Able to Write Yes Communication Tools None Caregiver Communication Skills No Impairment Impairment Right Hearing Abillity Normal Left Hearing Abillity Normal Visual Assistive Devices Glasses Teaching Assessment Preferences Verbal,Written, Audio/Visual, Demonstration Barriers to Learning None Readiness To Learn Good Willingness to Engage in Self Management Med Activies Readiness to Engage in Self Management Med Activities Anxiety Level Calm Cooperation Cooperative Perception Coherent Interest in Health Problem Asks Questions Education Importance Acknowledges Need Does Patient Smoke tobacco or other No substances Is Patient Diabetic Yes Functional Assessment Recent Decline in Ability to Perform Ambulation Assistive Device With Patient Yes List Device(s) with Patient cane Culture/Sabianism/Extraction Operator Cultural/Sabianism Needs that may affect No Treatment Plan Would you allow our hospital schedule maker to No meet you for the purpose of spiritual/ emotional support? Extraction Operator to contact place of uatsdin No Teaching: Wound Center [facility] Orientation/ Contacting Physician -Person Taught Patient,Family -Teaching Method Discussion, Demonstration -Response to teaching Return demonstration, Verbalize understanding (a) 1 - positive 2 - positive 3 - positive 4 - positive - Nurse 1 - General Ulcer Measurement Start: 11/02/22 10:00 Freq: Status: Active Protocol: Activity Type Activity Date Activity User E-sign Co-sign Detail Recorded Client Recorded Date Recorded By Document 11/02/22 10:00 APOLLO [id number] 11/02/22 10:11 JF 11/02/22 10:00 Wound Center Nurse 1 1-right medial leg -Combined with other wound No -Current Size (cm) - Length 2.5 -Current Size (cm) - Width 1.0 -Current Size (cm) - Depth 0.1 -Total Square Cm 2.50 -Photo Taken Yes -Epithelialization Small 1-33% -Tunneling No -Undermining/Tunneling No -Circular Undermining No -Classification - Jackson Grading ( Grade 2 Diabetic Ulcer) -Exudate Amt None Present -Wound Margin Flat & Intact -Granulation Amt None Present (0 %) -Slough/Fibrin Yes -Necrosis Amt Large (67-100%) -Necrotic Tissue Type Adherent Slough -Structure Exposed N/A -Texture (Aileen-wound Skin Appearance) Assessed, Localized Edema -Moisture (Aileen-wound Skin Appearance) Assessed -Color (Aileen-wound Skin Appearance) Assessed, Hemosiderin Staining -Temperature (Aileen-wound Skin No Abnormality Appearance) (Pt Warm) -Tenderness on Palpation (Aileen-wound No Skin Appearance) -Ulcer Cleansing Wound Cleanser -Foul Odor after Cleansing No -Anesthetic Used 5% Lidocaine Gel Lower Limb Edema Present Yes Right Calf (cm) 44.6 Right Ankle (cm) 25.0 Left Calf (cm) 45.0 Left Ankle (cm) 24.2 WC - Nurse 2 - General Ulcer CM Notes Start: 11/02/22 10:00 Freq: Status: Active Protocol: Activity Type Activity Date Activity User E-sign Co-sign Detail Recorded Client Recorded Date Recorded By Document 11/02/22 16:28 ANTOINETTE [id number] 11/02/22 16:29 PL 11/02/22 16:28 Wound Center Nurse 2 1-right medial leg -Time 10:30 -Correct Patient Yes -Correct Side, Site, Position Yes -Correct Procedure Yes -Procedure Performed Yes -Type of Procedure Debridement -Clinical Debridement Subcutaneous -Tissue Removed Subcutaneous -Post Debridement (cm) - Length 1.2 -Post Debridement (cm) - Width 1.1 -Post Debridement (cm) - Depth 0.2 -Total Square (Post) (cm) 1.32 -Area of Debridement (cm) - Length 1.2 -Area of Debridement (cm) - Width 1.1 -Total Square (Area) (cm) 1.32 -Tunneling No -Undermining/Tunneling No -Circular Undermining No -Wound/Ulcer Outcome Not Healed -Ulcer Cleansing Rinsed/ Irrigated with Saline -Foul Odor after Cleansing No -Bioengineered Tissue No -Bleeding Controlled with Pressure -Treatment Response Procedure Tolerated Well -Debridement - Subq, 1st 20sq cm Yes Pain Scale: 0-10 Numeric Is Patient Pain Free? Yes - Nurse 3 - General Ulcer D/C NN Start: 11/02/22 10:00 Freq: Status: Active Protocol: Activity Type Activity Date Activity User E-sign Co-sign Detail Recorded Client Recorded Date Recorded By Document 11/02/22 10:57 MW [id number] 11/02/22 10:59 MW Edit Result 11/02/22 10:57 MW (1) [id number] 11/02/22 11:01 MW (1) 1-right medial leg - Mepilex Border 1 => 2 11/02/22 10:57 Wound Care Center Nurse 3 1-right medial leg -Ulcer Cleansing Rinsed/ Irrigated with Saline -Foul Odor after Cleansing No -Negative Pressure Wound Therapy N/A -Primary Dressing Applied Mepilex Border, NonAdherent Contact Layer, Promogran -Mepilex Border 2 -Promogran 1 Right -Tubular Bandage Single Layer -Size of Tubigrip Used Size E -Size E ($) 2 Left -Lotion applied to leg before No compression wrap -Tubular Bandage Single Layer -Size of Tubigrip Used Size E -Size E ($) 2 Treatment Response Procedure Tolerated Well Pain Scale: 0-10 Numeric Is Patient Pain Free? Yes - Visit Discharge Discharge Condition Stable Ambulatory Status Ambulatory,Cane Transportation Private Auto Accompanied by Medication Reconcilliation completed & Yes provided to patient/care provider Clinical Summary of Care Provided Yes Assessment/Plan Assessment/Plan (1) Ulcer of right lower extremity: CODE(S): L97.919 - Non-pressure chronic ulcer of unspecified part of rightlower leg with unspecified severity (2) Type 2 diabetes mellitus: CODE(S): E11.9 - Type 2 diabetes mellitus without complications (3) Lower extremity edema: CODE(S): R60.0 - Localized edema PLAN: Plan Patient has chronic right lower extremity ulceration complicated by lower extremity edema and diabetes. Continue to apply slightly moistened pomogran to the wound bed, cover with adaptic, then foam dressing. Change dressings daily or more often as needed to keep clean and dry. With dressing changes, gently wash the area with antibacterial soap, rinse with water/sterile saline, and pat to dry. Regarding the unruptured blister, provided with some fibracol to apply in case it does rupture. Dry dressing while unruptured. Will switch to measured compression stockings instead, prescription provided. Tubigrips as tolerated until stockings are obtained. Continue to elevate legs atall resting times. Arterial and venous studies scheduled for 11/16/22, will discuss results next week. Emphasized the importance of good glycemic control to support wound healing. He will return to clinic in 1 week. 11/16/22 4101 <Electronically signed by Dalia MONTGOMERY> Cosigner Signature (if applicable): CC: ~ Signed [facility] Work Phone: [phone] 735-923208-15-2023 History and physical note Author Dalia Lazo [facility] November 06, 2022 5:27pm Note Date/Time November 02, 2022 4: 11pm [facility] [address] [place] [address] H&P Exam - Wound Care 11/02/22 1611 MR#: [id number] Acct: [id number] Name: MIGUELANGEL MOYA Rep #:[id number] : 1950 72 From: Dalia MONTGOMERY PCP: Dr. Krishna Reynolds MD Status:R EG RCR Location: History of Present Illness Date of Service: 11/02/22 Chief Complaint: RLE wound History of Wound: Patient presents today for evaluation of RLE wound. He is accompanied to this appt by his who is a retired nurse. This wound has been present for 4-5 weeks, no obvious provocation/trauma to the area. It started as a blister. His states she has been doing her best to care for it at home with wet to dry dressings, but she reports he does not tolerate dressing changes very well. He has taken doxycycline and keflex in the past few weeks to address possible infection. Currently, no significant redness,focal swelling, foul odor, N/V, F/C. She notes there is mild-moderate serous drainage. He has had multiple recurrent wounds which similarly started as blisters on hisbilateral shins/calves. They tend to heal up with care at home in a couple weeksbut this one seems more persistent. 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 He had arterial studies performed in 2019 which showed only small vessel disease. He has not had any venous studies. He does have bilateral lower extremity edema, he wears nonmeasured compression stockings. He has diabetes, reportedly under decent control at this time (A1c in May 5.8). [facility] Medical History (Updated 11/06/22 @ 17:22 by ULISES Cui) Atherosclerotic heart disease of [place] coronary artery without angina pectoris Chronic diastolic heart failure Diabetes mellitus Essential hypertension GERD (gastroesophageal reflux disease) Paroxysmal atrial fibrillation Presence of stent in coronary artery (~07/01/20) Pure hypercholesterolemia Type 2 diabetes mellitus Home Medications ascorbic acid (vitamin C) 1,000 mg tablet 1,000 mg PO DAILY SUPPLEMENT 05/30/17 [History Last Taken 09/15/19] aspirin 325 mg tablet 325 mg PO DAILY HEART HEALTH 05/30/17 [History Last Taken 12/29/19] nitroglycerin 0.4 mg sublingual tablet (Nitrostat) 0.4 mg SUBLINGUAL Q5M PRN chest pain 05/30/17 [History Last Taken Unknown] biotin 1 mg tablet 1 mg PO DAILY SUPPLEMENT 05/25/19 [History Last Taken 09/15/19] insulin glargine 100 unit/mL (3 mL) subcutaneous pen (Basaglar KwikPen U-100 Insulin) 56 unit subcut QHS DM 05/25/19 [History Last Taken 09/14/19] omega-3 fatty acids 1,000 mg capsule (Fish Oil Concentrate) 3,000 mg PO BID SUPPLEMENT 05/25/19 [History Last Taken 09/15/19] metoprolol tartrate 50 mg tablet 50 mg PO BID HEART 09/15/19 [History Last Taken 12/29/19] multivitamin with minerals 1 tab PO BID SUPPLEMENT 09/15/19 [History Last Taken 09/15/19] acetaminophen 325 mg tablet 500 mg (1.5385 x 325 mg) PO Q4H PRN Pain Score 1- 10/Temp > 100.7 F 09/19/19 [Rx Last Taken Unknown] amlodipine 10 mg tablet 5 mg PO DAILY 06/24/20 [History Last Taken Unknown] cholecalciferol (vitamin D3) 50 mcg (2,000 unit) capsule 2,000 unit PO DAILY 06/24/20 [History Last Taken Unknown] clopidogrel 75 mg tablet (Plavix) 75 mg PO DAILY 08/04/20 [History Last Taken Unknown] doxazosin 1 mg tablet (Cardura) 1 mg PO QHS 11/02/22 [History Last Taken Unknown] furosemide 80 mg tablet 80 mg PO BID 11/02/22 [History Last Taken Unknown] insulin aspart U-100 100 unit/mL subcutaneous cartridge 25 unit subcut TID 11/02/22 [History Last Taken Unknown] metolazone 2.5 mg tablet 2.5 mg PO DAILY 11/02/22 [History Last Taken Unknown] metoprolol tartrate 50 mg tablet (Lopressor) 50 mg PO BID 11/02/22 [History Last Taken Unknown] Allergy/AdvReac Type Severity Reaction Status Date / Time propofol Allergy Other Verified 06/24/20 08:12 hydrocodone [From Vicodin] AdvReac Severe Hives Verified 06/24/20 08:12 ramipril [From Altace] AdvReac Severe Fast HR Verified 06/24/20 08:12 valsartan [From Diovan] AdvReac Severe Fast HR Verified 06/24/20 08:12 Ffplmxt-XQM-GrW Reductase AdvReac Intermediate Muscle Verified 06/24/20 08:12 Inhibitor aches [Aqqbade-Euy-Muc Reductase Inhibitor] Family History Other Family history of CVA Family history of hyperlipidemia Family history of hypertension Surgical History (Updated 05/25/20 @ 09:[address] Curt Barton, DO) Coronary angioplasty status History of left heart catheterization (LHC) (~12/29/19) History of tonsillectomy and adenoidectomy History of vasectomy Presence of coronary angioplasty implant and graft (~06/2007) Social History (Updated 04/21/20 @ 09:24 by Judith oL NP, [facility]-C) Smoking Status: Never smoker alcohol intake: current details: whiskey,daily substance use type: does not use Vital Signs Vital Signs Vital Signs: 11/02/22 10:00 Temperature 96.0 F L Temperature Source Temporal Pulse Rate 81 Respiratory Rate 16 Blood Pressure 129/85 H Blood Pressure Mean 99 Blood Pressure Source Manual Blood Pressure Position Semi-Fowlers Blood Pressure Location Left Arm Weight Weight: 294 lb Body Mass Index (BMI) 46.0 Physical Exam Const alert, oriented x3 and no apparent distress General Appearance: cooperative Nutritional Appearance: obese centrally obese HEENT normocephalic, head/scalp atraumatic, hearing grossly normal bilaterally, external ears normal and external nose normal Head and Scalp: normal to inspection, normocephalic and atraumatic Eyes EOMs intact bilaterally General Eye: normal appearance of both eyes Neck General: normal visual inspection and trachea midline Resp normal respiratory effort, normal air movement, no retractions and no use of accessory muscles Cardio regular rate and regular rhythm Extremity Extremity Narrative: Bilateral lower extremity edema; appropriate warmth, DP/PT pulses diminished to palpation bilaterally Skin Wounds: wounds noted Wound Narrative: R medial mckee/calf wound with significant adherent slough and devitalized tissue. No significant erythema, focal swelling, purulent drainage, warmth. Scattered scars from prior wounds visible bilateral lower legs. Hemosiderin deposition/lipodermatosclerosis noted bilateral lower legs. Scattered, small fluid blisters noted bilaterally. Neuro oriented x3, CN's II-XII intact bilaterally, moves all extremities and no sensory deficits noted Speech: speech normal Psych mental status grossly normal Appearance: grossly normal Attitude: calm Activity / Motor Behavior: appropriate eye contact Debridement Note Debridement Note Wound debrided: R lower leg Laterality: Right Type of Debridement: Excisional debridement Anesthesia Used: 5% Lidocaine Gel Depth: Down to and including healthy tissue Percentage of wound debrided: 100 Instrument Used: 5mm curette Tissue Removed: slough, devitalized tissue Amount of bleeding with debridement: Mild Bleeding Controlled with: Pressure Patient tolerated procedure: Patient tolerated procedure well Post-Debridement Measurements and Additional Note: Post-Debridement Measurements/Treatment - Nurse 1 - General Ulcer Assessment Start: 11/02/22 10:00 Freq: Status: Active Protocol: KAYLEIGH Activity Type Activity Date Activity User E-sign Co-sign Detail Recorded Client Recorded Date Recorded By Document 11/02/22 10:00 APOLLO [id number] 11/02/22 10:11 APOLLO 11/02/22 10:00 WC - Today's Visit Information Type of service Initial Visit Arrival Mode Ambulatory,Cane Patient Identification Verified (Name & Yes ) Patient Requires Transmission-Based No Precautions Height and Weight Height 5 ft 7 in Weight 294 lb Weight in Pounds 294.0 lbs Weight Measurement Method Estimated by Patient Body Mass Index (BMI) 46.0 BMI Classification Obese BSA - Gladis 2.38 Vital Signs Temperature (97.8 F-99.1 F) 96.0 F L Temperature Source Temporal Pulse Rate (60-100) 81 Pulse Location Monitor Respiratory Rate (12-18) 16 Respiratory rate source Observation Blood Pressure (90/60-120/80) 129/85 H Blood Pressure Mean 99 Source Manual Position Semi-Fowlers Blood Pressure Location Left Arm History Since Last Visit- (Skip if this is Patient's initial visit) Left Footwear Regular Shoe Right Footwear Regular Shoe Pain Scale: 0-10 Numeric Is Patient Pain Free? Yes Lower Extremity Assessment/ Foot Assessment/ Toe Nail Assessment Right -Posterior Tibial Palpable Yes -Posterior Tibial Doppler Monophasic -Dorsalis Pedis Palpable Yes -Dorsalis Pedis Doppler Monophasic -Extremity Color Hyperpigmented -Hair Growth on Legs Yes -Hair Growth on Toes No -Temperature of Extremity Warm -Capillary Refill Less than 3 Seconds -Dependent Rubor Yes -Other Deformity No -Prior Foot Ulcer No -Charcot Joint No -Prior Amputation No -Thick Yes -Discolored Yes -Deformed Yes -Improper Length & Hygeine No Left -Posterior Tibial Palpable Yes -Posterior Tibial Doppler Monophasic -Dorsalis Pedis Palpable Yes -Dorsalis Pedis Doppler Monophasic -Other Deformity No -Prior Foot Ulcer No -Charcot Joint No -Prior Amputation No -Thick No -Discolored Yes -Deformed Yes -Improper Length & Hygeine No Neuropathy Assessment Feet - Top Side and Bottom <Entered> (a) Communication Assessment Preferred language Citizen Of [place] Manufacturing Lead Required No Able to Read Yes Able to Write Yes Communication Tools None Caregiver Communication Skills No Impairment Impairment Right Hearing Abillity Normal Left Hearing Abillity Normal Visual Assistive Devices Glasses Teaching Assessment Preferences Verbal,Written, Audio/Visual, Demonstration Barriers to Learning None Readiness To Learn Good Willingness to Engage in Self Management Med Activies Readiness to Engage in Self Management Med Activities Anxiety Level Calm Cooperation Cooperative Perception Coherent Interest in Health Problem Asks Questions Education Importance Acknowledges Need Does Patient Smoke tobacco or other No substances Is Patient Diabetic Yes Functional Assessment Recent Decline in Ability to Perform Ambulation Assistive Device With Patient Yes List Device(s) with Patient cane Culture/Sabianism/Extraction Operator Cultural/Sabianism Needs that may affect No Treatment Plan Would you allow our hospital schedule maker to No meet you for the purpose of spiritual/ emotional support? Extraction Operator to contact place of uatsdin No Teaching: Wound Center [facility] Orientation/ Contacting Physician -Person Taught Patient,Family -Teaching Method Discussion, Demonstration -Response to teaching Return demonstration, Verbalize understanding (a) 1 - positive 2 - positive 3 - positive 4 - positive VERONICA - Nurse 1 - General Ulcer Measurement Start: 11/02/22 10:00 Freq: Status: Active Protocol: Activity Type Activity Date Activity User E-sign Co-sign Detail Recorded Client Recorded Date Recorded By Document 11/02/22 10:00 APOLLO [id number] 11/02/22 10:11 APOLLO 11/02/22 10:00 Wound Center Nurse 1 1-right medial leg -Combined with other wound No -Current Size (cm) - Length 2.5 -Current Size (cm) - Width 1.0 -Current Size (cm) - Depth 0.1 -Total Square Cm 2.50 -Photo Taken Yes -Epithelialization Small 1-33% -Tunneling No -Undermining/Tunneling No -Circular Undermining No -Classification - Jackson Grading ( Grade 2 Diabetic Ulcer) -Exudate Amt None Present -Wound Margin Flat & Intact -Granulation Amt None Present (0 %) -Slough/Fibrin Yes -Necrosis Amt Large (67-100%) -Necrotic Tissue Type Adherent Slough -Structure Exposed N/A -Texture (Aileen-wound Skin Appearance) Assessed, Localized Edema -Moisture (Aileen-wound Skin Appearance) Assessed -Color (Aileen-wound Skin Appearance) Assessed, Hemosiderin Staining -Temperature (Aileen-wound Skin No Abnormality Appearance) (Pt Warm) -Tenderness on Palpation (Aileen-wound No Skin Appearance) -Ulcer Cleansing Wound Cleanser -Foul Odor after Cleansing No -Anesthetic Used 5% Lidocaine Gel Lower Limb Edema Present Yes Right Calf (cm) 44.6 Right Ankle (cm) 25.0 Left Calf (cm) 45.0 Left Ankle (cm) 24.2 WC - Nurse 3 - General Ulcer D/C NN Start: 11/02/22 10:00 Freq: Status: Active Protocol: Activity Type Activity Date Activity User E-sign Co-sign Detail Recorded Client Recorded Date Recorded By Document 11/02/22 10:57 MW [id number] 11/02/22 10:59 MW Edit Result 11/02/22 10:57 MW (1) [id number] 11/02/22 11:01 MW (1) 1-right medial leg - Mepilex Border 1 => 2 11/02/22 10:57 Wound Care Center Nurse 3 1-right medial leg -Ulcer Cleansing Rinsed/ Irrigated with Saline -Foul Odor after Cleansing No -Negative Pressure Wound Therapy N/A -Primary Dressing Applied Mepilex Border, NonAdherent Contact Layer, Promogran -Mepilex Border 2 -Promogran 1 Right -Tubular Bandage Single Layer -Size of Tubigrip Used Size E -Size E ($) 2 Left -Lotion applied to leg before No compression wrap -Tubular Bandage Single Layer -Size of Tubigrip Used Size E -Size E ($) 2 Treatment Response Procedure Tolerated Well Pain Scale: 0-10 Numeric Is Patient Pain Free? Yes WC - Visit Discharge Discharge Condition Stable Ambulatory Status Ambulatory,Cane Transportation Private Auto Accompanied by Medication Reconcilliation completed & Yes provided to patient/care provider Clinical Summary of Care Provided Yes Charges/Coding Visit Charges Office Visits / Consults: 08387 OV L3 New Procedures Integumentary 111xxx-113xx: 46289 Lenore subq tissue 20 sq cm/< Assessment/Plan Assessment/Plan (1) Ulcer of right lower extremity: CODE(S): L97.919 - Non-pressure chronic ulcer of unspecified part of rightlower leg with unspecified severity (2) Type 2 diabetes mellitus: CODE(S): E11.9 - Type 2 diabetes mellitus without complications (3) Lower extremity edema: CODE(S): R60.0 - Localized edema PLAN: Plan Patient has chronic right lower extremity ulceration complicated by lower extremity edema and diabetes. Will apply slightly moistened pomogran to the wound bed, cover with adaptic, then foam dressing. Change dressings daily or more often as needed to keep cleanand dry. With dressing changes, gently wash the area with antibacterial soap, rinse with water/sterile saline, and pat to dry. Will utilize tubigrips for compression. Patient was instructed to elevate his legs when resting/sleeping and avoid prolonged idle sitting/standing with legs dependent. Will obtain venous and arterial studies. More likely venous disease contributingto his presentation. We discussed the importance of good glycemic control to support wound healing. He will return to clinic in 2 weeks as I am out next week. 11/06/227 <Electronically signed by Dalia MONTGOMERY> Cosigner Signature (if applicable): CC: ~ Signed [facility] Work Phone: 1(988) 586-982008-03-2023 Miscellaneous Notes* Telephone Encounter - Agnieszka Khanna LPN - 10/25/2022 3:13 PM EDT No signuture needed. This info was faxed to number given and form(wound form completed) * Telephone Encounter - Erika Garcia RN - 10/25/2022 9:19 AM EDT Natalie from Wound center calls and states that they received call from patient about wound care without a referral or office note. Natalie asking for referral, office note, and demographics to be sent to [phone]. Faxed office notes and demographics as requested. Please place referral and fax referral. Erika Garcia RN documented in this encounterTrinity [facility]08-03-2023 Miscellaneous Notes* Telephone Encounter - Carlene Goldberg RN - 10/25/2022 8:42 AM EDT Spouse (Jessica) calls and provider recommendation reviewed. Jessica verbalizes understanding. Asked ifneeded a referral and Jessica reports no. Carlene Goldberg RN * Telephone Encounter - Krishna Reynolds MD - 10/25/2022 3:30 AM EDT I recommend Wound Center. * Telephone Encounter - Christina Pedro RN - 10/23/2022 8:09 AM EDT reports patient completed 2 AB's: doxycycline first, then keflex was complete on 10-18, for leg wound. Reports wound is looking good, but on Saturday she noted purulent drainage from the wound, and again today. Reports today wound has a scab and is tender to touch. No reddness, no fever, noswelling aside from his usual swelling, pt wears compression socks. states she cleans the wound daily. Asking if pcp thinks patient should take another round of AB's? Please advise . documented in this encounterTrinity Health [facility] Campus07-28-2023 Miscellaneous Notes* Telephone Encounter - Agnieszka Khanna LPN - 10/19/2022 8:41 AM EDT Completed and faxed to number on the form. * Telephone Encounter - Agnieszka Khanna LPN - 10/18/2022 2:01 PM EDT Pt's spouse brought in [facility] for their son to be off work for appt with pt to drive pt to his appts. This was completed last year. To pcp to review. Fax to number on [employer] business card which is [phone] attn Otilia Odonnell. documented in this encounterTrinity Health [facility] Campus07-20-2023 Miscellaneous Notes* Telephone Encounter - Roxanna Dennis LPN - 10/11/2022 8:27 AM EDT Left message on . Roxanna Dennis LPN * Telephone Encounter - Krishna Reynolds MD - 10/11/2022 12:38 AM EDT Patient's request for medication is as follows Requested Prescriptions Signed Prescriptions Disp Refills cephALEXin (KEFLEX) 500 mg capsule 21 capsule 0 Sig: Take 1 capsule by mouth three times daily for 7 days. Authorizing Provider: KRISHNA REYNOLDS Order entered - please phone pharmacy and notify patient. Krishna Reynolds MD * Telephone Encounter - Christina Pedro RN - 10/10/2022 4:37 PM EDT reports patient will finish doxycycline bid tomorrow for wound on right leg. Reports leg has improved, but still has some reddness around the wound b/c he has diabetes. No warmth. No fever. Reports she noted some purulent drainage today when pushing around the wound. Reports she is cleaning itdaily. thinks patient would benefit from another round of AB or a different AB. Asking pcp to please advise . Leo Sherwood. documented in this encounterTrinity Health [facility] Campus07-10-2023 Miscellaneous Notes* Telephone Encounter - Josefina Qureshi LPN - 10/01/2022 4:27 PM EDT called and she tried to cut in half pt's Amlodipine and is not able to. asking for a new rx to be sent to the pharmacy for 2.5 mg. Josefina Qureshi LP Patient has been identified by name and [...] Thank you. Josefina AUSTIN documented in this encounterTrinity Health [facility] Campus07-10-2023 History of Present illness Narrative* Krishna Reynolds MD - 10/01/2022 3:39 PM EDT This note was created using Golf[employer]. Subjective Miguelangel Moya is a 72 year [...] Neuropathy, With Long-Term Current Use of Insulin ([facility]) Class 3 Severe Obesity With Body Mass Index (Bmi) of 45.0 to 49.9 in Adult ([facility]) Other Hyperlipidemia Essential Hypertension Coronary Artery Disease of [place] Artery of [place] Heart With Stable Angina Pectoris ([facility]) Persistent Atrial Fibrillation ([facility]) Memory Disturbance Bph (Benign Prostatic Hyperplasia) History of Partial Amputation of Toe ([facility]) Robin (Dyspnea On Exertion) Statin Intolerance Chronic Diastolic Congestive Heart Failure (Hcc) Valvular Heart Disease Non-Seasonal Allergic Rhinitis Uncontrolled Diabetes Mellitus Hypertensive Heart Disease With Chronic Diastolic Congestive Heart Failure ([facility]) Current Outpatient Medications Medication Sig nitroglycerin sublingual [...] 2 DM - Uncontrolled .65 Insulin: Yes flash glucose sensor (FREESTYLE MERCY 2 SENSOR) kit Test blood sugar(s) 4-5 times daily Dx: Type 2 DM - Uncontrolled .65 Insulin: Yes furosemide (LASIX) 80 mg tablet Take 1 tablet by mouth twice daily. Three times per day as directedPRN blood sugar diagnostic (BLOOD GLUCOSE TEST) test strip Test blood sugar(s) 4-5 times daily Dx: Type2 DM - Uncontrolled .65 Insulin: Yes BIOTIN ORAL Take 1 tablet by mouth once daily. Fish Oil-Jackson-3 Fatty Acids (FISH OIL OMEGA 3-6-9) 300-1,000 [...] with long-term current use of insulin (HCC) -ICD9: 250.60, 357.2, V58.67, ICD10: E11.40, Z79.4 - Controlled 5. Need for COVID-19 vaccine - ICD9: V04.89, ICD10: Z23 - [employer] COVID-19 BIVALENT VACCINE, AGE 12+ YR 6. Essential hypertension - ICD9: 401.9, ICD10: I10 - Controlled - Decrease amlodipine to 1/2 tablet daily due to edema. - METOPROLOL TARTRATE 50 MG TABLET - AMLODIPINE 5 MG TABLET Krishna Reynolds MD documented in this encounterTrinity Health [facility] Campus07-10-2023 Instructions* Patient Instructions* Krishna Reynolds MD - 10/01/2022 3:09 PM EDT SEE MEDICATION LIST FOR CHANGES. CALL FOR REFILLS WHEN NEEDED. documented in this encounterTrinity Health System [facility] Campus06-21-2023 Miscellaneous Notes* Telephone Encounter - Roxanna Dennis LPN - 09/12/2022 1:21 PM EDT Called [facility]'s pharmacy, Patient has active RX for Plavix with refills remaining. Pharmacy will get ready for Patient to pickup. Roxanna Dennis LPN * Telephone Encounter - Guillermina Love [facility] - 09/12/2022 12:59 PM EDT Patient has been identified by name and date of : Yes Requested Prescriptions Pending Prescriptions Disp Refills clopidogrel (PLAVIX) 75 mg tablet 90 tablet 3 Sig: Take 1 tablet by mouth once daily. RX INSTRUCTIONS: Patient aware RX will be sent to pharmacy. No need to notify patient. [facility] documented in this encounterTrinity Health System [facility] Campus06-05-2023 History of Present illness Narrative* Flavia Tadeo RN - 08/27/2022 10:47 AM EDT 22 ga angio started to right a/c. Good blood return. Flushed easily with NSS. Dressing applied. Definity (Lot # [id number] exp 07/24/23 ) mixed per protocol. 2 cc administered throughout procedure. 8cc discarded. Pt tolerated procedure well. No C/o's, Hep lock D/c'd and dressing applied. Patient discharged ambulatory with Community Relations Assistant. Flavia Tadeo, RN documented in this encounterTrinity Health [facility] Campus05-15-2023 Miscellaneous Notes* Telephone Encounter - Chaz Alfaro Ma - 08/06/2022 1:43 PM EDT YAMILETH: 06/01/2022 Last refill: 01/12/2021 QTY: 25 Refills: 2 * Telephone Encounter - Jess Xavier - 08/06/2022 9:02 AM EDT Patient has been identified by name and date of : Yes Last office visit in this department: Visit date not found RX INSTRUCTIONS: Patient aware RX will be sent to pharmacy. No need to notify patient. Patient phones requesting refills as follows: Requested Prescriptions No prescriptions requested or ordered in this encounter Please review and advise. Jess Xavier documented in this encounterTrinity Health [facility] Campus05-02-2023 Miscellaneous Notes* Telephone Encounter - Chaz Alfaro Ma - 07/24/2022 8:48 AM EDT Faxed as requested - detailed messaged left advising patient. * Telephone Encounter - Josefina Qureshi LPN - 07/23/2022 9:12 AM EDT Pt called in to get an excuse from Jury duty. Pt reports he has a long list of problems. Pt reportshe is DM with neuropathy, not able to sit long periods of time and has to stand up every 20 minutes, has to urinate frequently due to water pills, heart issues and there are more listed on his problem list. Please fax note to: FAX: [phone] Attn Immanuel Kate. Please advise pt when this has been done. Pt asking to have a message left on his phone. Josefina Qureshi LPN documented in this encounterTrinity Health System [facility] Campus03-10-2023 History of Present illness Narrative* Krishna Reynolds MD - 06/01/2022 9:31 AM EST This note was created using Nafham. Subjective Miguelangel Moya is a 71 year [...] Neuropathy, With Long-Term Current Use of Insulin ([facility]) Class 3 Severe Obesity With Body Mass Index (Bmi) of 45.0 to 49.9 in Adult ([facility]) Other Hyperlipidemia Essential Hypertension Coronary Artery Disease of [place] Artery of [place] Heart With Stable Angina Pectoris (Hcc) Persistent Atrial Fibrillation (Hcc) Memory Disturbance Bph (Benign Prostatic Hyperplasia) History of Partial Amputation of Toe ([facility]) Dyspnea On Exertion Statin Intolerance Chronic Diastolic Congestive Heart Failure (Hcc) Valvular Heart Disease Non-Seasonal Allergic Rhinitis Uncontrolled Diabetes Mellitus Hypertensive Heart Disease With Chronic Diastolic Congestive Heart Failure (Hcc) Social History Tobacco Use Smoking status: Never [...] twice daily. Three times per day as directedPRN doxazosin (CARDURA) 1 mg tablet TAKE ONE TABLET BY MOUTH EVERY DAY AT BEDTIME metOLazone (ZAROXOLYN) 2.5 mg tablet Take 1 tablet by mouth once daily. insulin degludec (TRESIBA FLEXTOUCH U-200) 200 unit/mL (3 mL) injection Inject 120 Units subcutaneously daily at bedtime. blood sugar diagnostic (BLOOD GLUCOSE TEST) test strip Test blood sugar(s) 4-5 times daily Dx: Type2 DM - Uncontrolled E11.65 Insulin: Yes metoprolol [...] 1 tablet by mouth once daily. Fish Oil-Jackson-3 Fatty Acids (FISH OIL OMEGA 3-6-9) 300-1,000 mg CpDR Take 3000 mg daily. Lancets (ONE TOUCH ULTRASOFT LANCETS) Mis lancets twice daily. Use as instructed ( [...] with patient, and I recommended no further interventionat this time. Assessment and Plan 1. Statin intolerance - ICD9: 995.27, ICD10: Z78.9 (primary diagnosis) See below. 2. Type 2 diabetes mellitus with diabetic neuropathy, with long-term current use of insulin (HCC) -ICD9: 250.60, 357.2, V58.67, ICD10: E11.40, Z79.4 - [...] Discontinue DOXAZOSIN. 5. Coronary artery disease of [place] artery of [place] heart with stable angina pectoris (HCC) - ICD9: 414.01, 413.9, ICD10: I25.118 Stable. - CLOPIDOGREL 75 MG TABLET 6. Other hyperlipidemia - ICD9: 272.4, ICD10: E78.49 Discussed medication dosage, usage, goals of therapy, and side effects. Printed RX. He will check pricing and coverage. - NEXLIZET 180 MG-10 MG TABLET - LIPID PANEL BASIC Krishna Reynolds MD documented in this encounterTrinity Health [facility] Campus01-17-2023 History of Present illness Narrative* Nhung Longo MA - 04/10/2022 7:35 AM EST POPULATION HEALTH NAVIGATION OUTREACH Action/FYI Spoke with [...] EXAM due on 05/01/2022 Navigation Signature: Nhung Longo MA April 10, 2022 7:35 AM documented in this encounterTrinity Health System [facility] Campus12-22-2022 History of Present illness Narrative* Regulo Lamas RN - 03/15/2022 3:45 PM EST DIABETES SELF-MANAGEMENT EDUCATION AND SUPPORT Location: [place] Type of visit: In person individual Types of DSMES: Initial/Comprehensive (add to or update ADA spreadsheet) PATIENT'S MAIN CONCERN TODAY: Freestyle Libre2 Support person present for education today: spouse Cognitive ability: Alert and oriented Motivation to learn: Interested Learning barriers identified by educator: none Method of instruction: written, verbal, and demonstration INTERVENTIONS/TOPICS COVERED: -Diabetes Pathophysiology: insulin resistance, relationship of glucose and insulin in the body, andhepatic glucose release -Monitoring: BG targets, using a home glucose monitor, CGM type: Freestyle Libre2, CGM basics &daily use, and CGM insertion steps -Healthy Eating: [...] Race/Ethnic Origin: White/ Does your culture or scientologist require any of the following: No cultural/druze practices affecting DM Do you have problems with: Walking 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 Three times per day as directedPRN doxazosin (CARDURA) 1 mg tablet TAKE ONE TABLET BY MOUTH EVERY DAY AT BEDTIME metOLazone (ZAROXOLYN) 2.5 mg tablet Take 1 tablet by mouth once daily. insulin degludec (TRESIBA FLEXTOUCH U-200) 200 unit/mL (3 mL) injection Inject 120 Units subcutaneously daily at bedtime. blood sugar diagnostic (BLOOD GLUCOSE TEST) test strip Test blood sugar(s) 4-5 times daily Dx: Type2 DM - Uncontrolled Insulin: Yes metoprolol tartrate, short acting, (LOPRESSOR) [...] diabetic (UNIFINE PENTIPS PLUS) 33 gauge x /32 ndle Use with insulin four times daily. E11.40, Z79.4 BIOTIN ORAL Take 1 tablet by mouth once daily. Fish Oil-Jackson-3 Fatty Acids (FISH OIL OMEGA 3-6-9) 300-1,000 mg CpDR Take 3000 mg daily. Lancets (ONE TOUCH ULTRASOFT LANCETS) [facility] lancets twice daily. Use as instructed ( [...] TIME: 3:47 PM PAGER: documented in this encounterTrinity Health [facility] Campus11-14-2022 Miscellaneous Notes* Telephone Encounter - [facility] - 02/05/2022 10:46 AM EST Miguelangel Moya is calling Krishna Reynolds MD today to request an order for diabetic foot wear from [employer], in [place]. Please advise patient when order has been faxed. Patient has been identified by name and birthdate. Duration of symptoms: N/A Person calling: self Call patient at: on wifes cell [phone] (cell) Was an appointment scheduled: No Closing statement: Symptom Call: Thank you for calling [facility], your call is very important. A nurse will call in approximately 2-4 hours during business hours. If this is an emergency, please contact 911. [facility] documented in this encounterTrinity Health System [facility] Campus11-07-2022 Miscellaneous Notes* Telephone Encounter - Stacey Shepard Ma - 01/29/2022 2:01 PM EST Mailed * Telephone Encounter - Leila Russell APRN.CNP - 01/29/2022 1:07 PM EST Labs ordered, please print and mail to patient. Also print and mail urine test ordered on 01/26 Leila Russell APRN.CNP * Telephone Encounter - Demi Marrero - 01/29/2022 10:52 AM EST Patient is asking for any lab work that would be ordered for his appointment with Dr. Reynolds on 06/01 be mailed to him as he takes them to [facility]. Please advise and mail lab orders. Thank you. documented in this encounterTrinity Health System [facility] Campus11-04-2022 History of Present illness Narrative* Leila Older, 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 - 01/26/2022 8:25 AM EDT Medicare Yearly Visit Medical B eligibilty date 2010 Date of last exam 11/30/20 PAST MEDICAL HISTORY Diagnosis Date Acute kidney injury (DANIELA) with acute tubular necrosis (ATN) ([facility]) 11/06/2019 CAD (coronary artery disease) 10/07/2007 70% [...] cath, L heart LEFT HEART CATH,PERCUTANEOUS 12/29/2019 [facility] TONSILLECTOMY PRIMARY/SECONDARY <AGE 12 1957 Tonsillectomy TRANSCATH STENT INIT VESSEL,PERCUT 11/10/2007 Transcath stent init vessel cesar, DILIA VASECTOMY UNI/BI SPX W/POSTOP SEMEN EXAMS 1977 ALLERGIES: Altace [Ramipril], Bactrim [Sulfamethoxazole-Trimethoprim], Diovan [Valsartan], Metolazone, Propofol, Ramipril, Seasonal Allergies, and Jkhlqlf-Bgx-Ntd Reductase Inhibitors Medications reviewed: Yes FAMILY HISTORY [...] Miguelangel likes to exercise by going to [employer] two times a week. He watches his diet for sodium, low fat and low cholesterol most of the time. List of current specialists seen: Bottling Line Attendant- Dr. Stover Electrical Discharge Machine Operator- Dr. Aleman Renal- Dr. Hebert Podiatry-[facility] (Dr. Heredia) End of Live Planning discussed [...] bars in the bathroom, lack of handrails onthe stairs or have poor lighting? No Hearing Evaluation: normal PHYSICAL EXAM BP 103/62 Pulse 76 Resp 20 Ht 169.5 cm (5' 6.75) Wt 134.7 kg (297 lb) BMI 46.87 [...] with long-term current use of insulin (HCC) -ICD9: 250.60, 357.2, V58.67, ICD10: E11.40, Z79.4 Patient [...] - SPIRONOLACTONE 25 MG TABLET Leila Russell APRN.PATRICIA documented in this encounterTrinity Health System [facility] Campus11-03-2022 Miscellaneous Notes* Telephone Encounter - Flavia Tadeo RN - 01/25/2022 11:54 AM EDT Spoke to Samantha, Pharm D. at [facility] to clarify order. She will fill rx for pt. Flavia Tadeo RN * Telephone Encounter - Flavia Tadeo RN - 01/23/2022 1:33 PM EDT After reviewing office visit notes from 01/15/[address] Stover, it looks like pt. is taking Lasix 80 mg BID, and takes a third pill occasionally PRN for leg swelling. Please advise and send new order to [facility]. Thank you. Flavia Tadeo, RN * Telephone Encounter - Brittney Kali KESSLER - 01/22/2022 3:56 PM EDT Marcia with [facility] called regarding order for Lasix. They need clarification on the order: 1 tablet by mouth twice daily. Three times per day as directed PRN. New order can be sent. Brittney Bass LPN documented in this encounterTrinity Health [facility] History of Present illness Narrative* Regulo Stover MD - 01/15/2022 3:20 PM EDT Images from the original note were not included. [facility] SECTION OF REGIONAL CARDIOLOGY Cardiology ([facility]) [address] [facility] [id number] OUTPATIENT VISIT DATE 01/15/2022 PRIMARY CARE PHYSICIAN: Krishna Reynolds [address] [place] [address] HISTORY OF PRESENT ILLNESS: Mr. Moya is a 71 year old morbidly obese gentleman with a history of coronary artery disease andprior high risk coronary intervention, diabetes (insulin requiring), chronic diastolic congestive heart failure, hypertension, obstructive sleep apnea (noncompliant with CPAP) and dyslipidemia who presents for routine follow-up. Since his last visit, he tells me he has been doing about the same. Hehas shortness of breath on exertion and instability [...] injury (DANIELA) with acute tubular necrosis (ATN) ([facility]) 11/06/2019 CAD (coronary artery disease) 10/07/2007 70% [...] cath, L heart LEFT HEART CATH,PERCUTANEOUS 12/29/2019 [facility] TONSILLECTOMY PRIMARY/SECONDARY <AGE 12 1957 Tonsillectomy [...] agitation Ramipril Seasonal Allergies Other: See Comments Lhrtqku-Obi-Nud Red* Other: See Comments Muscle aches MEDICATIONS: [...] 1 tablet by mouth once daily. Fish Oil-Jackson-3 Fatty Acids (FISH OIL OMEGA 3-6-9) 300-1,000 [...] Test blood sugar(s) 4-5 times daily Dx: Type2 DM - Uncontrolled E11.65 Insulin: Yes pen [...] treated by placement of a 5.0 x 12mm Synergy stent using intravascular ultrasound guidance. The [...] LAD have mild diffuse disease. Echocardiogram 12/10/2019 [place]: Technically difficult study Grossly normal LV function [...] mid distal AV groove circumflex. 2 obtuse marginalbranches with mild to moderate diffuse disease. I [...] AND RECOMMENDATIONS: 1. Coronary artery disease of [place] artery of [place] heart with stable angina pectoris (HCC) - [...] Encourage patients to take his weight daily. Alsodiscussed dietary restrictions. - FUROSEMIDE 80 MG TABLET 4. Essential hypertension - ICD9: 401.9, ICD10: I10 Well-controlled on current regimen 5. Other hyperlipidemia - ICD9: 272.4, ICD10: E78.49 Very difficult to control due to statin intolerance. 6. Statin intolerance - ICD9: 995.27, ICD10: Z78.9 7. Class 3 severe obesity due to excess calories with serious comorbidity and body mass index (BMI)of 45.0 to 49.9 in adult (HCC) - ICD9: 278.01, V85.42, ICD10: E66.01, Z68.42 8. Dyspnea on exertion - ICD9: 786.09, ICD10: R06.09 9. Screening for ischemic heart disease - ICD9: V81.0, ICD10: Z13.6 - ECG COMPLETE Regulo Stover MD documented in this encounterTr[facility] History of Present illness Narrative* Arabella Heredia DPM - 11/13/2021 10:16 AM EDT Images from the original note were not included. This 70 year old male presents for painful calluses bilateral feet. SMBG's are better. no other pedal complaints PAIN EVALUATION 11/13/2021 0905 Pain Level: -- 3-10 Pain Location: -- bilateral foot Description: Sharp Duration Units: Years Frequency: Continuous PAST MEDICAL HISTORY Diagnosis Date Acute kidney injury (DANIELA) with acute tubular necrosis (ATN) ([facility]) 11/06/2019 CAD (coronary artery disease) 10/07/2007 70% [...] Test blood sugar(s) 4-5 times daily Dx: Type2 DM - Uncontrolled E11.65 Insulin: Yes metoprolol [...] 1 tablet by mouth once daily. Fish Oil-Jackson-3 Fatty Acids (FISH OIL OMEGA 3-6-9) 300-1,000 mg CpDR Take 3000 mg daily. Lancets (ONE TOUCH ULTRASOFT LANCETS) [facility] lancets twice daily. Use as instructed ( [...] agitation Ramipril Seasonal Allergies Other: See Comments Nfjnrda-Ezt-Nhm Red* Other: See Comments Muscle aches OBJECTIVE: [...] shoes Follow-up in 3 months or sooner corine Heredia DPM documented in this encounterTr[facility]07-27-2022 Miscellaneous Notes* Telephone Encounter - Ivy Morse LPN - 10/18/2021 9:03 AM EDT Patient's request for medication is as follows: Pending Prescriptions Disp Refills DOXAZOSIN 1 MG TABLET 90 tablet 3 Sig: TAKE ONE TABLET BY MOUTH EVERY DAY AT BEDTIME TINA: Yes Last seen 02/27/2021. Next visit 01/15/2022. Prescription(s) as above. Please process accordingly. Ivy Morse LPN documented in this encounterTrinity Health [facility]07-26-2022 Miscellaneous Notes* Telephone Encounter - Agnieszka Khanna LPN - 10/17/2021 3:13 PM EDT Mailed original and copied for scan documents. * Telephone Encounter - Carlene Goldberg RN - 10/17/2021 2:41 PM EDT (Jessica) calls in to request that original [facility] paperwork be mailed to home address at: [address], [place] [address]. Carlene Goldberg, RN * Telephone Encounter - Agnieszka Khanna LPN - 10/17/2021 9:49 AM EDT Faxed to number on the business card that was sent with the form. Fax number is [phone]. Message left to pts spouse. This will be in pts medical records in scanned documents. * Telephone Encounter - Krishna Reynolds MD - 10/16/2021 6:08 PM EDT Done. * Telephone Encounter - Agnieszka Khanna LPN - 10/12/2021 1:16 PM EDT Pt's spouse brought in [facility] for pts son to be completed. [facility]. This has bee completed previously 09/22/2020. documented in this encounterTrinity Health [facility]07-20-2022 Miscellaneous Notes* Telephone Encounter - Nhung Bradley MA - 10/11/2021 1:38 PM EDT Received form [facility] request for Unifine Pentips, copied last OV and placed in providers in box for review and signature. Once signed will fax to them. Nhung Bradley MA documented in this encounterTrinity Health [facility]06-17-2022 History of Present illness Narrative* Krishna Reynolds MD - 09/08/2021 10:00 AM EDT This note was created using NoteWriter. 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 Range: 95-214. Average: n/a. Patient wastesting TID to QID. Higher frequency of testing needed: yes. Reason: medication adjustment, uncontrolled DM, labile blood sugars. . Assessment and Plan 1. Type 2 diabetes mellitus with diabetic neuropathy, with long-term current use of insulin ([facility]) -ICD9: 250.60, 357.2, V58.67, ICD10: E11.40, Z79.4 (primary diagnosis) improved control - Continue current medications - BLOOD GLUCOSE TEST STRIPS - BASIC METABOLIC PNL - HGB A1C 2. Essential hypertension - ICD9: 401.9, ICD10: I10 - fair control 3. Chronic diastolic congestive heart failure (HCC) - ICD9: 428.32, 428.0, ICD10: I50.32 Stable. - METOLAZONE 2.5 MG TABLET 4. Coronary artery disease of [place] artery of [place] heart with stable angina pectoris (HCC) - ICD9: 414.01, 413.9, ICD10: I25.118 Stable. 5. Persistent atrial fibrillation (HCC) - ICD9: 427.31, ICD10: I48.19 Stable. 6. Need for vaccination - ICD9: V05.9, ICD10: Z23 - PNEUMOCOCCAL VACCINE (PREVNAR 20) Krishna Reynolds MD documented in this encounterTrinity [facility]05-16-2022 Miscellaneous Notes* Telephone Encounter - Talya Juarez LPN - 08/07/2021 10:03 AM EDT Patient's pharmacy requesting new refill. Pending Prescriptions Disp Refills CLOPIDOGREL 75 MG TABLET 90 tablet 3 Sig: TAKE ONE TABLET BY MOUTH EVERY DAY TINA: Yes He will see Dr Stover on 01-15-2022. Talya Juarez LPN documented in this encounterTrinity Health [facility]05-16-2022 Miscellaneous Notes* Telephone Encounter - Talya Juarez LPN - 08/07/2021 9:58 AM EDT Patient's pharmacy requesting new refill. Pending Prescriptions Disp Refills METOPROLOL TARTRATE 50 MG TABLET 200 tablet 3 Sig: TAKE ONE TABLET BY MOUTH TWICE A DAY . MAY TAKE ADDITIONAL 25MG (1/2 TABLET) PER DAY FOR FAST HEART RATE DIRECTED TINA: Yes He will see Dr Stover on 01-13-2022. Talya Juarez LPN documented in this encounterTrinity [facility]04-28-2022 Miscellaneous Notes* Telephone Encounter - Elsa Marin LPN - 07/20/2021 8:06 AM EDT Patient has been identified by name and [...] rx sent to pharmacy. documented in this encounterTrinity [facility]04-18-2022 Miscellaneous Notes* Telephone Encounter - Josefina Qureshi LPN - 07/10/2021 1:53 PM EDT Spoke with Marcia and information listed below given. Josefina Qureshi LPN * Telephone Encounter - Krishna Reynolds MD - 07/10/2021 11:48 AM EDT Dose is correct and was being titrated up. * Telephone Encounter - Josefina Qureshi LPN - 07/10/2021 10:38 AM EDT Marcia with [facility] calls and states she is calling to clarify the dose on Tresiba to inject 105 units SQ daily at bedtime. Large increase from last refill. Please advise. Josefina Qureshi LPN documented in this encounterTrinity Health [facility]04-18-2022 Miscellaneous Notes* Telephone Encounter - Krishna Reynolds MD - 07/10/2021 8:20 AM EDT Insulin doses updated. Patient's request for medication [...] Provider: KRISHNA REYNOLDS MD documented in this encounterTrinity Health [facility]12-22-2021 History of Past illness Narrative* Problem Noted Date Diagnosed Date Resolved Date Uncontrolled diabetes mellitus 03/15/2021 06/07/2023 Venous stasis ulcer of right calf limited [...] as of this encounter (statuses as of 06/07/2023) [facility] History of Past illness Narrative* Problem Noted Date Diagnosed Date Resolved Date Uncontrolled diabetes mellitus 03/15/2021 06/07/2023 Venous stasis ulcer of right calf limited [...] as of this encounter (statuses as of 06/13/2023) [facility] History of Past illness Narrative* Problem Noted Date Diagnosed Date Resolved Date Uncontrolled diabetes mellitus 03/15/2021 06/07/2023 Venous stasis ulcer of right calf limited [...] as of this encounter (statuses as of 06/27/2023) [facility] History of Past illness Narrative* Problem Noted Date Diagnosed Date Resolved Date Uncontrolled diabetes mellitus 03/15/2021 06/07/2023 Venous stasis ulcer of right calf limited [...] as of this encounter (statuses as of 07/05/2023) [facility] of Past illness Narrative* Problem Noted [...] of this encounter (statuses as of 07/10/2021) [facility] of Past illness Narrative* Problem Noted [...] of this encounter (statuses as of 07/10/2021) [facility] of Past illness Narrative* Problem Noted [...] of this encounter (statuses as of 07/21/2021) [facility] of Past illness Narrative* Problem Noted [...] of this encounter (statuses as of 08/07/2021) [facility] of Past illness Narrative* Problem Noted [...] of this encounter (statuses as of 08/07/2021) [facility] of Past illness Narrative* Problem Noted [...] of this encounter (statuses as of 09/09/2021) [facility] of Past illness Narrative* Problem Noted [...] of this encounter (statuses as of 10/11/2021) [facility] of Past illness Narrative* Problem Noted [...] of this encounter (statuses as of 10/17/2021) [facility] Past [facility] Narrative* Problem Noted [...] of this encounter (statuses as of 10/18/2021) [facility] Narrative* Problem Noted [...] of this encounter (statuses as of 11/13/2021) [facility] Narrative* Problem Noted [...] of this encounter (statuses as of 01/15/2022) [facility] of Past [facility] Narrative* Problem Noted [...] of this encounter (statuses as of 01/25/2022) [facility] Past [facility] Narrative* Problem Noted [...] Nonspecific abnormal results of liver function s chiody 08/19/2014 documented as of this encounter (statuses as of 01/26/2022) [facility] of Past [facility] Narrative* Problem Noted [...] of this encounter (statuses as of 01/29/2022) [facility] of Past illness Narrative* Problem Noted [...] of this encounter (statuses as of 02/06/2022) [facility] of Past illness Narrative* Problem Noted [...] of this encounter (statuses as of 03/16/2022) [facility] Past [facility] Narrative* Problem Noted [...] of this encounter (statuses as of 04/10/2022) [facility] Narrative* Problem Noted [...] of this encounter (statuses as of 06/01/2022) [facility] Narrative* Problem Noted [...] of this encounter (statuses as of 07/24/2022) [facility] Narrative* Problem Noted [...] of this encounter (statuses as of 08/07/2022) [facility] Narrative* Problem Noted [...] of this encounter (statuses as of 08/27/2022) [facility] Narrative* Problem Noted [...] of this encounter (statuses as of 09/12/2022) [facility] Narrative* Problem Noted [...] of this encounter (statuses as of 10/02/2022) [facility] Narrative* Problem Noted [...] of this encounter (statuses as of 10/03/2022) [facility] Narrative* Problem Noted [...] of this encounter (statuses as of 10/11/2022) [facility] Narrative* Problem Noted [...] of this encounter (statuses as of 10/19/2022) [facility] Narrative* Problem Noted [...] of this encounter (statuses as of 10/25/2022) [facility] Narrative* Problem Noted [...] of this encounter (statuses as of 10/26/2022) [facility] Narrative* Problem Noted [...] of this encounter (statuses as of 11/20/2022) [facility] Narrative* Problem Noted [...] of this encounter (statuses as of 12/06/2022) [facility] Narrative* Problem Noted [...] of this encounter (statuses as of 12/07/2022) [facility] Narrative* Problem Noted [...] of this encounter (statuses as of 01/14/2023) [facility] Narrative* Problem Noted [...] of this encounter (statuses as of 01/16/2023) [facility] Narrative* Problem Noted [...] of this encounter (statuses as of 03/15/2023) [facility] Narrative* Problem Noted [...] of this encounter (statuses as of 05/23/2023) [facility] History of Present illness Narrative* Katy Lynch, JEOVANY - 09/05/2020 1:45 PM EDT Radiology Service Progress Note PATIENT NAME: Miguelangel Moya DATE OF SERVICE: September 05, 2020 TIME: 1:39 PM PATIENT IDENTITY VERIFICATION COMPLETED USING TWO (2) IDENTIFIERS: Name and Date of confirmedby patient verbally. FALL SCREENING: Has the patient had 2 falls in the last year or 1 fall with injury or currently using an Ambulatory Assistive Device (Walker, Cane, Wheelchair, Crutches, etc.)? Yes, Patient High Riskfor Falls What interventions were put in place to prevent falls during this visit? Yellow Falls Risk Wristband Applied, Offered Assistance with Transfers/Clothing and Increased Observations by Caregivers PATIENT GENDER DATA: Male PATIENT RELEVANT IMPLANT DATA REVIEWED: Not Applicable RADIOLOGY DEPARTMENT: General X-ray: Exam(s) Completed: Lower Extremity X- Ray(s): Foot, Left PERIPHERAL IV DATA: Not applicable SIGNED BY: JEOVANY Mcguire September 05, 2020 1:39 PM documented in this encounterTrinity Health [facility]04-09-2021 NoteHNO ID: [id number] Author: Michelle VelozRn) SHALA Mulligan Service: Care Management Author Type: Registered Nurse Type: Care Mgt Initial Assessment Filed: 07/01/2020 7:31 PM Note Text: CARE MANAGEMENT: ASSESSMENT AND DISCHARGE PLAN SERVICE DATE: July 01, 2020 SERVICE TIME: 7:00 PRIMARY CARE PHYSICIAN: Krishna Reynolds MD ADMISSION STATUS: Ambulatory Surgery Needs Prior to Discharge: Ready for Discharge MEDICAL: MEDICARE A AND B 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 Last discharge within 30 days: No Advance Directive: Current Advance Directive: Health Care Power of Park Worker;Living Will In Chart: Yes Up To Date [...] use) Has the Patient Been in a Retirement Facility in the Past 30 days?: No SOCIAL: Living Arrangements: Home Lives With: Spouse Financial Resources: Retired Primary Contact: Extended Emergency Contact Information Primary Emergency Contact: Jessica Moya Address: [address] [place] [address] [address] Relation: Spouse Supportive Patient Contact:: Yes Contact Resources: Family Family Name/Phone: Jessica Moya (Spouse) [phone] (Home Phone) Caregiver AssessmentCaregiver is ready, willing [...] Mostly I feel financially burdened by my [id number] expenses for my prescription medication:: 0 - Disagree Mostly Risk Score: 0 Patient is categorized as: Low risk < 2 Are you interested in bedside delivery of your medications? No Is Patient Psychosocially Complex?: No ASSESSMENT AND PLAN: Medical Needs: Medical Needs: Two or more chronic diseases;Diabetes Psychosocial Needs: Psychosocial Needs: None FREEDOM OF CHOICE EXPLAINED: [place] of Choice Given: No Reason Not Given: No placements necessary POTENTIAL TRANSITION PLANS Home Patient in [facility] after cardiac catherization. He lives with his a RN. 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 He has problems with cost of medicine when in [facility]. Insulin cost 300.00. He has walkers and wheelchair but does not need them. + PCP Anticipate d/c weekend no needs. SIGNATURE: Michelle Mulligan RN PATIENT NAME: Miguelangel Moya DATE: July 01, 2020 TIME: 7:28 PM PAGER/CONTACT #: [phone]2020 NoteHNO ID: [id number] Author: Regulo Stover Service: ? Author Type: [...] the next 1 to 2 weeks.[facility]03-30-2021 History of Present illness Narrative* Radha Mars Tech (Tech) - 06/21/2020 12:50 PM EDT Radiology Service Progress Note PATIENT NAME: Miguelangel Moya DATE OF SERVICE: June 21, 2020 TIME: 12:48 PM PATIENT IDENTITY VERIFICATION COMPLETED USING TWO (2) IDENTIFIERS: Name and Date of confirmedby patient verbally. FALL SCREENING: Has the patient had 2 falls in the last year or 1 fall with injury or currently using an Ambulatory Assistive Device (Walker, Cane, Wheelchair, Crutches, etc.)? No PATIENT GENDER DATA: Male PATIENT RELEVANT IMPLANT DATA REVIEWED: Not Applicable RADIOLOGY DEPARTMENT: General X-ray: Exam(s) Completed: Chest X-Ray PERIPHERAL IV DATA: Not applicable SIGNED BY: Nash Mcbride June 21, 2020 12:48 PM documented in this encounterTrinity Health [facility]01-26-2021 NoteHNO ID: [id number] Author: Nash Giron (Rt) Service: Radiology Author Type: [employer] Director Type: Progress Notes Filed: 04/19/2020 2:10 [...] Moya DATE: April 19, 2020 TIME: 2:09 [facility]01-07-2021 NoteHNO ID: [id number] Author: Regulo Stover Service: ? Author Type: Physician Type: Progress Notes Filed: 03/31/2020 9:37 AM Note Text: [facility] SECTION OF REGIONAL CARDIOLOGY [facility] Cardiology [place] ([facility] [address] [place] [id number] OUTPATIENT VISIT DATE 03/26/2020 PRIMARY CARE PHYSICIAN: Krishna Reynolds MD [address] [place] [address] CHIEF COMPLAINT: Patient with complex coronary artery disease referred for evaluation of possible high risk PCI HISTORY OF PRESENT ILLNESS: Mr. Moya is a 69 year old with extensive medical problems including morbid obesity, diabetes insulin requiring, chronic diastolic heart failure, chronic kidney disease and coronary artery disease who is referred for evaluation. Patient was sent to Dr. Gardner for consideration already bypass grafting. After extensive [...] including PCSK9 inhibitor. From OV with Dr Gardner 02/10/20 HPI: This is a 69 year [...] and occluded RCA with collateral filling via [id number] collaterals. 2D echo shows ejection fraction of [...] foot (HCC) (more content not included)...[facility]11-24-2020 NoteHNO ID: [id number] Author: Ryan ([employer] Hand) PATRICIA Akins Service: ? Author Type: Nurse Practitioner Type: Progress Notes Filed: 02/16/2020 9:52 AM Note Text: MULTI DISCIPLINARY HIGH RISK AVR CARDIAC TEAM Members present: Dr. Gardner, Dr. Renee, Dr. Allen, Dr. Stover, Dr. Elizabeth, Dr. Barclay, Jennifer Lee DELIVERY TECH, CAR CHECKER, Gretchen DELIVERY TECH, CAR CHECKER, Eileen Rueda DELIVERY TECH, CAR CHECKER. Presenting Physician: PATIENT NAME: Miguelangel Moya DATE: [...] for PCI eval and discussion. REFERRAL PLACED. Ryan Akins APRN.[facility]11-18-2020 NoteHNO ID: [id number] Author: Curt Gardner Service: ? Author Type: Physician Type: Progress [...] and occluded RCA with collateral filling via [id number] collaterals. 2D echo shows ejection fraction of [...] L heart - LEFT HEART CATH,PERCUTANEOUS 12/29/2019 [facility] - REMOVAL ADENOIDS,PRIMARY,<12 Y/O 1960 Adenoidectomy - REMOVAL OF TONSILS,<12 Y/O 1957 Tonsillectomy - TRANSCATH STENT INIT VESSEL,PERCUT Transcath stent init vessel percmiquel, DILIA - VASECTOMY 1977 FAMILY HISTORY Problem [...] antoine (more content not included)... [facility]11-18-2020 NoteHNO ID: [id number] Author: Ryan Silva Cnp) PATRICIA Akins Service: ? Author Type: Nurse Practitioner Type: Progress Notes Filed: 02/10/2020 5:46 PM Note Text: [facility] Adult Cardiac Surgery Database Version 4.20 RISK SCORES Procedure: Isolated CAB CALCULATE Risk of Mortality: 1.988% Renal Failure: 6.516% Permanent Stroke: 1.011% Prolonged Ventilation: 12.330% DSW Infection: 1.180% Reoperation: 2.029% Morbidity or Mortality: 19.300% Short Length of Stay: 21.858% Long Length of Stay: 13.101% Ryan Akins APRN.CNPNorthern Light Eastern [facility] Medical CenterEvaluation note* Diagnosis Type 2 diabetes mellitus with diabetic neuropathy, with long-term current use of insulin (HCC) documented in [facility]* Diagnosis Type 2 diabetes mellitus with diabetic neuropathy, with long-term current use of insulin (HCC) documented in this encounter [facility] noteNo assessment information availableWTwin [facility] Work Phone: Evaluation note* Diagnosis Coronary artery disease involving [place] coronary artery of [place]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 (HCC) documented in this encounter [facility] note* Diagnosis Type 2 diabetes mellitus with diabetic neuropathy, with long-term current use of insulin (HCC)- Primary Essential hypertension Unspecified essential hypertension Chronic diastolic congestive heart failure (HCC) Chronic diastolic heart failure Coronary artery disease of [place] artery of [place] heart with stable angina pectoris (HCC) Persistent atrial fibrillation (HCC) Atrial fibrillation Need for vaccination Need for prophylactic vaccination and inoculation against unspecified single disease documented in this encounter [facility] note* Diagnosis Essential hypertension Unspecified essential hypertension [facility] Corns and callosities- Primary DM (diabetes mellitus), type 2 with neurological complications (HCC) Type II or unspecified type diabetes mellitus with neurological manifestations, not stated as uncontrolled [facility] Diagnosis Coronary artery disease of [place] artery of [place] heart with stable angina pectoris (HCC)- Primary [...] ischemic heart disease [facility] Diagnosis Medicare annual wellness visit, subsequent- Primary Routine general medical examination at a [facility] Type 2 diabetes mellitus with diabetic neuropathy, with long-term current use of insulin (HCC) Balance problem Other symptoms involving nervous and musculoskeletal systems Gait abnormality Abnormality of gait Chronic diastolic congestive heart failure (HCC) Chronic diastolic heart failure [facility] Diagnosis Type 2 diabetes mellitus with diabetic neuropathy, with long-term current use of insulin (HCC)- Primary Other hyperlipidemia Essential hypertension Unspecified essential hypertension [facility] Diagnosis Type 2 diabetes mellitus with diabetic neuropathy, with long-term current use of insulin (HCC)- Primary [facility] Diagnosis Statin intolerance- Primary Other drug allergy Type 2 diabetes mellitus with diabetic neuropathy, with long-term current use of insulin (HCC) Chronic diastolic congestive heart failure (HCC) Chronic diastolic heart failure Essential hypertension Unspecified essential hypertension Coronary artery disease of [place] artery of [place] heart with stable angina pectoris (HCC) Other hyperlipidemia [facility] Diagnosis Coronary artery disease involving [place] heart without angina pectoris, unspecified vessel or lesion type [facility] Diagnosis Chronic diastolic congestive heart failure (HCC) Chronic diastolic heart failure ROBIN (dyspnea on exertion) Other dyspnea and respiratory abnormality [facility] Diagnosis Coronary artery disease of [place] artery of [place] heart with stable angina pectoris (HCC) [facility] Diagnosis Ulcer of right leg, limited to breakdown of skin ([facility])- Primary Venous (peripheral) insufficiency Unspecified venous (peripheral) insufficiency Chronic diastolic congestive heart failure (HCC) Chronic diastolic heart failure Type 2 diabetes mellitus with diabetic neuropathy, with long-term current use of insulin ([facility]) Need for COVID-19 vaccine Essential hypertension Unspecified essential hypertension [facility] Ulcer of right leg, limited to breakdown of skin ([facility])- Primary [facility] Diagnosis Corns and callosities- Primary DM (diabetes mellitus), type 2 with neurological complications ([facility]) Type II or unspecified type diabetes mellitus with neurological manifestations, not stated as uncontrolled [facility]* Diagnosis Onset Date Resolution Status Lower extremity edema acute Ulcer of right lower extremity acute Type 2 diabetes mellitus [facility] Work Phone: Evaluation note* Diagnosis Onset Date Resolution Status Lower extremity edema acute Ulcer of right lower extremity acute Type 2 diabetes mellitus [facility] Lower extremity edema acute Ulcer of right lower extremity acute Type 2 diabetes mellitus [facility] Work Phone: Evaluation note* Diagnosis Type 2 diabetes mellitus with diabetic neuropathy, with long-term current use of insulin ([facility]) [facility]* Diagnosis Type 2 diabetes mellitus with diabetic neuropathy, with long-term current use of insulin ([facility])- Primary Essential hypertension Unspecified essential hypertension Other hyperlipidemia Venous (peripheral) insufficiency Unspecified venous (peripheral) insufficiency Chronic diastolic congestive heart failure (HCC) Chronic diastolic heart failure Class 3 severe obesity due to excess calories with serious comorbidity and body mass index (BMI) of 45.0 to 49.9 in adult ([facility]) Screening for colon cancer Special screening for malignant neoplasms, colon Encounter for immunization Need for other specified prophylactic vaccination against single bacterial disease [facility]* Diagnosis Onset Date Resolution Status Lower extremity edema acute Ulcer of right lower extremity acute Type 2 diabetes mellitus [facility] Lower extremity edema acute Ulcer of right lower extremity acute Type 2 diabetes mellitus [facility] Lower extremity edema acute [facility] Work Phone: Evaluation note* Diagnosis Coronary artery disease of [place] artery of [place] heart with stable angina pectoris ([facility]) Other hyperlipidemia Statin intolerance Other drug allergy Atherosclerosis of aorta (HCC) Atherosclerosis of aorta [facility] Diagnosis Onset Date Resolution Status Lower extremity edema acute Ulcer of right lower extremity acute Type 2 diabetes mellitus chr onic Lower extremity edema acute Balance disorder acute Edema of right lower leg acu te History of coronary artery stent placement acute History of decompression of ulnar nerve acute History of tonsillectomy acu te JAMES (obstructive sleep apnea) acute Right leg swelling acute Tobacco abuse acute Tobacco abuse counseling acu te 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 [id number] acute Venous stasis ulcer of right lower leg with edema of right lower leg acute Atherosclerotic heart diseas e of [place] coronary artery without angina pectoris chronic CAD (coronary artery disease) chronic Chronic venous insufficiency chronic Essential hypertension chron ic GERD (gastroesophageal reflux disease) chronic HLD (hyperlipidemia) chronic 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[place] Morbid obesity due to excess calories chronic Paroxysmal atrial fibrillation chronic Presence of stent in coronary artery June, chronic Pure hypercholesterolemia ch ronic Type 2 diabetes mellitus chr onic [facility] Work Phone: Evaluation note* Diagnosis Onset Date Resolution Status Lower extremity edema acute Ulcer of right lower extremity acute Type 2 diabetes mellitus chr onic Lower extremity edema acute Balance disorder acute Edema of right lower leg acu te History of coronary artery stent placement acute History of decompression of ulnar nerve acute History of tonsillectomy acu te JAMES (obstructive sleep apnea) acute Right leg swelling acute Tobacco abuse acute Tobacco abuse counseling acu te 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 [id number] acute Venous stasis ulcer of right lower leg with edema of right lower leg acute Atherosclerotic heart diseas e of [place] coronary artery without angina pectoris chronic CAD (coronary artery disease) chronic Chronic venous insufficiency chronic Essential hypertension chron ic GERD (gastroesophageal reflux disease) chronic HLD (hyperlipidemia) chronic 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[place] Morbid obesity due to excess calories chronic Paroxysmal atrial fibrillation chronic Presence of stent in coronary artery June, chronic Pure hypercholesterolemia ch ronic Type 2 diabetes mellitus chr onic Balance disorder acute Edema of right lower leg acu te History of coronary artery stent placement acute History of decompression of ulnar nerve acute History of tonsillectomy acu te JAMES (obstructive sleep apnea) acute Right leg swelling acute Tobacco abuse acute Tobacco abuse counseling acu te 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 [id number] acute Venous stasis ulcer of right lower leg with edema of right lower leg acute Atherosclerotic heart diseas e of [place] coronary artery without angina pectoris chronic CAD (coronary artery disease) chronic Chronic venous insufficiency chronic Essential hypertension chron ic GERD (gastroesophageal reflux disease) chronic HLD (hyperlipidemia) chronic 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[place] Morbid obesity due to excess calories chronic Paroxysmal atrial fibrillation chronic Presence of stent in coronary artery June, chronic Pure hypercholesterolemia [facility] Type 2 diabetes mellitus [facility] Work Phone: Evaluation note* Diagnosis Type 2 diabetes mellitus with diabetic neuropathy, with long-term current use of insulin (HCC)- Primary Other hyperlipidemia [facility] Diagnosis Onset Date Resolution Status Lower extremity edema acute Balance disorder acute Edema of right lower leg acu te History of coronary artery stent placement acute History of decompression of ulnar nerve acute History of tonsillectomy acu te JAMES (obstructive sleep apnea) acute Right leg swelling acute Tobacco abuse acute Tobacco abuse counseling acu te 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 [id number] acute Venous stasis ulcer of right lower leg with edema of right lower leg acute Atherosclerotic heart diseas e of [place] coronary artery without angina pectoris chronic CAD (coronary artery disease) chronic Chronic venous insufficiency chronic Essential hypertension chron ic GERD (gastroesophageal reflux disease) chronic HLD (hyperlipidemia) chronic 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[place] Morbid obesity due to excess calories chronic Paroxysmal atrial fibrillation chronic Presence of stent in coronary artery June, chronic [facility] Type 2 diabetes mellitus [facility] Balance disorder acute Edema of right lower leg acu te History of coronary artery stent placement acute History of decompression of ulnar nerve acute History of tonsillectomy acu te JAMES (obstructive sleep apnea) acute Right leg swelling acute Tobacco abuse acute Tobacco abuse counseling acu te 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 [id number] acute Venous stasis ulcer of right lower leg with edema of right lower leg acute Atherosclerotic heart diseas e of [place] coronary artery without angina pectoris chronic CAD (coronary artery disease) chronic Chronic venous insufficiency chronic Essential hypertension chron ic GERD (gastroesophageal reflux disease) chronic HLD (hyperlipidemia) chronic 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[place] Morbid obesity due to excess calories chronic Paroxysmal atrial fibrillation chronic Presence of stent in coronary artery June, chronic Pure hypercholesterolemia [facility] Type 2 diabetes mellitus [facility] Work Phone: Evaluation note* Diagnosis Onset Date Resolution Status Balance disorder acute Edema of right lower leg acu te History of coronary artery stent placement acute History of decompression of ulnar nerve acute History of tonsillectomy acu te JAMES (obstructive sleep apnea) acute Right leg swelling acute Tobacco abuse acute Tobacco abuse counseling acu te 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 [id number] acute Venous stasis ulcer of right lower leg with edema of right lower leg acute Atherosclerotic heart diseas e of [place] coronary artery without angina pectoris chronic CAD (coronary artery disease) chronic Chronic venous insufficiency chronic Essential hypertension chron ic GERD (gastroesophageal reflux disease) chronic HLD (hyperlipidemia) chronic 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[place] Morbid obesity due to excess calories chronic Paroxysmal atrial fibrillation chronic Presence of stent in coronary artery June, chronic Pure hypercholesterolemia [facility] Type 2 diabetes mellitus chr on Balance disorder acute Edema of right lower leg acu te History of coronary artery stent placement acute History of decompression of ulnar nerve acute History of tonsillectomy acu te JAMES (obstructive sleep apnea) acute Right leg swelling acute Tobacco abuse acute Tobacco abuse counseling acu te 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 [id number] acute Venous stasis ulcer of right lower leg with edema of right lower leg acute Atherosclerotic heart diseas e of [place] coronary artery without angina pectoris chronic CAD (coronary artery disease) chronic Chronic venous insufficiency chronic Essential hypertension chron ic GERD (gastroesophageal reflux disease) chronic HLD (hyperlipidemia) chronic 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[place] Morbid obesity due to excess calories chronic Paroxysmal atrial fibrillation chronic Presence of stent in coronary artery June, chronic Pure hypercholesterolemia [facility] Type 2 diabetes mellitus [facility] Work Phone: Evaluation note* Diagnosis Medicare annual wellness visit, subsequent- Primary Routine general medical examination at a health care facility Coronary artery disease of [place] artery of [place] heart with stable angina pectoris (HCC) Other hyperlipidemia Statin intolerance Other drug allergy Atherosclerosis of aorta (HCC) Atherosclerosis of aorta Essential hypertension Unspecified essential hypertension Type 2 diabetes mellitus with diabetic neuropathy, with long-term current use of insulin (HCC) Chronic diastolic congestive heart failure (HCC) Chronic diastolic heart failure Persistent atrial fibrillation (HCC) Atrial fibrillation [facility] Diagnosis Coronary artery disease of [place] artery of [place] heart with stable angina pectoris (HCC) Chronic diastolic congestive heart failure (HCC) Chronic diastolic heart failure Essential hypertension Unspecified essential hypertension [facility] Diagnosis Type 2 diabetes mellitus with diabetic neuropathy, with long-term current use of insulin (HCC)- Primary [facility] Diagnosis Hydrocele, acquired- Primary Other hyperlipidemia [facility]* Diagnosis Hydrocele, acquired [facility] Diagnosis Onset Date Resolution Status Balance disorder acute Edema of right lower leg acu te History of coronary artery stent placement acute History of decompression of ulnar nerve acute History of tonsillectomy acu te JAMES (obstructive sleep apnea) acute Right leg swelling acute Tobacco abuse acute Tobacco abuse counseling acu te 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 [id number] acute Venous stasis ulcer of right lower leg with edema of right lower leg acute Atherosclerotic heart diseas e of [place] coronary artery without angina pectoris chronic CAD (coronary artery disease) chronic Chronic venous insufficiency chronic Essential hypertension chron ic GERD (gastroesophageal reflux disease) chronic HLD (hyperlipidemia) chronic 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[place] Morbid obesity due to excess calories chronic Paroxysmal atrial fibrillation chronic Presence of stent in coronary artery June, chronic [facility]mia [facility] Type [facility] mellitus chr [facility] Work Phone: Evaluation note* Diagnosis Hydrocele, acquired- Primary Testicular cyst Other specified disorder of male genital organs [facility] Diagnosis Elbow mass, right- Primary Essential hypertension Unspecified essential hypertension [facility] Diagnosis Right elbow pain- Primary Pain in joint, upper arm [facility] Diagnosis Right elbow pain Pain in joint, upper arm [facility] Diagnosis Elbow mass, right [facility] Diagnosis Type 2 diabetes mellitus with diabetic neuropathy, with long-term current use of insulin (HCC) Chronic diastolic congestive heart failure (HCC) Chronic diastolic heart failure Coronary artery disease of [place] artery of [place] heart with stable angina pectoris (HCC) Essential hypertension Unspecified essential hypertension Other hyperlipidemia Persistent atrial fibrillation (HCC) Atrial fibrillation Gastroesophageal reflux disease, unspecified whether esophagitis present Dyspnea on exertion Other dyspnea and respiratory abnormality Valvular heart disease Endocarditis, valve unspecified, unspecified cause Benign prostatic hyperplasia, unspecified whether lower urinary tract symptoms present Obesity, Class III, BMI 40-49.9 (morbid obesity) (HCC) Morbid obesity Coronary artery disease of [place] artery of [place] heart with stable angina pectoris ([facility])- Primary Chronic diastolic congestive heart failure (HCC) Chronic diastolic heart failure Persistent atrial fibrillation (HCC) Atrial fibrillation Essential hypertension Unspecified essential hypertension Other hyperlipidemia Class 3 severe obesity due to excess calories with serious comorbidity and body mass index (BMI) of 45.0 to 49.9 in adult ([facility]) Statin intolerance Other drug allergy Atherosclerosis of aorta ([facility]) Atherosclerosis of aorta documented in this encounter [facility] note* Diagnosis Type 2 diabetes mellitus with diabetic neuropathy, with long-term current use of insulin ([facility]) Chronic diastolic congestive heart failure (HCC) Chronic diastolic heart failure Coronary artery disease of [place] artery of [place] heart with stable angina pectoris ([facility]) Essential hypertension Unspecified essential hypertension Other hyperlipidemia Persistent atrial fibrillation (HCC) Atrial fibrillation Gastroesophageal reflux disease, unspecified whether esophagitis present Dyspnea on exertion Other dyspnea and respiratory abnormality Valvular heart disease Endocarditis, valve unspecified, unspecified cause Benign prostatic hyperplasia, unspecified whether lower urinary tract symptoms present Obesity, Class III, BMI 40-49.9 (morbid obesity) ([facility]) Morbid obesity Type 2 diabetes mellitus with diabetic neuropathy, with long-term current use of insulin ([facility]) documented in this encounter [facility] note* Diagnosis Type 2 diabetes mellitus with diabetic neuropathy, with long-term current use of insulin ([facility]) Chronic diastolic congestive heart failure (HCC) Chronic diastolic heart failure Coronary artery disease of [place] artery of [place] heart with stable angina pectoris ([facility]) Essential hypertension Unspecified essential hypertension Other hyperlipidemia Persistent atrial fibrillation (HCC) Atrial fibrillation Gastroesophageal reflux disease, unspecified whether esophagitis present Dyspnea on exertion Other dyspnea and respiratory abnormality Valvular heart disease Endocarditis, valve unspecified, unspecified cause Benign prostatic hyperplasia, unspecified whether lower urinary tract symptoms present Obesity, Class III, BMI 40-49.9 (morbid obesity) ([facility]) Morbid obesity DM (diabetes mellitus), type 2 with neurological complications ([facility])- Primary Type II or unspecified type diabetes mellitus with neurological manifestations, not stated as uncontrolled Corns and callosities documented in this encounter [facility] note* Diagnosis Type 2 diabetes mellitus with diabetic neuropathy, with long-term current use of insulin (HCC) Chronic diastolic congestive heart failure (HCC) Chronic diastolic heart failure Coronary artery disease of [place] artery of [place] heart with stable angina pectoris (HCC) Essential hypertension Unspecified essential hypertension Other hyperlipidemia Persistent atrial fibrillation (HCC) Atrial fibrillation Gastroesophageal reflux disease, unspecified whether esophagitis present Dyspnea on exertion Other dyspnea and respiratory abnormality Valvular heart disease Endocarditis, valve unspecified, unspecified cause Benign prostatic hyperplasia, unspecified whether lower urinary tract symptoms present Obesity, Class III, BMI 40-49.9 (morbid obesity) (HCC) Morbid obesity Type 2 diabetes mellitus with diabetic neuropathy, with long-term current use of insulin (HCC)- Primary Coronary artery disease involving [place] heart without angina pectoris, unspecified vessel or lesion type Chronic diastolic congestive heart failure (HCC) Chronic diastolic heart failure Essential hypertension Unspecified essential hypertension Screening for depression Encounter for screening examination for other mental health and behavioral disorders documented in this encounter [facility] note* Diagnosis Type 2 diabetes mellitus with diabetic neuropathy, with long-term current use of insulin (HCC) Chronic diastolic congestive heart failure (HCC) Chronic diastolic heart failure Coronary artery disease of [place] artery of [place] heart with stable angina pectoris (HCC) Essential hypertension Unspecified essential hypertension Other hyperlipidemia Persistent atrial fibrillation (HCC) Atrial fibrillation Gastroesophageal reflux disease, unspecified whether esophagitis present Dyspnea on exertion Other dyspnea and respiratory abnormality Valvular heart disease Endocarditis, valve unspecified, unspecified cause Benign prostatic hyperplasia, unspecified whether lower urinary tract symptoms present Obesity, Class III, BMI 40-49.9 (morbid obesity) (HCC) Morbid obesity Pain Generalized pain documented in this encounter [facility] note* Diagnosis Chronic diastolic congestive heart failure (HCC) Chronic diastolic heart failure Type 2 diabetes mellitus with diabetic neuropathy, with long-term current use of insulin (HCC) Chronic diastolic congestive heart failure (HCC) Chronic diastolic heart failure Coronary artery disease of [place] artery of [place] heart with stable angina pectoris (HCC) Essential hypertension Unspecified essential hypertension Other hyperlipidemia Persistent atrial fibrillation (HCC) Atrial fibrillation Gastroesophageal reflux disease, unspecified whether esophagitis present Dyspnea on exertion Other dyspnea and respiratory abnormality Valvular heart disease Endocarditis, valve unspecified, unspecified cause Benign prostatic hyperplasia, unspecified whether lower urinary tract symptoms present Obesity, Class III, BMI 40-49.9 (morbid obesity) (HCC) Morbid obesity [facility]* Diagnosis Type 2 diabetes mellitus with diabetic neuropathy, with long-term current use of insulin (HCC) Chronic diastolic congestive heart failure (HCC) Chronic diastolic heart failure Coronary artery disease of [place] artery of [place] heart with stable angina pectoris (HCC) Essential hypertension Unspecified essential hypertension Other hyperlipidemia Persistent atrial fibrillation (HCC) Atrial fibrillation Gastroesophageal reflux disease, unspecified whether esophagitis present Dyspnea on exertion Other dyspnea and respiratory abnormality Valvular heart disease Endocarditis, valve unspecified, unspecified cause Benign prostatic hyperplasia, unspecified whether lower urinary tract symptoms present Obesity, Class III, BMI 40-49.9 (morbid obesity) (HCC) Morbid obesity Type 2 diabetes mellitus with diabetic neuropathy, with long-term current use of insulin ([facility])- Primary documented in this encounter [facility] note* Diagnosis Type 2 diabetes mellitus with diabetic neuropathy, with long-term current use of insulin ([facility]) Chronic diastolic congestive heart failure (HCC) Chronic diastolic heart failure Coronary artery disease of [place] artery of [place] heart with stable angina pectoris (HCC) Essential hypertension Unspecified essential hypertension Other hyperlipidemia Persistent atrial fibrillation (HCC) Atrial fibrillation Gastroesophageal reflux disease, unspecified whether esophagitis present Dyspnea on exertion Other dyspnea and respiratory abnormality Valvular heart disease Endocarditis, valve unspecified, unspecified cause Benign prostatic hyperplasia, unspecified whether lower urinary tract symptoms present Obesity, Class III, BMI 40-49.9 (morbid obesity) ([facility]) Morbid obesity Type 2 diabetes mellitus with diabetic neuropathy, with long-term current use of insulin ([facility]) documented in this encounter [facility] note* Diagnosis Type 2 diabetes mellitus with diabetic neuropathy, with long-term current use of insulin ([facility]) Chronic diastolic congestive heart failure (HCC) Chronic diastolic heart failure Coronary artery disease of [place] artery of [place] heart with stable angina pectoris (HCC) Essential hypertension Unspecified essential hypertension Other hyperlipidemia Persistent atrial fibrillation (HCC) Atrial fibrillation Gastroesophageal reflux disease, unspecified whether esophagitis present Dyspnea on exertion Other dyspnea and respiratory abnormality Valvular heart disease Endocarditis, valve unspecified, unspecified cause Benign prostatic hyperplasia, unspecified whether lower urinary tract symptoms present Obesity, Class III, BMI 40-49.9 (morbid obesity) (HCC) Morbid obesity Chronic diastolic congestive heart failure (HCC) Chronic diastolic heart failure Essential hypertension Unspecified essential hypertension Coronary artery disease of [place] artery of [place] heart with stable angina pectoris ([facility]) [facility] Diagnosis Type 2 diabetes mellitus with diabetic neuropathy, with long-term current use of insulin (HCC) Chronic diastolic congestive heart failure (HCC) Chronic diastolic heart failure Coronary artery disease of [place] artery of [place] heart with stable angina pectoris (HCC) Essential hypertension Unspecified essential hypertension Other hyperlipidemia Persistent atrial fibrillation (HCC) Atrial fibrillation Gastroesophageal reflux disease, unspecified whether esophagitis present Dyspnea on exertion Other dyspnea and respiratory abnormality Valvular heart disease Endocarditis, valve unspecified, unspecified cause Benign prostatic hyperplasia, unspecified whether lower urinary tract symptoms present Obesity, Class III, BMI 40-49.9 (morbid obesity) ([facility]) Morbid obesity DM (diabetes mellitus), type 2 with neurological complications ([facility])- Primary Type II or unspecified type diabetes mellitus with neurological manifestations, not stated as uncontrolled Corns and callosities documented in this encounter [facility] note* Diagnosis Type 2 diabetes mellitus with diabetic neuropathy, with long-term current use of insulin ([facility]) Chronic diastolic congestive heart failure (HCC) Chronic diastolic heart failure Coronary artery disease of [place] artery of [place] heart with stable angina pectoris (HCC) Essential hypertension Unspecified essential hypertension Other hyperlipidemia Persistent atrial fibrillation (HCC) Atrial fibrillation Gastroesophageal reflux disease, unspecified whether esophagitis present Dyspnea on exertion Other dyspnea and respiratory abnormality Valvular heart disease Endocarditis, valve unspecified, unspecified cause Benign prostatic hyperplasia, unspecified whether lower urinary tract symptoms present Obesity, Class III, BMI 40-49.9 (morbid obesity) ([facility]) Morbid obesity Medicare annual wellness visit, subsequent- Primary Routine general medical examination at a health care facility Encounter for immunization Need for other specified prophylactic vaccination against single bacterial disease Chronic diastolic congestive heart failure (HCC) Chronic diastolic heart failure Atrial fibrillation, unspecified type ([facility]) Class 3 severe obesity due to excess calories with serious comorbidity and body mass index (BMI) of 45.0 to 49.9 in adult ([facility]) Type 2 diabetes mellitus with diabetic neuropathy, with long-term current use of insulin ([facility]) Essential hypertension Unspecified essential hypertension Coronary artery disease of [place] artery of [place] heart with stable angina pectoris (HCC) Persistent atrial fibrillation (HCC) Atrial fibrillation Venous (peripheral) insufficiency Unspecified venous (peripheral) insufficiency Other hyperlipidemia documented in this encounter [facility] note* Diagnosis Type 2 diabetes mellitus with diabetic neuropathy, with long-term current use of insulin ([facility]) Chronic diastolic congestive heart failure (HCC) Chronic diastolic heart failure Coronary artery disease of [place] artery of [place] heart with stable angina pectoris Essential hypertension Unspecified essential hypertension Other hyperlipidemia Persistent atrial fibrillation (HCC) Atrial fibrillation Gastroesophageal reflux disease, unspecified whether esophagitis present Dyspnea on exertion Other dyspnea and respiratory abnormality Valvular heart disease Endocarditis, valve unspecified, unspecified cause Benign prostatic hyperplasia, unspecified whether lower urinary tract symptoms present Obesity, Class III, BMI 40-49.9 (morbid obesity) Morbid obesity Coronary artery disease of [place] artery of [place] heart with stable angina pectoris- Primary Chronic diastolic congestive heart failure (HCC) Chronic diastolic heart failure Atherosclerosis of aorta Persistent atrial fibrillation (HCC) Atrial fibrillation Essential hypertension Unspecified essential hypertension Other hyperlipidemia Statin intolerance Other drug allergy ROBIN (dyspnea on exertion) Other dyspnea and respiratory abnormality [facility] Diagnosis Type 2 diabetes mellitus with diabetic neuropathy, with long-term current use of insulin ([facility]) Chronic diastolic congestive heart failure (HCC) Chronic diastolic heart failure Coronary artery disease of [place] artery of [place] heart with stable angina pectoris Essential hypertension Unspecified essential hypertension Other hyperlipidemia Persistent atrial fibrillation (HCC) Atrial fibrillation Gastroesophageal reflux disease, unspecified whether esophagitis present Dyspnea on exertion Other dyspnea and respiratory abnormality Valvular heart disease Endocarditis, valve unspecified, unspecified cause Benign prostatic hyperplasia, unspecified whether lower urinary tract symptoms present Obesity, Class III, BMI 40-49.9 (morbid obesity) Morbid obesity Essential hypertension Unspecified essential hypertension [facility] Diagnosis Type 2 diabetes mellitus with diabetic neuropathy, with long-term current use of insulin ([facility]) Chronic diastolic congestive heart failure (HCC) Chronic diastolic heart failure Coronary artery disease of [place] artery of [place] heart with stable angina pectoris Essential hypertension Unspecified essential hypertension Other hyperlipidemia Persistent atrial fibrillation (HCC) Atrial fibrillation Gastroesophageal reflux disease, unspecified whether esophagitis present Dyspnea on exertion Other dyspnea and respiratory abnormality Valvular heart disease Endocarditis, valve unspecified, unspecified cause Benign prostatic hyperplasia, unspecified whether lower urinary tract symptoms present Obesity, Class III, BMI 40-49.9 (morbid obesity) (HCC) Morbid obesity Coronary artery disease of [place] artery of [place] heart with stable angina pectoris ROBIN (dyspnea on exertion) Other dyspnea and respiratory abnormality [facility] Diagnosis Type 2 diabetes mellitus with diabetic neuropathy, with long-term current use of insulin ([facility]) Chronic diastolic congestive heart failure (HCC) Chronic diastolic heart failure Coronary artery disease of [place] artery of [place] heart with stable angina pectoris Essential hypertension Unspecified essential hypertension Other hyperlipidemia Persistent atrial fibrillation (HCC) Atrial fibrillation Gastroesophageal reflux disease, unspecified whether esophagitis present Dyspnea on exertion Other dyspnea and respiratory abnormality Valvular heart disease Endocarditis, valve unspecified, unspecified cause Benign prostatic hyperplasia, unspecified whether lower urinary tract symptoms present Obesity, Class III, BMI 40-49.9 (morbid obesity) (HCC) Morbid obesity Coronary artery disease of [place] artery of [place] heart with stable angina pectoris ROBIN (dyspnea on exertion) Other dyspnea and respiratory abnormality [facility] this [facility] Diagnosis Type 2 diabetes mellitus with diabetic neuropathy, with long-term current use of insulin (HCC) Chronic diastolic congestive heart failure (HCC) Chronic diastolic heart failure Coronary artery disease of [place] artery of [place] heart with stable angina pectoris Essential hypertension Unspecified essential hypertension Other hyperlipidemia Persistent atrial fibrillation (HCC) Atrial fibrillation Gastroesophageal reflux disease, unspecified whether esophagitis present Dyspnea on exertion Other dyspnea and respiratory abnormality Valvular heart disease Endocarditis, valve unspecified, unspecified cause Benign prostatic hyperplasia, unspecified whether lower urinary tract symptoms present Obesity, Class III, BMI 40-49.9 (morbid obesity) (HCC) Morbid obesity Type 2 diabetes mellitus with diabetic neuropathy, with long-term current use of insulin (HCC) documented [facility]* Diagnosis Type 2 diabetes mellitus with diabetic neuropathy, with long-term current use of insulin (HCC) Chronic diastolic congestive heart failure (HCC) Chronic diastolic heart failure Coronary artery disease of [place] artery of [place] heart with stable angina pectoris Essential hypertension Unspecified essential hypertension Other hyperlipidemia Persistent atrial fibrillation (HCC) Atrial fibrillation Gastroesophageal reflux disease, unspecified whether esophagitis present Dyspnea on exertion Other dyspnea and respiratory abnormality Valvular heart disease Endocarditis, valve unspecified, unspecified cause Benign prostatic hyperplasia, unspecified whether lower urinary tract symptoms present Obesity, Class III, BMI 40-49.9 (morbid obesity) (HCC) Morbid obesity DM (diabetes mellitus), type 2 with neurological complications (HCC)- Primary Type II or unspecified type diabetes mellitus with neurological manifestations, not stated as uncontrolled [place] or callus Corns and callosities documented in this encounter [facility] for referral (narrative)* Outpatient Procedure (Routine) - Closed Specialty Diagnoses / Procedures Referred By Contac t Referred To [facility] Diagnoses Screening for ischemic heart disease Procedures ECG COMPLETE ECG ROUTINE ECG W/LEAST 12 LDS W/I&R Regulo Stover MD [address] [place] [address] [facility] [place] [id number] Referral ID Status Reason Start Date Expiration Date V isits Requested Visits Authorized [id number] Closed Auto-Generate d Referral 01/09/2022 01/09/[address] [facility] for referral (narrative)* Diagnostic Procedure Only (Routine) - Authorized Specialty Diagnoses / Procedures Referred By Contac t Referred To Contact US IMAGING Diagnoses Hydrocele, acquired Procedures US SCROTUM AND CONTENTS US SCROTUM & CONTENTS Krishna Reynolds MD [address] [place] [id number] Us Imaging [id number] Referral ID Status Reason Start Date Expiration Date Visits Requested Visits Authorized [id number] Authorized Auto-Generat ed Referral 07/04/2023 08/02/[address] [facility] for referral (narrative)* Diagnostic Procedure Only (Routine) - Pending Review Specialty Diagnoses / Procedures Referred By Contac t Referred To Contact XR IMAGING Diagnoses Right elbow pain Procedures XR ELBOW GENERAL 2V AP/LAT RIGHT RADEX ELBOW 2 VIEWS Kaila Jimenez PA-C [address] [place] [address] Xr Imaging [id number] Referral ID Status Reason Start Date Expiration Date Visits Requested Visits Authorized [id number] Pending Review Auto-Generat ed Referral 09/11/2023 10/10/[address] [facility] for referral (narrative)No reason for referral [facility] Work Phone: Reason for visit Narrative* Outpatient Procedure (Routine) - Closed Specialty Diagnoses / Procedures Referred By Contac t Referred To [facility] Diagnoses Chronic diastolic congestive heart failure (HCC) ROBIN (dyspnea on exertion) Procedures ECHO ECHO TTHRC R-T 2D W/WOM-MODE COMPL SPEC&COLR D Regulo Stover MD [address] [place] [address] [facility] [place] [address] [place] [address] Referral ID Status Reason Start Date Expiration Date V isits Requested Visits Authorized [id number] Closed Auto-Generate d Referral 08/13/2022 08/13/[address] [facility] for visit Narrative* Diagnostic Procedure Only (Routine) - Closed Specialty Diagnoses / Procedures Referred By Aranza t Referred To Contact XR IMAGING Diagnoses Right elbow pain Procedures XR ELBOW GENERAL 2V AP/LAT RIGHT RADEX ELBOW 2 VIEWS Kaila Jimenez PA-C [address] [place] [address] Xr Imaging [place] [id number] Referral ID Status Reason Start Date Expiration Date V isits Requested Visits Authorized [id number] Closed Auto-Generate d Referral 09/11/2023 10/10/[address] [facility] for visit Narrative* Diagnostic Procedure Only (Routine) - Closed Specialty Diagnoses / Procedures Referred By Aranza escobar Referred To Contact [facility] Diagnoses Coronary artery disease of [place] artery of [place] heart with stable angina pectoris ROBIN (dyspnea on exertion) Procedures NM CARDIAC PERF STRESS/PHARM MYOCARDIAL SPECT MULTIPLE STUDIES Regulo Stover MD [address] [facility] [address] [place] [address] Phone: tel: fax: Molecular Imaging [address] [place] [address] Phone: tel: Referral ID Status Reason Start Date Expiration Date V isits Requested Visits Authorized [id number] Closed Auto-Generate d Referral 08/10/2024 09/09/2025 1 1 [facility] Summary Purpose Family History No Family History Records Found Relationship Condition Age at Onset Recorded Date/T tyra Not Specified Family history of ce rebrovascular accident (CVA) Unknown Family history of hypertension Unknown Family history of hyperlipidemia Unknown Advance Directives No Advanced Directives Records FoundDocuments on File Type Date Recorded 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 Advance Directive(s) 2020 2:35 PM Advance Directive(s) 04/19/2020 11:53 AM Advance Directive(s) 06/04/2013 2:29 PM Advance Directive Response Recorded Date/ Time Advance Directives Yes December 29, 2019 7:19am Living Will Yes August 04, 2020 1 0:33am Power of Park Worker Yes August 04, 2020 10:33am Documents on File Type Date Recorded 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 Yes August 04, 2020 10:33am Living Will Yes February 22 1:23am Do you have a Healthcare Power of Park Worker? Yes February 23, 2024 1:23am Advance Directives Yes December 29, 2019 7:19am Advance Directive Response Recorded Date/ Time Living Will Yes February 22 1:23am Do you have a Healthcare Power of Park Worker? Yes February 23, 2024 1:23am Advance Directives Yes December 29, 2019 7:19am Advance Directive Response Recorded Date/ Time Advance Directives Yes December 29, 2019 7:19am Chief Complaint and Reason for Visit Chief Complaint 2021- PHASE III MA INTENANCE SELF-PAY PHASE III MAINTENANCE SELF-PAY PHASE III MAINTENANCE SELF-PAY PHASE III MAINTENANCE SELF-PAY Chief Complaint PHASE III MA INTENANCE SELF-PAY PHASE III MAINTENANCE SELF-PAY PHASE III MAINTENANCE SELF-PAY PHASE III MAINTENANCE SELF-PAY PHASE III MAINTENANCE SELF-PAY Chief Complaint PHASE III MA INTENANCE SELF-PAY PHASE III MAINTENANCE SELF-PAY 2022 PH III Maintenance - Self Pay 2022 PH III Maintenance - Self Pay Chief Complaint 2021-CR PHASE III MA INTENANCE SELF-PAY CR PHASE III MAINTENANCE SELF-PAY 2022 PH III Maintenance - Self Pay 2022 PH III Maintenance - Self Pay copy results to Radha Arteaga 2022 PH III Maintenance - Self Pay Chief Complaint PHASE III MA INTENANCE SELF-PAY 2022 PH III Maintenance - Self Pay 2022 PH III Maintenance - Self Pay copy results to Radha Arteaga 2022 PH III Maintenance - Self Pay Chief Complaint 2022 PH III Maintena nce - Self Pay copy results to Radha Arteaga 2022 PH III Maintenance - Self Pay 2022 PH III Maintenance - Self Pay renal funchion 2022 PH III Maintenance - Self Pay Chief Complaint 2022 PH III Maintena nce - Self Pay copy results to Radha Arteaga 2022 PH III Maintenance - Self Pay 2022 PH III Maintenance - Self Pay renal funchion 2022 PH III Maintenance - Self Pay 2022 PH III Maintenance - Self Pay Chief Complaint copy results to Radha Arteaga 2022 PH III Maintenance - Self Pay 2022 PH III Maintenance - Self Pay renal funchion 2022 PH III Maintenance - Self Pay 2022 PH III Maintenance - Self Pay Chief Complaint 2022 PH III Maintena nce - Self Pay renal funchion 2022 PH III Maintenance - Self Pay 2022 PH III Maintenance - Self Pay 2022 PH III Maintenance - Self Pay Chief Complaint renal funchion 2022 PH III Maintenance - Self Pay 2022 PH III Maintenance - Self Pay 2022 PH III Maintenance - Self Pay wound wound 2022 PH III Maintenance - Self Pay wound Reason for Visit Lower extremity shanon a Ulcer of right lower extremity Type 2 diabetes mellitus Chief Complaint renal funchion 2022 PH III Maintenance - Self Pay 2022 PH III Maintenance - Self Pay 2022 PH III Maintenance - Self Pay wound wound 2022 PH III Maintenance - Self Pay wound wound wound wound 2022 PH III Maintenance - Self Pay Reason for Visit Lower extremity shanon a Ulcer of right lower extremity Type 2 diabetes mellitus Lower extremity edema Ulcer of right lower extremity Type 2 diabetes mellitus Chief Complaint 2022 PH III Maintena nce - Self Pay 2022 PH III Maintenance - Self Pay wound wound 2022 PH III Maintenance - Self Pay wound wound wound wound 2022 PH III Maintenance - Self Pay Reason for Visit Lower extremity shanon a Ulcer of right lower extremity Type 2 diabetes mellitus Lower extremity edema Ulcer of right lower extremity Type 2 diabetes mellitus Chief Complaint 2022 PH III Maintena nce - Self Pay wound wound 2022 PH III Maintenance - Self Pay wound wound wound wound 2022 PH III Maintenance - Self Pay 2022 PH III Maintenance - Self Pay Reason for Visit Lower extremity shanon a Ulcer of right lower extremity Type 2 diabetes mellitus Lower extremity edema Ulcer of right lower extremity Type 2 diabetes mellitus Chief Complaint wound wound 2022 PH III Maintenance - Self Pay wound wound wound wound 2022 PH III Maintenance - Self Pay 2022 PH III Maintenance - Self Pay 2 M FU-EDEMA, VENOUS INSUFFICIENCY CKD STAGE 3, COPY ALL PROVIDERS 2022 PH III Maintenance - Self Pay Reason for Visit Lower extremity shanon a Ulcer of right lower extremity Type 2 diabetes mellitus Lower extremity edema Ulcer of right lower extremity Type 2 diabetes mellitus Lower extremity edema Chief Complaint wound wound 2022 PH III Maintenance - Self Pay 2022 PH III Maintenance - Self Pay 2 M FU-EDEMA, VENOUS INSUFFICIENCY CKD STAGE 3, COPY ALL PROVIDERS 2022 PH III Maintenance - Self Pay wound 2022 PH III Maintenance - Self Pay Reason for Visit Lower extremity shanon a Ulcer of right lower extremity Type 2 diabetes mellitus Lower extremity edema Balance disorder Edema of right lower leg History of coronary artery stent placement History of decompression of ulnar nerve History of tonsillectomy JAMES (obstructive sleep apnea) Right leg swelling Tobacco abuse Tobacco abuse counseling Varicose veins of both lower extremities with inflammation [id number] Venous stasis ulcer of right lower leg with edema of right lower leg Atherosclerotic heart disease of [place] coronary artery without angina pectoris CAD (coronary artery disease) Chronic venous insufficiency Essential hypertension GERD (gastroesophageal reflux disease) HLD (hyperlipidemia) Left atrial enlargement Morbid obesity due to excess calories Paroxysmal atrial fibrillation Presence of stent in coronary artery Pure hypercholesterolemia Type 2 diabetes mellitus Chief Complaint wound wound 2022 PH III Maintenance - Self Pay 2022 PH III Maintenance - Self Pay 2 M FU-EDEMA, VENOUS INSUFFICIENCY CKD STAGE 3, COPY ALL PROVIDERS 2022 PH III Maintenance - Self Pay wound 2022 PH III Maintenance - Self Pay 2023 PH3 MAINTENANCE SELF PAY wound Reason for Visit Lower extremity shanon a Ulcer of right lower extremity Type 2 diabetes mellitus Lower extremity edema Balance disorder Edema of right lower leg History of coronary artery stent placement History of decompression of ulnar nerve History of tonsillectomy JAMES (obstructive sleep apnea) Right leg swelling Tobacco abuse Tobacco abuse counseling Varicose veins of both lower extremities with inflammation [id number] Venous stasis ulcer of right lower leg with edema of right lower leg Atherosclerotic heart disease of [place] coronary artery without angina pectoris CAD (coronary artery disease) Chronic venous insufficiency Essential hypertension GERD (gastroesophageal reflux disease) HLD (hyperlipidemia) Left atrial enlargement Morbid obesity due to excess calories Paroxysmal atrial fibrillation Presence of stent in coronary artery Pure hypercholesterolemia Type 2 diabetes mellitus Balance disorder Edema of right lower leg History of coronary artery stent placement History of decompression of ulnar nerve History of tonsillectomy JAMES (obstructive sleep apnea) Right leg swelling Tobacco abuse Tobacco abuse counseling Varicose veins of both lower extremities with inflammation [id number] Venous stasis ulcer of right lower leg with edema of right lower leg Atherosclerotic heart disease of [place] coronary artery without angina pectoris CAD (coronary artery disease) Chronic venous insufficiency Essential hypertension GERD (gastroesophageal reflux disease) HLD (hyperlipidemia) Left atrial enlargement Morbid obesity due to excess calories Paroxysmal atrial fibrillation Presence of stent in coronary artery Pure hypercholesterolemia Type 2 diabetes mellitus Chief Complaint 2 M FU-EDEMA, VENOUS INSUFFICIENCY CKD STAGE 3, COPY ALL PROVIDERS 2022 PH III Maintenance - Self Pay wound 2022 PH III Maintenance - Self Pay wound 2023 PH3 MAINTENANCE SELF PAY 2023 PH3 MAINTENANCE SELF PAY Reason for Visit Lower extremity shanon a Balance disorder Edema of right lower leg History of coronary artery stent placement History of decompression of ulnar nerve History of tonsillectomy JAMES (obstructive sleep apnea) Right leg swelling Tobacco abuse Tobacco abuse counseling Varicose veins of both lower extremities with inflammation [id number] Venous stasis ulcer of right lower leg with edema of right lower leg Atherosclerotic heart disease of [place] coronary artery without angina pectoris CAD (coronary artery disease) Chronic venous insufficiency Essential hypertension GERD (gastroesophageal reflux disease) HLD (hyperlipidemia) Left atrial enlargement Morbid obesity due to excess calories Paroxysmal atrial fibrillation Presence of stent in coronary artery Pure hypercholesterolemia Type 2 diabetes mellitus Balance disorder Edema of right lower leg History of coronary artery stent placement History of decompression of ulnar nerve History of tonsillectomy JAMES (obstructive sleep apnea) Right leg swelling Tobacco abuse Tobacco abuse counseling Varicose veins of both lower extremities with inflammation [id number] Venous stasis ulcer of right lower leg with edema of right lower leg Atherosclerotic heart disease of [place] coronary artery without angina pectoris CAD (coronary artery disease) Chronic venous insufficiency Essential hypertension GERD (gastroesophageal reflux disease) HLD (hyperlipidemia) Left atrial enlargement Morbid obesity due to excess calories Paroxysmal atrial fibrillation Presence of stent in coronary artery Pure hypercholesterolemia Type 2 diabetes mellitus Chief Complaint CKD STAGE 3, COPY AL L PROVIDERS 2022 PH III Maintenance - Self Pay wound 2022 PH III Maintenance - Self Pay wound 2023 PH3 MAINTENANCE SELF PAY 2023 PH3 MAINTENANCE SELF PAY 2023 PH3 MAINTENANCE SELF PAY Reason for Visit Balance disorder Edema of right lower leg History of coronary artery stent placement History of decompression of ulnar nerve History of tonsillectomy JAMES (obstructive sleep apnea) Right leg swelling Tobacco abuse Tobacco abuse counseling Varicose veins of both lower extremities with inflammation [id number] Venous stasis ulcer of right lower leg with edema of right lower leg Atherosclerotic heart disease of [place] coronary artery without angina pectoris CAD (coronary artery disease) Chronic venous insufficiency Essential hypertension GERD (gastroesophageal reflux disease) HLD (hyperlipidemia) Left atrial enlargement Morbid obesity due to excess calories Paroxysmal atrial fibrillation Presence of stent in coronary artery Pure hypercholesterolemia Type 2 diabetes mellitus Balance disorder Edema of right lower leg History of coronary artery stent placement History of decompression of ulnar nerve History of tonsillectomy JAMES (obstructive sleep apnea) Right leg swelling Tobacco abuse Tobacco abuse counseling Varicose veins of both lower extremities with inflammation [id number] Venous stasis ulcer of right lower leg with edema of right lower leg Atherosclerotic heart disease of [place] coronary artery without angina pectoris CAD (coronary artery disease) Chronic venous insufficiency Essential hypertension GERD (gastroesophageal reflux disease) HLD (hyperlipidemia) Left atrial enlargement Morbid obesity due to excess calories Paroxysmal atrial fibrillation Presence of stent in coronary artery Pure hypercholesterolemia Type 2 diabetes mellitus Chief Complaint wound 2022 PH III Maintenance - Self Pay wound 2023 PH3 MAINTENANCE SELF PAY 2023 PH3 MAINTENANCE SELF PAY 2023 PH3 MAINTENANCE SELF PAY Reason for Visit Balance disorder Edema of right lower leg History of coronary artery stent placement History of decompression of ulnar nerve History of tonsillectomy JAMES (obstructive sleep apnea) Right leg swelling Tobacco abuse Tobacco abuse counseling Varicose veins of both lower extremities with inflammation [id number] Venous stasis ulcer of right lower leg with edema of right lower leg Atherosclerotic heart disease of [place] coronary artery without angina pectoris CAD (coronary artery disease) Chronic venous insufficiency Essential hypertension GERD (gastroesophageal reflux disease) HLD (hyperlipidemia) Left atrial enlargement Morbid obesity due to excess calories Paroxysmal atrial fibrillation Presence of stent in coronary artery Pure hypercholesterolemia Type 2 diabetes mellitus Balance disorder Edema of right lower leg History of coronary artery stent placement History of decompression of ulnar nerve History of tonsillectomy JAMES (obstructive sleep apnea) Right leg swelling Tobacco abuse Tobacco abuse counseling Varicose veins of both lower extremities with inflammation [id number] Venous stasis ulcer of right lower leg with edema of right lower leg Atherosclerotic heart disease of [place] coronary artery without angina pectoris CAD (coronary artery disease) Chronic venous insufficiency Essential hypertension GERD (gastroesophageal reflux disease) HLD (hyperlipidemia) Left atrial enlargement Morbid obesity due to excess calories Paroxysmal atrial fibrillation Presence of stent in coronary artery Pure hypercholesterolemia Type 2 diabetes mellitus Chief Complaint wound 2023 PH3 MAINTENANCE SELF PAY 2023 PH3 MAINTENANCE SELF PAY 2023 PH3 MAINTENANCE SELF PAY 2023 PH3 MAINTENANCE SELF PAY Reason for Visit Balance disorder Edema of right lower leg History of coronary artery stent placement History of decompression of ulnar nerve History of tonsillectomy JAMES (obstructive sleep apnea) Right leg swelling Tobacco abuse Tobacco abuse counseling Varicose veins of both lower extremities with inflammation [id number] Venous stasis ulcer of right lower leg with edema of right lower leg Atherosclerotic heart disease of [place] coronary artery without angina pectoris CAD (coronary artery disease) Chronic venous insufficiency Essential hypertension GERD (gastroesophageal reflux disease) HLD (hyperlipidemia) Left atrial enlargement Morbid obesity due to excess calories Paroxysmal atrial fibrillation Presence of stent in coronary artery Pure hypercholesterolemia Type 2 diabetes mellitus Chief Complaint Admit Date 2023 PH3 MAINTENANCE SELF PAY January 242023 8:00am 2023 PH3 MAINTENANCE SELF PAY February 242023 8:00am 2024 PH3 maintenance-self pay April 232024 8:00am 2024 PH3 maintenance-self pay April 262024 8:00am 2024 PH3 maintenance-self pay May 8:00am Chief Complaint Admit Date 2023 PH3 MAINTENANCE SELF PAY February 242023 8:00am 2024 PH3 maintenance-self pay April 232024 8:00am 2024 PH3 maintenance-self pay April 262024 8:00am 2024 PH3 maintenance-self pay May 8:00am Chief Complaint Admit Date 2024 PH3 maintenance-self pay April 232024 8:00am 2024 PH3 maintenance-self pay April 262024 8:00am 2024 PH3 maintenance-self pay May 8:00am 2024 PH3 maintenance-self pay June 8:00am 2024 PH3 maintenance-self pay August 18, 2024 8:00am Chief Complaint Admit Date 2024 PH3 maintenance-self pay April 262024 8:00am 2024 PH3 maintenance-self pay May 8:00am 2024 PH3 maintenance-self pay June 8:00am 2024 PH3 maintenance-self pay August 20, 2024 8:00am Chief Complaint Admit Date 2024 PH3 maintenance-self pay May 8:00am 2024 PH3 maintenance-self pay June 8:00am 2024 PH3 maintenance-self pay August 20, 2024 8:00am 2024 PH3 maintenance-self pay September 17, 2024 8:00am Chief Complaint Admit Date 2024 PH3 maintenance-self pay June 8:00am 2024 PH3 maintenance-self pay August 20, 2024 8:00am 2024 PH3 maintenance-self pay September 17, 2024 8:00am 2024 PH3 maintenance-self pay October 22, 2024 8:00am Chief Complaint Admit Date 2024 PH3 maintenance-self pay August 20, 2024 8:00am 2024 PH3 maintenance-self pay September 17, 2024 8:00am 2024 PH3 maintenance-self pay October 22, 2024 8:00am 2024 PH3 maintenance-self pay October 8:00am Reason for Referral Specialty Diagnoses / Procedures Referred By Aranza escobar Referred To Contact [facility] Diagnoses Balance problem Gait abnormality Procedures CONSULT TO PHYSICAL THERAPY PHYSICAL THERAPY EVALUATION HIGH COMPLEX 45 MINS 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, 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, 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 [address] [place] [address] [facility] [place] [address] [place] [address] Referral ID Status Reason Start Date Expiration Date Visits Requested Visits Authorized [id number] Authorized PCP Requested Referral Auto-Generate d Referral 01/26/2022 01/26/2023 99 99 Specialty Diagnoses / Procedures Referred By Contac t Referred To Contact Diagnoses Type 2 diabetes mellitus with diabetic neuropathy, with long-term current use of insulin (HCC) Procedures CONSULT TO DIABETES EDUCATION OFFICE/OUTPATIENT [facility] 60-74 MINUTES Leila Russell APRN.CNP [address] [place] [address] Referral ID Status Reason Start Date Expiration Date Visits Requested Visits Authorized [id number] Authorized PCP Requested Referral 01/26/2022 01/26/2023 1 1 Specialty Diagnoses / Procedures Referred By Contac t Referred To Contact Urology Diagnoses Hydrocele, acquired Testicular cyst Procedures CONSULT TO UROLOGY Krishna Reynolds MD [address] [place] [address] Referral ID Status Reason Start Date Expiration Date Visits Requested Visits Authorized [id number] Ref Not Required PCP Requested Referral 07/26/2023 07/25/2024 1 1 Specialty Diagnoses / Procedures Referred By Contac t Referred To Contact Orthopedics Diagnoses Elbow mass, right Procedures CONSULT TO ORTHOPAEDICS OFFICE/OUTPATIENT [facility] 60 MINUTES Krishna Reynolds MD [address] [place] [address] Referral ID Status Reason Start Date Expiration Date Visits Requested Visits Authorized [id number] Authorized PCP Requested Referral 09/10/2023 09/09/2024 1 1 Additional Source Comments (unrecognized sect ion and content) No Status Records FoundNo Status Records FoundNo Status Records FoundNo Status Records Found INFORMATION SOURCE (unrecogn ized section and content) DATE CREATED AUTHOR 07/29/2020 [facility] DATE CREATED AUTHOR AUTHOR'S ORGANIZ ATION 09/04/2020 [facility] DATE CREATED AUTHOR AUTHOR'S ORGANIZ ATION 11/28/2024 [facility] DATE CREATED AUTHOR AUTHOR'S ORGANIZ ATION 12/01/2024 [facility] Source Comments (unrecognize d section and content) In the event this informatio n is protected by the Federal Confidentiality of Alcohol and Drug Abuse Patient Records regulations: The Federal rules restrict any use of the information to criminally investigate or prosecute any alcohol or drug abuse patient.[facility] the event this information is protected by the Federal Confidentiality of Alcohol and Drug Abuse Patient Records regulations: The Federal rules restrict any use of the information to criminally investigate or prosecute any alcohol or drug abuse patient.[facility] the event this information is protected by the Federal Confidentiality of Alcohol and Drug Abuse Patient Records regulations: The Federal rules restrict any use of the information to criminally investigate or prosecute any alcohol or drug abuse patient.[facility] the event this information is protected by the Federal Confidentiality of Alcohol and Drug Abuse Patient Records regulations: The Federal rules restrict any use of the information to criminally investigate or prosecute any alcohol or drug abuse patient.[facility] the event this information is protected by the Federal Confidentiality of Alcohol and Drug Abuse Patient Records regulations: The Federal rules restrict any use of the information to criminally investigate or prosecute any alcohol or drug abuse patient.[facility] the event this information is protected by the Federal Confidentiality of Alcohol and Drug Abuse Patient Records regulations: The Federal rules restrict any use of the information to criminally investigate or prosecute any alcohol or drug abuse patient.[facility] the event this information is protected by the Federal Confidentiality of Alcohol and Drug Abuse Patient Records regulations: The Federal rules restrict any use of the information to criminally investigate or prosecute any alcohol or drug abuse patient.[facility] the event this information is protected by the Federal Confidentiality of Alcohol and Drug Abuse Patient Records regulations: The Federal rules restrict any use of the information to criminally investigate or prosecute any alcohol or drug abuse patient.[facility] the event this information is protected by the Federal Confidentiality of Alcohol and Drug Abuse Patient Records regulations: The Federal rules restrict any use of the information to criminally investigate or prosecute any alcohol or drug abuse patient.[facility] the event this information is protected by the Federal Confidentiality of Alcohol and Drug Abuse Patient Records regulations: The Federal rules restrict any use of the information to criminally investigate or prosecute any alcohol or drug abuse patient.[facility] the event this information is protected by the Federal Confidentiality of Alcohol and Drug Abuse Patient Records regulations: The Federal rules restrict any use of the information to criminally investigate or prosecute any alcohol or drug abuse patient.[facility] the event this information is protected by the Federal Confidentiality of Alcohol and Drug Abuse Patient Records regulations: The Federal rules restrict any use of the information to criminally investigate or prosecute any alcohol or drug abuse patient.[facility] the event this information is protected by the Federal Confidentiality of Alcohol and Drug Abuse Patient Records regulations: The Federal rules restrict any use of the information to criminally investigate or prosecute any alcohol or drug abuse patient.[facility] CampusIn the event this information is protected by the Federal Confidentiality of Alcohol and Drug Abuse Patient Records regulations: The Federal rules restrict any use of the information to criminally investigate or prosecute any alcohol or drug abuse patient.[facility] CampusIn the event this information is protected by the Federal Confidentiality of Alcohol and Drug Abuse Patient Records regulations: The Federal rules restrict any use of the information to criminally investigate or prosecute any alcohol or drug abuse patient.[facility] Campus[facility] the event this information is protected by the Federal Confidentiality of Alcohol and Drug Abuse Patient Records regulations: The Federal rules restrict any use of the information to criminally investigate or prosecute any alcohol or drug abuse patient.[facility] CampusIn the event this information is protected by the Federal Confidentiality of Alcohol and Drug Abuse Patient Records regulations: The Federal rules restrict any use of the information to criminally investigate or prosecute any alcohol or drug abuse patient.[facility] CampusIn the event this information is protected by the Federal Confidentiality of Alcohol and Drug Abuse Patient Records regulations: The Federal rules restrict any use of the information to criminally investigate or prosecute any alcohol or drug abuse patient.[facility] CampusIn the event this information is protected by the Federal Confidentiality of Alcohol and Drug Abuse Patient Records regulations: The Federal rules restrict any use of the information to criminally investigate or prosecute any alcohol or drug abuse patient.[facility] CampusIn the event this information is protected by the Federal Confidentiality of Alcohol and Drug Abuse Patient Records regulations: The Federal rules restrict any use of the information to criminally investigate or prosecute any alcohol or drug abuse patient.[facility] CampusIn the event this information is protected by the Federal Confidentiality of Alcohol and Drug Abuse Patient Records regulations: The Federal rules restrict any use of the information to criminally investigate or prosecute any alcohol or drug abuse patient.[facility] CampusIn the event this information is protected by the Federal Confidentiality of Alcohol and Drug Abuse Patient Records regulations: The Federal rules restrict any use of the information to criminally investigate or prosecute any alcohol or drug abuse patient.[facility] CampusIn the event this information is protected by the Federal Confidentiality of Alcohol and Drug Abuse Patient Records regulations: The Federal rules restrict any use of the information to criminally investigate or prosecute any alcohol or drug abuse patient.[facility] CampusIn the event this information is protected by the Federal Confidentiality of Alcohol and Drug Abuse Patient Records regulations: The Federal rules restrict any use of the information to criminally investigate or prosecute any alcohol or drug abuse patient.[facility] Campus[facility] the event this information is protected by the Federal Confidentiality of Alcohol and Drug Abuse Patient Records regulations: The Federal rules restrict any use of the information to criminally investigate or prosecute any alcohol or drug abuse patient.[facility] CampusIn the event this information is protected by the Federal Confidentiality of Alcohol and Drug Abuse Patient Records regulations: The Federal rules restrict any use of the information to criminally investigate or prosecute any alcohol or drug abuse patient.[facility] CampusIn the event this information is protected by the Federal Confidentiality of Alcohol and Drug Abuse Patient Records regulations: The Federal rules restrict any use of the information to criminally investigate or prosecute any alcohol or drug abuse patient.[facility] CampusIn the event this information is protected by the Federal Confidentiality of Alcohol and Drug Abuse Patient Records regulations: The Federal rules restrict any use of the information to criminally investigate or prosecute any alcohol or drug abuse patient.[facility] CampusIn the event this information is protected by the Federal Confidentiality of Alcohol and Drug Abuse Patient Records regulations: The Federal rules restrict any use of the information to criminally investigate or prosecute any alcohol or drug abuse patient.[facility] CampusIn the event this information is protected by the Federal Confidentiality of Alcohol and Drug Abuse Patient Records regulations: The Federal rules restrict any use of the information to criminally investigate or prosecute any alcohol or drug abuse patient.[facility] CampusIn the event this information is protected by the Federal Confidentiality of Alcohol and Drug Abuse Patient Records regulations: The Federal rules restrict any use of the information to criminally investigate or prosecute any alcohol or drug abuse patient.[facility] CampusIn the event this information is protected by the Federal Confidentiality of Alcohol and Drug Abuse Patient Records regulations: The Federal rules restrict any use of the information to criminally investigate or prosecute any alcohol or drug abuse patient.[facility] CampusIn the event this information is protected by the Federal Confidentiality of Alcohol and Drug Abuse Patient Records regulations: The Federal rules restrict any use of the information to criminally investigate or prosecute any alcohol or drug abuse patient.[facility] CampusIn the event this information is protected by the Federal Confidentiality of Alcohol and Drug Abuse Patient Records regulations: The Federal rules restrict any use of the information to criminally investigate or prosecute any alcohol or drug abuse patient.[facility] CampusIn the event this information is protected by the Federal Confidentiality of Alcohol and Drug Abuse Patient Records regulations: The Federal rules restrict any use of the information to criminally investigate or prosecute any alcohol or drug abuse patient.[facility] CampusIn the event this information is protected by the Federal Confidentiality of Alcohol and Drug Abuse Patient Records regulations: The Federal rules restrict any use of the information to criminally investigate or prosecute any alcohol or drug abuse patient.[facility] CampusIn the event this information is protected by the Federal Confidentiality of Alcohol and Drug Abuse Patient Records regulations: The Federal rules restrict any use of the information to criminally investigate or prosecute any alcohol or drug abuse patient.[facility] CampusIn the event this information is protected by the Federal Confidentiality of Alcohol and Drug Abuse Patient Records regulations: The Federal rules restrict any use of the information to criminally investigate or prosecute any alcohol or drug abuse patient.[facility] CampusIn the event this information is protected by the Federal Confidentiality of Alcohol and Drug Abuse Patient Records regulations: The Federal rules restrict any use of the information to criminally investigate or prosecute any alcohol or drug abuse patient.[facility] CampusIn the event this information is protected by the Federal Confidentiality of Alcohol and Drug Abuse Patient Records regulations: The Federal rules restrict any use of the information to criminally investigate or prosecute any alcohol or drug abuse patient.[facility] CampusIn the event this information is protected by the Federal Confidentiality of Alcohol and Drug Abuse Patient Records regulations: The Federal rules restrict any use of the information to criminally investigate or prosecute any alcohol or drug abuse patient.[facility] CampusIn the event this information is protected by the Federal Confidentiality of Alcohol and Drug Abuse Patient Records regulations: The Federal rules restrict any use of the information to criminally investigate or prosecute any alcohol or drug abuse patient.[facility] CampusIn the event this information is protected by the Federal Confidentiality of Alcohol and Drug Abuse Patient Records regulations: The Federal rules restrict any use of the information to criminally investigate or prosecute any alcohol or drug abuse patient.[facility] CampusIn the event this information is protected by the Federal Confidentiality of Alcohol and Drug Abuse Patient Records regulations: The Federal rules restrict any use of the information to criminally investigate or prosecute any alcohol or drug abuse patient.[facility] CampusIn the event this information is protected by the Federal Confidentiality of Alcohol and Drug Abuse Patient Records regulations: The Federal rules restrict any use of the information to criminally investigate or prosecute any alcohol or drug abuse patient.[facility] CampusIn the event this information is protected by the Federal Confidentiality of Alcohol and Drug Abuse Patient Records regulations: The Federal rules restrict any use of the information to criminally investigate or prosecute any alcohol or drug abuse patient.[facility] CampusIn the event this information is protected by the Federal Confidentiality of Alcohol and Drug Abuse Patient Records regulations: The Federal rules restrict any use of the information to criminally investigate or prosecute any alcohol or drug abuse patient.[facility] CampusIn the event this information is protected by the Federal Confidentiality of Alcohol and Drug Abuse Patient Records regulations: The Federal rules restrict any use of the information to criminally investigate or prosecute any alcohol or drug abuse patient.[facility] CampusIn the event this information is protected by the Federal Confidentiality of Alcohol and Drug Abuse Patient Records regulations: The Federal rules restrict any use of the information to criminally investigate or prosecute any alcohol or drug abuse patient.[facility] CampusIn the event this information is protected by the Federal Confidentiality of Alcohol and Drug Abuse Patient Records regulations: The Federal rules restrict any use of the information to criminally investigate or prosecute any alcohol or drug abuse patient.[facility] CampusIn the event this information is protected by the Federal Confidentiality of Alcohol and Drug Abuse Patient Records regulations: The Federal rules restrict any use of the information to criminally investigate or prosecute any alcohol or drug abuse patient.[facility] the event this information is protected by the Federal Confidentiality of Alcohol and Drug Abuse Patient Records regulations: The Federal rules restrict any use of the information to criminally investigate or prosecute any alcohol or drug abuse patient.[facility] CampusIn the event this information is protected by the Federal Confidentiality of Alcohol and Drug Abuse Patient Records regulations: The Federal rules restrict any use of the information to criminally investigate or prosecute any alcohol or drug abuse patient.[facility] CampusIn the event this information is protected by the Federal Confidentiality of Alcohol and Drug Abuse Patient Records regulations: The Federal rules restrict any use of the information to criminally investigate or prosecute any alcohol or drug abuse patient.[facility] CampusIn the event this information is protected by the Federal Confidentiality of Alcohol and Drug Abuse Patient Records regulations: The Federal rules restrict any use of the information to criminally investigate or prosecute any alcohol or drug abuse patient.[facility] CampusIn the event this information is protected by the Federal Confidentiality of Alcohol and Drug Abuse Patient Records regulations: The Federal rules restrict any use of the information to criminally investigate or prosecute any alcohol or drug abuse patient.[facility] CampusIn the event this information is protected by the Federal Confidentiality of Alcohol and Drug Abuse Patient Records regulations: The Federal rules restrict any use of the information to criminally investigate or prosecute any alcohol or drug abuse patient.[facility] CampusIn the event this information is protected by the Federal Confidentiality of Alcohol and Drug Abuse Patient Records regulations: The Federal rules restrict any use of the information to criminally investigate or prosecute any alcohol or drug abuse patient.[facility] CampusIn the event this information is protected by the Federal Confidentiality of Alcohol and Drug Abuse Patient Records regulations: The Federal rules restrict any use of the information to criminally investigate or prosecute any alcohol or drug abuse patient.[facility] CampusIn the event this information is protected by the Federal Confidentiality of Alcohol and Drug Abuse Patient Records regulations: The Federal rules restrict any use of the information to criminally investigate or prosecute any alcohol or drug abuse patient.[facility] CampusIn the event this information is protected by the Federal Confidentiality of Alcohol and Drug Abuse Patient Records regulations: The Federal rules restrict any use of the information to criminally investigate or prosecute any alcohol or drug abuse patient.[facility] CampusIn the event this information is protected by the Federal Confidentiality of Alcohol and Drug Abuse Patient Records regulations: The Federal rules restrict any use of the information to criminally investigate or prosecute any alcohol or drug abuse patient.[facility] CampusIn the event this information is protected by the Federal Confidentiality of Alcohol and Drug Abuse Patient Records regulations: The Federal rules restrict any use of the information to criminally investigate or prosecute any alcohol or drug abuse patient.[facility] CampusIn the event this information is protected by the Federal Confidentiality of Alcohol and Drug Abuse Patient Records regulations: The Federal rules restrict any use of the information to criminally investigate or prosecute any alcohol or drug abuse patient.[facility] CampusIn the event this information is protected by the Federal Confidentiality of Alcohol and Drug Abuse Patient Records regulations: The Federal rules restrict any use of the information to criminally investigate or prosecute any alcohol or drug abuse patient.[facility] CampusIn the event this information is protected by the Federal Confidentiality of Alcohol and Drug Abuse Patient Records regulations: The Federal rules restrict any use of the information to criminally investigate or prosecute any alcohol or drug abuse patient.[facility] CampusIn the event this information is protected by the Federal Confidentiality of Alcohol and Drug Abuse Patient Records regulations: The Federal rules restrict any use of the information to criminally investigate or prosecute any alcohol or drug abuse patient.[facility] CampusIn the event this information is protected by the Federal Confidentiality of Alcohol and Drug Abuse Patient Records regulations: The Federal rules restrict any use of the information to criminally investigate or prosecute any alcohol or drug abuse patient.[facility] CampusIn the event this information is protected by the Federal Confidentiality of Alcohol and Drug Abuse Patient Records regulations: The Federal rules restrict any use of the information to criminally investigate or prosecute any alcohol or drug abuse patient.[facility] CampusIn the event this information is protected by the Federal Confidentiality of Alcohol and Drug Abuse Patient Records regulations: The Federal rules restrict any use of the information to criminally investigate or prosecute any alcohol or drug abuse patient.[facility] CampusIn the event this information is protected by the Federal Confidentiality of Alcohol and Drug Abuse Patient Records regulations: The Federal rules restrict any use of the information to criminally investigate or prosecute any alcohol or drug abuse patient.[facility] CampusIn the event this information is protected by the Federal Confidentiality of Alcohol and Drug Abuse Patient Records regulations: The Federal rules restrict any use of the information to criminally investigate or prosecute any alcohol or drug abuse patient.[facility] CampusIn the event this information is protected by the Federal Confidentiality of Alcohol and Drug Abuse Patient Records regulations: The Federal rules restrict any use of the information to criminally investigate or prosecute any alcohol or drug abuse patient.[facility] CampusIn the event this information is protected by the Federal Confidentiality of Alcohol and Drug Abuse Patient Records regulations: The Federal rules restrict any use of the information to criminally investigate or prosecute any alcohol or drug abuse patient.[facility] CampusIn the event this information is protected by the Federal Confidentiality of Alcohol and Drug Abuse Patient Records regulations: The Federal rules restrict any use of the information to criminally investigate or prosecute any alcohol or drug abuse patient.[facility] Reason for Visit (unrecogniz ed section and content) Reason Onset Date Comments Refill Request 07/10/2021 Reason Comments medication clarification Reason Onset Date Comments Refill Request 07/20/2021 Reason Comments Refill Request Reason Comments Established Patient 3 month follow up- l abs Reason Comments Connor Wong Refill Reason Comments FMLA Paperwork Reason Comments Follow Up Reason Comments Established Patient Reason Comments Medication Problem Reason Comments Medicare Wellness Exam Reason Comments Orders Reason Onset Date Comments [facility] Outreach 04/10/2022 ACO BENJAMIN PCSA Reason Comments Recheck 4 month follow up Reason Comments letter to be excused Jury duty Reason Onset Date Comments Refill Request 08/06/2022 Reason Comments Derm Problem Reason Onset Date Comments Refill Request 10/01/2022 Reason Comments Patient Question Reason Comments Referral Request Reason Comments Established Patient Callous pain Pain Callous pain Reason Comments F/U 6 months Reason Onset Date Comments [facility] Outreach 01/14/2023 ACO CARE GAP Reason Comments Results Reason Onset Date Comments Refill Request 03/13/2023 Reason Comments Medicare Wellness Exam Reason Onset Date Comments Refill Request 06/13/2023 Reason Comments Enlarged Scrotum Reason Comments Radiology US Specialty Diagnoses / Procedures Referred By Contac t Referred To Contact US IMAGING Diagnoses Hydrocele, acquired Procedures US SCROTUM AND CONTENTS US SCROTUM & CONTENTS Krishna Reynolds MD [address] [place] [address] [facility] [address] Referral ID Status Reason Start Date Expiration Date V isits Requested Visits Authorized [id number] Closed Auto-Generate d Referral 07/04/2023 08/02/2024 1 1 Reason Comments Appointment Reason Comments Mass Reason Comments New Swelling Specialty Diagnoses / Procedures Referred By Contac t Referred To Contact Orthopedics Diagnoses Elbow mass, right Procedures CONSULT TO ORTHOPAEDICS OFFICE/OUTPATIENT NEW HIGH MDM 60 MINUTES Krishna Reynolds MD [address] [place] [address] Referral ID Status Reason Start Date Expiration Date V isits Requested Visits Authorized [id number] Closed PCP Requested Referral 09/10/2023 09/09/2024 1 1 Reason Comments Recheck 6 month- reports SOB per usual but no increase as far as he is aware. Reason Onset Date Comments Refill Request 11/20/2023 Reason Comments Follow Up Established Patient Pain Reason Comments Patient Update Reason Comments Radio Gen RMP Reason Comments Radiology XR Reason Comments Patient Question Medication Problem Reason Comments Pain Reason Comments Letter Reason Comments Established Patient Pain Reason Comments Medicare Wellness Exam F/U 6 months Reason Comments Insurance Authorization Reason Comments Follow Up 8 month follow up Reason Comments Prescription Request Reason Comments Stress Test Instructions for 10/19/24 Reason Comments Patient Question regarding insulin Reason Comments Radiology NM Specialty Diagnoses / Procedures Referred By Contac t Referred To Contact MOLECULAR & FUNCTIONAL IMAGING Diagnoses Coronary artery disease of [place] artery of [place] heart with stable angina pectoris ROBNI (dyspnea on exertion) Procedures NM CARDIAC PERF STRESS/PHARM MYOCARDIAL SPECT MULTIPLE STUDIES Regulo Stover MD [address] [facility] [address] [place] [address] Phone: tel: fax: Molecular Imaging [address] [place] [address] Phone: tel: Referral ID Status Reason Start Date Expiration Date V isits Requested Visits Authorized [id number] Closed Auto-Generate d Referral 08/10/2024 09/09/2025 1 1 Reason Onset Date Comments Results 10/22/2024 Reason Onset Date Comments Refill Request 11/04/2024 Reason Comments Established Patient Callous region Follow Up Callous region Pain Callous region Established Patient Callous region, righ t lateral dorsal foot lump and left lateral heel region Follow Up Callous region, righ t lateral dorsal foot lump and left lateral heel region Pain Callous region, righ t lateral dorsal foot lump and left lateral heel region Care Teams (unrecognized sec tion and content) Collar Padder Blindstitch Relationship Specialty Start Date End Date Krishna Reynolds MD [address] [place] [address] PCP - General 08/25/09 Son Deluna [address] [facility] [address] [place] [address] Cardiology 02/08/20 Fabrice Wadsworth MD [address] [place], [place] [phone] Nephrology 02/10/20 Mitchel Aleman [address] [place] [address] Physician Ophthalmology 03/30/20 Gary Chandler DPM [address] [place] [phone] Referring Podiatry 08/01/20 Collar Padder Blindstitch Relationship Specialty Start Date End Date Krishna Reynolds MD [address] [place] [address] PCP - General 08/25/09 Son Deluna [address] [facility] [address] [place] [address] Cardiology 02/08/20 Fabrice Wadsworth MD [address] [place], [place] [id number]80- Nephrology 02/10/20 Mitchel Aleman [address] [place], [place] [phone] Physician Ophthalmology 03/30/20 Gary Chandler DPM [address] [place] [phone] Referring Podiatry 08/01/20 Collar Padder Blindstitch Relationship Specialty Start Date End Date Krishna Reynolds MD [address] [place] [address] PCP - General 08/25/09 Son Deluna [address] [place] [address] Cardiology 02/08/20 Fabrice Wadsworth MD [address] [place], [place] [phone]- Nephrology 02/10/20 Mitchel Aleman [address] [place] [address] Physician Ophthalmology 03/30/20 Gary Chandler DPM [address] [place] [phone] Referring Podiatry 08/01/20 Collar Padder Blindstitch Relationship Specialty Start Date End Date Krishna Reynolds MD [address] [place] [address] PCP - General 08/25/09 Son Deluna [address] [facility] [address] [place] [address] Cardiology 02/08/20 Fabrice Wadsworth MD [address] [place] [address] Nephrology 02/10/20 Mitchel Aleman [address] [place] [address] Physician Ophthalmology 03/30/20 Gary Chandler DPM [address] [place] [phone] Referring Podiatry 08/01/20 Collar Padder Blindstitch Relationship Specialty Start Date End Date Krishna Reynolds MD [address] [place] [address] PCP - General 08/25/09 Son Deluna [address] [facility] [address] [facility] [address] [place] [address] Cardiology 02/08/20 Fabrice Wadsworth MD [address] [place], [place] [phone]- Nephrology 02/10/20 Mitchel Aleman [facility] [place] [address] Physician Ophthalmology 03/30/20 Gary Chandler DPM [address] [place] [phone] Referring Podiatry 08/01/20 Collar Padder Blindstitch Relationship Specialty Start Date End Date Krishna Reynolds MD [address] [place] [address] PCP - General 08/25/[address] [facility] [address] [place] [address] Cardiology 02/08/20 Fabrice Wadsworth MD [address] [place] [address] Nephrology 02/10/20 Mitchel Aleman [address] [place] [address] Physician Ophthalmology 03/30/20 Gary Chandler DPM [address] [place] [phone] Referring Podiatry 08/01/20 Collar Padder Blindstitch Relationship Specialty Start Date End Date Krishna Reynolds MD [address] [place] [address] PCP - General 08/25/09 Son Deluna [address] [facility] [address] [facility] [address] [place] [address] Cardiology 02/08/20 Fabrice Wadsworth MD [address] [place], [place] [phone]- Nephrology 02/10/20 Mitchel Aleman [address] [place] [address] Physician Ophthalmology 03/30/20 Gary Chandler DPM [address] [place] [phone] Referring Podiatry 08/01/20 Collar Padder Blindstitch Relationship Specialty Start Date End Date Krishna Reynolds MD [address] [place] [address] PCP - General 08/25/09 Son Deluna [address] [facility] [address] [place] [address] Cardiology 02/08/20 Fabrice Wadsworth MD [address] [place] [address] Nephrology 02/10/20 Mitchel Aleman [address] [place], [place] [phone] Physician Ophthalmology 03/30/20 Gary Chandler DPM [address] [place] [phone] Referring Podiatry 08/01/20 Collar Padder Blindstitch Relationship Specialty Start Date End Date Krishna Reynolds MD [address] [place] [address] PCP - General 08/25/09 Son Deluna [address] [place] [address] Cardiology 02/08/20 Fabrice Wadsworth MD [address] [place] [address] Nephrology 02/10/20 Mitchel Aleman [address] [place] [address] Physician Ophthalmology 03/30/20 Gary Chandler DPM [address] [place] [phone] Referring Podiatry 08/01/20 Collar Padder Blindstitch Relationship Specialty Start Date End Date Krishna Reynolds MD [address] [place] [address] PCP - General 08/25/09 Son Deluna [address] [facility] [address] [place] [address] Cardiology 02/08/20 Fabrice Wadsworth MD [address] [place] [address] Nephrology 02/10/20 Mitchel Aleman [address] [place] [address] Physician Ophthalmology 03/30/20 Gary Chandler, DPChristina [address] [facility] [address] [place] [address] Referring Podiatry 08/01/20 Team Status: Active Member Role Status Dates Dr. Krishna Reynolds MD Family Provider Active Dr. Krishna Reynolds MD Primary Care Provider Active Team Status: Inactive Member Role Status Dates Dr. Krishna Reynolds MD Primary Care Provider, Atten ding Provider Active Krishna Reynolds MD Referring Provider Active Team Status: Inactive Member Role Status Dates Dr. Krishna Reynolds MD Primary Care Provider Active Dr. Wood Kraus MD Attending Provider, Referri ng Provider Active Team Status: Inactive Member Role Status Dates Dr. Krishna Reynolds MD Primary Care Provider, Atten ding Provider Active Team Status: Inactive Member Role Status Dates Dr. Krishna Reynolds MD Primary Care P rovider, Attending Provider, Referring Provider Active Team Status: Active Member Role Status Dates Dr. Krishna Reynolds MD Primary Care P rovider, Attending Provider, Referring Provider Active Team Status: Inactive Member Role Status Dates Dr. Krishna Reynolds MD Primary Care Provider Active Leila Older SCREENER AND BLENDER, SCREENER AND BLENDER-C Attending Provider, Referring Provi chidi Active Dr. Wood Kraus MD Other Provider Active Regulo Stover MD Other Provider Active Collar Padder Blindstitch Relationship Specialty Start Date End Date Krishna Reynolds MD [address] [place], [place] [id number] PCP - General 08/25/09 Son Deluna [address] [facility] [address] [place] [phone] Cardiology 02/08/20 Fabrice Wadsworth MD [address] [place], [place] [phone] Nephrology 02/10/20 Mitchel Aleman [address] [place] [address] Physician Ophthalmology 03/30/20 Gary Chadnler DPChristina [address] [place] [phone] Referring Podiatry 08/01/20 Team Status: Inactive Member Role Status Dates Dr. Krishna Reynolds MD Primary Care Provider, Atten ding Provider Active Krishna MULTANI MD Referring Provider Active Collar Padder Blindstitch Relationship Specialty Start Date End Date Krishna Reynolds MD [address] [place] [address] PCP - General 08/25/09 Son Deluna [address] [place] [address] Cardiology 02/08/20 Fabrice Wadsworth MD [address] [place], [place] [phone] Nephrology 02/10/20 Mitchel Aleman [address] [place] [address] Physician Ophthalmology 03/30/20 Gary Chandler, ARELIS [address] [place] [phone] Referring Podiatry 08/01/20 Team Status: Active Member Role Status Dates Dr. Krishna Reynolds MD Primary Care Provider Active Dr. Wood Kraus MD Attending Provider Active Collar Padder Blindstitch Relationship Specialty Start Date End Date Krishna Reynolds MD [address] [place] [address] PCP - General 08/25/09 Son Deluna [address] [place] [address] Cardiology 02/08/20 Fabrice Wadsworth MD [address] [place] [address] Nephrology 02/10/20 Mitchel Aleman [address] [place] [address] Physician Ophthalmology 03/30/20 Gary Chandler DPM [address] [place] [phone] Referring Podiatry 08/01/20 Team Status: Inactive Member Role Status Dates Dr. Krishna Reynolds MD Primary Care Provider Active Dr. Wood Kraus MD Attending Provider Active Collar Padder Blindstitch Relationship Specialty Start Date End Date Krishna Reynolds MD [address] [place] [address] PCP - General 08/25/09 Son Deluna [address] [place] [address] Cardiology 02/08/20 Fabrice Wadsworth MD [address] [place], [place] [phone]- Nephrology 02/10/20 Mitchel Aleman [address] [place] [address] Physician Ophthalmology 03/30/20 Gary Chandler DPM [address] [place] [phone] Referring Podiatry 08/01/20 Collar Padder Blindstitch Relationship Specialty Start Date End Date Krishna Reynolds MD [address] [place] [address] PCP - General 08/25/09 Son Deluna [address] [place] [address] Cardiology 02/08/20 Fabrice Wadsworth MD [address] [place], [place] [phone] Nephrology 02/10/20 Mitchel Aleman [address] [place], [place] [phone] Physician Ophthalmology 03/30/20 Gary Chandler DPM [address] [place] [phone] Referring Podiatry 08/01/20 Collar Padder Blindstitch Relationship Specialty Start Date End Date Krishna Reynolds MD [address] [place] [address] PCP - General 08/25/09 Son Deluna [address] [place] [address] Cardiology 02/08/20 Fabrice Wadsworth MD [address] [place], [place] [phone] Nephrology 02/10/20 Mitchel Aleman [address] [place], [place] [id number] Physician Ophthalmology 03/30/20 Gary Chandler DPM [address] [place] [phone] Referring Podiatry 08/01/20 Collar Padder Blindstitch Relationship Specialty Start Date End Date Krishna Reynolds MD [address] [place] [address] PCP - General 08/25/09 Son Deluna [address] [place] [address] Cardiology 02/08/20 Fabrice Wadsworth MD [address] [place], [place] [phone]- Nephrology 02/10/20 Mitchel Aleman [address] [place] [address] Physician Ophthalmology 03/30/20 Gary Chandler DPM [address] [place] [phone] Referring Podiatry 08/01/20 Collar Padder Blindstitch Relationship Specialty Start Date End Date Krishna Reynolds MD [address] [place] [address] PCP - General 08/25/09 Son Deluna [address] [place] [address] Cardiology 02/08/20 Fabrice Wadsworth MD [address] [place], [place] [id number]- Nephrology 02/10/20 Mitchel Aleman [address] [place] [address] Physician Ophthalmology 03/30/20 Gary Chandler DPM [address] [facility] 2 [place] [phone] Referring Podiatry 08/01/20 Collar Padder Blindstitch Relationship Specialty Start Date End Date Krishna Reynolds MD [address] [place] [address] PCP - General 08/25/[address] [facility] 3A [place] [phone] Cardiology 02/08/20 Fabrice Wadsworth MD [address] [place] [address] Nephrology 02/10/20 Mitchel Aleman [address] [place] [address] Physician Ophthalmology 03/30/20 Gary Chandler DPM [address] [facility] 2 [place] [phone] Referring Podiatry 08/01/20 Team Status: Active Member Role Status Dates Dr. Krishna Reynolds MD Primary Care Provider, Refer ring Provider Active ULISES Cui Attending Provider, Other Prov ider Active Team Status: Active Member Role Status Dates Dr. Krishna Reynolds MD Primary Care Provider Active Dr. Gucci Sanabria MD Attending Provider Active Team Status: Inactive Member Role Status Dates Dr. Krishna Reynolds MD Primary Care Provider, Refer ring Provider Active ULISES Cui Attending Provider Active Team Status: Active Member Role Status Dates Dr. Krishna Reynolds MD Primary Care Provider, Refer ring Provider Active ULISES Hurst Attending Provider, Other Provider A ctive Team Status: Inactive Member Role Status Dates Dr. Krishna Reynolds MD Primary Care Provider, Refer ring Provider Active ULISES Hurst Attending Provider Active Team Status: Inactive Member Role Status Dates Dr. Krishna Reynolds MD Primary Care Beata jennings, Attending Provider, Referring Provider Active Regulo Stover MD Other Provider Active Dr. Wood Kraus MD Other Provider Active Collar Padder Blindstitch Relationship Specialty Start Date End Date Krishna Reynolds MD [address] [place], [place] [address] PCP - General 08/25/[address] [facility] [address]A [place] [phone] Cardiology 02/08/20 Fabrice Wadsworth MD [address] [place] [address] Nephrology 02/10/20 Mitchel Aleman [address] [place] [address] Physician Ophthalmology 03/30/20 Gary Chandler DPM [address] [facility] 2 [place] [phone] Referring Podiatry 08/01/20 Team Status: Active Member Role Status Dates Dr. Krishna Reynolds MD Primary Care Provider Active Dr. Gucci Sanabria MD Attending Provider Active ULISES Hurst Referring Provider Active Collar Padder Blindstitch Relationship Specialty Start Date End Date Krishna Reynolds MD [address] [place] [address] PCP - General 08/25/09 Son Deluna [address] [place] [address] Cardiology 02/08/20 Fabrice Wadsworth MD [address] [place], [place] [phone] Nephrology 02/10/20 Mitchel Aleman MD [address] [place], [place] [address] Physician Ophthalmology 03/30/20 Gary Chandler DPM [address] [place] [phone] Referring Podiatry 08/01/20 Team Status: Inactive Member Role Status Dates Dr. Krishna eRynolds MD Primary Care Provider Active Dr. Wood Kraus MD Attending Provider, Referri ng Provider Active Regulo Stover MD Other Provider Active Collar Padder Blindstitch Relationship Specialty Start Date End Date Krishna Reynolds MD [address] [place] [address] PCP - General 08/25/09 Son Deluna MD [address] [place] [address] Cardiology 02/08/20 Fabrice Wadsworth MD [address] [place] [address] Nephrology 02/10/20 Mitchel Aleman MD [address] [place] [address] Physician Ophthalmology 03/30/20 Gary Chandler DPM [address] [facility] 2 [place] [phone] Referring Podiatry 08/01/20 Team Status: Active Member Role Status Dates Dr. Krishna Reynolds MD Primary Care Provider, Refer ring Provider Active Dr. Ronak Lucio MD Attending Provider Active Team Status: Inactive Member Role Status Dates Dr. Krishna Reynolds MD Primary Care Provider, Refer ring Provider Active Dr. Ronak Lucio MD Attending Provider Active Collar Padder Blindstitch Relationship Specialty Start Date End Date Krishna Reynolds MD [address] [place] [address] PCP - General 08/25/09 [place] [address] [place] [address] [address] [place], [place] 743231 Cardiology 02/08/20 Fabrice Wadsworth MD [address] [place] [address] Nephrology 02/10/20 Mitchel Aleman MD [facility]9 [place] [address] Physician Ophthalmology 03/30/20 Gary Chandler DPM [address] [facility] 2 [place] [phone] Referring Podiatry 08/01/20 Collar Padder Blindstitch Relationship Specialty Start Date End Date Krishna Reynolds MD [address] [place], [place] [id number] PCP - General 08/25/09 Son Deluna MD [address] [place] [address] Cardiology 02/08/20 Fabrice Wadsworth MD [address] [place], [place] [phone] Nephrology 02/10/20 Mitchel Aleman MD [address] [facility] [place] [place] [address] Physician Ophthalmology 03/30/20 Gary Chandler DPM [address] [place] [phone] Referring Podiatry 08/01/20 Collar Padder Blindstitch Relationship Specialty Start Date End Date Krishna Reynolds MD [address] [facility] [place] [address] PCP - General 08/25/09 Son Deluna MD [address] [place] [address] Cardiology 02/08/20 Fabrice Wadsworth MD [address] [place] [address] Nephrology 02/10/20 Mitchel Aleman MD [address] [place] [address] Physician Ophthalmology 03/30/20 Gary Chandler DPM [address] [place] [phone] Referring Podiatry 08/01/20 Collar Padder Blindstitch Relationship Specialty Start Date End Date Krishna Reynolds MD [address] [place] [address] PCP - General 08/25/09 Son Deluna MD [address] [address] Cardiology 02/08/20 Fabrice Wadsworth MD [address] [place], [place] [phone]- Nephrology 02/10/20 Mitchel Aleman MD [facility] [place] [address] Physician Ophthalmology 03/30/20 Gary Chandler DPM [address] [facility] 2 [place] [phone] Referring Podiatry 08/01/20 Collar Padder Blindstitch Relationship Specialty Start Date End Date Krishna Reynolds MD [address] [place] [address] PCP - General 08/25/09 Son Deluna MD [address] [facility] [address] [address] Cardiology 02/08/20 Fabrice Wadsworth MD [address] [place], [place] [phone]- Nephrology 02/10/20 Mitchel Aleman MD [address] [facility], [place] [address] Physician Ophthalmology 03/30/20 Gary Chandler DPM [address] [place] [phone] Referring Podiatry 08/01/20 Collar Padder Blindstitch Relationship Specialty Start Date End Date Krishna Reynolds MD [address] [place] [address] PCP - General 08/25/09 Son Deluna MD [address] [place] [address] Cardiology 02/08/20 Fabrice Wadsworth MD [address] [place] [address] Nephrology 02/10/20 Mitchel Aleman MD [address] [place], [place] [address]6701 Physician Ophthalmology 03/30/20 Gary Chandler DPM [address] [place] [phone] Referring Podiatry 08/01/20 Collar Padder Blindstitch Relationship Specialty Start Date End Date Krishna Reynolds MD [address] [facility] [address] PCP - General 08/25/09 Son Deluna MD [address] [place] [address] Cardiology 02/08/20 Fabrice Wadsworth MD [address] [place] [address] Nephrology 02/10/20 Mitchel Aleman MD [address] [place] [address] Physician Ophthalmology 03/30/20 Gary Chandler DPM [address] [place] [phone] Referring Podiatry 08/01/20 Collar Padder Blindstitch Relationship Specialty Start Date End Date Krishna Reynolds MD [address] [place] [address] PCP - General 08/25/09 Son Deluna MD [address] [address] Cardiology 02/08/20 Fabrice Wadsworth MD [address] [place] [address] Nephrology 02/10/20 Mitchel Aleman MD [address] [place] [address] Physician Ophthalmology 03/30/20 Gary Chandler DPM [address] [place] [phone] Referring Podiatry 08/01/20 Collar Padder Blindstitch Relationship Specialty Start Date End Date Krishna Reynolds MD [address] [place] [address] PCP - General 08/25/09 Son Deluna MD [address] [facility] 3A [place] [address] Cardiology 02/08/20 Fabrice Wadsworth MD [address] [place], [place] [phone] Nephrology 02/10/20 Mitchel Aleman MD [address] [place] [address] Physician Ophthalmology 03/30/20 Gary Chandler DPM [address] [facility] 2 [place] [phone] Referring Podiatry 08/01/20 Collar Padder Blindstitch Relationship Specialty Start Date End Date Krishna Reynolds MD [address] [place] [address] PCP - General 08/25/09 Son Deluna MD [address] [address] Cardiology 02/08/20 Fabrice Wadsworth MD [address] [place], [place] [phone] Nephrology 02/10/20 Mitchel Aleman MD [address] [place] [address] Physician Ophthalmology 03/30/20 Gary Chandler DPM [address] [place] [phone] Referring Podiatry 08/01/20 Collar Padder Blindstitch Relationship Specialty Start Date End Date Krishna Reynolds MD [address] [facility] [place] [facility] PCP - General 08/25/09 Son Deluna MD [address] [place] [address] Cardiology 02/08/20 Fabrice Wadsworth MD [address] [place], [place] [phone]- Nephrology 02/10/20 Mitchel Aleman MD [facility] [place] [address]6841 Physician Ophthalmology 03/30/20 Gary Chandler DPM [address] [place] [phone] Referring Podiatry 08/01/20 Collar Padder Blindstitch Relationship Specialty Start Date End Date Krishna Reynolds MD [address] [place] [address] PCP - General 08/25/09 Son Deluna MD [address] [place] [address] Cardiology 02/08/20 Fabrice Wadsworth MD [address] [place] [phone] Nephrology 02/10/20 Mitchel Aleman MD [address] [place] [address] Physician Ophthalmology 03/30/20 Gary Chandler DPM [address] [place] [phone] Referring Podiatry 08/01/20 Collar Padder Blindstitch Relationship Specialty Start Date End Date Krishna Reynolds MD [address] [place] [address] PCP - General 08/25/09 Son Deluna MD [address] [facility] [address]A [place], [place] [address] Cardiology 02/08/20 Fabrice Wadsworth MD [address] [place] [address] Nephrology 02/10/20 Mitchel Aleman MD [address] [place], [place] [address] Physician Ophthalmology 03/30/20 Gary Chandler DPM [address] [place] [phone] Referring Podiatry 08/01/20 Collar Padder Blindstitch Relationship Specialty Start Date End Date Krishna Reynolds MD [address] [place] [address] PCP - General 08/25/09 Son Deluna MD [address] [place] [address] Cardiology 02/08/20 Fabrice Wadsworth MD [address] [place], [place] [phone]- Nephrology 02/10/20 Mitchel Aleman MD [address] [facility] [place] 399[facility] Physician Ophthalmology 03/30/20 Gary Chandler DPM [address] [place] [phone] Referring Podiatry 08/01/20 Collar Padder Blindstitch Relationship Specialty Start Date End Date Krishna Reynolds MD [address] [place] [address] PCP - General 08/25/09 Son Deluna MD [address] [place] [address] Cardiology 02/08/20 Fabrice Wadsworth MD [address] [place] [address] Nephrology 02/10/20 Mitchel Aleman MD [address] [facility] [place] [address] Physician Ophthalmology 03/30/20 Gary Chandler DPM [address] [place] [phone] Referring Podiatry 08/01/20 Collar Padder Blindstitch Relationship Specialty Start Date End Date Krishna Reynolds MD [address] [place] [address] PCP - General 08/25/09 Son Deluna MD [address] [place] [address] Cardiology 02/08/20 Fabrice Wadsworth MD [address] [place] [address] Nephrology 02/10/20 Mitchel Aleman MD [address] [place] [address] Physician Ophthalmology 03/30/20 Gary Chandler DPM [address] [place] [phone] Referring Podiatry 08/01/20 Collar Padder Blindstitch Relationship Specialty Start Date End Date Krishna Reynolds MD [address] [place] [address] PCP - General 08/25/09 Son Deluna MD [address] [place] [address] Cardiology 02/08/20 Fabrice Wadsworth MD [address] [place], [place] [phone]- Nephrology 02/10/20 Mitchel Aleman MD [address] [place] [address] Physician Ophthalmology 03/30/20 Gary Chandler DPM [address] [place] [phone] Referring Podiatry 08/01/20 Collar Padder Blindstitch Relationship Specialty Start Date End Date Krishna Reynolds MD [address] [place] [address] PCP - General 08/25/09 Son Deluna MD [address] [facility] [address]A [place] [address] Cardiology 02/08/20 Fabrice Wadsworth MD [address] [place], [place] [phone]- Nephrology 02/10/20 Mitchel Aleman MD [address] [place] [address] Physician Ophthalmology 03/30/20 Collar Padder Blindstitch Relationship Specialty Start Date End Date Krishna Reynolds MD [address] [place] [address] PCP - General 08/25/09 Son Deluna MD [address] [facility] [address]A [place] [address] Cardiology 02/08/20 Fabrice Wadsworth MD [address] [place], [place] [phone]- Nephrology 02/10/20 Mitchel Aleman MD [address] [place] [address] Physician Ophthalmology 03/30/20 Gary Chandler DPM [address] [place] [phone] Referring Podiatry 08/01/20 Collar Padder Blindstitch Relationship Specialty Start Date End Date Krishna Reynolds MD [address] [place] [address] PCP - General 08/25/09 Son Deluna MD [address] [facility] [address]A [place] [address] Cardiology 02/08/20 Fabrice Wadsworth MD [address] [place] [address] Nephrology 02/10/20 Mitchel Aleman MD [address] [place] [address] Physician Ophthalmology 03/30/20 Gary Chandler DPM [address] [place] [phone] Referring Podiatry 08/01/20 Collar Padder Blindstitch Relationship Specialty Start Date End Date Krishna Reynolds MD [address] [place] [address] PCP - General 08/25/09 Son Deluna MD [address] [facility] [address] [place] [address] Cardiology 02/08/20 Fabrice Wadsworth MD [address] [place] [address] Nephrology 02/10/20 Mitchel Aleman MD [address] [place] [address] Physician Ophthalmology 03/30/20 Gary Chandler DPM [address] [facility] 2 [place] [phone] Referring Podiatry 08/01/20 Leila Suárez, 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 [address] [place] [address] Type Bar And Segment Assembler Internal Medicine 03/02/24 Collar Padder Blindstitch Relationship Specialty Start Date End Date Krishna Reynolds MD [address] [place] [address] PCP - General 08/25/09 Son Deluna MD [address] [facility] [address] [place] [address] Cardiology 02/08/20 Fabrice Wadsworth MD [address] [place], [place] [phone] Nephrology 02/10/20 Mitchel Aleman MD [address] [place] [address] Physician Ophthalmology 03/30/20 Gary Chandler DPM [address] [place] [phone] Referring Podiatry 08/01/20 Leila Suárez, 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 [address] [place], [place] [address] Type Bar And Segment Assembler Internal Medicine 03/02/24 Collar Padder Blindstitch Relationship Specialty Start Date End Date Krishna Reynolds MD [address] [place] [address] PCP - General 08/25/09 Son Deluna MD [address] [facility] [address] [place], [place] [address] Cardiology 02/08/20 Fabrice Wadsworth MD [address] [place], [place] [phone] Nephrology 02/10/20 Mitchel Aleman MD [address] [place] [address] Physician Ophthalmology 03/30/20 Gary Chandler DPM [address] [facility] 2 [place] [phone] Referring Podiatry 08/01/20 Leila Suárez, 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 [address] [place] [address] Type Bar And Segment Assembler Internal Medicine 03/02/24 Collar Padder Blindstitch Relationship Specialty Start Date End Date Krishna Reynolds MD [address] [place] [address] PCP - General 08/25/09 Son Deluna MD [address] [facility] [address] [place] [address] Cardiology 02/08/20 Fabrice Wadsworth MD [address] [place] [address] Nephrology 02/10/20 Mitchel Aleman MD [address] [place] [address] Physician Ophthalmology 03/30/20 Gary Chandler DPM [address] [facility] [place] [phone] Referring Podiatry 08/01/20 Leila Suárez, 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 [address] [place] [address] Type Bar And Segment Assembler Internal Medicine 03/02/24 Team Status: Active Member Role Status Dates Dr. Krishna Reynolds MD Primary Care Provider Active Team Status: Inactive Member Role Status Dates Dr. Krishna Reynolds MD Primary Care Provider Active Start: February 18, 2024 End: February 22, 2024 Dr. Krishna Reynolds MD Attending Provider Active Start: February 18, 2024 End: February 22, 2024 Dr. Krishna Reynolds MD Referring Provider Active Start: February 18, 2024 End: February 22, 2024 Team Status: Inactive Member Role Status Dates Dr. Krishna Reynolds MD Primary Care Provider Active Start: March 24, 2024 End: March 24, 2024 Dr. Krishna Reynolds MD Attending Provider Active Start: March 24, 2024 End: March 24, 2024 Dr. Krishna Reynolds MD Referring Provider Active Start: March 24, 2024 End: March 24, 2024 Team Status: Inactive Member Role Status Dates Dr. Krishna Reynolds MD Primary Care Provider Active Start: April 23, 2024 End: April 24, 2024 Dr. Krishna Reynolds MD Attending Provider Active Start: April 23, 2024 End: April 24, 2024 Dr. Krishna Reynolds MD Referring Provider Active Start: April 23, 2024 End: April 24, 2024 Team Status: Inactive Member Role Status Dates Dr. Krishna Reynolds MD Primary Care Provider Active Start: May 21, 2024 End: May 22, 2024 Dr. Krishna Reynolds MD Attending Provider Active Start: May 21, 2024 End: May 22, 2024 Dr. Krishna Reynolds MD Referring Provider Active Start: May 21, 2024 End: May 22, 2024 Team Status: Inactive Member Role Status Dates Dr. Krishna Reynolds MD Primary Care Provider Active Start: June 03, 2024 End: June 03, 2024 Dr. Krishna Reynolds MD Attending Provider Active Start: June 03, 2024 End: June 03, 2024 Dr. Krishna Reynolds MD Referring Provider Active Start: June 03, 2024 End: June 03, 2024 Team Status: Active Member Role Status Dates Dr. Krishna Reynolds MD Primary Care Provider Active Start: June 11, 2024 Dr. Krishna Reynolds MD Attending Provider Active Start: June 11, 2024 Dr. Krishna Reynolds MD Referring Provider Active Start: June 11, 2024 Team Status: Inactive Member Role Status Dates Dr. Krishna Reynolds MD Primary Care Provider Active Start: June 18, 2024 End: June 22, 2024 Dr. Krishna Reynolds MD Attending Provider Active Start: June 18, 2024 End: June 22, 2024 Dr. Krishna Reynolds MD Referring Provider Active Start: June 18, 2024 End: June 22, 2024 Collar Padder Blindstitch Relationship Specialty Start Date End Date Krishna Reynolds MD [address] [place] [address] PCP - General 08/25/09 Son Deluna MD [address] [facility] [address] [place] [address] Cardiology 02/08/20 Fabrice Wadsworth MD [address] [place] [address] Nephrology 02/10/20 Mitchel Aleman MD [address] [place] [address] Physician Ophthalmology 03/30/20 Gary Chandler DPM [address] [place] [phone] Referring Podiatry 08/01/20 Leila Suárez, 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 [address] [place] [address] Type Bar And Segment Assembler Internal Medicine 03/02/24 Collar Padder Blindstitch Relationship Specialty Start Date End Date Krishna Reynolds MD [address] [place] [address] PCP - General 08/25/09 Son Deluna MD [address] [facility] [address] [place] [address] Cardiology 02/08/20 Fabrice Wadsworth MD [address] [place] [address] Nephrology 02/10/20 Mitchel Aleman MD [address] [place] [address] Physician Ophthalmology 03/30/20 Gary Chandler DPM [address] [place] [phone] Referring Podiatry 08/01/20 Leila Suárez, 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 [address] [place] [address] Type Bar And Segment Assembler Internal Medicine 03/02/24 Team Status: Inactive Member Role Status Dates Dr. Krishna Reynolds MD Primary Care Provider Active Start: July 21, 2024 End: 2024 Dr. Krishna Reynolds MD Attending Provider Active Start: July 21, 2024 End: 2024 Dr. Krishna Reynolds MD Referring Provider Active Start: July 21, 2024 End: 2024 Team Status: Inactive Member Role Status Dates Dr. Krishna Reynolds MD Primary Care Provider Active Start: August 12, 2024 End: August 12, 2024 Dr. Wood Kraus MD Attending Provider Active Start: August 12, 2024 End: August 12, 2024 Dr. Wood Kraus MD Referring Provider Active Start: August 12, 2024 End: August 12, 2024 Team Status: Active Member Role Status Dates Dr. Krishna Reynolds MD Primary Care Provider Active Start: August 18, 2024 Dr. Krishna Reynolds MD Attending Provider Active Start: August 18, 2024 Dr. Krishna Reynolds MD Referring Provider Active Start: August 18, 2024 Team Status: Inactive Member Role Status Dates Dr. Krishna Reynolds MD Primary Care Provider Active Start: August 20, 2024 End: August 22, 2024 Dr. Krishna Reynolds MD Attending Provider Active Start: August 20, 2024 End: August 22, 2024 Dr. Krishna Reynolds MD Referring Provider Active Start: August 20, 2024 End: August 22, 2024 Team Status: Active Member Role/Relationship Status Dates Dr. Krishna Reynolds MD Primary Care Provider Active Team Status: Inactive Member Role/Relationship Status Dates Dr. Krishna Reynolds MD Primary Care Provider Active Start: June 03, 2024 End: June 03, 2024 Dr. Krishna Reynolds MD Attending Provider Active Start: June 03, 2024 End: June 03, 2024 Dr. Krishna Reynolds MD Referring Provider Active Start: June 03, 2024 End: June 03, 2024 Team Status: Inactive Member Role/Relationship Status Dates Dr. Krishna Reynolds MD Primary Care Provider Active Start: June 18, 2024 End: June 22, 2024 Dr. Krishna Reynolds MD Attending Provider Active Start: June 18, 2024 End: June 22, 2024 Dr. Krishna Reynolds MD Referring Provider Active Start: June 18, 2024 End: June 22, 2024 Team Status: Inactive Member Role/Relationship Status Dates Dr. Krishna Reynolds MD Primary Care Provider Active Start: July 21, 2024 End: 2024 Dr. Krishna Reynolds MD Attending Provider Active Start: July 21, 2024 End: 2024 Dr. Krishna Reynolds MD Referring Provider Active Start: July 21, 2024 End: 2024 Team Status: Inactive Member Role/Relationship Status Dates Dr. Krishna Reynolds MD Primary Care Provider Active Start: August 12, 2024 End: August 12, 2024 Dr. Wood Kraus MD Attending Provider Active Start: August 12, 2024 End: August 12, 2024 Dr. Wood Kraus MD Referring Provider Active Start: August 12, 2024 End: August 12, 2024 Team Status: Inactive Member Role/Relationship Status Dates Dr. Krishna Reynolds MD Primary Care Provider Active Start: August 20, 2024 End: August 22, 2024 Dr. Krishna Reynolds MD Attending Provider Active Start: August 20, 2024 End: August 22, 2024 Dr. Krishna Reynolds MD Referring Provider Active Start: August 20, 2024 End: August 22, 2024 Team Status: Inactive Member Role/Relationship Status Dates Dr. Krishna Reynolds MD Primary Care Provider Active Start: September 17, 2024 End: September 21, 2024 Dr. Krishna Reynolds MD Attending Provider Active Start: September 17, 2024 End: September 21, 2024 Dr. Krishna Reynolds MD Referring Provider Active Start: September 17, 2024 End: September 21, 2024 Collar Padder Blindstitch Relationship Specialty Start Date End Date Krishna Reynolds MD [address] [place] [address] PCP - General 08/25/09 Son Deluna MD [address] [facility] [address] [place], [place] [address] Cardiology 02/08/20 Fabrice Wadsworth MD [address] [place] [address] Nephrology 02/10/20 Mitchel Aleman MD [address] [place], [place] [id number] Physician Ophthalmology 03/30/20 Gary Chandler DPM [address] [facility] [address] [place] [phone] Referring Podiatry 08/01/20 Leila Suárez, 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 [address] [place], [place] [id number] Type Bar And Segment Assembler Internal Medicine 03/02/24 Collar Padder Blindstitch Relationship Specialty Start Date End Date Krishna Reynolds MD [address] [place] [address] PCP - General 08/25/09 Son Deluna MD [address] [facility] [address] [place] [address] Cardiology 02/08/20 Fabrice Wadsworth MD [address] [place], [place] [id number] Nephrology 02/10/20 Mitchel Aleman MD [address] [place], [place] [address] Physician Ophthalmology 03/30/20 Gary Chandler DPM [address] [place] [phone] Referring Podiatry 08/01/20 Leila Suárez, 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 [address] [place] [address] Type Bar And Segment Assembler Internal Medicine 03/02/24 Collar Padder Blindstitch Relationship Specialty Start Date End Date Krishna Reynolds MD [address] [place] [address] PCP - General 08/25/09 Son Deluna MD [address] [facility] [address] [place] [address] Cardiology 02/08/20 Fabrice Wadsworth MD [address] [place] [address] Nephrology 02/10/20 Mitchel Aleman MD [address] [place] [address] Physician Ophthalmology 03/30/20 Gary Chandler DPM [address] [facility] [address] [place] [phone] Referring Podiatry 08/01/20 Leila Suárez, 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 [address] [place] [address] Type Bar And Segment Assembler Internal Medicine 03/02/24 Collar Padder Blindstitch Relationship Specialty Start Date End Date Krishna Reynolds MD [address] [place] [address] PCP - General 08/25/09 Son Deluna MD [address] [facility] [address] [place], [place] [address] Cardiology 02/08/20 Fabrice Wadsworth MD [address] [place], [place] [id number] Nephrology 02/10/20 Mitchel Aleman MD [address] [place] [address] Physician Ophthalmology 03/30/20 Gary Chandler DPM [address] [place] [phone] Referring Podiatry 08/01/20 Leila Suárez, 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 [address] [place] [address] Type Bar And Segment Assembler Internal Medicine 03/02/24 Team Status: Inactive Member Role/Relationship Status Dates Dr. Krishna Reynolds MD Primary Care Provider Active Start: July 21, 2024 End: 2024 Dr. Krishna Reynolds MD Attending Provider Active Start: July 21, 2024 End: 2024 Dr. Krishna Reynolds MD Referring Provider Active Start: July 21, 2024 End: 2024 Team Status: Inactive Member Role/Relationship Status Dates Dr. Krishna Reynolds MD Primary Care Provider Active Start: August 12, 2024 End: August 12, 2024 Dr. Wood Kraus MD Attending Provider Active Start: August 12, 2024 End: August 12, 2024 Dr. Wood Kraus MD Referring Provider Active Start: August 12, 2024 End: August 12, 2024 Team Status: Inactive Member Role/Relationship Status Dates Dr. Krishna Reynolds MD Primary Care Provider Active Start: August 20, 2024 End: August 22, 2024 Dr. Krishna Reynolds MD Attending Provider Active Start: August 20, 2024 End: August 22, 2024 Dr. Krishna Reynolds MD Referring Provider Active Start: August 20, 2024 End: August 22, 2024 Team Status: Inactive Member Role/Relationship Status Dates Dr. Krishna Reynolds MD Primary Care Provider Active Start: September 17, 2024 End: September 21, 2024 Dr. Krishna Reynolds MD Attending Provider Active Start: September 17, 2024 End: September 21, 2024 Dr. Krishna Reynolds MD Referring Provider Active Start: September 17, 2024 End: September 21, 2024 Team Status: Inactive Member Role/Relationship Status Dates Dr. Krishna Reynolds MD Primary Care Provider Active Start: October 22, 2024 End: October 22, 2024 Dr. rKishna Reynolds MD Attending Provider Active Start: October 22, 2024 End: October 22, 2024 Dr. Krishna Reynolds MD Referring Provider Active Start: October 22, 2024 End: October 22, 2024 Team Status: Inactive Member Role/Relationship Status Dates Dr. Krishna Reynolds MD Primary Care Provider Active Start: August 12, 2024 End: August 12, 2024 Dr. Wood Kraus MD Attending Provider Active Start: August 12, 2024 End: August 12, 2024 Dr. Wood Kraus MD Referring Provider Active Start: August 12, 2024 End: August 12, 2024 Team Status: Inactive Member Role/Relationship Status Dates Dr. Krishna Reynolds MD Primary Care Provider Active Start: August 20, 2024 End: August 22, 2024 Dr. Krishna Reynolds MD Attending Provider Active Start: August 20, 2024 End: August 22, 2024 Dr. Krishna Reynolds MD Referring Provider Active Start: August 20, 2024 End: August 22, 2024 Team Status: Inactive Member Role/Relationship Status Dates Dr. Krishna Reynolds MD Primary Care Provider Active Start: September 17, 2024 End: September 21, 2024 Dr. Krishna Reynolds MD Attending Provider Active Start: September 17, 2024 End: September 21, 2024 Dr. Krishna Reynolds MD Referring Provider Active Start: September 17, 2024 End: September 21, 2024 Team Status: Inactive Member Role/Relationship Status Dates Dr. Krishna Reynolds MD Primary Care Provider Active Start: October 22, 2024 End: October 22, 2024 Dr. Krishna Reynolds MD Attending Provider Active Start: October 22, 2024 End: October 22, 2024 Dr. Krishna Reynolds MD Referring Provider Active Start: October 22, 2024 End: October 22, 2024 Team Status: Inactive Member Role/Relationship Status Dates Dr. Krishna Reynolds MD Primary Care Provider Active Start: November 19, 2024 End: November 22, 2024 Dr. Krishna Reynolds MD Attending Provider Active Start: November 19, 2024 End: November 22, 2024 Dr. Krishna Reynolds MD Referring Provider Active Start: November 19, 2024 End: November 22, 2024 Collar Padder Blindstitch Relationship Specialty Start Date End Date Krishna Reynolds MD [address] [place] [address] PCP - General 08/25/09 Son Deluna MD [address] [place], [place] [address] Cardiology 02/08/20 Fabrice Wadsworth MD [address] [place], [place] [phone] Nephrology 02/10/20 Mitchel Aleman MD [address] [place], [place] [address] Physician Ophthalmology 03/30/20 Gary Chandler DPM [address] [place] [phone] Referring Podiatry 08/01/20 Leila Suárez, 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 [address] [place] [address] Type Bar And Segment Assembler Internal Medicine 03/02/24 Goals (unrecognized section and content) Goals may be documented in a n alternate sectionGoals may be documented in an alternate sectionGoals may be documented in an alternate sectionGoals may be documented in an alternate sectionGoals may be documented in an alternate sectionGoals may be documented in an alternate sectionGoals may be documented in an alternate sectionGoals may be documented in an alternate sectionGoals may be documented in an alternate sectionGoals may be documented in an alternate sectionGoals may be documented in an alternate sectionGoals may be documented in an alternate sectionGoals may be documented in an alternate sectionGoals may be documented in an alternate sectionGoals may be documented in an alternate sectionGoals may be documented in an alternate sectionGoals may be documented in an alternate sectionGoals may be documented in an alternate sectionGoals may be documented in an alternate sectionGoals may be documented in an alternate sectionGoals may be documented in an alternate sectionGoals may be documented in an alternate sectionGoals may be documented in an alternate sectionGoals may be documented in an alternate sectionGoals may be documented in an alternate sectionGoals may be documented in an alternate sectionGoals may be documented in an alternate sectionGoals may be documented in an alternate sectionGoals may be documented in an alternate sectionGoals may be documented in an alternate sectionGoals may be documented in an alternate sectionGoals may be documented in an alternate sectionGoals may be documented in an alternate sectionGoals may be documented in an alternate sectionGoals may be documented in an alternate sectionGoals may be documented in an alternate sectionGoals may be documented in an alternate sectionGoals may be documented in an alternate sectionGoals may be documented in an alternate section FOR RECORDS PERTAINING TO PATIENTS WHO ARE [...] BE BASED ON THE PRIMARY CLINICAL RECORDS. [facility]. provides no warranty or guarantee of the accuracy or completeness of information in this document.
[2024-12-02 08:27] LABS: Anion Gap 14 (5-15); BUN 20 mg/dL (4-19); BUN/Creat Ratio 18.8 RATIO (10-20); Calcium,Total 9.4 mg/dL (7.6-11.0); Carbon Dioxide 23.8 mmol/L (21.0-32.0); Chloride 102 mmol/L (98-108); Glucose 106 mg/dL (70-99); Potassium 4.3 mmol/L (3.3-5.1)
[2024-12-02 08:40] LABS: Cholesterol 176 mg/dL (<=200); Low Density Lipoprotein Calc. 108 mg/dL; Triglycerides 138 mg/dL; Very Low Density Lipoprotein 28 mg/dL (5-40); cholesterol:hdl ratio screen 4.30
== END | disposition home or self-care (01) ==
PROVIDERS: PCP Internal Medicine; Referring Provider Internal Medicine; Visit Provider Internal Medicine
DX: E11.40 Type 2 diabetes mellitus with diabetic neuropathy, unspecified (principal); Z79.4 Long term (current) use of insulin; E78.49 Other hyperlipidemia
CPT/HCPCS: 36415; 80048; 80061; 83036

== ENCOUNTER 2024-12-22 08:00 | Outpatient (RCR) | payer SELFPAY ==
[2020-12-01 05:55] VITALS: BMI 45.8
== END 2024-12-22 23:59 ==
LOC: CR 08:00
PROVIDERS: PCP Internal Medicine; Referring Provider Internal Medicine; Visit Provider Internal Medicine
DX: Z00.00 Encounter for general adult medical examination without abnormal findings (principal)

== ENCOUNTER → 2025-01-15 | Outpatient (CLI) | payer MEDICARE, OTHER, SELFPAY ==
[2020-12-01 05:55] VITALS: BMI 45.8
[2025-01-15 07:47] LABS: Pro- Brain NATRIURETIC PEPTIDE 259 pg/mL (<=900); Uric Acid 10.7 mg/dL (3.5-7.2)
[2025-01-15 07:48] LABS: Anion Gap 12 (5-15); BUN 22 mg/dL (4-19); BUN/Creat Ratio 18.2 RATIO (10-20); Calcium,Total 9.6 mg/dL (7.6-11.0); Carbon Dioxide 26.2 mmol/L (21.0-32.0); Chloride 102 mmol/L (98-108); Glucose 112 mg/dL (70-99); Potassium 4.8 mmol/L (3.3-5.1)
== END | disposition home or self-care (01) ==
LOC: LAB 06:28
PROVIDERS: PCP Internal Medicine; Referring Provider Internal Medicine Interventional Cardiology; Visit Provider Internal Medicine Interventional Cardiology
DX: I50.32 Chronic diastolic (congestive) heart failure (principal); M1A.9XX1 Chronic gout, unspecified, with tophus (tophi); R06.09 Other forms of dyspnea
CPT/HCPCS: 36415; 80048; 83880; 84550

== ENCOUNTER → 2025-01-19 | Outpatient (CLI) | payer MEDICARE, OTHER, SELFPAY ==
[2020-12-01 05:55] VITALS: BMI 45.8
--- OUTSIDE RECORDS SUMMARY | 2025-01-19 07:17 | XMS RPT_ITS | CCD ---
Author Organization [facility] Care Team Providers Care Food And Beverage Assistant Name Role Phone Maddy LAST, Brea Savage Unavailable Son Deluna MD Unavailable Marva Rodriguez Unavailable Unavailable Marva Rodriguez Unavailable Unavailable Mojgan Obando RN Unavailable Unavailable [facility] Nurse Unavailable Unavailable Krishna Reynolds MD Primary Care Provider Son Deluna Unavailable Fabrice Wadsworth MD Unavailable Mitchel Aleman Unavailable Chandler DPChristina, Gary J Unavailable Krishna Reynolds MD Primary Care Provider Son Deluna Unavailable Fabrice Wadsworth MD Unavailable Mitchel Aleman Unavailable Chandler DPM, Gary J Unavailable Son Deluna Unavailable Fabrice Wadsworth MD Unavailable Mitchel Aleman Unavailable Chandler DPM, Gary J Unavailable Krishna Reynolds MD Primary Care Provider Son Deluna Unavailable Fabrice Wadsworth MD Unavailable Mitchel Aleman Unavailable Ramesh INFANTE, Gary Estrada Unavailable Dr. Krishna Reynolds Primary Care Provider Dr. Krishna Reynolds Referring Provider Violet, ULISES Dalia Attending Provider [facility] [place] Dalia Other Provider [phone] Dr. Gucci Sanabria Attending Provider [phone] [place], [place] Dalia Attending Provider [phone] [place], [place] Dalia Other Provider [place], [place] Dalia Referring Provider [phone] Mitchel Aleman MD Unavailable Dr. Krishna Reynolds Primary Care Provider Dr. Krishna Reynolds Referring Provider [place], [place] Dalia Attending Provider [phone] [place], [place] Dalia Other Provider Dr. Gucci Sanabria Attending Provider [phone] [place], [place] Dalia Referring Provider [phone] Regi KRUEGER, Son Lomax Unavailable Dr. Krishna Reynolds Primary Care Provider Dr. Krishna Reynolds Referring Provider Yong, PA Dalia Attending Provider [phone] [place], [place] Dalia Other Provider Dr. Krishna Reynolds Primary Care Provider Dr. Krishna Reynolds Referring Provider Yong, PA Dalia Attending Provider [phone] Krishna Reynolds MD Primary Care Provider Mitchel Aleman MD Unavailable Ramesh INFANTE, Gary Hernandez Unavailable [facility] 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, Leila M Unavailable Rodolfo KRUEGER, Dr. Keller Primary Care Provider [...] Provider Rodolfo KRUEGER, Dr. Keller Primary Care Physician Rodolfo KRUEGER, Dr. Keller Attending Physician Rodolfo KRUEGER, Dr. Keller Referring Provider RODOLFO, KRISHNA Patel Primary Care Unavailable CHIUNDA, ARABELLA Attending Unavailable REYNOLDS, SOPHIE Primary Care Unavailable REYNOLDS, SOPHIE Attending Unavailable REYNOLDS, SOPHIE Referring Unavailable REYNOLDS, SOPHIE Primary Care Unavailable REYNOLDS, SOPHIE Primary Care Unavailable REYNOLDS, SOPHIE Attending Unavailable REYNOLDS, SOPHIE Primary Care Unavailable CHIUNDA, ARABELLA Attending Unavailable REGULO STOVER Referring Unavailable REYNOLDS, SOPHIE Primary Care Unavailable JOLANTAREGULO Referring Unavailable REYNOLDS, SOPHIE Primary Care Unavailable JOLANTA, REGULO KAPOOR Referring Unavailable JOLANTA, REGULO KAPOOR Attending Unavailable REYNOLDS, SOPHIE Primary Care Unavailable REYNOLDS, SOPHIE Primary Care Unavailable REYNOLDS, SOPHIE Attending Unavailable Reynolds, Krishna Primary Care Unavailable Nayana, Babatundeprajasvir Referring Unavailable Nayana, Babatundeprajasvir Attending Unavailable Reynolds, Krishna Attending Unavailable Reynolds, Krishna Referring Unavailable Reynolds, Krishna Primary Care Unavailable Reynolds, Krishna Attending Unavailable Reynolds, Krishna Referring Unavailable Reynolds, Krishna Primary Care Unavailable Reynolds, Krishna Attending Unavailable Reynolds, Krishna Referring Unavailable Reynolds, Krishna Primary Care Unavailable Reynolds, Krishna Primary Care Unavailable Reynolds, [...] Reynolds, Krishna Primary Care Unavailable Reynolds, Krishna Primary Care Unavailable Jolanta, Regulo Referring Unavailable Ortley, Regulo Attending Unavailable Reynolds, Krishna Attending Unavailable Reynolds, Krishna Primary Care Unavailable Reynolds, Krishna Primary Care Unavailable Reynolds, [...] Referring Unavailable Reynolds, Krishna Primary Care Unavailable Allergies Allergy Classification Reported Allergen(s) Allergy Type Date of Onset Reaction(s) Facility Angiotensin 2 Receptor Blockers (ARB) (1 source) valsartan Drug Allergy 12-30-19 05 [facility] Angiotensin Converting Enzyme (ITA) Inhibitors (2 sources) Ramipril Drug Allergy 12-30-19 05 Intolerance [facility] Work Phone: metOLazone (1 source) metOLazone Drug Allergy 01-16-20 22 Rash [facility] Propofol (1 source) Propofol Drug Allergy 02-10-20 20 Other: See Comments [facility] Sulfamethoxazole / Trimethoprim (1 source) Sulfamethoxazole / Trimethoprim Drug Allergy 08-16-19 21 Hives [facility] (6 sources) acetaminophen / HYDROcodone Drug Allergy 12-20-19 13 Hives [facility] Work Phone: [phone] (18 sources) Contrast media; Translations: [RED DYE] food allergy 12-26-19 13 [facility] Work Phone: [phone] (6 sources) Hmg-Coa Reductase Inhibitors (Statins) drug allergy 12-20-19 13 muscle aches [facility] Work Phone: [phone] (12 sources) ramipril Drug Allergy 12-20-19 13 [facility] Work Phone: [phone] (12 sources) valsartan Drug Allergy 12-20-19 13 Fast [facility] Work Phone: (7 sources) HMG-CoA reductase inhibitor; Translations: [OWSFJZW-EUJ-CFY REDUCTASE INHIBITORS] Drug Intolerance 06-18-19 12 Other: See Comments [facility] Work Phone: (20 sources) Propofol; Translations: [PROPOFOL] Drug Allergy 02-10-20 20 Other: See Comments [facility] Comment on above: i went crazy (20 sources) Ramipril; Translations: [RAMIPRIL] Drug Allergy 12-30-19 05 Intolerance [facility] Work Phone: (20 sources) Seasonal allergy; Translations: [SEASONAL ALLERGIES] Allergy to substance 08-05-19 13 Other: See Comments [facility] (20 sources) Sulfamethoxazole / Trimethoprim; Translations: [SULFAMETHOXAZOLE-T RIMETHOPRIM] Drug Allergy 08-16-19 [facility] (20 sources) valsartan; Translations: [VALSARTAN] Drug Allergy 12-30-19 05 Fast HR [facility] Work Phone: (20 sources) HYDROcodone Drug Allergy 06-25-19 21 [facility] (20 sources) Iakssbe-Agd-Ctx Reductase Inhibitor; Translations: [Kqkdolx-Lok-Vww Reductase Inhibitor] Propensity to adverse reactions 06-25-19 21 Muscle aches [facility] (20 sources) HMG-CoA reductase inhibitor Drug Intolerance 06-18-19 12 Other: See Comments [facility] Work Phone: (20 sources) metOLazone; Translations: [METOLAZONE] Drug Allergy 01-16-20 22 Rash [facility] (1 source) HYDROcodone Drug Allergy 01-30-20 23 [facility] (1 source) Propofol Drug Allergy 01-30-20 23 [facility] (1 source) Ramipril Drug Allergy 01-30-20 23 [facility] (1 source) valsartan Drug Allergy 01-30-20 23 [facility] Medications Current Medications Medication Drug Class(es) Dates Sig (Normalized) Sig (Original) acetaminophen 325 mg oral tablet (20 sources) Start: 09-19-2019 Start: 09-19-2019 take 500 mg by mouth every four hours Acetaminophen Active 500 MG PO Q4H September 19, 2019 12:00am 1 ml alirocumab 75 mg/ml auto-injector (20 sources) PCSK9 Inhibitor Start: 01-24-2024 End: 08-10-2025 inject 1 mL by subcutaneous injection every other week alirocumab (PRALUENT PEN) 75 mg/mL pen Indications: 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 , Atherosclerosis of aorta , Other hyperlipidemia , Statin intolerance Inject 1 mL subcutaneously every other week. 6 mL 3 08/10/2024 08/10/2025 Active Start: 11-18-2023 inject 1 mL by subcu taneous injection every other week alirocumab (PRALUENT PEN) 150 mg/mL pen Indications: 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) , Other hyperlipidemia , Statin intolerance Inject 1 mL subcutaneously every other week. 6 mL 3 11/18/2023 Active Start: 03-12-2023 End: 11-18-2023 inject 1 mL by subcutaneous injection every other week alirocumab (PRALUENT PEN) 75 mg/mL pen Indications: 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) , Other hyperlipidemia , Statin intolerance , Atherosclerosis of aorta (HCC) Inject 1 mL under the skin every other week. 6 mL 3 03/14/2023 11/18/2023 Discontinued Comment on above: Inject 1 mL under th e skin every other week. Inject 1 mL subcutan eously every other week. ascorbic acid 1000 mg oral tablet (20 sources) Start: take 1 tablet by mouth once daily Comment on above: Take one(1) tablet d aily. aspirin 81 mg delayed release oral tablet (20 sources) Nonsteroidal Anti-inflammatory Drug Start: take 1 tablet by mouth once daily aspirin, enteric coated (ASPIRIN, ENTERIC COATED) 81 mg EC tablet Indications: Coronary artery disease involving [place] heart without angina pectoris, unspecified vessel or lesion type Take 1 tablet by mouth once daily. 12/11/2023 Active Start: 12-02-2023 End: 12-11-2023 aspirin, enteric coated (ASP IRIN, ENTERIC COATED) 325 mg EC tablet Indications: CAD (coronary artery disease) Take 81 mg by mouth once daily. 0 12/02/2023 12/11/2023 Discontinued Start: 05-30-2017 take 1 tablet by marisa once daily Start: 12-19-2012 take 1 tablet by marisa th once daily ASPIRIN 325 MG TABS One tablet by mouth daily ASPIRIN [id number] Elisabeth Veliz RN Start: 11-16-2010 take 1 [...] take 1 tablet by mouth once daily take 1 tablet by mouth once antoine [...] on above: Take 1 capsule by mo [facility] three times daily for 7 days. cholecalciferol 0.05 mg oral capsule (20 sources) Vitamin D Start: take 1 capsule by mouth once daily doxycycline monohydrate 100 mg oral tablet (4 sources) Tetracycline-cla ss Drug Start: 3 End: 3 take 1 tablet by mouth twice daily [...] above: Take 1 tablet by marisa twice daily for 10 days. Take 1 tablet by marisa two times a day for 7 days. Fish Oil-[place]-3 Fatty Acids (FISH OIL OMEGA 3-6-9) 300-1,000 mg CpDR (20 sources) Start: 2 Fish Oil-[place]-3 Fatty Acids (FISH OIL OMEGA 3-6-9) 300-1,000 mg CpDR Indications: Other and unspecified hyperlipidemia Take 3000 mg daily. 0 09/17/2011 Active Comment on above: Take 3000 mg daily. furosemide 80 mg oral tablet (20 sources) Loop Diuretic Start: 1 End: 4 take 1 tablet by mouth twice daily Start: 01-07-2020 End: 09-07-2020 take 1 tablet by mouth twice daily Furosemide 40 mg tablet Discontinued 40 mg PO TWICE A DAY 180 3 January 15, 2020 10:08am September 07, 2020 2:49pm Start: 12-29-2019 End: 01-07-2020 take 1 tablet by mouth once daily Furosemide 40 mg tablet Discontinued 40 mg PO DAILY 90 4 December 29, 2019 3:33pm January 07, 2020 [...] neuropathy, with long-term current use of insulin ([facility]) Take 1 capsule by mouth three times [...] current use of insulin (HCC) Inject 25 Units subcutaneously three times a [...] Each 3 03/28/2023 03/07/2024 Discontinued Start: 11-02-2022 Start: 07-10-2021 End: 06-01-2022 insulin aspart U-100 (NOVOLO G FLEXPEN U-100 INSULIN) 100 unit/mL (3 mL) Indications: Type 2 diabetes mellitus with diabetic neuropathy, with long-term current use of insulin ([facility]) Inject 25 units 3 times a day with meals PLUS Sliding scale as based on pre meal blood sugar as directed (~ 68 units daily) 25 Each 3 06/01/2022 Active Start: 05-26-2021 End: 07-10-2021 insulin aspart U-100 (NOVOLO G FLEXPEN U-100 INSULIN) 100 unit/mL (3 mL) Indications: Type 2 diabetes mellitus with diabetic neuropathy, with long-term current use of insulin ([facility]) Inject 20 units 3 times a day [...] sugar as directed (~ 68 units daily) metoprolol tartrate 50 mg oral tablet (20 sources) beta-Adrenergic Veronique Start: 11-02-2022 take 1 tablet by mouth twice daily Start: 10-01-2022 End: 05-28-2024 take 1 tablet [...] Start: 02-23-2013 take 2 tablets by mo uth twice daily METOPROLOL TARTRATE 25 MG TABS Two tablets by mouth twice daily METOPROLOL TARTRATE [id number] Son Deluna MD Start: 02-23-2013 take 1 tablet by marisa th twice daily as needed, then take 1 tablet by mouth once daily as needed METOPROLOL TARTRATE 25 MG TABS One tablet by mouth twice daily and one extra daily as needed METOPROLOL TARTRATE [id number] Son Deluna MD Comment on above: Take 1 tablet by marisa th twice daily. Additional dose of 25 mg may be taken by patient per day for fast heart rate. TAKE ONE TABLET BY M OUTH TWICE A DAY . MAY TAKE ADDITIONAL 25MG (1/2 TABLET) PER DAY FOR FAST HEART RATE DIRECTED Take 1 tablet by marisa th twice daily. Take 1 tablet by marisa th three times daily. Take 1 tablet by marisa th three times a day. MULTIVITAMIN TAB (20 [...] 12:00am Multivitamin With Minerals 1 EACH tablet (9 sources) Start: 09-15-2019 take 1 tablet by marisa th twice daily Start: 09-15-2019 take 1 tablet by marisa th twice daily Multivitamin With Minerals 1 EACH tablet Active 1 NMA PO TWICE A DAY September 15, 2019 12:00am SUPPLEMENT Start: 09-15-2019 take 1 tablet by marisa th twice daily Multivitamin With Minerals 1 EACH tablet Active 1 NMA PO TWICE A DAY September 15, 2019 12:00am nitroglycerin 0.4 mg subling ual tablet (20 sources) Nitrate Vasodilator Start: 05-30-2017 End: 12-11-2023 Start: 05-30-2017 Nitroglycerin (Nitrostat) 0.4 mg tablet, sublingual Active 0.4 MG SL Q5M May 30, 2017 1:00am Start: 12-19-2012 NITROSTAT 0.4 MG SUBL 1 tablet under tongue every 5 min up to 3 X NITROGLYCERIN [id number] Son Deluna MD Comment on above: Dissolve 1 tablet un chidi the tongue every 5 minutes as needed for chest pain. IF NO PAIN RELIEF WITH 2ND DOSE, CALL 911 [place]-3 Fatty Acids (Fish Oil Concentrate) 1,000 mg capsule (20 sources) Start: 05-25-2019 [place]-3 Fatty Acids (Fish Oil Concentrate) 1,000 mg capsule Active 3000 MG PO TWICE A DAY May 25, 2019 3:40pm Start: 05-25-2019 Start: 05-25-2019 [place]-3 Fatty Acids (Fish Oil Concentrate) 1,000 mg capsule Active 3000 mg PO TWICE A DAY May 25, 2019 1:00am SUPPLEMENT Start: 05-25-2019 [place]-3 Fatty Acids (Fish Oil Concentrate) 1,000 mg capsule Active 3000 mg PO TWICE A DAY May 25, 2019 1:00am Start: 05-25-2019 [place]-3 Fatty Acids (Fish Oil Concentrate) 1,000 mg capsule Active 3000 MG PO TWICE A DAY May 25, 2019 12:00am Start: 05-25-2019 [place]-3 Fatty Acids (Fish Oil Concentrate) 1,000 mg [...] One tablet by mouth daily AMIODARONE HCL [id number] Son Deluna MD Start: 12-25-2012 End: 01-21-2013 AMIODARONE HCL 400 MG TABS 1 /2 tablet tid for 2 weeks then bid for 2 weeks then daily (the 200 mg tablets are red and pt is allergic to red dye) AMIODARONE HCL [id number] Mojgan Obando RN Start: 12-25-2012 AMIODARONE HCL 400 MG TABS 1/2 tablet daily (the 200 mg tablets are red and pt is allergic to red dye) AMIODARONE HCL [id number] Mojgan Obando RN amLODIPine 10 mg oral tablet (20 sources) Dihydropyridine Calcium Channel Veronique Start: 01-29-2023 take 0.5 tablet by mouth once daily, [...] (Course of therapy completed) Start: 06-24-2020 End: 01-29-2023 take 5 mg [...] mg tablet Discontinued 5 mg PO daily 90 3 May 25, 2019 5:29pm September 15, 2019 1:28pm Comment on above: Take 1 tablet by marisa th once daily. Take 0.5 tablets by mouth once daily. atropine sulfate 0.0194 mg / hyoscyamine sulfate 0.1037 mg / PHENobarbital 16.2 mg / scopolamine hydrobromide 0.0065 mg oral tablet (20 sources) Anticholinergic, Cholinergic Muscarinic Antagonist Start: 11-25-2019 End: 09-07-2020 Zvxqbjfgq-Slwvvo-Fubwhy ne-Scop () 16.2-0.1037 -0.0194 mg tablet Discontinued 1 {tbl} PO THREE TIMES A DAY as needed for Abdominal Pain November 25, 2019 12:00am September 07, 2020 2:52pm administer 30 minutes before meals Start: 12-19-2012 End: 02-13-2013 take 1 tablet by mouth three times daily as needed 16.2 MG TABS One tablet by mouth three times daily as needed BELLADONNA ALK-PHENOBARBITAL [id number] Elisabeth Veliz RN BELLADONNA ALK-PHENOBARBITAL TABS (6 sources) Start: 05-21-2014 BELLADONNA ALK-PHENOBARBITAL TABS as needed for heartburn BELLADONNA ALK-PHENOBARBITAL TABS Son Deluna MD clopidogrel 75 mg oral tablet (20 sources) [id number] Platelet Inhibitor Start: 12-16-2019 End: 05-28-2024 take 1 tablet by mouth once daily Clopidogrel 75 mg tablet Discontinued 75 mg PO DAILY 90 4 December 29, 2019 3:33pm September 07, 2020 2:49pm For Cardiac CAth Comment on above: Take 1 tablet by marisa th once daily. TAKE ONE TABLET BY M OUTH EVERY DAY 24 hr dilTIAZem hydrochloride 120 mg extended release oral capsule (12 sources) Calcium Channel Veronique Start: 12-19-2012 End: 02-13-2013 take 1 tablet by mouth once daily DILTIAZEM HCL ER 120 MG [id number] One tablet by mouth daily DILTIAZEM HCL [id number] Son Deluna MD doxazosin 1 mg oral tablet (20 sources) alpha-Adrenerg ic Veronique Start: 11-02-2022 End: 01-29-2023 take 1 [...] Elderberry Fruit And Flower 1 EACH capsule (9 sources) Start: 06-24-2020 End: 09-07-2020 take 1 capsule by mouth once daily Elderberry Fruit And Flower 1 EACH capsule Discontinued 1 NMA PO DAILY June 24, 2020 12:00am September 07, 2020 2:50pm fish oil (12 sources) Start: 12-19-2012 take 1 capsule by mouth three times daily FISH OIL CAPS One capsule by mouth three times daily OMEGA-3 FATTY ACIDS CAPS [id number] Son Deluna MD Start: 12-19-2012 take 1 tablet by marisa th once daily FISH OIL CAPS One tablet by mouth daily OMEGA-3 FATTY ACIDS CAPS [id number] Elisabeth Veliz RN flash glucose scanning reade [...] with long-term current use of insulin (HCC) Take 1 tablet by mouth daily with breakfast AND 1 tablet daily before dinner. 180 tablet 2 08/29/2020 09/05/2020 Discontinued Start: 02-15-2020 End: 07-28-2020 take 1 tablet by mouth once daily at breakfast, then take 0.5 tablet by mouth once daily before dinner glimepiride (AMARYL) 4 mg tablet Indications: Type 2 diabetes mellitus with diabetic neuropathy, with long-term current use of insulin (HCC) Take 1 tablet by mouth daily with [...] DM Start: 12-25-2012 take 1 tablet by marisa th twice daily GLIMEPIRIDE 4 MG TABS One tablet by mouth twice daily GLIMEPIRIDE [id number] Son Deluna MD hydroCHLOROthiazide 12.5 mg / [...] One tablet by mouth twice daily LISINOPRIL-HYDROCHLOROTHIAZIDE [id number] Son Deluna MD Start: 12-19-2012 take 0.5 tablet by mouth once daily LISINOPRIL-HYDROCHLOROTHIAZIDE 20-12.5 M G TABS One-half tablet by mouth daily LISINOPRIL-HYDROCHLOROTHIAZIDE [id number] Son Deluna MD 3 ml insulin degludec 100 unt/ml pen injector (20 sources) Insulin Analog Start: 01-29-2023 Insulin Deglud ec (Tresiba Flextouch U-100) 100 unit/mL (3 mL) insulin pen Discontinued 114 U SC AT BEDTIME January 29, 2023 1:00am Start: 09-08-2021 End: 11-04-2024 insulin degludec (TRESIBA FL EXTOUCH U-200) 200 [...] 120 Units sub cutaneously daily at bedtime. Insulin Degludec (Tresiba Flextouch U-100) 100 unit/mL (3 mL) insulin pen (15 sources) Start: 01-29-2023 Insulin Degludec (Tresiba Flextouch U-100) 100 unit/mL [...] T/ML SOLN take as directed INSULIN GLARGINE [id number] Elisabeth Veliz RN metFORMIN hydrochloride 500 mg [...] Start: 12-19-2012 take 2 tablets by mo uth in the morning, then take 3 tablets by mouth in the evening METFORMIN HCL 500 MG TABS Two tablets by mouth in am, Three tablets by mouth in pm METFORMIN HCL [id number] Elisabeth Veliz RN metOLazone 2.5 mg oral [...] 1 tablet by marisa th once daily. MULTIPLE VITAMIN (6 sources) Start: [...] mouth twice daily (STOP) SOTALOL HCL AF [id number] Mojgan Obando RN Start: 12-25-2012 take 1 tablet by marisa th twice daily SOTALOL HCL (AF) 80 MG TABS One tablet by mouth twice daily (STOP) SOTALOL HCL AF [id number] Son Deluna MD Start: 12-19-2012 take 1 tablet by marisa th twice daily SOTALOL HCL (AF) 80 MG TABS One tablet by mouth twice daily SOTALOL HCL AF [id number] Elisabeth Veliz RN sulfamethoxazole 800 mg / trimethoprim 160 [...] mouth twice daily as needed TRAMADOL HCL [id number] Son Deluna MD verapamil hydrochloride 180 mg oral capsule (20 sources) Calcium Channel Veronique Start: 05-28-2013 take 1 tablet by mouth twice daily VERAPAMIL HCL ER 180 MG CR-TABS One tablet by mouth twice daily (on HOLD) VERAPAMIL HCL [id number] Son Deluna MD Start: 05-11-2013 take 1 tablet by marisa th twice daily VERAPAMIL HCL 120 MG TABS One tablet by mouth twice daily VERAPAMIL HCL [id number] Son Deluna MD Start: 02-13-2013 take 1 tablet by marisa th once daily VERAPAMIL HCL 120 MG TABS One tablet by mouth daily VERAPAMIL HCL [id number] Son Deluna MD warfarin sodium 5 mg oral tablet (20 sources) Vitamin K Antagonist Start: 08-25-2014 End: 09-28-2014 COUMADIN 5 MG TABS Two tablets by mouth on Sat / Sun WARFARIN SODIUM [id number] Son Deluna MD Start: 12-19-2012 End: 09-28-2014 COUMADIN 5 MG TABS One and 1 /2 tablet by mouth M-F WARFARIN SODIUM [id number] Fatimah Nguyen RN Problems Active Problems Problem Classification Problem Date Documented Date Episodic/Chronic Acute and unspecified renal failure (20 sources) Injury of kidney; Translations: [Acute kidney failure, unspecified] Onset: 11-06-2019 Resolved: 06-21-2020 12-29-2019 Episodic Administrative/social admission (20 sources) Counseling procedure with [...] [Chronic kidney disease, stage 3a] Onset: 08-18-2024 Chronic ulcer of skin (20 sources) Superficial skin ulcer of lower limb; Translations: [Non-pressure chronic ulcer of unspecified part of right lower leg limited to breakdown of skin] Onset: 04-24-2018 Resolved: 07-24-2018 10-01-2022 Chronic Congestive heart failure; nonhypertensive (20 sources) Chronic diastolic heart failure; Translations: [Chronic diastolic (congestive) heart failure] Onset: 03-31-2020 07-02-2020 Chronic Coronary atherosclerosis and other heart disease (20 sources) Coronary atherosclerosis; Translations: [Atherosclerotic heart disease of [place] coronary artery with other forms of angina pectoris] Onset: 10-07-2007 Resolved: 07-02-2020 07-02-2020 Chronic Coronary atherosclerosis and other heart disease (20 sources) Stented coronary artery; Translations: [Presence of coronary angioplasty implant and graft] Onset: 06-23-2020 07-01-2020 Episodic Comment on above: PCI/stent to the LM and LAD per Dr. Stover @[facility] 07/01/20; PTCA with DILIA to CFX 2nd marginal 06/30 PTCA with DILIA to CFX 2nd marginal paroxysmal atrial fib 06/30 Diabetes mellitus with complications (20 sources) Type 2 diabetes mellitus; Translations: [Type 2 diabetes mellitus with diabetic neuropathy, unspecified] Onset: 01-30-2006 Resolved: 10-06-2020 Chronic Diabetes mellitus without complication (20 sources) Diabetes mellitus; Translations: [Uncontrolled diabetes mellitus] Onset: 12-19-2012 Resolved: 06-07-2023 12-19-2012 Chronic Disorders of lipid metabolism (20 sources) Hyperlipidemia; Translations: [Other hyperlipidemia] Onset: 12-19-2012 12-19-2012 Chronic Esophageal disorders (20 sources) Gastroesophageal reflux disease; Translations: [Gastro-esophageal reflux disease without esophagitis] 08-18-2020 Chronic Essential hypertension (20 sources) Hypertensive disorder; Translations: [Essential hypertension] Onset: 12-19-2012 12-19-2012 Chronic Fluid and electrolyte disorders (20 sources) Hyperkalemia, diminished renal excretion; Translations: [Hyperkalemia] 10-01-2019 Episodic Gout and other crystal arthropathies (2 sources) Chronic gout, unspecified, with tophus (tophi); Translations: [Tophaceous gout] Onset: 01-02-2025 Chronic Hyperplasia of prostate (20 sources) Benign prostatic hyperplasia; Translations: [Benign prostatic hyperplasia without lower urinary tract symptoms] Onset: 05-31-2014 05-31-2014 Chronic Hypertension with complications and secondary hypertension (20 sources) Hypertensive heart disease with congestive heart failure; Translations: [Hypertensive heart disease with heart failure] Onset: 05-30-2022 05-30-2022 Chronic Immunizations and screening for infectious disease (4 sources) Vaccination needed; Translations: [Encounter for immunization] Episodic Infective arthritis and osteomyelitis (except that caused by tuberculosis or sexually transmitted disease) (20 sources) Osteomyelitis of forefoot; Translations: [Osteomyelitis, unspecified] Onset: 09-17-2019 Resolved: 06-21-2020 10-01-2019 Chronic Osteoarthritis (20 sources) Degenerative joint disease involving multiple joints; Translations: [Polyosteoarthritis, unspecified] 01-23-2010 Chronic Other aftercare (20 sources) Long-term current use of drug therapy; Translations: [Other dedicated intermodal truck driver (current) drug therapy] 05-30-2017 Episodic Other and ill-defined heart disease (20 sources) Left atrial enlargement; Translations: [Cardiomegaly] 05-30-2017 Chronic Other and ill-defined heart disease (10 sources) Cardiomegaly; Translations: [Cardiomegaly] 03-19-2023 Chronic Other connective tissue disease (15 sources) Swelling of right lower limb; Translations: [Other specified soft tissue disorders] 03-19-2023 Episodic Other connective tissue disease (10 sources) Other specified soft tissue disorders; Translations: [Swelling of limb] 03-19-2023 Episodic Other diseases of veins and lymphatics (20 sources) Peripheral venous insufficiency; Translations: [Venous insufficiency (chronic) (peripheral)] 10-17-2016 Episodic Other lower respiratory disease (2 sources) Other forms of dyspnea; Translations: [ROBIN (dyspnea on exertion)] Onset: 08-13-2022 Episodic Other nervous system disorders (1 source) Lesion of ulnar nerve, right upper limb; Translations: [Ulnar neuropathy of right upper extremity] Onset: 01-02-2025 Chronic Other nervous system disorders (16 sources) Impairment of balance; Translations: [Other abnormalities [...] calories; Translations: [Morbid obesity] 03-19-2023 Chronic Other screening for suspected conditions (not mental disorders or infectious disease) (20 sources) Cardiovascular stress test abnormal; Translations: [Abnormal result of other cardiovascular function study] Resolved: 08-19-2014 Episodic Other skin disorders (5 sources) Callosity; Translations: [...] Onset: 03-11-2023 03-13-2023 Chronic Residual codes; unclassified (20 sources) Obstructive sleep apnea syndrome; Translations: [Obstructive sleep apnea (adult) (pediatric)] Onset: 08-13-2013 Resolved: 08-19-2014 03-10-2020 Chronic Residual codes; unclassified (10 sources) Obstructive sleep apnea (adult) (pediatric); Translations: [Obstructive sleep apnea (adult)(pediatric)] 03-19-2023 Chronic Residual codes; unclassified (20 sources) Edema of lower extremity; Translations: [Localized edema] 11-06-2022 Episodic Residual codes; unclassified (20 sources) Localized edema; Translations: [Edema] 11-22-2022 Episodic Residual codes; unclassified (15 sources) Edema of right lower leg; Translations: [Localized edema] 03-19-2023 Episodic Residual codes; unclassified (15 sources) Tobacco user; Translations: [Tobacco use] 03-19-2023 Episodic Residual codes; unclassified (15 sources) History of decompression of ulnar nerve; [...] source) Pain; Translations: [Pain, unspecified] 09-05-2020 Episodic Screening and history of mental health and substance abuse codes (20 sources) Tobacco use and exposure - finding; Translations: [Personal history of nicotine dependence] Onset: 05-31-2014 Resolved: 08-19-2014 08-19-2014 Episodic Skin and subcutaneous tissue infections (20 sources) Infection of toe ; Translations: [Local infection of the skin and subcutaneous tissue, unspecified] 05-26-2020 Episodic Unclassified (20 sources) Body mass index (BMI) 37.0-37.9, adult; Translations: [Body mass index (BMI) 40.0-44.9, adult] Onset: 12-25-2012 11-16-2014 Chronic Unclassified (6 sources) Long-term drug therapy; Translations: [Other half-way (current) drug therapy] Onset: 05-25-2015 05-25-2015 Unclassified [...] Classification Problem Date Documented Da te Episodic/Chronic Calculus of urinary tract (20 sources) Kidney stone; Translations: [Calculus of kidney] Onset: 10-17-2016 Resolved: 04-24-2018 04-24-2018 Episodic Genitourinary symptoms and ill-defined conditions (20 sources) Blood in urine; Translations: [Hematuria, unspecified] Onset: 05-31-2014 Resolved: 08-19-2014 08-19-2014 Episodic Other aftercare (20 sources) Long-term current use of anticoagulant; Translations: [custodial (current) use of anticoagulants] Onset: 05-31-2014 Resolved: 08-19-2014 08-19-2014 Episodic Other aftercare (1 source) 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; Translations: [Type 2 diabetes mellitus with diabetic neuropathy, with long-term current use of insulin (HCC)] Onset: 03-15-2021 Episodic Other bone disease and musculoskeletal deformities [...] (peripheral); Translations: [Venous (peripheral) insufficiency, unspecified] Onset: 10-17-2016 Resolved: 11-30-2020 03-19-2023 Episodic Other lower respiratory disease (6 sources) Dyspnea; Translations: [Shortness of breath] Onset: 02-06-2017 02-06-2017 Episodic Other lower respiratory disease (20 sources) Dyspnea on exertion; Translations: [Dyspnea, unspecified] Onset: 11-06-2019 11-06-2019 Episodic Other male genital disorders (20 sources) Acquired hydrocele; Translations: [Hydrocele, unspecified] Onset: 07-04-2023 Resolved: 12-11-2023 07-04-2023 Episodic Other male genital disorders (20 sources) Cyst of testis; Translations: [Benign cyst of testis] Onset: 07-26-2023 Resolved: 12-11-2023 07-26-2023 Episodic Residual codes; unclassified (20 sources) Memory impairment; Translations: [Other amnesia] Onset: 08-13-2013 08-13-2013 Episodic Residual codes; unclassified (20 sources) Other specified health status; Translations: [Other drug allergy] Onset: 03-31-2020 03-31-2020 Episodic Residual codes; unclassified (20 sources) Suspected clinical finding; Translations: [Contact with and (suspected) exposure to asbestos] Resolved: 08-19-2014 08-19-2014 Episodic Unclassified (20 sources) Body mass index (BMI) 27.0-27.9, adult; Translations: [Family history of stroke] Onset: 12-25-2012 Resolved: 11-16-2014 11-16-2014 Episodic Results Test Name Value Interpretation Reference Range Facility Basic Metabolic Profile (BMP )on 01-15-2025 BUN/CRE 18.2 RATIO Normal 01-11 [facility] Comment on above: Order Comment: JUNIE Valdez BMP AND URIC TO Performed By: #### L 503.7505, L501.1400, L500.2500 #### [facility] [address] [place], [address] Calcium [Mass/Vol] 9.6 mg/dL Normal 7.6-11.0 [facility] Comment on above: Order Comment: SEN D BMP AND URIC TO Performed By: #### L 503.7505, L501.1400, L500.2500 #### [facility] [address] [place], [address] Chloride [Moles/Vol] 102 mmol/L Normal 98-108 [facility] Comment on above: Order Comment: SEN D BMP AND URIC TO Performed By: #### L 503.7505, L501.1400, L500.2500 #### [facility] [address] [place], [address] CO2 [Moles/Vol] 26.2 mmol/L Normal 21.0-32.0 [facility] Comment on above: Order Comment: SEN D BMP AND URIC TO Performed By: #### L 503.7505, L501.1400, L500.2500 #### [facility] [address] [place], [address] Creatinine [Mass/Vol] 1.21 mg/dL High 0.70-1.20 [facility] Comment on above: Order Comment: SEN D BMP AND URIC TO Performed By: #### L 503.7505, L501.1400, L500.2500 #### [facility] [address] [place], [address] GAP 12 Normal 5-15 [facility] Comment on above: Order Comment: SEN D BMP AND URIC TO Performed By: #### L 503.7505, L501.1400, L500.2500 #### [facility] [address] [place], [address] GFR/1.73 sq M.predicted among non-blacks MDRD (S/P/Bld) [Vol rate/Area] 63 mL/min/{1.73_m2} Normal >60 [facility] Comment on above: Order Comment: SEN D BMP AND URIC TO Result Comment: mL/m in/1.73m2 CKD-EPI Creatinine Equation (2020) Performed By: #### L 503.7505, L501.1400, L500.2500 #### [facility] [address] [place], [address] Glucose [Mass/Vol] 112 mg/dL High 70-99 [facility] Comment on above: Order Comment: SEN D BMP AND URIC TO Performed By: #### L 503.7505, L501.1400, L500.2500 #### [facility] [address] [place], [address] Potassium [Moles/Vol] 4.8 mmol/L Normal 3.3-5.1 [facility] Comment on above: Order Comment: SEN D BMP AND URIC TO Result Comment: Hemo lysis present, Results??could be affected. ?? Performed By: #### L 503.7505, L501.1400, L500.2500 #### [facility] [address] [place], [address] Sodium [Moles/Vol] 140 mmol/L Normal 133-145 [facility] Comment on above: Order Comment: SEN D BMP AND URIC TO Performed By: #### L 503.7505, L501.1400, L500.2500 #### [facility] [address] [place], [address] Urea nitrogen [Mass/Vol] 22 mg/dL High 4-19 [facility] Comment on above: Order Comment: SEN D BMP AND URIC TO Performed By: #### L 503.7505, L501.1400, L500.2500 #### [facility] [address] [place], [place], [address] Pro- Brain NATRIURETIC PEPTI Manisha 01-15-2025 Natriuretic peptide B (Bld) [Mass/Vol] 259 pg/mL Normal <=900 [facility] Comment on above: Order Comment: JUNIE Valdez BMP AND URIC TO Result Comment: Hear t Failure Unlikely: < 300 pg/mL Heart Failure Likely < 50 Years: > 450 pg/mL 50-75 Years: > 900 pg/mL >75 Years: > 1800 pg/mL Performed By: #### L 503.7505, L501.1400, L500.2500 #### [facility] [address] [place], [address] Uric Acidon 01-15-2025 URIC 10.7 mg/dL High 3.5-7.2 [facility] Comment on above: Order Comment: JUNIE Valdez BMP AND URIC TO Result Comment: The drugs N-Acetylcysteine and Metamizole may falsely depress this assay. Performed By: #### L 503.7505, L501.1400, L500.2500 #### [facility] [address] [place], [address] [facility] 01-07-2025 [facility] Telephone (INT[place] [place]) MIGUELANGEL MOYA ([id number]) 1950 M Date Time Provider Department 01/07/25 KRISHNA REYNOLDS INTWS During your visit today, we recorded the following information about you: Elsa Marin LPN 01/07/2025 10:03 AM Signed Patient Jessica calling asking for chest xray results please. She does not have my chart. She is frustrated it takes so long to get an answer on things. Please advise 01/05/2025 3:21 PM - Radiology, [place] In Impression IMPRESSION: No acute radiographic abnormality. Revenue Audit Clerk: ASHUTOSH Transcribe Date/Time: Jan 05 2025 3:15P Dictated by : HUMZA PEREZ MD This examination was interpreted and the report reviewed and electronically signed by: HUMZA PEREZ MD on Jan 05 2025 3:18PM EST Results-Findings * * *Final Report* * * DATE OF EXAM: Jan 02 2025 11:57AM WOX 5291 - XR CHEST 2V FRONTAL/LAT / PROCEDURE REASON: ROBIN (dyspnea on exertion) * * * * Physician Interpretation * * * * EXAMINATION: CHEST RADIOGRAPH (2 VIEW FRONTAL AND LATERAL) CLINICAL HISTORY: ROBIN (dyspnea on exertion) MQ: XC2_6 EXAM DATE/TIME: 01/02/2025 11:57 AM COMPARISON: 06/21/2020 CT 04/19/2020 RESULT: Lines, tubes, and devices: None. Lungs and pleura: No consolidation. No lung mass. No pleural effusion. No pneumothorax. Cardiomediastinal silhouette: Normal cardiomediastinal silhouette. Bones and soft tissues: Stable degenerative changes. Stable mild compression deformity of T12 and L1 Krishna Reynolds MD 01/07/2025 12:37 PM Signed Normal chest X-ray. Continue medications, and labs as ordered. Elsa Marin LPN 01/07/2025 12:48 PM Signed Phoned patient Jessica and went over results, notes from Dr Reynolds with understanding. Allergies As of Date: 01/07/2025 Noted Allergy Reaction METOLAZONE 01/15/2022 2 - Rash ALTACE (RAMIPRIL) 12/29/2004 5 - Intolerance BACTRIM (SULFAMETHOXAZOLE-TR IMETH*08/15/2020 4 - Hives DIOVAN (VALSARTAN) 12/29/2004 PROPOFOL 02/10/2020 14 - Other: See Comments Comments: agitation RAMIPRIL 11/05/2007 SEASONAL ALLERGIES 08/04/2012 14 - Other: See Comments [id number] REDUCTASE INHIBIT*06/18/2011 14 - Other: See Comments Comments: Muscle aches Date Reviewed: 01/02/2025 Reviewed by: Radhika Frazier MA - Fully Assessed Reason for Visit: chest xray results [Other] Prescriptions as of 01/07/2025 - furosemide (LASIX) 80 mg tablet Take 1 tablet by mouth two times a day. Three times per day as directed PRN - spironolactone (ALDACTONE) 50 mg tablet Take 1 tablet by mouth once daily. - insulin degludec (TRESIBA FLEXTOUCH U-200) 200 unit/mL (3 mL) injection Inject 120 Units subcutaneously daily at bedtime. - insulin aspart U-100 (NOVOLOG FLEXPEN U-100 INSULIN) 100 unit/mL (3 mL) pen Inject 25 Units subcutaneously three times a day before meals. Sliding scale 3 times daily. (80 units daily max) - amLODIPine (NORVASC) 2.5 mg tablet Take 1 tablet by mouth once daily. - alirocumab (PRALUENT PEN) 75 mg/mL pen Inject 1 mL subcutaneously every other week. - metoprolol tartrate, short acting, (LOPRESSOR) 50 [...] RELIEF WITH 2ND DOSE, CALL 911 - aspirin, enteric coated (ASPIRIN, ENTERIC COATED) 81 mg EC tablet Take 1 tablet by mouth once daily. - Insulin [place], Disposable, 32 gauge x 5/32 Use with insulin 4 times a day. Dx: E11.40; Z79.4 - blood sugar diagnostic (BLOOD GLUCOSE TEST) test strip Test blood sugar(s) 4-5 times daily Dx: Type 2 DM - Uncontrolled E11.65 Insulin: Yes - BIOTIN ORAL Take 1 tablet by mouth once daily. - Fish Oil-[place]-3 Fatty Acids (FISH OIL OMEGA 3-6-9) 300-1,000 mg CpDR Take 3000 mg daily. - Lancets (ONE TOUCH ULTRASOFT LANCETS) Misc lancets twice daily. Use as instructed ( may dispense Deuca brand) - MULTIVITAMIN TAB Take one(1) tablet daily. - VITAMIN C 1,000 MG TAB Take one(1) tablet daily. Problem List As Of Date 01/07/2025 Noted Resolved GENERAL OSTEOARTHROSIS [M15.9] ESOPHAGEAL REFLUX [K21.9] Venous (peripheral) insufficiency [I87.2] Personal history of contact with and (suspected* 08/19/2014 Type 2 diabetes mellitus with diabetic neuropat* Class 3 severe obesity with body mass index (BM* Nonspecific abnormal results of liver function * 08/19/2014 Other hyperlipidemia [E78.49] Essential hypertension [I10] Diabetic polyneuropathy (HCC) [E11.42] 01/30/2006 04/24/2018 Coronary artery disease of [place] artery of thai*10/07/2007 Persistent atrial fibrillation (HCC) [I48.19] (more content not included)... Normal [facility] 01-04-2025 CNPN Telephone (ALVIN) MIGUELANGEL MOYA ([id number]) 1950 M Date Time Provider Department 01/04/25 REGULO STOVER During your visit today, we recorded the following information about you: Samantha Medellin MA 01/04/2025 8:36 AM Signed Patients called in stating patient was feeling Shortness of Breath and was seen by PCP over the weekend. PCP heard crackles and did a CXR. He increased his aldactone to 50 mg and the spouse gave extra lasix as she has been instructed to do. He has pitting edema in the lower extremities and has increased Shortness of Breath. She asked for a referral to Vascular, but she is wondering if it is worth it to go for an evaluation to see if anything can be done with the valves in his legs. Spouse would like a call back or an appointment in the office to discuss. She can be reached back at [phone]. Yoselin Hilario RN 01/07/2025 11:58 AM Signed Called and left VM asking Jessica to call back with update. Xray results: XR CHEST 2V FRONTAL/LAT (01/02/2025 11:57 AM) YAMILETH 08/10/24 NOV 03/22/25 Last Stress Test 10/19/24 Yoselin Hilario, RN Yoselin Hilario RN 01/07/2025 1:15 PM Signed Regulo Stover MD You45 minutes ago (12:25 PM) There will be little benefit to vascular surgery consult. I agree with the increased dose of lasix. If he is not losing 2-3 lbs per day then he may need to go to the hospital for IV diuresis. I put in for a BMP and BNP for early next week Thanks Josefina Tejada MA 01/08/2025 3:09 PM Signed Left detailed message to inform. Pt or to call back with any questions. Advised of lab orders. BRANDAN Guy Amy M, MA 01/08/2025 4:52 PM Signed called back. Message from Dr. Stover given. Patient gets his lab work completed at [facility]. Orders faxed to [facility] at their request. Patient does have appointment already scheduled with Dr. Sanabria, vascular surgeon, on 01/19/2025. They would like to keep that appointment. She advised that Dr. Reynolds adjusted his aldactone dosage earlier this week. Josefina Ballard MA 01/14/2025 10:54 AM Signed Checked [facility] system for lab results. Nothing has been drawn as of today. BRANDAN Guy Laurie, MA 01/15/2025 4:44 PM Signed Labs drawn today 01/15. Pending. Will check on Saturday. Josefina Ballard MA Allergies As of Date: 01/04/2025 Noted Allergy Reaction METOLAZONE 01/15/2022 2 - Rash ALTACE (RAMIPRIL) 12/29/2004 5 - Intolerance BACTRIM (SULFAMETHOXAZOLE-TR IMETH*08/15/2020 4 - Hives DIOVAN (VALSARTAN) 12/29/2004 PROPOFOL 02/10/2020 14 - Other: See Comments Comments: agitation RAMIPRIL 11/05/2007 SEASONAL ALLERGIES 08/04/2012 14 - Other: See Comments [id number] REDUCTASE INHIBIT*06/18/2011 14 - Other: See Comments Comments: Muscle aches Date Reviewed: 01/02/2025 Reviewed by: Radhika Frazier MA - Fully Assessed Reason for Visit: Patient Question [1477] [facility] [Other] Primary Visit Diagnosis:ROBIN (dyspnea on exertion) [R06.09] Other Visit Diagnosis:Chronic diastolic congestive heart failure (HCC) [I50.32] Order(s):BASIC METABOLIC PANEL [SQBMP] Order #: [id number] FUTURE NT PRO BNP [SQNTBNP] Order #: [id number] FUTURE Prescriptions as of 01/15/2025 - furosemide (LASIX) 80 mg tablet Take 1 tablet by mouth two times a day. Three times per day as directed PRN - spironolactone (ALDACTONE) 50 mg tablet Take 1 tablet by mouth once daily. - insulin degludec (TRESIBA FLEXTOUCH U-200) 200 unit/mL (3 mL) injection Inject 120 Units subcutaneously daily at bedtime. - insulin aspart U-100 (NOVOLOG FLEXPEN U-100 INSULIN) 100 unit/mL (3 mL) pen Inject 25 Units subcutaneously three times a day before meals. Sliding scale 3 times daily. (80 units daily max) - amLODIPine (NORVASC) 2.5 mg tablet Take 1 tablet by mouth once daily. - alirocumab (PRALUENT PEN) 75 mg/mL pen Inject 1 mL subcutaneously every other week. - metoprolol tartrate, short acting, (LOPRESSOR) 50 [...] RELIEF WITH 2ND DOSE, CALL 911 - aspirin, enteric coated (ASPIRIN, ENTERIC COATED) 81 mg EC tablet Take 1 tablet by mouth once daily. - Insulin [place], Disposable, 32 gauge x 5/32 Use with insulin 4 times a day. Dx: E11.40; Z79.4 - blood sugar diagnostic (BLOOD GLUCOSE TEST) test strip Test blood sugar(s) 4-5 times daily Dx: Type 2 DM - Uncontrolled E11.65 Insulin: Yes - BIOTIN ORAL Take 1 tablet by mouth once daily. - Fish Oil-Bogota-3 Fatty Acids (FISH OIL OMEGA 3-6-9) 300-1,000 mg CpDR Take 3000 mg daily. - Lancets (ON (more content not included)... Normal [facility] CNOVon 01-02-2025 CNOV Office Visit (INTMWS) MIGUELANGEL MOYA ([id number]) 1950 M Date Time Provider Department 01/02/25 10:40 AM KRISHNA REYNOLDS INTMWS During your visit today, we recorded the following information about you: Pulse Respiration Blood pressure Weight 80/minute 16/minute 128/82 132 kg Krishna Reynolds MD 01/02/2025 12:20 PM Signed Subjective Miguelangel Moya is a 74 year old male here with Jessica. He had a negative stress test less than 3 months ago. He was gaining weight and was more dyspneic with mild exertion. He was starting to have blisters in hiis legs and was scheduled to see Dr. Sanabria for vascular follow up. Diabetes, hypertension, hyperlipidemia, and CKD were controlled. He had lumps in his right elbow and forearm that were painful and tender at times. This was also causing pain, numbness, and tingling of the right ulnar forearm, wrist, and small digits. Review of Systems Constitutional: Negative for chills and fever. HENT: Negative for congestion. Respiratory: Positive for shortness of breath. Negative for cough and wheezing. Cardiovascular: Positive for leg swelling. Negative for chest pain and palpitations. Gastrointestinal: Negative. Genitourinary: Negative. Musculoskeletal: Positive for arthralgias (right elbow, forearm, lumps). Skin: Positive for color change. Negative for wound. Neurological: Positive for numbness (right hand digits 4 AND 5). ACTIVE PROBLEM LIST Generalized Osteoarthrosis, Unspecified Site Esophageal Reflux Venous (Peripheral) Insufficiency Type 2 Diabetes Mellitus With Diabetic Neuropathy, With Long-Term Current Use of Insulin ([facility]) Class 3 Severe Obesity With Body Mass Index (Bmi) of 45.0 to 49.9 in Adult ([facility]) Other Hyperlipidemia Essential Hypertension Coronary Artery Disease of [place] Artery of [place] Heart With Stable Angina Pectoris Persistent Atrial Fibrillation ([facility]) Memory Disturbance Bph (Benign Prostatic Hyperplasia) History of Partial Amputation of Toe ([facility]) Robin (Dyspnea On Exertion) Statin Intolerance Chronic Diastolic Congestive Heart Failure ([facility]) Valvular Heart Disease Non-Seasonal Allergic Rhinitis Hypertensive Heart Disease With Chronic Diastolic Congestive Heart Failure ([facility]) Atherosclerosis of Aorta Current Outpatient Medications Medication Sig insulin degludec [...] 1 tablet by mouth once daily. Insulin [place], Disposable, 32 gauge x /32 Use with insulin 4 times a day. Dx: E11.40; Z79.4 blood sugar diagnostic (BLOOD GLUCOSE TEST) test strip Test blood sugar(s) 4-5 times daily Dx: Type 2 DM - Uncontrolled E11.65 Insulin: Yes BIOTIN ORAL Take 1 tablet by mouth once daily. Fish Oil-[place]og[place]-3 Fatty Acids (FISH OIL OMEGA 3-6-9) 300-1,000 mg CpDR Take 3000 mg daily. Lancets (ONE TOUCH ULTRASOFT LANCETS) Misc lancets twice daily. Use as instructed ( may dispense Deuca brand) MULTIVITAMIN TAB Take one(1) tablet daily. VITAMIN C 1,000 MG TAB Take one(1) tablet daily. No current facility-administere d medications for this visit. Objective BP 128/82 Pulse 80 Resp 16 Wt 132 kg (291 lb 0.1 oz) SpO2 96% BMI 45.58 kg/m? Physical Exam Constitutional: General: He is not in acute distress. Appearance: He is not ill-appearing. HENT: Head: Normocephalic. Eyes: Conjunctiva/sclera: Conjunctivae normal. Cardiovascular: Rate and Rhythm: Normal rate. Rhythm irregular. Heart sounds: S1 normal and S2 normal. No murmur heard. Pulmonary: Effort: No respiratory distress. Breath sounds: Examination of the left-lower field reveals rales. Rales present. No wheezing. Abdominal: Palpations: Abdomen is soft. Tenderness: There is no abdominal tenderness. Musculoskeletal: (more content not included)... Normal [facility] XR CHEST 2V FRONTAL/LATon XR CHEST 2V FRONTAL/LAT * * *Final Repor t* * * DATE OF EXAM: Jan 02 2025 11:57AM WOX 5291 - XR CHEST 2V FRONTAL/LAT / PROCEDURE REASON: ROBIN (dyspnea on exertion) * * * * Physician Interpretation * * * * EXAMINATION: CHEST RADIOGRAPH (2 VIEW FRONTAL and LATERAL) CLINICAL HISTORY: ROBIN (dyspnea on exertion) MQ: XC2_6 EXAM DATE/TIME: 01/02/2025 11:57 AM COMPARISON: 06/21/2020 CT 04/19/2020 RESULT: Lines, tubes, and devices: None. Lungs and pleura: No consolidation. No lung mass. No pleural effusion. No pneumothorax. Cardiomediastinal silhouette: Normal cardiomediastinal silhouette. Bones and soft tissues: Stable degenerative changes. Stable mild compression deformity of T12 and L1 IMPRESSION: No acute radiographic abnormality. Revenue Audit Clerk: PSCB Transcribe Date/Time: Jan 05 2025 3:15P Dictated by : HUMZA PEREZ MD This examination was interpreted and the report reviewed and electronically signed by: HUMZA PEREZ MD on Jan 05 2025 3:18PM EST [id number] Normal [facility] CNPNon 12-14-2024 CNPN Telephone (CAWSTR) MIGUELANGEL MOYA ([id number]) 1950 M Date Time Provider Department 12/14/24 REGULO STOVER [facility] During your visit today, we recorded the following information about you: Demi Dewitt LPN 12/14/2024 3:44 PM Signed Patients calling in wondering if you have any recommendations on a vascular surgeon in [place]. Patients requesting a call back. VICTORIA Mcneal Laurie, MA 01/08/2025 3:10 PM Signed Provider does not recommend he go to Vascular surgeon. See other phone note. Josefina Ballard MA Allergies As of Date: 12/14/2024 Noted Allergy Reaction METOLAZONE 01/15/2022 2 - Rash ALTACE (RAMIPRIL) 12/29/2004 5 - Intolerance BACTRIM (SULFAMETHOXAZOLE-TR IMETH*08/15/2020 4 - Hives DIOVAN (VALSARTAN) 12/29/2004 PROPOFOL 02/10/2020 14 - Other: See Comments Comments: agitation RAMIPRIL 11/05/2007 SEASONAL ALLERGIES 08/04/2012 14 - Other: See Comments DLTEIVH-YBL-AUR REDUCTASE INHIBIT*06/18/2011 14 - Other: See Comments Comments: Muscle aches Date Reviewed: 11/30/2024 Reviewed by: Mattie Mckoy, RN - Fully Assessed Reason for Visit: Patient Question [4832] Prescriptions as of 01/08/2025 - furosemide (LASIX) 80 mg tablet Take 1 tablet by mouth two times a day. Three times per day as directed PRN - spironolactone (ALDACTONE) 50 mg tablet Take 1 tablet by mouth once daily. - insulin degludec (TRESIBA FLEXTOUCH U-200) 200 unit/mL (3 mL) injection Inject 120 Units subcutaneously daily at bedtime. - insulin aspart U-100 (NOVOLOG FLEXPEN U-100 INSULIN) 100 unit/mL (3 mL) pen Inject 25 Units subcutaneously three times a day before meals. Sliding scale 3 times daily. (80 units daily max) - amLODIPine (NORVASC) 2.5 mg tablet Take 1 tablet by mouth once daily. - alirocumab (PRALUENT PEN) 75 mg/mL pen Inject 1 mL subcutaneously every other week. - metoprolol tartrate, short acting, (LOPRESSOR) 50 [...] RELIEF WITH 2ND DOSE, CALL 911 - aspirin, enteric coated (ASPIRIN, ENTERIC COATED) 81 mg EC tablet Take 1 tablet by mouth once daily. - Insulin [place], Disposable, 32 gauge x 5/32 Use with insulin 4 times a day. Dx: E11.40; Z79.4 - blood sugar diagnostic (BLOOD GLUCOSE TEST) test strip Test blood sugar(s) 4-5 times daily Dx: Type 2 DM - Uncontrolled E11.65 Insulin: Yes - BIOTIN ORAL Take 1 tablet by mouth once daily. - Fish Oil-Bogota-3 Fatty Acids (FISH OIL OMEGA 3-6-9) 300-1,000 mg CpDR Take 3000 mg daily. - Lancets (ONE TOUCH ULTRASOFT LANCETS) Misc lancets twice daily. Use as instructed ( may dispense Deuca brand) - MULTIVITAMIN TAB Take one(1) tablet daily. - VITAMIN C 1,000 MG TAB Take one(1) tablet daily. 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 Normal [facility] Anion gap in Serum or Plasma Ordered By: Krishna Reynolds on 12-02-2024 Anion gap [Moles/Vol] 14 mmol/L 08-06 [facility] BUN/creatinine ratioOrdered By: Krishna Reynolds on 12-02-2024 Urea nitrogen/Creatinine [Mass ratio] 18.8 mg/mg 01-11 [facility] Basic Metabolic Profile (BMP )on 12-02-2024 BUN/CRE 18.8 RATIO Normal 01-11 [facility] Comment on above: Performed By: #### L 503.7505, L501.1400, L500.2500 #### [facility] [address] [place], [address] Calcium [Mass/Vol] 9.4 mg/dL Normal 7.6-11.0 [facility] Comment on above: Performed By: #### L 503.7505, L501.1400, L500.2500 #### [facility] [address] [place], [address] Chloride [Moles/Vol] 102 mmol/L Normal 98-108 [facility] Comment on above: Performed By: #### L 503.7505, L501.1400, L500.2500 #### [facility] [address] [place], [address] CO2 [Moles/Vol] 23.8 mmol/L Normal 21.0-32.0 [facility] Comment on above: Performed By: #### L 503.7505, L501.1400, L500.2500 #### [facility] [address] [place], [address] Creatinine [Mass/Vol] 1.04 mg/dL Normal 0.70-1.20 [facility] Comment on above: Performed By: #### L 503.7505, L501.1400, L500.2500 #### [facility] [address] [place], [address] GAP 14 Normal 5-15 [facility] Comment on above: Performed By: #### L 503.7505, L501.1400, L500.2500 #### [facility] [address] [place], [address] GFR/1.73 sq M.predicted among non-blacks MDRD (S/P/Bld) [Vol rate/Area] 75 mL/min/{1.73_m2} Normal >60 [facility] Comment on above: Result Comment: mL/m in/1.73m2 CKD-EPI Creatinine Equation (2020) Performed By: #### L 503.7505, L501.1400, L500.2500 #### [facility] [address] [place], [address] Glucose [Mass/Vol] 106 mg/dL High 70-99 [facility] Comment on above: Performed By: #### L 503.7505, L501.1400, L500.2500 #### [facility] [address] [place], [address] Potassium [Moles/Vol] 4.3 mmol/L Normal 3.3-5.1 [facility] Comment on above: Result Comment: Hemo lysis present, Results??could be affected. ?? Performed By: #### L 503.7505, L501.1400, L500.2500 #### [facility] [address] [place], [address] Sodium [Moles/Vol] 139 mmol/L Normal 133-145 [facility] Comment on above: Performed By: #### L 503.7505, L501.1400, L500.2500 #### [facility] [address] [place], [address] Urea nitrogen [Mass/Vol] 20 mg/dL High 4-19 [facility] Comment on above: Performed By: #### L 503.7505, L501.1400, L500.2500 #### [facility] [address] [place], [place], [id number] Calculated very low density lipoprotein (VLDL) cholesterol measurementOrdered By: Krishna Reynolds on 12-02-2024 Calculated very low density lipoprotein (VLDL) cholesterol measurement 28 mg/dL 5-40 [facility] Carbon dioxide, total [Moles /volume] in Central venous bloodOrdered By: Krishna Reynolds on 12-02-2024 CO2 [Moles/Vol] 23.8 mmol/L 21.0-32.0 [facility] Chloride assayOrdered By: Jennifer Reynolds on 12-02-2024 Chloride [Moles/Vol] 102 mmol/L 98-108 [facility] Glomerular filtration rate ( GFR) estimation/1.73 sq m using serum, plasma, or whole bOrdered By: Krishna Reynolds on 12-02-2024 GFR/1.73 sq M.predicted among non-blacks MDRD (S/P/Bld) [Vol rate/Area] 75 mL/min/{1.73_m2} >60 [facility] Comment on above: mL/min/1.73m2 CKD-EP I Creatinine Equation (2020) Hemoglobin A1con 12-02-2024 HbA1c (Bld) [Mass fraction] 6.4 % High <=5.6 [facility] Comment on above: Result Comment: Norm al < 5.7 % Prediabetic 5.7 - 6.4 % Diabetic >or= 6.5 % Please note range changes. Performed By: #### L 503.7505, L501.1400, L500.2500 #### [facility] [address] [place], [place], [address] Hemoglobin A1c percentageOrd ered By: Krishna Reynolds on 12-02-2024 HbA1c (Bld) [Mass fraction] 6.4 % High <5.7 [facility] Comment on above: Normal < 5.7 % Predi abetic 5.7 - 6.4 % Diabetic >or= 6.5 % Please note range changes. LDL calc ser/plasOrdered By: Krishna Reynolds on 12-02-2024 Cholesterol in LDL [Mass/Vol] 108 mg/dL [facility] Comment on above: Bfcgcbfiji=566-076 m g/dL & Higher Wwyj=318 mg/dL or greaterFriedwald Equation for LDL-C Lipid Profileon 12-02-2024 CHOL:HDL 4.30 Normal [facility] Comment on above: Performed By: #### L 503.7505, L501.1400, L500.2500 #### [facility] [address] [place], [address] Cholesterol [Mass/Vol] 176 mg/dL Normal <=200 [facility] Comment on above: Result Comment: Chol esterol level, Desirable <200 mg/dL Borderline high cholesterol 200-239 mg/dL High cholesterol >=240 mg/dL Recommendations of the NCEP Adult Treatment Panel for the following risk-cutoff thresholds for the [place] population. Performed By: #### L 503.7505, L501.1400, L500.2500 #### [facility] [address] [place], [address] Cholesterol in HDL [Mass/Vol] 41 mg/dL Normal [facility] Comment on above: Result Comment: [facility] Cholesterol Education Program (NCEP) guidelines: <40 mg/dL: Low HDL-cholesterol (major risk factor for CHD) >= 60 mg/dL: High HDL-cholesterol (negative risk factor for CHD) HDL-cholesterol is affected by a number of factors, e.g. smoking, exercise, hormones, sex and age. Performed By: #### L 503.7505, L501.1400, L500.2500 #### [facility] [address] [place], [address] Cholesterol in LDL [Mass/Vol] 108 mg/dL Normal [facility] Comment on above: Result Comment: Bord trjtkn=084-768 mg/dL Higher Vbjn=978 mg/dL or greater Friedwald Equation for LDL-C Performed By: #### L 503.7505, L501.1400, L500.2500 #### [facility] [address] [place], [address] Cholesterol in VLDL [Mass/Vol] 28 mg/dL Normal 5-40 [facility] Comment on above: Performed By: #### L 503.7505, L501.1400, L500.2500 #### [facility] [address] [facility] [place], [address] Triglyceride [Mass/Vol] 138 mg/dL Normal [facility] Comment on above: Result Comment: The drugs N-Acetylcysteine and Metamizole may falsely depress this assay. Normal range: <150 mg/dL Borderline High: 150-199 mg/dL High: 200-499 mg/dL Very High: >500 mg/dL Performed By: #### L 503.7505, L501.1400, L500.2500 #### [facility] [address] [place], [address] Potassium measurement (mass/ volume)Ordered By: Krishna Reynolds on 12-02-2024 Potassium (Unsp spec) [Mass/Vol] 4.3 mmol/L 3.3-5.1 [facility] Comment on above: Hemolysis present, R esults could be affected. Screening total cholesterol/ high density lipoprotein (HDL) cholesterol ratioOrdered By: Krishna Reynolds on 12-02-2024 Cholesterol.total/Choles terol in HDL [Mass ratio] 4.30 {ratio} [facility] Serum creatinine measurement (mass/volume)Ordered By: Krishna Reynolds on 12-02-2024 Creatinine [Mass/Vol] 1.04 mg/dL 0.70-1.20 [facility] Serum glucose measurement (m ass/volume)Ordered By: Krishna Reynolds on 12-02-2024 Glucose [Mass/Vol] 106 mg/dL High 70-99 [facility] Serum or plasma calcium monroe urement (mass/volume)Ordered By: Krishna Reynolds on 12-02-2024 Calcium [Mass/Vol] 9.4 mg/dL 7.6-11.0 [facility] Serum or plasma cholesterol in HDL measurement (mass/volume)Ordered By: Krishna Reynolds on 12-02-2024 Cholesterol in HDL [Mass/Vol] 41 mg/dL >40 [facility] Comment on above: National Cholesterol Education Program (NCEP) guidelines:<40 mg/dL: Low HDL-cholesterol (major risk factor for CHD)>= 60 mg/dL: High HDL-cholesterol (negative risk factor for CHD)HDL-cholesterol is affected by a number of factors, e.g. smoking, exercise, hormones, sex and age. Serum or plasma cholesterol measurement (mass/volume)Ordered By: Krishna Reynolds on 12-02-2024 Cholesterol [Mass/Vol] 176 mg/dL <201 [facility] Comment on above: Cholesterol level, D esirable <200 mg/dLBorderline high cholesterol 200-239 mg/dLHigh cholesterol >=240 mg/dLRecommendations of the NCEP Adult Treatment Panel for the following risk-cutoff thresholds for the [place] population. Serum or plasma urea nitroge n measurement (mass/volume)Ordered By: Krishna Reynolds on 12-02-2024 Urea nitrogen [Mass/Vol] 20 mg/dL High 4-19 [facility] Sodium levelOrdered By: Justin Reynolds on 12-02-2024 Sodium [Moles/Vol] 139 mmol/L 133-145 [facility] Triglycerides measurementOrd ered By: Krishna Reynolds on 12-02-2024 Triglyceride [Mass/Vol] 138 mg/dL <199 [facility] Comment on above: The drugs N-Acetylcy steine and Metamizole may falsely depress this assay. Normal range: <150 mg/dLBorderline High: 150-199 mg/dLHigh: 200-499 mg/dLVery High: >500 mg/dL CNOVon 11-30-2024 CNOV Office Visit (PODIST) MIGUELANGEL MOYA ([id number]) 1950 M Date Time Provider Department 11/30/24 10:00 AM CHIUNDA, ARABELLA PODIST During your visit today, we recorded [...] 1 tablet by mouth once daily. Fish Oil-Bogota-3 Fatty Acids (FISH OIL OMEGA 3-6-9) 300-1,000 mg CpDR Take 3000 mg daily. Lancets (ONE TOUCH ULTRASOFT LANCETS) Misc lancets twice daily. Use as instructed ( may dispense [employer] brand) VITAMIN C 1,000 MG TAB Take one(1) tablet daily. Insulin [place], Disposable, 32 gauge x /32 Use with [...] agitation Ramipril Seasonal Allergies Other: See Comments Iccqqhk-Ilu-Iwi Red* Other: See Comments Muscle aches OBJECTIVE: [...] ICD9: 250.60, ICD10: E11.49 (primary diagnosis) 2. [facility] or callus - ICD9: 700, ICD10: L84 PLAN: Treatment today consisted of -Exam -Debrided calluses x 4 with #15 blade Continue follow up with endo Continue with diabetic shoes Follow-up (more content not included)... Normal [facility] CNNURSEon 10-19-2024 CNNURSE Nurse Visit (CARDWS) MIGUELANGEL MOYA ([id number]) 1950 M Date Time Provider Department 10/19/24 9:45 AM NURSE CARD WSTR CARDWS During your visit today, we recorded the following information about you: Referring Provider: REGULO STOVER [[id number]] Allergies As of Date: 10/19/2024 Noted Allergy Reaction METOLAZONE 01/15/2022 2 - Rash ALTACE (RAMIPRIL) 12/29/2004 5 - Intolerance BACTRIM (SULFAMETHOXAZOLE-TR IMETH*08/15/2020 4 - Hives DIOVAN (VALSARTAN) 12/29/2004 PROPOFOL 02/10/2020 14 - Other: See Comments Comments: agitation RAMIPRIL 11/05/2007 SEASONAL ALLERGIES 08/04/2012 14 - Other: See Comments [id number]-EPB-ARY REDUCTASE INHIBIT*06/18/2011 14 - Other: See Comments Comments: Muscle aches Date Reviewed: 10/16/2024 Reviewed by: Leila Suárez, 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 - Fully Assessed Visit Diagnoses: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 - Insulin [place], Disposable, 32 gauge x 5/32 Use with insulin 4 times a day. Dx: E11.40; Z79.4 - blood sugar diagnostic (BLOOD GLUCOSE TEST) test strip Test blood sugar(s) 4-5 times daily Dx: Type 2 DM - Uncontrolled E11.65 Insulin: Yes - BIOTIN ORAL Take 1 tablet by mouth once daily. 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 Normal [facility] Microalb:Creat Ratio,Random URon 10-19-2024 MALB:CREAT 73.2 mg/g CRE High <30 mg/g CRE [facility] Comment on above: Result Comment: AMENDED REPORT 10/19/242119 MALB:CREAT previously reported as: 732.1 mg/g CRE Performed By: #### L 502.0250 #### [facility] [address] [place], [address] NM CARDIAC PERF STRESS/PHARM on 10-19-2024 NM CARDIAC PERF STRESS/PHARM * * *Final Report* * * DATE OF EXAM: Oct 19 2024 11:30AM WON 0006 - NM CARDIAC PERF STRESS/PHARM / PROCEDURE REASON: multiple diagnoses * * * * Physician Interpretation * * * * Stress Trim Line Worker Report: [facility] Date of service: 10/19/2024 6:57:04 AM [...] later. See administered radiotracer and doses below. [facility] Date of service: 10/19/2024 6:57:04 AM [...] Final * * * Stress ECG Report: [facility] Date of service: 10/19/2024 6:57:04 AM Ordering physician: REGULO STOVER supervisory training specialist: Yoselin Hilario RN Interpreting physician: Regulo [...] 130/78 mmHg. The double product achieved was [id number]. Previous cardiovascular interventions: PCI (2007) PCI (2019) [...] +-----+---+---+---+ +------+ ---------+ ---------+ Stage ST: Lead, Toole, MM Arrhythmias +------+ ---------+ ---------+ 1 Rare PVC (<3/min) +------+ ---------+ ---------+ (more content not included)... Normal [facility] W stress and W radionuclide Azam 10-19-2024 * * *Final Report* * * DATE OF EXAM: Oct 19 2024 11:30AM [address] CARDIAC PERF STRESS/PHARM / PROCEDURE REASON: multiple diagnoses * * * * Physician Interpretation * * * * Stress Trim Line Worker Report: [facility] Date of service: 10/19/2024 6:57:04 AM [...] later. See administered radiotracer and doses below. [facility] Date of service: 10/19/2024 6:57:04 AM [...] Final * * * Stress ECG Report: [facility] Date of service: 10/19/2024 6:57:04 AM Ordering physician: REGULO STOVER supervisory training specialist: Yoselin Hilario RN Interpreting physician: Regulo [...] 130/78 mmHg. The double product achieved was [id number]. Previous cardiovascular interventions: PCI (2007) PCI (2019) [...] content not included)... DIVISION OF RADIOLOGY Provider, [facility] - 10/19/2024 * * *Final Report* * * DATE OF EXAM: Oct 19 2024 11:30AM WON 0006 - NM CARDIAC PERF STRESS/PHARM / PROCEDURE REASON: multiple diagnoses * * * * Physician Interpretation * * * * Stress Trim Line Worker Report: [facility] Date of service: 10/19/2024 6:57:04 AM [...] later. See administered radiotracer and doses below. [facility] Date of service: 10/19/2024 6:57:04 AM [...] Final * * * Stress ECG Report: [facility] Date of service: 10/19/2024 6:57:04 AM Ordering physician: REGULO STOVER supervisory training specialist: Yoselin Hilario RN Interpreting physician: Regulo [...] 130/78 mmHg. The double product achieved was [id number]. Previous cardiovascular interventions: PCI (2007) PCI (2019) [...] ST: Lead, S (more content not included)... [facility] Radiology Study observation (narrative) Jane valdez [facility]fusion W stress and W radionuclide IVOrdered By: Ccf Provider on 10-19-2024 [facility] CNPJackelyn 10-15-2024 CNPN Telephone (INTMWS) MIGUELANGEL MOYA ([id number]) 1950 M Date Time Provider Department 10/15/24 KRISHNA REYNOLDS INTMWS During your visit today, [...] and phone pt with reply. Leila Suárez APRN.DANA 10/16/2024 6:54 AM Signed Typically the scheduled [...] 100. Please advise , Jessica. Leila Suárez APRN.DANA 10/16/2024 9:02 AM Signed The standard protocol is to hold scheduled insulin and give sliding scale if indicated by the blood sugar to avoid the blood sugar spiking since he is not getting the scheduled insulin that morning. Check blood fasting blood sugar the day of procedure and give indicated amount of Novolog per sliding scale Leila Suárez APRN.Vernell Schaffer RN 10/16/2024 9:48 AM Signed Pt's called [...] ALLERGIES 08/04/2012 14 - Other: See Comments [id number]-IDA-HRL REDUCTASE INHIBIT*06/18/2011 14 - Other: See Comments [...] Units subcutaneously daily at bedtime. - Insulin [place], Disposable, 32 gauge x 5/32 Use with insulin 4 times a day. Dx: E11.40; Z79.4 - blood sugar diagnostic (BLOOD GLUCOSE TEST) test strip Test blood sugar(s) 4-5 times daily Dx: Type 2 DM - Uncontrolled E11.65 Insulin: Yes - BIOTIN ORAL Take 1 tablet by mouth once daily. - Fish Oil-Bogota-3 Fatty Acids (FISH OIL OMEGA 3-6-9) 300-1,000 [...] Other hyperli (more content not included)... Normal [facility] CNPN Telephone (MONIQUEWS) MIGUELANGEL MOYA ([id number]) 1950 M Date Time Provider Department 10/15/24 [...] floor at Radiology: [address]; [place] [address] * If you need to cancel or reschedule this test or have any questions regarding this test, please call [phone]. Allergies As of Date: 10/15/2024 Noted Allergy Reaction METOLAZONE 01/15/2022 2 - Rash ALTACE (RAMIPRIL) 12/29/2004 5 - Intolerance BACTRIM (SULFAMETHOXAZOLE-TR IMETH*08/15/2020 4 - Hives DIOVAN (VALSARTAN) 12/29/2004 PROPOFOL 02/10/2020 14 - Other: See Comments Comments: agitation RAMIPRIL 11/05/2007 SEASONAL ALLERGIES 08/04/2012 14 - Other: See Comments [id number]-AXH REDUCTASE INHIBIT*06/18/2011 14 - Other: See Comments [...] Units subcutaneously daily at bedtime. - Insulin [place], Disposable, 32 gauge x 5/32 Use with insulin 4 times a day. Dx: E11.40; Z79.4 - blood sugar diagnostic (BLOOD GLUCOSE TEST) test strip Test blood sugar(s) 4-5 times daily Dx: Type 2 DM - Uncontrolled E11.65 Insulin: Yes - BIOTIN ORAL Take 1 tablet by mouth once daily. - Fish Oil-Bogota-3 Fatty Acids (FISH OIL OMEGA 3-6-9) 300-1,000 mg CpDR Take 3000 mg daily. - Lancets (ONE TOUCH ULTRASOFT LANCETS) Misc lancets twice daily. Use as instructed ( may dispense [employer] brand) - MULTIVITAMIN TAB Take one(1) tablet daily. - VITAMIN C 1,000 MG TAB Take one(1) tablet daily. Problem List As Of Date 10/15/2024 No (more content not included)... Normal [facility] Anion gap in Serum or Plasma Ordered By: Wood Kraus on 08-12-2024 Anion gap [Moles/Vol] 12 mmol/L - [facility] BUN/creatinine ratioOrdered By: Wood Kraus on 08-12-2024 Urea nitrogen/Creatinine [Mass ratio] 20.7 mg/mg High - [facility] CBC-Complete Blood Cnt No Di ffon 08-12-2024 Erythrocyte distribution width (RBC) [Ratio] 13.0 % Normal 11.6-14.6 [facility] Comment on above: Performed By: #### L 100.0500, L501.0900, L500.3600 #### [facility] [address] [place], [address] Hematocrit (Bld) [Volume fraction] 44.9 % Normal 40-54 [facility] Comment on above: Performed By: #### L 100.0500, L501.0900, L500.3600 #### [facility] [address] [place], [address] Hemoglobin (Bld) [Mass/Vol] 15.1 g/dL Normal 13.0-16.5 [facility] Comment on above: Performed By: #### L 100.0500, L501.0900, L500.3600 #### [facility] [address] [place], [address] MCH (RBC) [Entitic mass] 30.6 pg Normal 27.0-32.0 [facility] Comment on above: Performed By: #### L 100.0500, L501.0900, L500.3600 #### [facility] [address] [place], [address] MCHC (RBC) [Mass/Vol] 33.6 g/dL Normal 32-36 [facility] Comment on above: Performed By: #### L 100.0500, L501.0900, L500.3600 #### [facility] [address] [place], [address] MCV (RBC) [Entitic vol] 91.1 fL Normal 80-94 [facility] Comment on above: Performed By: #### L 100.0500, L501.0900, L500.3600 #### [facility] [address] [place], [address] Platelet mean volume (Bld) [Entitic vol] 9.1 fL Normal 6.2-12.0 [facility] Comment on above: Performed By: #### L 100.0500, L501.0900, L500.3600 #### [facility] [address] [place], [address] Platelets (Bld) [#/Vol] 261 10*3/uL Normal 150-450 [facility] Comment on above: Performed By: #### L 100.0500, L501.0900, L500.3600 #### [facility] [address] [place], [address] RBC (Bld) [#/Vol] 4.93 10*6/uL Normal 4.6-6.2 [facility] Comment on above: Performed By: #### L 100.0500, L501.0900, L500.3600 #### [facility] [address] [place], [address] RDW SD 43.3 fl Normal 35.1-43.9 [facility] Comment on above: Performed By: #### L 100.0500, L501.0900, L500.3600 #### [facility] [address] [place], [address] WBC (Bld) [#/Vol] 5.4 10*3/uL Normal 4.4-11.0 [facility] Comment on above: Performed By: #### L 100.0500, L501.0900, L500.3600 #### [facility] [address] [place], [address] Carbon dioxide, total [Moles /volume] in Central venous bloodOrdered By: Wood Kraus on 08-12-2024 CO2 [Moles/Vol] 23.6 mmol/L 21.0-32.0 [facility] Chloride assayOrdered By: Dilip Kraus on 08-12-2024 Chloride [Moles/Vol] 99 mmol/L 98-108 [facility] Erythrocyte distribution wid th ratioOrdered By: Wood Kraus on 08-12-2024 Erythrocyte distribution width (RBC) [Ratio] 13.0 % 11.6-14.6 [facility] Erythrocyte distribution wid th standard deviationOrdered By: Wood Kraus on 08-12-2024 Erythrocyte distribution width (RBC) [Ratio] 43.3 fl 35.1-43.9 [facility] Glomerular filtration rate ( GFR) estimation/1.73 sq m using serum, plasma, or whole bOrdered By: Wood Kraus on 08-12-2024 GFR/1.73 sq M.predicted among non-blacks MDRD (S/P/Bld) [Vol rate/Area] 77 mL/min/{1.73_m2} >60 [facility] Comment on above: mL/min/1.73m2 CKD-EP I Creatinine Equation (2020) Hematocrit Auto (Bld) [Volum e fraction]Ordered By: Wood Kraus on 08-12-2024 Hematocrit (Bld) [Volume fraction] 44.9 % 40-54 [facility] Hemoglobin measurementOrdere d By: Wood Kraus on 08-12-2024 Hemoglobin (Bld) [Mass/Vol] 15.1 g/dL 13.0-16.5 [facility] MCV (mean corpuscular volume ) determinationOrdered By: Wood Kraus on 08-12-2024 MCV (RBC) [Entitic vol] 91.1 fL 80-94 [facility] Mean corpuscular hemoglobin (MCH) determinationOrdered By: Wood Kraus on 08-12-2024 MCH (RBC) [Entitic mass] 30.6 pg 27.0-32.0 [facility] Mean corpuscular hemoglobin concentration (MCHC) determinationOrdered By: Wood Kraus on 08-12-2024 MCHC (RBC) [Mass/Vol] 33.6 g/dL 32-36 [facility] Mean platelet volume determi nationOrdered By: Wood Kraus on 08-12-2024 Platelet mean volume (Bld) [Entitic vol] 9.1 fL 6.2-12.0 [facility] Platelet countOrdered By: Dilip Kraus on 08-12-2024 Platelets (Bld) [#/Vol] 261 10*3/uL 150-450 [facility] Potassium measurement (mass/ volume)Ordered By: Wood Kraus on 08-12-2024 Potassium (Unsp spec) [Mass/Vol] 4.4 mmol/L 3.3-5.1 [facility] Comment on above: Hemolysis present, R esults could be affected. Protein+Creatinine Ratio,Uri neon 08-12-2024 PROT:CRE RATIO UNABLE TO CALCULATE Normal 0-200 [facility] Comment on above: Performed By: #### L 100.0500, L501.0900, L500.3600 #### [facility] [address] [place], [address] PROTEIN,UR.RAN. < 6.0 Normal 0.0-12.0 [facility] Comment on above: Performed By: #### L 100.0500, L501.0900, L500.3600 #### [facility] [address] [place], [address] UR CREAT 46.80 mg/dL Normal 39.00-259.00 [facility] Comment on above: Performed By: #### L 100.0500, L501.0900, L500.3600 #### [facility] [address] [place], [address] RBC Auto (Bld) [#/Vol]Ordere d By: Wood Kraus on 08-12-2024 RBC (Bld) [#/Vol] 4.93 10*6/uL 4.6-6.2 [facility] Random urine creatinine monroe urement (mass/volume)Ordered By: Wood Kraus on 08-12-2024 Creatinine Unsp time (U) [Mass/Vol] 46.80 mg/dL 39.00-259.00 [facility] Renal Profileon 08-12-2024 Albumin [Mass/Vol] 3.8 g/dL Normal 3.4-4.8 [facility] Comment on above: Order Comment: SEN D BMP AND URIC TO Performed By: #### L 503.7505, L501.1400, L500.2500 #### [facility] [address] [place], [address] BUN/CRE 20.7 RATIO High 10-20 [facility] Comment on above: Order Comment: SEN D BMP AND URIC TO Performed By: #### L 503.7505, L501.1400, L500.2500 #### [facility] [address] [place], [address] Calcium [Mass/Vol] 9.3 mg/dL Normal 7.6-11.0 [facility] Comment on above: Order Comment: SEN D BMP AND URIC TO Performed By: #### L 503.7505, L501.1400, L500.2500 #### [facility] [address] [place], [address] Chloride [Moles/Vol] 99 mmol/L Normal 98-108 [facility] Comment on above: Order Comment: SEN D BMP AND URIC TO Performed By: #### L 503.7505, L501.1400, L500.2500 #### [facility] [address] [place], [address] CO2 [Moles/Vol] 23.6 mmol/L Normal 21.0-32.0 [facility] Comment on above: Order Comment: SEN D BMP AND URIC TO Performed By: #### L 503.7505, L501.1400, L500.2500 #### [facility] [address] [place], [address] Creatinine [Mass/Vol] 1.02 mg/dL Normal 0.70-1.20 [facility] Comment on above: Order Comment: SEN D BMP AND URIC TO Performed By: #### L 503.7505, L501.1400, L500.2500 #### [facility] [address] [place], [address] GAP 12 Normal 5-15 [facility] Comment on above: Order Comment: SEN D BMP AND URIC TO Performed By: #### L 503.7505, L501.1400, L500.2500 #### [facility] [address] [place], [address] GFR/1.73 sq M.predicted among non-blacks MDRD (S/P/Bld) [Vol rate/Area] 77 mL/min/{1.73_m2} Normal >60 [facility] Comment on above: Order Comment: SEN D BMP AND URIC TO Result Comment: mL/m in/1.73m2 CKD-EPI Creatinine Equation (2020) Performed By: #### L 503.7505, L501.1400, L500.2500 #### [facility] [address] [place], [address] Glucose [Mass/Vol] 140 mg/dL High 70-99 [facility] Comment on above: Order Comment: SEN D BMP AND URIC TO Performed By: #### L 503.7505, L501.1400, L500.2500 #### [facility] [address] [place], [address] Potassium [Moles/Vol] 4.4 mmol/L Normal 3.3-5.1 [facility] Comment on above: Order Comment: SEN D BMP AND URIC TO Result Comment: Hemo lysis present, Results??could be affected. ?? Performed By: #### L 503.7505, L501.1400, L500.2500 #### [facility] [address] [place], [address] Sodium [Moles/Vol] 135 mmol/L Normal 133-145 [facility] Comment on above: Order Comment: SEN D BMP AND URIC TO Performed By: #### L 503.7505, L501.1400, L500.2500 #### [facility] [address] [place], [address] Urea nitrogen [Mass/Vol] 21 mg/dL High 4-19 [facility] Comment on above: Order Comment: SEN D BMP AND URIC TO Performed By: #### L 503.7505, L501.1400, L500.2500 #### [facility] [address] [place], [address] Serum creatinine measurement (mass/volume)Ordered By: Wood Kraus on 08-12-2024 Creatinine [Mass/Vol] 1.02 mg/dL 0.70-1.20 [facility] Serum glucose measurement (m ass/volume)Ordered By: Wood Kraus on 08-12-2024 Glucose [Mass/Vol] 140 mg/dL High 70-99 [facility] Serum or plasma albumin monroe urement (mass/volume)Ordered By: Wood Kraus on 08-12-2024 Albumin [Mass/Vol] 3.8 g/dL 3.4-4.8 [facility] Serum or plasma calcium monroe urement (mass/volume)Ordered By: Wood Kraus on 08-12-2024 Calcium [Mass/Vol] 9.3 mg/dL 7.6-11.0 [facility] Serum or plasma urea nitroge n measurement (mass/volume)Ordered By: Wood Kraus on 08-12-2024 Urea nitrogen [Mass/Vol] 21 mg/dL High 4-19 [facility] Sodium levelOrdered By: Babatunde Kraus on 08-12-2024 Sodium [Moles/Vol] 135 mmol/L 133-145 [facility] Urine protein measurement (m ass/volume)Ordered By: Wood Kraus on 08-12-2024 Protein (U) [Mass/Vol] mg/dL 0.0-12.0 [facility] Urine protein/creatinine mas s ratioOrdered By: Wood Kraus on 08-12-2024 Protein/Creatinine (U) [Mass ratio] UNABLE TO CALCULATE mg/g CRE 0-200 [facility] White blood cell (WBC) count Ordered By: Wood Kraus on 08-12-2024 WBC (Bld) [#/Vol] 5.4 10*3/uL 4.4-11.0 [facility] CNOVon 08-10-2024 CNOV Office Visit (ALVIN) MIGUELANGEL MOYA ([id number]) 1950 M Date Time Provider Department 08/10/24 8:40 AM REGULO STOVER During your visit today, we recorded the following information about you: Pulse Respiration Blood pressure Weight 80/minute 16/minute 126/64 130.4 kg Height 1.702 m Regulo Stover MD 08/10/2024 8:53 AM Signed [facility] CARDIOLOGY Cardiology ([address]) [address] [facility] [id number] OUTPATIENT VISIT DATE 08/10/2024 PRIMARY CARE PHYSICIAN: Krishna Reynolds [address] [place] [address] HISTORY OF PRESENT ILLNESS: Mr. Moya is [...] cath, L heart LEFT HEART CATH,PERCUTANEOUS 12/29/2019 [facility] TONSILLECTOMY PRIMARY/SECONDARY Tonsillectomy TRANSCATH STENT INIT [...] agitation Ramipril Seasonal Allergies Other: See Comments Hzajndh-Alg-Gak Red* Other: See Comments Muscle aches MEDICATIONS: [...] EC tablet (more content not included)... Normal [facility] Jennifer 08-10-2024 [employer] [facility] (CARDANTONIETA) MIGUELANGEL MOYA ([id number]) 1950 M Date Time Provider Department 08/10/24 [...] ALLERGIES 08/04/2012 14 - Other: See Comments [id number]-[id number]-VWK REDUCTASE INHIBIT*06/18/2011 14 - Other: See Comments [...] tablet by mouth once daily. - Insulin [place], Disposable, 32 gauge x 5/32 Use with insulin 4 times a day. Dx: E11.40; Z79.4 - blood sugar diagnostic (BLOOD GLUCOSE TEST) test strip Test blood sugar(s) 4-5 times daily Dx: Type 2 DM - Uncontrolled E11.65 Insulin: Yes - BIOTIN ORAL Take 1 tablet by mouth once daily. - Fish Oil-Bogota-3 Fatty Acids (FISH OIL OMEGA 3-6-9) 300-1,000 mg CpDR Take 3000 mg daily. - Lancets (ONE TOUCH ULTRASOFT LANCETS) [facility] lancets twice daily. Use as instructed ( [...] [E11.42] 01/30/2006 04/24/2018 Coronary artery disease of [place] artery of thai*10/07/2007 Persistent atrial fibrillation (HCC) [...] 07/02/2020 Valvula (more content not included)... Normal [facility] Jennifer 08-04-2024 DANAN Telephone (INTMWS) MIGUELANGEL MOYA ([id number]) 1950 M Date Time Provider Department 08/04/24 [...] on covermymed. MIGUELANGEL MOYA (Armijo: [id number]) - [id number] Tresiba FlexTouch (insulin degludec injection) 200 Units/mL solution status: PA Request Created: August 02, 2024 [id number] Sent: August 04, 2024 Agnieszka Khanna LPN 08/04/2024 9:52 AM Signed MIGUELANGEL MOYA (Armijo: [id number]) Rx #: [id number] Tresiba FlexTouch (insulin degludec injection) 200 Units/mL [...] They will order this for pt to chart picker. Pharmacy will notified pts spouse. Allergies As of Date: 08/04/2024 Noted Allergy Reaction METOLAZONE 01/15/2022 2 - Rash ALTACE (RAMIPRIL) 12/29/2004 5 - Intolerance BACTRIM (SULFAMETHOXAZOLE-TR IMETH*08/15/2020 4 - Hives DIOVAN (VALSARTAN) 12/29/2004 PROPOFOL 02/10/2020 14 - Other: See Comments Comments: agitation RAMIPRIL 11/05/2007 SEASONAL ALLERGIES 08/04/2012 14 - Other: See Comments [id number]-VNY-CCV REDUCTASE INHIBIT*06/18/2011 14 - Other: See Comments [...] tablet by mouth once daily. - Insulin [place], Disposable, 32 gauge x 5/32 Use with insulin 4 times a day. Dx: E11.40; Z79.4 - blood sugar diagnostic (BLOOD GLUCOSE TEST) test strip Test blood sugar(s) 4-5 times daily Dx: Type 2 DM - Uncontrolled E11.65 Insulin: Yes - BIOTIN ORAL Take 1 tablet by mouth once daily. - Fish Oil-Bogota-3 Fatty Acids (FISH OIL OMEGA 3-6-9) 300-1,000 [...] [E11.42] 01/30/2006 04/24/2018 Coronary artery disease of sokaogon artery of thai*10/07/2007 Persistent atrial fibrillation (HCC) [I48.19] 10/07/2007 JAMES (obstructive sleep apnea) [G47.33] 08/13/2013 08/19/2014 Memory disturbance [ (more content not included)... Normal [facility] CNOVon 06-10-2024 CNOV Office Visit (INTMWS) MIGUELANGEL MOYA ([id number]) 1950 M Date Time Provider Department 06/10/24 8:40 AM KRISHNA REYNOLDS INTMWS During your visit today, we recorded the following information about you: Temperature Pulse Respiration Blood pressure 97.9 degrees 64/minute 18/minute 118/60 Weight Height 129.1 kg 1.708 m Krishna Reynolds MD 06/10/2024 9:54 AM Signed Miguelangel George Griffin is a 73 year old male here [...] Reynolds MD as PCP - General Leila Suárez APRN.[employer] SERVICES MANAGER as Morning Caregiver (Internal Medicine) Regluo Stover MD (Cardiology) Arabella Heredia DPM as [...] kg/m? Vision Screening: Follows with optometry/ophthalmol ogy Declines visual acuity screen Assessment/Plan Medicare annual wellness visit, subsequent (Z00.00) - Counseled on healthy diet and regular exercise - Fall avoidance information provided - Personalized prevention plan provided - Discussed need for and benefit of weight loss. BMI 44.25 kg/(m2) - Covid vaccine. Krishna Reynolds MD 06/10/2024 9:54 AM Signed This note was created using NoteWriter. Subjective Miguelangel Moya is a 73 year [...] Neuropathy, With Long-Term Current Use of Insulin ([facility]) Class 3 Severe Obesity With Body Mass Index (Bmi) of 45.0 to 49.9 in Adult ([facility]) Other Hyperlipidemia Essential Hypertension Coronary Artery Disease of [place] Artery of [place] Heart With Stable Angina Pectoris ([facility]) Persistent Atrial Fibrillation ([facility]) Memory Disturbance Bph (Benign Prostatic Hyperplasia) History of Partial Amputation of Toe ([facility]) Robin (Dyspnea On Exertion) Statin Intolerance Chronic Diastolic Congestive Heart Failure ([facility]) Valvular Heart Disease Non-Seasonal Allergic Rhinitis Hypertensive Heart Disease With Chronic Diastolic Congestive Heart Failure ([facility]) Atherosclerosis of Aorta ([facility]) Social History Tobacco Use Smoking [...] daily. alexis (more content not included)... Normal [facility] Albumin DL <= 20 mg/L (U) [M ass/Vol]Ordered By: Krishna Reynolds on 06-03-2024 Urine Random Microalbumin 123.0 mg/L NO RANGE EST. [facility] Anion gap in Serum or Plasma Ordered By: Krishna Reynolds on 06-03-2024 Anion gap [Moles/Vol] 12 mmol/L 5-15 [facility] BUN/creatinine ratioOrdered By: Krishna Reynolds on 06-03-2024 Urea nitrogen/Creatinine [Mass ratio] 16.3 mg/mg 10-20 [facility] Bilirubin, totalOrdered By: Krishna Reynolds on 06-03-2024 Bilirubin [Mass/Vol] 0.83 mg/dL 0.00-1.30 [facility] Calculated very low density lipoprotein (VLDL) cholesterol measurementOrdered By: Krishna Reynolds on 06-03-2024 Calculated very low density lipoprotein (VLDL) cholesterol measurement 32 mg/dL - [facility] VLDL Cholesterol 32 mg/dL - [facility] Carbon dioxide, total [Moles /volume] in Central venous bloodOrdered By: Krishna Reynolds on 06-03-2024 CO2 [Moles/Vol] 24.3 mmol/L 21.0-32.0 [facility] Chloride assayOrdered By: Jennifer Reynolds on 06-03-2024 Chloride [Moles/Vol] 102 mmol/L 98-108 [facility] Comprehensive Metabolic Prof ilon 06-03-2024 Albumin [Mass/Vol] 3.9 g/dL Normal 3.4-4.8 [facility] Comment on above: Performed By: #### L 500.4050, L500.4100, L501.9985, L502.0250 #### [facility] [address] [place], [address] Albumin/Globulin [Mass ratio] 1.3 {ratio} Normal 0.9-2.4 [facility] Comment on above: Performed By: #### L 500.4050, L500.4100, L501.9985, L502.0250 #### [facility] [address] [place], [address] ALK PHOS 74 U/L Normal 40-129 [facility] Comment on above: Performed By: #### L 500.4050, L500.4100, L501.9985, L502.0250 #### [facility] [address] [place], [address] ALT [Catalytic activity/Vol] 19 U/L Normal <=46 [facility] Comment on above: Performed By: #### L 500.4050, L500.4100, L501.9985, L502.0250 #### [facility] [address] [place], [address] AST [Catalytic activity/Vol] 29 U/L Normal <=37 [facility] Comment on above: Performed By: #### L 500.4050, L500.4100, L501.9985, L502.0250 #### [facility] [address] [place], [address] Bilirubin [Mass/Vol] 0.83 mg/dL Normal 0.00-1.30 [facility] Comment on above: Performed By: #### L 500.4050, L500.4100, L501.9985, L502.0250 #### [facility] [address] [place], [address] BUN/CRE 16.3 RATIO Normal 10-20 [facility] Comment on above: Performed By: #### L 500.4050, L500.4100, L501.9985, L502.0250 #### [facility] [address] [place], [address] Calcium [Mass/Vol] 9.1 mg/dL Normal 7.6-11.0 [facility] Comment on above: Performed By: #### L 500.4050, L500.4100, L501.9985, L502.0250 #### [facility] [address] [place], [address] Chloride [Moles/Vol] 102 mmol/L Normal 98-108 [facility] Comment on above: Performed By: #### L 500.4050, L500.4100, L501.9985, L502.0250 #### [facility] [address] [place], [address] CO2 [Moles/Vol] 24.3 mmol/L Normal 21.0-32.0 [facility] Comment on above: Performed By: #### L 500.4050, L500.4100, L501.9985, L502.0250 #### [facility] [address] [place], [address] Creatinine [Mass/Vol] 0.94 mg/dL Normal 0.70-1.20 [facility] Comment on above: Performed By: #### L 500.4050, L500.4100, L501.9985, L502.0250 #### [facility] [address] [place], [address] GAP 12 Normal 5-15 [facility] Comment on above: Performed By: #### L 500.4050, L500.4100, L501.9985, L502.0250 #### [facility] [address] [place], [address] GFR/1.73 sq M.predicted among non-blacks MDRD (S/P/Bld) [Vol rate/Area] 85 mL/min/{1.73_m2} Normal >60 [facility] Comment on above: Result Comment: mL/m in/1.73m2 CKD-EPI Creatinine Equation (2020) Performed By: #### L 500.4050, L500.4100, L501.9985, L502.0250 #### [facility] [address] [place], [address] Globulin (S) [Mass/Vol] 2.9 g/dL Normal 2.2-4.2 [facility] Comment on above: Performed By: #### L 500.4050, L500.4100, L501.9985, L502.0250 #### [facility] [address] [place], [address] Glucose [Mass/Vol] 80 mg/dL Normal 70-99 [facility] Comment on above: Performed By: #### L 500.4050, L500.4100, L501.9985, L502.0250 #### [facility] [address] [place], [address] Potassium [Moles/Vol] 4.0 mmol/L Normal 3.3-5.1 [facility] Comment on above: Performed By: #### L 500.4050, L500.4100, L501.9985, L502.0250 #### [facility] [address] [place], [address] Sodium [Moles/Vol] 139 mmol/L Normal 133-145 [facility] Comment on above: Performed By: #### L 500.4050, L500.4100, L501.9985, L502.0250 #### [facility] [address] [place], [address] T PROT 6.8 g/dL Normal 5.9-8.4 [facility] Comment on above: Performed By: #### L 500.4050, L500.4100, L501.9985, L502.0250 #### [facility] [address] [place], [address] Urea nitrogen [Mass/Vol] 15 mg/dL Normal 4-19 [facility] Comment on above: Performed By: #### L 500.4050, L500.4100, L501.9985, L502.0250 #### [facility] [address] [place], [address] Creatinine Unsp time (U) [Ma ss/Vol]Ordered By: Krishna Reynolds on 06-03-2024 Creatinine (U) [Mass/Vol] 168.00 mg/dL 39-259 [facility] GFR/1.73 sq M.predicted umesh g non-blacks MDRD (S/P/Bld) [Vol rate/Area]Ordered By: Krishna Reynolds on 06-03-2024 Estimated GFR (MDRD) Non-Af Amer 85 >60 [facility] Comment on above: mL/min/1.73m2 CKD-EP I Creatinine Equation (2020) Glomerular filtration rate ( GFR) estimation/1.73 sq m using serum, plasma, or whole bOrdered By: Krishna Reynolds on 06-03-2024 GFR/1.73 sq M.predicted among non-blacks MDRD (S/P/Bld) [Vol rate/Area] 85 mL/min/{1.73_m2} >60 [facility] Comment on above: mL/min/1.73m2 CKD-EP I Creatinine Equation (2020) Hemoglobin A1con 06-03-2024 HbA1c (Bld) [Mass fraction] 6.1 % Normal <=5.6 [facility] Comment on above: Performed By: #### L 500.4050, L500.4100, L501.9985, L502.0250 #### [facility] [address] [place] [address]. [place], [place], [address] Hemoglobin A1c percentageOrd ered By: Krishna Reynolds on 06-03-2024 HbA1c (Bld) [Mass fraction] 6.1 % >5.7 [facility] LDL calc ser/plasOrdered By: Krishna Reynolds on 06-03-2024 Cholesterol in LDL [Mass/Vol] 96 mg/dL [facility] Comment on above: Stxkucselz=985-763 m g/dL & Higher Vimo=127 mg/dL or greater LDL Cholesterol, Calculated 96 mg/dL [facility] Comment on above: Xmbbbihari=829-975 m g/dL & Higher Kvwq=048 mg/dL or greater Laboratory - Chemistry and C hemistry - challengeOrdered By: Krishna Reynolds on 06-03-2024 AST [Catalytic activity/Vol] 29 U/L <38 [facility] Lipid Profileon 06-03-2024 CHOL:HDL 4.00 Normal [facility] Comment on above: Performed By: #### L 500.4050, L500.4100, L501.9985, L502.0250 #### [facility] [address] [place], [address] Cholesterol [Mass/Vol] 171 mg/dL Normal <=200 [facility] Comment on above: Result Comment: Chol esterol level, Desirable <200 mg/dL Borderline high cholesterol 200-239 mg/dL High cholesterol >=240 mg/dL Recommendations of the NCEP Adult Treatment Panel for the following risk-cutoff thresholds for the [place] population. Performed By: #### L 500.4050, L500.4100, L501.9985, L502.0250 #### [facility] [address] [place], [address] Cholesterol in HDL [Mass/Vol] 43 mg/dL Normal [facility] Comment on above: Result Comment: [facility] Cholesterol Education Program (NCEP) guidelines: <40 mg/dL: Low HDL-cholesterol (major risk factor for CHD) >= 60 mg/dL: High HDL-cholesterol (negative risk factor for CHD) HDL-cholesterol is affected by a number of factors, e.g. smoking, exercise, hormones, sex and age. Performed By: #### L 500.4050, L500.4100, L501.9985, L502.0250 #### [facility] [address] [place], [address] Cholesterol in LDL [Mass/Vol] 96 mg/dL Normal [facility] Comment on above: Result Comment: Bord zhtxqf=926-366 mg/dL Higher Ktsc=916 mg/dL or greater Performed By: #### L 500.4050, L500.4100, L501.9985, L502.0250 #### [facility] [address] [place], [address] Cholesterol in VLDL [Mass/Vol] 32 mg/dL Normal 5-40 [facility] Comment on above: Performed By: #### L 500.4050, L500.4100, L501.9985, L502.0250 #### [facility] [address] [place], [address] Triglyceride [Mass/Vol] 161 mg/dL Normal [facility] Comment on above: Result Comment: The drugs N-Acetylcysteine and Metamizole may falsely depress this assay. Normal range: <150 mg/dL Borderline High: 150-199 mg/dL High: 200-499 mg/dL Very High: >500 mg/dL Performed By: #### L 500.4050, L500.4100, L501.9985, L502.0250 #### [facility] [address] [place], [address] Microalb:Creat Ratio,Random URon 06-03-2024 MALB:CREAT Normal [facility] Comment on above: Result Comment: WILL REORDER Performed By: #### L 500.4050, L500.4100, L501.9985, L502.0250 #### [facility] [address] [place], [address] MICROALBUMIN,UR Normal NO RANGE EST. [facility] Comment on above: Result Comment: WILL REORDER Performed By: #### L 500.4050, L500.4100, L501.9985, L502.0250 #### [facility] [address] [place], [address] UR CREAT Normal 39-259 [facility] Comment on above: Result Comment: WILL REORDER Performed By: #### L 500.4050, L500.4100, L501.9985, L502.0250 #### [facility] [address] [place], [address] Microalbumin/creat ratio urO rdered By: Krishna Reynolds on 06-03-2024 Urine Microalbumin/Creatinine Ratio 732.1 mg/g CRE [facility] Potassium (Unsp spec) [Mass/ Vol]Ordered By: Krishna Reynolds on 06-03-2024 Potassium [Moles/Vol] 4.0 mmol/L 3.3-5.1 [facility] Potassium measurement (mass/ volume)Ordered By: Krishna Reynolds on 06-03-2024 Potassium (Unsp spec) [Mass/Vol] 4.0 mmol/L 3.3-5.1 [facility] Random urine creatinine monroe urement (mass/volume)Ordered By: Krishna Reynolds on 06-03-2024 Creatinine Unsp time (U) [Mass/Vol] 168.00 mg/dL 39-259 [facility] Screening total cholesterol/ high density lipoprotein (HDL) cholesterol ratioOrdered By: Krishna Reynolds on 06-03-2024 Cholesterol.total/Choles terol in HDL [Mass ratio] 4.00 {ratio} [facility] Serum creatinine measurement (mass/volume)Ordered By: Krishna Reynolds on 06-03-2024 Creatinine [Mass/Vol] 0.94 mg/dL 0.70-1.20 [facility] Serum globulin measurementOr dered By: Krishna Reynolds on 06-03-2024 Globulin (S) [Mass/Vol] 2.9 g/dL 2.2-4.2 [facility] Serum glucose measurement (m ass/volume)Ordered By: Krishna Reynolds on 06-03-2024 Glucose [Mass/Vol] 80 mg/dL 70-99 [facility] Serum or plasma alanine lopez otransferase (ALT) measurementOrdered By: Krishna Reynolds on 06-03-2024 ALT [Catalytic activity/Vol] 19 U/L <47 [facility] Serum or plasma albumin monroe urement (mass/volume)Ordered By: Krishna Reynolds on 06-03-2024 Albumin [Mass/Vol] 3.9 g/dL 3.4-4.8 [facility] Serum or plasma albumin/glob ulin mass ratioOrdered By: Krishna Reynolds on 06-03-2024 Albumin/Globulin [Mass ratio] 1.3 {ratio} 0.9-2.4 [facility] Serum or plasma alkaline neetu sphatase measurementOrdered By: Krishna Reynolds on 06-03-2024 ALP [Catalytic activity/Vol] 74 U/L 40-129 [facility] Serum or plasma calcium monroe urement (mass/volume)Ordered By: Krishna Reynolds on 06-03-2024 Calcium [Mass/Vol] 9.1 mg/dL 7.6-11.0 [facility] Serum or plasma cholesterol in HDL measurement (mass/volume)Ordered By: Krishna Reynolds on 06-03-2024 Cholesterol in HDL [Mass/Vol] 43 mg/dL >40 [facility] Comment on above: National Cholesterol Education Program (NCEP) guidelines:<40 mg/dL: Low HDL-cholesterol (major risk factor for CHD)>= 60 mg/dL: High HDL-cholesterol (negative risk factor for CHD)HDL-cholesterol is affected by a number of factors, e.g. smoking, exercise, hormones, sex and age. Serum or plasma cholesterol measurement (mass/volume)Ordered By: Krishna Reynolds on 06-03-2024 Cholesterol [Mass/Vol] 171 mg/dL <201 [facility] Comment on above: Cholesterol level, D esirable <200 mg/dLBorderline high cholesterol 200-239 mg/dLHigh cholesterol >=240 mg/dLRecommendations of the NCEP Adult Treatment Panel for the following risk-cutoff thresholds for the [place] population. Serum or plasma urea nitroge n measurement (mass/volume)Ordered By: Krishna Reynolds on 06-03-2024 Urea nitrogen [Mass/Vol] 15 mg/dL 4-19 [facility] Sodium levelOrdered By: Justin Reynolds on 06-03-2024 Sodium [Moles/Vol] 139 mmol/L 133-145 [facility] Total proteinOrdered By: Philippe Reynolds on 06-03-2024 Protein [Mass/Vol] 6.8 g/dL 5.9-8.4 [facility] Triglycerides measurementOrd ered By: Krishna Reynolds on 06-03-2024 Triglyceride [Mass/Vol] 161 mg/dL <199 [facility] Comment on above: The drugs N-Acetylcy steine and Metamizole may falsely depress this assay. Normal range: <150 mg/dLBorderline High: 150-199 mg/dLHigh: 200-499 mg/dLVery High: >500 mg/dL Urine albumin measurement wi detection limit of 20 mg/L or less (mass/volume)Ordered By: Krishna Reynolds on 06-03-2024 Albumin DL <= 20 mg/L (U) [Mass/Vol] 123.0 mg/L NO [facility] EST[facility] MIGUELANGEL MOYA ([id number]) 1950 M Date Time Provider Department 05/25/24 [...] injury (DANIELA) with acute tubular necrosis (ATN) ([facility]) 11/06/2019 CAD (coronary artery [...] 1 tablet by mouth once daily. Insulin [place], Disposable, 32 gauge x 5/32 Use with [...] 1 tablet by mouth once daily. Fish Oil-Bogota-3 Fatty Acids (FISH OIL OMEGA 3-6-9) 300-1,000 [...] agitation Ramipril Seasonal Allergies Other: See Comments Kkruory-Bor-Igy Red* Other: See Comments Muscle aches OBJECTIVE: [...] 3 months or sooner corine Heredia DPM Allergies As of Date: 05/25/2024 Noted Allergy Reaction METOLAZONE 01/15/2022 2 - Rash ALTACE (RAMIPRIL) 12/29/2004 5 - Intolerance BACTRIM (SULFA (more content not included)... Normal [facility] CNCOon 04-14-2024 CNCO Letter Text Normal [facility] CNPNon 04-14-2024 CNPN Telephone (INTMWS) MIGUELANGEL MOYA ([id number]) 1950 M Date Time Provider Department 04/14/24 KRISHNA REYNOLDS INTMWS During your visit today, we recorded the following information about you: Agnieszka Khanna LPN 04/14/2024 1:29 PM Signed Pt brought in handicap parking request. Pcp completed letter. Pt notified both are in medical records for chart picker. Allergies As of Date: 04/14/2024 Noted Allergy Reaction METOLAZONE 01/15/2022 2 - Rash ALTACE (RAMIPRIL) 12/29/2004 5 - Intolerance BACTRIM (SULFAMETHOXAZOLE-TR IMETH*08/15/2020 4 - Hives DIOVAN (VALSARTAN) 12/29/2004 PROPOFOL 02/10/2020 14 - Other: See Comments Comments: agitation RAMIPRIL 11/05/2007 SEASONAL ALLERGIES 08/04/2012 14 - Other: See Comments [id number] REDUCTASE INHIBIT*06/18/2011 14 - Other: See Comments [...] tablet by mouth once daily. - Insulin [place], Disposable, 32 gauge x 5/32 Use with [...] tablet by mouth once daily. - Fish Oil-Bogota-3 Fatty Acids (FISH OIL OMEGA 3-6-9) 300-1,000 [...] [E11.42] 01/30/2006 04/24/2018 Coronary artery disease of [place] artery of thai*10/07/2007 Persistent atrial fibrillation (HCC) [...] allergic rhinitis [J30.89] 11/30/2020 Uncontrolled diabetes mellitus [DVS4851] 03/15/2021 06/07/2023 Hypertensive heart disease with chronic diastol*05/30/2022 Atherosclerosis of aorta (HCC) [I70.0] 03/11/2023 Hydrocele, acquired [N43.3] 07/04/2023 12/11/19 (more content not included)... Normal [facility] CNOVon 02-10-2024 CNOV Office Visit (INTMWS) MIGUELANGEL MOYA ([id number]) 1950 M Date Time Provider Department 02/10/24 6:00 PM KRISHNA REYNOLDS INTMWS During your visit today, we recorded the following information about you: Temperature Pulse Respiration Blood pressure 96.9 degrees 80/minute 18/minute 122/68 Weight 125.4 kg Krishna Reynolds MD 02/10/2024 6:47 PM Signed This note was created using NoteWriter. 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 Insulin [place], Disposable, 32 gauge x 5/32 Use with [...] 1 tablet by mouth once daily. Fish Oil-Bogota-3 Fatty Acids (FISH OIL OMEGA 3-6-9) 300-1,000 [...] Mental Sta (more content not included)... Normal [facility] [place] Basophil percentageOrdered B y: Krishna Reynolds on 05-31-2023 Bilirubin [Mass/Vol] 0.70 mg/dL 0.20-1.00 [facility] Comment on above: For patients on eltr ombopag therapy, use of Dimension [place] TBIL is not recommended. Chloride [Moles/Vol] 106 mmol/L 98-107 [facility] Cholesterol [Mass/Vol] 182 mg/dL <200 [facility] Comment on above: <200 mg/dL Desirable 200-240 mg/dL Borderline >240 mg/dL High Risk Glucose [Mass/Vol] 115 mg/dL 74-106 [facility] Comment on above: Fasting Glucose resu lt from 100 to 125 mg/dL suggests IMPAIRED HOMEOSTASIS per A.D.A. criteria. Potassium [Moles/Vol] 4.2 mmol/L 3.5-5.1 [facility] Comment on above: Slight Hemolysis, Re sult may be falsely increased. Protein [Mass/Vol] 7.2 g/dL 6.4-8.2 [facility] Sodium [Moles/Vol] 139 mmol/L 136-145 [facility] Triglyceride [Mass/Vol] 149 mg/dL <199 [facility] Comment on above: The drugs N-Acetylcy steine and Metamizole may falsely depress this assay.Serum Triglycerides Reference Interval Normal <150 mg/dL Borderline high 150 - 199 mg/dL High 200 - 499 mg/dL Very High > or = 500 mg/dL Laboratory - Chemistry and C hemistry - challengeOrdered By: Krishna Reynolds on 05-31-2023 Albumin/Globulin [Mass ratio] 0.8 {ratio} 0.9-2.4 [facility] ALP [Catalytic activity/Vol] 85 U/L 45-117 [facility] ALT [Catalytic activity/Vol] 27 U/L 16-61 [facility] Cholesterol in HDL [Mass/Vol] 43 mg/dL >40 [facility] Comment on above: The drugs N-Acetylcy steine and Metamizole may falsely depress this assay. Reference Range HDL <40 mg/dL Low HDL Cholesterol HDL >or= 60 mg/dL High HDL Cholesterol Cholesterol in LDL [Mass/Vol] 109 mg/dL 0-130 [facility] CO2 [Moles/Vol] 24.0 mmol/L 21.0-32.0 [facility] Globulin (S) [Mass/Vol] 3.9 g/dL 2.2-4.2 [facility] Urea nitrogen/Creatinine [Mass ratio] 14.4 mg/mg 10-20 [facility] No Panel InformationOrdered By: Krishna Reynolds on 05-31-2023 Estimated GFR (MDRD) Amer 90 mL/min >60 [facility] Comment on above: GFR Calc Estimated GFR (MDRD) Non-Af Amer 74 mL/min >60 [facility] Comment on above: Non- GFR Calc VLDL Cholesterol 30 mg/dL 5-40 [facility] Serum or plasma calcium monroe urement (mass/volume)Ordered By: Krishna Reynolds on 05-31-2023 Calcium [Mass/Vol] 9.7 mg/dL 8.5-10.1 [facility] Serum or plasma creatinine m easurement (mass/volume)Ordered By: Krishna Reynolds on 05-31-2023 Creatinine [Mass/Vol] 1.04 mg/dL 0.70-1.30 [facility] Comment on above: The validity of the calculated GFR & GFRAA in patients over 70 years has not been determined. Clinical correlation is essential. Serum or plasma urea nitroge n measurement (mass/volume)Ordered By: Krishna Reynolds on 05-31-2023 Urea nitrogen [Mass/Vol] 15 mg/dL 7-18 [facility] Thin prep Papanicolaou smear with manual screeningOrdered By: Krishna Reynolds on 05-31-2023 Thin prep Papanicolaou smear with manual screening 3.3 g/dL 3.2-5.0 [facility] Thin prep Papanicolaou smear with manual screening 28 U/L 15-37 [facility] Comment on above: Slight Hemolysis, Re sult may be falsely increased. Thin prep Papanicolaou smear with manual screening 9 5-15 [facility] Whole blood hemoglobin A1c/t otal hemoglobin ratio (mass fraction)Ordered By: Krishna Reynolds on 05-31-2023 HbA1c (Bld) [Mass fraction] 5.7 % 3.8-5.6 [facility] Comment on above: Normal < 5.7 % Predi abetic 5.7 - 6.4 % Diabetic >or= 6.5 % Please note range changes. Basophil percentageOrdered B y: Wood Kraus on 02-15-2023 Basophil percentage 3.6 mg/dL 2.5-4.9 [facility] Chloride [Moles/Vol] 105 mmol/L 98-107 [facility] Glucose [Mass/Vol] 75 mg/dL 74-106 [facility] Potassium [Moles/Vol] 4.2 mmol/L 3.5-5.1 [facility] Sodium [Moles/Vol] 138 mmol/L 136-145 [facility] WBC (Bld) [#/Vol] 5.8 10*3/uL 4.4-11.0 [facility] Blood erythrocytes count (nu mber/volume)Ordered By: Wood Kraus on 02-15-2023 RBC (Bld) [#/Vol] 5.17 10*6/uL 4.6-6.2 [facility] Blood hemoglobin measurement (mass/volume)Ordered By: Wood Kraus on 02-15-2023 Hemoglobin (Bld) [Mass/Vol] 15.6 g/dL 13.0-16.5 [facility] Blood platelet mean volumeOr dered By: Wood Kraus on 02-15-2023 Platelet mean volume (Bld) [Entitic vol] 8.6 fL 6.2-12.0 [facility] Determination of erythrocyte mean corpuscular volume (MCV)Ordered By: Wood Kraus on 02-15-2023 MCV (RBC) [Entitic vol] 92.3 fL 80-94 [facility] Hematocrit Auto (Bld) [Volum e fraction]Ordered By: Wood Kraus on 02-15-2023 Hematocrit (Bld) [Volume fraction] 47.7 % 40-54 [facility] Laboratory - Chemistry and C hemistry - challengeOrdered By: Wood Kraus on 02-15-2023 CO2 [Moles/Vol] 27.0 mmol/L 21.0-32.0 [facility] Urea nitrogen/Creatinine [Mass ratio] 14.4 mg/mg 10-20 [facility] - Hematology and Cell countsOrdered By: Wood Kraus on 02-15-2023 Erythrocyte distribution width (RBC) [Entitic vol] 46.6 fL 35.1-43.9 [facility] Erythrocyte distribution width (RBC) [Ratio] 13.5 % 11.6-14.6 [facility] MCH (RBC) [Entitic mass] 30.2 pg 27.0-32.0 [facility] MCHC Auto (RBC) [Mass/Vol]Or dered By: Wood Kraus on 02-15-2023 MCHC (RBC) [Mass/Vol] 32.7 g/dL 32-36 [facility] No Panel InformationOrdered By: Wood Kraus on 02-15-2023 Estimated GFR (MDRD) Amer 78 mL/min >60 [facility] Comment on above: GFR Calc Estimated GFR (MDRD) Non-Af Amer 64 mL/min >60 [facility] Comment on above: Non- GFR Calc Parathyroid Hormone (Intact) 152.6 pg/mL 18.4-80.1 [facility] Vitamin D 25-Hydroxy 42.6 ng/mL [facility] Comment on above: Vitamin D 25(OH) Sta tus Range Deficiency <20 ng/mL (50nmol/L) Insufficiency 20 - 30 ng/mL (50 - 75 nmol/L) Sufficiency 30 - 100 ng/mL (75 - 250 nmol/L) Toxicity >100 ng/mL (>250 nmol/L) Platelets bldOrdered By: Gabriel Kraus on 02-15-2023 Platelets (Bld) [#/Vol] 245 10*3/uL 150-450 [facility] Serum or plasma albumin [place]roe urement (mass/volume)Ordered By: Wood Kraus on 02-15-2023 Albumin [Mass/Vol] 3.2 g/dL 3.2-5.0 [facility] Serum or plasma calcium monroe urement (mass/volume)Ordered By: Wood Kraus on 02-15-2023 Calcium [Mass/Vol] 8.9 mg/dL 8.5-10.1 [facility] Serum or plasma creatinine m easurement (mass/volume)Ordered By: Wood Kraus on 02-15-2023 Creatinine [Mass/Vol] 1.18 mg/dL 0.70-1.30 [facility] Comment on above: The validity of the calculated GFR & GFRAA in patients over 70 years has not been determined. Clinical correlation is essential. Serum or plasma urea nitroge n measurement (mass/volume)Ordered By: Wood Kraus on 02-15-2023 Urea nitrogen [Mass/Vol] 17 mg/dL 7-18 [facility] Urine creatinine measurement (mass/volume)Ordered By: Wood Kraus on 02-15-2023 Creatinine (U) [Mass/Vol] 38.90 mg/dL NO RANGE EST. [facility] Urine protein measurement (m ass/volume)Ordered By: Wood Kraus on 02-15-2023 Protein (U) [Mass/Vol] mg/dL 0.0-11.8 [facility] Urine protein/creatinine mas s ratioOrdered By: Wood Kraus on 02-15-2023 Protein/Creatinine (U) [Mass ratio] TNP [facility] Comment on above: Test not performed Basophil percentageOrdered B y: Krishna Reynolds on 11-30-2022 Chloride [Moles/Vol] 104 mmol/L 98-107 [facility] Cholesterol [Mass/Vol] 225 mg/dL <200 [facility] Comment on above: <200 mg/dL Desirable 200-240 mg/dL Borderline >240 mg/dL High Risk Glucose [Mass/Vol] 107 mg/dL 74-106 [facility] Comment on above: Fasting Glucose resu lt from 100 to 125 mg/dL suggests IMPAIRED HOMEOSTASIS per A.D.A. criteria. Potassium [Moles/Vol] 4.4 mmol/L 3.5-5.1 [facility] Comment on above: Slight Hemolysis, Re sult may be falsely increased. Sodium [Moles/Vol] 138 mmol/L 136-145 [facility] Triglyceride [Mass/Vol] 144 mg/dL <199 [facility] Comment on above: The drugs N-Acetylcy steine and Metamizole may falsely depress this assay.Serum Triglycerides Reference Interval Normal <150 mg/dL Borderline high 150 - 199 mg/dL High 200 - 499 mg/dL Very High > or = 500 mg/dL Laboratory - Chemistry and C hemistry - challengeOrdered By: Krishna Reynolds on 11-30-2022 CO2 [Moles/Vol] 29.0 mmol/L 21.0-32.0 [facility] Urea nitrogen/Creatinine [Mass ratio] 15.2 mg/mg 10-20 [facility] No Panel InformationOrdered By: Krishna Reynolds on 11-30-2022 Estimated GFR (MDRD) Amer 83 mL/min >60 [facility] Comment on above: GFR Calc Estimated GFR (MDRD) Non-Af Amer 68 mL/min >60 [facility] Comment on above: Non- GFR Calc Serum or plasma calcium [place] urement (mass/volume)Ordered By: Krishna Reynolds on 11-30-2022 Calcium [Mass/Vol] 9.0 mg/dL 8.5-10.1 [facility] Serum or plasma cholesterol in HDL measurement (mass/volume)Ordered By: Krishna Reynolds on 11-30-2022 Cholesterol in HDL [Mass/Vol] 42 mg/dL >40 [facility] Comment on above: The drugs N-Acetylcy steine and Metamizole may falsely depress this assay. Reference Range HDL <40 mg/dL Low HDL Cholesterol HDL >or= 60 mg/dL High HDL Cholesterol Serum or plasma cholesterol in VLDL measurement (mass/volume)Ordered By: Krishna Reynolds on 11-30-2022 Cholesterol in VLDL [Mass/Vol] 29 mg/dL 5-40 [facility] Serum or plasma creatinine m easurement (mass/volume)Ordered By: Krishna Reynolds on 11-30-2022 Creatinine [Mass/Vol] 1.12 mg/dL 0.70-1.30 [facility] Comment on above: The validity of the calculated GFR & GFRAA in patients over 70 years has not been determined. Clinical correlation is essential. Serum or plasma low density lipoprotein (LDL) cholesterol measurement (mass/volume)Ordered By: Krishna Reynolds on 11-30-2022 Cholesterol in LDL [Mass/Vol] 154 mg/dL 0-130 [facility] Serum or plasma urea nitroge n measurement (mass/volume)Ordered By: Krishna Reynolds on 11-30-2022 Urea nitrogen [Mass/Vol] 17 mg/dL 7-18 [facility] Thin prep Papanicolaou smear with manual screeningOrdered By: Krishna Reynolds on 11-30-2022 Thin prep Papanicolaou smear with manual screening 5 5-15 [facility] Whole blood hemoglobin A1c/t otal hemoglobin ratio (mass fraction)Ordered By: Krishna Reynolds on 11-30-2022 HbA1c (Bld) [Mass fraction] 5.9 % 3.8-5.6 [facility] Comment on above: Normal < 5.7 % Predi abetic 5.7 - 6.4 % Diabetic >or= 6.5 % Please note range changes. ECHOon 08-27-2022 [facility] LVEF TRANSTHORACIC ECHOon LV Ejection Fraction 61 % [facility] Basophil percentageOrdered B y: Dr. Kraus on 08-17-2022 Basophil percentage 3.8 mg/dL 2.5-4.9 [facility] Chloride [Moles/Vol] 103 mmol/L 98-107 [facility] Glucose [Mass/Vol] 97 mg/dL 74-106 [facility] Potassium [Moles/Vol] 4.1 mmol/L 3.5-5.1 [facility] Sodium [Moles/Vol] 139 mmol/L 136-145 [facility] WBC (Bld) [#/Vol] 5.5 10*3/uL 4.4-11.0 [facility] Blood erythrocytes count (nu mber/volume)Ordered By: Dr. Kraus on 08-17-2022 RBC (Bld) [#/Vol] 5.09 10*6/uL 4.6-6.2 [facility] Blood hemoglobin measurement (mass/volume)Ordered By: Dr. Kraus on 08-17-2022 Hemoglobin (Bld) [Mass/Vol] 15.2 g/dL 13.0-16.5 [facility] Blood platelet mean volumeOr dered By: Dr. Kraus on 08-17-2022 Platelet mean volume (Bld) [Entitic vol] 9.3 fL 6.2-12.0 [facility] Determination of erythrocyte mean corpuscular volume (MCV)Ordered By: Dr. Kraus on 08-17-2022 MCV (RBC) [Entitic vol] 92.1 fL 80-94 [facility] Hematocrit Auto (Bld) [Volum e fraction]Ordered By: Dr. Kraus on 08-17-2022 Hematocrit (Bld) [Volume fraction] 46.9 % 40-54 [facility] Laboratory - Chemistry and C hemistry - challengeOrdered By: Dr. Kraus on 08-17-2022 CO2 [Moles/Vol] 31.0 mmol/L 21.0-32.0 [facility] Urea nitrogen/Creatinine [Mass ratio] 15.3 mg/mg 10-20 [facility] - Hematology and Cell countsOrdered By: Dr. Kraus on 08-17-2022 Erythrocyte distribution width (RBC) [Entitic vol] 45.6 fL 35.1-43.9 [facility] Erythrocyte distribution width (RBC) [Ratio] 13.4 % 11.6-14.6 [facility] MCH (RBC) [Entitic mass] 29.9 pg 27.0-32.0 [facility] MCHC Auto (RBC) [Mass/Vol]Or dered By: Dr. Kraus on 08-17-2022 MCHC (RBC) [Mass/Vol] 32.4 g/dL 32-36 [facility] No Panel InformationOrdered By: Dr. Kraus on 08-17-2022 Estimated GFR (MDRD) Amer 69 mL/min >60 [facility] Comment on above: GFR Calc Estimated GFR (MDRD) Non-Af Amer 57 mL/min >60 [facility] Comment on above: Non- GFR Calc Parathyroid Hormone (Intact) 206.5 pg/mL 18.4-80.1 [facility] Vitamin D 25-Hydroxy 39.2 ng/mL [facility] Comment on above: Vitamin D 25(OH) Sta tus Range Deficiency <20 ng/mL (50nmol/L) Insufficiency 20 - 30 ng/mL (50 - 75 nmol/L) Sufficiency 30 - 100 ng/mL (75 - 250 nmol/L) Toxicity >100 ng/mL (>250 nmol/L) Platelets bldOrdered By: Dr. Kraus on 08-17-2022 Platelets (Bld) [#/Vol] 250 10*3/uL 150-450 [facility] Serum or plasma albumin [place] urement (mass/volume)Ordered By: Dr. Kraus on 08-17-2022 Albumin [Mass/Vol] 3.3 g/dL 3.2-5.0 [facility] Serum or plasma calcium [place]roe urement (mass/volume)Ordered By: Dr. Kraus on 08-17-2022 Calcium [Mass/Vol] 8.9 mg/dL 8.5-10.1 [facility] Serum or plasma creatinine m easurement (mass/volume)Ordered By: Dr. Kraus on 08-17-2022 Creatinine [Mass/Vol] 1.31 mg/dL 0.70-1.30 [facility] Comment on above: The validity of the calculated GFR & GFRAA in patients over 70 years has not been determined. Clinical correlation is essential. Serum or plasma urea nitroge n measurement (mass/volume)Ordered By: Dr. Kraus on 08-17-2022 Urea nitrogen [Mass/Vol] 20 mg/dL 7-18 [facility] Urine creatinine measurement (mass/volume)Ordered By: Dr. Kraus on 08-17-2022 Creatinine (U) [Mass/Vol] 54.90 mg/dL NO RANGE EST. [facility] Urine protein measurement (m ass/volume)Ordered By: Dr. Kraus on 08-17-2022 Protein (U) [Mass/Vol] 8.1 mg/dL 0.0-11.8 [facility] Urine protein/creatinine mas s ratioOrdered By: Dr. Kraus on 08-17-2022 Protein/Creatinine (U) [Mass ratio] 148 mg/g CRE 0-200 [facility] Basophil percentageOrdered B y: Leila Older on 05-25-2022 Bilirubin [Mass/Vol] 0.90 mg/dL 0.20-1.00 [facility] Comment on above: For patients on eltr ombopag therapy, use of Dimension [place] TBIL is not recommended. Chloride [Moles/Vol] 100 mmol/L 98-107 [facility] Cholesterol [Mass/Vol] 251 mg/dL <200 [facility] Comment on above: <200 mg/dL Desirable 200-240 mg/dL Borderline >240 mg/dL High Risk Glucose [Mass/Vol] 82 mg/dL 74-106 [facility] Potassium [Moles/Vol] 4.3 mmol/L 3.5-5.1 [facility] Comment on above: Moderate Hemolysis, Result may be falsely increased. Protein [Mass/Vol] 7.3 g/dL 6.4-8.2 [facility] Sodium [Moles/Vol] 138 mmol/L 136-145 [facility] Triglyceride [Mass/Vol] 145 mg/dL <199 [facility] Comment on above: The drugs N-Acetylcy steine and Metamizole may falsely depress this assay.Serum Triglycerides Reference Interval Normal <150 mg/dL Borderline high 150 - 199 mg/dL High 200 - 499 mg/dL Very High > or = 500 mg/dL WBC (Bld) [#/Vol] 5.2 10*3/uL 4.4-11.0 [facility] Blood erythrocytes count (nu mber/volume)Ordered By: Leila [facility] on 05-25-2022 RBC (Bld) [#/Vol] 4.91 10*6/uL 4.6-6.2 [facility] Blood hemoglobin measurement (mass/volume)Ordered By: [facility] on 05-25-2022 Hemoglobin (Bld) [Mass/Vol] 14.7 g/dL 13.0-16.5 [facility] Blood platelet mean volumeOr dered By: [facility] on 05-25-2022 Platelet mean volume (Bld) [Entitic vol] 9.2 fL 6.2-12.0 [facility] Determination of erythrocyte mean corpuscular volume (MCV)Ordered By: Leila [facility] on 05-25-2022 MCV (RBC) [Entitic vol] 91.6 fL 80-94 [facility] Hematocrit Auto (Bld) [Volum e fraction]Ordered By: [facility] on 05-25-2022 Hematocrit (Bld) [Volume fraction] 45.0 % 40-54 [facility] - Chemistry and C hemistry - challengeOrdered By: Leila Older on 05-25-2022 ALP [Catalytic activity/Vol] 74 U/L 45-117 [facility] ALT [Catalytic activity/Vol] 24 U/L 16-61 [facility] CO2 [Moles/Vol] 31.0 mmol/L 21.0-32.0 [facility] Globulin (S) [Mass/Vol] 3.9 g/dL 2.2-4.2 [facility] Urea nitrogen/Creatinine [Mass ratio] 15.2 mg/mg 10-20 [facility] - Hematology and Cell countsOrdered By: Leila Older on 05-25-2022 Erythrocyte distribution width (RBC) [Entitic vol] 43.6 fL 35.1-43.9 [facility] Erythrocyte distribution width (RBC) [Ratio] 13.1 % 11.6-14.6 [facility] MCH (RBC) [Entitic mass] 29.9 pg 27.0-32.0 [facility] MCHC Auto (RBC) [Mass/Vol]Or dered By: Lelia Older on 05-25-2022 MCHC (RBC) [Mass/Vol] 32.7 g/dL 32-36 [facility] No Panel InformationOrdered By: Leila Older on 05-25-2022 Estimated GFR (MDRD) Amer 83 mL/min >60 [facility] Comment on above: GFR Calc Estimated GFR (MDRD) Non-Af Amer 69 mL/min >60 [facility] Comment on above: Non- GFR Calc Urine Microalbumin/Creatinine Ratio 21.5 mg/g CRE <30 [facility] Platelets bldOrdered By: Leila Older on 05-25-2022 Platelets (Bld) [#/Vol] 235 10*3/uL 150-450 [facility] Serum or plasma albumin [place] urement (mass/volume)Ordered By: Leila Older on 05-25-2022 Albumin [Mass/Vol] 3.4 g/dL 3.2-5.0 [facility] Serum or plasma albumin/glob ulin mass ratioOrdered By: Leila Older on 05-25-2022 Albumin/Globulin [Mass ratio] 0.9 {ratio} 0.9-2.4 [facility] Serum or plasma calcium [place]roe urement (mass/volume)Ordered By: [facility] on 05-25-2022 Calcium [Mass/Vol] 9.6 mg/dL 8.5-10.1 [facility] Serum or plasma cholesterol in HDL measurement (mass/volume)Ordered By: [facility] on 05-25-2022 Cholesterol in HDL [Mass/Vol] 42 mg/dL >40 [facility] Comment on above: The drugs N-Acetylcy steine and Metamizole may falsely depress this assay. Reference Range HDL <40 mg/dL Low HDL Cholesterol HDL >or= 60 mg/dL High HDL Cholesterol Serum or plasma cholesterol in VLDL measurement (mass/volume)Ordered By: [facility] on 05-25-2022 Cholesterol in VLDL [Mass/Vol] 29 mg/dL 5-40 [facility] Serum or plasma creatinine m easurement (mass/volume)Ordered By: [facility] on 05-25-2022 Creatinine [Mass/Vol] 1.12 mg/dL 0.70-1.30 [facility] Comment on above: The validity of the calculated GFR & GFRAA in patients over 70 years has not been determined. Clinical correlation is essential. Serum or plasma low density lipoprotein (LDL) cholesterol measurement (mass/volume)Ordered By: [facility] on 05-25-2022 Cholesterol in LDL [Mass/Vol] 180 mg/dL 0-130 [facility] Serum or plasma urea nitroge n measurement (mass/volume)Ordered By: [facility] 05-25-2022 Urea nitrogen [Mass/Vol] 17 mg/dL 7-18 [facility] Thin prep Papanicolaou smear with manual screeningOrdered By: [facility] 05-25-2022 Thin prep Papanicolaou smear with manual screening 37 U/L 15-37 [facility] Comment on above: Moderate Hemolysis, Result may be falsely increased. Thin prep Papanicolaou smear with manual screening 7 5-15 [facility] Thin prep Papanicolaou smear with manual screening 32.0 mg/L NO RANGE EST. [facility] Urine creatinine measurement (mass/volume)Ordered By: [facility] on 05-25-2022 Creatinine (U) [Mass/Vol] 149.00 mg/dL NO RANGE EST. [facility] Whole blood hemoglobin A1c/t otal hemoglobin ratio (mass fraction)Ordered By: Leila Older on 05-25-2022 HbA1c (Bld) [Mass fraction] 5.8 % 3.8-5.6 [facility] Comment on above: Normal < 5.7 % Predi abetic 5.7 - 6.4 % Diabetic >or= 6.5 % Please note range changes. Basophil percentageOrdered B y: Dr. Kraus on 02-20-2022 Chloride [Moles/Vol] 100 mmol/L 98-107 [facility] Glucose [Mass/Vol] 78 mg/dL 74-106 [facility] Potassium [Moles/Vol] 4.1 mmol/L 3.5-5.1 [facility] Sodium [Moles/Vol] 138 mmol/L 136-145 [facility] Laboratory - Chemistry and C hemistry - challengeOrdered By: Dr. Kraus on 02-20-2022 CO2 [Moles/Vol] 31.0 mmol/L 21.0-32.0 [facility] Urea nitrogen/Creatinine [Mass ratio] 16.5 mg/mg 10-20 [facility] No Panel InformationOrdered By: Dr. Kraus on 02-20-2022 Estimated GFR (MDRD) Amer 81 mL/min >60 [facility] Comment on above: GFR Calc Estimated GFR (MDRD) Non-Af Amer 67 mL/min >60 [facility] Comment on above: Non- GFR Calc Serum or plasma calcium monroe urement (mass/volume)Ordered By: Dr. Kraus on 02-20-2022 Calcium [Mass/Vol] 8.6 mg/dL 8.5-10.1 [facility] Serum or plasma creatinine m easurement (mass/volume)Ordered By: Dr. Karus on 02-20-2022 Creatinine [Mass/Vol] 1.15 mg/dL 0.70-1.30 [facility] Comment on above: The validity of the calculated GFR & GFRAA in patients over 70 years has not been determined. Clinical correlation is essential. Serum or plasma urea nitroge n measurement (mass/volume)Ordered By: Dr. Kraus on 02-20-2022 Urea nitrogen [Mass/Vol] 19 mg/dL 7-18 [facility] Thin prep Papanicolaou smear with manual screeningOrdered By: Dr. Kraus on 02-20-2022 Thin prep Papanicolaou smear with manual screening 7 5-15 [facility] Urine creatinine measurement (mass/volume)Ordered By: Dr. Kraus on 02-20-2022 Creatinine (U) [Mass/Vol] 68.10 mg/dL NO RANGE EST. [facility] Urine protein measurement (m ass/volume)Ordered By: Dr. Kraus on 02-20-2022 Protein (U) [Mass/Vol] 8.5 mg/dL 0.0-11.8 [facility] Urine protein/creatinine mas s ratioOrdered By: Dr. Kraus on 02-20-2022 Protein/Creatinine (U) [Mass ratio] 125 mg/g CRE 0-200 [facility] Basophil percentageon 2021 Chloride [Moles/Vol] 102 mmol/L 98-107 [facility] Work Phone: Glucose [Mass/Vol] 81 mg/dL 74-106 [facility] Work Phone: Potassium [Moles/Vol] 4.3 mmol/L 3.5-5.1 [facility] Work Phone: Sodium [Moles/Vol] 138 mmol/L 136-145 [facility] Work Phone: Laboratory - Chemistry and C hemistry - challengeon 01-12-2022 CO2 [Moles/Vol] 32.0 mmol/L 21.0-32.0 [facility] Work Phone: Urea nitrogen/Creatinine [Mass ratio] 17.5 mg/mg 10-20 [facility] Work Phone: No Panel Informationon 01-12 Estimated GFR (MDRD) Amer 77 mL/min >60 [facility] Work Phone: Comment on above: GFR Calc Estimated GFR (MDRD) Non-Af Amer 63 mL/min >60 [facility] Work Phone: Comment on above: Non- GFR Calc Serum or plasma calcium monroe urement (mass/volume)on 01-12-2022 Calcium [Mass/Vol] 9.2 mg/dL 8.5-10.1 [facility] Work Phone: [phone] Serum or plasma creatinine m easurement (mass/volume)on 01-12-2022 Creatinine [Mass/Vol] 1.20 mg/dL 0.70-1.30 [facility] Work Phone: Comment on above: The validity of the calculated GFR & GFRAA in patients over 70 years has not been determined. Clinical correlation is essential. Serum or plasma urea nitroge n measurement (mass/volume)on 01-12-2022 Urea nitrogen [Mass/Vol] 21 mg/dL 7-18 [facility] Work Phone: [phone] Thin prep Papanicolaou smear with manual screeningon 01-12-2022 Thin prep Papanicolaou smear with manual screening 4 5-15 [facility] Work Phone: [phone] Whole blood hemoglobin A1c/t otal hemoglobin ratio (mass fraction)on 01-12-2022 HbA1c (Bld) [Mass fraction] 6.3 % 3.8-5.6 [facility] Work Phone: Comment on above: Normal < 5.7 % Predi abetic 5.7 - 6.4 % Diabetic >or= 6.5 % Please note range changes. Basophil percentageon 2021 Chloride [Moles/Vol] 102 mmol/L 98-107 [facility] Work Phone: Cholesterol [Mass/Vol] 282 mg/dL <200 [facility] Work Phone: Comment on above: <200 mg/dL Desirable 200-240 mg/dL Borderline >240 mg/dL High Risk Glucose [Mass/Vol] 145 mg/dL 74-106 [facility] Work Phone: Comment on above: Fasting Glucose resu lt greater than or equal to 126 mg/dL suggests DIABETES MELLITUS per A.D.A. criteria. Potassium [Moles/Vol] 4.3 mmol/L 3.5-5.1 [facility] Work Phone: Sodium [Moles/Vol] 137 mmol/L 136-145 [facility] Work Phone: Triglyceride [Mass/Vol] 181 mg/dL <199 [facility] Work Phone: Comment on above: The drugs N-Acetylcy steine and Metamizole may falsely depress this assay.Serum Triglycerides Reference Interval Normal <150 mg/dL Borderline high 150 - 199 mg/dL High 200 - 499 mg/dL Very High > or = 500 mg/dL Laboratory - Chemistry and C hemistry - challengeon 08-23-2021 CO2 [Moles/Vol] 28.0 mmol/L 21.0-32.0 [facility] Work Phone: Urea nitrogen/Creatinine [Mass ratio] 26.3 mg/mg 10-20 [facility] Work Phone: No Panel Informationon 08-23 Estimated GFR (MDRD) Amer 78 mL/min >60 [facility] Work Phone: Comment on above: GFR Calc Estimated GFR (MDRD) Non-Af Amer 65 mL/min >60 [facility] Work Phone: Comment on above: Non- GFR Calc Serum or plasma calcium monroe urement (mass/volume)on 08-23-2021 Calcium [Mass/Vol] 9.3 mg/dL 8.5-10.1 [facility] Work Phone: Serum or plasma cholesterol in HDL measurement (mass/volume)on 08-23-2021 Cholesterol in HDL [Mass/Vol] 43 mg/dL >40 [facility] Work Phone: Comment on above: The drugs N-Acetylcy steine and Metamizole may falsely depress this assay. Reference Range HDL <40 mg/dL Low HDL Cholesterol HDL >or= 60 mg/dL High HDL Cholesterol Serum or plasma cholesterol in VLDL measurement (mass/volume)on 08-23-2021 Cholesterol in VLDL [Mass/Vol] 36 mg/dL 5-40 [facility] Work Phone: [phone] Serum or plasma creatinine m easurement (mass/volume)on 08-23-2021 Creatinine [Mass/Vol] 1.18 mg/dL 0.70-1.30 [facility] Work Phone: Comment on above: The validity of the calculated GFR & GFRAA in patients over 70 years has not been determined. Clinical correlation is essential. Serum or plasma low density lipoprotein (LDL) cholesterol measurement (mass/volume)on 08-23-2021 Cholesterol in LDL [Mass/Vol] 203 mg/dL 0-130 [facility] Work Phone: Serum or plasma urea nitroge n measurement (mass/volume)on 08-23-2021 Urea nitrogen [Mass/Vol] 31 mg/dL 7-18 [facility] Work Phone: Thin prep Papanicolaou smear with manual screeningon 08-23-2021 Thin prep Papanicolaou smear with manual screening 7 5-15 [facility] Work Phone: Whole blood hemoglobin A1c/t otal hemoglobin ratio (mass fraction)on 08-23-2021 HbA1c (Bld) [Mass fraction] 6.5 % 3.8-5.6 [facility] Work Phone: Comment on above: Normal < 5.7 % Predi abetic 5.7 - 6.4 % Diabetic >or= 6.5 % Please note range changes. Basophil percentageon 2021 Chloride [Moles/Vol] 101 mmol/L 98-107 [facility] Work Phone: Glucose [Mass/Vol] 174 mg/dL 74-106 [facility] Work Phone: Comment on above: Fasting Glucose resu lt greater than or equal to 126 mg/dL suggests DIABETES MELLITUS per A.D.A. criteria. Potassium [Moles/Vol] 4.6 mmol/L 3.5-5.1 [facility] Work Phone: Sodium [Moles/Vol] 135 mmol/L 136-145 [facility] Work Phone: Laboratory - Chemistry and C hemistry - challengeon 08-22-2021 CO2 [Moles/Vol] 27.0 mmol/L 21.0-32.0 [facility] Work Phone: Urea nitrogen/Creatinine [Mass ratio] 22.7 mg/mg 10-20 [facility] Work Phone: No Panel Informationon 08-22 Estimated GFR (MDRD) Amer 69 mL/min >60 [facility] Work Phone: Comment on above: GFR Calc Estimated GFR (MDRD) Non-Af Amer 57 mL/min >60 [facility] Work Phone: Comment on above: Non- GFR Calc Serum or plasma calcium monroe urement (mass/volume)on 08-22-2021 Calcium [Mass/Vol] 9.0 mg/dL 8.5-10.1 [facility] Work Phone: Serum or plasma creatinine m easurement (mass/volume)on 08-22-2021 Creatinine [Mass/Vol] 1.32 mg/dL 0.70-1.30 [facility] Work Phone: Comment on above: The validity of the calculated GFR & GFRAA in patients over 70 years has not been determined. Clinical correlation is essential. Serum or plasma urea nitroge n measurement (mass/volume)on 08-22-2021 Urea nitrogen [Mass/Vol] 30 mg/dL 7-18 [facility] Work Phone: Thin prep Papanicolaou smear with manual screeningon 08-22-2021 Thin prep Papanicolaou smear with manual screening 7 5-15 [facility] Work Phone: Urine creatinine measurement (mass/volume)on 08-22-2021 Creatinine (U) [Mass/Vol] 46.70 mg/dL NO RANGE EST. [facility] Work Phone: Urine protein measurement (m ass/volume)on 08-22-2021 Protein (U) [Mass/Vol] mg/dL 0.0-11.8 [facility] Work Phone: [phone] Urine protein/creatinine mas s ratioon 08-22-2021 Protein/Creatinine (U) [Mass ratio] [facility] Work Phone: Comment on above: Test not performed Basophil percentageon 2021 Cholesterol [Mass/Vol] 264 mg/dL <200 [facility] Work Phone: Comment on above: <200 mg/dL Desirable 200-240 mg/dL Borderline >240 mg/dL High Risk Triglyceride [Mass/Vol] 275 mg/dL [facility] Work Phone: Comment on above: The drugs N-Acetylcy steine and Metamizole may falsely depress this assay.Serum Triglycerides Reference Interval Normal <150 mg/dL Borderline high 150 - 199 mg/dL High 200 - 499 mg/dL Very High > or = 500 mg/dL Serum or plasma cholesterol in HDL measurement (mass/volume)on 05-18-2021 Cholesterol in HDL [Mass/Vol] 43 mg/dL [facility] Work Phone: Comment on above: The drugs N-Acetylcy steine and Metamizole may falsely depress this assay. Reference Range HDL <40 mg/dL Low HDL Cholesterol HDL >or= 60 mg/dL High HDL Cholesterol Serum or plasma cholesterol in VLDL measurement (mass/volume)on 05-18-2021 Cholesterol in VLDL [Mass/Vol] 55 mg/dL 5-40 [facility] Work Phone: Serum or plasma low density lipoprotein (LDL) cholesterol measurement (mass/volume)on 05-18-2021 Cholesterol in LDL [Mass/Vol] 166 mg/dL 0-130 [facility] Work Phone: Whole blood hemoglobin A1c/t otal hemoglobin ratio (mass fraction)on 05-18-2021 HbA1c (Bld) [Mass fraction] 8.1 % 3.8-5.6 [facility] Work Phone: Comment on above: Normal < 5.7 % Predi abetic 5.7 - 6.4 % Diabetic >or= 6.5 % Please note range changes. XR Foot - left AP and Latera l and obliqueon 09-05-2020 IMPRESSION: Stable postsurgical changes as described Revenue Audit Clerk: ASHUTOSH Transcribe Date/Time: Sep 05 2020 3:09P Dictated by : TIM RUTHERFORD MD This examination was interpreted and the report reviewed and electronically signed by: TIM RUTHERFORD MD on Sep 05 2020 3:10PM [facility] DIVISION OF RADIOLOGY * * *Final Report* [...] of the vasculature. DIVISION OF RADIOLOGY Provider, [facility] [place] - 09/05/2020 * * *Final Report* * [...] IMPRESSION IMPRESSION: Stable postsurgical changes as described Revenue Audit Clerk: ASHUTOSH Transcribe Date/Time: Sep 05 2020 3:09P Dictated by : TIM RUTHERFORD MD This examination was interpreted and the report reviewed and electronically signed by: TIM RUTHERFORD MD on Sep 05 2020 3:10PM EST [facility] Radiology Study observation (narrative) Jane valdez [facility] XR Foot - left AP and Latera l and obliqueOrdered By: Ccf Provider on 09-05-2020 [facility] Jennifer 08-31-2020 CNPN Telephone (AGCARDPOB) MIGUELANGEL MOYA ([id number]) 1950 M Date Time Provider Department 08/31/20 RHONDA BARCLAY During your visit today, we recorded the following information about you: Farrukh Arevalo RN 08/31/2020 9:11 AM Signed Samantha from [facility] Benjamin calls to request clarification for metoprolol tartrate [...] As of Date: 08/31/2020 Noted Allergy Reaction ALTACE (RAMIPRIL) 12/29/2004 5 - Intolerance BACTRIM (SULFAMETHOXAZOLE-TR IMETH*08/15/2020 4 - Hives DIOVAN (VALSARTAN) 12/29/2004 PROPOFOL 02/10/2020 14 - Other: See Comments Comments: agitation RAMIPRIL 11/05/2007 SEASONAL ALLERGIES 08/04/2012 14 - Other: See Comments SVGWSMR-PMR-[id number] REDUCTASE INHIBIT*06/18/2011 14 - Other: See Comments Comments: Muscle aches Date Reviewed: 08/19/2020 Reviewed by: Tami Will RN - Fully Assessed Reason for Visit: Medication Question [4168] Visit Diagnoses: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 Cosign required by RHONDA BARCLAY[[id number]] Medications Disconti (more content not included)... Normal [facility] Jennifer 08-29-2020 [facility] Telephone (AGCARDPOB) MIGUELANGEL MOYA ([id number]) 1950 M Date Time Provider Department 08/29/20 REGULO STOVER During your visit today, we recorded the following information about you: Merrickmarcello Grant RN 08/29/2020 1:15 PM Signed Received [...] ALLERGIES 08/04/2012 14 - Other: See Comments [id number] REDUCTASE INHIBIT*06/18/2011 14 - Other: See Comments Comments: Muscle aches Date Reviewed: 08/19/2020 Reviewed by: Tami Will RN - Fully Assessed Reason for Visit: Patient Update [1234] Visit Diagnoses:Sleep apnea, unspecified type [G47.30] Encounter for surgical aftercare following surgery on the circulatory system [Z48.812] 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 [facility] Telephone (AGCARDPOB) MIGUELANGEL MOYA ([id number]) 1950 Date Time Provider Department 07/22/20 REGULO STOVER AGCARDPOB During your visit today, [...] ALLERGIES 08/04/2012 14 - Other: See Comments [id number]-GUB-[id number] REDUCTASE INHIBIT*06/18/2011 14 - Other: See Comments Comments: Muscle aches Date Reviewed: 07/20/2020 Reviewed by: Danielle Bergman RN - Fully Assessed Reason for Visit: Patient Question [4877] Prescriptions as of 2020 Sig: TORSEMIDE 20 [...] 1 tablet by mouth once d* BASAGLAR KWIKPEN U-100 INSULI* Inject 56 Units subcutaneousl* X [...] [E11.42] 01/30/2006 04/24/2018 Coronary artery disease of sokaogon artery of thai*10/07/2007 Persistent atrial fibrillation (HCC) [...] Encounter Status:Closed by MERRICK GRANT on 08/05/20 [facility] Jennifer 07-11-2020 DANAN Telephone ([facility]) MIGUELANGEL MOYA ([id number]) 1950 M Date Time Provider Department 07/11/20 ERIKA RUIZ (RN) HERMANN During your visit today, we recorded the [...] ALLERGIES 08/04/2012 14 - Other: See Comments [id number] REDUCTASE INHIBIT*06/18/2011 14 - Other: See Comments [...] [E11.42] 01/30/2006 04/24/2018 Coronary artery disease of sokaogon artery of thai*10/07/2007 Persistent atrial fibrillation (HCC) [...] Encounter Status:Closed by ERIKA RUIZ on 07/11/20 [facility] Jennifer 07-08-2020 CNPN Telephone (AGPOB1) MIGUELANGEL MOYA ([id number]) 1950 Date Time Provider Department 07/08/20 MIA SESAY AGPOB1 During your visit today, we recorded the following information about you: Nancy Belcher [facility] [facility] 07/08/2020 5:05 PM Signed ----- Message from [...] center. Patient was seeing Dr. Ceron at [facility] for this issue, but he could only do the surgery at [facility], and patient would prefer to come to [place] instead of [facility] to have this procedure done. Reason for the call/escalation: RFV Not Found If reason for call/escalation is discharge from ED/ER or Hospital, which facility was the patient seen at: n/a Was an appointment scheduled (Y/N): No Person calling if other than patient: Jessica Albert Return call to if other than patient: , Jessica Best contact number: [phone] Elisabeth Silva July 08, 2020 1:21 PM Nancy Belcher [facility] 07/08/2020 5:05 PM Signed Information sent to Dr Sesay for review Nancy Belcher [facility] Nancy Belcher [facility] 07/13/2020 2:49 PM Signed Appointment was made with Miguelangel albert for 08/03/20 Nancycassie Belcher [facility] Allergies As of Date: 07/08/2020 Noted Allergy Reaction ALTACE (RAMIPRIL) 12/29/2004 5 - Intolerance DIOVAN (VALSARTAN) 12/29/2004 PROPOFOL 02/10/2020 14 - Other: See Comments Comments: agitation RAMIPRIL 11/05/2007 SEASONAL ALLERGIES 08/04/2012 14 - Other: See Comments AFOKLYC-COB-ATS REDUCTASE INHIBIT*06/18/2011 14 - Other: See Comments [...] [E11.42] 01/30/2006 04/24/2018 Coronary artery disease of sokaogon artery of thai*10/07/2007 Persistent atrial fibrillation (HCC) [...] failure (HCC*03/31/19 (more content not included)... Normal [facility] CNDSon 07-02-2020 [facility] HNO ID: [id number] Author: Shruti Jamison Service: Interventional Cardiology Author [...] neuropathy, with long-term current use of insulin ([facility]) clopidogrel (PLAVIX) 75 mg Take 75 mg by mouth once daily. 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 Associated Diagnoses:Type 2 diabetes mellitus with diabetic neuropathy, with long-term current use of insulin ([facility]) doxazosin (CARDURA) 1 mg Take 1 mg by mouth daily at bedtime. Associated Diagnoses:Type 2 diabetes mellitus with diabetic neuropathy, with long-term current use of insulin ([facility]) metoprolol tartrate (short acting) (LOPRESSOR) 50 mg Take 50 mg by mouth twice daily. Associated Diagnoses:Atrial fibrillation, unspecified type (HCC) Fish Oil-[place]-3 Fatty Acids (FISH OIL OMEGA 3-6-9) 300-1,000 [...] 2 tablets by mouth twice daily. Insulin [place], Disposable, (BD INSULIN PEN NEEDLE UF) 29 gauge x 1/2 ndle Use one needle for each dose. One/day. Dx: Type II diabetes mellitus - ICD9: 250.00, ICD10: E11.9. On insulin daily. Qty: 100 Each Refills: 3 Associated Diagnoses:Type 2 diabetes mellitus with diabetic neuropathy, with long-term current use of insulin ([facility]) nitroglycerin sublingual (NITROQUICK) 0.4 mg Dissolve 0.4 mg under the tongue every 5 minutes as needed for Chest Pain. IF NO PAIN RELIEF WITH 2ND DOSE, CALL 911 Qty: 25 tablet Refills: 2 Associated Diagnoses:Coronary artery disease involving sokaogon heart without angina pectoris, unspecified vessel or lesion type blood sugar diagnostic (ONE TOUCH ULTRA TEST) test strip TEST BLOOD SUGAR 2 TIMES PER DAY. DX: 250.00. INSULIN DEP: NO. Qty: 100 Strip Refills: 11 Associated Diagnoses:Diabetes mellitus type 2, insulin dependent ([facility]) Lancets (ONE TOUCH ULTRASOFT LANCETS) [facility] lancets twice daily. Use as instructed ( may dispense Deuca brand) Qty: 100 Each Refills: 11 Associated Diagnoses:Diabetes mellitus type 2, insulin dependent (HCC) FINAL DIAGNOSIS: PTCA LAD and Left main with DILIA SIGNATURE: Shruti Jamison MD PATIENT NAME: Miguelangel Moya DATE: July 02, 2020 TIME: 8:51 AM Normal [facility] BRIEF OP NOTon 07-01-2020 BRIEF OP NOT HNO ID: [id number] Author: Regulo Stover Service: Interventional Cardiology Author Type: Physician Type: Brief Op Note Filed: 07/01/2020 2:12 PM Note Text: CARDIAC CATHETERIZATION REPORT PATIENT NAME: Miguelangel Moya SERVICE DATE: 07/01/2020 SERVICE TIME: 2:03 PM Microfilm Clerk: Dr Son Amaro Attending: Regulo Stover / [...] was removed and a power backup 6.5 Upper Sorbian guiding catheter was seated into the left [...] arteries for lesion complexity and sizing. A [place] 3.0 x 15 mm cutting balloon was [...] July 01, 2020 TIME: 2:03 PM Normal [facility] HISTORY PHYSICALon HISTORY PHYSICAL HNO ID: [id number] Author: Regulo Stover Service: Interventional Cardiology Author [...] - LEFT HEART CATH,PERCUTANEOUS ? 12/29/2019 ? [facility] - REMOVAL ADENOIDS,PRIMARY,<12 Y/O ? 1960 [...] - Seasonal Allergies Other: See Comments - Byoebzu-Sjw-Qix Red* Other: See Comments ? ? Muscle [...] 20 pens/3 (more content not included)... Normal [facility] 06-28-2020 [facility] Telephone (AGCSUSU) MOYAMIGUELANGEL PERRY ([id number]) 1950 M Date Time Provider Department 06/28/20 REGULO STOVER During your visit today, we recorded the following information about you: Merrick Grant RN 06/28/2020 10:17 AM Signed Received a call from spouse who would like to speak to you regarding Miguelangel's cardiac situation and his need for foot surgery. Spouse not available until after 1 pm. SHALA Gilbert, VICTORIA 06/29/2020 9:43 AM Signed Jessica called in and states she missed the call from . She states she can be reached at [phone]. Demi Santa LPN Allergies As of Date: 06/28/2020 Noted Allergy Reaction ALTACE (RAMIPRIL) 12/29/2004 5 - Intolerance DIOVAN (VALSARTAN) 12/29/2004 PROPOFOL 02/10/2020 14 - Other: See Comments Comments: agitation RAMIPRIL 11/05/2007 SEASONAL ALLERGIES 08/04/2012 14 - Other: See Comments [id number]-[id number] REDUCTASE INHIBIT*06/18/2011 14 - Other: See Comments Comments: Muscle aches Date Reviewed: 06/21/2020 Reviewed by: Roxanna Dennis LPN - Fully Assessed Reason for Visit: Patient Question [5213] Prescriptions as of 06/28/2020 Sig: SULFAMETHOXAZOLE 800 [...] [E11.42] 01/30/2006 04/24/2018 Coronary artery disease of sokaogon artery of thai*10/07/2007 Persistent atrial fibrillation (HCC) [...] Status:Closed by MERRICK GRANT RN on 06/28/20 [facility] Jennifer 06-23-2020 [facility]ENN[facility] Telephone (AGCARDPOB) GRIFFINMIGUELANGEL ([id number]) 1950 M Date Time Provider Department 06/23/20 REGULO STOVER AGCARDPOB During your visit today, [...] ALLERGIES 08/04/2012 14 - Other: See Comments MICKTLE-AUN-SHY REDUCTASE INHIBIT*06/18/2011 14 - Other: See Comments [...] [E11.42] 01/30/2006 04/24/2018 Coronary artery disease of sokaogon artery of thai*10/07/2007 Persistent atrial fibrillation (HCC) [...] Status:Closed by FARRUKH AREVALO on 06/23/20 Normal [facility] XR Chest PA and Lateralon IMPRESSION: No acute radiographic abnormality. Cardiomegaly Revenue Audit Clerk: ASHUTOSH Transcribe Date/Time: Jun 21 2020 1:05P Dictated by : HUMZA PEREZ MD This examination was interpreted and the report reviewed and electronically signed by: HUMZA PEREZ MD on Jun 21 2020 1:08PM [facility] DIVISION OF RADIOLOGY * * *Final Report* [...] mid thoracic region. DIVISION OF RADIOLOGY Provider, [facility] [place] - 06/21/2020 * * *Final Report* * [...] IMPRESSION IMPRESSION: No acute radiographic abnormality. Cardiomegaly Revenue Audit Clerk: ASHUTOSH Transcribe Date/Time: Jun 21 2020 1:05P Dictated by : HUMZA PEREZ MD This examination was interpreted and the report reviewed and electronically signed by: HUMZA PEREZ MD on Jun 21 2020 1:08PM EST [facility] Radiology Study observation (narrative) Jane valdez [facility] XR Chest PA and LateralOrder ed By: Ccf Provider on 06-21-2020 [facility] CNPNon 05-30-2020 CNPN Telephone (AGCARDPOB) MIGUELANGEL MOYA ([id number]) 1950 M Date Time Provider Department 05/30/20 REGULO STOVER During your visit today, we [...] ALLERGIES 08/04/2012 14 - Other: See Comments XCRKHLK-IQD-AYT REDUCTASE INHIBIT*06/18/2011 14 - Other: See Comments [...] [E11.42] 01/30/2006 04/24/2018 Coronary artery disease of sokaogon artery of thai*10/07/2007 Persistent atrial fibrillation (HCC) [...] Status:Closed by MERRICK GRANT RN on 06/15/20 [facility] [employer] Tele[facility] (AKCAT) MIGUELANGEL MOYA ([id number]) 1950 M Date Time Provider Department 05/06/20 REGULO STOVER During your visit today, we recorded the following information about you: Jayne Mondragon [facility] 05/06/2020 11:01 AM Signed Schedule Direct PCI for 05/27/[address] Jolanta Arevalo, RN 05/06/2020 11:21 AM Signed Left message on [employer] requesting pt return call for cath date and instructions. Office phone number provided. SHALA Mueller RN 05/06/2020 12:07 PM Signed Patient scheduled for left heart cath/PCI, radial, with Dr Stover on Fr 05/27/20. Instructions reviewed. Questions answered. Patient verbalized understanding. Instructions were as follows: -Arrive to [facility] En[facility] 05/27/20 at time assigned by [facility] labview programmer staff in phone call 05/26/20 PM.. -Pt [...] someone drive you home from your procedure. -labview programmer policy is pt not be alone first evening Office phone number provided for questions or concerns. SHALA Mueller RN 05/06/2020 12:07 PM Signed Please arrange COVID testing 05/25/20 for 05/27/20 heart cath. TY SHALA Mueller 05/12/2020 4:11 PM Signed Scheduled. Frederick Cobb May 12, 2020 4:10 PM Farrukh Arevalo [...] should proceed with cath/PCI Fr 05/27/20. SHALA Mueller, PEREZ.AUTO SPECIALTY SERVICES MANAGER, AUTO SPECIALTY SERVICES MANAGER 05/25/2020 10:52 AM Signed Did the patient mention when he would be completed with this course of antibiotics? I will defer to Dr. Stover on whether he wants to proceed this Saturday or not. Thanks! Demi Power APRN.DANA Arevalo RN 05/25/2020 11:16 AM Addendum Spoke with . She took pt to ER. Xray confirms no osteomyelitis. He was started on Keflex and Bactrim. He will start those today. He was prescribed a 7 day course of both. SHALA Mueller RN 05/26/2020 8:[address] Stover: Postpone heart cath for now. Mrs notified and voices understanding. Jayne notified. SHALA Mueller [facility] 06/29/2020 9:06 AM Addendum Reschedule Direct PCI on 07/01/[address] Jolanta Arevalo RN 06/29/2020 9:21 AM Signed Left message on [employer] requesting pt return call for heart cath date and instructions. Office phone number provided. SHALA Mueller RN 06/29/2020 11:48 AM Addendum Patient scheduled for left heart cath/PCI, radial, with Dr Stover on Fr 07/01/20. Instructions reviewed. Questions answered. Patient verbalized understanding. Instructions were as follows: -Arrive to [facility] En[facility] 07/01/20 at time assigned by [facility] labview programmer staff in phone call 06/30/20 PM.. -Pt [...] metoprolol and amlodipine. -Labs done 06/27/20 @ [facility] scanned into [employer]. -Pt notified of mandatory COVID 19 testing prior to procedure. Pt voices understanding that our staff will contact him/her with date, time and location of testing. - You must have someone drive you home from your procedure. -labview programmer policy is pt not be alone first [...] AREVALO on: 06/29/2020 11:47 AM Modules accepted: José Luis Cobb 06/29/2020 2:31 PM Signed Patient scheduled for Covid test by Gabrielle Mckee. Frederick Cobb June 29, 2020 2:31 PM Allergies As of Date: 05/06/2020 Noted Allergy Reaction ALTACE (RAMIPRIL) 12/29/2004 5 - Intolerance DIOVAN (VALSARTAN) 12/29/2004 PROPOFOL 02/10/2020 14 - Other (more content not included)... Normal [facility] CNPNon 04-29-2020 CNPN Telephone (AGCARDPOB) MIGUELANGEL MOYA ([id number]) 1950 M Date Time Provider Department 04/29/20 [...] RN 05/06/2020 8:36 AM Signed Regulo Stover [facility] Clinical Pool 14 hours ago (6:15 PM) Please schedule patient for PCI Routing comment Allergies As of Date: 04/29/2020 Noted Allergy Reaction ALTACE (RAMIPRIL) 12/29/2004 5 - Intolerance DIOVAN (VALSARTAN) 12/29/2004 PROPOFOL 02/10/2020 14 - Other: See Comments Comments: agitation RAMIPRIL 11/05/2007 SEASONAL ALLERGIES 08/04/2012 14 - Other: See Comments HEQMNAX-PFP-BYH REDUCTASE INHIBIT*06/18/2011 14 - Other: See Comments Comments: Muscle aches Date Reviewed: 03/31/2020 Reviewed by: Regulo Stover - Fully Assessed Reason for Visit: Preparations For Procedures [899] Results [95] Reason For Visit History Recorded Primary Visit Diagnosis: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 Persistent atrial fibrillation [...] Encounter Status:Closed by REGULO STOVER on 05/05/20 [facility] CTA ABD/PELV W IVCONon 04-19 CTA ABD/PELV W IVCON Final Report DATE OF EXAM: Apr 19 2020 2:08PM [facility] 0311 - CTA ABD/PELV W IVCON [...] internal and external iliac arteries. Short segment qfan-ki-mudszgtv stenosis involving the proximal left common iliac [...] Proximal tracheobronchial (more content not included)... Normal [facility] CTA CHEST (GATED) WO/W IVCON on 04-19-2020 CTA CHEST (GATED) WO/W IVCON Final Report DATE OF EXAM: Apr 19 2020 2:08PM [facility] 0126 - CTA CHEST (GATED) WO/W [...] internal and external iliac arteries. Short segment misw-pr-jurnthcq stenosis involving the proximal left common iliac [...] Proximal tracheobr (more content not included)... Normal [facility] HOSPon 04-10-2020 HOSP Patient:[place] MRN: Height:5' 7(1.702 m) Weight:297 lb (134.718 kg) Outpatient Medications as of 04/19/20: 0.9 % sodium chloride (NACL 0.9% IV BOLUS) solp glimepiride (AMARYL) 4 mg tablet clopidogrel (PLAVIX) 75 mg tablet furosemide (LASIX) 40 mg tablet BIOTIN ORAL Insulin [place], Disposable, (BD INSULIN PEN NEEDLE UF) 29 gauge x 1/2 ndle insulin glargine (BASAGLAR KWIKPEN U-100 INSULIN) 100 unit/mL (3 mL) inpn nitroglycerin sublingual (NITROQUICK) 0.4 mg SL tablet amLODIPine (NORVASC) 5 mg tablet doxazosin (CARDURA) 1 mg tablet metoprolol tartrate, short acting, (LOPRESSOR) 25 mg tablet blood sugar diagnostic (ONE TOUCH ULTRA TEST) test strip Fish Oil-Bogota-3 Fatty Acids (FISH OIL OMEGA 3-6-9) 300-1,000 [...] Type 2 diabetes mellitus with diabetic neuropathy ([facility]) [E11.40] Obesity, Class III, BMI 40-49.9 (morbid obesity) ([facility]) [E66.01] Other hyperlipidemia [E78.49] Essential hypertension [I10] 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 ([facility]) [I25.118] Persistent atrial fibrillation ([facility]) [I48.19] Memory disturbance [R41.3] BPH (benign prostatic hyperplasia) [N40.0] Osteomyelitis of second toe of right foot ([facility]) [M86.9] Osteomyelitis of third toe of right foot ([facility]) [M86.9] 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 ([facility]) [Z89.421] Acute kidney injury (DANIELA) with acute tubular necrosis (ATN) ([facility]) [N17.0] Dyspnea on exertion [R06.00] Statin intolerance [Z78.9] Chronic diastolic congestive heart failure ([facility]) [I50.32] Allergies: Altace [Ramipril] Diovan [Valsartan] Propofol Ramipril Seasonal Allergies Xwpmnqv-Edw-Kbs Reductase Inhibitors Date Verified: 03/31/20 Lab Values No results within the last 30 days for the following basenames: K,HCT Progress Notes (CARD AG [facility]): Yun Morse MA, MA 03/31/2020 8:22 AM Signed Patient has no cardiac complaints today. Regulo Stover MD 03/31/2020 9:37 AM Signed [facility] SECTION [facility]IONAL CARDIOLOGY [facility] Cardiology [place] ([facility] ([facility] [address] [facility] [id number] OUTPATIENT VISIT DATE 03/26/2020 PRIMARY CARE PHYSICIAN: Krishna Reynolds MD [address] [place] [address] CHIEF COMPLAINT: Patient with complex coronary artery [...] and in (more content not included)... Normal [facility] CNOVon 03-31-2020 CNOV Office Visit (AGCARDPOB) MIGUELANGEL MOYA ([id number]) 1950 M Date Time Provider Department 03/31/20 8:30 AM [facility] During your visit today, we recorded the following information about you: Pulse Respiration Blood pressure Weight 98/minute 20/minute 134/80 134.7 kg Height 1.702 m Yun Morse MA, BRANDAN 03/31/2020 8:22 AM Signed Patient has no cardiac complaints today. Regulo Stover MD 03/31/2020 9:37 AM Signed [facility] SE[facility]AL CARDIOLOGY [facility] Cardiology [place] ([facility] ([facility] [address] [facility] [id number] OUTPATIENT VISIT DATE 03/26/2020 PRIMARY CARE PHYSICIAN: Krishna Reynolds MD [address] [place] [address] CHIEF COMPLAINT: Patient with complex coronary artery [...] and occluded RCA with collateral filling via wpyc-wm-romgr collaterals. 2D echo shows ejection fraction of [...] stenosis ci (more content not included)... Normal [facility] CNPJackelyn 03-30-2020 CNPN Telephone (AGVASACC) MIGUELANGEL MOYA ([id number]) 1950 M Date Time Provider Department 03/30/20 [facility]T GARDNER During your visit today, we recorded the following information about you: Ava Corea 03/30/2020 1:[address] Verma 03/10/20 office encounter, which was scanned into [employer]. Allergies As of Date: 03/30/2020 Noted Allergy Reaction ALTACE (RAMIPRIL) 12/29/2004 5 - Intolerance DIOVAN (VALSARTAN) 12/29/2004 PROPOFOL 02/10/2020 14 - Other: See Comments Comments: agitation RAMIPRIL 11/05/2007 SEASONAL ALLERGIES 08/04/2012 14 - Other: See Comments TDLEGGD-QQK-CNZ REDUCTASE INHIBIT*06/18/2011 14 - Other: See Comments Comments: Muscle aches Date Reviewed: 02/22/2020 Reviewed by: Teresita (Silo Worker) ANDRES Ndiaye - Fully Assessed Reason for [...] Encounter Status:Closed by AVA COREA on 03/31/20 [facility] Jennifer 02-23-2020 CNPN Telephone (AGCARDPOB) MIGUELANGEL MOYA ([id number]) 1950 M Date Time Provider Department 02/23/20 REGULO STOVER During your visit today, we recorded the following information about you: Gabrielle Mckee 02/23/2020 2:26 PM Signed LVM for patient to call the office. Patient's appointment with Dr. Stover in [place] in 05/15 was moved to POB to be seen sooner. Patient is scheduled [...] ALLERGIES 08/04/2012 14 - Other: See Comments ACUPZWV-BIX-YHE REDUCTASE INHIBIT*06/18/2011 14 - Other: See Comments Comments: Muscle aches Date Reviewed: 02/22/2020 Reviewed by: Teresita (Silo Worker) ANDRES Ndiaye - Fully Assessed Reason for [...] Encounter Status:Closed by GABRIELLE MCKEE on 02/23/20 [facility] Jennifer 02-16-2020 DANAN Telephone (AGCARDPOB) MIGUELANGEL MOYA ([id number]) 1950 M Date Time Provider Department 02/16/20 REGULO STOVER AGCARDPOB During your visit today, we recorded the following information about you: Farrukh Arevalo RN 02/16/2020 10:04 AM Signed Ryan (Zipper Ironer Woodworker Helper) DANA Akins Ag Card Clinical Pool ? Armando Zarate, Please process the referral to Dr. Stover for PCI evaluation as patient was presented this am at heart team. Dr. Stover agreed to see this pt outpatient for PCI eval. P.S: this patient lives in [place], so maybe would be good to schedule him there. Thanks. Cassie Yañez 02/16/2020 11:37 AM Signed I called and gave patient the number for scheduling at the [place] office for Dr. Stover. Allergies As of Date: 02/16/2020 Noted Allergy Reaction ALTACE (RAMIPRIL) 12/29/2004 5 - Intolerance DIOVAN (VALSARTAN) 12/29/2004 PROPOFOL 02/10/2020 14 - Other: See Comments Comments: agitation RAMIPRIL 11/05/2007 SEASONAL ALLERGIES 08/04/2012 14 - Other: See Comments WCLVDTT-KGW-FLU REDUCTASE INHIBIT*06/18/2011 14 - Other: See Comments [...] Encounter Status:Closed by ANJUM YAÑEZ on 02/16/20 [facility] Treatment Team (AGVASACC) MIGUELANGEL MOYA ([id number]) 1950 M Date Time Provider Department 02/16/20 RYAN AKINS (THERAPEUTIC RIDING INSTRUCTOR, AUTO SPECIALTY SERVICES MANAGER) JENAE During your visit today, we recorded the following information about you: Ryan Akins APRN.AUTO SPECIALTY SERVICES MANAGER, AUTO SPECIALTY SERVICES MANAGER 02/16/2020 9:52 AM Signed MULTI DISCIPLINARY HIGH RISK AVR CARDIAC TEAM Members present: Dr. Gardner, Dr. Renee, Dr. Allen, Dr. Stover, Dr. Elizabeth, Dr. Barclay, Jennifer Lee THERAPEUTIC RIDING INSTRUCTOR, AUTO SPECIALTY SERVICES MANAGER, Gretchen THERAPEUTIC RIDING INSTRUCTOR, AUTO SPECIALTY SERVICES MANAGER, Eileen Rueda THERAPEUTIC RIDING INSTRUCTOR, AUTO SPECIALTY SERVICES MANAGER. Presenting Physician: PATIENT NAME: Miguelangel Moya DATE: [...] eval and discussion. REFERRAL PLACED. Ryan Akins APRN.AUTO SPECIALTY SERVICES MANAGER Allergies As of Date: 02/16/2020 Noted Allergy Reaction ALTACE (RAMIPRIL) 12/29/2004 5 - Intolerance DIOVAN (VALSARTAN) 12/29/2004 PROPOFOL 02/10/2020 14 - Other: See Comments Comments: agitation RAMIPRIL 11/05/2007 SEASONAL ALLERGIES 08/04/2012 14 - Other: See Comments JLRQGGV-HRJ-SPI REDUCTASE INHIBIT*06/18/2011 14 - Other: See Comments Comments: Muscle aches Date Reviewed: 02/15/2020 Reviewed by: Roxanna Dennis LPN - Fully Assessed Primary Visit Diagnosis:Coronary artery disease involving sokaogon coronary artery of sokaogon heart, angina presence unspecified [I25.10] Order(s):CONSULT TO CARDIOLOGY [9004] Order #: [id number]: 1 FUTURE Prescriptions as of 02/16/2020 Sig: [...] Status:Closed by RYAN AKINS CNP on 02/16/20 [facility] Jennifer 02-12-2020 CNPN Telephone (BizzingoACC) MOYAMIGUELANGEL ([id number]) 1950 M Date Time Provider Department 02/12/20 [facility] During your visit today, we recorded the following information about you: Ava Corea 02/12/2020 11:12 AM Signed Spoke with Mrs. Moya regarding future appts for Mr. Moya. [facility] [address]: 02/22/20 11:40 CT Chest, 2pm PFT, 3:30 carotid ultrasound. No special prep required. Referral to Dr. Cruz first available not until 04/2020. Referral request to [facility] [place] [phone]. Spoke with office they are going to review with UNIVERSAL GRINDER SET UP OPERATOR and call back with appt information. Records faxed to [phone]. Ava Corea 02/12/2020 4:12 PM Signed Pt schedule to see conservation officer Dr. Verma 03/10/20 Allergies As of Date: 02/12/2020 Noted Allergy Reaction ALTACE (RAMIPRIL) 12/29/2004 5 - Intolerance DIOVAN (VALSARTAN) 12/29/2004 PROPOFOL 02/10/2020 14 - Other: See Comments Comments: agitation RAMIPRIL 11/05/2007 SEASONAL ALLERGIES 08/04/2012 14 - Other: See Comments BIYOCHA-YEO-HUJ REDUCTASE INHIBIT*06/18/2011 14 - Other: See Comments [...] Encounter Status:Closed by AVA COREA on 02/12/20 [facility] CNOVon 02-10-2020 CNOV Office Visit (AGVASACC) MIGUELANGEL MOYA ([id number]) 1950 M Date Time Provider Department 02/10/20 2:00 PM CURT GARDNER AGVASACC During your visit today, we recorded the following information about you: Pulse Respiration Blood pressure Weight 80/minute 20/minute 130/80 131.5 kg Height 1.702 m Merrick Falcon LPN 02/10/2020 3:07 PM Signed CARDIAC REHAB 5 METER WALK TEST SERVICE DATE: 02/10/2020 SERVICE TIME: 1435 ASSESSMENT: Walked pushing wheelchair states gets short of breath AND dizzy when wearing mask. Usually walks with walker which he did not bring with him. 1. 11.35 sec 2. 11.20 sec 3. 11.221 sec SIGNATURE: Merrick Falcon LPN PATIENT NAME: Miguelangel Moya DATE: February 10, 2020 TIME: 3:04 PM PAGER/CONTACT #: [phone] Ryan Akins APRN.DANA CORTEZ 02/10/2020 5:46 PM Signed ST[facility] Adult Cardiac [...] Chest scan ? LUNG function tests with conservation officer-Dr. Zhang in [place] referral ? After all tests completed, we would like to review your data with our heart team regarding Coronary artery disease management options. Thanks for coming in to see us today. Please call us if you have any concerns/questions: [phone] DEEP Ventura MD 02/10/2020 5:46 PM Signed [...] and occluded RCA with collateral filling via ngpu-zc-gmlgc collaterals. 2D echo shows ejection fraction of [...] unspecified si (more content not included)... Normal [facility] Lab Report: CBC W/Diff, Auto matedon 02-06-2017 Absolute Neut 3.1 X10 3/UL Invalid Interpretation Code 2.0-7.7 [employer] Work Phone: [phone] Basophils/100 WBC Auto (Bld) 0.4 % Invalid Interpretation Code 0-1 [employer] Work Phone: [phone] Eosinophils/100 leukocytes 1.6 % Invalid Interpretation Code 0-5 [employer] Phone: [phone] Erythrocyte distribution width Auto Ratio (RBC) 13.7 % Invalid Interpretation Code 11.6-14.6 [employer] Phone: [phone] Erythrocytes (RBC) 4.84 10*6/uL Invalid Interpretation Code 4.6-6.2 [employer] Phone: [phone] Hematocrit (HCT) 43.4 % Invalid Interpretation Code 40-54 [employer] Phone: [phone] Hemoglobin mass conc (Bld) 13.9 g/dL Invalid Interpretation Code 13.0-16.5 [employer] Work Phone: [phone] Immature granulocytes/100 WBC (Bld) 0.400 % Invalid Interpretation Code 0.0-0.9 [employer] Work Phone: [phone] Lymphocytes 1.81 X10 3/UL Invalid Interpretation Code 0.83-4.51 [employer] Phone: [phone] Lymphocytes/100 leukocytes 32.4 % Invalid Interpretation Code 19-41 [employer] Work Phone: [phone] MCH 28.7 pg Invalid Interpretation Code 27.0-32.0 [employer] Work Phone: [phone] MCHC mass conc (RBC) 32.0 G/GL Invalid Interpretation Code 32-36 [employer] Work Phone: [phone] MCV 89.7 fL Invalid Interpretation Code 80-94 [employer] Phone: [phone] Monocytes/100 leukocytes 10.4 % High 0-10 [employer] Work Phone: [phone] Neutrophils/100 WBC Auto (Bld) 54.8 % Invalid Interpretation Code 47-70 [employer] Phone: [phone] Platelets 241 10*3/mm3 Invalid Interpretation Code 150-450 [employer] Phone: [phone] PMV by Willie 9.8 fL Invalid Interpretation Code 6.2-12.0 [employer] Phone: [phone] RDW SD 44.7 fL High 35.1-43.9 [employer] Work Phone: [phone] WBC (Leukocytes) 5.6 10*3/uL Invalid Interpretation Code 4.4-11.0 [employer] Work Phone: [phone] Lab Report: T4 Total, Thyrox inon 02-06-2017 Thyroxine (T4) 11.1 ug/dL Invalid Interpretation Code 4.5-12.1 [employer] Work Phone: [phone] Lab Report: Thyroid Stim Hor thomas (TSH)on 02-06-2017 Thyroid stimulating hormone (TSH) 1.63 u[iU]/mL Invalid Interpretation Code 0.358-3.74 [facility] Work Phone: [phone] Office Visiton 02-06-2017 Dietary management education, guidance, and counseling (procedure) yes Invalid Interpretation Code [facility] Work Phone: [phone] Documentation of current medications (procedure) Done Invalid Interpretation Code [facility] [employer] Work Phone: [phone] Fall risk assessment No Invalid Interpretation Code [facility] [employer] Work Phone: [phone] Smoking cessation education (procedure) yes Invalid Interpretation Code [facility] [employer] Work Phone: [phone] Tobacco use CPHS Current every day smoker Invalid Interpretation Code [facility] [employer] Work Phone: [phone] Replaced Document: Bharatmark E CG Observationson 02-06-2017 EKG QRS axis 24 deg Invalid Interpretation Code [facility] [employer] Work Phone: [phone] Interpretation Atrial fibrillation ABNORMAL RHYTHM Invalid Interpretation Code [facility] [employer] Work Phone: [phone] P Grace 1 deg Invalid Interpretation Code [facility] [employer] Work Phone: [phone] LA Interval 0 ms Invalid Interpretation Code [facility] [employer] Work Phone: [phone] Pulse (Heart Rate) 101 /min Invalid Interpretation Code [facility] [employer] Work Phone: [phone] QRS Duration 102 ms Invalid Interpretation Code [facility] [employer] Work Phone: [phone] QT Interval new path ms Invalid Interpretation Code [facility] [employer] Work Phone: [phone] QTc Campa 413 ms Invalid Interpretation Code [facility] Work Phone: [phone] T Grace -1 deg Invalid Interpretation Code [facility] Work Phone: [phone] Replaced Document: Basic Met abolic Profile (BMP)on 12-17-2016 Anion gap 15 mmol/L Invalid Interpretation Code 5-15 [facility] Work Phone: [phone] BUN/Creatinine Ratio 23.2 RATIO High 10-[address] [facility] [address] [facility] [employer] Work Phone: [phone] Calcium 9.0 mg/dL Invalid Interpretation Code 8.5-10.1 [facility] Work Phone: [phone] Chloride 100 mmol/L Invalid Interpretation Code 98-107 [facility] Work Phone: [phone] CO2 22.0 mmol/L Invalid Interpretation Code 21.0-32.0 [employer] Work Phone: [phone] Creatinine 0.99 mg/dL Invalid Interpretation Code 0.70-1.30 [employer] Work Phone: [phone] eGFR (non-black) 80 mL/min/{1.73_m2} Invalid Interpretation Code >60 [employer] Work Phone: [phone] eGFR (non-black) 97 mL/min/{1.73_m2} Invalid Interpretation Code >60 [employer] Work Phone: [phone] Glucose mass conc 169 mg/dL High 70-110 [employer] Work Phone: [phone] Potassium molar conc 4.6 mmol/L Invalid Interpretation Code 3.5-5.1 [employer] Work Phone: [phone] Sodium 137 mmol/L Invalid Interpretation Code 136-145 [employer] Phone: [phone] Urea nitrogen 23 mg/dL High 7-18 [employer] Work Phone: [phone] Office Visiton 12-03-2016 Dietary management education, guidance, and counseling (procedure) yes Invalid Interpretation Code [employer] Phone: [phone] Documentation of current medications (procedure) Done Invalid Interpretation Code [employer] Phone: [phone] Fall risk assessment No Invalid Interpretation Code [employer] Phone: [phone] Clinical Lists Update: Prelo potato chip processing supervisor 10-10-2016 Alanine aminotransferase (ALT) 48 U/L Invalid Interpretation Code [employer] Work Phone: [phone] Albumin 4.0 g/dL Invalid Interpretation Code [employer] Work Phone: [phone] Alkaline phosphatase (ALP) 54 U/L Invalid Interpretation Code [employer] Work Phone: [phone] Aspartate aminotransferase (AST) 44 U/L High [employer] Phone: [phone] Bilirubin (total) 1.1 mg/dL Invalid Interpretation Code [employer] Work Phone: [phone] Cholesterol 245 mg/dL High [employer] Work Phone: [phone] Cholesterol to HDL Ratio 6.28 {ratio} High [employer] Work Phone: [phone] HDL Cholesterol 39 mg/dL Low [employer] Work Phone: [phone] Hemoglobin A1c/Hemoglobin.total mass fraction (Bld) 5.8 % High [employer] Work Phone: [phone] LDL Cholesterol 171 mg/dL High [employer] Work Phone: [phone] LDL to HDL Ratio 4.38 High [employer] Work Phone: [phone] Protein 7.2 g/dL Invalid Interpretation Code [facility] Work Phone: [phone] Triglyceride 173 mg/dL High [facility] Work Phone: [phone] very low density lipoproteins 35 mg/dL Invalid Interpretation Code [facility] Work Phone: [phone] Clinical Lists Update: Prelo potato chip processing supervisor 06-08-2016 Erythrocyte distribution width Auto Ratio (RBC) 13.4 % Invalid Interpretation Code [facility] Work Phone: [phone] Erythrocytes (RBC) 5.00 10*6/uL Invalid Interpretation Code [facility] Work Phone: [phone] Hematocrit (HCT) 43.8 % Invalid Interpretation Code [facility] Work Phone: [phone] Hemoglobin mass conc (Bld) 14.5 g/dL Invalid Interpretation Code [facility] Work Phone: [phone] MCH 29.0 pg Invalid Interpretation Code [facility] Work Phone: [phone] MCHC mass conc (RBC) 33.1 g/dL Invalid Interpretation Code [facility] Work Phone: [phone] MCV 87.6 fL Invalid Interpretation Code [facility] Work Phone: [phone] Platelets 260 10*3/mm3 Invalid Interpretation Code [facility] Work Phone: [phone] PMV by Willie 10.4 fL Invalid Interpretation Code [facility] Work Phone: [phone] WBC (Leukocytes) 5.64 10*3/uL Invalid Interpretation Code [facility] Work Phone: [phone] Clinical Lists Update: Prelo potato chip processing supervisor 01-27-2016 Left ventricular Ejection fraction 65 % Invalid Interpretation Code [facility] Work Phone: [phone] Office Visiton 05-23-2015 Tobacco use CPHS Never smoker Invalid Interpretation Code [facility] Work Phone: [phone] Lab Report: Prothrombin Time Fingerstickon 08-31-2014 Prothrombin time (PT) Coag time (PPP) 29.3 s High 11.9-14.4 [facility] Work Phone: [phone] Office Visit: Warfarin Calco n 08-31-2014 INR Coag RelTime (Bld) 2 to 3 Invalid Interpretation Code [facility] Work Phone: [phone] INR Coag RelTime (Bld) Hospital lab Invalid Interpretation Code [facility] Work Phone: [phone] INR Coag RelTime (PPP) 2.6 {INR} Invalid Interpretation Code [facility] Work Phone: [phone] Prothrombin time (PT) Coag time (PPP) 29.3 s Invalid Interpretation Code [facility] Work Phone: [phone] Office Visiton 08-25-2014 Tobacco smoking status NHIS Current Invalid Interpretation Code [facility] Work Phone: [phone] Office Visiton 05-21-2014 cardiac risk group C Invalid Interpretation Code [facility] Work Phone: [phone] General cardiovascular disease 10Y risk [#] Sewell.José Miguel'Ju N/A Invalid Interpretation Code [facility] Work Phone: [phone] Replaced Document: Midmark E CG Observationson 05-21-2014 EKG QRS axis 13 deg Invalid Interpretation Code [facility] Work Phone: [phone] Interpretation Atrial fibrillation -Old inferior infarct. ABNORMAL Invalid Interpretation Code [facility] Work Phone: [phone] P Grace 1 deg Invalid Interpretation Code [facility] Work Phone: [phone] LA Interval 0 ms Invalid Interpretation Code [facility] Work Phone: [phone] Pulse (Heart Rate) 77 /min Invalid Interpretation Code [facility] Work Phone: [phone] QRS Duration 100 ms Invalid Interpretation Code [facility] Work Phone: [phone] QT Interval new path ms Invalid Interpretation Code [facility] Work Phone: [phone] QTc Campa 393 ms Invalid Interpretation Code [facility] Work Phone: [phone] T Grace 29 deg Invalid Interpretation Code [facility] Work Phone: [phone] Office Visit: [facility] 09-22-19 14 Smoking cessation education (procedure) yes Invalid Interpretation Code [facility] Work Phone: [phone] Lab Report: LIVERon 08-07-19 14 Bilirubin (direct) 0.11 mg/dL Normal 0.00-0.30 [facility] Work Phone: [phone] Replaced Document: Ainsley E CG Observationson 05-28-2013 Pulse (Heart Rate) 413 ms Invalid Interpretation Code [facility] Work Phone: [phone] Lab Report: PTon 01-05-2013 PTP 33.0 SECONDS Invalid Interpretation Code 11.9-14.4 [facility] Work Phone: [phone] Office Visiton 12-25-2012 Alcoholism counseling (procedure) no Invalid Interpretation Code [facility] Work Phone: [phone] Clinical Lists Update: Prelo potato chip processing supervisor 10-27-2012 Magnesium 1.8 mg/dL Invalid Interpretation Code [facility] Work Phone: [phone] Thyroid stimulating hormone (TSH) 2.29 u[iU]/mL Invalid Interpretation Code [facility] Work Phone: [phone] Vital Signs Date Time Vital Sign Value Performing Clinician Facility 08-10-2024 08:30-0400 Body height 170.2 cm Regulo Stover MD Work Phone: [facility] 08-10-2024 08:30-0400 Body mass index (BMI) [Ratio] 45.01 kg/m2 Regulo Stover MD Work Phone: [facility] 08-10-2024 08:30-0400 Body weight 130.36 kg Regulo Stover MD Work Phone: [facility] 08-10-2024 08:30-0400 Diastolic blood pressure 64 mm[Hg] Regulo Stover MD Work Phone: [facility] 08-10-2024 08:30-0400 Heart rate 80 /min Regulo Stover MD Work Phone: [facility] 08-10-2024 08:30-0400 Respiratory rate 16 /min Regulo Stover MD Work Phone: [facility] 08-10-2024 08:30-0400 SaO2% (BldA) [Mass fraction] 98 % Regulo Stover MD Work Phone: [facility] 08-10-2024 08:30-0400 Systolic blood pressure 126 mm[Hg] Regulo Stover MD Work Phone: [facility] 06-10-2024 08:38-0400 Body height 170.8 cm Krishna Reynolds MD Work Phone: [facility] 06-10-2024 08:38-0400 Body mass index (BMI) [Ratio] 44.25 kg/m2 Krishna Reynolds MD Work Phone: [facility] 06-10-2024 08:38-0400 Body temperature 97.9 [degF] Krishna Reynolds MD Work Phone: [facility] 06-10-2024 08:38-0400 Body weight 129.1 kg Krishna Reynolds MD Work Phone: [facility] 06-10-2024 08:38-0400 Diastolic blood pressure 60 mm[Hg] Krishna Reynolds MD Work Phone: [facility] 06-10-2024 08:38-0400 Heart rate 64 /min Krishna Reynolds MD Work Phone: [facility] 06-10-2024 08:38-0400 Respiratory rate 18 /min Krishna Reynolds MD Work Phone: [facility] 06-10-2024 08:38-0400 Systolic blood pressure 118 mm[Hg] Krishna Reynolds MD Work Phone: [facility] 02-10-2024 18:01-0500 Body mass index (BMI) [Ratio] 43.3 kg/m2 Krishna Reynolds MD Work Phone: [facility] 02-10-2024 18:01-0500 Body temperature 96.91 [degF] Krishna Reynolds MD Work Phone: [facility] 02-10-2024 18:01-0500 Body weight 125.4 kg Krishna Reynolds MD Work Phone: [facility] 02-10-2024 18:01-0500 Diastolic blood pressure 68 mm[Hg] Krishna Reynolds MD Work Phone: [facility] 02-10-2024 18:01-0500 Heart rate 80 /min Krishna Reynolds MD Work Phone: [facility] 02-10-2024 18:01-0500 Respiratory rate 18 /min Krishna Reynolds MD Work Phone: [facility] 02-10-2024 18:01-0500 Systolic blood pressure 122 mm[Hg] Krishna Reynolds MD Work Phone: [facility] 12-11-2023 09:17-0400 Body mass index (BMI) [Ratio] 43.33 kg/m2 Krishna Reynolds MD Work Phone: [facility] 12-11-2023 09:17-0400 Body temperature 97.81 [degF] Krishna Reynolds MD Work Phone: [facility] 12-11-2023 09:17-0400 Body weight 125.5 kg Krishna Reynolds MD Work Phone: [facility] 12-11-2023 09:17-0400 Diastolic blood pressure 70 mm[Hg] Krishna Reynolds MD Work Phone: [facility] 12-11-2023 09:17-0400 Heart rate 80 /min Krishna Reynolds MD Work Phone: [facility] 12-11-2023 09:17-0400 Respiratory rate 16 /min Krishna Reynolds MD Work Phone: [facility] 12-11-2023 09:17-0400 Systolic blood pressure 116 mm[Hg] Krishna Reynolds MD Work Phone: [facility] 11-18-2023 08:34-0400 Body mass index (BMI) [Ratio] 44.01 kg/m2 Regulo Stover MD Work Phone: [facility] 11-18-2023 08:34-0400 Body weight 127.46 kg Regulo Stover MD Work Phone: [facility] 11-18-2023 08:34-0400 Diastolic blood pressure 64 mm[Hg] Regulo Stover MD Work Phone: [facility] 11-18-2023 08:34-0400 Heart rate 81 /min Regulo Stover MD Work Phone: [facility] 11-18-2023 08:34-0400 Respiratory rate 16 /min Regulo Stover MD Work Phone: [facility] 11-18-2023 08:34-0400 SaO2% (BldA) [Mass fraction] 97 % Regulo Stover MD Work Phone: [facility] 11-18-2023 08:34-0400 Systolic blood pressure 118 mm[Hg] Regulo Stover MD Work Phone: [facility] 09-10-2023 11:42-0400 Body mass index (BMI) [Ratio] 44.01 kg/m2 Krishna Reynolds MD Work Phone: [facility] 09-10-2023 11:42-0400 Body temperature 97.2 [degF] Krishna Reynolds MD Work Phone: [facility] 09-10-2023 11:42-0400 Body weight 127.46 kg Krishna Reynolds MD Work Phone: [facility] 09-10-2023 11:42-0400 Diastolic blood pressure 74 mm[Hg] Krishna Reynolds MD Work Phone: [facility] 09-10-2023 11:42-0400 Heart rate 80 /min Krisnha Reynolds MD Work Phone: [facility] 09-10-2023 11:42-0400 Respiratory rate 16 /min Krishna Reynolds MD Work Phone: [facility] 09-10-2023 11:42-0400 Systolic blood pressure 116 mm[Hg] Krishna Reynolds MD Work Phone: [facility] 07-04-2023 15:48-0400 Body weight 129.41 kg Krishna Reynolds MD Work Phone: [facility] 07-04-2023 15:48-0400 Diastolic blood pressure 74 mm[Hg] Krishna Reynolds MD Work Phone: [facility] 07-04-2023 15:48-0400 Heart rate 72 /min Krishna Reynolds MD Work Phone: [facility] 07-04-2023 15:48-0400 Respiratory rate 16 /min Krishna Reynolds MD Work Phone: [facility] 07-04-2023 15:48-0400 Systolic blood pressure 120 mm[Hg] Krishna Reynolds MD Work Phone: [facility] 06-07-2023 08:16-0400 Body height 170.2 cm Krishna Reynolds MD Work Phone: [facility] 06-07-2023 08:16-0400 Body weight 129.46 kg Krishna Reynolds MD Work Phone: [facility] 06-07-2023 08:16-0400 Diastolic blood pressure 82 mm[Hg] Krishna Reynolds MD Work Phone: [facility] 06-07-2023 08:16-0400 Heart rate 64 /min Krishna Reynolds MD Work Phone: [facility] 06-07-2023 08:16-0400 Respiratory rate 18 /min Krishna Reynolds MD Work Phone: [facility] 06-07-2023 08:16-0400 Systolic blood pressure 128 mm[Hg] Krishna Reynolds MD Work Phone: [facility] 03-26-2023 10:07-0500 Body mass index (BMI) [Ratio] 46.2 kg/m2 Dr. Krishna Reynolds Work Phone: [facility] 03-26-2023 10:07-0500 Body temperature 95.8 [degF] Dr. Krishna Reynolds Work Phone: [facility] 03-26-2023 10:07-0500 Diastolic blood pressure 77 mm[Hg] Dr. Krishna Reynolds Work Phone: [facility] 03-26-2023 10:07-0500 Heart rate 96 /min Dr. Krishna Reynolds Work Phone: [facility] 03-26-2023 10:07-0500 Respiratory rate 18 /min Dr. Krishna Reynolds Work Phone: 8(075)591-659244 [place] [address] 03-26-2023 10:07-0500 Systolic blood pressure 137 mm[Hg] Dr. Krishna Reynolds Work Phone: [facility] 03-25-2023 00:27-0500 Body weight 133.[address] Krishna Reynolds Work Phone: [facility] 03-19-2023 10:04-0500 Body height 170.[address] Krishna Reynolds Work Phone: [facility] 03-19-2023 10:04-0500 Body mass index (BMI) [Ratio] 46.2 kg/m2 Dr. Krishna Reynolds Work Phone: [facility] 03-19-2023 10:04-0500 Body temperature 96.5 [degF] Dr. Krishna Reynolds Work Phone: [facility] 03-19-2023 10:04-0500 Body weight 133.[address] Krishna Reynolds Work Phone: [facility] 03-19-2023 10:04-0500 Diastolic blood pressure 69 mm[Hg] Dr. Krishna Reynolds Work Phone: 2(603)482-056144 [place] [address] 03-19-2023 10:04-0500 Heart rate 79 /min Dr. Krihsna Reynolds Work Phone: 1(812)449-921300 [place] [address] 03-19-2023 10:04-0500 Systolic blood pressure 123 mm[Hg] Dr. Krishna Reynolds Work Phone: 6(494)681-756200 [place] [address] 02-22-2023 00:11-0500 Body temperature 97 [degF] Dr. Krishna Reynolds Work Phone: 5(592)185-991800 [place] [address] 02-22-2023 00:11-0500 Diastolic blood pressure 75 mm[Hg] Dr. Krishna Reynolds Work Phone: 1(901)204-228400 [place] [address] 02-22-2023 00:11-0500 Heart rate 78 /min Dr. Krishna Reynolds Work Phone: 6(667)775-469100 [place] [address] 02-22-2023 00:11-0500 Respiratory rate 16 /min Dr. Krishna Reynolds Work Phone: 8(476)622-250900 [place] [address] 02-22-2023 00:11-0500 Systolic blood pressure 127 mm[Hg] Dr. Krishna Reynolds Work Phone: 7(492)048-039800 [place] [address] 01-29-2023 09:20-0500 Body temperature 98 [degF] Dr. Krishna Reynolds Work Phone: 8(658)958-173600 [place] [address] 01-29-2023 09:20-0500 Body weight 131.[address] Krishna Reynolds Work Phone: 9(555)838-431900 [place] [address] 01-29-2023 09:20-0500 Diastolic blood pressure 71 mm[Hg] Dr. Krishna Reynolds Work Phone: 9(429)064-277400 [place] [address] 01-29-2023 09:20-0500 Heart rate 80 /min Dr. Krishna Reynolds Work Phone: 3(517)816-425400 [place] [address] 01-29-2023 09:20-0500 Respiratory rate 18 /min Dr. Krishna Reynolds Work Phone: 7(156)579-201700 [place] [address] 01-29-2023 09:20-0500 SaO2% (BldA) [Mass fraction] 95 % Dr. Krishna Reynolds Work Phone: 8(382)952-178100 [place] [address] 01-29-2023 09:20-0500 Systolic blood pressure 121 mm[Hg] Dr. Krishna Reynolds Work Phone: 5(921)853-682300 [place] [address] 01-23-2023 00:15-0400 Body temperature 97 [degF] Dr. Krishna Reynolds Work Phone: 7(446)341-597600 [place] [address] 01-23-2023 00:15-0400 Diastolic blood pressure 75 mm[Hg] Dr. Krishna Reynolds Work Phone: 2(255)827-509300 [place] [address] 01-23-2023 00:15-0400 Heart rate 78 /min Dr. Krishna Reynolds Work Phone: 3(021)370-895300 [place] [address] 01-23-2023 00:15-0400 Respiratory rate 16 /min Dr. Krishna Reynolds Work Phone: 3(158)319-113500 [place] [address] 01-23-2023 00:15-0400 Systolic blood pressure 127 mm[Hg] Dr. Krishna Reynolds Work Phone: 9(440)089-843600 [place] [address] 12-23-2022 00:20-0400 Body temperature 97 [degF] Dr. Krishna Reynolds Work Phone: 0(900)155-346500 [place] [address] 12-23-2022 00:20-0400 Diastolic blood pressure 75 mm[Hg] Dr. Krishna Reynolds Work Phone: 6(454)680-045800 [place] [address] 12-23-2022 00:20-0400 Heart rate 78 /min Dr. Krishna Reynolds Work Phone: 0(541)171-044500 [place] [address] 12-23-2022 00:20-0400 Respiratory rate 16 /min Dr. Krishna Reynolds Work Phone: 4(624)690-417700 [place] [address] 12-23-2022 00:20-0400 Systolic blood pressure 127 mm[Hg] Dr. Krishna Reynolds Work Phone: 3(599)102-950000 [place] [address] 12-07-2022 07:01-0400 Body weight 131.09 kg Leila 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 Work Phone: [facility] 12-07-2022 07:01-0400 Diastolic blood pressure 68 mm[Hg] Leila 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 Work Phone: [facility] 12-07-2022 07:01-0400 Heart rate 87 /min Leila 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 Work Phone: [facility] 12-07-2022 07:01-0400 Respiratory rate 20 /min Leila 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 Work Phone: [facility] 12-07-2022 07:01-0400 SaO2% (BldA) [Mass fraction] 97 % Leila 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 Work Phone: [facility] 12-07-2022 07:01-0400 Systolic blood pressure 112 mm[Hg] Leila 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 Work Phone: [facility] 11-29-2022 13:29-0400 Body mass index (BMI) [Ratio] 46 kg/m2 Dr. Krishna Reynolds Work Phone: [facility] 11-29-2022 13:29-0400 Body temperature 96.5 [degF] Dr. Krishna Reynolds Work Phone: [facility] 11-29-2022 13:29-0400 Diastolic blood pressure 70 mm[Hg] Dr. Krishna Reynolds Work Phone: [facility] 11-29-2022 13:29-0400 Heart rate 77 /min Dr. Krishna Reynolds Work Phone: [facility] 11-29-2022 13:29-0400 Respiratory rate 16 /min Dr. Krishna Reynolds Work Phone: [facility] 11-29-2022 13:29-0400 Systolic blood pressure 128 mm[Hg] Dr. Krishna Reynolds Work Phone: [facility] 11-23-2022 00:28-0400 Body temperature 97 [degF] Dr. Krishna Reynolds Work Phone: 1(915)939-849300 [place] [address] 11-23-2022 00:28-0400 Diastolic blood pressure 75 mm[Hg] Dr. Krishna Reynolds Work Phone: 2(177)268-459600 [place] [address] 11-23-2022 00:28-0400 Heart rate 78 /min Dr. Krishna Reynolds Work Phone: 8(395)220-235300 [place] [address] 11-23-2022 00:28-0400 Respiratory rate 16 /min Dr. Krishna Reynolds Work Phone: 9(496)969-964400 [place] [address] 11-23-2022 00:28-0400 Systolic blood pressure 127 mm[Hg] Dr. Krishna Reynolds Work Phone: 4(847)322-101600 [place] [address] 11-23-2022 00:21-0400 Body weight 133.[address] Krishna Reynolds Work Phone: 9(594)922-648100 [place] [address] 11-22-2022 13:44-0400 Body mass index (BMI) [Ratio] 46 kg/m2 Dr. Krishna Reynolds Work Phone: 7(500)090-836900 [place] [address] 11-22-2022 13:44-0400 Body temperature 97.5 [degF] Dr. Krishna Reynolds Work Phone: 1(874)420-773200 [place] [address] 11-22-2022 13:44-0400 Diastolic blood pressure 69 mm[Hg] Dr. Krishna Reynolds Work Phone: 6(505)725-806600 [place] [address] 11-22-2022 13:44-0400 Heart rate 79 /min Dr. Krishna Reynolds Work Phone: 0(253)772-158300 [place] [address] 11-22-2022 13:44-0400 Respiratory rate 22 /min Dr. Krishna Reynolds Work Phone: 7(879)146-175000 [place] [address] 11-22-2022 13:44-0400 Systolic blood pressure 111 mm[Hg] Dr. Krishna Reynolds Work Phone: 6(724)673-283400 [place] [address] 11-15-2022 13:28-0400 Body temperature 97 [degF] Dr. Krishna Reynolds Work Phone: [facility] 11-15-2022 13:28-0400 Diastolic blood pressure 75 mm[Hg] Dr. Krishna Reynolds Work Phone: [facility] 11-15-2022 13:28-0400 Heart rate 78 /min Dr. Krishna Reynolds Work Phone: [facility] 11-15-2022 13:28-0400 Respiratory rate 16 /min Dr. Krishna Reynolds Work Phone: [facility] 11-15-2022 13:28-0400 Systolic blood pressure 127 mm[Hg] Dr. Krishna Reynolds Work Phone: [facility] 11-02-2022 10:00-0400 Body height 170.[address] Krishna Reynolds Work Phone: [facility] 11-02-2022 10:00-0400 Body weight 133.[address] Krishna Reynolds Work Phone: [facility] 10-01-2022 14:47-0400 Body weight 133.36 kg Krishna Reynolds MD Work Phone: [facility] 10-01-2022 14:47-0400 Diastolic blood pressure 68 mm[Hg] Krishna Reynolds MD Work Phone: [facility] 10-01-2022 14:47-0400 Heart rate 72 /min Krishna Reynolds MD Work Phone: [facility] 10-01-2022 14:47-0400 Respiratory rate 18 /min Krishna Reynolds MD Work Phone: [facility] 10-01-2022 14:47-0400 Systolic blood pressure 130 mm[Hg] Krishna Reynolds MD Work Phone: [facility] 01-26-2022 08:07-0400 Body height 169.5 cm Leila Russell APRN.CNP Work Phone: [facility] 01-26-2022 08:07-0400 Body weight 134.72 kg Leila 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 Work Phone: [facility] 01-26-2022 08:07-0400 Diastolic blood pressure 62 mm[Hg] Leila 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 Work Phone: [facility] 01-26-2022 08:07-0400 Heart rate 76 /min Leila 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 Work Phone: [facility] 01-26-2022 08:07-0400 Respiratory rate 20 /min Leila 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 Work Phone: [facility] 01-26-2022 08:07-0400 Systolic blood pressure 103 mm[Hg] Leila 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 Work Phone: [facility] 01-15-2022 15:27-0400 Body weight 134.72 kg Regulo Stover MD Work Phone: [facility] 01-15-2022 15:27-0400 Diastolic blood pressure 68 mm[Hg] Regulo Stover MD Work Phone: [facility] 01-15-2022 15:27-0400 Heart rate 91 /min Regulo Stover MD Work Phone: [facility] 01-15-2022 15:27-0400 SaO2% (BldA) [Mass fraction] 96 % Regulo Stover MD Work Phone: [facility] 01-15-2022 15:27-0400 Systolic blood pressure 118 mm[Hg] Regulo Stover MD Work Phone: [facility] 09-08-2021 10:12-0400 Diastolic blood pressure 68 mm[Hg] Krishna Reynolds MD Work Phone: [facility] 09-08-2021 10:12-0400 Systolic blood pressure 110 mm[Hg] Krishna Reynolds MD Work Phone: [facility] 09-08-2021 09:39-0400 Body height 170.2 cm Krishna Reynolds MD Work Phone: [facility] 09-08-2021 09:39-0400 Body temperature 96.1 [degF] Krishna Reynolds MD Work Phone: [facility] 09-08-2021 09:39-0400 Body weight 135.63 kg Krishna Reynolds MD Work Phone: [facility] 09-08-2021 09:39-0400 Heart rate 79 /min Krishna Reynolds MD Work Phone: [facility] 09-08-2021 09:39-0400 Respiratory rate 18 /min Krishna Reynolds MD Work Phone: [facility] 09-08-2021 09:39-0400 SaO2% (BldA) [Mass fraction] 96 % Krishna Reynolds MD Work Phone: [facility] 02-06-2017 10:34-0500 BMI (Body Mass Index) 41.96 kg/m2 Marva Rodriguez [facility] Work Phone: 02-06-2017 10:34-0500 BP Diastolic 62 mm[Hg] Oliveriotalnevin [facility] Work Phone: 02-06-2017 10:34-0500 BP Systolic 134 mm[Hg] Oliveriotalnevin Rodriguez [facility] Work Phone: 02-06-2017 10:34-0500 Height 172.72 cm Camelianevin Rodriguez [facility] Work Phone: 02-06-2017 10:34-0500 Pulse (Heart Rate) 100 /min [facility] Work Phone: 02-06-2017 10:34-0500 Respiratory Rate 16 /min Chantalnevin Rodriguez [facility] Work Phone: 02-06-2017 10:34-0500 Weight 125.19 kg Camelianevin Rodriguez [facility] Work Phone: 12-03-2016 09:28-0400 BMI (Body Mass Index) 41.2 kg/m2 [facility] Work Phone: 12-03-2016 09:28-0400 BP Diastolic 80 mm[Hg] Mojgan Obando RN [facility] Work Phone: 12-03-2016 09:28-0400 BP Systolic 164 mm[Hg] Mojgan Obando RN [facility] Work Phone: 12-03-2016 09:28-0400 Height 172.72 cm Mojgan Obando RN [facility] Work Phone: 12-03-2016 09:28-0400 Pulse (Heart Rate) 84 /min Mojgan Obando RN [facility] Work Phone: 12-03-2016 09:28-0400 Respiratory Rate 18 /min Mojgan Obando RN [facility] Work Phone: 12-03-2016 09:28-0400 Weight 122.93 kg Mojgan Obando RN [facility] Work Phone: 12-03-2016 09:28-0400 Weight 122.92 kg Mojgan Obando RN [facility] Work Phone: 02-03-2016 09:18-0500 BSA (Body Surface Area) 2.35 m2 Mojgan Obando RN [facility] Work Phone: 12-25-2012 13:18-0400 Height 172.72 cm Mojgan Obando RN [facility] Work Phone: Encounters Encounter Date Encounter Type Care Provider Facility Start: 01-15-2025 ambulatory Krishna Salcido ty:[facility] Start: 01-14-2025 ambulatory Krishna Rushi ty:[facility] Start: 01-02-2025 ambulatory KRISHNA REYNOLDS Faci lity:[facility] Start: 01-02-2025 End: 01-02-2025 ambulatory KRISHNA REYNOLDS Facility:[facility] Start: 12-22-2024 End: 12-22-[address] Krishna Reynolds MD Work Phone: -Cardiac Rehab Start: 12-22-2024 End: 12-22-[address] Krishna Reynolds MD -[facility] Re[facility] Work Phone: Start: 12-02-2024 End: 12-02-[address] Krishna Reynolds MD Work Phone: -Laboratory Start: 12-02-2024 End: 12-02-[address] 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 Krishna Reynolds MD Work Phone: -Cardiac Rehab Start: 11-19-2024 End: 11-22-[address] Krishna Reynolds MD -Cardiac Rehab Work Phone: Start: 11-04-2024 End: 11-04-2024 Refill Krishna Reynolds MD Work Phone: Internal Medicine [place] Comment on above: Refill Request Start: 10-22-2024 End: 10-22-2024 Follow-up encounter Regulo Stover MD Work Phone: [facility] Cardiology [place] Comment on above: Results Start: 10-22-2024 End: 10-22-[address] Krishna Reynolds MD Work Phone: -Cardiac Rehab Start: 10-22-2024 End: 10-22-[address] 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 Krishna Reynolds MD Work Phone: -Cardiac Rehab Start: 09-17-2024 End: 09-21-[address] Krishna Reynolds MD -Cardiac Rehab Work Phone: Start: 08-24-2024 End: 08-24-2024 Refill Krishna Reynolds MD Work Phone: [facility] Comment on above: Refill Request Start: 08-20-2024 End: 08-22-[address] Krishna Reynolds MD Work Phone: [facility] Work Phone: Start: 08-20-2024 End: 08-22-[address] Krishna Reynolds MD -Cardiac Rehab Work Phone: Start: 08-18-[address] Krishna smith MD -Cardiac Rehab Work Phone: Start: 08-12-2024 End: 08-12-[address] Krishna Reynolds MD Work Phone: [facility] Work Phone: Start: 08-12-2024 End: 08-12-[address] 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 Krishna Reynolds MD -Cardiac Rehab Work Phone: Start: 06-18-2024 End: 06-22-[address] Krishna Reynolds MD Work Phone: [facility] Work Phone: Start: 06-18-2024 End: 06-22-[address] Krishna Reynolds MD -Cardiac Rehab Work Phone: Start: 06-11-[address] 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 Krishna Reynolds MD Work Phone: [facility] Work Phone: Start: 06-03-2024 End: 06-03-[address] 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 Krishna Reynolds MD -Cardiac Rehab Work Phone: Start: 04-30-2024 End: 04-30-2024 Refill Krishna Reynolds MD Work Phone: Internal Medicine [place] Start: 04-23-2024 End: 04-24-2024 ambulatory Krishna Reynolds Facility:[facility] Start: 04-23-2024 End: 04-24-[address] rKishna Reynolds MD -Cardiac Rehab Work Phone: Start: 04-14-2024 End: 04-14-2024 Telephone encounter Krishna Reynolds MD Work Phone: Internal Medicine [place] Comment on above: Letter Start: 04-04-2024 ambulatory Krishna Reynolds Facili ty:[facility] Start: 03-24-2024 End: 03-24-2024 ambulatory Krishna Reynolds Facility:[facility] Start: 03-24-2024 End: 03-24-[address] Krishna Reynolds MD -Cardiac Rehab Work Phone: Start: 03-07-2024 End: 03-09-2024 Refill Krishna Reynolds MD Work Phone: Family [facility] Comment on above: Refill Request Start: 02-18-2024 End: 02-22-2024 ambulatory Krishna Reynolds Facility:[facility] Start: 02-18-2024 End: 02-22-[address] Krishna Reynolds MD -Cardiac Rehab Work Phone: Start: 02-10-2024 End: 02-10-2024 ambulatory KRISHNA REYNOLDS Facility:[facility] Start: 02-10-2024 End: 02-10-2024 Office outpatient visit 15 minutes Krishna Reynolds MD Work Phone: Internal Medicine [place] Comment on above: Type 2 diabetes cheyanne itus with diabetic neuropathy, with long- term current use of insulin (HCC) (Primary Dx) Start: 01-23-2024 End: 01-23-2024 ambulatory Krishna Reynolds Facility:[facility] Start: 01-06-2024 End: 01-23-2024 Telephone encounter Regulo Stover MD Work Phone: [address] [place] [address] Comment on above: Patient Question; Me dication Problem Start: 12-16-2023 End: 12-16-2023 Patient encounter procedure [facility] Provider [facility] Department Start: 12-12-2023 End: 12-12-2023 Telephone encounter Krishna Reynolds MD Work Phone: Internal Medicine [place] Comment on above: FMLA Paperwork Start: 12-11-2023 End: 12-11-2023 Office outpatient visit 25 minutes Krishna Reynolds MD Work Phone: Internal Medicine [place] Comment on above: Type 2 diabetes cheyanne itus with diabetic neuropathy, with long- term current use of insulin (HCC) (Primary Dx); Coronary artery disease involving sokaogon heart without angina pectoris, unspecified vessel or lesion type; Chronic diastolic congestive heart failure (HCC); Essential hypertension; Screening for depression; Encounter for screening examination for other mental health and behavioral disorders Start: 12-02-2023 End: 12-03-2023 Telephone encounter Regulo Stover MD Work Phone: Cardiology Comment on above: Patient Update Start: 11-20-2023 End: 11-20-2023 Refill Krishna Reynolds MD Work Phone: [facility] [place] Comment on above: Refill Request Start: 11-18-2023 End: 11-18-2023 Office outpatient visit 15 minutes Arabella Heredia DPM Work Phone: Podiatry Comment on above: DM (diabetes mellitu s), 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); Corns and callosities Start: 11-18-2023 End: 11-18-2023 Patient encounter procedure Regulo Stover MD Work Phone: Cardiology Comment on above: 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) (Primary [...] End: 09-16-2023 Subsequent hospital visit by physician [facility] Mob Work Phone: Radiology Comment on above: Right elbow pain [M2 5.521] Start: 09-11-2023 Orders Only Kaila wilson PA-C Work Phone: Orthopaedics Comment on above: Right elbow pain (Pr imary Dx) Start: 09-10-2023 End: 09-10-2023 Patient encounter procedure Krishna Reynolds MD Work Phone: Internal Medicine [place] Comment on above: Elbow mass, right (P rimary Dx); Essential hypertension Start: 07-29-2023 Telephone encounter Krishna abernathy MD Work Phone: Internal [facility] Comment on above: Appointment Start: 07-25-2023 Telephone encounter Krishna abernathy MD Work Phone: Internal [facility] Start: 07-23-2023 End: 07-23-2023 ambulatory [facility] Work Phone: Start: 07-23-2023 End: 07-23-2023 Discharged Recurring [facility] Work Phone: Start: 2023 End: 2023 Subsequent hospital visit by physician [facility] Work Phone: Radiology Comment on above: Hydrocele, acquired [N43.3] Start: 07-04-2023 End: 07-04-2023 Patient encounter procedure Krishna Reynolds MD Work Phone: Internal Medicine [place] Comment on above: Hydrocele, acquired (Primary Dx); Other hyperlipidemia Start: 06-26-2023 Telephone encounter Krishna abernathy MD Work Phone: Internal [facility] Comment on above: Orders Start: 06-20-2023 End: 06-23-2023 ambulatory [facility] Work Phone: Start: 06-20-2023 End: 06-23-2023 Discharged Recurring [facility] Work Phone: Start: 06-13-2023 Refill Krishna ivy MD Work Phone: Internal [facility] Comment on above: Refill Request Start: 06-07-2023 End: 06-07-2023 Patient encounter procedure Krishna Reynolds MD Work Phone: Internal [facility] Comment on above: Medicare annual well ness visit, subsequent (Primary Dx); 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 Krishna Reynolds Work Phone: [facility] Work Phone: Start: 05-23-2023 End: 05-23-[address] Krishna Reynolds Work Phone: [facility] Work Phone: Start: 05-22-2023 Telephone encounter Krishna abernathy MD Work Phone: Internal Medicine [place] Start: 04-23-2023 End: 04-24-[address] Krishna Reynolds Work Phone: [facility] Work Phone: Start: 03-26-2023 End: 03-26-[address] Krishna Reynolds Work Phone: [facility] Work Phone: Start: 03-26-2023 End: 03-26-[address] Krishna Reynolds Work Phone: [facility] Work Phone: Start: 03-26-[address] Tres Reynolds [facility] Start: 03-21-2023 End: 03-24-[address] Krishna Reynolds Work Phone: [facility] Work Phone: Start: 03-21-2023 End: 03-24-[address] Krishna Reynolds Work Phone: [facility] Work Phone: Start: 03-19-2023 End: 03-24-[address] Krishna Reynolds Work Phone: [facility] Work Phone: Start: 03-19-[address] Tres Reynolds Work Phone: [facility] Work Phone: Start: 03-13-2023 Refill Regulo ríos MD Work Phone: [facility] Comment on above: Refill Request Start: 02-21-2023 End: 02-21-[address] Krishna Reynolds Work Phone: [facility] Work Phone: Start: 02-21-2023 End: 02-21-[address] Krishna Reynolds Work Phone: [facility] Work Phone: Start: 02-19-[address] Tres Reynolds Work Phone: [facility] Work Phone: Start: 02-15-2023 End: 02-15-[address] Krishna Reynolds Work Phone: [facility] Work Phone: Start: 02-15-2023 End: 02-15-[address] Krishna Reynolds Work Phone: [facility]Labor[facility] Work Phone: Start: 01-29-2023 End: 01-29-[address] Krishna Reynolds Work Phone: [facility] Vascular Surgery Work Phone: Start: 01-22-2023 End: 01-22-[address] Krishna Reynolds Work Phone: [facility] Work Phone: Start: 01-22-2023 End: 01-22-[address] Krishna Reynolds Work Phone: [facility] Work Phone: Start: 01-14-2023 ambulatory Nhung Longo [facility] [place] Comment on above: Population Health Na vigation Outreach ([facility] [facility]) Start: 01-14-2023 Telephone encounter Krishna abernathy MD Work Phone: Internal Medicine [place] Comment on above: Results Start: 12-20-2022 End: 12-22-[address] Krishna Reynolds Work Phone: [facility] Work Phone: Start: 12-20-2022 End: 12-22-[address] 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 Work Phone: Internal Medicine [place] Comment on above: Type 2 diabetes cheyanne itus with diabetic neuropathy, with long- term current use of insulin ([facility]) (Primary Dx); Essential hypertension; Other hyperlipidemia; Venous (peripheral) insufficiency; Chronic diastolic congestive heart failure ([facility]); Class 3 severe obesity due to excess calories with serious comorbidity and body mass index (BMI) of 45.0 to 49.9 in adult ([facility]); Screening for colon cancer; Encounter for immunization Start: 12-06-2022 Refill Krishna ivy MD Work Phone: Internal Medicine [place] Comment on above: Refill Request Start: 12-04-[address] Tres Reynolds Work Phone: [facility] Work Phone: Start: 11-30-2022 End: 11-30-[address] Krishna Reynolds Work Phone: [facility] Work Phone: Start: 11-30-2022 End: 11-30-[address] Krishna Reynolds Work Phone: [facility] Work Phone: Start: 11-29-2022 End: 11-29-[address] Krishna Reynolds Work Phone: [facility] Work Phone: Start: 11-29-2022 Non-patient / Non-visit Dr. Jennifer Reynolds Work Phone: [facility] Start: 11-23-2022 Non-patient / Non-visit Dr. Jennifer Reynolds Work Phone: [facility] Start: 11-22-2022 End: 11-22-[address] Krishna Reynolds Work Phone: [facility] Work Phone: Start: 11-22-2022 End: 11-22-[address] Krishna Reynolds Work Phone: [facility] Work Phone: Start: 11-19-2022 End: 11-19-2022 Patient encounter procedure Arabella Heredia DPM Work Phone: Podiatry Comment on above: Corns and callositie s (Primary Dx); DM (diabetes mellitus), type 2 with neurological complications (HCC) Start: 11-16-2022 Non-patient / Non-visit Dr. Jennifer Reynolds Work Phone: [facility] Start: 11-15-2022 Non-patient / Non-visit Dr. Jennifer Reynolds Work Phone: [facility] Start: 11-02-2022 Non-patient / Non-visit Dr. Jennifer Reynolds Work Phone: [facility] Start: 10-25-2022 Telephone encounter Krishna abernathy MD Work Phone: Internal Medicine [place] Comment on above: Referral Request Start: 10-23-2022 Telephone encounter Krishna abernathy MD Work Phone: Internal Medicine [place] Comment on above: Patient Question Start: 10-18-2022 Telephone encounter Krishna abernathy MD Work Phone: Internal Medicine [place] Comment on above: FMLA Paperwork Start: 10-18-2022 End: 10-22-2022 ambulatory [facility] Work Phone: Start: 10-18-2022 End: 10-22-2022 Discharged Recurring [facility] Work Phone: Start: 10-10-2022 Telephone encounter Krishna abernathy MD Work Phone: Internal Medicine [place] Comment on above: Patient Question Start: 10-01-2022 End: 10-01-2022 Patient encounter procedure Krishna Reynolds MD Work Phone: Internal Medicine [place] Comment on above: Ulcer of right leg, limited to breakdown of skin (HCC) (Primary Dx); Venous (peripheral) insufficiency; Chronic diastolic congestive heart failure (HCC); Type 2 diabetes mellitus with diabetic neuropathy, with long-term current use of insulin ([facility]); Need for COVID-19 vaccine; Essential hypertension Refill Request Start: 09-20-2022 End: 09-21-2022 ambulatory [facility] Work Phone: Start: 09-20-2022 End: 09-21-2022 Discharged Recurring [facility] Work Phone: Start: 09-12-2022 Refill Krishna ivy MD Work Phone: Family [place] Comment on above: Refill Request Start: 09-06-2022 Registered Recurring [facility]Card[facility] Re[facility] Start: 08-27-2022 End: 08-27-2022 Patient encounter procedure Echocardiogram Wstr Work Phone: Cardiology Comment on above: Chronic diastolic co ngestive heart failure (HCC); ROBIN (dyspnea on exertion) Start: 08-21-2022 End: 08-22-2022 ambulatory [facility] Work Phone: Start: 08-21-2022 End: 08-22-2022 Discharged Recurring [facility] Start: 08-17-2022 End: 08-17-2022 ambulatory [facility] Work Phone: Start: 08-17-2022 End: 08-17-2022 Patient encounter procedure [facility] Start: 08-06-2022 Refill Krishna ivy MD Work Phone: Family Medicine [place] Comment on above: Refill Request Start: 07-23-2022 Telephone encounter Krishna abernathy MD Work Phone: Internal Medicine [place] Comment on above: letter to be excused (Jury duty) Start: 07-19-2022 End: 2022 Discharged Recurring [facility] Start: 06-21-2022 End: 06-22-2022 ambulatory [facility] Work Phone: Start: 06-21-2022 End: 06-22-2022 Discharged Recurring [facility] Start: 06-01-2022 End: 06-01-2022 Patient encounter procedure Krishna Reynolds MD Work Phone: Internal Medicine [place] Comment on above: Statin intolerance ( Primary Dx); Type 2 diabetes mellitus with diabetic neuropathy, with long-term current use of insulin (HCC); Chronic diastolic congestive heart failure (HCC); Essential hypertension; 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); Other hyperlipidemia Start: 05-29-2022 Registered Recurring [facility] Start: 05-25-2022 End: 05-25-2022 ambulatory [facility] Work Phone: Start: 05-25-2022 End: 05-25-2022 Patient encounter procedure [facility] Start: 05-22-2022 End: 05-22-2022 ambulatory [facility] Work Phone: Start: 05-22-2022 End: 05-22-2022 Discharged Recurring [facility] Start: 04-24-2022 End: 04-24-2022 Discharged Recurring [facility] Start: 04-10-2022 ambulatory Nhung Longo [facility] [place] Comment on above: Population Health Na vigation Outreach ([facility]) Start: 03-22-2022 End: 03-24-2022 ambulatory [facility] Work Phone: Start: 03-22-2022 End: 03-24-2022 Discharged Recurring [facility] Start: 03-15-2022 End: 03-15-2022 Nursing evaluation of patient and report Regulo Lamas RN Work Phone: Endocrinology Comment on above: Type 2 diabetes cheyanne itus with diabetic neuropathy, with long- term current use of insulin (HCC) (Primary Dx) Start: 03-01-2022 Registered Recurring [facility] Start: 02-20-2022 End: 02-21-2022 Discharged Recurring [facility] Start: 02-20-2022 End: 02-21-2022 ambulatory [facility] Work Phone: Start: 02-20-2022 End: 02-20-2022 Patient encounter procedure [facility] Start: 02-05-2022 Telephone encounter Krishna abernathy MD Work Phone: Family [place] Comment on above: Orders Start: 01-29-2022 Telephone encounter Krishna abernathy MD Work Phone: Internal Medicine [place] Comment on above: Orders Start: 01-26-2022 End: 01-26-2022 Patient encounter procedure Leila Russell APRN.CNP Work Phone: Internal [facility] Comment on above: Medicare annual well ness visit, subsequent (Primary Dx); Type 2 diabetes mellitus with diabetic neuropathy, with long-term current use of insulin (HCC); Balance problem; Gait abnormality; Chronic diastolic congestive heart failure (HCC) Start: 01-22-2022 Telephone encounter Regulo Stover MD Work Phone: Cardiology Comment on above: Medication Problem Start: 01-18-2022 End: 01-22-2022 ambulatory [facility] Work Phone: Start: 01-18-2022 End: 01-22-2022 Discharged Recurring [facility] Start: 01-16-2022 Registered Recurring [facility] Start: 01-15-2022 End: 01-15-2022 Patient encounter procedure Regulo Stover MD Work Phone: Cardiology Comment on above: 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) (Primary Dx); Persistent atrial fibrillation (HCC); Chronic diastolic congestive heart failure (HCC); Essential hypertension; Other hyperlipidemia; Statin intolerance; Class 3 severe obesity due to excess calories with serious comorbidity and body mass index (BMI) of 45.0 to 49.9 in adult (HCC); Dyspnea on exertion; Screening for ischemic heart disease Start: 01-12-2022 End: 01-12-2022 ambulatory [facility] Work Phone: Start: 01-12-2022 End: 01-12-2022 Patient encounter procedure [facility] Start: 12-21-2021 End: 12-22-2021 [facility] Work Phone: Start: 12-21-2021 End: 12-22-2021 Discharged Recurring [facility] Start: 11-21-2021 End: 11-22-2021 ambulatory [facility] Work Phone: Start: 11-21-2021 End: 11-22-2021 Discharged Recurring [facility] Start: 11-13-2021 End: 11-13-2021 Patient encounter procedure Arabella Heredia DPM Work Phone: Podiatry Comment on above: Corns and callositie s (Primary Dx); DM (diabetes mellitus), type 2 with neurological complications (HCC) Start: 10-19-2021 End: 10-22-2021 Discharged Recurring [facility] Start: 10-18-2021 Refill Regulo ríos MD Work Phone: Cardiology Comment on above: Refill Request Start: 10-12-2021 Telephone encounter Krishna abernathy MD Work Phone: Internal Medicine [place] Comment on above: FMLA Paperwork Start: 10-11-2021 Telephone encounter Deandra angulo APRN.CNP Work Phone: Endocrinology Comment on above: Connor Wong (Refil l) Start: 09-21-2021 End: 09-21-2021 Discharged Recurring [facility] Start: 09-08-2021 End: 09-08-2021 Patient encounter procedure Krishna Reynolds MD Work Phone: Internal Medicine [place] Comment on above: Type 2 diabetes cheyanne itus with diabetic neuropathy, with long- term current use of insulin (HCC) (Primary Dx); Essential hypertension; Chronic diastolic congestive heart failure (HCC); 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); Persistent atrial fibrillation (HCC); Need for vaccination Start: 08-24-2021 Registered Recurring [facility] Start: 08-23-2021 End: 08-23-2021 Patient encounter procedure [facility] Start: 08-22-2021 End: 08-22-2021 Discharged Rec[facility]ring [facility] Start: 08-22-2021 End: 08-22-2021 Patient encounter procedure [facility] Start: 08-05-2021 Refill Regulo ríos MD Work Phone: Cardiology Comment on above: Refill Request Start: 07-20-2021 Refill Leila Russell APRN, .CNP Work Phone: [facility] [place] Comment on above: Refill Request Start: 07-20-2021 End: 2021 Discharged Recurring [facility] Start: 07-10-2021 Refill Krishna ivy MD Work Phone: Internal [facility] [place] Comment on above: Refill Request medication clarifica tion Start: 06-22-2021 End: 06-22-2021 Discharged Recurring [facility] Start: 05-18-2021 End: 05-18-2021 Patient encounter procedure [facility] Start: 05-16-2021 End: 05-22-2021 Discharged Recurring [facility] Start: 04-20-2021 End: 04-24-2021 Discharged Recurring [facility] Start: 09-05-2020 End: 09-05-2020 Subsequent hospital visit by physician Karime [facility] Work Phone: Radiology Comment on above: Pain [R52] Start: 06-21-2020 End: 06-21-2020 Subsequent hospital visit by physician Xr [facility] Work Phone: Radiology Comment on above: Chronic diastolic co ngestive heart failure (HCC) [I50.32] Procedures Date Procedure Procedure Detail Performing Clinician Start: 10-19-2024 Myocardial spect multiple studies Regulo Stover MD Work Phone: Start: 08-12-2024 Serum inorganic phosphate measurement Dr. Krisnha Reynolds MD Work Phone: Start: 06-10-2024 PFIZER-BIONTECH COVID-19 VACCINE AGE 12+ YR (COMIRNATY) Krishna Reynolds MD Work Phone: Start: 06-03-2024 Urine microalbumin/creatinine ratio measurement Dr. 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 Work Phone: Start: 11-30-2022 Hemoglobin A1c/Hemoglobin.total in Blood [facility] Start: 10-01-2022 PFIZER-BIONTECH COVID-19 BIVALENT VACCINE, AGE 12+ YR Krishna Reynolds MD Work Phone: Start: 08-27-2022 Echo tthrc r-t 2d w/wom-mode compl spec&colr d Regulo Stover MD Work Phone: Start: 08-27-2022 LVEF TRANSTHORACIC ECHO Regulo pierce MD Work Phone: Start: 11-30-2020 Adult depression screening assessment Krishna Ryenolds MD Work Phone: Start: 09-05-2020 Radex foot [...] MD Start: 12-03-2016 End: 12-03-2016 MMM Son Delnua MD Start: 02-03-2016 End: 02-03-2016 Follow Up [...] DTaP,Tdap,Td Vaccine (3 - Td or Tdap) [facility] Start: 12-18-2025 Cologuard (FIT-DNA) Cologuard (FIT-DNA) [facility] Start: 12-18-2025 Colorectal Cancer Screening Colorectal Cancer Screening [facility] Start: 12-18-2025 Screening for malignant neoplasm of colon [facility] Start: 08-10-2025 BP Controlled (<130/80) BP Controlled (<130/80) [facility] Start: 06-10-2025 Annual PCP Team Chronic Disease Visit Annual PCP Team Chronic Disease Visit [facility] Start: 06-10-2025 BP Controlled (<130/80) BP Controlled (<130/80) [facility] Start: 06-10-2025 Diabetic foot examination Diabetic Foot Exam [facility] Start: 06-10-2025 Medicare Annual Wellness Visit Medicare Annual Wellness Visit [facility] Start: 06-03-2025 Hepatitis B screening Urine Albumin:Creatinine Ratio [facility] Start: 06-03-2025 Hepatitis B surface antibody level LDL Cholesterol [facility] Start: 05-31-2025 End: 05-31-2025 Patient encounter procedure 05/31/2025 10:00 AM EDT Office Visit Podiatry [address] [place] [address] Arabella Heredia DPM [address] [place] [address] Follow Up Podiatry Comment on above: Follow Up Start: 05-11-2025 Glaucoma screening Dilated Retinal Exam [facility] Start: 03-22-2025 End: 03-22-2025 Patient encounter procedure 03/22/2025 11:40 AM EST Office Visit Cardiology [address] [place], [place] [id number] Regulo Stover MD [address] [id number] 6 month follow up after NST Cardiology Comment on above: 6 month follow up after NST Start: 02-09-2025 Annual PCP Team Chronic Disease Visit Annual PCP Team Chronic Disease Visit [facility] Start: 02-09-2025 BP Controlled (<130/80) BP Controlled (<130/80) [facility] Start: 12-22-2024 End: 12-22-2024 Discharged Rec[facility]ring [facility] Work Phone: Start: 12-11-2024 End: 12-11-2024 Patient encounter procedure [facility] Comment on above: 6 month follow-up Start: 12-10-2024 Annual PCP Team Chronic Disease Visit Annual PCP Team Chronic Disease Visit [facility] Start: 12-10-2024 Anxiety Screening Anxiety Screening [facility] Start: 12-10-2024 BP Controlled (<130/80) BP Controlled (<130/80) [facility] Start: 12-10-2024 Depression Screening Depression Screening [facility] Start: 12-04-2024 Hemoglobin A1c measurement HbA1C [facility] Start: 11-30-2024 End: 11-30-2024 Patient encounter procedure 11/30/2024 10:00 AM EDT Office Visit Podiatry [address] [place], [place] [id number] Arabella Heredia DPM [address] [place] [address] 6mo follow up Podiatry Comment on above: 6mo follow up Start: 11-23-2024 End: 02-22-2025 Basic metabolic 2000 panel - Serum or Plasma BASIC METABOLIC PANEL Lab Routine Type 2 diabetes mellitus with diabetic neuropathy, with long-term current use of insulin (HCC) Expected: 11/23/2024, Expires: 02/22/2025 [facility] Work Phone: Comment on above: Expected: 11/23/2024, Expires: Start: 11-23-2024 End: 02-22-2025 Hemoglobin A1c in Blood HEMOGLOBIN A1C Lab Routine Type 2 diabetes mellitus with diabetic neuropathy, with long-term current use of insulin (HCC) Expected: 11/23/2024, Expires: 02/22/2025 [facility] Comment on above: Expected: 11/23/2024, Expires: Start: 11-23-2024 Influenza vaccination Influenza Vaccine (#1) [facility] Start: 11-23-2024 End: 02-22-2025 Lipid 1996 panel - Serum or Plasma LIPID PANEL, FASTING Lab Routine Other hyperlipidemia Expected: 11/23/2024, Expires: 02/22/2025 [facility] Comment on above: Expected: 11/23/2024, Expires: Start: 11-17-2024 BP Controlled (<130/80) BP Controlled (<130/80) [facility] Start: 10-19-2024 End: 10-19-2024 Nursing evaluation of patient and report Cardiology Comment on above: Coronary artery disease of s[place] artery of [place] heart with stable angina pect... Start: 10-19-2024 End: 10-19-2024 Patient encounter procedure Nuclear Medicine Comment on above: Coronary artery disease of [place] artery of [place] heart with stable angina pect... Start: 09-09-2024 Annual PCP Team Chronic Disease Visit Annual PCP Team Chronic Disease Visit [facility] Start: 09-09-2024 BP Controlled (<130/80) BP Controlled (<130/80) [facility] Start: 08-10-2024 End: 08-10-2024 Patient encounter procedure Cardiology Comment on above: 8 month follow up Start: 07-03-2024 Annual PCP Team Chronic Disease Visit Annual PCP Team Chronic Disease Visit [facility] Start: 07-03-2024 BP Controlled (<130/80) BP Controlled (<130/80) [facility] Start: 06-10-2024 End: 06-10-2024 Patient encounter procedure 06/10/2024 8:40 AM EDT Office Visit Internal Medicine [facility] [address] [place] [address] Krishna Reynolds MD [address] [place] [address] Annual Medicare/6 month follow-up [facility] Comment on above: Annual Medicare/6 month follow-up Start: 06-09-2024 End: 09-08-2024 Comprehensive metabolic 2000 panel - Serum or Plasma COMPREHENSIVE METABOLIC PANEL Lab Routine Type 2 diabetes mellitus with diabetic neuropathy, with long-term current use of insulin (HCC) Expected: 06/09/2024, Expires: 09/08/2024 [facility] Work Phone: Comment on above: Expected: 06/09/2024, Expires: Start: 06-09-2024 End: 09-08-2024 Hemoglobin A1c in Blood HEMOGLOBIN A1C Lab Routine Type 2 diabetes mellitus with diabetic neuropathy, with long-term current use of insulin (HCC) Expected: 06/09/2024, Expires: 09/08/2024 [facility] Comment on above: Expected: 06/09/2024, Expires: Start: 06-09-2024 End: 09-08-2024 Lipid 1996 panel - Serum or Plasma LIPID PANEL BASIC Lab Routine Type 2 diabetes mellitus with diabetic neuropathy, with long-term current use of insulin (HCC) Expected: 06/09/2024, Expires: 09/08/2024 [facility] Comment on above: Expected: 06/09/2024, Expires: Start: 06-09-2024 End: 09-08-2024 Microalbumin/Creatinine [Mass Ratio] in Urine ALBUMIN/CREATININE RATIO, URINE Lab Routine Type 2 diabetes mellitus with diabetic neuropathy, with long-term current use of insulin (HCC) Expected: 06/09/2024, Expires: 09/08/2024 [facility] Comment on above: Expected: 06/09/2024, Expires: Start: 06-06-2024 Annual PCP Team Chronic Disease Visit Annual PCP Team Chronic Disease Visit [facility] Start: 05-26-2024 Covid-19 Vaccine ( season) Covid-19 Vaccine () [facility] Start: 05-25-2024 End: 05-25-2024 Patient encounter procedure 05/25/2024 10:00 AM EST Office Visit Podiatry [address] [place] [address] Arabella Heredia, ARELIS [address] [place] [address] 6 month follow up cuts callouses Podiatry Comment on above: 6 month follow up cuts callouses Start: 05-20-2024 Diabetic foot examination Diabetic Foot Exam [facility] Start: 05-07-2024 Glaucoma screening Dilated Retinal Exam [facility] Start: 03-25-2024 Advance Directive Discussion Advance Directive Discussion [facility] Start: 03-11-2024 Annual PCP Team Chronic Disease Visit Annual PCP Team Chronic Disease Visit [facility] Start: 03-11-2024 BP Controlled (<130/80) BP Controlled (<130/80) [facility] Start: 02-16-2024 Hepatitis B screening Urine Albumin:Creatinine Ratio [facility] Start: 02-16-2024 Urine microalbumin profile [facility] Start: 12-11-2023 End: 12-11-2023 Patient encounter procedure 12/11/2023 9:20 AM EDT Office Visit [facility] Medicine [facility] [address] [place] [address] Krishna Reynolds MD [address] [place] [address] 6 mo f/u [facility] [place] Comment on above: 6 mo f/u Start: 12-08-2023 Annual PCP Team Chronic Disease Visit Annual PCP Team Chronic Disease Visit [facility] Start: 12-08-2023 End: 03-08-2024 Basic metabolic 2000 panel - Serum or Plasma BASIC METABOLIC PNL Lab Routine Type 2 diabetes mellitus with diabetic neuropathy, with long-term current use of insulin (HCC) Expected: 12/08/2023, Expires: 03/08/2024 [facility] Work Phone: Comment on above: Expected: 12/08/2023, Expires: Start: 12-08-2023 BP Controlled (<130/80) BP Controlled (<130/80) [facility] Start: 12-08-2023 End: 03-08-2024 Hemoglobin A1c in Blood HGB A1C Lab Routine Type 2 diabetes mellitus with diabetic neuropathy, with long-term current use of insulin (HCC) Expected: 12/08/2023, Expires: 03/08/2024 [facility] Work Phone: Comment on above: Expected: 12/08/2023, Expires: Start: 12-08-2023 End: 03-08-2024 Lipid 1996 panel - Serum or Plasma LIPID PANEL BASIC Lab Routine Other hyperlipidemia Expected: 12/08/2023, Expires: 03/08/2024 [facility] Work Phone: Comment on above: Expected: 12/08/2023, Expires: Start: 11-24-2023 Influenza vaccination Influenza Vaccine (#1) [facility] Start: 11-18-2023 End: 11-18-2023 Patient encounter procedure 11/18/2023 1:45 PM EDT Office Visit Podiatry [address] [place] [address] Arabella Heredia DPM [address] [place] [address] 6mo follow up - prefer mornings only Podiatry Comment on above: 6mo follow up - prefer mornings only Start: 11-18-2023 End: 11-18-2023 Patient encounter procedure 11/18/2023 8:40 AM EDT Office Visit Cardiology [address] [facility] [place] [id number] Regulo Stover MD [address] [address] 6 month follow up Cardiology Comment on above: 6 month follow up Start: 10-02-2023 ANNUAL PCP TEAM CHRONIC DISEASE VISIT ANNUAL PCP TEAM CHRONIC DISEASE VISIT [facility] Start: 09-16-2023 End: 09-16-2023 Patient encounter procedure 09/16/2023 11:00 AM EDT Office Visit Orthopaedics [address] [place], [place] [phone] Kaila Jimenez PA-C [address] [place] [address] Elbow mass, right [R22.31] Orthopaedics Comment on above: Elbow mass, right [R22.31] Start: 08-14-2023 BP CONTROLLED (<130/80) BP CONTROLLED (<130/80) [facility] Start: 06-02-2023 3 comp foot exam completed DIABETIC FOOT EXAM [facility] Start: 06-02-2023 ANNUAL PCP TEAM CHRONIC DISEASE VISIT ANNUAL PCP TEAM CHRONIC DISEASE VISIT [facility] Start: 06-02-2023 BP CONTROLLED (<130/80) BP CONTROLLED (<130/80) [facility] Start: 06-02-2023 Diabetic foot examination Diabetic Foot Exam [facility] Start: 05-31-2023 Hemoglobin A1c measurement HbA1C [facility] Start: 05-31-2023 Hemoglobin A1c/Hemoglobin.total in Blood HbA1C [facility] Start: 05-26-2023 Hepatitis B screening URINE ALBUMIN:CREATININE RATIO [facility] Start: 05-26-2023 Hepatitis B surface antibody level LDL CHOLESTEROL [facility] Start: 05-24-2023 End: 08-23-2023 Comprehensive metabolic 2000 panel - Serum or Plasma COMP METABOLIC PANEL Lab Routine Type 2 diabetes mellitus with diabetic neuropathy, with long-term current use of insulin (HCC) Expected: 05/24/2023, Expires: 08/23/2023 [facility] Work Phone: Comment on above: Expected: 05/24/2023, Expires: 4 Start: 05-24-2023 End: 08-23-2023 Hemoglobin A1c in Blood HGB A1C Lab Routine Type 2 diabetes mellitus with diabetic neuropathy, with long-term current use of insulin (HCC) Expected: 05/24/2023, Expires: 08/23/2023 [facility] Work Phone: Comment on above: Expected: 05/24/2023, Expires: 4 Start: 05-24-2023 End: 08-23-2023 Lipid 1996 panel - Serum or Plasma LIPID PANEL BASIC Lab Routine Other hyperlipidemia Expected: 05/24/2023, Expires: 08/23/2023 [facility] Work Phone: Comment on above: Expected: 05/24/2023, Expires: 4 Start: 05-16-2023 Covid-19 Vaccine () Covid-19 Vaccine () [facility] Start: 04-23-2023 Glaucoma screening Dilated Retinal Exam [facility] Start: 04-23-2023 Hepatitis C antibody, confirmatory test DILATED RETINAL EXAM [facility] Start: 03-25-2023 Advance Directive Discussion Advance Directive Discussion [facility] Start: 03-25-2023 Behavioral Health Screening Behavioral Health Screening [facility] Start: 03-25-2023 Depression Assessment Depression Assessment [facility] Start: 01-26-2023 ANNUAL PCP TEAM CHRONIC DISEASE VISIT ANNUAL PCP TEAM CHRONIC DISEASE VISIT [facility] Start: 01-26-2023 BP CONTROLLED (<130/80) BP CONTROLLED (<130/80) [facility] Start: 01-15-2023 BP CONTROLLED (<130/80) BP CONTROLLED (<130/80) [facility] Start: 12-02-2022 End: 02-01-2023 Basic metabolic 2000 panel - Serum or Plasma BASIC METABOLIC PNL Lab Routine Type 2 diabetes mellitus with diabetic neuropathy, with long-term current use of insulin (HCC) Expected: 12/02/2022, Expires: 02/01/2023 [facility] Work Phone: Comment on above: Expected: 12/02/2022, Expires: 3 Start: 12-02-2022 End: 02-01-2023 Hemoglobin A1c in Blood HGB A1C Lab Routine Type 2 diabetes mellitus with diabetic neuropathy, with long-term current use of insulin (HCC) Expected: 12/02/2022, Expires: 02/01/2023 [facility] Work Phone: Comment on above: Expected: 12/02/2022, Expires: 3 Start: 12-02-2022 End: 02-01-2023 Lipid 1996 panel - Serum or Plasma LIPID PANEL BASIC Lab Routine Other hyperlipidemia Expected: 12/02/2022, Expires: 02/01/2023 [facility] Work Phone: Comment on above: Expected: 12/02/2022, Expires: 3 Start: 11-23-2022 Influenza vaccination [facility] Start: 11-15-2022 COLOGUARD (FIT-DNA) COLOGUARD (FIT-DNA) [facility] Start: 11-15-2022 COLORECTAL CANCER SCREENING COLORECTAL CANCER SCREENING [facility] Start: 09-08-2022 ANNUAL PCP TEAM CHRONIC DISEASE VISIT ANNUAL PCP TEAM CHRONIC DISEASE VISIT [facility] Start: 09-08-2022 BP CONTROLLED (<130/80) BP CONTROLLED (<130/80) [facility] Start: 08-23-2022 Hepatitis B surface antibody level LDL CHOLESTEROL [facility] Start: 05-26-2022 ANNUAL PCP TEAM CHRONIC DISEASE VISIT ANNUAL PCP TEAM CHRONIC DISEASE VISIT [facility] Start: 05-26-2022 BP CONTROLLED (<130/80) BP CONTROLLED (<130/80) [facility] Start: 05-01-2022 3 comp foot exam completed DIABETIC FOOT EXAM [facility] Start: 04-14-2022 Hepatitis C antibody, confirmatory test DILATED RETINAL EXAM [facility] Start: 03-25-2022 ADVANCE DIRECTIVE DISCUSSION ADVANCE DIRECTIVE DISCUSSION [facility] Start: 03-25-2022 DEPRESSION ASSESSMENT DEPRESSION ASSESSMENT [facility] Start: 02-14-2022 Hepatitis B screening URINE ALBUMIN:CREATININE RATIO [facility] Start: 01-29-2022 End: 03-31-2022 CBC panel - Blood by Automated count CBC Lab Routine Essential hypertension Expected: 01/29/2022, Expires: 03/31/2022 [facility] Work Phone: Comment on above: Expected: 01/29/2022, Expires: 3 Start: 01-29-2022 End: 03-31-2022 Comprehensive metabolic 2000 panel - Serum or Plasma COMP METABOLIC PANEL Lab Routine Other hyperlipidemia Expected: 01/29/2022, Expires: 03/31/2022 [facility] Work Phone: Comment on above: Expected: 01/29/2022, Expires: 3 Start: 01-29-2022 End: 03-31-2022 Hemoglobin A1c in Blood HGB A1C Lab Routine Type 2 diabetes mellitus with diabetic neuropathy, with long-term current use of insulin (HCC) Expected: 01/29/2022, Expires: 03/31/2022 [facility] Work Phone: Comment on above: Expected: 01/29/2022, Expires: 3 Start: 01-29-2022 End: 03-31-2022 Lipid 1996 panel - Serum or Plasma LIPID PANEL BASIC Lab Routine Other hyperlipidemia Expected: 01/29/2022, Expires: 03/31/2022 [facility] Work Phone: Comment on above: Expected: 01/29/2022, Expires: 3 Start: 01-26-2022 End: 03-28-2022 ALBUMIN/CREAT RATIO RND UR ALBUMIN/CREAT RATIO RND UR Lab Routine Type 2 diabetes mellitus with diabetic neuropathy, with long-term current use of insulin (HCC) Expected: 01/26/2022, Expires: 03/28/2022 [facility] Work Phone: Comment on above: Expected: 01/26/2022, Expires: 3 Start: 12-09-2021 End: 02-08-2022 Basic metabolic 2000 panel - Serum or Plasma BASIC METABOLIC PNL Lab Routine Type 2 diabetes mellitus with diabetic neuropathy, with long-term current use of insulin (HCC) Expected: 12/09/2021, Expires: 02/08/2022 [facility] Work Phone: Comment on above: Expected: 12/09/2021, Expires: 2 Start: 12-09-2021 End: 02-08-2022 Hemoglobin A1c in Blood HGB A1C Lab Routine Type 2 diabetes mellitus with diabetic neuropathy, with long-term current use of insulin (HCC) Expected: 12/09/2021, Expires: 02/08/2022 [facility] Work Phone: Comment on above: Expected: 12/09/2021, Expires: 2 Start: 11-30-2021 Adult depression screening assessment DEPRESSION SCREENING [facility] Start: 11-23-2021 Influenza vaccination INFLUENZA (#1) [facility] Start: 11-15-2021 Hemoglobin A1c/Hemoglobin.total in Blood HBA1C [facility] Start: 08-15-2021 Hemoglobin A1c/Hemoglobin.total in Blood HBA1C [facility] Start: 07-28-2021 BP CONTROLLED (<130/80) BP CONTROLLED (<130/80) [facility] Start: 03-25-2021 ADVANCE DIRECTIVE DISCUSSION ADVANCE DIRECTIVE DISCUSSION [facility] Start: 03-25-2021 DEPRESSION ASSESSMENT DEPRESSION ASSESSMENT [facility] Start: 03-10-2021 COVID-19 VACCINE (4 - Booster for Pfizer series) COVID-19 VACCINE (4 - Booster for Pfizer series) [facility] Start: 02-12-2021 Hepatitis B screening URINE ALBUMIN:CREATININE RATIO [facility] Start: 02-12-2021 Hepatitis B surface antibody level LDL CHOLESTEROL [facility] Start: 10-15-2019 FECAL OCCULT BLOOD FECAL OCCULT BLOOD [facility] Start: 10-15-2019 Screening for malignant neoplasm of colon Fecal Occult Blood [facility] Start: 06-04-2017 End: 06-04-2017 Appointment Appointment [facility] Work Phone: Start: 02-06-2017 End: 02-07-2017 *CBC with Differential *CBC with Differential [facility] Work Phone: Start: 02-06-2017 End: 02-06-2017 Chest x-ray X-Ray, Chest, PA & Lateral [facility] Work Phone: Start: 02-06-2017 End: 02-06-2017 Echocardiography Echocardiogram (complete) [facility] Work Phone: Start: 02-06-2017 End: 02-06-2017 Follow Up Appt Other Follow Up Appt Other [facility] Work Phone: Start: 02-06-2017 End: 02-06-2017 Nuclear stress test -Lexiscan Nuclear stress test -Lexiscan [facility] Work Phone: Start: 02-06-2017 End: 02-06-2017 PFM PFM [facility] Work Phone: Start: 02-06-2017 End: 02-07-2017 Thyroid stimulating hormone (TSH) *TSH [facility] Work Phone: Start: 02-06-2017 End: 02-07-2017 Thyroxine (T4) *T4 (Total) [facility] Work Phone: Start: 02-06-2017 End: 02-06-2017 Appointment Appointment [facility] Work Phone: Start: 12-03-2016 End: 12-17-2016 *BMP *BMP [facility] Work Phone: Start: 12-03-2016 End: 12-03-2016 Follow Up Appt 6 months Follow Up Appt 6 months [facility] Work Phone: Start: 12-03-2016 End: 12-03-2016 MMM MMM [facility] Work Phone: Start: 02-03-2016 End: 02-03-2016 Follow Up Appt 9 months Follow Up Appt 9 months [facility] Work Phone: Start: 02-03-2016 End: 02-03-2016 PFM PFM [facility] Work Phone: Start: 05-25-2015 End: 06-15-2016 *Hepatic Function Panel *Hepatic Function Panel [facility] Work Phone: Start: 05-25-2015 End: 06-15-2016 Lipid panel [AGGREGATE] *Lipid Profile CC PCP [facility] Work Phone: Start: 05-23-2015 End: 02-06-2017 Follow Up Appt 6 months Follow Up Appt 6 months [facility] Work Phone: Start: 05-23-2015 End: 02-06-2017 Follow Up Appt Other Follow Up Appt Other [facility] Work Phone: Start: 05-23-2015 End: 02-06-2017 MMM MM [facility] Work Phone: Start: 11-16-2014 End: 02-06-2017 Follow Up Appt 6 months Follow Up Appt 6 months [facility] Work Phone: Start: 11-16-2014 End: 05-23-2015 Follow Up Appt Other Follow Up Appt Other [facility] Work Phone: Start: 11-16-2014 End: 02-06-2017 PFM PF [facility] Work Phone: Start: 08-25-2014 End: 11-09-2014 Follow Up Appt Other Follow Up Appt Other [facility] Work Phone: Start: 05-21-2014 End: 05-21-2014 Ecg routine ecg w/least 12 lds w/i&r EKG (In office) [facility] Work Phone: Start: 05-21-2014 End: 05-21-2014 Follow Up Appt 6 months Follow Up Appt 6 months [facility] Work Phone: Start: 05-21-2014 End: 05-21-2014 MMM MMM [facility] Work Phone: Start: 01-06-2014 End: 02-22-2014 INR Coag RelTime (PPP) *PT/INR - Standing Order [facility] Work Phone: Start: 09-21-2013 End: 02-22-2014 *Hepatic Function Panel *Hepatic Function Panel [facility] Work Phone: Start: 09-21-2013 End: 09-21-2013 Follow Up Appt 6 months Follow Up Appt 6 months [facility] Phone: Start: 09-21-2013 End: 02-22-2014 Lipid panel [AGGREGATE] *Lipid Profile CC PCP [facility] Work Phone: Start: 09-21-2013 End: 09-21-2013 PFM PFM [facility] Work Phone: Start: 05-28-2013 End: 05-28-2013 Ecg routine ecg w/least 12 lds w/i&r EKG (In office) [facility] Phone: Start: 05-27-2013 End: 05-28-2013 Ambulatory BP Monitor 24 HR Ambulatory BP Monitor 24 HR [facility] Work Phone: Start: 05-11-2013 End: 05-11-2013 Ecg routine ecg w/least 12 lds w/i&r EKG (In office) [facility] Work Phone: Start: 05-11-2013 End: 05-11-2013 Follow Up Appt Other Follow Up Appt Other [facility] Work Phone: Start: 02-27-2013 End: 02-27-2013 Ecg routine ecg w/least 12 lds w/i&r EKG (In office) [facility] Work Phone: Start: 02-27-2013 End: 11-09-2014 Follow Up Appt Other Follow Up Appt Other [facility] Work Phone: Start: 02-13-2013 End: 08-06-2013 *Hepatic Function Panel *Hepatic Function Panel [facility] Work Phone: Start: 02-13-2013 End: 02-13-2013 Follow Up Appt 6 months Follow Up Appt 6 months [facility] Work Phone: Start: 02-13-2013 End: 08-06-2013 Lipid panel [AGGREGATE] *Lipid Profile CC PCP [facility] Work Phone: Start: 02-13-2013 End: 02-13-2013 MMM MMM [facility] Work Phone: Start: 01-07-2013 End: 09-01-2013 INR Coag RelTime (PPP) *PT/INR - Standing Order [facility] Work Phone: Start: 12-25-2012 End: 01-07-2013 Chest x-ray X-Ray, Chest, PA & Lateral [facility] Work Phone: Start: 12-25-2012 End: 01-07-2013 Ecg routine ecg w/least 12 lds w/i&r EKG (In office) [facility] Work Phone: Start: 12-25-2012 End: 12-25-2012 Echocardiography Echocardiogram (complete) [facility] Work Phone: Start: 12-25-2012 End: 02-27-2013 Follow Up Appt 6 weeks Follow Up Appt 6 weeks [facility] Work Phone: Start: 12-25-2012 End: 11-09-2014 Follow Up Appt Other Follow Up Appt Other [facility] Work Phone: Start: 12-25-2012 End: 01-07-2013 INR Coag RelTime (PPP) *PT/INR [facility] Work Phone: Start: 12-25-2012 End: 02-27-2013 PFM PFM [facility] Work Phone: Start: 2010 Hepatitis B Vaccine (1 of 3 - Risk 3-dose series) Hepatitis B Vaccine (1 of 3 - Risk 3-dose series) [facility] Start: 07-23-1995 Colonoscopy COLONOSCOPY [facility] Start: 07-23-[address] COLONOGRAPHY [facility] Start: 07-23-1995 Screening for malignant neoplasm of colon [facility] Start: 07-23-1995 SIGMOIDOSCOPY SIGMOIDOSCOPY [facility] Start: 1968 Anxiety Screening Anxiety Screening [facility] Start: 1968 Depression Screening Depression Screening [facility] COLOGUARD COLOGUARD Lab Ro utine Screening for colon cancer Ordered: 12/07/2022 [facility] Work Phone: Comment on above: Ordered: 12/07/2022 End: 01-09-2023 ECG COMPLETE ECG COMPLETE ECG Routine Screening for ischemic heart disease 1 Occurrences starting 01/09/2022 until 01/09/2023 [facility] Work Phone: Comment on above: 1 Occurrences starting 01/09/2022 until 01/09/2023 End: 09-09-2025 NM Heart Perfusion W stress and W radionuclide IV NM CARDIAC PERF STRESS/PHARM Radiology Routine 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 ROBIN (dyspnea on exertion) 1 Occurrences starting 08/10/2024 until 09/09/2025 [facility] Work Phone: Comment on above: 1 Occurrences starting 08/10/2024 until 09/09/2025 Patient Education HYPERLIPIDEMIA [facility] Work Phone: End: 08-02-2024 US.doppler Scrotum and testicle US SCROTUM AND CONTENTS Radiology Routine Hydrocele, acquired 1 Occurrences starting 07/04/2023 until 08/02/2024 [facility] Work Phone: Comment on above: 1 Occurrences starting 07/04/2023 until 08/02/2024 US.doppler Scrotum a nd testicle US SCROTUM AND CONTENTS Radiology Routine Hydrocele, acquired 2023 10:50 AM EDT [facility] Work Phone: End: 10-10-2024 XR Elbow - right AP and Lateral XR ELBOW GENERAL 2V AP/LAT RIGHT Radiology Routine Right elbow pain 1 Occurrences starting 09/11/2023 until 10/10/2024 [facility] Work Phone: Comment on above: 1 Occurrences starting 09/11/2023 until 10/10/2024 XR Elbow - right AP and Lateral XR ELBOW GENERAL 2V AP/LAT RIGHT Radiology Routine Right elbow pain 09/16/2023 10:47 AM EDT [facility] Work Phone: [facility] Immunizations Immunization Date Immunization Notes Care Provider [facility] 06-10-2024 COVID-19 vaccine, ag e 12+ yr (PFIZER-BIONTCreative Allies 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 Work Phone: [facility] 12-07-2022 influenza virus vaccine, unspecified formulation Kaila Jimenez PA-C Work Phone: [facility] 12-06-2022 respiratory syncytia l virus (RSV) vaccine, bivalent (ABRYSVO) 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 Work Phone: [facility] 10-01-2022 COVID-19 vaccine, ag e 12+ yr, bivalent (PFIZER-BIONTECH) Krishna Reynolds MD Work Phone: [facility] Work Phone: 12-06-2021 COVID-19 booster vaccine, age 12+ yr, bivalent (PFIZER-BIONTECH) Regulo Stover MD Work Phone: [facility] Work Phone: 11-10-2021 influenza (aIIV4) vaccine, age 65+ yr, quadrivalent, PF (FLUAD QUAD) Krishna Reynolds MD Work Phone: [facility] Work Phone: 11-10-2021 influenza virus vaccine, unspecified formulation Krishna Reynolds MD Work Phone: [facility] 09-08-2021 pneumococcal (PCV20) vaccine, 20 valent (PREVNAR 20) Krishna Reynolds MD Work Phone: [facility] Work Phone: 09-08-2021 pneumococcal Conjuga te, unspecified formulation Krishna Reynolds MD Work Phone: [facility] Work Phone: 11-08-2020 COVID-19 vaccine, ag e 12+ yr (PFIZER-BIONTECH - PURPLE TOP) Krishna Reynolds MD Work Phone: [facility] Work Phone: 11-08-2020 influenza, high dose seasonal, preservative-free Krishna Reynolds MD Work Phone: [facility] Work Phone: 06-16-2020 COVID-19 vaccine, ag e 12+ yr (PFIZER-BIONTECH - PURPLE TOP) Krishna Reynolds MD Work Phone: [facility] Work Phone: 05-26-2020 COVID-19 vaccine, ag e 12+ yr (PFIZER-BIONTECH - PURPLE TOP) Krishna Reynolds MD Work Phone: [facility] Work Phone: 02-08-2020 zoster vaccine recombinant Krishna Reynolds MD Work Phone: [facility] Work Phone: 12-08-2019 influenza, high dose seasonal, preservative-free Krishna Reynolds MD Work Phone: [facility] Work Phone: 12-08-2019 zoster vaccine recombinant Krishna Reynolds MD Work Phone: [facility] Work Phone: 11-03-2018 influenza, high dose seasonal, preservative-free Krishna Reynolds MD Work Phone: [facility] Work Phone: 12-26-2016 influenza, seasonal, injectable Krishna Reynolds MD Work Phone: [facility] Work Phone: 10-17-2016 pneumococcal polysaccharide vaccine, 23 valent Krishna Reynolds MD Work Phone: [facility] 11-16-2015 influenza, high dose seasonal, preservative-free Krishna Reynolds MD Work Phone: [facility] 09-06-2015 pneumococcal conjuga te vaccine, 13 valent Krishna Reynolds MD Work Phone: [facility] 12-14-2014 influenza, seasonal, injectable Krishna Reynolds MD Work Phone: [facility] 02-15-2014 tetanus toxoid, redu glenroy diphtheria toxoid, and acellular pertussis vaccine, adsorbed Krishna Reynolds MD Work Phone: [facility] 12-14-2013 influenza virus vaccine, whole virus Krishna Reynolds MD Work Phone: [facility] Work Phone: 11-17-2012 influenza virus vaccine, unspecified formulation Krishna Reynolds MD Work Phone: [facility] 01-30-2012 zoster vaccine, live Krishna Reynolds MD Work Phone: [facility] Work Phone: 11-27-2011 influenza virus vaccine, whole virus Krishna Reynolds MD Work Phone: [facility] Work Phone: 02-23-2004 pneumococcal polysaccharide vaccine, 23 valent Krishna Reynolds MD Work Phone: [facility] Work Phone: 02-23-2004 tetanus and diphther ia toxoids, not adsorbed, for adult use Krishna Reynolds MD Work Phone: [facility] Work Phone: NEGATED: Highlighted row has not occurred!01-30-2012 influenza virus vaccine, unspecified formulation Krishna Reynolds MD Work Phone: [facility] Work Phone: Payers Date Payer Category Payer Self-pay [id number] 2015 Private Health Insurance [facility] AAR SUPPLEMENT [id number] 2015-Present [phone] [address] [place] [address] Indemnity [id number] 2015 Private Health Insurance [id number] 2015 Unknown [id number] 2011 Medicare MEDICARE MEDICAR E A AND B [id number] 2011-Present [phone] [address] [address] [place] [address] Medicare [id number] 2011 Medicare [id number] 2011 Medicare [id number] Unknown [id number] .[id number] Unknown [id number] .462 Unknown [id number] .462 Unknown [id number] .462 Unknown [id number] .462 Unknown [id number] .462 Unknown [id number] .462 Unknown [id number] [id number] .462 Unknown [id number] .462 Unknown [id number] .462 Unknown [id number] [id number] .462 Unknown [id number] [id number] .462 Unknown [id number] 2.16.840.1.282899.3.579.2 .462 Unknown [id number] [id number] .462 Unknown [id number] .462 Unknown [id number] .462 Unknown [id number] .462 Unknown [id number] .462 Unknown [id number] .462 Social History Date Type Detail Facility Start: 03-31-2020 End: 01-29-2023 Tobacco smoking status NHIS Never smoked tobacco [facility] Start: 03-31-2020 End: 11-18-2023 Tobacco use and exposure User of smokeless tobacco [facility] History of tobacco use [facility] Start: 05-26-2021 End: 10-16-2024 Alcohol intake Current drinker of alcohol (finding) [facility] Start: 02-27-2010 History SDOH Alcohol Comment Rare [facility] Start: 1950 Sex Assigned At Not on file [facility] Start: 08-04-2020 End: 01-29-2023 Tobacco smoking status PRIS Unknown if ever smoked [facility] Start: 09-15-2019 Occasional [facility] Start: 09-15-2019 None [facility] Start: 10-01-2019 Spouse/ Signif icant Other [facility] Start: 06-24-2020 Chew [facility] Start: 1950 Sex Assigned At Male W [facility] Start: 05-22-2020 End: 01-15-2022 Exposure to SARS-CoV-2 (event) Not sure [facility] Work Phone: History of tobacco use Cigarette Smoker [facility] Start: 08-13-2022 End: 10-01-2022 History of Social function [facility] Work Phone: Start: 08-13-2022 End: 10-01-2022 Tobacco use panel [facility] Work Phone: Start: 02-24-2012 Adult Depression Screening Assessment 1 [facility] Work Phone: How often to you hav e a drink containing alcohol? Never [facility] Start: 06-13-2024 End: 06-23-2024 Sex Male (finding) [facility] Procedure Code Equipment Code Equipment Original Text Equipment Identifier Dates [id number], [id number], [id number], [id number], [id number], [id number] Start: 07-03-2011 End: 06-26-2023 Comment on above: [...] 06/11/19 25 8:59 AM Krishna Darling MD [facility] 07-02-2020 Are you deaf, or do you have serious difficulty hearing No 07/02/2020 9:27 AM Eber Blank RN No [facility] 07-02-2020 Are you blind, or do you have serious difficulty seeing, even when wearing glasses No 07/02/2020 9:27 AM Eber Blank, SHALA No [facility] 07-02-2020 Do you have serious difficulty walking or climbing stairs No 07/02/2020 9:27 AM Eber Blank, SHALA No [facility] 07-02-2020 Do you have difficul ty dressing or bathing No 07/02/2020 9:27 AM Eber Blank, SHALA No [facility] 07-02-2020 Because of a physica l, mental, or emotional condition, do you have difficulty doing errands alone such as visiting a physician's office or shopping No 07/02/2020 9:27 AM Eber Blank, SHALA No [facility] Mental Status Date Assessment Result Facility 07-02-2020 Because of a physica l, mental, or emotional condition, do you have serious difficulty concentrating, remembering, or making decisions No 07/02/2020 9:27 AM EDT Eber Eldridge RN No [facility] Clinical Notes 02-10-2020 to 01-02-2025 Arabella Heredia DPM - 11/30/2024 7:21 PM EDTTelephone Encounter - Leisa MarinhVICTORIA - 11/04/2024 8:41 AM EDTTelephone Encounter - Elsa Marin LPN - 11/04/2024 8:41 AM EDT Note Date & Type Note Facility 01-02-2025 Note HNO ID: [id number] Author: ALY TORRE RT(R) Service: ? Author Type: Power Barker Type: Progress Notes Filed: 01/02/2025 11:56 Note Text: Radiology Service Progress Note PATIENT NAME: Miguelangel Moya DATE OF SERVICE: January 02, 2025 TIME: 11:56 AM PATIENT IDENTITY VERIFICATION COMPLETED USING TWO [...] falls during this visit? Offered Assistance with Transfers/Clothing and Increased Observations by Caregivers PATIENT GENDER DATA: Assigned male at PATIENT RELEVANT IMPLANT DATA REVIEWED: Yes PATIENT PRESENTS WITH AN IMPLANTABLE OR ATTACHED WIND FARM DESIGNER: No RADIOLOGY DEPARTMENT: General X-ray: Exam(s) Completed: Chest X-Ray PERIPHERAL IV DATA: Not applicable SIGNED BY: RT Daniel(R) January 02, 2025 11:56 AM [facility] 01-02-2025 Note HNO ID: [id number] Author: RADHIKA FRAZIER MA Service: ? 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 [facility] 01-02-2025 Note HNO ID: [id number] Author: KRISHNA REYNOLDS MD Service: ? Author Type: Physician Type: Progress Notes Filed: 01/02/2025 12:20 Note Text: Subjective Miguelangel Moya is a 74 year old male here with Jessica. He had a negative stress test less than 3 months ago. He was gaining weight and was more dyspneic with mild exertion. He was starting to have blisters in hiis legs and was scheduled to see Dr. Sanabria for vascular follow up. Diabetes, hypertension, hyperlipidemia, and CKD were controlled. He had lumps in his right elbow and forearm that were painful and tender at times. This was also causing pain, numbness, and tingling of the right ulnar forearm, wrist, and small digits. Review of Systems Constitutional: Negative for chills and fever. HENT: Negative for congestion. Respiratory: Positive for shortness of breath. Negative for cough and wheezing. Cardiovascular: Positive for leg swelling. Negative for chest pain and palpitations. Gastrointestinal: Negative. Genitourinary: Negative. Musculoskeletal: Positive for arthralgias (right elbow, forearm, lumps). Skin: Positive for color change. Negative for wound. Neurological: Positive for numbness (right hand digits 4 AND 5). ACTIVE PROBLEM LIST Generalized Osteoarthrosis, Unspecified Site Esophageal Reflux Venous (Peripheral) Insufficiency Type 2 Diabetes Mellitus With Diabetic Neuropathy, With Long-Term Current Use of Insulin ([facility]) Class 3 Severe Obesity With Body Mass Index (Bmi) of 45.0 to 49.9 in Adult ([facility]) Other Hyperlipidemia Essential Hypertension Coronary Artery Disease of [place] Artery of [place] Heart With Stable Angina Pectoris Persistent Atrial Fibrillation ([facility]) Memory Disturbance Bph (Benign Prostatic Hyperplasia) History of Partial Amputation of Toe ([facility]) Robin (Dyspnea On Exertion) Statin Intolerance Chronic Diastolic Congestive Heart Failure ([facility]) Valvular Heart Disease Non-Seasonal Allergic Rhinitis Hypertensive Heart Disease With Chronic Diastolic Congestive Heart Failure ([facility]) Atherosclerosis of Aorta Current Outpatient Medications Medication Sig insulin degludec [...] 1 tablet by mouth once daily. Insulin [place], Disposable, 32 gauge x / Use with insulin 4 times a day. Dx: E11.40; Z79.4 blood sugar diagnostic (BLOOD GLUCOSE TEST) test strip Test blood sugar(s) 4-5 times daily Dx: Type 2 DM - Uncontrolled E11.65 Insulin: Yes BIOTIN ORAL Take 1 tablet by mouth once daily. Fish Oil-Bogota-3 Fatty Acids (FISH OIL OMEGA 3-6-9) 300-1,000 mg CpDR Take 3000 mg daily. Lancets (ONE TOUCH ULTRASOFT LANCETS) Misc lancets twice daily. Use as instructed ( may dispense Deuca brand) MULTIVITAMIN TAB Take one(1) tablet daily. VITAMIN C 1,000 MG TAB Take one(1) tablet daily. No current facility-administered medications for this visit. Objective BP 128/82 Pulse 80 Resp 16 Wt 132 kg (291 lb 0.1 oz) SpO2 96% BMI 45.58 kg/m? Physical Exam Constitutional: General: He is not in acute distress. Appearance: He is not ill-appearing. HENT: Head: Normocephalic. Eyes: Conjunctiva/sclera: Conjunctivae normal. Cardiovascular: Rate and Rhythm: Normal rate. Rhythm irregular. Heart sounds: S1 normal and S2 normal. No murmur heard. Pulmonary: Effort: No respiratory distress. Breath sounds: Examination of the left-lower field reveals rales. Rales present. No wheezing. Abdominal: Palpations: Abdomen is soft. Tenderness: There is no abdominal tenderness. Musculoskeletal: Right lower le+ Pitting Edema present. Left lower le+ Pitting Edema present. Neurological: General: No focal deficit present. Mental Status: He is alert. Comments: Ambulatory with cane. Test results pertinent to today's visit were reviewed and discussed with the (more content not included)... [facility] 12-24-2024 Note HNO ID: [id number] Author: SAMANTHA LIMA MA Service: ? 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 HCC gap closure added to upcoming appointment notes. Topic Due (Y or N) Comments Annual Wellness Exam No PCP Follow up No Colorectal Cancer Screening No A1C Yes Mammogram No BP Control No Dilated Retinal Exam No KED No HCC Yes Flu Vaccine Yes Updated appointment notes Yes Reason for Outreach Care Gap/HCC or Scheduling Wellness Visits Care Gaps due: HBA1C Flu Vaccine Patient Contacted: Unable or unnecessary to reach patient: Unable to leave message HCC related Updated appointment notes Navigation Signature: Samantha Lima MA December 24, 2024 8:06 AM [facility] 12-24-2024 Note Patient Outreach (NE TNAV) MIGUELANGEL MOYA ([id number]) 1950 M Date Time Provider Department 12/24/24 SAMANTHA LIMA NETNAV During your visit today, we recorded the following information about you: Samantha Lima MA 12/24/2024 8:07 AM Signed POPULATION HEALTH NAVIGATION OUTREACH Action/FYI No answer at home phone and unable to leave message. HCC gap closure added to upcoming appointment notes. Topic Due (Y or N) Comments Annual Wellness Exam No PCP Follow up No Colorectal Cancer Screening No A1C Yes Mammogram No BP Control No Dilated Retinal Exam No KED No HCC Yes Flu Vaccine Yes Updated appointment notes Yes Reason for Outreach Care Gap/HCC or Scheduling Wellness Visits Care Gaps due: HBA1C Flu Vaccine Patient Contacted: Unable or unnecessary to reach patient: Unable to leave message HCC related Updated appointment notes Navigation Signature: Samantha Lima MA December 24, 2024 8:06 AM Allergies As of Date: 12/24/2024 Noted Allergy Reaction METOLAZONE 01/15/2022 2 - Rash ALTACE (RAMIPRIL) 12/29/2004 5 - Intolerance BACTRIM (SULFAMETHOXAZOLE-TRIMETH*2020 4 - Hives DIOVAN (VALSARTAN) 12/29/2004 PROPOFOL 02/10/2020 14 - Other: See Comments Comments: agitation RAMIPRIL 11/05/2007 SEASONAL ALLERGIES 08/04/2012 14 - Other: See Comments [id number] REDUCTASE INHIBIT*06/18/2011 14 - Other: See Comments Comments: Muscle aches Date Reviewed: 11/30/2024 Reviewed by: Mattie Mckoy RN - Fully Assessed Reason for Visit: Population Health Navigation Outreach [3910] Cmt: Benjamin/Imani/SCOUT Prescriptions as of 12/24/2024 - insulin degludec (TRESIBA FLEXTOUCH U-200) 200 unit/mL (3 mL) injection Inject 120 Units subcutaneously daily at bedtime. - insulin aspart U-100 (NOVOLOG FLEXPEN U-100 INSULIN) 100 unit/mL (3 mL) pen Inject 25 Units subcutaneously three times a day before meals. Sliding scale 3 times daily. (80 units daily max) - amLODIPine (NORVASC) 2.5 mg tablet Take 1 tablet by mouth once daily. - alirocumab (PRALUENT PEN) 75 mg/mL pen Inject 1 mL subcutaneously every other week. - metoprolol tartrate, short acting, (LOPRESSOR) 50 [...] tablet by mouth once daily. - Insulin [place], Disposable, 32 gauge x Use with insulin 4 times a day. Dx: E11.40; Z79.4 - blood sugar diagnostic (BLOOD GLUCOSE TEST) test strip Test blood sugar(s) 4-5 times daily Dx: Type 2 DM - Uncontrolled E11.65 Insulin: Yes - BIOTIN ORAL Take 1 tablet by mouth once daily. - Fish Oil-Bogota-3 Fatty Acids (FISH OIL OMEGA 3-6-9) 300-1,000 mg CpDR Take 3000 mg daily. - Lancets (ONE TOUCH ULTRASOFT LANCETS) Misc lancets twice daily. Use as instructed ( may dispense Deuca brand) - MULTIVITAMIN TAB Take one(1) tablet daily. - VITAMIN C 1,000 MG TAB Take one(1) tablet daily. Problem List As Of Date 12/24/2024 Noted Resolved GENERAL OSTEOARTHROSIS [M15.9] ESOPHAGEAL REFLUX [K21.9] Venous (peripheral) insufficiency [I87.2] Personal history of contact with and (suspected* 08/19/2014 Type 2 diabetes mellitus with diabetic neuropat* Class 3 severe obesity with body mass index (BM* Nonspecific abnormal results of liver function * 08/19/2014 Other hyperlipidemia [E78.49] Essential hypertension [I10] Diabetic polyneuropathy (HCC) [E11.42] 01/30/2006 04/24/2018 Coronary artery disease of [place] artery of [place]ai*10/07/2007 Persistent atrial fibrillation (HCC) [...] ROBIN (dyspnea on exertion) [R06.09] 11/06/2019 Statin (more content not included)... [facility] 11-30-2024 Note HNO ID: [id number] Author: ARABELLA HEREDIA DPM Service: ? Author [...] 1 tablet by mouth once daily. Fish Oil-[place]-3 Fatty Acids (FISH OIL OMEGA 3-6-9) 300-1,000 mg CpDR Take 3000 mg daily. Lancets (ONE TOUCH ULTRASOFT LANCETS) [facility] lancets twice daily. Use as instructed ( may dispense Deuca brand) VITAMIN C 1,000 MG TAB Take one(1) tablet daily. Insulin [place], Disposable, 32 gauge x /32 Use with [...] agitation Ramipril Seasonal Allergies Other: See Comments Dhufpcj-Mrl-Kka Red* Other: See Comments Muscle aches OBJECTIVE: [...] ICD9: 250.60, ICD10: E11.49 (primary diagnosis) 2. [place] [facility] or callus - ICD9: 700, ICD10: L84 PLAN: Treatment today consisted of -Exam -Debrided calluses x 4 with #15 blade Continue follow up with endo Continue with diabetic shoes Follow-up in 4 months or sooner corine Heredia DPM [facility] 11-30-2024 History of Presen t illness Narrative [...] 1 tablet by mouth once daily. Fish Oil-Bogota-3 Fatty Acids (FISH OIL OMEGA 3-6-9) 300-1,000 mg CpDR Take 3000 mg daily. Lancets (ONE TOUCH ULTRASOFT LANCETS) Misc lancets twice daily. Use as instructed ( may dispense Deuca brand) VITAMIN C 1,000 MG TAB Take one(1) tablet daily. Insulin [place], Disposable, 32 gauge x /32 Use with [...] agitation Ramipril Seasonal Allergies Other: See Comments Ubarehe-Vea-Gwm Red* Other: See Comments Muscle aches OBJECTIVE: [...] ICD9: 250.60, ICD10: E11.49 (primary diagnosis) 2. [facility] or callus - ICD9: 700, ICD10: L84 PLAN: Treatment today consisted of -Exam -Debrided calluses x 4 with #15 blade Continue follow up with endo Continue with diabetic shoes Follow-up in 4 months or sooner corine Heredia DPM documented in this encounter [facility] 11-04-2024 Telephone encounter Note The patient has [...] Marin LPN November 04, 2024 8:49 AM [facility] 11-04-2024 Miscellaneous Notes The patient has been [...] 2024 8:49 AM documented in this encounter [facility] 10-22-2024 Telephone encounter Note Spoke with patient about test results. Patient verbalizes understanding. Ivy Morse LPN [facility] 10-22-2024 Miscellaneous Notes Spoke with patient about [...] you Hung Stover documented in this encounter [facility] 10-22-2024 Telephone encounter Note ----- Message from Regulo Stover MD sent at 10/22/2024 4:58 PM EDT ----- Please call the patient to let him know that his stress test was normal. Heart pumping function is good. I will review the results in more detail at his next's office visit Thank you Hung Stover [facility] 10-19-2024 History of Presen t illness Narrative [...] PATIENT PRESENTS WITH AN IMPLANTABLE OR ATTACHED WIND FARM DESIGNER: n/a CREATININE: Creatinine Date Value Ref Range [...] STATUS: Discontinued PROCEDURE TYPE: NM Stress: 17.1mCi [id number]-Qlovamo was administered IV for Rest Imaging at 08:55 by Gilda Castle. 51.4 mCi Ai86a-Sdcwbcu was administered IV for Stress Imaging at 10:25 by Gilda Castle. PATIENT DISCHARGED TO: Ambulatory patient, left NM department area. Is this a therapy: No A Diagnostic radioactive procedure has taken place, with no further precautions necessary other than routine body substance precautions. More information regarding radiation safety can be found using this link: [email or web address]-%20Diagnostic%20N uclear%20Medicine%20Procedures.p df SIGNATURE: Gilda Castle RT(R) PATIENT NAME: Miguelangel Moya DATE: October 19, 2024 TIME: 11:30 AM PAGER/CONTACT #: documented in this encounter [facility] 10-19-2024 Note HNO ID: [id number] Author: GILDA CASTLE RT(R) Service: Nuclear Medicine [...] PATIENT PRESENTS WITH AN IMPLANTABLE OR ATTACHED WIND FARM DESIGNER: n/a CREATININE: Creatinine Date Value Ref Range [...] STATUS: Discontinued PROCEDURE TYPE: NM Stress: 17.1mCi Cn67e-Ngbpttk was administered IV for Rest Imaging at 08:55 by Gilda Castle. 51.4 mCi Xn65e-Oxtxbaq was administered IV for Stress Imaging at 10:25 by Gilda Castle. PATIENT DISCHARGED TO: Ambulatory patient, left NM department area. Is this a therapy: No A Diagnostic radioactive procedure has taken place, with no further precautions necessary other than routine body substance precautions. More information regarding radiation safety can be found using this link: [email or web address] [email or web address]-% 20Diagnostic%20Nuclear%20Medicin e%20Procedures.pdf SIGNATURE: RT Judith(R) PATIENT NAME: Miguelangel Moya DATE: October 19, 2024 TIME: 11:30 AM PAGER/CONTACT #: [facility] 10-16-2024 Telephone encounter Note Pt's called and is notified of providers message and instructions. She voices understanding. Vernell Lopez RN [facility] 10-16-2024 Miscellaneous Notes Pt's called and is [...] pt with reply. documented in this encounter [facility] 10-16-2024 Telephone encounter Note The standard protocol is to hold scheduled insulin and give sliding scale if indicated by the blood sugar to avoid the blood sugar spiking since he is not getting the scheduled insulin that morning. Check blood fasting blood sugar the day of procedure and give indicated amount of Novolog per sliding scale Leila Suárez APRN.CNP [place] 10-16-2024 Telephone encounter Note Phoned pt and [...] stays below 100. Please advise , Jessica. [facility] 10-16-2024 Telephone encounter Note Typically the scheduled dose of Novolong should be held and patient should take sliding scale insulin only. What are the sliding scale doses? Leila Suárez APRN.CNP [place] 10-15-2024 Telephone encounter Note Called and reviewed [...] floor at Radiology: [address]; [place] [address] * If you need to cancel or reschedule this test or have any questions regarding this test, please call [phone]. [facility] 10-15-2024 Miscellaneous Notes Called and reviewed the [...] floor at Radiology: [address]; [place] [address] * If you need to cancel or reschedule this test or have any questions regarding this test, please call [phone]. documented in this encounter [facility] 10-15-2024 Telephone encounter Note reports pt is having a nuclear stress test on Saturday morning at 8:30 am and they were instructed to check with pcp to ask if pt should take his Novolog 25 units that morning? Also has novolog sliding scale that morning but states he probably won't need that. Please advise and phone pt with reply. [facility] 08-24-2024 Telephone encounter Note Prescription Refill Information [...] 1 tablet by mouth once daily. Guillermina Love [facility] August 24, 2024 9:00 AM [facility] 08-24-2024 Miscellaneous Notes Prescription Refill Information The [...] 1 tablet by mouth once daily. Guillermina Love [facility] August 24, 2024 9:00 AM documented in this encounter [facility] 08-10-2024 Telephone encounter Note Printed and mailed to patient per request. Jamaica Hernandez LPN [facility] 08-10-2024 Miscellaneous Notes Printed and mailed to [...] 2024 1:50 PM documented in this encounter [facility] 08-10-2024 Telephone encounter Note Call received from [...] Mendez RN August 10, 2024 1:50 PM [facility] 08-10-2024 Instructions Regulo Stover MD - 08/10/2024 8:43 AM EDT We are ordering a stress test No caffeine for 36 hours prior to the stress Do not take the metoprolol the day of the stress documented in this encounter [facility] 08-10-2024 History of Presen t illness Narrative Images from the original note were not included. [facility]AL CARDIOLOGY Cardiology ([address]) [address] [id number] OUTPATIENT VISIT DATE 08/10/2024 PRIMARY CARE PHYSICIAN: Krishna Reynolds [address] [place] [address] HISTORY OF PRESENT ILLNESS: Mr. Moya is [...] Procedure Laterality Date ADENOIDECTOMY PRIMARY <AGE 12 1960 Adenoidectomy AMPUTATION TOE INTERPHALANGEAL JOINT Right 09/17/2019 2nd, 3rd toes, right foot AMPUTATION TOE,MT-P JT Left 08/19/2020 distal Symes 2nd & 3rd toe, Left CC CORONARY STENT 07/01/2020 left main, proximal to mild LAD CYSTOSCOPY 06/23/2014 LEFT HEART CATH,PERCUTANEOUS 10/07/2007 Cardiac cath, L heart LEFT HEART CATH,PERCUTANEOUS 12/29/2019 [facility] TONSILLECTOMY PRIMARY/SECONDARY <AGE 12 1957 Tonsillectomy [...] agitation Ramipril Seasonal Allergies Other: See Comments Wincfwb-Qer-Sjr Red* Other: See Comments Muscle aches MEDICATIONS: [...] 1 tablet by mouth once daily. Insulin [place], Disposable, 32 gauge x / Use with insulin 4 times a day. Dx: E11.40; Z79.4 blood sugar diagnostic (BLOOD GLUCOSE TEST) test strip Test blood sugar(s) 4-5 times daily Dx: Type 2 DM - Uncontrolled E11.65 Insulin: Yes BIOTIN ORAL Take 1 tablet by mouth once daily. Fish Oil-Bogota-3 Fatty Acids (FISH OIL OMEGA 3-6-9) 300-1,000 [...] AND RECOMMENDATIONS: 1. 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 Author Type: Physician Type: Progress Notes Filed: 08/10/2024 08:53 Note Text: [facility]IOLOGY Cardiology ([facility]) [address] [id number] OUTPATIENT VISIT DATE 08/10/2024 PRIMARY CARE PHYSICIAN: Krishna Reynolds [address] [place] [address] HISTORY OF PRESENT ILLNESS: Mr. Moya is [...] cath, L heart LEFT HEART CATH,PERCUTANEOUS 12/29/2019 [facility] TONSILLECTOMY PRIMARY/SECONDARY Tonsillectomy TRANSCATH STENT INIT [...] agitation Ramipril Seasonal Allergies Other: See Comments Uaaxlpc-Akc-Rym Red* Other: See Comments Muscle aches MEDICATIONS: [...] 1 tablet by mouth once daily. Insulin [place], Disposable, 32 gauge x /32 Use with insulin 4 (more content not included)... [facility] 08-04-2024 Telephone encounter Note Pharmacy notified. They will order this for pt to chart picker. Pharmacy will notified pts spouse. [facility] 08-04-2024 Miscellaneous Notes Pharmacy notified. They will order this for pt to chart picker. Pharmacy will notified pts spouse. MIGUELANGEL MOYA (Armijo: [id number]) Rx #: [id number] Tresiba FlexTouch (insulin degludec injection) 200 Units/mL [...] on covermymed. MIGUELANGEL MOYA (Armijo: [id number]) - [id number] Tresiba FlexTouch (insulin degludec injection) 200 Units/mL solution status: PA Request Created: August 02, 2024 [id number] Sent: August 04, 2024 documented in this encounter [facility] 08-04-2024 Telephone encounter Note MIGUELANGEL MOYA (Armijo: [id number]) Rx #: [id number] Tresiba FlexTouch (insulin degludec injection) 200 Units/mL [...] claim.. Authorization Expiration Date: March 24, 2099. [facility] 08-04-2024 Telephone encounter Note Per pharmacy PA is needed for the brand name tresiba pt's formulary is the generic but pharmacy says this is not available per manufacture(on back order). Pharmacy says she called the insurance and they would not allow an override code. PA was needed. This was completed on covermymed. MIGUELANGEL MOYA (Armijo: [id number]) - [id number] Tresiba FlexTouch (insulin degludec injection) 200 Units/mL solution status: PA Request Created: August 02, 2024 [id number] Sent: August 04, 2024 [facility] 06-10-2024 Instructions Krishna Reynolds MD - 06/10/2024 [...] review all the medicines you take, even uoxb-cyp-esmlsug medicines. As you get older, the way [...] certain medical conditions. documented in this encounter [facility] 06-10-2024 Note HNO ID: [id number] Author: KRIHSNA REYNOLDS MD Service: ? Author Type: Physician Type: Progress Notes Filed: 06/10/2024 09:54 Note Text: This note was created using TempoIQ. Subjective Miguelangel oMya is a 73 year old male. His [...] Neuropathy, With Long-Term Current Use of Insulin ([facility]) Class 3 Severe Obesity With Body Mass Index (Bmi) of 45.0 to 49.9 in Adult ([facility]) Other Hyperlipidemia Essential Hypertension Coronary Artery Disease of [place] Artery of [place] Heart With Stable Angina Pectoris ([facility]) Persistent Atrial Fibrillation ([facility]) Memory Disturbance Bph (Benign Prostatic [...] 1 tablet by mouth once daily. Insulin [place], Disposable, 32 gauge x 5/32 Use with insulin 4 times a day. Dx: E11.40; Z79.4 blood sugar diagnostic (BLOOD GLUCOSE TEST) test strip Test blood sugar(s) 4-5 times daily Dx: Type 2 DM - Uncontrolled E11.65 Insulin: Yes BIOTIN ORAL Take 1 tablet by mouth once daily. Fish Oil-Bogota-3 Fatty Acids (FISH OIL OMEGA 3-6-9) 300-1,000 [...] Yellowish. Multiple toes (more content not included)... [facility] 06-10-2024 History of Presen t illness Narrative This note was created using [employer]. Subjective Miguelangel Moya is a 73 year [...] Neuropathy, With Long-Term Current Use of Insulin ([facility]) Class 3 Severe Obesity With Body Mass Index (Bmi) of 45.0 to 49.9 in Adult ([facility]) Other Hyperlipidemia Essential Hypertension Coronary Artery Disease of [place] Artery of [place] Heart With Stable Angina Pectoris ([facility]) Persistent Atrial Fibrillation ([facility]) Memory Disturbance Bph (Benign Prostatic Hyperplasia) History of Partial Amputation of Toe ([facility]) Robin (Dyspnea On Exertion) Statin Intolerance Chronic Diastolic Congestive Heart Failure ([facility]) Valvular Heart Disease Non-Seasonal Allergic Rhinitis Hypertensive Heart Disease With Chronic Diastolic Congestive Heart Failure ([facility]) Atherosclerosis of Aorta ([facility]) Social History Tobacco Use Smoking [...] 1 tablet by mouth once daily. Insulin [place], Disposable, 32 gauge x / Use with insulin 4 times a day. Dx: E11.40; Z79.4 blood sugar diagnostic (BLOOD GLUCOSE TEST) test strip Test blood sugar(s) 4-5 times daily Dx: Type 2 DM - Uncontrolled E11.65 Insulin: Yes BIOTIN ORAL Take 1 tablet by mouth once daily. Fish Oil-Bogota-3 Fatty Acids (FISH OIL OMEGA 3-6-9) 300-1,000 [...] immunization - ICD9: V03.89, ICD10: Z23 - PFIZER-BIONTECH COVID-19 VACCINE AGE 12+ YR ([place]Y) 3. [...] current medications 8. 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 documented in this encounter [facility] 06-10-2024 Note HNO ID: [id number] Author: KRISHNA REYNOLDS MD Service: ? Author [...] MD as PCP - General Leila Suárez, PEREZ.AUTO SPECIALTY SERVICES MANAGER as Morning Caregiver (Internal Medicine) Regulo Stover MD (Cardiology) Arabella [...] loss. BMI 44.25 kg/(m2) - Covid vaccine. [facility] 05-28-2024 Telephone encounter Note Prescription Refill Information [...] Guillermina Pires May 28, 2024 9:09 AM [facility] 05-28-2024 Miscellaneous Notes Prescription Refill Information The [...] 2024 9:09 AM documented in this encounter [facility] 05-25-2024 Note HNO ID: [id number] Author: ARABELLA HEREDIA DPM Service: ? Author [...] injury (DANIELA) with acute tubular necrosis (ATN) ([facility]) 11/06/2019 CAD (coronary artery [...] 1 tablet by mouth once daily. Insulin [place], Disposable, 32 gauge x Use with insulin [...] 1 tablet by mouth once daily. Fish Oil-Bogota-3 Fatty Acids (FISH OIL OMEGA 3-6-9) 300-1,000 [...] agitation Ramipril Seasonal Allergies Other: See Comments Xipivky-Kpl-Avj Red* Other: See Comments Muscle aches OBJECTIVE: [...] 3 months or sooner corine Heredia DPM [facility] 05-25-2024 History of Presen t illness Narrative [...] injury (DANIELA) with acute tubular necrosis (ATN) ([facility]) 11/06/2019 CAD (coronary artery [...] 1 tablet by mouth once daily. Insulin [place], Disposable, 32 gauge x 5/32 Use with [...] 1 tablet by mouth once daily. Fish Oil-Bogota-3 Fatty Acids (FISH OIL OMEGA 3-6-9) 300-1,000 [...] agitation Ramipril Seasonal Allergies Other: See Comments Mawoekj-Zbi-Pte Red* Other: See Comments Muscle aches OBJECTIVE: [...] corine Heredia DPM documented in this encounter [facility] 04-30-2024 Telephone encounter Note Prescription Refill Information [...] Kalyani Serrato April 30, 2024 2:48 PM [facility] 04-30-2024 Miscellaneous Notes Prescription Refill Information The [...] 2024 2:48 PM documented in this encounter [facility] 04-14-2024 Telephone encounter Note Pt brought in handicap parking request. Pcp completed letter. Pt notified both are in medical records for chart picker. [facility] 04-14-2024 Miscellaneous Notes Pt brought in handicap parking request. Pcp completed letter. Pt notified both are in medical records for chart picker. documented in this encounter [facility] 03-07-2024 Telephone encounter Note Prescription Refill Information [...] Guillermina Pires March 07, 2024 9:52 AM [facility] 03-07-2024 Miscellaneous Notes Prescription Refill Information The [...] 2024 9:52 AM documented in this encounter [facility] 02-10-2024 Note HNO ID: [id number] Author: KRISHNA REYNOLDS MD Service: ? Author Type: Physician Type: Progress Notes Filed: 02/10/2024 18:47 Note Text: This note was created using TempoIQ. Subjective Patient presents with: Pain Miguelangel Moya [...] Neuropathy, With Long-Term Current Use of Insulin ([facility]) Class 3 Severe Obesity With Body Mass Index (Bmi) of 45.0 to 49.9 in Adult ([facility]) Other Hyperlipidemia Essential Hypertension Coronary Artery Disease of [place] Artery of [place] Heart With Stable Angina Pectoris ([facility]) Persistent Atrial Fibrillation ([facility]) Memory Disturbance Bph (Benign Prostatic Hyperplasia) History of Partial Amputation of Toe ([facility]) Robin (Dyspnea On Exertion) Statin [...] 1 tablet by mouth once daily. Insulin [place], Disposable, 32 gauge x 5/32 Use with [...] 1 tablet by mouth once daily. Fish Oil-Bogota-3 Fatty Acids (FISH OIL OMEGA 3-6-9) 300-1,000 [...] neuropathy, with long-term current use of insulin ([facility]) - ICD9: 250.60, 357.2, V58.67, ICD10: E11.40, Z79.4 - Worsening control Shared Medical Decision Making was done: Medication: gabap (more content not included)... [facility] 02-10-2024 History of Presen t illness Narrative This note was created using Filter Squadriter. 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 Insulin [place], Disposable, 32 gauge x 5/32 Use with [...] 1 tablet by mouth once daily. Fish Oil-Bogota-3 Fatty Acids (FISH OIL OMEGA 3-6-9) 300-1,000 [...] neuropathy, with long-term current use of insulin ([facility]) - ICD9: 250.60, 357.2, V58.67, ICD10: E11.40, [...] Krishna Reynolds MD documented in this encounter [facility] 01-23-2024 Telephone encounter Note Patient states that he is ok with taking the 75mg every other week. He states that he was having constipation issues on the 150mg dose. Patient aware that his cholesterol is poorly controlled. Yoselin Hilario RN [facility] 01-23-2024 Miscellaneous Notes Patient states that he [...] advise. Thank you. documented in this encounter [facility] 01-22-2024 Telephone encounter Note Images from the original note were not included. Regulo Stover MD We can decrease the Praluent if he believes this is really leading to his constipation. However, he has to realize that his cholesterol is still fairly poorly controlled on the 75 mg every other week dose. Hung [facility] 01-06-2024 Telephone encounter Note Pt is having trouble with bowel movement, believes that he needs to change the Parluent medication. Wants to switch back to 75. Please advise. Thank you. [facility] 12-12-2023 Telephone encounter Note Pt brought in annual FMLA for pcp to complete for pt's son's work. Sone takes pt to appts. Pt reports no change from last year. This has been completed by pcp and faxed back to son's work. [facility] 12-12-2023 Miscellaneous Notes Pt brought in annual FMLA for pcp to complete for pt's son's work. Sondavid takes pt to appts. Pt reports no change from last year. This has been completed by pcp and faxed back to son's work. documented in this encounter [facility] 12-11-2023 History of Presen t illness Narrative This note was created using Filter [employer]. Subjective Miguelangel Moya is a 73 year [...] Neuropathy, With Long-Term Current Use of Insulin ([facility]) Class 3 Severe Obesity With Body Mass Index (Bmi) of 45.0 to 49.9 in Adult ([facility]) Other Hyperlipidemia Essential Hypertension Coronary Artery Disease of [place] Artery of [place] Heart With Stable Angina Pectoris ([facility]) Persistent [...] 1 tablet by mouth once daily. Insulin [place], Disposable, 32 gauge x 5/32 Use with [...] 1 tablet by mouth once daily. Fish Oil-Bogota-3 Fatty Acids (FISH OIL OMEGA 3-6-9) 300-1,000 mg CpDR Take 3000 mg daily. Lancets (ONE TOUCH ULTRASOFT LANCETS) [facility] lancets twice daily. Use as instructed ( [...] neuropathy, with long-term current use of insulin ([facility]) - ICD9: 250.60, 357.2, V58.67, ICD10: E11.40, Z79.4 (primary diagnosis) - Controlled - Continue current medications - COMPREHENSIVE METABOLIC PANEL - LIPID PANEL BASIC - HEMOGLOBIN A1C - ALBUMIN/CREATININE RATIO, URINE 2. Coronary artery disease involving s[place] heart without angina pectoris, unspecified vessel or [...] Krishna Reynolds MD documented in this encounter [facility] 12-03-2023 Telephone encounter Note Updated med list. Josefina Ballard MA [facility] 12-03-2023 Miscellaneous Notes Updated med list. Josefina Ballard MA Spouse calling to let office know that patient did decide to change ASA from 325mg to 81mg. Yolie Bernard LPN documented in this encounter [facility] 12-02-2023 Telephone encounter Note Spouse calling to let office know that patient did decide to change ASA from 325mg to 81mg. Yolie Bernard LPN [facility] 11-20-2023 Telephone encounter Note Prescription Refill Information [...] Natasha Serrato November 20, 2023 9:12 AM [facility] 11-20-2023 Miscellaneous Notes Prescription Refill Information The [...] 2023 9:12 AM documented in this encounter [facility] 11-18-2023 History of Presen t illness Narrative [...] injury (DANIELA) with acute tubular necrosis (ATN) ([facility]) 10/07/2007: CAD (coronary artery disease) Comment: 70% [...] and unspecified hyperlipidemia 10/07/2007: Paroxysmal atrial fibrillation (HCC) No date: Personal history of contact with [...] 1 tablet by mouth once daily. Insulin [place], Disposable, 32 gauge x 5/32 Use with [...] 1 tablet by mouth once daily. Fish Oil-Bogota-3 Fatty Acids (FISH OIL OMEGA 3-6-9) 300-1,000 [...] agitation Ramipril Seasonal Allergies Other: See Comments Mhzpaqy-Mek-Zqz Red* Other: See Comments Muscle aches OBJECTIVE: [...] Arabella Heredia DPM documented in this encounter [facility] 11-18-2023 Instructions Regulo Stover MD - 11/18/2023 8:56 AM EDT We are goint to increase the Praluent to 150 mg per 2 weeks Repeat fasting blood work in 3-4 months documented in this encounter [facility] 11-18-2023 History of Presen t illness Narrative Images from the original note were not included. [facility] SECTION OF REGIONAL CARDIOLOGY Cardiology ([facility]) [address] [id number] OUTPATIENT VISIT DATE 11/18/2023 PRIMARY CARE PHYSICIAN: Krishna Reynolds [address] [place] [address] HISTORY OF PRESENT ILLNESS: Mr. Moya is [...] injury (DANIELA) with acute tubular necrosis (ATN) ([facility]) 10/07/2007: CAD (coronary artery disease) Comment: 70% [...] and unspecified hyperlipidemia 10/07/2007: Paroxysmal atrial fibrillation (HCC) No date: Personal history of contact with [...] L heart 12/29/2019: LEFT HEART CATH,PERCUTANEOUS Comment: [facility] 1957: TONSILLECTOMY PRIMARY/SECONDARY <AGE 12 Comment: Tonsillectomy 11/10/2007: TRANSCATH STENT INIT VESSELCESAR Comment: Transcath stent init vessel DILIA langley [...] agitation Ramipril Seasonal Allergies Other: See Comments Qyivqzx-Fei-Yoz Red* Other: See Comments Muscle aches MEDICATIONS: amLODIPine (NORVASC) 2.5 mg tablet Take 1 tablet by mouth once daily. Insulin [place], Disposable, 32 gauge x Use with insulin [...] 1 tablet by mouth once daily. Fish Oil-Bogota-3 Fatty Acids (FISH OIL OMEGA 3-6-9) 300-1,000 [...] are no significant valvular abnormalities. Echocardiogram 12/10/2019 [place]: Technically difficult study Grossly normal LV function [...] AND RECOMMENDATIONS: 1. 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 Mr. Miguelangel Moya was advised as to [...] or possibly calcinosis cutis are differential considerations. Revenue Audit Clerk: ASHUTOSH Transcribe Date/Time: Sep 19 2023 9:33P [...] cath, L heart LEFT HEART CATH,PERCUTANEOUS 12/29/2019 [facility] TONSILLECTOMY PRIMARY/SECONDARY <AGE 12 1957 Tonsillectomy [...] 1 tablet by mouth once daily. Fish Oil-Bogota-3 Fatty Acids (FISH OIL OMEGA 3-6-9) 300-1,000 mg CpDR Take 3000 mg daily. aspirin, enteric coated (ASPIRIN, ENTERIC COATED) 325 mg EC tablet Take 1 tablet by mouth once daily. MULTIVITAMIN TAB Take one(1) tablet daily. VITAMIN C 1,000 MG TAB Take one(1) tablet daily. Insulin Lans[place], Disposable, 32 gauge x 5/32 Use with [...] 2 DM - Uncontrolled .65 Insulin: Yes blood sugar diagnostic (BLOOD GLUCOSE TEST) test strip Test blood sugar(s) 4-5 times daily Dx: Type 2 DM - Uncontrolled E11.65 Insulin: Yes Lancets (ONE TOUCH ULTRASOFT LANCETS) [facility]anc[facility] twice daily. Use as instructed ( may dispense Deuca brand) No current facility-administered medications for this visit. Allergies: Metolazone, Altace [Ramipril], Bactrim [Sulfamethoxazole-Trimethoprim], Diovan [Valsartan], Propofol, Ramipril, Seasonal Allergies, and Mpjwfwq-Tvb-Wpi Reductase Inhibitors ROS: General (negative for fatigue, malaise, weight loss/gain) HEENT (negative for headache, earache, recent vision changes, sinus pain, sore throat) Respiratory (no recent shortness of breath, hemoptysis) CV (negative for chest tightness, palpitations) Musculoskeletal (see HPI) Psych (no depression, anxiety) This note was partially generated using MongoSluice voice recognition system, and there may be [...] Left hand dominant. documented in this encounter [facility] 09-16-2023 History of Presen t illness Narrative [...] PATIENT PRESENTS WITH AN IMPLANTABLE OR ATTACHED WIND FARM DESIGNER: No RADIOLOGY DEPARTMENT: General X-ray: Exam(s) Completed: Upper Extremity X-Ray(s): Elbow, right PERIPHERAL IV DATA: Not applicable SIGNED BY: RT Daniel(R) September 16, 2023 10:45 AM documented in this encounter [facility] 09-10-2023 History of Presen t illness Narrative This note was created using Filter Squadriter. Subjective Patient presents with: Thad Moya is [...] Neuropathy, With Long-Term Current Use of Insulin ([facility]) Class 3 Severe Obesity With Body Mass Index (Bmi) of 45.0 to 49.9 in Adult (Hcc) Other Hyperlipidemia Essential Hypertension Coronary Artery Disease of [place] Artery of [place] Heart With Stable Angina Pectoris (Hcc) Persistent Atrial Fibrillation ([facility]) Memory Disturbance Bph (Benign Prostatic Hyperplasia) History of Partial Amputation of Toe ([facility]) Robin (Dyspnea On Exertion) Statin [...] Krishna Reynolds MD documented in this encounter [facility] 07-29-2023 Telephone encounter Note Pts wanted to let provider know that she had Pt scheduled with Dr Godinez on 09/02/23. [facility] 07-29-2023 Miscellaneous Notes Pts wanted to let provider know that she had Pt scheduled with Dr Godinez on 09/02/23. documented in this encounter [facility] 07-27-2023 Telephone encounter Note Patient's notified, verbalized understanding. Referral faxed to Dr. Godinez's office. US results mailed to pts home as requested. Chaz Alfaro MA [facility] 07-27-2023 Miscellaneous Notes Patient's notified, verbalized understanding. [...] [place] Iraheta LPN documented in this encounter [facility] 07-26-2023 Telephone encounter Note Left testicular septated (complicated cyst) epididymal cyst versus encysted hydrocele. Short term follow up ultrasound recommended. I recommend consult with Dr. Godinez. ASSESSMENT/PLAN: 1. Hydrocele, acquired - ICD9: 603.9, ICD10: N43.3 (primary diagnosis) - CONSULT TO UROLOGY 2. Testicular cyst - ICD9: 608.89, ICD10: N44.2 - CONSULT TO UROLOGY Krihsna Reynolds MD [facility] 07-25-2023 Telephone encounter Note Patient calling wanting results of ultrasound. Please review and advise. [place] Iraheta LPN [facility] 2023 History of Presen t illness Narrative [...] PATIENT PRESENTS WITH AN IMPLANTABLE OR ATTACHED WIND FARM DESIGNER: No RADIOLOGY DEPARTMENT: Ultrasound PERIPHERAL IV DATA: Not applicable SIGNED BY: Demi Nova RDMS RVT 2023 11:48 AM documented in this encounter [facility] 07-04-2023 History of Presen t illness Narrative This note was created using TempoIQ. Subjective Miguelangel Moya is a 72 year [...] Neuropathy, With Long-Term Current Use of Insulin ([facility]) Class 3 Severe Obesity With Body Mass Index (Bmi) of 45.0 to 49.9 in Adult ([facility]) Other Hyperlipidemia Essential Hypertension Coronary Artery Disease of [place] Artery of [place] Heart With Stable Angina Pectoris ([facility]) Persistent Atrial Fibrillation (Hcc) Memory Disturbance Bph (Benign Prostatic Hyperplasia) History of Partial Amputation of Toe ([facility]) Robin (Dyspnea On Exertion) Statin Intolerance Chronic Diastolic Congestive Heart Failure (Hcc) Valvular Heart Disease Non-Seasonal Allergic Rhinitis Hypertensive Heart Disease With Chronic Diastolic Congestive Heart Failure ([facility]) Atherosclerosis of Aorta ([facility]) Current Outpatient Medications Medication Sig Insulin Lansing, Disposable, 32 gauge x /32 Use with [...] 1 tablet by mouth once daily. Fish Oil-Bogota-3 Fatty Acids (FISH OIL OMEGA 3-6-9) 300-1,000 mg CpDR Take 3000 mg daily. Lancets (ONE TOUCH ULTRASOFT LANCETS) [facility] lancets twice daily. Use as instructed ( [...] Krishna Reynolds MD documented in this encounter [facility] 06-26-2023 Miscellaneous Notes Patient's request for medication is as follows Requested Prescriptions Signed Prescriptions Disp Refills Insulin Lansing, Disposable, 32 gauge x 5/32 400 Each [...] review by PCP. Please send order to [facility]. Thank you. documented in this encounter [facility] 06-13-2023 Miscellaneous Notes Patient has been identified [...] you. Merrick Serrato. documented in this encounter [facility] 06-07-2023 Instructions Krishna Reynolds MD - 06/07/2023 8:42 AM EDT CONSIDER ADDING EZETIMIBE (ZETIA) 10 MG 1 TABLET DAILY TO HELP LOWER CHOLESTEROL. THIS IS NOT A STATIN MEDICATION. documented in this encounter [facility] 06-07-2023 History of Presen t illness Narrative This note was created using TempoIQ. Subjective Miguelangel Moya is a 72 year [...] Neuropathy, With Long-Term Current Use of Insulin ([facility]) Class 3 Severe Obesity With Body Mass Index (Bmi) of 45.0 to 49.9 in Adult ([facility]) Other Hyperlipidemia Essential Hypertension Coronary Artery Disease of [place] Artery of [place] Heart With Stable Angina Pectoris ([facility]) Persistent Atrial Fibrillation ([facility]) Memory Disturbance Bph (Benign Prostatic Hyperplasia) History of Partial Amputation of Toe (Hcc) Robin (Dyspnea On Exertion) Statin Intolerance Chronic Diastolic Congestive Heart Failure (Hcc) Valvular Heart Disease Non-Seasonal Allergic Rhinitis Hypertensive Heart Disease With Chronic Diastolic Congestive Heart Failure (Hcc) Atherosclerosis of Aorta (Hcc) Current Outpatient Medications Medication Sig insulin aspart, [...] 1 tablet by mouth once daily. Fish Oil-Bogota-3 Fatty Acids (FISH OIL OMEGA 3-6-9) 300-1,000 [...] wellness note. 2. 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 documented in this encounter [facility] 05-22-2023 Miscellaneous Notes Orders faxed to [facility] Lab, notified. Roxanna Dennis LPN Fasting CMP, Lipids, A1C orders printed. Pt reports his appt with pcp is 06-07-23 and he would like pcp to order labs and send orders to [facility] lab for him to complete. He plans to get them done on 05-29 or . Reports he needs pcp to order cholesterol lab because Dr. Stover has him on a cholesterol injection, Praluent. Asking pcp to send order for that and whatever else you think he needs. Please notify pt when these are sent to [facility] lab. documented in this encounter [facility] 03-26-2023 History and physi corrine note Note Date/Time March 26, 2023 10:43am [facility] [address] [place] [address] H&P Exam - Wound Care 03/26/23 1037 MR#: [id number] Acct: [id number] Name: MIGUELANGEL MOYA Rep #:[id number] : 1950 72 From: Ronak Valdez PCP: [...] fibrillation, gastroesophageal reflux disease, hypercholesterolemia, and obesity. [facility] Medical History Atherosclerotic heart disease of sokaogon coronary artery without angina pectoris Balance disorder [...] AdvReac Severe Fast HR Verified 01/29/23 09:22 Awsmbnk-WDT-NbG Reductase AdvReac Intermediate Muscle Verified 01/29/23 09:22 Inhibitor aches [Seladrk-Vnp-Isn Reductase Inhibitor] Family History Other Family history [...] Visit Information Type of service Follow-up Visit (Physician/AUTO SPECIALTY SERVICES MANAGER ) Arrival Mode Ambulatory, Walker Patient Identification [...] Recorded Date Recorded By Document 03/26/23 10:07 GOSOop 03/26/23 10:17 KW 03/26/23 10:07 Wound Center [...] Recorded Date Recorded By Document 03/26/23 10:31 GOSOop 03/26/23 10:32 KW 03/26/23 10:31 Wound Care [...] CODE(S): I25.10 - Atherosclerotic heart disease of sokaogon coronary artery without angina pectoris QUALIFIERS: Coronary Disease-Associated Artery/Lesion type: nativeartery [place] vs. transplanted heart: sokaogon heart (11) HLD (hyperlipidemia): CODE(S): E78.5 - Hyperlipidemia, unspecified (12) GERD (gastroesophageal reflux disease): CODE(S): K21.9 - Gastro-esophageal reflux disease without esophagitis (13) Type 2 diabetes mellitus: CODE(S): E11.9 - Type 2 diabetes mellitus without complications (14) Essential hypertension: CODE(S): I10 - Essential (primary) hypertension (15) Atherosclerotic heart disease of sokaogon coronary artery without angina pectoris: CODE(S): I25.10 - Atherosclerotic heart disease of s[place] coronary artery without angina pectoris QUALIFIERS: [place] vs. transplanted heart: sokaogon heart QualifiedCode(s): I25.10 - Atherosclerotic heart disease of soka[place] coronary artery without angina pectoris (16) Paroxysmal [...] Cosigner Signature (if applicable): CC: ~ Signed [facility] Work Phone: 1(598) 415-913712-20-2023 Miscellaneous Notes* Telephone Encounter - Natalie Mena RPh - 03/13/2023 9:33 AM EST Please resend Praluent order to [facility]. We originally received an order from you on 03/11/23. Then PCP provider d/c'd the order and resent to [facility] on 03/12/23 which they then called to discontinue. So We spoke to patient and patient is requesting to fill with [facility] as we have a adelina on file to help pay for medication. Thank you kindly, Natalie Mena, Pharmacist [facility] [phone] (phone) [phone] (fax) documented in this encounter[facility] History of Present illness Narrative* Nhung Longo [...] 14, 2023 11:44 AM documented in this encounterProm[facility]10-[facility]-2023 Miscellaneous Notes* Telephone Encounter - Josefina Qureshi LPN - 01/14/2023 10:27 AM EDT called to see if we received results for the Cologuard test . Results given negative. Josefina Qureshi LPN documented in this encounterProm[facility]09-[facility] History of Present illness Narrative* Drew, PEREZ Dee.AUTO SPECIALTY SERVICES MANAGER - 12/07/2022 7:07 AM EDT CC: Patient presents with: F/U 6 months HPI Miguelangel Moya is a 72 year old male who presents today for above. Denies any concerns or issues today. Feeling well overall. Taking all medications as prescribed, denies side effects. BLE venous insufficiency wounds and edema managed by [facility] wound center, wounds are healed and [...] cath, L heart LEFT HEART CATH,PERCUTANEOUS 12/29/2019 [facility] TONSILLECTOMY PRIMARY/SECONDARY <AGE 12 1957 Tonsillectomy TRANSCATH STENT INIT VESSEL,PERCUT 11/10/2007 Transcath stent init vessel percut, DILIA VASECTOMY UNI/BI SPX W/POSTOP SEMEN EXAMS 1977 ALLERGIES Metolazone, Altace [Ramipril], Bactrim [Sulfamethoxazole- Trimethoprim], Diovan [Valsartan], Propofol, Ramipril, Seasonal Allergies, and Khspoas-Snt-Mpj Reductase Inhibitors MEDICATIONS insulin degludec (TRESIBA FLEXTOUCH [...] diabetic (UNIFINE PENTIPS PLUS) 33 gauge x 32 ndle^Use with insulin four times daily. E11.40, Z79.4^Disp: 400 Each^Rfl: 2 bempedoic acid-ezetimibe (NEXLIZET) 180-10 mg tablet^Take 1 tablet by mouth once daily.^Disp: 30 tablet^Rfl: 5 (Patient not taking: Reported on 11/19/2022) flash glucose scanning reader (1MindSTYLE [facility] 2 READER)^Test blood sugar(s) 4-5 times [...] tablet by mouth once daily.^Disp: ^Rfl: Fish Oil-Bogota-3 Fatty Acids (FISH OIL OMEGA 3-6-9) 300-1,000 [...] DATA REVIEWED: Most recent labs done at [facility] ASSESSMENT/PLAN: 1. Type 2 diabetes mellitus [...] Patient agreeable to treatment plan. Leila Russell APRN.DANA documented in this encounterProm[facility]09-14-2023 Miscellaneous Notes* Telephone Encounter - Agnieszka Khanna LPN - 12/06/2022 10:34 AM EDT Pt has appt 12/07/22 with UNIVERSAL GRINDER SET UP OPERATOR * Telephone Encounter - Iyv Allen - 12/06/2022 9:17 AM EDT Patient [...] and advise. Ivy Allen documented in this encounterPromedica [facility] Hospital08-28-2023 History of Present illness Narrative* Arabella Heredia DPChristina - 11/19/2022 3:48 PM EDT Images from [...] Dx: Type2 DM - Uncontrolled Insulin: Yes BIOTIN ORAL Take 1 tablet by mouth once daily. Fish Oil-Bogota-3 Fatty Acids (FISH OIL OMEGA 3-6-9) 300-1,000 [...] Type 2 DM - Uncontrolled Insulin: Yes Current Facility-Administered Medications Medication Dose Route Frequency perflutren lipid microspheres 1.3 mL in NaCl (PF) 0.9% 10 mL injection (DEFINITY) INTRAVENOUS DIRECTED PRN sodium chloride 0.9 % (flush) 10 mL (BD POSIFLUSH) 10 mL INTRAVENOUS DIRECTED PRN ALLERGIES Allergen Reactions Metolazone Rash Altace [Ramipril] Intolerance Bactrim [Sulfametho* Hives Diovan [Valsartan] Propofol Other: See Comments agitation Ramipril Seasonal Allergies Other: See Comments Hjmcjux-Sza-Cks Red* Other: See Comments Muscle aches OBJECTIVE: [...] prn Arabella Heredia DPM documented in this encounterPromedica [facility] Hospital08-25-2023 Progress note Author Dalia Lazo [facility] November 16, 2022 11:57am Note Date/Time November 15, 2022 12 :24pm [facility] [address] [place] [address] Progress Note - Wound Care 11/15/22 1223 MR#: [id number] Acct: [id number] Name: MIGUELANGEL MOYA Rep #:[id number] : 1950 72 From: Dalia MONTGOMERY PCP: Dr. Krishna Reynolds MD Status:R EG RCR Location: [facility] History of Present Illness Date of Service: [...] Index (BMI) 46.0 Charges/Coding Procedures Integumentary 111xxx-113xx: 33394 Lenore subq tissue 20 sq cm/< Physical [...] Date Recorded By Document 11/02/22 10:00 APOLLO [id number] 11/02/22 10:11 APOLLO 11/02/22 10:00 - Today's [...] Bottom <Entered> (a) Communication Assessment Preferred language Lebanese Purchasing Manager Required No Able to Read Yes Able [...] Patient Yes List Device(s) with Patient cane Culture/Scientology/Metal Base Blocker Cultural/Scientology Needs that may affect No Treatment Plan Would you allow our hospital composite technician to No meet you for the purpose of spiritual/ emotional support? Metal Base Blocker to contact place of pentecostal No Teaching: Wound Center [facility] Orientation/ Contacting Physician -Person Taught Patient,Family -Teaching Method Discussion, Demonstration -Response to teaching Return demonstration, Verbalize understanding (a) 1 - positive 2 - positive 3 - positive 4 - positive - Nurse 1 - General Ulcer Measurement Start: 11/02/22 10:00 Freq: Status: Active Protocol: Activity Type Activity Date Activity User E-sign Co-sign Detail Recorded Client Recorded Date Recorded By Document 11/02/22 10:00 APOLLO [id number] 11/02/22 10:11 APOLLO 11/02/22 10:00 Wound Center [...] Recorded Date Recorded By Document 11/02/22 16:28 PL [id number] 11/02/22 16:29 PL 11/02/22 16:28 Wound Center [...] 0-10 Numeric Is Patient Pain Free? Yes VERONICA - Nurse 3 - General Ulcer D/C NN Start: 11/02/22 10:00 Freq: Status: Active Protocol: Activity Type Activity Date Activity User E-sign Co-sign Detail Recorded Client Recorded Date Recorded By Document 11/02/22 10:57 MW [id number] 11/02/22 10:59 MW Edit Result 11/02/22 10:57 MW (1) [id number] 11/02/22 11:01 MW (1) 1-right medial leg [...] times. Arterial and venous studies scheduled for 8/25/23, will discuss results next week. Emphasized the importance of good glycemic control to support wound healing. He will return to clinic in 1 week. 11/16/22 1157 <Electronically signed by Dalia MONTGOMERY> Cosigner Signature (if applicable): CC: ~ Signed [facility] Work Phone: 1(754) 306-840008-15-2023 History and physical note Author Dalia Lazo [facility] November 06, 2022 5:27pm Note Date/Time November 02, 2022 4: 11pm [facility] [address] [place] [address] H&P Exam - Wound Care 11/02/22 1611 MR#: [id number] Acct: [id number] Name: MIGUELANGEL MOYA Rep #:[id number] : 1950 72 From: Dalia MONTGOMERY PCP: [...] at this time (A1c in May 5.8). [facility] Medical History (Updated 11/06/22 @ 17:22 by ULISES Cui) Atherosclerotic heart disease of s[place] coronary artery without angina pectoris Chronic diastolic [...] AdvReac Severe Fast HR Verified 06/24/20 08:12 Lodsebq-FQS-RdY Reductase AdvReac Intermediate Muscle Verified 06/24/20 08:12 Inhibitor aches [Hmvnpjm-Lva-Iis Reductase Inhibitor] Family History (Reviewed 04/21/20 @ 08:19 by Judith Lo UNIVERSAL GRINDER SET UP OPERATOR, UNIVERSAL GRINDER SET UP OPERATOR-C) Other Family history of CVA Family history of hyperlipidemia Family history of hypertension Surgical History (Updated 05/25/20 @ 09:[address] Curt Barton, DO) Coronary angioplasty status History of left heart catheterization (LHC) (~12/29/19) History of tonsillectomy and adenoidectomy History of vasectomy Presence of coronary angioplasty implant and graft (~06/2007) Social History (Updated 04/21/20 @ 09:24 by Judith Lo UNIVERSAL GRINDER SET UP OPERATOR, UNIVERSAL GRINDER SET UP OPERATOR-C) Smoking Status: Never smoker alcohol intake: current [...] Start: 11/02/22 10:00 Freq: Status: Active Protocol: VERONICA.REID Activity Type Activity Date Activity User E-sign Co-sign Detail Recorded Client Recorded Date Recorded By Document 11/02/22 10:00 APOLLO [id number] 11/02/22 10:11 APOLLO 11/02/22 10:00 - Today's [...] Bottom <Entered> (a) Communication Assessment Preferred language Lebanese Purchasing Manager Required No Able to Read Yes Able [...] Patient Yes List Device(s) with Patient cane Culture/Scientology/Metal Base Blocker Cultural/Scientology Needs that may affect No Treatment Plan Would you allow our hospital composite technician to No meet you for the purpose of spiritual/ emotional support? Metal Base Blocker to contact place of pentecostal No Teaching: Wound Center [facility] Orientation/ Contacting Physician -Person Taught Patient,Family -Teaching Method Discussion, Demonstration -Response to teaching Return demonstration, Verbalize understanding (a) 1 - positive 2 - positive 3 - positive 4 - positive WC - Nurse 1 - General Ulcer Measurement Start: 11/02/22 10:00 Freq: Status: Active Protocol: Activity Type Activity Date Activity User E-sign Co-sign Detail Recorded Client Recorded Date Recorded By Document 11/02/22 10:00 APOLLO [id number] 11/02/22 10:11 JF 11/02/22 10:00 Wound Center [...] Date Recorded By Document 11/02/22 10:57 MW [id number] 11/02/22 10:59 MW Edit Result 11/02/22 10:57 MW (1) [id number] 11/02/22 11:01 MW (1) 1-right medial leg [...] Charges/Coding Visit Charges Office Visits / Consults: 85830 OV L3 New Procedures Integumentary 111xxx-113xx: 67931 Lenore subq tissue 20 sq cm/< Assessment/Plan [...] weeks as I am out next week. 11/06/22 0116 <Electronically signed by Dalia MONTGOMERY> Cosigner Signature (if applicable): CC: ~ Signed [facility] Work Phone: 1(664) 576-469308-03-2023 Miscellaneous Notes* Telephone Encounter - Agnieszka Khanna [...] note, and demographics to be sent to [phone]. Faxed office notes and demographics as requested. Please place referral and fax referral. Erkia Garcia RN documented in this encounterPromedica [facility] Hospital08-03-2023 Miscellaneous Notes* Telephone Encounter - Carlene Goldberg [...] doxycycline first, then keflex was complete on -, for leg wound. Reports wound is looking [...] AB's? Please advise . documented in this encounterPromedica [facility] Hospital07-28-2023 Miscellaneous Notes* Telephone Encounter - Agnieszka Khanna LPN - 10/19/2022 8:41 AM EDT Completed and faxed to number on the form. * Telephone Encounter - Agnieszka Khanna LPN - 10/18/2022 2:01 PM EDT Pt's spouse brought in [facility] for their son to be off work for appt with pt to drive pt to his appts. This was completed last year. To pcp to review. Fax to number on [employer] business card which is [phone] attn Otilia Odonnell. documented in this encounterPromedica Memorial Hospital07-20-2023 Miscellaneous Notes* Telephone Encounter - Roxanna Dennis [...] Asking pcp to please advise . Leo Florentinooster. documented in this encounterPromedica Memorial Hospital07-10-2023 Miscellaneous Notes* Telephone Encounter - Josefina Qureshi [...] Thank you. Josefina [place] documented in this encounterPromedica Memorial Hospital07-10-2023 History of Present illness Narrative* Krishna Reynolds MD - 10/01/2022 3:39 PM EDT This note was created using [employer]. Subjective Miguelangel Moya is a 72 year [...] Neuropathy, With Long-Term Current Use of Insulin ([facility]) Class 3 Severe Obesity With Body Mass Index (Bmi) of 45.0 to 49.9 in Adult ([facility]) Other Hyperlipidemia Essential Hypertension Coronary Artery Disease of [place] Artery of [place] Heart With Stable Angina Pectoris ([facility]) Persistent Atrial Fibrillation ([facility]) Memory Disturbance Bph (Benign Prostatic Hyperplasia) History of Partial Amputation of Toe ([facility]) Robin (Dyspnea On Exertion) Statin Intolerance Chronic Diastolic Congestive Heart Failure (Hcc) Valvular Heart Disease Non-Seasonal Allergic Rhinitis Uncontrolled Diabetes Mellitus Hypertensive Heart Disease With Chronic Diastolic Congestive Heart Failure ([facility]) Current Outpatient Medications Medication Sig [...] mouth once daily. flash glucose scanning reader (1MindSTYLE MERCY 2 READER) Test blood sugar(s) 4-5 [...] Dx: Type2 DM - Uncontrolled Insulin: Yes BIOTIN ORAL Take 1 tablet by mouth once daily. Fish Oil-Bogota-3 Fatty Acids (FISH OIL OMEGA 3-6-9) 300-1,000 [...] vaccine - ICD9: V04.89, ICD10: Z23 - PFIZER-BIONTCreative Allies COVID-19 BIVALENT VACCINE, AGE 12+ YR 6. Essential hypertension - ICD9: 401.9, ICD10: I10 - Controlled - Decrease amlodipine to 1/2 tablet daily due to edema. - METOPROLOL TARTRATE 50 MG TABLET - AMLODIPINE 5 MG TABLET Krishna Reynolds MD documented in this encounterPromedica Memorial Hospital07-10-2023 Instructions* Patient Instructions* Krishna Reynolds MD - 10/01/2022 3:09 PM EDT SEE MEDICATION LIST FOR CHANGES. CALL FOR REFILLS WHEN NEEDED. documented in this encounterPromedica Memorial Hospital06-21-2023 Miscellaneous Notes* Telephone Encounter - Roxanna Dennis LPN - 09/12/2022 1:21 PM EDT Called [facility]'s pharmacy, Patient has active RX for Plavix with refills remaining. Pharmacy will get ready for Patient to pickup. Roxanna Dennis LPN * [facility] 12[facility]59 PM EDT Patient has been identified by name and date of : Yes Requested Prescriptions Pending Prescriptions Disp Refills clopidogrel (PLAVIX) 75 mg tablet 90 tablet 3 Sig: Take 1 tablet by mouth once daily. RX INSTRUCTIONS: Patient aware RX will be sent to pharmacy. No need to notify patient. [facility] documented in this encounterPromedica Memorial Hospital06-05-2023 History of Present illness Narrative* Flavia Tadeo RN - 08/27/2022 10:47 AM EDT 22 ga angio started to right a/c. Good blood return. Flushed easily with NSS. Dressing applied. Definity (Lot # [id number] exp 07/24/23 ) mixed per protocol. 2 cc administered throughout procedure. 8cc discarded. Pt tolerated procedure well. No C/o's, Hep lock D/c'd and dressing applied. Patient discharged ambulatory with Contracting Analyst. Flavia Tadeo RN documented in this encounterPromedica Memorial Hospital05-15-2023 Miscellaneous Notes* Telephone Encounter - Chaz Alfaro [...] and advise. Jess Xavier documented in this encounterPromedica Memorial Hospital05-02-2023 Miscellaneous Notes* Telephone Encounter - Chaz Alfaro [...] problem list. Please fax note to: FAX: [phone] Attn Immanuel Kate. Please advise pt when this has been done. Pt asking to have a message left on his phone. Josefina Qureshi LPN documented in this encounterPromedica Memorial Hospital03-10-2023 History of Present illness Narrative* Krishna Reynolds MD - 06/01/2022 9:31 AM EST This note was created using [employer]. Subjective Miguelangel Moya is a 71 year [...] Neuropathy, With Long-Term Current Use of Insulin ([facility]) Class 3 Severe Obesity With Body Mass Index (Bmi) of 45.0 to 49.9 in Adult ([facility]) Other Hyperlipidemia Essential Hypertension Coronary Artery Disease of [place] Artery of [place] Heart With Stable Angina Pectoris ([facility]) Persistent Atrial Fibrillation ([facility]) Memory Disturbance Bph (Benign Prostatic Hyperplasia) History of Partial Amputation of Toe ([facility]) Dyspnea On Exertion Statin Intolerance Chronic Diastolic Congestive Heart Failure ([facility]) Valvular Heart Disease Non-Seasonal Allergic Rhinitis Uncontrolled Diabetes Mellitus Hypertensive Heart Disease With Chronic Diastolic Congestive Heart Failure ([facility]) Social History Tobacco Use Smoking status: Never Smokeless tobacco: Current Types: Chew Vaping Use Vaping Use: Never used Substance Use Topics Alcohol use: Yes Comment: Rare Drug use: Never Current Outpatient Medications Medication Sig flash glucose scanning reader (1MindSTYLE MERCY 2 READER) Test blood sugar(s) 4-5 [...] 1 tablet by mouth once daily. Fish Oil-Bogota-3 Fatty Acids (FISH OIL OMEGA 3-6-9) 300-1,000 mg CpDR Take 3000 mg daily. Lancets (ONE TOUCH ULTRASOFT LANCETS) [facility] lancets twice daily. Use as instructed ( [...] Discontinue DOXAZOSIN. 5. 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) - ICD9: 414.01, 413.9, ICD10: I25.118 Stable. - CLOPIDOGREL 75 MG TABLET 6. Other hyperlipidemia - ICD9: 272.4, ICD10: E78.49 Discussed medication dosage, usage, goals of therapy, and side effects. Printed RX. He will check pricing and coverage. - NEXLIZET 180 MG-10 MG TABLET - LIPID PANEL BASIC Krishna Reynolds MD documented in this encounterCleveland [id number] History of Present illness Narrative* Nhung Longo [...] 10, 2022 7:35 AM documented in this encounterPromedica Memorial Hospital12-22-2022 History of Present illness Narrative* Regulo Lamas RN - 03/15/2022 3:45 PM EST DIABETES SELF-MANAGEMENT EDUCATION AND SUPPORT Location: [place] Type of visit: In person individual Types of DSMES: Initial/Comprehensive (add to or update ADA spreadsheet) PATIENT'S MAIN CONCERN TODAY: Samson Libre2 Support person present for education today: [...] Race/Ethnic Origin: White/ Does your culture or tenriism require any of the following: No cultural/christian practices affecting DM Do you have problems with: Walking 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 Fish Oil-Bogota-3 Fatty Acids (FISH OIL OMEGA 3-6-9) 300-1,000 [...] TIME: 3:47 PM PAGER: documented in this encounterCleveland [id number] Miscellaneous Notes* Telephone Encounter - Guillermina [facility] - 02/05/2022 10:46 AM EST Miguelangel Moya is calling Krishna Reynolds MD today to request an order for diabetic foot wear from [employer], in [place]. Please advise patient when order has been faxed. Patient has been identified by name and birthdate. Duration of symptoms: N/A Person calling: self Call patient at: on wifes cell [phone] (cell) Was an appointment scheduled: No Closing statement: Symptom Call: Thank you for calling [facility], your call is very important. A nurse will call in approximately 2-4 hours during business hours. If this is an emergency, please contact 911. Guillermina [facility] documented in this encounterPromedica Memorial Hospital11-07-2022 Miscellaneous Notes* Telephone Encounter - Stacey Shepard [...] to him as he takes them to [facility]. Please advise and mail lab orders. Thank you. documented in this encounterCleveland [id number] History of Present illness Narrative* Leila Older, 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 - 01/26/2022 8:25 AM EDT Medicare Yearly [...] cath, L heart LEFT HEART CATH,PERCUTANEOUS 12/29/2019 [facility] TONSILLECTOMY PRIMARY/SECONDARY <AGE 12 1957 Tonsillectomy TRANSCATH STENT INIT VESSEL,CESAR 11/10/2007 Transcath stent init vessel cesar, DILIA VASECTOMY UNI/BI SPX W/POSTOP SEMEN EXAMS 1977 ALLERGIES: Altace [Ramipril], Bactrim [Sulfamethoxazole-Trimethoprim], Diovan [Valsartan], Metolazone, Propofol, Ramipril, Seasonal Allergies, and Mwhusiu-Kaa-Cqc Reductase Inhibitors Medications reviewed: Yes FAMILY HISTORY [...] likes to exercise by going to [facility] two times a week. He watches his diet for sodium, low fat and low cholesterol most of the time. List of current specialists seen: Microfilm Clerk- Dr. Stover Repair Technician- Dr. Aleman Renal- Dr. Hebert Podiat[facility] (Dr. Heredia) End of Live Planning discussed [...] TABLET Leila Russell APRN.DANA documented in this encounterPromedica Memorial Hospital11-03-2022 Miscellaneous Notes* Telephone Encounter - Flavia Tadeo RN - 01/25/2022 11:54 AM EDT Spoke to Samantha Pharm D. at [facility] to clarify order. She will fill rx for pt. Flavia Tadeo RN * Telephone Encounter - Flavia Tadeo RN - 01/23/2022 1:33 PM EDT After reviewing office visit notes from 01/15/[address] Stover, it looks like pt. is taking Lasix 80 mg BID, and takes a third pill occasionally PRN for leg swelling. Please advise and send new order to [facility]. Thank you. Flavia Tadeo RN * Telephone Encounter - Brittney Bass LPN - 01/22/2022 3:56 PM EDT Marcia with [facility] called regarding order for Lasix. They need clarification on the order: 1 tablet by mouth twice daily. Three times per day as directed PRN. New order can be sent. Brittney Bass LPN documented in this encounterPromedica Memorial Hospital10-24-2022 History of Present illness Narrative* Regulo Stover MD - 01/15/2022 3:20 PM EDT Images from the original note were not included. [facility] SECTION OF REGIONAL CARDIOLOGY Cardiology ([facility]) [address] [id number] OUTPATIENT VISIT DATE 01/15/2022 PRIMARY CARE PHYSICIAN: Krishna Reynolds [address] [place] [address] HISTORY OF PRESENT ILLNESS: Mr. Moya is [...] injury (DANIELA) with acute tubular necrosis (ATN) ([facility]) 11/06/2019 CAD (coronary artery [...] cath, L heart LEFT HEART CATH,PERCUTANEOUS 12/29/2019 [facility] TONSILLECTOMY PRIMARY/SECONDARY <AGE 12 1957 Tonsillectomy [...] agitation Ramipril Seasonal Allergies Other: See Comments Elsuwxm-Jwr-Mws Red* Other: See Comments Muscle aches MEDICATIONS: [...] 1 tablet by mouth once daily. Fish Oil-Bogota-3 Fatty Acids (FISH OIL OMEGA 3-6-9) 300-1,000 [...] LAD have mild diffuse disease. Echocardiogram 12/10/2019 [place]: Technically difficult study Grossly normal LV function [...] AND RECOMMENDATIONS: 1. 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) - [...] COMPLETE Regulo Stover MD documented in this encounterPromedica Memorial Hospital08-22-2022 History of Present illness Narrative* Arabella Heredia, DPM - 11/13/2021 10:16 AM EDT Images [...] 1 tablet by mouth once daily. Fish Oil-Bogota-3 Fatty Acids (FISH OIL OMEGA 3-6-9) 300-1,000 [...] agitation Ramipril Seasonal Allergies Other: See Comments Eywblxk-Lxf-Uyq Red* Other: See Comments Muscle aches OBJECTIVE: [...] prn Arabella Heredia DPM documented in this encounterPromedica Memorial Hospital07-27-2022 Miscellaneous Notes* Telephone Encounter - Ivy Morse LPN - 10/18/2021 9:03 AM EDT Patient's request for medication is as follows: Pending Prescriptions Disp Refills DOXAZOSIN 1 MG TABLET 90 tablet 3 Sig: TAKE ONE TABLET BY MOUTH EVERY DAY AT BEDTIME TINA: Yes Last seen 02/27/2021. Next visit 01/15/2022. Prescription(s) as above. Please process accordingly. Ivy Morse LPN documented in this encounterPromedica Memorial Hospital07-26-2022 Miscellaneous Notes* Telephone Encounter - Agnieszka Khanna LPN - 10/17/2021 3:13 PM EDT Mailed original and copied for scan documents. * Telephone Encounter - Carlene Goldberg RN - 10/17/2021 2:41 PM EDT (Jessica) calls in to request that original [facility] paperwork be mailed to home address at: [address] [phone]. Carlene Goldberg RN * Telephone Encounter - Agnieszka Khanna LPN - 10/17/2021 9:49 AM EDT Faxed to number on the business card that was sent with the form. Fax number is [phone]. Message left to pts spouse. This will be in pts medical records in scanned documents. * Telephone Encounter - Krishna Reynolds MD - 10/16/2021 6:08 PM EDT Done. * Telephone Encounter - Agnieszka Khanna LPN - 10/12/2021 1:16 PM EDT Pt's spouse brought in [facility] for pts son to be completed. He transports [facility] out of town whenneeded. This has bee completed previously 09/22/2020. documented in this encounterPromedica Memorial Hospital07-20-2022 Miscellaneous Notes* Telephone Encounter - Nhung Bradley MA - 10/11/2021 1:38 PM EDT Received form [facility] request for Unifine Pentips, copied last OV and placed in providers in box for review and signature. Once signed will fax to them. Nhung Bradley MA documented in this encounterPromedica Memorial Hospital06-17-2022 History of Present illness Narrative* Krishna Reynolds MD - 09/08/2021 10:00 AM EDT This note was created using [employer]. 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) - ICD9: 414.01, 413.9, ICD10: I25.118 Stable. 5. Persistent atrial fibrillation (HCC) - ICD9: 427.31, ICD10: I48.19 Stable. 6. Need for vaccination - ICD9: V05.9, ICD10: Z23 - PNEUMOCOCCAL VACCINE (PREVNAR 20) Krishna Reynolds MD documented in this encounterPromedica Memorial Hospital05-16-2022 Miscellaneous Notes* Telephone Encounter - Talya Juarez LPN - 08/07/2021 10:03 AM EDT Patient's pharmacy requesting new refill. Pending Prescriptions Disp Refills CLOPIDOGREL 75 MG TABLET 90 tablet 3 Sig: TAKE ONE TABLET BY MOUTH EVERY DAY TINA: Yes He will see Dr Stover on 01-15-2022. Talya uJarez LPN documented in this encounterPromedica Memorial Hospital05-16-2022 Miscellaneous Notes* Telephone Encounter - Talya Juarez [...] 01-13-2022. Talya Juarez LPN documented in this [facility]04-28-2022 Miscellaneous Notes* Telephone Encounter - Elsa Marin [...] rx sent to pharmacy. documented in this encounterPromedica Memorial Hospital04-18-2022 Miscellaneous Notes* Telephone Encounter - Josefina Qureshi [...] advise. Josefina Qureshi LPN documented in this encounterPromedica Memorial Hospital04-18-2022 Miscellaneous Notes* Telephone Encounter - Krishna Reynolds [...] Provider: KRISHNA REYNOLDS MD documented in this encounterPromedica Memorial Hospital12-22-2021 History of Past illness Narrative* Problem Noted [...] of this encounter (statuses as of 06/07/2023) [facility] of Past illness Narrative* Problem Noted [...] of this encounter (statuses as of 06/13/2023) [facility]12[facility] of Past illness Narrative* Problem Noted [...] of this encounter (statuses as of 06/27/2023) [facility]12[facility] of Past illness Narrative* Problem Noted [...] of this encounter (statuses as of 07/05/2023) [facility] of Past illness Narrative* Problem [...] of this encounter (statuses as of 07/10/2021) [facility] of Past illness Narrative* Problem [...] of this encounter (statuses as of 07/10/2021) [facility] of Past illness Narrative* Problem [...] of this encounter (statuses as of 07/21/2021) [facility] of Past illness Narrative* Problem [...] of this encounter (statuses as of 08/07/2021) [facility] of Past illness Narrative* Problem [...] of this encounter (statuses as of 08/07/2021) [facility] of Past illness Narrative* Problem [...] of this encounter (statuses as of 09/09/2021) [facility] Past illness Narrative* Problem [...] of this encounter (statuses as of 10/11/2021) [facility] Past illness Narrative* Problem [...] of this encounter (statuses as of 10/17/2021) [facility] of Past illness Narrative* Problem [...] of this encounter (statuses as of 10/18/2021) [facility] of Past illness Narrative* Problem [...] of this encounter (statuses as of 11/13/2021) [facility] of Past illness Narrative* Problem [...] of this encounter (statuses as of 01/15/2022) [facility] Past [facility] Narrative* Problem [...] of this encounter (statuses as of 01/25/2022) [facility] Narrative* Problem [...] of this encounter (statuses as of 01/26/2022) [facility] Past [facility] Narrative* Problem [...] of this encounter (statuses as of 01/29/2022) [facility] Narrative* Problem [...] of this encounter (statuses as of 02/06/2022) [facility] Narrative* Problem [...] of this encounter (statuses as of 03/16/2022) [facility] Narrative* Problem [...] of this encounter (statuses as of 04/10/2022) [facility] Narrative* Problem [...] of this encounter (statuses as of 06/01/2022) [facility] Narrative* Problem [...] of this encounter (statuses as of 07/24/2022) [facility] Narrative* Problem [...] of this encounter (statuses as of 08/07/2022) [facility] Narrative* Problem [...] of this encounter (statuses as of 08/27/2022) [facility] Narrative* Problem [...] of this encounter (statuses as of 09/12/2022) [facility] Narrative* Problem [...] of this encounter (statuses as of 10/02/2022) [facility] Narrative* Problem [...] of this encounter (statuses as of 10/03/2022) [facility] Narrative* Problem [...] of this encounter (statuses as of 10/11/2022) [facility] Narrative* Problem [...] of this encounter (statuses as of 10/19/2022) [facility] Narrative* Problem [...] of this encounter (statuses as of 10/25/2022) [facility] Narrative* Problem [...] of this encounter (statuses as of 10/26/2022) [facility] Narrative* Problem [...] of this encounter (statuses as of 11/20/2022) [facility] Narrative* Problem [...] of this encounter (statuses as of 12/06/2022) [facility] Narrative* Problem [...] of this encounter (statuses as of 12/07/2022) [facility] Narrative* Problem [...] of this encounter (statuses as of 01/14/2023) [facility] Narrative* Problem [...] of this encounter (statuses as of 01/16/2023) [facility] Narrative* Problem [...] of this encounter (statuses as of 03/15/2023) [facility] Narrative* Problem [...] of this encounter (statuses as of 05/23/2023) [facility] of Present illness Narrative* Katy Lynch CT - 09/05/2020 1:45 PM EDT Radiology Service [...] 05, 2020 1:39 PM documented in this encounterPromedica Memorial Hospital04-09-2021 NoteHNO ID: [id number] Author: Michelle Carver (Rn) SHALA Mulligan Service: Care Management Author Type: Registered Nurse Type: Care Mgt Initial Assessment Filed: 07/01/2020 7:31 PM Note Text: CARE MANAGEMENT: ASSESSMENT AND DISCHARGE PLAN SERVICE DATE: July 01, 2020 SERVICE TIME: 7:00 PRIMARY CARE PHYSICIAN: Krishna Reynolds MD ADMISSION STATUS: Ambulatory Surgery Needs Prior to Discharge: Ready for Discharge MEDICAL: MEDICARE A AND B 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 Last discharge within 30 days: No Advance Directive: Current Advance Directive: Health Care Power of Paralegals;Living Will In Chart: Yes Up To Date [...] use) Has the Patient Been in a Long-Term Facility in the Past 30 days?: No SOCIAL: Living Arrangements: Home Lives With: Spouse Financial Resources: Retired Primary Contact: Extended Emergency Contact Information Primary Emergency Contact: Jessica Moya Address: [address] [place] [id number] [place] Relation: Spouse Supportive Patient Contact:: Yes Contact Resources: Family Family Name/Phone: Jessica Moya (Spouse) [phone] (Home Phone) Caregiver AssessmentCaregiver is ready, willing [...] Mostly I feel financially burdened by my hnm-gt-[id number] expenses for my prescription medication:: 0 - Disagree Mostly Risk Score: 0 Patient is categorized as: Low risk < 2 Are you interested in bedside delivery of your medications? No Is Patient Psychosocially Complex?: No ASSESSMENT AND PLAN: Medical Needs: Medical Needs: Two or more chronic diseases;Diabetes Psychosocial Needs: Psychosocial Needs: None FREEDOM OF CHOICE EXPLAINED: [place] of Choice Given: No Reason Not Given: No placements necessary POTENTIAL TRANSITION PLANS Home Patient in [facility] after cardiac catherization. He lives with his a RN. 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 He has problems with cost of medicine when in [facility]. Insulin cost 300.00. He has walkers and wheelchair but does not need them. + PCP Anticipate d/c weekend no needs. SIGNATURE: Michelle Mulligan RN PATIENT NAME: Miguelangel Moya DATE: July 01, 2020 TIME: 7:28 PM PAGER/CONTACT #: [phone] NoteHNO ID: [id number] Author: Regulo Stover Service: ? Author Type: [...] intervention in the next 1 to 2 weeks.[facility]03-30-2021 History of Present illness Narrative* Radha Mars (Nash), Nash - 06/21/2020 12:50 PM EDT Radiology Service [...] 21, 2020 12:48 PM documented in this encounterPromedica Memorial Hospital01-26-2021 NoteHNO ID: [id number] Author: Nash Giron (Rt) Service: Radiology Author Type: Power Barker Type: Progress Notes Filed: 04/19/2020 2:10 PM [...] PERIPHERAL IV DATA: Inpatient - refer to [facility] documentation RADIOLOGY DEPARTMENT: CT; Exam(s) Completed: CTA Abdomen Pelvis and GATED CTA CHEST SIGNATURE: RT [place] PATIENT NAME: Miguelangel Moya DATE: April 19, 2020 TIME: 2:09 [facility]01-07-2021 NoteHNO ID: [id number] Author: Regulo Stover Service: ? Author Type: Physician Type: Progress Notes Filed: 03/31/2020 9:37 AM Note Text: [facility] SECTION OF [facility]IONAL CARDIOLOGY [facility] Cardiology [place] ([facility] ([facility]) [address] [address] OUTPATIENT VISIT DATE 03/26/2020 PRIMARY CARE PHYSICIAN: Krishna Reynolds MD [address] [place] [address] CHIEF COMPLAINT: Patient with complex coronary artery [...] and occluded RCA with collateral filling via [id number] collaterals. 2D echo shows ejection fraction of [...] of right foot (HCC) (more content not included)...[facility]11-24-2020 NoteHNO ID: [id number] Author: Ryan (Zipper Ironer Dana) DANA Akins Service: ? Author Type: Nurse Practitioner Type: Progress Notes Filed: 02/16/2020 9:52 AM Note Text: MULTI DISCIPLINARY HIGH RISK AVR CARDIAC TEAM Members present: Dr. Gardner, Dr. Renee, Dr. Allen, Dr. Stover, Dr. Elizabeth, Dr. Barclay, Jennifer Lee THERAPEUTIC RIDING INSTRUCTOR, AUTO SPECIALTY SERVICES MANAGER, Gretchen THERAPEUTIC RIDING INSTRUCTOR, AUTO SPECIALTY SERVICES MANAGER, Eileen Rueda APRN, AUTO SPECIALTY SERVICES MANAGER. Presenting Physician: PATIENT NAME: Miguelangel Moya DATE: [...] eval and discussion. REFERRAL PLACED. Ryan Akins APRN.DANASouthern [facility] NoteHNO ID: [id number] Author: Curt Ariel Gardner Service: ? Author Type: Physician Type: [...] and occluded RCA with collateral filling via [id number] collaterals. 2D echo shows ejection fraction of [...] L heart - LEFT HEART CATH,PERCUTANEOUS 12/29/2019 [facility] - REMOVAL ADENOIDS,PRIMARY,<12 Y/O 1960 Adenoidectomy - REMOVAL OF TONSILS,<12 Y/O 1957 Tonsillectomy - TRANSCATH STENT INIT VESSEL,PERCUT Transcath stent init vessel cesar, DILIA - VASECTOMY 1977 FAMILY HISTORY Problem [...] mouth once antoine (more content not included)... [facility]11-18-2020 NoteHNO ID: [id number] Author: Ryan (Perez Cortez) DANA Akins Service: ? Author Type: Nurse Practitioner Type: Progress Notes Filed: 02/10/2020 5:46 PM Note Text: [facility] Adult Cardiac Surgery Database Version 4.20 RISK SCORES Procedure: Isolated CAB CALCULATE Risk of Mortality: 1.988% Renal Failure: 6.516% Permanent Stroke: 1.011% Prolonged Ventilation: 12.330% DSW Infection: 1.180% Reoperation: 2.029% Morbidity or Mortality: 19.300% Short Length of Stay: 21.858% Long Length of Stay: 13.101% Ryan Akins APRN.CNPSouthern Maine Health CareEvaluation note* Diagnosis Type 2 diabetes mellitus with diabetic neuropathy, with long-term current use of insulin (HCC) [facility]* Diagnosis Type 2 diabetes mellitus with diabetic neuropathy, with long-term current use of insulin (HCC) documented in this encounter [facility] noteNo assessment information availableWOhio[facility] Work Phone: Evaluation note* Diagnosis Coronary artery disease involving soka[place] coronary artery of soka[place]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 (HCC) documented in this encounter [facility] note* Diagnosis Type 2 diabetes mellitus with diabetic neuropathy, with long-term current use of insulin (HCC)- Primary Essential hypertension Unspecified essential hypertension Chronic diastolic congestive heart failure (HCC) Chronic diastolic heart failure 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) Persistent atrial fibrillation (HCC) Atrial fibrillation Need for vaccination Need for prophylactic vaccination and inoculation against unspecified single disease [facility]* Diagnosis Essential hypertension Unspecified essential hypertension [facility]* Diagnosis Corns and callosities- Primary DM (diabetes mellitus), type 2 with neurological complications (HCC) Type II or unspecified type diabetes mellitus with neurological manifestations, not stated as uncontrolled [facility]* Diagnosis 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)- Primary [...] ischemic heart disease [facility] Diagnosis Medicare annual wellness visit, subsequent- Primary Routine general medical examination at a [facility] facility Type 2 diabetes mellitus with diabetic neuropathy, with long-term current use of insulin (HCC) Balance problem Other symptoms involving nervous and musculoskeletal systems Gait abnormality Abnormality of gait Chronic diastolic congestive heart failure (HCC) Chronic diastolic heart failure [facility] Diagnosis Type 2 diabetes mellitus with diabetic neuropathy, with long-term current use of insulin (HCC)- Primary Other hyperlipidemia Essential hypertension Unspecified essential hypertension [facility] Diagnosis Type 2 diabetes mellitus with diabetic neuropathy, with long-term current use of insulin ([facility])- Primary [facility]* Diagnosis Statin intolerance- Primary Other drug allergy Type 2 diabetes mellitus with diabetic neuropathy, with long-term current use of insulin (HCC) Chronic diastolic congestive heart failure (HCC) Chronic diastolic heart failure Essential hypertension Unspecified essential hypertension 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) Other hyperlipidemia [facility] Diagnosis Coronary artery disease involving [place] heart without angina pectoris, unspecified vessel or lesion type [facility]* Diagnosis Chronic diastolic congestive heart failure (HCC) Chronic diastolic heart failure ROBIN (dyspnea on exertion) Other dyspnea and respiratory abnormality [facility]* Diagnosis 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) [facility] Diagnosis Ulcer of right leg, limited to breakdown of skin (HCC)- Primary Venous (peripheral) insufficiency Unspecified venous (peripheral) insufficiency Chronic diastolic congestive heart failure (HCC) Chronic diastolic heart failure Type 2 diabetes mellitus with diabetic neuropathy, with long-term current use of insulin (HCC) Need for COVID-19 vaccine Essential hypertension Unspecified essential hypertension [facility] Diagnosis Ulcer of right leg, limited to breakdown of skin ([facility])- Primary [facility] Diagnosis Corns and callosities- Primary DM (diabetes mellitus), type 2 with neurological complications ([facility]) Type II or unspecified type diabetes mellitus with neurological manifestations, not stated as uncontrolled [facility] Diagnosis Onset Date Resolution Status Lower extremity edema acute Ulcer of right lower extremity acute Type 2 diabetes mellitus chr [facility] Work Phone: Evaluation note* Diagnosis Onset Date Resolution Status Lower extremity edema acute Ulcer of right lower extremity acute Type 2 diabetes mellitus chr onic Lower extremity edema acute Ulcer of right lower extremity acute Type 2 diabetes mellitus chr [facility] Work Phone: Evaluation note* Diagnosis Type 2 diabetes mellitus with diabetic neuropathy, with long-term current use of insulin ([facility]) [facility] Diagnosis Type 2 diabetes mellitus with diabetic neuropathy, with long-term current use of insulin ([facility])- Primary Essential hypertension Unspecified essential hypertension Other hyperlipidemia Venous (peripheral) insufficiency Unspecified venous (peripheral) insufficiency Chronic diastolic congestive heart failure ([facility]) Chronic diastolic heart failure Class 3 severe obesity due to excess calories with serious comorbidity and body mass index (BMI) of 45.0 to 49.9 in adult ([facility]) Screening for colon cancer Special screening for malignant neoplasms, colon Encounter for immunization Need for other specified prophylactic vaccination against single bacterial disease [facility] Diagnosis Onset Date Resolution Status Lower extremity edema acute Ulcer of right lower extremity acute Type 2 diabetes mellitus chr onic Lower extremity edema acute Ulcer of right lower extremity acute Type 2 diabetes mellitus chr onic Lower extremity edema acute [facility] Work Phone: Evaluation note* Diagnosis 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 ([facility]) Other hyperlipidemia Statin intolerance Other drug allergy Atherosclerosis of aorta ([facility]) Atherosclerosis of aorta [facility] Diagnosis Onset Date Resolution Status Lower [...] of both lower extremities with inflammation acute [id number] acute Venous stasis ulcer of right lower leg with edema of right lower leg acute Atherosclerotic heart diseas e of soka[place] coronary artery without angina pectoris chronic CAD (coronary artery disease) chronic Chronic venous insufficiency chronic Essential hypertension chron ic GERD (gastroesophageal reflux disease) chronic HLD (hyperlipidemia) chronic Left atrial enlargement documentation clerk citlalli Morbid obesity due to excess calories chronic Paroxysmal atrial fibrillation chronic Presence of stent in coronary artery June, chronic Pure hypercholesterolemia [facility] Type 2 diabetes mellitus [facility] Work Phone: Evaluation note* Diagnosis Onset Date Resolution Status Lower extremity edema acute Ulcer of right lower extremity acute Type 2 diabetes mellitus chr on Lower extremity edema acute Balance disorder acute Edema of right lower leg acu te History of coronary artery stent placement acute History of decompression of ulnar nerve acute History of tonsillectomy acu te JAMES (obstructive sleep apnea) acute Right leg swelling acute Tobacco abuse acute Tobacco abuse counseling acu te 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 [id number] acute Venous stasis ulcer of right lower leg with edema of right lower leg acute Atherosclerotic heart diseas e of [place] coronary artery without angina pectoris chronic CAD (coronary artery disease) chronic Chronic venous insufficiency chronic Essential hypertension chron ic GERD (gastroesophageal reflux disease) chronic HLD (hyperlipidemia) chronic Left atrial enlargement documentation clerk citlalli Morbid obesity due to excess calories chronic Paroxysmal atrial fibrillation chronic Presence of stent in coronary artery June, chronic Pure hypercholesterolemia ch ronic Type 2 diabetes mellitus chr [facility] Balance disorder acute Edema of right lower leg acu te History of coronary artery stent placement acute History of decompression of ulnar nerve acute History of tonsillectomy acu te JAMES (obstructive sleep apnea) acute Right leg swelling acute Tobacco abuse acute Tobacco abuse counseling acu te 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 [id number] acute Venous stasis ulcer of right lower leg with edema of right lower leg acute Atherosclerotic heart diseas e of [place] coronary artery without angina pectoris chronic CAD (coronary artery disease) chronic Chronic venous insufficiency chronic Essential hypertension chron ic GERD (gastroesophageal reflux disease) chronic HLD (hyperlipidemia) chronic Left atrial enlargement documentation clerk citlalli Morbid obesity due to excess calories chronic Paroxysmal atrial fibrillation chronic Presence of stent in coronary artery June, chronic [facility]mia [facility] Type 2 diabetes mellitus [facility] Work Phone: Evaluation note* Diagnosis Type 2 diabetes mellitus with diabetic neuropathy, with long-term current use of insulin (HCC)- Primary Other hyperlipidemia [facility] Diagnosis Onset Date Resolution Status Lower [...] of both lower extremities with inflammation acute [id number] acute Venous stasis ulcer of right lower leg with edema of right lower leg acute Atherosclerotic heart diseas e of [place] coronary artery without angina pectoris chronic CAD (coronary artery disease) chronic Chronic venous insufficiency chronic Essential hypertension chron ic GERD (gastroesophageal reflux disease) chronic HLD (hyperlipidemia) chronic Left atrial enlargement documentation clerk citlalli Morbid obesity due to excess calories chronic Paroxysmal atrial fibrillation chronic Presence of stent in coronary artery June, chronic Pure [facility]cholesterolemia [facility] Type 2 diabetes mellitus chr onic Balance disorder acute Edema of right lower leg acu te History of coronary artery stent placement acute History of decompression of ulnar nerve acute History of tonsillectomy acu te JAMES (obstructive sleep apnea) acute Right leg swelling acute Tobacco abuse acute Tobacco abuse counseling acu te 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 [id number] acute Venous stasis ulcer of right lower leg with edema of right lower leg acute Atherosclerotic heart diseas e of [place] coronary artery without angina pectoris chronic CAD (coronary artery disease) chronic Chronic venous insufficiency chronic Essential hypertension chron ic GERD (gastroesophageal reflux disease) chronic HLD (hyperlipidemia) chronic Left atrial enlargement documentation clerk citlalli Morbid obesity due to excess calories chronic Paroxysmal atrial fibrillation chronic Presence of stent in coronary artery June, chronic Pure hypercholesterolemia [facility] Type 2 diabetes mellitus [facility] Work Phone: Evaluation note* Diagnosis Onset Date [...] of both lower extremities with inflammation acute [id number] acute Venous stasis ulcer of right lower leg with edema of right lower leg acute Atherosclerotic heart diseas e of [place] coronary artery without angina pectoris chronic CAD (coronary artery disease) chronic Chronic venous insufficiency chronic Essential hypertension chron ic GERD (gastroesophageal reflux disease) chronic HLD (hyperlipidemia) chronic Left atrial enlargement documentation clerk citlalli Morbid obesity due to excess calories [...] of both lower extremities with inflammation acute [id number] acute Venous stasis ulcer of right lower leg with edema of right lower leg acute Atherosclerotic heart diseas e of [place] coronary artery without angina pectoris chronic CAD (coronary artery disease) chronic Chronic venous insufficiency chronic Essential hypertension chron ic GERD (gastroesophageal reflux disease) chronic HLD (hyperlipidemia) chronic Left atrial enlargement documentation clerk citlalli Morbid obesity due to excess calories chronic Paroxysmal atrial fibrillation chronic Presence of stent in coronary artery June, chronic Pure hypercholesterolemia ch ronic Type 2 diabetes mellitus chr onic [facility] Work Phone: Evaluation note* Diagnosis Medicare annual wellness visit, subsequent- Primary Routine general medical examination at a health care facility 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) Other hyperlipidemia Statin intolerance Other drug allergy Atherosclerosis of aorta (HCC) Atherosclerosis of aorta Essential hypertension Unspecified essential hypertension Type 2 diabetes mellitus with diabetic neuropathy, with long-term current use of insulin (HCC) Chronic diastolic congestive heart failure (HCC) Chronic diastolic heart failure Persistent atrial fibrillation (HCC) Atrial fibrillation [facility]* Diagnosis 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) Chronic diastolic congestive heart failure (HCC) Chronic diastolic heart failure Essential hypertension Unspecified essential hypertension [facility] Diagnosis Type 2 diabetes mellitus with diabetic neuropathy, with long-term current use of insulin (HCC)- Primary [facility]* Diagnosis Hydrocele, acquired- Primary Other hyperlipidemia [facility] Diagnosis Hydrocele, acquired [facility]* Diagnosis Onset Date Resolution Status Balance disorder acute Edema of right lower leg acu te History of coronary artery stent placement acute History of decompression of ulnar nerve acute History of tonsillectomy acu te JAMES (obstructive sleep apnea) acute Right leg swelling acute Tobacco abuse acute Tobacco abuse counseling acu te 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 [id number] acute Venous stasis ulcer of right lower leg with edema of right lower leg acute Atherosclerotic heart diseas e of [place] coronary artery without angina pectoris chronic CAD (coronary artery disease) chronic Chronic venous insufficiency chronic Essential hypertension chron ic GERD (gastroesophageal reflux disease) chronic HLD (hyperlipidemia) chronic Left atrial enlargement documentation clerk citlalli Morbid obesity due to excess calories chronic Paroxysmal atrial fibrillation chronic Presence of stent in coronary artery June, chronic Pure hypercholesterolemia ch ronic Type 2 diabetes mellitus chr [facility] Work Phone: Evaluation note* Diagnosis Hydrocele, acquired- Primary Testicular cyst Other specified disorder of male genital organs [facility]* Diagnosis Elbow mass, right- Primary Essential hypertension Unspecified essential hypertension [facility]* Diagnosis Right elbow pain- Primary Pain in joint, upper arm documented [facility]* Diagnosis Right elbow pain Pain in joint, upper arm [facility] Diagnosis Elbow mass, right [facility]* Diagnosis Type 2 diabetes mellitus with diabetic neuropathy, with long-term current use of insulin (HCC) Chronic diastolic congestive heart failure (HCC) Chronic diastolic heart failure 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) Essential [...] (HCC) Morbid obesity 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)- Primary Chronic diastolic congestive heart failure (HCC) Chronic diastolic heart failure Persistent atrial fibrillation (HCC) Atrial fibrillation Essential hypertension Unspecified essential hypertension Other hyperlipidemia Class 3 severe obesity due to excess calories with serious comorbidity and body mass index (BMI) of 45.0 to 49.9 in adult ([facility]) Statin intolerance Other drug allergy Atherosclerosis of aorta ([facility]) Atherosclerosis of aorta documented in this encounter [facility] note* Diagnosis Type 2 diabetes mellitus with diabetic neuropathy, with long-term current use of insulin ([facility]) Chronic diastolic congestive heart failure ([facility]) Chronic diastolic heart failure 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 ([facility]) Essential hypertension Unspecified essential hypertension Other hyperlipidemia Persistent atrial fibrillation ([facility]) Atrial fibrillation Gastroesophageal reflux disease, unspecified whether esophagitis present Dyspnea on exertion Other dyspnea and respiratory abnormality Valvular heart disease Endocarditis, valve unspecified, unspecified cause Benign prostatic hyperplasia, unspecified whether lower urinary tract symptoms present Obesity, Class III, BMI 40-49.9 (morbid obesity) ([facility]) Morbid obesity Type 2 diabetes mellitus with diabetic neuropathy, with long-term current use of insulin ([facility]) documented in this encounter [facility] note* Diagnosis Type 2 diabetes mellitus with diabetic neuropathy, with long-term current use of insulin ([facility]) Chronic diastolic congestive heart failure ([facility]) Chronic diastolic heart failure 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 ([facility]) Essential hypertension Unspecified essential hypertension Other hyperlipidemia Persistent atrial fibrillation ([facility]) Atrial fibrillation Gastroesophageal reflux disease, unspecified whether esophagitis present Dyspnea on exertion Other dyspnea and respiratory abnormality Valvular heart disease Endocarditis, valve unspecified, unspecified cause Benign prostatic hyperplasia, unspecified whether lower urinary tract symptoms present Obesity, Class III, BMI 40-49.9 (morbid obesity) ([facility]) Morbid obesity DM (diabetes mellitus), type 2 with neurological complications ([facility])- Primary Type II or unspecified type diabetes mellitus with neurological manifestations, not stated as uncontrolled Corns and callosities documented in this encounter [facility] note* Diagnosis Type 2 diabetes mellitus with diabetic neuropathy, with long-term current use of insulin ([facility]) Chronic diastolic congestive heart failure ([facility]) Chronic diastolic heart failure 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 ([facility]) Essential hypertension Unspecified essential hypertension Other hyperlipidemia Persistent atrial fibrillation ([facility]) Atrial fibrillation Gastroesophageal reflux disease, unspecified whether [...] insulin (HCC)- Primary Coronary artery disease involving [place] heart without angina pectoris, unspecified vessel or lesion type Chronic diastolic congestive heart failure (HCC) Chronic diastolic heart failure Essential hypertension Unspecified essential hypertension Screening for depression Encounter for screening examination for other mental health and behavioral disorders documented in this encounter [facility] note* Diagnosis Type 2 diabetes mellitus with diabetic neuropathy, with long-term current use of insulin (HCC) Chronic diastolic congestive heart failure (HCC) Chronic diastolic heart failure 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) Essential [...] Pain Generalized pain documented in this encounter [facility] note* Diagnosis Chronic diastolic congestive heart failure (HCC) Chronic diastolic heart failure Type 2 diabetes mellitus with diabetic neuropathy, with long-term current use of insulin (HCC) Chronic diastolic congestive heart failure (HCC) Chronic diastolic heart failure 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) Essential [...] (HCC) Morbid obesity documented in this encounter [facility] note* Diagnosis Type 2 diabetes mellitus with diabetic neuropathy, with long-term current use of insulin (HCC) Chronic diastolic congestive heart failure (HCC) Chronic diastolic heart failure 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) Essential [...] neuropathy, with long-term current use of insulin ([facility])- Primary documented in this encounter [facility] note* Diagnosis Type 2 diabetes mellitus with diabetic neuropathy, with long-term current use of insulin (HCC) Chronic diastolic congestive heart failure (HCC) Chronic diastolic heart failure 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) Essential [...] neuropathy, with long-term current use of insulin ([facility]) documented in this encounter [facility] note* Diagnosis Type 2 diabetes mellitus with diabetic neuropathy, with long-term current use of insulin (HCC) Chronic diastolic congestive heart failure (HCC) Chronic diastolic heart failure 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) Essential [...] Unspecified essential hypertension 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) documented in this encounter [facility] note* Diagnosis Type 2 diabetes mellitus with diabetic neuropathy, with long-term current use of insulin (HCC) Chronic diastolic congestive heart failure (HCC) Chronic diastolic heart failure 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) Essential [...] (diabetes mellitus), type 2 with neurological complications ([facility])- Primary Type II or unspecified type diabetes mellitus with neurological manifestations, not stated as uncontrolled Corns and callosities [facility] Diagnosis Type 2 diabetes mellitus with diabetic neuropathy, with long-term current use of insulin (HCC) Chronic diastolic congestive heart failure (HCC) Chronic diastolic heart failure 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) Essential hypertension Unspecified essential hypertension Other hyperlipidemia Persistent atrial fibrillation (HCC) Atrial fibrillation Gastroesophageal reflux disease, unspecified whether esophagitis present Dyspnea on exertion Other dyspnea and respiratory abnormality Valvular heart disease Endocarditis, valve unspecified, unspecified cause Benign prostatic hyperplasia, unspecified whether lower urinary tract symptoms present Obesity, Class III, BMI 40-49.9 (morbid obesity) (HCC) Morbid obesity Medicare annual wellness visit, subsequent- Primary Routine general medical examination at a health care facility Encounter for immunization Need for other specified prophylactic vaccination against single bacterial disease Chronic diastolic congestive heart failure (HCC) Chronic diastolic heart failure Atrial fibrillation, unspecified type (HCC) Class 3 severe obesity due to excess calories with serious comorbidity and body mass index (BMI) of 45.0 to 49.9 in adult (HCC) Type 2 diabetes mellitus with diabetic neuropathy, with long-term current use of insulin (HCC) Essential hypertension Unspecified essential hypertension 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) Persistent atrial fibrillation (HCC) Atrial fibrillation Venous (peripheral) insufficiency Unspecified venous (peripheral) insufficiency Other hyperlipidemia [facility] Diagnosis Type 2 diabetes mellitus with diabetic neuropathy, with long-term current use of insulin (HCC) Chronic diastolic congestive heart failure (HCC) Chronic diastolic heart failure 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 Essential hypertension [...] obesity) Morbid obesity 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- Primary Chronic diastolic congestive heart failure (HCC) Chronic diastolic heart failure Atherosclerosis of aorta Persistent atrial fibrillation (HCC) Atrial fibrillation Essential hypertension Unspecified essential hypertension Other hyperlipidemia Statin intolerance Other drug allergy ROBIN (dyspnea on exertion) Other dyspnea and respiratory abnormality documented in this encounter [facility] note* Diagnosis Type 2 diabetes mellitus with diabetic neuropathy, with long-term current use of insulin ([facility]) Chronic diastolic congestive heart failure (HCC) Chronic diastolic heart failure 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 Essential hypertension [...] Unspecified essential hypertension documented in this encounter [facility] note* Diagnosis Type 2 diabetes mellitus with diabetic neuropathy, with long-term current use of insulin ([facility]) Chronic diastolic congestive heart failure (HCC) Chronic diastolic heart failure 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 Essential hypertension Unspecified essential hypertension Other hyperlipidemia Persistent atrial fibrillation (HCC) Atrial fibrillation Gastroesophageal reflux disease, unspecified whether esophagitis present Dyspnea on exertion Other dyspnea and respiratory abnormality Valvular heart disease Endocarditis, valve unspecified, unspecified cause Benign prostatic hyperplasia, unspecified whether lower urinary tract symptoms present Obesity, Class III, BMI 40-49.9 (morbid obesity) ([facility]) Morbid obesity 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 ROBIN (dyspnea on exertion) Other dyspnea and respiratory abnormality documented in this encounter [facility] note* Diagnosis Type 2 diabetes mellitus with diabetic neuropathy, with long-term current use of insulin ([facility]) Chronic diastolic congestive heart failure (HCC) Chronic diastolic heart failure 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 Essential hypertension Unspecified essential hypertension Other hyperlipidemia Persistent atrial fibrillation (HCC) Atrial fibrillation Gastroesophageal reflux disease, unspecified whether esophagitis present Dyspnea on exertion Other dyspnea and respiratory abnormality Valvular heart disease Endocarditis, valve unspecified, unspecified cause Benign prostatic hyperplasia, unspecified whether lower urinary tract symptoms present Obesity, Class III, BMI 40-49.9 (morbid obesity) ([facility]) Morbid obesity 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 ROBIN (dyspnea on exertion) Other dyspnea and respiratory abnormality [facility] Diagnosis Type 2 diabetes mellitus with diabetic neuropathy, with long-term current use of insulin (HCC) Chronic diastolic congestive heart failure (HCC) Chronic diastolic heart failure 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 Essential hypertension [...] of insulin (HCC) documented [facility]* Diagnosis Type 2 diabetes mellitus with diabetic neuropathy, with long-term current use of insulin (HCC) Chronic diastolic congestive heart failure (HCC) Chronic diastolic heart failure 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 Essential hypertension [...] with neurological manifestations, not stated as uncontrolled [place] or callus Corns and callosities documented in this encounter [facility] for referral (narrative)* Outpatient Procedure (Routine) - Closed Specialty Diagnoses / Procedures Referred By Contac t Referred To [facility] Diagnoses Screening for ischemic heart disease Procedures ECG COMPLETE ECG ROUTINE ECG W/LEAST 12 LDS W/I&R Regulo Stover MD [address] [place] [address] [facility] [address] [place] [address] Referral ID Status Reason Start Date Expiration Date V isits Requested Visits Authorized [id number] Closed Auto-Generate d Referral 01/09/2022 01/09/2023 1 1 [facility] for referral (narrative)* Diagnostic Procedure Only (Routine) - Authorized Specialty Diagnoses / Procedures Referred By Contac t Referred To Contact US IMAGING Diagnoses Hydrocele, acquired Procedures US SCROTUM AND CONTENTS US SCROTUM & CONTENTS Krishna Reynolds MD [address] [place] [address] [place] [address] Referral ID Status Reason Start Date Expiration Date Visits Requested Visits Authorized [id number] Authorized Auto-Generat ed Referral 07/04/2023 08/02/2024 1 1 [facility] for referral (narrative)* Diagnostic Procedure Only (Routine) - Pending Review Specialty Diagnoses / Procedures Referred By Aranza t Referred To Contact XR IMAGING Diagnoses Right elbow pain Procedures XR ELBOW GENERAL 2V AP/LAT RIGHT RADEX ELBOW 2 VIEWS Kaila Jimenez PA-C [address] [place] [address] Xr Imaging [facility] Referral ID Status Reason Start Date Expiration Date Visits Requested Visits Authorized [id number] Pending Review Auto-Generat ed Referral 09/11/2023 10/10/2024 1 1 [facility] for referral (narrative)No reason for referral information [facility] Work Phone: Reason for visit Narrative* Outpatient Procedure (Routine) - Closed Specialty Diagnoses / Procedures Referred By Contac t Referred To Contact [facility] Diagnoses Chronic diastolic congestive heart failure (HCC) ROBIN (dyspnea on exertion) Procedures ECHO ECHO TTHRC R-T 2D W/WOM-MODE COMPL SPEC&COLR D Regulo Stover MD [address] [place] [address] [facility] [address] [place] [address] Referral ID Status Reason Start Date Expiration Date V isits Requested Visits Authorized [id number] Closed Auto-Generate d Referral 08/13/2022 08/13/2023 1 1 [facility] for visit Narrative* Diagnostic Procedure Only (Routine) - Closed Specialty Diagnoses / Procedures Referred By Contac t Referred To Contact XR IMAGING Diagnoses Right elbow pain Procedures XR ELBOW GENERAL 2V AP/LAT RIGHT RADEX ELBOW 2 VIEWS Kaila Jimenez PA-C [address] [place] [address] [place] [address] Referral ID Status Reason Start Date Expiration Date V isits Requested Visits Authorized [id number] Closed Auto-Generate d Referral 09/11/2023 10/10/2024 1 1 [facility] for visit Narrative* Diagnostic Procedure Only (Routine) - Closed Specialty Diagnoses / Procedures Referred By Aranza t Referred To Contact [facility]LECULAR [facility]AL [facility] Diagnoses 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 ROBIN (dyspnea on exertion) Procedures NM CARDIAC PERF STRESS/PHARM MYOCARDIAL SPECT MULTIPLE STUDIES Regulo Stover MD [address] [address] Phone: tel: fax: Molecular Imaging [address] [place] [id number] Phone: tel: Referral ID Status Reason Start Date Expiration Date V isits Requested Visits Authorized [id number] Closed Auto-Generate d Referral 08/10/2024 09/09/2025 1 1 [facility] Summary Purpose Family History No Family History Records Found Relationship Condition Age at Onset Recorded Date/T tyra Not Specified Family history of ce rebrovascular accident (CVA) Unknown Family history of hypertension Unknown Family history of hyperlipidemia Unknown Advance Directives No Advanced Directives Records FoundDocuments on File Type Date 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 Advance Directive(s) 2020 2:35 PM Advance Directive(s) 04/19/2020 11:53 AM Advance Directive(s) 06/04/2013 2:29 PM Advance Directive Response Recorded Date/ Time Advance Directives Yes December 29, 2019 7:19am Living Will Yes August 04, 2020 1 0:33am Power of Paralegals Yes August 04, 2020 10:33am Documents on File Type Date 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 Yes August 04, 2020 10:33am Living Will Yes February 22 1:23am Do you have a Healthcare Power of Paralegals? Yes February 23, 2024 1:23am Advance Directives Yes December 29, 2019 7:19am Advance Directive Response Recorded Date/ Time Living Will Yes February 22 1:23am Do you have a Healthcare Power of Paralegals? Yes February 23, 2024 1:23am Advance Directives Yes December 29, 2019 7:19am Advance Directive Response Recorded Date/ Time Advance Directives Yes December 29, 2019 7:19am Chief Complaint and Reason for Visit Chief Complaint CR PHASE III MA INTENANCE SELF-PAY PHASE III MAINTENANCE SELF-PAY PHASE III MAINTENANCE SELF-PAY PHASE III MAINTENANCE SELF-PAY Chief Complaint PHASE III MA INTENANCE SELF-PAY PHASE III MAINTENANCE SELF-PAY PHASE III MAINTENANCE SELF-PAY PHASE III MAINTENANCE SELF-PAY PHASE III MAINTENANCE SELF-PAY Chief Complaint CR PHASE III MA INTENANCE SELF-PAY CR PHASE III MAINTENANCE SELF-PAY 2022 PH III Maintenance - Self Pay 2022 PH III Maintenance - Self Pay Chief Complaint CR PHASE III MA INTENANCE SELF-PAY CR PHASE III MAINTENANCE SELF-PAY 2022 PH III Maintenance - Self Pay 2022 PH III Maintenance - Self Pay copy results to Radha Kraus and Jolanta 2022 PH III Maintenance - Self Pay Chief Complaint CR PHASE III MA INTENANCE SELF-PAY 2022 PH III Maintenance - Self Pay 2022 PH III Maintenance - Self Pay copy results to Radha Kraus and Jolanta 2023 PH III Maintenance - Self Pay Chief Complaint 2022 PH III Maintena nce - Self Pay copy results to Radha Kraus and Jolanta 2022 PH III Maintenance - Self Pay [...] Pay Chief Complaint copy results to Radha Kraus and Jolanta 2022 PH III Maintenance - Self Pay [...] veins of both lower extremities with inflammation [id number] Venous stasis ulcer of right lower leg with edema of right lower leg Atherosclerotic heart disease of [place] coronary artery without angina pectoris CAD (coronary [...] veins of both lower extremities with inflammation [id number] Venous stasis ulcer of right lower leg with edema of right lower leg Atherosclerotic heart disease of [place] coronary artery without angina pectoris CAD (coronary [...] veins of both lower extremities with inflammation [id number] Venous stasis ulcer of right lower leg with edema of right lower leg Atherosclerotic heart disease of [place] coronary artery without angina pectoris CAD (coronary [...] veins of both lower extremities with inflammation [id number] Venous stasis ulcer of right lower leg with edema of right lower leg Atherosclerotic heart disease of [place] coronary artery without angina pectoris CAD (coronary [...] veins of both lower extremities with inflammation [id number] Venous stasis ulcer of right lower leg with edema of right lower leg Atherosclerotic heart disease of [place] coronary artery without angina pectoris CAD (coronary [...] veins of both lower extremities with inflammation [id number] Venous stasis ulcer of right lower leg with edema of right lower leg Atherosclerotic heart disease of [place] coronary artery without angina pectoris CAD (coronary [...] veins of both lower extremities with inflammation [id number] Venous stasis ulcer of right lower leg with edema of right lower leg Atherosclerotic heart disease of [place] coronary artery without angina pectoris CAD (coronary [...] veins of both lower extremities with inflammation [id number] Venous stasis ulcer of right lower leg with edema of right lower leg Atherosclerotic heart disease of [place] coronary artery without angina pectoris CAD (coronary [...] veins of both lower extremities with inflammation [id number] Venous stasis ulcer of right lower leg with edema of right lower leg Atherosclerotic heart disease of [place] coronary artery without angina pectoris CAD (coronary [...] veins of both lower extremities with inflammation [id number] Venous stasis ulcer of right lower leg with edema of right lower leg Atherosclerotic heart disease of [place] coronary artery without angina pectoris CAD (coronary [...] 8:00am 2024 PH3 maintenance-self pay October 8:00am Chief Complaint Admit Date 2024 PH3 maintenance-self pay September 17, 2024 8:00am 2024 PH3 maintenance-self pay October 22, 2024 8:00am 2024 PH3 maintenance-self pay October 8:00am 2024 PH3 maintenance-self pay December 22, 2024 8:00am Reason for Referral Specialty Diagnoses / Procedures Referred By Aranza escobar Referred To Contact [facility] Diagnoses Balance problem Gait abnormality Procedures CONSULT TO PHYSICAL THERAPY PHYSICAL THERAPY EVALUATION HIGH COMPLEX 45 MINS 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, 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, 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 [address] [place] [address] [facility] [place] [address] [place] [address] Referral ID Status Reason Start Date Expiration Date Visits Requested Visits Authorized [id number] Authorized PCP Requested Referral Auto-Generate d Referral 01/26/2022 01/26/2023 99 99 Specialty Diagnoses / Procedures Referred By Aranza escobar Referred To Contact Diagnoses Type 2 diabetes mellitus with diabetic neuropathy, with long-term current use of insulin (HCC) Procedures CONSULT TO DIABETES EDUCATION OFFICE/OUTPATIENT [facility] MDM 60-74 MINUTES 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, 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, 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 [address] [place] [address] Referral ID Status Reason Start Date Expiration Date Visits Requested Visits Authorized [id number] Authorized PCP Requested Referral 01/26/2022 01/26/2023 1 1 Specialty Diagnoses / Procedures Referred By Contac t Referred To Contact Urology Diagnoses Hydrocele, acquired Testicular cyst Procedures CONSULT TO UROLOGY Krishna Reynolds MD [address] [place] [address] Referral ID Status Reason Start Date Expiration Date Visits Requested Visits Authorized [id number] Ref Not Required PCP Requested Referral 07/26/2023 07/25/2024 1 1 Specialty Diagnoses / Procedures Referred By Contac t Referred To Contact Orthopedics Diagnoses Elbow mass, right Procedures CONSULT TO ORTHOPAEDICS OFFICE/OUTPATIENT [facility] MDM 60 MINUTES Krishna Reynolds MD [address] [place] [address] Referral ID Status Reason Start Date Expiration Date Visits Requested Visits Authorized [id number] Authorized PCP Requested Referral 09/10/2023 09/09/2024 1 1 Additional Source Comments (unrecognized sect ion and content) No Status Records FoundNo Status Records FoundNo Status Records FoundNo Status Records Found INFORMATION SOURCE (unrecogn ized section and content) DATE CREATED AUTHOR 07/29/2020 [facility] DATE CREATED AUTHOR AUTHOR'S ORGANIZ ATION 09/04/2020 [facility] DATE CREATED AUTHOR AUTHOR'S ORGANIZ ATION 01/16/2025 [facility] DATE CREATED AUTHOR AUTHOR'S ORGANIZ ATION 01/16/2025 [facility] Source Comments (unrecognize d section and content) In the event this informatio n is protected by the Federal Confidentiality of Alcohol and Drug Abuse Patient Records regulations: The Federal rules restrict any use of the information to criminally investigate or prosecute any alcohol or drug abuse patient.[facility] the event this information is protected by the Federal Confidentiality of Alcohol and Drug Abuse Patient Records regulations: The Federal rules restrict any use of the information to criminally investigate or prosecute any alcohol or drug abuse patient.[facility] the event this information is protected by the Federal Confidentiality of Alcohol and Drug Abuse Patient Records regulations: The Federal rules restrict any use of the information to criminally investigate or prosecute any alcohol or drug abuse patient.[facility] the event this information is protected by the Federal Confidentiality of Alcohol and Drug Abuse Patient Records regulations: The Federal rules restrict any use of the information to criminally investigate or prosecute any alcohol or drug abuse patient.[facility] the event this information is protected by the Federal Confidentiality of Alcohol and Drug Abuse Patient Records regulations: The Federal rules restrict any use of the information to criminally investigate or prosecute any alcohol or drug abuse patient.[facility] Hospital[facility] the event this information is protected by the Federal Confidentiality of Alcohol and Drug Abuse Patient Records regulations: The Federal rules restrict any use of the information to criminally investigate or prosecute any alcohol or drug abuse patient.[facility] the event this information is protected by the Federal Confidentiality of Alcohol and Drug Abuse Patient Records regulations: The Federal rules restrict any use of the information to criminally investigate or prosecute any alcohol or drug abuse patient.[facility] the event this information is protected by the Federal Confidentiality of Alcohol and Drug Abuse Patient Records regulations: The Federal rules restrict any use of the information to criminally investigate or prosecute any alcohol or drug abuse patient.[facility] the event this information is protected by the Federal Confidentiality of Alcohol and Drug Abuse Patient Records regulations: The Federal rules restrict any use of the information to criminally investigate or prosecute any alcohol or drug abuse patient.[facility] Hospital[facility] the event this information is protected by the Federal Confidentiality of Alcohol and Drug Abuse Patient Records regulations: The Federal rules restrict any use of the information to criminally investigate or prosecute any alcohol or drug abuse patient.[facility] Hospital[facility] the event this information is protected by the Federal Confidentiality of Alcohol and Drug Abuse Patient Records regulations: The Federal rules restrict any use of the information to criminally investigate or prosecute any alcohol or drug abuse patient.[facility] Hospital[facility] the event this information is protected by the Federal Confidentiality of Alcohol and Drug Abuse Patient Records regulations: The Federal rules restrict any use of the information to criminally investigate or prosecute any alcohol or drug abuse patient.[facility] HospitalIn the event this information is protected by the Federal Confidentiality of Alcohol and Drug Abuse Patient Records regulations: The Federal rules restrict any use of the information to criminally investigate or prosecute any alcohol or drug abuse patient.[facility] HospitalIn the event this information is protected by the Federal Confidentiality of Alcohol and Drug Abuse Patient Records regulations: The Federal rules restrict any use of the information to criminally investigate or prosecute any alcohol or drug abuse patient.[facility] HospitalIn the event this information is protected by the Federal Confidentiality of Alcohol and Drug Abuse Patient Records regulations: The Federal rules restrict any use of the information to criminally investigate or prosecute any alcohol or drug abuse patient.[facility] HospitalIn the event this information is protected by the Federal Confidentiality of Alcohol and Drug Abuse Patient Records regulations: The Federal rules restrict any use of the information to criminally investigate or prosecute any alcohol or drug abuse patient.[facility] HospitalIn the event this information is protected by the Federal Confidentiality of Alcohol and Drug Abuse Patient Records regulations: The Federal rules restrict any use of the information to criminally investigate or prosecute any alcohol or drug abuse patient.[facility] HospitalIn the event this information is protected by the Federal Confidentiality of Alcohol and Drug Abuse Patient Records regulations: The Federal rules restrict any use of the information to criminally investigate or prosecute any alcohol or drug abuse patient.[facility] HospitalIn the event this information is protected by the Federal Confidentiality of Alcohol and Drug Abuse Patient Records regulations: The Federal rules restrict any use of the information to criminally investigate or prosecute any alcohol or drug abuse patient.[facility] HospitalIn the event this information is protected by the Federal Confidentiality of Alcohol and Drug Abuse Patient Records regulations: The Federal rules restrict any use of the information to criminally investigate or prosecute any alcohol or drug abuse patient.[facility] HospitalIn the event this information is protected by the Federal Confidentiality of Alcohol and Drug Abuse Patient Records regulations: The Federal rules restrict any use of the information to criminally investigate or prosecute any alcohol or drug abuse patient.[facility] HospitalIn the event this information is protected by the Federal Confidentiality of Alcohol and Drug Abuse Patient Records regulations: The Federal rules restrict any use of the information to criminally investigate or prosecute any alcohol or drug abuse patient.[facility] HospitalIn the event this information is protected by the Federal Confidentiality of Alcohol and Drug Abuse Patient Records regulations: The Federal rules restrict any use of the information to criminally investigate or prosecute any alcohol or drug abuse patient.[facility] HospitalIn the event this information is protected by the Federal Confidentiality of Alcohol and Drug Abuse Patient Records regulations: The Federal rules restrict any use of the information to criminally investigate or prosecute any alcohol or drug abuse patient.[facility] HospitalIn the event this information is protected by the Federal Confidentiality of Alcohol and Drug Abuse Patient Records regulations: The Federal rules restrict any use of the information to criminally investigate or prosecute any alcohol or drug abuse patient.[facility] HospitalIn the event this information is protected by the Federal Confidentiality of Alcohol and Drug Abuse Patient Records regulations: The Federal rules restrict any use of the information to criminally investigate or prosecute any alcohol or drug abuse patient.[facility] HospitalIn the event this information is protected by the Federal Confidentiality of Alcohol and Drug Abuse Patient Records regulations: The Federal rules restrict any use of the information to criminally investigate or prosecute any alcohol or drug abuse patient.[facility] HospitalIn the event this information is protected by the Federal Confidentiality of Alcohol and Drug Abuse Patient Records regulations: The Federal rules restrict any use of the information to criminally investigate or prosecute any alcohol or drug abuse patient.[facility] HospitalIn the event this information is protected by the Federal Confidentiality of Alcohol and Drug Abuse Patient Records regulations: The Federal rules restrict any use of the information to criminally investigate or prosecute any alcohol or drug abuse patient.[facility] HospitalIn the event this information is protected by the Federal Confidentiality of Alcohol and Drug Abuse Patient Records regulations: The Federal rules restrict any use of the information to criminally investigate or prosecute any alcohol or drug abuse patient.[facility] HospitalIn the event this information is protected by the Federal Confidentiality of Alcohol and Drug Abuse Patient Records regulations: The Federal rules restrict any use of the information to criminally investigate or prosecute any alcohol or drug abuse patient.[facility] HospitalIn the event this information is protected by the Federal Confidentiality of Alcohol and Drug Abuse Patient Records regulations: The Federal rules restrict any use of the information to criminally investigate or prosecute any alcohol or drug abuse patient.[facility] HospitalIn the event this information is protected by the Federal Confidentiality of Alcohol and Drug Abuse Patient Records regulations: The Federal rules restrict any use of the information to criminally investigate or prosecute any alcohol or drug abuse patient.[facility] HospitalIn the event this information is protected by the Federal Confidentiality of Alcohol and Drug Abuse Patient Records regulations: The Federal rules restrict any use of the information to criminally investigate or prosecute any alcohol or drug abuse patient.[facility] HospitalIn the event this information is protected by the Federal Confidentiality of Alcohol and Drug Abuse Patient Records regulations: The Federal rules restrict any use of the information to criminally investigate or prosecute any alcohol or drug abuse patient.[facility] HospitalIn the event this information is protected by the Federal Confidentiality of Alcohol and Drug Abuse Patient Records regulations: The Federal rules restrict any use of the information to criminally investigate or prosecute any alcohol or drug abuse patient.[facility] HospitalIn the event this information is protected by the Federal Confidentiality of Alcohol and Drug Abuse Patient Records regulations: The Federal rules restrict any use of the information to criminally investigate or prosecute any alcohol or drug abuse patient.[facility] HospitalIn the event this information is protected by the Federal Confidentiality of Alcohol and Drug Abuse Patient Records regulations: The Federal rules restrict any use of the information to criminally investigate or prosecute any alcohol or drug abuse patient.[facility] HospitalIn the event this information is protected by the Federal Confidentiality of Alcohol and Drug Abuse Patient Records regulations: The Federal rules restrict any use of the information to criminally investigate or prosecute any alcohol or drug abuse patient.[facility] HospitalIn the event this information is protected by the Federal Confidentiality of Alcohol and Drug Abuse Patient Records regulations: The Federal rules restrict any use of the information to criminally investigate or prosecute any alcohol or drug abuse patient.[facility] HospitalIn the event this information is protected by the Federal Confidentiality of Alcohol and Drug Abuse Patient Records regulations: The Federal rules restrict any use of the information to criminally investigate or prosecute any alcohol or drug abuse patient.[facility] HospitalIn the event this information is protected by the Federal Confidentiality of Alcohol and Drug Abuse Patient Records regulations: The Federal rules restrict any use of the information to criminally investigate or prosecute any alcohol or drug abuse patient.[facility] HospitalIn the event this information is protected by the Federal Confidentiality of Alcohol and Drug Abuse Patient Records regulations: The Federal rules restrict any use of the information to criminally investigate or prosecute any alcohol or drug abuse patient.[facility] HospitalIn the event this information is protected by the Federal Confidentiality of Alcohol and Drug Abuse Patient Records regulations: The Federal rules restrict any use of the information to criminally investigate or prosecute any alcohol or drug abuse patient.[facility] HospitalIn the event this information is protected by the Federal Confidentiality of Alcohol and Drug Abuse Patient Records regulations: The Federal rules restrict any use of the information to criminally investigate or prosecute any alcohol or drug abuse patient.[facility] HospitalIn the event this information is protected by the Federal Confidentiality of Alcohol and Drug Abuse Patient Records regulations: The Federal rules restrict any use of the information to criminally investigate or prosecute any alcohol or drug abuse patient.[facility] HospitalIn the event this information is protected by the Federal Confidentiality of Alcohol and Drug Abuse Patient Records regulations: The Federal rules restrict any use of the information to criminally investigate or prosecute any alcohol or drug abuse patient.[facility] HospitalIn the event this information is protected by the Federal Confidentiality of Alcohol and Drug Abuse Patient Records regulations: The Federal rules restrict any use of the information to criminally investigate or prosecute any alcohol or drug abuse patient.[facility] HospitalIn the event this information is protected by the Federal Confidentiality of Alcohol and Drug Abuse Patient Records regulations: The Federal rules restrict any use of the information to criminally investigate or prosecute any alcohol or drug abuse patient.[facility] HospitalIn the event this information is protected by the Federal Confidentiality of Alcohol and Drug Abuse Patient Records regulations: The Federal rules restrict any use of the information to criminally investigate or prosecute any alcohol or drug abuse patient.[facility] HospitalIn the event this information is protected by the Federal Confidentiality of Alcohol and Drug Abuse Patient Records regulations: The Federal rules restrict any use of the information to criminally investigate or prosecute any alcohol or drug abuse patient.[facility] HospitalIn the event this information is protected by the Federal Confidentiality of Alcohol and Drug Abuse Patient Records regulations: The Federal rules restrict any use of the information to criminally investigate or prosecute any alcohol or drug abuse patient.[facility] HospitalIn the event this information is protected by the Federal Confidentiality of Alcohol and Drug Abuse Patient Records regulations: The Federal rules restrict any use of the information to criminally investigate or prosecute any alcohol or drug abuse patient.[facility] HospitalIn the event this information is protected by the Federal Confidentiality of Alcohol and Drug Abuse Patient Records regulations: The Federal rules restrict any use of the information to criminally investigate or prosecute any alcohol or drug abuse patient.[facility] HospitalIn the event this information is protected by the Federal Confidentiality of Alcohol and Drug Abuse Patient Records regulations: The Federal rules restrict any use of the information to criminally investigate or prosecute any alcohol or drug abuse patient.[facility] HospitalIn the event this information is protected by the Federal Confidentiality of Alcohol and Drug Abuse Patient Records regulations: The Federal rules restrict any use of the information to criminally investigate or prosecute any alcohol or drug abuse patient.[facility] HospitalIn the event this information is protected by the Federal Confidentiality of Alcohol and Drug Abuse Patient Records regulations: The Federal rules restrict any use of the information to criminally investigate or prosecute any alcohol or drug abuse patient.[facility] HospitalIn the event this information is protected by the Federal Confidentiality of Alcohol and Drug Abuse Patient Records regulations: The Federal rules restrict any use of the information to criminally investigate or prosecute any alcohol or drug abuse patient.[facility] HospitalIn the event this information is protected by the Federal Confidentiality of Alcohol and Drug Abuse Patient Records regulations: The Federal rules restrict any use of the information to criminally investigate or prosecute any alcohol or drug abuse patient.[facility] HospitalIn the event this information is protected by the Federal Confidentiality of Alcohol and Drug Abuse Patient Records regulations: The Federal rules restrict any use of the information to criminally investigate or prosecute any alcohol or drug abuse patient.[facility] HospitalIn the event this information is protected by the Federal Confidentiality of Alcohol and Drug Abuse Patient Records regulations: The Federal rules restrict any use of the information to criminally investigate or prosecute any alcohol or drug abuse patient.[facility] HospitalIn the event this information is protected by the Federal Confidentiality of Alcohol and Drug Abuse Patient Records regulations: The Federal rules restrict any use of the information to criminally investigate or prosecute any alcohol or drug abuse patient.[facility] HospitalIn the event this information is protected by the Federal Confidentiality of Alcohol and Drug Abuse Patient Records regulations: The Federal rules restrict any use of the information to criminally investigate or prosecute any alcohol or drug abuse patient.[facility] HospitalIn the event this information is protected by the Federal Confidentiality of Alcohol and Drug Abuse Patient Records regulations: The Federal rules restrict any use of the information to criminally investigate or prosecute any alcohol or drug abuse patient.[facility] HospitalIn the event this information is protected by the Federal Confidentiality of Alcohol and Drug Abuse Patient Records regulations: The Federal rules restrict any use of the information to criminally investigate or prosecute any alcohol or drug abuse patient.[facility] HospitalIn the event this information is protected by the Federal Confidentiality of Alcohol and Drug Abuse Patient Records regulations: The Federal rules restrict any use of the information to criminally investigate or prosecute any alcohol or drug abuse patient.[facility] HospitalIn the event this information is protected by the Federal Confidentiality of Alcohol and Drug Abuse Patient Records regulations: The Federal rules restrict any use of the information to criminally investigate or prosecute any alcohol or drug abuse patient.[facility] HospitalIn the event this information is protected by the Federal Confidentiality of Alcohol and Drug Abuse Patient Records regulations: The Federal rules restrict any use of the information to criminally investigate or prosecute any alcohol or drug abuse patient.[facility] HospitalIn the event this information is protected by the Federal Confidentiality of Alcohol and Drug Abuse Patient Records regulations: The Federal rules restrict any use of the information to criminally investigate or prosecute any alcohol or drug abuse patient.[facility] HospitalIn the event this information is protected by the Federal Confidentiality of Alcohol and Drug Abuse Patient Records regulations: The Federal rules restrict any use of the information to criminally investigate or prosecute any alcohol or drug abuse patient.[facility] HospitalIn the event this information is protected by the Federal Confidentiality of Alcohol and Drug Abuse Patient Records regulations: The Federal rules restrict any use of the information to criminally investigate or prosecute any alcohol or drug abuse patient.[facility] HospitalIn the event this information is protected by the Federal Confidentiality of Alcohol and Drug Abuse Patient Records regulations: The Federal rules restrict any use of the information to criminally investigate or prosecute any alcohol or drug abuse patient.[facility] HospitalIn the event this information is protected by the Federal Confidentiality of Alcohol and Drug Abuse Patient Records regulations: The Federal rules restrict any use of the information to criminally investigate or prosecute any alcohol or drug abuse patient.[facility] HospitalIn the event this information is protected by the Federal Confidentiality of Alcohol and Drug Abuse Patient Records regulations: The Federal rules restrict any use of the information to criminally investigate or prosecute any alcohol or drug abuse patient.[facility] HospitalIn the event this information is protected by the Federal Confidentiality of Alcohol and Drug Abuse Patient Records regulations: The Federal rules restrict any use of the information to criminally investigate or prosecute any alcohol or drug abuse patient.[facility] Reason for Visit (unrecogniz ed section [...] Date Comments Population Health Navigation Outreach 04/10/2022 [facility] Reason Comments Recheck 4 month [...] US Specialty Diagnoses / Procedures Referred By Aranza escobar Referred To Contact US IMAGING Diagnoses Hydrocele, acquired Procedures US SCROTUM AND CONTENTS US SCROTUM & CONTENTS Krishna Reynolds MD [address] [facility] [place] [address] [place] [address] Referral ID Status Reason Start Date Expiration Date V isits Requested Visits Authorized [id number] Closed Auto-Generate d Referral 07/04/2023 08/02/2024 1 1 Reason Comments Appointment Reason Comments Mass Reason Comments New Swelling Specialty Diagnoses / Procedures Referred By Aranza t Referred To Contact Orthopedics Diagnoses Elbow mass, right Procedures CONSULT TO ORTHOPAEDICS OFFICE/OUTPATIENT NEW HIGH MDM 60 MINUTES Krishna Reynolds MD [address] [place] [address] Referral ID Status Reason Start Date Expiration Date V isits Requested Visits Authorized [id number] Closed PCP Requested Referral 09/10/2023 09/09/2024 1 [...] NM Specialty Diagnoses / Procedures Referred By Aranza escobar Referred To Contact MOLECULAR & FUNCTIONAL IMAGING Diagnoses 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 ROBIN (dyspnea on exertion) Procedures NM CARDIAC PERF STRESS/PHARM MYOCARDIAL SPECT MULTIPLE STUDIES Regulo Stover MD [address] [facility] [address] [place] [address] Phone: tel: fax: Molecular Imaging [address] [place] [address] Phone: tel: Referral ID Status Reason Start Date Expiration Date V isits Requested Visits Authorized [id number] Closed Auto-Generate d Referral 08/10/2024 09/09/2025 1 [...] Care Teams (unrecognized sec tion and content) Food And Beverage Assistant Relationship Specialty Start Date End Date Krishna Reynolds MD [address] [place] [address] PCP - General 08/25/09 Son Deluna [address] [place] [address] Cardiology 02/08/20 Fabrice Wadsworth MD [address] [place] [address] Nephrology 02/10/20 Mitchel Aleman [address] [place] [address] Physician Ophthalmology 03/30/20 Gary Chandler DPM [address] [place] [phone] Referring Podiatry 08/01/20 Food And Beverage Assistant Relationship Specialty Start Date End Date Krishna Reynolds MD [address] [place] [address] PCP - General 08/25/09 Son Deluna [address] [place] [address] Cardiology 02/08/20 Fabrice Wadsworth MD [address] [place] [address] Nephrology 02/10/20 Mitchel Aleman [address] [place] [address] Physician Ophthalmology 03/30/20 Gary Chandler DPM [address] [place] [address] Referring Podiatry 08/01/20 Food And Beverage Assistant Relationship Specialty Start Date End Date Krishna Reynolds MD [address] [place] [address] PCP - General 08/25/09 Son Deluna [address] [place] [address] Cardiology 02/08/20 Fabrice Wadsworth MD [address] [place] [address] Nephrology 02/10/20 Mitchel Aleman [address] [place] [address] Physician Ophthalmology 03/30/20 Gary Chandler DPM [address] [place] [phone] 199- Referring Podiatry 08/01/20 Food And Beverage Assistant Relationship Specialty Start Date End Date Krishna Reynolds MD [address] [place] [address] PCP - General 08/25/09 Son Deluna [address] [facility] [address] [place] [address] Cardiology 02/08/20 Fabrice Wadsworth MD [address] [place] [address] Nephrology 02/10/20 Mitchel Aleman [address] [place] [address] Physician Ophthalmology 03/30/20 Gary Chandler DPM [address] [place] [address] Referring Podiatry 08/01/20 Food And Beverage Assistant Relationship Specialty Start Date End Date Krishna Reynolds MD [address] [place] [address] PCP - General 08/25/09 Son Deluna [address] [place] [address] Cardiology 02/08/20 Fabrice Wadsworth MD [address] [place] [address] Nephrology 02/10/20 Mitchel Aleman [address] [place], [place] [address] Physician Ophthalmology 03/30/20 Gary Chandler DPM [address] [place] [phone]- Referring Podiatry 08/01/20 Food And Beverage Assistant Relationship Specialty Start Date End Date Krishna Reynolds MD [address] [place] [address] PCP - General 08/25/09 Son Deluna [address] [place] [address] Cardiology 02/08/20 Fabrice Wadsworth MD [address] [place], [place] [id number]- Nephrology 02/10/20 Mitchel Aleman [address] [place] [address] Physician Ophthalmology 03/30/20 Gary Chandler DPM [address] [place] [phone]- Referring Podiatry 08/01/20 Food And Beverage Assistant Relationship Specialty Start Date End Date Krishna Reynolds MD [address] [place] [address] PCP - General 08/25/09 Son Deluna [address] [place] [address] Cardiology 02/08/20 Fabrice Wadsworth MD [address] [place], [place] [id number]- Nephrology 02/10/20 Mitchel Aleman [address] [place], [place] [address] Physician Ophthalmology 03/30/20 Gary Chandler DPM [address] [place] [phone] Referring Podiatry 08/01/20 Food And Beverage Assistant Relationship Specialty Start Date End Date Krishna Reynolds MD [address] [place] [address] PCP - General 08/25/09 Son Deluna [address] [place] [address] Cardiology 02/08/20 Fabrice Wadsworth MD [address] [place], [place] [phone]- Nephrology 02/10/20 Mitchel Aleman [address] [place] [address] Physician Ophthalmology 03/30/20 Gary Chandler DPM [address] [place] [phone] Referring Podiatry 08/01/20 Food And Beverage Assistant Relationship Specialty Start Date End Date Krishna Reynolds MD [address] [place] [address] PCP - General 08/25/09 Son Deluna [address] [place] [address] Cardiology 02/08/20 Fabrice Wadsworth MD [address] [place] [address] Nephrology 02/10/20 Mitchel Aleman [address] [place], [place] [id number] Physician Ophthalmology 03/30/20 Gary Chandler DPM [address] [place] [phone] Referring Podiatry 08/01/20 Food And Beverage Assistant Relationship Specialty Start Date End Date Krishna Reynolds MD [address] [place] [address] PCP - General 08/25/09 Son Deluna [address] [place] [address] Cardiology 02/08/20 Fabrice Wadsworth MD [address] [place], [place] [phone]- Nephrology 02/10/20 Mitchel Aleman [address] [place] [address] Physician Ophthalmology 03/30/20 Gary Chandler DPM [address] [place] [phone] Referring Podiatry 08/01/20 Team Status: Active Member [...] MD Primary Care Provider Active Leila Older UNIVERSAL GRINDER SET UP OPERATOR, UNIVERSAL GRINDER SET UP OPERATOR-C Attending Provider, Referring Provi chidi Active Dr. Wood Kraus MD Other Provider Active Regulo Stover MD Other Provider Active Food And Beverage Assistant Relationship Specialty Start Date End Date Krishna Reynolds MD [address] [place] [address] PCP - General 08/25/09 Son Deluna [address] [facility] [address] [place] [phone] Cardiology 02/08/20 Fabrice Wadsworth MD [address] [place], [place] [phone] Nephrology 02/10/20 Mitchel Aleman [address] [place] [address] Physician Ophthalmology 03/30/20 Gary Chandler DPM [address] [place] [phone] Referring Podiatry 08/01/20 Team Status: Inactive Member Role Status Dates Dr. Krishna Reynolds MD Primary Care Provider, Atten ding Provider Active Krishna MULTANI MD Referring Provider Active Food And Beverage Assistant Relationship Specialty Start Date End Date Krishna Reynolds MD [address] [place] [address] PCP - General 08/25/09 Son Deluna [address] [place] [address] Cardiology 02/08/20 Fabrice Wadsworth MD [address] [place], [place] [phone] Nephrology 02/10/20 Mitchel Aleman [address] [place] [address] Physician Ophthalmology 03/30/20 Gary Chandler DPM [address] [place] [phone] Referring Podiatry 08/01/20 Team Status: Active Member Role Status Dates Dr. Krishna Reynolds MD Primary Care Provider Active Dr. Wood Kraus MD Attending Provider Active Food And Beverage Assistant Relationship Specialty Start Date End Date Krishna Reynolds MD [address] [place] [address] PCP - General 08/25/09 Son Deluna [address] [place] [address] Cardiology 02/08/20 Fabrice Wadsworth MD [address] [place] [address] Nephrology 02/10/20 Mitchel Aleman [address] [place] [address] Physician Ophthalmology 03/30/20 Gary Chandler DPM [address] [place] [phone] Referring Podiatry 08/01/20 Team Status: Inactive Member Role Status Dates Dr. Krishna Reynolds MD Primary Care Provider Active Dr. Wood Kraus MD Attending Provider Active Food And Beverage Assistant Relationship Specialty Start Date End Date Krishna Reynolds MD [address] [place] [address] PCP - General 08/25/09 Son Deluna [address] [address] Cardiology 02/08/20 Fabrice Wadsworth MD [address] [place], [place] [phone]- Nephrology 02/10/20 Mitchel Aleman [address] [place], [place] [phone] Physician Ophthalmology 03/30/20 Gary Chandler DPM [address] [place] [phone] Referring Podiatry 08/01/20 Food And Beverage Assistant Relationship Specialty Start Date End Date Krishna Reynolds MD [address] [place] [address] PCP - General 08/25/09 Son Deluna [address] [facility] [address] [place] [address] Cardiology 02/08/20 Fabrice Wadsworth MD [address] [place], [place] [phone]- Nephrology 02/10/20 Mitchel Aleman [address] [place] [address] Physician Ophthalmology 03/30/20 Gary Chandler DPM [address] [phone] Referring Podiatry 08/01/20 Food And Beverage Assistant Relationship Specialty Start Date End Date Krishna Reynolds MD [address] [place] [address] PCP - General 08/25/09 Son Deluna [address] [address] Cardiology 02/08/20 Fabrice Wadsworth MD [address] [place], [place] [phone] Nephrology 02/10/20 Mitchel Aleman [address] [place] [address] Physician Ophthalmology 03/30/20 Gary Chandler DPM [address] [phone] Referring Podiatry 08/01/20 Food And Beverage Assistant Relationship Specialty Start Date End Date Krishna Reynolds MD [address] [place] [address] PCP - General 08/25/09 Son Deluna [address] [facility] [address] [place] [address] Cardiology 02/08/20 Fabrice Wadsworth MD [address] [place], [place] [phone]- Nephrology 02/10/20 Mitchel Aleman [address] [place] [address] Physician Ophthalmology 03/30/20 Gary Chandler DPM [address] [facility] 2 [place] [phone] Referring Podiatry 08/01/20 Food And Beverage Assistant Relationship Specialty Start Date End Date Krishna Reynolds MD [address] [place] [address] PCP - General 08/25/09 Son Deluna [address] [address] Cardiology 02/08/20 Fabrice Wadsworth MD [address] [place], [place] [phone] Nephrology 02/10/20 Mitchel Aleman [address] [place] [address] Physician Ophthalmology 03/30/20 Gary Chandler DPM [address] [place] [phone] Referring Podiatry 08/01/20 Food And Beverage Assistant Relationship Specialty Start Date End Date Krishna Reynolds MD [address] [place], [place] [address] PCP - General 08/25/09 Son Deluna [address] [place] [address]23[address] Cardiology 02/08/20 Fabrice Wadsworth MD [address] [place] [phone] Nephrology 02/10/20 Mitchel Aleman [address] [place] [address] Physician Ophthalmology 03/30/20 Gary Chandler DPM [address] [place] [address] Referring Podiatry 08/01/20 Team Status: [...] Dr. Krishna Reynolds MD Primary Care P michaela, Attending Provider, Referring Provider Active Regulo Stover MD Other Provider Active Dr. Wood Kraus MD Other Provider Active Food And Beverage Assistant Relationship Specialty Start Date End Date Krishna Reynolds MD [address] [place] [address] PCP - General 08/25/09 Son Deluna [address]61 [facility] [address]A [place] [address] Cardiology 02/08/20 Fabrice Wadsworth MD [address] [place], [place] [phone] Nephrology 02/10/20 Mitchel Aleman [address] [place] [address] Physician Ophthalmology 03/30/20 Gary Chandler DPM [address] [facility] 2 [place] [phone] Referring Podiatry 08/01/20 Team Status: Active Member Role Status Dates Dr. Krishna Reynolds MD Primary Care Provider Active Dr. Gucci Sanabria MD Attending Provider Active ULISES Hurst Referring Provider Active Food And Beverage Assistant Relationship Specialty Start Date End Date Krishna Reynolds MD [address] [place] [address] PCP - General 08/25/09 Son Deluna [address] [facility] [address] [place] [address] Cardiology 02/08/20 Fabrice Wadsworth MD [address] [place] [address] Nephrology 02/10/20 Mitchel Aleman MD [address] [place] [address] Physician Ophthalmology 03/30/20 Gary Chandler DPM [address] [facility] 2 [place] [phone] Referring Podiatry 08/01/20 Team Status: Inactive Member Role Status Dates Dr. Krishna Reynolds MD Primary Care Provider Active Dr. Wood Kraus MD Attending Provider, Referri ng Provider Active Regulo Stover MD Other Provider Active Food And Beverage Assistant Relationship Specialty Start Date End Date Krishna Reynolds MD [address] [place] [address] PCP - General 08/25/09 Son Deluna MD [address] [facility] [facility] [address] [place] [address] Cardiology 02/08/20 Fabrice Wadsworth MD [address] [place], [place] [phone]- Nephrology 02/10/20 Mitchel Aleman MD [address] [place] [address] Physician Ophthalmology 03/30/20 Gary Chandler DPM [address] [place] [phone] Referring Podiatry 08/01/20 Team Status: Active Member Role Status Dates Dr. Krishna Reynolds MD Primary Care Provider, Refer ring Provider Active Dr. Ronak Lucio MD Attending Provider Active Team Status: Inactive Member Role Status Dates Dr. Krishna Reynolds MD Primary Care Provider, Refer ring Provider Active Dr. Ronak Lucio MD Attending Provider Active Food And Beverage Assistant Relationship Specialty Start Date End Date Krishna Reynolds MD [address] [place], [place] 506551 PCP - General 08/25/09 Son Deluna MD [address] [facility] [address] [place] [address] Cardiology 02/08/20 Fabrice Wadsworth MD [address] [place] [address] Nephrology 02/10/20 Mitchel Aleman MD [address] [place] [address] Physician Ophthalmology 03/30/20 Gary Chandler DPM [address] [place] [phone] Referring Podiatry 08/01/20 Food And Beverage Assistant Relationship Specialty Start Date End Date Krishna Reynolds MD [address] [place] [address] PCP - General 08/25/09 Son Deluna MD [address] [place] [address] Cardiology 02/08/20 Fabrice Wadsworth MD [address] [place], [place] [phone]- Nephrology 02/10/20 Mitchel Aleman MD [address] [place] [address] Physician Ophthalmology 03/30/20 Gary Chandler DPM [address] [place] [phone] Referring Podiatry 08/01/20 Food And Beverage Assistant Relationship Specialty Start Date End Date Krishna Reynolds MD [address] [place] [address] PCP - General 08/25/09 Son Deluna MD [address] [place] [address] Cardiology 02/08/20 Fabrice Wadsworth MD [address] [place], [place] [phone]- Nephrology 02/10/20 Mitchel Aleman MD [address] [place], [place] [address]951 Physician Ophthalmology 03/30/20 Gary Chandler DPM [address] [place] [phone] Referring Podiatry 08/01/20 Food And Beverage Assistant Relationship Specialty Start Date End Date Krishna Reynolds MD [address] [place] [address] PCP - General 08/25/09 Son Deluna MD [address] [place] [address] Cardiology 02/08/20 Fabrice Wadsworth MD [address] [place], [place] [phone] Nephrology 02/10/20 Mitchel Aleman MD [address] [place] [address] Physician Ophthalmology 03/30/20 Gary Chandler DPM [address] [place] [phone] Referring Podiatry 08/01/20 Food And Beverage Assistant Relationship Specialty Start Date End Date Krishna Reynolds MD [address] [place] [address] PCP - General 08/25/09 Son Deluna MD [address] [place] [address] Cardiology 02/08/20 Fabrice Wadsworth MD [address] [place], [place] [phone]- Nephrology 02/10/20 Mitchel Aleman MD [address] [place] [address] Physician Ophthalmology 03/30/20 Gary Chandler DPM [address] [place] [phone] Referring Podiatry 08/01/20 Food And Beverage Assistant Relationship Specialty Start Date End Date Krishna Reynolds MD [address] [place] [address] PCP - General 08/25/09 Son Deluna MD [address] [address] Cardiology 02/08/20 Fabrice Wadsworth MD [address] [place] [phone] Nephrology 02/10/20 Mitchel Aleman MD [address] [place], [place] [address] Physician Ophthalmology 03/30/20 Gary Chandler DPM [address] [facility] 2 [place] [phone] Referring Podiatry 08/01/20 Food And Beverage Assistant Relationship Specialty Start Date End Date Krishna Reynolds MD [address] [place] [address] PCP - General 08/25/09 Son Deluna MD [address] [place] [address] Cardiology 02/08/20 Fabrice Wadsworth MD [address] [place], [place] [phone] Nephrology 02/10/20 Mitchel Aleman MD [address] [place] [address] Physician Ophthalmology 03/30/20 Gary Chandler DPM [address] [place] [phone] Referring Podiatry 08/01/20 Food And Beverage Assistant Relationship Specialty Start Date End Date Krishna Reynodls MD [address] [place] [address] PCP - General 08/25/09 Son Deluna MD [address]61 [facility] [address] [place] [address] Cardiology 02/08/20 Fabrice Wadsworth MD [address] [place] [address] Nephrology 02/10/20 Mitchel Aleman MD [address] [place] [address] Physician Ophthalmology 03/30/20 Gary Chandler DPM [address] [place] [phone] Referring Podiatry 08/01/20 Food And Beverage Assistant Relationship Specialty Start Date End Date Krishna Reynolds MD [address] [place] [address] PCP - General 08/25/09 Son Deluna MD [address] [place] [address] Cardiology 02/08/20 Fabrice Wadsworth MD [address] [place] [address] Nephrology 02/10/20 Mitchel Aleman MD [address] [place] [address] Physician Ophthalmology 03/30/20 Gary Chandler DPM [address] [place] [phone] Referring Podiatry 08/01/20 Food And Beverage Assistant Relationship Specialty Start Date End Date Krishna Reynolds MD [address] [place] [address] PCP - General 08/25/09 Son Deluna MD [address] [place] [address] Cardiology 02/08/20 Fabrice Wadsworth MD [address] [place] [address] Nephrology 02/10/20 Mitchel Aleman MD [address] [place] [address] Physician Ophthalmology 03/30/20 Gary Chandler DPM [address] [place] [phone] Referring Podiatry 08/01/20 Food And Beverage Assistant Relationship Specialty Start Date End Date Krishna Reynolds MD [address] [place] [address] PCP - General 08/25/09 Son Deluna MD [facility] [address] [address] Cardiology 02/08/20 Fabrice Wadsworth MD [address] [place], [place] [phone]- Nephrology 02/10/20 Mitchel Aleman MD [address] [place] [address] Physician Ophthalmology 03/30/20 Gary Chandler DPM [address] [facility] 2 [place] [phone] Referring Podiatry 08/01/20 Food And Beverage Assistant Relationship Specialty Start Date End Date Krishna Reynolds MD [address] [place] [address] PCP - General 08/25/09 Son Deluna MD [address] [address] Cardiology 02/08/20 Fabrice Wadsworth MD [address] [place] [address] Nephrology 02/10/20 Mitchel Aleman MD [address] [facility], [place] [address] Physician Ophthalmology 03/30/20 Gary Chandler DPM [address] [place] [phone] Referring Podiatry 08/01/20 Food And Beverage Assistant Relationship Specialty Start Date End Date Krishna Reynolds MD [address] [place] [address] PCP - General 08/25/09 Son Deluna MD [address] [place] [address] Cardiology 02/08/20 Fabrice Wadsworth MD [address] [place] [address] Nephrology 02/10/20 Mitchel Aleman MD [address] [place] [address] Physician Ophthalmology 03/30/20 Gary Chandler DPM [address] [place] [phone] Referring Podiatry 08/01/20 Food And Beverage Assistant Relationship Specialty Start Date End Date Krishna Reynolds MD [address] [place] [address] PCP - General 08/25/09 Son Deluna MD [address] [place] [address] Cardiology 02/08/20 Fabrice Wadsworth MD [address] [place], [place] [address] 214- Nephrology 02/10/20 Mitchel Aleman MD [address] [place] [address] Physician Ophthalmology 03/30/20 Gary Chandler DPM [address] [phone] Referring Podiatry 08/01/20 Food And Beverage Assistant Relationship Specialty Start Date End Date Krishna Reynolds MD [address] [place] [address] PCP - General 08/25/09 Son Delnua MD [address] [place] [address] Cardiology 02/08/20 Fabrice Wadsworth MD [address] [place] [address] Nephrology 02/10/20 Mitchel Aleman MD [address] [place], [place] 992271 Physician Ophthalmology 03/30/20 Gary Chandler DPM [address] [place] [phone] Referring Podiatry 08/01/20 Food And Beverage Assistant Relationship Specialty Start Date End Date Krishna Reynolds MD [address] [place] [address] PCP - General 08/25/09 Son Deluna MD [address] [facility] [address] [place] [address] Cardiology 02/08/20 Fabrice Wadsworth MD [address] [place], [place] [phone] Nephrology 02/10/20 Mitchel Aleman MD [address] [place] [address] Physician Ophthalmology 03/30/20 Gary Chandler DPM [address] [facility] 2 [place] [phone] Referring Podiatry 08/01/20 Food And Beverage Assistant Relationship Specialty Start Date End Date Krishna Reynolds MD [address] [place] [address] PCP - General 08/25/09 Son Deluna MD [address] [address] Cardiology 02/08/20 Fabrice Wadsworth MD [address] [place], [place] [phone]- Nephrology 02/10/20 Mitchel Aleman MD [address] [place] [address] Physician Ophthalmology 03/30/20 Gary Chandler DPM [address] [facility] 2 [place] [phone] Referring Podiatry 08/01/20 Food And Beverage Assistant Relationship Specialty Start Date End Date Krishna Reynolds MD [address] [place], [place] 314111 PCP - General 08/25/09 Son Deluna MD [address] [address] Cardiology 02/08/20 Fabrice Wadsworth MD [address] [place], [place] [phone]- Nephrology 02/10/20 Mitchel Aleman MD [address] [place] [address] Physician Ophthalmology 03/30/20 Food And Beverage Assistant Relationship Specialty Start Date End Date Krishna Reynolds MD [address] [place] [address] PCP - General 08/25/09 Son Deluna MD [address] [address] Cardiology 02/08/20 Fabrice Wadsworth MD [address] [place] [address] Nephrology 02/10/20 Mitchel Aleman MD [address] [place] [address] Physician Ophthalmology 03/30/20 Gary Chandler DPM [address] [place] [phone] Referring Podiatry 08/01/20 Food And Beverage Assistant Relationship Specialty Start Date End Date Krishna Reynolds MD [address] [place] [address] PCP - General 08/25/09 Son Deluna MD [address] [address] Cardiology 02/08/20 Fabrice Wadsworth MD [address] [place] [address] Nephrology 02/10/20 Mitchel Aleman MD [address] [place], [place] 643441 Physician Ophthalmology 03/30/20 Gary Chandler DPM [address] [place] [phone] Referring Podiatry 08/01/20 Food And Beverage Assistant Relationship Specialty Start Date End Date Krishna Reynolds MD [address] [place] [address] PCP - General 08/25/09 Son Deluna MD [address] [place] [address] Cardiology 02/08/20 Fabrice Wadsworth MD [address] [place], [place] [phone] Nephrology 02/10/20 Mitchel Aleman MD [address] [place], [place] 487391 Physician Ophthalmology 03/30/20 Gary Chandler DPM [address] [place] [phone] Referring Podiatry 08/01/20 Leila Suárez, 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 [address] [place] [address] Morning Caregiver Internal Medicine 03/02/24 Food And Beverage Assistant Relationship Specialty Start Date End Date Krishna Reynolds MD [address] [place] [address] PCP - General 08/25/09 Son Deluna MD [address] [facility] [address] [place], [place] 596681 Cardiology 02/08/20 Fabrice Wadsworth MD [address] [place] [address] Nephrology 02/10/20 Mitchel Aleman MD [address] [place], [place] 154451 Physician Ophthalmology 03/30/20 Gary Chandler DPM [address] [place] [phone] Referring Podiatry 08/01/20 Leila Suárez, 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 [address] [place] [address] Morning Caregiver Internal Medicine 03/02/24 Food And Beverage Assistant Relationship Specialty Start Date End Date Krishna Reynolds MD [address] [place] [address] PCP - General 08/25/09 Son Deluna MD [address]61 [facility] [address] [place], [place] 43[address] Cardiology 02/08/20 Fabrice Wadsworth MD [address] [place] [address] Nephrology 02/10/20 Mitchel Aleman MD [address] [place], [place] 91790691 Physician Ophthalmology 03/30/20 Gary Chandler DPM [address] [facility] 2 [place] [phone] Referring Podiatry 08/01/20 Leila Suárez, 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 [address] [place] [address] Morning Caregiver Internal Medicine 03/02/24 Food And Beverage Assistant Relationship Specialty Start Date End Date Krishna Reynolds MD [address] [place] [address] PCP - General 08/25/09 Son Deluna MD [address] [place], [place] 789901 Cardiology 02/08/20 Fabrice Wadsworth MD [address] [place], [place] [address] Nephrology 02/10/20 Mitchel Aleman MD [address] [place] [address] Physician Ophthalmology 03/30/20 Gary Chandler DPM [address] [facility] 2 [place] [phone] Referring Podiatry 08/01/20 Leila Suárez, 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 [address] [place] [address] Morning Caregiver Internal Medicine 03/02/24 Team Status: Active Member [...] June 18, 2024 End: June 22, 2024 Food And Beverage Assistant Relationship Specialty Start Date End Date Krishna Reynolds MD [address] [place] [address] PCP - General 08/25/09 Son Deluna MD [address] [facility] [address] [place] [address] Cardiology 02/08/20 Fabrice Wadsworth MD [address] [place], [place] [phone]- Nephrology 02/10/20 Mitchel Aleman MD [address] [place] [address] Physician Ophthalmology 03/30/20 Gary Chandler DPM [address] [facility] 2 [place] [phone] Referring Podiatry 08/01/20 Leila Suárez, 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 [address] [place] [address] Morning Caregiver Internal Medicine 03/02/24 Food And Beverage Assistant Relationship Specialty Start Date End Date Krishna Reynolds MD [address] [place] [address] PCP - General 08/25/09 Son Deluna MD [address] [facility] [address] [place] [address] Cardiology 02/08/20 Fabrice Wadsworth MD [address] [place], [place] [phone]- Nephrology 02/10/20 Mitchel Aleman MD [address] [place] [address] Physician Ophthalmology 03/30/20 Gary Chandler DPM [address] [place] [phone] Referring Podiatry 08/01/20 Leila Suárez, 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 [address] [place] [address] Morning Caregiver Internal Medicine 03/02/24 Team Status: Inactive Member [...] Inactive Member Role/Relationship Status Dates Dr. Krishna Ryenolds MD Primary Care Provider Active Start: June [...] September 17, 2024 End: September 21, 2024 Food And Beverage Assistant Relationship Specialty Start Date End Date Krishna Reynolds MD [address] [place] [address] PCP - General 08/25/09 Son Deluna MD [address] [place] [address] Cardiology 02/08/20 Fabrice Wadsworth MD [address] [place], [place] [phone] Nephrology 02/10/20 Mitchel Aleman MD [address] [place] [address] Physician Ophthalmology 03/30/20 Gary Chandler DPM [address] [place] [phone] Referring Podiatry 08/01/20 Leila Suárez, 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 [address] [place] [address] Morning Caregiver Internal Medicine 03/02/24 Food And Beverage Assistant Relationship Specialty Start Date End Date Krishna Reynolds MD [address] [place] [address] PCP - General 08/25/09 Son Deluna MD [address] [place] [address] Cardiology 02/08/20 Fabrice Wadsworth MD [address] [place] [address] Nephrology 02/10/20 Mitchel Aleman MD [address] [place] [address] Physician Ophthalmology 03/30/20 Gary Chandler DPM [address] [facility] 2 [place] [phone] Referring Podiatry 08/01/20 Leila Sáurez, 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 [address] [place] [address] Morning Caregiver Internal Medicine 03/02/24 Food And Beverage Assistant Relationship Specialty Start Date End Date Krishna Reynolds MD [address] [place] [address] PCP - General 08/25/09 Son Deluna MD [address] [facility] [address] [place] [address] Cardiology 02/08/20 Fabrice Wadsworth MD [address] [place], [place] [phone]- Nephrology 02/10/20 Mitchel Aleman MD [address] [place] [address] Physician Ophthalmology 03/30/20 Gary Chandler DPM [address] [place] [phone] Referring Podiatry 08/01/20 Leila Suárez, 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 [address] [place], [place] 970991 Morning Caregiver Internal Medicine 03/02/24 Food And Beverage Assistant Relationship Specialty Start Date End Date Krishna Reynolds MD [address] [place], [place] 350851 PCP - General 08/25/09 Son Deluna MD [address] [facility] [address] [place], [place] 05[address] Cardiology 02/08/20 Fabrice Wadsworth MD [address] [place] [address] Nephrology 02/10/20 Mitchel Aleman MD [address] [place] [address] Physician Ophthalmology 03/30/20 Gary Chandler DPM [address] [place], [id number] Referring Podiatry 08/01/20 Leila Suárez, 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 [address] [place] [address] Morning Caregiver Internal Medicine 03/02/24 Team Status: Inactive Member [...] 2024 End: August 22, 2024 Dr. Krishna Reynodls MD Referring Provider Active Start: August 20, [...] November 19, 2024 End: November 22, 2024 Food And Beverage Assistant Relationship Specialty Start Date End Date Krishna Reynolds MD [address] [place] [address] PCP - General 08/25/09 Son Deluna MD [address] [place] [address] Cardiology 02/08/20 Fabrice Wadsworth MD [address] [facility] [place] [address] Nephrology 02/10/20 Mitchel Aleman MD [address] [place], [place] [id number] Physician Ophthalmology 03/30/20 Gary Chandler DPM [address] [facility] [address] [place] [id number] Referring Podiatry 08/01/20 Leila Suárez, 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 [address] [place], [place] [id number] Morning Caregiver Internal Medicine 03/02/24 Team Status: Active Member Role/Relationship Status Dates Dr. Krishna Reynolds MD Primary care physician Activ e Team Status: Inactive Member Role/Relationship Status Dates Dr. Krishna Reynolds MD Primary care physician Activ e Start: September 17, 2024 End: September 21, 2024 Dr. Krishna Reynolds MD Attending physician Active Start: September 17, 2024 End: September 21, 2024 Dr. Krishna Reynolds MD Referring Provider Active Start: September 17, 2024 End: September 21, 2024 Team Status: Inactive Member Role/Relationship Status Dates Dr. Krishna Reynolds MD Primary care physician Activ e Start: October 22, 2024 End: October 22, 2024 Dr. Krishna Reynolds MD Attending physician Active Start: October 22, 2024 End: October 22, 2024 Dr. Krishna Reynolds MD Referring Provider Active Start: October 22, 2024 End: October 22, 2024 Team Status: Inactive Member Role/Relationship Status Dates Dr. Krishna Reynolds MD Primary care physician Activ e Start: November 19, 2024 End: November 22, 2024 Dr. Krishna Reynolds MD Attending physician Active Start: November 19, 2024 End: November 22, 2024 Dr. Krishna Reynolds MD Referring Provider Active Start: November 19, 2024 End: November 22, 2024 Team Status: Inactive Member Role/Relationship Status Dates Dr. rKishna Reynolds MD Primary care physician Activ e Start: December 02, 2024 End: December 02, 2024 Dr. Krishna Reynolds MD Attending physician Active Start: December 02, 2024 End: December 02, 2024 Dr. Krishna Reynolds MD Referring Provider Active Start: December 02, 2024 End: December 02, 2024 Team Status: Inactive Member Role/Relationship Status Dates Dr. Krishna Reynolds MD Primary care physician Activ e Start: December 22, 2024 End: December 22, 2024 Dr. Krishna Reynolds MD Attending physician Active Start: December 22, 2024 End: December 22, 2024 Dr. Krishna Reynolds MD Referring Provider Active Start: December 22, 2024 End: December 22, 2024 Goals (unrecognized section and content) Goals may [...] BE BASED ON THE PRIMARY CLINICAL RECORDS. [facility]. provides no warranty or guarantee of the accuracy or completeness of information in this document.
[2025-01-19 09:54] LABS: Hematocrit 46.4 % (40-54); Hemoglobin 15.9 g/dL (13.0-16.5); Mean Corp Hgb Conc 34.3 g/dL (32-36); Mean Corpuscular Volume 90.3 fL (80-94); Mean Platelet Vol. 9.4 fl (6.2-12.0); Platelet Count 230 K/mm3 (150-450); RBC Distribution Width CV 13.0 % (11.6-14.6); RBC Distribution Width SD 42.5 fl (35.1-43.9); Red Blood Count 5.14 M/mm3 (4.6-6.2); White Blood Count 6.1 K/mm3 (4.4-11.0)
== END | disposition home or self-care (01) ==
LOC: LAB 06:58
PROVIDERS: PCP Internal Medicine; Referring Provider Internal Medicine; Visit Provider Internal Medicine
DX: R06.09 Other forms of dyspnea (principal)
CPT/HCPCS: 85027

== ENCOUNTER 2025-01-21 08:00 | Outpatient (RCR) | payer SELFPAY ==
[2020-12-01 05:55] VITALS: BMI 45.8
== END 2025-01-22 23:59 ==
LOC: CR 08:00
PROVIDERS: PCP Internal Medicine; Referring Provider Internal Medicine; Visit Provider Internal Medicine
DX: Z00.00 Encounter for general adult medical examination without abnormal findings (principal)

== ENCOUNTER 2025-02-16 08:00 | Outpatient (RCR) | payer SELFPAY ==
[2020-12-01 05:55] VITALS: BMI 45.8
== END 2025-02-21 23:59 ==
LOC: CR 08:00
PROVIDERS: PCP Internal Medicine; Referring Provider Internal Medicine; Visit Provider Internal Medicine
DX: Z00.00 Encounter for general adult medical examination without abnormal findings (principal)

== ENCOUNTER → 2025-03-23 | Outpatient (CLI) | payer MEDICARE, OTHER, SELFPAY ==
[2020-12-01 05:55] VITALS: BMI 45.8
--- OUTSIDE RECORDS SUMMARY | 2025-03-23 06:33 | XMS RPT_ITS | CCD ---
Author Organization [facility] Care Team Providers Care Circuit Breaker Mechanic Name Role Phone Maddy LAST, Brea Savage Unavailable Son Deluna MD Unavailable Marva Rodriguez Unavailable Unavailable Marva Rodriguez Unavailable Unavailable Mojgan Obando RN Unavailable Unavailable [facility] Nurse Unavailable Unavailable Krishna Reynolds MD Primary Care Provider Son Deluna Unavailable Fabrice Wadsworth MD Unavailable Mitchel Aleman Unavailable Chandler DPChristina, Gary J Unavailable rKishna Reynolds MD Primary Care Provider Son Deluna [...] Referring Provider Violet, ULISES Dalia Attending Provider [facility] Dalia Other Provider [phone] Dr. [...] MD Unavailable Ramesh INFANTE, Gary Hernandez Unavailable [facility] 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, Leila M Unavailable Rodolfo KRUEGER, Dr. Keller [...] Physician Rodolfo KRUEGER, Dr. Keller Referring Provider KRISHNA REYNOLDS Attending Unavailable REYNOLSD, SOPHIE Primary Care Unavailable REGULO STOVER Attending Unavailable REGULO STOVER Referring Unavailable REYNOLDS, SOPHIE Primary Care Unavailable JOLANTAREGULO RÍOS Referring Unavailable REYNOLDS, SOPHIE Primary Care Unavailable JOLANTAREGULO RÍOS Referring Unavailable REYNOLDS, KRISHNA Patel Primary Care Unavailable ARABELLA HEREDIA Attending Unavailable REYNOLDS, KRISHNA Patel Primary Care Unavailable REYNOLDS, KRISHNA Patel Attending Unavailable REYNOLDS, KRISHNA Patel Primary Care Unavailable REYNOLDS, KRISHNA Patel Referring Unavailable REYNOLDS, KRISHNA Patel Primary Care Unavailable JOE RODRIGUEZ Attending Unavailable REYNOLDS, KRISHNA Patel Referring Unavailable REYNOLDS, KRISHNA Patel Primary Care Unavailable JOE RODRIGUEZ Referring Unavailable REYNOLDS, KRISHNA Patel Primary Care Unavailable REYNOLDS, KRISHNA Patel Attending Unavailable REYNOLDS, KRISHNA Patel Primary Care Unavailable ARABELLA HEREDIA Attending Unavailable REYNOLDS, KRISHNA Patel Primary Care Unavailable Reynolds, Krishna Attending Unavailable Reynolds, Krishna Referring Unavailable Reynolds, Krishna Primary Care Unavailable Reynolds, Krishna Referring Unavailable Reynolds, Krishna Primary Care Unavailable Reynolds, Krishna Attending Unavailable NayanaWood mckinney Attending Unavailable Reynolds, Krishna Primary Care Unavailable NayanaWood Referring Unavailable Reynolds, Krishna Primary Care Unavailable Reynolds, Krishna Referring Unavailable Reynolds, Krishna Attending Unavailable Reynolds, Krishna Attending Unavailable Reynolds, Krishna Referring Unavailable Reynolds, Krishna Primary Care Unavailable Reynolds, Krishna Attending Unavailable Reynolds, Krishna Primary Care Unavailable Reynolds, Krishna Referring Unavailable Regulo Stover Attending Unavailable Reynolds, Krishna Primary Care Unavailable Regulo Stover Referring Unavailable NayanaWood mckinney Consulting Unavailable Reynolds, Krishna Primary Care Unavailable Reynolds, Krishna Attending Unavailable Reynolds, Krishna Referring Unavailable Regulo Stover Consulting Unavailable Reynolds, Krishna Primary Care Unavailable Reynolds, Krishna Referring Unavailable Reynolds, Krishna Attending Unavailable Reynolds, Krisnha Referring Unavailable Reynolds, Krishna Primary Care Unavailable Reynolds, Krishna Attending Unavailable Reynolds, Krishna Primary Care Unavailable Reynolds, Krishna Referring Unavailable Reynolds, Krishna Attending Unavailable Reynolds, Krishna Attending Unavailable Reynolds, [...] Unavailable Reynolds, Krishna Attending Unavailable Reynolds, Krishna Attending Unavailable Reynolds, Krishna Primary Care Unavailable Reynolds, Krishna Referring Unavailable Reynolds, Krishna Attending Unavailable Reynolds, Krishna Referring Unavailable Reynolds, Krishna Primary Care Unavailable Reynolds, Krishna Attending Unavailable Reynolds, Krishna Primary Care Unavailable Allergies Allergy Classification Reported Allergen(s) Allergy Type Date of Onset Reaction(s) Facility Angiotensin 2 Receptor Blockers (ARB) (1 source) valsartan Drug Allergy 12-30-19 05 [facility] Angiotensin Converting Enzyme (ITA) Inhibitors (2 sources) Ramipril Drug Allergy 12-30-19 05 Intolerance [facility] Work Phone: metOLazone (1 source) metOLazone Drug Allergy 01-16-20 22 Rash [facility] Propofol (1 source) Propofol Drug Allergy 02-10-20 Other: See Comments [facility] Sulfamethoxazole / Trimethoprim (1 source) Sulfamethoxazole / Trimethoprim Drug Allergy 08-16-19 21 [facility] (6 sources) acetaminophen / HYDROcodone Drug Allergy 12-20-19 13 [facility] Work Phone: [phone] (18 sources) Contrast media; Translations: [RED DYE] food allergy 12-26-19 13 [employer] Work Phone: [phone] (6 sources) Hmg-Coa Reductase Inhibitors (Statins) drug allergy 12-20-19 13 muscle aches [facility] Work Phone: (12 sources) ramipril Drug Allergy 12-20-19 13 [employer] [facility] Work Phone: (12 sources) valsartan Drug Allergy 12-20-19 13 [employer] [facility] Work Phone: (7 sources) HMG-CoA reductase inhibitor; Translations: [URMMUHP-DAR-UAO REDUCTASE INHIBITORS] Drug Intolerance 06-18-19 12 Other: See Comments [facility] Work Phone: (20 sources) Propofol; Translations: [PROPOFOL] Drug Allergy 02-10-20 20 Other: See Comments [facility] Comment on above: i went crazy (20 sources) Ramipril; Translations: [RAMIPRIL] Drug Allergy 12-30-19 05 Intolerance [facility] Work Phone: (20 sources) Seasonal allergy; Translations: [SEASONAL ALLERGIES] Allergy to substance 08-05-19 13 Other: See Comments [facility] (20 sources) Sulfamethoxazole / Trimethoprim; Translations: [SULFAMETHOXAZOLE-T RIMETHOPRIM] Drug Allergy 08-16-19 21 [facility] (20 sources) valsartan; Translations: [VALSARTAN] Drug Allergy 12-30-19 05 [employer] [facility] Work Phone: (20 sources) HYDROcodone Drug Allergy 06-25-19 21 [facility] (20 sources) Sfhfclr-Shg-Vmb Reductase Inhibitor; Translations: [Oiahrdp-Icu-Nnt Reductase Inhibitor] Propensity to adverse reactions 06-25-19 21 Muscle aches [facility] (20 sources) HMG-CoA reductase inhibitor Drug Intolerance 06-18-19 12 Other: See Comments [facility] Work Phone: (20 sources) metOLazone; Translations: [METOLAZONE] Drug Allergy 01-16-20 22 Rash [facility] (1 source) HYDROcodone Drug Allergy 01-30-20 23 [facility] (1 source) Propofol Drug Allergy 01-30-20 23 [facility] (1 source) Ramipril Drug Allergy 01-30-20 [facility] (1 source) valsartan Drug Allergy 01-30-20 [facility] Medications Current Medications Medication Drug Class(es) [...] mg/mL pen Indications: Coronary artery disease of [place] artery of [place] heart with stable angina pectoris , Atherosclerosis of aorta , Other hyperlipidemia , Statin intolerance Inject 1 mL subcutaneously every other week. 6 mL 3 08/10/2024 08/10/2025 Active Start: 11-18-2023 inject 1 mL by subcu taneous injection every other week alirocumab (PRALUENT PEN) 150 mg/mL pen Indications: 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) , Other hyperlipidemia , Statin intolerance Inject 1 mL subcutaneously every other week. 6 mL 3 11/18/2023 Active Start: 03-12-2023 End: 11-18-2023 inject 1 mL by subcutaneous injection every other week alirocumab (PRALUENT PEN) 75 mg/mL pen Indications: 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) , Other hyperlipidemia , Statin intolerance , Atherosclerosis of aorta (HCC) Inject 1 mL under the skin every other week. 6 mL 3 03/14/2023 11/18/2023 Discontinued Comment on above: Inject 1 mL under th e skin every other week. Inject 1 mL subcutan eously every other week. ascorbic acid 1000 mg oral tablet (20 sources) Start: 6 take 1 tablet by mouth once daily Comment on above: Take one(1) tablet d aily. aspirin 81 mg delayed release oral tablet (20 sources) Nonsteroidal Anti-inflammatory Drug Start: 4 take 1 tablet by mouth once daily aspirin, enteric coated (ASPIRIN, ENTERIC COATED) 81 mg EC tablet Indications: Coronary artery disease involving [place] heart without angina pectoris, unspecified vessel or lesion type Take 1 tablet by mouth once daily. 12/11/2023 Active Start: 12-02-2023 End: 12-11-2023 aspirin, enteric coated (ASP IRIN, ENTERIC COATED) 325 mg EC tablet Indications: CAD (coronary artery disease) Take 81 mg by mouth once daily. 0 12/02/2023 12/11/2023 Discontinued Start: 05-30-2017 take 1 tablet by marisa th once daily Start: 12-19-2012 take 1 tablet by marisa th once daily ASPIRIN 325 MG TABS One tablet by mouth daily ASPIRIN [id number] Elisabeth Veliz RN Start: 11-16-2010 take 1 tablet by marisa th once daily aspirin, enteric coated (ASPIRIN, ENTERIC COATED) 325 mg EC tablet Indications: CAD (coronary artery disease) Take 1 tablet by mouth once daily. 0 11/16/2010 Active Comment on above: Take 1 tablet by marisa th once daily. bempedoic acid 180 mg / [...] 1 tablet by marisa th once daily. biotin 1 mg oral tablet [...] 1 tablet by marisa th once daily. cephalexin 500 mg oral capsule [...] on above: Take 1 capsule by mo [facility] three times daily for 7 days. cholecalciferol 0.05 mg oral capsule (20 sources) Vitamin D Start: 1 take 1 capsule by mouth once daily [...] times a day for 7 days. Fish Oil-[place]-3 Fatty Acids (FISH OIL OMEGA 3-6-9) 300-1,000 mg CpDR (20 sources) Start: 2 Fish Oil-[place]-3 Fatty Acids (FISH OIL OMEGA 3-6-9) 300-1,000 mg CpDR Indications: Other and unspecified hyperlipidemia Take 3000 mg daily. 0 09/17/2011 Active Comment on above: Take 3000 mg daily. furosemide 80 mg oral tablet (20 sources) Loop Diuretic Start: End: take 1 tablet by mouth twice daily [...] sources) Anti-epileptic Agent Start: 02-10-20 End: 04-25-19 take 1 capsule by mouth three times daily gabapentin (NEURONTIN) 100 mg capsule Indications: Type 2 diabetes mellitus with diabetic neuropathy, with long-term current use of insulin (HCC) Take 1 capsule by mouth three times a day for 360 days. 270 capsule 3 04/30/2024 04/25/2025 Active 3 ml insulin aspart, human 100 unt/ml pen injector (20 sources) Insulin Analog Start: 06-11-19 End: 11-05-19 25 inject 25 [IU] by [...] tablets by mouth twice daily METOPROLOL TARTRATE [id number] Son Deluna MD Start: 02-23-2013 take 1 tablet by marisa th twice daily as needed, then take 1 tablet by mouth once daily as needed METOPROLOL TARTRATE 25 MG TABS One tablet by mouth twice daily and one extra daily as needed METOPROLOL TARTRATE [id number] Son Deluna MD Comment on above: Take [...] Start: 09-15-2019 take 1 tablet by marisa twice daily Multivitamin With Minerals Active 1 TAB PO TWICE A DAY September 14, 2019 11:00pm Start: 09-15-2019 take 1 tablet by marisa twice daily Multivitamin With Minerals Active 1 TAB PO TWICE A DAY September 15, 2019 12:00am Multivitamin With Minerals 1 EACH tablet (9 sources) Start: 09-15-2019 take 1 tablet by marisa twice daily Start: 09-15-2019 take 1 tablet by marisa twice daily Multivitamin With Minerals 1 EACH tablet Active 1 NMA PO TWICE A DAY September 15, 2019 12:00am SUPPLEMENT Start: 09-15-2019 take 1 tablet by marisa twice daily Multivitamin With Minerals 1 EACH [...] 5 min up to 3 X NITROGLYCERIN [id number] Son Deluna MD Comment on above: Dissolve 1 tablet un chidi the tongue every 5 minutes as needed for chest pain. IF NO PAIN RELIEF WITH 2ND DOSE, CALL 911 [place]-3 Fatty Acids (Fish Oil Concentrate) 1,000 mg capsule (20 sources) Start: 05-25-2019 [place]-3 Fatty Acids (Fish Oil Concentrate) 1,000 mg capsule Active 3000 MG PO TWICE A DAY May 25, 2019 3:40pm Start: 05-25-2019 Start: 05-25-2019 [place]-3 Fatty Acids (Fish Oil Concentrate) 1,000 mg capsule Active 3000 mg PO TWICE A DAY May 25, 2019 1:00am SUPPLEMENT Start: 05-25-2019 [place]-3 Fatty Acids (Fish Oil Concentrate) 1,000 mg capsule Active 3000 mg PO TWICE A DAY May 25, 2019 1:00am Start: 05-25-2019 [place]-3 Fatty Acids (Fish Oil Concentrate) 1,000 mg capsule Active 3000 MG PO TWICE A DAY May 25, 2019 12:00am Start: 05-25-2019 [place]-3 Fatty Acids (Fish Oil Concentrate) 1,000 mg [...] One tablet by mouth daily AMIODARONE HCL [id number] Son Deluna MD Start: 12-25-2012 End: 01-21-2013 AMIODARONE HCL 400 MG TABS 1 /2 tablet tid for 2 weeks then bid for 2 weeks then daily (the 200 mg tablets are red and pt is allergic to red dye) AMIODARONE HCL [id number] Mojgan Obando RN Start: 12-25-2012 AMIODARONE HCL 400 MG TABS 1/2 tablet daily (the 200 mg tablets are red and pt is allergic to red dye) AMIODARONE HCL [id number] Mojgan Obando RN amLODIPine 10 mg oral [...] mg tablet Discontinued 10 mg PO DAILY 30 November 16, 2019 12:00am June 24, 2020 8:22am Start: 02-06-2017 End: 10-01-2022 take 1 tablet by mouth once daily Amlodipine 5 mg tablet Discontinued 5 mg PO daily 90 May 25, 2019 5:29pm September 15, 2019 1:28pm Comment on above: Take 1 tablet by marisa th once daily. Take 0.5 tablets by mouth once daily. atropine sulfate 0.0194 mg / hyoscyamine sulfate 0.1037 mg / PHENobarbital 16.2 mg / scopolamine hydrobromide 0.0065 mg oral tablet (20 sources) Anticholinergic, Cholinergic Muscarinic Antagonist Start: 11-25-2019 End: 09-07-2020 Oyufguhum-Xqrcyr-Hhcvon ne-Scop () 16.2-0.1037 -0.0194 mg tablet Discontinued 1 {tbl} PO THREE TIMES A DAY as needed for Abdominal Pain November 25, 2019 12:00am September 07, 2020 2:52pm administer 30 minutes before meals Start: 12-19-2012 End: 02-13-2013 take 1 tablet by mouth three times daily as needed 16.2 MG TABS One tablet by mouth three times daily as needed BELLADONNA ALK-PHENOBARBITAL [id number] Elisabeth Veliz RN BELLADONNA ALK-PHENOBARBITAL TABS (6 sources) Start: 05-21-2014 BELLADONNA ALK-PHENOBARBITAL TABS as needed for heartburn BELLADONNA ALK-PHENOBARBITAL TABS oSn Deluna MD clopidogrel 75 mg oral tablet (20 sources) P2Y12 Platelet Inhibitor Start: 12-16-2019 End: 05-28-2024 take 1 tablet by mouth once daily Clopidogrel 75 mg tablet Discontinued 75 mg PO DAILY 90 December 29, 2019 3:33pm September 07, 2020 2:49pm For Cardiac CAth Comment on above: Take 1 tablet by marisa th once daily. TAKE ONE TABLET BY M OUT EVERY DAY 24 hr dilTIAZem hydrochloride 120 mg extended release oral capsule (12 sources) Calcium Channel Veronique Start: 12-19-2012 End: 02-13-2013 take 1 tablet by mouth once daily DILTIAZEM HCL ER 120 MG [id number]-CVK One tablet by mouth daily DILTIAZEM HCL [id number] Son Deluna MD doxazosin 1 mg oral [...] tablet Discontinued 1 mg PO AT BEDTIME 3 May 25, 2019 5:29pm September 15, 2019 1:30pm Comment on above: Take 1 tablet by marisa th daily at bedtime. TAKE ONE TABLET BY M OUT EVERY DAY AT BEDTIME Elderberry Fruit And [...] three times daily OMEGA-3 FATTY ACIDS CAPS [id number] Son Deluna MD Start: 12-19-2012 take 1 tablet by marisa th once daily FISH OIL CAPS One tablet by mouth daily OMEGA-3 FATTY ACIDS CAPS [id number] Elisabeth Veliz RN flash glucose scanning reade [...] One tablet by mouth twice daily GLIMEPIRIDE [id number] Son Deluna MD hydroCHLOROthiazide 12.5 mg / [...] One tablet by mouth twice daily LISINOPRIL-HYDROCHLOROTHIAZIDE [id number] Son Deluna MD Start: 12-19-2012 take 0.5 tablet by mouth once daily LISINOPRIL-HYDROCHLOROTHIAZIDE 20-12.5 M G TABS One-half tablet by mouth daily LISINOPRIL-HYDROCHLOROTHIAZIDE [id number] Son Deluna MD 3 ml insulin degludec [...] T/ML SOLN take as directed INSULIN GLARGINE [id number] Elisabeth Veliz RN metFORMIN hydrochloride 500 mg [...] Start: 12-19-2012 take 2 tablets by mo [facility] in the morning, then take 3 tablets by mouth in the evening METFORMIN HCL 500 MG TABS Two tablets by mouth in am, Three tablets by mouth in pm METFORMIN HCL [id number] Elisabeth Veliz RN metOLazone 2.5 mg oral [...] Comment on above: Take 1 tablet by [facility] once daily. MULTIPLE VITAMIN (6 sources) [...] mouth twice daily (STOP) SOTALOL HCL AF [id number] Mojgan Obando RN Start: 12-25-2012 take 1 tablet by marisa th twice daily SOTALOL HCL (AF) 80 MG TABS One tablet by mouth twice daily (STOP) SOTALOL HCL AF [id number] Son Deluna MD Start: 12-19-2012 take 1 tablet by marisa th twice daily SOTALOL HCL (AF) 80 MG TABS One tablet by mouth twice daily SOTALOL HCL AF [id number] Reshma Jose Alfredo RN sulfamethoxazole 800 mg [...] mouth twice daily as needed TRAMADOL HCL [id number] Son Deluna MD verapamil hydrochloride 180 mg oral capsule (20 sources) Calcium Channel Veronique Start: 05-28-2013 take 1 tablet by mouth twice daily VERAPAMIL HCL ER 180 MG CR-TABS One tablet by mouth twice daily (on HOLD) VERAPAMIL HCL [id number] Son Deluna MD Start: 05-11-2013 take 1 tablet by marisa th twice daily VERAPAMIL HCL 120 MG TABS One tablet by mouth twice daily VERAPAMIL HCL [id number] Son Deluna MD Start: 02-13-2013 take 1 tablet by marisa th once daily VERAPAMIL HCL 120 MG TABS One tablet by mouth daily VERAPAMIL HCL [id number] Son Deluna MD warfarin sodium 5 mg oral tablet (20 sources) Vitamin K Antagonist Start: 08-25-2014 End: 09-28-2014 COUMADIN 5 MG TABS Two tablets by mouth on Sat / Sun WARFARIN SODIUM [id number] Son Deluna MD Start: 12-19-2012 End: 09-28-2014 COUMADIN 5 MG TABS One and 1 /2 tablet by mouth M-F WARFARIN SODIUM [id number] Fatimah Nguyen RN Problems Active Problems Problem [...] Coronary atherosclerosis; Translations: [Atherosclerotic heart disease of [place] coronary artery with other forms of angina pectoris] Onset: 10-07-2007 Resolved: 07-02-2020 07-02-2020 Chronic Coronary atherosclerosis and other heart disease (20 sources) Stented coronary artery; Translations: [Presence of coronary angioplasty implant and graft] Onset: 06-23-2020 07-01-2020 Episodic Comment on above: PCI/stent to the LM and LAD per Dr. Stover @[facility] 07/01/20; PTCA with DILIA to CFX [...] current use of drug therapy; Translations: [Other terminal system operator (current) drug therapy] 05-30-2017 Episodic Other and [...] [Pain in right elbow] 09-11-2023 Episodic Other non-traumatic joint disorders (1 source) Pain in right wrist; Translations: [Pain in right wrist] Onset: 01-25-2025 Episodic Other nutritional; endocrine; and metabolic disorders [...] (6 sources) Long-term drug therapy; Translations: [Other correction (current) drug therapy] Onset: 05-25-2015 05-25-2015 Unclassified [...] sources) Long-term current use of anticoagulant; Translations: [meterman (current) use of anticoagulants] Onset: 05-31-2014 Resolved: 08-19-2014 08-19-2014 Episodic Other aftercare (1 source) correction (current) use of insulin; Translations: [Type 2 [...] Test Name Value Interpretation Reference Range Facility [facility] 01-27-2025 [facility] Telephone (INTMWS) MIGUELANGEL MOYA Ariel ([id number]) 1950 M Date Time Provider Department 01/27/25 KRISHNA REYNOLDS INTMWS During your visit today, we recorded the following information about you: Christina Pedro RN 01/27/2025 8:22 AM Signed , Jessica, reports pt saw Dr. Rodriguez on Saturday. Dr. Rodriguez advised patient to call pcp and ask pcp to look at patient's uric acid level. Labs done at [facility] on and show uric acid 10.7 (3.5-7.2). Reports pt has been having pain in right arm, and wonders if it could be gout. Asking if pcp wants to prescribe allopurinol for this. 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 Requested Prescriptions Signed Prescriptions Disp Refills allopurinol (ZYLOPRIM) 100 mg tablet 180 tablet 1 Sig: Take 2 tablets by mouth once daily. Authorizing Provider: KRISHNA REYNOLDS MD - ALLOPURINOL 100 MG TABLET - URIC ACID in 2 months. Send order to [facility] lab. MD Ronni Milian Elizabeth, MA 01/27/2025 9:54 AM Signed Faxed lab and patient left message on Kristi Rudolph MA Allergies As of Date: 01/27/2025 Noted Allergy Reaction METOLAZONE 01/15/2022 2 - Rash ALTACE (RAMIPRIL) 12/29/2004 5 - Intolerance BACTRIM (SULFAMETHOXAZOLE-TR IMETH*08/15/2020 4 - Hives DIOVAN (VALSARTAN) 12/29/2004 PROPOFOL 02/10/2020 14 - Other: See Comments Comments: agitation RAMIPRIL 11/05/2007 SEASONAL ALLERGIES 08/04/2012 14 - Other: See Comments DELMDHM-HAY-NVJ REDUCTASE INHIBIT*06/18/2011 14 - Other: See Comments Comments: Muscle aches Date Reviewed: 01/25/2025 Reviewed by: Sruthi Sánchez MA - Fully Assessed Reason for Visit: Patient Question [5244] Primary Visit Diagnosis:Tophaceous gout [M1A.9XX1] Order(s):allopurinol (ZYLOPRIM) 100 mg tabletTake 2 tablets by mouth once daily.Disp: 180 tabletRfl: 1 URIC ACID [SQURIC] Order #: [id number] FUTURE Prescriptions as of 01/27/2025 - allopurinol (ZYLOPRIM) 100 mg tablet Take 2 tablets by mouth once daily. - furosemide (LASIX) [...] tablet by mouth once daily. - Insulin [place], Disposable, 32 gauge x 5/32 Use with insulin 4 times a day. Dx: E11.40; Z79.4 - blood sugar diagnostic (BLOOD GLUCOSE TEST) test strip Test blood sugar(s) 4-5 times daily Dx: Type 2 DM - Uncontrolled E11.65 Insulin: Yes - BIOTIN ORAL Take 1 tablet by mouth once daily. - Fish Oil-[place]-3 Fatty Acids (FISH OIL OMEGA 3-6-9) 300-1,000 mg CpDR Take 3000 mg daily. - Lancets (ONE TOUCH ULTRASOFT LANCETS) Misc lancets twice daily. Use as instructed ( may dispense Deuca brand) - MULTIVITAMIN TAB Take one(1) tablet daily. - VITAMIN C 1,000 MG TAB Take one(1) tablet daily. Problem List As Of Date 01/27/2025 Noted Resolved GENERAL OSTEOARTHROSIS [M15.9] ESOPHAGEAL REFLUX [K21.9] Venous (peripheral) insufficiency [I87.2] Personal history of contact with and (suspected* 08/19/2014 Type 2 diabetes mellitus with diabetic neuropat* Class 3 severe obesity with body mass index (BM* Nonspecific abnormal results of liver function * 08/19/2014 Other hyperlipidemia [E78.49] Essential hypertension [I10] Diabetic polyneuropathy (HCC) [E11.42] 01/30/2006 04/24/2018 Coronary artery disease of [place] artery of thai*10/07/2007 Persistent atrial fibrillation (HCC) [I48.19] 10/07/2007 JAMES (obstructive sleep apnea) [G47.33] 08/13/2013 08/19/2014 Memory disturbance [R41.3] 08/13/2013 Hematuria [R31.9] 05/31/2014 08/19/2014 BPH (benign prostatic hyperplasia) [ (more content not included)... Normal [facility] CNOVon 01-25-2025 CNOV Office Visit (ORTHWS) MIGUELANGEL MOYA ([id number]) 1950 M Date Time Provider Department 01/25/25 9:15 AM JOE RODRIGUEZ During your visit today, we recorded the following information about you: Joe Rodriguez MD 01/25/2025 12:57 PM Signed Patient here for evaluation for Right elbow ulnar neuropathy. Patient states he is having pain in his right elbow, wrist, index and small fingers. Patient states he is also has lumps in all of those areas as well. He is having numbness and tingling in his fingers. Has been dropping things and states he can press tender smoke signal for a short period. Patient is currently continuing cardiac rehab after his heart stents 5 years ago. Patient is left hand dominant. with patient today. Patient taking Tylenol for pain when needed as he is on Eliquis. Joe Rodriguez MD Department of Orthopaedics Orthopaedics [address] [facility] [address] Dept: [phone] Dept January 25, 2025 CHIEF COMPLAINT: Established Patient of the Right Elbow (Ulnar nerve neuropathy right elbow - Referred by Dr Reynolds/Last seen by Kaila 09/16/23 mass right elbow with Kaila) OTTO Moya is a 74-year-old male presenting with right wrist pain, right index finger swelling, and numbness and tingling in the right hand. He is accompanied by his , who provides additional history. Miguelangel reports right wrist pain localized to the ulnar aspect, which is tender to palpation and worsens with weather changes. He also notes intermittent numbness and tingling in the right hand, including the 5th digit. He has a visible lump on the right index finger, which he describes as tender and fluctuating in size. He also reports a longstanding deformity of another finger from a remote injury, which now occasionally locks. He has a history of bilateral ulnar nerve surgeries. He denies any prior diagnosis of gout. He recently had a uric acid level drawn at [facility], which was elevated at 10.7. 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 Ulnar neuropathy of right upper extremity (G56.21) History of bilateral ulnar nerve decompression; currently experiencing numbness and tingling in the right upper extremity, suggestive of recurrent ulnar neuropathy. - Discussed that repeat surgery is not recommended at this time. - Discussed that a repeat nerve conduction study could be considered if symptoms worsen or persist. 2. Tophaceous gout (M1A.9XX1) 3. Pain in right wrist (M25.531) Elevated uric acid level (10.7 mg/dL) with clinical findings consistent with gout, contributing to right wrist pain. - X-ray of right hand ordered to evaluate for gouty arthropathy and assess wrist pain. - Will message Dr. Reynolds to discuss initiation of allopurinol or other urate-lowering therapy. - Provided wrist brace to offload joint during activity. - Discussed potential for corticosteroid injection if wrist pain persists after gout management is initiated. - Educated patient on dietary triggers for gout, including asparagus and mushrooms. 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 OBJECTIVE: Mr. Miguelangel Moya is a pleasant 74 year old in no apparent distress. Gen:There were no vitals taken for this visit. nl development, obese, no deformities ENT: Normocephalic, normal hearing, moist mucosa CV: Pulses:Radial= 2+ and symmetric, capillary refill < 2 secs, no peripheral edema/varicosities Skin: no rash, bruising or lesions. Good turgor. Psych: cooperative and appropriate, alert and oriented x 3, good mood and affect. Musculoskeletal: - Musculoskeletal: - Right Wrist: Tenderness over the ulnar aspect. - Right Hand: Swelling and tenderness at the DIP joint of the index finger consistent with possible tophi. - Neurological: - Right Upper Extremity: Numbness and tingling reported in the ulnar distribution, minimally. Calcific mass still noted on extensor surface of the right elbow/forearm without pain or skin changes. IMAGING: Labs: Uric Acid: 10.7 Imaging: IMPRESSION: No acute fracture or osseous malalignment is identified. The joint spaces are preserved. There is a cluster of nonspecific rounded foci of mineralization in the subcutaneous soft tissues over the dorsal aspect of the proximal forearm. The location appears distinct from the olecranon bursa making gout less likely. Dystrophic calcification or possibly calcinosis cutis are differential considerations. Seafood Farmer: ASHUTOSH Transcribe Date/Time: Sep 19 2023 9:33P Dictated by : AUGUSTO BANERJEE MD This examination was int (more content not included)... Normal [facility] XR HAND 3V PA/LAT/OBL RTon 1 03-27-2024 XR HAND 3V PA/LAT/OBL RT * * *Final Repo rt* * * DATE OF EXAM: Jan 25 2025 10:15AM [id number] [id number] - XR HAND 3V PA/LAT/OBL RT / PROCEDURE REASON: Pain in right wrist * * * * Physician Interpretation * * * * EXAM(s): XR HAND 3V PA/LAT/OBL RT..... HISTORY: 74 years old Clinical information: Pain in right wrist pain in the right wrist/denies specific injury TECHNIQUE: Images: XR HAND 3V PA/LAT/OBL RT Comparison: None. RESULT: Findings: There are extremely severe degenerative changes in the first metacarpal carpal joint with remodeling of the trapezium. Severe narrowing of the radiocarpal joint. There is vascular calcification in the soft tissues. There is narrowing of all interphalangeal joints. No fractures or dislocations are seen. 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 Moderate degenerative changes throughout the remainder of the hand Seafood Farmer: [facility] Transcribe Date/Time: Feb 02 2025 10:49A Dictated by : ISAIAS GRANGER DO This examination was interpreted and the report reviewed and electronically signed by: ISAIAS GRAGNER DO on Feb 02 2025 10:50AM EST [id number] CN Normal [facility] CBC-Complete Blood Cnt No Di ffon 01-19-2025 Erythrocyte distribution width (RBC) [Ratio] 13.0 % Normal 11.6-14.6 [facility] Comment on above: Performed By: #### L 100.0500 #### [facility] [address] [place], [address] Hematocrit (Bld) [Volume fraction] 46.4 % Normal 40-54 [facility] Comment on above: Performed By: #### L 100.0500 #### [facility] [address] [place], [address] Hemoglobin (Bld) [Mass/Vol] 15.9 g/dL Normal 13.0-16.5 [facility] Comment on above: Performed By: #### L 100.0500 #### [facility] [address] [place], [address] MCH (RBC) [Entitic mass] 30.9 pg Normal 27.0-32.0 [facility] Comment on above: Performed By: #### L 100.0500 #### [facility] [address] [place], [address] MCHC (RBC) [Mass/Vol] 34.3 g/dL Normal 32-36 [facility] Comment on above: Performed By: #### L 100.0500 #### [facility] [address] [place], [address] MCV (RBC) [Entitic vol] 90.3 fL Normal 80-94 [facility] Comment on above: Performed By: #### L 100.0500 #### [facility] [address] [place], [address] Platelet mean volume (Bld) [Entitic vol] 9.4 fL Normal 6.2-12.0 [facility] Comment on above: Performed By: #### L 100.0500 #### [facility] [address] [place], [address] Platelets (Bld) [#/Vol] 230 10*3/uL Normal 150-450 [facility] Comment on above: Performed By: #### L 100.0500 #### [facility] [address] [place], [address] RBC (Bld) [#/Vol] 5.14 10*6/uL Normal 4.6-6.2 [facility] Comment on above: Performed By: #### L 100.0500 #### [facility] [address] [place], [address] RDW SD 42.5 fl Normal 35.1-43.9 [facility] Comment on above: Performed By: #### L 100.0500 #### [facility] [address] [place], [address] WBC (Bld) [#/Vol] 6.1 10*3/uL Normal 4.4-11.0 [facility] Comment on above: Performed By: #### L 100.0500 #### [facility] [address] [place], [address] Basic Metabolic Profile (BMP )on 01-15-2025 BUN/CRE 18.2 RATIO Normal - [facility] Comment on above: Order Comment: SEN D BMP AND URIC TO Performed By: #### L 100.0500 #### [facility] [address] [place], [address] Calcium [Mass/Vol] 9.6 mg/dL Normal 7.6-11.0 [facility] Comment on above: Order Comment: SEN D BMP AND URIC TO Performed By: #### L 100.0500 #### [facility] [address] [place], [address] Chloride [Moles/Vol] 102 mmol/L Normal 98-108 [facility] Comment on above: Order Comment: SEN D BMP AND URIC TO Performed By: #### L 100.0500 #### [facility] [address] [place], [address] CO2 [Moles/Vol] 26.2 mmol/L Normal 21.0-32.0 [facility] Comment on above: Order Comment: SEN D BMP AND URIC TO Performed By: #### L 100.0500 #### [facility] [address] [place], [address] Creatinine [Mass/Vol] 1.21 mg/dL High 0.70-1.20 [facility] Comment on above: Order Comment: SEN D BMP AND URIC TO Performed By: #### L 100.0500 #### [facility] [address] [place], [address] GAP 12 Normal 5-15 [facility] Comment on above: Order Comment: SEN D BMP AND URIC TO Performed By: #### L 100.0500 #### [facility] [address] [place], [address] GFR/1.73 sq M.predicted among non-blacks MDRD (S/P/Bld) [Vol rate/Area] 63 mL/min/{1.73_m2} Normal >60 [facility] Comment on above: Order Comment: SEN D BMP AND URIC TO Result Comment: mL/m in/1.73m2 CKD-EPI Creatinine Equation (2020) Performed By: #### L 100.0500 #### [facility] [address] [place], [address] Glucose [Mass/Vol] 112 mg/dL High 70-99 [facility] Comment on above: Order Comment: SEN D BMP AND URIC TO Performed By: #### L 100.0500 #### [facility] [address] [place], [address] Potassium [Moles/Vol] 4.8 mmol/L Normal 3.3-5.1 [facility] Comment on above: Order Comment: SEN D BMP AND URIC TO Result Comment: Hemo lysis present, Results??could be affected. ?? Performed By: #### L 100.0500 #### [facility] [address] [place], [address] Sodium [Moles/Vol] 140 mmol/L Normal 133-145 [facility] Comment on above: Order Comment: SEN D BMP AND URIC TO Performed By: #### L 100.0500 #### [facility] [address] [place], [place], [address] Urea nitrogen [Mass/Vol] 22 mg/dL High 4-19 [facility] Comment on above: Order Comment: SEN D BMP AND URIC TO Performed By: #### L 100.0500 #### [facility] [address] [place], [address] [facility] MIGUELANGEL MOYA ([id number]) 1950 Date Time Provider Department 01/15/25 REGULO STOVER [employer] During your visit today, we recorded the following information about you: Rossi Arevalo RN 01/15/2025 8:23 AM Signed 01/15/25 BMP and BNP results scanned into [facility]OYYO for your review. SHALA Mueller Stacey, RN 01/19/2025 10:18 AM Signed 01/19/25 CBC result scanned into [facility] for your review. Rossi Arevalo RN Allergies As of Date: 01/15/2025 Noted Allergy Reaction METOLAZONE 01/15/2022 2 - Rash ALTACE (RAMIPRIL) 12/29/2004 5 - Intolerance BACTRIM (SULFAMETHOXAZOLE-TR IMETH*08/15/2020 4 - Hives DIOVAN (VALSARTAN) 12/29/2004 PROPOFOL 02/10/2020 14 - Other: See Comments Comments: agitation RAMIPRIL 11/05/2007 SEASONAL ALLERGIES 08/04/2012 14 - Other: See Comments UVXBNEO-PHP-HIC REDUCTASE INHIBIT*06/18/2011 14 - Other: See Comments Comments: Muscle aches Date Reviewed: 01/02/2025 Reviewed by: Radhika Frazier MA - Fully Assessed Reason for Visit: Results [95] Prescriptions as of 01/20/2025 - furosemide (LASIX) 80 mg tablet Take [...] tablet by mouth once daily. - Insulin [place], Disposable, 32 gauge x 5/32 Use with insulin 4 times a day. Dx: E11.40; Z79.4 - blood sugar diagnostic (BLOOD GLUCOSE TEST) test strip Test blood sugar(s) 4-5 times daily Dx: Type 2 DM - Uncontrolled E11.65 Insulin: Yes - BIOTIN ORAL Take 1 tablet by mouth once daily. - Fish Oil-[place]-3 Fatty Acids (FISH OIL [place]ME[place] 3-6-9) 300-1,000 mg CpDR Take 3000 mg daily. - Lancets (ONE TOUCH ULTRASOFT LANCETS) Misc lancets twice daily. Use as instructed ( may dispense Deuca brand) - MULTIVITAMIN TAB Take one(1) tablet daily. - VITAMIN C 1,000 MG TAB Take one(1) tablet daily. Problem List As Of Date 01/15/2025 Noted Resolved GENERAL OSTEOARTHROSIS [M15.9] ESOPHAGEAL REFLUX [K21.9] Venous (peripheral) insufficiency [I87.2] Personal history of contact with and (suspected* 08/19/2014 Type 2 diabetes mellitus with diabetic neuropat* Class 3 severe obesity with body mass index (BM* Nonspecific abnormal results of liver function * 08/19/2014 Other hyperlipidemia [E78.49] Essential hypertension [I10] Diabetic polyneuropathy (HCC) [E11.42] 01/30/2006 04/24/2018 Coronary artery disease of [place] artery of thai*10/07/2007 Persistent atrial fibrillation (HCC) [...] allergic rhinitis [J30.89] 11/30/2020 Uncontrolled diabetes mellitus [NOS9637] 03/15/2021 06/07/2023 Hypertensive heart disease with chronic diastol*05/30/2022 Atherosclerosis of aorta ( (more content not included)... Normal [facility] Pro- Brain NATRIURETIC PEPTI Manisha 01-15-2025 Natriuretic peptide B (Bld) [Mass/Vol] 259 pg/mL Normal <=900 [facility] Comment on above: Order Comment: JUNIE Valdez BMP AND URIC TO Result Comment: Hear t Failure Unlikely: < 300 pg/mL Heart Failure Likely < 50 Years: > 450 pg/mL 50-75 Years: > 900 pg/mL >75 Years: > 1800 pg/mL Performed By: #### L 100.0500 #### [facility] [address] [place], [address] Uric Acidon 01-15-2025 URIC 10.7 mg/dL High 3.5-7.2 [facility] Comment on above: Order Comment: JUNIE Valdez BMP AND URIC TO Result Comment: The drugs N-Acetylcysteine and Metamizole may falsely depress this assay. Performed By: #### L 100.0500 #### [facility] [address] [place], [address] [facility] Tele[facility] (INTMWS) MIGUELANGEL MOYA ([id number]) 1950 M Date Time Provider Department 01/07/25 KRISHNA REYNOLDS INTMWS During your visit today, [...] In Impression IMPRESSION: No acute radiographic abnormality. Seafood Farmer: ASHUTOSH Transcribe Date/Time: Jan 05 2025 3:15P [...] ALLERGIES 08/04/2012 14 - Other: See Comments [id number]-YSQ-LQA REDUCTASE INHIBIT*06/18/2011 14 - Other: See Comments [...] tablet by mouth once daily. - Insulin [place], Disposable, 32 gauge x Use with insulin 4 times a day. Dx: E11.40; Z79.4 - blood sugar diagnostic (BLOOD GLUCOSE TEST) test strip Test blood sugar(s) 4-5 times daily Dx: Type 2 DM - Uncontrolled E11.65 Insulin: Yes - BIOTIN ORAL Take 1 tablet by mouth once daily. - Fish Oil-[place]-3 Fatty Acids (FISH OIL OMEGA 3-6-9) 300-1,000 [...] [E11.42] 01/30/2006 04/24/2018 Coronary artery disease of [place] artery of thai*10/07/2007 Persistent atrial fibrillation (HCC) [I48.19] (more content not included)... [facility] (ALVIN[facility] MIGUELANGEL MOYA ([id number]) 1950 M Date Time Provider Department 01/04/25 [...] discuss. She can be reached back at [phone]. Yoselin Hilario, SHALA 01/07/2025 11:58 AM Signed Called and left VM asking Jessica to call back with update. Xray results: XR CHEST 2V FRONTAL/LAT (01/02/2025 11:57 AM) YAMILETH 08/10/24 NOV 03/22/25 Last Stress Test 10/19/24 SHALA Singh Danelle, SHALA 01/07/2025 1:15 PM Signed Regulo Stover MD [...] Patient gets his lab work completed at [facility]. Orders faxed to [facility] at their request. Patient does have appointment already scheduled with Dr. Sanabria, vascular surgeon, on 01/19/2025. They would like to keep that appointment. She advised that Dr. Reynolds adjusted his aldactone dosage earlier this week. Josefina Ballard MA 01/14/2025 10:54 AM Signed Checked [facility] system for lab results. Nothing has been drawn as of today. BRANDAN Guy Laurie, MA 01/15/2025 4:44 PM Signed Labs drawn today 01/15. Pending. Will check on Saturday. BRANDAN Guy Laurie, MA 01/18/2025 11:16 AM Signed Labs completed at [facility] and are as follows: Scan on 01/18/2025 10:21 AM by Provider, External, PA-C: [facility] BMP and BNP 01/15/2025 Please review and advise. BRANDAN Guy Danelle, RN 01/21/2025 3:55 PM Signed CBC results from [facility] drawn on 01/19/25. EXTERNAL LAB (01/19/2025 10:04 AM) Yoselin Hilario RN Allergies As of Date: 01/04/2025 Noted Allergy Reaction METOLAZONE 01/15/2022 2 - Rash ALTACE (RAMIPRIL) 12/29/2004 5 - Intolerance BACTRIM (SULFAMETHOXAZOLE-TR IMETH*08/15/2020 4 - Hives DIOVAN (VALSARTAN) 12/29/2004 PROPOFOL 02/10/2020 14 - Other: See Comments Comments: agitation RAMIPRIL 11/05/2007 SEASONAL ALLERGIES 08/04/2012 14 - Other: See Comments [id number] REDUCTASE INHIBIT*06/18/2011 14 - Other: See Comments Comments: Muscle aches Date Reviewed: 01/02/2025 Reviewed by: Radhika Frazier MA - Fully Assessed Reason for Visit: Completed Labs from [facility] [Other] Primary Visit Diagnosis:ROBIN (dyspnea on exertion) [R06.09] Other Visit Diagnosis:Chronic diastolic congestive heart failure (HCC) [I50.32] Order(s):BASIC METABOLIC PANEL [SQBMP] Order #: [id number] FUTURE NT PRO BNP [SQNTBNP] Order #: [id number] FUTURE Prescriptions as of 01/21/2025 - furosemide (LASIX) 80 mg tablet Take [...] tablet by mouth once daily. - Insulin [place], Disp (more content not included)... Normal [facility] CNOVon 01-02-2025 CN Office Visit (INTMWS) MIGUELANGEL MOYA ([id number]) 1950 M Date Time Provider Department 01/02/25 10:40 AM KRISHNA REYNOLDS INTMWS During your visit today, we recorded the following information about you: Pulse Respiration Blood pressure Weight 80/minute 16/minute 128/82 132 kg Krishna Reynolds MD 01/02/2025 12:20 PM Signed Subjective Miguelangel George Jojo is a 74 year old male here [...] With Long-Term Current Use of Insulin ([facility]) Class 3 Severe Obesity With Body Mass Index (Bmi) of 45.0 to 49.9 in Adult ([facility]) Other Hyperlipidemia Essential Hypertension Coronary Artery Disease of [place] Artery of [place] Heart With Stable Angina Pectoris Persistent Atrial Fibrillation ([facility]) Memory Disturbance Bph (Benign Prostatic Hyperplasia) History of Partial Amputation of Toe ([facility]) Robin (Dyspnea On Exertion) Statin Intolerance Chronic Diastolic Congestive Heart Failure ([facility]) Valvular Heart Disease Non-Seasonal Allergic Rhinitis Hypertensive Heart Disease With Chronic Diastolic Congestive Heart Failure ([facility]) Atherosclerosis of Aorta Current Outpatient Medications Medication [...] 1 tablet by mouth once daily. Insulin [place], Disposable, 32 gauge x 5/32 Use with insulin 4 times a day. Dx: E11.40; Z79.4 blood sugar diagnostic (BLOOD GLUCOSE TEST) test strip Test blood sugar(s) 4-5 times daily Dx: Type 2 DM - Uncontrolled E11.65 Insulin: Yes BIOTIN ORAL Take 1 tablet by mouth once daily. Fish Oil-[place]-3 Fatty Acids (FISH OIL OMEGA 3-6-9) 300-1,000 [...] tenderness. Musculoskeletal: (more content not included)... Normal [facility] XR CHEST 2V FRONTAL/LATon XR CHEST 2V [...] and L1 IMPRESSION: No acute radiographic abnormality. Seafood Farmer: PSCB Transcribe Date/Time: Jan 05 2025 3:15P Dictated by : HUMZA PEREZ MD This examination was interpreted and the report reviewed and electronically signed by: HUMZA PEREZ MD on Jan 05 2025 3:18PM EST [id number] CN Normal [facility] 12-14-2024 [facility] Telephone (CAWSTR) MIGUELANGEL MOYA ([id number]) 1950 M Date Time Provider Department 12/14/24 REGULO STOVER [facility] During your visit today, we recorded the following information about you: Demi Dewitt LPN 12/14/2024 3:44 PM Signed Patients calling in wondering if you have any recommendations on a vascular surgeon in [place]. Patients requesting a call back. VICTORIA Mcneal [...] ALLERGIES 08/04/2012 14 - Other: See Comments [id number] REDUCTASE INHIBIT*06/18/2011 14 - Other: See Comments Comments: Muscle aches Date Reviewed: 11/30/2024 Reviewed by: Mattie Mckoy RN - Fully Assessed Reason for Visit: Patient Question [3247] Prescriptions as of 01/08/2025 - furosemide (LASIX) [...] tablet by mouth once daily. - Insulin [place], Disposable, 32 gauge x 5/32 Use with insulin 4 times a day. Dx: E11.40; Z79.4 - blood sugar diagnostic (BLOOD GLUCOSE TEST) test strip Test blood sugar(s) 4-5 times daily Dx: Type 2 DM - Uncontrolled E11.65 Insulin: Yes - BIOTIN ORAL Take 1 tablet by mouth once daily. - Fish Oil-[place]-3 Fatty Acids (FISH OIL OMEGA 3-6-9) 300-1,000 [...] [E11.42] 01/30/2006 04/24/2018 Coronary artery disease of [place] artery of thai*10/07/2007 Persistent atrial fibrillation (HCC) [...] allergic rhinitis [J30.89] 11/30/2020 Uncontrolled diabetes mellitus [EMY3942] 03/15/2021 (more content not included)... Normal [facility] Anion gap in Serum or Plasma Ordered By: Krishna Reynolds on 12-02-2024 Anion gap [Moles/Vol] 14 mmol/L 08-06 [facility] BUN/creatinine ratioOrdered By: Krishna Reynolds on 12-02-2024 Urea nitrogen/Creatinine [Mass ratio] 18.8 mg/mg 01-11 [facility] Basic Metabolic Profile (BMP )on 12-02-2024 BUN/CRE 18.8 RATIO Normal 01-11 [facility] Comment on above: Performed By: #### L 500.4100, L500.2500, L501.9985 #### [facility] [address] [place], [address] Calcium [Mass/Vol] 9.4 mg/dL Normal 7.6-11.0 [facility] Comment on above: Performed By: #### L 500.4100, L500.2500, L501.9985 #### [facility] [address] [place], [address] Chloride [Moles/Vol] 102 mmol/L Normal 98-108 [facility] Comment on above: Performed By: #### L 500.4100, L500.2500, L501.9985 #### [facility] [address] [place], [address] CO2 [Moles/Vol] 23.8 mmol/L Normal 21.0-32.0 [facility] Comment on above: Performed By: #### L 500.4100, L500.2500, L501.9985 #### [facility] [address] [place], [address] Creatinine [Mass/Vol] 1.04 mg/dL Normal 0.70-1.20 [facility] Comment on above: Performed By: #### L 500.4100, L500.2500, L501.9985 #### [facility] [address] [place], [address] GAP 14 Normal 5-15 [facility] Comment on above: Performed By: #### L 500.4100, L500.2500, L501.9985 #### [facility] [address] [place], [address] GFR/1.73 sq M.predicted among non-blacks MDRD (S/P/Bld) [Vol rate/Area] 75 mL/min/{1.73_m2} Normal >60 [facility] Comment on above: Result Comment: mL/m in/1.73m2 CKD-EPI Creatinine Equation (2020) Performed By: #### L 500.4100, L500.2500, L501.9985 #### [facility] [address] [place], [address] Glucose [Mass/Vol] 106 mg/dL High 70-99 [facility] Comment on above: Performed By: #### L 500.4100, L500.2500, [id number] #### [facility] [address] [place], [address] Potassium [Moles/Vol] 4.3 mmol/L Normal 3.3-5.1 [facility] Comment on above: Result Comment: Hemo lysis present, Results??could be affected. ?? Performed By: #### L 500.4100, L500.2500, [id number] #### [facility] [address] [place], [address] Sodium [Moles/Vol] 139 mmol/L Normal 133-145 [facility] Comment on above: Performed By: #### L 500.4100, L500.2500, [id number] #### [facility] [address] [place], [address] Urea nitrogen [Mass/Vol] 20 mg/dL High 4-19 [facility] Comment on above: Performed By: #### L 500.4100, L500.2500, L501.9985 #### [facility] [address] [place], [address] Calculated very low density lipoprotein (VLDL) cholesterol measurementOrdered By: Krishna Reynolds on 12-02-2024 Calculated very low density lipoprotein (VLDL) cholesterol measurement 28 mg/dL 5-40 [facility] Carbon dioxide, total [Moles /volume] in Central venous bloodOrdered By: Krishna Reynolds on 12-02-2024 CO2 [Moles/Vol] 23.8 mmol/L 21.0-32.0 [facility] Chloride assayOrdered By: Jennifer Reynolds on 12-02-2024 Chloride [Moles/Vol] 102 mmol/L 98-108 [facility] Glomerular filtration rate ( GFR) estimation/1.73 sq m using serum, plasma, or whole bOrdered By: Krishna Reynolds on 12-02-2024 GFR/1.73 sq M.predicted among non-blacks MDRD (S/P/Bld) [Vol rate/Area] 75 mL/min/{1.73_m2} >60 [facility] Comment on above: mL/min/1.73m2 CKD-EP I Creatinine Equation (2020) Hemoglobin A1con 12-02-2024 HbA1c (Bld) [Mass fraction] 6.4 % High <=5.6 [facility] Comment on above: Result Comment: Norm al < 5.7 % Prediabetic 5.7 - 6.4 % Diabetic >or= 6.5 % Please note range changes. Performed By: #### L 100.0500 #### [facility] [address] [place], [place], [id number] Hemoglobin A1c percentageOrd ered By: Krishna Reynolds on 12-02-2024 HbA1c (Bld) [Mass fraction] 6.4 % High <5.7 [facility] Comment on above: Normal < 5.7 % Predi abetic 5.7 - 6.4 % Diabetic >or= 6.5 % Please note range changes. LDL calc ser/plasOrdered By: Krishna Reynolds on 12-02-2024 Cholesterol in LDL [Mass/Vol] 108 mg/dL [facility] Comment on above: Jfvxqeslxp=965-642 m g/dL & Higher Bzaf=899 mg/dL or greaterFriedwald Equation for LDL-C Lipid Profileon 12-02-2024 CHOL:HDL 4.30 Normal [facility] Comment on above: Performed By: #### L 100.0500 #### [facility] [address] [place], [place], [id number] Cholesterol [Mass/Vol] 176 mg/dL Normal <=200 [facility] Comment on above: Result Comment: Chol esterol level, Desirable <200 mg/dL Borderline high cholesterol 200-239 mg/dL High cholesterol >=240 mg/dL Recommendations of the NCEP Adult Treatment Panel for the following risk-cutoff thresholds for the [place] population. Performed By: #### L 100.0500 #### [facility] [address] [place], [address] Cholesterol in HDL [Mass/Vol] 41 mg/dL Normal [facility] Comment on above: Result Comment: [facility] Cholesterol Education Program (NCEP) guidelines: <40 mg/dL: Low HDL-cholesterol (major risk factor for CHD) >= 60 mg/dL: High HDL-cholesterol (negative risk factor for CHD) HDL-cholesterol is affected by a number of factors, e.g. smoking, exercise, hormones, sex and age. Performed By: #### L 100.0500 #### [facility] [address] [place], [address] Cholesterol in LDL [Mass/Vol] 108 mg/dL Normal [facility] Comment on above: Result Comment: Bord mxbfbp=698-003 mg/dL Higher Dhei=441 mg/dL or greater Friedwald Equation for LDL-C Performed By: #### L 100.0500 #### [facility] [address] [place], [address] Cholesterol in VLDL [Mass/Vol] 28 mg/dL Normal 5-40 [facility] Comment on above: Performed By: #### L 100.0500 #### [facility] [address] [place], [address] Triglyceride [Mass/Vol] 138 mg/dL Normal [facility] Comment on above: Result Comment: The drugs N-Acetylcysteine and Metamizole may falsely depress this assay. Normal range: <150 mg/dL Borderline High: 150-199 mg/dL High: 200-499 mg/dL Very High: >500 mg/dL Performed By: #### L 100.0500 #### [facility] [address] [place], [address] Potassium measurement (mass/ volume)Ordered By: Krishna Reynolds on 12-02-2024 Potassium (Unsp spec) [Mass/Vol] 4.3 mmol/L 3.3-5.1 [facility] Comment on above: Hemolysis present, R esults could be affected. Screening total cholesterol/ high density lipoprotein (HDL) cholesterol ratioOrdered By: Krishna Reynolds on 12-02-2024 Cholesterol.total/Choles terol in HDL [Mass ratio] 4.30 {ratio} [facility] Serum creatinine measurement (mass/volume)Ordered By: Krishna Reynolds on 12-02-2024 Creatinine [Mass/Vol] 1.04 mg/dL 0.70-1.20 [facility] Serum glucose measurement (m ass/volume)Ordered By: Krishna Reynolds on 12-02-2024 Glucose [Mass/Vol] 106 mg/dL High 70-99 [facility] Serum or plasma calcium monroe urement (mass/volume)Ordered By: Krishna Reynolds on 12-02-2024 Calcium [Mass/Vol] 9.4 mg/dL 7.6-11.0 [facility] Serum or plasma cholesterol in HDL measurement (mass/volume)Ordered By: Krishna Reynolds on 12-02-2024 Cholesterol in HDL [Mass/Vol] 41 mg/dL >40 [facility] Comment on above: National Cholesterol Education Program (NCEP) guidelines:<40 mg/dL: Low HDL-cholesterol (major risk factor for CHD)>= 60 mg/dL: High HDL-cholesterol (negative risk factor for CHD)HDL-cholesterol is affected by a number of factors, e.g. smoking, exercise, hormones, sex and age. Serum or plasma cholesterol measurement (mass/volume)Ordered By: Krishna Reynolds on 12-02-2024 Cholesterol [Mass/Vol] 176 mg/dL <201 [facility] Comment on above: Cholesterol level, D esirable <200 mg/dLBorderline high cholesterol 200-239 mg/dLHigh cholesterol >=240 mg/dLRecommendations of the NCEP Adult Treatment Panel for the following risk-cutoff thresholds for the [place] population. Serum or plasma urea nitroge n measurement (mass/volume)Ordered By: Krishna Reynolds on 12-02-2024 Urea nitrogen [Mass/Vol] 20 mg/dL High 4-19 [facility] Sodium levelOrdered By: Justin Reynolds on 12-02-2024 Sodium [Moles/Vol] 139 mmol/L 133-145 [facility] Triglycerides measurementOrd ered By: Krishna Reynolds on 12-02-2024 Triglyceride [Mass/Vol] 138 mg/dL <199 [facility] Comment on above: The drugs N-Acetylcy steine and Metamizole may falsely depress this assay. Normal range: <150 mg/dLBorderline High: 150-199 mg/dLHigh: 200-499 mg/dLVery High: >500 mg/dL CNOVon 11-30-2024 CNOV Office Visit (PODIST) MIGUELANGEL MOYA ([id number]) 1950 M Date Time Provider Department 11/30/24 [...] 1 tablet by mouth once daily. Fish Oil-[place]-3 Fatty Acids (FISH OIL OMEGA 3-6-9) 300-1,000 mg CpDR Take 3000 mg daily. Lancets (ONE TOUCH ULTRASOFT LANCETS) [facility] lancets twice daily. Use as instructed ( may dispense Deuca brand) VITAMIN C 1,000 MG TAB Take one(1) tablet daily. Insulin [place], Disposable, 32 gauge x 5/32 Use with [...] agitation Ramipril Seasonal Allergies Other: See Comments Eapmihm-Rki-Sod Red* Other: See Comments Muscle aches OBJECTIVE: [...] ICD9: 250.60, ICD10: E11.49 (primary diagnosis) 2. [place] or callus - ICD9: 700, ICD10: L84 PLAN: Treatment today consisted of -Exam -Debrided calluses x 4 with #15 blade Continue follow up with endo Continue with diabetic shoes Follow-up (more content not included)... Normal [facility] CNNURSEon 10-19-2024 CNNURSE Nurse Visit (CARDWS) MIGUELANGEL MOYA ([id number]) 1950 M Date Time Provider Department 10/19/24 9:45 AM NURSE CARD WSTR CARDWS During your visit today, we recorded the following information about you: Referring Provider: REGULO STOVER [[id number]] Allergies As of Date: 10/19/2024 Noted Allergy Reaction METOLAZONE 01/15/2022 2 - Rash ALTACE (RAMIPRIL) 12/29/2004 5 - Intolerance BACTRIM (SULFAMETHOXAZOLE-TR IMETH*08/15/2020 4 - Hives DIOVAN (VALSARTAN) 12/29/2004 PROPOFOL 02/10/2020 14 - Other: See Comments Comments: agitation RAMIPRIL 11/05/2007 SEASONAL ALLERGIES 08/04/2012 14 - Other: See Comments PPALVYB-KOL-AXM REDUCTASE INHIBIT*06/18/2011 14 - Other: See Comments Comments: Muscle aches Date Reviewed: 10/16/2024 Reviewed by: Leila Suárez, PEREZ.SHOVEL ENGINEER - Fully Assessed Visit Diagnoses:Coronary artery disease of [place] artery of [place] heart with stable angina pectoris [I25.118] ROBIN [...] Units subcutaneously daily at bedtime. - Insulin [place], Disposable, 32 gauge x 5/32 Use with insulin 4 times a day. Dx: E11.40; Z79.4 - blood sugar diagnostic (BLOOD GLUCOSE TEST) test strip Test blood sugar(s) 4-5 times daily Dx: Type 2 DM - Uncontrolled E11.65 Insulin: Yes - BIOTIN ORAL Take 1 tablet by mouth once daily. - Fish Oil-[place]-3 Fatty Acids (FISH OIL OMEGA 3-6-9) 300-1,000 [...] [E11.42] 01/30/2006 04/24/2018 Coronary artery disease of [place] artery of thai*10/07/2007 Persistent atrial fibrillation (HCC) [...] allergic rhinitis [J30.89] 11/30/2020 Uncontrolled diabetes mellitus [ECZ3869] 03/15/2021 06/07/2023 Hypertensive heart disease with chronic diastol*05/30/2022 Atherosclerosis of aorta (HCC) [I70.0] (more content not included)... Normal [facility] Microalb:Creat Ratio,Random URon 10-19-2024 MALB:CREAT 73.2 mg/g CRE High <30 mg/g CRE [facility] Comment on above: Result Comment: AMENDED REPORT 10/19/242119 MALB:CREAT previously reported as: 732.1 mg/g CRE Performed By: #### L 502.0250 #### [facility] [place], [address] NM CARDIAC PERF STRESS/PHARM on 10-19-2024 NM CARDIAC PERF STRESS/PHARM * * *Final Report* * * DATE OF EXAM: Oct 19 2024 11:30AM WON 0006 - NM CARDIAC PERF STRESS/PHARM / PROCEDURE REASON: multiple diagnoses * * * * Physician Interpretation * * * * Stress Munitions Handler Supervisor Report: [facility] Date of service: 10/19/2024 6:57:04 AM Supervising [...] later. See administered radiotracer and doses below. [facility] Date of service: 10/19/2024 6:57:04 AM Ordering [...] Final * * * Stress ECG Report: [facility] Date of service: 10/19/2024 6:57:04 AM Ordering physician: REGULO STOVER mobile paint specialist: Yoselin Hilario RN Interpreting physician: Regulo [...] 130/78 mmHg. The double product achieved was [id number]. Previous cardiovascular interventions: PCI (2007) PCI (2019) [...] +-----+---+---+---+ +------+ ---------+ ---------+ Stage ST: Lead, Mason, MM Arrhythmias +------+ ---------+ ---------+ 1 Rare PVC (<3/min) +------+ ---------+ ---------+ (more content not included)... Normal [facility] Heart Perfusion W stress and W radionuclide Azam 10-19-2024 * * *Final Report* * * DATE OF EXAM: Oct 19 2024 11:30AM [address] CARDIAC PERF STRESS/PHARM / PROCEDURE REASON: multiple diagnoses * * * * Physician Interpretation * * * * Stress Munitions Handler Supervisor Report: [facility] Date of service: 10/19/2024 6:57:04 AM Supervising [...] later. See administered radiotracer and doses below. [facility] Date of service: 10/19/2024 6:57:04 AM Ordering [...] Final * * * Stress ECG Report: [facility] Date of service: 10/19/2024 6:57:04 AM Ordering physician: REGULO STOVER mobile paint specialist: Yoselin Hilario RN Interpreting physician: Regulo [...] 130/78 mmHg. The double product achieved was [id number]. Previous cardiovascular interventions: PCI (2007) PCI (2019) [...] content not included)... DIVISION OF RADIOLOGY Provider, [facility] [place] - 10/19/2024 * * *Final Report* * * DATE OF EXAM: Oct 19 2024 11:30AM WON 0006 - NM CARDIAC PERF STRESS/PHARM / PROCEDURE REASON: multiple diagnoses * * * * Physician Interpretation * * * * Stress Munitions Handler Supervisor Report: [facility] Date of service: 10/19/2024 6:57:04 AM Supervising [...] later. See administered radiotracer and doses below. [facility] Date of service: 10/19/2024 6:57:04 AM Ordering [...] Final * * * Stress ECG Report: [facility] Date of service: 10/19/2024 6:57:04 AM Ordering physician: REGULO STOVER mobile paint specialist: Yoselin Hilario RN Interpreting physician: Regulo [...] 130/78 mmHg. The double product achieved was [id number]. Previous cardiovascular interventions: PCI (2007) PCI (2019) [...] ST: Lead, S (more content not included)... [facility] Radiology Study observation (narrative) Jane valdez [facility] Heart Perfusion W stress and W radionuclide IVOrdered By: [facility] Provider on 10-19-2024 [facility] Jennifer 10-15-2024 JENNIFER Telephone (INTMWS) MOYAMIGUELANGEL PERRY ([id number]) 1950 M Date Time Provider Department 10/15/24 [...] and phone pt with reply. Leila Suárez APRN.PATRICIA 10/16/2024 6:54 AM Signed Typically the scheduled [...] ALLERGIES 08/04/2012 14 - Other: See Comments DEZKUXV-JHI-NBS REDUCTASE INHIBIT*06/18/2011 14 - Other: See Comments [...] Units subcutaneously daily at bedtime. - Insulin [place], Disposable, 32 gauge x Use with insulin 4 times a day. Dx: E11.40; Z79.4 - blood sugar diagnostic (BLOOD GLUCOSE TEST) test strip Test blood sugar(s) 4-5 times daily Dx: Type 2 DM - Uncontrolled E11.65 Insulin: Yes - BIOTIN ORAL Take 1 tablet by mouth once daily. - Fish Oil-[place]-3 Fatty Acids (FISH OIL OMEGA 3-6-9) 300-1,000 [...] Other hyperli (more content not included)... Normal [facility] CNPN Telephone (CARDWS) MIGUELANGEL MOYA ([id number]) 1950 M Date Time Provider Department 10/15/24 [...] floor at Radiology: [address]; [place] [address] * If you need to cancel or reschedule this test or have any questions regarding this test, please call [phone]. Allergies As of Date: 10/15/2024 Noted Allergy Reaction METOLAZONE 01/15/2022 2 - Rash ALTACE (RAMIPRIL) 12/29/2004 5 - Intolerance BACTRIM (SULFAMETHOXAZOLE-TR IMETH*08/15/2020 4 - Hives LISA (VALSARTAN) 12/29/2004 PROPOFOL 02/10/2020 14 - Other: See Comments Comments: agitation RAMIPRIL 11/05/2007 SEASONAL ALLERGIES 08/04/2012 14 - Other: See Comments [id number]-GKZ-HKV REDUCTASE INHIBIT*06/18/2011 14 - Other: See Comments [...] Units subcutaneously daily at bedtime. - Insulin [place], Disposable, 32 gauge x 5/32 Use with insulin 4 times a day. Dx: E11.40; Z79.4 - blood sugar diagnostic (BLOOD GLUCOSE TEST) test strip Test blood sugar(s) 4-5 times daily Dx: Type 2 DM - Uncontrolled E11.65 Insulin: Yes - BIOTIN ORAL Take 1 tablet by mouth once daily. - Fish Oil-[place]-3 Fatty Acids (FISH OIL OMEGA 3-6-9) 300-1,000 mg CpDR Take 3000 mg daily. - Lancets (ONE TOUCH ULTRASOFT LANCETS) Misc lancets twice daily. Use as instructed ( may dispense Deuca brand) - MULTIVITAMIN TAB Take one(1) tablet daily. - VITAMIN C 1,000 MG TAB Take one(1) tablet daily. Problem List As Of Date 10/15/2024 No (more content not included)... Normal [facility] Anion gap in Serum or Plasma Ordered By: Wood Kraus on 08-12-2024 Anion gap [Moles/Vol] 12 mmol/L 5- [facility] BUN/creatinine ratioOrdered By: Wood Kraus on 08-12-2024 Urea nitrogen/Creatinine [Mass ratio] 20.7 mg/mg High 10- [facility] CBC-Complete Blood Cnt No Di ffon 08-12-2024 Erythrocyte distribution width (RBC) [Ratio] 13.0 % Normal 11.6-14.6 [facility] Comment on above: Performed By: #### L 100.0500, L501.0900, L500.3600 #### [facility] [address] [place], [address] Hematocrit (Bld) [Volume fraction] 44.9 % Normal 40-54 [facility] Comment on above: Performed By: #### L 100.0500, L501.0900, L500.3600 #### [facility] [address] [place], [address] Hemoglobin (Bld) [Mass/Vol] 15.1 g/dL Normal 13.0-16.5 [facility] Comment on above: Performed By: #### L 100.0500, L501.0900, L500.3600 #### [facility] [address] [place], [address] MCH (RBC) [Entitic mass] 30.6 pg Normal 27.0-32.0 [facility] Comment on above: Performed By: #### L 100.0500, L501.0900, L500.3600 #### [facility] [address] [place], [address] MCHC (RBC) [Mass/Vol] 33.6 g/dL Normal 32-36 [facility] Comment on above: Performed By: #### L 100.0500, L501.0900, L500.3600 #### [facility] [address] [place], [address] MCV (RBC) [Entitic vol] 91.1 fL Normal 80-94 [facility] Comment on above: Performed By: #### L 100.0500, L501.0900, L500.3600 #### [facility] [address] [place], [address] Platelet mean volume (Bld) [Entitic vol] 9.1 fL Normal 6.2-12.0 [facility] Comment on above: Performed By: #### L 100.0500, L501.0900, L500.3600 #### [facility] [address] [place], [address] Platelets (Bld) [#/Vol] 261 10*3/uL Normal 150-450 [facility] Comment on above: Performed By: #### L 100.0500, L501.0900, L500.3600 #### [facility] [address] [place], [address] RBC (Bld) [#/Vol] 4.93 10*6/uL Normal 4.6-6.2 [facility] Comment on above: Performed By: #### L 100.0500, L501.0900, L500.3600 #### [facility] [address] [place], [address] RDW SD 43.3 fl Normal 35.1-43.9 [facility] Comment on above: Performed By: #### L 100.0500, L501.0900, L500.3600 #### [facility] [address] [place], [address] WBC (Bld) [#/Vol] 5.4 10*3/uL Normal 4.4-11.0 [facility] Comment on above: Performed By: #### L 100.0500, L501.0900, L500.3600 #### [facility] [address] [place], [address] Carbon dioxide, total [Moles /volume] in Central venous bloodOrdered By: Wood Kraus on 08-12-2024 CO2 [Moles/Vol] 23.6 mmol/L 21.0-32.0 [facility] Chloride assayOrdered By: Dilip Kraus on 08-12-2024 Chloride [Moles/Vol] 99 mmol/L 98-108 [facility] Erythrocyte distribution wid th ratioOrdered By: Wood Kraus on 08-12-2024 Erythrocyte distribution width (RBC) [Ratio] 13.0 % 11.6-14.6 [facility] Erythrocyte distribution wid th standard deviationOrdered By: Wood Kraus on 08-12-2024 Erythrocyte distribution width (RBC) [Ratio] 43.3 fl 35.1-43.9 [facility] Glomerular filtration rate ( GFR) estimation/1.73 sq m using serum, plasma, or whole bOrdered By: Wood Kraus on 08-12-2024 GFR/1.73 sq M.predicted among non-blacks MDRD (S/P/Bld) [Vol rate/Area] 77 mL/min/{1.73_m2} >60 [facility] Comment on above: mL/min/1.73m2 CKD-EP I Creatinine Equation (2020) Hematocrit Auto (Bld) [Volum e fraction]Ordered By: Wood Kraus on 08-12-2024 Hematocrit (Bld) [Volume fraction] 44.9 % 40-54 [facility] Hemoglobin measurementOrdere d By: Wood Kraus on 08-12-2024 Hemoglobin (Bld) [Mass/Vol] 15.1 g/dL 13.0-16.5 [facility] MCV (mean corpuscular volume ) determinationOrdered By: Wood Kraus on 08-12-2024 MCV (RBC) [Entitic vol] 91.1 fL 80-94 [facility] Mean corpuscular hemoglobin (MCH) determinationOrdered By: Wood Kraus on 08-12-2024 MCH (RBC) [Entitic mass] 30.6 pg 27.0-32.0 [facility] Mean corpuscular hemoglobin concentration (MCHC) determinationOrdered By: Wood Kraus on 08-12-2024 MCHC (RBC) [Mass/Vol] 33.6 g/dL 32-36 [facility] Mean platelet volume determi nationOrdered By: Wood Kraus on 08-12-2024 Platelet mean volume (Bld) [Entitic vol] 9.1 fL 6.2-12.0 [facility] Platelet countOrdered By: Dilip Kraus on 08-12-2024 Platelets (Bld) [#/Vol] 261 10*3/uL 150-450 [facility] Potassium measurement (mass/ volume)Ordered By: Wood Kraus on 08-12-2024 Potassium (Unsp spec) [Mass/Vol] 4.4 mmol/L 3.3-5.1 [facility] Comment on above: Hemolysis present, R esults could be affected. Protein+Creatinine Ratio,Uri neon 08-12-2024 PROT:CRE RATIO UNABLE TO CALCULATE Normal 0-200 [facility] Comment on above: Performed By: #### L 100.0500, L501.0900, L500.3600 #### [facility] [address] [place], [place], [id number] PROTEIN,UR.RAN. < 6.0 Normal 0.0-12.0 [facility] Comment on above: Performed By: #### L 100.0500, L501.0900, L500.3600 #### [facility] [address] [place], [address] UR CREAT 46.80 mg/dL Normal 39.00-259.00 [facility] Comment on above: Performed By: #### L 100.0500, L501.0900, L500.3600 #### [facility] [address] [place], [address] RBC Auto (Bld) [#/Vol]Ordere d By: Wood Kraus on 08-12-2024 RBC (Bld) [#/Vol] 4.93 10*6/uL 4.6-6.2 [facility] Random urine creatinine monroe urement (mass/volume)Ordered By: Wood Kraus on 08-12-2024 Creatinine Unsp time (U) [Mass/Vol] 46.80 mg/dL 39.00-259.00 [facility] Renal Profileon 08-12-2024 Albumin [Mass/Vol] 3.8 g/dL Normal 3.4-4.8 [facility] Comment on above: Order Comment: CBC Performed By: #### L 100.0500, L501.0900, L500.3600 #### [facility] [address] [place], [address] BUN/CRE 20.7 RATIO High 10-20 [facility] Comment on above: Order Comment: CBC Performed By: #### L 100.0500, L501.0900, L500.3600 #### [facility] [address] [place], [address] Calcium [Mass/Vol] 9.3 mg/dL Normal 7.6-11.0 [facility] Comment on above: Order Comment: CBC Performed By: #### L 100.0500, L501.0900, L500.3600 #### [facility] [address] [place], [address] Chloride [Moles/Vol] 99 mmol/L Normal 98-108 [facility] Comment on above: Order Comment: CBC Performed By: #### L 100.0500, L501.0900, L500.3600 #### [facility] [address] [place], [address] CO2 [Moles/Vol] 23.6 mmol/L Normal 21.0-32.0 [facility] Comment on above: Order Comment: CBC Performed By: #### L 100.0500, L501.0900, L500.3600 #### [facility] [address] [place], [address] Creatinine [Mass/Vol] 1.02 mg/dL Normal 0.70-1.20 [facility] Comment on above: Order Comment: CBC Performed By: #### L 100.0500, L501.0900, L500.3600 #### [facility] [address] [place], [address] GAP 12 Normal 5-15 [facility] Comment on above: Order Comment: CBC Performed By: #### L 100.0500, L501.0900, L500.3600 #### [facility] [address] [place], [address] GFR/1.73 sq M.predicted among non-blacks MDRD (S/P/Bld) [Vol rate/Area] 77 mL/min/{1.73_m2} Normal >60 [facility] Comment on above: Order Comment: CBC Result Comment: mL/m in/1.73m2 CKD-EPI Creatinine Equation (2020) Performed By: #### L 100.0500, L501.0900, L500.3600 #### [facility] [address] [place], [address] Glucose [Mass/Vol] 140 mg/dL High 70-99 [facility] Comment on above: Order Comment: CBC Performed By: #### L 100.0500, L501.0900, L500.3600 #### [facility] [address] [place], [address] Potassium [Moles/Vol] 4.4 mmol/L Normal 3.3-5.1 [facility] Comment on above: Order Comment: CBC Result Comment: Hemo lysis present, Results??could be affected. ?? Performed By: #### L 100.0500, L501.0900, L500.3600 #### [facility] [address] [place], [address] Sodium [Moles/Vol] 135 mmol/L Normal 133-145 [facility] Comment on above: Order Comment: CBC Performed By: #### L 100.0500, L501.0900, L500.3600 #### [facility] [address] [place], [address] Urea nitrogen [Mass/Vol] 21 mg/dL High 4-19 [facility] Comment on above: Order Comment: CBC Performed By: #### L 100.0500, L501.0900, L500.3600 #### [facility] [address] [place], [address] Serum creatinine measurement (mass/volume)Ordered By: Wood Kraus on 08-12-2024 Creatinine [Mass/Vol] 1.02 mg/dL 0.70-1.20 [facility] Serum glucose measurement (m ass/volume)Ordered By: Wood Kraus on 08-12-2024 Glucose [Mass/Vol] 140 mg/dL High 70-99 [facility] Serum or plasma albumin monroe urement (mass/volume)Ordered By: Wood Kraus on 08-12-2024 Albumin [Mass/Vol] 3.8 g/dL 3.4-4.8 [facility] Serum or plasma calcium monroe urement (mass/volume)Ordered By: Wood Kraus on 08-12-2024 Calcium [Mass/Vol] 9.3 mg/dL 7.6-11.0 [facility] Serum or plasma urea nitroge n measurement (mass/volume)Ordered By: Wood Kraus on 08-12-2024 Urea nitrogen [Mass/Vol] 21 mg/dL High 4-19 [facility] Sodium levelOrdered By: Babatunde Kraus on 08-12-2024 Sodium [Moles/Vol] 135 mmol/L 133-145 [facility] Urine protein measurement (m ass/volume)Ordered By: Wood Kraus on 08-12-2024 Protein (U) [Mass/Vol] mg/dL 0.0-12.0 [facility] Urine protein/creatinine mas s ratioOrdered By: Wood Kraus on 08-12-2024 Protein/Creatinine (U) [Mass ratio] UNABLE TO CALCULATE mg/g CRE 0-200 [facility] White blood cell (WBC) count Ordered By: Wood Kraus on 08-12-2024 WBC (Bld) [#/Vol] 5.4 10*3/uL 4.4-11.0 [facility] CNOVon 08-10-2024 CNOV Office Visit (ALVIN) MIGUELANGEL MOYA ([id number]) 1950 M Date Time Provider Department 08/10/24 8:40 AM REGULO STOVER During your visit today, we recorded the following information about you: Pulse Respiration Blood pressure Weight 80/minute 16/minute 126/64 130.4 kg Height 1.702 m Regulo Stover MD 08/10/2024 8:53 AM Signed [facility] Cardiology ([address]) [address] [facility] [address] OUTPATIENT VISIT DATE 08/10/2024 PRIMARY CARE PHYSICIAN: Krishna Reynolds [address] [place] [address] HISTORY OF PRESENT ILLNESS: Mr. Moya is [...] agitation Ramipril Seasonal Allergies Other: See Comments Ldgjozi-Ymp-Zzb Red* Other: See Comments Muscle aches MEDICATIONS: [...] EC tablet (more content not included)... [facility] MIGUELANGEL MOYA ([id number]) 1950 M Date Time Provider Department 08/10/24 [...] ALLERGIES 08/04/2012 14 - Other: See Comments [id number] REDUCTASE INHIBIT*06/18/2011 14 - Other: See Comments [...] tablet by mouth once daily. - Insulin [place], Disposable, 32 gauge x 5/32 Use with insulin 4 times a day. Dx: E11.40; Z79.4 - blood sugar diagnostic (BLOOD GLUCOSE TEST) test strip Test blood sugar(s) 4-5 times daily Dx: Type 2 DM - Uncontrolled E11.65 Insulin: Yes - BIOTIN ORAL Take 1 tablet by mouth once daily. - Fish Oil-[place]-3 Fatty Acids (FISH OIL OMEGA 3-6-9) 300-1,000 [...] [E11.42] 01/30/2006 04/24/2018 Coronary artery disease of [place] artery of thai*10/07/2007 Persistent atrial fibrillation (HCC) [...] 07/02/2020 Valvula (more content not included)... Normal [facility] Jennifer 08-04-2024 CNPN Telephone (INTMWS) MIGUELANGEL MOYA ([id number]) 1950 M Date Time Provider Department 08/04/24 [...] on covermymed. MIGUELANGEL MOYA (Armijo: [id number]) - [id number] Tresiba FlexTouch (insulin degludec injection) 200 Units/mL solution status: PA Request Created: August 02, 2024 [id number] Sent: August 04, 2024 Agnieszka Khanna LPN 08/04/2024 9:52 AM Signed MIGUELANGEL MOYA (Armijo: [id number]) Rx #: [id number] Tresiba FlexTouch (insulin degludec injection) 200 Units/mL [...] They will order this for pt to fish bait picker. Pharmacy will notified pts spouse. Allergies As of Date: 08/04/2024 Noted Allergy Reaction METOLAZONE 01/15/2022 2 - Rash ALTACE (RAMIPRIL) 12/29/2004 5 - Intolerance BACTRIM (SULFAMETHOXAZOLE-TR IMETH*08/15/2020 4 - Hives DIOVAN (VALSARTAN) 12/29/2004 PROPOFOL 02/10/2020 14 - Other: See Comments Comments: agitation RAMIPRIL 11/05/2007 SEASONAL ALLERGIES 08/04/2012 14 - Other: See Comments [id number]-[id number] REDUCTASE INHIBIT*06/18/2011 14 - Other: See Comments [...] tablet by mouth once daily. - Insulin [place], Disposable, 32 gauge x 5/32 Use with insulin 4 times a day. Dx: E11.40; Z79.4 - blood sugar diagnostic (BLOOD GLUCOSE TEST) test strip Test blood sugar(s) 4-5 times daily Dx: Type 2 DM - Uncontrolled E11.65 Insulin: Yes - BIOTIN ORAL Take 1 tablet by mouth once daily. - Fish Oil-[place]-3 Fatty Acids (FISH OIL OMEGA 3-6-9) 300-1,000 [...] [E11.42] 01/30/2006 04/24/2018 Coronary artery disease of [place] artery of thai*10/07/2007 Persistent atrial fibrillation (HCC) [I48.19] 10/07/2007 JAMES (obstructive sleep apnea) [G47.33] 08/13/2013 08/19/2014 Memory disturbance [ (more content not included)... Normal [facility] CNOVon 06-10-2024 CNOV Office Visit (INTMWS) MIGUELANGEL MOYA ([id number]) 1950 M Date Time Provider Department 06/10/24 8:40 AM KRISHNA REYNOLDS INTMWS During your visit today, we recorded the following information about you: Temperature Pulse Respiration Blood pressure 97.9 degrees 64/minute 18/minute 118/60 Weight Height 129.1 kg 1.708 m Krishna Reynolds MD 06/10/2024 9:54 AM Signed Miguelangel Pattersonman is a 73 year old male here [...] MD as PCP - General Leila Suárez, PEREZ.SHOVEL ENGINEER as Director Digital Catalogue (Internal Medicine) Regulo Stover MD (Cardiology) Arabella [...] With Long-Term Current Use of Insulin ([facility]) Class 3 Severe Obesity With Body Mass Index (Bmi) of 45.0 to 49.9 in Adult (Formerly [facility]) Other Hyperlipidemia Essential Hypertension Coronary Artery Disease of [place] Artery of [place] Heart With Stable Angina Pectoris ([facility]) Persistent Atrial Fibrillation ([facility]) Memory Disturbance Bph (Benign Prostatic Hyperplasia) History of Partial Amputation of Toe ([facility]) Robin (Dyspnea On Exertion) Statin Intolerance Chronic Diastolic Congestive Heart Failure ([facility]) Valvular Heart Disease Non-Seasonal Allergic Rhinitis Hypertensive Heart Disease With Chronic Diastolic Congestive Heart Failure ([facility]) Atherosclerosis of Aorta ([facility]) Social History Tobacco Use Smoking status: Never [...] daily. alexis (more content not included)... Normal [facility] Albumin DL <= 20 mg/L (U) [M ass/Vol]Ordered By: Krishna Reynolds on 06-03-2024 Urine Random Microalbumin 123.0 mg/L NO RANGE EST. [facility] Anion gap in Serum or Plasma Ordered By: Krishna Reynolds on 06-03-2024 Anion gap [Moles/Vol] 12 mmol/L 5-15 [facility] BUN/creatinine ratioOrdered By: Krishna Reynolds on 06-03-2024 Urea nitrogen/Creatinine [Mass ratio] 16.3 mg/mg 10-20 [facility] Bilirubin, totalOrdered By: Krishna Reynolds on 06-03-2024 Bilirubin [Mass/Vol] 0.83 mg/dL 0.00-1.30 [facility] Calculated very low density lipoprotein (VLDL) cholesterol measurementOrdered By: Krishna Reynolds on 06-03-2024 Calculated very low density lipoprotein (VLDL) cholesterol measurement 32 mg/dL [facility] VLDL Cholesterol 32 mg/dL [facility] Carbon dioxide, total [Moles /volume] in Central venous bloodOrdered By: Krishna Reynolds on 06-03-2024 CO2 [Moles/Vol] 24.3 mmol/L 21.0-32.0 [facility] Chloride assayOrdered By: Jennifer Reynolds on 06-03-2024 Chloride [Moles/Vol] 102 mmol/L 98-108 [facility] Comprehensive Metabolic Prof ilon 06-03-2024 Albumin [Mass/Vol] 3.9 g/dL Normal 3.4-4.8 [facility] Comment on above: Performed By: #### L 500.4050, L500.4100, L501.9985, L502.0250 #### [facility] [address] [place], [address] Albumin/Globulin [Mass ratio] 1.3 {ratio} Normal 0.9-2.4 [facility] Comment on above: Performed By: #### L 500.4050, L500.4100, L501.9985, L502.0250 #### [facility] [address] [place], [address] ALK PHOS 74 U/L Normal 40-129 [facility] Comment on above: Performed By: #### L 500.4050, L500.4100, L501.9985, L502.0250 #### [facility] [address] [place], [address] ALT [Catalytic activity/Vol] 19 U/L Normal <=46 [facility] Comment on above: Performed By: #### L 500.4050, L500.4100, L501.9985, L502.0250 #### [facility] [address] [place], [address] AST [Catalytic activity/Vol] 29 U/L Normal <=37 [facility] Comment on above: Performed By: #### L 500.4050, L500.4100, L501.9985, L502.0250 #### [facility] [address] [place], [address] Bilirubin [Mass/Vol] 0.83 mg/dL Normal 0.00-1.30 [facility] Comment on above: Performed By: #### L 500.4050, L500.4100, L501.9985, L502.0250 #### [facility] [address] [place], [address] BUN/CRE 16.3 RATIO Normal 10-20 [facility] Comment on above: Performed By: #### L 500.4050, L500.4100, L501.9985, L502.0250 #### [facility] [address] [place], [address] Calcium [Mass/Vol] 9.1 mg/dL Normal 7.6-11.0 [facility] Comment on above: Performed By: #### L 500.4050, L500.4100, L501.9985, L502.0250 #### [facility] [address] [place], [address] Chloride [Moles/Vol] 102 mmol/L Normal 98-108 [facility] Comment on above: Performed By: #### L 500.4050, L500.4100, L501.9985, L502.0250 #### [facility] [address] [place], [address] CO2 [Moles/Vol] 24.3 mmol/L Normal 21.0-32.0 [facility] Comment on above: Performed By: #### L 500.4050, L500.4100, L501.9985, L502.0250 #### [facility] [address] [place], [address] Creatinine [Mass/Vol] 0.94 mg/dL Normal 0.70-1.20 [facility] Comment on above: Performed By: #### L 500.4050, L500.4100, L501.9985, L502.0250 #### [facility] [address] [place], [address] GAP 12 Normal 5-15 [facility] Comment on above: Performed By: #### L 500.4050, L500.4100, L501.9985, L502.0250 #### [facility] [address] [place], [address] GFR/1.73 sq M.predicted among non-blacks MDRD (S/P/Bld) [Vol rate/Area] 85 mL/min/{1.73_m2} Normal >60 [facility] Comment on above: Result Comment: mL/m in/1.73m2 CKD-EPI Creatinine Equation (2020) Performed By: #### L 500.4050, L500.4100, L501.9985, L502.0250 #### [facility] [address] [place], [address] Globulin (S) [Mass/Vol] 2.9 g/dL Normal 2.2-4.2 [facility] Comment on above: Performed By: #### L 500.4050, L500.4100, L501.9985, L502.0250 #### [facility] [address] [place], [address] Glucose [Mass/Vol] 80 mg/dL Normal 70-99 [facility] Comment on above: Performed By: #### L 500.4050, L500.4100, L501.9985, L502.0250 #### [facility] [address] [place], [address] Potassium [Moles/Vol] 4.0 mmol/L Normal 3.3-5.1 [facility] Comment on above: Performed By: #### L 500.4050, L500.4100, L501.9985, L502.0250 #### [facility] [address] [place], [address] Sodium [Moles/Vol] 139 mmol/L Normal 133-145 [facility] Comment on above: Performed By: #### L 500.4050, L500.4100, L501.9985, L502.0250 #### [facility] [address] [place], [address] T PROT 6.8 g/dL Normal 5.9-8.4 [facility] Comment on above: Performed By: #### L 500.4050, L500.4100, L501.9985, L502.0250 #### [facility] [address] [place], [address] Urea nitrogen [Mass/Vol] 15 mg/dL Normal 4-19 [facility] Comment on above: Performed By: #### L 500.4050, L500.4100, L501.9985, L502.0250 #### [facility] [address] [place], [address] Creatinine Unsp time (U) [Ma ss/Vol]Ordered By: Krishna Reynolds on 06-03-2024 Creatinine (U) [Mass/Vol] 168.00 mg/dL 39-259 [facility] GFR/1.73 sq M.predicted umesh g non-blacks MDRD (S/P/Bld) [Vol rate/Area]Ordered By: Krishna Reynolds on 06-03-2024 Estimated GFR (MDRD) Non-Af Amer 85 >60 [facility] Comment on above: mL/min/1.73m2 CKD-EP I Creatinine Equation (2020) Glomerular filtration rate ( GFR) estimation/1.73 sq m using serum, plasma, or whole bOrdered By: Krishna Reynolds on 06-03-2024 GFR/1.73 sq M.predicted among non-blacks MDRD (S/P/Bld) [Vol rate/Area] 85 mL/min/{1.73_m2} >60 [facility] Comment on above: mL/min/1.73m2 CKD-EP I Creatinine Equation (2020) Hemoglobin A1con 06-03-2024 HbA1c (Bld) [Mass fraction] 6.1 % Normal <=5.6 [facility] Comment on above: Performed By: #### L 500.4050, L500.4100, L501.9985, L502.0250 #### [facility] [address] [facility] [address] [place], [place], [address] Hemoglobin A1c percentageOrd ered By: Krishna Reynolds on 06-03-2024 HbA1c (Bld) [Mass fraction] 6.1 % >5.7 [facility] LDL calc ser/plasOrdered By: Krishna Reynolds on 06-03-2024 Cholesterol in LDL [Mass/Vol] 96 mg/dL [facility] Comment on above: Czqaqwyuuz=925-367 m g/dL & Higher Tbai=647 mg/dL or greater LDL Cholesterol, Calculated 96 mg/dL [facility] Comment on above: Unksiezugm=015-696 m g/dL & Higher Mlni=762 mg/dL or greater Laboratory - Chemistry and C hemistry - challengeOrdered By: Krishna Reynolds on 06-03-2024 AST [Catalytic activity/Vol] 29 U/L <38 [facility] Lipid Profileon 06-03-2024 CHOL:HDL 4.00 Normal [facility] Comment on above: Performed By: #### L 500.4050, L500.4100, L501.9985, L502.0250 #### [facility] [address] [place], [address] Cholesterol [Mass/Vol] 171 mg/dL Normal <=200 [facility] Comment on above: Result Comment: Chol esterol level, Desirable <200 mg/dL Borderline high cholesterol 200-239 mg/dL High cholesterol >=240 mg/dL Recommendations of the NCEP Adult Treatment Panel for the following risk-cutoff thresholds for the [place] population. Performed By: #### L 500.4050, L500.4100, L501.9985, L502.0250 #### [facility] [address] [place], [address] Cholesterol in HDL [Mass/Vol] 43 mg/dL Normal [facility] Comment on above: Result Comment: [facility] Cholesterol Education Program (NCEP) guidelines: <40 mg/dL: Low HDL-cholesterol (major risk factor for CHD) >= 60 mg/dL: High HDL-cholesterol (negative risk factor for CHD) HDL-cholesterol is affected by a number of factors, e.g. smoking, exercise, hormones, sex and age. Performed By: #### L 500.4050, L500.4100, L501.9985, L502.0250 #### [facility] [address] [place], [address] Cholesterol in LDL [Mass/Vol] 96 mg/dL Normal [facility] Comment on above: Result Comment: Bord sdaekh=310-307 mg/dL Higher Vuwj=773 mg/dL or greater Performed By: #### L 500.4050, L500.4100, L501.9985, L502.0250 #### [facility] [address] [place], [address] Cholesterol in VLDL [Mass/Vol] 32 mg/dL Normal 5-40 [facility] Comment on above: Performed By: #### L 500.4050, L500.4100, L501.9985, L502.0250 #### [facility] [address] [place], [address] Triglyceride [Mass/Vol] 161 mg/dL Normal [facility] Comment on above: Result Comment: The drugs N-Acetylcysteine and Metamizole may falsely depress this assay. Normal range: <150 mg/dL Borderline High: 150-199 mg/dL High: 200-499 mg/dL Very High: >500 mg/dL Performed By: #### L 500.4050, L500.4100, L501.9985, L502.0250 #### [facility] [address] [place], [address] Microalb:Creat Ratio,Random URon 06-03-2024 MALB:CREAT Normal [facility] Comment on above: Result Comment: WILL REORDER Performed By: #### L 500.4050, L500.4100, L501.9985, L502.0250 #### [facility] [address] [place], [address] MICROALBUMIN,UR Normal NO RANGE EST. [facility] Comment on above: Result Comment: WILL REORDER Performed By: #### L 500.4050, L500.4100, L501.9985, L502.0250 #### [facility] [address] [place], [address] UR CREAT Normal 39-259 [facility] Comment on above: Result Comment: WILL REORDER Performed By: #### L 500.4050, L500.4100, L501.9985, L502.0250 #### [facility] [address] [place], [address] Microalbumin/creat ratio urO rdered By: Krishna Reynolds on 06-03-2024 Urine Microalbumin/Creatinine Ratio 732.1 mg/g CRE [facility] Potassium (Unsp spec) [Mass/ Vol]Ordered By: Krishna Reynolds on 06-03-2024 Potassium [Moles/Vol] 4.0 mmol/L 3.3-5.1 [facility] Potassium measurement (mass/ volume)Ordered By: Krishna Reynolds on 06-03-2024 Potassium (Unsp spec) [Mass/Vol] 4.0 mmol/L 3.3-5.1 [facility] Random urine creatinine monroe urement (mass/volume)Ordered By: Krishna Reynolds on 06-03-2024 Creatinine Unsp time (U) [Mass/Vol] 168.00 mg/dL 39-259 [facility] Screening total cholesterol/ high density lipoprotein (HDL) cholesterol ratioOrdered By: Krishna Reynolds on 06-03-2024 Cholesterol.total/Choles terol in HDL [Mass ratio] 4.00 {ratio} [facility] Serum creatinine measurement (mass/volume)Ordered By: Krishna Reynolds on 06-03-2024 Creatinine [Mass/Vol] 0.94 mg/dL 0.70-1.20 [facility] Serum globulin measurementOr dered By: Krishna Reynolds on 06-03-2024 Globulin (S) [Mass/Vol] 2.9 g/dL 2.2-4.2 [facility] Serum glucose measurement (m ass/volume)Ordered By: Krishna Reynolds on 06-03-2024 Glucose [Mass/Vol] 80 mg/dL 70-99 [facility] Serum or plasma alanine lopez otransferase (ALT) measurementOrdered By: Krishna Reynolds on 06-03-2024 ALT [Catalytic activity/Vol] 19 U/L <47 [facility] Serum or plasma albumin monroe urement (mass/volume)Ordered By: Krishna Reynolds on 06-03-2024 Albumin [Mass/Vol] 3.9 g/dL 3.4-4.8 [facility] Serum or plasma albumin/glob ulin mass ratioOrdered By: Krishna Reynolds on 06-03-2024 Albumin/Globulin [Mass ratio] 1.3 {ratio} 0.9-2.4 [facility] Serum or plasma alkaline neetu sphatase measurementOrdered By: Krishna Reynolds on 06-03-2024 ALP [Catalytic activity/Vol] 74 U/L 40-129 [facility] Serum or plasma calcium monroe urement (mass/volume)Ordered By: Krishna Reynolds on 03-12-2025 Calcium [Mass/Vol] 9.1 mg/dL 7.6-11.0 [facility] Serum or plasma cholesterol in HDL measurement (mass/volume)Ordered By: Krishna Reynolds on 06-03-2024 Cholesterol in HDL [Mass/Vol] 43 mg/dL >40 [facility] Comment on above: National Cholesterol Education Program (NCEP) guidelines:<40 mg/dL: Low HDL-cholesterol (major risk factor for CHD)>= 60 mg/dL: High HDL-cholesterol (negative risk factor for CHD)HDL-cholesterol is affected by a number of factors, e.g. smoking, exercise, hormones, sex and age. Serum or plasma cholesterol measurement (mass/volume)Ordered By: Krishna Reynolds on 06-03-2024 Cholesterol [Mass/Vol] 171 mg/dL <201 [facility] Comment on above: Cholesterol level, D esirable <200 mg/dLBorderline high cholesterol 200-239 mg/dLHigh cholesterol >=240 mg/dLRecommendations of the NCEP Adult Treatment Panel for the following risk-cutoff thresholds for the [place] population. Serum or plasma urea nitroge n measurement (mass/volume)Ordered By: Krishna Reynolds on 06-03-2024 Urea nitrogen [Mass/Vol] 15 mg/dL 4-19 [facility] Sodium levelOrdered By: Justin Reynolds on 06-03-2024 Sodium [Moles/Vol] 139 mmol/L 133-145 [facility] Total proteinOrdered By: Philippe Reynolds on 06-03-2024 Protein [Mass/Vol] 6.8 g/dL 5.9-8.4 [facility] Triglycerides measurementOrd ered By: Krishna Reynolds on 06-03-2024 Triglyceride [Mass/Vol] 161 mg/dL <199 [facility] Comment on above: The drugs N-Acetylcy steine and Metamizole may falsely depress this assay. Normal range: <150 mg/dLBorderline High: 150-199 mg/dLHigh: 200-499 mg/dLVery High: >500 mg/dL Urine albumin measurement wi detection limit of 20 mg/L or less (mass/volume)Ordered By: Krishna Reynolds on 03-12-2025 Albumin DL <= 20 mg/L (U) [Mass/Vol] 123.0 mg/L NO RANGE EST. [facility] CNOVon 05-25-2024 CNOV Office Visit (PODIST) MIGUELANGEL MOYA ([id number]) 1950 M Date Time Provider Department 05/25/24 [...] injury (DANIELA) with acute tubular necrosis (ATN) ([facility]) 11/06/2019 CAD (coronary artery disease) 10/07/2007 70% stenosis circumflex 2nd marginal branch. Drug eluting stent done. Diabetic ulcer of toe of left foot associated with type 2 diabetes mellitus ([facility]) 06/21/2020 Esophageal reflux Generalized osteoarthrosis, unspecified site Hydrocele, acquired 07/04/2023 Nephrolithiasis 10/17/2016 NEUROPATHY IN DIABETES 01/30/2006 Nonspecific abnormal results of liver function study Obesity, unspecified AJMES (obstructive sleep apnea) 08/13/2013 declined tx Osteomyelitis of second toe of right foot ([facility]) 09/17/2019 Osteomyelitis of third toe of right foot ([facility]) 09/17/2019 Other and unspecified hyperlipidemia [...] 1 tablet by mouth once daily. Insulin [place], Disposable, 32 gauge x 5/32 Use with [...] 1 tablet by mouth once daily. Fish Oil-[place]-3 Fatty Acids (FISH OIL OMEGA 3-6-9) 300-1,000 [...] agitation Ramipril Seasonal Allergies Other: See Comments Flgcbcr-Jda-Uak Red* Other: See Comments Muscle aches OBJECTIVE: [...] BACTRIM (SULFA (more content not included)... Normal [facility] CNCOon 04-14-2024 CNCO Letter Text Normal [facility] CNPNon 04-14-2024 CNPN Telephone (INTMWS) MIGUELANGEL OMYA ([id number]) 1950 M Date Time Provider Department 04/14/24 KRISHNA REYNOLDS INTMWS During your visit today, we recorded the following information about you: Agnieszka Khanna LPN 04/14/2024 1:29 PM Signed Pt brought in handicap parking request. Pcp completed letter. 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 Allergies As of Date: 04/14/2024 Noted Allergy Reaction METOLAZONE 01/15/2022 2 - Rash ALTACE (RAMIPRIL) 12/29/2004 5 - Intolerance BACTRIM (SULFAMETHOXAZOLE-TR IMETH*08/15/2020 4 - Hives DIOVAN (VALSARTAN) 12/29/2004 PROPOFOL 02/10/2020 14 - Other: See Comments Comments: agitation RAMIPRIL 11/05/2007 SEASONAL ALLERGIES 08/04/2012 14 - Other: See Comments PXUESSZ-HOW-SNP REDUCTASE INHIBIT*06/18/2011 14 - Other: See Comments [...] tablet by mouth once daily. - Insulin [place], Disposable, 32 gauge x 5/32 Use with [...] tablet by mouth once daily. - Fish Oil-[place]-3 Fatty Acids (FISH OIL OMEGA 3-6-9) 300-1,000 [...] [E11.42] 01/30/2006 04/24/2018 Coronary artery disease of [place] artery of thai*10/07/2007 Persistent atrial fibrillation (HCC) [...] allergic rhinitis [J30.89] 11/30/2020 Uncontrolled diabetes mellitus [BXB0256] 03/15/2021 06/07/2023 Hypertensive heart disease with chronic diastol*05/30/2022 Atherosclerosis of aorta (HCC) [I70.0] 03/11/2023 Hydrocele, acquired [N43.3] 07/04/2023 12/11/19 (more content not included)... Normal [facility] CNOVon 02-10-2024 CNOV Office Visit (INTMWS) MIGUELANGEL MOYA ([id number]) 1950 M Date Time Provider Department 02/10/24 [...] With Long-Term Current Use of Insulin ([facility]) Class 3 Severe Obesity With Body Mass Index (Bmi) of 45.0 to 49.9 in Adult ([facility]) Other Hyperlipidemia Essential Hypertension Coronary Artery Disease of [place] Artery of [place] Heart With Stable Angina Pectoris ([facility]) Persistent Atrial Fibrillation ([facility]) Memory Disturbance Bph (Benign Prostatic Hyperplasia) History of Partial Amputation of Toe ([facility]) Robin (Dyspnea On Exertion) Statin Intolerance Chronic Diastolic Congestive Heart Failure ([facility]) Valvular Heart Disease Non-Seasonal Allergic Rhinitis Hypertensive Heart Disease With Chronic Diastolic Congestive Heart Failure ([facility]) Atherosclerosis of Aorta ([facility]) Social History Tobacco Use Smoking status: Never [...] 1 tablet by mouth once daily. Insulin [place], Disposable, 32 gauge x 5/32 Use with [...] 1 tablet by mouth once daily. Fish Oil-[place]-3 Fatty Acids (FISH OIL OMEGA 3-6-9) 300-1,000 [...] [facility] (more content not included)... [facility] Basophil percentageOrdered B y: Krishna Reynolds on 05-31-2023 Bilirubin [Mass/Vol] 0.70 mg/dL 0.20-1.00 [facility] Comment on above: For patients on eltr ombopag therapy, use of Dimension [place] TBIL is not recommended. Chloride [Moles/Vol] 106 mmol/L 98-107 [facility] Cholesterol [Mass/Vol] 182 mg/dL <200 [facility] Comment on above: <200 mg/dL Desirable 200-240 mg/dL Borderline >240 mg/dL High Risk Glucose [Mass/Vol] 115 mg/dL 74-106 [facility] Comment on above: Fasting Glucose resu lt from 100 to 125 mg/dL suggests IMPAIRED HOMEOSTASIS per A.D.A. criteria. Potassium [Moles/Vol] 4.2 mmol/L 3.5-5.1 [facility] Comment on above: Slight Hemolysis, Re sult may be falsely increased. Protein [Mass/Vol] 7.2 g/dL 6.4-8.2 [facility] Sodium [Moles/Vol] 139 mmol/L 136-145 [facility] Triglyceride [Mass/Vol] 149 mg/dL <199 [facility] Comment on above: The drugs N-Acetylcy steine and Metamizole may falsely depress this assay.Serum Triglycerides Reference Interval Normal <150 mg/dL Borderline high 150 - 199 mg/dL High 200 - 499 mg/dL Very High > or = 500 mg/dL Laboratory - Chemistry and C hemistry - challengeOrdered By: Krishna Reynolds on 05-31-2023 Albumin/Globulin [Mass ratio] 0.8 {ratio} 0.9-2.4 [facility] ALP [Catalytic activity/Vol] 85 U/L 45-117 [facility] ALT [Catalytic activity/Vol] 27 U/L 16-61 [facility] Cholesterol in HDL [Mass/Vol] 43 mg/dL >40 [facility] Comment on above: The drugs N-Acetylcy steine and Metamizole may falsely depress this assay. Reference Range HDL <40 mg/dL Low HDL Cholesterol HDL >or= 60 mg/dL High HDL Cholesterol Cholesterol in LDL [Mass/Vol] 109 mg/dL 0-130 [facility] CO2 [Moles/Vol] 24.0 mmol/L 21.0-32.0 [facility] Globulin (S) [Mass/Vol] 3.9 g/dL 2.2-4.2 [facility] Urea nitrogen/Creatinine [Mass ratio] 14.4 mg/mg 10-20 [facility] No Panel InformationOrdered By: Krishna Reynolds on 05-31-2023 Estimated GFR (MDRD) Amer 90 mL/min >60 [facility] Comment on above: GFR Calc Estimated GFR (MDRD) Non-Af Amer 74 mL/min >60 [facility] Comment on above: Non- GFR Calc VLDL Cholesterol 30 mg/dL 5-40 [facility] Serum or plasma calcium monroe urement (mass/volume)Ordered By: Krishna Reynolds on 05-31-2023 Calcium [Mass/Vol] 9.7 mg/dL 8.5-10.1 [facility] Serum or plasma creatinine m easurement (mass/volume)Ordered By: Krishna Reynolds on 05-31-2023 Creatinine [Mass/Vol] 1.04 mg/dL 0.70-1.30 [facility] Comment on above: The validity of the calculated GFR & GFRAA in patients over 70 years has not been determined. Clinical correlation is essential. Serum or plasma urea nitroge n measurement (mass/volume)Ordered By: Krishna Reynolds on 05-31-2023 Urea nitrogen [Mass/Vol] 15 mg/dL 7-18 [facility] Thin prep Papanicolaou smear with manual screeningOrdered By: Krishna Reynolds on 05-31-2023 Thin prep Papanicolaou smear with manual screening 3.3 g/dL 3.2-5.0 [facility] Thin prep Papanicolaou smear with manual screening 28 U/L 15-37 [facility] Comment on above: Slight Hemolysis, Re sult may be falsely increased. Thin prep Papanicolaou smear with manual screening 9 5-15 [facility] Whole blood hemoglobin A1c/t otal hemoglobin ratio (mass fraction)Ordered By: Krishna Reynolds on 05-31-2023 HbA1c (Bld) [Mass fraction] 5.7 % 3.8-5.6 [facility] Comment on above: Normal < 5.7 % Predi abetic 5.7 - 6.4 % Diabetic >or= 6.5 % Please note range changes. Basophil percentageOrdered B y: Wood Kraus on 02-15-2023 Basophil percentage 3.6 mg/dL 2.5-4.9 [facility] Chloride [Moles/Vol] 105 mmol/L 98-107 [facility] Glucose [Mass/Vol] 75 mg/dL 74-106 [facility] Potassium [Moles/Vol] 4.2 mmol/L 3.5-5.1 [facility] Sodium [Moles/Vol] 138 mmol/L 136-145 [facility] WBC (Bld) [#/Vol] 5.8 10*3/uL 4.4-11.0 [facility] Blood erythrocytes count (nu mber/volume)Ordered By: Wood Kraus on 02-15-2023 RBC (Bld) [#/Vol] 5.17 10*6/uL 4.6-6.2 [facility] Blood hemoglobin measurement (mass/volume)Ordered By: Wood Kraus on 02-15-2023 Hemoglobin (Bld) [Mass/Vol] 15.6 g/dL 13.0-16.5 [facility] Blood platelet mean volumeOr dered By: Wood Kraus on 02-15-2023 Platelet mean volume (Bld) [Entitic vol] 8.6 fL 6.2-12.0 [facility] Determination of erythrocyte mean corpuscular volume (MCV)Ordered By: Wood Kraus on 02-15-2023 MCV (RBC) [Entitic vol] 92.3 fL 80-94 [facility] Hematocrit Auto (Bld) [Volum e fraction]Ordered By: Wood Kraus on 02-15-2023 Hematocrit (Bld) [Volume fraction] 47.7 % 40-54 [facility] Laboratory - Chemistry and C hemistry - challengeOrdered By: Wood Kraus on 02-15-2023 CO2 [Moles/Vol] 27.0 mmol/L 21.0-32.0 [facility] Urea nitrogen/Creatinine [Mass ratio] 14.4 mg/mg 10-20 [facility] Laboratory - Hematology and Cell countsOrdered By: Wood Kraus on 02-15-2023 Erythrocyte distribution width (RBC) [Entitic vol] 46.6 fL 35.1-43.9 [facility] Erythrocyte distribution width (RBC) [Ratio] 13.5 % 11.6-14.6 [facility] MCH (RBC) [Entitic mass] 30.2 pg 27.0-32.0 [facility] MCHC Auto (RBC) [Mass/Vol]Or dered By: Wood Kraus on 02-15-2023 MCHC (RBC) [Mass/Vol] 32.7 g/dL 32-36 [facility] No Panel InformationOrdered By: Wood Kraus on 02-15-2023 Estimated GFR (MDRD) Amer 78 mL/min >60 [facility] Comment on above: GFR Calc Estimated GFR (MDRD) Non-Af Amer 64 mL/min >60 [facility] Comment on above: Non- GFR Calc Parathyroid Hormone (Intact) 152.6 pg/mL 18.4-80.1 [facility] Vitamin D 25-Hydroxy 42.6 ng/mL [facility] Comment on above: Vitamin D 25(OH) Sta tus Range Deficiency <20 ng/mL (50nmol/L) Insufficiency 20 - 30 ng/mL (50 - 75 nmol/L) Sufficiency 30 - 100 ng/mL (75 - 250 nmol/L) Toxicity >100 ng/mL (>250 nmol/L) Platelets bldOrdered By: Gabriel Kraus on 02-15-2023 Platelets (Bld) [#/Vol] 245 10*3/uL 150-450 [facility] Serum or plasma albumin monroe urement (mass/volume)Ordered By: Wood Kraus on 02-15-2023 Albumin [Mass/Vol] 3.2 g/dL 3.2-5.0 [facility] Serum or plasma calcium monroe urement (mass/volume)Ordered By: Wood Kraus on 02-15-2023 Calcium [Mass/Vol] 8.9 mg/dL 8.5-10.1 [facility] Serum or plasma creatinine m easurement (mass/volume)Ordered By: Wood Kraus on 02-15-2023 Creatinine [Mass/Vol] 1.18 mg/dL 0.70-1.30 [facility] Comment on above: The validity of the calculated GFR & GFRAA in patients over 70 years has not been determined. Clinical correlation is essential. Serum or plasma urea nitroge n measurement (mass/volume)Ordered By: Wood Kraus on 02-15-2023 Urea nitrogen [Mass/Vol] 17 mg/dL 7-18 [facility] Urine creatinine measurement (mass/volume)Ordered By: Wood Kraus on 02-15-2023 Creatinine (U) [Mass/Vol] 38.90 mg/dL NO RANGE EST. [facility] Urine protein measurement (m ass/volume)Ordered By: Wood Kraus on 02-15-2023 Protein (U) [Mass/Vol] mg/dL 0.0-11.8 [facility] Urine protein/creatinine mas s ratioOrdered By: Wood Kraus on 02-15-2023 Protein/Creatinine (U) [Mass ratio] TNP [facility] Comment on above: Test not performed Basophil percentageOrdered B y: Krishna Reynolds on 11-30-2022 Chloride [Moles/Vol] 104 mmol/L 98-107 [facility] Cholesterol [Mass/Vol] 225 mg/dL <200 [facility] Comment on above: <200 mg/dL Desirable 200-240 mg/dL Borderline >240 mg/dL High Risk Glucose [Mass/Vol] 107 mg/dL 74-106 [facility] Comment on above: Fasting Glucose resu lt from 100 to 125 mg/dL suggests IMPAIRED HOMEOSTASIS per A.D.A. criteria. Potassium [Moles/Vol] 4.4 mmol/L 3.5-5.1 [facility] Comment on above: Slight Hemolysis, Re sult may be falsely increased. Sodium [Moles/Vol] 138 mmol/L 136-145 [facility] Triglyceride [Mass/Vol] 144 mg/dL <199 [facility] Comment on above: The drugs N-Acetylcy steine and Metamizole may falsely depress this assay.Serum Triglycerides Reference Interval Normal <150 mg/dL Borderline high 150 - 199 mg/dL High 200 - 499 mg/dL Very High > or = 500 mg/dL Laboratory - Chemistry and C hemistry - challengeOrdered By: Krishna Reynolds on 11-30-2022 CO2 [Moles/Vol] 29.0 mmol/L 21.0-32.0 [facility] Urea nitrogen/Creatinine [Mass ratio] 15.2 mg/mg 10-20 [facility] No Panel InformationOrdered By: Krishna Reynolds on 11-30-2022 Estimated GFR (MDRD) Amer 83 mL/min >60 [facility] Comment on above: GFR Calc Estimated GFR (MDRD) Non-Af Amer 68 mL/min >60 [facility] Comment on above: Non- GFR Calc Serum or plasma calcium monroe urement (mass/volume)Ordered By: Krishna Reynolds on 11-30-2022 Calcium [Mass/Vol] 9.0 mg/dL 8.5-10.1 [facility] Serum or plasma cholesterol in HDL measurement (mass/volume)Ordered By: Krishna Reynolds on 11-30-2022 Cholesterol in HDL [Mass/Vol] 42 mg/dL >40 [facility] Comment on above: The drugs N-Acetylcy steine and Metamizole may falsely depress this assay. Reference Range HDL <40 mg/dL Low HDL Cholesterol HDL >or= 60 mg/dL High HDL Cholesterol Serum or plasma cholesterol in VLDL measurement (mass/volume)Ordered By: Krishna Reynolds on 11-30-2022 Cholesterol in VLDL [Mass/Vol] 29 mg/dL 5-40 [facility] Serum or plasma creatinine m easurement (mass/volume)Ordered By: Krishna Reynolds on 11-30-2022 Creatinine [Mass/Vol] 1.12 mg/dL 0.70-1.30 [facility] Comment on above: The validity of the calculated GFR & GFRAA in patients over 70 years has not been determined. Clinical correlation is essential. Serum or plasma low density lipoprotein (LDL) cholesterol measurement (mass/volume)Ordered By: Krishna Reynolds on 11-30-2022 Cholesterol in LDL [Mass/Vol] 154 mg/dL 0-130 [facility] Serum or plasma urea nitroge n measurement (mass/volume)Ordered By: Krishna Reynolds on 11-30-2022 Urea nitrogen [Mass/Vol] 17 mg/dL 7-18 [facility] Thin prep Papanicolaou smear with manual screeningOrdered By: Krishna Reynolds on 11-30-2022 Thin prep Papanicolaou smear with manual screening 5 5-15 [facility] Whole blood hemoglobin A1c/t otal hemoglobin ratio (mass fraction)Ordered By: Krishna Reynolds on 11-30-2022 HbA1c (Bld) [Mass fraction] 5.9 % 3.8-5.6 [facility] Comment on above: Normal < 5.7 % Predi abetic 5.7 - 6.4 % Diabetic >or= 6.5 % Please note range changes. ECHOon 08-27-2022 [facility] LVEF TRANSTHORACIC ECHOon LV Ejection Fraction 61 % [facility] Basophil percentageOrdered B y: Dr. Kraus on 08-17-2022 Basophil percentage 3.8 mg/dL 2.5-4.9 [facility] Chloride [Moles/Vol] 103 mmol/L 98-107 [facility] Glucose [Mass/Vol] 97 mg/dL 74-106 [facility] Potassium [Moles/Vol] 4.1 mmol/L 3.5-5.1 [facility] Sodium [Moles/Vol] 139 mmol/L 136-145 [facility] WBC (Bld) [#/Vol] 5.5 10*3/uL 4.4-11.0 [facility] Blood erythrocytes count (nu mber/volume)Ordered By: Dr. Kraus on 08-17-2022 RBC (Bld) [#/Vol] 5.09 10*6/uL 4.6-6.2 [facility] Blood hemoglobin measurement (mass/volume)Ordered By: Dr. Kraus on 08-17-2022 Hemoglobin (Bld) [Mass/Vol] 15.2 g/dL 13.0-16.5 [facility] Blood platelet mean volumeOr dered By: Dr. Kraus on 08-17-2022 Platelet mean volume (Bld) [Entitic vol] 9.3 fL 6.2-12.0 [facility] Determination of erythrocyte mean corpuscular volume (MCV)Ordered By: Dr. Kraus on 08-17-2022 MCV (RBC) [Entitic vol] 92.1 fL 80-94 [facility] Hematocrit Auto (Bld) [Volum e fraction]Ordered By: Dr. Kraus on 08-17-2022 Hematocrit (Bld) [Volume fraction] 46.9 % 40-54 [facility] Laboratory - Chemistry and C hemistry - challengeOrdered By: Dr. Kraus on 08-17-2022 CO2 [Moles/Vol] 31.0 mmol/L 21.0-32.0 [facility] Urea nitrogen/Creatinine [Mass ratio] 15.3 mg/mg 10-20 [facility] Laboratory - Hematology and Cell countsOrdered By: Dr. Kraus on 08-17-2022 Erythrocyte distribution width (RBC) [Entitic vol] 45.6 fL 35.1-43.9 [facility] Erythrocyte distribution width (RBC) [Ratio] 13.4 % 11.6-14.6 [facility] MCH (RBC) [Entitic mass] 29.9 pg 27.0-32.0 [facility] MCHC Auto (RBC) [Mass/Vol]Or dered By: Dr. Kraus on 08-17-2022 MCHC (RBC) [Mass/Vol] 32.4 g/dL 32-36 [facility] No Panel InformationOrdered By: Dr. Kraus on 08-17-2022 Estimated GFR (MDRD) Amer 69 mL/min >60 [facility] Comment on above: GFR Calc Estimated GFR (MDRD) Non-Af Amer 57 mL/min >60 [facility] Comment on above: Non- GFR Calc Parathyroid Hormone (Intact) 206.5 pg/mL 18.4-80.1 [facility] Vitamin D 25-Hydroxy 39.2 ng/mL [facility] Comment on above: Vitamin D 25(OH) Sta tus Range Deficiency <20 ng/mL (50nmol/L) Insufficiency 20 - 30 ng/mL (50 - 75 nmol/L) Sufficiency 30 - 100 ng/mL (75 - 250 nmol/L) Toxicity >100 ng/mL (>250 nmol/L) Platelets bldOrdered By: Dr. Kraus on 08-17-2022 Platelets (Bld) [#/Vol] 250 10*3/uL 150-450 [facility] Serum or plasma albumin monroe urement (mass/volume)Ordered By: Dr. Kraus on 08-17-2022 Albumin [Mass/Vol] 3.3 g/dL 3.2-5.0 [facility] Serum or plasma calcium monroe urement (mass/volume)Ordered By: Dr. Kraus on 08-17-2022 Calcium [Mass/Vol] 8.9 mg/dL 8.5-10.1 [facility] Serum or plasma creatinine m easurement (mass/volume)Ordered By: Dr. Kraus on 08-17-2022 Creatinine [Mass/Vol] 1.31 mg/dL 0.70-1.30 [facility] Comment on above: The validity of the calculated GFR & GFRAA in patients over 70 years has not been determined. Clinical correlation is essential. Serum or plasma urea nitroge n measurement (mass/volume)Ordered By: Dr. Kraus on 08-17-2022 Urea nitrogen [Mass/Vol] 20 mg/dL 7-18 [facility] Urine creatinine measurement (mass/volume)Ordered By: Dr. Kraus on 08-17-2022 Creatinine (U) [Mass/Vol] 54.90 mg/dL NO RANGE EST. [facility] Urine protein measurement (m ass/volume)Ordered By: Dr. Kraus on 08-17-2022 Protein (U) [Mass/Vol] 8.1 mg/dL 0.0-11.8 [facility] Urine protein/creatinine mas s ratioOrdered By: Dr. Kraus on 08-17-2022 Protein/Creatinine (U) [Mass ratio] 148 mg/g CRE 0-200 [facility] Basophil percentageOrdered B y: Leila Older on 05-25-2022 Bilirubin [Mass/Vol] 0.90 mg/dL 0.20-1.00 [facility] Comment on above: For patients on eltr ombopag therapy, use of Dimension [place] TBIL is not recommended. Chloride [Moles/Vol] 100 mmol/L 98-107 [facility] Cholesterol [Mass/Vol] 251 mg/dL <200 [facility] Comment on above: <200 mg/dL Desirable 200-240 mg/dL Borderline >240 mg/dL High Risk Glucose [Mass/Vol] 82 mg/dL 74-106 [facility] Potassium [Moles/Vol] 4.3 mmol/L 3.5-5.1 [facility] Comment on above: Moderate Hemolysis, Result may be falsely increased. Protein [Mass/Vol] 7.3 g/dL 6.4-8.2 [facility] Sodium [Moles/Vol] 138 mmol/L 136-145 [facility] Triglyceride [Mass/Vol] 145 mg/dL <199 [facility] Comment on above: The drugs N-Acetylcy steine and Metamizole may falsely depress this assay.Serum Triglycerides Reference Interval Normal <150 mg/dL Borderline high 150 - 199 mg/dL High 200 - 499 mg/dL Very High > or = 500 mg/dL WBC (Bld) [#/Vol] 5.2 10*3/uL 4.4-11.0 [facility] Blood erythrocytes count (nu mber/volume)Ordered By: Leila Russell on 05-25-2022 RBC (Bld) [#/Vol] 4.91 10*6/uL 4.6-6.2 [facility] Blood hemoglobin measurement (mass/volume)Ordered By: Leila Russell on 05-25-2022 Hemoglobin (Bld) [Mass/Vol] 14.7 g/dL 13.0-16.5 [facility] Blood platelet mean volumeOr dered By: Leila Russell on 05-25-2022 Platelet mean volume (Bld) [Entitic vol] 9.2 fL 6.2-12.0 [facility] Determination of erythrocyte mean corpuscular volume (MCV)Ordered By: Leila Russell on 05-25-2022 MCV (RBC) [Entitic vol] 91.6 fL 80-94 [facility] Hematocrit Auto (Bld) [Volum e fraction]Ordered By: Leila Russell on 05-25-2022 Hematocrit (Bld) [Volume fraction] 45.0 % 40-54 [facility] Laboratory - Chemistry and C hemistry - challengeOrdered By: Leila Russell on 05-25-2022 ALP [Catalytic activity/Vol] 74 U/L 45-117 [facility] ALT [Catalytic activity/Vol] 24 U/L 16-61 [facility] CO2 [Moles/Vol] 31.0 mmol/L 21.0-32.0 [facility] Globulin (S) [Mass/Vol] 3.9 g/dL 2.2-4.2 [facility] Urea nitrogen/Creatinine [Mass ratio] 15.2 mg/mg 10-20 [facility] Laboratory - Hematology and Cell countsOrdered By: Leila Older on 05-25-2022 Erythrocyte distribution width (RBC) [Entitic vol] 43.6 fL 35.1-43.9 [facility] Erythrocyte distribution width (RBC) [Ratio] 13.1 % 11.6-14.6 [facility] MCH (RBC) [Entitic mass] 29.9 pg 27.0-32.0 [facility] MCHC Auto (RBC) [Mass/Vol]Or dered By: Leila Older on 05-25-2022 MCHC (RBC) [Mass/Vol] 32.7 g/dL 32-36 [facility] No Panel InformationOrdered By: Leila Older on 05-25-2022 Estimated GFR (MDRD) Amer 83 mL/min >60 [facility] Comment on above: GFR Calc Estimated GFR (MDRD) Non-Af Amer 69 mL/min >60 [facility] Comment on above: Non- GFR Calc Urine Microalbumin/Creatinine Ratio 21.5 mg/g CRE <30 [facility] Platelets bldOrdered By: Leila Older on 05-25-2022 Platelets (Bld) [#/Vol] 235 10*3/uL 150-450 [facility] Serum or plasma albumin monroe urement (mass/volume)Ordered By: Leila Older on 05-25-2022 Albumin [Mass/Vol] 3.4 g/dL 3.2-5.0 [facility] Serum or plasma albumin/glob ulin mass ratioOrdered By: Leila Older on 05-25-2022 Albumin/Globulin [Mass ratio] 0.9 {ratio} 0.9-2.4 [facility] Serum or plasma calcium monroe urement (mass/volume)[facility]: [facility] Calcium [Mass/Vol] 9.6 mg/dL 8.5-10.1 [facility] Serum or plasma cholesterol in HDL measurement (mass/volume)[facility]: [facility] Cholesterol in HDL [Mass/Vol] 42 mg/dL >40 [facility] Comment on above: The drugs N-Acetylcy steine and Metamizole may falsely depress this assay. Reference Range HDL <40 mg/dL Low HDL Cholesterol HDL >or= 60 mg/dL High HDL Cholesterol Serum or plasma cholesterol in VLDL measurement (mass/volume)Ordered By: [facility] on 05-25-2022 Cholesterol in VLDL [Mass/Vol] 29 mg/dL 5-40 [facility] Serum or plasma creatinine m easurement (mass/volume)Ordered By: Leila [facility] on 05-25-2022 Creatinine [Mass/Vol] 1.12 mg/dL 0.70-1.30 [facility] Comment on above: The validity of the calculated GFR & GFRAA in patients over 70 years has not been determined. Clinical correlation is essential. Serum or plasma low density lipoprotein (LDL) cholesterol measurement (mass/volume)Ordered By: [facility] on 05-25-2022 Cholesterol in LDL [Mass/Vol] 180 mg/dL 0-130 [facility] Serum or plasma urea nitroge n measurement (mass/volume)Ordered By: [facility] 05-25-2022 Urea nitrogen [Mass/Vol] 17 mg/dL 7-18 [facility] Thin prep Papanicolaou smear with manual screeningOrdered By: [facility] 05-25-2022 Thin prep Papanicolaou smear with manual screening 37 U/L 15-37 [facility] Comment on above: Moderate Hemolysis, Result may be falsely increased. Thin prep Papanicolaou smear with manual screening 7 5-15 [facility] Thin prep Papanicolaou smear with manual screening 32.0 mg/L NO RANGE EST. [facility] Urine creatinine measurement (mass/volume)[facility]: [facility] Creatinine (U) [Mass/Vol] 149.00 mg/dL NO RANGE EST. [facility] Whole blood hemoglobin A1c/t otal hemoglobin ratio (mass fraction)Ordered By: Leila Russell on 05-25-2022 HbA1c (Bld) [Mass fraction] 5.8 % 3.8-5.6 [facility] Comment on above: Normal < 5.7 % Predi abetic 5.7 - 6.4 % Diabetic >or= 6.5 % Please note range changes. Basophil percentageOrdered B y: Dr. Kraus on 02-20-2022 Chloride [Moles/Vol] 100 mmol/L 98-107 [facility] Glucose [Mass/Vol] 78 mg/dL 74-106 [facility] Potassium [Moles/Vol] 4.1 mmol/L 3.5-5.1 [facility] Sodium [Moles/Vol] 138 mmol/L 136-145 [facility] Laboratory - Chemistry and C hemistry - challengeOrdered By: Dr. Kraus on 02-20-2022 CO2 [Moles/Vol] 31.0 mmol/L 21.0-32.0 [facility] Urea nitrogen/Creatinine [Mass ratio] 16.5 mg/mg 10-20 [facility] No Panel InformationOrdered By: Dr. Kraus on 02-20-2022 Estimated GFR (MDRD) Amer 81 mL/min >60 [facility] Comment on above: GFR Calc Estimated GFR (MDRD) Non-Af Amer 67 mL/min >60 [facility] Comment on above: Non- GFR Calc Serum or plasma calcium monroe urement (mass/volume)Ordered By: Dr. Kraus on 02-20-2022 Calcium [Mass/Vol] 8.6 mg/dL 8.5-10.1 [facility] Serum or plasma creatinine m easurement (mass/volume)Ordered By: Dr. Kraus on 02-20-2022 Creatinine [Mass/Vol] 1.15 mg/dL 0.70-1.30 [facility] Comment on above: The validity of the calculated GFR & GFRAA in patients over 70 years has not been determined. Clinical correlation is essential. Serum or plasma urea nitroge n measurement (mass/volume)Ordered By: Dr. Kraus on 02-20-2022 Urea nitrogen [Mass/Vol] 19 mg/dL 7-18 [facility] Thin prep Papanicolaou smear with manual screeningOrdered By: Dr. Kraus on 02-20-2022 Thin prep Papanicolaou smear with manual screening 7 5-15 [facility] Urine creatinine measurement (mass/volume)Ordered By: Dr. Kraus on 02-20-2022 Creatinine (U) [Mass/Vol] 68.10 mg/dL NO RANGE EST. [facility] Urine protein measurement (m ass/volume)Ordered By: Dr. Kraus on 02-20-2022 Protein (U) [Mass/Vol] 8.5 mg/dL 0.0-11.8 [facility] Urine protein/creatinine mas s ratioOrdered By: Dr. Kraus on 02-20-2022 Protein/Creatinine (U) [Mass ratio] 125 mg/g CRE 0-200 [facility] Basophil percentageon 2021 Chloride [Moles/Vol] 102 mmol/L 98-107 [facility] Work Phone: Glucose [Mass/Vol] 81 mg/dL 74-106 [facility] Work Phone: Potassium [Moles/Vol] 4.3 mmol/L 3.5-5.1 [facility] Work Phone: Sodium [Moles/Vol] 138 mmol/L 136-145 [facility] Work Phone: Laboratory - Chemistry and C hemistry - challengeon 01-12-2022 CO2 [Moles/Vol] 32.0 mmol/L 21.0-32.0 [facility] Work Phone: Urea nitrogen/Creatinine [Mass ratio] 17.5 mg/mg 10- [facility] Work Phone: No Panel Informationon 01-12 Estimated GFR (MDRD) Amer 77 mL/min >60 [facility] Work Phone: Comment on above: GFR Calc Estimated GFR (MDRD) Non-Af Amer 63 mL/min >60 [facility] Work Phone: Comment on above: Non- GFR Calc Serum or plasma calcium monroe urement (mass/volume)on 01-12-2022 Calcium [Mass/Vol] 9.2 mg/dL 8.5-10.1 [facility] Work Phone: Serum or plasma creatinine m easurement (mass/volume)on 01-12-2022 Creatinine [Mass/Vol] 1.20 mg/dL 0.70-1.30 [facility] Work Phone: Comment on above: The validity of the calculated GFR & GFRAA in patients over 70 years has not been determined. Clinical correlation is essential. Serum or plasma urea nitroge n measurement (mass/volume)on 01-12-2022 Urea nitrogen [Mass/Vol] 21 mg/dL 7-18 [facility] Work Phone: Thin prep Papanicolaou smear with manual screeningon 01-12-2022 Thin prep Papanicolaou smear with manual screening 4 5-15 [facility] Work Phone: Whole blood hemoglobin A1c/t otal hemoglobin ratio (mass fraction)on 01-12-2022 HbA1c (Bld) [Mass fraction] 6.3 % 3.8-5.6 [facility] Work Phone: Comment on above: Normal < 5.7 % Predi abetic 5.7 - 6.4 % Diabetic >or= 6.5 % Please note range changes. Basophil percentageon 2021 Chloride [Moles/Vol] 102 mmol/L 98-107 [facility] Work Phone: Cholesterol [Mass/Vol] 282 mg/dL <200 [facility] Work Phone: Comment on above: <200 mg/dL Desirable 200-240 mg/dL Borderline >240 mg/dL High Risk Glucose [Mass/Vol] 145 mg/dL 74-106 [facility] Work Phone: Comment on above: Fasting Glucose resu lt greater than or equal to 126 mg/dL suggests DIABETES MELLITUS per A.D.A. criteria. Potassium [Moles/Vol] 4.3 mmol/L 3.5-5.1 [facility] Work Phone: Sodium [Moles/Vol] 137 mmol/L 136-145 [facility] Work Phone: Triglyceride [Mass/Vol] 181 mg/dL <199 [facility] Work Phone: Comment on above: The drugs N-Acetylcy steine and Metamizole may falsely depress this assay.Serum Triglycerides Reference Interval Normal <150 mg/dL Borderline high 150 - 199 mg/dL High 200 - 499 mg/dL Very High > or = 500 mg/dL Laboratory - Chemistry and C hemistry - challengeon 08-23-2021 CO2 [Moles/Vol] 28.0 mmol/L 21.0-32.0 [facility] Work Phone: Urea nitrogen/Creatinine [Mass ratio] 26.3 mg/mg 10-20 [facility] Work Phone: No Panel Informationon 08-23 Estimated GFR (MDRD) Amer 78 mL/min >60 [facility] Work Phone: Comment on above: GFR Calc Estimated GFR (MDRD) Non-Af Amer 65 mL/min >60 [facility] Work Phone: Comment on above: Non- GFR Calc Serum or plasma calcium monroe urement (mass/volume)on 08-23-2021 Calcium [Mass/Vol] 9.3 mg/dL 8.5-10.1 [facility] Work Phone: Serum or plasma cholesterol in HDL measurement (mass/volume)on 08-23-2021 Cholesterol in HDL [Mass/Vol] 43 mg/dL >40 [facility] Work Phone: Comment on above: The drugs N-Acetylcy steine and Metamizole may falsely depress this assay. Reference Range HDL <40 mg/dL Low HDL Cholesterol HDL >or= 60 mg/dL High HDL Cholesterol Serum or plasma cholesterol in VLDL measurement (mass/volume)on 08-23-2021 Cholesterol in VLDL [Mass/Vol] 36 mg/dL 5-40 [facility] Work Phone: [phone] Serum or plasma creatinine m easurement (mass/volume)on 08-23-2021 Creatinine [Mass/Vol] 1.18 mg/dL 0.70-1.30 [facility] Work Phone: Comment on above: The validity of the calculated GFR & GFRAA in patients over 70 years has not been determined. Clinical correlation is essential. Serum or plasma low density lipoprotein (LDL) cholesterol measurement (mass/volume)on 08-23-2021 Cholesterol in LDL [Mass/Vol] 203 mg/dL 0-130 [facility] Work Phone: Serum or plasma urea nitroge n measurement (mass/volume)on 08-23-2021 Urea nitrogen [Mass/Vol] 31 mg/dL 7-18 [facility] Work Phone: Thin prep Papanicolaou smear with manual screeningon 08-23-2021 Thin prep Papanicolaou smear with manual screening 7 5-15 [facility] Work Phone: Whole blood hemoglobin A1c/t otal hemoglobin ratio (mass fraction)on 08-23-2021 HbA1c (Bld) [Mass fraction] 6.5 % 3.8-5.6 [facility] Work Phone: Comment on above: Normal < 5.7 % Predi abetic 5.7 - 6.4 % Diabetic >or= 6.5 % Please note range changes. Basophil percentageon 2021 Chloride [Moles/Vol] 101 mmol/L 98-107 [facility] Work Phone: Glucose [Mass/Vol] 174 mg/dL 74-106 [facility] Work Phone: Comment on above: Fasting Glucose resu lt greater than or equal to 126 mg/dL suggests DIABETES MELLITUS per A.D.A. criteria. Potassium [Moles/Vol] 4.6 mmol/L 3.5-5.1 [facility] Work Phone: Sodium [Moles/Vol] 135 mmol/L 136-145 [facility] Work Phone: Laboratory - Chemistry and C hemistry - challengeon 08-22-2021 CO2 [Moles/Vol] 27.0 mmol/L 21.0-32.0 [facility] Work Phone: Urea nitrogen/Creatinine [Mass ratio] 22.7 mg/mg 10-20 [facility] Work Phone: No Panel Informationon 08-22 Estimated GFR (MDRD) Amer 69 mL/min >60 [facility] Work Phone: Comment on above: GFR Calc Estimated GFR (MDRD) Non-Af Amer 57 mL/min >60 [facility] Work Phone: Comment on above: Non- GFR Calc Serum or plasma calcium monroe urement (mass/volume)on 08-22-2021 Calcium [Mass/Vol] 9.0 mg/dL 8.5-10.1 [facility] Work Phone: Serum or plasma creatinine m easurement (mass/volume)on 08-22-2021 Creatinine [Mass/Vol] 1.32 mg/dL 0.70-1.30 [facility] Work Phone: Comment on above: The validity of the calculated GFR & GFRAA in patients over 70 years has not been determined. Clinical correlation is essential. Serum or plasma urea nitroge n measurement (mass/volume)on 08-22-2021 Urea nitrogen [Mass/Vol] 30 mg/dL 7-18 [facility] Work Phone: Thin prep Papanicolaou smear with manual screeningon 08-22-2021 Thin prep Papanicolaou smear with manual screening 7 5-15 [facility] Work Phone: [phone] Urine creatinine measurement (mass/volume)on 08-22-2021 Creatinine (U) [Mass/Vol] 46.70 mg/dL NO RANGE EST. [facility] Work Phone: [phone] Urine protein measurement (m ass/volume)on 08-22-2021 Protein (U) [Mass/Vol] mg/dL 0.0-11.8 [facility] Work Phone: Urine protein/creatinine mas s ratioon 08-22-2021 Protein/Creatinine (U) [Mass ratio] TNP [facility] Work Phone: Comment on above: Test not performed Basophil percentageon 2021 Cholesterol [Mass/Vol] 264 mg/dL <200 [facility] Work Phone: Comment on above: <200 mg/dL Desirable 200-240 mg/dL Borderline >240 mg/dL High Risk Triglyceride [Mass/Vol] 275 mg/dL [facility] Work Phone: Comment on above: The drugs N-Acetylcy steine and Metamizole may falsely depress this assay.Serum Triglycerides Reference Interval Normal <150 mg/dL Borderline high 150 - 199 mg/dL High 200 - 499 mg/dL Very High > or = 500 mg/dL Serum or plasma cholesterol in HDL measurement (mass/volume)on 05-18-2021 Cholesterol in HDL [Mass/Vol] 43 mg/dL [facility] Work Phone: Comment on above: The drugs N-Acetylcy steine and Metamizole may falsely depress this assay. Reference Range HDL <40 mg/dL Low HDL Cholesterol HDL >or= 60 mg/dL High HDL Cholesterol Serum or plasma cholesterol in VLDL measurement (mass/volume)on 05-18-2021 Cholesterol in VLDL [Mass/Vol] 55 mg/dL 5-40 [facility] Work Phone: Serum or plasma low density lipoprotein (LDL) cholesterol measurement (mass/volume)on 05-18-2021 Cholesterol in LDL [Mass/Vol] 166 mg/dL 0-130 [facility] Work Phone: Whole blood hemoglobin A1c/t otal hemoglobin ratio (mass fraction)on 05-18-2021 HbA1c (Bld) [Mass fraction] 8.1 % 3.8-5.6 [facility] Work Phone: Comment on above: Normal < 5.7 % Predi abetic 5.7 - 6.4 % Diabetic >or= 6.5 % Please note range changes. 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: [facility] Transcribe Date/Time: Jun 21 2020 1:05P Dictated by : HUMZA PEREZ MD This examination was interpreted and the report reviewed and electronically signed by: HUMZA PEREZ MD on Jun 21 2020 1:08PM EST DIVISION OF RADIOLOGY * * *Final Report* [...] mid thoracic region. DIVISION OF RADIOLOGY Provider, [facility] [place] - 06/21/2020 * * *Final Report* * [...] IMPRESSION IMPRESSION: No acute radiographic abnormality. 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: ASHUTOSH Transcribe Date/Time: Jun 21 2020 1:05P Dictated by : HUMZA PEREZ MD This examination was interpreted and the report reviewed and electronically signed by: HUMZA PEREZ MD on Jun 21 2020 1:08PM EST [facility] Rad[facility] Study [facility] (narrative[facility] Chest PA and LateralOrder ed By: Ccf Provider on 06-21-2020 [facility] CTA ABD/PELV W IVCONon 04-19 CTA ABD/PELV W IVCON Final Report DATE OF EXAM: Apr 19 2020 2:08PM [facility] 0311 - CTA ABD/PELV W IVCON / [...] internal and external iliac arteries. 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 Normal [facility] CTA CHEST (GATED) WO/W IVCON on 04-19-2020 CTA CHEST (GATED) WO/W IVCON Final Report DATE OF EXAM: Apr 19 2020 2:08PM [facility] 0126 - CTA CHEST (GATED) WO/W IVCON [...] internal and external iliac arteries. Short segment gzkz-cb-cgwztuat stenosis involving the proximal left common iliac [...] Proximal tracheobr (more content not included)... Normal [facility] Lab Report: CBC W/Diff, Auto matedon 11-15-2017 Absolute Neut 3.1 X10 3/UL Invalid Interpretation Code 2.0-7.7 [facility] Work Phone: [phone] Basophils/100 WBC Auto (Bld) 0.4 % Invalid Interpretation Code 0-1 [facility] Work Phone: [phone] Eosinophils/100 leukocytes 1.6 % Invalid Interpretation Code 0-5 [facility] Work Phone: [phone] Erythrocyte distribution width Auto Ratio (RBC) 13.7 % Invalid Interpretation Code 11.6-14.6 [facility] Work Phone: [phone] Erythrocytes (RBC) 4.84 10*6/uL Invalid Interpretation Code 4.6-6.2 [facility] Work Phone: [phone] Hematocrit (HCT) 43.4 % Invalid Interpretation Code 40-54 [facility] Phone: [phone] Hemoglobin mass conc (Bld) 13.9 g/dL Invalid Interpretation Code 13.0-16.5 [facility] Phone: [phone] Immature granulocytes/100 WBC (Bld) 0.400 % Invalid Interpretation Code 0.0-0.9 [facility] Phone: [phone] Lymphocytes 1.81 X10 3/UL Invalid Interpretation Code 0.83-4.51 [facility] Phone: [phone] Lymphocytes/100 leukocytes 32.4 % Invalid Interpretation Code 19-41 [facility] Phone: [phone] MCH 28.7 pg Invalid Interpretation Code 27.0-32.0 [facility] Work Phone: [phone] MCHC mass conc (RBC) 32.0 G/GL Invalid Interpretation Code 32-36 [facility] Phone: [phone] MCV 89.7 fL Invalid Interpretation Code 80-94 [facility] Phone: [phone] Monocytes/100 leukocytes 10.4 % High 0-10 [facility] Phone: [phone] Neutrophils/100 WBC Auto (Bld) 54.8 % Invalid Interpretation Code 47-70 [facility] Phone: [phone] Platelets 241 10*3/mm3 Invalid Interpretation Code 150-450 [facility] Phone: [phone] PMV by Willie 9.8 fL Invalid Interpretation Code 6.2-12.0 [facility] Phone: [phone] RDW SD 44.7 fL High 35.1-43.9 [facility] Phone: [phone] WBC (Leukocytes) 5.6 10*3/uL Invalid Interpretation Code 4.4-11.0 [facility] Work Phone: [phone] Lab Report: T4 Total, Thyrox inon 02-06-2017 Thyroxine (T4) 11.1 ug/dL Invalid Interpretation Code 4.5-12.1 [facility] Work Phone: [phone] Lab Report: Thyroid Stim Hor thomas (TSH)on 02-06-2017 Thyroid stimulating hormone (TSH) 1.63 u[iU]/mL Invalid Interpretation Code 0.358-3.74 [facility] Phone: [phone] Office Visiton 02-06-2017 Dietary management education, guidance, and counseling (procedure) yes Invalid Interpretation Code [facility] Phone: [phone] Documentation of current medications (procedure) Done Invalid Interpretation Code [facility] Phone: [phone] Fall risk assessment No Invalid Interpretation Code [facility] Phone: [phone] Smoking cessation education (procedure) yes Invalid Interpretation Code [facility] Phone: [phone] Tobacco use CPHS Current every day smoker Invalid Interpretation Code [facility] Phone: [phone] Replaced Document: [employer] E CG Observationson 02-06-2017 EKG QRS axis 24 deg Invalid Interpretation Code [facility] Phone: [phone] Interpretation Atrial fibrillation ABNORMAL RHYTHM Invalid Interpretation Code [facility] Phone: [phone] P [place] 1 deg Invalid Interpretation Code [facility] Phone: [phone] DC Interval 0 ms Invalid Interpretation Code [facility] Phone: [phone] Pulse (Heart Rate) 101 /min Invalid Interpretation Code [facility] Phone: [phone] QRS Duration 102 ms Invalid Interpretation Code [facility] Work Phone: [phone] QT Interval new path ms Invalid Interpretation Code [facility] Work Phone: [phone] QTc [place] 413 ms Invalid Interpretation Code [facility] Work Phone: [phone] T [place] -1 deg Invalid Interpretation Code [facility] Work Phone: [phone] Replaced Document: Basic Met abolic Profile (BMP)on 12-17-2016 Anion gap 15 mmol/L Invalid Interpretation Code 5-15 [facility] Work Phone: [phone] BUN/Creatinine Ratio 23.2 RATIO High 10-20 [facility] Work Phone: [phone] Calcium 9.0 mg/dL Invalid Interpretation Code 8.5-10.1 [facility] Work Phone: [phone] Chloride 100 mmol/L Invalid Interpretation Code 98-107 [facility] Work Phone: [phone] CO2 22.0 mmol/L Invalid Interpretation Code 21.0-32.0 [facility] Work Phone: [phone] Creatinine 0.99 mg/dL Invalid Interpretation Code 0.70-1.30 [facility] Phone: [phone] eGFR (non-black) 80 mL/min/{1.73_m2} Invalid Interpretation Code >60 [facility] Work Phone: [phone] eGFR (non-black) 97 mL/min/{1.73_m2} Invalid Interpretation Code >60 [facility] Work Phone: [phone] Glucose mass conc 169 mg/dL High 70-110 [facility] Work Phone: [phone] Potassium molar conc 4.6 mmol/L Invalid Interpretation Code 3.5-5.1 [facility] Work Phone: [phone] Sodium 137 mmol/L Invalid Interpretation Code 136-145 [facility] Work Phone: [phone] Urea nitrogen 23 mg/dL High 7-18 [facility] Phone: [phone] Office Visiton 12-03-2016 Dietary management education, guidance, and counseling (procedure) yes Invalid Interpretation Code [facility] Work Phone: [phone] Documentation of current medications (procedure) Done Invalid Interpretation Code [facility] Work Phone: [phone] Fall risk assessment No Invalid Interpretation Code [facility] Work Phone: [phone] Clinical Lists Update: 10-10-2016 Alanine aminotransferase (ALT) 48 U/L Invalid Interpretation Code [facility] Work Phone: [phone] Albumin 4.0 g/dL Invalid Interpretation Code [facility] Work Phone: [phone] Alkaline phosphatase (ALP) 54 U/L Invalid Interpretation Code [facility] Work Phone: [phone] Aspartate aminotransferase (AST) 44 U/L High [facility] Work Phone: [phone] Bilirubin (total) 1.1 mg/dL Invalid Interpretation Code [facility] Work Phone: [phone] Cholesterol 245 mg/dL High [facility] Work Phone: [phone] Cholesterol to HDL Ratio 6.28 {ratio} High [facility] Work Phone: [phone] HDL Cholesterol 39 mg/dL Low [facility] Work Phone: [phone] Hemoglobin A1c/Hemoglobin.total mass fraction (Bld) 5.8 % High [facility] Work Phone: [phone] LDL Cholesterol 171 mg/dL High [facility] Work Phone: [phone] LDL to HDL Ratio 4.38 High [facility] Work Phone: [phone] Protein 7.2 g/dL Invalid Interpretation Code [facility] Work Phone: [phone] Triglyceride 173 mg/dL High [facility] Work Phone: [phone] very low density lipoproteins 35 mg/dL Invalid Interpretation Code [facility] Work Phone: [phone] Clinical Lists Update: 06-08-2016 Erythrocyte distribution width Auto Ratio (RBC) 13.4 % Invalid Interpretation Code [facility] Work Phone: [phone] Erythrocytes (RBC) 5.00 10*6/uL Invalid Interpretation Code [facility] Work Phone: [phone] Hematocrit (HCT) 43.8 % Invalid Interpretation Code [facility] Work Phone: [phone] Hemoglobin mass conc (Bld) 14.5 g/dL Invalid Interpretation Code [facility] Work Phone: [phone] MCH 29.0 pg Invalid Interpretation Code [facility] Work Phone: [phone] MCHC mass conc (RBC) 33.1 g/dL Invalid Interpretation Code [facility] Work Phone: [phone] MCV 87.6 fL Invalid Interpretation Code [facility] Work Phone: [phone] Platelets 260 10*3/mm3 Invalid Interpretation Code [facility] Work Phone: [phone] PMV by Willie 10.4 fL Invalid Interpretation Code [facility] Work Phone: [phone] WBC (Leukocytes) 5.64 10*3/uL Invalid Interpretation Code [facility] Work Phone: [phone]) Clinical Lists Update: 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 raisin separator 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 01-27-2016 Left ventricular Ejection fraction 65 % Invalid Interpretation Code [facility] Work Phone: [phone] Office Visiton 05-23-2015 Tobacco use CPHS Never smoker Invalid Interpretation Code [facility] Work Phone: [phone] Lab Report: Prothrombin Time Fingerstickon 08-31-2014 Prothrombin time (PT) Coag time (PPP) 29.3 s High 11.9-14.4 [facility] Work Phone: [phone] Office Visit: Warfarin Calco n 08-31-2014 INR Coag RelTime (Bld) 2 to 3 Invalid Interpretation Code [facility] Work Phone: [phone] INR Coag RelTime (Bld) Hospital lab Invalid Interpretation Code [facility] Work Phone: [phone] INR Coag RelTime (PPP) 2.6 {INR} Invalid Interpretation Code [facility] Work Phone: [phone] Prothrombin time (PT) Coag time (PPP) 29.3 s Invalid Interpretation Code [facility] Work Phone: [phone] Office Visiton 08-25-2014 Tobacco smoking status NHIS Current Invalid Interpretation Code [facility] Work Phone: [phone] Office Visiton 05-21-2014 cardiac risk group C Invalid Interpretation Code [facility] Work Phone: [phone] General cardiovascular disease 10Y risk [#] Regulo.José Miguel'Ju N/A Invalid Interpretation Code [facility] Work Phone: [phone] Replaced Document: [employer] Observationson 05-21-2014 EKG QRS axis 13 deg Invalid Interpretation Code [facility] Work Phone: [phone] Interpretation Atrial fibrillation -Old inferior infarct. ABNORMAL Invalid Interpretation Code [facility] Work Phone: [phone] P [place] 1 deg Invalid Interpretation Code [facility] Work Phone: [phone] DC Interval 0 ms Invalid Interpretation Code [facility] Work Phone: [phone] Pulse (Heart Rate) 77 /min Invalid Interpretation Code [facility] Work Phone: [phone] QRS Duration 100 ms Invalid Interpretation Code [facility] Work Phone: [phone] QT Interval new path ms Invalid Interpretation Code [facility] Work Phone: [phone] QTc [place] 393 ms Invalid Interpretation Code [facility] Work Phone: [phone] T [place] 29 deg Invalid Interpretation Code [facility] Work Phone: [phone] Office Visit: [facility] 09-22-19 14 Smoking cessation education (procedure) yes Invalid Interpretation Code [facility] Work Phone: [phone] Lab Report: LIVERon 08-07-19 14 Bilirubin (direct) 0.11 mg/dL Normal 0.00-0.30 [facility] Work Phone: [phone] Replaced Document: [employer] Observationson 05-28-2013 Pulse (Heart Rate) 413 ms Invalid Interpretation Code [facility] Work Phone: [phone] Lab Report: PTon 01-05-2013 PTP 33.0 SECONDS Invalid Interpretation Code 11.9-14.4 [facility] Work Phone: [phone] Office Visiton 12-25-2012 Alcoholism counseling (procedure) no Invalid Interpretation Code [facility] Work Phone: [phone] Clinical Lists Update: Prelo raisin separator operator 10-27-2012 Magnesium 1.8 mg/dL Invalid Interpretation Code [facility] Work Phone: [phone] Thyroid stimulating hormone (TSH) 2.29 u[iU]/mL Invalid Interpretation Code [facility] Work Phone: [phone] Vital Signs Date Time Vital Sign Value Performing Clinician Facility 08-10-2024 08:30-0400 Body height 170.2 cm Regulo Stover MD Work Phone: [facility] 08-10-2024 08:30-0400 Body mass index (BMI) [Ratio] 45.01 kg/m2 Regulo Stover MD Work Phone: [facility] 08-10-2024 08:30-0400 Body weight 130.36 kg Regulo Stover MD Work Phone: [facility] 08-10-2024 08:30-0400 Diastolic blood pressure 64 mm[Hg] Regulo Stover MD Work Phone: [facility] 08-10-2024 08:30-0400 Heart rate 80 /min Regulo Stover MD Work Phone: [facility] 08-10-2024 08:30-0400 Respiratory rate 16 /min Regulo Stover MD Work Phone: [facility] 08-10-2024 08:30-0400 SaO2% (BldA) [Mass fraction] 98 % Regulo Stover MD Work Phone: [facility] 08-10-2024 08:30-0400 Systolic blood pressure 126 mm[Hg] Regulo Stover MD Work Phone: [facility] 06-10-2024 08:38-0400 Body height 170.8 cm Krishna Reynolds MD Work Phone: [facility] 06-10-2024 08:38-0400 Body mass index (BMI) [Ratio] 44.25 kg/m2 Krishna Reynolds MD Work Phone: [facility] 06-10-2024 08:38-0400 Body temperature 97.9 [degF] Krishna Reynolds MD Work Phone: [facility] 06-10-2024 08:38-0400 Body weight 129.1 kg Krishna Reynolds MD Work Phone: [facility] 06-10-2024 08:38-0400 Diastolic blood pressure 60 mm[Hg] Krishna Reynolds MD Work Phone: [facility] 06-10-2024 08:38-0400 Heart rate 64 /min Krishna Reynolds MD Work Phone: [facility] 06-10-2024 08:38-0400 Respiratory rate 18 /min Krishna Reynolds MD Work Phone: [facility] 06-10-2024 08:38-0400 Systolic blood pressure 118 mm[Hg] Krishna Reynolds MD Work Phone: [facility] 02-10-2024 18:01-0500 Body mass index (BMI) [Ratio] 43.3 kg/m2 Krishna Reynolds MD Work Phone: [facility] 02-10-2024 18:01-0500 Body temperature 96.91 [degF] Krishna Reynolds MD Work Phone: [facility] 02-10-2024 18:01-0500 Body weight 125.4 kg Krishna Reynolds MD Work Phone: [facility] 02-10-2024 18:01-0500 Diastolic blood pressure 68 mm[Hg] Krishna Reynolds MD Work Phone: [facility] 02-10-2024 18:01-0500 Heart rate 80 /min Krishna Reynolds MD Work Phone: [facility] 02-10-2024 18:01-0500 Respiratory rate 18 /min Krishna Reynolds MD Work Phone: [facility] 02-10-2024 18:01-0500 Systolic blood pressure 122 mm[Hg] Krishna Reynolds MD Work Phone: [facility] 12-11-2023 09:17-0400 Body mass index (BMI) [Ratio] 43.33 kg/m2 Krishna Reynolds MD Work Phone: [facility] 12-11-2023 09:17-0400 Body temperature 97.81 [degF] Krishna Reynolds MD Work Phone: [facility] 12-11-2023 09:17-0400 Body weight 125.5 kg Krishna Reynolds MD Work Phone: [facility] 12-11-2023 09:17-0400 Diastolic blood pressure 70 mm[Hg] Krishna Reynolds MD Work Phone: [facility] 12-11-2023 09:17-0400 Heart rate 80 /min Krishna Reynolds MD Work Phone: [facility] 12-11-2023 09:17-0400 Respiratory rate 16 /min Krishna Reynolds MD Work Phone: [facility] 12-11-2023 09:17-0400 Systolic blood pressure 116 mm[Hg] Krishna Reynolds MD Work Phone: [facility] 11-18-2023 08:34-0400 Body mass index (BMI) [Ratio] 44.01 kg/m2 Regulo Stover MD Work Phone: [facility] 11-18-2023 08:34-0400 Body weight 127.46 kg Regulo Stover MD Work Phone: [facility] 11-18-2023 08:34-0400 Diastolic blood pressure 64 mm[Hg] Regulo Stover MD Work Phone: [facility] 11-18-2023 08:34-0400 Heart rate 81 /min Regulo Stover MD Work Phone: [facility] 11-18-2023 08:34-0400 Respiratory rate 16 /min Regulo Stover MD Work Phone: [facility] 11-18-2023 08:34-0400 SaO2% (BldA) [Mass fraction] 97 % Regulo Stover MD Work Phone: [facility] 11-18-2023 08:34-0400 Systolic blood pressure 118 mm[Hg] Regulo Stover MD Work Phone: [facility] 09-10-2023 11:42-0400 Body mass index (BMI) [Ratio] 44.01 kg/m2 Krishna Reynolds MD Work Phone: [facility] 09-10-2023 11:42-0400 Body temperature 97.2 [degF] Krishna Reynolds MD Work Phone: [facility] 09-10-2023 11:42-0400 Body weight 127.46 kg Krishna Reynolds MD Work Phone: [facility] 09-10-2023 11:42-0400 Diastolic blood pressure 74 mm[Hg] Krishna Reynolds MD Work Phone: [facility] 09-10-2023 11:42-0400 Heart rate 80 /min Krishna Reynolds MD Work Phone: [facility] 09-10-2023 11:42-0400 Respiratory rate 16 /min Krishna Reynolds MD Work Phone: [facility] 09-10-2023 11:42-0400 Systolic blood pressure 116 mm[Hg] Krishna Reynolds MD Work Phone: [facility] 07-04-2023 15:48-0400 Body weight 129.41 kg Krishna Reynolds MD Work Phone: [facility] 07-04-2023 15:48-0400 Diastolic blood pressure 74 mm[Hg] Krishna Reynolds MD Work Phone: [facility] 07-04-2023 15:48-0400 Heart rate 72 /min Krishna Reynolds MD Work Phone: [facility] 07-04-2023 15:48-0400 Respiratory rate 16 /min Krishna Reynolds MD Work Phone: [facility] 07-04-2023 15:48-0400 Systolic blood pressure 120 mm[Hg] Krishna Reynolds MD Work Phone: [facility] 06-07-2023 08:16-0400 Body height 170.2 cm Krishna Reynolds MD Work Phone: [facility] 06-07-2023 08:16-0400 Body weight 129.46 kg Krishna Reynolds MD Work Phone: [facility] 06-07-2023 08:16-0400 Diastolic blood pressure 82 mm[Hg] Krishna Reynolds MD Work Phone: [facility] 06-07-2023 08:16-0400 Heart rate 64 /min Krishna Reynolds MD Work Phone: [facility] 06-07-2023 08:16-0400 Respiratory rate 18 /min Krishna Reynolds MD Work Phone: [facility] 06-07-2023 08:16-0400 Systolic blood pressure 128 mm[Hg] Krishna Reynolds MD Work Phone: [facility] 03-26-2023 10:07-0500 Body mass index (BMI) [Ratio] 46.2 kg/m2 Dr. Krishna Reynolds Work Phone: [facility] 03-26-2023 10:07-0500 Body temperature 95.8 [degF] Dr. Krishna Reynolsd Work Phone: [facility] 03-26-2023 10:07-0500 Diastolic blood pressure 77 mm[Hg] Dr. Krishna Reynolds Work Phone: [facility] 03-26-2023 10:07-0500 Heart rate 96 /min Dr. Krishna Reynolds Work Phone: [facility] 03-26-2023 10:07-0500 Respiratory rate 18 /min Dr. Krishna Reynolds Work Phone: [facility] 03-26-2023 10:07-0500 Systolic blood pressure 137 mm[Hg] Dr. Krishna Reynolds Work Phone: [facility] 03-25-2023 00:27-0500 Body weight 133.[address] Krishna Reynolds Work Phone: 8(596)967-701931 [place] [address] 03-19-2023 10:04-0500 Body height 170.[address] Krishna Reynolds Work Phone: 4(460)023-866706 [place] [address] 03-19-2023 10:04-0500 Body mass index (BMI) [Ratio] 46.2 kg/m2 Dr. Krishna Reynolds Work Phone: 0(006)815-661106 [place] [address] 03-19-2023 10:04-0500 Body temperature 96.5 [degF] Dr. Krishna Reynolds Work Phone: 7(138)337-261406 [place] [address] 03-19-2023 10:04-0500 Body weight 133.[address] Krishna Reynolds Work Phone: 0(184)878-530606 [place] [address] 03-19-2023 10:04-0500 Diastolic blood pressure 69 mm[Hg] Dr. Krishna Reynolds Work Phone: 2(974)431-780106 [place] [address] 03-19-2023 10:04-0500 Heart rate 79 /min Dr. Krishna Reynolds Work Phone: 0(666)162-730706 [place] [address] 03-19-2023 10:04-0500 Systolic blood pressure 123 mm[Hg] Dr. Krishna Reynolds Work Phone: 9(877)308-035206 [place] [address] 02-22-2023 00:11-0500 Body temperature 97 [degF] Dr. Krishna Reynolds Work Phone: 0(963)417-081806 [place] [address] 02-22-2023 00:11-0500 Diastolic blood pressure 75 mm[Hg] Dr. Krishna Reynolds Work Phone: 7(970)532-205506 [place] [address] 02-22-2023 00:11-0500 Heart rate 78 /min Dr. Krishna Reynolds Work Phone: 1(053)432-337306 [place] [address] 02-22-2023 00:11-0500 Respiratory rate 16 /min Dr. Krishna Reynolds Work Phone: 8(959)986-570706 [place] [address] 02-22-2023 00:11-0500 Systolic blood pressure 127 mm[Hg] Dr. Krishna Reynolds Work Phone: 1(607)813-250831 [place] [address] 01-29-2023 09:20-0500 Body temperature 98 [degF] Dr. Krishna Reynolds Work Phone: 8(859)899-662406 [place] [address] 01-29-2023 09:20-0500 Body weight 131.[address] Krishna Reynolds Work Phone: 5(322)195-548706 [place] [address] 01-29-2023 09:20-0500 Diastolic blood pressure 71 mm[Hg] Dr. Krishna Reynolds Work Phone: 1(347)925-348706 [place] [address] 01-29-2023 09:20-0500 Heart rate 80 /min Dr. Krishna Reynolds Work Phone: 9(935)372-385806 [place] [address] 01-29-2023 09:20-0500 Respiratory rate 18 /min Dr. Krishna Reynolds Work Phone: 0(953)307-636306 [place] [address] 01-29-2023 09:20-0500 SaO2% (BldA) [Mass fraction] 95 % Dr. Krishna Reynolds Work Phone: 3(507)015-710806 [place] [address] 01-29-2023 09:20-0500 Systolic blood pressure 121 mm[Hg] Dr. Krishna Reynolds Work Phone: 5(613)408-148806 [place] [address] 01-23-2023 00:15-0400 Body temperature 97 [degF] Dr. Krishna Reynolds Work Phone: 3(604)204-436806 [place] [address] 01-23-2023 00:15-0400 Diastolic blood pressure 75 mm[Hg] Dr. Krishna Reynolds Work Phone: 6(986)293-643506 [place] [address] 01-23-2023 00:15-0400 Heart rate 78 /min Dr. Krishna Reynolds Work Phone: 8(868)833-415706 [place] [address] 01-23-2023 00:15-0400 Respiratory rate 16 /min Dr. Krishna Reynolds Work Phone: 5(546)664-442606 [place] [address] 01-23-2023 00:15-0400 Systolic blood pressure 127 mm[Hg] Dr. Krishna Reynolds Work Phone: 4(861)347-250006 [place] [address] 12-23-2022 00:20-0400 Body temperature 97 [degF] Dr. Krishna Reynolds Work Phone: [facility] 12-23-2022 00:20-0400 Diastolic blood pressure 75 mm[Hg] Dr. Krishna Reynolds Work Phone: [facility] 12-23-2022 00:20-0400 Heart rate 78 /min Dr. Krishna Reynolds Work Phone: [facility] 12-23-2022 00:20-0400 Respiratory rate 16 /min Dr. Krishna Reynolds Work Phone: [facility] 12-23-2022 00:20-0400 Systolic blood pressure 127 mm[Hg] Dr. Krishna Reynolds Work Phone: [facility] 12-07-2022 07:01-0400 Body weight 131.09 kg 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 Work Phone: [facility] 12-07-2022 07:01-0400 Diastolic blood pressure 68 mm[Hg] 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 Work Phone: [facility] 12-07-2022 07:01-0400 Heart rate 87 /min 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 Work Phone: [facility] 12-07-2022 07:01-0400 Respiratory rate 20 /min 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 Work Phone: [facility] 12-07-2022 07:01-0400 SaO2% (BldA) [Mass fraction] 97 % 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 Work Phone: [facility] 12-07-2022 07:01-0400 Systolic blood pressure 112 mm[Hg] 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 Work Phone: [facility] 11-29-2022 13:29-0400 Body mass index (BMI) [Ratio] 46 kg/m2 Dr. Krishna Reynolds Work Phone: [facility] 11-29-2022 13:29-0400 Body temperature 96.5 [degF] Dr. Krishna Reynolds Work Phone: 7(771)790-216531 [place] [address] 11-29-2022 13:29-0400 Diastolic blood pressure 70 mm[Hg] Dr. Krishna Reynolds Work Phone: 7(323)825-976206 [place] [address] 11-29-2022 13:29-0400 Heart rate 77 /min Dr. Krishna Reynolds Work Phone: 4(415)040-326906 [place] [address] 11-29-2022 13:29-0400 Respiratory rate 16 /min Dr. Krishna Reynolds Work Phone: 7(198)217-584506 [place] [address] 11-29-2022 13:29-0400 Systolic blood pressure 128 mm[Hg] Dr. Krishna Reynolds Work Phone: 5(883)237-463106 [place] [address] 11-23-2022 00:28-0400 Body temperature 97 [degF] Dr. Krishna Reynolds Work Phone: 6(344)217-550406 [place] [address] 11-23-2022 00:28-0400 Diastolic blood pressure 75 mm[Hg] Dr. Krishna Reynolds Work Phone: 1(501)249-704906 [place] [address] 11-23-2022 00:28-0400 Heart rate 78 /min Dr. Krishna Reynolds Work Phone: 8(716)800-470706 [place] [address] 11-23-2022 00:28-0400 Respiratory rate 16 /min Dr. Krishna Reynolds Work Phone: 4(175)856-004506 [place] [address] 11-23-2022 00:28-0400 Systolic blood pressure 127 mm[Hg] Dr. Krishna Reynolds Work Phone: 3(214)747-850606 [place] [address] 11-23-2022 00:21-0400 Body weight 133.[address] Krishna Reynolds Work Phone: 5(123)447-146106 [place] [address] 11-22-2022 13:44-0400 Body mass index (BMI) [Ratio] 46 kg/m2 Dr. Krishna Reynolds Work Phone: 6(230)514-005331 [place] [address] 11-22-2022 13:44-0400 Body temperature 97.5 [degF] Dr. Krishna Reynolds Work Phone: 2(564)234-549931 [place] [address] 11-22-2022 13:44-0400 Diastolic blood pressure 69 mm[Hg] Dr. Krishna Reynolds Work Phone: 1(473)646-137306 [place] [address] 11-22-2022 13:44-0400 Heart rate 79 /min Dr. Krishna Reynolds Work Phone: 6(269)822-016706 [place] [address] 11-22-2022 13:44-0400 Respiratory rate 22 /min Dr. Krishna Reynolds Work Phone: 6(275)533-394206 [place] [address] 11-22-2022 13:44-0400 Systolic blood pressure 111 mm[Hg] Dr. Krishna Reynolds Work Phone: 1(866)120-958606 [place] [address] 11-15-2022 13:28-0400 Body temperature 97 [degF] Dr. Krishna Reynolds Work Phone: 6(205)735-531806 [place] [address] 11-15-2022 13:28-0400 Diastolic blood pressure 75 mm[Hg] Dr. Krishna Reynolds Work Phone: 7(713)015-410206 [place] [address] 11-15-2022 13:28-0400 Heart rate 78 /min Dr. Krishna Reynolds Work Phone: 4(589)228-639906 [place] [address] 11-15-2022 13:28-0400 Respiratory rate 16 /min Dr. Krishna Reynolds Work Phone: 7(615)677-190106 [place] [address] 11-15-2022 13:28-0400 Systolic blood pressure 127 mm[Hg] Dr. Krishna Reynolds Work Phone: 5(496)321-081306 [place] [address] 11-02-2022 10:00-0400 Body height 170.[address] Krishna Reynolds Work Phone: 9(852)659-631606 [place] [address] 11-02-2022 10:00-0400 Body weight 133.[address] Krishna Reynolds Work Phone: 0(006)195-396206 [place] [address] 10-01-2022 14:47-0400 Body weight 133.36 kg Krishna Reynolds MD Work Phone: [facility] 10-01-2022 14:47-0400 Diastolic blood pressure 68 mm[Hg] Krishna Reynolds MD Work Phone: [facility] 10-01-2022 14:47-0400 Heart rate 72 /min Krishna Reynolds MD Work Phone: [facility] 10-01-2022 14:47-0400 Respiratory rate 18 /min Krishna Reynolds MD Work Phone: [facility] 10-01-2022 14:47-0400 Systolic blood pressure 130 mm[Hg] Krishna Reynolds MD Work Phone: [facility] 01-26-2022 08:07-0400 Body height 169.5 cm 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 Work Phone: [facility] 01-26-2022 08:07-0400 Body weight 134.72 kg 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 Work Phone: [facility] 01-26-2022 08:07-0400 Diastolic blood pressure 62 mm[Hg] 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 Work Phone: [facility] 01-26-2022 08:07-0400 Heart rate 76 /min 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 Work Phone: [facility] 01-26-2022 08:07-0400 Respiratory rate 20 /min 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 Work Phone: [facility] 01-26-2022 08:07-0400 Systolic blood pressure 103 mm[Hg] 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 Work Phone: [facility] 01-15-2022 15:27-0400 Body weight 134.72 kg Regulo Stover MD Work Phone: [facility] 01-15-2022 15:27-0400 Diastolic blood pressure 68 mm[Hg] Regulo Stover MD Work Phone: [facility] 01-15-2022 15:27-0400 Heart rate 91 /min Regulo Stover MD Work Phone: [facility] 01-15-2022 15:27-0400 SaO2% (BldA) [Mass fraction] 96 % Regulo Stover MD Work Phone: [facility] 01-15-2022 15:27-0400 Systolic blood pressure 118 mm[Hg] Regulo Stover MD Work Phone: [facility] 09-08-2021 10:12-0400 Diastolic blood pressure 68 mm[Hg] Krishna Reynolds MD Work Phone: [facility] 09-08-2021 10:12-0400 Systolic blood pressure 110 mm[Hg] Krishna Reynolds MD Work Phone: [facility] 09-08-2021 09:39-0400 Body height 170.2 cm Krishna Reynolds MD Work Phone: [facility] 09-08-2021 09:39-0400 Body temperature 96.1 [degF] Krishna Reynolds MD Work Phone: [facility] 09-08-2021 09:39-0400 Body weight 135.63 kg Krishna Reynolds MD Work Phone: [facility] 09-08-2021 09:39-0400 Heart rate 79 /min Krishna Reynolds MD Work Phone: [facility] 09-08-2021 09:39-0400 Respiratory rate 18 /min Krishna Reynolds MD Work Phone: [facility] 09-08-2021 09:39-0400 SaO2% (BldA) [Mass fraction] 96 % Krishna Reynolds MD Work Phone: [facility] 02-06-2017 10:34-0500 BMI (Body Mass Index) 41.96 kg/m2 Marva [facility] [employer] [facility] Work Phone: 02-06-2017 10:34-0500 [...] (Body Mass Index) 41.2 kg/m2 Mojgan Sher[facility] [employer] Work Phone: 12-03-2016 09:28-0400 BP Diastolic 80 mm[Hg] Mojgan Obando RN [facility] Work Phone: 12-03-2016 09:28-0400 BP Systolic 164 mm[Hg] Mojgan Obando RN [facility] Work Phone: 12-03-2016 09:28-0400 Height 172.72 cm Mojgan Obando RN [facility] Work Phone: 12-03-2016 09:28-0400 Pulse (Heart Rate) 84 /min [facility] Work Phone: 12-03-2016 09:28-0400 Respiratory Rate 18 /min Mojgan Obando RN [facility] Work Phone: 12-03-2016 09:28-0400 Weight 122.93 kg Mojgan Obando RN [facility] Work Phone: 12-03-2016 09:28-0400 Weight 122.92 kg Mojgan [facility] Work Phone: 02-03-2016 09:18-0500 BSA (Body Surface Area) 2.35 m2 Mojgan Obando RN [facility] Work Phone: 12-25-2012 13:18-0400 Height 172.72 cm Mojgan Obando RN [facility] Work Phone: Encounters Encounter Date Encounter Type Care Provider Facility Start: 02-02-2025 ambulatory Krishna Reynolds Facili ty:[facility] Start: 01-27-2025 ambulatory Krishna Rushi ty:[facility] Start: 01-25-2025 End: 01-25-2025 ambulatory JOE RODRIGUEZ Facility:[facility] Start: 01-21-2025 End: 01-22-2025 ambulatory Krishna Reynolds Facility:[facility] Start: 01-19-2025 End: 01-19-2025 ambulatory Wood Kraus Facility:[facility] Start: 01-15-2025 End: 01-15-2025 ambulatory Regulo Stover Facility:[facility] Start: 01-02-2025 ambulatory KRISHNA REYNOLDS Faci lity:[facility] Start: 01-02-2025 End: 01-02-2025 ambulatory KRISHNA REYNOLDS Facility:[facility] Start: 12-22-2024 End: 12-22-[address] Krishna Reynolds MD Work Phone: -Cardiac Rehab Start: 12-22-2024 End: 12-22-[address] Krishna Reynolds MD -Cardiac Rehab Work Phone: Start: 12-02-2024 End: 12-02-[address] Krishna Reynolds MD Work Phone: -Laboratory Start: 12-02-2024 End: 12-02-[address] 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 Krishna Reynolds MD Work Phone: -Cardiac Rehab Start: 11-19-2024 End: 11-22-[address] Krishna Reynolds MD -Cardiac Rehab Work Phone: Start: 11-04-2024 End: 11-04-2024 Refill Krishna Reynolds MD Work Phone: [facility] [place] Comment on above: Refill Request Start: 10-22-2024 End: 10-22-2024 Follow-up encounter Regulo Stover MD Work Phone: [facility] Cardiology [place] Comment on above: Results Start: 10-22-2024 End: 10-22-[address] Krishna Reynolds MD Work Phone: -Cardiac Rehab Start: 10-22-2024 End: 10-22-[address] 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 Krishna Reynolds MD Work Phone: -Cardiac Rehab Start: 09-17-2024 End: 09-21-[address] Krishna Reynolds MD -Cardiac Rehab Work Phone: Start: 08-24-2024 End: 08-24-2024 Refill Krishna Reynolds MD Work Phone: [facility] Comment on above: Refill Request Start: 08-20-2024 End: 08-22-[address] Krishna Reynolds MD Work Phone: [facility] Work Phone: Start: 08-20-2024 End: 08-22-[address] Krishna Reynolds MD -Cardiac Rehab Work Phone: Start: 08-18-[address] Krishna smith MD -Cardiac Rehab Work Phone: Start: 08-12-2024 End: 08-12-[address] Krishna Reynolds MD Work Phone: [facility] Work Phone: Start: 08-12-2024 End: 08-12-[address] 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 (Primary Dx); Chronic diastolic congestive heart failure (HCC); Atherosclerosis of aorta; Persistent atrial fibrillation (HCC); Essential hypertension; Other hyperlipidemia; Statin intolerance; ROBIN (dyspnea on exertion) Start: 08-10-2024 End: 08-10-2024 ambulatory REGULO STOVER Facility:[facility] Start: 08-04-2024 End: 08-04-2024 Telephone encounter Krishna Reynolds MD Work Phone: Internal Medicine [place] Comment on above: Insurance Authorizat ion Start: 07-21-2024 End: 2024 ambulatory Krishna Reynolds Facility:[facility] Start: 07-21-2024 End: [address] Krishna Reynolds MD -Cardiac Rehab Work Phone: Start: 06-18-2024 End: 06-22-[address] Krishna Reynolds MD Work Phone: [facility] Work Phone: Start: 06-18-2024 End: 06-22-[address] Krishna Reynolds MD -Cardiac Rehab Work Phone: Start: 06-11-[address] Krishna smith MD -Cardiac Rehab Work Phone: Start: 06-10-2024 End: 06-10-2024 ambulatory KRISHNA REYNOLDS Facility:[facility] Start: 06-10-2024 End: 06-10-2024 Patient encounter procedure Krishna Reynolds MD Work Phone: Internal Medicine [place] Comment on above: Medicare annual well ness [...] (HCC); Essential hypertension; 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); Persistent atrial fibrillation (HCC); Venous (peripheral) insufficiency; Other hyperlipidemia Start: 06-03-2024 End: 06-03-[address] Krishna Reynolds MD Work Phone: [facility] Work Phone: Start: 06-03-2024 End: 06-03-[address] 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 Krishna Reynolds MD -Cardiac Rehab Work Phone: Start: 04-30-2024 End: 04-30-2024 Refill Krishna Reynolds MD Work Phone: Internal Medicine [place] Start: 04-23-2024 End: 04-24-2024 ambulatory Krishna Reynolds Facility:[facility] Start: 04-23-2024 End: 04-24-[address] Krishna Reynolds MD -Cardiac Rehab Work Phone: Start: 04-14-2024 End: 04-14-2024 Telephone encounter Krishna Reynolds MD Work Phone: [facility] [place] Comment on above: Letter Start: 04-04-2024 ambulatory Krishna Reynolds Facili ty:[facility] Start: 03-24-2024 End: 03-24-2024 ambulatory Krishna Reynolds Facility:[facility] Start: 03-24-2024 End: 03-24-[address] Krishna Reynolds MD -Cardiac Rehab Work Phone: Start: 03-07-2024 End: 03-09-2024 Refill Krishna Reynolds MD Work Phone: [facility] Comment on above: Refill Request Start: 02-18-2024 End: 02-22-2024 ambulatory Krishna Reynolds Facility:[facility] Start: 02-18-2024 End: 02-22-[address] Krishna Reynolds MD -Cardiac Rehab Work Phone: Start: 02-10-2024 End: 02-10-2024 ambulatory KRISHNA REYNOLDS Facility:[facility] Start: 02-10-2024 End: 02-10-2024 Office outpatient visit 15 minutes Krishna Reynolds MD Work Phone: [facility] [place] Comment on above: Type 2 diabetes che[place]ne itus with diabetic neuropathy, with long- term current use of insulin (HCC) (Primary Dx) Start: 01-06-2024 End: 01-23-2024 Telephone encounter Regulo Stover MD Work Phone: [address] [place] [place] [address] Comment on above: Patient Question; Me dication Problem Start: 12-16-2023 End: 12-16-2023 Patient encounter procedure [facility] Provider [facility] Department Start: 12-12-2023 End: 12-12-2023 Telephone encounter Krishna Reynolds MD Work Phone: Internal Medicine [place] Comment on above: FMLA Paperwork Start: 12-11-2023 End: 12-11-2023 Office outpatient visit 25 minutes Krishna Reynolds MD Work Phone: Internal Medicine [place] Comment on above: Type 2 diabetes cheyanne itus with diabetic neuropathy, with long- term current use of insulin (HCC) (Primary Dx); Coronary artery disease involving greenville heart without angina pectoris, unspecified vessel or lesion type; Chronic diastolic congestive heart failure (HCC); Essential hypertension; Screening for depression; Encounter for screening examination for other mental health and behavioral disorders Start: 12-02-2023 End: 12-03-2023 Telephone encounter Regulo Stover MD Work Phone: Cardiology Comment on above: Patient Update Start: 11-20-2023 End: 11-20-2023 Refill Krishna Reynolds MD Work Phone: Internal Medicine [place] Comment on above: Refill Request Start: 11-18-2023 End: 11-18-2023 Office outpatient visit 15 minutes Arabella Heredia DPM Work Phone: Podiatry Comment on above: DM (diabetes mellitu s), 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); Corns and callosities Start: 11-18-2023 End: 11-18-2023 Patient encounter procedure Regulo Stover MD Work Phone: Cardiology Comment on above: 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) (Primary Dx); Chronic diastolic congestive heart failure (HCC); Persistent atrial fibrillation (HCC); Essential hypertension; Other hyperlipidemia; Class 3 severe obesity due to excess calories with serious comorbidity and body mass index (BMI) of 45.0 to 49.9 in adult (HCC); Statin intolerance; Atherosclerosis of aorta (HCC) Start: 09-16-2023 End: 09-16-2023 Patient encounter procedure Kaila MONTGOMERY-C Work Phone: Orthopaedics Comment on above: Elbow mass, right Start: 09-16-2023 End: 09-16-2023 Subsequent hospital visit by physician Karime [facility] [place] Quinones Work Phone: Radiology Comment on above: Right elbow pain [M2 5.521] Start: 09-11-2023 Orders Only Kaila wilson PA-C Work Phone: Orthopaedics Comment on above: Right elbow pain (Pr imary Dx) Start: 09-10-2023 End: 09-10-2023 Patient encounter procedure Krishna Reynolds MD Work Phone: Internal Medicine [place] Comment on above: Elbow mass, right (P rimary Dx); Essential hypertension Start: 07-29-2023 Telephone encounter Krishna abernathy MD Work Phone: Internal Medicine [place] Comment on above: Appointment Start: 07-25-2023 Telephone encounter Krishna abernathy MD Work Phone: Internal Medicine [place] Start: 07-23-2023 End: 07-23-2023 ambulatory [facility] Work Phone: Start: 07-23-2023 End: 07-23-2023 Discharged Recurring [facility] Work Phone: Start: 2023 End: 2023 Subsequent hospital visit by physician [facility] Work Phone: Radiology Comment on above: Hydrocele, acquired [N43.3] Start: 07-04-2023 End: 07-04-2023 Patient encounter procedure Krishna Reynolds MD Work Phone: Internal Medicine [place] Comment on above: Hydrocele, acquired (Primary Dx); Other hyperlipidemia Start: 06-26-2023 Telephone encounter Krishna abernathy MD Work Phone: Internal Medicine [place] Comment on above: Orders Start: 06-20-2023 End: 06-23-2023 ambulatory [facility] Work Phone: Start: 06-20-2023 End: 06-23-2023 Discharged Recurring [facility] Work Phone: Start: 06-13-2023 Refill Krishna ivy MD Work Phone: Internal Medicine [place] Comment on above: Refill Request Start: 06-07-2023 End: 06-07-2023 Patient encounter procedure Krishna Reynolds MD Work Phone: Internal Medicine [place] Comment on above: Medicare annual well ness visit, subsequent (Primary Dx); 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); Other hyperlipidemia; Statin intolerance; Atherosclerosis of aorta (HCC); Essential hypertension; Type 2 diabetes mellitus with diabetic neuropathy, with long-term current use of insulin (HCC); Chronic diastolic congestive heart failure (HCC); Persistent atrial fibrillation (HCC) Start: 06-04-2023 Registered Recurring [facility] Work Phone: Start: 05-31-2023 End: 05-31-2023 ambulatory [facility] Work Phone: Start: 05-31-2023 End: 05-31-2023 Patient encounter procedure [facility] Work Phone: Start: 05-23-2023 End: 05-23-[address] Krishna Reynolds Work Phone: [facility] Work Phone: Start: 05-23-2023 End: 05-23-[address] Krishna Reynolds Work Phone: [facility] Work Phone: Start: 05-22-2023 Telephone encounter Krishna abernathy MD Work Phone: Internal Medicine [place] Start: 04-23-2023 End: 04-24-[address] Krishna Reynolds Work Phone: [facility] Work Phone: Start: 03-26-2023 End: 03-26-[address] Krishna Reynolds Work Phone: [facility] Work Phone: Start: 03-26-2023 End: 03-26-[address] Krishna Reynolds Work Phone: [facility] Work Phone: Start: 03-26-[address] Tres Reynolds Work Phone: [facility] Work Phone: Start: 03-21-2023 End: 03-24-[address] Krishna Reynolds Work Phone: [facility] Work Phone: Start: 03-21-2023 End: 03-24-[address] Krishna Reynolds Work Phone: [facility] Work Phone: Start: 03-19-2023 End: 03-24-[address] Krishna Reynolds Work Phone: [facility] Work Phone: Start: 03-19-[address] Tres Reynolds Work Phone: [facility] Work Phone: Start: 03-13-2023 Refill Regulo ríos MD Work Phone: [facility] Delivery Comment on above: Refill Request Start: 02-21-2023 End: 02-21-[address] Krishna Reynolds Work Phone: [facility] Work Phone: Start: 02-21-2023 End: 02-21-[address] Krishna Reynolds Work Phone: [facility] Work Phone: Start: 02-19-[address] Tres Reynolds Work Phone: [facility] Work Phone: Start: 02-15-2023 End: 02-15-[address] Krishna Reynolds Work Phone: [facility] Work Phone: Start: 02-15-2023 End: 02-15-[address] Krishna Reynolds Work Phone: [facility] Work Phone: Start: 01-29-2023 End: 01-29-[address] Krishna Reynolds Work Phone: [facility] Work Phone: Start: 01-22-2023 End: 01-22-[address] Krishna Reynolds Work Phone: [facility] Work Phone: Start: 01-22-2023 End: 01-22-[address] Krishna Reynolds Work Phone: [facility] Work Phone: Start: 01-14-2023 ambulatory [facility] Longo [facility] Comment on above: Population Health Na v[facility] Outreach ([facility]) Start: 01-14-2023 Telephone encounter Krishna abernathy MD Work Phone: Internal Medicine [place] Comment on above: Results Start: 12-20-2022 End: 12-22-[address] Krishna Reynolds Work Phone: [facility] Work Phone: Start: 12-20-2022 End: 12-22-[address] Krishna Reynolds Work Phone: [facility] Work Phone: Start: 12-07-2022 End: 12-07-2022 Patient encounter procedure Leila Russell APRN.CNP Work Phone: Internal Medicine [place] Comment on above: Type 2 diabetes cheyanne itus with diabetic neuropathy, with long- term current use of insulin (HCC) (Primary Dx); Essential hypertension; Other hyperlipidemia; Venous (peripheral) insufficiency; Chronic diastolic congestive heart failure (HCC); Class 3 severe obesity due to excess calories with serious comorbidity and body mass index (BMI) of 45.0 to 49.9 in adult (HCC); Screening for colon cancer; Encounter for immunization Start: 12-06-2022 Refill Krishna ivy MD Work Phone: Internal Medicine [place] Comment on above: Refill Request Start: 12-04-[address] Tres Reynolds Work Phone: [facility] Work Phone: Start: 11-30-2022 End: 11-30-[address] Krishna Reynolds Work Phone: [facility] Work Phone: Start: 11-30-2022 End: 11-30-[address] Krishna Reynolds Work Phone: [facility] Work Phone: Start: 11-29-2022 End: 11-29-[address] Krishna Reynolds Work Phone: [facility] Work Phone: Start: 11-29-2022 Non-patient / Non-visit Dr. Jennifer Reynolds Work Phone: [facility] Start: 11-23-2022 Non-patient / Non-visit Dr. Jennifer Reynolds Work Phone: [facility] Start: 11-22-2022 End: 11-22-[address] Krishna Reynolds Work Phone: [facility] Work Phone: Start: 11-22-2022 End: 11-22-[address] Krishna Reynolds Work Phone: [facility] Work Phone: Start: 11-19-2022 End: 11-19-2022 Patient encounter procedure Arabella Heredia DPM Work Phone: Podiatry Comment on above: Corns and callositie s (Primary Dx); DM (diabetes mellitus), type 2 with neurological complications (HCC) Start: 11-16-2022 Non-patient / Non-visit Dr. Jennifer Reynolds Work Phone: [facility] Start: 11-15-2022 Non-patient / Non-visit Dr. Jennifer Reynolds Work Phone: [facility] Start: 11-02-2022 Non-patient / Non-visit Dr. Jennifer Reynolds Work Phone: [facility] Start: 10-25-2022 Telephone encounter Krishna abernathy MD Work Phone: Internal Medicine [place] Comment on above: Referral Request Start: 10-23-2022 Telephone encounter Krishna abernathy MD Work Phone: Internal Medicine [place] Comment on above: Patient Question Start: 10-18-2022 Telephone encounter Krishna abernathy MD Work Phone: Internal Medicine [place] Comment on above: FMLA Paperwork Start: 10-18-2022 End: 10-22-2022 [facility] Work Phone: Start: 10-18-2022 End: 10-22-2022 Discharged [facility] Work Phone: Start: 10-10-2022 Telephone encounter Krishna abernathy MD Work Phone: Internal Medicine [place] Comment on above: Patient Question Start: 10-01-2022 End: 10-01-2022 Patient encounter procedure Krishna Reynolds MD Work Phone: Internal Medicine [place] Comment on above: Ulcer of right leg, limited to breakdown of skin (HCC) (Primary Dx); Venous (peripheral) insufficiency; Chronic diastolic congestive heart failure (HCC); Type 2 diabetes mellitus with diabetic neuropathy, with long-term current use of insulin (HCC); Need for COVID-19 vaccine; Essential hypertension Refill Request Start: 09-20-2022 End: 09-21-2022 [facility] Work Phone: Start: 09-20-2022 End: 09-21-2022 Discharged Recurring [facility] Work Phone: Start: 09-12-2022 Refill Krishna ivy MD Work Phone: [facility] Comment on above: Refill Request Start: 09-06-2022 Registered Recurring [facility] Start: 08-27-2022 End: 08-27-2022 Patient encounter procedure Echocardiogram [facility] Work Phone: Cardiology Comment on above: Chronic diastolic co ngestive heart failure (HCC); ROBIN (dyspnea on exertion) Start: 08-21-2022 End: 08-22-2022 ambulatory [facility] Work Phone: Start: 08-21-2022 End: 08-22-2022 Discharged Recurring [facility] Start: 08-17-2022 End: 08-17-2022 ambulatory [facility] Work Phone: Start: 08-17-2022 End: 08-17-2022 Patient encounter procedure [facility] Start: 08-06-2022 Refill Krishna ivy MD Work Phone: Family [facility] Comment on above: Refill Request Start: 07-23-2022 Telephone encounter Krishna abernathy MD Work Phone: Internal [facility] Comment on above: letter to be excused (Jury duty) Start: 07-19-2022 End: 2022 Discharged Recurring [facility] Start: 06-21-2022 End: 06-22-2022 ambulatory [facility] Work Phone: Start: 06-21-2022 End: 06-22-2022 Discharged Recurring [facility] Start: 06-01-2022 End: 06-01-2022 Patient encounter procedure Krishna Reynolds MD Work Phone: Internal [facility] Comment on above: Statin intolerance ( Primary Dx); Type 2 diabetes mellitus with diabetic neuropathy, with long-term current use of insulin (HCC); Chronic diastolic congestive heart failure (HCC); Essential hypertension; 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); Other hyperlipidemia Start: 05-29-2022 Registered Recurring [facility] Start: 05-25-2022 End: 05-25-2022 ambulatory [facility] Work Phone: Start: 05-25-2022 End: 05-25-2022 Patient encounter procedure [facility] Start: 05-22-2022 End: 05-22-2022 ambulatory [facility] Work Phone: Start: 05-22-2022 End: 05-22-2022 Discharged Recurring [facility] Start: 04-24-2022 End: 04-24-2022 Discharged Recurring [facility] Start: 04-10-2022 ambulatory [facility] Long[facility] Comment on above: [facility] Start: 03-22-2022 End: 03-24-2022 ambulatory [facility] Work Phone: Start: 03-22-2022 End: 03-24-2022 Discharged Recurring [facility] Start: 03-15-2022 End: 03-15-2022 Nursing evaluation of patient and report Regulo Lamas RN Work Phone: Endocrinology Comment on above: Type 2 diabetes cheyanne itus with diabetic neuropathy, with long- term current use of insulin (HCC) (Primary Dx) Start: 03-01-2022 Registered Recurring [facility] Start: 02-20-2022 End: 02-21-2022 Discharged Recurring [facility] Start: 02-20-2022 End: 02-21-2022 ambulatory [facility] Work Phone: Start: 02-20-2022 End: 02-20-2022 Patient encounter procedure [facility] Start: 02-05-2022 Telephone encounter Krishna abernathy MD Work Phone: Family [facility] Comment on above: Orders Start: 01-29-2022 Telephone encounter Krishna abernathy MD Work Phone: Internal Medicine [place] Comment on above: Orders Start: 01-26-2022 End: 01-26-2022 Patient encounter procedure Leila Russell APRNEdnaSHOVEL ENGINEER Work Phone: Internal Medicine [place] Comment on above: Medicare annual well ness visit, subsequent (Primary Dx); Type 2 diabetes mellitus with diabetic neuropathy, with long-term current use of insulin (HCC); Balance problem; Gait abnormality; Chronic diastolic congestive heart failure (HCC) Start: 01-22-2022 Telephone encounter Regulo Stover MD Work Phone: Cardiology Comment on above: Medication Problem Start: 01-18-2022 End: 01-22-2022 ambulatory [facility] Work Phone: Start: 01-18-2022 End: 01-22-2022 Discharged Recurring [facility] Start: 01-16-2022 Registered Recurring [facility] Start: 01-15-2022 End: 01-15-2022 Patient encounter procedure Regulo Stover MD Work Phone: Cardiology Comment on above: 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) (Primary Dx); Persistent atrial fibrillation (HCC); Chronic diastolic congestive heart failure (HCC); Essential hypertension; Other hyperlipidemia; Statin intolerance; Class 3 severe obesity due to excess calories with serious comorbidity and body mass index (BMI) of 45.0 to 49.9 in adult (HCC); Dyspnea on exertion; Screening for ischemic heart disease Start: 01-12-2022 End: 01-12-2022 [facility] Work Phone: Start: 01-12-2022 End: 01-12-2022 Patient encounter procedure [facility] Start: 12-21-2021 End: 12-22-2021 [facility] Work Phone: Start: 12-21-2021 End: 12-22-2021 Discharged Recurring [facility] Start: 11-21-2021 End: 11-22-2021 ambulatory [facility] Work Phone: Start: 11-21-2021 End: 11-22-2021 Discharged Recurring [facility] Start: 11-13-2021 End: 11-13-2021 Patient encounter procedure Arabella Kemarbeckie DPM Work Phone: Podiatry Comment on above: Corns and callositie s (Primary Dx); DM (diabetes mellitus), type 2 with neurological complications (HCC) Start: 10-19-2021 End: 10-22-2021 Discharged Recurring [facility] Start: 10-18-2021 Refill Regulo ríos MD Work Phone: Cardiology Comment on above: Refill Request Start: 10-12-2021 Telephone encounter Krishna abernathy MD Work Phone: Internal Medicine [place] Comment on above: FMLA Paperwork Start: 10-11-2021 Telephone encounter Deandra angulo APRN.SHOVEL ENGINEER Work Phone: Endocrinology Comment on above: Connor Wong (Refil l) Start: 09-21-2021 End: 09-21-2021 Discharged Recurring [facility] Start: 09-08-2021 End: 09-08-2021 Patient encounter procedure Krishna Reynolds MD Work Phone: Internal Medicine [place] Comment on above: Type 2 diabetes cheyanne itus with diabetic neuropathy, with long- term current use of insulin (HCC) (Primary Dx); Essential hypertension; Chronic diastolic congestive heart failure (HCC); 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); Persistent atrial fibrillation (HCC); Need for vaccination Start: 08-24-2021 Registered Recurring [facility] Start: 08-23-2021 End: 08-23-2021 Patient encounter procedure [facility] Start: 08-22-2021 End: 08-22-2021 Discharged Recurring [facility] Start: 08-22-2021 End: 08-22-2021 Patient encounter procedure [facility] Start: 08-05-2021 Refill Regulo ríos MD Work Phone: Cardiology Comment on above: Refill Request Start: 07-20-2021 Refill Leila Russell APRN, .CNP Work Phone: Internal Medicine [place] Comment on above: Refill Request Start: 07-20-2021 End: 2021 Discharged Recurring [facility] Start: 07-10-2021 Refill Krishna ivy MD Work Phone: Internal Medicine [place] Comment on above: Refill Request medication clarifica tion Start: 06-22-2021 End: 06-22-2021 Discharged Recurring [facility] Start: 05-18-2021 End: 05-18-2021 Patient encounter procedure [facility] Start: 05-16-2021 End: 05-22-2021 Discharged Recurring [facility] Start: 04-20-2021 End: 04-24-2021 Discharged Recurring [facility] Start: 09-05-2020 End: 09-05-2020 Subsequent hospital visit by physician [facility] Work Phone: Radiology Comment on above: Pain [R52] Start: 06-21-2020 End: 06-21-2020 Subsequent hospital visit by physician Xr [facility] Work Phone: Radiology Comment on above: Chronic diastolic co ngestive heart failure (HCC) [I50.32] Procedures Date Procedure Procedure Detail Performing Clinician Start: 10-19-2024 Myocardial spect multiple studies Regulo Stover MD Work Phone: Start: 08-12-[address] phosphate [address] Krishna Reynolds MD Work Phone: Start: 06-10-2024 PFIZER-BIONTVeeva COVID-19 VACCINE AGE 12+ YR (COMIRNATY) Krishna Reynolds MD Work Phone: Start: 06-03-2024 Urine microalbumin/creatinine ratio measurement Dr. 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: Start: 11-30-2022 Hemoglobin A1c/Hemoglobin.total in Blood [facility] Provider Start: 10-01-2022 [employer] COVID-19 BIVALENT VACCINE, AGE 12+ YR Krishna [...] DTaP,Tdap,Td Vaccine (3 - Td or Tdap) [facility] Start: 12-18-2025 Cologuard (FIT-DNA) Cologuard (FIT-DNA) [facility] Start: 12-18-2025 Colorectal Cancer Screening Colorectal Cancer Screening [facility] Start: 12-18-2025 Screening for malignant neoplasm of colon [facility] Start: 08-10-2025 BP Controlled (<130/80) BP Controlled (<130/80) [facility] Start: 06-10-2025 Annual PCP Team Chronic Disease Visit Annual PCP Team Chronic Disease Visit [facility] Start: 06-10-2025 BP Controlled (<130/80) BP Controlled (<130/80) [facility] Start: 06-10-2025 Diabetic foot examination Diabetic Foot Exam [facility] Start: 06-10-2025 Medicare Annual Wellness Visit Medicare Annual Wellness Visit [facility] Start: 06-03-2025 Hepatitis B screening Urine Albumin:Creatinine Ratio [facility] Start: 06-03-2025 Hepatitis B surface antibody level LDL Cholesterol [facility] Start: 05-31-2025 End: 05-31-2025 Patient encounter procedure 05/31/2025 10:00 AM EDT Office Visit Podiatry [address] [place] [address] Arabella Heredia DPM [address] [place] [address] Follow Up Podiatry Comment on above: Follow Up Start: 05-11-2025 Glaucoma screening Dilated Retinal Exam [facility] Start: 03-22-2025 End: 03-22-2025 Patient encounter procedure 03/22/2025 11:40 AM EST Office Visit Cardiology [address] [place] [address] Regulo Stover MD [address] [place], [place] [id number] 6 month follow up after NST Cardiology Comment on above: 6 month follow up after NST Start: 02-09-2025 Annual PCP Team Chronic Disease Visit Annual PCP Team Chronic Disease Visit [facility] Start: 02-09-2025 BP Controlled (<130/80) BP Controlled (<130/80) [facility] Start: 12-22-2024 End: 12-22-2024 Discharged Recurring Discharged [facility]ring -Cardiac Rehab Work Phone: Start: 12-11-2024 End: 12-11-2024 Patient encounter procedure [facility] [place] Comment on above: 6 month follow-up Start: 12-10-2024 Annual PCP Team Chronic Disease Visit Annual PCP Team Chronic Disease Visit [facility] Start: 12-10-2024 Anxiety Screening Anxiety Screening [facility] Start: 12-10-2024 BP Controlled (<130/80) BP Controlled (<130/80) [facility] Start: 12-10-2024 Depression Screening Depression Screening [facility] Start: 12-04-2024 Hemoglobin A1c measurement HbA1C [facility] Start: 11-30-2024 End: 11-30-2024 Patient encounter procedure 11/30/2024 10:00 AM EDT Office Visit Podiatry [address] [place] [address] Arabella Heredia DPM [address] [place] [address] 6mo follow up Podiatry Comment on above: 6mo follow up Start: 11-23-2024 End: 02-22-2025 Basic metabolic 2000 panel - Serum or Plasma BASIC METABOLIC PANEL Lab Routine Type 2 diabetes mellitus with diabetic neuropathy, with long-term current use of insulin (HCC) Expected: 11/23/2024, Expires: 02/22/2025 [facility] Work Phone: Comment on above: Expected: 11/23/2024, Expires: Start: 11-23-2024 End: 02-22-2025 Hemoglobin A1c in Blood HEMOGLOBIN A1C Lab Routine Type 2 diabetes mellitus with diabetic neuropathy, with long-term current use of insulin (HCC) Expected: 11/23/2024, Expires: 02/22/2025 [facility] Comment on above: Expected: 11/23/2024, Expires: Start: 11-23-2024 Influenza vaccination Influenza Vaccine (#1) [facility] Start: 11-23-2024 End: 02-22-2025 Lipid 1996 panel - Serum or Plasma LIPID PANEL, FASTING Lab Routine Other hyperlipidemia Expected: 11/23/2024, Expires: 02/22/2025 [facility] Comment on above: Expected: 11/23/2024, Expires: Start: 11-17-2024 BP Controlled (<130/80) BP Controlled (<130/80) [facility] in Start: 10-19-2024 End: 10-19-2024 Nursing evaluation of patient and report Cardiology Comment on above: 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 Start: 09-09-2024 Annual PCP Team Chronic Disease Visit Annual PCP Team Chronic Disease Visit [facility] Start: 09-09-2024 BP Controlled (<130/80) BP Controlled (<130/80) [facility] Start: 08-10-2024 End: 08-10-2024 Patient encounter procedure Cardiology Comment on above: 8 month follow up Start: 07-03-2024 Annual PCP Team Chronic Disease Visit Annual PCP Team Chronic Disease Visit [facility] Start: 07-03-2024 BP Controlled (<130/80) BP Controlled (<130/80) [facility] Start: 06-10-2024 End: 06-10-2024 Patient encounter procedure 06/10/2024 8:40 AM EDT Office Visit Internal Medicine [place] [address] [place] [address] Krishna Reynolds MD [address] [place] [address] Annual Medicare/6 month follow-up [facility] Comment on above: Annual Medicare/6 month follow-up Start: 06-09-2024 End: 09-08-2024 Comprehensive metabolic 2000 panel - Serum or Plasma COMPREHENSIVE METABOLIC PANEL Lab Routine Type 2 diabetes mellitus with diabetic neuropathy, with long-term current use of insulin (HCC) Expected: 06/09/2024, Expires: 09/08/2024 [facility] Work Phone: Comment on above: Expected: 06/09/2024, Expires: Start: 06-09-2024 End: 09-08-2024 Hemoglobin A1c in Blood HEMOGLOBIN A1C Lab Routine Type 2 diabetes mellitus with diabetic neuropathy, with long-term current use of insulin (HCC) Expected: 06/09/2024, Expires: 09/08/2024 [facility] Comment on above: Expected: 06/09/2024, Expires: Start: 06-09-2024 End: 09-08-2024 Lipid 1996 panel - Serum or Plasma LIPID PANEL BASIC Lab Routine Type 2 diabetes mellitus with diabetic neuropathy, with long-term current use of insulin (HCC) Expected: 06/09/2024, Expires: 09/08/2024 [facility] Comment on above: Expected: 06/09/2024, Expires: Start: 06-09-2024 End: 09-08-2024 Microalbumin/Creatinine [Mass Ratio] in Urine ALBUMIN/CREATININE RATIO, URINE Lab Routine Type 2 diabetes mellitus with diabetic neuropathy, with long-term current use of insulin (HCC) Expected: 06/09/2024, Expires: 09/08/2024 [facility] Comment on above: Expected: 06/09/2024, Expires: Start: 06-06-2024 Annual PCP Team Chronic Disease Visit Annual PCP Team Chronic Disease Visit [facility] Start: 05-26-2024 Covid-19 Vaccine () Covid-19 Vaccine () [facility] Start: 05-25-2024 End: 05-25-2024 Patient encounter procedure 05/25/2024 10:00 AM EST Office Visit Podiatry [address] [place], [place] [id number] Arabella Heredia DPM [address] [place] [address] 6 month follow up cuts callouses Podiatry Comment on above: 6 month follow up cuts callouses Start: 05-20-2024 Diabetic foot examination Diabetic Foot Exam [facility] Start: 05-07-2024 Glaucoma screening Dilated Retinal Exam [facility] Start: 03-25-2024 Advance Directive Discussion Advance Directive Discussion [facility] Start: 03-11-2024 Annual PCP Team Chronic Disease Visit Annual PCP Team Chronic Disease Visit [facility] Start: 03-11-2024 BP Controlled (<130/80) BP Controlled (<130/80) [facility] Start: 02-16-2024 Hepatitis B screening Urine Albumin:Creatinine Ratio [facility] Start: 02-16-2024 Urine microalbumin profile [facility] Start: 12-11-2023 End: 12-11-2023 Patient encounter procedure 12/11/2023 9:20 AM EDT Office Visit Internal [facility] [place] [address] [place] [id number] Krishna Reynolds MD [address] [place] [address] 6 mo f/u [facility] Comment on above: 6 mo f/u Start: 12-08-2023 Annual PCP Team Chronic Disease Visit Annual PCP Team Chronic Disease Visit [facility] Start: 12-08-2023 End: 03-08-2024 Basic metabolic 2000 panel - Serum or Plasma BASIC METABOLIC PNL Lab Routine Type 2 diabetes mellitus with diabetic neuropathy, with long-term current use of insulin (HCC) Expected: 12/08/2023, Expires: 03/08/2024 [facility] Work Phone: Comment on above: Expected: 12/08/2023, Expires: Start: 12-08-2023 BP Controlled (<130/80) BP Controlled (<130/80) [facility] Start: 12-08-2023 End: 03-08-2024 Hemoglobin A1c in Blood HGB A1C Lab Routine Type 2 diabetes mellitus with diabetic neuropathy, with long-term current use of insulin (HCC) Expected: 12/08/2023, Expires: 03/08/2024 [facility] Work Phone: Comment on above: Expected: 12/08/2023, Expires: Start: 12-08-2023 End: 03-08-2024 Lipid 1996 panel - Serum or Plasma LIPID PANEL BASIC Lab Routine Other hyperlipidemia Expected: 12/08/2023, Expires: 03/08/2024 [facility] Work Phone: Comment on above: Expected: 12/08/2023, Expires: Start: 11-24-2023 Influenza vaccination Influenza Vaccine (#1) [facility] Start: 11-18-2023 End: 11-18-2023 Patient encounter procedure 11/18/2023 1:45 PM EDT Office Visit Podiatry [address] [place] [address] Arabella Heredia, ARELIS [address] [place] [address] 6mo follow up - prefer mornings only Podiatry Comment on above: 6mo follow up - prefer mornings only Start: 11-18-2023 End: 11-18-2023 Patient encounter procedure 11/18/2023 8:40 AM EDT Office Visit Cardiology [address] [place] [address] Regulo Stover MD [address] [address] 6 month follow up Cardiology Comment on above: 6 month follow up Start: 10-02-2023 ANNUAL PCP TEAM CHRONIC DISEASE VISIT ANNUAL PCP TEAM CHRONIC DISEASE VISIT [facility] Start: 09-16-2023 End: 09-16-2023 Patient encounter procedure 09/16/2023 11:00 AM EDT Office Visit Orthopaedics [address] [place] [address] Kaila Jimenez PA-C [address] [place] [address] Elbow mass, right [R22.31] Orthopaedics Comment on above: Elbow mass, right [R22.31] Start: 08-14-2023 BP CONTROLLED (<130/80) BP CONTROLLED (<130/80) [facility] Start: 06-02-2023 3 comp foot exam completed DIABETIC FOOT EXAM [facility] Start: 06-02-2023 ANNUAL PCP TEAM CHRONIC DISEASE VISIT ANNUAL PCP TEAM CHRONIC DISEASE VISIT [facility] Start: 06-02-2023 BP CONTROLLED (<130/80) BP CONTROLLED (<130/80) [facility] Start: 06-02-2023 Diabetic foot examination Diabetic Foot Exam [facility] Start: 05-31-2023 Hemoglobin A1c measurement HbA1C [facility] Start: 05-31-2023 Hemoglobin A1c/Hemoglobin.total in Blood HbA1C [facility] Start: 05-26-2023 Hepatitis B screening URINE ALBUMIN:CREATININE RATIO [facility] Start: 05-26-2023 Hepatitis B surface antibody level LDL CHOLESTEROL [facility] Start: 05-24-2023 End: 08-23-2023 Comprehensive metabolic 2000 panel - Serum or Plasma COMP METABOLIC PANEL Lab Routine Type 2 diabetes mellitus with diabetic neuropathy, with long-term current use of insulin (HCC) Expected: 05/24/2023, Expires: 08/23/2023 [facility] Work Phone: Comment on above: Expected: 05/24/2023, Expires: Start: 05-24-2023 End: 08-23-2023 Hemoglobin A1c in Blood HGB A1C Lab Routine Type 2 diabetes mellitus with diabetic neuropathy, with long-term current use of insulin (HCC) Expected: 05/24/2023, Expires: 08/23/2023 [facility] Work Phone: Comment on above: Expected: 05/24/2023, Expires: 4 Start: 05-24-2023 End: 08-23-2023 Lipid 1996 panel - Serum or Plasma LIPID PANEL BASIC Lab Routine Other hyperlipidemia Expected: 05/24/2023, Expires: 08/23/2023 [facility] Work Phone: Comment on above: Expected: 05/24/2023, Expires: Start: 05-16-2023 Covid-19 Vaccine () Covid-19 Vaccine () [facility] Start: 04-23-2023 Glaucoma screening Dilated Retinal Exam [facility] Start: 04-23-2023 Hepatitis C antibody, confirmatory test DILATED RETINAL EXAM [facility] Start: 03-25-2023 Advance Directive Discussion Advance Directive Discussion [facility] Start: 03-25-2023 Behavioral Health Screening Behavioral Health Screening [facility] Start: 03-25-2023 Depression Assessment Depression Assessment [facility] Start: 01-26-2023 ANNUAL PCP TEAM CHRONIC DISEASE VISIT ANNUAL PCP TEAM CHRONIC DISEASE VISIT [facility] Start: 01-26-2023 BP CONTROLLED (<130/80) BP CONTROLLED (<130/80) [facility] Start: 01-15-2023 BP CONTROLLED (<130/80) BP CONTROLLED (<130/80) [facility] Start: 12-02-2022 End: 02-01-2023 Basic metabolic 2000 panel - Serum or Plasma BASIC METABOLIC PNL Lab Routine Type 2 diabetes mellitus with diabetic neuropathy, with long-term current use of insulin (HCC) Expected: 12/02/2022, Expires: 02/01/2023 [facility] Work Phone: Comment on above: Expected: 12/02/2022, Expires: Start: 12-02-2022 End: 02-01-2023 Hemoglobin A1c in Blood HGB A1C Lab Routine Type 2 diabetes mellitus with diabetic neuropathy, with long-term current use of insulin (HCC) Expected: 12/02/2022, Expires: 02/01/2023 [facility] Work Phone: Comment on above: Expected: 12/02/2022, Expires: Start: 12-02-2022 End: 02-01-2023 Lipid 1996 panel - Serum or Plasma LIPID PANEL BASIC Lab Routine Other hyperlipidemia Expected: 12/02/2022, Expires: 02/01/2023 [facility] Work Phone: Comment on above: Expected: 12/02/2022, Expires: Start: 11-23-2022 Influenza vaccination [facility] Start: 11-15-2022 COLOGUARD (FIT-DNA) COLOGUARD (FIT-DNA) [facility] Start: 11-15-2022 COLORECTAL CANCER SCREENING COLORECTAL CANCER SCREENING [facility] Start: 09-08-2022 ANNUAL PCP TEAM CHRONIC DISEASE VISIT ANNUAL PCP TEAM CHRONIC DISEASE VISIT [facility] Start: 09-08-2022 BP CONTROLLED (<130/80) BP CONTROLLED (<130/80) [facility] Start: 08-23-2022 Hepatitis B surface antibody level LDL CHOLESTEROL [facility] Start: 05-26-2022 ANNUAL PCP TEAM CHRONIC DISEASE VISIT ANNUAL PCP TEAM CHRONIC DISEASE VISIT [facility] Start: 05-26-2022 BP CONTROLLED (<130/80) BP CONTROLLED (<130/80) [facility] Start: 05-01-2022 3 comp foot exam completed DIABETIC FOOT EXAM [facility] Start: 04-14-2022 Hepatitis C antibody, confirmatory test DILATED RETINAL EXAM [facility] Start: 03-25-2022 ADVANCE DIRECTIVE DISCUSSION ADVANCE DIRECTIVE DISCUSSION [facility] Start: 03-25-2022 DEPRESSION ASSESSMENT DEPRESSION ASSESSMENT [facility] Start: 02-14-2022 Hepatitis B screening URINE ALBUMIN:CREATININE RATIO [facility] Start: 01-29-2022 End: 03-31-2022 CBC panel - Blood by Automated count CBC Lab Routine Essential hypertension Expected: 01/29/2022, Expires: 03/31/2022 [facility] Work Phone: Comment on above: Expected: 01/29/2022, Expires: 3 Start: 01-29-2022 End: 03-31-2022 Comprehensive metabolic 2000 panel - Serum or Plasma COMP METABOLIC PANEL Lab Routine Other hyperlipidemia Expected: 01/29/2022, Expires: 03/31/2022 [facility] Work Phone: Comment on above: Expected: 01/29/2022, Expires: 3 Start: 01-29-2022 End: 03-31-2022 Hemoglobin A1c in Blood HGB A1C Lab Routine Type 2 diabetes mellitus with diabetic neuropathy, with long-term current use of insulin (HCC) Expected: 01/29/2022, Expires: 03/31/2022 [facility] Work Phone: Comment on above: Expected: 01/29/2022, Expires: 3 Start: 01-29-2022 End: 03-31-2022 Lipid 1996 panel - Serum or Plasma LIPID PANEL BASIC Lab Routine Other hyperlipidemia Expected: 01/29/2022, Expires: 03/31/2022 [facility] Work Phone: Comment on above: Expected: 01/29/2022, Expires: 3 Start: 01-26-2022 End: 03-28-2022 ALBUMIN/CREAT RATIO RND UR ALBUMIN/CREAT RATIO RND UR Lab Routine Type 2 diabetes mellitus with diabetic neuropathy, with long-term current use of insulin (HCC) Expected: 01/26/2022, Expires: 03/28/2022 [facility] Work Phone: Comment on above: Expected: 01/26/2022, Expires: 3 Start: 12-09-2021 End: 02-08-2022 Basic metabolic 2000 panel - Serum or Plasma BASIC METABOLIC PNL Lab Routine Type 2 diabetes mellitus with diabetic neuropathy, with long-term current use of insulin (HCC) Expected: 12/09/2021, Expires: 02/08/2022 [facility] Work Phone: Comment on above: Expected: 12/09/2021, Expires: 2 Start: 12-09-2021 End: 02-08-2022 Hemoglobin A1c in Blood HGB A1C Lab Routine Type 2 diabetes mellitus with diabetic neuropathy, with long-term current use of insulin (HCC) Expected: 12/09/2021, Expires: 02/08/2022 [facility] Work Phone: Comment on above: Expected: 12/09/2021, Expires: 2 Start: 11-30-2021 Adult depression screening assessment DEPRESSION SCREENING [facility] Start: 11-23-2021 Influenza vaccination INFLUENZA (#1) [facility] Start: 11-15-2021 Hemoglobin A1c/Hemoglobin.total in Blood HBA1C [facility] Start: 08-15-2021 Hemoglobin A1c/Hemoglobin.total in Blood HBA1C [facility] Start: 07-28-2021 BP CONTROLLED (<130/80) BP CONTROLLED (<130/80) [facility] Start: 03-25-2021 ADVANCE DIRECTIVE DISCUSSION ADVANCE DIRECTIVE DISCUSSION [facility] Start: 03-25-2021 DEPRESSION ASSESSMENT DEPRESSION ASSESSMENT [facility] Start: 03-10-2021 COVID-19 VACCINE (4 - Booster for Pfizer series) COVID-19 VACCINE (4 - Booster for Pfizer series) [facility] Start: 02-12-2021 Hepatitis B screening URINE ALBUMIN:CREATININE RATIO [facility] Start: 02-12-2021 Hepatitis B surface antibody level LDL CHOLESTEROL [facility] Start: 10-15-2019 FECAL OCCULT BLOOD FECAL OCCULT BLOOD [facility] Start: 10-15-2019 Screening for malignant neoplasm of colon Fecal Occult Blood [facility] Start: 06-04-2017 End: 06-04-2017 Appointment Appointment [facility] Work Phone: Start: 02-06-2017 End: 02-07-2017 *CBC with Differential *CBC with Differential [facility] Work Phone: Start: 02-06-2017 End: 02-06-2017 Chest x-ray X-Ray, Chest, PA & Lateral [facility] Work Phone: Start: 02-06-2017 End: 02-06-2017 Echocardiography Echocardiogram (complete) [facility] Work Phone: Start: 02-06-2017 End: 02-06-2017 Follow Up Appt Other Follow Up Appt Other [facility] Work Phone: Start: 02-06-2017 End: 02-06-2017 Nuclear stress test -Lexiscan Nuclear stress test -Lexiscan [facility] Work Phone: Start: 02-06-2017 End: 02-06-2017 PFM PFM [facility] Work Phone: Start: 02-06-2017 End: 02-07-2017 Thyroid stimulating hormone (TSH) *TSH [facility] Work Phone: Start: 02-06-2017 End: 02-07-2017 Thyroxine (T4) *T4 (Total) [facility] Work Phone: Start: 02-06-2017 End: 02-06-2017 Appointment Appointment [facility] Work Phone: Start: 12-03-2016 End: 12-17-2016 *BMP *BMP [facility] Work Phone: Start: 12-03-2016 End: 12-03-2016 Follow Up Appt 6 months Follow Up Appt 6 months [facility] Work Phone: Start: 12-03-2016 End: 12-03-2016 MMM MMM [facility] Work Phone: Start: 02-03-2016 End: 02-03-2016 Follow Up Appt 9 months Follow Up Appt 9 months [facility] Work Phone: Start: 02-03-2016 End: 02-03-2016 PFM PFM [facility] Work Phone: Start: 05-25-2015 End: 06-15-2016 *Hepatic Function Panel *Hepatic Function Panel [facility] Work Phone: Start: 05-25-2015 End: 06-15-2016 Lipid panel [AGGREGATE] *Lipid Profile CC PCP [facility] Work Phone: Start: 05-23-2015 End: 02-06-2017 Follow Up Appt 6 months Follow Up Appt 6 months [facility] Work Phone: Start: 05-23-2015 End: 02-06-2017 Follow Up Appt Other Follow Up Appt Other [facility] Work Phone: Start: 05-23-2015 End: 02-06-2017 MMM MMM [facility] Work Phone: Start: 11-16-2014 End: 02-06-2017 Follow Up Appt 6 months Follow Up Appt 6 months [facility] Work Phone: Start: 11-16-2014 End: 05-23-2015 Follow Up Appt Other Follow Up Appt Other [facility] Work Phone: Start: 11-16-2014 End: 02-06-2017 PFM PFM [facility] Work Phone: Start: 08-25-2014 End: 11-09-2014 Follow Up Appt Other Follow Up Appt Other [facility] Work Phone: Start: 05-21-2014 End: 05-21-2014 Ecg routine ecg w/least 12 lds w/i&r EKG (In office) [facility] Work Phone: Start: 05-21-2014 End: 05-21-2014 Follow Up Appt 6 months Follow Up Appt 6 months [facility] Work Phone: Start: 05-21-2014 End: 05-21-2014 MMM MMM [facility] Work Phone: Start: 01-06-2014 End: 02-22-2014 INR Coag RelTime (PPP) *PT/INR - Standing Order [facility] Work Phone: Start: 09-21-2013 End: 02-22-2014 *Hepatic Function Panel *Hepatic Function Panel [facility] Work Phone: Start: 09-21-2013 End: 09-21-2013 Follow Up Appt 6 months Follow Up Appt 6 months [facility] Work Phone: Start: 09-21-2013 End: 02-22-2014 Lipid panel [AGGREGATE] *Lipid Profile CC PCP [facility] Work Phone: Start: 09-21-2013 End: 09-21-2013 PFM PFM [facility] Work Phone: Start: 05-28-2013 End: 05-28-2013 Ecg routine ecg w/least 12 lds w/i&r EKG (In office) [facility] Work Phone: Start: 05-27-2013 End: 05-28-2013 Ambulatory BP Monitor 24 HR Ambulatory BP Monitor 24 HR [facility] Work Phone: Start: 05-11-2013 End: 05-11-2013 Ecg routine ecg w/least 12 lds w/i&r EKG (In office) [facility] Work Phone: Start: 05-11-2013 End: 05-11-2013 Follow Up Appt Other Follow Up Appt Other [facility] Work Phone: Start: 02-27-2013 End: 02-27-2013 Ecg routine ecg w/least 12 lds w/i&r EKG (In office) [facility] Work Phone: Start: 02-27-2013 End: 11-09-2014 Follow Up Appt Other Follow Up Appt Other [facility] Work Phone: Start: 02-13-2013 End: 08-06-2013 *Hepatic Function Panel *Hepatic Function Panel [email or web address] Work Phone: Start: 02-13-2013 End: 02-13-2013 Follow Up Appt 6 months Follow Up Appt 6 months [facility] Work Phone: Start: 02-13-2013 End: 08-06-2013 Lipid panel [AGGREGATE] *Lipid Profile CC PCP [facility] Work Phone: Start: 02-13-2013 End: 02-13-2013 MMM MMM [facility] Work Phone: Start: 01-07-2013 End: 09-01-2013 INR Coag RelTime (PPP) *PT/INR - Standing Order [facility] Work Phone: Start: 12-25-2012 End: 01-07-2013 Chest x-ray X-Ray, Chest, PA & Lateral [facility] Work Phone: Start: 12-25-2012 End: 01-07-2013 Ecg routine ecg w/least 12 lds w/i&r EKG (In office) [facility] Work Phone: Start: 12-25-2012 End: 12-25-2012 Echocardiography Echocardiogram (complete) [facility] Work Phone: Start: 12-25-2012 End: 02-27-2013 Follow Up Appt 6 weeks Follow Up Appt 6 weeks [facility] Work Phone: Start: 12-25-2012 End: 11-09-2014 Follow Up Appt Other Follow Up Appt Other [facility] Work Phone: Start: 12-25-2012 End: 01-07-2013 INR Coag RelTime (PPP) *PT/INR [facility] Work Phone: Start: 12-25-2012 End: 02-27-2013 PFM PFM [facility] Work Phone: Start: 2010 Hepatitis B Vaccine (1 of 3 - Risk 3-dose series) Hepatitis B Vaccine (1 of 3 - Risk 3-dose series) [facility] Start: 07-23-1995 Colonoscopy COLONOSCOPY [facility] Start: 07-23-[address] COLONOGRAPHY [facility] Start: 07-23-1995 Screening for malignant neoplasm of colon [facility] Start: 07-23-1995 SIGMOIDOSCOPY SIGMOIDOSCOPY [facility] Start: 1968 Anxiety Screening Anxiety Screening [facility] Start: 1968 Depression Screening Depression Screening [facility] COLOGUARD COLOGUARD Lab Ro utine Screening for colon cancer Ordered: 12/07/2022 [facility] Work Phone: Comment on above: Ordered: 12/07/2022 End: 01-09-2023 ECG COMPLETE ECG COMPLETE ECG Routine Screening for ischemic heart disease 1 Occurrences starting 01/09/2022 until 01/09/2023 [facility] Work Phone: Comment on above: 1 Occurrences starting 01/09/2022 until 01/09/2023 End: 09-09-2025 NM Heart Perfusion W stress and W radionuclide IV NM CARDIAC PERF STRESS/PHARM Radiology Routine Coronary artery disease of [place] artery of [place] heart with stable angina pectoris ROBIN (dyspnea on exertion) 1 Occurrences starting 08/10/2024 until 09/09/2025 [facility] Work Phone: Comment on above: 1 Occurrences starting 08/10/2024 until 09/09/2025 Patient Education HYPERLIPIDEMIA [facility] Work Phone: End: 08-02-2024 US.doppler Scrotum and testicle US SCROTUM AND CONTENTS Radiology Routine Hydrocele, acquired 1 Occurrences starting 07/04/2023 until 08/02/2024 [facility] Work Phone: Comment on above: 1 Occurrences starting 07/04/2023 until 08/02/2024 US.doppler Scrotum a nd testicle US SCROTUM AND CONTENTS Radiology Routine Hydrocele, acquired 2023 10:50 AM EDT [facility] Work Phone: End: 10-10-2024 XR Elbow - right AP and Lateral XR ELBOW GENERAL 2V AP/LAT RIGHT Radiology Routine Right elbow pain 1 Occurrences starting 09/11/2023 until 10/10/2024 [facility] Work Phone: Comment on above: 1 Occurrences starting 09/11/2023 until 10/10/2024 XR Elbow - right AP and Lateral XR ELBOW GENERAL 2V AP/LAT RIGHT Radiology Routine Right elbow pain 09/16/2023 10:47 AM EDT [facility] Work Phone: [facility] Immunizations Immunization Date Immunization Notes Care Provider Kimmy castañeda 06-10-2024 COVID-19 vaccine, ag e 12+ yr (PFIZER-BIONTECH COMIRNATY) Krishna Reynolds MD Work Phone: [facility] 11-27-2023 influenza virus vaccine, unspecified formulation Nurse [place] Work Phone: [facility] 01-13-2023 COVID-19 vaccine, ag e 12+ yr, season (MODERNA) Nhung Longo MA [facility] 12-07-2022 influenza (HD-IIV4) vaccine, age 65+ yr, high dose, quadrivalent, PF (FLUZONE HIGH-DOSE) 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 Work 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: [facility] 12-07-2022 influenza virus vaccine, unspecified formulation Kaila Jimenez PA-C Work Phone: [facility] 12-06-2022 respiratory syncytia l virus (RSV) vaccine, bivalent (ABRYSVO) 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 Work Phone: [facility] 10-01-2022 COVID-19 vaccine, ag e 12+ yr, bivalent (PFIZER-BIONTECH) Krishna Reynolds MD Work Phone: [facility] Work Phone: 12-06-2021 COVID-19 booster vaccine, age 12+ yr, bivalent (PFIZER-BIONTECH) Regulo Stover MD Work Phone: [facility] Work Phone: 11-10-2021 influenza (aIIV4) vaccine, age 65+ yr, quadrivalent, PF (FLUAD QUAD) Krishna Reynolds MD Work Phone: [facility] Work Phone: 11-10-2021 influenza virus vaccine, unspecified formulation Krishna Reynolds MD Work Phone: [facility] 09-08-2021 pneumococcal (PCV20) vaccine, 20 valent (PREVNAR 20) Krishna Reynolds MD Work Phone: [facility] Work Phone: 09-08-2021 pneumococcal Conjuga te, unspecified formulation Krishna Reynolds MD Work Phone: [facility] Work Phone: 11-08-2020 COVID-19 vaccine, ag e 12+ yr (PFIZER-BIONTECH - PURPLE TOP) Krishna Reynolds MD Work Phone: [facility] Work Phone: 11-08-2020 influenza, high dose seasonal, preservative-free Krishna Reynolds MD Work Phone: [facility] Work Phone: 06-16-2020 COVID-19 vaccine, ag e 12+ yr (PFIZER-BIONTECH - PURPLE TOP) Krishna Reynolds MD Work Phone: [facility] Work Phone: 05-26-2020 COVID-19 vaccine, ag e 12+ yr (PFIZER-BIONTECH - PURPLE TOP) Krishna Reynolds MD Work Phone: [facility] Work Phone: 02-08-2020 zoster vaccine recombinant Krishna Reynolds MD Work Phone: [facility] Work Phone: 12-08-2019 influenza, high dose seasonal, preservative-free Krishna Reynolds MD Work Phone: [facility] Work Phone: 12-08-2019 zoster vaccine recombinant Krishna Reynolds MD Work Phone: [facility] Work Phone: 11-03-2018 influenza, high dose seasonal, preservative-free Krishna Reynolds MD Work Phone: [facility] Work Phone: 12-26-2016 influenza, seasonal, injectable Krishna Reynolds MD Work Phone: [facility] Work Phone: 10-17-2016 pneumococcal polysaccharide vaccine, 23 valent Krishna Reynolds MD Work Phone: [facility] 11-16-2015 influenza, high dose seasonal, preservative-free Krishna Reynolds MD Work Phone: [facility] 09-06-2015 pneumococcal conjuga te vaccine, 13 valent Krishna Reynolds MD Work Phone: [facility] 12-14-2014 influenza, seasonal, injectable Krishna Reynolds MD Work Phone: [facility] 02-15-2014 tetanus toxoid, redu glenroy diphtheria toxoid, and acellular pertussis vaccine, adsorbed Krishna Reynolds MD Work Phone: [facility] 12-14-2013 influenza virus vaccine, whole virus Krishna Reynolds MD Work Phone: [facility] Work Phone: 11-17-2012 influenza virus vaccine, unspecified formulation Krishna Reynolds MD Work Phone: [facility] 01-30-2012 zoster vaccine, live Krishna Reynolds MD Work Phone: [facility] Work Phone: 11-27-2011 influenza virus vaccine, whole virus Krishna Reynolds MD Work Phone: [facility] Work Phone: 02-23-2004 pneumococcal polysaccharide vaccine, 23 valent Krishna Reynolds MD Work Phone: [facility] Work Phone: 02-23-2004 tetanus and diphther ia toxoids, not adsorbed, for adult use Krishna Reynolds MD Work Phone: [facility] Work Phone: NEGATED: Highlighted row has not occurred!01-30-2012 influenza virus vaccine, unspecified formulation Krishna Reynolds MD Work Phone: [facility] Work Phone: Payers Date Payer Category Payer Self-pay [id number] 2015 Private Health Insurance [facility] AARP SUPPLEMENT [id number] 2015-Present [phone] [address] [place] [address] Indemnity [id number] 2015 Private Health Insurance [id number] 2015 Unknown [id number] 2011 Medicare MEDICARE MEDICAR E A AND B [id number] 2011-Present [phone] [address] [address] [place] [address] Medicare [id number] 2011 Medicare [id number] 2011 Medicare [id number] Unknown [id number] .462 Unknown [id number] [id number] .462 Unknown [id number] 2.16.840.1.633592.3.579.2 .462 Unknown [id number] 2.16.840.1.722332.3.579.2 .462 Unknown [id number] 2.16.840.1.910884.3.579.2 .462 Unknown [id number] 2.16.840.1.992184.3.579.2 .462 Unknown [id number] 2.16.840.1.939143.3.579.2 .462 Unknown [id number] 2.16.840.1.397891.3.579.2 .462 Unknown [id number] 2.16.840.1.511502.3.579.2 .462 Unknown [id number] 2.16.840.1.672055.3.579.2 .462 Unknown [id number] 2.16.840.1.872108.3.579.2 .462 Unknown [id number] 2.16.840.1.795206.3.579.2 .462 Unknown [id number] 2.16.840.1.921498.3.579.2 .462 Unknown [id number] 2.16.840.1.342542.3.579.2 .462 Unknown [id number] 2.16.840.1.318225.3.579.2 .462 Unknown [id number] 2.16.840.1.461551.3.579.2 .462 Unknown [id number] 2.16.840.1.214732.3.579.2 .462 Unknown [id number] 2.16.840.1.739797.3.579.2 .462 Unknown [id number] 2.16840.1.950173.3.579.2 .462 Unknown [id number] .462 Social History Date Type Detail Facility Start: 03-31-2020 End: 01-29-2023 Tobacco smoking status NHIS Never smoked tobacco [facility] Start: 03-31-2020 End: 11-18-2023 Tobacco use and exposure User of smokeless tobacco [facility] History of tobacco use Chews Tobacco [facility] Start: 05-26-2021 End: 10-16-2024 Alcohol intake Current drinker of alcohol (finding) [facility] Start: 02-27-2010 History SDOH Alcohol Comment Rare [facility] Start: 1950 Sex Assigned At Not on file C [facility] Start: 08-04-2020 End: 01-29-2023 Tobacco smoking status NHIS Unknown if ever smoked [facility] Start: 09-15-2019 Occasional [facility] Start: 09-15-2019 None [facility] Start: 10-01-2019 Spouse/ Signif icant Other [facility] Start: 06-24-2020 Chew [facility] Start: 1950 Sex Assigned At Male W [facility] Start: 05-22-2020 End: 01-15-2022 Exposure to SARS-CoV-2 (event) Not sure [facility] Work Phone: History of tobacco use Cigarette Smoker C [facility] Start: 08-13-2022 End: 10-01-2022 History of Social function [facility] Work Phone: Start: 08-13-2022 End: 10-01-2022 Tobacco use panel [facility] Work Phone: Start: 02-24-2012 Adult Depression Screening Assessment 1 [facility] Work Phone: How often to you hav e a drink containing alcohol? Never [facility] Start: 06-13-2024 End: 06-23-2024 Sex Male (finding) [facility] Medical Equipment Procedure Code Equipment Code Equipment Original Text Equipment Identifier Dates [id number], [id number], [id number], [id number], [id number], [id number] Start: 07-03-2011 End: 06-26-2023 Comment on above: [...] Facility 06-10-2024 Total score [AUDIT-C] 0 06/11/19 8:59 AM EDT Krishna Reynolds MD [facility] 07-02-2020 Are you deaf, or do you have serious difficulty hearing No 07/02/2020 9:27 AM Eber Blank, SHALA No [facility] 07-02-2020 Are you blind, or do you have serious difficulty seeing, even when wearing glasses No 07/02/2020 9:27 AM EDT Eber Eldridge, SHALA No [facility] 07-02-2020 Do you have serious difficulty walking or climbing stairs No 07/02/2020 9:27 AM EDEber Courtney, SHALA No [facility] 07-02-2020 Do you have difficul ty dressing or bathing No 07/02/2020 9:27 AM Eber Blank, SHALA No [facility] 07-02-2020 Because of a physica l, mental, or emotional condition, do you have difficulty doing errands alone such as visiting a physician's office or shopping No 07/02/2020 9:27 AM Eber Blank, SHALA No [facility] Mental Status Date Assessment Result Facility 07-02-2020 Because of a physica l, mental, or emotional condition, do you have serious difficulty concentrating, remembering, or making decisions No 07/02/2020 9:27 AM Eber Blank, SHALA No [facility] Clinical Notes 06-21-2020 to 01-25-2025 Arabella Heredia DPM - 11/30/2024 7:21 PM EDTTelephone Encounter - Elsa Marin LPN - 11/04/2024 8:41 AM EDTTelephone Encounter - Elsa Marin LPN - 11/04/2024 8:41 AM EDT Note Date & Type Note Facility 01-25-2025 Note HNO ID: [id number] Author: TALYA SHEPPARD RT(Isabel) Service: ? Author Type: Meat Curer Type: Progress Notes Filed: 01/25/2025 10:14 Note Text: Radiology Service Progress Note PATIENT NAME: Miguelangel Moya DATE OF SERVICE: January 25, 2025 TIME: 10:14 AM PATIENT IDENTITY VERIFICATION COMPLETED USING TWO (2) IDENTIFIERS: Name and Date of confirmed by patient verbally. FALL SCREENING: Has the patient had 2 falls in the last year or 1 fall with injury or currently using an Ambulatory Assistive Device (Walker, Cane, Wheelchair, Crutches, etc.)? No PATIENT GENDER DATA: Assigned male at PATIENT RELEVANT IMPLANT DATA REVIEWED: Not Applicable PATIENT PRESENTS WITH AN IMPLANTABLE OR ATTACHED MANGA ARTIST: No RADIOLOGY DEPARTMENT: General X-ray: Exam(s) Completed: Upper Extremity X-Ray(s): Hand, right PERIPHERAL IV DATA: Not applicable SIGNED BY: RT Devorah(R) January 25, 2025 10:14 AM [facility] 01-25-2025 Note HNO ID: [id number] Author: JOE RODRIGUEZ MD Service: ? Author Type: Physician Type: Progress Notes Filed: 01/25/2025 12:57 Note Text: Patient here for evaluation for Right elbow ulnar neuropathy. Patient states he is having pain in his right elbow, wrist, index and small fingers. Patient states he is also has lumps in all of those areas as well. He is having numbness and tingling in his fingers. Has been dropping things and states he can press tender smoke signal for a short period. Patient is currently continuing cardiac rehab after his heart stents 5 years ago. Patient is left hand dominant. with patient today. Patient taking Tylenol for pain when needed as he is on Eliquis. Joe Rodriguez MD Department of Orthopaedics Orthopa[facility] [address] [place] [id number] Dept: [phone] Dept January 25, 2025 CHIEF COMPLAINT: Established Patient of the Right Elbow (Ulnar nerve neuropathy right elbow - Referred by Dr Reynolds/Last seen by Kaila 09/16/23 mass right elbow with Kaila) HPI Miguelangel Moya is a 74-year-old male presenting with right wrist pain, right index finger swelling, and numbness and tingling in the right hand. He is accompanied by his , who provides additional history. Miguelangel reports right wrist pain localized to the ulnar aspect, which is tender to palpation and worsens with weather changes. He also notes intermittent numbness and tingling in the right hand, including the 5th digit. He has a visible lump on the right index finger, which he describes as tender and fluctuating in size. He also reports a longstanding deformity of another finger from a remote injury, which now occasionally locks. He has a history of bilateral ulnar nerve surgeries. He denies any prior diagnosis of gout. He recently had a uric acid level drawn at [facility], which was elevated at 10.7. 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 Ulnar neuropathy of right upper extremity (G56.21) History of bilateral ulnar nerve decompression; currently experiencing numbness and tingling in the right upper extremity, suggestive of recurrent ulnar neuropathy. - Discussed that repeat surgery is not recommended at this time. - Discussed that a repeat nerve conduction study could be considered if symptoms worsen or persist. 2. Tophaceous gout (M1A.9XX1) 3. Pain in right wrist (M25.531) Elevated uric acid level (10.7 mg/dL) with clinical findings consistent with gout, contributing to right wrist pain. - X-ray of right hand ordered to evaluate for gouty arthropathy and assess wrist pain. - Will message Dr. Reynolds to discuss initiation of allopurinol or other urate-lowering therapy. - Provided wrist brace to offload joint during activity. - Discussed potential for corticosteroid injection if wrist pain persists after gout management is initiated. - Educated patient on dietary triggers for gout, including asparagus and mushrooms. 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 OBJECTIVE: Mr. Miguelangel Moya is a pleasant 74 year old in no apparent distress. Gen:There were no vitals taken for this visit. nl development, obese, no deformities ENT: Normocephalic, normal hearing, moist mucosa CV: Pulses:Radial= 2+ and symmetric, capillary refill < 2 secs, no peripheral edema/varicosities Skin: no rash, bruising or lesions. Good turgor. Psych: cooperative and appropriate, alert and oriented x 3, good mood and affect. Musculoskeletal: - Musculoskeletal: - Right Wrist: Tenderness over the ulnar aspect. - Right Hand: Swelling and tenderness at the DIP joint of the index finger consistent with possible tophi. - Neurological: - Right Upper Extremity: Numbness and tingling reported in the ulnar distribution, minimally. Calcific mass still noted on extensor surface of the right elbow/forearm without pain or skin changes. IMAGING: Labs: Uric Acid: 10.7 Imaging: IMPRESSION: No acute fracture or osseous malalignment is identified. The joint spaces are preserved. There is a cluster of nonspecific rounded foci of mineralization in the subcutaneous soft tissues over the dorsal aspect of the proximal forearm. The location appears distinct from the olecranon bursa making gout less likely. Dystrophic calcification or possibly calcinosis cutis are differential considerations. Seafood Farmer: ASHUTOSH Transcribe Date/Time: Sep 19 2023 9:33P Dictated by : AUGUSTO BANERJEE MD This examination was interpreted and the report reviewed and electronically signed by: AUGUSTO BANERJEE MD on Sep 19 2023 9:39PM EST Results-Findings * * *Final Report* * * DATE OF EXAM: Sep 16 2023 10:47AM (more content not included)... [facility] 01-02-2025 Note HNO ID: [id number] Author: ALY TORRE RT(R) Service: ? Author Type: Meat Curer Type: Progress Notes Filed: 01/02/2025 11:56 Note [...] PATIENT PRESENTS WITH AN IMPLANTABLE OR ATTACHED MANGA ARTIST: No RADIOLOGY DEPARTMENT: General X-ray: Exam(s) Completed: Chest X-Ray PERIPHERAL IV DATA: Not applicable SIGNED BY: RT Daniel(R) January 02, 2025 11:56 AM [facility] 01-02-2025 Note HNO ID: [id number] Author: RADHIKA FRAZIER MA Service: ? Author Type: Atomic Fuel Assembler Type: Progress Notes Filed: 01/02/2025 12:20 Note Text: Walking 02 started at 96 went up to 98 but held steady at 97. [facility] 01-02-2025 Note HNO ID: [id number] Author: KRISHNA REYNOLDS MD Service: ? Author [...] With Long-Term Current Use of Insulin ([facility]) Class 3 Severe Obesity With Body Mass Index (Bmi) of 45.0 to 49.9 in Adult (Formerly [facility]) Other Hyperlipidemia Essential Hypertension Coronary Artery Disease of [place] Artery of [place] Heart With Stable Angina Pectoris Persistent Atrial Fibrillation ([facility]) Memory Disturbance Bph (Benign Prostatic Hyperplasia) History of Partial Amputation of Toe ([facility]) Robin (Dyspnea On Exertion) Statin Intolerance Chronic Diastolic Congestive Heart Failure (Hcc) Valvular Heart Disease Non-Seasonal Allergic Rhinitis Hypertensive Heart Disease With Chronic Diastolic Congestive Heart Failure (Hcc) Atherosclerosis of Aorta Current Outpatient Medications Medication [...] 1 tablet by mouth once daily. Insulin [place], Disposable, 32 gauge x 5/32 Use with insulin 4 times a day. Dx: E11.40; Z79.4 blood sugar diagnostic (BLOOD GLUCOSE TEST) test strip Test blood sugar(s) 4-5 times daily Dx: Type 2 DM - Uncontrolled E11.65 Insulin: Yes BIOTIN ORAL Take 1 tablet by mouth once daily. Fish Oil-[place]-3 Fatty Acids (FISH OIL OMEGA 3-6-9) 300-1,000 [...] discussed with the (more content not included)... [facility] 12-24-2024 Note HNO ID: [id number] Author: SAMANTHA LIMA MA Service: ? Author Type: Atomic Fuel Assembler Type: Progress Notes Filed: 12/24/2024 08:07 Note [...] Lima MA December 24, 2024 8:06 AM [facility] 12-24-2024 Note Patient Outreach ([facility]) MIGUELANGEL MOYA ([id number]) 1950 M Date Time Provider Department 12/24/24 SAMANTHA LIMA During your visit today, we recorded the [...] ALLERGIES 08/04/2012 14 - Other: See Comments [id number] REDUCTASE INHIBIT*06/18/2011 14 - Other: See Comments Comments: Muscle aches Date Reviewed: 11/30/2024 Reviewed by: Mattie Mckoy, RN - Fully Assessed Reason for Visit: Population Health Navigation Outreach [[id number]] Cmt: [place]/Workbench/ACO Prescriptions as of 12/24/2024 - insulin degludec [...] tablet by mouth once daily. - Insulin [place], Disposable, 32 gauge x 5/32 Use with insulin 4 times a day. Dx: E11.40; Z79.4 - blood sugar diagnostic (BLOOD GLUCOSE TEST) test strip Test blood sugar(s) 4-5 times daily Dx: Type 2 DM - Uncontrolled E11.65 Insulin: Yes - BIOTIN ORAL Take 1 tablet by mouth once daily. - Fish Oil-[place]-3 Fatty Acids (FISH OIL OMEGA 3-6-9) 300-1,000 [...] [E11.42] 01/30/2006 04/24/2018 Coronary artery disease of [place] artery of thai*10/07/2007 Persistent atrial fibrillation (HCC) [...] [R06.09] 11/06/2019 Statin (more content not included)... [facility] 11-30-2024 Note HNO ID: [id number] Author: ARABELLA HEREDIA DPM Service: ? Author [...] 1 tablet by mouth once daily. Fish Oil-[place]-3 Fatty Acids (FISH OIL OMEGA 3-6-9) 300-1,000 mg CpDR Take 3000 mg daily. Lancets (ONE TOUCH ULTRASOFT LANCETS) Misc lancets twice daily. Use as instructed ( may dispense Deuca brand) VITAMIN C 1,000 MG TAB Take one(1) tablet daily. Insulin [place], Disposable, 32 gauge x Use with insulin [...] agitation Ramipril Seasonal Allergies Other: See Comments Lgjtsru-Tzx-Jrh Red* Other: See Comments Muscle aches OBJECTIVE: [...] ICD9: 250.60, ICD10: E11.49 (primary diagnosis) 2. [place] or callus - ICD9: 700, ICD10: L84 PLAN: Treatment today consisted of -Exam -Debrided calluses x 4 with #15 blade Continue follow up with endo Continue with diabetic shoes Follow-up in 4 months or sooner corine Heredia DPM [facility] 11-30-2024 History of Presen t [...] 1 tablet by mouth once daily. Fish Oil-[place]-3 Fatty Acids (FISH OIL OMEGA 3-6-9) 300-1,000 mg CpDR Take 3000 mg daily. Lancets (ONE TOUCH ULTRASOFT LANCETS) Misc lancets twice daily. Use as instructed ( may dispense Deuca brand) VITAMIN C 1,000 MG TAB Take one(1) tablet daily. Insulin [place], Disposable, 32 gauge x Use with insulin [...] agitation Ramipril Seasonal Allergies Other: See Comments Vytwcgy-Jqh-Keu Red* Other: See Comments Muscle aches OBJECTIVE: [...] ICD9: 250.60, ICD10: E11.49 (primary diagnosis) 2. [place] or callus - ICD9: 700, ICD10: L84 PLAN: Treatment today consisted of -Exam -Debrided calluses x 4 with #15 blade Continue follow up with endo Continue with diabetic shoes Follow-up in 4 months or sooner soyn Arabella Heredia DPM documented in this encounter [facility] 11-04-2024 Telephone encounter Note The patient has [...] Marin LPN November 04, 2024 8:49 AM [facility] 11-04-2024 Miscellaneous Notes The patient has been [...] 2024 8:49 AM documented in this encounter [facility] 10-22-2024 Telephone encounter Note Spoke with patient about test results. Patient verbalizes understanding. Ivy Morse LPN [facility] 10-22-2024 Miscellaneous Notes Spoke with patient about [...] you Hung Stover documented in this encounter [facility] 10-22-2024 Telephone encounter Note ----- Message from Regulo Sotver MD sent at 10/22/2024 4:58 PM EDT ----- Please call the patient to let him know that his stress test was normal. Heart pumping function is good. I will review the results in more detail at his next's office visit Thank you Hung Stover [facility] 10-19-2024 History of Presen t illness Narrative [...] PATIENT PRESENTS WITH AN IMPLANTABLE OR ATTACHED MANGA ARTIST: n/a CREATININE: Creatinine Date Value Ref Range [...] STATUS: Discontinued PROCEDURE TYPE: NM Stress: 17.1mCi [id number] was administered IV for [facility] Imaging at 08:55 by Gilda Castle. 51.4 mCi Fc61l-Unasxss was administered IV for Stress Imaging at 10:25 by Gilda Castle. PATIENT DISCHARGED TO: Ambulatory patient, left [place] department area. Is this a therapy: No A Diagnostic radioactive procedure has taken place, with no further precautions necessary other than routine body substance precautions. More information regarding radiation safety can be found using this link: [email or web address] [email or web address]-%20Diagnostic%20N uclear%20Medicine%[email or web address] df SIGNATURE: BELTRAN Wong) PATIENT NAME: Miguelangel Moya DATE: October 19, 2024 TIME: 11:30 AM PAGER/CONTACT #: documented in this encounter [facility] 10-19-2024 Note HNO ID: [id number] Author: GILDA CASTLE RT (R) Service: Nuclear Medicine Author Type: Technologist Type: [...] PATIENT PRESENTS WITH AN IMPLANTABLE OR ATTACHED MANGA ARTIST: n/a CREATININE: Creatinine Date Value Ref Range [...] STATUS: Discontinued PROCEDURE TYPE: NM Stress: 17.1mCi [id number]-Kdvvihm was administered IV for Rest Imaging at 08:55 by Gilda Castle. 51.4 mCi Iu59t-Ikvpnde was administered IV for Stress Imaging at 10:25 by Gilda Castle. PATIENT DISCHARGED TO: Ambulatory patient, left [place] department area. Is this a therapy: No A Diagnostic radioactive procedure has taken place, with no further precautions necessary other than routine body substance precautions. More information regarding radiation safety can be found using this link: [email or web address] [email or web address]-% 20Diagnostic%20Nuclear%20Medicin e%20Procedures.pdf SIGNATURE: RT Judith(R) PATIENT NAME: Miguelangel Moya DATE: October 19, 2024 TIME: 11:30 AM PAGER/CONTACT #: [facility] 10-16-2024 Telephone encounter Note Pt's called and is notified of providers message and instructions. She voices understanding. Vernell Lopez RN [facility] 10-16-2024 Miscellaneous Notes Pt's called and is [...] Novolog per sliding scale Leila Suárez APRN.PATRICIA Phoned pt and spoke with . Given [...] are the sliding scale doses? Leila Suárez APRN.PATRICIA reports pt is having a nuclear stress test on Saturday morning at 8:30 am and they were instructed to check with pcp to ask if pt should take his Novolog 25 units that morning? Also has novolog sliding scale that morning but states he probably won't need that. Please advise and phone pt with reply. documented in this encounter [facility] 10-16-2024 Telephone encounter Note The standard protocol is to hold scheduled insulin and give sliding scale if indicated by the blood sugar to avoid the blood sugar spiking since he is not getting the scheduled insulin that morning. Check blood fasting blood sugar the day of procedure and give indicated amount of Novolog per sliding scale Leila Suárez APRN.PATRICIA [facility] 10-16-2024 Telephone encounter Note Phoned pt and [...] stays below 100. Please advise , Jessica. [facility] 10-16-2024 Telephone encounter Note Typically the scheduled dose of Novolong should be held and patient should take sliding scale insulin only. What are the sliding scale doses? Leila Suárez APRN.PATRICIA [facility] 10-15-2024 Telephone encounter Note Called and reviewed [...] floor at Radiology: [address]; [place] [address] * If you need to cancel or reschedule this test or have any questions regarding this test, please call [phone]. [facility] 10-15-2024 Miscellaneous Notes Called and reviewed the [...] floor at Radiology: [address]; [place] [address] * If you need to cancel or reschedule this test or have any questions regarding this test, please call [phone]. documented in this encounter [facility] 10-15-2024 Telephone encounter Note reports pt is having a nuclear stress test on Saturday morning at 8:30 am and they were instructed to check with pcp to ask if pt should take his Novolog 25 units that morning? Also has novolog sliding scale that morning but states he probably won't need that. Please advise and phone pt with reply. [facility] 08-24-2024 Telephone encounter Note Prescription Refill Information [...] Guillermina Pires August 24, 2024 9:00 AM [facility] 08-24-2024 Miscellaneous Notes Prescription Refill Information The [...] 2024 9:00 AM documented in this encounter [facility] 08-10-2024 Telephone encounter Note Printed and mailed to patient per request. Jamaica Hernandez LPN [facility] 08-10-2024 Miscellaneous Notes Printed and mailed to [...] 2024 1:50 PM documented in this encounter [facility] 08-10-2024 Telephone encounter Note Call received from [...] Mendez RN August 10, 2024 1:50 PM [facility] 08-10-2024 Instructions Regulo Stover MD - 08/10/2024 8:43 AM EDT We are ordering a stress test No caffeine for 36 hours prior to the stress Do not take the metoprolol the day of the stress documented in this encounter [facility] 08-10-2024 History of Presen t illness Narrative Images from the original note were not included. [facility] SECTION OF REGIONAL CARDIOLOGY Cardiology ([facility]) [address] [facility] [id number] OUTPATIENT VISIT DATE 08/10/2024 PRIMARY CARE PHYSICIAN: Krishna Reynolds [address] [place] [address] HISTORY OF PRESENT ILLNESS: Mr. Moya is [...] agitation Ramipril Seasonal Allergies Other: See Comments Hbfxvap-Okv-Yxo Red* Other: See Comments Muscle aches MEDICATIONS: [...] 1 tablet by mouth once daily. Insulin [place], Disposable, 32 gauge x 5/32 Use with insulin 4 times a day. Dx: E11.40; Z79.4 blood sugar diagnostic (BLOOD GLUCOSE TEST) test strip Test blood sugar(s) 4-5 times daily Dx: Type 2 DM - Uncontrolled E11.65 Insulin: Yes BIOTIN ORAL Take 1 tablet by mouth once daily. Fish Oil-[place]-3 Fatty Acids (FISH OIL OMEGA 3-6-9) 300-1,000 [...] are no significant valvular abnormalities. Echocardiogram 12/10/2019 Kaela: Technically difficult study Grossly normal LV function [...] AND RECOMMENDATIONS: 1. Coronary artery disease of [place] artery of [place] heart with stable angina pectoris - ICD9: [...] Regulo Stover MD documented in this encounter [facility] 08-10-2024 Note HNO ID: [id number] Author: REGULO STOVER MD Service: ? Author Type: Physician Type: Progress Notes Filed: 08/10/2024 08:53 Note Text: [facility] SE[facility] REGIONAL CARDIOLOGY Cardiology ([facility]) [address] [facility] [id number] OUTPATIENT VISIT DATE 08/10/2024 PRIMARY CARE PHYSICIAN: Krishna Reynolds [address] [place] [address] HISTORY OF PRESENT ILLNESS: Mr. Moya is [...] agitation Ramipril Seasonal Allergies Other: See Comments Ldntfwl-Yww-Bqn Red* Other: See Comments Muscle aches MEDICATIONS: [...] 1 tablet by mouth once daily. Insulin [place], Disposable, 32 gauge x 5/32 Use with insulin 4 (more content not included)... [facility] 08-04-2024 Telephone encounter Note Pharmacy notified. They will order this for pt to fish bait picker. Pharmacy will notified pts spouse. [facility] 08-04-2024 Miscellaneous Notes Pharmacy notified. They will order this for pt to fish bait picker. Pharmacy will notified pts spouse. MIGUELANGEL MOYA (Armijo: [id number]) Rx #: [id number] Tresiba FlexTouch (insulin degludec injection) 200 Units/mL [...] on covermymed. MIGUELANGEL MOYA (Armijo: [id number]) - [id number] Tresiba FlexTouch (insulin degludec injection) 200 Units/mL solution status: PA Request Created: August 02, 2024 [id number] Sent: August 04, 2024 documented in this encounter [facility] 08-04-2024 Telephone encounter Note MIGUELANGEL MOYA (Armijo: [id number]) Rx #: [id number] Tresiba FlexTouch (insulin degludec injection) 200 Units/mL [...] claim.. Authorization Expiration Date: March 24, 2099. [facility] 08-04-2024 Telephone encounter Note Per pharmacy PA is needed for the brand name tresiba pt's formulary is the generic but pharmacy says this is not available per manufacture(on back order). Pharmacy says she called the insurance and they would not allow an override code. PA was needed. This was completed on covermymed. MIGUELANGEL MOYA (Armijo: [id number]) - [id number] Tresiba FlexTouch (insulin degludec injection) 200 Units/mL solution status: PA Request Created: August 02, 2024 [id number] Sent: August 04, 2024 [facility] 06-10-2024 Instructions Krishna Reynolds MD - 06/10/2024 [...] review all the medicines you take, even rzrt-skb-icdckcx medicines. As you get older, the way [...] certain medical conditions. documented in this encounter [facility] 06-10-2024 Note HNO ID: [id number] Author: KRISHNA REYNOLDS MD Service: ? Author Type: Physician Type: Progress Notes Filed: 06/10/2024 09:54 Note Text: This note was created using Emotiveriter. Subjective Miguelangel Moya is a 73 year [...] With Long-Term Current Use of Insulin ([facility]) Class 3 Severe Obesity With Body Mass Index (Bmi) of 45.0 to 49.9 in Adult ([facility]) Other Hyperlipidemia Essential Hypertension Coronary Artery Disease of [place] Artery of [place] Heart With Stable Angina Pectoris ([facility]) Persistent Atrial Fibrillation ([facility]) Memory Disturbance Bph (Benign Prostatic Hyperplasia) History of Partial Amputation of Toe ([facility]) Robin (Dyspnea On Exertion) Statin Intolerance Chronic Diastolic Congestive Heart Failure ([facility]) Valvular Heart Disease Non-Seasonal Allergic Rhinitis Hypertensive Heart Disease With Chronic Diastolic Congestive Heart Failure ([facility]) Atherosclerosis of Aorta ([facility]) Social History Tobacco Use Smoking status: Never [...] 1 tablet by mouth once daily. Insulin [place], Disposable, 32 gauge x 5/32 Use with insulin 4 times a day. Dx: E11.40; Z79.4 blood sugar diagnostic (BLOOD GLUCOSE TEST) test strip Test blood sugar(s) 4-5 times daily Dx: Type 2 DM - Uncontrolled E11.65 Insulin: Yes BIOTIN ORAL Take 1 tablet by mouth once daily. Fish Oil-[place]-3 Fatty Acids (FISH OIL OMEGA 3-6-9) 300-1,000 [...] Yellowish. Multiple toes (more content not included)... [facility] 06-10-2024 History of Presen t illness Narrative This note was created using NoteWriter. Subjective [...] With Long-Term Current Use of Insulin ([facility]) Class 3 Severe Obesity With Body Mass Index (Bmi) of 45.0 to 49.9 in Adult ([facility]) Other Hyperlipidemia Essential Hypertension Coronary Artery Disease of [place] Artery of [place] Heart With Stable Angina Pectoris ([facility]) Persistent Atrial Fibrillation ([facility]) Memory Disturbance Bph (Benign Prostatic Hyperplasia) History of Partial Amputation of Toe ([facility]) Robin (Dyspnea On Exertion) Statin Intolerance Chronic Diastolic Congestive Heart Failure ([facility]) Valvular Heart Disease Non-Seasonal Allergic Rhinitis Hypertensive Heart Disease With Chronic Diastolic Congestive Heart Failure ([facility]) Atherosclerosis of Aorta ([facility]) Social History Tobacco Use Smoking status: Never [...] 1 tablet by mouth once daily. Insulin [place], Disposable, 32 gauge x Use with insulin 4 times a day. Dx: E11.40; Z79.4 blood sugar diagnostic (BLOOD GLUCOSE TEST) test strip Test blood sugar(s) 4-5 times daily Dx: Type 2 DM - Uncontrolled E11.65 Insulin: Yes BIOTIN ORAL Take 1 tablet by mouth once daily. Fish Oil-[place]-3 Fatty Acids (FISH OIL OMEGA 3-6-9) 300-1,000 [...] immunization - ICD9: V03.89, ICD10: Z23 - [employer] COVID-19 VACCINE AGE 12+ YR (COMIRNATY) 3. [...] current medications 8. 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) - [...] MD as PCP - General Leila Suárez, 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 as Director Digital Catalogue (Internal Medicine) Regulo Stover MD (Cardiology) Arabella [...] - Covid vaccine. documented in this encounter [facility] 06-10-2024 Note HNO ID: [id number] Author: KRISHNA REYNOLDS MD Service: ? Author [...] MD as PCP - General Leila Suárez, 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 as Director Digital Catalogue (Internal Medicine) Regulo Stover MD (Cardiology) Arabella [...] loss. BMI 44.25 kg/(m2) - Covid vaccine. [facility] 05-28-2024 Telephone encounter Note Prescription [...] Guillermina Pires May 28, 2024 9:09 AM [facility] 05-28-2024 Miscellaneous Notes Prescription Refill Information The [...] 2024 9:09 AM documented in this encounter [facility] 05-25-2024 Note HNO ID: [id number] Author: ARABELLA HEREDIA DPM Service: ? Author [...] injury (DANIELA) with acute tubular necrosis (ATN) ([facility]) 11/06/2019 CAD (coronary artery disease) [...] 1 tablet by mouth once daily. Insulin [place], Disposable, 32 gauge x 5/32 Use with [...] 1 tablet by mouth once daily. Fish Oil-[place]-3 Fatty Acids (FISH OIL OMEGA 3-6-9) 300-1,000 mg CpDR Take 3000 mg daily. Lancets (ONE TOUCH ULTRASOFT LANCETS) [facility] lancets twice daily. Use as instructed ( [...] agitation Ramipril Seasonal Allergies Other: See Comments Kncqlfm-Far-Mki Red* Other: See Comments Muscle aches OBJECTIVE: [...] 3 months or sooner corine Heredia DPM [facility] 05-25-2024 History of Presen t [...] 1 tablet by mouth once daily. Insulin [place], Disposable, 32 gauge x 5/32 Use with [...] 1 tablet by mouth once daily. Fish Oil-[place]-3 Fatty Acids (FISH OIL OMEGA 3-6-9) 300-1,000 [...] agitation Ramipril Seasonal Allergies Other: See Comments Aefagnc-Bfc-Wre Red* Other: See Comments Muscle aches OBJECTIVE: [...] Arabella Heredia DPM documented in this encounter [facility] 04-30-2024 Telephone encounter Note Prescription Refill Information [...] Kalyani Serrato April 30, 2024 2:48 PM [facility] 04-30-2024 Miscellaneous Notes Prescription Refill Information The [...] 2024 2:48 PM documented in this encounter [facility] 04-14-2024 Telephone encounter Note Pt brought in handicap parking request. Pcp completed letter. 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 [facility] 04-14-2024 Miscellaneous Notes Pt brought in handicap parking request. Pcp completed letter. 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 documented in this encounter [facility] 03-07-2024 Telephone encounter Note Prescription Refill Information [...] sugar as directed (~ 68 units daily) uGillermina Love [facility] March 07, 2024 9:52 AM [facility] 03-07-2024 Miscellaneous Notes Prescription Refill Information The [...] as directed (~ 68 units daily) Guillermina Love [facility] March 07, 2024 9:52 AM documented in this encounter [facility] 02-10-2024 Note HNO ID: [id number] Author: KRISHNA REYNOLDS MD Service: ? Author Type: Physician Type: Progress Notes Filed: 02/10/2024 18:47 Note Text: This note was created using Emotiveriter. Subjective Patient presents with: Gama Moya is a 73 year old male [...] With Long-Term Current Use of Insulin (Former[facility]) Class 3 Severe Obesity With Body Mass Index (Bmi) of 45.0 to 49.9 in Adult ([facility]) Other Hyperlipidemia Essential Hypertension Coronary Artery Disease of [place] Artery of [place] Heart With Stable Angina Pectoris ([facility]) Persistent Atrial Fibrillation ([facility]) Memory Disturbance Bph (Benign Prostatic Hyperplasia) History of Partial Amputation of Toe ([facility]) Robin (Dyspnea On Exertion) Statin Intolerance Chronic Diastolic Congestive Heart Failure ([facility]) Valvular Heart Disease Non-Seasonal Allergic Rhinitis Hypertensive Heart Disease With Chronic Diastolic Congestive Heart Failure ([facility]) Atherosclerosis of Aorta ([facility]) Social History Tobacco Use Smoking status: Never [...] 1 tablet by mouth once daily. Insulin [place], Disposable, 32 gauge x /32 Use with [...] 1 tablet by mouth once daily. Fish Oil-[place]-3 Fatty Acids (FISH OIL OMEGA 3-6-9) 300-1,000 [...] neuropathy, with long-term current use of insulin ([facility]) - ICD9: 250.60, 357.2, V58.67, ICD10: E11.40, Z79.4 - Worsening control Shared Medical Decision Making was done: Medication: gabap (more content not included)... [facility] 02-10-2024 History of Presen t illness Narrative This note was created using Emotiveriter. Subjective Patient presents with: Gama Moya is a 73 year old male [...] With Long-Term Current Use of Insulin ([facility]) Class 3 Severe Obesity With Body Mass Index (Bmi) of 45.0 to 49.9 in Adult ([facility]) Other Hyperlipidemia Essential Hypertension Coronary Artery Disease of [place] Artery of [place] Heart With Stable Angina Pectoris ([facility]) Persistent Atrial Fibrillation ([facility]) Memory Disturbance Bph (Benign Prostatic Hyperplasia) History of Partial Amputation of Toe ([facility]) Robin (Dyspnea On Exertion) Statin Intolerance Chronic Diastolic Congestive Heart Failure ([facility]) Valvular Heart Disease Non-Seasonal Allergic Rhinitis Hypertensive Heart Disease With Chronic Diastolic Congestive Heart Failure ([facility]) Atherosclerosis of Aorta ([facility]) Social History Tobacco Use Smoking status: Never [...] 1 tablet by mouth once daily. Insulin [place], Disposable, 32 gauge x 5/32 Use with [...] 1 tablet by mouth once daily. Fish Oil-[place]-3 Fatty Acids (FISH OIL OMEGA 3-6-9) 300-1,000 [...] neuropathy, with long-term current use of insulin ([facility]) - ICD9: 250.60, 357.2, V58.67, [...] Krishna Reynolds MD documented in this encounter [facility] 01-23-2024 Telephone encounter Note Patient states that he is ok with taking the 75mg every other week. He states that he was having constipation issues on the 150mg dose. Patient aware that his cholesterol is poorly controlled. Yoselin Hilario RN [facility] 01-23-2024 Miscellaneous Notes Patient states that he [...] advise. Thank you. documented in this encounter [facility] 01-22-2024 Telephone encounter Note Images from the original note were not included. Regulo Stover MD We can decrease the Praluent if he believes this is really leading to his constipation. However, he has to realize that his cholesterol is still fairly poorly controlled on the 75 mg every other week dose. Hung [facility] 01-06-2024 Telephone encounter Note Pt is having trouble with bowel movement, believes that he needs to change the Parluent medication. Wants to switch back to 75. Please advise. Thank you. [facility] 12-12-2023 Telephone encounter Note Pt brought in annual FMLA for pcp to complete for pt's son's work. Myra takes pt to appts. Pt reports no change from last year. This has been completed by pcp and faxed back to son's work. [facility] 12-12-2023 Miscellaneous Notes Pt brought in annual FMLA for pcp to complete for pt's son's work. Myra takes pt to appts. Pt reports no change from last year. This has been completed by pcp and faxed back to son's work. documented in this encounter [facility] 12-11-2023 History of Presen t illness Narrative This note was created using Emotiveriter. Subjective Miguelangel Moya is a 73 year [...] With Long-Term Current Use of Insulin ([facility]) Class 3 Severe Obesity With Body Mass Index (Bmi) of 45.0 to 49.9 in Adult ([facility]) Other Hyperlipidemia Essential Hypertension Coronary Artery Disease of [place] Artery of [place] Heart With Stable Angina Pectoris ([facility]) Persistent Atrial Fibrillation ([facility]) Memory Disturbance Bph (Benign Prostatic Hyperplasia) History of Partial Amputation of Toe ([facility]) Robin (Dyspnea On Exertion) Statin Intolerance Chronic Diastolic Congestive Heart Failure ([facility]) Valvular Heart Disease Non-Seasonal Allergic Rhinitis Hypertensive Heart Disease With Chronic Diastolic Congestive Heart Failure ([facility]) Atherosclerosis of Aorta ([facility]) Social History Tobacco Use Smoking status: Never [...] 1 tablet by mouth once daily. Insulin [place], Disposable, 32 gauge x 5/32 Use with [...] 1 tablet by mouth once daily. Fish Oil-[place]-3 Fatty Acids (FISH OIL OMEGA 3-6-9) 300-1,000 [...] RATIO, URINE 2. Coronary artery disease involving [place] heart without angina pectoris, unspecified vessel or [...] Krishna Reynolds MD documented in this encounter [facility] 12-03-2023 Telephone encounter Note Updated med list. Josefina Ballard MA [facility] 12-03-2023 Miscellaneous Notes Updated med list. Josefina Ballard MA Spouse calling to let office know that patient did decide to change ASA from 325mg to 81mg. Yolie Bernard LPN documented in this encounter [facility] 12-02-2023 Telephone encounter Note Spouse calling to let office know that patient did decide to change ASA from 325mg to 81mg. Yolie Bernard LPN [facility] 11-20-2023 Telephone encounter Note Prescription Refill Information [...] Natasha Serrato November 20, 2023 9:12 AM [facility] 11-20-2023 Miscellaneous Notes Prescription Refill Information The [...] 2023 9:12 AM documented in this encounter [facility] 11-18-2023 History of Presen t illness Narrative [...] injury (DANIELA) with acute tubular necrosis (ATN) ([facility]) 10/07/2007: CAD (coronary artery disease) [...] and unspecified hyperlipidemia 10/07/2007: Paroxysmal atrial fibrillation ([facility]) No date: Personal history of contact with [...] 1 tablet by mouth once daily. Insulin [place], Disposable, 32 gauge x 5/32 Use with [...] 1 tablet by mouth once daily. Fish Oil-[place]-3 Fatty Acids (FISH OIL OMEGA 3-6-9) 300-1,000 [...] agitation Ramipril Seasonal Allergies Other: See Comments Twpiwgu-Fsn-Fbr Red* Other: See Comments Muscle aches OBJECTIVE: [...] Arabella Heredia DPM documented in this encounter [facility] 11-18-2023 Instructions Regulo Stover MD - 11/18/2023 8:56 AM EDT We are goint to increase the Praluent to 150 mg per 2 weeks Repeat fasting blood work in 3-4 months documented in this encounter [facility] 11-18-2023 History of Presen t illness Narrative Images from the original note were not included. [facility]STITUTE SECTION OF REGIONAL CARDIOLOGY Cardiology ([address]) [address] [facility] [id number] OUTPATIENT VISIT DATE 11/18/2023 PRIMARY CARE PHYSICIAN: Krishna Reynolds [address] [place] [address] HISTORY OF PRESENT ILLNESS: Mr. Moya is [...] injury (DANIELA) with acute tubular necrosis (ATN) ([facility]) 10/07/2007: CAD (coronary artery disease) Comment: 70% stenosis circumflex 2nd marginal branch. Drug eluting stent done. 06/21/2020: Diabetic ulcer of toe of left foot associated with type 2 diabetes mellitus ([facility]) No date: Esophageal reflux No date: Generalized osteoarthrosis, unspecified site 10/17/2016: Nephrolithiasis 01/30/2006: NEUROPATHY IN DIABETES No date: Nonspecific abnormal results of liver function study No date: Obesity, unspecified 08/13/2013: JAMES (obstructive sleep apnea) Comment: declined tx 09/17/2019: Osteomyelitis of second toe of right foot (HCC) 09/17/2019: Osteomyelitis of third toe of right foot ([facility]) No date: Other and unspecified hyperlipidemia 10/07/2007: Paroxysmal atrial fibrillation ([facility]) No date: Personal history of contact with [...] VESSELCESAR Comment: Transcath stent init vessel DILIA langley: VASECTOMY UNI/BI SPX W/POSTOP SEMEN EXAMS SOCIAL [...] agitation Ramipril Seasonal Allergies Other: See Comments Cprokto-Cjf-Avr Red* Other: See Comments Muscle aches MEDICATIONS: amLODIPine (NORVASC) 2.5 mg tablet Take 1 tablet by mouth once daily. Insulin [place], Disposable, 32 gauge x Use with insulin [...] DOSE, CALL 911 flash glucose scanning reader ([employer] MERCY 2 READER) Test blood sugar(s) 4-5 [...] 1 tablet by mouth once daily. Fish Oil-[place]-3 Fatty Acids (FISH OIL OMEGA 3-6-9) 300-1,000 mg CpDR Take 3000 mg daily. Lancets (ONE TOUCH ULTRASOFT LANCETS) [facility] lancets twice daily. Use as instructed ( [...] are no significant valvular abnormalities. Echocardiogram 12/10/2019 [place]: Technically difficult study Grossly normal LV function [...] AND RECOMMENDATIONS: 1. 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) - [...] Regulo Stover MD documented in this encounter [facility] 09-16-2023 History of Presen t illness Narrative Kaila Jimenez PA-C Department of Orthopaedics Orthopaedics [address] [place] [address] Dept: [phone] Dept September 16, 2023 Consultation requested by [...] or possibly calcinosis cutis are differential considerations. Seafood Farmer: ASHUTOSH Transcribe Date/Time: Sep 19 2023 9:33P [...] 1 tablet by mouth once daily. Fish Oil-[place]-3 Fatty Acids (FISH OIL OMEGA 3-6-9) 300-1,000 mg CpDR Take 3000 mg daily. aspirin, enteric coated (ASPIRIN, ENTERIC COATED) 325 mg EC tablet Take 1 tablet by mouth once daily. MULTIVITAMIN TAB Take one(1) tablet daily. VITAMIN C 1,000 MG TAB Take one(1) tablet daily. Insulin [place], Disposable, 32 gauge x 5/32 Use with insulin 4 times a day. Dx: E11.40; Z79.4 nitroglycerin sublingual (NITROQUICK) 0.4 mg SL tablet Dissolve 1 tablet under the tongue every 5 minutes as needed for chest pain. IF NO PAIN RELIEF WITH 2ND DOSE, CALL 911 flash glucose scanning reader ([employer] MERCY 2 READER) Test blood sugar(s) 4-5 [...] Insulin: Yes Lancets (ONE TOUCH ULTRASOFT LANCETS) Misc lancets twice daily. Use as instructed ( may dispense Deuca brand) No current facility-administered medications for this visit. Allergies: Metolazone, Altace [Ramipril], Bactrim [Sulfamethoxazole-Trimethoprim], Diovan [Valsartan], Propofol, Ramipril, Seasonal Allergies, and Gtgocpo-Lzj-Izy Reductase Inhibitors ROS: General (negative for fatigue, malaise, weight loss/gain) HEENT (negative for headache, earache, recent vision changes, sinus pain, sore throat) Respiratory (no recent shortness of breath, hemoptysis) CV (negative for chest tightness, palpitations) Musculoskeletal (see HPI) Psych (no depression, anxiety) This note was partially generated using Daily Dealy voice recognition system, and there may be [...] Left hand dominant. documented in this encounter [facility] 09-16-2023 History of Presen t illness Narrative [...] PATIENT PRESENTS WITH AN IMPLANTABLE OR ATTACHED MANGA ARTIST: No RADIOLOGY DEPARTMENT: General X-ray: Exam(s) Completed: Upper Extremity X-Ray(s): Elbow, right PERIPHERAL IV DATA: Not applicable SIGNED BY: Aly Torre RT(R) September 16, 2023 10:45 AM documented in this encounter [facility] 09-10-2023 History of Presen t illness Narrative This note was created using xCloudter. Subjective Patient presents with: Thad Moya is [...] With Long-Term Current Use of Insulin (Formerly [facility]) Class 3 Severe Obesity With Body Mass Index (Bmi) of 45.0 to 49.9 in Adult (Formerly [facility]) Other Hyperlipidemia Essential Hypertension Coronary Artery Disease of [place] Artery of [place] Heart With Stable Angina Pectoris (Formerly [facility]) Persistent Atrial Fibrillation (Formerly [facility]) Memory Disturbance Bph (Benign Prostatic Hyperplasia) History of Partial Amputation of Toe (Hcc) Roibn (Dyspnea On Exertion) Statin Intolerance Chronic Diastolic [...] Krishna Reynolds MD documented in this encounter [facility] 07-29-2023 Telephone encounter Note Pts wanted to let provider know that she had Pt scheduled with Dr Godinez on 09/02/23. [facility] 07-29-2023 Miscellaneous Notes Pts wanted to let provider know that she had Pt scheduled with Dr Godinez on 09/02/23. documented in this encounter [facility] 07-27-2023 Telephone encounter Note Patient's notified, verbalized understanding. Referral faxed to Dr. Godinez's office. US results mailed to pts home as requested. Chaz Alfaro MA [facility] 07-27-2023 Miscellaneous Notes Patient's notified, verbalized understanding. [...] Jamaica Iraheta LPN documented in this encounter [facility] 07-26-2023 Telephone encounter Note Left testicular septated (complicated cyst) epididymal cyst versus encysted hydrocele. Short term follow up ultrasound recommended. I recommend consult with Dr. Godinez. ASSESSMENT/PLAN: 1. Hydrocele, acquired - ICD9: 603.9, ICD10: N43.3 (primary diagnosis) - CONSULT TO UROLOGY 2. Testicular cyst - ICD9: 608.89, ICD10: N44.2 - CONSULT TO UROLOGY Krishna Reynolds MD [facility] 07-25-2023 Telephone encounter Note Patient calling wanting results of ultrasound. Please review and advise. Jamaica Iraheta LPN [facility] 2023 History of Presen t illness Narrative [...] PATIENT PRESENTS WITH AN IMPLANTABLE OR ATTACHED MANGA ARTIST: No RADIOLOGY DEPARTMENT: Ultrasound PERIPHERAL IV DATA: Not applicable SIGNED BY: Demi Nova RDMS RVT 2023 11:48 AM documented in this encounter [facility] 07-04-2023 History of Presen t illness Narrative This note was created using Emotiveriter. Subjective Miguelangel Moya is a 72 year [...] With Long-Term Current Use of Insulin (Formerly [facility]) Class 3 Severe Obesity With Body Mass Index (Bmi) of 45.0 to 49.9 in Adult (Formerly [facility]) Other Hyperlipidemia Essential Hypertension Coronary Artery Disease of [place] Artery of [place] Heart With Stable Angina Pectoris (Formerly [facility]) Persistent Atrial Fibrillation (Formerly [facility]) Memory Disturbance Bph (Benign Prostatic Hyperplasia) History of Partial Amputation of Toe (Formerly [facility]) Robin (Dyspnea On Exertion) Statin Intolerance Chronic Diastolic Congestive Heart Failure (Hcc) Valvular Heart Disease Non-Seasonal Allergic Rhinitis Hypertensive Heart Disease With Chronic Diastolic Congestive Heart Failure (Hcc) Atherosclerosis of Aorta (Hcc) Current Outpatient Medications Medication Sig Insulin [place], Disposable, 32 gauge x Use with insulin [...] 1 tablet by mouth once daily. Fish Oil-[place]-3 Fatty Acids (FISH OIL OMEGA 3-6-9) 300-1,000 [...] Krishna Reynolds MD documented in this encounter [facility] 06-26-2023 Miscellaneous Notes Patient's request for medication is as follows Requested Prescriptions Signed Prescriptions Disp Refills Insulin [place], Disposable, 32 gauge x 5/32 400 Each [...] Pharmacy. Thank you. documented in this encounter [facility] 06-13-2023 Miscellaneous Notes Patient has been identified [...] primary care: 12/11/2023 Please advise. Thank you. Eleni Serrato. documented in this encounter [facility] 06-07-2023 Instructions Krishna Reynolds MD - 06/07/2023 8:42 AM EDT CONSIDER ADDING EZETIMIBE (ZETIA) 10 MG 1 TABLET DAILY TO HELP LOWER CHOLESTEROL. THIS IS NOT A STATIN MEDICATION. documented in this encounter [facility] 06-07-2023 History of Presen t illness Narrative This note was created using Emotiveriter. Subjective Miguelangel Moya is a 72 year [...] With Long-Term Current Use of Insulin (Formerly [facility]) Class 3 Severe Obesity With Body Mass Index (Bmi) of 45.0 to 49.9 in Adult (Formerly [facility]) Other Hyperlipidemia Essential Hypertension Coronary Artery Disease of [place] Artery of [place] Heart With Stable Angina Pectoris (Formerly [facility]) Persistent Atrial Fibrillation (Formerly [facility]) Memory Disturbance Bph (Benign Prostatic Hyperplasia) History of Partial Amputation of Toe (Formerly [facility]) Robin (Dyspnea On Exertion) Statin Intolerance Chronic Diastolic Congestive Heart Failure (Formerly [facility]) Valvular Heart Disease Non-Seasonal Allergic Rhinitis Hypertensive Heart Disease With Chronic Diastolic Congestive Heart Failure (Formerly [facility]) Atherosclerosis of Aorta (Formerly [facility]) Current Outpatient Medications Medication Sig insulin aspart, [...] Take 1 tablet by mouth once daily. [employer] glucose scanning reader ([employer] MERCY 2 READER) Test blood sugar(s) 4-5 times daily Dx: Type 2 DM - Uncontrolled Insulin: Yes blood sugar diagnostic (BLOOD GLUCOSE TEST) test strip Test blood sugar(s) 4-5 times daily Dx: Type 2 DM - Uncontrolled Insulin: Yes BIOTIN ORAL Take 1 tablet by mouth once daily. Fish Oil-[place]-3 Fatty Acids (FISH OIL OMEGA 3-6-9) 300-1,000 [...] Type 2 DM - Uncontrolled Insulin: Yes No current facility-administered medications for [...] wellness note. 2. 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) - [...] Team: Krishna Reynolds MD as PCP - Regulo Cummings MD (Cardiology) Gaby Kraus MD (Inactive) (Nephrology) [...] quit Duplicate deleted. documented in this encounter [facility] 05-22-2023 Miscellaneous Notes Orders faxed to [facility] Lab, notified. Roxanna Dennis LPN Fasting CMP, Lipids, A1C orders printed. Pt reports his appt with pcp is 06-07-23 and he would like pcp to order labs and send orders to [facility] lab for him to complete. He plans to get them done on 05-29 or . Reports he needs pcp to order cholesterol lab because Dr. Stover has him on a cholesterol injection, Praluent. Asking pcp to send order for that and whatever else you think he needs. Please notify pt when these are sent to [facility] lab. documented in this encounter [facility] 03-26-2023 History and physi corrine note Note Date/Time March 26, 2023 10:43am [facility] [address] [place] [address] H&P Exam - Wound Care 03/26/23 1037 MR#: [id number] Acct: [id number] Name: MIGUELANGEL MOYA Rep #:[id number] : 1950 72 From: Ronak Valdez PCP: [...] fibrillation, gastroesophageal reflux disease, hypercholesterolemia, and obesity. [facility] Medical History Atherosclerotic heart disease of [place] coronary artery without angina pectoris Balance disorder [...] AdvReac Severe Fast HR Verified 01/29/23 09:22 Woweyqc-JES-RqM Reductase AdvReac Intermediate Muscle Verified 01/29/23 09:22 Inhibitor aches [Ugaawxh-Jyc-Ncr Reductase Inhibitor] Family History Other Family history [...] Recorded Date Recorded By Document 03/26/23 10:07 [employer] 03/26/23 10:17 KW 03/26/23 10:07 WC - Today's Visit Information Type of service Follow-up Visit (Physician/SHOVEL ENGINEER ) Arrival Mode Ambulatory, Walker Patient Identification [...] Recorded Date Recorded By Document 03/26/23 10:07 [employer] 03/26/23 10:17 KW 03/26/23 10:07 Wound Center [...] CODE(S): I25.10 - Atherosclerotic heart disease of [place] coronary artery without angina pectoris QUALIFIERS: Coronary Disease-Associated Artery/Lesion type: nativeartery [place] vs. transplanted heart: [place] heart (11) HLD (hyperlipidemia): CODE(S): E78.5 - Hyperlipidemia, unspecified (12) GERD (gastroesophageal reflux disease): CODE(S): K21.9 - Gastro-esophageal reflux disease without esophagitis (13) Type 2 diabetes mellitus: CODE(S): E11.9 - Type 2 diabetes mellitus without complications (14) Essential hypertension: CODE(S): I10 - Essential (primary) hypertension (15) Atherosclerotic heart disease of [place] coronary artery without angina pectoris: CODE(S): I25.10 - Atherosclerotic heart disease of [place] coronary artery without angina pectoris QUALIFIERS: [place] vs. transplanted heart: [place] heart QualifiedCode(s): I25.10 - Atherosclerotic heart disease of [place] coronary artery without angina pectoris (16) Paroxysmal [...] Cosigner Signature (if applicable): CC: ~ Signed [facility] Work Phone: 1(933) 483-747512-20-2023 Miscellaneous Notes* Telephone Encounter - Natalie Mena RPh - 03/13/2023 9:33 AM EST Please resend Praluent order to [facility]. We originally received an order from you on 03/11/23. Then PCP provider d/c'd the order and resent to [facility] on 03/12/23 which they then called to discontinue. So We spoke to patient and patient is requesting to fill with [facility] as we have a adelina on file to help pay for medication. Thank you kindly, Natalie Mena, Pharmacist [facility] [phone] (phone) [phone] (fax) documented in this encounter[facility] History of Present illness Narrative* Nhung Longo [...] 14, 2023 11:44 AM documented in this encounterAs[facility]23 Miscellaneous Notes* Telephone Encounter - Josefina Qureshi LPN - 01/14/2023 10:27 AM EDT called to see if we received results for the Cologuard test . Results given negative. Josefina Qureshi LPN documented in this encounterAs[facility]09-[facility] History of Present illness Narrative* Leila Russell APRN.SHOVEL ENGINEER - 12/07/2022 7:07 AM EDT CC: Patient presents with: F/U 6 months HPI Miguelangel Moya is a 72 year old male who presents today for above. Denies any concerns or issues today. Feeling well overall. Taking all medications as prescribed, denies side effects. BLE venous insufficiency wounds and edema managed by [facility] wound center, wounds are healed and [...] Other and unspecified hyperlipidemia Paroxysmal atrial fibrillation ([facility]) 10/07/2007 Personal history of contact [...] 12/29/2019 [facility] TONSILLECTOMY PRIMARY/SECONDARY <AGE 12 8 Tonsillectomy TRANSCATH STENT INIT VESSEL,PERCUT 11/10/2007 Transcath stent init vessel percut, DILIA VASECTOMY UNI/BI SPX W/POSTOP SEMEN EXAMS 1977 ALLERGIES Metolazone, Altace [Ramipril], Bactrim [Sulfamethoxazole- Trimethoprim], Diovan [Valsartan], Propofol, Ramipril, Seasonal Allergies, and Ndwtcbl-Buz-Grj Reductase Inhibitors MEDICATIONS insulin degludec (TRESIBA FLEXTOUCH [...] Dx: Type2 DM - Uncontrolled E11.65 Insulin: Yes^Disp: 200 Strip^Rfl: 3 BIOTIN ORAL^Take 1 tablet by mouth once daily.^Disp: ^Rfl: Fish Oil-[place]-3 Fatty Acids (FISH OIL OMEGA 3-6-9) 300-1,000 [...] DATA REVIEWED: Most recent labs done at [facility] ASSESSMENT/PLAN: 1. Type 2 diabetes mellitus [...] plan. Leila Russell APRN.PATRICIA documented in this encounterAs[facility]09-14-[facility]23 Miscellaneous Notes* Telephone Encounter - Agnieszka Khanna LPN - 12/06/2022 10:34 AM EDT Pt has appt 12/07/22 with [facility] * Telephone Encounter - Ivy Allen - [...] and advise. Ivy Allen documented in this encounterAsht[facility]08-28-[facility] History of Present illness Narrative* Arabella Heredia [...] 1 tablet by mouth once daily. Fish Oil-[place]-3 Fatty Acids (FISH OIL OMEGA 3-6-9) 300-1,000 [...] agitation Ramipril Seasonal Allergies Other: See Comments Klztcew-Fuv-Khy Red* Other: See Comments Muscle aches OBJECTIVE: [...] prn Arabella Heredia DPM documented in this encounterAshtabula [facility]08-25-2023 Progress note Author Dalia Lazo [facility] November 16, 2022 11:57am Note Date/Time November 15, 2022 12 :24pm [facility] [address] [place] [address] Progress Note - Wound Care 11/15/22 1223 MR#: [id number] Acct: [id number] Name: MIGUELANGEL MOYA Rep #:[id number] : 1950 72 From: Dalia MONTGOMERY PCP: Dr. Krishna Reynolds MD Status:R EG RCR Location: [facility] History of Present Illness Date of Service: [...] F L 81 16 129/85 H 11/02/22 10:00 11/02/22 10:00 11/02/22 10:00 11/02/22 10:00 Weight: 294 lb Body Mass Index (BMI) 46.0 Charges/Coding Procedures Integumentary 111xxx-113xx: 90009 Lenore subq tissue 20 sq cm/< Physical [...] Date Recorded By Document 11/02/22 10:00 APOLLO [id number] 11/02/22 10:11 APOLLO 11/02/22 10:00 - Today's [...] Bottom <Entered> (a) Communication Assessment Preferred language Turkish Coke Worker Required No Able to Read Yes Able [...] Patient Yes List Device(s) with Patient cane Culture/Yarsanism/Control Supervisor Cultural/Yarsanism Needs that may affect No Treatment Plan Would you allow our hospital naval designer to No meet you for the purpose of spiritual/ emotional support? Control Supervisor to contact place of alevism No Teaching: Wound Center [facility] Orientation/ Contacting Physician -Person Taught Patient,Family -Teaching Method Discussion, Demonstration -Response to teaching Return demonstration, Verbalize understanding (a) 1 - positive 2 - positive 3 - positive 4 - positive - Nurse 1 - General Ulcer Measurement Start: 11/02/22 10:00 Freq: Status: Active Protocol: Activity Type Activity Date Activity User E-sign Co-sign Detail Recorded Client Recorded Date Recorded By Document 11/02/22 10:00 [id number] 11/02/22 10:11 11/02/22 10:00 Wound Center Nurse 1 1-right [...] Date Recorded By Document 11/02/22 16:28 PL [id number] 11/02/22 16:29 PL 11/02/22 16:28 Wound Center [...] Date Recorded By Document 11/02/22 10:57 MW [id number] 11/02/22 10:59 MW Edit Result 11/02/22 10:57 MW (1) [id number] 11/02/22 11:01 MW (1) 1-right medial leg [...] return to clinic in 1 week. 11/16/22 5890 <Electronically signed by Dalia MONTGOMERY> Cosigner Signature (if applicable): CC: ~ Signed [facility] Work Phone: 1(181) 236-759708-15-2023 History and physical note Author Dalia Lazo [facility] November 06, 2022 5:27pm Note Date/Time November 02, 2022 4: 11pm [facility] [address] [place] [address] H&P Exam - Wound Care 11/02/22 1611 MR#: [id number] Acct: [id number] Name: MIGUELANGEL MOYA Rep #:[id number] : 1950 72 From: Dalia MONTGOMERY PCP: [...] at this time (A1c in May 5.8). [facility] Medical History (Updated 11/06/22 @ 17:22 by ULISES Cui) Atherosclerotic heart disease of [place] coronary artery without angina pectoris Chronic diastolic [...] AdvReac Severe Fast HR Verified 06/24/20 08:12 Ystnjkf-EVL-UaB Reductase AdvReac Intermediate Muscle Verified 06/24/20 08:12 Inhibitor aches [Btuqube-Hmf-Knr Reductase Inhibitor] Family History Other Family history of CVA Family history of hyperlipidemia Family history of hypertension Surgical History (Updated 05/25/20 @ 09:[address] Curt Barton, DO) Coronary angioplasty status History of left heart catheterization (LHC) (~12/29/19) History of tonsillectomy and adenoidectomy History of vasectomy Presence of coronary angioplasty implant and graft (~06/2007) Social History (Updated 04/21/20 @ 09:24 by Judith Lo BAND MAKER, BAND MAKER-C) Smoking Status: Never smoker alcohol intake: current [...] Date Recorded By Document 11/02/22 10:00 APOLLO [id number] 11/02/22 10:11 APOLLO 11/02/22 10:00 WC - [...] Bottom <Entered> (a) Communication Assessment Preferred language Turkish Coke Worker Required No Able to Read Yes Able [...] Patient Yes List Device(s) with Patient cane Culture/Yarsanism/Control Supervisor Cultural/Yarsanism Needs that may affect No Treatment Plan Would you allow our hospital naval designer to No meet you for the purpose of spiritual/ emotional support? Control Supervisor to contact place of alevism No Teaching: Wound Center [facility] Orientation/ Contacting Physician -Person Taught Patient,Family -Teaching Method Discussion, Demonstration -Response to teaching Return demonstration, Verbalize understanding (a) 1 - positive 2 - positive 3 - positive 4 - positive - Nurse 1 - General Ulcer Measurement Start: 11/02/22 10:00 Freq: Status: Active Protocol: Activity Type Activity Date Activity User E-sign Co-sign Detail Recorded Client Recorded Date Recorded By Document 11/02/22 10:00 [id number] 11/02/22 10:11 11/02/22 10:00 Wound Center Nurse 1 1-right [...] Date Recorded By Document 11/02/22 10:57 MW [id number] 11/02/22 10:59 MW Edit Result 11/02/22 10:57 MW (1) [id number] 11/02/22 11:01 MW (1) 1-right medial leg [...] Charges/Coding Visit Charges Office Visits / Consults: 62802 OV L3 New Procedures Integumentary 111xxx-113xx: 09031 Lenore subq tissue 20 sq cm/< Assessment/Plan [...] weeks as I am out next week. 11/06/221726 <Electronically signed by Dalia MONTGOMERY> Cosigner Signature (if applicable): CC: ~ Signed [facility] Work Phone: 1(925) 708-345108-03-2023 Miscellaneous Notes* Telephone Encounter - Agnieszka Khanna [...] note, and demographics to be sent to [phone]. Faxed office notes and demographics as requested. Please place referral and fax referral. Erika Garcia RN documented in this encounterAsht[facility]08-03-2023 Miscellaneous Notes* Telephone Encounter - Carlene Goldberg [...] AB's? Please advise . documented in this encounterAshtabula [facility] Center07-28-2023 Miscellaneous Notes* Telephone Encounter - Agnieszka Khanna LPN - 10/19/2022 8:41 AM EDT Completed and faxed to number on the form. * Telephone Encounter - Agnieszka Khanna LPN - 10/18/2022 2:01 PM EDT Pt's spouse brought in [facility] for their son to be off work for appt with pt to drive pt to his appts. This was completed last year. To pcp to review. Fax to number on [email or web address] business card which is [phone] attn Otilia Odonnell. documented in this encounterAshtabula County Medical Center07-20-2023 Miscellaneous Notes* Telephone Encounter - Roxanna Dennis LPN - 10/11/2022 8:27 AM EDT Left message on vm. Roxanna Dennis LPN * Telephone Encounter - [...] advise . Leo Sherwood. documented in this encounterAshtabula [facility] Center07-10-2023 Miscellaneous Notes* Telephone Encounter - Josefina Qureshi [...] Thank you. Josefina AUSTIN documented in this encounterAshtabula County Medical Center07-10-2023 History of Present illness Narrative* Krishna Reynolds MD - 10/01/2022 3:39 PM EDT This note was created using Emotiveriter. Subjective Miguelangel Moya is a 72 year [...] With Long-Term Current Use of Insulin (Formerly [facility]) Class 3 Severe Obesity With Body Mass Index (Bmi) of 45.0 to 49.9 in Adult (Formerly [facility]) Other Hyperlipidemia Essential Hypertension Coronary Artery Disease of [place] Artery of [place] Heart With Stable Angina Pectoris (Formerly [facility]) Persistent Atrial Fibrillation (Formerly [facility]) Memory Disturbance Bph (Benign Prostatic Hyperplasia) History of Partial Amputation of Toe (Formerly [facility]) Robin (Dyspnea On Exertion) Statin Intolerance Chronic Diastolic Congestive Heart Failure (Hcc) Valvular Heart Disease Non-Seasonal Allergic Rhinitis Uncontrolled Diabetes Mellitus Hypertensive Heart Disease With Chronic Diastolic Congestive Heart Failure (Hcc) Current Outpatient Medications Medication Sig nitroglycerin sublingual [...] 1 tablet by mouth once daily. Fish Oil-[place]-3 Fatty Acids (FISH OIL OMEGA 3-6-9) 300-1,000 [...] vaccine - ICD9: V04.89, ICD10: Z23 - PFIZER-BIONTECH COVID-19 BIVALENT VACCINE, AGE 12+ YR 6. Essential hypertension - ICD9: 401.9, ICD10: I10 - Controlled - Decrease amlodipine to 1/2 tablet daily due to edema. - METOPROLOL TARTRATE 50 MG TABLET - AMLODIPINE 5 MG TABLET Krishna Reynolds MD documented in this encounterAshtabula County Medical Center07-10-2023 Instructions* Patient Instructions* Krishna Reynolds MD - 10/01/2022 3:09 PM EDT SEE MEDICATION LIST FOR CHANGES. CALL FOR REFILLS WHEN NEEDED. documented in this encounterAshtabula County Medical Center06-21-2023 Miscellaneous Notes* Telephone Encounter - Roxanna Dennis LPN - 09/12/2022 1:21 PM EDT Called [facility]'s pharmacy, Patient has active RX for Plavix with refills remaining. Pharmacy will get ready for Patient to pickup. Roxanna Dennis LPN * Telephone Encounter - Guillerminaroberto [facility] - 09/12/2022 12:59 PM EDT Patient has been identified by name and date of : Yes Requested Prescriptions Pending Prescriptions Disp Refills clopidogrel (PLAVIX) 75 mg tablet 90 tablet 3 Sig: Take 1 tablet by mouth once daily. RX INSTRUCTIONS: Patient aware RX will be sent to pharmacy. No need to notify patient. [facility] documented in this encounterAshtabula County Medical Center06-05-2023 History of Present illness Narrative* Flavia Tadeo RN - 08/27/2022 10:47 AM EDT 22 ga angio started to right a/c. Good blood return. Flushed easily with NSS. Dressing applied. Definity (Lot # [id number] exp 07/24/23 ) mixed per protocol. 2 cc administered throughout procedure. 8cc discarded. Pt tolerated procedure well. No C/o's, Hep lock D/c'd and dressing applied. Patient discharged ambulatory with Director Pharmacy Services. Flavia Tadeo RN documented in this encounterAshtabula County Medical Center05-15-2023 Miscellaneous Notes* Telephone Encounter - Chaz Alfaro [...] and advise. Jess Xavier documented in this encounterAshtabula County Medical Center05-02-2023 Miscellaneous Notes* Telephone Encounter - Chaz Alfaro [...] problem list. Please fax note to: FAX: [phone] Attn Immanuel Kate. Please advise pt when this has been done. Pt asking to have a message left on his phone. Josefina Qureshi LPN documented in this encounterAshtabula County Medical Center03-10-2023 History of Present illness Narrative* Krishna Reynolds MD - 06/01/2022 9:31 AM EST This note was created using [employer]ov[employer]. Subjective Miguelangel Moya is a 71 year [...] With Long-Term Current Use of Insulin (Formerly [facility]) Class 3 Severe Obesity With Body Mass Index (Bmi) of 45.0 to 49.9 in Adult (Formerly [facility]) Other Hyperlipidemia Essential Hypertension Coronary Artery Disease of [place] Artery of [place] Heart With Stable Angina Pectoris (Hcc) Persistent Atrial Fibrillation (Hcc) Memory Disturbance Bph (Benign Prostatic Hyperplasia) History of Partial Amputation of Toe (Formerly [facility]) Dyspnea On Exertion Statin Intolerance Chronic Diastolic [...] Type 2 DM - Uncontrolled Insulin: Yes spironolactone (ALDACTONE) 25 mg tablet [...] 1 tablet by mouth once daily. Fish Oil-[place]-3 Fatty Acids (FISH OIL OMEGA 3-6-9) 300-1,000 mg CpDR Take 3000 mg daily. Lancets (ONE TOUCH ULTRASOFT LANCETS) [facility] lancets twice daily. Use as instructed ( [...] Discontinue DOXAZOSIN. 5. 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) - ICD9: 414.01, 413.9, ICD10: I25.118 Stable. - CLOPIDOGREL 75 MG TABLET 6. Other hyperlipidemia - ICD9: 272.4, ICD10: E78.49 Discussed medication dosage, usage, goals of therapy, and side effects. Printed RX. He will check pricing and coverage. - NEXLIZET 180 MG-10 MG TABLET - LIPID PANEL BASIC Krishna Reynolds MD documented in this encounterAsht[facility]ula [facility] Center01-17-2023 History of Present illness Narrative* Nhung Longo [...] 10, 2022 7:35 AM documented in this encounterAshtabula County [facility] Center12-22-2022 History of Present illness Narrative* Regulo Lamas RN - 03/15/2022 3:45 PM EST DIABETES SELF-MANAGEMENT EDUCATION AND SUPPORT Location: [place] Type of visit: In person individual Types [...] Race/Ethnic Origin: White/ Does your culture or gnosticist require any of the following: No cultural/mu-ism practices affecting DM Do you have problems with: Walking 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 Work hours: Support System: How often [...] injury (DANIELA) with acute tubular necrosis (ATN) ([facility]) 11/06/2019 CAD (coronary artery disease) [...] Medications Medication Sig flash glucose scanning reader ([employer] MERCY 2 READER) Test blood sugar(s) 4-5 times daily Dx: Type 2 DM - Uncontrolled E11.65 Insulin: Yes flash glucose sensor (FREESTYLE MERCY 2 SENSOR) kit Test blood sugar(s) 4-5 times daily Dx: Type 2 DM - Uncontrolled Insulin: Yes spironolactone (ALDACTONE) 25 mg tablet [...] (UNIFINE PENTIPS PLUS) 33 gauge x 32 ndle Use with insulin four times daily. E11.40, Z79.4 BIOTIN ORAL Take 1 tablet by mouth once daily. Fish Oil-[place]-3 Fatty Acids (FISH OIL OMEGA 3-6-9) 300-1,000 [...] TIME: 3:47 PM PAGER: documented in this encounterAshtabula County Medical Center11-14-2022 Miscellaneous Notes* Telephone Encounter - Guillermina Love [facility] - 02/05/2022 10:46 AM EST Miguelangel Moya is calling Krishna Reynolds MD today to request an order for diabetic foot wear from [employer], in [place]. Please advise patient when order has been faxed. Patient has been identified by name and birthdate. Duration of symptoms: N/A Person calling: self Call patient at: on wifes cell [phone] (cell) Was an appointment scheduled: No Closing statement: Symptom Call: Thank you for calling [facility], your call is very important. A nurse will call in approximately 2-4 hours during business hours. If this is an emergency, please contact 911. Guillermina [facility] documented in this encounterAshtabula County Medical Center11-07-2022 Miscellaneous Notes* Telephone Encounter - Stacey Shepard Ma - 01/29/2022 2:01 PM EST Mailed * Telephone Encounter - Leila Russell APRN.CNP - 01/29/2022 1:07 PM EST Labs ordered, please print and mail to patient. Also print and mail urine test ordered on 01/26 Leila Russell APRN.CNP * Telephone Encounter - Demi Elida - 01/29/2022 10:52 AM EST Patient is asking for any lab work that would be ordered for his appointment with Dr. Reynolds on 06/01 be mailed to him as he takes them to [facility]. Please advise and mail lab orders. Thank you. documented in this encounterAshtabula County Medical Center11-04-2022 History of Present illness Narrative* Leila Russell APRN.CNP - 01/26/2022 8:25 AM EDT Medicare Yearly [...] [Valsartan], Metolazone, Propofol, Ramipril, Seasonal Allergies, and Jhxzwgt-Sra-Kcy Reductase Inhibitors Medications reviewed: Yes FAMILY HISTORY [...] Miguelangel likes to exercise by going to [employer] two times a week. He watches his diet for sodium, low fat and low cholesterol most of the time. List of current specialists seen: [facility] Seater- Dr. Stover Pullman Car Repairer- Dr. Aleman Renal- Dr. Hebert Podiatry-[facility] (Dr. Heredia) End of Live Planning [...] - SPIRONOLACTONE 25 MG TABLET Leila Russell APRN.CNP documented in this encounterAshtabula County Medical Center11-03-2022 Miscellaneous Notes* Telephone Encounter - Flavia Tadeo RN - 01/25/2022 11:54 AM EDT Spoke to Samantha, Pharm D. at [facility] to clarify order. She will fill rx for pt. Flavia Tadeo RN * Telephone Encounter - Flavia Tadeo RN - 01/23/2022 1:33 PM EDT After reviewing office visit notes from 01/15/[address] Stover, it looks like pt. is taking Lasix 80 mg BID, and takes a third pill occasionally PRN for leg swelling. Please advise and send new order to [facility]. Thank you. Flavia Tadeo, RN * Telephone Encounter - Brittney Bass LPN - 01/22/2022 3:56 PM EDT Marcia with [facility] called regarding order for Lasix. They need clarification on the order: 1 tablet by mouth twice daily. Three times per day as directed PRN. New order can be sent. Brittney Bass LPN documented in this encounterAshtabula County Medical Center10-24-2022 History of Present illness Narrative* Regulo Stover MD - 01/15/2022 3:20 PM EDT Images from the original note were not included. [facility] SECTION OF REGIONAL CARDIOLOGY Cardiology ([facility]) [address] [facility] [id number] OUTPATIENT VISIT DATE 01/15/2022 PRIMARY CARE PHYSICIAN: Krishna Reynolds [address] [place] [address] HISTORY OF PRESENT ILLNESS: Mr. Moya is [...] agitation Ramipril Seasonal Allergies Other: See Comments Sbdsbzj-Azb-Oxv Red* Other: See Comments Muscle aches MEDICATIONS: [...] 1 tablet by mouth once daily. Fish Oil-[place]-3 Fatty Acids (FISH OIL OMEGA 3-6-9) 300-1,000 [...] LAD have mild diffuse disease. Echocardiogram 12/10/2019 Kaela: Technically difficult study Grossly normal LV function [...] AND RECOMMENDATIONS: 1. 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 Fish Oil-[place]-3 Fatty Acids (FISH OIL OMEGA 3-6-9) 300-1,000 mg CpDR Take 3000 mg daily. Lancets (ONE TOUCH ULTRASOFT LANCETS) [facility] lancets twice daily. Use as instructed ( [...] agitation Ramipril Seasonal Allergies Other: See Comments Dydslol-Pom-Rif Red* Other: See Comments Muscle aches OBJECTIVE: [...] prn Arabella Heredia DPM documented in this encounterAshtabula County Medical Center07-27-2022 Miscellaneous Notes* Telephone Encounter - Ivy Morse LPN - 10/18/2021 9:03 AM EDT Patient's request for medication is as follows: Pending Prescriptions Disp Refills DOXAZOSIN 1 MG TABLET 90 tablet 3 Sig: TAKE ONE TABLET BY MOUTH EVERY DAY AT BEDTIME TINA: Yes Last seen 02/27/2021. Next visit 01/15/2022. Prescription(s) as above. Please process accordingly. Ivy Morse LPN documented in this encounterAshtabula County Medical Center07-26-2022 Miscellaneous Notes* Telephone Encounter - Agnieszka Khanna LPN - 10/17/2021 3:13 PM EDT Mailed original and copied for scan documents. * Telephone Encounter - Carlene Goldberg RN - 10/17/2021 2:41 PM EDT (Jessica) calls in to request that original [facility] paperwork be mailed to home address at: [id number] [phone]. Carlene Goldberg RN * Telephone Encounter - Agnieszka Khanna LPN - 10/17/2021 9:49 AM EDT Faxed to number on the business card that was sent with the form. Fax number is [phone]. Message left to pts spouse. This will be in pts medical records in scanned documents. * Telephone Encounter - Krishna Reynolds MD - 10/16/2021 6:08 PM EDT Done. * Telephone Encounter - Agnieszka Khanna LPN - 10/12/2021 1:16 PM EDT Pt's spouse brought in [facility] for pts son to be completed. [facility]. This has bee completed previously 09/22/2020. documented in this encounterAshtabula County Medical Center07-20-2022 Miscellaneous Notes* Telephone Encounter - Nhung Bradley MA - 10/11/2021 1:38 PM EDT Received form [facility] request for Unifine Pentips, copied last OV and placed in providers in box for review and signature. Once signed will fax to them. Nhung Bradley MA documented in this encounterAshtabula County Medical Center06-17-2022 History of Present illness Narrative* Krishna Reynolds MD - 09/08/2021 10:00 AM EDT This note was created using Emotiveriter. 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) - ICD9: 414.01, 413.9, ICD10: I25.118 Stable. 5. Persistent atrial fibrillation (HCC) - ICD9: 427.31, ICD10: I48.19 Stable. 6. Need for vaccination - ICD9: V05.9, ICD10: Z23 - PNEUMOCOCCAL VACCINE (PREVNAR 20) Krishna Reynolds MD documented in this encounterAshtabula County Medical Center05-16-2022 Miscellaneous Notes* Telephone Encounter - Talya Juarez LPN - 08/07/2021 10:03 AM EDT Patient's pharmacy requesting new refill. Pending Prescriptions Disp Refills CLOPIDOGREL 75 MG TABLET 90 tablet 3 Sig: TAKE ONE TABLET BY MOUTH EVERY DAY TINA: Yes He will see Dr Stover on 01-15-2022. Talya Juarez LPN documented in this encounterAshtabula County Medical Center05-16-2022 Miscellaneous Notes* Telephone Encounter - Talya Juarez [...] 01-13-2022. Talya Juarez LPN documented in this encounterAshtabula County Medical Center04-28-2022 Miscellaneous Notes* Telephone Encounter - [...] rx sent to pharmacy. documented in this encounterAshtabula County Medical Center04-18-2022 Miscellaneous Notes* Telephone Encounter - Josefina Qureshi [...] advise. Josefina Qureshi LPN documented in this encounterAshtabula County Medical Center04-18-2022 Miscellaneous Notes* Telephone Encounter - Krishna Reynolds [...] Provider: KRISHNA REYNOLDS MD documented in this encounterAshtabula County Medical Center12-22-2021 History of Past illness Narrative* Problem Noted [...] of this encounter (statuses as of 06/07/2023) [facility]12[facility] of Past illness Narrative* Problem Noted [...] of this encounter (statuses as of 06/13/2023) [facility]12[facility] History of Past illness Narrative* Problem Noted [...] of this encounter (statuses as of 06/27/2023) [facility]12-22-[facility] History of Past illness Narrative* Problem Noted [...] of this encounter (statuses as of 07/05/2023) [facility]07-[facility] History of Past illness Narrative* Problem Noted [...] of this encounter (statuses as of 07/10/2021) [facility]07[facility] of Past illness Narrative* Problem Noted [...] of this encounter (statuses as of 07/10/2021) [facility] of Past illness Narrative* Problem Noted [...] of this encounter (statuses as of 07/21/2021) [facility] of Past illness Narrative* Problem Noted [...] of this encounter (statuses as of 08/07/2021) [facility] of Past illness Narrative* Problem Noted [...] of this encounter (statuses as of 08/07/2021) [facility] of Past illness Narrative* Problem Noted [...] of this encounter (statuses as of 09/09/2021) [facility] of Past illness Narrative* Problem Noted [...] of this encounter (statuses as of 10/11/2021) [facility] of Past illness Narrative* Problem Noted [...] of this encounter (statuses as of 10/17/2021) [facility] of Past illness Narrative* Problem Noted [...] of this encounter (statuses as of 10/18/2021) [facility] of Past illness Narrative* Problem Noted [...] of this encounter (statuses as of 11/13/2021) [facility] of Past illness Narrative* Problem Noted [...] of this encounter (statuses as of 01/15/2022) [facility] of Past illness Narrative* Problem Noted [...] of this encounter (statuses as of 01/25/2022) [facility] of Past illness Narrative* Problem Noted [...] of this encounter (statuses as of 01/26/2022) [facility] of Past illness Narrative* Problem Noted [...] of this encounter (statuses as of 01/29/2022) [facility] of Past illness Narrative* Problem Noted [...] of this encounter (statuses as of 02/06/2022) [facility] of Past illness Narrative* Problem Noted [...] of this encounter (statuses as of 03/16/2022) [facility] of Past illness Narrative* Problem Noted [...] of this encounter (statuses as of 04/10/2022) [facility] illness Narrative* Problem Noted [...] of this encounter (statuses as of 06/01/2022) [facility] illness Narrative* Problem Noted [...] of this encounter (statuses as of 07/24/2022) [facility] Narrative* Problem Noted [...] of this encounter (statuses as of 08/07/2022) [facility] Narrative* Problem Noted [...] of this encounter (statuses as of 08/27/2022) [facility] Narrative* Problem Noted [...] of this encounter (statuses as of 09/12/2022) [facility] Narrative* Problem Noted [...] of this encounter (statuses as of 10/02/2022) [facility] Narrative* Problem Noted [...] of this encounter (statuses as of 10/03/2022) [facility] Narrative* Problem Noted [...] of this encounter (statuses as of 10/11/2022) [facility] illness Narrative* Problem Noted [...] of this encounter (statuses as of 10/19/2022) [facility] Narrative* Problem Noted [...] of this encounter (statuses as of 10/25/2022) [facility] Narrative* Problem Noted [...] of this encounter (statuses as of 10/26/2022) [facility] Narrative* Problem Noted [...] of this encounter (statuses as of 11/20/2022) [facility] Narrative* Problem Noted [...] of this encounter (statuses as of 12/06/2022) [facility] Narrative* Problem Noted [...] of this encounter (statuses as of 12/07/2022) [facility] Narrative* Problem Noted [...] of this encounter (statuses as of 01/14/2023) [facility] Narrative* Problem Noted [...] of this encounter (statuses as of 01/16/2023) [facility] Narrative* Problem Noted [...] of this encounter (statuses as of 03/15/2023) [facility] Narrative* Problem Noted [...] of this encounter (statuses as of 05/23/2023) [facility] of Present illness Narrative* Katy Lynch, CT - 09/05/2020 1:45 PM EDT Radiology [...] 05, 2020 1:39 PM documented in this encounterAshtabula County Medical Center03-30-2021 History of Present illness Narrative* [...] 21, 2020 12:48 PM [facility]* Diagnosis Type 2 diabetes mellitus with diabetic neuropathy, with long-term current use of insulin ([facility]) documented in this encounter [facility]* Diagnosis Type 2 diabetes mellitus with diabetic neuropathy, with long-term current use of insulin ([facility]) documented in this encounter [facility] noteNo assessment information availableWProMedica [facility] Work Phone: Evaluation note* Diagnosis Coronary artery disease involving [place] coronary artery of [place]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 (HCC) documented in this encounter [facility]* Diagnosis Type 2 diabetes mellitus with diabetic neuropathy, with long-term current use of insulin (HCC)- Primary Essential hypertension Unspecified essential hypertension Chronic diastolic congestive heart failure (HCC) Chronic diastolic heart failure 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) Persistent atrial fibrillation (HCC) Atrial fibrillation Need for vaccination Need for prophylactic vaccination and inoculation against unspecified single disease documented in this encounter [facility]* Diagnosis Essential hypertension Unspecified essential hypertension documented in this encounter [facility]* Diagnosis Corns and callosities- Primary DM (diabetes mellitus), type 2 with neurological complications (HCC) Type II or unspecified type diabetes mellitus with neurological manifestations, not stated as uncontrolled documented in this encounter [facility]* Diagnosis 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)- Primary [...] ischemic heart disease documented in this encounter [facility]* Diagnosis Medicare annual wellness visit, subsequent- Primary Routine general medical examination at a [facility] care facility Type 2 diabetes mellitus with diabetic neuropathy, with long-term current use of insulin (HCC) Balance problem Other symptoms involving nervous and musculoskeletal systems Gait abnormality Abnormality of gait Chronic diastolic congestive heart failure (HCC) Chronic diastolic heart failure documented in this encounter [facility]* Diagnosis Type 2 diabetes mellitus with diabetic neuropathy, with long-term current use of insulin (HCC)- Primary Other hyperlipidemia Essential hypertension Unspecified essential hypertension documented in this encounter [facility]* Diagnosis Type 2 diabetes mellitus with diabetic neuropathy, with long-term current use of insulin (HCC)- Primary documented in this encounter [facility]* Diagnosis Statin intolerance- Primary Other drug allergy Type 2 diabetes mellitus with diabetic neuropathy, with long-term current use of insulin (HCC) Chronic diastolic congestive heart failure (HCC) Chronic diastolic heart failure Essential hypertension Unspecified essential hypertension 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) Other hyperlipidemia documented in this encounter [facility]* Diagnosis Coronary artery disease involving [place] heart without angina pectoris, unspecified vessel or lesion type documented in this encounter [facility]* Diagnosis Chronic diastolic congestive heart failure (HCC) Chronic diastolic heart failure ROBIN (dyspnea on exertion) Other dyspnea and respiratory abnormality documented in this encounter [facility]* Diagnosis Coronary artery disease of [place] artery of [place] heart with stable angina pectoris ([facility]) documented in this encounter [facility]* Diagnosis Ulcer of right leg, limited to breakdown of skin ([facility])- Primary Venous (peripheral) insufficiency Unspecified venous (peripheral) insufficiency Chronic diastolic congestive heart failure (HCC) Chronic diastolic heart failure Type 2 diabetes mellitus with diabetic neuropathy, with long-term current use of insulin ([facility]) Need for COVID-19 vaccine Essential hypertension Unspecified essential hypertension documented in this encounter [facility]* Diagnosis Ulcer of right leg, limited to breakdown of skin ([facility])- Primary documented in this encounter [facility]* Diagnosis Corns and callosities- Primary DM (diabetes mellitus), type 2 with neurological complications ([facility]) Type II or unspecified type diabetes mellitus with neurological manifestations, not stated as uncontrolled documented in this encounter [facility]* Diagnosis Onset Date Resolution Status Lower extremity edema acute Ulcer of right lower extremity acute Type 2 diabetes mellitus [facility] Work Phone: Evaluation note* Diagnosis Onset Date Resolution Status Lower extremity edema acute Ulcer of right lower extremity acute Type 2 diabetes mellitus [facility] Lower extremity edema acute Ulcer of right lower extremity acute Type 2 diabetes mellitus [facility] Work Phone: Evaluation note* Diagnosis Type 2 diabetes mellitus with diabetic neuropathy, with long-term current use of insulin ([facility]) documented in this encounter [facility]* Diagnosis Type 2 diabetes mellitus with diabetic neuropathy, with long-term current use of insulin ([facility])- Primary Essential hypertension Unspecified essential hypertension Other hyperlipidemia Venous (peripheral) insufficiency Unspecified venous (peripheral) insufficiency Chronic diastolic congestive heart failure (HCC) Chronic diastolic heart failure Class 3 severe obesity due to excess calories with serious comorbidity and body mass index (BMI) of 45.0 to 49.9 in adult ([facility]) Screening for colon cancer Special screening for malignant neoplasms, colon Encounter for immunization Need for other specified prophylactic vaccination against single bacterial disease [facility] Diagnosis Onset Date Resolution Status Lower extremity edema acute Ulcer of right lower extremity acute Type 2 diabetes mellitus chr onic Lower extremity edema acute Ulcer of right lower extremity acute Type 2 diabetes mellitus chr onic Lower extremity edema acute [facility] Work Phone: Evaluation note* Diagnosis 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) Other hyperlipidemia Statin intolerance Other drug allergy Atherosclerosis of aorta (HCC) Atherosclerosis of aorta [facility] Diagnosis Onset Date Resolution Status Lower [...] of both lower extremities with inflammation acute [id number] acute Venous stasis ulcer of right lower leg with edema of right lower leg acute Atherosclerotic heart diseas e of [place] coronary artery without angina pectoris chronic CAD (coronary artery disease) chronic Chronic venous insufficiency chronic Essential hypertension chron ic GERD (gastroesophageal reflux disease) chronic HLD (hyperlipidemia) chronic Left atrial enlargement [place] Morbid obesity due to excess calories chronic Paroxysmal atrial fibrillation chronic Presence of stent in coronary artery June, chronic Pure hypercholesterolemia ch ronic Type 2 diabetes mellitus chr onic [facility] Work Phone: Evaluation note* Diagnosis Onset Date [...] of both lower extremities with inflammation acute [id number] acute Venous stasis ulcer of right lower leg with edema of right lower leg acute Atherosclerotic heart diseas e of [place] coronary artery without angina pectoris chronic CAD (coronary artery disease) chronic Chronic venous insufficiency chronic Essential hypertension chron ic GERD (gastroesophageal reflux disease) chronic HLD (hyperlipidemia) chronic Left atrial enlargement [place] Morbid obesity due to excess calories [...] of both lower extremities with inflammation acute [id number] acute Venous stasis ulcer of right lower leg with edema of right lower leg acute Atherosclerotic heart diseas e of [place] coronary artery without angina pectoris chronic CAD (coronary artery disease) chronic Chronic venous insufficiency chronic Essential hypertension chron ic GERD (gastroesophageal reflux disease) chronic HLD (hyperlipidemia) chronic Left atrial enlargement [place] Morbid obesity due to excess calories chronic Paroxysmal atrial fibrillation chronic Presence of stent in coronary artery June, chronic Pure hypercholesterolemia ch ronic Type 2 diabetes mellitus chr onic [facility] Work Phone: Evaluation note* Diagnosis Type 2 diabetes mellitus with diabetic neuropathy, with long-term current use of insulin (HCC)- Primary Other hyperlipidemia [facility] Diagnosis Onset Date Resolution Status Lower [...] of both lower extremities with inflammation acute [id number] acute Venous stasis ulcer of right lower leg with edema of right lower leg acute Atherosclerotic heart diseas e of [place] coronary artery without angina pectoris chronic CAD (coronary artery disease) chronic Chronic venous insufficiency chronic Essential hypertension chron ic GERD (gastroesophageal reflux disease) chronic HLD (hyperlipidemia) chronic Left atrial enlargement [place] Morbid obesity due to excess calories [...] of both lower extremities with inflammation acute [id number] acute Venous stasis ulcer of right lower leg with edema of right lower leg acute Atherosclerotic heart diseas e of [place] coronary artery without angina pectoris chronic CAD (coronary artery disease) chronic Chronic venous insufficiency chronic Essential hypertension chron ic GERD (gastroesophageal reflux disease) chronic HLD (hyperlipidemia) chronic Left atrial enlargement [place] Morbid obesity due to excess calories chronic Paroxysmal atrial fibrillation chronic Presence of stent in coronary artery June, chronic Pure hypercholesterolemia ch ronic Type 2 diabetes mellitus [facility] Work Phone: Evaluation note* Diagnosis Onset [...] of both lower extremities with inflammation acute [id number] acute Venous stasis ulcer of right lower leg with edema of right lower leg acute Atherosclerotic heart diseas e of [place] coronary artery without angina pectoris chronic CAD (coronary artery disease) chronic Chronic venous insufficiency chronic Essential hypertension chron ic GERD (gastroesophageal reflux disease) chronic HLD (hyperlipidemia) chronic Left atrial enlargement [place] Morbid obesity due to excess calories [...] of both lower extremities with inflammation acute [id number] acute Venous stasis ulcer of right lower leg with edema of right lower leg acute Atherosclerotic heart diseas e of [place] coronary artery without angina pectoris chronic CAD (coronary artery disease) chronic Chronic venous insufficiency chronic Essential hypertension chron ic GERD (gastroesophageal reflux disease) chronic HLD (hyperlipidemia) chronic Left atrial enlargement [place] Morbid obesity due to excess calories chronic Paroxysmal atrial fibrillation chronic Presence of stent in coronary artery June, chronic Pure hypercholesterolemia ch ronic Type 2 diabetes mellitus [facility] Work Phone: Evaluation note* Diagnosis Medicare annual wellness visit, subsequent- Primary Routine general medical examination at a health care facility 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) Other hyperlipidemia Statin intolerance Other drug allergy Atherosclerosis of aorta (HCC) Atherosclerosis of aorta Essential hypertension Unspecified essential hypertension Type 2 diabetes mellitus with diabetic neuropathy, with long-term current use of insulin (HCC) Chronic diastolic congestive heart failure (HCC) Chronic diastolic heart failure Persistent atrial fibrillation (HCC) Atrial fibrillation [facility] Diagnosis 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) Chronic diastolic congestive heart failure (HCC) Chronic diastolic heart failure Essential hypertension Unspecified essential hypertension [facility] Type 2 diabetes mellitus with diabetic neuropathy, with long-term current use of insulin (HCC)- Primary [facility] Diagnosis Hydrocele, acquired- Primary Other hyperlipidemia [facility] Diagnosis Hydrocele, acquired [facility] Diagnosis Onset Date Resolution Status Balance disorder acute Edema of right lower leg acu te History of coronary artery stent placement acute History of decompression of ulnar nerve acute History of tonsillectomy acu te JAMES (obstructive sleep apnea) acute Right leg swelling acute Tobacco abuse acute Tobacco abuse counseling acu te 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 [id number] acute Venous stasis ulcer of right lower leg with edema of right lower leg acute Atherosclerotic heart diseas e of [place] coronary artery without angina pectoris chronic CAD (coronary artery disease) chronic Chronic venous insufficiency chronic Essential hypertension chron ic GERD (gastroesophageal reflux disease) chronic HLD (hyperlipidemia) chronic Left atrial enlargement bolt [place] Morbid obesity due to excess calories chronic Paroxysmal atrial fibrillation chronic Presence of stent in coronary artery June, chronic Pure hypercholesterolemia [facility] Type 2 diabetes mellitus [facility] Work Phone: Evaluation note* Diagnosis Hydrocele, acquired- Primary Testicular cyst Other specified disorder of male genital organs [facility] Diagnosis Elbow mass, right- Primary Essential hypertension Unspecified essential hypertension [facility] Diagnosis Right elbow pain- Primary Pain in joint, upper arm [facility] Diagnosis Right elbow pain Pain in joint, upper arm [facility] Diagnosis Elbow mass, right [facility] Diagnosis Type 2 diabetes mellitus with diabetic neuropathy, with long-term current use of insulin ([facility]) Chronic diastolic congestive heart failure (HCC) Chronic diastolic heart failure 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) Essential [...] (HCC) Morbid obesity Coronary artery disease of [place] artery of [place] heart with stable angina pectoris ([facility])- Primary Chronic diastolic congestive heart failure (HCC) Chronic diastolic heart failure Persistent atrial fibrillation (HCC) Atrial fibrillation Essential hypertension Unspecified essential hypertension Other hyperlipidemia Class 3 severe obesity due to excess calories with serious comorbidity and body mass index (BMI) of 45.0 to 49.9 in adult ([facility]) Statin intolerance Other drug allergy Atherosclerosis of aorta ([facility]) Atherosclerosis of aorta [facility]* Diagnosis Type 2 diabetes mellitus with diabetic neuropathy, with long-term current use of insulin ([facility]) Chronic diastolic congestive heart failure (HCC) Chronic diastolic heart failure Coronary artery disease of [place] artery of [place] heart with stable angina pectoris ([facility]) Essential hypertension Unspecified essential hypertension Other hyperlipidemia Persistent atrial fibrillation ([facility]) Atrial fibrillation Gastroesophageal reflux disease, unspecified whether esophagitis present Dyspnea on exertion Other dyspnea and respiratory abnormality Valvular heart disease Endocarditis, valve unspecified, unspecified cause Benign prostatic hyperplasia, unspecified whether lower urinary tract symptoms present Obesity, Class III, BMI 40-49.9 (morbid obesity) ([facility]) Morbid obesity Type 2 diabetes mellitus with diabetic neuropathy, with long-term current use of insulin ([facility]) [facility]* Diagnosis Type 2 diabetes mellitus with diabetic neuropathy, with long-term current use of insulin ([facility]) Chronic diastolic congestive heart failure (HCC) Chronic diastolic heart failure Coronary artery disease of [place] artery of [place] heart with stable angina pectoris ([facility]) Essential hypertension Unspecified essential hypertension [...] (diabetes mellitus), type 2 with neurological complications ([facility])- Primary Type II or unspecified type diabetes mellitus with neurological manifestations, not stated as uncontrolled Corns and callosities [facility] Diagnosis Type 2 diabetes mellitus with diabetic neuropathy, with long-term current use of insulin (HCC) Chronic diastolic congestive heart failure (HCC) Chronic diastolic heart failure 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) Essential [...] insulin (HCC)- Primary Coronary artery disease involving [place] heart without angina pectoris, unspecified vessel or lesion type Chronic diastolic congestive heart failure (HCC) Chronic diastolic heart failure Essential hypertension Unspecified essential hypertension Screening for depression Encounter for screening examination for other mental health and behavioral disorders [facility]* Diagnosis Type 2 diabetes mellitus with diabetic neuropathy, with long-term current use of insulin (HCC) Chronic diastolic congestive heart failure (HCC) Chronic diastolic heart failure 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) Essential [...] [facility]* Diagnosis Chronic diastolic congestive heart failure (HCC) Chronic diastolic heart failure Type 2 diabetes mellitus with diabetic neuropathy, with long-term current use of insulin (HCC) Chronic diastolic congestive heart failure (HCC) Chronic diastolic heart failure 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) Essential [...] (HCC) Morbid obesity documented in this encounter [facility] note* Diagnosis Type 2 diabetes mellitus with diabetic neuropathy, with long-term current use of insulin ([facility]) Chronic diastolic congestive heart failure (HCC) Chronic diastolic heart failure 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) Essential [...] neuropathy, with long-term current use of insulin ([facility])- Primary documented in this encounter [facility] note* Diagnosis Type 2 diabetes mellitus with diabetic neuropathy, with long-term current use of insulin ([facility]) Chronic diastolic congestive heart failure (HCC) Chronic diastolic heart failure Coronary artery disease of [place] artery of [place] heart with stable angina pectoris ([facility]) Essential hypertension Unspecified essential hypertension Other hyperlipidemia Persistent atrial fibrillation (HCC) Atrial fibrillation Gastroesophageal reflux disease, unspecified whether esophagitis present Dyspnea on exertion Other dyspnea and respiratory abnormality Valvular heart disease Endocarditis, valve unspecified, unspecified cause Benign prostatic hyperplasia, unspecified whether lower urinary tract symptoms present Obesity, Class III, BMI 40-49.9 (morbid obesity) ([facility]) Morbid obesity Type 2 diabetes mellitus with diabetic neuropathy, with long-term current use of insulin ([facility]) documented in this encounter [facility] note* Diagnosis Type 2 diabetes mellitus with diabetic neuropathy, with long-term current use of insulin ([facility]) Chronic diastolic congestive heart failure (HCC) Chronic diastolic heart failure Coronary artery disease of [place] artery of [place] heart with stable angina pectoris ([facility]) Essential hypertension Unspecified essential hypertension [...] Unspecified essential hypertension 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) documented in this encounter [facility] note* Diagnosis Type 2 diabetes mellitus with diabetic neuropathy, with long-term current use of insulin (HCC) Chronic diastolic congestive heart failure (HCC) Chronic diastolic heart failure 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) Essential hypertension Unspecified essential hypertension Other hyperlipidemia Persistent atrial fibrillation (HCC) Atrial fibrillation Gastroesophageal reflux disease, unspecified whether esophagitis present Dyspnea on exertion Other dyspnea and respiratory abnormality Valvular heart disease Endocarditis, valve unspecified, unspecified cause Benign prostatic hyperplasia, unspecified whether lower urinary tract symptoms present Obesity, Class III, BMI 40-49.9 (morbid obesity) ([facility]) Morbid obesity DM (diabetes mellitus), type 2 with neurological complications ([facility])- Primary Type II or unspecified type diabetes mellitus with neurological manifestations, not stated as uncontrolled Corns and callosities documented in this encounter [facility] note* Diagnosis Type 2 diabetes mellitus with diabetic neuropathy, with long-term current use of insulin (HCC) Chronic diastolic congestive heart failure (HCC) Chronic diastolic heart failure 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) Essential hypertension Unspecified essential hypertension Other hyperlipidemia Persistent atrial fibrillation (HCC) Atrial fibrillation Gastroesophageal reflux disease, unspecified whether esophagitis present Dyspnea on exertion Other dyspnea and respiratory abnormality Valvular heart disease Endocarditis, valve unspecified, unspecified cause Benign prostatic hyperplasia, unspecified whether lower urinary tract symptoms present Obesity, Class III, BMI 40-49.9 (morbid obesity) ([facility]) Morbid obesity Medicare annual wellness visit, subsequent- Primary Routine general medical examination at a health care facility Encounter for immunization Need for other specified prophylactic vaccination against single bacterial disease Chronic diastolic congestive heart failure (HCC) Chronic diastolic heart failure Atrial fibrillation, unspecified type ([facility]) Class 3 severe obesity due to excess calories with serious comorbidity and body mass index (BMI) of 45.0 to 49.9 in adult ([facility]) Type 2 diabetes mellitus with diabetic neuropathy, with long-term current use of insulin (HCC) Essential hypertension Unspecified essential hypertension 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) Persistent atrial fibrillation (HCC) Atrial fibrillation Venous (peripheral) insufficiency Unspecified venous (peripheral) insufficiency Other hyperlipidemia [facility]* Diagnosis Type 2 diabetes mellitus with diabetic neuropathy, with long-term current use of insulin (HCC) Chronic diastolic congestive heart failure (HCC) Chronic diastolic heart failure Coronary artery disease of [place] artery of [place] heart with stable angina pectoris Essential hypertension [...] obesity) Morbid obesity Coronary artery disease of [place] artery of [place] heart with stable angina pectoris- Primary Chronic diastolic congestive heart failure (HCC) Chronic diastolic heart failure Atherosclerosis of aorta Persistent atrial fibrillation (HCC) Atrial fibrillation Essential hypertension Unspecified essential hypertension Other hyperlipidemia Statin intolerance Other drug allergy ROBIN (dyspnea on exertion) Other dyspnea and respiratory abnormality documented in this encounter [facility] note* Diagnosis Type 2 diabetes mellitus with diabetic neuropathy, with long-term current use of insulin (HCC) Chronic diastolic congestive heart failure (HCC) Chronic diastolic heart failure Coronary artery disease of [place] artery of [place] heart with stable angina pectoris Essential hypertension [...] Unspecified essential hypertension documented in this encounter [facility] note* Diagnosis Type 2 diabetes mellitus with diabetic neuropathy, with long-term current use of insulin (HCC) Chronic diastolic congestive heart failure (HCC) Chronic diastolic heart failure Coronary artery disease of [place] artery of [place] heart with stable angina pectoris Essential hypertension [...] (HCC) Morbid obesity Coronary artery disease of [place] artery of [place] heart with stable angina pectoris ROBIN (dyspnea on exertion) Other dyspnea and respiratory abnormality documented in this encounter [facility] note* Diagnosis Type 2 diabetes mellitus with diabetic neuropathy, with long-term current use of insulin ([facility]) Chronic diastolic congestive heart failure (HCC) Chronic diastolic heart failure Coronary artery disease of [place] artery of [place] heart with stable angina pectoris Essential hypertension [...] (HCC) Morbid obesity Coronary artery disease of [place] artery of [place] heart with stable angina pectoris ROBIN (dyspnea on exertion) Other dyspnea and respiratory abnormality documented in this encounter [facility] note* Diagnosis Type 2 diabetes mellitus with diabetic neuropathy, with long-term current use of insulin ([facility]) Chronic diastolic congestive heart failure (HCC) Chronic diastolic heart failure Coronary artery disease of [place] artery of [place] heart with stable angina pectoris Essential hypertension Unspecified essential hypertension Other hyperlipidemia Persistent atrial fibrillation (HCC) Atrial fibrillation Gastroesophageal reflux disease, unspecified whether esophagitis present Dyspnea on exertion Other dyspnea and respiratory abnormality Valvular heart disease Endocarditis, valve unspecified, unspecified cause Benign prostatic hyperplasia, unspecified whether lower urinary tract symptoms present Obesity, Class III, BMI 40-49.9 (morbid obesity) ([facility]) Morbid obesity Type 2 diabetes mellitus with diabetic neuropathy, with long-term current use of insulin ([facility]) documented in this encounter [facility] note* Diagnosis Type 2 diabetes mellitus with diabetic neuropathy, with long-term current use of insulin ([facility]) Chronic diastolic congestive heart failure (HCC) Chronic diastolic heart failure Coronary artery disease of [place] artery of [place] heart with stable angina pectoris Essential hypertension Unspecified essential hypertension Other hyperlipidemia Persistent atrial fibrillation (HCC) Atrial fibrillation Gastroesophageal reflux disease, unspecified whether esophagitis present Dyspnea on exertion Other dyspnea and respiratory abnormality Valvular heart disease Endocarditis, valve unspecified, unspecified cause Benign prostatic hyperplasia, unspecified whether lower urinary tract symptoms present Obesity, Class III, BMI 40-49.9 (morbid obesity) ([facility]) Morbid obesity DM (diabetes mellitus), type 2 with neurological complications ([facility])- Primary Type II or unspecified type diabetes mellitus with neurological manifestations, not stated as uncontrolled [place] or callus Corns and callosities documented in this encounter [facility] for referral (narrative)* Outpatient Procedure (Routine) - Closed Specialty Diagnoses / Procedures Referred By Contac t Referred To [facility] Diagnoses Screening for ischemic heart disease Procedures ECG COMPLETE ECG ROUTINE ECG W/LEAST 12 [facility] W/I&R Regulo Stover MD [address] [place] [address] [facility] [place] [address] [place] [address] Referral ID Status Reason Start Date Expiration Date V isits Requested Visits Authorized [id number] Closed Auto-Generate d Referral 01/09/2022 01/09/2023 1 1 [facility] for referral (narrative)* Diagnostic Procedure Only (Routine) - Authorized Specialty Diagnoses / Procedures Referred By Contac t Referred To Contact US IMAGING Diagnoses Hydrocele, acquired Procedures US SCROTUM AND CONTENTS US SCROTUM & CONTENTS Krishna Reynolds MD [facility] [place] [address] Us Imaging [id number] Referral ID Status Reason Start Date Expiration Date Visits Requested Visits Authorized [id number] Authorized Auto-Generat ed Referral 07/04/2023 08/02/2024 1 1 [facility] for referral (narrative)* Diagnostic Procedure Only (Routine) - Pending Review Specialty Diagnoses / Procedures Referred By Contac t Referred To Contact XR IMAGING Diagnoses Right elbow pain Procedures XR ELBOW GENERAL 2V AP/LAT RIGHT RADEX ELBOW 2 VIEWS Kaila Jimenez PA-C [address] [place] [address] [place] [address] Referral ID Status Reason Start Date Expiration Date Visits Requested Visits Authorized [id number] Pending Review Auto-Generat ed Referral 09/11/2023 10/10/2024 1 1 [facility] for referral (narrative)No reason for referral information [facility] N[facility]* Outpatient Procedure (Routine) - Closed Specialty Diagnoses / Procedures Referred By Aranza t Referred To Contact [facility] Diagnoses Chronic diastolic congestive heart failure (HCC) ROBIN (dyspnea on exertion) Procedures ECHO ECHO TTHRC R-T 2D W/WOM-MODE COMPL SPEC&COLR D Regulo Stover MD [address] [place] [address] [facility] [place] [address] [place] [address] Referral ID Status Reason Start Date Expiration Date V isits Requested Visits Authorized [id number] Closed Auto-Generate d Referral 08/13/2022 08/13/2023 1 1 [facility] for visit Narrative* Diagnostic Procedure Only (Routine) - Closed Specialty Diagnoses / Procedures Referred By Aranza t Referred To Contact XR IMAGING Diagnoses Right elbow pain Procedures XR ELBOW GENERAL 2V AP/LAT RIGHT RADEX ELBOW 2 VIEWS Kaila Jimenez, PA-C [address] [place] [address] Xr Imaging [place] [address] Referral ID Status Reason Start Date Expiration Date V isits Requested Visits Authorized [id number] Closed Auto-Generate d Referral 09/11/2023 10/10/2024 1 1 [facility] for visit Narrative* Diagnostic Procedure Only (Routine) - Closed Specialty Diagnoses / Procedures Referred By Aranza t Referred To Contact [facility]LECULAR [facility] FUNCTIONAL IMAGING Diagnoses Coronary artery disease of [place] artery of [place] heart with stable angina pectoris ROBIN (dyspnea on exertion) Procedures NM CARDIAC PERF STRESS/PHARM MYOCARDIAL SPECT MULTIPLE STUDIES Regulo Stover MD [address] [place] [address] Phone: tel: fax: [facility] [address] [place] [address] Phone: tel: Referral ID Status Reason Start Date Expiration Date V isits Requested Visits Authorized [id number] Closed Auto-Generate d Referral 08/10/2024 09/09/2025 1 1 [facility] Summary Purpose Family History No Family History Records Found Relationship Condition Age at Onset Recorded Date/T tyra Not Specified Family history of ce rebrovascular accident (CVA) Unknown Family history of hypertension Unknown Family history of hyperlipidemia Unknown Advance Directives No Advanced Directives Records FoundDocuments on File Type Date Recorded Patient It Auditor Expl anation Advance Directive(s) 2020 2:35 PM Advance Directive(s) 04/19/2020 11:53 AM Advance Directive(s) 06/04/2013 2:29 PM Advance Directive Response Recorded Date/ Time Advance Directives Yes December 29, 2019 7:19am Living Will Yes August 04, 2020 1 0:33am Power of Placing Judge Yes August 04, 2020 10:33am Documents on File Type Date Recorded Patient It Auditor Expl anation Advance Directive(s) 06/04/2013 2:29 PM Documents on File Type Date Recorded Patient It Auditor Expl anation Advance Directive(s) 06/04/2013 2:29 PM Advance Directive Response Recorded Date/ Time Advance Directives Yes December 29, 2019 6:19am Living Will Yes August 04, 2020 9 :33am Power of Placing Judge Yes August 04, 2020 9:33am Advance Directive Response Recorded Date/ Time Living Will Yes August 04, 2020 1 0:33am Do you have a Healthcare Power of Placing Judge? Yes August 04, 2020 10:33am Living Will Yes February 22 1:23am Do you have a Healthcare Power of Placing Judge? Yes February 23, 2024 1:23am Advance Directives Yes December 29, 2019 7:19am Advance Directive Response Recorded Date/ Time Living Will Yes February 22 1:23am Do you have a Healthcare Power of Placing Judge? Yes February 23, 2024 1:23am Advance Directives Yes December 29, 2019 7:19am Advance Directive Response Recorded Date/ Time Advance Directives Yes December 29, 2019 7:19am Chief Complaint and Reason for Visit Chief Complaint PHASE III MA INTENANCE SELF-PAY PHASE III MAINTENANCE SELF-PAY PHASE III MAINTENANCE SELF-PAY PHASE III MAINTENANCE SELF-PAY Chief Complaint PHASE III MA INTENANCE SELF-PAY PHASE III MAINTENANCE SELF-PAY 2022-CR PHASE III MAINTENANCE SELF-PAY CR PHASE III MAINTENANCE SELF-PAY CR PHASE III MAINTENANCE SELF-PAY Chief Complaint CR [...] veins of both lower extremities with inflammation [id number] Venous stasis ulcer of right lower leg with edema of right lower leg Atherosclerotic heart disease of [place] coronary artery without angina pectoris CAD (coronary [...] veins of both lower extremities with inflammation [id number] Venous stasis ulcer of right lower leg with edema of right lower leg Atherosclerotic heart disease of [place] coronary artery without angina pectoris CAD (coronary [...] veins of both lower extremities with inflammation [id number] Venous stasis ulcer of right lower leg with edema of right lower leg Atherosclerotic heart disease of [place] coronary artery without angina pectoris CAD (coronary [...] veins of both lower extremities with inflammation [id number] Venous stasis ulcer of right lower leg with edema of right lower leg Atherosclerotic heart disease of [place] coronary artery without angina pectoris CAD (coronary [...] veins of both lower extremities with inflammation [id number] Venous stasis ulcer of right lower leg with edema of right lower leg Atherosclerotic heart disease of [place] coronary artery without angina pectoris CAD (coronary [...] veins of both lower extremities with inflammation [id number] Venous stasis ulcer of right lower leg with edema of right lower leg Atherosclerotic heart disease of [place] coronary artery without angina pectoris CAD (coronary [...] veins of both lower extremities with inflammation [id number] Venous stasis ulcer of right lower leg with edema of right lower leg Atherosclerotic heart disease of [place] coronary artery without angina pectoris CAD (coronary [...] veins of both lower extremities with inflammation [id number] Venous stasis ulcer of right lower leg with edema of right lower leg Atherosclerotic heart disease of [place] coronary artery without angina pectoris CAD (coronary [...] veins of both lower extremities with inflammation [id number] Venous stasis ulcer of right lower leg with edema of right lower leg Atherosclerotic heart disease of [place] coronary artery without angina pectoris CAD (coronary [...] veins of both lower extremities with inflammation [id number] Venous stasis ulcer of right lower leg with edema of right lower leg Atherosclerotic heart disease of [place] coronary artery without angina pectoris CAD (coronary [...] Referral Specialty Diagnoses / Procedures Referred By Contac t Referred To Contact [facility] Diagnoses Balance problem Gait abnormality Procedures CONSULT TO PHYSICAL THERAPY PHYSICAL THERAPY EVALUATION HIGH COMPLEX 45 MINS 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, 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, 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 [address] [place] [address] [facility] [place] [address] [place] [address] Referral ID Status Reason Start Date Expiration Date Visits Requested Visits Authorized [id number] Authorized PCP Requested Referral Auto-Generate d Referral 01/26/2022 01/26/2023 99 99 Specialty Diagnoses / Procedures Referred By Contac t Referred To Contact Diagnoses Type 2 diabetes mellitus with diabetic neuropathy, with long-term current use of insulin (HCC) Procedures CONSULT TO DIABETES EDUCATION OFFICE/OUTPATIENT [facility] 60-74 MINUTES Older, Leila, PEREZ.SHOVEL ENGINEER [address] [place] [address] Referral ID Status Reason Start Date Expiration Date Visits Requested Visits Authorized [id number] Authorized PCP Requested Referral 01/26/2022 01/26/2023 1 1 Specialty Diagnoses / Procedures Referred By Contac t Referred To Contact Urology Diagnoses Hydrocele, acquired Testicular cyst Procedures CONSULT TO UROLOGY Krishna Reynolds MD [address] [place] [address] Referral ID Status Reason Start Date Expiration Date Visits Requested Visits Authorized [id number] Ref Not Required PCP Requested Referral 07/26/2023 07/25/2024 1 1 Specialty Diagnoses / Procedures Referred By Contac t Referred To Contact Orthopedics Diagnoses Elbow mass, right Procedures CONSULT TO ORTHOPAEDICS OFFICE/OUTPATIENT [facility] 60 MINUTES Krishna Reynolds MD [address] [place] [address] Referral ID Status Reason Start Date Expiration Date Visits Requested Visits Authorized [id number] Authorized PCP Requested Referral 09/10/2023 09/09/2024 1 1 Additional Source Comments (unrecognized sect ion and content) No Status Records FoundNo Status Records FoundNo Status Records FoundNo Status Records Found INFORMATION SOURCE (unrecogn ized section and content) DATE CREATED AUTHOR 07/29/2020 [facility] DATE CREATED AUTHOR AUTHOR'S ORGANIZ ATION 01/21/2025 [facility] DATE CREATED AUTHOR AUTHOR'S ORGANIZ ATION 02/03/2025 [facility] DATE CREATED AUTHOR AUTHOR'S ORGANIZ ATION 02/03/2025 [facility] Source Comments (unrecognize d section and content) In the event this informatio n is protected by the Federal Confidentiality of Alcohol and Drug Abuse Patient Records regulations: The Federal rules restrict any use of the information to criminally investigate or prosecute any alcohol or drug abuse patient.[facility] the event this information is protected by the Federal Confidentiality of Alcohol and Drug Abuse Patient Records regulations: The Federal rules restrict any use of the information to criminally investigate or prosecute any alcohol or drug abuse patient.[facility] Center[facility] the event this information is protected by the Federal Confidentiality of Alcohol and Drug Abuse Patient Records regulations: The Federal rules restrict any use of the information to criminally investigate or prosecute any alcohol or drug abuse patient.[facility] Center[facility] the event this information is protected by the Federal Confidentiality of Alcohol and Drug Abuse Patient Records regulations: The Federal rules restrict any use of the information to criminally investigate or prosecute any alcohol or drug abuse patient.[facility] CenterIn the event this information is protected by the Federal Confidentiality of Alcohol and Drug Abuse Patient Records regulations: The Federal rules restrict any use of the information to criminally investigate or prosecute any alcohol or drug abuse patient.[facility] CenterIn the event this information is protected by the Federal Confidentiality of Alcohol and Drug Abuse Patient Records regulations: The Federal rules restrict any use of the information to criminally investigate or prosecute any alcohol or drug abuse patient.[facility] CenterIn the event this information is protected by the Federal Confidentiality of Alcohol and Drug Abuse Patient Records regulations: The Federal rules restrict any use of the information to criminally investigate or prosecute any alcohol or drug abuse patient.[facility] CenterIn the event this information is protected by the Federal Confidentiality of Alcohol and Drug Abuse Patient Records regulations: The Federal rules restrict any use of the information to criminally investigate or prosecute any alcohol or drug abuse patient.[facility] CenterIn the event this information is protected by the Federal Confidentiality of Alcohol and Drug Abuse Patient Records regulations: The Federal rules restrict any use of the information to criminally investigate or prosecute any alcohol or drug abuse patient.[facility] CenterIn the event this information is protected by the Federal Confidentiality of Alcohol and Drug Abuse Patient Records regulations: The Federal rules restrict any use of the information to criminally investigate or prosecute any alcohol or drug abuse patient.[facility] CenterIn the event this information is protected by the Federal Confidentiality of Alcohol and Drug Abuse Patient Records regulations: The Federal rules restrict any use of the information to criminally investigate or prosecute any alcohol or drug abuse patient.[facility] CenterIn the event this information is protected by the Federal Confidentiality of Alcohol and Drug Abuse Patient Records regulations: The Federal rules restrict any use of the information to criminally investigate or prosecute any alcohol or drug abuse patient.[facility] CenterIn the event this information is protected by the Federal Confidentiality of Alcohol and Drug Abuse Patient Records regulations: The Federal rules restrict any use of the information to criminally investigate or prosecute any alcohol or drug abuse patient.[facility] CenterIn the event this information is protected by the Federal Confidentiality of Alcohol and Drug Abuse Patient Records regulations: The Federal rules restrict any use of the information to criminally investigate or prosecute any alcohol or drug abuse patient.[facility] CenterIn the event this information is protected by the Federal Confidentiality of Alcohol and Drug Abuse Patient Records regulations: The Federal rules restrict any use of the information to criminally investigate or prosecute any alcohol or drug abuse patient.[facility] CenterIn the event this information is protected by the Federal Confidentiality of Alcohol and Drug Abuse Patient Records regulations: The Federal rules restrict any use of the information to criminally investigate or prosecute any alcohol or drug abuse patient.[facility] CenterIn the event this information is protected by the Federal Confidentiality of Alcohol and Drug Abuse Patient Records regulations: The Federal rules restrict any use of the information to criminally investigate or prosecute any alcohol or drug abuse patient.[facility] CenterIn the event this information is protected by the Federal Confidentiality of Alcohol and Drug Abuse Patient Records regulations: The Federal rules restrict any use of the information to criminally investigate or prosecute any alcohol or drug abuse patient.[facility] CenterIn the event this information is protected by the Federal Confidentiality of Alcohol and Drug Abuse Patient Records regulations: The Federal rules restrict any use of the information to criminally investigate or prosecute any alcohol or drug abuse patient.[facility] CenterIn the event this information is protected by the Federal Confidentiality of Alcohol and Drug Abuse Patient Records regulations: The Federal rules restrict any use of the information to criminally investigate or prosecute any alcohol or drug abuse patient.[facility] CenterIn the event this information is protected by the Federal Confidentiality of Alcohol and Drug Abuse Patient Records regulations: The Federal rules restrict any use of the information to criminally investigate or prosecute any alcohol or drug abuse patient.[facility] CenterIn the event this information is protected by the Federal Confidentiality of Alcohol and Drug Abuse Patient Records regulations: The Federal rules restrict any use of the information to criminally investigate or prosecute any alcohol or drug abuse patient.[facility] CenterIn the event this information is protected by the Federal Confidentiality of Alcohol and Drug Abuse Patient Records regulations: The Federal rules restrict any use of the information to criminally investigate or prosecute any alcohol or drug abuse patient.[facility] CenterIn the event this information is protected by the Federal Confidentiality of Alcohol and Drug Abuse Patient Records regulations: The Federal rules restrict any use of the information to criminally investigate or prosecute any alcohol or drug abuse patient.[facility] CenterIn the event this information is protected by the Federal Confidentiality of Alcohol and Drug Abuse Patient Records regulations: The Federal rules restrict any use of the information to criminally investigate or prosecute any alcohol or drug abuse patient.[facility] CenterIn the event this information is protected by the Federal Confidentiality of Alcohol and Drug Abuse Patient Records regulations: The Federal rules restrict any use of the information to criminally investigate or prosecute any alcohol or drug abuse patient.[facility] CenterIn the event this information is protected by the Federal Confidentiality of Alcohol and Drug Abuse Patient Records regulations: The Federal rules restrict any use of the information to criminally investigate or prosecute any alcohol or drug abuse patient.[facility] CenterIn the event this information is protected by the Federal Confidentiality of Alcohol and Drug Abuse Patient Records regulations: The Federal rules restrict any use of the information to criminally investigate or prosecute any alcohol or drug abuse patient.[facility] CenterIn the event this information is protected by the Federal Confidentiality of Alcohol and Drug Abuse Patient Records regulations: The Federal rules restrict any use of the information to criminally investigate or prosecute any alcohol or drug abuse patient.[facility] CenterIn the event this information is protected by the Federal Confidentiality of Alcohol and Drug Abuse Patient Records regulations: The Federal rules restrict any use of the information to criminally investigate or prosecute any alcohol or drug abuse patient.[facility] CenterIn the event this information is protected by the Federal Confidentiality of Alcohol and Drug Abuse Patient Records regulations: The Federal rules restrict any use of the information to criminally investigate or prosecute any alcohol or drug abuse patient.[facility] CenterIn the event this information is protected by the Federal Confidentiality of Alcohol and Drug Abuse Patient Records regulations: The Federal rules restrict any use of the information to criminally investigate or prosecute any alcohol or drug abuse patient.[facility] CenterIn the event this information is protected by the Federal Confidentiality of Alcohol and Drug Abuse Patient Records regulations: The Federal rules restrict any use of the information to criminally investigate or prosecute any alcohol or drug abuse patient.[facility] CenterIn the event this information is protected by the Federal Confidentiality of Alcohol and Drug Abuse Patient Records regulations: The Federal rules restrict any use of the information to criminally investigate or prosecute any alcohol or drug abuse patient.[facility] CenterIn the event this information is protected by the Federal Confidentiality of Alcohol and Drug Abuse Patient Records regulations: The Federal rules restrict any use of the information to criminally investigate or prosecute any alcohol or drug abuse patient.[facility] CenterIn the event this information is protected by the Federal Confidentiality of Alcohol and Drug Abuse Patient Records regulations: The Federal rules restrict any use of the information to criminally investigate or prosecute any alcohol or drug abuse patient.[facility] CenterIn the event this information is protected by the Federal Confidentiality of Alcohol and Drug Abuse Patient Records regulations: The Federal rules restrict any use of the information to criminally investigate or prosecute any alcohol or drug abuse patient.[facility] CenterIn the event this information is protected by the Federal Confidentiality of Alcohol and Drug Abuse Patient Records regulations: The Federal rules restrict any use of the information to criminally investigate or prosecute any alcohol or drug abuse patient.[facility] CenterIn the event this information is protected by the Federal Confidentiality of Alcohol and Drug Abuse Patient Records regulations: The Federal rules restrict any use of the information to criminally investigate or prosecute any alcohol or drug abuse patient.[facility] CenterIn the event this information is protected by the Federal Confidentiality of Alcohol and Drug Abuse Patient Records regulations: The Federal rules restrict any use of the information to criminally investigate or prosecute any alcohol or drug abuse patient.[facility] CenterIn the event this information is protected by the Federal Confidentiality of Alcohol and Drug Abuse Patient Records regulations: The Federal rules restrict any use of the information to criminally investigate or prosecute any alcohol or drug abuse patient.[facility] CenterIn the event this information is protected by the Federal Confidentiality of Alcohol and Drug Abuse Patient Records regulations: The Federal rules restrict any use of the information to criminally investigate or prosecute any alcohol or drug abuse patient.[facility] CenterIn the event this information is protected by the Federal Confidentiality of Alcohol and Drug Abuse Patient Records regulations: The Federal rules restrict any use of the information to criminally investigate or prosecute any alcohol or drug abuse patient.[facility] CenterIn the event this information is protected by the Federal Confidentiality of Alcohol and Drug Abuse Patient Records regulations: The Federal rules restrict any use of the information to criminally investigate or prosecute any alcohol or drug abuse patient.[facility] CenterIn the event this information is protected by the Federal Confidentiality of Alcohol and Drug Abuse Patient Records regulations: The Federal rules restrict any use of the information to criminally investigate or prosecute any alcohol or drug abuse patient.[facility] CenterIn the event this information is protected by the Federal Confidentiality of Alcohol and Drug Abuse Patient Records regulations: The Federal rules restrict any use of the information to criminally investigate or prosecute any alcohol or drug abuse patient.[facility] CenterIn the event this information is protected by the Federal Confidentiality of Alcohol and Drug Abuse Patient Records regulations: The Federal rules restrict any use of the information to criminally investigate or prosecute any alcohol or drug abuse patient.[facility] CenterIn the event this information is protected by the Federal Confidentiality of Alcohol and Drug Abuse Patient Records regulations: The Federal rules restrict any use of the information to criminally investigate or prosecute any alcohol or drug abuse patient.[facility] CenterIn the event this information is protected by the Federal Confidentiality of Alcohol and Drug Abuse Patient Records regulations: The Federal rules restrict any use of the information to criminally investigate or prosecute any alcohol or drug abuse patient.[facility] CenterIn the event this information is protected by the Federal Confidentiality of Alcohol and Drug Abuse Patient Records regulations: The Federal rules restrict any use of the information to criminally investigate or prosecute any alcohol or drug abuse patient.[facility] CenterIn the event this information is protected by the Federal Confidentiality of Alcohol and Drug Abuse Patient Records regulations: The Federal rules restrict any use of the information to criminally investigate or prosecute any alcohol or drug abuse patient.[facility] CenterIn the event this information is protected by the Federal Confidentiality of Alcohol and Drug Abuse Patient Records regulations: The Federal rules restrict any use of the information to criminally investigate or prosecute any alcohol or drug abuse patient.[facility] CenterIn the event this information is protected by the Federal Confidentiality of Alcohol and Drug Abuse Patient Records regulations: The Federal rules restrict any use of the information to criminally investigate or prosecute any alcohol or drug abuse patient.[facility] CenterIn the event this information is protected by the Federal Confidentiality of Alcohol and Drug Abuse Patient Records regulations: The Federal rules restrict any use of the information to criminally investigate or prosecute any alcohol or drug abuse patient.[facility] CenterIn the event this information is protected by the Federal Confidentiality of Alcohol and Drug Abuse Patient Records regulations: The Federal rules restrict any use of the information to criminally investigate or prosecute any alcohol or drug abuse patient.[facility] CenterIn the event this information is protected by the Federal Confidentiality of Alcohol and Drug Abuse Patient Records regulations: The Federal rules restrict any use of the information to criminally investigate or prosecute any alcohol or drug abuse patient.[facility] CenterIn the event this information is protected by the Federal Confidentiality of Alcohol and Drug Abuse Patient Records regulations: The Federal rules restrict any use of the information to criminally investigate or prosecute any alcohol or drug abuse patient.[facility] CenterIn the event this information is protected by the Federal Confidentiality of Alcohol and Drug Abuse Patient Records regulations: The Federal rules restrict any use of the information to criminally investigate or prosecute any alcohol or drug abuse patient.[facility] CenterIn the event this information is protected by the Federal Confidentiality of Alcohol and Drug Abuse Patient Records regulations: The Federal rules restrict any use of the information to criminally investigate or prosecute any alcohol or drug abuse patient.[facility] CenterIn the event this information is protected by the Federal Confidentiality of Alcohol and Drug Abuse Patient Records regulations: The Federal rules restrict any use of the information to criminally investigate or prosecute any alcohol or drug abuse patient.[facility] CenterIn the event this information is protected by the Federal Confidentiality of Alcohol and Drug Abuse Patient Records regulations: The Federal rules restrict any use of the information to criminally investigate or prosecute any alcohol or drug abuse patient.[facility] CenterIn the event this information is protected by the Federal Confidentiality of Alcohol and Drug Abuse Patient Records regulations: The Federal rules restrict any use of the information to criminally investigate or prosecute any alcohol or drug abuse patient.[facility] CenterIn the event this information is protected by the Federal Confidentiality of Alcohol and Drug Abuse Patient Records regulations: The Federal rules restrict any use of the information to criminally investigate or prosecute any alcohol or drug abuse patient.[facility] CenterIn the event this information is protected by the Federal Confidentiality of Alcohol and Drug Abuse Patient Records regulations: The Federal rules restrict any use of the information to criminally investigate or prosecute any alcohol or drug abuse patient.[facility] CenterIn the event this information is protected by the Federal Confidentiality of Alcohol and Drug Abuse Patient Records regulations: The Federal rules restrict any use of the information to criminally investigate or prosecute any alcohol or drug abuse patient.[facility] CenterIn the event this information is protected by the Federal Confidentiality of Alcohol and Drug Abuse Patient Records regulations: The Federal rules restrict any use of the information to criminally investigate or prosecute any alcohol or drug abuse patient.[facility] CenterIn the event this information is protected by the Federal Confidentiality of Alcohol and Drug Abuse Patient Records regulations: The Federal rules restrict any use of the information to criminally investigate or prosecute any alcohol or drug abuse patient.[facility] CenterIn the event this information is protected by the Federal Confidentiality of Alcohol and Drug Abuse Patient Records regulations: The Federal rules restrict any use of the information to criminally investigate or prosecute any alcohol or drug abuse patient.[facility] CenterIn the event this information is protected by the Federal Confidentiality of Alcohol and Drug Abuse Patient Records regulations: The Federal rules restrict any use of the information to criminally investigate or prosecute any alcohol or drug abuse patient.[facility] CenterIn the event this information is protected by the Federal Confidentiality of Alcohol and Drug Abuse Patient Records regulations: The Federal rules restrict any use of the information to criminally investigate or prosecute any alcohol or drug abuse patient.[facility] CenterIn the event this information is protected by the Federal Confidentiality of Alcohol and Drug Abuse Patient Records regulations: The Federal rules restrict any use of the information to criminally investigate or prosecute any alcohol or drug abuse patient.[facility] CenterIn the event this information is protected by the Federal Confidentiality of Alcohol and Drug Abuse Patient Records regulations: The Federal rules restrict any use of the information to criminally investigate or prosecute any alcohol or drug abuse patient.[facility] CenterIn the event this information is protected by the Federal Confidentiality of Alcohol and Drug Abuse Patient Records regulations: The Federal rules restrict any use of the information to criminally investigate or prosecute any alcohol or drug abuse patient.[facility] CenterIn the event this information is protected by the Federal Confidentiality of Alcohol and Drug Abuse Patient Records regulations: The Federal rules restrict any use of the information to criminally investigate or prosecute any alcohol or drug abuse patient.[facility] CenterIn the event this information is protected by the Federal Confidentiality of Alcohol and Drug Abuse Patient Records regulations: The Federal rules restrict any use of the information to criminally investigate or prosecute any alcohol or drug abuse patient.[facility] Reason for Visit (unrecogniz ed section and content) Reason Onset Date Comments Refill Request 07/10/2021 Reason Comments medication clarification Reason Onset Date Comments Refill Request 07/20/2021 Reason Comments Refill Request Reason Comments Established Patient 3 month follow up- l abs Reason Comments Connor Raymundoman Refill Reason Comments FMLA Paperwork Reason Comments Follow Up Reason Comments Established Patient Reason Comments Medication Problem Reason Comments Medicare Wellness Exam Reason Comments Orders Reason Onset Date Comments Population Health Navigation Outreach 04/10/2022 ACO KAELA PCSA Reason Comments Recheck 4 month [...] SCROTUM & CONTENTS Krishna Reynolds MD [address] [place] [address] [place] [address] Referral ID Status Reason Start Date Expiration Date V isits Requested Visits Authorized [id number] Closed Auto-Generate d Referral 07/04/2023 08/02/2024 1 1 Reason Comments Appointment Reason Comments Mass Reason Comments New Swelling Specialty Diagnoses / Procedures Referred By Contac t Referred To Contact Orthopedics Diagnoses Elbow mass, right Procedures CONSULT TO ORTHOPAEDICS OFFICE/OUTPATIENT NEW HIGH MDM 60 MINUTES Krishna Reynolds MD [address] [place] [address] Referral ID Status Reason Start Date Expiration Date V isits Requested Visits Authorized [id number] Closed PCP Requested Referral 09/10/2023 09/09/2024 1 [...] FUNCTIONAL IMAGING Diagnoses Coronary artery disease of [place] artery of [place] heart with stable angina pectoris ROBIN (dyspnea on exertion) Procedures NM CARDIAC PERF STRESS/PHARM MYOCARDIAL SPECT MULTIPLE STUDIES Regulo Stover MD [address] [place] [address] Phone: tel: fax: Molecular Imaging [address] [place] [id number] Phone: tel: Referral ID Status Reason Start Date Expiration Date V isits Requested Visits Authorized [id number] Closed Auto-Generate d Referral 08/10/2024 09/09/2025 1 [...] Care Teams (unrecognized sec tion and content) 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 Breaker Mechanic Relationship Specialty Start Date End Date Krishna Reynolds MD [address] [place], [place] [id number] PCP - General 08/25/09 Son Deluna [address] [facility] [address] [place] [id number] Cardiology 02/08/20 Fabrice Wadsworth MD [address] [place], [place] [id number] Nephrology 02/10/20 Mitchel Aleman [address] [place] [address] Physician Ophthalmology 03/30/20 Gary Chandler DPM [address]75 [facility] 2 [place] [address] Referring Podiatry 08/01/20 Circuit Breaker Mechanic Relationship Specialty Start Date End Date Krishna Reynolds MD [address] [place] [address] PCP - General 08/25/09 Son Deluna [address] [facility] [address] [place] [address] Cardiology 02/08/20 Fabrice Wadsworth MD [address] [place], [place] [id number] 256- Nephrology 02/10/20 Mitchel Aleman [address] [place] [address] Physician Ophthalmology 03/30/20 Gray Chandler DPM [address] [facility] 2 [place] [phone] Referring Podiatry 08/01/20 Circuit Breaker Mechanic Relationship Specialty Start Date End Date Krishna Reynolds MD [address] [place] [address] PCP - General 08/25/09 Son Deluna [address] [address] Cardiology 02/08/20 Fabrice Wadsworth MD [address] [place], [place] [id number] 586- Nephrology 02/10/20 Mitchel Aleman [address] [place] [address] Physician Ophthalmology 03/30/20 Gary Chandler DPM [address] [phone] Referring Podiatry 08/01/20 Circuit Breaker Mechanic Relationship Specialty Start Date End Date Krishna Reynolds MD [address] [place], [place] [id number] PCP - General 08/25/09 Son Deluna [address] [facility] [address] [place] [address] Cardiology 02/08/20 Fabrice Wadsworth MD [address] [place] [address] Nephrology 02/10/20 Mitchel Aleman [address] [place] [address] Physician Ophthalmology 03/30/20 Gary Chandler DPM [address] [facility] 2 [place] [phone] Referring Podiatry 08/01/20 Circuit Breaker Mechanic Relationship Specialty Start Date End Date Krishna Reynolds MD [address] [place] [address] PCP - General 08/25/09 Son Deluna [address] [address] Cardiology 02/08/20 Fabrice Wadsworth MD [address] [place], [place] [id number] 026- Nephrology 02/10/20 Mitchel Aleman [address] [place] [address] Physician Ophthalmology 03/30/20 Gary Chandler DPM [address] [phone] Referring Podiatry 08/01/20 Circuit Breaker Mechanic Relationship Specialty Start Date End Date Krishna Reynolds MD [address] [place], [place] [id number] PCP - General 08/25/09 Son Deluna [address] [facility] [address] [place] [address] Cardiology 02/08/20 Fabrice Wadsworth MD [address] [place] [address] Nephrology 02/10/20 Mitchel Aleman [address] [place] [address] Physician Ophthalmology 03/30/20 Gary Chandler DPM [address] [phone] Referring Podiatry 08/01/20 Circuit Breaker Mechanic Relationship Specialty Start Date End Date Krishna Reynolds MD [address] [place] [address] PCP - General 08/25/09 Son Deluna [address] [address] Cardiology 02/08/20 Fabrice Wadsworth MD [address] [place], [place] [phone]- Nephrology 02/10/20 Mitchel Aleman [address] [place] [address] Physician Ophthalmology 03/30/20 Gary Chandler DPM [address] [phone] Referring Podiatry 08/01/20 Circuit Breaker Mechanic Relationship Specialty Start Date End Date Krishna Reynolds MD [address] [place], [place] [id number] PCP - General 08/25/09 Son Deluna [address] [facility] [address] [place] [address] Cardiology 02/08/20 Fabrice Wadsworth MD [address] [place] [address] Nephrology 02/10/20 Mitchel Aleman [address] [place] [address] Physician Ophthalmology 03/30/20 Gary Chandler DPM [address] [facility] 2 [place] [phone] Referring Podiatry 08/01/20 Circuit Breaker Mechanic Relationship Specialty Start Date End Date Krishna Reynolds MD [address] [place] [address] PCP - General 08/25/09 Son eDluna [address] [address] Cardiology 02/08/20 Fabrice Wadsworth MD [address] [place], [place] [id number] 679- Nephrology 02/10/20 Mitchel Aleman [address] [place] [address] Physician Ophthalmology 03/30/20 Gary Chandler DPM [address] [phone] Referring Podiatry 08/01/20 Circuit Breaker Mechanic Relationship Specialty Start Date End Date Krishna Reynolds MD [address] [place] [address] PCP - General 08/25/09 Son Deluna [address] [place] [phone] Cardiology 02/08/20 Fabrice Wadsworth MD [address] [place], [place] [phone] Nephrology 02/10/20 Mitchel Aleman [address] [place] [address] Physician Ophthalmology 03/30/20 Gary Chandler, DPChristina [address] [facility] 2 [place] [phone] Referring Podiatry 08/01/20 Team Status: Active Member [...] MD Primary Care Provider Active Leila Older BAND MAKER, BAND MAKER-C Attending Provider, Referring Provi chidi Active Dr. Wood Kraus MD Other Provider Active Regulo Stover MD Other Provider Active Circuit Breaker Mechanic Relationship Specialty Start Date End Date Krishna Reynolds MD [address] [place], [place] [id number] PCP - General 08/25/09 Son Deluna [address] [place] [address] Cardiology 02/08/20 Fabrice Wadsworth MD [address] [place] [address] Nephrology 02/10/20 Mitchel Aleman [address] [place] [address] Physician Ophthalmology 03/30/20 Gary Chandler DPM [address] [place] [phone] Referring Podiatry 08/01/20 Team Status: Inactive Member Role Status Dates Dr. Krishna Reynolds MD Primary Care Provider, Atten ding Provider Active Krishna MULTANI MD Referring Provider Active Circuit Breaker Mechanic Relationship Specialty Start Date End Date Krishna Reynolds MD [address] [place] [address] PCP - General 08/25/09 Sno Deluna [address] [place] [address] Cardiology 02/08/20 Fabrice Wadsworth MD [address] [place] [address] Nephrology 02/10/20 Mitchel Aleman [address] [place] [address] Physician Ophthalmology 03/30/20 Gary Chandler, ARELIS [address] [phone] Referring Podiatry 08/01/20 Team Status: Active Member Role Status Dates Dr. Krishna Reynolds MD Primary Care Provider Active Dr. Wood Kraus MD Attending Provider Active Circuit Breaker Mechanic Relationship Specialty Start Date End Date Krishna Reynolds MD [address] [place] [address] PCP - General 08/25/09 Son Deluna [address] [place] [address] Cardiology 02/08/20 Fabrice Wadsworth MD [address] [place] [address] Nephrology 02/10/20 Mitchel Aleman [address] [place] [address] Physician Ophthalmology 03/30/20 Gary Chandler, DPChristina [address] [place] [phone] Referring Podiatry 08/01/20 Team Status: Inactive Member Role Status Dates Dr. Krishna Reynolds MD Primary Care Provider Active Dr. Wood Kraus MD Attending Provider Active Circuit Breaker Mechanic Relationship Specialty Start Date End Date Krishna Reynolds MD [address] [place] [address] PCP - General 08/25/09 Son Deluna [address] [place] [address] Cardiology 02/08/20 Fabrice Wadsworth MD [address] [place] [address] Nephrology 02/10/20 Mitchel Aleman [address] [place] [address] Physician Ophthalmology 03/30/20 Gary Chandler DPM [address] [place] [phone] Referring Podiatry 08/01/20 Circuit Breaker Mechanic Relationship Specialty Start Date End Date Krishna Reynolds MD [address] [place] [address] PCP - General 08/25/09 Son Deluna [address] [address] Cardiology 02/08/20 Fabrice Wadsworth MD [address] [place] [phone] Nephrology 02/10/20 Mitchel Aleman [facility] [place] [address] Physician Ophthalmology 03/30/20 Gary Chandler DPM [address] [facility] 2 [place] [phone] Referring Podiatry 08/01/20 Circuit Breaker Mechanic Relationship Specialty Start Date End Date Krishna Reynolds MD [address] [place], [place] [id number] PCP - General 08/25/09 Son Deluna [address] [address] Cardiology 02/08/20 Fabrice Wadsworth MD [address] [place], [place] [id number] Nephrology 02/10/20 Mitchel Aleman [address] [place] [address] Physician Ophthalmology 03/30/20 Gary Chandler DPM [address] [place] [phone] Referring Podiatry 08/01/20 Circuit Breaker Mechanic Relationship Specialty Start Date End Date Krishna Reynolds MD [address] [place], [place] [address] PCP - General 08/25/09 Son Deluna [address] [facility] [facility] [address] [place] [phone] Cardiology 02/08/20 Fabrice Wadsworth MD [address] [place] [address] Nephrology 02/10/20 Mitchel Aleman [address] [place], [place] [address] Physician Ophthalmology 03/30/20 Gary Chandler DPM [address] [place] [phone] Referring Podiatry 08/01/20 Circuit Breaker Mechanic Relationship Specialty Start Date End Date Krishna Reynolds MD [address] [place], [place] [id number] PCP - General 08/25/09 Son Deluna [address] [place] [address] Cardiology 02/08/20 Fabrice Wadsworth MD [address] [place], [place] [phone] Nephrology 02/10/20 Mitchel Aleman [address] [place], [place] [phone] Physician Ophthalmology 03/30/20 Gary Chandler DPM [address] [place] [phone] Referring Podiatry 08/01/20 Circuit Breaker Mechanic Relationship Specialty Start Date End Date Krishna Reynolds MD [address] [place] [address] PCP - General 08/25/09 Son Deluna [address] [place] [phone] Cardiology 02/08/20 Fabrice Wadsworth MD [address] [place], [place] [phone] Nephrology 02/10/20 Mitchel Aleman [address] [place], [place] [phone] Physician Ophthalmology 03/30/20 Gary Chandler DPM [address] [place] [phone] Referring Podiatry 08/01/20 Team Status: Active Member [...] Dr. Wood Kraus MD Other Provider Active Circuit Breaker Mechanic Relationship Specialty Start Date End Date Krishna Reynolds MD [address] [place] [address] PCP - General 08/25/09 Son Deluna [address] [phone] Cardiology 02/08/20 Fabrice Wadsworth MD [address] [place] [address] Nephrology 02/10/20 Mitchel Aleman [address] [place] [address] Physician Ophthalmology 03/30/20 Gary Chandler DPM [address] [place] [phone] Referring Podiatry 08/01/20 Team Status: Active Member Role Status Dates Dr. Krishna Reynolds MD Primary Care Provider Active Dr. Gucci Sanabria MD Attending Provider Active ULISES Hurst Referring Provider Active Circuit Breaker Mechanic Relationship Specialty Start Date End Date Krishna Reynolds MD [address] [place], [place] [address] PCP - General 08/25/09 Son Deluna [address] [facility] [facility] [address] [place] [address] Cardiology 02/08/20 Fabrice Wadsworth MD [address] [place], [place] [phone] Nephrology 02/10/20 Mitchel Aleman MD [facility] [place], [place] [phone] Physician Ophthalmology 03/30/20 Gary Chandler DPM [address] [place] [phone] Referring Podiatry 08/01/20 Team Status: Inactive Member Role Status Dates Dr. Krishna Reynolds MD Primary Care Provider Active Dr. Wood Kraus MD Attending Provider, Referri ng Provider Active Regulo Stover MD Other Provider Active Circuit Breaker Mechanic Relationship Specialty Start Date End Date Krishna Reynolds MD [address] [place], [place] [id number] PCP - General 08/25/09 Son Deluna MD [address] [facility] [address] [place] [address] Cardiology 02/08/20 Fabrice Wadsworth MD [address] [place] [address] Nephrology 02/10/20 Mitchel Aleman MD [address] [place] [address] Physician Ophthalmology 03/30/20 Gary Chandler DPM [address] [facility] 2 [place] [phone] Referring Podiatry 08/01/20 Team Status: Active Member Role Status Dates Dr. Krishna Reynolds MD Primary Care Provider, Refer ring Provider Active Dr. Ronak Lucio MD Attending Provider Active Team Status: Inactive Member Role Status Dates Dr. Krishna Reynolds MD Primary Care Provider, Refer ring Provider Active Dr. Ronak Lucio MD Attending Provider Active Circuit Breaker Mechanic Relationship Specialty Start Date End Date Krishna Reynolds MD [address] [place] [address] PCP - General 08/25/09 Son Deluna MD [address] [facility] [address] [place] [address] Cardiology 02/08/20 Fabrice Wadsworth MD [address] [place] [address] Nephrology 02/10/20 Mitchel Aleman MD [address] [place] [address] Physician Ophthalmology 03/30/20 Gary Chandler DPM [address] [place] [phone] Referring Podiatry 08/01/20 Circuit Breaker Mechanic Relationship Specialty Start Date End Date Krishna Reynolds MD [address] [place] [address] PCP - General 08/25/09 Son Deluna MD [address] [place] [address] Cardiology 02/08/20 Fabrice Wadsworth MD [address] [place] [id number] Nephrology 02/10/20 Mitchel Aleman MD [address] [place] [address] Physician Ophthalmology 03/30/20 Gary Chandler DPM [address] [place] [phone] Referring Podiatry 08/01/20 Circuit Breaker Mechanic Relationship Specialty Start Date End Date Krishna Reynolds MD [address] [place] [address] PCP - General 08/25/09 Son Deluna MD [address] [place] [address] Cardiology 02/08/20 Fabrice Wadsworth MD [address] [place], [place] [phone] Nephrology 02/10/20 Mitchel Aleman MD [address] [place] [address] Physician Ophthalmology 03/30/20 Gary Chandler DPM [address] [place] [phone] Referring Podiatry 08/01/20 Circuit Breaker Mechanic Relationship Specialty Start Date End Date Krishna Reynolds MD [address] [facility] [address] PCP - General 08/25/09 Son Deluna MD [address] [facility] [facility] [place], [place] [address] Cardiology 02/08/20 Fabrice Wadsworth MD [address] [place] [address] Nephrology 02/10/20 Mitchel Aleman MD [address] [place] [address] Physician Ophthalmology 03/30/20 Gary Chandler DPM [address] [place] [phone] Referring Podiatry 08/01/20 Circuit Breaker Mechanic Relationship Specialty Start Date End Date Krishna Reynolds MD [address] [facility] [address] PCP - General 08/25/09 Son Deluna MD [address] [place] [address] Cardiology 02/08/20 Fabrice Wadsworth MD [address] [place], [place] [phone] Nephrology 02/10/20 Mitchel Aleman MD [address] [place] [address] Physician Ophthalmology 03/30/20 Gary Chandler DPM [address] [place] [phone] Referring Podiatry 08/01/20 Circuit Breaker Mechanic Relationship Specialty Start Date End Date Krishna Reynolds MD [address] [place] [address] PCP - General 08/25/09 Son Deluna MD [address] [place] [address] Cardiology 02/08/20 Fabrice Wadsworth MD [address] [place] [address] Nephrology 02/10/20 Mitchel Aleman MD [address] [place] [address] Physician Ophthalmology 03/30/20 Gary Chandler DPM [address] [place] [phone] Referring Podiatry 08/01/20 Circuit Breaker Mechanic Relationship Specialty Start Date End Date Krishna Reynolds MD [address] [facility] [address] PCP - General 08/25/09 Son Deluna MD [address] [address] Cardiology 02/08/20 Fabrice Wadsworth MD [address] [place] [address] Nephrology 02/10/20 Mitchel Aleman MD [address] [place] [address] Physician Ophthalmology 03/30/20 Gary Chandler DPM [address] [facility] 2 [place] [phone] Referring Podiatry 08/01/20 Circuit Breaker Mechanic Relationship Specialty Start Date End Date Krishna Reynolds MD [address] [facility] [address] PCP - General 08/25/09 Son Deluna MD [address] [place] [address] Cardiology 02/08/20 Fabrice Wadsworth MD [address] [place] [address] Nephrology 02/10/20 Mitchel Aleman MD [address] [place], [place] [address] Physician Ophthalmology 03/30/20 Gary Chandler DPM [address] [place] [phone] Referring Podiatry 08/01/20 Circuit Breaker Mechanic Relationship Specialty Start Date End Date Krishna Reynolds MD [address] [place] [address] PCP - General 08/25/09 Son Deluna MD [address] [place] [address] Cardiology 02/08/20 Fabrice Wadsworth MD [address] [place] [address] Nephrology 02/10/20 Mitchel Aleman MD [address] [place] [address] Physician Ophthalmology 03/30/20 Gary Chandler DPM [address] [place] [phone] Referring Podiatry 08/01/20 Circuit Breaker Mechanic Relationship Specialty Start Date End Date Krishna Reynolds MD [address] [place] [address] PCP - General 08/25/09 Son Deluna MD [address] [place] [address] Cardiology 02/08/20 Fabrice Wadsworth MD [address] [place] [address] Nephrology 02/10/20 Mitchel Aleman MD [address] [place] [address] Physician Ophthalmology 03/30/20 Gary Chandler DPM [address] [place] [phone] Referring Podiatry 08/01/20 Circuit Breaker Mechanic Relationship Specialty Start Date End Date Krishna Reynolds MD [address] [place] [address] PCP - General 08/25/09 Son Deluna MD [address] [place] [address] Cardiology 02/08/20 Fabrice Wadsworth MD [address] [place] [address] Nephrology 02/10/20 Mitchel Aleman MD [address] [place] [address] Physician Ophthalmology 03/30/20 Gary Chandler DPM [address] [place] [phone] Referring Podiatry 08/01/20 Circuit Breaker Mechanic Relationship Specialty Start Date End Date Krishna Reynolds MD [address] [facility] [address] PCP - General 08/25/09 Son Deluna MD [address] [facility] [address] [place] [address] Cardiology 02/08/20 Fabrice Wadsworth MD [address] [place], [place] [phone] Nephrology 02/10/20 Mitchel Aleman MD [address] [place] [address] Physician Ophthalmology 03/30/20 Gary Chandler DPM [address] [place] [phone] Referring Podiatry 08/01/20 Circuit Breaker Mechanic Relationship Specialty Start Date End Date Krishna Reynolds MD [address] [place] [address] PCP - General 08/25/09 Son Deluna MD [address] [facility] [address] [place] [address] Cardiology 02/08/20 Fabrice Wadsworth MD [address] [place] [address] Nephrology 02/10/20 Mitchel Aleman MD [address] [place] [address] Physician Ophthalmology 03/30/20 Gary Chandler DPM [address] [place] [phone] Referring Podiatry 08/01/20 Circuit Breaker Mechanic Relationship Specialty Start Date End Date Krishna Reynolds MD [address] [facility] [address] PCP - General 08/25/09 Son Deluna MD [address] [place] [address] Cardiology 02/08/20 Fabrice Wadsworth MD [address] [place] [phone] Nephrology 02/10/20 Mitchel Aleman MD [address] [facility] [place] [address] Physician Ophthalmology 03/30/20 Gary Chandler DPM [address] [facility] 2 [place] [phone] Referring Podiatry 08/01/20 Circuit Breaker Mechanic Relationship Specialty Start Date End Date Krishna Reynolds MD [address] [facility] [address] PCP - General 08/25/09 Son Deluna MD [address] [place] [address] Cardiology 02/08/20 Fabrice Wadsworth MD [address] [place], [place] [phone] Nephrology 02/10/20 Mitchel Aleman MD [address] [place] [address] Physician Ophthalmology 03/30/20 Gary Chandler DPM [address] [place] [phone] Referring Podiatry 08/01/20 Circuit Breaker Mechanic Relationship Specialty Start Date End Date Krishna Reynolds MD [address] [place] [address] PCP - General 08/25/09 Son Deluna MD [address] [facility] [address] [place], [place] [address] Cardiology 02/08/20 Fabrice Wadsworth MD [address] [place] [address] Nephrology 02/10/20 Mitchel Aleman MD [address] [place] [address] Physician Ophthalmology 03/30/20 Gary Chandler DPM [address] [place] [phone] Referring Podiatry 08/01/20 Circuit Breaker Mechanic Relationship Specialty Start Date End Date Krishna Reynolds MD [address] [place] [address] PCP - General 08/25/09 Son Deluna MD [address] [facility] [address] [place] [address] Cardiology 02/08/20 Fabrice Wadsworth MD [address] [place], [place] [phone] Nephrology 02/10/20 Mitchel Aleman MD [address] [place], [place] 7500[address] Physician Ophthalmology 03/30/20 Gary Chandler DPM [address] [facility] 2 [place] [phone] Referring Podiatry 08/01/20 Circuit Breaker Mechanic Relationship Specialty Start Date End Date Krishna Reynolds MD [address] [place] [address] PCP - General 08/25/09 Son Deluna MD [address] [address] Cardiology 02/08/20 Fabrice Wadsworth MD [address] [place] [address] Nephrology 02/10/20 Mitchel Aleman MD [address] [place] [address] Physician Ophthalmology 03/30/20 Circuit Breaker Mechanic Relationship Specialty Start Date End Date Krishna Reynolds MD [address] [place] [address] PCP - General 08/25/09 Son Deluna MD [address] [facility] [address] [place] [address] Cardiology 02/08/20 Fabrice Wadsworth MD [address] [place], [place] [phone] Nephrology 02/10/20 Mitchel Aleman MD [address] [place] [address] Physician Ophthalmology 03/30/20 Gary Chandler DPM [address]373 [facility] 2 [place] [phone] Referring Podiatry 08/01/20 Circuit Breaker Mechanic Relationship Specialty Start Date End Date Krishna Reynolds MD [address] [place] [address] PCP - General 08/25/09 Son Deluna MD [facility] [facility] [address] [address] Cardiology 02/08/20 Fabrice Wadsworth MD [address] [place], [place] [phone]- Nephrology 02/10/20 Mitchel Aleman MD [address] [place] [address] Physician Ophthalmology 03/30/20 Gary Chandler DPM [address] [place] [phone] Referring Podiatry 08/01/20 Circuit Breaker Mechanic Relationship Specialty Start Date End Date Krishna Reynolds MD [address] [place], [place] 229891 PCP - General 08/25/09 Son Deluna MD [address] [place], [place] [address] Cardiology 02/08/20 Fabrice Wadsworth MD [address] [place] [phone] Nephrology 02/10/20 Mitchel Aleman MD [address] [place] [address] Physician Ophthalmology 03/30/20 Gary Chandler DPM [address] [place] [phone] Referring Podiatry 08/01/20 Leila Suárez, 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 [address] [place] [address] Director [employer] Internal Medicine 03/02/24 Circuit Breaker Mechanic Relationship Specialty Start Date End Date Krishna Reynolds MD [address] [place] [address] PCP - General 08/25/09 Son Deluna MD [address] [place] [address] Cardiology 02/08/20 Fabrice Wadsworth MD [address] [place], [place] [id number]- Nephrology 02/10/20 Mitchel Aleman MD [address] [place] [address] Physician Ophthalmology 03/30/20 Gary Chandler DPM [address] [place] [phone] Referring Podiatry 08/01/20 Leila Suárez, 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 [address] [place] [address] Director [employer] Internal Medicine 03/02/24 Circuit Breaker Mechanic Relationship Specialty Start Date End Date Krishna Reynolds MD [address] [place] [address] PCP - General 08/25/09 Son Deluna MD [address] [place] [address] Cardiology 02/08/20 Fabrice Wadsworth MD [address] [place], [place] [id number]- Nephrology 02/10/20 Mitchel Aleman MD [address] [place] [address] Physician Ophthalmology 03/30/20 Gary Chandler DPM [address] [place] [phone] Referring Podiatry 08/01/20 Leila Suárez, 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 [address] [place], [place] 440671 Director Digital [employer] Internal Medicine 03/02/24 Circuit Breaker Mechanic Relationship Specialty Start Date End Date Krishna Reynolds MD [address] [place], [place] 582701 PCP - General 08/25/09 Son Deluna MD [address]61 [facility] [address] [place], [place] [address] Cardiology 02/08/20 Fabrice Wadsworth MD [address] [place] [address] Nephrology 02/10/20 Mitchel Aleman MD [address] [place], [place] 642881 Physician Ophthalmology 03/30/20 Gary Chandler DPM [address] [place] [phone] Referring Podiatry 08/01/20 Leila Suárez, 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 [address] [place], [place] [address]133[address] Director [employer] Internal Medicine 03/02/24 Team Status: Active Member [...] June 18, 2024 End: June 22, 2024 Circuit Breaker Mechanic Relationship Specialty Start Date End Date Krishna Reynolds MD [address] [place] [address] PCP - General 08/25/09 Son Deluna MD [address]61 [facility] [address] [place], [place] 022491 Cardiology 02/08/20 Fabrice Wadsworth MD [address] [place] [address] Nephrology 02/10/20 Mitchel Aleman MD [address] [place], [place] 464111 Physician Ophthalmology 03/30/20 Gary Chandler DPM [address]373 [facility] 2 [place] [phone] Referring Podiatry 08/01/20 Leila Suárez, 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 [address] [place], [place] [address]301 Director Digital [employer] Internal Medicine 03/02/24 Circuit Breaker Mechanic Relationship Specialty Start Date End Date Krishna Reynolds MD [address] [place] [address] PCP - General 08/25/09 Son Deluna MD [address] [place], [place] 4[address] Cardiology 02/08/20 Fabrice Wadsworth MD [address] [place] [address] Nephrology 02/10/20 Mitchel Aleman MD [address] [place], [place] 300291 Physician Ophthalmology 03/30/20 Gary Chandler DPM [address] [place] [phone] Referring Podiatry 08/01/20 Leila Suárez, 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 [address] [place] [address] Director Digital [employer] Internal Medicine 03/02/24 Team Status: Inactive Member [...] September 17, 2024 End: September 21, 2024 Circuit Breaker Mechanic Relationship Specialty Start Date End Date Krishna Reynolds MD [address] [place] [address] PCP - General 08/25/09 Son Deluna MD [address]61 [facility] [address] [place], [place] [address]651 Cardiology 02/08/20 Fabrice Wadsworth MD [address] [place] [address] Nephrology 02/10/20 Mitchel Aleman MD [address] [place], [place] 182371 Physician Ophthalmology 03/30/20 Gary Chandler DPM [address] [facility] 2 [place] [phone] Referring Podiatry 08/01/20 Leila Suárez, 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 [address] [place] [address] Director Digital [employer] Internal Medicine 03/02/24 Circuit Breaker Mechanic Relationship Specialty Start Date End Date Krishna Reynolds MD [address] [place] [address] PCP - General 08/25/09 Son Deluna MD [address] [facility] [address] [place], [place] 7[address]11 Cardiology 02/08/20 Fabrice Wadsworth MD [address] [place] [address] Nephrology 02/10/20 Mitchel Aleman MD [address] [place] [address] Physician Ophthalmology 03/30/20 Gary Chandler DPM [address] [facility] 2 [place] [phone] Referring Podiatry 08/01/20 Leila Suárez, 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 [address] [place] [address] Director Digital [employer] Internal Medicine 03/02/24 Circuit Breaker Mechanic Relationship Specialty Start Date End Date Krishna Reynolds MD [address] [place] [address] PCP - General 08/25/09 Son Deluna MD [address] [facility] [address] [place] [address] Cardiology 02/08/20 Fabrice Wadsworth MD [address] [place], [place] [phone] Nephrology 02/10/20 iMtchel Aleman MD [address] [place], [place] 744391 Physician Ophthalmology 03/30/20 Gary Chandler DPM [address] [facility] 2 [place] [phone] Referring Podiatry 08/01/20 Leila Suárez, 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 [address] [place] [address] Director Digital [employer] Internal Medicine 03/02/24 Circuit Breaker Mechanic Relationship Specialty Start Date End Date Krishna Reynolds MD [address] [place] [address] PCP - General 08/25/09 Son Delnua MD [address] [facility] [address] [address] Cardiology 02/08/20 Fabrcie Wadsworth MD [address] [place] [address] Nephrology 02/10/20 Mitchel Aleman MD [address] [place] [address] Physician Ophthalmology 03/30/20 Gary Chandler DPM [address] [place] [phone] Referring Podiatry 08/01/20 Leila Suárez, 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 [address] [place] [address] Director [employer] Internal Medicine 03/02/24 Team Status: Inactive Member [...] November 19, 2024 End: November 22, 2024 Circuit Breaker Mechanic Relationship Specialty Start Date End Date Krishna Reynolds MD [address] [place] [address] PCP - General 08/25/09 Son Deluna MD [address] [facility] [place], [place] [address] Cardiology 02/08/20 Fabrice Wadsworth MD [address] [place], [place] [phone] Nephrology 02/10/20 Mitchel Aleman MD [address] [place], [place] 671811 Physician Ophthalmology 03/30/20 Gary Chandler DPM [address] [facility] 2 [place] [phone] Referring Podiatry 08/01/20 Leila Suárez, 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 [address] [place] [address] Director [employer] Internal Medicine 03/02/24 Team Status: Active Member [...] BE BASED ON THE PRIMARY CLINICAL RECORDS. [facility] [employer] provides no warranty or guarantee of the accuracy or completeness of information in this document.
[2025-03-23 07:05] LABS: Uric Acid 7.2 mg/dL (3.5-7.2)
== END | disposition home or self-care (01) ==
PROVIDERS: PCP Internal Medicine; Referring Provider Internal Medicine; Visit Provider Internal Medicine
DX: M1A.9XX1 Chronic gout, unspecified, with tophus (tophi) (principal)
CPT/HCPCS: 36415; 84550